=== PATIENT | female | born 2000 | race Two or more races ===

== ENCOUNTER 2025-04-07 12:50 | Inpatient (IN) | payer SELFPAY ==
[2025-04-07 13:14] VITALS: BP 123/82; PULSE 94; RESP 18; TEMP 36.5; O2SAT 95; BMI 14.7
[2025-04-07 16:00] VITALS: PULSE 120; RESP 18; O2SAT 98
[2025-04-07] MEDS: Heparin Injection (Vial) 5,000 UNIT/ML VIAL 5000 UNIT SC (16:08)
[2025-04-07] MEDS: NYSTATIN 500,000 UNIT/5 ML UDC 500000 UNIT PO (16:13)
[2025-04-07] MEDS: Jevity 1.5 1,000 ML 45 ML GT (16:29)
[2025-04-07 21:37] VITALS: BP 112/84; PULSE 140
[2025-04-07] MEDS: Senna/Docusate Sodium 1 Tablet 2 TABLET GT (21:38)
[2025-04-07] MEDS: AMANTADINE HCL 50 MG/5ML 100 MG GT (21:38)
[2025-04-07] MEDS: levETIRAcetam Oral Solution 500 MG/5 ML GT (21:39)
[2025-04-07] MEDS: MELATONIN 10 MG TABLET GT (21:44)
[2025-04-07 22:00] VITALS: BP 112/84; PULSE 140
[2025-04-07] MEDS: CARBOXYMETHYLCELLULOSE SODIUM 15 ML OPHTH DROPS 1 DRP EACH EYE (22:15)
[2025-04-08] MEDS: NYSTATIN 500,000 UNIT/5 ML UDC 500000 UNIT PO ×4 (00:16→17:26)
[2025-04-08 06:12] LABS: Hematocrit 34.6 % (37-47); Hemoglobin 11.7 g/dL (12.0-15.0); Immature Granulocytes Count 0.090 X10^3/uL (0.0-0.0); Mean Corp Hgb Conc 33.8 g/dL (32-36); Mean Corpuscular Volume 88.0 fL (81-99); Mean Platelet Vol. 11.3 fl (6.2-12.0); NRBC Flagged by Analyzer 0 % (0-5); Platelet Count 267 K/mm3 (150-450); RBC Distribution Width CV 13.0 % (11.6-14.6); RBC Distribution Width SD 42.3 fl (35.1-43.9); Red Blood Count 3.93 M/mm3 (4.2-5.4); White Blood Count 11.4 K/mm3 (4.4-11.0)
[2025-04-08 06:58] LABS: Anion Gap 14 (5-15); BUN 14 mg/dL (4-19); BUN/Creat Ratio 32.9 RATIO (10-20); Calcium,Total 9.5 mg/dL (7.6-11.0); Carbon Dioxide 25.4 mmol/L (21.0-32.0); Chloride 98 mmol/L (98-108); Estimated Creatinine Clearance 130.86 ml/min (50-250); Glucose 124 mg/dL (70-99); Potassium 4.0 mmol/L (3.3-5.1)
[2025-04-08 10:34] VITALS: BP 108/72; PULSE 56; RESP 16; TEMP 36.9; O2SAT 98
[2025-04-08] MEDS: Zinc Sulfate 50 mg zinc (220 mg) ORAL capsule GT (10:44)
[2025-04-08] MEDS: Senna/Docusate Sodium 1 Tablet 2 TABLET GT ×2 (10:44→21:22)
[2025-04-08 10:45] VITALS: PULSE 56
[2025-04-08] MEDS: levETIRAcetam Oral Solution 500 MG/5 ML GT ×2 (10:45→21:22)
[2025-04-08] MEDS: Vitamin B Comp W-C Capsule 1 CAP GT (10:45)
[2025-04-08] MEDS: AMANTADINE HCL 50 MG/5ML 100 MG GT ×2 (10:45→21:22)
[2025-04-08] MEDS: Thiamine Hydrochloride 100 MG Tablet GT (10:45)
[2025-04-08] MEDS: Tuberculin,Purif.prot.deriv. 50 TU/ML Vial 0.1 ML ID (10:46)
[2025-04-08] MEDS: Jevity 1.5 1,000 ML 45 ML GT (17:26)
[2025-04-08] MEDS: MELATONIN 10 MG TABLET GT (21:22)
[2025-04-08 21:23] VITALS: BP 139/100; PULSE 142
[2025-04-08 21:50] VITALS: BP 139/100; PULSE 142
[2025-04-08 22:03] VITALS: PULSE 145; RESP 16; O2SAT 99
[2025-04-09] VITALS (7 sets, daily range): BP systolic 114–130; BP diastolic 72–99; PULSE 75–149; RESP 15–17; TEMP 36.7–38.4; O2SAT 96–98
[2025-04-09] MEDS: Zinc Sulfate 50 mg zinc (220 mg) ORAL capsule GT (10:08)
[2025-04-09] MEDS: Thiamine Hydrochloride 100 MG Tablet GT (10:08)
[2025-04-09] MEDS: Vitamin B Comp W-C Capsule 1 CAP GT (10:08)
[2025-04-09] MEDS: AMANTADINE HCL 50 MG/5ML 100 MG GT ×2 (10:09→21:03)
[2025-04-09] MEDS: levETIRAcetam Oral Solution 500 MG/5 ML GT ×2 (10:09→21:03)
[2025-04-09] MEDS: Senna/Docusate Sodium 1 Tablet 2 TABLET GT (10:10)
[2025-04-09 12:04] LABS: Hematocrit 33.6 % (37-47); Hemoglobin 11.4 g/dL (12.0-15.0); Immature Granulocytes Count 0.110 X10^3/uL (0.0-0.0); Mean Corp Hgb Conc 33.9 g/dL (32-36); Mean Corpuscular Volume 86.2 fL (81-99); Mean Platelet Vol. 10.9 fl (6.2-12.0); NRBC Flagged by Analyzer 0 % (0-5); Platelet Count 325 K/mm3 (150-450); RBC Distribution Width CV 12.8 % (11.6-14.6); RBC Distribution Width SD 39.9 fl (35.1-43.9); Red Blood Count 3.90 M/mm3 (4.2-5.4); White Blood Count 10.1 K/mm3 (4.4-11.0)
[2025-04-09] MEDS: CARBOXYMETHYLCELLULOSE SODIUM 15 ML OPHTH DROPS 1 DRP EACH EYE ×2 (12:07→21:25)
[2025-04-09 12:28] LABS: Mucous, Urine 0 SEEN /hpf (<or=2+); Red Blood Cells-Urine 0 SEEN /hpf (0-5); Squamous Epithelial Cells - UA 0 SEEN /hpf (5-10)
[2025-04-09 12:33] LABS: Color, Urine Yellow (Yellow); Glucose, Dipstick Normal (Normal); Ketone-Dipstick Negative (Negative); Leukocyte Esterase-Dipstick Negative /ul (Negative); Nitrite-Dipstick Positive (Negative); Occult Blood-Urine Negative /ul (Negative); Protein-Dipstick 15 mg/dl (Negative); Specific Gravity, Urine 1.010 (1.002-1.030); Urine Bilirubin Dipstick Negative (Negative)
[2025-04-09] MEDS: 0.9% Saline Lock 10 ML Syringe IV ×2 (12:43→21:03)
[2025-04-09] MEDS: Ampicillin/Sulbactam 3 GM in 0.9% Normal Saline (100mL MB+) 100 ML IV ×2 (12:43→17:48)
[2025-04-09] MEDS: 0.9% Normal Saline (250mL Bag) 250 ML 15 ML IV (12:44)
[2025-04-09 13:07] LABS: Anion Gap 13 (5-15); BUN 14 mg/dL (4-19); BUN/Creat Ratio 29.9 RATIO (10-20); Calcium,Total 9.5 mg/dL (7.6-11.0); Carbon Dioxide 25.4 mmol/L (21.0-32.0); Chloride 95 mmol/L (98-108); Estimated Creatinine Clearance 122.51 ml/min (50-250); Glucose 130 mg/dL (70-99); Potassium 3.8 mmol/L (3.3-5.1)
[2025-04-09] MEDS: Jevity 1.5 1,000 ML 45 ML GT (15:38)
[2025-04-09] MEDS: MELATONIN 10 MG TABLET GT (21:05)
[2025-04-10] MEDS: 0.9% Saline Lock 10 ML Syringe IV ×4 (00:01→18:12)
[2025-04-10] MEDS: Ampicillin/Sulbactam 3 GM in 0.9% Normal Saline (100mL MB+) 100 ML IV ×4 (00:30→18:12)
[2025-04-10] MEDS: levETIRAcetam Oral Solution 500 MG/5 ML GT ×2 (09:41→20:10)
[2025-04-10] MEDS: AMANTADINE HCL 50 MG/5ML 100 MG GT ×2 (09:41→20:10)
[2025-04-10] MEDS: Zinc Sulfate 50 mg zinc (220 mg) ORAL capsule GT (09:41)
[2025-04-10] MEDS: Thiamine Hydrochloride 100 MG Tablet GT (09:41)
[2025-04-10] MEDS: Vitamin B Comp W-C Capsule 1 CAP GT (09:42)
[2025-04-10 09:43] VITALS: PULSE 150
[2025-04-10] MEDS: Senna/Docusate Sodium 1 Tablet 2 TABLET GT ×2 (09:50→20:17)
[2025-04-10 11:00] VITALS: BP 150/95; RESP 14; TEMP 37.1; O2SAT 97
[2025-04-10] MEDS: Jevity 1.5 1,000 ML 45 ML GT (14:07)
[2025-04-10 14:54] VITALS: BP 125/85; PULSE 118
[2025-04-10 20:05] VITALS: BP 130/92; PULSE 150; RESP 17; O2SAT 96
[2025-04-10 20:10] VITALS: BP 130/92; PULSE 150
[2025-04-10] MEDS: MELATONIN 10 MG TABLET GT (20:11)
[2025-04-10] MEDS: CARBOXYMETHYLCELLULOSE SODIUM 15 ML OPHTH DROPS 1 DRP EACH EYE (20:12)
[2025-04-11] MEDS: 0.9% Saline Lock 10 ML Syringe IV ×4 (00:01→20:10)
[2025-04-11] MEDS: Ampicillin/Sulbactam 3 GM in 0.9% Normal Saline (100mL MB+) 100 ML IV ×2 (00:03→05:35)
[2025-04-11 00:13] VITALS: PULSE 147; RESP 16; O2SAT 96
[2025-04-11] MEDS: Vitamin B Comp W-C Capsule 1 CAP GT (09:26)
[2025-04-11] MEDS: levETIRAcetam Oral Solution 500 MG/5 ML GT ×2 (09:26→20:08)
[2025-04-11 09:27] VITALS: BP 136/88; PULSE 150
[2025-04-11] MEDS: Zinc Sulfate 50 mg zinc (220 mg) ORAL capsule GT (09:28)
[2025-04-11] MEDS: Thiamine Hydrochloride 100 MG Tablet GT (09:28)
[2025-04-11] MEDS: AMANTADINE HCL 50 MG/5ML 100 MG GT ×2 (09:29→20:07)
[2025-04-11] MEDS: Senna/Docusate Sodium 1 Tablet 2 TABLET GT (09:42)
[2025-04-11 10:54] VITALS: BP 136/88; PULSE 150; RESP 14; TEMP 37.5; O2SAT 93
[2025-04-11 17:36] VITALS: PULSE 150
[2025-04-11] MEDS: Jevity 1.5 1,000 ML 45 ML GT (18:19)
[2025-04-11 20:05] VITALS: BP 122/77; PULSE 119; RESP 16
[2025-04-11 20:08] VITALS: BP 122/77; PULSE 119
[2025-04-11] MEDS: MELATONIN 10 MG TABLET GT (20:08)
[2025-04-12 10:30] VITALS: BP 132/83; PULSE 144; RESP 18; TEMP 36.8; O2SAT 95
[2025-04-12] MEDS: Smx/Tmp Suspension 20 ML/UDC UDC GT ×2 (10:35→22:59)
[2025-04-12] MEDS: levETIRAcetam Oral Solution 500 MG/5 ML GT ×2 (10:35→23:00)
[2025-04-12] MEDS: Vitamin B Comp W-C Capsule 1 CAP GT (10:35)
[2025-04-12] MEDS: AMANTADINE HCL 50 MG/5ML 100 MG GT ×2 (10:37→22:59)
[2025-04-12 10:38] VITALS: BP 132/83; PULSE 144
[2025-04-12] MEDS: Zinc Sulfate 50 mg zinc (220 mg) ORAL capsule GT (10:39)
[2025-04-12] MEDS: Thiamine Hydrochloride 100 MG Tablet GT (10:39)
[2025-04-12] MEDS: Fluconazole Suspension 40 MG/ML 35 ML Bottle 100 MG GT (10:54)
[2025-04-12] MEDS: 0.9% Saline Lock 10 ML Syringe IV ×2 (11:38→23:01)
[2025-04-12 12:00] VITALS: PULSE 110; O2SAT 95
[2025-04-12 15:00] VITALS: PULSE 110; RESP 18; O2SAT 95
[2025-04-12] MEDS: Jevity 1.5 1,000 ML 45 ML GT (18:32)
[2025-04-12] MEDS: CARBOXYMETHYLCELLULOSE SODIUM 15 ML OPHTH DROPS 1 DRP EACH EYE (18:45)
[2025-04-12 22:41] VITALS: BP 132/88; PULSE 149
[2025-04-12 23:00] VITALS: PULSE 149
[2025-04-12] MEDS: MELATONIN 10 MG TABLET GT (23:00)
[2025-04-13] VITALS (9 sets, daily range): BP systolic 110–125; BP diastolic 76–92; PULSE 110–139; RESP 16–17; TEMP 36.8–37; O2SAT 96–98
[2025-04-13] MEDS: Acetaminophen 650 MG/20 ML UDC GT (00:54)
[2025-04-13] MEDS: levETIRAcetam Oral Solution 500 MG/5 ML GT (09:47)
[2025-04-13] MEDS: Vitamin B Comp W-C Capsule 1 CAP GT (09:48)
[2025-04-13] MEDS: Thiamine Hydrochloride 100 MG Tablet GT (09:48)
[2025-04-13] MEDS: AMANTADINE HCL 50 MG/5ML 100 MG GT ×2 (09:48→21:51)
[2025-04-13] MEDS: Fluconazole Suspension 40 MG/ML 35 ML Bottle 100 MG GT (09:48)
[2025-04-13] MEDS: Zinc Sulfate 50 mg zinc (220 mg) ORAL capsule GT (09:49)
[2025-04-13] MEDS: Smx/Tmp Suspension 20 ML/UDC UDC GT ×2 (09:54→21:51)
[2025-04-13] MEDS: Jevity 1.5 1,000 ML 45 ML GT (18:14)
[2025-04-13] MEDS: levETIRAcetam Oral Solution 500 MG/5 ML 250 MG GT (21:51)
[2025-04-13] MEDS: MELATONIN 10 MG TABLET GT (21:52)
[2025-04-13] MEDS: CARBOXYMETHYLCELLULOSE SODIUM 15 ML OPHTH DROPS 1 DRP EACH EYE (21:53)
[2025-04-14 01:58] VITALS: PULSE 110; RESP 16; O2SAT 98
[2025-04-14] MEDS: AMANTADINE HCL 50 MG/5ML 100 MG GT ×2 (09:55→21:05)
[2025-04-14] MEDS: Fluconazole Suspension 40 MG/ML 35 ML Bottle 100 MG GT (09:57)
[2025-04-14] MEDS: Smx/Tmp Suspension 20 ML/UDC UDC GT ×2 (09:57→21:06)
[2025-04-14 09:59] VITALS: BP 116/79; PULSE 118
[2025-04-14] MEDS: levETIRAcetam Oral Solution 500 MG/5 ML 250 MG GT ×2 (09:59→21:06)
[2025-04-14 14:05] VITALS: BP 116/79; PULSE 118; RESP 18; TEMP 36.6; O2SAT 95
[2025-04-14] MEDS: Jevity 1.5 1,000 ML 45 ML GT (18:50)
[2025-04-14 21:07] VITALS: BP 109/73; PULSE 119
[2025-04-14] MEDS: MELATONIN 10 MG TABLET GT (21:07)
[2025-04-15 07:05] LABS: Hematocrit 37.3 % (37-47); Hemoglobin 12.4 g/dL (12.0-15.0); Immature Granulocytes Count 0.290 X10^3/uL (0.0-0.0); Mean Corp Hgb Conc 33.2 g/dL (32-36); Mean Corpuscular Volume 87.6 fL (81-99); Mean Platelet Vol. 10.3 fl (6.2-12.0); NRBC Flagged by Analyzer 0 % (0-5); Platelet Count 476 K/mm3 (150-450); RBC Distribution Width CV 13.0 % (11.6-14.6); RBC Distribution Width SD 41.0 fl (35.1-43.9); Red Blood Count 4.26 M/mm3 (4.2-5.4); White Blood Count 9.8 K/mm3 (4.4-11.0)
[2025-04-15 07:34] LABS: Anion Gap 14 (5-15); BUN 18 mg/dL (4-19); BUN/Creat Ratio 34.7 RATIO (10-20); Calcium,Total 9.5 mg/dL (7.6-11.0); Carbon Dioxide 23.0 mmol/L (21.0-32.0); Chloride 99 mmol/L (98-108); Estimated Creatinine Clearance 108.64 ml/min (50-250); Glucose 195 mg/dL (70-99); Potassium 3.8 mmol/L (3.3-5.1)
[2025-04-15] MEDS: Tuberculin,Purif.prot.deriv. 50 TU/ML Vial 0.1 ML ID (08:52)
[2025-04-15] MEDS: levETIRAcetam Oral Solution 500 MG/5 ML 250 MG GT ×2 (10:31→20:51)
[2025-04-15 10:32] VITALS: BP 126/88; PULSE 143
[2025-04-15] MEDS: Smx/Tmp Suspension 20 ML/UDC UDC GT ×2 (10:33→20:51)
[2025-04-15] MEDS: Fluconazole Suspension 40 MG/ML 35 ML Bottle 100 MG GT (10:36)
[2025-04-15 11:05] VITALS: BP 126/88; PULSE 143; RESP 18; TEMP 36.6; O2SAT 96
[2025-04-15 12:00] VITALS: BP 108/79; PULSE 101
[2025-04-15] MEDS: Sodium Chloride 0.65% 1 SPRAY SPRAY.BTL 2 SPRAY NASAL (14:01)
[2025-04-15 20:45] VITALS: BP 122/85; PULSE 124; RESP 16; O2SAT 98
[2025-04-15 20:53] VITALS: BP 122/85; PULSE 124
[2025-04-15] MEDS: MELATONIN 10 MG TABLET GT (20:54)
[2025-04-15] MEDS: CARBOXYMETHYLCELLULOSE SODIUM 15 ML OPHTH DROPS 1 DRP EACH EYE (20:55)
[2025-04-15 21:00] VITALS: PULSE 124; RESP 16; O2SAT 98
[2025-04-15] MEDS: Jevity 1.5 1,000 ML 45 ML GT (23:48)
[2025-04-16 05:32] LABS: Hematocrit 38.4 % (37-47); Hemoglobin 12.8 g/dL (12.0-15.0); Immature Granulocytes Count 0.230 X10^3/uL (0.0-0.0); Mean Corp Hgb Conc 33.3 g/dL (32-36); Mean Corpuscular Volume 87.5 fL (81-99); Mean Platelet Vol. 10.2 fl (6.2-12.0); NRBC Flagged by Analyzer 0 % (0-5); Platelet Count 493 K/mm3 (150-450); RBC Distribution Width CV 12.9 % (11.6-14.6); RBC Distribution Width SD 41.1 fl (35.1-43.9); Red Blood Count 4.39 M/mm3 (4.2-5.4); White Blood Count 10.6 K/mm3 (4.4-11.0)
[2025-04-16 05:54] LABS: Anion Gap 13 (5-15); BUN 18 mg/dL (4-19); BUN/Creat Ratio 37.4 RATIO (10-20); Calcium,Total 9.4 mg/dL (7.6-11.0); Carbon Dioxide 25.5 mmol/L (21.0-32.0); Chloride 99 mmol/L (98-108); Estimated Creatinine Clearance 119.96 ml/min (50-250); Glucose 212 mg/dL (70-99); Potassium 3.9 mmol/L (3.3-5.1)
[2025-04-16 10:00] VITALS: BP 115/82; PULSE 129; RESP 18; TEMP 36.8; O2SAT 92
[2025-04-16] MEDS: CARBOXYMETHYLCELLULOSE SODIUM 15 ML OPHTH DROPS 1 DRP EACH EYE ×2 (10:36→21:11)
[2025-04-16] MEDS: Fluconazole Suspension 40 MG/ML 35 ML Bottle 100 MG GT (10:39)
[2025-04-16] MEDS: levETIRAcetam Oral Solution 500 MG/5 ML 250 MG GT ×2 (10:39→21:09)
[2025-04-16] MEDS: Smx/Tmp Suspension 20 ML/UDC UDC GT ×2 (10:39→21:09)
[2025-04-16 10:40] VITALS: BP 115/82; PULSE 129
[2025-04-16] MEDS: Senna/Docusate Sodium 1 Tablet 2 TABLET GT ×2 (10:50→21:15)
[2025-04-16 11:00] VITALS: PULSE 111; RESP 18; O2SAT 92
[2025-04-16 16:00] VITALS: PULSE 111
[2025-04-16 21:05] VITALS: BP 119/79; PULSE 110; RESP 16; O2SAT 98
[2025-04-16 21:10] VITALS: BP 119/79; PULSE 110
[2025-04-16] MEDS: MELATONIN 10 MG TABLET GT (21:11)
[2025-04-17] MEDS: Jevity 1.5 1,000 ML 45 ML GT (04:22)
[2025-04-17 06:39] LABS: Hematocrit 39.6 % (37-47); Hemoglobin 13.2 g/dL (12.0-15.0); Immature Granulocytes Count 0.230 X10^3/uL (0.0-0.0); Mean Corp Hgb Conc 33.3 g/dL (32-36); Mean Corpuscular Volume 88.0 fL (81-99); Mean Platelet Vol. 10.4 fl (6.2-12.0); NRBC Flagged by Analyzer 0 % (0-5); Platelet Count 467 K/mm3 (150-450); RBC Distribution Width CV 13.0 % (11.6-14.6); RBC Distribution Width SD 41.8 fl (35.1-43.9); Red Blood Count 4.50 M/mm3 (4.2-5.4); White Blood Count 10.7 K/mm3 (4.4-11.0)
[2025-04-17 06:58] LABS: Anion Gap 12 (5-15); BUN 20 mg/dL (4-19); BUN/Creat Ratio 42.7 RATIO (10-20); Calcium,Total 9.8 mg/dL (7.6-11.0); Carbon Dioxide 27.1 mmol/L (21.0-32.0); Chloride 99 mmol/L (98-108); Estimated Creatinine Clearance 122.51 ml/min (50-250); Glucose 200 mg/dL (70-99); Potassium 4.4 mmol/L (3.3-5.1)
[2025-04-17 09:41] VITALS: BP 122/82; PULSE 117; RESP 18; TEMP 36.3; O2SAT 96
[2025-04-17] MEDS: Senna/Docusate Sodium 1 Tablet 2 TABLET GT ×2 (09:42→21:28)
[2025-04-17 09:44] VITALS: PULSE 117
[2025-04-17] MEDS: Fluconazole Suspension 40 MG/ML 35 ML Bottle 100 MG GT (09:44)
[2025-04-17 21:00] VITALS: PULSE 119; O2SAT 94
[2025-04-17 21:27] VITALS: BP 117/84; PULSE 119
[2025-04-17 21:29] VITALS: PULSE 119
[2025-04-17] MEDS: MELATONIN 10 MG TABLET GT (21:30)
[2025-04-18] MEDS: Jevity 1.5 1,000 ML 45 ML GT (03:35)
[2025-04-18 05:58] LABS: Hematocrit 38.5 % (37-47); Hemoglobin 13.1 g/dL (12.0-15.0); Immature Granulocytes Count 0.150 X10^3/uL (0.0-0.0); Mean Corp Hgb Conc 34.0 g/dL (32-36); Mean Corpuscular Volume 87.1 fL (81-99); Mean Platelet Vol. 10.2 fl (6.2-12.0); NRBC Flagged by Analyzer 0 % (0-5); Platelet Count 434 K/mm3 (150-450); RBC Distribution Width CV 12.9 % (11.6-14.6); RBC Distribution Width SD 40.6 fl (35.1-43.9); Red Blood Count 4.42 M/mm3 (4.2-5.4); White Blood Count 10.2 K/mm3 (4.4-11.0)
[2025-04-18 06:23] LABS: Anion Gap 11 (5-15); BUN 17 mg/dL (4-19); BUN/Creat Ratio 42.1 RATIO (10-20); Calcium,Total 9.4 mg/dL (7.6-11.0); Carbon Dioxide 27.6 mmol/L (21.0-32.0); Chloride 96 mmol/L (98-108); Estimated Creatinine Clearance 147.64 ml/min (50-250); Glucose 162 mg/dL (70-99); Potassium 3.8 mmol/L (3.3-5.1)
[2025-04-18 10:00] VITALS: BP 116/82; PULSE 107; RESP 18; TEMP 36.4; O2SAT 96
[2025-04-18 10:02] VITALS: PULSE 107
[2025-04-18] MEDS: Fluconazole Suspension 40 MG/ML 35 ML Bottle 100 MG GT (10:02)
[2025-04-18] MEDS: Senna/Docusate Sodium 1 Tablet 2 TABLET GT ×2 (10:03→21:12)
[2025-04-18 21:10] VITALS: BP 125/84; PULSE 115
[2025-04-18 21:11] VITALS: PULSE 115
[2025-04-18] MEDS: MELATONIN 3 MG TABLET GT (21:11)
[2025-04-19] MEDS: Jevity 1.5 1,000 ML 45 ML GT (02:18)
[2025-04-19 06:28] LABS: Hematocrit 39.6 % (37-47); Hemoglobin 13.0 g/dL (12.0-15.0); Immature Granulocytes Count 0.140 X10^3/uL (0.0-0.0); Mean Corp Hgb Conc 32.8 g/dL (32-36); Mean Corpuscular Volume 87.8 fL (81-99); Mean Platelet Vol. 10.3 fl (6.2-12.0); NRBC Flagged by Analyzer 0 % (0-5); Platelet Count 409 K/mm3 (150-450); RBC Distribution Width CV 12.9 % (11.6-14.6); RBC Distribution Width SD 41.5 fl (35.1-43.9); Red Blood Count 4.51 M/mm3 (4.2-5.4); White Blood Count 9.7 K/mm3 (4.4-11.0)
[2025-04-19 07:03] LABS: Anion Gap 12 (5-15); BUN 15 mg/dL (4-19); BUN/Creat Ratio 37.7 RATIO (10-20); Calcium,Total 9.6 mg/dL (7.6-11.0); Carbon Dioxide 29.2 mmol/L (21.0-32.0); Chloride 97 mmol/L (98-108); Estimated Creatinine Clearance 140.44 ml/min (50-250); Glucose 164 mg/dL (70-99); Potassium 3.9 mmol/L (3.3-5.1)
[2025-04-19 09:04] VITALS: PULSE 111
[2025-04-19] MEDS: CARBOXYMETHYLCELLULOSE SODIUM 15 ML OPHTH DROPS 1 DRP EACH EYE (09:12)
[2025-04-19 09:15] VITALS: BP 115/76; PULSE 111; RESP 17; TEMP 36.3; O2SAT 100
[2025-04-19 10:00] VITALS: PULSE 110
[2025-04-19 20:05] VITALS: BP 122/85; PULSE 129; RESP 16; O2SAT 99
[2025-04-19 20:07] VITALS: BP 122/85; PULSE 129
[2025-04-19] MEDS: MELATONIN 3 MG TABLET GT (20:07)
[2025-04-19] MEDS: Senna/Docusate Sodium 1 Tablet 2 TABLET GT (20:12)
[2025-04-20] MEDS: Jevity 1.5 1,000 ML 45 ML GT (06:25)
[2025-04-20 10:08] VITALS: BP 123/80; PULSE 130
[2025-04-20] MEDS: Fluconazole Suspension 40 MG/ML 35 ML Bottle 200 MG GT (10:14)
[2025-04-20 10:25] VITALS: BP 123/80; PULSE 130; RESP 16; TEMP 36.4; O2SAT 99
[2025-04-20] MEDS: Sodium Chloride 0.65% 1 SPRAY SPRAY.BTL 2 SPRAY NASAL (10:33)
[2025-04-20] MEDS: CARBOXYMETHYLCELLULOSE SODIUM 15 ML OPHTH DROPS 1 DRP EACH EYE (10:33)
[2025-04-20 11:55] VITALS: PULSE 109; RESP 16; O2SAT 99
[2025-04-20 15:56] VITALS: BMI 14.3
[2025-04-20 16:03] VITALS: BMI 14.3
[2025-04-20 16:24] LABS: Hematocrit 38.5 % (37-47); Hemoglobin 12.9 g/dL (12.0-15.0); Immature Granulocytes Count 0.090 X10^3/uL (0.0-0.0); Mean Corp Hgb Conc 33.5 g/dL (32-36); Mean Corpuscular Volume 86.7 fL (81-99); Mean Platelet Vol. 10.3 fl (6.2-12.0); NRBC Flagged by Analyzer 0 % (0-5); POSITIVE DIFFERENTIAL YES; Platelet Count 308 K/mm3 (150-450); RBC Distribution Width CV 12.7 % (11.6-14.6); RBC Distribution Width SD 39.8 fl (35.1-43.9); Red Blood Count 4.44 M/mm3 (4.2-5.4); White Blood Count 8.1 K/mm3 (4.4-11.0)
[2025-04-20 16:47] LABS: AST(SGOT) 22 U/L (<=31); Alanine Aminotransfer ALT/SGPT 38 U/L (<=34); Albumin, Serum 3.8 g/dL (3.5-5.0); Alkaline Phosphatase 103 U/L (35-104); Anion Gap 11 (5-15); BUN 11 mg/dL (4-19); BUN/Creat Ratio 33.7 RATIO (10-20); Calcium,Total 9.2 mg/dL (7.6-11.0); Carbon Dioxide 29.4 mmol/L (21.0-32.0); Chloride 96 mmol/L (98-108); Estimated Creatinine Clearance 170.42 ml/min (50-250); Globulin 3.7 g/dL (2.2-4.2); Glucose 122 mg/dL (70-99); Potassium 3.9 mmol/L (3.3-5.1)
[2025-04-20 19:48] VITALS: BP 116/81; PULSE 128
[2025-04-20] MEDS: MELATONIN 10 MG TABLET 5 MG GT (19:49)
[2025-04-20 22:34] LABS: Red Blood Cells-Urine 0 SEEN /hpf (0-5); Squamous Epithelial Cells - UA 0 SEEN /hpf (5-10)
[2025-04-20 22:36] LABS: Color, Urine Yellow (Yellow); Glucose, Dipstick Normal (Normal); Ketone-Dipstick Negative (Negative); Leukocyte Esterase-Dipstick Negative /ul (Negative); Nitrite-Dipstick Negative (Negative); Occult Blood-Urine Negative /ul (Negative); Protein-Dipstick 15 mg/dl (Negative); Specific Gravity, Urine 1.015 (1.002-1.030); Urine Bilirubin Dipstick Negative (Negative)
[2025-04-20 22:41] LABS: Mucous, Urine RARE /hpf (<or=2+)
[2025-04-21 04:57] VITALS: BMI 14.6
[2025-04-21] MEDS: Fluconazole Suspension 40 MG/ML 35 ML Bottle 200 MG GT (09:45)
[2025-04-21 09:47] VITALS: PULSE 117
[2025-04-21] MEDS: Jevity 1.5 1,000 ML 45 ML GT (09:50)
[2025-04-21] MEDS: CARBOXYMETHYLCELLULOSE SODIUM 15 ML OPHTH DROPS 1 DRP EACH EYE (09:58)
[2025-04-21 10:06] VITALS: BP 115/75; PULSE 117; RESP 16; TEMP 36.6; O2SAT 97
== END 2025-04-21 11:30 | disposition short-term general hospital (02) | DRG 64 ==
PROVIDERS: Admitting Provider Family Medicine Geriatric Medicine; PCP Student in an Organized Health Care Education/Training Program; Referring Provider Family Medicine Geriatric Medicine; Visit Provider Family Medicine Geriatric Medicine
DX: I61.8 Other nontraumatic intracerebral hemorrhage (principal); J69.0 Pneumonitis due to inhalation of food and vomit; E44.0 Moderate protein-calorie malnutrition; B37.0 Candidal stomatitis; E51.9 Thiamine deficiency, unspecified; Z68.1 Body mass index [BMI] 19.9 or less, adult; N39.0 Urinary tract infection, site not specified; I67.1 Cerebral aneurysm, nonruptured; G40.909 Epilepsy, unspecified, not intractable, without status epilepticus; I69.820 Aphasia following other cerebrovascular disease; Z93.1 Gastrostomy status; K21.9 Gastro-esophageal reflux disease without esophagitis; I60.9 Nontraumatic subarachnoid hemorrhage, unspecified; B37.9 Candidiasis, unspecified; G47.00 Insomnia, unspecified; Z79.01 Long term (current) use of anticoagulants; Z79.899 Other long term (current) drug therapy; Z98.2 Presence of cerebrospinal fluid drainage device
CPT/HCPCS: 36415; 71046; 74018; 80048; 80053; 81001; 82962; 85025; 87077; 87086; 87088; 87186; 87633; 87811; 92507; 92523; 92526; 92610; 97110; 97116; 97163; 97166; 97530; 97535; 97802; A4216; J0295

== ENCOUNTER → 2025-04-08 | Outpatient (CLI) | payer SELFPAY ==
--- NOTE | 2025-04-08 12:42 | CT_ITS ---
PROCEDURE: BRAIN/HEAD WITHOUT CONTRAST 04/08/2025 REASON FOR EXAM: AVM History of prior occipital craniotomy and repair of a arteriovenous malformation. TECHNIQUE: Procedure Code: CTBR Modality: CT Procedure: BRAIN/HEAD WITHOUT CONTRAST Coronal and Sagittal reconstruction series were provided. One or more dose reduction techniques were used (e.g., Automated exposure control, adjustment of the mA and/or kV according to patient size, use of iterative reconstruction technique. RADIATION DOSE SUMMARY: CTDlvol: 44.99 mGy DLP: 846.73 mGycm COMPARISON: None FINDINGS: Brain: The patient is status post occipital craniotomy with the reconstructive surgical changes. The patient is status post surgical intervention in the posterior fossa with evidence of a 2.7 cm by 3.1 cm CSF collection most likely secondary to postoperative resection. No evidence of mass effect or acute bleed at this time. A shunt tube is seen within the anterior horn of the right ventricle. No evidence of hydrocephalus. CSF Spaces: No evidence of cerebral atrophy. Sinuses/Mastoids: Clear at visualized levels Bones: Prior occipital craniotomy. CT/Brain/Head without Contrast IMPRESSION: Status post surgical intervention involving the posterior fossa as described. Postoperative cystic change seen in the posterior fossa. No evidence of acute hemorrhage or mass effect at this time. Reading Location: [place] [id number]
== END | disposition home or self-care (01) ==
PROVIDERS: PCP Student in an Organized Health Care Education/Training Program; Referring Provider Family Medicine Geriatric Medicine; Visit Provider Family Medicine Geriatric Medicine
DX: Q27.30 Arteriovenous malformation, site unspecified (principal)
CPT/HCPCS: 70450

== ENCOUNTER → 2025-04-20 | Outpatient (CLI) | payer SELFPAY ==
--- OUTSIDE RECORDS SUMMARY | 2025-04-20 19:41 | XMS RPT_ITS | CCD ---
Author Organization [facility] Care Team Providers Care Manager Transition Name Role Phone COVERDALE, ANASTASIA LOU Admitting Unavailable COVERDALE, ANASTASIA LOU Attending Unavailable COVERDAANASTASIA MATIAS MD Primary Care Unavailable SARAH MURPHY MD Attending Unavailable SARAH MURPHY MD Primary Care Unavailable SARAH MURPHY MD Admitting Unavailable Generic Provider MD, No Assigned Pcp Primary Car e Provider Unavailable DAIJA CHILDERS Referring Unavailabl e KERA HARLEY Referring Unavailable GENERIC PROVIDER, NO ASSIGNED PCP Primary Care Unavailable DAIJA CHILDERS Referring Unavailabl e NAVDEEP PALENCIA Referring Unavailable ABARCA-HANVANESSA DAIJA Admitting Unavailabl e TEVIN-DAIJA MEJIA Attending Unavailabl e GENERIC PROVIDER, NO ASSIGNED PCP Primary Care Unavailable Carlos, Benjy Chi Attending Unavailable Carlos, Benjy Chi Referring Unavailable Sarah Murphy Primary Care Unavailable Carlos, Benjy Chi Referring Unavailable Sarah Murphy Primary Care Unavailable Carlos, Benjy Chi Admitting Unavailable Carlos, Benjy Chi Attending Unavailable Medications Current Medications Medication Drug Class(es) Dates Sig (Normalized) Sig (Original) acetaminophen 32 mg/ml oral solution (1 source) Start: 025 take 20.3 mL by mouth every six hours for pain acetaminophen (Tylenol) 650 mg/20.3 mL solution oral liquid Indications: AVM (arteriovenous malformation) ([facility]) Take 20.3 mL (650 mg) by g-tube every 6 hours if needed for pain. 03/31/2025 Active amantadine hydrochloride 10 mg/ml oral solution (1 source) Influenza A M2 Protein Inhibitor Start: amantadine (Symmetrel) 50 mg/5 mL solution Indications: AVM (arteriovenous malformation) ([facility]) Take 10 mL (100 mg) by g-tube every 12 hours. Assess need for medication often while assessing patient's alert and responsiveness. 03/31/2025 Active bisacodyl 10 mg rectal suppository (1 source) Stimulant Laxative Start: bisacodyl (Dulcolax) 10 mg suppository Indications: AVM (arteriovenous malformation) ([facility]) Insert 1 suppository (10 mg) into the rectum once daily as needed for constipation. 03/31/2025 Active carboxymethylcellulose sodium 5 mg/ml ophthalmic solution (1 source) carboxymethylcel lulose (Refresh Plus) 0.5 % ophthalmic solution 1 drop if needed for dry eyes. Active docusate sodium 50 mg / sennosides, nursing home 8.6 mg oral tablet (1 source) Start: sennosides-docusate sodium (Britany-Colace) 8.6-50 mg tablet Indications: AVM (arteriovenous malformation) ([facility]) Take 2 tablets by g-tube 2 times a day. 03/31/2025 Active esomeprazole 40 mg granules for oral suspension (1 source) Proton Pump Inhibitor Start: take 40 mg by mouth twice daily esomeprazole (NexIUM) 40 mg packet Indications: AVM (arteriovenous malformation) ([facility]) Take 40 mg by mouth 2 times a day. Via Peg Tube 03/31/2025 Active 1 ml heparin sodium, porcine 5000 unt/ml injection (1 source) Unfractionated Heparin, Anti-coagulant Start: inject 1 mL by subcutaneous injection every eight hours heparin sodium,porcine (heparin, porcine,) 5,000 unit/mL injection Indications: AVM (arteriovenous malformation) ([facility]) Inject 1 mL (5,000 Units) under the skin every 8 hours. Until ambulatory 03/31/2025 Active insulin lispro 100 unt/ml injectable solution (1 source) Insulin Analog Start: insulin lispro 100 unit/mL injection Indications: AVM (arteriovenous malformation) ([facility]) Inject 0-5 Units under the skin every 6 hours. Take as directed per insulin instructions. 03/31/2025 Active levETIRAcetam 500 mg oral tablet (1 source) Start: levETIRAcetam (Keppra) 500 mg tablet Indications: AVM (arteriovenous malformation) ([facility]) Take 1 tablet (500 mg) by g-tube 2 times a day. CONTINUE UNTIL INSTRUCTED TO STOP BY NEUROSURGERY OR NEUROLOGY. PLEASE DISCHARGE WITH SCRIPT WITH 6 REFILLS 03/31/2025 Active LORazepam 1 mg oral tablet (1 source) Benzodiazepine Start: LORazepam (Ativan) 1 mg tablet Indications: AVM (arteriovenous malformation) ([facility]) Take 1 tablet (1 mg) by g-tube every 6 hours if needed (nausea/vomiting and tachycardia) for up to 14 days. 30 tablet 03/31/2025 Active metoclopramide 5 mg oral tablet (1 source) Dopamine-2 Receptor Antagonist Start: End: metoclopramide (Reglan) 5 mg tablet Indications: AVM (arteriovenous malformation) ([facility]) Take 1 tablet (5 mg) by g-tube 3 times a day. Stop medication on 04/29/2025. 03/31/2025 04/29/2025 Active ondansetron 4 mg oral tablet (1 source) Serotonin-3 Receptor Antagonist Start: ondansetron (Zofran) 4 mg tablet Indications: AVM (arteriovenous malformation) ([facility]) Take 1 tablet (4 mg) by g-tube every 6 hours if needed for nausea or vomiting. 03/31/2025 Active polyethylene glycol 3350 43630 mg powder for oral solution (1 source) Osmotic Laxative Start: polyethylene glycol (Glycolax, Miralax) 17 gram packet Indications: AVM (arteriovenous malformation) ([facility]) Take 17 g by g-tube 2 times a day. 03/31/2025 Active vitamin B complex-vitamin C-folic acid (Nephrocaps) 1 mg capsule (1 source) Start: vitamin B complex-vitamin C-folic acid (Nephrocaps) 1 mg capsule Indications: AVM (arteriovenous malformation) ([facility]) Take 1 capsule by g-tube once daily in the morning. Take before meals. 03/31/2025 Active Problems Problem Classification Problem Date Documented Da te Episodic/Chronic Acute cerebrovascular disease (5 sources) Nontraumatic subarachnoid hemorrhage, unspecified; Translations: [Nontraumatic subarachnoid hemorrhage from other intracranial arteries] Onset: 03-03-2025 Chronic Cardiac and circulatory congenital anomalies (7 sources) Arteriovenous malformation, site unspecified; Translations: [Vascular disorder] Onset: 03-03-2025 Chronic Other circulatory disease (2 sources) Arteriovenous fistula, acquired; Translations: [Arteriovenous fistula, acquired] Onset: 03-03-2025 Chronic Other connective tissue disease (1 source) Muscle weakness (generalized); Translations: [Muscle weakness (generalized)] Onset: 04-01-2025 Episodic Other connective tissue disease (2 sources) Other specified soft tissue disorders; Translations: [Other specified soft tissue disorders] Onset: 03-03-2025 Episodic Other nervous system disorders (1 source) Hydrocephalus; Translations: [Hydrocephalus, unspecified] Onset: 03-03-2025 03-19-2025 Chronic Other nervous system disorders (2 sources) Hydrocephalus, unspecified; Translations: [Hydrocephalus, unspecified (Multi)] Onset: 03-03-2025 Chronic Residual codes; unclassified (2 sources) Localized edema; Translations: [Localized edema] Onset: 03-03-2025 Episodic Unclassified (1 source) Autogenerated Problem Onset: 03-04-2025 03-04-2025 Results Test Name Value Interpretation Reference Range Facility Basic Metabolic Profile (BMP )on 04-19-2025 BUN/CRE 37.7 RATIO High 10-20 [facility] Comment on above: Performed By: #### L 500.2500, L100.0100 #### [facility] [address] [place], [address] Calcium [Mass/Vol] 9.6 mg/dL Normal 7.6-11.0 [facility] Comment on above: Performed By: #### L 500.2500, L100.0100 #### [facility] [address] [place], [address] Chloride [Moles/Vol] 97 mmol/L Low 98-108 [facility] Comment on above: Performed By: #### L 500.2500, L100.0100 #### [facility] [address] [place], [address] CO2 [Moles/Vol] 29.2 mmol/L Normal 21.0-32.0 [facility] Comment on above: Performed By: #### L 500.2500, L100.0100 #### [facility] [address] [place], [address] Creatinine [Mass/Vol] 0.41 mg/dL Low 0.70-1.20 [facility] Comment on above: Performed By: #### L 500.2500, L100.0100 #### [facility] [address] [place], [address] ECRCL 140.44 ml/min Normal 50-250 [facility] Comment on above: Performed By: #### L 500.2500, L100.0100 #### [facility] [address] [place], [address] GAP 12 Normal 5-15 [facility] Comment on above: Performed By: #### L 500.2500, L100.0100 #### [facility] [address] [place], [address] GFR/1.73 sq M.predicted among non-blacks MDRD (S/P/Bld) [Vol rate/Area] 143 mL/min/{1.73_m2} Normal >60 [facility] Comment on above: Result Comment: mL/m in/1.73m2 CKD-EPI Creatinine Equation (2020) Performed By: #### L 500.2500, L100.0100 #### [facility] [address] [place], [address] Glucose [Mass/Vol] 164 mg/dL High 70-99 [facility] Comment on above: Performed By: #### L 500.2500, L100.0100 #### [facility] [address] [place], [address] Potassium [Moles/Vol] 3.9 mmol/L Normal 3.3-5.1 [facility] Comment on above: Performed By: #### L 500.2500, L100.0100 #### [facility] [address] [place], [address] Sodium [Moles/Vol] 138 mmol/L Normal 133-145 [facility] Comment on above: Performed By: #### L 500.2500, L100.0100 #### [facility] [address] [place], [address] Urea nitrogen [Mass/Vol] 15 mg/dL Normal 4-19 [facility] Comment on above: Performed By: #### L 500.2500, L100.0100 #### [facility] [address] [place], [address] Bedside Glucoseon 04-19-2025 FINGERSTICK GLU 154 mg/dL High 74-106 [facility] Comment on above: Result Comment: BONNIE AL OF PATIENT CARE PER NURSING PROTOCOL Performed By: #### L 501.080 #### [facility] [address] [place], [address] CBC W/Diff, Automatedon 03-25 Absolute Lymph 1.17 X10 3/uL Normal 0.83-4.51 [facility] Comment on above: Performed By: #### L 500.2500, L100.0100 #### [facility] [address] [place], [address] Absolute Neut 7.6 X10 3/uL Normal 2.0-7.7 [facility] Comment on above: Performed By: #### L 500.2500, L100.0100 #### [facility] [address] [place], [address] Basophils/100 WBC (Bld) 0.7 % Normal 0-1 [facility] Comment on above: Performed By: #### L 500.2500, L100.0100 #### [facility] [address] [place], [address] Eosinophils/100 WBC (Bld) 0.9 % Normal 0-5 [facility] Comment on above: Performed By: #### L 500.2500, L100.0100 #### [facility] [address] [place], [address] Erythrocyte distribution width (RBC) [Ratio] 12.9 % Normal 11.6-14.6 [facility] Comment on above: Performed By: #### L 500.2500, L100.0100 #### [facility] [address] [place], [address] Hematocrit (Bld) [Volume fraction] 39.6 % Normal 37-47 [facility] Comment on above: Performed By: #### L 500.2500, L100.0100 #### [facility] [address] [place], [address] Hemoglobin (Bld) [Mass/Vol] 13.0 g/dL Normal 12.0-15.0 [facility] Comment on above: Performed By: #### L 500.2500, L100.0100 #### [facility] [address] [place], [address] IG% 1.400 High 0.0-0.9 [facility] Comment on above: Result Comment: IG% - Immature Granulocytes (promyelocytes, myelocytes and metamyelocytes) > 1% indicates that a LEFT SHIFT is Present. Performed By: #### L 500.2500, L100.0100 #### [facility] [address] [place], [address] Lymphocytes/100 WBC (Bld) 12.1 % Low 19-41 [facility] Comment on above: Performed By: #### L 500.2500, L100.0100 #### [facility] [address] [place], [address] MCH (RBC) [Entitic mass] 28.8 pg Normal 27.0-32.0 [facility] Comment on above: Performed By: #### L 500.2500, L100.0100 #### [facility] [address] [place], [address] MCHC (RBC) [Mass/Vol] 32.8 g/dL Normal 32-36 [facility] Comment on above: Performed By: #### L 500.2500, L100.0100 #### [facility] [address] [place], [address] MCV (RBC) [Entitic vol] 87.8 fL Normal 81-99 [facility] Comment on above: Performed By: #### L 500.2500, L100.0100 #### [facility] [address] [place], [address] Monocytes/100 WBC (Bld) 6.0 % Normal 0-10 [facility] Comment on above: Performed By: #### L 500.2500, L100.0100 #### [facility] [address] [place], [address] Neutrophils/100 WBC (Bld) 78.9 % High 47-70 [facility] Comment on above: Performed By: #### L 500.2500, L100.0100 #### [facility] [address] [place], [address] Nucleated RBC (Bld) [#/Vol] 0 10*3/uL Normal 0-5 [facility] Comment on above: Performed By: #### L 500.2500, L100.0100 #### [facility] [address] [place], [address] Platelet mean volume (Bld) [Entitic vol] 10.3 fL Normal 6.2-12.0 [facility] Comment on above: Performed By: #### L 500.2500, L100.0100 #### [facility] [address] [place], [address] Platelets (Bld) [#/Vol] 409 10*3/uL Normal 150-450 [facility] Comment on above: Performed By: #### L 500.2500, L100.0100 #### [facility] [address] [place], [address] RBC (Bld) [#/Vol] 4.51 10*6/uL Normal 4.2-5.4 [facility] Comment on above: Performed By: #### L 500.2500, L100.0100 #### [facility] [address] [place], [address] RDW SD 41.5 fl Normal 35.1-43.9 [facility] Comment on above: Performed By: #### L 500.2500, L100.0100 #### [facility] [address] [place], [address] WBC (Bld) [#/Vol] 9.7 10*3/uL Normal 4.4-11.0 [facility] Comment on above: Performed By: #### L 500.2500, L100.0100 #### [facility] [address] [place], [address] Absolute Neut Normal 2.0-7.7 [facility] Comment on above: Result Comment: DUPL ICATE- SEE H35 Performed By: #### L 500.2500, L100.0100 #### [facility] [address] [place], [address] HCT Normal 37-47 [facility] Comment on above: Result Comment: DUPL ICATE- SEE H35 Performed By: #### L 500.2500, L100.0100 #### [facility] [address] [place], [address] HGB Normal 12.0-15.0 [facility] Comment on above: Result Comment: DUPL ICATE- SEE H35 Performed By: #### L 500.2500, L100.0100 #### [facility] [address] [place], [address] MCH Normal 27.0-32.0 [facility] Comment on above: Result Comment: DUPL ICATE- SEE H35 Performed By: #### L 500.2500, L100.0100 #### [facility] [address] [place], [address] MCHC Normal 32-36 [facility] Comment on above: Result Comment: DUPL ICATE- SEE H35 Performed By: #### L 500.2500, L100.0100 #### [facility] [address] [place], [address] MCV Normal 81-99 [facility] Comment on above: Result Comment: DUPL ICATE- SEE H35 Performed By: #### L 500.2500, L100.0100 #### [facility] [address] [place], [address] NEUT% Normal 47-70 [facility] Comment on above: Result Comment: DUPL ICATE- SEE H35 Performed By: #### L 500.2500, L100.0100 #### [facility] [address] [place], [address] PLT Normal 150-450 [facility] Comment on above: Result Comment: DUPL ICATE- SEE H35 Performed By: #### L 500.2500, L100.0100 #### [facility] [address] [place], [address] RBC Normal 4.2-5.4 [facility] Comment on above: Result Comment: DUPL ICATE- SEE H35 Performed By: #### L 500.2500, L100.0100 #### [facility] [address] [place], [address] RDW CV Normal 11.6-14.6 [facility] Comment on above: Result Comment: DUPL ICATE- SEE H35 Performed By: #### L 500.2500, L100.0100 #### [facility] [address] [place], [address] RDW SD Normal 35.1-43.9 [facility] Comment on above: Result Comment: DUPL ICATE- SEE H35 Performed By: #### L 500.2500, L100.0100 #### [facility] [address] [place], [address] WBC Normal 4.4-11.0 [facility] Comment on above: Result Comment: DUPL ICATE- SEE H35 Performed By: #### L 500.2500, L100.0100 #### [facility] [address] [place], [address] Basic Metabolic Profile (BMP )on 04-18-2025 BUN/CRE 42.1 RATIO High 04-12 [facility] Comment on above: Performed By: #### L 500.2500, L100.0100 #### [facility] [address] [place], [address] Calcium [Mass/Vol] 9.4 mg/dL Normal 7.6-11.0 [facility] Comment on above: Performed By: #### L 500.2500, L100.0100 #### [facility] [address] [place], [address] Chloride [Moles/Vol] 96 mmol/L Low 98-108 [facility] Comment on above: Performed By: #### L 500.2500, L100.0100 #### [facility] [address] [place], [address] CO2 [Moles/Vol] 27.6 mmol/L Normal 21.0-32.0 [facility] Comment on above: Performed By: #### L 500.2500, L100.0100 #### [facility] [address] [place], [address] Creatinine [Mass/Vol] 0.39 mg/dL Low 0.70-1.20 [facility] Comment on above: Performed By: #### L 500.2500, L100.0100 #### [facility] [address] [place], [address] ECRCL 147.64 ml/min Normal 50-250 [facility] Comment on above: Performed By: #### L 500.2500, L100.0100 #### [facility] [address] [place], [address] GAP 11 Normal 5-15 [facility] Comment on above: Performed By: #### L 500.2500, L100.0100 #### [facility] [address] [place], [address] GFR/1.73 sq M.predicted among non-blacks MDRD (S/P/Bld) [Vol rate/Area] 144 mL/min/{1.73_m2} Normal >60 [facility] Comment on above: Result Comment: mL/m in/1.73m2 CKD-EPI Creatinine Equation (2020) Performed By: #### L 500.2500, L100.0100 #### [facility] [address] [place], [address] Glucose [Mass/Vol] 162 mg/dL High 70-99 [facility] Comment on above: Performed By: #### L 500.2500, L100.0100 #### [facility] [address] [place], [address] Potassium [Moles/Vol] 3.8 mmol/L Normal 3.3-5.1 [facility] Comment on above: Performed By: #### L 500.2500, L100.0100 #### [facility] [address] [place], [address] Sodium [Moles/Vol] 135 mmol/L Normal 133-145 [facility] Comment on above: Performed By: #### L 500.2500, L100.0100 #### [facility] [address] [place], [address] Urea nitrogen [Mass/Vol] 17 mg/dL Normal 4-19 [facility] Comment on above: Performed By: #### L 500.2500, L100.0100 #### [facility] [address] [place], [address] Bedside Glucoseon 04-18-2025 FINGERSTICK GLU 122 mg/dL High 74-106 [facility] Comment on above: Result Comment: BONNIE GEMENT OF PATIENT CARE PER NURSING PROTOCOL Performed By: #### L 501.080 #### [facility] [address] [place], [address] FINGERSTICK GLU 171 mg/dL High 74-106 [facility] Comment on above: Result Comment: BONNIE GEMENT OF PATIENT CARE PER NURSING PROTOCOL Performed By: #### L 501.080 #### [facility] [address] [place], [address] CBC W/Diff, Automatedon 10-2 Absolute Lymph 1.13 X10 3/uL Normal 0.83-4.51 [facility] Comment on above: Performed By: #### L 500.2500, L100.0100 #### [facility] [address] [place], [address] Absolute Neut 8.2 X10 3/uL High 2.0-7.7 [facility] Comment on above: Performed By: #### L 500.2500, L100.0100 #### [facility] [address] [place], [address] Basophils/100 WBC (Bld) 0.4 % Normal 0-1 [facility] Comment on above: Performed By: #### L 500.2500, L100.0100 #### [facility] [address] [place], [address] Eosinophils/100 WBC (Bld) 1.0 % Normal 0-5 [facility] Comment on above: Performed By: #### L 500.2500, L100.0100 #### [facility] [address] [place], [address] Erythrocyte distribution width (RBC) [Ratio] 12.9 % Normal 11.6-14.6 [facility] Comment on above: Performed By: #### L 500.2500, L100.0100 #### [facility] [address] [place], [address] Hematocrit (Bld) [Volume fraction] 38.5 % Normal 37-47 [facility] Comment on above: Performed By: #### L 500.2500, L100.0100 #### [facility] [address] [place], [address] Hemoglobin (Bld) [Mass/Vol] 13.1 g/dL Normal 12.0-15.0 [facility] Comment on above: Performed By: #### L 500.2500, L100.0100 #### [facility] [address] [place], [address] IG% 1.500 High 0.0-0.9 [facility] Comment on above: Result Comment: IG% - Immature Granulocytes (promyelocytes, myelocytes and metamyelocytes) > 1% indicates that a LEFT SHIFT is Present. Performed By: #### L 500.2500, L100.0100 #### [facility] [address] [place], [address] Lymphocytes/100 WBC (Bld) 11.1 % Low 19-41 [facility] Comment on above: Performed By: #### L 500.2500, L100.0100 #### [facility] [address] [place], [address] MCH (RBC) [Entitic mass] 29.6 pg Normal 27.0-32.0 [facility] Comment on above: Performed By: #### L 500.2500, L100.0100 #### [facility] [address] [place], [address] MCHC (RBC) [Mass/Vol] 34.0 g/dL Normal 32-36 [facility] Comment on above: Performed By: #### L 500.2500, L100.0100 #### [facility] [address] [place], [address] MCV (RBC) [Entitic vol] 87.1 fL Normal 81-99 [facility] Comment on above: Performed By: #### L 500.2500, L100.0100 #### [facility] [address] [place], [address] Monocytes/100 WBC (Bld) 6.2 % Normal 0-10 [facility] Comment on above: Performed By: #### L 500.2500, L100.0100 #### [facility] [address] [place], [address] Neutrophils/100 WBC (Bld) 79.8 % High 47-70 [facility] Comment on above: Performed By: #### L 500.2500, L100.0100 #### [facility] [address] [place], [address] Nucleated RBC (Bld) [#/Vol] 0 10*3/uL Normal 0-5 [facility] Comment on above: Performed By: #### L 500.2500, L100.0100 #### [facility] [address] [place], [address] Platelet mean volume (Bld) [Entitic vol] 10.2 fL Normal 6.2-12.0 [facility] Comment on above: Performed By: #### L 500.2500, L100.0100 #### [facility] [address] [place], [address] Platelets (Bld) [#/Vol] 434 10*3/uL Normal 150-450 [facility] Comment on above: Performed By: #### L 500.2500, L100.0100 #### [facility] [address] [place], [address] RBC (Bld) [#/Vol] 4.42 10*6/uL Normal 4.2-5.4 [facility] Comment on above: Performed By: #### L 500.2500, L100.0100 #### [facility] [address] [place], [address] RDW SD 40.6 fl Normal 35.1-43.9 [facility] Comment on above: Performed By: #### L 500.2500, L100.0100 #### [facility] [address] [place], [address] WBC (Bld) [#/Vol] 10.2 10*3/uL Normal 4.4-11.0 [facility] Comment on above: Performed By: #### L 500.2500, L100.0100 #### [facility] [address] [place], [address] Basic Metabolic Profile (BMP )on 04-17-2024 BUN/CRE 42.7 RATIO High 04-12 [facility] Comment on above: Performed By: #### L 500.2500, L100.0100 #### [facility] [address] [place], [address] Calcium [Mass/Vol] 9.8 mg/dL Normal 7.6-11.0 [facility] [facility] Comment on above: Performed By: #### L 500.2500, L100.0100 #### [facility] [address] [place], [address] Chloride [Moles/Vol] 99 mmol/L Normal 98-108 [facility] Comment on above: Performed By: #### L 500.2500, L100.0100 #### [facility] [address] [place], [address] CO2 [Moles/Vol] 27.1 mmol/L Normal 21.0-32.0 [facility] Comment on above: Performed By: #### L 500.2500, L100.0100 #### [facility] [address] [place], [address] Creatinine [Mass/Vol] 0.47 mg/dL Low 0.70-1.20 [facility] Comment on above: Performed By: #### L 500.2500, L100.0100 #### [facility] [address] [place], [address] ECRCL 122.51 ml/min Normal 50-250 [facility] Comment on above: Performed By: #### L 500.2500, L100.0100 #### [facility] [address] [place], [address] GAP 12 Normal 5-15 [facility] Comment on above: Performed By: #### L 500.2500, L100.0100 #### [facility] [address] [place], [address] GFR/1.73 sq M.predicted among non-blacks MDRD (S/P/Bld) [Vol rate/Area] 138 mL/min/{1.73_m2} Normal >60 [facility] Comment on above: Result Comment: mL/m in/1.73m2 CKD-EPI Creatinine Equation (2020) Performed By: #### L 500.2500, L100.0100 #### [facility] [address] [place], [address] Glucose [Mass/Vol] 200 mg/dL High 70-99 [facility] Comment on above: Performed By: #### L 500.2500, L100.0100 #### [facility] [address] [place], [address] Potassium [Moles/Vol] 4.4 mmol/L Normal 3.3-5.1 [facility] Comment on above: Performed By: #### L 500.2500, L100.0100 #### [facility] [address] [place], [address] Sodium [Moles/Vol] 137 mmol/L Normal 133-145 [facility] Comment on above: Performed By: #### L 500.2500, L100.0100 #### [facility] [address] [place], [address] Urea nitrogen [Mass/Vol] 20 mg/dL High 4-19 [facility] Comment on above: Performed By: #### L 500.2500, L100.0100 #### [facility] [address] [place], [address] Bedside Glucoseon 04-17-2025 FINGERSTICK GLU 124 mg/dL High 74-106 [facility] Comment on above: Result Comment: BONNIE GEMENT OF PATIENT CARE PER NURSING PROTOCOL Performed By: #### L 500.2500, L100.0100 #### [facility] [address] [place], [address] FINGERSTICK GLU 159 mg/dL High 74-106 [facility] Comment on above: Result Comment: BONNIE GEMENT OF PATIENT CARE PER NURSING PROTOCOL Performed By: #### L 501.080 #### [facility] [address] [place], [address] CBC W/Diff, Automatedon 10-2 Absolute Lymph 1.28 X10 3/uL Normal 0.83-4.51 [facility] Comment on above: Performed By: #### L 500.2500, L100.0100 #### [facility] [address] [place], [address] Absolute Neut 8.3 X10 3/uL High 2.0-7.7 [facility] Comment on above: Performed By: #### L 500.2500, L100.0100 #### [facility] [address] [place], [address] Basophils/100 WBC (Bld) 0.6 % Normal 0-1 [facility] Comment on above: Performed By: #### L 500.2500, L100.0100 #### [facility] [address] [place], [address] Eosinophils/100 WBC (Bld) 0.8 % Normal 0-5 [facility] Comment on above: Performed By: #### L 500.2500, L100.0100 #### [facility] [address] [place], [address] Erythrocyte distribution width (RBC) [Ratio] 13.0 % Normal 11.6-14.6 [facility] Comment on above: Performed By: #### L 500.2500, L100.0100 #### [facility] [address] [place], [address] Hematocrit (Bld) [Volume fraction] 39.6 % Normal 37-47 [facility] Comment on above: Performed By: #### L 500.2500, L100.0100 #### [facility] [address] [place], [address] Hemoglobin (Bld) [Mass/Vol] 13.2 g/dL Normal 12.0-15.0 [facility] Comment on above: Performed By: #### L 500.2500, L100.0100 #### [facility] [address] [place], [address] IG% 2.200 High 0.0-0.9 [facility] Comment on above: Result Comment: IG% - Immature Granulocytes (promyelocytes, myelocytes and metamyelocytes) > 1% indicates that a LEFT SHIFT is Present. Performed By: #### L 500.2500, L100.0100 #### [facility] [address] [place], [address] Lymphocytes/100 WBC (Bld) 12.0 % Low 19-41 [facility] Comment on above: Performed By: #### L 500.2500, L100.0100 #### [facility] [address] [place], [address] MCH (RBC) [Entitic mass] 29.3 pg Normal 27.0-32.0 [facility] Comment on above: Performed By: #### L 500.2500, L100.0100 #### [facility] [address] [place], [address] MCHC (RBC) [Mass/Vol] 33.3 g/dL Normal 32-36 [facility] Comment on above: Performed By: #### L 500.2500, L100.0100 #### [facility] [address] [place], [address] MCV (RBC) [Entitic vol] 88.0 fL Normal 81-99 [facility] Comment on above: Performed By: #### L 500.2500, L100.0100 #### [facility] [address] [place], [address] Monocytes/100 WBC (Bld) 6.6 % Normal 0-10 [facility] Comment on above: Performed By: #### L 500.2500, L100.0100 #### [facility] [address] [place], [address] Neutrophils/100 WBC (Bld) 77.8 % High 47-70 [facility] Comment on above: Performed By: #### L 500.2500, L100.0100 #### [facility] [address] [place], [address] Nucleated RBC (Bld) [#/Vol] 0 10*3/uL Normal 0-5 [facility] Comment on above: Performed By: #### L 500.2500, L100.0100 #### [facility] [address] [place], [address] Platelet mean volume (Bld) [Entitic vol] 10.4 fL Normal 6.2-12.0 [facility] Comment on above: Performed By: #### L 500.2500, L100.0100 #### [facility] [address] [place], [address] Platelets (Bld) [#/Vol] 467 10*3/uL High 150-450 [facility] Comment on above: Performed By: #### L 500.2500, L100.0100 #### [facility] [address] [place], [address] RBC (Bld) [#/Vol] 4.50 10*6/uL Normal 4.2-5.4 [facility] Comment on above: Performed By: #### L 500.2500, L100.0100 #### [facility] [address] [place], [address] RDW SD 41.8 fl Normal 35.1-43.9 [facility] Comment on above: Performed By: #### L 500.2500, L100.0100 #### [facility] [address] [place], [address] WBC (Bld) [#/Vol] 10.7 10*3/uL Normal 4.4-11.0 [facility] Comment on above: Performed By: #### L 500.2500, L100.0100 #### [facility] [address] [place], [address] Basic Metabolic Profile (BMP )on 04-16-2025 BUN/CRE 37.4 RATIO High 10-20 [facility] Comment on above: Performed By: #### L 501.080 #### [facility] [address] [place], [address] Calcium [Mass/Vol] 9.4 mg/dL Normal 7.6-11.0 [facility] Comment on above: Performed By: #### L 501.080 #### [facility] [address] [place], [address] Chloride [Moles/Vol] 99 mmol/L Normal 98-108 [facility] Comment on above: Performed By: #### L 501.080 #### [facility] [address] [place], [address] CO2 [Moles/Vol] 25.5 mmol/L Normal 21.0-32.0 [facility] Comment on above: Performed By: #### L 501.080 #### [facility] [address] [place], [address] Creatinine [Mass/Vol] 0.48 mg/dL Low 0.70-1.20 [facility] Comment on above: Performed By: #### L 501.080 #### [facility] [address] [place], [address] ECRCL 119.96 ml/min Normal 50-250 [facility] Comment on above: Performed By: #### L 501.080 #### [facility] [address] [place], [address] GAP 13 Normal 5-15 [facility] Comment on above: Performed By: #### L 501.080 #### [facility] [address] [place], [address] GFR/1.73 sq M.predicted among non-blacks MDRD (S/P/Bld) [Vol rate/Area] 137 mL/min/{1.73_m2} Normal >60 [facility] Comment on above: Result Comment: mL/m in/1.73m2 CKD-EPI Creatinine Equation (2020) Performed By: #### L 501.080 #### [facility] [address] [place], [address] Glucose [Mass/Vol] 212 mg/dL High 70-99 [facility] Comment on above: Performed By: #### L 501.080 #### [facility] [address] [place], [address] Potassium [Moles/Vol] 3.9 mmol/L Normal 3.3-5.1 [facility] Comment on above: Performed By: #### L 501.080 #### [facility] [address] [place], [address] Sodium [Moles/Vol] 137 mmol/L Normal 133-145 [facility] Comment on above: Performed By: #### L 501.080 #### [facility] [address] [place], [address] Urea nitrogen [Mass/Vol] 18 mg/dL Normal 4-19 [facility] Comment on above: Performed By: #### L 501.080 #### [facility] [address] [place], [address] Bedside Glucoseon 04-16-2025 FINGERSTICK GLU 173 mg/dL High 74-106 [facility] Comment on above: Result Comment: BONNIE AL OF PATIENT CARE PER NURSING PROTOCOL Performed By: #### L 500.2500, L100.0100 #### [facility] [address] [place], [address] FINGERSTICK GLU 166 mg/dL High 74-106 [facility] Comment on above: Result Comment: BONNIE GEMENT OF PATIENT CARE PER NURSING PROTOCOL Performed By: #### L 501.080 #### [facility] [address] [place], [address] FINGERSTICK GLU 156 mg/dL High 74-106 [facility] Comment on above: Result Comment: BONNIE GEMENT OF PATIENT CARE PER NURSING PROTOCOL Performed By: #### L 501.080 #### [facility] [address] [place], [address] CBC W/Diff, Automatedon 10-2 -2024 Absolute Lymph 1.40 X10 3/uL Normal 0.83-4.51 [facility] Comment on above: Performed By: #### L 501.080 #### [facility] [address] [place], [address] Absolute Neut 8.1 X10 3/uL High 2.0-7.7 [facility] Comment on above: Performed By: #### L 501.080 #### [facility] [address] [place], [address] Basophils/100 WBC (Bld) 0.6 % Normal 0-1 [facility] Comment on above: Performed By: #### L 501.080 #### [facility] [address] [place], [address] Eosinophils/100 WBC (Bld) 0.8 % Normal 0-5 [facility] Comment on above: Performed By: #### L 501.080 #### [facility] [address] [place], [address] Erythrocyte distribution width (RBC) [Ratio] 12.9 % Normal 11.6-14.6 [facility] Comment on above: Performed By: #### L 501.080 #### [facility] [address] [place], [address] Hematocrit (Bld) [Volume fraction] 38.4 % Normal 37-47 [facility] Comment on above: Performed By: #### L 501.080 #### [facility] [address] [place], [address] Hemoglobin (Bld) [Mass/Vol] 12.8 g/dL Normal 12.0-15.0 [facility] Comment on above: Performed By: #### L 501.080 #### [facility] [address] [place], [address] IG% 2.200 High 0.0-0.9 [facility] Comment on above: Result Comment: IG% - Immature Granulocytes (promyelocytes, myelocytes and metamyelocytes) > 1% indicates that a LEFT SHIFT is Present. Performed By: #### L 501.080 #### [facility] [address] [place], [address] Lymphocytes/100 WBC (Bld) 13.2 % Low 19-41 [facility] Comment on above: Performed By: #### L 501.080 #### [facility] [address] [place], [address] MCH (RBC) [Entitic mass] 29.2 pg Normal 27.0-32.0 [facility] Comment on above: Performed By: #### L 501.080 #### [facility] [address] [place], [address] MCHC (RBC) [Mass/Vol] 33.3 g/dL Normal 32-36 [facility] Comment on above: Performed By: #### L 501.080 #### [facility] [address] [place], [address] MCV (RBC) [Entitic vol] 87.5 fL Normal 81-99 [facility] Comment on above: Performed By: #### L 501.080 #### [facility] [address] [place], [address] Monocytes/100 WBC (Bld) 7.0 % Normal 0-10 [facility] Comment on above: Performed By: #### L 501.080 #### [facility] [address] [place], [address] Neutrophils/100 WBC (Bld) 76.2 % High 47-70 [facility] Comment on above: Performed By: #### L 501.080 #### [facility] [address] [place], [address] Nucleated RBC (Bld) [#/Vol] 0 10*3/uL Normal 0-5 [facility] Comment on above: Performed By: #### L 501.080 #### [facility] [address] [place], [address] Platelet mean volume (Bld) [Entitic vol] 10.2 fL Normal 6.2-12.0 [facility] Comment on above: Performed By: #### L 501.080 #### [facility] [address] [place], [address] Platelets (Bld) [#/Vol] 493 10*3/uL High 150-450 [facility] Comment on above: Performed By: #### L 501.080 #### [facility] [address] [place], [address] RBC (Bld) [#/Vol] 4.39 10*6/uL Normal 4.2-5.4 [facility] Comment on above: Performed By: #### L 501.080 #### [facility] [address] [place], [address] RDW SD 41.1 fl Normal 35.1-43.9 [facility] Comment on above: Performed By: #### L 501.080 #### [facility] [address] [place], [address] WBC (Bld) [#/Vol] 10.6 10*3/uL Normal 4.4-11.0 [facility] Comment on above: Performed By: #### L 501.080 #### [facility] [address] [place], [address] Basic Metabolic Profile (BMP )on 04-15-2025 BUN/CRE 34.7 RATIO High - [facility] Comment on above: Performed By: #### L 500.2500, L100.0100 #### [facility] [address] [place], [address] Calcium [Mass/Vol] 9.5 mg/dL Normal 7.6-11.0 [facility] Comment on above: Performed By: #### L 500.2500, L100.0100 #### [facility] [address] [place], [address] Chloride [Moles/Vol] 99 mmol/L Normal 98-108 [facility] Comment on above: Performed By: #### L 500.2500, L100.0100 #### [facility] [address] [place], [address] CO2 [Moles/Vol] 23.0 mmol/L Normal 21.0-32.0 [facility] Comment on above: Performed By: #### L 500.2500, L100.0100 #### [facility] [address] [place], [address] Creatinine [Mass/Vol] 0.53 mg/dL Low 0.70-1.20 [facility] Comment on above: Performed By: #### L 500.2500, L100.0100 #### [facility] [address] [place], [address] ECRCL 108.64 ml/min Normal 50-250 [facility] Comment on above: Performed By: #### L 500.2500, L100.0100 #### [facility] [address] [place], [address] GAP 14 Normal 5-15 [facility] Comment on above: Performed By: #### L 500.2500, L100.0100 #### [facility] [address] [place], [address] GFR/1.73 sq M.predicted among non-blacks MDRD (S/P/Bld) [Vol rate/Area] 134 mL/min/{1.73_m2} Normal >60 [facility] Comment on above: Result Comment: mL/m in/1.73m2 CKD-EPI Creatinine Equation (2020) Performed By: #### L 500.2500, L100.0100 #### [facility] [address] [place], [address] Glucose [Mass/Vol] 195 mg/dL High 70-99 [facility] Comment on above: Performed By: #### L 500.2500, L100.0100 #### [facility] [address] [place], [address] Potassium [Moles/Vol] 3.8 mmol/L Normal 3.3-5.1 [facility] Comment on above: Performed By: #### L 500.2500, L100.0100 #### [facility] [address] [place], [address] Sodium [Moles/Vol] 136 mmol/L Normal 133-145 [facility] Comment on above: Performed By: #### L 500.2500, L100.0100 #### [facility] [address] [place], [address] Urea nitrogen [Mass/Vol] 18 mg/dL Normal 4-19 [facility] Comment on above: Performed By: #### L 500.2500, L100.0100 #### [facility] [address] [place], [address] Bedside Glucoseon 04-15-2025 FINGERSTICK GLU 147 mg/dL High 74-106 [facility] Comment on above: Result Comment: BONNIE AL OF PATIENT CARE PER NURSING PROTOCOL Performed By: #### L 501.080 #### [facility] [address] [place], [address] CBC W/Diff, Automatedon 03-25 Absolute Lymph 1.17 X10 3/uL Normal 0.83-4.51 [facility] Comment on above: Performed By: #### L 500.2500, L100.0100 #### [facility] [address] [place], [address] Absolute Neut 7.5 X10 3/uL Normal 2.0-7.7 [facility] Comment on above: Performed By: #### L 500.2500, L100.0100 #### [facility] [address] [place], [address] Basophils/100 WBC (Bld) 0.9 % Normal 0-1 [facility] Comment on above: Performed By: #### L 500.2500, L100.0100 #### [facility] [address] [place], [address] Eosinophils/100 WBC (Bld) 1.1 % Normal 0-5 [facility] Comment on above: Performed By: #### L 500.2500, L100.0100 #### [facility] [address] [place], [address] Erythrocyte distribution width (RBC) [Ratio] 13.0 % Normal 11.6-14.6 [facility] Comment on above: Performed By: #### L 500.2500, L100.0100 #### [facility] [address] [place], [address] Hematocrit (Bld) [Volume fraction] 37.3 % Normal 37-47 [facility] Comment on above: Performed By: #### L 500.2500, L100.0100 #### [facility] [address] [place], [address] Hemoglobin (Bld) [Mass/Vol] 12.4 g/dL Normal 12.0-15.0 [facility] Comment on above: Performed By: #### L 500.2500, L100.0100 #### [facility] [address] [place], [address] IG% 3.000 High 0.0-0.9 [facility] Comment on above: Result Comment: IG% - Immature Granulocytes (promyelocytes, myelocytes and metamyelocytes) > 1% indicates that a LEFT SHIFT is Present. Performed By: #### L 500.2500, L100.0100 #### [facility] [address] [place], [address] Lymphocytes/100 WBC (Bld) 11.9 % Low 19-41 [facility] Comment on above: Performed By: #### L 500.2500, L100.0100 #### [facility] [address] [place], [address] MCH (RBC) [Entitic mass] 29.1 pg Normal 27.0-32.0 [facility] Comment on above: Performed By: #### L 500.2500, L100.0100 #### [facility] [address] [place], [address] MCHC (RBC) [Mass/Vol] 33.2 g/dL Normal 32-36 [facility] Comment on above: Performed By: #### L 500.2500, L100.0100 #### [facility] [address] [place], [address] MCV (RBC) [Entitic vol] 87.6 fL Normal 81-99 [facility] Comment on above: Performed By: #### L 500.2500, L100.0100 #### [facility] [address] [place], [address] Monocytes/100 WBC (Bld) 6.7 % Normal 0-10 [facility] Comment on above: Performed By: #### L 500.2500, L100.0100 #### [facility] [address] [place], [address] Neutrophils/100 WBC (Bld) 76.4 % High 47-70 [facility] Comment on above: Performed By: #### L 500.2500, L100.0100 #### [facility] [address] [place], [address] Nucleated RBC (Bld) [#/Vol] 0 10*3/uL Normal 0-5 [facility] Comment on above: Performed By: #### L 500.2500, L100.0100 #### [facility] [address] [place], [address] Platelet mean volume (Bld) [Entitic vol] 10.3 fL Normal 6.2-12.0 [facility] Comment on above: Performed By: #### L 500.2500, L100.0100 #### [facility] [address] [place], [address] Platelets (Bld) [#/Vol] 476 10*3/uL High 150-450 [facility] Comment on above: Performed By: #### L 500.2500, L100.0100 #### [facility] [address] [place], [address] RBC (Bld) [#/Vol] 4.26 10*6/uL Normal 4.2-5.4 [facility] Comment on above: Performed By: #### L 500.2500, L100.0100 #### [facility] [address] [place], [address] RDW SD 41.0 fl Normal 35.1-43.9 [facility] Comment on above: Performed By: #### L 500.2500, L100.0100 #### [facility] [address] [place], [address] WBC (Bld) [#/Vol] 9.8 10*3/uL Normal 4.4-11.0 [facility] Comment on above: Performed By: #### L 500.2500, L100.0100 #### [facility] [address] [place], [address] CT TRANSFER OF OUTSIDE FILMS on 04-15-2025 CT TRANSFER OF OUTSIDE FILMS Outside images for comparison or treatment purposes, not interpreted by Radiologists. Normal [facility] Study Interpretation of outs galina studyon 04-15-2025 Outside images for comparison or treatment purposes, not interpreted by Radiologists. IMAGING Bedside Glucoseon 04-14-2025 FINGERSTICK GLU 128 mg/dL High 74-106 [facility] Comment on above: Result Comment: BONNIE GEMENT OF PATIENT CARE PER NURSING PROTOCOL Performed By: #### L 501.080 #### [facility] [address] [place], [address] FINGERSTICK GLU 127 mg/dL High 74-106 [facility] Comment on above: Result Comment: BONNIE GEMENT OF PATIENT CARE PER NURSING PROTOCOL Performed By: #### L 501.080 #### [facility] [address] [place], [address] Bedside Glucoseon 04-13-2025 FINGERSTICK GLU 162 mg/dL High 74-106 [facility] Comment on above: Result Comment: BONNIE GEMENT OF PATIENT CARE PER NURSING PROTOCOL Performed By: #### L 501.080 #### [facility] [address] [place], [address] FINGERSTICK GLU 142 mg/dL High 74-106 [facility] Comment on above: Result Comment: BONNIE GEMENT OF PATIENT CARE PER NURSING PROTOCOL Performed By: #### L 501.080 #### [facility] [address] [place], [address] FINGERSTICK GLU 169 mg/dL High 74-106 [facility] Comment on above: Result Comment: BONNIE GEMENT OF PATIENT CARE PER NURSING PROTOCOL Performed By: #### L 501.080 #### [facility] [address] [place], [address] FINGERSTICK GLU 134 mg/dL High 74-106 [facility] Comment on above: Result Comment: BONNIE GEMENT OF PATIENT CARE PER NURSING PROTOCOL Performed By: #### L 501.080 #### [facility] [address] [place], [address] Bedside Glucoseon 04-12-2025 FINGERSTICK GLU 167 mg/dL High 74-106 [facility] Comment on above: Result Comment: BONNIE GEMENT OF PATIENT CARE PER NURSING PROTOCOL Performed By: #### L 500.2500, L100.0100 #### [facility] [address] [place], [address] FINGERSTICK GLU 175 mg/dL High -106 [facility] Comment on above: Result Comment: BONNIE GEMENT OF PATIENT CARE PER NURSING PROTOCOL Performed By: #### L 501.080 #### [facility] [address] [place], [address] FINGERSTICK GLU 141 mg/dL High 74-106 [facility] Comment on above: Result Comment: BONNIE GEMENT OF PATIENT CARE PER NURSING PROTOCOL Performed By: #### L 500.2500, L100.0100 #### [facility] [address] [place], [address] Bedside Glucoseon 5 FINGERSTICK GLU 171 mg/dL High 74-106 [facility] Comment on above: Result Comment: BONNIE GEMENT OF PATIENT CARE PER NURSING PROTOCOL Performed By: #### L 501.080 #### [facility] [address] [place], [address] FINGERSTICK GLU 145 mg/dL High 74-106 [facility] Comment on above: Result Comment: BONNIE GEMENT OF PATIENT CARE PER NURSING PROTOCOL Performed By: #### L 500.2500, L100.0100 #### [facility] [address] [place], [address] FINGERSTICK GLU 172 mg/dL High 74-106 [facility] Comment on above: Result Comment: BONNIE GEMENT OF PATIENT CARE PER NURSING PROTOCOL Performed By: #### L 501.080 #### [facility] [address] [place], [address] FINGERSTICK GLU 151 mg/dL [place] [id number] [facility] Comment on above: Result Comment: BONNIE GEMENT OF PATIENT CARE PER NURSING PROTOCOL Performed By: #### L 501.080 #### [facility] [address] [place], [address] Urine Cultureon 04-11-2025 URC Klebsiella aerogenes [place] Count >100,000 Klebsiella aerogenes: REACTION Cefepime Islt MOHAN 1 cefTRIAXone Islt MOHAN 32 R Ciprofloxacin Islt MOHAN <=0.06 S Gentamicin Islt MOHAN <=1 S levoFLOXacin Islt MOHAN <=0.12 S Meropenem Islt MOHAN <=0.25 S Nitrofurantoin Islt MOHAN 64 I Pip+Tazo Islt MOHAN >=128 R TMP SMX Islt MOHAN <=20 S Normal [facility] Comment on above: Performed By: #### L 501.080 #### [facility] [address] [place], [address] Bedside Glucoseon 04-10-2025 FINGERSTICK GLU 153 mg/dL [place] [address] [facility] Comment on above: Result Comment: BONNIE GEMENT OF PATIENT CARE PER NURSING PROTOCOL Performed By: #### L 500.2500, L100.0100 #### [facility] [address] [place], [address] FINGERSTICK GLU 170 mg/dL [place] 74-106 [facility] Comment on above: Result Comment: BONNIE GEMENT OF PATIENT CARE PER NURSING PROTOCOL Performed By: #### L 501.080 #### [facility] [address] [place], [address] FINGERSTICK GLU 128 mg/dL High 74-106 [facility] Comment on above: Result Comment: BONNIE GEMENT OF PATIENT CARE PER NURSING PROTOCOL Performed By: #### L 501.080 #### [facility] [address] [place], [address] FINGERSTICK GLU 151 mg/dL High 74-106 [facility] Comment on above: Result Comment: BONNIE GEMENT OF PATIENT CARE PER NURSING PROTOCOL Performed By: #### L 500.2500, L100.0100 #### [facility] [address] [place], [address] Basic Metabolic Profile (BMP )on 04-09-2025 BUN/CRE 29.9 RATIO High 10-20 [facility] Comment on above: Performed By: #### L 500.2500, L100.0100 #### [facility] [address] [place], [address] Calcium [Mass/Vol] 9.5 mg/dL Normal 7.6-11.0 [facility] Comment on above: Performed By: #### L 500.2500, L100.0100 #### [facility] [address] [place], [address] Chloride [Moles/Vol] 95 mmol/L Low 98-108 [facility] Comment on above: Performed By: #### L 500.2500, L100.0100 #### [facility] [address] [place], [address] CO2 [Moles/Vol] 25.4 mmol/L Normal 21.0-32.0 [facility] Comment on above: Performed By: #### L 500.2500, L100.0100 #### [facility] [address] [place], [address] Creatinine [Mass/Vol] 0.47 mg/dL Low 0.70-1.20 [facility] Comment on above: Performed By: #### L 500.2500, L100.0100 #### [facility] [address] [place], [address] ECRCL 122.51 ml/min Normal 50-250 [facility] Comment on above: Performed By: #### L 500.2500, L100.0100 #### [facility] [address] [place], [address] GAP 13 Normal 5-15 [facility] Comment on above: Performed By: #### L 500.2500, L100.0100 #### [facility] [address] [place], [address] GFR/1.73 sq M.predicted among non-blacks MDRD (S/P/Bld) [Vol rate/Area] 138 mL/min/{1.73_m2} Normal >60 [facility] Comment on above: Result Comment: mL/m in/1.73m2 CKD-EPI Creatinine Equation (2020) Performed By: #### L 500.2500, L100.0100 #### [facility] [address] [place], [address] Glucose [Mass/Vol] 130 mg/dL High 70-99 [facility] Comment on above: Performed By: #### L 500.2500, L100.0100 #### [facility] [address] [place], [address] Potassium [Moles/Vol] 3.8 mmol/L Normal 3.3-5.1 [facility] Comment on above: Performed By: #### L 500.2500, L100.0100 #### [facility] [address] [place], [address] Sodium [Moles/Vol] 134 mmol/L Normal 133-145 [facility] Comment on above: Performed By: #### L 500.2500, L100.0100 #### [facility] [address] [place], [address] Urea nitrogen [Mass/Vol] 14 mg/dL Normal 4-19 [facility] Comment on above: Performed By: #### L 500.2500, L100.0100 #### [facility] [address] [place], [address] Bedside Glucoseon 04-09-2025 FINGERSTICK GLU 119 mg/dL High 74-106 [facility] Comment on above: Result Comment: BONNIE GEMENT OF PATIENT CARE PER NURSING PROTOCOL Performed By: #### L 500.2500, L100.0100 #### [facility] [address] [place], [address] FINGERSTICK GLU 157 mg/dL High 74-106 [facility] Comment on above: Result Comment: BONNIE GEMENT OF PATIENT CARE PER NURSING PROTOCOL Performed By: #### L 501.080 #### [facility] [address] [place], [address] FINGERSTICK GLU 135 mg/dL High 74-106 [facility] Comment on above: Result Comment: BONNIE GEMENT OF PATIENT CARE PER NURSING PROTOCOL Performed By: #### L 501.080 #### [facility] [address] [place], [address] CBC W/Diff, Automatedon 10- Absolute Lymph 1.46 X10 3/uL Normal 0.83-4.51 [facility] Comment on above: Performed By: #### L 500.2500, L100.0100 #### [facility] [address] [place], [address] Absolute Neut 7.5 X10 3/uL Normal 2.0-7.7 [facility] Comment on above: Performed By: #### L 500.2500, L100.0100 #### [facility] [address] [place], [address] Basophils/100 WBC (Bld) 0.4 % Normal 0-1 [facility] Comment on above: Performed By: #### L 500.2500, L100.0100 #### [facility] [address] [place], [address] Eosinophils/100 WBC (Bld) 0.1 % Normal 0-5 [facility] Comment on above: Performed By: #### L 500.2500, L100.0100 #### [facility] [address] [place], [address] Erythrocyte distribution width (RBC) [Ratio] 12.8 % Normal 11.6-14.6 [facility] Comment on above: Performed By: #### L 500.2500, L100.0100 #### [facility] [address] [place], [address] Hematocrit (Bld) [Volume fraction] 33.6 % Low 37-47 [facility] Comment on above: Performed By: #### L 500.2500, L100.0100 #### [facility] [address] [place], [address] Hemoglobin (Bld) [Mass/Vol] 11.4 g/dL Low 12.0-15.0 [facility] Comment on above: Performed By: #### L 500.2500, L100.0100 #### [facility] [address] [place], [address] IG% 1.100 High 0.0-0.9 [facility] Comment on above: Result Comment: IG% - Immature Granulocytes (promyelocytes, myelocytes and metamyelocytes) > 1% indicates that a LEFT SHIFT is Present. Performed By: #### L 500.2500, L100.0100 #### [facility] [address] [place], [address] Lymphocytes/100 WBC (Bld) 14.4 % Low 19-41 [facility] Comment on above: Performed By: #### L 500.2500, L100.0100 #### [facility] [address] [place], [address] MCH (RBC) [Entitic mass] 29.2 pg Normal 27.0-32.0 [facility] Comment on above: Performed By: #### L 500.2500, L100.0100 #### [facility] [address] [place], [address] MCHC (RBC) [Mass/Vol] 33.9 g/dL Normal 32-36 [facility] Comment on above: Performed By: #### L 500.2500, L100.0100 #### [facility] [address] [place], [address] MCV (RBC) [Entitic vol] 86.2 fL Normal 81-99 [facility] Comment on above: Performed By: #### L 500.2500, L100.0100 #### [facility] [address] [place], [address] Monocytes/100 WBC (Bld) 9.8 % Normal 0-10 [facility] Comment on above: Performed By: #### L 500.2500, L100.0100 #### [facility] [address] [place], [address] Neutrophils/100 WBC (Bld) 74.2 % High 47-70 [facility] Comment on above: Performed By: #### L 500.2500, L100.0100 #### [facility] [address] [place], [address] Nucleated RBC (Bld) [#/Vol] 0 10*3/uL Normal 0-5 [facility] Comment on above: Performed By: #### L 500.2500, L100.0100 #### [facility] [address] [place], [address] Platelet mean volume (Bld) [Entitic vol] 10.9 fL Normal 6.2-12.0 [facility] Comment on above: Performed By: #### L 500.2500, L100.0100 #### [facility] [address] [place], [address] Platelets (Bld) [#/Vol] 325 10*3/uL Normal 150-450 [facility] Comment on above: Performed By: #### L 500.2500, L100.0100 #### [facility] [address] [place], [address] RBC (Bld) [#/Vol] 3.90 10*6/uL Low 4.2-5.4 [facility] Comment on above: Performed By: #### L 500.2500, L100.0100 #### [facility] [address] [place], [address] RDW SD 39.9 fl Normal 35.1-43.9 [facility] Comment on above: Performed By: #### L 500.2500, L100.0100 #### [facility] [address] [place], [address] WBC (Bld) [#/Vol] 10.1 10*3/uL Normal 4.4-11.0 [facility] Comment on above: Performed By: #### L 500.2500, L100.0100 #### [facility] [address] [place], [address] COVID 19 AG RAPID (RN COLLEC T)on 04-09-2025 SARS-CoV-2 (COVID-19) RNA JOSE+probe Ql (Unsp spec) *Negative results from patients with symptom onset beyond five days should be treated as presumptive and confirmed by a molecular assay if clinically necessary. Negative results should not be used as the sole basis for treatment or for patient management. SARS-CoV-2 Ag Resp Ql IA.rapid *Positive results do not differentiate between SARS-CoV and SARS-CoV-2. If differentiation of the specific SARS virus is desired an additional sample and an additional order is required. SARS-CoV-2 Ag Resp Ql IA.rapid * This test has not been FDA cleared or approved; the test has been authorized by FDA under an Emergency Use Authorization (EAU) for use by laboratories certified under CLIA that meet the requirements to perform moderate, high, or waived complexity tests. SARS-CoV-2 Ag Resp Ql IA.rapid Normal Reference Range: Negative SARS-CoV-2 (COVID 19) Negative RAPID METHOD [employer] COVID19 Ag Card Normal [facility] Comment on above: Performed By: #### L 501.080 #### [facility] [address] [place], [place], [address] Chest PA and Lateralon 04-09 Chest PA and Lateral [facility] Imaging Services [address] [place], [place] [address] Chest PA and Lateral MR#: [id number] Acct: [id number] Name: KIMANI SILVA Rep #: [id number] : 2000 F 24 From: Serge Wheeler MD PCP: Dr. Sarah Murphy MD Status: ADM IN Study: Chest PA and Lateral Date of Exam: 04/09/25 Exam# [id number] Ordering Dr: Benjy Gonzalez MD PROCEDURE: CHEST PA AND LATERAL 04/09/2025 REASON FOR EXAM: ASPIRATION PNEUMONIA TECHNIQUE: Procedure Code: RADCXR Modality: DX Procedure: CHEST PA AND LATERAL COMPARISON: None FINDINGS: Hardware: Right [employer] shunt is seen along the right neck, right chest and upper abdomen. Heart: The heart size is normal. Mediastinum: The mediastinal contour is unremarkable. Lungs: The lungs are clear. Bones: The bones are unremarkable. RAD/Chest PA and Lateral IMPRESSION: No acute abnormality Reading Location: [id number] CC: Dr. Sarah Murphy MD; Dr. 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, [address] Urinalysis, Completeon 04-09 AMORPHOUS 1+ PHOS Normal [facility] Comment on above: Order Comment: BLADD ER TAP Performed By: #### L 501.080 #### [facility] [address] [place], [address] BACTERIA 3+ /hpf Normal None Seen [facility] Comment on above: Order Comment: BLADD ER TAP Performed By: #### L 501.080 #### [facility] [address] [place], [address] WBC 0-5 SEEN Normal 0-5 [facility] Comment on above: Order Comment: BLADD ER TAP Performed By: #### L 501.080 #### [facility] [address] [place], [address] EPI,SQUAMOUS 0 SEEN Normal 5-10 [facility] Comment on above: Order Comment: BLADD ER TAP Performed By: #### L 501.080 #### [facility] [address] [place], [address] Mucus Ql (Urine sed) 0 SEEN Normal [facility] Comment on above: Order Comment: BLADD ER TAP Performed By: #### L 501.080 #### [facility] [address] [place], [address] RBC 0 SEEN Normal 0-5 [facility] Comment on above: Order Comment: BLADD ER TAP Performed By: #### L 501.080 #### [facility] [address] [place], [address] Abdomen Single View (Portabl e)on 04-08-2025 Abdomen Single View (Portable) [facility] Services [address] [place] [address] Abdomen Single View (Portable) MR#: [id number] Acct: [id number] Name: KIMANI SILVA Rep #: [id number] : 2000 F 24 From: Ayush Burger MD PCP: Dr. Sarah Murphy MD Status: ADM IN Study: Abdomen Single View (Portable) Date of Exam: 1 Exam# [id number] Ordering Dr: Benjy Gonzalez MD PROCEDURE: ABDOMEN SINGLE VIEW (PORTABLE) 04/08/2025 REASON FOR EXAM: CONSTIPATION, NAUSEA, VOMITING TECHNIQUE: Procedure Code: RADABD_P Modality: DX Procedure: ABDOMEN SINGLE VIEW (PORTABLE) COMPARISON: None. FINDINGS: Ventriculoperitoneal shunt catheter traverses the right abdomen, terminating in the pelvis, without evidence for discontinuity or kinking. Nonobstructive bowel gas pattern. No discernible free air. Mild-moderate burden of stool and gas throughout the colon. No unusual calcific densities or significant osseous abnormality. RAD/Abdomen Single View (Portable) IMPRESSION: Nonobstructive gas pattern. Mild-moderate colonic stool burden. Reading Location: [id number] CC: Dr. Sarah Murphy MD; Dr. 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, [address] Chloride [Moles/Vol] 98 mmol/L Normal 98-108 [facility] Comment on above: Performed By: #### L 500.2500, L100.0100 #### [facility] [address] [place], [address] CO2 [Moles/Vol] 25.4 mmol/L Normal 21.0-32.0 [facility] Comment on above: Performed By: #### L 500.2500, L100.0100 #### [facility] [address] [place], [address] Creatinine [Mass/Vol] 0.44 mg/dL Low 0.70-1.20 [facility] Comment on above: Performed By: #### L 500.2500, L100.0100 #### [facility] [address] [place], [address] ECRCL 130.86 ml/min Normal 50-250 [facility] Comment on above: Performed By: #### L 500.2500, L100.0100 #### [facility] [address] [place], [address] GAP 14 Normal 5-15 [facility] Comment on above: Performed By: #### L 500.2500, L100.0100 #### [facility] [address] [place], [address] GFR/1.73 sq M.predicted among non-blacks MDRD (S/P/Bld) [Vol rate/Area] 141 mL/min/{1.73_m2} Normal >60 [facility] Comment on above: Result Comment: mL/m in/1.73m2 CKD-EPI Creatinine Equation (2020) Performed By: #### L 500.2500, L100.0100 #### [facility] [address] [place], [address] Glucose [Mass/Vol] 124 mg/dL High 70-99 [facility] Comment on above: Performed By: #### L 500.2500, L100.0100 #### [facility] [address] [place], [address] Potassium [Moles/Vol] 4.0 mmol/L Normal 3.3-5.1 [facility] Comment on above: Performed By: #### L 500.2500, L100.0100 #### [facility] [address] [place], [address] Sodium [Moles/Vol] 137 mmol/L Normal 133-145 [facility] Comment on above: Performed By: #### L 500.2500, L100.0100 #### [facility] [address] [place], [address] Urea nitrogen [Mass/Vol] 14 mg/dL Normal 4-19 [facility] Comment on above: Performed By: #### L 500.2500, L100.0100 #### [facility] [address] [place], [address] Bedside Glucoseon 04-08-2025 FINGERSTICK GLU 155 mg/dL High 74-106 [facility] Comment on above: Result Comment: BONNIE GEMENT OF PATIENT CARE PER NURSING PROTOCOL Performed By: #### L 500.2500, L100.0100 #### [facility] [address] [place], [address] FINGERSTICK GLU 148 mg/dL High 74-106 [facility] Comment on above: Result Comment: BONNIE GEMENT OF PATIENT CARE PER NURSING PROTOCOL Performed By: #### L 500.2500, L100.0100 #### [facility] [address] [place], [address] FINGERSTICK GLU 128 mg/dL High 74-106 [facility] Comment on above: Result Comment: BONNIE AL OF PATIENT CARE PER NURSING PROTOCOL Performed By: #### L 501.080 #### [facility] [address] [place], [address] Brain/Head without Contrasto n 04-08-2025 Brain/Head without Contrast [facility] Imaging Services [address] [place] [address] Brain/Head without Contrast MR#: [id number] Acct: [id number] Name: KIMANI SILVA Rep #: [id number] : 2000 F 24 From: Jhonatan shelton MD PCP: Dr. Sarah Murphy MD Status: REG CLI Study: Brain/Head without Contrast Date of Exam: 03/24 12/16 Exam# [id number] Ordering Dr: Benjy Gonzalez MD PROCEDURE: BRAIN/HEAD WITHOUT CONTRAST 04/08/2025 REASON FOR EXAM: AVM History of prior occipital craniotomy and repair of a arteriovenous malformation. TECHNIQUE: Procedure Code: CTBR Modality: CT Procedure: BRAIN/HEAD WITHOUT CONTRAST Coronal and Sagittal reconstruction series were provided. One or more dose reduction techniques were used (e.g., Automated exposure control, adjustment of the mA and/or kV according to patient size, use of iterative reconstruction technique. RADIATION DOSE SUMMARY: CTDlvol: 44.99 mGy DLP: 846.73 mGycm COMPARISON: None FINDINGS: Brain: The patient is status post occipital craniotomy with the reconstructive surgical changes. The patient is status post surgical intervention in the posterior fossa with evidence of a 2.7 cm by 3.1 cm CSF collection most likely secondary to postoperative resection. No evidence of mass effect or acute bleed at this time. A shunt tube is seen within the anterior horn of the right ventricle. No evidence of hydrocephalus. CSF Spaces: No evidence of cerebral atrophy. Sinuses/Mastoids: Clear at visualized levels Bones: Prior occipital craniotomy. CT/Brain/Head without Contrast IMPRESSION: Status post surgical intervention involving the posterior fossa as described. Postoperative cystic change seen in the posterior fossa. No evidence of acute hemorrhage or mass effect at this time. Reading Location: [place] [address] CC: Dr. Sarah Murphy MD; Dr. 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, [address] Absolute Neut 9.2 X10 3/uL High 2.0-7.7 [facility] Comment on above: Performed By: #### L 500.2500, L100.0100 #### [facility] [address] [place], [address] Basophils/100 WBC (Bld) 0.5 % Normal 0-1 [facility] Comment on above: Performed By: #### L 500.2500, L100.0100 #### [facility] [address] [place], [address] Eosinophils/100 WBC (Bld) 0.3 % Normal 0-5 [facility] Comment on above: Performed By: #### L 500.2500, L100.0100 #### [facility] [address] [place], [address] Erythrocyte distribution width (RBC) [Ratio] 13.0 % Normal 11.6-14.6 [facility] Comment on above: Performed By: #### L 500.2500, L100.0100 #### [facility] [address] [place], [address] Hematocrit (Bld) [Volume fraction] 34.6 % Low 37-47 [facility] Comment on above: Performed By: #### L 500.2500, L100.0100 #### [facility] [address] [place], [address] Hemoglobin (Bld) [Mass/Vol] 11.7 g/dL Low 12.0-15.0 [facility] Comment on above: Performed By: #### L 500.2500, L100.0100 #### [facility] [address] [place], [address] IG% 0.800 Normal 0.0-0.9 [facility] Comment on above: Result Comment: IG% - Immature Granulocytes (promyelocytes, myelocytes and metamyelocytes) > 1% indicates that a LEFT SHIFT is Present. Performed By: #### L 500.2500, L100.0100 #### [facility] [address] [place], [address] Lymphocytes/100 WBC (Bld) 10.8 % Low 19-41 [facility] Comment on above: Performed By: #### L 500.2500, L100.0100 #### [facility] [address] [place], [address] MCH (RBC) [Entitic mass] 29.8 pg Normal 27.0-32.0 [facility] Comment on above: Performed By: #### L 500.2500, L100.0100 #### [facility] [address] [place], [address] MCHC (RBC) [Mass/Vol] 33.8 g/dL Normal 32-36 [facility] Comment on above: Performed By: #### L 500.2500, L100.0100 #### [facility] [address] [place], [address] MCV (RBC) [Entitic vol] 88.0 fL Normal 81-99 [facility] Comment on above: Performed By: #### L 500.2500, L100.0100 #### [facility] [address] [place], [address] Monocytes/100 WBC (Bld) 6.8 % Normal 0-10 [facility] Comment on above: Performed By: #### L 500.2500, L100.0100 #### [facility] [address] [place], [address] Neutrophils/100 WBC (Bld) 80.8 % High 47-70 [facility] Comment on above: Performed By: #### L 500.2500, L100.0100 #### [facility] [address] [place], [address] Nucleated RBC (Bld) [#/Vol] 0 10*3/uL Normal 0-5 [facility] Comment on above: Performed By: #### L 500.2500, L100.0100 #### [facility] [address] [place], [address] Platelet mean volume (Bld) [Entitic vol] 11.3 fL Normal 6.2-12.0 [facility] Comment on above: Performed By: #### L 500.2500, L100.0100 #### [facility] [address] [place], [address] Platelets (Bld) [#/Vol] 267 10*3/uL Normal 150-450 [facility] Comment on above: Performed By: #### L 500.2500, L100.0100 #### [facility] [address] [place], [address] RBC (Bld) [#/Vol] 3.93 10*6/uL Low 4.2-5.4 [facility] Comment on above: Performed By: #### L 500.2500, L100.0100 #### [facility] [address] [place], [address] RDW SD 42.3 fl Normal 35.1-43.9 [facility] Comment on above: Performed By: #### L 500.2500, L100.0100 #### [facility] [address] [place], [address] WBC (Bld) [#/Vol] 11.4 10*3/uL High 4.4-11.0 [facility] Comment on above: Performed By: #### L 500.2500, L100.0100 #### [facility] [address] [place], [address] Bedside Glucoseon 04-07-2025 FINGERSTICK GLU 139 mg/dL High 74-106 [facility] Comment on above: Result Comment: BONNIE GEMENT OF PATIENT CARE PER NURSING PROTOCOL Performed By: #### L 501.080 #### [facility] [address] [place], [address] FINGERSTICK GLU 104 mg/dL Normal 74-106 [facility] Comment on above: Result Comment: BONNIE GEMENT OF PATIENT CARE PER NURSING PROTOCOL Performed By: #### L 500.2500, L100.0100 #### [facility] [address] [place], [address] CBC + DIFFon 04-02-2025 Baso # 0.03 x10EE3/UL Normal 0.00 - 0.10 [facility] Comment on above: Performed By: #### 2 90954 #### [facility],[address] [place] [address] 28932 Basophils/100 WBC (Bld) 0.5 % Normal 0.0 - 2.0 [facility] Comment on above: Performed By: #### 2 51671 #### [facility],[address] [place] [address] 58256 CBC + DIFF Normal [facility] Comment on above: Result Comment: CBC- COMPLETE BLOOD COUNT Performed By: #### 2 05805 #### [facility],[address] [place] [address] 28092 EO # 0.52 x10EE3/UL High 0.00 - 0.50 [facility] Comment on above: Performed By: #### 2 33981 #### [facility],[address] [place] [address] 73347 Eosinophils/100 WBC (Bld) 10.0 % High 0.0 - 7.0 [facility] Comment on above: Performed By: #### 2 19918 #### [facility],[address] [place] [address] Erythrocyte distribution width (RBC) [Ratio] 13.9 % Normal 12.0 - 15.6 [facility] Comment on above: Performed By: #### 2 97610 #### [place] [address] Hematocrit (Bld) [Volume fraction] 33.3 % Low 34.0 - 46.0 [facility] Comment on above: Performed By: #### 2 58231 #### [facility],[address] [place] [address] Hemoglobin (Bld) [Mass/Vol] 11.6 g/dL Low 12.0 - 16.0 [facility] Comment on above: Result Comment: VERI FIED BY REPEAT ANALYSISI Performed By: #### 2 62589 #### [address] [address] Lymph # 1.24 x10EE3/UL Normal 0.80 - 2.80 [facility] Comment on above: Performed By: #### 2 21293 #### [place] [id number] Lymphocytes/100 WBC (Bld) 23.8 % Normal 20.0 - 45.0 [facility] Comment on above: Performed By: #### 2 41709 #### [place] [address] MANUAL DIFF N/A Normal [facility] Comment on above: Performed By: #### 2 32099 #### [facility],[address] [place] [address] 28277 MCH (RBC) [Entitic mass] 30 pg Normal 27 - 33 [facility] Comment on above: Performed By: #### 2 12405 #### [facility],[address] [place] [address] 90956 MCHC 35 X10 3 Normal 32 - 36 [facility] Comment on above: Performed By: #### 2 63854 #### [facility],[address] [place] [address] 50968 MCV (RBC) [Entitic vol] 87 fL Normal 80 - 99 [facility] Comment on above: Performed By: #### 2 50729 #### [facility],[address] [place] [address] [place] # 0.43 x10EE3/UL Normal 0.20 - 1.00 [facility] Comment on above: Performed By: #### 2 82189 #### [facility],[address] [place] [address] 86722 MONOS % 8.3 % Normal 0.0 - 10.0 [facility] Comment on above: Performed By: #### 2 66461 #### [facility],[address] [place] [address] 09475 Morphology Ibrahima (Bld) [Interp] N/A Normal [facility] Comment on above: Performed By: #### 2 69908 #### [facility],[address] [place] [address] 36838 Neut # 2.99 x10EE3/UL Normal 1.50 - 7.10 [facility] Comment on above: Performed By: #### 2 84034 #### [facility],[address] [place] [address] 34803 Neutrophils/100 WBC (Bld) 57.4 % Normal 46.0 - 76.0 [facility] Comment on above: Performed By: #### 2 27284 #### [facility],[address] [place] [address] 34221 PLATELET 278 x10EE3/UL Normal 150 - 450 [facility] Comment on above: Performed By: #### 2 31404 #### [facility],[address] [place] [address] 64863 Platelet mean volume (Bld) [Entitic vol] 9.4 fL Normal 6.6 - 10.5 [facility] Comment on above: Result Comment: AUTO MATED DIFFERENTIAL Performed By: #### 2 30452 #### [facility],[address] [place] [address] 40776 RBC 3.82 x 10EE6/UL Low 4.10 - 5.30 [facility] Comment on above: Performed By: #### 2 68604 #### [facility],[address] [place] [address] 07745 WBC 5.2 x 10EE3/UL Normal 4.5 - 10.8 [facility] Comment on above: Performed By: #### 2 98389 #### [facility],[address] [place] [address] 96357 CMP with eGFRon 04-02-2025 AGE 24 years Normal [facility] Comment on above: Performed By: #### 2 76737 ####[facility],[address] [place] [address] 76864 Albumin [Mass/Vol] 3.1 g/dL Low 3.4 - 5.0 [facility] Comment on above: Performed By: #### 2 03147 ####[facility],[address] [place] [address] 97101 Albumin/Globulin [Mass ratio] 0.9 {ratio} Normal 0.9 - 1.6 [facility] Comment on above: Performed By: #### 2 45009 ####[facility],[address] [place] [address] 58538 ALK PHOS 82 U/L Normal 46 - 116 [facility] Comment on above: Performed By: #### 2 84150 ####[facility],[address] [place] [address] 36805 ALT [Catalytic activity/Vol] 67 U/L High 16 - 63 [facility] Comment on above: Performed By: #### 2 44559 ####[facility],[address] [place] [address] 87784 Anion gap [Moles/Vol] 11 mmol/L Normal 10 - 20 [facility] Comment on above: Performed By: #### 2 01901 ####[facility],[address] [place] [address] 79498 AST [Catalytic activity/Vol] 32 U/L Normal 13 - 39 [facility] Comment on above: Performed By: #### 2 07823 ####[facility],[address] [place] [address] 61758 B/C RATIO 27 ratio Normal 0 - 30 [facility] Comment on above: Performed By: #### 2 81137 ####[facility],[address] [place] [address] 58496 Bilirubin [Mass/Vol] 0.2 mg/dL Normal 0.2 - 1.0 [facility] Comment on above: Performed By: #### 2 12825 ####[facility],[address] [place] [address] 49993 Calcium [Mass/Vol] 9.3 mg/dL Normal 8.5 - 10.1 [facility] Comment on above: Performed By: #### 2 54966 ####[facility],[address] [place] [address] 64614 Chloride [Moles/Vol] 101 mmol/L Normal 98 - 107 [facility] Comment on above: Performed By: #### 2 79236 ####[facility],[address] [place] [address] 65783 CMP with eGFR Normal [facility] Comment on above: Result Comment: COMP REHENSIVE METABOLIC PANEL Performed By: #### 2 78377 ####[facility],[address] [place] [address] 75534 CO2 [Moles/Vol] 33.0 mmol/L High 21.0 - 32.0 [facility] Comment on above: Performed By: #### 2 88950 ####[facility],[address] [place] [address] 00715 Creatinine [Mass/Vol] 0.41 mg/dL Low 0.55 - 1.02 [facility] Comment on above: Performed By: #### 2 28369 ####[facility],[address] [place] [address] 75127 GFR/1.73 sq M.predicted among non-blacks MDRD (S/P/Bld) [Vol rate/Area] mL/min/{1.73_m2} Normal 60 - 999 [facility] Comment on above: Performed By: #### 2 81006 ####[facility],[address] [place], [place] [address] Result Comment: ACCO RDING TO THE NATIONAL KIDNEY DISEASE EDUCATION PROGRAM(NKDE), A NORMAL eGFR IS A VALUE GREATER THAN OR EQUAL TO 60 ML/MIN/1.73 SQ METERS. CHRONIC KIDNEY DISEASE: <60mL/MIN/1.73 SQ METERS KIDNEY FAILURE: <15mL/MIN/1.73 SQ METERS THIS TEST SHOULD ONLY BE USED FOR PATIENTS 18 YEARS OF AGE AND OLDER. Globulin (S) [Mass/Vol] 3.6 g/dL Normal 1.5 - 3.8 [facility] Comment on above: Performed By: #### 2 97951 ####[facility],[address] [place] [address] 74331 Glucose [Mass/Vol] 123 mg/dL High 74 - 106 [facility] Comment on above: Performed By: #### 2 97027 ####[facility],[address] [place] [address] 39283 Potassium [Moles/Vol] 3.9 mmol/L Normal 3.5 - 5.1 [facility] Comment on above: Performed By: #### 2 86451 ####[address] [address] Protein [Mass/Vol] 6.7 g/dL Normal 6.4 - 8.2 [facility] Comment on above: Performed By: #### 2 08384 ####[facility],[address] [place] [address] Sodium [Moles/Vol] 141 mmol/L Normal 136 - 145 [facility] Comment on above: Performed By: #### 2 62801 ####[place] [phone] Urea nitrogen [Mass/Vol] 11 mg/dL Normal 7 - 18 [facility] Comment on above: Performed By: #### 2 79855 ####[facility],[address] [place], [place] [phone] HEMOGLOBIN A1C (POM)on 04-02 Glucose [Mass/Vol] 91.1 mg/dL High 0.0 - 0.0 [facility] Comment on above: Result Comment: BLDo HEMOGLOBIN A1C REFERENCE RANGESBLDo Suggested Diagnosis HbA1c(%) HbA1C (mmol/mol Diabetic >/=6.5 >/=48 Prediabetes 5.7 - 6.4 39 - 47 Normal <5.7 <39 Performed By: #### 2 16725 #### [facility],[address] [place], [place] [address] HbA1c (Bld) [Mass fraction] 4.8 % Normal 0.0 - 6.5 [facility] Comment on above: Performed By: #### 2 56825 #### [address] [address] LIPID PROFILEon 04-02-2025 Cholesterol [Mass/Vol] 169 mg/dL Normal 0 - 240 [facility] Comment on above: Performed By: #### 2 42550 #### [facility] [place] [address] 16043 Cholesterol in HDL [Mass/Vol] 48 mg/dL Normal 40 - 60 [facility] Comment on above: Performed By: #### 2 90088 #### [facility],[address] [place] [address] 78283 Cholesterol in LDL [Mass/Vol] 105 mg/dL Normal 0 - 129 [facility] Comment on above: Performed By: #### 2 29058 #### [facility],[address] [place] [address] 85968 Cholesterol.total/Ch olesterol in HDL [Mass ratio] 3.5 {ratio} Normal 0.0 - 5.0 [facility] Comment on above: Performed By: #### 2 94483 #### [facility],[address] [place] [address] 88966 Lipid 1996 panel Normal [facility] Comment on above: Result Comment: LIPI D PROFILE Performed By: #### 2 69518 #### [facility],[address] [place] [address] 03550 Triglyceride [Mass/Vol] 81 mg/dL Normal 0 - 150 [facility] Comment on above: Performed By: #### 2 13461 #### [facility],[address] [place] [address] 69662 CBC W Auto Differential pane l (Bld)on 03-31-2025 Basophils (Bld) [#/Vol] 0.06 x10*3/uL Normal 0.00-0.10 [facility] Comment on above: Performed By: #### 5 7021-8 ####CALE Roth ([id number])[facility] ([facility])[id number] [place] [address] 93788 Basophils/100 WBC (Bld) 0.9 % Normal 0.0-2.0 [facility] Comment on above: Performed By: #### 5 7021-8 ####CALE Roth ([id number])[facility] ([facility])[address] [place] [address] Eosinophils (Bld) [#/Vol] 0.42 x10*3/uL Normal 0.00-0.70 [facility] Comment on above: Performed By: #### 5 7021-8 ####CALE Roth ([id number])[facility] ([facility])[address] [place] [address] Eosinophils/100 WBC (Bld) 6.6 % Normal 0.0-6.0 [facility] Comment on above: Performed By: #### 5 7021-8 ####CALE Roth ([id number])[facility] ([facility])[address] [place] [address] 41834 Erythrocyte distribution width (RBC) [Ratio] 14.1 % Normal 11.5-14.5 [facility] Comment on above: Performed By: #### 5 7021-8 ####CALE Roth ([id number])[facility] ([facility])[address] [place] [address] 45091 Hematocrit (Bld) [Volume fraction] 35.6 % Low 36.0-46.0 [facility] Comment on above: Performed By: #### 5 7021-8 ####CALE Roth ([id number])[facility] ([facility])[address] [place] [address] 57106 Hemoglobin (Bld) [Mass/Vol] 11.4 g/dL Low 12.0-16.0 [facility] Comment on above: Performed By: #### 5 7021-8 ####CALE CAI L ([id number])[facility] ([facility])[address] [place] [address] Immature granulocytes (Bld) [#/Vol] 0.13 x10*3/uL Normal 0.00-0.70 [facility] Comment on above: Performed By: #### 5 7021-8 ####CALE Roth ([id number])[facility] ([facility])[address] [place] [address] Immature granulocytes/100 WBC (Bld) 2.0 % High 0.0-0.9 [facility] Comment on above: Result Comment: Aleisha ture Granulocyte Count (IG) includes promyelocytes, myelocytes and metamyelocytes but does not include bands. Percent differential counts (%) should be interpreted in the context of the absolute cell counts (cells/UL). Performed By: #### 5 7021-8 ####CALE Roth ([id number])[facility] ([facility])[address] [place] [address] Lymphocytes (Bld) [#/Vol] 1.56 x10*3/uL Normal 1.20-4.80 [facility] Comment on above: Performed By: #### 5 7021-8 ####CALE Roth ([id number])[facility] ([facility])[address] [place] [address] Lymphocytes/100 WBC (Bld) 24.5 % Normal 13.0-44.0 [facility] Comment on above: Performed By: #### 5 7021-8 ####CALE Roth ([id number])[facility] ([facility])[address] [place] [address] MCH (RBC) [Entitic mass] 29.7 pg Normal 26.0-34.0 [facility] Comment on above: Performed By: #### 5 7021-8 ####CALE Roth ([id number])[facility] ([facility])[address] [place] [address] MCHC (RBC) [Mass/Vol] 32.0 g/dL Normal 32.0-36.0 [facility] Comment on above: Performed By: #### 5 7021-8 ####CALE TOSCANOMOISAURA L (60976)[facility] ([facility])[address] [place] [address] MCV (RBC) [Entitic vol] 93 fL Normal 80-100 [facility] Comment on above: Performed By: #### 5 7021-8 ####CALE Roth ([id number])[facility] ([facility])[address] [place] [address] Monocytes (Bld) [#/Vol] 0.59 x10*3/uL Normal 0.10-1.00 [facility] Comment on above: Performed By: #### 5 7021-8 ####CALE Roth ([id number])[facility] ([facility])[address] [place] [address] Monocytes/100 WBC (Bld) 9.3 % Normal 2.0-10.0 [facility] Comment on above: Performed By: #### 5 7021-8 ####CALE Roth ([id number])[facility] ([facility])[address] [place] [address] Neutrophils (Bld) [#/Vol] 3.60 x10*3/uL Normal 1.20-7.70 [facility] Comment on above: Result Comment: Perc ent differential counts (%) should be interpreted in the context of the absolute cell counts (cells/uL). Performed By: #### 5 7021-8 ####CALE Roth ([id number])[facility] ([facility])[address] [place] [address] Neutrophils/100 WBC (Bld) 56.7 % Normal 40.0-80.0 [facility] Comment on above: Performed By: #### 5 7021-8 ####CALE Roth ([id number])[facility] ([facility])[address] [place] [address] Nucleated RBC/100 WBC (Bld) [Ratio] 0.0 /100 WBCs Normal 0.0-0.0 [facility] Comment on above: Performed By: #### 5 7021-8 ####CALE Roth ([id number])[facility] ([facility])[address] [place] [address] Platelets (Bld) [#/Vol] 241 x10*3/uL Normal 150-450 [facility] Comment on above: Performed By: #### 5 7021-8 ####CALE Roth ([id number])[facility] ([facility])[address] [place] [address] RBC (Bld) [#/Vol] 3.84 x10*6/uL Low 4.00-5.20 [facility] Comment on above: Performed By: #### 5 7021-8 ####CALE Roth ([id number])[facility] ([facility])[address] [place] [address] WBC (Bld) [#/Vol] 6.4 x10*3/uL Normal 4.4-11.3 [facility] Comment on above: Performed By: #### 5 7021-8 ####CALE Roth ([id number])[facility] ([facility])[address] [place] [address] 65321 Calcium.ionizedon 03-31-2025 Calcium.ionized (Bld) [Moles/Vol] 1.12 mmol/L Normal 1.1-1.33 [facility] Comment on above: Result Comment: The performance characteristics of ionized calcium testedin heparinized plasma or serum have been validated [facility] site where testing is performed.Testing on heparinized plasma or serum is not approved bythe FDA; however, such approval is not necessary. Performed By: #### 1 994-3 ####CALE Roth ([id number])[facility] ([facility])[address] [place] [address] 84867 Glucose Test strip manual (B ld) [Mass/Vol]on 03-31-2025 Glucose [Mass/Vol] 139 mg/dL High [address] [place] [address] Comment on above: Performed By: #### 2 341-6 ####CALE Roth ([id number])[facility] ([facility])[address] [place] [address] 28834 Glucose [Mass/Vol] 148 mg/dL [address] Comment on above: Performed By: #### 2 341-6 ####CALE Roth ([id number])[facility] ([facility])[address] [place] [address] Magnesiumon 03-31-2025 Magnesium [Mass/Vol] 2.14 mg/dL Normal 1.60-2.40 [facility] Comment on above: Performed By: #### 1 9123-9 ####CALE Roth ([id number])[facility] ([facility])[address] [place] [address] Renal function 2000 panelon 03-31-2025 Albumin BCP dye [Mass/Vol] 3.7 g/dL Normal 3.4-5.0 [facility] Comment on above: Performed By: #### 2 4362-6 ####CALE Roth ([id number])[facility] ([facility])[address] [place] [address] Anion gap [Moles/Vol] 14 mmol/L Normal 10-20 [facility] Comment on above: Performed By: #### 2 4362-6 ####CALE Roht ([id number])[facility] ([facility])[address] [place] [address] Calcium [Mass/Vol] 9.3 mg/dL Normal 8.6-10.[address] [facility] Comment on above: Performed By: #### 2 4362-6 ####CALE Roth ([id number])[facility] ([facility])[address] [place] [address] Chloride [Moles/Vol] 100 mmol/L Normal 98-107 [facility] Comment on above: Performed By: #### 2 4362-6 ####CALE Roth ([id number])[facility] ([facility])[address] [place] [address] CO2 [Moles/Vol] 28 mmol/L Normal 21-32 [facility] Comment on above: Performed By: #### 2 4362-6 ####CALE Roth ([id number])[facility] ([facility])[address] [place] [address] Creatinine [Mass/Vol] 0.32 mg/dL Low 0.50-1.05 [facility] Comment on above: Performed By: #### 2 4362-6 ####CALE Roth ([id number])[facility] ([facility])[address] [place] [address] Glomerular filtration rate >90 Normal >60 [facility] Comment on above: Result Comment: Calc ulations of estimated GFR are performed using the 2020 CKD-EPI Study Refit equation without the race variable for the IDMS-Traceable creatinine methods.https://jasn.asnjournals.org/content/early/ASN .1681120003 Performed By: #### 2 4362-6 ####CALE Roth ([id number])[facility] ([facility])[address] [place] [address] Glucose [Mass/Vol] 139 mg/dL High 74-[address] [facility] Comment on above: Performed By: #### 2 4362-6 ####CALE Roth ([id number])[facility] ([facility])[address] [place] [address] Phosphate [Mass/Vol] 3.6 mg/dL Normal 2.5-4.9 [facility] Comment on above: Performed By: #### 2 4362-6 ####CALE Roth ([id number])[facility] ([facility])[address] [place] [address] Potassium [Moles/Vol] 3.6 mmol/L Normal 3.5-5.3 [facility] Comment on above: Performed By: #### 2 4362-6 ####CALE CAI L ([id number])[facility] ([facility])[address] [place] [address] Sodium [Moles/Vol] 138 mmol/L Normal 136-[address] [facility] Comment on above: Performed By: #### 2 4362-6 ####CALE CAI L ([id number])[facility] ([facility])[address] [place] [address] Urea nitrogen [Mass/Vol] 10 mg/dL Normal 6-23 [facility] Comment on above: Performed By: #### 2 4362-6 ####CALE Roth ([id number])[facility] ([facility])[address] [place] [address] CBC W Auto Differential pane l (Bld)on 03-30-2025 Basophils (Bld) [#/Vol] 0.06 x10*3/uL Normal 0.00-0.10 [facility] Comment on above: Performed By: #### 5 7021-8 ####CALE Roth ([id number])[facility] ([facility])[address]387 [place] [address] Basophils/100 WBC (Bld) 0.7 % Normal 0.0-2.0 [facility] Comment on above: Performed By: #### 5 7021-8 ####CALE Roth ([id number])[facility] ([facility])[address] [place] [address] Eosinophils (Bld) [#/Vol] 0.33 x10*3/uL Normal 0.00-0.70 [facility] Comment on above: Performed By: #### 5 7021-8 ####CALE Roth ([id number])[facility] ([facility])[address]360 [place] [address] Eosinophils/100 WBC (Bld) 3.7 % Normal 0.0-6.0 [facility] Comment on above: Performed By: #### 5 7021-8 ####CALE Roth ([id number])[facility] ([facility])[address]22 [place] [address] Erythrocyte distribution width (RBC) [Ratio] 14.1 % Normal 11.5-14.5 [facility] Comment on above: Performed By: #### 5 7021-8 ####CALE Roth ([id number])[facility] ([facility])[address]27 [place] [address] Hematocrit (Bld) [Volume fraction] 37.3 % Normal 36.0-46.0 [facility] Comment on above: Performed By: #### 5 7021-8 ####CALE Roth ([id number])[facility] ([facility])[address]561 [place] [address] Hemoglobin (Bld) [Mass/Vol] 12.2 g/dL Normal 12.0-16.0 [facility] Comment on above: Performed By: #### 5 7021-8 ####CALE Roth ([id number])[facility] ([facility])[address]25 [place] [address] Immature granulocytes (Bld) [#/Vol] 0.16 x10*3/uL Normal 0.00-0.70 [facility] Comment on above: Performed By: #### 5 7021-8 ####CALE Roth ([id number])[facility] ([facility])[address]142 [place] [address] Immature granulocytes/100 WBC (Bld) 1.8 % High 0.0-0.9 [facility] Comment on above: Result Comment: Aleisha ture Granulocyte Count (IG) includes promyelocytes, myelocytes and metamyelocytes but does not include bands. Percent differential counts (%) should be interpreted in the context of the absolute cell counts (cells/UL). Performed By: #### 5 7021-8 ####CALE Roth ([id number])[facility] ([facility])[address]62 [place] [address] Lymphocytes (Bld) [#/Vol] 1.24 x10*3/uL Normal 1.20-4.80 [facility] Comment on above: Performed By: #### 5 7021-8 ####CALE Roth ([id number])[facility] ([facility])[address]55 [place] [address] Lymphocytes/100 WBC (Bld) 14.1 % Normal 13.0-44.0 [facility] Comment on above: Performed By: #### 5 7021-8 ####CALE Roth ([id number])[facility] ([facility])[address]82 [place] [address] MCH (RBC) [Entitic mass] 30.3 pg Normal 26.0-34.0 [facility] Comment on above: Performed By: #### 5 7021-8 ####CALE CAI L ([id number])[facility] ([facility])[address]709 [place] [address] MCHC (RBC) [Mass/Vol] 32.7 g/dL Normal 32.0-36.0 [facility] Comment on above: Performed By: #### 5 7021-8 ####CALE CAI L ([id number])[facility] ([facility])[address]285 [place] [address] MCV (RBC) [Entitic vol] 93 fL Normal 80-100 [facility] Comment on above: Performed By: #### 5 7021-8 ####CALE Roth ([id number])[facility] ([facility])[address]45 [place] [address] Monocytes (Bld) [#/Vol] 0.70 x10*3/uL Normal 0.10-1.00 [facility] Comment on above: Performed By: #### 5 7021-8 ####CALE Roth ([id number])[facility] ([facility])22750 [place] [address] Monocytes/100 WBC (Bld) 7.9 % Normal 2.0-10.0 [facility] Comment on above: Performed By: #### 5 7021-8 ####CALE TOSCANOMOTZGONZALEZ L ([id number])[facility] ([facility])67216 [place] [address] Neutrophils (Bld) [#/Vol] 6.32 x10*3/uL Normal 1.20-7.70 [facility] Comment on above: Result Comment: Perc ent differential counts (%) should be interpreted in the context of the absolute cell counts (cells/uL). Performed By: #### 5 7021-8 ####CALE Roth ([id number])[facility] ([facility])46642 [place] [address] Neutrophils/100 WBC (Bld) 71.8 % Normal 40.0-80.0 [facility] Comment on above: Performed By: #### 5 7021-8 ####CALE Roth ([id number])[facility] ([facility])[address] [place] [address] 774[address] Nucleated RBC/100 WBC (Bld) [Ratio] 0.0 /100 WBCs Normal 0.0-0.0 [facility] Comment on above: Performed By: #### 5 7021-8 ####ACLE Roth ([id number])[facility] ([facility])[address] [place] [address] 46721 Platelets (Bld) [#/Vol] 236 x10*3/uL Normal 150-450 [facility] Comment on above: Performed By: #### 5 7021-8 ####CALE Roth ([id number])[facility] ([facility])[address] [place] [address] 90872 RBC (Bld) [#/Vol] 4.03 x10*6/uL Normal 4.00-5.20 [facility] Comment on above: Performed By: #### 5 7021-8 ####CALE Roth ([id number])[facility] ([facility])[address] [place] [address] 41712 WBC (Bld) [#/Vol] 8.8 x10*3/uL Normal 4.4-11.3 [facility] Comment on above: Performed By: #### 5 7021-8 ####CALE CAI L ([id number])[facility] ([facility])[address] [place] [address]4426 Glucose Test strip manual (B ld) [Mass/Vol]on 03-30-2025 Glucose [Mass/Vol] 130 mg/dL High 74-[address] [facility] Comment on above: Performed By: #### 2 341-6 ####CALE Roth ([id number])[facility] ([facility])[address]88 [place] [address] Glucose [Mass/Vol] 127 mg/dL High [address] [place] [address] Comment on above: Performed By: #### 2 341-6 ####CALE Roth ([id number])[facility] ([facility])[address] [place] [address]6779 Glucose [Mass/Vol] 133 mg/dL High [address] [place] [address] Comment on above: Performed By: #### 2 341-6 ####CALE Roth ([id number])[facility] ([facility])[address] [place] [address]39[address] Glucose [Mass/Vol] 120 mg/dL High [address] [place] [address] Comment on above: Performed By: #### 2 341-6 ####CALE Roth ([id number])[facility] ([facility])[address] [place] [address] 74177 Glucose [Mass/Vol] 119 mg/dL High [address] [place] [address] Comment on above: Performed By: #### 2 341-6 ####CALE Roth ([id number])[facility] ([facility])[address] [place] [address] 77695 Magnesiumon 03-30-2025 Magnesium [Mass/Vol] 2.12 mg/dL Normal 1.60-2.40 [facility] Comment on above: Performed By: #### 1 9123-9 ####CALE Roth ([id number])[facility] ([facility])11065 [place] [address] Renal function 2000 panelon 03-30-2025 Albumin BCP dye [Mass/Vol] 3.8 g/dL Normal 3.4-5.0 [facility] Comment on above: Performed By: #### 2 4362-6 ####CALE Roth ([id number])[facility] ([facility])[address]138 [place] [address] Anion gap [Moles/Vol] 13 mmol/L Normal 10-20 [facility] Comment on above: Performed By: #### 2 4362-6 ####CALE Roth ([id number])[facility] ([facility])[address]84 [place] [address] Calcium [Mass/Vol] 9.4 mg/dL Normal 8.6-10.[address] [facility] Comment on above: Performed By: #### 2 4362-6 ####CALE CAI L ([id number])[facility] ([facility])44126 [place] [address] Chloride [Moles/Vol] 99 mmol/L Normal 98-107 [facility] Comment on above: Performed By: #### 2 4362-6 ####CALE CAI L ([id number])[facility] ([facility])16671 [place] [address] CO2 [Moles/Vol] 29 mmol/L Normal 21-32 [facility] Comment on above: Performed By: #### 2 4362-6 ####CALE Roth ([id number])[facility] ([facility])18349 [place] [address] Creatinine [Mass/Vol] 0.29 mg/dL Low 0.50-1.05 [facility] Comment on above: Performed By: #### 2 4362-6 ####CALE CAI L ([id number])[facility] ([facility])[address]94 [place] [address] Glomerular filtration rate >90 Normal >60 [facility] Comment on above: Result Comment: Calc ulations of estimated GFR are performed using the 2020 CKD-EPI Study Refit equation without the race variable for the IDMS-Traceable creatinine methods.https://jasn.asnjournals.org/content//ASN .2982822210 Performed By: #### 2 4362-6 ####CALE Roth ([id number])[facility] ([facility])[address]69 [place] [address] Glucose [Mass/Vol] 130 mg/dL High 74-[address] [facility] Comment on above: Performed By: #### 2 4362-6 ####CALE Roth ([id number])[facility] ([facility])[address]31 [place] [address] Phosphate [Mass/Vol] 3.3 mg/dL Normal 2.5-4.9 [facility] Comment on above: Performed By: #### 2 4362-6 ####CALE Roth ([id number])[facility] ([facility])[address] [place] [address] Potassium [Moles/Vol] 3.3 mmol/L Low 3.5-5.3 [facility] Comment on above: Performed By: #### 2 4362-6 ####CALE Roth ([id number])[facility] ([facility])[address] [place] [address] 95348 Sodium [Moles/Vol] 138 mmol/L Normal 136-[address] [facility] Comment on above: Performed By: #### 2 4362-6 ####CALE Roth ([id number])[facility] ([facility])64371 [place] [address] Urea nitrogen [Mass/Vol] 11 mg/dL Normal 6-23 [facility] Comment on above: Performed By: #### 2 4362-6 ####CALE Roth ([id number])[facility] ([facility])63151 [place] [address] Bacteriaon 03-29-2025 Bacteria identified Cx Nom (U) Normal [facility] Comment on above: Performed By: #### 6 30-4 ####CALE Roth ([id number])[facility] ([facility])14316 [place] [address] CBC W Auto Differential pane l (Bld)on 03-29-2025 Basophils (Bld) [#/Vol] 0.05 x10*3/uL Normal 0.00-0.10 [facility] Comment on above: Performed By: #### 5 7021-8 ####CALE Roth ([id number])[facility] ([facility])25292 [place] [address] Basophils/100 WBC (Bld) 0.5 % Normal 0.0-2.0 [facility] Comment on above: Performed By: #### 5 7021-8 ####CALE Roth ([id number])[facility] ([facility])37045 [place] [address] Eosinophils (Bld) [#/Vol] 0.14 x10*3/uL Normal 0.00-0.70 [facility] Comment on above: Performed By: #### 5 7021-8 ####CALE Roth ([id number])[facility] ([facility])[address] [place] [address] 00746 Eosinophils/100 WBC (Bld) 1.3 % Normal 0.0-6.0 [facility] Comment on above: Performed By: #### 5 7021-8 ####CALE Roth ([id number])[facility] ([facility])52658 [place] [address] Erythrocyte distribution width (RBC) [Ratio] 14.2 % Normal 11.5-14.5 [facility] Comment on above: Performed By: #### 5 7021-8 ####CALE Roth ([id number])[facility] ([facility])36760 [place] [address] Hematocrit (Bld) [Volume fraction] 32.9 % Low 36.0-46.0 [facility] Comment on above: Performed By: #### 5 7021-8 ####CALE Roth ([id number])[facility] ([facility])40694 [place] [address] Hemoglobin (Bld) [Mass/Vol] 11.3 g/dL Low 12.0-16.0 [facility] Comment on above: Performed By: #### 5 7021-8 ####CALE RUTLEDGEER L ([id number])[facility] ([facility])[address]60 [place] [address] Immature granulocytes (Bld) [#/Vol] 0.13 x10*3/uL Normal 0.00-0.70 [facility] Comment on above: Performed By: #### 5 7021-8 ####CALE TOSCANOMOTZER L ([id number])[facility] ([facility])[address] [place] [address] 51020 Immature granulocytes/100 WBC (Bld) 1.2 % High 0.0-0.9 [facility] Comment on above: Result Comment: Aleisha ture Granulocyte Count (IG) includes promyelocytes, myelocytes and metamyelocytes but does not include bands. Percent differential counts (%) should be interpreted in the context of the absolute cell counts (cells/UL). Performed By: #### 5 7021-8 ####CALE CAI L ([id number])[facility] ([facility])[address] [place] [address] 23256 Lymphocytes (Bld) [#/Vol] 1.21 x10*3/uL Normal 1.20-4.80 [facility] Comment on above: Performed By: #### 5 7021-8 ####CALE Roth ([id number])[facility] ([facility])[address] [place] [address] 27733 Lymphocytes/100 WBC (Bld) 10.9 % Normal 13.0-44.0 [facility] Comment on above: Performed By: #### 5 7021-8 ####CALE CAI L ([id number])[facility] ([facility])[address] [place] [address] 44544 MCH (RBC) [Entitic mass] 30.5 pg Normal 26.0-34.0 [facility] Comment on above: Performed By: #### 5 7021-8 ####CALE CAI L ([id number])[facility] ([facility])[address] [place] [address] [place] [address] MCHC (RBC) [Mass/Vol] 34.3 g/dL Normal 32.0-36.0 [facility] Comment on above: Performed By: #### 5 7021-8 ####CALE Roth ([id number])[facility] ([facility])33812 [place] [address] MCV (RBC) [Entitic vol] 89 fL Normal 80-100 [facility] Comment on above: Performed By: #### 5 7021-8 ####CALE Roth ([id number])[facility] ([facility])72692 [place] [address] Monocytes (Bld) [#/Vol] 0.75 x10*3/uL Normal 0.10-1.00 [facility] Comment on above: Performed By: #### 5 7021-8 ####CALE Roth ([id number])[facility] ([facility])05532 [place] [address] Monocytes/100 WBC (Bld) 6.8 % Normal 2.0-10.0 [facility] Comment on above: Performed By: #### 5 7021-8 ####CALE Roth ([id number])[facility] ([facility])[address] [place] [address] 76310 Neutrophils (Bld) [#/Vol] 8.79 x10*3/uL High 1.20-7.70 [facility] Comment on above: Result Comment: Perc ent differential counts (%) should be interpreted in the context of the absolute cell counts (cells/uL). Performed By: #### 5 7021-8 ####CALE Rtoh ([id number])[facility] ([facility])90981 [place] [address] Neutrophils/100 WBC (Bld) 79.3 % Normal 40.0-80.0 [facility] Comment on above: Performed By: #### 5 7021-8 ####CALE Roth ([id number])[facility] ([facility])07401 [place] [address] Nucleated RBC/100 WBC (Bld) [Ratio] 0.0 /100 WBCs Normal 0.0-0.0 [facility] Comment on above: Performed By: #### 5 7021-8 ####CALE Roth ([id number])[facility] ([facility])04663 [place] [address] Platelets (Bld) [#/Vol] 236 x10*3/uL Normal 150-450 [facility] Comment on above: Performed By: #### 5 7021-8 ####CALE Roth ([id number])[facility] ([facility])50846 [place] [address] RBC (Bld) [#/Vol] 3.71 x10*6/uL Low 4.00-5.20 [facility] Comment on above: Performed By: #### 5 7021-8 ####CALE Roth (91476)[facility] ([facility])01591 [place] [address] WBC (Bld) [#/Vol] 11.1 x10*3/uL Normal 4.4-11.3 [facility] Comment on above: Performed By: #### 5 7021-8 ####CALE Roth ([id number])[facility] ([facility])[address]17 [place] [address] CT HEAD WO IV CONTRASTon CT HEAD WO IV CONTRAST Normal [facility] Calcium.ionizedon 03-29-2025 Calcium.ionized (Bld) [Moles/Vol] 1.10 mmol/L Normal 1.1-1.33 [facility] Comment on above: Result Comment: The performance characteristics of ionized calcium testedin heparinized plasma or serum have been validated [facility] site where testing is performed.Testing on heparinized plasma or serum is not approved [facility]; however, such approval is not necessary. Performed By: #### 1 994-3 ####CALE Roth ([id number])[facility] ([facility])[address] [place] [address] 21863 Glucose Test strip manual (B ld) [Mass/Vol]on 03-29-2025 Glucose [Mass/Vol] 111 mg/dL High [address] [place] [address] Comment on above: Performed By: #### 2 341-6 ####CALE Roth ([id number])[facility] ([facility])[address] [place] [address] 21683 Glucose [Mass/Vol] 122 mg/dL High [address] [place] [address] Comment on above: Performed By: #### 2 341-6 ####CALE Roth ([id number])[facility] ([facility])[address] [place] [address] 14202 Glucose [Mass/Vol] 130 mg/dL High [address] [place] [address] Comment on above: Performed By: #### 2 341-6 ####CALE Roth ([id number])[facility] ([facility])[address] [place] [address] 07842 Glucose [Mass/Vol] 138 mg/dL High [address] [place] [address] Comment on above: Performed By: #### 2 341-6 ####CALE Roth ([id number])[facility] ([facility])[address] [place] [address] 86153 Magnesiumon 03-29-2025 Magnesium [Mass/Vol] 2.06 mg/dL Normal 1.60-2.40 [facility] Comment on above: Performed By: #### 1 9123-9 ####CALE Roth ([id number])[facility] ([facility])[address] [place] [address] 10090 RBC shape Nom (Bld)on 2024 RBC morphology finding Nom (Bld) No significant RBC morphology present Normal [facility] Comment on above: Performed By: #### 1 8225-3 ####CALE Roth ([id number])[facility] ([facility])[address] [place] [address] Renal function 2000 panelon 10-06-2025 Albumin BCP dye [Mass/Vol] 3.7 g/dL Normal 3.4-5.0 [facility] Comment on above: Performed By: #### 2 4362-6 ####CALE Roth ([id number])[facility] ([facility])22714 [place] [address] Anion gap [Moles/Vol] 11 mmol/L Normal 10-20 [facility] Comment on above: Performed By: #### 2 4362-6 ####CALE Roth ([id number])[facility] ([facility])00457 [place] [address] Calcium [Mass/Vol] 9.3 mg/dL Normal 8.6-10.[address] [facility] Comment on above: Performed By: #### 2 4362-6 ####CALE Roth ([id number])[facility] ([facility])92532 [place] [address] Chloride [Moles/Vol] 98 mmol/L Normal 98-107 [facility] Comment on above: Performed By: #### 2 4362-6 ####CALE Roth ([id number])[facility] ([facility])13169 [place] [address] CO2 [Moles/Vol] 32 mmol/L Normal 21-32 [facility] Comment on above: Performed By: #### 2 4362-6 ####CALE Roth ([id number])[facility] ([facility])45458 [place] [address] Creatinine [Mass/Vol] 0.32 mg/dL Low 0.50-1.05 [facility] Comment on above: Performed By: #### 2 4362-6 ####CALE Roth ([id number])[facility] ([facility])[address]18 [place] [address] Glomerular filtration rate >90 Normal >60 [facility] Comment on above: Result Comment: Calc ulations of estimated GFR are performed using the 2020 CKD-EPI Study Refit equation without the race variable for the IDMS-Traceable creatinine methods.https://jasn.asnjournals.org/content//ASN .7978270211 Performed By: #### 2 4362-6 ####CALE Roth ([id number])[facility] ([facility])43104 [place] [address] Glucose [Mass/Vol] 134 mg/dL High 74-[address] [facility] Comment on above: Performed By: #### 2 4362-6 ####CALE Roth ([id number])[facility] ([facility])79129 [place] [address] Phosphate [Mass/Vol] 3.0 mg/dL Normal 2.5-4.9 [facility] Comment on above: Performed By: #### 2 4362-6 ####CALE Roth ([id number])[facility] ([facility])[address]75 [place] [address] Potassium [Moles/Vol] 3.8 mmol/L Normal 3.5-5.3 [facility] Comment on above: Performed By: #### 2 4362-6 ####CALE Roth ([id number])[facility] ([facility])17779 [place] [address] Sodium [Moles/Vol] 137 mmol/L Normal 136-[address] [facility] Comment on above: Performed By: #### 2 4362-6 ####CALE Roth ([id number])[facility] ([facility])[address] [place] [address] Urea nitrogen [Mass/Vol] 12 mg/dL Normal 6-23 [facility] Comment on above: Performed By: #### 2 4362-6 ####CALE Roth ([id number])[facility] ([facility])[address] [place] [address] Urinalysis complete W Reflex Culture panel (U)on 10-06-2025 Appearance (U) Turbid Normal Clear [facility] Comment on above: Performed By: #### 5 8077-9 ####CALE Roth ([id number])[facility] ([facility])[address] [place] [address] Bilirubin (U) [Mass/Vol] Negative Normal NEGATIVE [facility] Comment on above: Performed By: #### 5 8077-9 ####CALE Roth ([id number])[facility] ([facility])[address] [place] [address] Color (U) Yellow Normal Light-Yello w, Yellow, Dark-Yellow [facility] Comment on above: Performed By: #### 5 8077-9 ####CALE Roth ([id number])[facility] ([facility])[address] [place] [address] Glucose Auto test strip (U) [Mass/Vol] Normal Normal Normal [facility] Comment on above: Performed By: #### 5 8077-9 ####CALE Roth ([id number])[facility] ([facility])[address] [place], [place] [address] Ketones (U) [Mass/Vol] Negative Normal NEGATIVE [facility] Comment on above: Performed By: #### 5 8077-9 ####CALE Roth ([id number])[facility] ([facility])[address] [place] [address] Leukocyte esterase Auto test strip Ql (U) 25 Joe/uL Abnormal NEGATIVE [facility] Comment on above: Performed By: #### 5 8077-9 ####CALE CAI L ([id number])[facility] ([facility])[address] [place] [address] Nitrite Auto test strip Ql (U) Negative Normal NEGATIVE [facility] Comment on above: Performed By: #### 5 8077-9 ####CALE Roth ([id number])[facility] ([facility])[address]346 [place] [address] pH (U) 6.5 [pH] Normal 5.0, 5.5, 6.0, 6.5, 7.0, 7.5, 8.0 [facility] Comment on above: Performed By: #### 5 8077-9 ####CALE Roth ([id number])[facility] ([facility])[address] [place] [address] 14233 Protein (U) [Mass/Vol] 10 (TRACE) Normal NEGATIVE, 10 (TRACE), 20 (TRACE) [facility] Comment on above: Performed By: #### 5 8077-9 ####CALE Roth ([id number])[facility] ([facility])[address] [place] [address] RBC (U) [#/Vol] Negative Normal NEGATIVE [facility] Comment on above: Performed By: #### 5 8077-9 ####CALE Roth ([id number])[facility] ([facility])[address] [place] [address] 22691 Specific gravity (U) [Rel density] 1.023 Normal 1.005-1.035 [facility] Comment on above: Performed By: #### 5 8077-9 ####CALE Roth ([id number])[facility] ([facility])[address] [place] [address] 28627 Urobilinogen (U) [Mass/Vol] Normal Normal Normal [facility] Comment on above: Performed By: #### 5 8077-9 ####CALE Roth ([id number])[facility] ([facility])[address] [place] [address] Urinalysis microscopic panel Auto Ql (U)on 03-29-2025 Bacteria Auto (Urine sed) [#/Area] 1+ /HPF Abnormal NONE SEEN [facility] Comment on above: Performed By: #### 5 3315-8 ####CALE Roth ([id number])[facility] ([facility])[address] [place] [address] Epithelial cells.squamous Auto (Urine sed) [#/Area] 1-9 (SPARSE) Normal Reference range not established . [facility] Comment on above: Performed By: #### 5 3315-8 ####CALE Roth ([id number])[facility] ([facility])[address] [place] [address] Mucus Auto (Urine sed) [#/Area] FEW Normal Reference range not established . [facility] Comment on above: Performed By: #### 5 3315-8 ####CALE CAI L ([id number])[facility] ([facility])[address] [place] [address] RBC Auto (Urine sed) [#/Area] 3-5 Normal NONE, 1-2, 3-5 [facility] Comment on above: Performed By: #### 5 3315-8 ####CALE Roth ([id number])[facility] ([facility])[address]47 [place] [address] WBC Auto (Urine sed) [#/Area] 1-5 Normal 1-5, NONE [facility] Comment on above: Performed By: #### 5 3315-8 ####CALE Roth ([id number])[facility] ([facility])[address] [place] [address] Yeast.budding Computer assisted (U) [#/Area] PRESENT Abnormal NONE [facility] Comment on above: Performed By: #### 5 3315-8 ####CALE Roth ([id number])[facility] ([facility])[address] [place] [address] XR ABDOMEN 1 VIEWon 03-29-20 25 XR ABDOMEN [address] [facility] CBC W Auto Differential pane l (Bld)on 03-28-2025 Basophils (Bld) [#/Vol] 0.04 x10*3/uL Normal 0.00-0.10 [facility] Comment on above: Performed By: #### 5 7021-8 ####CALE PARKERTZGONZALEZ Roth ([id number])[facility] ([facility])[address] [place] [address] Basophils/100 WBC (Bld) 0.8 % Normal 0.0-2.0 [facility] Comment on above: Performed By: #### 5 7021-8 ####CALE Roth ([id number])[facility] ([facility])[address] [place] [address] 47586 Eosinophils (Bld) [#/Vol] 0.13 x10*3/uL Normal 0.00-0.70 [facility] Comment on above: Performed By: #### 5 7021-8 ####CALE Roth ([id number])[facility] ([facility])[address] [place] [address] 10472 Eosinophils/100 WBC (Bld) 2.6 % Normal 0.0-6.0 [facility] Comment on above: Performed By: #### 5 7021-8 ####CALE Roth ([id number])[facility] ([facility])[address] [place] [address] 8[address]18 Erythrocyte distribution width (RBC) [Ratio] 14.3 % Normal 11.5-14.5 [facility] Comment on above: Performed By: #### 5 7021-8 ####CALE Roth ([id number])[facility] ([facility])[address] [place] [address] 56275 Hematocrit (Bld) [Volume fraction] 34.6 % Low 36.0-46.0 [facility] Comment on above: Performed By: #### 5 7021-8 ####CALE Roth ([id number])[facility] ([facility])[address] [place] [address]1356 Hemoglobin (Bld) [Mass/Vol] 11.5 g/dL Low 12.0-16.0 [facility] Comment on above: Performed By: #### 5 7021-8 ####CALE Roth ([id number])[facility] ([facility])[address] [place] [address] 63822 Immature granulocytes (Bld) [#/Vol] 0.15 x10*3/uL Normal 0.00-0.70 [facility] Comment on above: Performed By: #### 5 7021-8 ####CALE RUTLEDGEER L ([id number])[facility] ([facility])[address]274 [place] [address] Immature granulocytes/100 WBC (Bld) 3.0 % High 0.0-0.9 [facility] Comment on above: Result Comment: Aleisha ture Granulocyte Count (IG) includes promyelocytes, myelocytes and metamyelocytes but does not include bands. Percent differential counts (%) should be interpreted in the context of the absolute cell counts (cells/UL). Performed By: #### 5 7021-8 ####CALE Roth ([id number])[facility] ([facility])[address]142 [place] [address] Lymphocytes (Bld) [#/Vol] 1.25 x10*3/uL Normal 1.20-4.80 [facility] Comment on above: Performed By: #### 5 7021-8 ####CALE TOSCANOMOISAURA L ([id number])[facility] ([facility])[address]692 [place] [address] Lymphocytes/100 WBC (Bld) 24.6 % Normal 13.0-44.0 [facility] Comment on above: Performed By: #### 5 7021-8 ####CALE TOSCANOMOTZER L ([id number])[facility] ([facility])[address]83 [place] [address] MCH (RBC) [Entitic mass] 30.0 pg Normal 26.0-34.0 [facility] Comment on above: Performed By: #### 5 7021-8 ####CALE TOSCANOMOTZER L ([id number])[facility] ([facility])[address]210 [place] [address] MCHC (RBC) [Mass/Vol] 33.2 g/dL Normal 32.0-36.0 [facility] Comment on above: Performed By: #### 5 7021-8 ####CALE TOSCANOMOTZER L ([id number])[facility] ([facility])[address]39 [place] [address] MCV (RBC) [Entitic vol] 90 fL Normal 80-100 [facility] Comment on above: Performed By: #### 5 7021-8 ####CALE TOSCANOMOTZER L ([id number])[facility] ([facility])[address]009 [place] [address] Monocytes (Bld) [#/Vol] 0.41 x10*3/uL Normal 0.10-1.00 [facility] Comment on above: Performed By: #### 5 7021-8 ####CALE TOSCANOMOTZER L ([id number])[facility] ([facility])[address]241 [place] [address] Monocytes/100 WBC (Bld) 8.1 % Normal 2.0-10.0 [facility] Comment on above: Performed By: #### 5 7021-8 ####CALE TOSCANOMOTZER L ([id number])[facility] ([facility])[address] [place] [address] 74175 Neutrophils (Bld) [#/Vol] 3.10 x10*3/uL Normal 1.20-7.70 [facility] Comment on above: Result Comment: Perc ent differential counts (%) should be interpreted in the context of the absolute cell counts (cells/uL). Performed By: #### 5 7021-8 ####CALE Roth ([id number])[facility] ([facility])[address]11 [place] [address] Neutrophils/100 WBC (Bld) 60.9 % Normal 40.0-80.0 [facility] Comment on above: Performed By: #### 5 7021-8 ####CALE TOSCANOMOTZER L ([id number])[facility] ([facility])[address]29 [place] [address] Nucleated RBC/100 WBC (Bld) [Ratio] 0.0 /100 WBCs Normal 0.0-0.0 [facility] Comment on above: Performed By: #### 5 7021-8 ####CALE CAI L ([id number])[facility] ([facility])[address]709 [place] [address] Platelets (Bld) [#/Vol] 231 x10*3/uL Normal 150-450 [facility] Comment on above: Performed By: #### 5 7021-8 ####CALE Roth ([id number])[facility] ([facility])[address]58 [place] [address] RBC (Bld) [#/Vol] 3.83 x10*6/uL Low 4.00-5.20 [facility] Comment on above: Performed By: #### 5 7021-8 ####CALE Roth ([id number])[facility] ([facility])47266 [place] [address] WBC (Bld) [#/Vol] 5.1 x10*3/uL Normal 4.4-11.3 [facility] Comment on above: Performed By: #### 5 7021-8 ####CALE Roth ([id number])[facility] ([facility])[address] [place] [address] Calcium.ionizedon 03-28-2025 Calcium.ionized (Bld) [Moles/Vol] 1.03 mmol/L Low 1.1-1.33 [facility] Comment on above: Result Comment: The performance characteristics of ionized calcium testedin heparinized plasma or serum have been validated by [facility] site where testing is performed.Testing on heparinized plasma or serum is not approved bythe FDA; however, such approval is not necessary. Performed By: #### 1 994-3 ####CALE Roth ([id number])[facility] ([facility])[address]698 [place] [address] Glucose Test strip manual (B ld) [Mass/Vol]on 03-28-2025 Glucose [Mass/Vol] 127 mg/dL High 74-[address] [facility] Comment on above: Performed By: #### 2 341-6 ####CALE Roth ([id number])[facility] ([facility])[address]25 [place] [address] Glucose [Mass/Vol] 116 mg/dL High 74-[address] [facility] Comment on above: Performed By: #### 2 341-6 ####CALE Roth ([id number])[facility] ([facility])[address] [place] [address] Glucose [Mass/Vol] 126 mg/dL High 74-[address] [facility] Comment on above: Performed By: #### 2 341-6 ####CALE Roth ([id number])[facility] ([facility])[address]93 [place] [address] Magnesiumon 03-28-2025 Magnesium [Mass/Vol] 2.08 mg/dL Normal 1.60-2.40 [facility] Comment on above: Performed By: #### 1 9123-9 ####CALE Roth ([id number])[facility] ([facility])[address]384 [place] [address] Renal function 2000 panelon 03-28-2025 Albumin BCP dye [Mass/Vol] 4.1 g/dL Normal 3.4-5.0 [facility] Comment on above: Performed By: #### 2 4362-6 ####CALE Roth ([id number])[facility] ([facility])[address]57 [place] [address] Anion gap [Moles/Vol] 13 mmol/L Normal 10-20 [facility] Comment on above: Performed By: #### 2 4362-6 ####CALE Roth ([id number])[facility] ([facility])[address]27 [place] [address] Calcium [Mass/Vol] 9.5 mg/dL Normal 8.6-10.[address] [facility] Comment on above: Performed By: #### 2 4362-6 ####CALE Roth ([id number])[facility] ([facility])[address]853 [place] [address] Chloride [Moles/Vol] 96 mmol/L Low 98-107 [facility] Comment on above: Performed By: #### 2 4362-6 ####CALE Roth ([id number])[facility] ([facility])[address] [place] [address] CO2 [Moles/Vol] 29 mmol/L Normal 21-32 [facility] Comment on above: Performed By: #### 2 4362-6 ####CALE CAI L ([id number])[facility] ([facility])[address] [place] [address] Creatinine [Mass/Vol] 0.39 mg/dL Low 0.50-1.05 [facility] Comment on above: Performed By: #### 2 4362-6 ####CALE CAI L (19891)[facility] ([facility])[address]17 [place] [address] Glomerular filtration rate >90 Normal >60 [facility] Comment on above: Result Comment: Calc ulations of estimated GFR are performed using the 2020 CKD-EPI Study Refit equation without the race variable for the IDMS-Traceable creatinine methods.https://jasn.asnjournals.org/content///ASN .1526809034 Performed By: #### 2 4362-6 ####CALE CAI L ([id number])[facility] ([facility])[address] [place] [address] Glucose [Mass/Vol] 170 mg/dL High 74-[address] [facility] Comment on above: Performed By: #### 2 4362-6 ####CALE CAI L (47077)[facility] ([facility])[address]19 [place] [address] Phosphate [Mass/Vol] 3.1 mg/dL Normal 2.5-4.9 [facility] Comment on above: Performed By: #### 2 4362-6 ####CALE CAI L ([id number])[facility] ([facility])[address] [place] [address] Potassium [Moles/Vol] 3.9 mmol/L Normal 3.5-5.3 [facility] Comment on above: Performed By: #### 2 4362-6 ####CALE Roth (45061)[facility] ([facility])[address] [place] [address] 33317 Sodium [Moles/Vol] 134 mmol/L Low 136-[address] [facility] Comment on above: Performed By: #### 2 4362-6 ####CALE Roth ([id number])[facility] ([facility])[address] [place] [address] 23573 Urea nitrogen [Mass/Vol] 14 mg/dL Normal 6-23 [facility] Comment on above: Performed By: #### 2 4362-6 ####CALE Roth ([id number])[facility] ([facility])[address] [place] [address] 43861 XR CHEST 1 VIEWon 03-28-2025 XR CHEST 1 VIEW Normal [facility] XR CHEST 1 VIEW Normal [facility] CBC W Auto Differential pane l (Bld)on 03-27-2025 Basophils (Bld) [#/Vol] 0.04 x10*3/uL Normal 0.00-0.10 [facility] Comment on above: Performed By: #### 5 7021-8 ####CALE Roth ([id number])[facility] ([facility])[address] [place] [address] 55156 Basophils/100 WBC (Bld) 0.4 % Normal 0.0-2.0 [facility] Comment on above: Performed By: #### 5 7021-8 ####CALE Roth ([id number])[facility] ([facility])[address] [place] [address] 05162 Eosinophils (Bld) [#/Vol] 0.20 x10*3/uL Normal 0.00-0.70 [facility] Comment on above: Performed By: #### 5 7021-8 ####CALE Roth ([id number])[facility] ([facility])[address]26 [place] [address] Eosinophils/100 WBC (Bld) 2.2 % Normal 0.0-6.0 [facility] Comment on above: Performed By: #### 5 7021-8 ####CALE Roth ([id number])[facility] ([facility])[address]261 [place] [address] Erythrocyte distribution width (RBC) [Ratio] 14.4 % Normal 11.5-14.5 [facility] Comment on above: Performed By: #### 5 7021-8 ####CALE Roth ([id number])[facility] ([facility])28350 [place] [address] Hematocrit (Bld) [Volume fraction] 33.1 % Low 36.0-46.0 [facility] Comment on above: Performed By: #### 5 7021-8 ####CALE Roth ([id number])[facility] ([facility])[address]26 [place] [address] Hemoglobin (Bld) [Mass/Vol] 11.1 g/dL Low 12.0-16.0 [facility] Comment on above: Performed By: #### 5 7021-8 ####CALE Roth ([id number])[facility] ([facility])[address] [place] [address] 02909 Immature granulocytes (Bld) [#/Vol] 0.17 x10*3/uL Normal 0.00-0.70 [facility] Comment on above: Performed By: #### 5 7021-8 ####CALE Roth ([id number])[facility] ([facility])[address]91 [place] [address] Immature granulocytes/100 WBC (Bld) 1.9 % High 0.0-0.9 [facility] Comment on above: Result Comment: Aleisha ture Granulocyte Count (IG) includes promyelocytes, myelocytes and metamyelocytes but does not include bands. Percent differential counts (%) should be interpreted in the context of the absolute cell counts (cells/UL). Performed By: #### 5 7021-8 ####CALE Roth ([id number])[facility] ([facility])[address]14 [place] [address] Lymphocytes (Bld) [#/Vol] 1.31 x10*3/uL Normal 1.20-4.80 [facility] Comment on above: Performed By: #### 5 7021-8 ####CALE Roth ([id number])[facility] ([facility])[address]226 [place] [address] Lymphocytes/100 WBC (Bld) 14.3 % Normal 13.0-44.0 [facility] Comment on above: Performed By: #### 5 7021-8 ####CALE Roth ([id number])[facility] ([facility])[address]30 [place] [address] MCH (RBC) [Entitic mass] 30.7 pg Normal 26.0-34.0 [facility] Comment on above: Performed By: #### 5 7021-8 ####CALE Roth ([id number])[facility] ([facility])[address]69 [place] [address] MCHC (RBC) [Mass/Vol] 33.5 g/dL Normal 32.0-36.0 [facility] Comment on above: Performed By: #### 5 7021-8 ####CALE Roth ([id number])[facility] ([facility])22587 [place] [address] MCV (RBC) [Entitic vol] 91 fL Normal 80-100 [facility] Comment on above: Performed By: #### 5 7021-8 ####CALE Roth ([id number])[facility] ([facility])[address]361 [place] [address] Monocytes (Bld) [#/Vol] 0.52 x10*3/uL Normal 0.10-1.00 [facility] Comment on above: Performed By: #### 5 7021-8 ####CALE Roth ([id number])[facility] ([facility])[address]157 [place] [address] Monocytes/100 WBC (Bld) 5.7 % Normal 2.0-10.0 [facility] Comment on above: Performed By: #### 5 7021-8 ####CALE Roth ([id number])[facility] ([facility])[address]015 [place] [address] Neutrophils (Bld) [#/Vol] 6.89 x10*3/uL Normal 1.20-7.70 [facility] Comment on above: Result Comment: Perc ent differential counts (%) should be interpreted in the context of the absolute cell counts (cells/uL). Performed By: #### 5 7021-8 ####CALE Roth ([id number])[facility] ([facility])24136 [place] [address] Neutrophils/100 WBC (Bld) 75.5 % Normal 40.0-80.0 [facility] Comment on above: Performed By: #### 5 7021-8 ####CALE Roth ([id number])[facility] ([facility])44582 [place] [address] Nucleated RBC/100 WBC (Bld) [Ratio] 0.0 /100 WBCs Normal 0.0-0.0 [facility] Comment on above: Performed By: #### 5 7021-8 ####CALE Roth ([id number])[facility] ([facility])87708 [place] [address] Platelets (Bld) [#/Vol] 216 x10*3/uL Normal 150-450 [facility] Comment on above: Performed By: #### 5 7021-8 ####CALE Roth ([id number])[facility] ([facility])[address]67 [place] [address] RBC (Bld) [#/Vol] 3.62 x10*6/uL Low 4.00-5.20 [facility] Comment on above: Performed By: #### 5 7021-8 ####CALE Roth ([id number])[facility] ([facility])[address]16 [place] [address] WBC (Bld) [#/Vol] 9.1 x10*3/uL Normal 4.4-11.3 [facility] Comment on above: Performed By: #### 5 7021-8 ####CALE Roth ([id number])[facility] ([facility])[address]54 [place] [address] Calcium.ionizedon 03-27-2025 Calcium.ionized (Bld) [Moles/Vol] 1.20 mmol/L Normal 1.1-1.33 [facility] Comment on above: Result Comment: The performance characteristics of ionized calcium testedin heparinized plasma or serum have been validated by the[facility] where [facility] is performed.Testing on heparinized plasma or serum is [facility]; however, such approval is not necessary. Performed By: #### 1 994-3 ####CALE Roth ([id number])[facility] ([facility])[address] [place] [address] Glucose Test strip manual (B ld) [Mass/Vol]on 03-27-2025 Glucose [Mass/Vol] 134 mg/dL High [address] [place] [address] Comment on above: Performed By: #### 2 341-6 ####CALE Roth ([id number])[facility] ([facility])[address]38 [place] [address] Glucose [Mass/Vol] 131 mg/dL High [address] [place] [address] Comment on above: Performed By: #### 2 341-6 ####CALE Roth ([id number])[facility] ([facility])[address]998 [place] [address] Glucose [Mass/Vol] 123 mg/dL High [address] [place] [address] Comment on above: Performed By: #### 2 341-6 ####CALE Roth ([id number])[facility] ([facility])[id number] [place] [address] Glucose [Mass/Vol] 123 mg/dL High 74-[address] [facility] Comment on above: Performed By: #### 2 341-6 ####CALE Roth ([id number])[facility] ([facility])[address] [place] [address] Glucose [Mass/Vol] 123 mg/dL High 74-[address] [facility] Comment on above: Performed By: #### 2 341-6 ####CALE Roth ([id number])[facility] ([facility])[address] [place] [address] Glucose [Mass/Vol] 152 mg/dL High 74-[address] [facility] Comment on above: Performed By: #### 2 341-6 ####CALE Roth ([id number])[facility] ([facility])[id number] [place] [address] Magnesiumon 03-27-2025 Magnesium [Mass/Vol] 2.20 mg/dL Normal 1.60-2.40 [facility] Comment on above: Result Comment: MILD HEMOLYSIS DETECTED. The result may be falsely elevated due to hemolysis or other interferents. Clinical correlation is recommended. Repeat testing may be considered. Performed By: #### 1 9123-9 ####CALE Roth ([id number])[facility] ([facility])[id number] [place] [address] Renal function 2000 panelon 03-27-2025 Albumin BCP dye [Mass/Vol] 4.0 g/dL Normal 3.4-5.0 [facility] Comment on above: Performed By: #### 2 4362-6 ####CALE Roth ([id number])[facility] ([facility])[address] [place] [address] Anion gap [Moles/Vol] 14 mmol/L Normal - [facility] Comment on above: Performed By: #### 2 4362-6 ####CALE Roth ([id number])[facility] ([facility])[id number] [place] [address] Calcium [Mass/Vol] 9.5 mg/dL Normal 8.6-10.[address] [facility] Comment on above: Performed By: #### 2 4362-6 ####CALE Roth ([id number])[facility] ([facility])[address] [place] [address] Chloride [Moles/Vol] 99 mmol/L Normal 98-107 [facility] Comment on above: Performed By: #### 2 4362-6 ####CALE CAI L ([id number])[facility] ([facility])[address] [place] [address] CO2 [Moles/Vol] 28 mmol/L Normal 21-32 [facility] Comment on above: Performed By: #### 2 4362-6 ####CALE Roth ([id number])[facility] ([facility])[address] [place] [address] Creatinine [Mass/Vol] 0.32 mg/dL Low 0.50-1.05 [facility] Comment on above: Performed By: #### 2 4362-6 ####CALE Roth ([id number])[facility] ([facility])[address] [place] [address] Glomerular filtration rate >90 Normal >60 [facility] Comment on above: Result Comment: Calc ulations of estimated GFR are performed using the 2020 CKD-EPI Study Refit equation without the race variable for the IDMS-Traceable creatinine methods.https://jasn.asnjournals.org/content/early//ASN .0881114051 Performed By: #### 2 4362-6 ####CALE Roth ([id number])[facility] ([facility])[address] [place] [address] Glucose [Mass/Vol] 122 mg/dL High 74-[address] [facility] Comment on above: Performed By: #### 2 4362-6 ####CALE Roth ([id number])[facility] ([facility])[address] [place] [address] Phosphate [Mass/Vol] 3.4 mg/dL Normal 2.5-4.9 [facility] Comment on above: Result Comment: MILD HEMOLYSIS DETECTED. The result may be falsely elevated due to hemolysis or other interferents. Clinical correlation is recommended. Repeat testing may be considered. Performed By: #### 2 4362-6 ####CALE Roth ([id number])[facility] ([facility])[address] [place] [address] Potassium [Moles/Vol] 4.1 mmol/L Normal 3.5-5.3 [facility] Comment on above: Result Comment: MILD HEMOLYSIS DETECTED. The result may be falsely elevated due to hemolysis or other interferents. Clinical correlation is recommended. Repeat testing may be considered. Performed By: #### 2 4362-6 ####CALE Roth ([id number])[facility] ([facility])[address] [place] [address] Sodium [Moles/Vol] 137 mmol/L Normal 136-[address] [facility] Comment on above: Performed By: #### 2 4362-6 ####CALE Roth ([id number])[facility] ([facility])[address] [place] [address] Urea nitrogen [Mass/Vol] 12 mg/dL Normal 6-23 [facility] Comment on above: Performed By: #### 2 4362-6 ####CALE Roth ([id number])[facility] ([facility])[address] [place] [address] C reactive proteinon 025 CRP [Mass/Vol] 3.41 mg/dL High <1.00 [facility] Comment on above: Performed By: #### 1 988-5 ####CALE Roth ([id number])[facility] ([facility])[address] [place] [address] CBC W Auto Differential pane l (Bld)on 03-26-2025 Basophils (Bld) [#/Vol] 0.02 x10*3/uL Normal 0.00-0.10 [facility] Comment on above: Performed By: #### 5 7021-8 ####CALE Roth ([id number])[facility] ([facility])[address] [place] [address] Basophils/100 WBC (Bld) 0.2 % Normal 0.0-2.0 [facility] Comment on above: Performed By: #### 5 7021-8 ####CALE Roth ([id number])[facility] ([facility])[address] [place] [address] Eosinophils (Bld) [#/Vol] 0.25 x10*3/uL Normal 0.00-0.70 [facility] Comment on above: Performed By: #### 5 7021-8 ####CALE Roth ([id number])[facility] ([facility])[address] [place] [address] Eosinophils/100 WBC (Bld) 3.1 % Normal 0.0-6.0 [facility] Comment on above: Performed By: #### 5 7021-8 ####CALE Roth ([id number])[facility] ([facility])[address]133 [place] [address] Erythrocyte distribution width (RBC) [Ratio] 13.9 % Normal 11.5-14.5 [facility] Comment on above: Performed By: #### 5 7021-8 ####CALE Roth ([id number])[facility] ([facility])[address] [place] [address] Hematocrit (Bld) [Volume fraction] 26.2 % Low 36.0-46.0 [facility] Comment on above: Performed By: #### 5 7021-8 ####CALE Roth ([id number])[facility] ([facility])[address] [place] [address] Hemoglobin (Bld) [Mass/Vol] 9.5 g/dL Low 12.0-16.0 [facility] Comment on above: Performed By: #### 5 7021-8 ####CALE Roth ([id number])[facility] ([facility])[address] [place] [address] Immature granulocytes (Bld) [#/Vol] 0.16 x10*3/uL Normal 0.00-0.70 [facility] Comment on above: Performed By: #### 5 7021-8 ####CALE TOSCANOMOISAURA L (45541)[facility] ([facility])[address]242 [place] [address] Immature granulocytes/100 WBC (Bld) 2.0 % High 0.0-0.9 [facility] Comment on above: Result Comment: Aleisha ture Granulocyte Count (IG) includes promyelocytes, myelocytes and metamyelocytes but does not include bands. Percent differential counts (%) should be interpreted in the context of the absolute cell counts (cells/UL). Performed By: #### 5 7021-8 ####CALE Roth ([id number])[facility] ([facility])[address]762 [place] [address] Lymphocytes (Bld) [#/Vol] 1.40 x10*3/uL Normal 1.20-4.80 [facility] Comment on above: Performed By: #### 5 7021-8 ####CALE Roth ([id number])[facility] ([facility])[address]160 [place] [address] Lymphocytes/100 WBC (Bld) 17.5 % Normal 13.0-44.0 [facility] Comment on above: Performed By: #### 5 7021-8 ####CALE CAI L ([id number])[facility] ([facility])[address] [place] [address] MCH (RBC) [Entitic mass] 30.4 pg Normal 26.0-34.0 [facility] Comment on above: Performed By: #### 5 7021-8 ####CALE CAI L ([id number])[facility] ([facility])[address]247 [place] [address] MCHC (RBC) [Mass/Vol] 36.3 g/dL High 32.0-36.0 [facility] Comment on above: Performed By: #### 5 7021-8 ####CALE Roth ([id number])[facility] ([facility])[address]23 [place] [address] MCV (RBC) [Entitic vol] 84 fL Normal 80-100 [facility] Comment on above: Performed By: #### 5 7021-8 ####CALE Roth (54950)[facility] ([facility])[address]33 [place] [address] Monocytes (Bld) [#/Vol] 0.49 x10*3/uL Normal 0.10-1.00 [facility] Comment on above: Performed By: #### 5 7021-8 ####CALE Roth ([id number])[facility] ([facility])[address]137 [place] [address] Monocytes/100 WBC (Bld) 6.1 % Normal 2.0-10.0 [facility] Comment on above: Performed By: #### 5 7021-8 ####CALE Roth ([id number])[facility] ([facility])[address]27 [place] [address] Neutrophils (Bld) [#/Vol] 5.69 x10*3/uL Normal 1.20-7.70 [facility] Comment on above: Result Comment: Perc ent differential counts (%) should be interpreted in the context of the absolute cell counts (cells/uL). Performed By: #### 5 7021-8 ####CALE Roth ([id number])[facility] ([facility])[address] [place] [address] Neutrophils/100 WBC (Bld) 71.1 % Normal 40.0-80.0 [facility] Comment on above: Performed By: #### 5 7021-8 ####CALE Roth ([id number])[facility] ([facility])[address]88 [place] [address] Nucleated RBC/100 WBC (Bld) [Ratio] 0.0 /100 WBCs Normal 0.0-0.0 [facility] Comment on above: Performed By: #### 5 7021-8 ####CALE Roth ([id number])[facility] ([facility])[address]28 [place] [address] Platelets (Bld) [#/Vol] 234 x10*3/uL Normal 150-450 [facility] Comment on above: Performed By: #### 5 7021-8 ####CALE Roth ([id number])[facility] ([facility])[address]83 [place] [address] RBC (Bld) [#/Vol] 3.12 x10*6/uL Low 4.00-5.20 [facility] Comment on above: Performed By: #### 5 7021-8 ####CALE Roth ([id number])[facility] ([facility])[address]49 [place] [address] WBC (Bld) [#/Vol] 8.0 x10*3/uL Normal 4.4-11.3 [facility] Comment on above: Performed By: #### 5 7021-8 ####CALE Roth ([id number])[facility] ([facility])[address]45 [place] [address] CT HEAD WO IV CONTRASTon CT HEAD WO IV CONTRAST Normal [facility] Calcium.ionizedon 03-26-2025 Calcium.ionized (Bld) [Moles/Vol] 1.20 mmol/L Normal 1.1-1.33 [facility] Comment on above: Result Comment: The performance characteristics of ionized calcium testedin heparinized plasma or serum have been validated [facility] where testing is performed.Testing on heparinized plasma or serum is not approved bythe FDA; however, such approval is not necessary. Performed By: #### 1 994-3 ####CALE Roth ([id number])[facility] ([facility])[address]67 [place] [address] ESR Westergren method (Bld) [Velocity]on 03-26-2025 ESR (Bld) [Velocity] 33 mm/h High 0-20 [facility] Comment on above: Performed By: #### 4 537-7 ####CALE Roth ([id number])[facility] ([facility])[address]399 [place] [address] Glucose Test strip manual (B ld) [Mass/Vol]on 03-26-2025 Glucose [Mass/Vol] 128 mg/dL High 74-[address] [facility] Comment on above: Performed By: #### 2 341-6 ####CALE Roth ([id number])[facility] ([facility])[address] [place] [address] Glucose [Mass/Vol] 124 mg/dL High 74-[address] [facility] Comment on above: Performed By: #### 2 341-6 ####CALE Roth ([id number])[facility] ([facility])[address] [place] [address] Glucose [Mass/Vol] 113 mg/dL High 74-[address] [facility] Comment on above: Performed By: #### 2 341-6 ####CALE Roth ([id number])[facility] ([facility])[address] [place] [address] Magnesiumon 03-26-2025 Magnesium [Mass/Vol] 1.82 mg/dL Normal 1.60-2.40 [facility] Comment on above: Performed By: #### 1 9123-9 ####CALE Roth ([id number])[facility] ([facility])[address] [place] [address] Renal function 2000 panelon 03-26-2025 Albumin BCP dye [Mass/Vol] 3.6 g/dL Normal 3.4-5.0 [facility] Comment on above: Performed By: #### 2 4362-6 ####CALE Roth ([id number])[facility] ([facility])[address]58 [place] [address] Anion gap [Moles/Vol] 12 mmol/L Normal 10-20 [facility] Comment on above: Performed By: #### 2 4362-6 ####CALE Roth (94725)[facility] ([facility])[address]206 [place] [address] Calcium [Mass/Vol] 8.8 mg/dL Normal 8.6-10.[address] [facility] Comment on above: Performed By: #### 2 4362-6 ####CALE Roth ([id number])[facility] ([facility])[address]94 [place] [address] Chloride [Moles/Vol] 103 mmol/L Normal 98-107 [facility] Comment on above: Performed By: #### 2 4362-6 ####CALE Roth ([id number])[facility] ([facility])[address]29 [place] [address] CO2 [Moles/Vol] 27 mmol/L Normal 21-32 [facility] Comment on above: Performed By: #### 2 4362-6 ####CALE Roth ([id number])[facility] ([facility])[address]63 [place] [address] Creatinine [Mass/Vol] 0.24 mg/dL Low 0.50-1.05 [facility] Comment on above: Performed By: #### 2 4362-6 ####CALE Roth ([id number])[facility] ([facility])[address]148 [place] [address] Glomerular filtration rate >90 Normal >60 [facility] Comment on above: Result Comment: Calc ulations of estimated GFR are performed using the 2020 CKD-EPI Study Refit equation without the race variable for the IDMS-Traceable creatinine methods.https://jasn.asnjournals.org/content//ASN .3984757382 Performed By: #### 2 4362-6 ####CALE Roth ([id number])[facility] ([facility])[address]159 [place] [address] Glucose [Mass/Vol] 122 mg/dL High 74-[address] [facility] Comment on above: Performed By: #### 2 4362-6 ####CALE Roth ([id number])[facility] ([facility])[address]842 [place] [address] Phosphate [Mass/Vol] 2.3 mg/dL Low 2.5-4.9 [facility] Comment on above: Performed By: #### 2 4362-6 ####CALE Roth (05958)[facility] ([facility])11927 [place] [address] Potassium [Moles/Vol] 3.4 mmol/L Low 3.5-5.3 [facility] Comment on above: Performed By: #### 2 4362-6 ####CALE Rtoh ([id number])[facility] ([facility])[address]82 [place] [address] Sodium [Moles/Vol] 139 mmol/L Normal 136-[address] [facility] Comment on above: Performed By: #### 2 4362-6 ####CALE Roth ([id number])[facility] ([facility])[address]287 [place] [address] Urea nitrogen [Mass/Vol] 8 mg/dL Normal 6-23 [facility] Comment on above: Performed By: #### 2 4362-6 ####CALE Roth ([id number])[facility] ([facility])[address]677 [place] [address] Thyrotropinon 03-26-2025 TSH Qn 3.32 m[IU]/L Normal 0.44-3.98 [facility] Comment on above: Order Comment: TSH t esting is performed using different testing methodology at [facility] than at other [facility]. Direct result comparisons should only be made within the same method. Performed By: #### 3 016-3 ####CALE Roth ([id number])[facility] ([facility])[address]4724 [place] [address] Thyroxine.freeon 03-26-2025 Free T4 [Mass/Vol] 1.58 ng/dL High 0.78-1.[address] [facility] Comment on above: Order Comment: Thyro xine Free testing is performed using different testing methodology at [facility] than at other [facility]. Direct result comparisons should only be made within the same method. Performed By: #### 3 024-7 ####CALE Roth ([id number])[facility] ([facility])[address] [place] [address] Triiodothyronine.freeon Free T3 [Mass/Vol] 2.8 pg/mL Normal 2.3-4.[address] [facility] Comment on above: Performed By: #### 3 051-0 ####CALE Roth ([id number])[facility] ([facility])[address]34 [place] [address] C reactive proteinon 025 CRP [Mass/Vol] 4.86 mg/dL High <1.00 [facility] Comment on above: Performed By: #### 1 988-5 ####CALE Roth ([id number])[facility] ([facility])[address] [place] [address] CBC W Auto Differential pane l (Bld)on 03-25-2025 Basophils (Bld) [#/Vol] 0.02 x10*3/uL Normal 0.00-0.10 [facility] Comment on above: Performed By: #### 5 7021-8 ####CALE Roth ([id number])[facility] ([facility])[address] [place] [address]99[address] Basophils/100 WBC (Bld) 0.1 % Normal 0.0-2.0 [facility] Comment on above: Performed By: #### 5 7021-8 ####CALE Roth ([id number])[facility] ([facility])07663 [place] [address] Eosinophils (Bld) [#/Vol] 0.12 x10*3/uL Normal 0.00-0.70 [facility] Comment on above: Performed By: #### 5 7021-8 ####CALE Roth ([id number])[facility] ([facility])[address] [place] [address] Eosinophils/100 WBC (Bld) 0.9 % Normal 0.0-6.0 [facility] Comment on above: Performed By: #### 5 7021-8 ####CALE Roth ([id number])[facility] ([facility])[address] [place] [address]326 Erythrocyte distribution width (RBC) [Ratio] 13.6 % Normal 11.5-14.5 [facility] Comment on above: Performed By: #### 5 7021-8 ####CALE Roth ([id number])[facility] ([facility])[address] [place] [address] Hematocrit (Bld) [Volume fraction] 30.3 % Low 36.0-46.0 [facility] Comment on above: Performed By: #### 5 7021-8 ####CALE Roth ([id number])[facility] ([facility])[address] [place] [address]47[address] Hemoglobin (Bld) [Mass/Vol] 10.8 g/dL Low 12.0-16.0 [facility] Comment on above: Performed By: #### 5 7021-8 ####CALE CAI L ([id number])[facility] ([facility])[address] [place] [address] Immature granulocytes (Bld) [#/Vol] 0.16 x10*3/uL Normal 0.00-0.70 [facility] Comment on above: Performed By: #### 5 7021-8 ####CALE Roth ([id number])[facility] ([facility])[address] [place] [address]84[address] Immature granulocytes/100 WBC (Bld) 1.1 % High 0.0-0.9 [facility] Comment on above: Result Comment: Aleisha ture Granulocyte Count (IG) includes promyelocytes, myelocytes and metamyelocytes but does not include bands. Percent differential counts (%) should be interpreted in the context of the absolute cell counts (cells/UL). Performed By: #### 5 7021-8 ####CALE Roth ([id number])[facility] ([facility])[address]133 [place] [address] Lymphocytes (Bld) [#/Vol] 1.36 x10*3/uL Normal 1.20-4.80 [facility] Comment on above: Performed By: #### 5 7021-8 ####CALE Roth ([id number])[facility] ([facility])[address]64 [place] [address] Lymphocytes/100 WBC (Bld) 9.8 % Normal 13.0-44.0 [facility] Comment on above: Performed By: #### 5 7021-8 ####CALE Roth ([id number])[facility] ([facility])[address]210 [place] [address] MCH (RBC) [Entitic mass] 30.5 pg Normal 26.0-34.0 [facility] Comment on above: Performed By: #### 5 7021-8 ####CALE Roth ([id number])[facility] ([facility])[address]406 [place] [address] MCHC (RBC) [Mass/Vol] 35.6 g/dL Normal 32.0-36.0 [facility] Comment on above: Performed By: #### 5 7021-8 ####CALE Roth ([id number])[facility] ([facility])[address]397 [place] [address] MCV (RBC) [Entitic vol] 86 fL Normal 80-100 [facility] Comment on above: Performed By: #### 5 7021-8 ####CALE Roth ([id number])[facility] ([facility])[address]12 [place] [address] Monocytes (Bld) [#/Vol] 0.95 x10*3/uL Normal 0.10-1.00 [facility] Comment on above: Performed By: #### 5 7021-8 ####CALE Roth ([id number])[facility] ([facility])[address]270 [place] [address] Monocytes/100 WBC (Bld) 6.8 % Normal 2.0-10.0 [facility] Comment on above: Performed By: #### 5 7021-8 ####CALE CAI L ([id number])[facility] ([facility])[address]663 [place] [address] Neutrophils (Bld) [#/Vol] 11.31 x10*3/uL High 1.20-7.70 [facility] Comment on above: Result Comment: Perc ent differential counts (%) should be interpreted in the context of the absolute cell counts (cells/uL). Performed By: #### 5 7021-8 ####CALE Roth ([id number])[facility] ([facility])[address]13 [place] [address] Neutrophils/100 WBC (Bld) 81.3 % Normal 40.0-80.0 [facility] Comment on above: Performed By: #### 5 7021-8 ####CALE Roth ([id number])[facility] ([facility])[address]43 [place] [address] Nucleated RBC/100 WBC (Bld) [Ratio] 0.0 /100 WBCs Normal 0.0-0.0 [facility] Comment on above: Performed By: #### 5 7021-8 ####CALE CAI L ([id number])[facility] ([facility])[address]90 [place] [address] Platelets (Bld) [#/Vol] 282 x10*3/uL Normal 150-450 [facility] Comment on above: Performed By: #### 5 7021-8 ####CALE Roth ([id number])[facility] ([facility])[address]331 [place] [address] RBC (Bld) [#/Vol] 3.54 x10*6/uL Low 4.00-5.20 [facility] Comment on above: Performed By: #### 5 7021-8 ####CALE Roth ([id number])[facility] ([facility])[address] [place] [address]252 WBC (Bld) [#/Vol] 13.9 x10*3/uL High 4.4-11.3 [facility] Comment on above: Performed By: #### 5 7021-8 ####CALE Roth ([id number])[facility] ([facility])[id number] [place] [address] 02323 CBC panel Auto (Bld)on 03-25 Erythrocyte distribution width (RBC) [Ratio] 13.9 % Normal 11.5-14.5 [facility] Comment on above: Performed By: #### 5 8410-2 ####CALE Roth ([id number])[facility] ([facility])[address] [place] [address] [id number] Hematocrit (Bld) [Volume fraction] 30.0 % Low 36.0-46.0 [facility] Comment on above: Performed By: #### 5 8410-2 ####CALE Roth ([id number])[facility] ([facility])[id number] [place] [address] 38139 Hemoglobin (Bld) [Mass/Vol] 10.6 g/dL Low 12.0-16.0 [facility] Comment on above: Performed By: #### 5 8410-2 ####CALE Roth ([id number])[facility] ([facility])[id number] [place] [address] 79719 MCH (RBC) [Entitic mass] 30.4 pg Normal 26.0-34.0 [facility] Comment on above: Performed By: #### 5 8410-2 ####CALE Roth ([id number])[facility] ([facility])[address] [place] [address] MCHC (RBC) [Mass/Vol] 35.3 g/dL Normal 32.0-36.0 [facility] Comment on above: Performed By: #### 5 8410-2 ####CALE Roth ([id number])[facility] ([facility])[address] [place] [address] MCV (RBC) [Entitic vol] 86 fL Normal 80-100 [facility] Comment on above: Performed By: #### 5 8410-2 ####CALE Roth ([id number])[facility] ([facility])[address] [place] [address] Nucleated RBC/100 WBC (Bld) [Ratio] 0.0 /100 WBCs Normal 0.0-0.0 [facility] Comment on above: Performed By: #### 5 8410-2 ####CALE Roth ([id number])[facility] ([facility])[address] [place] [address] Platelets (Bld) [#/Vol] 293 x10*3/uL Normal 150-450 [facility] Comment on above: Performed By: #### 5 8410-2 ####CALE Roth ([id number])[facility] ([facility])[address] [place] [address] RBC (Bld) [#/Vol] 3.49 x10*6/uL Low 4.00-5.20 [facility] Comment on above: Performed By: #### 5 8410-2 ####CALE Roth ([id number])[facility] ([facility])[address] [place] [address] WBC (Bld) [#/Vol] 13.2 x10*3/uL High 4.4-11.3 [facility] Comment on above: Performed By: #### 5 8410-2 ####CALE Roth ([id number])[facility] ([facility])[address] [place] [address] Calcium.ionizedon 03-25-2025 Calcium.ionized (Bld) [Moles/Vol] 1.13 mmol/L Normal 1.1-1.33 [facility] Comment on above: Result Comment: The performance characteristics of ionized calcium testedin heparinized plasma or serum have been validated [facility] where [facility].Testing on heparinized plasma or serum is not approved [facility] FDA; however, such approval is not necessary. Performed By: #### 1 994-3 ####CALE Roth ([id number])[facility] ([facility])[address] [place] [address] Calcium.ionized (Bld) [Moles/Vol] 1.25 mmol/L Normal 1.1-1.33 [facility] Comment on above: Result Comment: The performance characteristics of ionized calcium testedin heparinized plasma or serum have been validated [facility] where [facility] is performed.Testing on heparinized plasma or serum is not approved [facility] FDA; however, such approval is not necessary. Performed By: #### 1 994-3 ####CALE Roth ([id number])[facility] ([facility])[address] [place] [address] ECG 12-LEADon 03-25-2025 ECG 12-LEAD Ventricular Rate 130 Atrial Rate 130 P-R Interval 142 QRS Duration 76 Q-T Interval 292 QTC Calculation(Bazett) 429 P Thendara 65 R Thendara 95 T Thendara -13 QRS Count 22 Q Onset 220 P Onset 149 P Offset 206 T Offset 366 QTC Fredericia 378 Diagnosis Sinus tachycardia Rightward axis Cannot rule out Anterior infarct , age undetermined ST & T wave abnormality, consider inferior ischemia Abnormal ECG When compared with ECG of 21-MAR-2025 14:10, Minimal criteria for Anterior infarct are now Present Confirmed by Lemuel Babin ([id number]) on 03/26/2025 3:19:58 PM Normal [facility] ESR Westergren method (Bld) [Velocity]on 03-25-2025 ESR (Bld) [Velocity] 33 mm/h High 0-20 [facility] Comment on above: Performed By: #### 4 537-7 ####CALE Roth ([id number])[facility] ([facility])[address] [place] [address] Gas and Carbon monoxide and Electrolytes panel (BldA)on 03-25-2025 Anion gap 4 (BldA) [Moles/Vol] 7 mmo/L Low 10-25 [facility] Comment on above: Performed By: #### 9 3685-6 ####CALE Roth ([id number])[facility] ([facility])[address] [place] [address] Base excess Calc (Bld) [Moles/Vol] 3.1 mmol/L High -2.0-3.0 [facility] Comment on above: Performed By: #### 9 3685-6 ####CAEL Roth ([id number])[facility] ([facility])[address] [place] [address] Calcium.ionized (BldA) [Moles/Vol] 1.15 mmol/L Normal 1.10-1.33 [facility] Comment on above: Performed By: #### 9 3685-6 ####CALE Roth ([id number])[facility] ([facility])[address] [place] [address] Chloride (BldA) [Moles/Vol] 109 mmol/L High 98-107 [facility] Comment on above: Performed By: #### 9 3685-6 ####CALE Roth ([id number])[facility] ([facility])[address] [place] [address] CO2 (Bld) [Partial pressure] 36 mm Hg Low 38-42 [facility] Comment on above: Performed By: #### 9 3685-6 ####CALE Roth ([id number])[facility] ([facility])[address]46 [place] [address] Glucose [Mass/Vol] 117 mg/dL High 74-[address] [facility] Comment on above: Performed By: #### 9 3685-6 ####CALE Roth ([id number])[facility] ([facility])[address] [place] [address] HCO3 (Bld) [Moles/Vol] 26.8 mmol/L High 22.0-26.0 [facility] Comment on above: Performed By: #### 9 3685-6 ####CALE Roth ([id number])[facility] ([facility])[address] [place] [address] Hematocrit Est (Bld) [Volume fraction] 24.0 % Low 36.0-46.0 [facility] Comment on above: Performed By: #### 9 3685-6 ####CALE Roth ([id number])[facility] ([facility])[address] [place] [address] Hemoglobin (Bld) [Mass/Vol] 7.9 g/dL Low 12.0-16.0 [facility] Comment on above: Performed By: #### 9 3685-6 ####CALE Roth ([id number])[facility] ([facility])[address] [place] [address] Inhaled oxygen concentration 21 % Normal [facility] Comment on above: Performed By: #### 9 3685-6 ####CALE Roth ([id number])[facility] ([facility])[address] [place] [address] Lactate (BldA) [Moles/Vol] 0.8 mmol/L Normal 0.4-2.0 [facility] Comment on above: Performed By: #### 9 3685-6 ####CALE CAI L ([id number])[facility] ([facility])[address] [place] [address] Oxygen (Bld) [Partial pressure] 129 mm Hg High 85-95 [facility] Comment on above: Performed By: #### 9 3685-6 ####CALE CAI L ([id number])[facility] ([facility])[address] [place] [address] Oxyhemoglobin (BldA) [Mass fraction] 98.4 % High 94.0-98.0 [facility] Comment on above: Performed By: #### 9 3685-6 ####CALE Roth ([id number])[facility] ([facility])[address] [place] [address] pH (Bld) 7.48 [pH] High 7.38-7.42 [facility] Comment on above: Performed By: #### 9 3685-6 ####CALE Roth ([id number])[facility] ([facility])[address] [place] [address] Potassium (BldA) [Moles/Vol] 3.3 mmol/L Low 3.5-5.3 [facility] Comment on above: Performed By: #### 9 3685-6 ####CALE Roth ([id number])[facility] ([facility])[address] [place] [address] Sodium (BldA) [Moles/Vol] 139 mmol/L Normal 136-145 [facility] Comment on above: Performed By: #### 9 3685-6 ####CALE Roth ([id number])[facility] ([facility])[address] [place] [address] Glucose Test strip manual (B ld) [Mass/Vol]on 03-25-2025 Glucose [Mass/Vol] 112 mg/dL High 74-[address] [facility] Comment on above: Performed By: #### 2 341-6 ####CALE Roth ([id number])[facility] ([facility])[address] [place] [address] Glucose [Mass/Vol] 117 mg/dL High 74-[address] [facility] Comment on above: Performed By: #### 2 341-6 ####CALE Roth ([id number])[facility] ([facility])[address] [place] [address] Glucose [Mass/Vol] 112 mg/dL High 74-[address] [facility] Comment on above: Performed By: #### 2 341-6 ####CALE Roth ([id number])[facility] ([facility])[address] [place] [address] Glucose [Mass/Vol] 93 mg/dL Normal 74-[address] [facility] Comment on above: Performed By: #### 2 341-6 ####CALE Roth ([id number])[facility] ([facility])[address] [place] [address] 80094 Lactateon 03-25-2025 Lactate [Moles/Vol] 0.6 mmol/L Normal 0.4-2.0 [facility] Comment on above: Order Comment: Venip uncture immediately after or during the administration of Metamizole may lead to falsely low results. Testing should be performed immediately prior to Metamizole dosing. Performed By: #### 2 524-7 ####CALE Roth ([id number])[facility] ([facility])[address] [place] [address] 24178 Magnesiumon 03-25-2025 Magnesium [Mass/Vol] 1.87 mg/dL Normal 1.60-2.40 [facility] Comment on above: Performed By: #### 1 9123-9 ####CALE Roth ([id number])[facility] ([facility])[address] [place] [address] 31776 Magnesium [Mass/Vol] 2.00 mg/dL Normal 1.60-2.40 [facility] Comment on above: Performed By: #### 1 9123-9 ####CALE Roth ([id number])[facility] ([facility])[address]188 [place] [address] Renal function 2000 panelon 03-25-2025 Albumin BCP dye [Mass/Vol] 4.0 g/dL Normal 3.4-5.0 [facility] Comment on above: Performed By: #### 2 4362-6 ####CALE Roth ([id number])[facility] ([facility])[address] [place] [address] 96950 Anion gap [Moles/Vol] 12 mmol/L Normal 10-20 [facility] Comment on above: Performed By: #### 2 4362-6 ####CALE Roth ([id number])[facility] ([facility])[address]22 [place] [address] Calcium [Mass/Vol] 9.1 mg/dL Normal 8.6-10.[address] [facility] Comment on above: Performed By: #### 2 4362-6 ####CALE CAI L ([id number])[facility] ([facility])[address]957 [place] [address] Chloride [Moles/Vol] 102 mmol/L Normal 98-107 [facility] Comment on above: Performed By: #### 2 4362-6 ####CALE CAI L ([id number])[facility] ([facility])[address]80 [place] [address] CO2 [Moles/Vol] 26 mmol/L Normal 21-32 [facility] Comment on above: Performed By: #### 2 4362-6 ####CALE Roth ([id number])[facility] ([facility])[address]51 [place] [address] Creatinine [Mass/Vol] 0.28 mg/dL Low 0.50-1.05 [facility] Comment on above: Performed By: #### 2 4362-6 ####CALE CAI L ([id number])[facility] ([facility])[address]133 [place] [address] Glomerular filtration rate >90 Normal >60 [facility] Comment on above: Result Comment: Calc ulations of estimated GFR are performed using the 2020 CKD-EPI Study Refit equation without the race variable for the IDMS-Traceable creatinine methods.https://jasn.asnjournals.org/content//ASN .0931403046 Performed By: #### 2 4362-6 ####CALE Roth ([id number])[facility] ([facility])[address]70 [place] [address] Glucose [Mass/Vol] 130 mg/dL High 74-[address] [facility] Comment on above: Performed By: #### 2 4362-6 ####CALE Roth ([id number])[facility] ([facility])[address]83 [place] [address] Phosphate [Mass/Vol] 2.3 mg/dL Low 2.5-4.9 [facility] Comment on above: Performed By: #### 2 4362-6 ####CALE Roth ([id number])[facility] ([facility])[address]33 [place] [address] Potassium [Moles/Vol] 3.9 mmol/L Normal 3.5-5.3 [facility] Comment on above: Performed By: #### 2 4362-6 ####CALE Roth ([id number])[facility] ([facility])[address]37 [place] [address] Sodium [Moles/Vol] 136 mmol/L Normal 136-[address] [facility] Comment on above: Performed By: #### 2 4362-6 ####CALE Roth ([id number])[facility] ([facility])[address]22 [place] [address] Urea nitrogen [Mass/Vol] 6 mg/dL Normal 6-23 [facility] Comment on above: Performed By: #### 2 4362-6 ####CALE Roth ([id number])[facility] ([facility])[address] [place] [address] Albumin BCP dye [Mass/Vol] 4.0 g/dL Normal 3.4-5.0 [facility] Comment on above: Performed By: #### 2 4362-6 ####CALE Roth ([id number])[facility] ([facility])[address]592 [place] [address] Anion gap [Moles/Vol] 14 mmol/L Normal 10-20 [facility] Comment on above: Performed By: #### 2 4362-6 ####CALE Roth ([id number])[facility] ([facility])[address]285 [place] [address] Calcium [Mass/Vol] 9.4 mg/dL Normal 8.6-10.[address] [facility] Comment on above: Performed By: #### 2 4362-6 ####CALE CAI L ([id number])[facility] ([facility])[address]33 [place] [address] Chloride [Moles/Vol] 100 mmol/L Normal 98-107 [facility] Comment on above: Performed By: #### 2 4362-6 ####CALE CAI L ([id number])[facility] ([facility])[address]93 [place] [address] CO2 [Moles/Vol] 26 mmol/L Normal 21-32 [facility] Comment on above: Performed By: #### 2 4362-6 ####CALE CAI L ([id number])[facility] ([facility])[address]105 [place] [address] Creatinine [Mass/Vol] 0.36 mg/dL Low 0.50-1.05 [facility] Comment on above: Performed By: #### 2 4362-6 ####CALE CAI L ([id number])[facility] ([facility])[address]19 [place] [address] Glomerular filtration rate >90 Normal >60 [facility] Comment on above: Result Comment: Calc ulations of estimated GFR are performed using the 2020 CKD-EPI Study Refit equation without the race variable for the IDMS-Traceable creatinine methods.https://jasn.asnjournals.org/content//ASN .6358714222 Performed By: #### 2 4362-6 ####CALE CAI L ([id number])[facility] ([facility])[address] [place] [address] Glucose [Mass/Vol] 115 mg/dL High 74-[address] [facility] Comment on above: Performed By: #### 2 4362-6 ####CALE Roth ([id number])[facility] ([facility])[address]229 [place] [address] Phosphate [Mass/Vol] 3.1 mg/dL Normal 2.5-4.9 [facility] Comment on above: Performed By: #### 2 4362-6 ####CALE Roth ([id number])[facility] ([facility])[address] [place] [address] Potassium [Moles/Vol] 3.6 mmol/L Normal 3.5-5.3 [facility] Comment on above: Performed By: #### 2 4362-6 ####CALE Roth ([id number])[facility] ([facility])[address] [place] [address] Sodium [Moles/Vol] 136 mmol/L Normal 136-[address] [facility] Comment on above: Performed By: #### 2 4362-6 ####CALE Roth ([id number])[facility] ([facility])[address] [place] [address] 31933 Urea nitrogen [Mass/Vol] 8 mg/dL Normal 6-23 [facility] Comment on above: Performed By: #### 2 4362-6 ####CALE Roth ([id number])[facility] ([facility])[address] [place] [address] Thyrotropinon 03-25-2025 TSH Qn 4.56 m[IU]/L High 0.44-3.98 [facility] Comment on above: Order Comment: TSH t esting is performed using different testing methodology at [facility] than at other [facility]. Direct result comparisons should only be made within the same method. Performed By: #### 3 016-3 ####CALE Roth ([id number])[facility] ([facility])[address] [place] [address] 75102 Thyroxine.freeon 03-25-2025 Free T4 [Mass/Vol] 1.51 ng/dL High 0.78-1.[address] [facility] Comment on above: Order Comment: Thyro xine Free testing is performed using different testing methodology at [facility] than at [facility]. Direct result comparisons should only be made within the same method. Performed By: #### 3 024-7 ####CALE Roth ([id number])[facility] ([facility])[address] [place] [address] Triiodothyronine.freeon 10 Free T3 [Mass/Vol] 2.8 pg/mL Normal 2.3-4.[address] [facility] Comment on above: Performed By: #### 3 051-0 ####CALE Roth ([id number])[facility] ([facility])[address]40 [place] [address] Troponin I.cardiac panelon 1 Tropinin I.cardiac panel High sensitivity method <3 Normal 0-34 [facility] Comment on above: Order Comment: Less than 99th percentile of normal range cutoff-Female and children under 18 years old <35 ng/L; Male <54 ng/L: NegativeRepeat testing should be performed if clinically indicated.Female and children under 18 years old 35-120 ng/L; Male 54-120 ng/L:Consistent with possible cardiac damage and possible increased clinicalrisk. Serial measurements may help to assess extent of myocardial damage.>120 ng/L: Consistent with cardiac damage, increased clinical risk andmyocardial infarction. Serial measurements may help assess extent ofmyocardial damage.NOTE: Children less than 1 year old may have higher baseline troponinlevels and results should be interpreted in conjunction with the overallclinical context.NOTE: Troponin I testing is performed using a differenttesting methodology at [facility] than at [facility]. Direct result comparisons should onlybe made within the same method. Performed By: #### 8 9577-1 ####CALE Roth ([id number])[facility] ([facility])[address]63 [place] [address] XR ABDOMEN 1 VIEWon 03-25-20 25 XR ABDOMEN [address] [facility] CBC W Auto Differential pane l (Bld)on 03-24-2025 Basophils (Bld) [#/Vol] 0.04 x10*3/uL Normal 0.00-0.10 [facility] Comment on above: Performed By: #### 5 7021-8 ####CALE Roth ([id number])[facility] ([facility])[address]783 [place] [address] Basophils/100 WBC (Bld) 0.3 % Normal 0.0-2.0 [facility] Comment on above: Performed By: #### 5 7021-8 ####CALE Roth ([id number])[facility] ([facility])[address]74 [place] [address] Eosinophils (Bld) [#/Vol] 0.11 x10*3/uL Normal 0.00-0.70 [facility] Comment on above: Performed By: #### 5 7021-8 ####CALE Roth ([id number])[facility] ([facility])[address]120 [place] [address] Eosinophils/100 WBC (Bld) 0.7 % Normal 0.0-6.0 [facility] Comment on above: Performed By: #### 5 7021-8 ####CALE Roth ([id number])[facility] ([facility])[address]254 [place] [address] Erythrocyte distribution width (RBC) [Ratio] 13.8 % Normal 11.5-14.5 [facility] Comment on above: Performed By: #### 5 7021-8 ####CALE Roth ([id number])[facility] ([facility])[address] [place] [address] Hematocrit (Bld) [Volume fraction] 30.7 % Low 36.0-46.0 [facility] Comment on above: Performed By: #### 5 7021-8 ####CALE Roth ([id number])[facility] ([facility])[address]119 [place] [address] Hemoglobin (Bld) [Mass/Vol] 10.6 g/dL Low 12.0-16.0 [facility] Comment on above: Performed By: #### 5 7021-8 ####CALE Roth ([id number])[facility] ([facility])[address]41 [place] [address] Immature granulocytes (Bld) [#/Vol] 0.35 x10*3/uL Normal 0.00-0.70 [facility] Comment on above: Performed By: #### 5 7021-8 ####CALE Roth ([id number])[facility] ([facility])[address]397 [place] [address] Immature granulocytes/100 WBC (Bld) 2.3 % High 0.0-0.9 [facility] Comment on above: Result Comment: Aleisha ture Granulocyte Count (IG) includes promyelocytes, myelocytes and metamyelocytes but does not include bands. Percent differential counts (%) should be interpreted in the context of the absolute cell counts (cells/UL). Performed By: #### 5 7021-8 ####CALE Roth ([id number])[facility] ([facility])[address] [place] [address] Lymphocytes (Bld) [#/Vol] 2.10 x10*3/uL Normal 1.20-4.80 [facility] Comment on above: Performed By: #### 5 7021-8 ####CALE Roth ([id number])[facility] ([facility])[address]21 [place] [address] Lymphocytes/100 WBC (Bld) 13.7 % Normal 13.0-44.0 [facility] Comment on above: Performed By: #### 5 7021-8 ####CALE Roth ([id number])[facility] ([facility])[address]202 [place] [address] MCH (RBC) [Entitic mass] 30.7 pg Normal 26.0-34.0 [facility] Comment on above: Performed By: #### 5 7021-8 ####CALE Roth ([id number])[facility] ([facility])[address] [place] [address] MCHC (RBC) [Mass/Vol] 34.5 g/dL Normal 32.0-36.0 [facility] Comment on above: Performed By: #### 5 7021-8 ####CALE Roth ([id number])[facility] ([facility])[address]07 [place] [address] MCV (RBC) [Entitic vol] 89 fL Normal 80-100 [facility] Comment on above: Performed By: #### 5 7021-8 ####CALE Roth ([id number])[facility] ([facility])[address]77 [place] [address] Monocytes (Bld) [#/Vol] 0.98 x10*3/uL Normal 0.10-1.00 [facility] Comment on above: Performed By: #### 5 7021-8 ####CALE Roth ([id number])[facility] ([facility])[address]16 [place] [address] Monocytes/100 WBC (Bld) 6.4 % Normal 2.0-10.0 [facility] Comment on above: Performed By: #### 5 7021-8 ####CALE Roth ([id number])[facility] ([facility])[address] [place] [address] Neutrophils (Bld) [#/Vol] 11.77 x10*3/uL High 1.20-7.70 [facility] Comment on above: Result Comment: Perc ent differential counts (%) should be interpreted in the context of the absolute cell counts (cells/uL). Performed By: #### 5 7021-8 ####CALE Roth ([id number])[facility] ([facility])[address] [place] [address] Neutrophils/100 WBC (Bld) 76.6 % Normal 40.0-80.0 [facility] Comment on above: Performed By: #### 5 7021-8 ####CALE Roth ([id number])[facility] LAB ([facility])[address] [place] [address] Nucleated RBC/100 WBC (Bld) [Ratio] 0.0 /100 WBCs Normal 0.0-0.0 [facility] Comment on above: Performed By: #### 5 7021-8 ####CALE CAI L ([id number])[facility] ([facility])[address] [place] [address] 20921 Platelets (Bld) [#/Vol] 405 x10*3/uL Normal 150-450 [facility] Comment on above: Performed By: #### 5 7021-8 ####CALE Roth ([id number])[facility] ([facility])[address] [place] [address] 96864 RBC (Bld) [#/Vol] 3.45 x10*6/uL Low 4.00-5.20 [facility] Comment on above: Performed By: #### 5 7021-8 ####CALE Roth ([id number])[facility] ([facility])[address] [place] [address] WBC (Bld) [#/Vol] 15.4 x10*3/uL High 4.4-11.3 [facility] Comment on above: Performed By: #### 5 7021-8 ####CALE Roth ([id number])[facility] ([facility])[address] [place] [address] HEAD WO IV CONTRASTon CT HEAD WO IV CONTRAST Normal [facility] Calcium.ionizedon 03-24-2025 Calcium.ionized (Bld) [Moles/Vol] 1.20 mmol/L Normal 1.1-1.33 [facility] Comment on above: Result Comment: The performance characteristics of ionized calcium testedin heparinized plasma or serum have been validated [facility] where [facility] is performed.Testing on heparinized plasma or serum is not [facility]; however, such approval is not necessary. Performed By: #### 1 994-3 ####CALE Roth ([id number])[facility] ([facility])[address] [place] [address] Glucose Test strip manual (B ld) [Mass/Vol]on 03-24-2025 Glucose [Mass/Vol] 139 mg/dL High [address] [place] [address] Comment on above: Performed By: #### 2 341-6 ####CALE Roth ([id number])[facility] ([facility])[address] [place] [address] 55512 Glucose [Mass/Vol] 130 mg/dL High [address] [place] [address] Comment on above: Performed By: #### 2 341-6 ####CALE Roth ([id number])[facility] ([facility])[address] [place] [address] 73876 Glucose [Mass/Vol] 104 mg/dL High [address] [place] [address] Comment on above: Performed By: #### 2 341-6 ####CALE Roth ([id number])[facility] ([facility])[address] [place] [address] 79063 Glucose [Mass/Vol] 134 mg/dL High [address] [place] [address] Comment on above: Performed By: #### 2 341-6 ####CALE Roth ([id number])[facility] ([facility])[address] [place] [address] 98545 Magnesiumon 03-24-2025 Magnesium [Mass/Vol] 1.84 mg/dL Normal 1.60-2.40 [facility] Comment on above: Performed By: #### 1 9123-9 ####CALE Roth ([id number])[facility] ([facility])[address] [place] [address] Procalcitoninon 03-24-2025 Procalcitonin [Mass/Vol] 0.03 ng/mL Normal <=0.07 [facility] Comment on above: Order Comment: Proca lcitonin (PCT) results measured serially canaid in decision-making for antibiotic discontinuation inpatients with suspected or confirmed sepsis in conjunctionwith additional clinical information. Antibioticdiscontinuation may be considered with a change in PCT of>80% from the peak result or when PCT falls below 0.50 ng/mL.Procalcitonin results should not be used in isolation butshould be interpreted in conjunction with additional clinicaland laboratory findings. Procalcitonin results should not beused to guide the initiation of antibiotic therapy.Falsely low PCT values in the presence of bacterial infectionmay occur in early infection, with atypical pathogens,localized infections, and subacute infectious endocarditis.Falsely elevated results outside of severe bacterialinfection/sepsis may be seen in patients with renal failureor insufficiency, severe trauma or hunter, recent majorabdominal/cardiac surgery, acute multi-organ failure, rarelyin patients with medullary thyroid carcinoma and rareneuroendocrine tumors, and non-specific interfering antibodies(heterophile antibodies, rheumatoid factor, human anti-mouseantibodies (HAMA), etc).Performance of the PCT test in pediatric patients (<18yo), women, immunocompromised patients, and patients onimmunomodulatory medications has not been evaluated. Performed By: #### 3 3959-8 ####CALE Roth ([id number])[facility] ([facility])[address] [place] [address] Renal function 2000 panelon 03-24-2025 Albumin BCP dye [Mass/Vol] 4.0 g/dL Normal 3.4-5.0 [facility] Comment on above: Performed By: #### 2 4362-6 ####CALE Roth ([id number])[facility] ([facility])[address] [place] [address] Anion gap [Moles/Vol] 14 mmol/L Normal 10-20 [facility] Comment on above: Performed By: #### 2 4362-6 ####CALE Roth ([id number])[facility] ([facility])[address] [place] [address] Calcium [Mass/Vol] 9.1 mg/dL Normal 8.6-10.[address] [facility] Comment on above: Performed By: #### 2 4362-6 ####CALE Roth ([id number])[facility] ([facility])[address]183 [place] [address] Chloride [Moles/Vol] 104 mmol/L Normal 98-107 [facility] Comment on above: Performed By: #### 2 4362-6 ####CALE Roth ([id number])[facility] ([facility])[address] [place] [address] CO2 [Moles/Vol] 26 mmol/L Normal 21-32 [facility] Comment on above: Performed By: #### 2 4362-6 ####CALE Roth ([id number])[facility] ([facility])[address]99 [place] [address] Creatinine [Mass/Vol] 0.26 mg/dL Low 0.50-1.05 [facility] Comment on above: Performed By: #### 2 4362-6 ####CALE Roth ([id number])[facility] ([facility])[address] [place] [address] Glomerular filtration rate >90 Normal >60 [facility] Comment on above: Result Comment: Calc ulations of estimated GFR are performed using the 2020 CKD-EPI Study Refit equation without the race variable for the IDMS-Traceable creatinine methods.https://jasn.asnjournals.org/content//ASN .9347403106 Performed By: #### 2 4362-6 ####CALE Roth ([id number])[facility] ([facility])[address] [place] [address] Glucose [Mass/Vol] 109 mg/dL High 74-[address] [facility] Comment on above: Performed By: #### 2 4362-6 ####CALE Roth ([id number])[facility] ([facility])[address] [place] [address] Phosphate [Mass/Vol] 2.3 mg/dL Low 2.5-4.9 [facility] Comment on above: Performed By: #### 2 4362-6 ####CALE Roth ([id number])[facility] ([facility])[address] [place] [address] Potassium [Moles/Vol] 3.5 mmol/L Normal 3.5-5.3 [facility] Comment on above: Performed By: #### 2 4362-6 ####CALE Roth ([id number])[facility] ([facility])[address] [place] [address] Sodium [Moles/Vol] 140 mmol/L Normal 136-[address] [facility] Comment on above: Performed By: #### 2 4362-6 ####CALE Roth ([id number])[facility] ([facility])[address] [place] [address] Urea nitrogen [Mass/Vol] 7 mg/dL Normal 6-23 [facility] Comment on above: Performed By: #### 2 4362-6 ####CALE Roth ([id number])[facility] ([facility])[address] [place] [address] Albumin BCP dye [Mass/Vol] 3.9 g/dL Normal 3.4-5.0 [facility] Comment on above: Performed By: #### 2 4362-6 ####CALE Roth ([id number])[facility] ([facility])[address] [place] [address] Anion gap [Moles/Vol] 10 mmol/L Normal 10-20 [facility] Comment on above: Performed By: #### 2 4362-6 ####CALE Roth ([id number])[facility] ([facility])[address] [place] [address] Calcium [Mass/Vol] 9.2 mg/dL Normal 8.6-10.[address] [facility] Comment on above: Performed By: #### 2 4362-6 ####CALE Roth ([id number])[facility] ([facility])[address] [place] [address] Chloride [Moles/Vol] 100 mmol/L Normal 98-107 [facility] Comment on above: Performed By: #### 2 4362-6 ####CALE CAI L ([id number])[facility] ([facility])[address] [place] [address] CO2 [Moles/Vol] 29 mmol/L Normal 21-32 [facility] Comment on above: Performed By: #### 2 4362-6 ####CALE CAI L ([id number])[facility] ([facility])[address]40 [place] [address] Creatinine [Mass/Vol] 0.32 mg/dL Low 0.50-1.05 [facility] Comment on above: Performed By: #### 2 4362-6 ####CALE Roth ([id number])[facility] ([facility])[address] [place] [address] 68853 Glomerular filtration rate >90 Normal >60 [facility] Comment on above: Result Comment: Calc ulations of estimated GFR are performed using the 2020 CKD-EPI Study Refit equation without the race variable for the IDMS-Traceable creatinine methods.https://jasn.asnjournals.org/content/early//ASN .4641959705 Performed By: #### 2 4362-6 ####CALE Roth ([id number])[facility] ([facility])[address] [place] [address] Glucose [Mass/Vol] 121 mg/dL High 74-[address] [facility] Comment on above: Performed By: #### 2 4362-6 ####CALE CAI L ([id number])[facility] ([facility])[address]74 [place] [address] Phosphate [Mass/Vol] 2.4 mg/dL Low 2.5-4.9 [facility] Comment on above: Performed By: #### 2 4362-6 ####CALE CAI L ([id number])[facility] ([facility])[address] [place] [address] Potassium [Moles/Vol] 3.1 mmol/L Low 3.5-5.3 [facility] Comment on above: Performed By: #### 2 4362-6 ####CALE Roth ([id number])[facility] ([facility])[address] [place] [address] Sodium [Moles/Vol] 136 mmol/L Normal 136-[address] [facility] Comment on above: Performed By: #### 2 4362-6 ####CALE Roth ([id number])[facility] ([facility])[address]226 [place] [address] Urea nitrogen [Mass/Vol] 12 mg/dL Normal 6-23 [facility] Comment on above: Performed By: #### 2 4362-6 ####CALE Roth ([id number])[facility] ([facility])[address] [place] [address] 81792 XR ABDOMEN 1 VIEWon 03-24-20 XR ABDOMEN [address] [facility] CBC W Auto Differential pane l (Bld)on 03-23-2025 Basophils (Bld) [#/Vol] 0.04 x10*3/uL Normal 0.00-0.10 [facility] Comment on above: Performed By: #### 5 7021-8 ####CALE Roth ([id number])[facility] ([facility])[address] [place] [address] 31806 Basophils/100 WBC (Bld) 0.3 % Normal 0.0-2.0 [facility] Comment on above: Performed By: #### 5 7021-8 ####CALE Roth ([id number])[facility] ([facility])[address] [place] [address] 36059 Eosinophils (Bld) [#/Vol] 0.00 x10*3/uL Normal 0.00-0.70 [facility] Comment on above: Performed By: #### 5 7021-8 ####CALE Roth ([id number])[facility] ([facility])[address]261 [place] [address] Eosinophils/100 WBC (Bld) 0.0 % Normal 0.0-6.0 [facility] Comment on above: Performed By: #### 5 7021-8 ####CALE Roth ([id number])[facility] ([facility])[address]342 [place] [address] Erythrocyte distribution width (RBC) [Ratio] 13.4 % Normal 11.5-14.5 [facility] Comment on above: Performed By: #### 5 7021-8 ####CALE Roth ([id number])[facility] ([facility])[address] [place] [address] 04682 Hematocrit (Bld) [Volume fraction] 32.6 % Low 36.0-46.0 [facility] Comment on above: Performed By: #### 5 7021-8 ####CALE Roth ([id number])[facility] ([facility])[address] [place] [address] 62215 Hemoglobin (Bld) [Mass/Vol] 11.2 g/dL Low 12.0-16.0 [facility] Comment on above: Performed By: #### 5 7021-8 ####CALE Roth ([id number])[facility] ([facility])[address] [place] [address] 50160 Immature granulocytes (Bld) [#/Vol] 0.63 x10*3/uL Normal 0.00-0.70 [facility] Comment on above: Performed By: #### 5 7021-8 ####CALE Roth ([id number])[facility] ([facility])[address]46 [place] [address] Immature granulocytes/100 WBC (Bld) 4.5 % High 0.0-0.9 [facility] Comment on above: Result Comment: Aleisha ture Granulocyte Count (IG) includes promyelocytes, myelocytes and metamyelocytes but does not include bands. Percent differential counts (%) should be interpreted in the context of the absolute cell counts (cells/UL). Performed By: #### 5 7021-8 ####CALE Roth ([id number])[facility] ([facility])[address]881 [place] [address] Lymphocytes (Bld) [#/Vol] 1.44 x10*3/uL Normal 1.20-4.80 [facility] Comment on above: Performed By: #### 5 7021-8 ####CALE Roth ([id number])[facility] ([facility])[address] [place] [address] 03791 Lymphocytes/100 WBC (Bld) 10.3 % Normal 13.0-44.0 [facility] Comment on above: Performed By: #### 5 7021-8 ####CALE Roth ([id number])[facility] ([facility])[address] [place] [address] 40693 MCH (RBC) [Entitic mass] 30.4 pg Normal 26.0-34.0 [facility] Comment on above: Performed By: #### 5 7021-8 ####CALE Roth ([id number])[facility] ([facility])80203 [place] [address] MCHC (RBC) [Mass/Vol] 34.4 g/dL Normal 32.0-36.0 [facility] Comment on above: Performed By: #### 5 7021-8 ####CALE Roth ([id number])[facility] ([facility])[address]345 [place] [address] MCV (RBC) [Entitic vol] 88 fL Normal 80-100 [facility] Comment on above: Performed By: #### 5 7021-8 ####CALE Roth ([id number])[facility] ([facility])[address]019 [place] [address] Monocytes (Bld) [#/Vol] 0.86 x10*3/uL Normal 0.10-1.00 [facility] Comment on above: Performed By: #### 5 7021-8 ####CALE Roth ([id number])[facility] ([facility])[address]16 [place] [address] Monocytes/100 WBC (Bld) 6.2 % Normal 2.0-10.0 [facility] Comment on above: Performed By: #### 5 7021-8 ####CALE Roth ([id number])[facility] ([facility])[address]242 [place] [address] Neutrophils (Bld) [#/Vol] 11.00 x10*3/uL High 1.20-7.70 [facility] Comment on above: Result Comment: Perc ent differential counts (%) should be interpreted in the context of the absolute cell counts (cells/uL). Performed By: #### 5 7021-8 ####CALE Roth ([id number])[facility] ([facility])[address]73 [place] [address] Neutrophils/100 WBC (Bld) 78.7 % Normal 40.0-80.0 [facility] Comment on above: Performed By: #### 5 7021-8 ####CALE Roth ([id number])[facility] ([facility])39693 [place] [address] Nucleated RBC/100 WBC (Bld) [Ratio] 0.0 /100 WBCs Normal 0.0-0.0 [facility] Comment on above: Performed By: #### 5 7021-8 ####CALE Roth ([id number])[facility] ([facility])16673 [place] [address] Platelets (Bld) [#/Vol] 388 x10*3/uL Normal 150-450 [facility] Comment on above: Performed By: #### 5 7021-8 ####CALE Roth ([id number])[facility] ([facility])[address]682 [place] [address] RBC (Bld) [#/Vol] 3.69 x10*6/uL Low 4.00-5.20 [facility] Comment on above: Performed By: #### 5 7021-8 ####CALE Roth ([id number])[facility] ([facility])13212 [place] [address] WBC (Bld) [#/Vol] 14.0 x10*3/uL High 4.4-11.3 [facility] Comment on above: Performed By: #### 5 7021-8 ####CALE Roth ([id number])[facility] ([facility])[address]683 [place] [address] CT HEAD WO IV CONTRASTon CT HEAD WO IV CONTRAST Normal [facility] Calcium.ionizedon 03-23-2025 Calcium.ionized (Bld) [Moles/Vol] 1.21 mmol/L Normal 1.1-1.33 [facility] Comment on above: Result Comment: The performance characteristics of ionized calcium testedin heparinized plasma or serum have been validated [facility] the[facility] where [facility] is performed.Testing on heparinized plasma or serum is not approved bythe [facility]; however, such approval is not necessary. Performed By: #### 1 994-3 ####CALE Roth ([id number])[facility] ([facility])[address]397 [place] [address] Glucose Test strip manual (B ld) [Mass/Vol]on 03-23-2025 Glucose [Mass/Vol] 112 mg/dL High 74-[address] [facility] Comment on above: Performed By: #### 2 341-6 ####CALE Roth ([id number])[facility] ([facility])[address]78 [place] [address] Glucose [Mass/Vol] 99 mg/dL Normal 74-[address] [facility] Comment on above: Performed By: #### 2 341-6 ####CALE Roth ([id number])[facility] ([facility])[address]264 [place] [address] Glucose [Mass/Vol] 101 mg/dL High 74-[address] [facility] Comment on above: Performed By: #### 2 341-6 ####CALE Roth ([id number])[facility] ([facility])20436 [place] [address] Glucose [Mass/Vol] 110 mg/dL High 74-[address] [facility] Comment on above: Performed By: #### 2 341-6 ####CALE Roth ([id number])[facility] ([facility])14228 [place] [address] Glucose [Mass/Vol] 105 mg/dL High 74-[address] [facility] Comment on above: Performed By: #### 2 341-6 ####CALE Roth ([id number])[facility] ([facility])[address]75 [place] [address] Magnesiumon 03-23-2025 Magnesium [Mass/Vol] 1.86 mg/dL Normal 1.60-2.40 [facility] Comment on above: Performed By: #### 1 9123-9 ####CALE Roth ([id number])[facility] ([facility])[address]215 [place] [address] Renal function 2000 panelon 03-23-2025 Albumin BCP dye [Mass/Vol] 4.0 g/dL Normal 3.4-5.0 [facility] Comment on above: Performed By: #### 2 4362-6 ####CALE Roth ([id number])[facility] ([facility])[address]46 [place] [address] Anion gap [Moles/Vol] 14 mmol/L Normal 10-20 [facility] Comment on above: Performed By: #### 2 4362-6 ####CALE Roth ([id number])[facility] ([facility])[address]12 [place] [address] Calcium [Mass/Vol] 9.5 mg/dL Normal 8.6-10.[address] [facility] Comment on above: Performed By: #### 2 4362-6 ####CALE Roth ([id number])[facility] ([facility])[address] [place] [address] Chloride [Moles/Vol] 99 mmol/L Normal 98-107 [facility] Comment on above: Performed By: #### 2 4362-6 ####CALE Roth ([id number])[facility] ([facility])[address] [place] [address] CO2 [Moles/Vol] 27 mmol/L Normal 21-32 [facility] Comment on above: Performed By: #### 2 4362-6 ####CALE Roth ([id number])[facility] ([facility])[address]65 [place] [address] Creatinine [Mass/Vol] 0.39 mg/dL Low 0.50-1.05 [facility] Comment on above: Performed By: #### 2 4362-6 ####CALE Roth ([id number])[facility] ([facility])[address]49 [place] [address] Glomerular filtration rate >90 Normal >60 [facility] Comment on above: Result Comment: Calc ulations of estimated GFR are performed using the 2020 CKD-EPI Study Refit equation without the race variable for the IDMS-Traceable creatinine methods.https://jasn.asnjournals.org/content/early/ASN .8297523395 Performed By: #### 2 4362-6 ####CALE Roth ([id number])[facility] ([facility])[address]40 [place] [address] Glucose [Mass/Vol] 132 mg/dL High 74-[address] [facility] Comment on above: Performed By: #### 2 4362-6 ####CALE Roth ([id number])[facility] ([facility])[address]01 [place] [address] Phosphate [Mass/Vol] 3.7 mg/dL Normal 2.5-4.9 [facility] Comment on above: Performed By: #### 2 4362-6 ####CALE oRth ([id number])[facility] ([facility])[address]313 [place] [address] Potassium [Moles/Vol] 4.1 mmol/L Normal 3.5-5.3 [facility] Comment on above: Performed By: #### 2 4362-6 ####CALE Roth ([id number])[facility] ([facility])[address]84 [place] [address] Sodium [Moles/Vol] 136 mmol/L Normal 136-[address] [facility] Comment on above: Performed By: #### 2 4362-6 ####CALE Roth ([id number])[facility] ([facility])[address] [place] [address] 89261 Urea nitrogen [Mass/Vol] 15 mg/dL Normal 6-23 [facility] Comment on above: Performed By: #### 2 4362-6 ####CALE Roth ([id number])[facility] ([facility])[address]27 [place] [address] CBC W Auto Differential pane l (Bld)on 03-22-2025 Basophils (Bld) [#/Vol] 0.04 x10*3/uL Normal 0.00-0.10 [facility] Comment on above: Performed By: #### 5 7021-8 ####CALE Roth ([id number])[facility] ([facility])[address]38 [place] [address] Basophils/100 WBC (Bld) 0.5 % Normal 0.0-2.0 [facility] Comment on above: Performed By: #### 5 7021-8 ####CALE Roth ([id number])[facility] ([facility])[id number] [place] [id number] Eosinophils (Bld) [#/Vol] 0.01 x10*3/uL Normal 0.00-0.70 [facility] Comment on above: Performed By: #### 5 7021-8 ####CALE Roth ([id number])[facility] ([facility])[address] [place] [address] Eosinophils/100 WBC (Bld) 0.1 % Normal 0.0-6.0 [facility] Comment on above: Performed By: #### 5 7021-8 ####CALE Roth ([id number])[facility] [facility] [place] [address] Erythrocyte distribution width (RBC) [Ratio] 13.2 % Normal 11.5-14.5 [facility] Comment on above: Performed By: #### 5 7021-8 ####CAEL Roth ([id number])[facility] ([facility])[address] [place] [address] 75534 Hematocrit (Bld) [Volume fraction] 34.5 % Low 36.0-46.0 [facility] Comment on above: Performed By: #### 5 7021-8 ####CALE Roth ([id number])[facility] ([facility])[address] [place] [address] 39823 Hemoglobin (Bld) [Mass/Vol] 11.8 g/dL Low 12.0-16.0 [facility] Comment on above: Performed By: #### 5 7021-8 ####CALE Roth ([id number])[facility] ([facility])[address] [place] [address] 44820 Immature granulocytes (Bld) [#/Vol] 0.39 x10*3/uL Normal 0.00-0.70 [facility] Comment on above: Performed By: #### 5 7021-8 ####CALE Roth ([id number])[facility] ([facility])[address] [place] [address] Immature granulocytes/100 WBC (Bld) 4.8 % High 0.0-0.9 [facility] Comment on above: Result Comment: Aleisha ture Granulocyte Count (IG) includes promyelocytes, myelocytes and metamyelocytes but does not include bands. Percent differential counts (%) should be interpreted in the context of the absolute cell counts (cells/UL). Performed By: #### 5 7021-8 ####CALE Roth ([id number])[facility] ([facility])[address]006 [place] [address] Lymphocytes (Bld) [#/Vol] 1.25 x10*3/uL Normal 1.20-4.80 [facility] Comment on above: Performed By: #### 5 7021-8 ####CALE Roth ([id number])[facility] ([facility])[address] [place] [address] 90021 Lymphocytes/100 WBC (Bld) 15.4 % Normal 13.0-44.0 [facility] Comment on above: Performed By: #### 5 7021-8 ####CALE Roth ([id number])[facility] ([facility])[address] [place] [address] 25952 MCH (RBC) [Entitic mass] 30.2 pg Normal 26.0-34.0 [facility] Comment on above: Performed By: #### 5 7021-8 ####CALE Roth ([id number])[facility] ([facility])[address] [place] [address] 07950 MCHC (RBC) [Mass/Vol] 34.2 g/dL Normal 32.0-36.0 [facility] Comment on above: Performed By: #### 5 7021-8 ####CALE Roth ([id number])[facility] ([facility])[address] [place] [address] 31651 MCV (RBC) [Entitic vol] 88 fL Normal 80-100 [facility] Comment on above: Performed By: #### 5 7021-8 ####CALE Roth ([id number])[facility] ([facility])[address] [place] [address] 40742 Monocytes (Bld) [#/Vol] 0.50 x10*3/uL Normal 0.10-1.00 [facility] Comment on above: Performed By: #### 5 7021-8 ####CALE Roth ([id number])[facility] ([facility])[address] [place] [address] Monocytes/100 WBC (Bld) 6.2 % Normal 2.0-10.0 [facility] Comment on above: Performed By: #### 5 7021-8 ####CALE Roth ([id number])[facility] ([facility])[address] [place] [address] Neutrophils (Bld) [#/Vol] 5.92 x10*3/uL Normal 1.20-7.70 [facility] Comment on above: Result Comment: Perc ent differential counts (%) should be interpreted in the context of the absolute cell counts (cells/uL). Performed By: #### 5 7021-8 ####CALE Roth ([id number])[facility] ([facility])[address]22 [place] [address] Neutrophils/100 WBC (Bld) 73.0 % Normal 40.0-80.0 [facility] Comment on above: Performed By: #### 5 7021-8 ####CALE Roth ([id number])[facility] ([facility])39646 [place] [address] Nucleated RBC/100 WBC (Bld) [Ratio] 0.0 /100 WBCs Normal 0.0-0.0 [facility] Comment on above: Performed By: #### 5 7021-8 ####CALE Roth ([id number])[facility] ([facility])[address]4 [place] [address] Platelets (Bld) [#/Vol] 407 x10*3/uL Normal 150-450 [facility] Comment on above: Performed By: #### 5 7021-8 ####CALE Roth ([id number])[facility] ([facility])[address] [place] [address] RBC (Bld) [#/Vol] 3.91 x10*6/uL Low 4.00-5.20 [facility] Comment on above: Performed By: #### 5 7021-8 ####CALE Roth ([id number])[facility] ([facility])[address]166 [place] [address] WBC (Bld) [#/Vol] 8.1 x10*3/uL Normal 4.4-11.3 [facility] Comment on above: Performed By: #### 5 7021-8 ####CALE Roth ([id number])[facility] ([facility])[address]275 [place] [address] CT HEAD WITHOUT CONTRAST VOL UMETRIC SURGICAL PLANNINGon 03-22-2025 CT HEAD WITHOUT CONTRAST VOLUMETRIC SURGICAL PLANNING Normal [facility] CT HEAD WO IV CONTRASTon CT HEAD WO IV CONTRAST Normal [facility] Calcium.ionizedon 03-22-2025 Calcium.ionized (Bld) [Moles/Vol] 1.20 mmol/L Normal 1.1-1.33 [facility] Comment on above: Result Comment: The performance characteristics of ionized calcium testedin heparinized plasma or serum have been validated by [facility] site where testing is performed.Testing on heparinized plasma or serum is not approved [facility] FDA; however, such approval is not necessary. Performed By: #### 1 994-3 ####CALE Roth ([id number])[facility] ([facility])[address] [place] [address] 83136 Gas and Carbon monoxide and Electrolytes panel (BldA)on 03-22-2025 Anion gap 4 (BldA) [Moles/Vol] 8 mmo/L Low 10-25 [facility] Comment on above: Performed By: #### 9 3685-6 ####CALE Roth ([id number])[facility] ([facility])[address] [place] [address] Base excess Calc (Bld) [Moles/Vol] 3.5 mmol/L High -2.0-3.0 [facility] Comment on above: Performed By: #### 9 3685-6 ####CALE Roth ([id number])[facility] ([facility])[address] [place] [address] 21311 Calcium.ionized (BldA) [Moles/Vol] 1.23 mmol/L Normal 1.10-1.33 [facility] Comment on above: Performed By: #### 9 3685-6 ####CALE Roth ([id number])[facility] ([facility])[address]998 [place] [address] Chloride (BldA) [Moles/Vol] 104 mmol/L Normal 98-107 [facility] Comment on above: Performed By: #### 9 3685-6 ####CALE Roth ([id number])[facility] ([facility])[address]684 [place] [address] CO2 (Bld) [Partial pressure] 33 mm Hg Low 38-42 [facility] Comment on above: Performed By: #### 9 3685-6 ####CALE Roth ([id number])[facility] ([facility])[address]76 [place] [address] Glucose [Mass/Vol] 128 mg/dL High 74-[address] [facility] Comment on above: Performed By: #### 9 3685-6 ####CALE Roth ([id number])[facility] ([facility])[address]82 [place] [address] HCO3 (Bld) [Moles/Vol] 26.3 mmol/L High 22.0-26.0 [facility] Comment on above: Performed By: #### 9 3685-6 ####CALE Roth ([id number])[facility] ([facility])[address]327 [place] [address] Hematocrit Est (Bld) [Volume fraction] 34.0 % Low 36.0-46.0 [facility] Comment on above: Performed By: #### 9 3685-6 ####CALE Roth ([id number])[facility] ([facility])[address]455 [place] [address] Hemoglobin (Bld) [Mass/Vol] 11.2 g/dL Low 12.0-16.0 [facility] Comment on above: Performed By: #### 9 3685-6 ####CALE Roth ([id number])[facility] ([facility])[address]38 [place] [address] Inhaled oxygen concentration 50 % Normal [facility] Comment on above: Performed By: #### 9 3685-6 ####CALE Roth ([id number])[facility] ([facility])[address]24 [place] [address] Lactate (BldA) [Moles/Vol] 0.6 mmol/L Normal 0.4-2.0 [facility] Comment on above: Performed By: #### 9 3685-6 ####CALE Roth ([id number])[facility] ([facility])[address] [place] [address] 11428 Oxygen (Bld) [Partial pressure] 266 mm Hg High 85-95 [facility] Comment on above: Performed By: #### 9 2565-6 ####CALE Roth ([id number])[facility] ([facility])[address]20 [place] [address] Oxyhemoglobin (BldA) [Mass fraction] 97.6 % Normal 94.0-98.0 [facility] Comment on above: Performed By: #### 9 7735-6 ####CALE Roth ([id number])[facility] ([facility])[address]441 [place] [address] pH (Bld) 7.51 [pH] High 7.38-7.42 [facility] Comment on above: Performed By: #### 9 3685-6 ####CALE Roth ([id number])[facility] ([facility])25028 [place] [address] Potassium (BldA) [Moles/Vol] 3.7 mmol/L Normal 3.5-5.3 [facility] Comment on above: Performed By: #### 9 3685-6 ####CALE Roth ([id number])[facility] ([facility])89273 [place] [address] Sodium (BldA) [Moles/Vol] 135 mmol/L Low 136-145 [facility] Comment on above: Performed By: #### 9 3685-6 ####CALE Roth ([id number])[facility] ([facility])11200 [place] [address] Glucose Test strip manual (B ld) [Mass/Vol]on 03-22-2025 Glucose [Mass/Vol] 133 mg/dL High 74-[address] [facility] Comment on above: Performed By: #### 2 341-6 ####CALE Roth ([id number])[facility] ([facility])[address] [place] [address] 94966 Glucose [Mass/Vol] 119 mg/dL High [address] [place] [address] Comment on above: Performed By: #### 2 341-6 ####CALE Roth ([id number])[facility] ([facility])[address] [place] [address] 04687 Glucose [Mass/Vol] 119 mg/dL High 74-[address] [facility] Comment on above: Performed By: #### 2 341-6 ####CALE Roth ([id number])[facility] ([facility])[address] [place] [address] 09119 Magnesiumon 03-22-2025 Magnesium [Mass/Vol] 2.11 mg/dL Normal 1.60-2.40 [facility] Comment on above: Performed By: #### 1 9123-9 ####CALE Roth ([id number])[facility] ([facility])[address]19 [place] [address] Renal function 2000 panelon 03-22-2025 Albumin BCP dye [Mass/Vol] 4.1 g/dL Normal 3.4-5.0 [facility] Comment on above: Performed By: #### 2 4362-6 ####CALE Roth ([id number])[facility] ([facility])[address] [place] [address] Anion gap [Moles/Vol] 12 mmol/L Normal 10-20 [facility] Comment on above: Performed By: #### 2 4362-6 ####CALE RUTLEDGEER L ([id number])[facility] ([facility])90333 [place] [address] Calcium [Mass/Vol] 9.5 mg/dL Normal 8.6-10.[address] [facility] Comment on above: Performed By: #### 2 4362-6 ####CALE PARKERTZER L ([id number])[facility] ([facility])47037 [place] [address] Chloride [Moles/Vol] 101 mmol/L Normal 98-107 [facility] Comment on above: Performed By: #### 2 4362-6 ####CALE CAI L (90453)[facility] ([facility])04561 [place] [address] CO2 [Moles/Vol] 28 mmol/L Normal 21-32 [facility] Comment on above: Performed By: #### 2 4362-6 ####CALE CAI L ([id number])[facility] ([facility])[address]99 [place] [address] Creatinine [Mass/Vol] 0.31 mg/dL Low 0.50-1.05 [facility] Comment on above: Performed By: #### 2 4362-6 ####CALE RUTLEDGEER L ([id number])[facility] ([facility])53253 [place] [address] Glomerular filtration rate >90 Normal >60 [facility] Comment on above: Result Comment: Calc ulations of estimated GFR are performed using the 2020 CKD-EPI Study Refit equation without the race variable for the IDMS-Traceable creatinine methods.https://jasn.asnjournals.org/content//ASN .3995525242 Performed By: #### 2 4362-6 ####CALE CAI L ([id number])[facility] ([facility])[address] [place] [address] [place] [address] Glucose [Mass/Vol] 126 mg/dL High 74-[address] [facility] Comment on above: Performed By: #### 2 4362-6 ####CALE Roth ([id number])[facility] ([facility])[address]82 [place] [address] Phosphate [Mass/Vol] 2.3 mg/dL Low 2.5-4.9 [facility] Comment on above: Performed By: #### 2 4362-6 ####CALE Roth ([id number])[facility] ([facility])37537 [place] [address] Potassium [Moles/Vol] 3.8 mmol/L Normal 3.5-5.3 [facility] Comment on above: Performed By: #### 2 4362-6 ####CALE Roth (62586)[facility] ([facility])[address]20 [place] [address] Sodium [Moles/Vol] 137 mmol/L Normal 136-[address] [facility] Comment on above: Performed By: #### 2 4362-6 ####CALE Roth ([id number])[facility] ([facility])60726 [place] [address] Urea nitrogen [Mass/Vol] 13 mg/dL Normal 6-23 [facility] Comment on above: Performed By: #### 2 4362-6 ####CALE Roth ([id number])[facility] ([facility])05475 [place] [address] Albumin BCP dye [Mass/Vol] 4.2 g/dL Normal 3.4-5.0 [facility] Comment on above: Performed By: #### 2 4362-6 ####CALE Roth ([id number])[facility] ([facility])93084 [place] [address] Anion gap [Moles/Vol] 15 mmol/L Normal 10-20 [facility] Comment on above: Performed By: #### 2 4362-6 ####CALE Roth ([id number])[facility] ([facility])[address] [place] [address] Calcium [Mass/Vol] 9.6 mg/dL Normal 8.6-10.[address] [facility] Comment on above: Performed By: #### 2 4362-6 ####CALE CAI L ([id number])[facility] ([facility])02699 [place] [address] Chloride [Moles/Vol] 99 mmol/L Normal 98-107 [facility] Comment on above: Performed By: #### 2 4362-6 ####CALE CAI L ([id number])[facility] ([facility])05234 [place] [address] CO2 [Moles/Vol] 24 mmol/L Normal 21-32 [facility] Comment on above: Performed By: #### 2 4362-6 ####CALE CAI L ([id number])[facility] ([facility])39463 [place] [address] Creatinine [Mass/Vol] 0.38 mg/dL Low 0.50-1.05 [facility] Comment on above: Performed By: #### 2 4362-6 ####CALE CAI L ([id number])[facility] ([facility])89828 [place] [address] Glomerular filtration rate >90 Normal >60 [facility] Comment on above: Result Comment: Calc ulations of estimated GFR are performed using the 2020 CKD-EPI Study Refit equation without the race variable for the IDMS-Traceable creatinine methods.https://jasn.asnjournals.org/content//ASN .8204353223 Performed By: #### 2 4362-6 ####CALE CAI L ([id number])[facility] ([facility])42563 [place] [address] Glucose [Mass/Vol] 212 mg/dL High 74-[address] [facility] Comment on above: Performed By: #### 2 4362-6 ####CALE Roth ([id number])[facility] ([facility])56724 [place] [address] Phosphate [Mass/Vol] 2.5 mg/dL Normal 2.5-4.9 [facility] Comment on above: Performed By: #### 2 4362-6 ####CALE Roth (25157)[facility] ([facility])97142 [place] [address] Potassium [Moles/Vol] 4.1 mmol/L Normal 3.5-5.3 [facility] Comment on above: Performed By: #### 2 4362-6 ####CALE Roth ([id number])[facility] ([facility])13954 [place] [address] Sodium [Moles/Vol] 134 mmol/L Low 136-[address] [facility] Comment on above: Performed By: #### 2 4362-6 ####CALE Roth ([id number])[facility] ([facility])48874 [place] [address] Urea nitrogen [Mass/Vol] 19 mg/dL Normal 6-23 [facility] Comment on above: Performed By: #### 2 4362-6 ####CALE CAI L ([id number])[facility] ([facility])48004 [place] [address] [facility] TRANSCRANIAL DOPPLER (TCD) COMPLETEon 03-22-2025 VAS US TRANSCRANIAL DOPPLER (TCD) COMPLETE Normal [facility] XR ABDOMEN 2 VIEWS SUPINE AN D ERECT OR DECUBon 03-22-2025 XR ABDOMEN 2 VIEWS SUPINE AND ERECT OR DECUB Normal [facility] Comment on above: Order Comment: Eboni de los santos have AP and lateral views of abdomen XR SHUNT SERIESon 03-22-2025 XR SHUNT SERIES Normal [facility] Comment on above: Order Comment: Eboni de los santos have AP and lateral abdominal xrays as part of imaging, along with skull xray orthogonal to shunt valve (in right occipital region) Bacteriaon 03-21-2025 Bacteria identified Cx Nom (U) Abnormal [facility] Comment on above: Performed By: #### 6 30-4 ####CALE Roth ([id number])[facility] ([facility])[address] [place] [place] [address] Bacteria identified Cx Nom (CSF) Normal [facility] Comment on above: Performed By: #### 6 06-4 ####CALE Roth ([id number])[facility] ([facility])[address] [place] [address], [place] [address] Blood type and Indirect anti body screen panel (Bld)on 03-21-2025 ABO group Nom (Bld) B Normal [facility] Comment on above: Performed By: #### 3 4532-2 ####CALE Roth ([id number])[facility] ([facility])[address] [place] [address] Blood group antibody screen Ql Negative [facility] Comment on above: Performed By: #### 3 4532-2 ####CALE Roth ([id number])[facility] ([facility])[address] [place] [address] D Ag Ql (Bld) Positive [facility] Comment on above: Performed By: #### 3 4532-2 ####CALE Roth ([id number])[facility] ([facility])[address] [place] [address] CBC W Auto Differential pane l (Bld)on 03-21-2025 Basophils (Bld) [#/Vol] 0.02 x10*3/uL Normal 0.00-0.10 [facility] Comment on above: Performed By: #### 5 7021-8 ####CALE Roth ([id number])[facility] ([facility])[address]37 [place] [place] [address] Basophils/100 WBC (Bld) 0.3 % Normal 0.0-2.0 [facility] Comment on above: Performed By: #### 5 7021-8 ####CALE Rtoh ([id number])[facility] ([facility])13950 [place] [address] Eosinophils (Bld) [#/Vol] 0.00 x10*3/uL Normal 0.00-0.70 [facility] Comment on above: Performed By: #### 5 7021-8 ####CALE Roth ([id number])[facility] ([facility])[address] [place] [address]1008 Eosinophils/100 WBC (Bld) 0.0 % Normal 0.0-6.0 [facility] Comment on above: Performed By: #### 5 7021-8 ####CALE Roth ([id number])[facility] ([facility])[address] [place] [address]406 Erythrocyte distribution width (RBC) [Ratio] 13.4 % Normal 11.5-14.5 [facility] Comment on above: Performed By: #### 5 7021-8 ####CALE Roth ([id number])[facility] ([facility])[address] [place] [address] 34948 Hematocrit (Bld) [Volume fraction] 34.0 % Low 36.0-46.0 [facility] Comment on above: Performed By: #### 5 7021-8 ####CALE Roth ([id number])[facility] ([facility])[address] [place] [address] 49375 Hemoglobin (Bld) [Mass/Vol] 11.6 g/dL Low 12.0-16.0 [facility] Comment on above: Performed By: #### 5 7021-8 ####CALE Roth ([id number])[facility] ([facility])[address] [place] [address] 35212 Immature granulocytes (Bld) [#/Vol] 0.36 x10*3/uL Normal 0.00-0.70 [facility] Comment on above: Performed By: #### 5 7021-8 ####CALE Roth ([id number])[facility] ([facility])[address]51 [place] [address] Immature granulocytes/100 WBC (Bld) 4.6 % High 0.0-0.9 [facility] Comment on above: Result Comment: Aleisha ture Granulocyte Count (IG) includes promyelocytes, myelocytes and metamyelocytes but does not include bands. Percent differential counts (%) should be interpreted in the context of the absolute cell counts (cells/UL). Performed By: #### 5 7021-8 ####CALE Roth ([id number])[facility] ([facility])[address]152 [place] [address] Lymphocytes (Bld) [#/Vol] 0.97 x10*3/uL Low 1.20-4.80 [facility] Comment on above: Performed By: #### 5 7021-8 ####CALE Roth ([id number])[facility] ([facility])[address] [place] [address] Lymphocytes/100 WBC (Bld) 12.4 % Normal 13.0-44.0 [facility] Comment on above: Performed By: #### 5 7021-8 ####CALE Roth ([id number])[facility] ([facility])[address] [place] [address] MCH (RBC) [Entitic mass] 29.8 pg Normal 26.0-34.0 [facility] Comment on above: Performed By: #### 5 7021-8 ####CALE Roth ([id number])[facility] ([facility])[address] [place] [address] MCHC (RBC) [Mass/Vol] 34.1 g/dL Normal 32.0-36.0 [facility] Comment on above: Performed By: #### 5 7021-8 ####CALE Roth ([id number])[facility] ([facility])[address] [place] [address] MCV (RBC) [Entitic vol] 87 fL Normal 80-100 [facility] Comment on above: Performed By: #### 5 7021-8 ####CALE Roth ([id number])[facility] ([facility])[address] [place] [address] Monocytes (Bld) [#/Vol] 0.43 x10*3/uL Normal 0.10-1.00 [facility] Comment on above: Performed By: #### 5 7021-8 ####CALE Roth ([id number])[facility] ([facility])[address] [place] [address] Monocytes/100 WBC (Bld) 5.5 % Normal 2.0-10.0 [facility] Comment on above: Performed By: #### 5 7021-8 ####CALE Roth ([id number])[facility] ([facility])[address] [place] [address] Neutrophils (Bld) [#/Vol] 6.02 x10*3/uL Normal 1.20-7.70 [facility] Comment on above: Result Comment: Perc ent differential counts (%) should be interpreted in the context of the absolute cell counts (cells/uL). Performed By: #### 5 7021-8 ####CALE Roth ([id number])[facility] ([facility])[address] [place] [address] Neutrophils/100 WBC (Bld) 77.2 % Normal 40.0-80.0 [facility] Comment on above: Performed By: #### 5 7021-8 ####CALE Roth ([id number])[facility] ([facility])[address] [place] [address] Nucleated RBC/100 WBC (Bld) [Ratio] 0.0 /100 WBCs Normal 0.0-0.0 [facility] Comment on above: Performed By: #### 5 7021-8 ####CALE Roth ([id number])[facility] ([facility])[address] [place] [address] Platelets (Bld) [#/Vol] 402 x10*3/uL Normal 150-450 [facility] Comment on above: Performed By: #### 5 7021-8 ####CALE PARKERTZER L ([id number])[facility] ([facility])[address] [place] [address] RBC (Bld) [#/Vol] 3.89 x10*6/uL Low 4.00-5.20 [facility] Comment on above: Performed By: #### 5 7021-8 ####CALE TOSCANOMOTZER L ([id number])[facility] ([facility])[address] [place] [address] WBC (Bld) [#/Vol] 7.8 x10*3/uL Normal 4.4-11.3 [facility] Comment on above: Performed By: #### 5 7021-8 ####CALE TOSCANOMOTZER L ([id number])[facility] ([facility])[address] [place] [address] CSF CELL COUNTon 03-21-2025 Appearance (CSF) Hazy Abnormal Clear [facility] Comment on above: Order Comment: CSF c ell count reference ranges have not been established by [facility]. Based on published references. Performed By: #### C TCS4 ####CALE CAI L ([id number])[facility] ([facility])[address] [place] [address] Color (CSF) Colorless Normal Colorless [facility] Comment on above: Order Comment: CSF c ell count reference ranges have not been established by [facility]. Based on published references. Performed By: #### C TCS4 ####CALE PARKERTZER L ([id number])[facility] ([facility])[address] [place] [address] Color (Spun CSF) Colorless Normal [facility] Comment on above: Order Comment: CSF c ell count reference ranges have not been established by [facility]. Based on published references. Performed By: #### C TCS4 ####CALE TOSCANOMOTZER L ([id number])[facility] ([facility])[address] [place] [address] RBC Auto (CSF) [#/Vol] 1435 /uL High 0-5 [facility] Comment on above: Order Comment: CSF c ell count reference ranges have not been established by [facility]. Based on published references. Result Comment: Lucy shepherd hemacytometer count. Performed By: #### Poncho TCS4 ####CALE Roth ([id number])[facility] ([facility])[address] [place] [address] Tube number Nom (CSF) [ID] Tube 1 Normal [facility] Comment on above: Order Comment: CSF c ell count reference ranges have not been established by [facility]. Based on published references. Performed By: #### Poncho TCS4 ####CALE Roth ([id number])[facility] ([facility])[address] [place] [address] WBC Auto (CSF) [#/Vol] <3 Normal 1-5 [facility] Comment on above: Order Comment: CSF c ell count reference ranges have not been established by [facility]. Based on published references. Performed By: #### Poncho TCS4 ####CALE Roth ([id number])[facility] ([facility])[address] [place] [address] CSF DIFFERENTIALon 5 Cells Counted Total (CSF) [#] 1 Normal [facility] Comment on above: Order Comment: CSF c ell differential reference ranges have not been established by [facility]. Based on published references. Performed By: #### D FCSF ####CALE Roth ([id number])[facility] ([facility])[address] [place] [address] Lymphocytes/100 WBC Manual cnt (CSF) 100 % High 28-96 [facility] Comment on above: Order Comment: CSF c ell differential reference ranges have not been established by [facility]. Based on published references. Performed By: #### D FCSF ####CALE Roth ([id number])[facility] ([facility])[address] [place] [address] Segmented neutrophils/100 WBC Manual cnt (CSF) 0 % Normal 0-5 [facility] Comment on above: Order Comment: CSF c ell differential reference ranges have not been established by [facility]. Based on published references. Performed By: #### D FCSF ####CALE Roth ([id number])[facility] ([facility])[address] [place] [address] CT HEAD WITHOUT CONTRAST VOL UMETRIC SURGICAL PLANNINGon 03-21-2025 CT HEAD WITHOUT CONTRAST VOLUMETRIC SURGICAL PLANNING Normal [facility] Calcium.ionizedon 03-21-2025 Calcium.ionized (Bld) [Moles/Vol] 1.22 mmol/L Normal 1.1-1.33 [facility] Comment on above: Result Comment: The performance characteristics of ionized calcium testedin heparinized plasma or serum have been validated [facility] where [facility] is performed.Testing on heparinized plasma or serum is not approved bythe FDA; however, such approval is not necessary. Performed By: #### 1 994-3 ####CLAE Roth ([id number])[facility] ([facility])[address] [place] [address] Choriogonadotropin.beta subu niton 03-21-2025 HCG.beta subunit Qn m[IU]/mL Normal <5 [facility] Comment on above: Order Comment: Total HCG measurement is performed using the Siemens Atellica immunoassay which detects intact HCG and free beta HCG subunit. This test is not indicated for use as a tumor marker. HCG testing is performed using a different test methodology at [facility] than other legacy [facility]. Direct result comparison should only be made within the same method. Performed By: #### 2 1198-7 ####CALE Roth ([id number])[facility] ([facility])[address] [place] [id number] ECG 12-LEADon 03-21-2025 ECG 12-LEAD Ventricular Rate 119 Atrial Rate 119 P-R Interval 154 QRS Duration 80 Q-T Interval 322 QTC Calculation(Bazett) 452 P Thendara 69 R Thendara 93 T Thendara 5 QRS Count 19 Q Onset 220 P Onset 143 P Offset 199 T Offset 381 QTC Fredericia 404 Diagnosis Sinus tachycardia Rightward axis Nonspecific T wave abnormality Abnormal ECG When compared with ECG of 21-MAR-2025 14:09, No significant change was found Confirmed by Kuldip Barriga ([id number]) on 04/06/2025 10:47:23 AM Normal [facility] Glucoseon 03-21-2025 Glucose (CSF) [Mass/Vol] 110 mg/dL High 40-70 [facility] Comment on above: Performed By: #### 2 342-4 ####CALE Roth ([id number])[facility] ([facility])[address] [place] [address] Glucose Test strip manual (B ld) [Mass/Vol]on 03-21-2025 Glucose [Mass/Vol] 216 mg/dL High [address] [place] [address] Comment on above: Performed By: #### 2 341-6 ####CALE Roth ([id number])[facility] ([facility])[address] [place] [address] Glucose [Mass/Vol] 162 mg/dL High [address] [place] [address] Comment on above: Performed By: #### 2 341-6 ####CALE Roth ([id number])[facility] ([facility])[address] [place] [address] Glucose [Mass/Vol] 166 mg/dL High [address] [place] [address] Comment on above: Performed By: #### 2 341-6 ####CALE Roth ([id number])[facility] ([facility])[address] [place] [address] Glucose [Mass/Vol] 122 mg/dL High [address] [place] [address] Comment on above: Performed By: #### 2 341-6 ####CALE Roth ([id number])[facility] ([facility])[address]47 [place] [address] HCG ( test) IA.rapi d Ql (U)on 03-21-2025 HCG ( test) Ql (U) Negative Normal NEGATIVE [facility] Comment on above: Performed By: #### 8 0384-1 ####CALE Roth ([id number])[facility] ([facility])[address] [place] [address] Magnesiumon 03-21-2025 Magnesium [Mass/Vol] 2.08 mg/dL Normal 1.60-2.40 [facility] Comment on above: Performed By: #### 1 9123-9 ####CAEL Roth ([id number])[facility] ([facility])[address] [place] [address] PT and aPTT panel Coag (PPP) on 03-21-2025 aPTT Coag (PPP) [Time] 30 s Normal 26-36 [facility] Comment on above: Order Comment: The A PTT is no longer used for monitoring Unfractionated Heparin Therapy. For monitoring Heparin Therapy, use the Heparin Assay. Performed By: #### 3 4529-8 ####CALE Roth ([id number])[facility] ([facility])[address] [place] [address] INR Coag (PPP) [Relative time] 1.1 Normal 0.9-1.1 [facility] Comment on above: Order Comment: The A PTT is no longer used for monitoring Unfractionated Heparin Therapy. For monitoring Heparin Therapy, use the Heparin Assay. Performed By: #### 3 4529-8 ####CALE Roth ([id number])[facility] ([facility])[address] [place] [address] PT Coag (PPP) [Time] 12.6 s High 9.8-12.4 [facility] Comment on above: Order Comment: The A PTT is no longer used for monitoring Unfractionated Heparin Therapy. For monitoring Heparin Therapy, use the Heparin Assay. Performed By: #### 3 4529-8 ####CALE Roth ([id number])[facility] ([facility])[address] [place] [address] Proteinon 03-21-2025 Protein (CSF) [Mass/Vol] 15 mg/dL Normal 15-45 [facility] Comment on above: Performed By: #### 2 880-3 ####CALE Roth ([id number])[facility] ([facility])[address] [place] [address] Renal function 2000 panelon 03-21-2025 Albumin BCP dye [Mass/Vol] 4.3 g/dL Normal 3.4-5.0 [facility] Comment on above: Performed By: #### 2 4362-6 ####CALE Roth ([id number])[facility] ([facility])[address] [place] [address] Anion gap [Moles/Vol] 15 mmol/L Normal 10-20 [facility] Comment on above: Performed By: #### 2 4362-6 ####CALE Roth ([id number])[facility] ([facility])[address] [place] [address] Calcium [Mass/Vol] 9.7 mg/dL Normal 8.6-10.[address] [facility] Comment on above: Performed By: #### 2 4362-6 ####CALE Roth ([id number])[facility] ([facility])[address]6 [place] [address] Chloride [Moles/Vol] 101 mmol/L Normal 98-107 [facility] Comment on above: Performed By: #### 2 4362-6 ####CLAE CAI L ([id number])[facility] ([facility])[address]1937 [place] [address] CO2 [Moles/Vol] 27 mmol/L Normal 21-32 [facility] Comment on above: Performed By: #### 2 4362-6 ####CALE CAI L ([id number])[facility] ([facility])[address] [place] [address] Creatinine [Mass/Vol] 0.41 mg/dL Low 0.50-1.05 [facility] Comment on above: Performed By: #### 2 4362-6 ####CALE CAI L ([id number])[facility] ([facility])[address]47 [place] [address] Glomerular filtration rate >90 Normal >60 [facility] Comment on above: Result Comment: Calc ulations of estimated GFR are performed using the 2020 CKD-EPI Study Refit equation without the race variable for the IDMS-Traceable creatinine methods.https://jasn.asnjournals.org/content//ASN .4612387016 Performed By: #### 2 4362-6 ####CALE Roth ([id number])[facility] ([facility])[address] [place] [address] Glucose [Mass/Vol] 197 mg/dL High 74-[address] [facility] Comment on above: Performed By: #### 2 4362-6 ####CALE Roth ([id number])[facility] ([facility])[address]662 [place] [address] Phosphate [Mass/Vol] 3.2 mg/dL Normal 2.5-4.9 [facility] Comment on above: Performed By: #### 2 4362-6 ####CALE CAI L ([id number])[facility] ([facility])[address] [place] [address] Potassium [Moles/Vol] 4.1 mmol/L Normal 3.5-5.3 [facility] Comment on above: Performed By: #### 2 4362-6 ####CALE CAI L ([id number])[facility] ([facility])[address]652 [place] [address] Sodium [Moles/Vol] 139 mmol/L Normal 136-[address] [facility] Comment on above: Performed By: #### 2 4362-6 ####CALE CAI L ([id number])[facility] ([facility])[address]674 [place] [address] Urea nitrogen [Mass/Vol] 11 mg/dL Normal 6-23 [facility] Comment on above: Performed By: #### 2 4362-6 ####CALE CAI L ([id number])[facility] ([facility])[address] [place] [address] Urinalysis complete W Reflex Culture panel (U)on 03-21-2025 Appearance (U) Ex.Turbid Normal Clear [facility] Comment on above: Order Comment: OVER is reported when the result is greater than the clinically reportable range. Performed By: #### 5 8077-9 ####CALE Roth ([id number])[facility] ([facility])[address]16 [place] [address] Bilirubin (U) [Mass/Vol] Negative Normal NEGATIVE [facility] Comment on above: Order Comment: OVER is reported when the result is greater than the clinically reportable range. Performed By: #### 5 8077-9 ####CALE Roth ([id number])[facility] ([facility])[address] [place] [address] Color (U) Light-[place] Normal Light-[place]ello w, Yellow, Dark-Yellow [facility] Comment on above: Order Comment: OVER is reported when the result is greater than the clinically reportable range. Performed By: #### 5 8077-9 ####CALE CAI L ([id number])[facility] ([facility])[address]60 [place] [address] Glucose Auto test strip (U) [Mass/Vol] 50 (TRACE) Abnormal Normal [facility] Comment on above: Order Comment: OVER is reported when the result is greater than the clinically reportable range. Performed By: #### 5 8077-9 ####CALE CAI L ([id number])[facility] ([facility])[address]54 [place] [address] Ketones (U) [Mass/Vol] Negative Normal NEGATIVE [facility] Comment on above: Order Comment: OVER is reported when the result is greater than the clinically reportable range. Performed By: #### 5 8077-9 ####CALE CAI L ([id number])[facility] ([facility])[address] [place] [address] Leukocyte esterase Auto test strip Ql (U) 250 Joe/uL Abnormal NEGATIVE [facility] Comment on above: Order Comment: OVER is reported when the result is greater than the clinically reportable range. Performed By: #### 5 8077-9 ####CALE Roth ([id number])[facility] ([facility])[address] [place] [address] Nitrite Auto test strip Ql (U) 2+ Abnormal NEGATIVE [facility] Comment on above: Order Comment: OVER is reported when the result is greater than the clinically reportable range. Performed By: #### 5 8077-9 ####CALE Roth ([id number])[facility] ([facility])[address]159 [place] [address] pH (U) 7.5 [pH] Normal 5.0, 5.5, 6.0, 6.5, 7.0, 7.5, 8.0 [facility] Comment on above: Order Comment: OVER is reported when the result is greater than the clinically reportable range. Performed By: #### 5 8077-9 ####CALE Roth ([id number])[facility] ([facility])[address]652 [place] [address] Protein (U) [Mass/Vol] Negative Normal NEGATIVE, 10 (TRACE), 20 (TRACE) [facility] Comment on above: Order Comment: OVER is reported when the result is greater than the clinically reportable range. Performed By: #### 5 8077-9 ####CALE Roth ([id number])[facility] ([facility])[address]238 [place] [address] RBC (U) [#/Vol] OVER (3+) Abnormal NEGATIVE [facility] Comment on above: Order Comment: OVER is reported when the result is greater than the clinically reportable range. Performed By: #### 5 8077-9 ####CALE Roth ([id number])[facility] ([facility])[address]559 [place] [address] Specific gravity (U) [Rel density] 1.019 Normal 1.005-1.035 [facility] Comment on above: Order Comment: OVER is reported when the result is greater than the clinically reportable range. Performed By: #### 5 8077-9 ####CALE Roth ([id number])[facility] ([facility])[address]59 [place] [address] Urobilinogen (U) [Mass/Vol] Normal Normal Normal [facility] Comment on above: Order Comment: OVER is reported when the result is greater than the clinically reportable range. Performed By: #### 5 8077-9 ####CALE Roth ([id number])[facility] ([facility])[address] [place] [address] Urinalysis microscopic panel Auto Ql (U)on 03-21-2025 Bacteria Auto (Urine sed) [#/Area] 3+ /HPF Abnormal NONE SEEN [facility] Comment on above: Performed By: #### 5 3315-8 ####CALE Roth ([id number])[facility] ([facility])[address] [place] [address] Epithelial cells.squamous Auto (Urine sed) [#/Area] 1-9 (SPARSE) Normal Reference range not established . [facility] Comment on above: Performed By: #### 5 3315-8 ####CALE Roth ([id number])[facility] ([facility])[address]67 [place] [address] RBC Auto (Urine sed) [#/Area] >20 Abnormal NONE, 1-2, 3-5 [facility] Comment on above: Performed By: #### 5 3315-8 ####CALE Roth ([id number])[facility] ([facility])[address]182 [place] [address] WBC Auto (Urine sed) [#/Area] >50 Abnormal 1-5, NONE [facility] Comment on above: Performed By: #### 5 3315-8 ####CALE Roth ([id number])[facility] ([facility])[address]64 [place] [address] XR CHEST 1 VIEWon 03-21-2025 XR CHEST 1 VIEW Normal [facility] Bacteriaon 03-20-2025 Bacteria identified Cx Nom (CSF) Normal [facility] Comment on above: Performed By: #### 6 06-4 ####CALE Roth ([id number])[facility] ([facility])[address] [place] [address] Bacteria identified Cx Nom (CSF) Abnormal [facility] Comment on above: Performed By: #### 6 06-4 ####CALE Roth ([id number])[facility] ([facility])[address] [place] [address] CBC W Auto Differential pane l (Bld)on 03-20-2025 Basophils (Bld) [#/Vol] 0.03 x10*3/uL Normal 0.00-0.10 [facility] Comment on above: Performed By: #### 5 7021-8 ####CALE Roth ([id number])[facility] ([facility])[address] [place] [address] Basophils/100 WBC (Bld) 0.3 % Normal 0.0-2.0 [facility] Comment on above: Performed By: #### 5 7021-8 ####CALE Roth ([id number])[facility] ([facility])[address] [place] [address] Eosinophils (Bld) [#/Vol] 0.01 x10*3/uL Normal 0.00-0.70 [facility] Comment on above: Performed By: #### 5 7021-8 ####CALE Roth ([id number])[facility] ([facility])[address] [place] [address] Eosinophils/100 WBC (Bld) 0.1 % Normal 0.0-6.0 [facility] Comment on above: Performed By: #### 5 7021-8 ####CALE Roth ([id number])[facility] ([facility])[address] [place] [address] Erythrocyte distribution width (RBC) [Ratio] 12.7 % Normal 11.5-14.5 [facility] Comment on above: Performed By: #### 5 7021-8 ####CALE RUTLEDGEER Ira ([id number])[facility] ([facility])[address] [place] [address] Hematocrit (Bld) [Volume fraction] 30.4 % Low 36.0-46.0 [facility] Comment on above: Performed By: #### 5 7021-8 ####CALE TOSCANOMOISAURA L ([id number])[facility] ([facility])[address] [place] [address] Hemoglobin (Bld) [Mass/Vol] 10.8 g/dL Low 12.0-16.0 [facility] Comment on above: Performed By: #### 5 7021-8 ####CALE CAI L ([id number])[facility] ([facility])[address] [place] [address] Immature granulocytes (Bld) [#/Vol] 0.27 x10*3/uL Normal 0.00-0.70 [facility] Comment on above: Performed By: #### 5 7021-8 ####CALE CAI L ([id number])[facility] ([facility])[address] [place] [address]34[address] Immature granulocytes/100 WBC (Bld) 2.8 % High 0.0-0.9 [facility] Comment on above: Result Comment: Aleisha ture Granulocyte Count (IG) includes promyelocytes, myelocytes and metamyelocytes but does not include bands. Percent differential counts (%) should be interpreted in the context of the absolute cell counts (cells/UL). Performed By: #### 5 7021-8 ####CALE CAI L ([id number])[facility] ([facility])[address] [place] [address] Lymphocytes (Bld) [#/Vol] 1.06 x10*3/uL Low 1.20-4.80 [facility] Comment on above: Performed By: #### 5 7021-8 ####CLAE CAI L ([id number])[facility] ([facility])[address]90 [place] [address] Lymphocytes/100 WBC (Bld) 10.9 % Normal 13.0-44.0 [facility] Comment on above: Performed By: #### 5 7021-8 ####CALE Roth ([id number])[facility] ([facility])[address]347 [place] [address] MCH (RBC) [Entitic mass] 30.0 pg Normal 26.0-34.0 [facility] Comment on above: Performed By: #### 5 7021-8 ####CALE Roth ([id number])[facility] ([facility])[address]128 [place] [address] MCHC (RBC) [Mass/Vol] 35.5 g/dL Normal 32.0-36.0 [facility] Comment on above: Performed By: #### 5 7021-8 ####CALE Roth ([id number])[facility] ([facility])[address] [place] [address]658 MCV (RBC) [Entitic vol] 84 fL Normal 80-100 [facility] Comment on above: Performed By: #### 5 7021-8 ####CALE Roth ([id number])[facility] [facility])[address] [place] [address] Monocytes (Bld) [#/Vol] 0.50 x10*3/uL Normal 0.10-1.00 [facility] Comment on above: Performed By: #### 5 7021-8 ####CALE Roth ([id number])[facility] ([facility])[address] [place] [address] 14711 Monocytes/100 WBC (Bld) 5.2 % Normal 2.0-10.0 [facility] Comment on above: Performed By: #### 5 7021-8 ####CALE Roth ([id number])[facility] ([facility])[address] [place] [address] Neutrophils (Bld) [#/Vol] 7.82 x10*3/uL High 1.20-7.70 [facility] Comment on above: Result Comment: Perc ent differential counts (%) should be interpreted in the context of the absolute cell counts (cells/uL). Performed By: #### 5 7021-8 ####CALE Roth ([id number])[facility] ([facility])[address] [place] [address] Neutrophils/100 WBC (Bld) 80.7 % Normal 40.0-80.0 [facility] Comment on above: Performed By: #### 5 7021-8 ####CALE Roth ([id number])[facility] ([facility])[address] [place] [address] Nucleated RBC/100 WBC (Bld) [Ratio] 0.0 /100 WBCs Normal 0.0-0.0 [facility] Comment on above: Performed By: #### 5 7021-8 ####CALE Roth ([id number])[facility] ([facility])[address] [place] [address] Platelets (Bld) [#/Vol] 381 x10*3/uL Normal 150-450 [facility] Comment on above: Performed By: #### 5 7021-8 ####CALE Roth ([id number])[facility] ([facility])[address] [place] [address] RBC (Bld) [#/Vol] 3.60 x10*6/uL Low 4.00-5.20 [facility] Comment on above: Performed By: #### 5 7021-8 ####CALE CAI L ([id number])[facility] ([facility])[address] [place] [address] WBC (Bld) [#/Vol] 9.7 x10*3/uL Normal 4.4-11.3 [facility] Comment on above: Performed By: #### 5 7021-8 ####CALE Roth ([id number])[facility] ([facility])[address] [place] [address] CSF CELL COUNTon 03-20-2025 Appearance (CSF) Clear Normal Clear [facility] Comment on above: Order Comment: CSF c ell count reference ranges have not been established by [facility]. Based on published references. Performed By: #### C TCS4 ####CALE Roth ([id number])[facility] ([facility])[address] [place] [address] Color (CSF) [place] Abnormal Colorless [facility] Comment on above: Order Comment: CSF c ell count reference ranges have not been established by [facility]. Based on published references. Performed By: #### C TCS4 ####CALE Roth ([id number])[facility] ([facility])[address] [place] [address] Color (Spun CSF) Colorless Normal [facility] Comment on above: Order Comment: CSF c ell count reference ranges have not been established by [facility]. Based on published references. Performed By: #### C TCS4 ####CALE Roth ([id number])[facility] ([facility])[address] [place] [address] RBC Manual cnt (CSF) [#/Vol] 3000 /uL High 0-5 [facility] Comment on above: Order Comment: CSF c ell count reference ranges have not been established by [facility]. Based on published references. Performed By: #### C TCS4 ####CALE Roth ([id number])[facility] ([facility])[address] [place] [address] Tube number Nom (CSF) [ID] Unspecified Normal [facility] Comment on above: Order Comment: CSF c ell count reference ranges have not been established by [facility]. Based on published references. Performed By: #### C TCS4 ####CALE Roth ([id number])[facility] ([facility])[address] [place] [address] WBC Manual cnt (CSF) [#/Vol] 1 /uL Normal 1-5 [facility] Comment on above: Order Comment: CSF c ell count reference ranges have not been established by [facility]. Based on published references. Performed By: #### C TCS4 ####CALE Roth ([id number])[facility] ([facility])[address] [place] [address] Appearance (CSF) Clear Normal Clear [facility] Comment on above: Order Comment: CSF c ell count reference ranges have not been established by [facility]. Based on published references. Performed By: #### C TCS4 ####CALE Roth ([id number])[facility] ([facility])[address] [place] [address] Color (CSF) [place] Abnormal Colorless [facility] Comment on above: Order Comment: CSF c ell count reference ranges have not been established by [facility]. Based on published references. Performed By: #### C TCS4 ####CALE Roth ([id number])[facility] ([facility])[address] [place] [address] Color (Spun CSF) Colorless Normal [facility] Comment on above: Order Comment: CSF c ell count reference ranges have not been established by [facility]. Based on published references. Performed By: #### C TCS4 ####CALE Roth ([id number])[facility] ([facility])[address] [place] [address] RBC Auto (CSF) [#/Vol] 2000 /uL High 0-5 [facility] Comment on above: Order Comment: CSF c ell count reference ranges have not been established by [facility]. Based on published references. Performed By: #### C TCS4 ####CALE Roth ([id number])[facility] ([facility])[address]49 [place] [address] Tube number Nom (CSF) [ID] Unspecified Normal [facility] Comment on above: Order Comment: CSF c ell count reference ranges have not been established by [facility]. Based on published references. Performed By: #### C TCS4 ####CALE Roth ([id number])[facility] ([facility])[address]83 [place] [address] WBC Auto (CSF) [#/Vol] 2 /uL Normal 1-5 [facility] Comment on above: Order Comment: CSF c ell count reference ranges have not been established by [facility]. Based on published references. Performed By: #### C TCS4 ####CALE Roth ([id number])[facility] ([facility])[address] [place] [address] CSF DIFFERENTIALon 5 Cells Counted Total (CSF) [#] 1 Normal [facility] Comment on above: Order Comment: CSF c ell differential reference ranges have not been established by [facility]. Based on published references. Performed By: #### D FCSF ####CALE Roth ([id number])[facility] ([facility])[address]992 [place] [address] Segmented neutrophils/100 WBC Manual cnt (CSF) 100 % High 0-5 [facility] Comment on above: Order Comment: CSF c ell differential reference ranges have not been established by [facility]. Based on published references. Performed By: #### D FCSF ####CALE Roth ([id number])[facility] ([facility])[address] [place] [address] Cells Counted Total (CSF) [#] 9 Normal [facility] Comment on above: Order Comment: CSF c ell differential reference ranges have not been established by [facility]. Based on published references. Performed By: #### D FCSF ####CALE Roth ([id number])[facility] ([facility])[address]80 [place] [address] Lymphocytes/100 WBC Manual cnt (CSF) 67 % Normal 28-96 [facility] Comment on above: Order Comment: CSF c ell differential reference ranges have not been established by [facility]. Based on published references. Performed By: #### D FCSF ####CALE Roth ([id number])[facility] ([facility])[address] [place] [address] Monocytes+Macrophage s/100 WBC Manual cnt (CSF) 22 % Normal 16-56 [facility] Comment on above: Order Comment: CSF c ell differential reference ranges have not been established by [facility]. Based on published references. Performed By: #### D FCSF ####CALE Roth ([id number])[facility] ([facility])[address]49 [place] [address] Segmented neutrophils/100 WBC Manual cnt (CSF) 11 % High 0-5 [facility] Comment on above: Order Comment: CSF c ell differential reference ranges have not been established by [facility]. Based on published references. Result Comment: Bact eria Present Performed By: #### D FCSF ####CALE Roth ([id number])[facility] ([facility])[address] [place] [address] Calcium.ionizedon 03-20-2025 Calcium.ionized (Bld) [Moles/Vol] 1.20 mmol/L Normal 1.1-1.33 [facility] Comment on above: Result Comment: The performance characteristics of ionized calcium testedin heparinized plasma or serum have been validated [facility] where [facility] is [facility].Testing on heparinized plasma or serum is not approved bythe FDA; however, such approval is not necessary. Performed By: #### 1 994-3 ####CALE Roth ([id number])[facility] ([facility])[address] [place] [address] Glucoseon 03-20-2025 Glucose (CSF) [Mass/Vol] 89 mg/dL High 40-70 [facility] Comment on above: Performed By: #### 2 342-4 ####CALE Roth ([id number])[facility] ([facility])[address]88 [place] [address] Glucose (CSF) [Mass/Vol] 81 mg/dL High 40-70 [facility] Comment on above: Performed By: #### 2 342-4 ####CALE Roth ([id number])[facility] ([facility])[address]992 [place] [address] Glucose Test strip manual (B ld) [Mass/Vol]on 03-20-2025 Glucose [Mass/Vol] 204 mg/dL High [address] [place] [address] Comment on above: Performed By: #### 2 341-6 ####CALE Roth ([id number])[facility] ([facility])[address]81 [place] [address] Glucose [Mass/Vol] 141 mg/dL High [address] [place] [address] Comment on above: Performed By: #### 2 341-6 ####CALE Roth ([id number])[facility] ([facility])[address]06 [place] [address] Glucose [Mass/Vol] 129 mg/dL High [address] [place] [address] Comment on above: Performed By: #### 2 341-6 ####CALE Roth ([id number])[facility] ([facility])[address] [place] [address] Glucose [Mass/Vol] 111 mg/dL High [address] [place] [address] Comment on above: Performed By: #### 2 341-6 ####CALE Roth ([id number])[facility] ([facility])[address]03 [place] [address] Glucose [Mass/Vol] 125 mg/dL High [address] [place] [address] Comment on above: Performed By: #### 2 341-6 ####CALE Roth ([id number])[facility] ([facility])[address] [place] [address] Magnesiumon 03-20-2025 Magnesium [Mass/Vol] 1.93 mg/dL Normal 1.60-2.40 [facility] Comment on above: Performed By: #### 1 9123-9 ####CALE Roth ([id number])[facility] ([facility])[address] [place] [address] Pathologist review Ibrahima (Unsp spec) [Interp]on 03-20-2025 PATH REVIEW-CELL CT,CSF Hemorrhagic specimen with bacteria present, correlate with separate microbiology result. [facility] Comment on above: Result Comment: Elec tronically signed out by Alberto Harrell MD on 03/22/25 at 3:45 PM.By the signature on this report, the individual or group listed as making the Final Interpretation/Diagnosis certifies that they have reviewed this case. Performed By: #### 5 9465-5 ####CALE Roth ([id number])[facility] ([facility])[address] [place] [address] PATH REVIEW-CELL CT,CSF Hemorrhagic specimen with many bacteria present, correlate with separate microbiology result. Normal [facility] Comment on above: Result Comment: Elec tronically signed out by Alberto Harrell MD on 03/22/25 at 3:45 PM.By the signature on this report, the individual or group listed as making the Final Interpretation/Diagnosis certifies that they have reviewed this case. Performed By: #### 5 9465-5 ####CALE Roth ([id number])[facility] ([facility])[address] [place] [address] Proteinon 03-20-2025 Protein (CSF) [Mass/Vol] 16 mg/dL Normal 15-45 [facility] Comment on above: Performed By: #### 2 880-3 ####CALE Roth ([id number])[facility] ([facility])[address] [place] [address] Protein (CSF) [Mass/Vol] 23 mg/dL Normal 15-45 [facility] Comment on above: Performed By: #### 2 880-3 ####CALE CAI L ([id number])[facility] ([facility])[address] [place] [address] Renal function 2000 panelon 03-20-2025 Albumin BCP dye [Mass/Vol] 4.1 g/dL Normal 3.4-5.0 [facility] Comment on above: Performed By: #### 2 4362-6 ####CALE TOSCANOMOTZER L ([id number])[facility] ([facility])[address] [place] [address]138 Anion gap [Moles/Vol] 13 mmol/L Normal 10-20 [facility] Comment on above: Performed By: #### 2 4362-6 ####CALE RUTLEDGEER L ([id number])[facility] ([facility])[address]16 [place] [address] Calcium [Mass/Vol] 9.3 mg/dL Normal 8.6-10.[address] [facility] Comment on above: Performed By: #### 2 4362-6 ####CALE CAI L ([id number])[facility] ([facility])[address]896 [place] [address] Chloride [Moles/Vol] 106 mmol/L Normal 98-107 [facility] Comment on above: Performed By: #### 2 4362-6 ####CALE CAI L ([id number])[facility] ([facility])[address]05 [place] [address] CO2 [Moles/Vol] 26 mmol/L Normal 21-32 [facility] Comment on above: Performed By: #### 2 4362-6 ####CALE CAI L ([id number])[facility] ([facility])[address]25 [place] [address] Creatinine [Mass/Vol] 0.36 mg/dL Low 0.50-1.05 [facility] Comment on above: Performed By: #### 2 4362-6 ####CALE CAI L ([id number])[facility] ([facility])[address]143 [place] [address] Glomerular filtration rate >90 Normal >60 [facility] Comment on above: Result Comment: Calc ulations of estimated GFR are performed using the 2020 CKD-EPI Study Refit equation without the race variable for the IDMS-Traceable creatinine methods.https://jasn.asnjournals.org/content//ASN .5123035341 Performed By: #### 2 4362-6 ####CALE CAI L ([id number])[facility] ([facility])[address]226 [place] [address] Glucose [Mass/Vol] 130 mg/dL High 74-[address] [facility] Comment on above: Performed By: #### 2 4362-6 ####CALE Roth ([id number])[facility] ([facility])[address]33 [place] [address] Phosphate [Mass/Vol] 1.9 mg/dL Low 2.5-4.9 [facility] Comment on above: Performed By: #### 2 4362-6 ####CALE Roth ([id number])[facility] ([facility])[address]61 [place] [address] Potassium [Moles/Vol] 4.0 mmol/L Normal 3.5-5.3 [facility] Comment on above: Performed By: #### 2 4362-6 ####CALE Roth ([id number])[facility] ([facility])[address]808 [place] [address] Sodium [Moles/Vol] 141 mmol/L Normal 136-[address] [facility] Comment on above: Performed By: #### 2 4362-6 ####CALE Roth ([id number])[facility] ([facility])[address]26 [place] [address] Urea nitrogen [Mass/Vol] 10 mg/dL Normal 6-23 [facility] Comment on above: Performed By: #### 2 4362-6 ####CALE Roth ([id number])[facility] ([facility])[address]25 [place] [address] Albumin BCP dye [Mass/Vol] 4.0 g/dL Normal 3.4-5.0 [facility] Comment on above: Performed By: #### 2 4362-6 ####CALE Roth ([id number])[facility] ([facility])[address]102 [place] [address] Anion gap [Moles/Vol] 12 mmol/L Normal 10-20 [facility] Comment on above: Performed By: #### 2 4362-6 ####CALE Roth ([id number])[facility] ([facility])[address]571 [place] [address] Calcium [Mass/Vol] 9.4 mg/dL Normal 8.6-10.[address] [facility] Comment on above: Performed By: #### 2 4362-6 ####CALE CAI L ([id number])[facility] ([facility])[address]63 [place] [address] Chloride [Moles/Vol] 101 mmol/L Normal 98-107 [facility] Comment on above: Performed By: #### 2 4362-6 ####CALE CAI L ([id number])[facility] ([facility])[address]010 [place] [address] CO2 [Moles/Vol] 27 mmol/L Normal 21-32 [facility] Comment on above: Performed By: #### 2 4362-6 ####CALE Roth ([id number])[facility] ([facility])[address]593 [place] [address] Creatinine [Mass/Vol] 0.41 mg/dL Low 0.50-1.05 [facility] Comment on above: Performed By: #### 2 4362-6 ####CALE CAI L ([id number])[facility] ([facility])[address]20 [place] [address] Glomerular filtration rate >90 Normal >60 [facility] Comment on above: Result Comment: Calc ulations of estimated GFR are performed using the 2020 CKD-EPI Study Refit equation without the race variable for the IDMS-Traceable creatinine methods.https://jasn.asnjournals.org/content//ASN .6053467427 Performed By: #### 2 4362-6 ####CALE CAI L ([id number])[facility] ([facility])[address]390 [place] [address] Glucose [Mass/Vol] 134 mg/dL High 74-[address] [facility] Comment on above: Performed By: #### 2 4362-6 ####CALE Roth ([id number])[facility] ([facility])[address]42 [place] [address] Phosphate [Mass/Vol] 2.0 mg/dL Low 2.5-4.9 [facility] Comment on above: Performed By: #### 2 4362-6 ####CALE Roth ([id number])[facility] ([facility])[address]80 [place] [address] Potassium [Moles/Vol] 3.5 mmol/L Normal 3.5-5.3 [facility] Comment on above: Performed By: #### 2 4362-6 ####CALE Roth ([id number])[facility] ([facility])[address]245 [place] [address] Sodium [Moles/Vol] 136 mmol/L Normal 136-[address] [facility] Comment on above: Performed By: #### 2 4362-6 ####CALE Roth ([id number])[facility] ([facility])57175 [place] [address] Urea nitrogen [Mass/Vol] 13 mg/dL Normal 6-23 [facility] Comment on above: Performed By: #### 2 4362-6 ####CALE Roth ([id number])[facility] ([facility])[address]61 [place] [address] CBC W Auto Differential pane l (Bld)on 03-19-2025 Basophils (Bld) [#/Vol] 0.02 x10*3/uL Normal 0.00-0.10 [facility] Comment on above: Performed By: #### 5 7021-8 ####CALE Roth ([id number])[facility] ([facility])[address]88 [place] [address] Basophils/100 WBC (Bld) 0.1 % Normal 0.0-2.0 [facility] Comment on above: Performed By: #### 5 7021-8 ####CALE Roth ([id number])[facility] ([facility])19674 [place] [address] Eosinophils (Bld) [#/Vol] 0.00 x10*3/uL Normal 0.00-0.70 [facility] Comment on above: Performed By: #### 5 7021-8 ####CALE Roth ([id number])[facility] ([facility])[address] [place] [address] Eosinophils/100 WBC (Bld) 0.0 % Normal 0.0-6.0 [facility] Comment on above: Performed By: #### 5 7021-8 ####CALE Roth ([id number])[facility] ([facility])[address] [place] [address] Erythrocyte distribution width (RBC) [Ratio] 13.0 % Normal 11.5-14.5 [facility] Comment on above: Performed By: #### 5 7021-8 ####CALE Roth (41900)[facility] ([facility])[address] [place] [address] Hematocrit (Bld) [Volume fraction] 29.5 % Low 36.0-46.0 [facility] Comment on above: Performed By: #### 5 7021-8 ####CALE Roth ([id number])[facility] ([facility])[address]50 [place] [address] Hemoglobin (Bld) [Mass/Vol] 10.5 g/dL Low 12.0-16.0 [facility] Comment on above: Performed By: #### 5 7021-8 ####CALE Roth ([id number])[facility] ([facility])[address] [place] [address] Immature granulocytes (Bld) [#/Vol] 0.17 x10*3/uL Normal 0.00-0.70 [facility] Comment on above: Performed By: #### 5 7021-8 ####CALE Roth ([id number])[facility] ([facility])[address]60 [place] [address] Immature granulocytes/100 WBC (Bld) 1.3 % High 0.0-0.9 [facility] Comment on above: Result Comment: Aleisha ture Granulocyte Count (IG) includes promyelocytes, myelocytes and metamyelocytes but does not include bands. Percent differential counts (%) should be interpreted in the context of the absolute cell counts (cells/UL). Performed By: #### 5 7021-8 ####CALE Roth ([id number])[facility] ([facility])[address]855 [place] [address] Lymphocytes (Bld) [#/Vol] 0.93 x10*3/uL Low 1.20-4.80 [facility] Comment on above: Performed By: #### 5 7021-8 ####CALE Roth ([id number])[facility] ([facility])[address]101 [place] [address] Lymphocytes/100 WBC (Bld) 6.9 % Normal 13.0-44.0 [facility] Comment on above: Performed By: #### 5 7021-8 ####CALE Roth ([id number])[facility] ([facility])[address]40 [place] [address] MCH (RBC) [Entitic mass] 30.3 pg Normal 26.0-34.0 [facility] Comment on above: Performed By: #### 5 7021-8 ####CALE Roth ([id number])[facility] ([facility])[address]136 [place] [address] MCHC (RBC) [Mass/Vol] 35.6 g/dL Normal 32.0-36.0 [facility] Comment on above: Performed By: #### 5 7021-8 ####CALE Roth ([id number])[facility] ([facility])[address]81 [place] [address] MCV (RBC) [Entitic vol] 85 fL Normal 80-100 [facility] Comment on above: Performed By: #### 5 7021-8 ####CALE Roth ([id number])[facility] ([facility])[address]66 [place] [address] Monocytes (Bld) [#/Vol] 0.85 x10*3/uL Normal 0.10-1.00 [facility] Comment on above: Performed By: #### 5 7021-8 ####CALE Roth ([id number])[facility] ([facility])[address] [place] [address] Monocytes/100 WBC (Bld) 6.3 % Normal 2.0-10.0 [facility] Comment on above: Performed By: #### 5 7021-8 ####CALE Roth ([id number])[facility] ([facility])[address] [place] [address] Neutrophils (Bld) [#/Vol] 11.53 x10*3/uL High 1.20-7.70 [facility] Comment on above: Result Comment: Perc ent differential counts (%) should be interpreted in the context of the absolute cell counts (cells/uL). Performed By: #### 5 7021-8 ####CALE Roth ([id number])[facility] ([facility])[address] [place] [address] Neutrophils/100 WBC (Bld) 85.4 % Normal 40.0-80.0 [facility] Comment on above: Performed By: #### 5 7021-8 ####CALE Roth ([id number])[facility] ([facility])[address] [place] [address] Nucleated RBC/100 WBC (Bld) [Ratio] 0.0 /100 WBCs Normal 0.0-0.0 [facility] Comment on above: Performed By: #### 5 7021-8 ####CALE Roth ([id number])[facility] ([facility])[address] [place] [address] Platelets (Bld) [#/Vol] 375 x10*3/uL Normal 150-450 [facility] Comment on above: Performed By: #### 5 7021-8 ####CALE Roth ([id number])[facility] ([facility])[address] [place] [address] RBC (Bld) [#/Vol] 3.47 x10*6/uL Low 4.00-5.20 [facility] Comment on above: Performed By: #### 5 7021-8 ####CALE Roth ([id number])[facility] ([facility])[address] [place] [address] WBC (Bld) [#/Vol] 13.5 x10*3/uL High 4.4-11.3 [facility] Comment on above: Performed By: #### 5 7021-8 ####CALE Roth ([id number])[facility] ([facility])[address] [place] [address] CT HEAD WO IV CONTRASTon CT HEAD WO IV CONTRAST Normal [facility] Calcium.ionizedon 03-19-2025 Calcium.ionized (Bld) [Moles/Vol] 1.20 mmol/L Normal 1.1-1.33 [facility] Comment on above: Result Comment: The performance characteristics of ionized calcium testedin heparinized plasma or serum have been validated by [facility] where [facility] is performed.Testing on heparinized plasma or serum is not approved bythe FDA; however, such approval is not necessary. Performed By: #### 1 994-3 ####CALE Roth ([id number])[facility] ([facility])[address] [place] [address] Glucose Test strip manual (B ld) [Mass/Vol]on 03-19-2025 Glucose [Mass/Vol] 130 mg/dL [address] Comment on above: Performed By: #### 2 341-6 ####CALE Roth ([id number])[facility] ([facility])[address] [place] [address] Glucose [Mass/Vol] 138 mg/dL High 74-[address] [facility] Comment on above: Performed By: #### 2 341-6 ####CALE Roth ([id number])[facility] ([facility])[address] [place] [address] Glucose [Mass/Vol] 124 mg/dL High [address] [place] [address] Comment on above: Performed By: #### 2 341-6 ####CALE Roth ([id number])[facility] ([facility])[address] [place] [address] Glucose [Mass/Vol] 127 mg/dL High -[address] [place] [address] Comment on above: Performed By: #### 2 341-6 ####CALE Roth ([id number])[facility] ([facility])[address]88 [place] [address] Glucose [Mass/Vol] 128 mg/dL High [address] [place] [address] Comment on above: Performed By: #### 2 341-6 ####CALE Roth ([id number])[facility] ([facility])[address]151 [place] [address] Glucose [Mass/Vol] 119 mg/dL High [address] [place] [address] Comment on above: Performed By: #### 2 341-6 ####CALE Roth ([id number])[facility] ([facility])[address]238 [place] [address] Hemoglobin.gastrointestinal^ 1st specimenon 03-19-2025 Hemoglobin.gastroint estinal spec 1 Ql (Stl) Positive Abnormal Negative [facility] Comment on above: Order Comment: From gastric contents Performed By: #### 1 4563-1 ####CALE Roth ([id number])[facility] ([facility])[address]124 [place] [address] Procalcitoninon 03-19-2025 Procalcitonin [Mass/Vol] ng/mL Normal <=0.07 [facility] Comment on above: Order Comment: Proca lcitonin (PCT) results measured serially canaid in decision-making for antibiotic discontinuation inpatients with suspected or confirmed sepsis in conjunctionwith additional clinical information. Antibioticdiscontinuation may be considered with a change in PCT of>80% from the peak result or when PCT falls below 0.50 ng/mL.Procalcitonin results should not be used in isolation butshould be interpreted in conjunction with additional clinicaland laboratory findings. Procalcitonin results should not beused to guide the initiation of antibiotic therapy.Falsely low PCT values in the presence of bacterial infectionmay occur in early infection, with atypical pathogens,localized infections, and subacute infectious endocarditis.Falsely elevated results outside of severe bacterialinfection/sepsis may be seen in patients with renal failureor insufficiency, severe trauma or hunter, recent majorabdominal/cardiac surgery, acute multi-organ failure, rarelyin patients with medullary thyroid carcinoma and rareneuroendocrine tumors, and non-specific interfering antibodies(heterophile antibodies, rheumatoid factor, human anti-mouseantibodies (HAMA), etc).Performance of the PCT test in pediatric patients (<18yo), women, immunocompromised patients, and patients onimmunomodulatory medications has not been evaluated. Performed By: #### 3 3959-8 ####CALE Roth ([id number])[facility] ([facility])[address]38 [place] [address] Renal function 2000 panelon 03-19-2025 Albumin BCP dye [Mass/Vol] 4.0 g/dL Normal 3.4-5.0 [facility] Comment on above: Performed By: #### 2 4362-6 ####CALE Roth ([id number])[facility] ([facility])[address] [place] [address] Anion gap [Moles/Vol] 10 mmol/L Normal 10-20 [facility] Comment on above: Performed By: #### 2 4362-6 ####CALE Roth ([id number])[facility] ([facility])[address]448 [place] [address] Calcium [Mass/Vol] 9.5 mg/dL Normal 8.6-10.[address] [facility] Comment on above: Performed By: #### 2 4362-6 ####CALE Roth ([id number])[facility] ([facility])[address] [place] [address] Chloride [Moles/Vol] 105 mmol/L Normal 98-107 [facility] Comment on above: Performed By: #### 2 4362-6 ####CALE Roth ([id number])[facility] ([facility])[address] [place] [address] CO2 [Moles/Vol] 30 mmol/L Normal 21-32 [facility] Comment on above: Performed By: #### 2 4362-6 ####CALE Roth ([id number])[facility] ([facility])[address]65 [place] [address] Creatinine [Mass/Vol] 0.45 mg/dL Low 0.50-1.05 [facility] Comment on above: Performed By: #### 2 4362-6 ####CALE Roth ([id number])[facility] ([facility])[address]008 [place] [address] Glomerular filtration rate >90 Normal >60 [facility] Comment on above: Result Comment: Calc ulations of estimated GFR are performed using the 2020 CKD-EPI Study Refit equation without the race variable for the IDMS-Traceable creatinine methods.https://jasn.asnjournals.org/content//ASN .2087566509 Performed By: #### 2 4362-6 ####CALE Roth ([id number])[facility] ([facility])[address]334 [place] [address] Glucose [Mass/Vol] 129 mg/dL High 74-[address] [facility] Comment on above: Performed By: #### 2 4362-6 ####CALE Roth ([id number])[facility] ([facility])[address]497 [place] [address] Phosphate [Mass/Vol] 2.8 mg/dL Normal 2.5-4.9 [facility] Comment on above: Performed By: #### 2 4362-6 ####CALE Roth ([id number])[facility] ([facility])[address]94 [place] [address] Potassium [Moles/Vol] 3.6 mmol/L Normal 3.5-5.3 [facility] Comment on above: Performed By: #### 2 4362-6 ####CALE Roth ([id number])[facility] ([facility])[address]394 [place] [address] Sodium [Moles/Vol] 141 mmol/L Normal 136-[address] [facility] Comment on above: Performed By: #### 2 4362-6 ####CALE Roth ([id number])[facility] ([facility])[address]36 [place] [address] Urea nitrogen [Mass/Vol] 13 mg/dL Normal 6-23 [facility] Comment on above: Performed By: #### 2 4362-6 ####CALE Roth ([id number])[facility] ([facility])[address]69 [place] [address] VASC US TRANSCRANIAL DOPPLER (TCD) COMPLETEon 03-19-2025 VAS US TRANSCRANIAL DOPPLER (TCD) COMPLETE Normal [facility] CBC W Auto Differential pane l (Bld)on 03-18-2025 Basophils (Bld) [#/Vol] 0.04 x10*3/uL Normal 0.00-0.10 [facility] Comment on above: Performed By: #### 5 7021-8 ####CALE Roth ([id number])[facility] ([facility])[address]357 [place] [address] Basophils/100 WBC (Bld) 0.4 % Normal 0.0-2.0 [facility] Comment on above: Performed By: #### 5 7021-8 ####CALE Roth ([id number])[facility] ([facility])[address]69 [place] [address] Eosinophils (Bld) [#/Vol] 0.01 x10*3/uL Normal 0.00-0.70 [facility] Comment on above: Performed By: #### 5 7021-8 ####CALE Roth ([id number])[facility] ([facility])[address] [place] [address] Eosinophils/100 WBC (Bld) 0.1 % Normal 0.0-6.0 [facility] Comment on above: Performed By: #### 5 7021-8 ####CALE Roth ([id number])[facility] ([facility])[address] [place] [address] Erythrocyte distribution width (RBC) [Ratio] 13.2 % Normal 11.5-14.5 [facility] Comment on above: Performed By: #### 5 7021-8 ####CALE Roth ([id number])[facility] ([facility])[address] [place] [address] Hematocrit (Bld) [Volume fraction] 33.4 % Low 36.0-46.0 [facility] Comment on above: Performed By: #### 5 7021-8 ####CALE Roth ([id number])[facility] ([facility])[address] [place] [address] Hemoglobin (Bld) [Mass/Vol] 11.1 g/dL Low 12.0-16.0 [facility] Comment on above: Performed By: #### 5 7021-8 ####CALE Roth ([id number])[facility] ([facility])[address] [place] [address] Immature granulocytes (Bld) [#/Vol] 0.25 x10*3/uL Normal 0.00-0.70 [facility] Comment on above: Performed By: #### 5 7021-8 ####CALE Roth ([id number])[facility] ([facility])[address] [place] [address] Immature granulocytes/100 WBC (Bld) 2.5 % High 0.0-0.9 [facility] Comment on above: Result Comment: Aleisha ture Granulocyte Count (IG) includes promyelocytes, myelocytes and metamyelocytes but does not include bands. Percent differential counts (%) should be interpreted in the context of the absolute cell counts (cells/UL). Performed By: #### 5 7021-8 ####CALE Roth ([id number])[facility] ([facility])[address]144 [place] [address] Lymphocytes (Bld) [#/Vol] 0.77 x10*3/uL Low 1.20-4.80 [facility] Comment on above: Performed By: #### 5 7021-8 ####CALE Roth ([id number])[facility] ([facility])[address]27 [place] [address] Lymphocytes/100 WBC (Bld) 7.6 % Normal 13.0-44.0 [facility] Comment on above: Performed By: #### 5 7021-8 ####CALE Roth ([id number])[facility] ([facility])[address]396 [place] [address] MCH (RBC) [Entitic mass] 30.0 pg Normal 26.0-34.0 [facility] Comment on above: Performed By: #### 5 7021-8 ####CALE Roth ([id number])[facility] ([facility])[address]143 [place] [address] MCHC (RBC) [Mass/Vol] 33.2 g/dL Normal 32.0-36.0 [facility] Comment on above: Performed By: #### 5 7021-8 ####CALE Roth ([id number])[facility] ([facility])[address]238 [place] [address] MCV (RBC) [Entitic vol] 90 fL Normal 80-100 [facility] Comment on above: Performed By: #### 5 7021-8 ####CALE Roth ([id number])[facility] ([facility])[address]991 [place] [address] Monocytes (Bld) [#/Vol] 0.43 x10*3/uL Normal 0.10-1.00 [facility] Comment on above: Performed By: #### 5 7021-8 ####CALE Roth ([id number])[facility] ([facility])[address]335 [place] [address] Monocytes/100 WBC (Bld) 4.2 % Normal 2.0-10.0 [facility] Comment on above: Performed By: #### 5 7021-8 ####CALE Roth ([id number])[facility] ([facility])25692 [place] [address] Neutrophils (Bld) [#/Vol] 8.65 x10*3/uL High 1.20-7.70 [facility] Comment on above: Result Comment: Perc ent differential counts (%) should be interpreted in the context of the absolute cell counts (cells/uL). Performed By: #### 5 7021-8 ####CALE Roth ([id number])[facility] ([facility])[address]45 [place] [address] Neutrophils/100 WBC (Bld) 85.2 % Normal 40.0-80.0 [facility] Comment on above: Performed By: #### 5 7021-8 ####CALE Roth ([id number])[facility] ([facility])[address]97 [place] [address] Nucleated RBC/100 WBC (Bld) [Ratio] 0.0 /100 WBCs Normal 0.0-0.0 [facility] Comment on above: Performed By: #### 5 7021-8 ####CALE Roth ([id number])[facility] ([facility])[address]76 [place] [address] Platelets (Bld) [#/Vol] 387 x10*3/uL Normal 150-450 [facility] Comment on above: Performed By: #### 5 7021-8 ####CALE Roth ([id number])[facility] ([facility])[address]009 [place] [address] RBC (Bld) [#/Vol] 3.70 x10*6/uL Low 4.00-5.20 [facility] Comment on above: Performed By: #### 5 7021-8 ####CALE Roth ([id number])[facility] ([facility])[address]326 [place] [address] WBC (Bld) [#/Vol] 10.2 x10*3/uL Normal 4.4-11.3 [facility] Comment on above: Performed By: #### 5 7021-8 ####CALE Roth ([id number])[facility] ([facility])[address]92 [place] [address] CT HEAD WO IV CONTRASTon CT HEAD WO IV CONTRAST Normal [facility] Calcium.ionizedon 03-18-2025 Calcium.ionized (Bld) [Moles/Vol] 1.22 mmol/L Normal 1.1-1.33 [facility] Comment on above: Result Comment: The performance characteristics of ionized calcium testedin heparinized plasma or serum have been validated [facility] where [facility] is [facility].Testing on heparinized plasma or serum is not approved bythe FDA; however, such approval is not necessary. Performed By: #### 1 994-3 ####CALE Roth ([id number])[facility] ([facility])[address] [place] [address] Gas and Carbon monoxide and Electrolytes panel (BldA)on 03-18-2025 Anion gap 4 (BldA) [Moles/Vol] 10 mmo/L Normal 04-17 [facility] Comment on above: Performed By: #### 9 3685-6 ####CALE Roth ([id number])[facility] ([facility])[address]52 [place] [address] Base excess Calc (Bld) [Moles/Vol] 4.4 mmol/L High -2.0-3.0 [facility] Comment on above: Performed By: #### 9 3685-6 ####CALE Roth (73905)[facility] ([facility])40963 [place] [address] Calcium.ionized (BldA) [Moles/Vol] 1.20 mmol/L Normal 1.10-1.33 [facility] Comment on above: Performed By: #### 9 3685-6 ####CALE Roth ([id number])[facility] ([facility])12164 [place] [address] Chloride (BldA) [Moles/Vol] 107 mmol/L Normal 98-107 [facility] Comment on above: Performed By: #### 9 3685-6 ####CALE Roth ([id number])[facility] ([facility])[address] [place] [address] CO2 (Bld) [Partial pressure] 39 mm Hg Normal 38-42 [facility] Comment on above: Performed By: #### 9 3685-6 ####CALE Roth ([id number])[facility] ([facility])[address] [place] [address] Glucose [Mass/Vol] 125 mg/dL High 74-[address] [facility] Comment on above: Performed By: #### 9 3685-6 ####CALE Roth ([id number])[facility] ([facility])[address] [place] [address] HCO3 (Bld) [Moles/Vol] 28.4 mmol/L High 22.0-26.0 [facility] Comment on above: Performed By: #### 9 3685-6 ####CALE Roth ([id number])[facility] ([facility])[address] [place] [address] Hematocrit Est (Bld) [Volume fraction] 34.0 % Low 36.0-46.0 [facility] Comment on above: Performed By: #### 9 3685-6 ####CALE Roth ([id number])[facility] ([facility])[address]2452 [place] [address] Hemoglobin (Bld) [Mass/Vol] 11.3 g/dL Low 12.0-16.0 [facility] Comment on above: Performed By: #### 9 3685-6 ####CALE Roth ([id number])[facility] ([facility])[address] [place] [address] 24633 Inhaled oxygen concentration 30 % Normal [facility] Comment on above: Performed By: #### 9 1405-6 ####CALE Roth ([id number])[facility] ([facility])[address] [place] [address] Lactate (BldA) [Moles/Vol] 0.6 mmol/L Normal 0.4-2.0 [facility] Comment on above: Performed By: #### 9 0325-6 ####CALE Roth ([id number])[facility] ([facility])[address] [place] [address] Oxygen (Bld) [Partial pressure] 142 mm Hg High 85-95 [facility] Comment on above: Performed By: #### 9 8225-6 ####CALE Roth ([id number])[facility] ([facility])[address] [place] [address] Oxyhemoglobin (BldA) [Mass fraction] 98.2 % High 94.0-98.0 [facility] Comment on above: Performed By: #### 9 1745-6 ####CALE Roth ([id number])[facility] ([facility])[address] [place] [address] 30645 pH (Bld) 7.47 [pH] High 7.38-7.42 [facility] Comment on above: Performed By: #### 9 05756 ####CALE Roth ([id number])[facility] ([facility])[address] [place] [address] Potassium (BldA) [Moles/Vol] 3.2 mmol/L Low 3.5-5.3 [facility] Comment on above: Performed By: #### 9 71856 ####CALE Roth ([id number])[facility] ([facility])[address]45 [place] [address] Sodium (BldA) [Moles/Vol] 142 mmol/L Normal 136-145 [facility] Comment on above: Performed By: #### 9 3685-6 ####CALE Roth ([id number])[facility] ([facility])21715 [place] [address] Glucose Test strip manual (B ld) [Mass/Vol]on 03-18-2025 Glucose [Mass/Vol] 119 mg/dL High 74-[address] [facility] Comment on above: Performed By: #### 2 341-6 ####CALE Roth ([id number])[facility] ([facility])[address]38 [place] [address] Glucose [Mass/Vol] 144 mg/dL High 74-[address] [facility] Comment on above: Performed By: #### 2 341-6 ####CALE Roth ([id number])[facility] ([facility])14546 [place] [address] Glucose [Mass/Vol] 99 mg/dL Normal 74-[address] [facility] Comment on above: Performed By: #### 2 341-6 ####CALE Roth ([id number])[facility] ([facility])[address] [place] [address] Glucose [Mass/Vol] 99 mg/dL Normal 74-[address] [facility] Comment on above: Performed By: #### 2 341-6 ####CALE Roth ([id number])[facility] ([facility])[address]87 [place] [address] Glucose [Mass/Vol] 131 mg/dL High 74-[address] [facility] Comment on above: Performed By: #### 2 341-6 ####CALE Roth ([id number])[facility] ([facility])[address] [facility] [place] [address] MR BRAIN WO IV CONTRASTon MR BRAIN WO IV CONTRAST Normal [facility] Magnesiumon 03-18-2025 Magnesium [Mass/Vol] 2.17 mg/dL Normal 1.60-2.40 [facility] Comment on above: Performed By: #### 1 9123-9 ####CALE Roth ([id number])[facility] ([facility])[address]65 [place] [address] Renal function 2000 panelon 03-18-2025 Albumin BCP dye [Mass/Vol] 4.2 g/dL Normal 3.4-5.0 [facility] Comment on above: Performed By: #### 2 4362-6 ####CALE Roth ([id number])[facility] ([facility])[address] [place] [address]1648 Anion gap [Moles/Vol] 11 mmol/L Normal 10-20 [facility] Comment on above: Performed By: #### 2 4362-6 ####CALE Roth ([id number])[facility] ([facility])[address] [place] [address] Calcium [Mass/Vol] 9.6 mg/dL Normal 8.6-10.[address] [facility] Comment on above: Performed By: #### 2 4362-6 ####CALE Roth ([id number])[facility] ([facility])[address] [place] [address] Chloride [Moles/Vol] 104 mmol/L Normal 98-107 [facility] Comment on above: Performed By: #### 2 4362-6 ####CALE Roth ([id number])[facility] ([facility])[address] [place] [address] CO2 [Moles/Vol] 29 mmol/L Normal 21-32 [facility] Comment on above: Performed By: #### 2 4362-6 ####CALE Roth ([id number])[facility] ([facility])[address] [place] [address] Creatinine [Mass/Vol] 0.48 mg/dL Low 0.50-1.05 [facility] Comment on above: Performed By: #### 2 4362-6 ####CALE Roth ([id number])[facility] ([facility])[address] [place] [address] Glomerular filtration rate >90 Normal >60 [facility] Comment on above: Result Comment: Calc ulations of estimated GFR are performed using the 2020 CKD-EPI Study Refit equation without the race variable for the IDMS-Traceable creatinine methods.https://jasn.asnjournals.org/content/early//ASN .5326305832 Performed By: #### 2 4362-6 ####CALE Roth ([id number])[facility] ([facility])[address] [place] [address] Glucose [Mass/Vol] 130 mg/dL High 74-[address] [facility] Comment on above: Performed By: #### 2 4362-6 ####CALE Roth ([id number])[facility] ([facility])[address] [place] [address] Phosphate [Mass/Vol] 2.3 mg/dL Low 2.5-4.9 [facility] Comment on above: Performed By: #### 2 4362-6 ####CALE Roth ([id number])[facility] ([facility])[address] [place] [address] Potassium [Moles/Vol] 3.1 mmol/L Low 3.5-5.3 [facility] Comment on above: Performed By: #### 2 4362-6 ####CALE CAI L ([id number])[facility] ([facility])[address] [place] [address] Sodium [Moles/Vol] 141 mmol/L Normal 136-[address] [facility] Comment on above: Performed By: #### 2 4362-6 ####CALE CAI L ([id number])[facility] ([facility])[address] [place] [address] Urea nitrogen [Mass/Vol] 17 mg/dL Normal 6-23 [facility] Comment on above: Performed By: #### 2 4362-6 ####CALE Roth ([id number])[facility] ([facility])[address] [place] [address] 36166 XR CHEST 1 VIEWon 03-18-2025 XR CHEST 1 VIEW Normal [facility] CBC W Auto Differential pane l (Bld)on 03-17-2025 Basophils (Bld) [#/Vol] 0.03 x10*3/uL Normal 0.00-0.10 [facility] Comment on above: Performed By: #### 5 7021-8 ####CALE Roth ([id number])[facility] ([facility])[address] [place] [address] 85516 Basophils/100 WBC (Bld) 0.3 % Normal 0.0-2.0 [facility] Comment on above: Performed By: #### 5 7021-8 ####CALE Roth ([id number])[facility] ([facility])[address] [place] [address] 13037 Eosinophils (Bld) [#/Vol] 0.00 x10*3/uL Normal 0.00-0.70 [facility] Comment on above: Performed By: #### 5 7021-8 ####CALE Roth ([id number])[facility] ([facility])[address] [place] [address] 34002 Eosinophils/100 WBC (Bld) 0.0 % Normal 0.0-6.0 [facility] Comment on above: Performed By: #### 5 7021-8 ####CALE Roth ([id number])[facility] ([facility])[address] [place] [address] 21200 Erythrocyte distribution width (RBC) [Ratio] 13.0 % Normal 11.5-14.5 [facility] Comment on above: Performed By: #### 5 7021-8 ####CALE Roth ([id number])[facility] ([facility])[address] [place] [address] Hematocrit (Bld) [Volume fraction] 27.5 % Low 36.0-46.0 [facility] Comment on above: Performed By: #### 5 7021-8 ####CALE Roth ([id number])[facility] ([facility])[address] [place] [address] Hemoglobin (Bld) [Mass/Vol] 9.7 g/dL Low 12.0-16.0 [facility] Comment on above: Performed By: #### 5 7021-8 ####CALE Roth ([id number])[facility] ([facility])[address] [place] [address]9956 Immature granulocytes (Bld) [#/Vol] 0.18 x10*3/uL Normal 0.00-0.70 [facility] Comment on above: Performed By: #### 5 7021-8 ####CALE Roth ([id number])[facility] ([facility])[address] [place] [address] 71801 Immature granulocytes/100 WBC (Bld) 1.8 % High 0.0-0.9 [facility] Comment on above: Result Comment: Aleisha ture Granulocyte Count (IG) includes promyelocytes, myelocytes and metamyelocytes but does not include bands. Percent differential counts (%) should be interpreted in the context of the absolute cell counts (cells/UL). Performed By: #### 5 7021-8 ####CALE Roth ([id number])[facility] ([facility])[address] [place] [address] Lymphocytes (Bld) [#/Vol] 0.65 x10*3/uL Low 1.20-4.80 [facility] Comment on above: Performed By: #### 5 7021-8 ####CALE Roth ([id number])[facility] ([facility])[address] [place] [address] Lymphocytes/100 WBC (Bld) 6.4 % Normal 13.0-44.0 [facility] Comment on above: Performed By: #### 5 7021-8 ####CALE Roth ([id number])[facility] ([facility])[address] [place] [address] MCH (RBC) [Entitic mass] 29.9 pg Normal 26.0-34.0 [facility] Comment on above: Performed By: #### 5 7021-8 ####CALE Roth ([id number])[facility] ([facility])[address] [place] [address] 24037 MCHC (RBC) [Mass/Vol] 35.3 g/dL Normal 32.0-36.0 [facility] Comment on above: Performed By: #### 5 7021-8 ####CALE Roth ([id number])[facility] ([facility])[address] [place] [address] 41234 MCV (RBC) [Entitic vol] 85 fL Normal 80-100 [facility] Comment on above: Performed By: #### 5 7021-8 ####CALE Roth ([id number])[facility] ([facility])[address] [place] [address] 68964 Monocytes (Bld) [#/Vol] 0.52 x10*3/uL Normal 0.10-1.00 [facility] Comment on above: Performed By: #### 5 7021-8 ####CALE Roth ([id number])[facility] ([facility])[address] [place] [address] Monocytes/100 WBC (Bld) 5.1 % Normal 2.0-10.0 [facility] Comment on above: Performed By: #### 5 7021-8 ####CALE Roth ([id number])[facility] ([facility])[address] [place] [address] 61507 Neutrophils (Bld) [#/Vol] 8.82 x10*3/uL High 1.20-7.70 [facility] Comment on above: Result Comment: Perc ent differential counts (%) should be interpreted in the context of the absolute cell counts (cells/uL). Performed By: #### 5 7021-8 ####CALE Roth ([id number])[facility] ([facility])[address] [place] [address] 27729 Neutrophils/100 WBC (Bld) 86.4 % Normal 40.0-80.0 [facility] Comment on above: Performed By: #### 5 7021-8 ####CALE CAI L ([id number])[facility] ([facility])[address] [place] [address] 58638 Nucleated RBC/100 WBC (Bld) [Ratio] 0.0 /100 WBCs Normal 0.0-0.0 [facility] Comment on above: Performed By: #### 5 7021-8 ####CALE CAI L ([id number])[facility] ([facility])[address] [place] [address] 63301 Platelets (Bld) [#/Vol] 279 x10*3/uL Normal 150-450 [facility] Comment on above: Performed By: #### 5 7021-8 ####CALE Roth ([id number])[facility] ([facility])[address] [place] [address] 55184 RBC (Bld) [#/Vol] 3.24 x10*6/uL Low 4.00-5.20 [facility] Comment on above: Performed By: #### 5 7021-8 ####CALE CAI L ([id number])[facility] ([facility])[address] [place] [address] 62008 WBC (Bld) [#/Vol] 10.2 x10*3/uL Normal 4.4-11.3 [facility] Comment on above: Performed By: #### 5 7021-8 ####CALE CAI L ([id number])[facility] ([facility])[address] [place] [address] ANGIO CHEST FOR PULMONARY EMBOLISMon 03-17-2025 CT ANGIO CHEST FOR PULMONARY EMBOLISM Normal [facility] Calcium.ionizedon 03-17-2025 Calcium.ionized (Bld) [Moles/Vol] 1.17 mmol/L Normal 1.1-1.33 [facility] Comment on above: Result Comment: The performance characteristics of ionized calcium testedin heparinized plasma or serum have been validated by theindividual laboratory site where testing is performed.Testing on heparinized plasma or serum is not approved [facility] FDA; however, such approval is not necessary. Performed By: #### 1 994-3 ####CALE Roth ([id number])[facility] ([facility])[address] [place] [address] 23896 ECG 12-LEADon 03-17-2025 ECG 12-LEAD Ventricular Rate 120 Atrial Rate 120 P-R Interval 160 QRS Duration 78 Q-T Interval 320 QTC Calculation(Bazett) 452 P Thendara 73 R Thendara 90 T Thendara 51 QRS Count 20 Q Onset 220 P Onset 140 P Offset 204 T Offset 380 QTC Fredericia 403 Diagnosis Sinus tachycardia Rightward axis Borderline ECG When compared with ECG of 17-MAR-2025 15:02, No significant change was found Confirmed by Derek Jiang ([id number]) on 03/18/2025 4:39:12 PM Normal [facility] Gas and Carbon monoxide and Electrolytes panel (BldA)on 03-17-2025 Anion gap 4 (BldA) [Moles/Vol] 12 mmo/L Normal 04-17 [facility] Comment on above: Performed By: #### 9 3685-6 ####CALE Roth ([id number])[facility] ([facility])[address] [place] [address] 85824 Base excess Calc (Bld) [Moles/Vol] 1.6 mmol/L Normal -2.0-3.0 [facility] Comment on above: Performed By: #### 9 3685-6 ####CALE Roth ([id number])[facility] ([facility])[address] [place] [address] 57619 Calcium.ionized (BldA) [Moles/Vol] 1.20 mmol/L Normal 1.10-1.33 [facility] Comment on above: Performed By: #### 9 3685-6 ####CALE Roth ([id number])[facility] ([facility])[address] [place] [address] Chloride (BldA) [Moles/Vol] 109 mmol/L High 98-107 [facility] Comment on above: Performed By: #### 9 3685-6 ####CALE CAI L ([id number])[facility] ([facility])[address] [place] [address] CO2 (Bld) [Partial pressure] 32 mm Hg Low 38-42 [facility] Comment on above: Performed By: #### 9 3685-6 ####CALE CAI L ([id number])[facility] ([facility])[address] [place] [address] 42826 Glucose [Mass/Vol] 153 mg/dL High 74-[address] [facility] Comment on above: Performed By: #### 9 8305-6 ####CALE CAI L ([id number])[facility] ([facility])[address] [place] [address] 09653 HCO3 (Bld) [Moles/Vol] 24.4 mmol/L Normal 22.0-26.0 [facility] Comment on above: Performed By: #### 9 9025-6 ####CALE CAI L ([id number])[facility] ([facility])[address] [place] [address] 50196 Hematocrit Est (Bld) [Volume fraction] 37.0 % Normal 36.0-46.0 [facility] Comment on above: Performed By: #### 9 3685-6 ####CALE CAI L ([id number])[facility] ([facility])[address] [place] [address] 15777 Hemoglobin (Bld) [Mass/Vol] 12.3 g/dL Normal 12.0-16.0 [facility] Comment on above: Performed By: #### 9 2075-6 ####CALE CAI L ([id number])[facility] ([facility])[address] [place] [address] 44578 Inhaled oxygen concentration 30 % Normal [facility] Comment on above: Performed By: #### 9 3685-6 ####CALE Roth ([id number])[facility] ([facility])[address] [place] [address] Lactate (BldA) [Moles/Vol] 0.9 mmol/L Normal 0.4-2.0 [facility] Comment on above: Performed By: #### 9 3685-6 ####CALE Roth ([id number])[facility] ([facility])[address] [place] [address] Oxygen (Bld) [Partial pressure] 133 mm Hg High 85-95 [facility] Comment on above: Performed By: #### 9 3685-6 ####CALE Roth ([id number])[facility] ([facility])[address] [place] [address] 84040 Oxyhemoglobin (BldA) [Mass fraction] 97.5 % Normal 94.0-98.0 [facility] Comment on above: Performed By: #### 9 4085-6 ####CALE Roth ([id number])[facility] ([facility])[address] [place] [address] 25086 pH (Bld) 7.49 [pH] High 7.38-7.42 [facility] Comment on above: Performed By: #### 9 3685-6 ####CALE Roth ([id number])[facility] ([facility])[address] [place] [address] 58924 Potassium (BldA) [Moles/Vol] 3.5 mmol/L Normal 3.5-5.3 [facility] Comment on above: Performed By: #### 9 7985-6 ####CALE Roth ([id number])[facility] ([facility])[address] [place] [address] 60821 Sodium (BldA) [Moles/Vol] 142 mmol/L Normal 136-145 [facility] Comment on above: Performed By: #### 9 8215-6 ####CALE Roth ([id number])[facility] ([facility])[address] [place] [address] Glucose Test strip manual (B ld) [Mass/Vol]on 03-17-2025 Glucose [Mass/Vol] 133 mg/dL High [address] [place] [address] Comment on above: Performed By: #### 2 341-6 ####CALE Roth ([id number])[facility] ([facility])[address] [place] [address] Glucose [Mass/Vol] 136 mg/dL High [address] [place] [address] Comment on above: Performed By: #### 2 341-6 ####CALE Roth ([id number])[facility] ([facility])[address] [place] [address] Glucose [Mass/Vol] 134 mg/dL High [address] [place] [address] Comment on above: Performed By: #### 2 341-6 ####CALE Roth ([id number])[facility] ([facility])[address] [place] [address] Glucose [Mass/Vol] 143 mg/dL High [address] [place] [address] Comment on above: Performed By: #### 2 341-6 ####CALE Roth ([id number])[facility] ([facility])[address] [place] [address] Glucose [Mass/Vol] 131 mg/dL High [address] [place] [address] Comment on above: Performed By: #### 2 341-6 ####CALE Roth ([id number])[facility] ([facility])[address] [place] [address] Glucose [Mass/Vol] 143 mg/dL High [address] [place] [address] Comment on above: Performed By: #### 2 341-6 ####CALE Roth ([id number])[facility] ([facility])[address] [place] [address] IR ANGIOGRAM CEREBRAL BILATE RALon 03-17-2025 IR ANGIOGRAM CEREBRAL BILATERAL Normal [facility] Magnesiumon 03-17-2025 Magnesium [Mass/Vol] 1.92 mg/dL Normal 1.60-2.40 [facility] Comment on above: Performed By: #### 1 9123-9 ####CALE Roth ([id number])[facility] ([facility])[address] [place] [address] Renal function 2000 panelon 03-17-2025 Albumin BCP dye [Mass/Vol] 4.1 g/dL Normal 3.4-5.0 [facility] Comment on above: Performed By: #### 2 4362-6 ####CALE Roth ([id number])[facility] ([facility])[address]447 [place] [address] Anion gap [Moles/Vol] 15 mmol/L Normal 10-20 [facility] Comment on above: Performed By: #### 2 4362-6 ####CALE Roth ([id number])[facility] ([facility])[address] [place] [address] Calcium [Mass/Vol] 9.2 mg/dL Normal 8.6-10.[address] [facility] Comment on above: Performed By: #### 2 4362-6 ####CALE Roth ([id number])[facility] ([facility])[address] [place] [address] Chloride [Moles/Vol] 107 mmol/L Normal 98-107 [facility] Comment on above: Performed By: #### 2 4362-6 ####CALE Roth ([id number])[facility] ([facility])[address] [place] [address] CO2 [Moles/Vol] 25 mmol/L Normal 21-32 [facility] Comment on above: Performed By: #### 2 4362-6 ####CALE Roth ([id number])[facility] ([facility])[address] [place] [address] Creatinine [Mass/Vol] 0.41 mg/dL Low 0.50-1.05 [facility] Comment on above: Performed By: #### 2 4362-6 ####CALE Roth ([id number])[facility] ([facility])[address]165 [place] [address] Glomerular filtration rate >90 Normal >60 [facility] Comment on above: Result Comment: Calc ulations of estimated GFR are performed using the 2020 CKD-EPI Study Refit equation without the race variable for the IDMS-Traceable creatinine methods.https://jasn.asnjournals.org/content/early/ASN .2558100039 Performed By: #### 2 4362-6 ####CALE Roth ([id number])[facility] ([facility])[address] [place] [address] Glucose [Mass/Vol] 152 mg/dL High 74-[address] [facility] Comment on above: Performed By: #### 2 4362-6 ####CALE Roth ([id number])[facility] ([facility])[address] [place] [address] Phosphate [Mass/Vol] 3.0 mg/dL Normal 2.5-4.9 [facility] Comment on above: Performed By: #### 2 4362-6 ####CALE CAI L ([id number])[facility] ([facility])[address]958 [place] [address] Potassium [Moles/Vol] 3.5 mmol/L Normal 3.5-5.3 [facility] Comment on above: Performed By: #### 2 4362-6 ####CALE CAI L ([id number])[facility] ([facility])[address]84 [place] [address] Sodium [Moles/Vol] 143 mmol/L Normal 136-[address] [facility] Comment on above: Performed By: #### 2 4362-6 ####CALE CAI L ([id number])[facility] ([facility])[address]107 [place] [address] Urea nitrogen [Mass/Vol] 12 mg/dL Normal 6-23 [facility] Comment on above: Performed By: #### 2 4362-6 ####CALE Roth ([id number])[facility] ([facility])[address] [place] [address] Albumin BCP dye [Mass/Vol] 3.8 g/dL Normal 3.4-5.0 [facility] Comment on above: Performed By: #### 2 4362-6 ####CALE Roth ([id number])[facility] ([facility])[address] [place] [address] Anion gap [Moles/Vol] 12 mmol/L Normal 10-20 [facility] Comment on above: Performed By: #### 2 4362-6 ####CALE Roth ([id number])[facility] ([facility])[address]139 [place] [address] Calcium [Mass/Vol] 9.1 mg/dL Normal 8.6-10.[address] [facility] Comment on above: Performed By: #### 2 4362-6 ####CALE Roth ([id number])[facility] ([facility])[address] [place] [address] Chloride [Moles/Vol] 110 mmol/L High 98-107 [facility] Comment on above: Performed By: #### 2 4362-6 ####CALE CAI L ([id number])[facility] ([facility])[address] [place] [address] CO2 [Moles/Vol] 25 mmol/L Normal 21-32 [facility] Comment on above: Performed By: #### 2 4362-6 ####CALE Roth ([id number])[facility] ([facility])[address] [place] [address] Creatinine [Mass/Vol] 0.38 mg/dL Low 0.50-1.05 [facility] Comment on above: Performed By: #### 2 4362-6 ####CALE Roth ([id number])[facility] ([facility])[address]86 [place] [address] Glomerular filtration rate >90 Normal >60 [facility] Comment on above: Result Comment: Calc ulations of estimated GFR are performed using the 2020 CKD-EPI Study Refit equation without the race variable for the IDMS-Traceable creatinine methods.https://jasn.asnjournals.org/content/early//ASN .9086197715 Performed By: #### 2 4362-6 ####CALE Roth ([id number])[facility] ([facility])[address] [place] [address] Glucose [Mass/Vol] 145 mg/dL High 74-[address] [facility] Comment on above: Performed By: #### 2 4362-6 ####CALE CAI L ([id number])[facility] ([facility])[address]14 [place] [address] Phosphate [Mass/Vol] 2.0 mg/dL Low 2.5-4.9 [facility] Comment on above: Performed By: #### 2 4362-6 ####CALE CAI L (49909)[facility] ([facility])[address]27 [place] [address] Potassium [Moles/Vol] 3.3 mmol/L Low 3.5-5.3 [facility] Comment on above: Performed By: #### 2 4362-6 ####CALE CAI L ([id number])[facility] ([facility])[address]83 [place] [address] Sodium [Moles/Vol] 144 mmol/L Normal 136-[address] [facility] Comment on above: Performed By: #### 2 4362-6 ####CALE CAI L ([id number])[facility] ([facility])[address]90 [place] [address] Urea nitrogen [Mass/Vol] 9 mg/dL Normal 6-23 [facility] Comment on above: Performed By: #### 2 4362-6 ####CALE RUTLEDGEER L ([id number])[facility] ([facility])[address] [place] [address] VASC US TRANSCRANIAL DOPPLER (TCD) COMPLETEon 03-17-2025 VASC US TRANSCRANIAL DOPPLER (TCD) COMPLETE Normal [facility] XR CHEST 1 VIEWon 03-17-2025 XR CHEST 1 VIEW Normal [facility] Bacteriaon 03-16-2025 Bacteria identified Cx Nom (CSF) Normal [facility] Comment on above: Performed By: #### 6 06-4 ####CALE Roth ([id number])[facility] ([facility])[address] [place] [address] [id number] CBC W Auto Differential pane l (Bld)on 03-16-2025 Erythrocyte distribution width (RBC) [Ratio] 12.6 % Normal 11.5-14.5 [facility] Comment on above: Order Comment: The p reviously reported component Neutrophils % is no longer being reported.The previously reported component Lymphocytes % is no longer being reported.The previously reported component Monocytes % is no longer being reported.The previously reported component Eosinophils % is no longer being reported.The previously reported component Basophils % is no longer being reported.The previously reported component Absolute Neutrophils is no longer being reported.The previously reported component Absolute Lymphocytes is no longer being reported.The previously reported component Absolute Monocytes is no longer being reported.The previously reported component Absolute Eosinophils is no longer being reported.The previously reported component Absolute Basophils is no longer being reported. Performed By: #### 5 [id number] ####CALE PARKERTZER L ([id number])[facility] ([facility])[address] [place] [address] Hematocrit (Bld) [Volume fraction] 26.1 % Low 36.0-46.0 [facility] Comment on above: Order Comment: The p reviously reported component Neutrophils % is no longer being reported.The previously reported component Lymphocytes % is no longer being reported.The previously reported component Monocytes % is no longer being reported.The previously reported component Eosinophils % is no longer being reported.The previously reported component Basophils % is no longer being reported.The previously reported component Absolute Neutrophils is no longer being reported.The previously reported component Absolute Lymphocytes is no longer being reported.The previously reported component Absolute Monocytes is no longer being reported.The previously reported component Absolute Eosinophils is no longer being reported.The previously reported component Absolute Basophils is no longer being reported. Performed By: #### 5 7021-8 ####CALE Roth ([id number])[facility] ([facility])[address] [place] [address] Hemoglobin (Bld) [Mass/Vol] 8.9 g/dL Low 12.0-16.0 [facility] Comment on above: Order Comment: The p reviously reported component Neutrophils % is no longer being reported.The previously reported component Lymphocytes % is no longer being reported.The previously reported component Monocytes % is no longer being reported.The previously reported component Eosinophils % is no longer being reported.The previously reported component Basophils % is no longer being reported.The previously reported component Absolute Neutrophils is no longer being reported.The previously reported component Absolute Lymphocytes is no longer being reported.The previously reported component Absolute Monocytes is no longer being reported.The previously reported component Absolute Eosinophils is no longer being reported.The previously reported component Absolute Basophils is no longer being reported. Performed By: #### 5 7021-8 ####CALE Roth ([id number])[facility] ([facility])[id number] [place] [address] Immature granulocytes (Bld) [#/Vol] 0.23 x10*3/uL Normal 0.00-0.70 [facility] Comment on above: Order Comment: The p reviously reported component Neutrophils % is no longer being reported.The previously reported component Lymphocytes % is no longer being reported.The previously reported component Monocytes % is no longer being reported.The previously reported component Eosinophils % is no longer being reported.The previously reported component Basophils % is no longer being reported.The previously reported component Absolute Neutrophils is no longer being reported.The previously reported component Absolute Lymphocytes is no longer being reported.The previously reported component Absolute Monocytes is no longer being reported.The previously reported component Absolute Eosinophils is no longer being reported.The previously reported component Absolute Basophils is no longer being reported. Performed By: #### 5 7021-8 ####CALE Roth ([id number])[facility] ([facility])[address] [place] [address] Immature granulocytes/100 WBC (Bld) 2.5 % High 0.0-0.9 [facility] Comment on above: Order Comment: The p reviously reported component Neutrophils % is no longer being reported.The previously reported component Lymphocytes % is no longer being reported.The previously reported component Monocytes % is no longer being reported.The previously reported component Eosinophils % is no longer being reported.The previously reported component Basophils % is no longer being reported.The previously reported component Absolute Neutrophils is no longer being reported.The previously reported component Absolute Lymphocytes is no longer being reported.The previously reported component Absolute Monocytes is no longer being reported.The previously reported component Absolute Eosinophils is no longer being reported.The previously reported component Absolute Basophils is no longer being reported. Result Comment: Aleisha ture Granulocyte Count (IG) includes promyelocytes, myelocytes and metamyelocytes but does not include bands. Percent differential counts (%) should be interpreted in the context of the absolute cell counts (cells/UL). Performed By: #### 5 7021-8 ####CALE Roth ([id number])[facility] ([facility])[address] [place] [address] MCH (RBC) [Entitic mass] 30.2 pg Normal 26.0-34.0 [facility] Comment on above: Order Comment: The p reviously reported component Neutrophils % is no longer being reported.The previously reported component Lymphocytes % is no longer being reported.The previously reported component Monocytes % is no longer being reported.The previously reported component Eosinophils % is no longer being reported.The previously reported component Basophils % is no longer being reported.The previously reported component Absolute Neutrophils is no longer being reported.The previously reported component Absolute Lymphocytes is no longer being reported.The previously reported component Absolute Monocytes is no longer being reported.The previously reported component Absolute Eosinophils is no longer being reported.The previously reported component Absolute Basophils is no longer being reported. Performed By: #### 5 7021-8 ####CALE Roth ([id number])[facility] ([facility])[address] [place] [address] MCHC (RBC) [Mass/Vol] 34.1 g/dL Normal 32.0-36.0 [facility] Comment on above: Order Comment: The p reviously reported component Neutrophils % is no longer being reported.The previously reported component Lymphocytes % is no longer being reported.The previously reported component Monocytes % is no longer being reported.The previously reported component Eosinophils % is no longer being reported.The previously reported component Basophils % is no longer being reported.The previously reported component Absolute Neutrophils is no longer being reported.The previously reported component Absolute Lymphocytes is no longer being reported.The previously reported component Absolute Monocytes is no longer being reported.The previously reported component Absolute Eosinophils is no longer being reported.The previously reported component Absolute Basophils is no longer being reported. Performed By: #### 5 7021-8 ####CALE Roth ([id number])[facility] ([facility])[address] [place] [address] MCV (RBC) [Entitic vol] 89 fL Normal 80-100 [facility] Comment on above: Order Comment: The p reviously reported component Neutrophils % is no longer being reported.The previously reported component Lymphocytes % is no longer being reported.The previously reported component Monocytes % is no longer being reported.The previously reported component Eosinophils % is no longer being reported.The previously reported component Basophils % is no longer being reported.The previously reported component Absolute Neutrophils is no longer being reported.The previously reported component Absolute Lymphocytes is no longer being reported.The previously reported component Absolute Monocytes is no longer being reported.The previously reported component Absolute Eosinophils is no longer being reported.The previously reported component Absolute Basophils is no longer being reported. Performed By: #### 5 7021-8 ####CALE Roth ([id number])[facility] ([facility])[address] [place] [address] Nucleated RBC/100 WBC (Bld) [Ratio] 0.0 /100 WBCs Normal 0.0-0.0 [facility] Comment on above: Order Comment: The p reviously reported component Neutrophils % is no longer being reported.The previously reported component Lymphocytes % is no longer being reported.The previously reported component Monocytes % is no longer being reported.The previously reported component Eosinophils % is no longer being reported.The previously reported component Basophils % is no longer being reported.The previously reported component Absolute Neutrophils is no longer being reported.The previously reported component Absolute Lymphocytes is no longer being reported.The previously reported component Absolute Monocytes is no longer being reported.The previously reported component Absolute Eosinophils is no longer being reported.The previously reported component Absolute Basophils is no longer being reported. Performed By: #### 5 7021-8 ####CALE Roth ([id number])[facility] ([facility])[address] [place] [address] Platelets (Bld) [#/Vol] 219 x10*3/uL Normal 150-450 [facility] Comment on above: Order Comment: The p reviously reported component Neutrophils % is no longer being reported.The previously reported component Lymphocytes % is no longer being reported.The previously reported component Monocytes % is no longer being reported.The previously reported component Eosinophils % is no longer being reported.The previously reported component Basophils % is no longer being reported.The previously reported component Absolute Neutrophils is no longer being reported.The previously reported component Absolute Lymphocytes is no longer being reported.The previously reported component Absolute Monocytes is no longer being reported.The previously reported component Absolute Eosinophils is no longer being reported.The previously reported component Absolute Basophils is no longer being reported. Performed By: #### 5 7021-8 ####CALE Roth ([id number])[facility] ([facility])[address] [place] [address] RBC (Bld) [#/Vol] 2.95 x10*6/uL Low 4.00-5.20 [facility] Comment on above: Order Comment: The p reviously reported component Neutrophils % is no longer being reported.The previously reported component Lymphocytes % is no longer being reported.The previously reported component Monocytes % is no longer being reported.The previously reported component Eosinophils % is no longer being reported.The previously reported component Basophils % is no longer being reported.The previously reported component Absolute Neutrophils is no longer being reported.The previously reported component Absolute Lymphocytes is no longer being reported.The previously reported component Absolute Monocytes is no longer being reported.The previously reported component Absolute Eosinophils is no longer being reported.The previously reported component Absolute Basophils is no longer being reported. Performed By: #### 5 7021-8 ####CALE Roth ([id number])[facility] ([facility])[address] [place] [address] WBC (Bld) [#/Vol] 9.3 x10*3/uL Normal 4.4-11.3 [facility] Comment on above: Order Comment: The p reviously reported component Neutrophils % is no longer being reported.The previously reported component Lymphocytes % is no longer being reported.The previously reported component Monocytes % is no longer being reported.The previously reported component Eosinophils % is no longer being reported.The previously reported component Basophils % is no longer being reported.The previously reported component Absolute Neutrophils is no longer being reported.The previously reported component Absolute Lymphocytes is no longer being reported.The previously reported component Absolute Monocytes is no longer being reported.The previously reported component Absolute Eosinophils is no longer being reported.The previously reported component Absolute Basophils is no longer being reported. Performed By: #### 5 7021-8 ####CALE CAI L ([id number])[facility] ([facility])[address] [place] [address] CSF CELL COUNTon 03-16-2025 Appearance (CSF) Clear Normal Clear [facility] Comment on above: Order Comment: CSF c ell count reference ranges have not been established by [facility]. Based on published references. Performed By: #### C TCS4 ####CALE CAI L ([id number])[facility] ([facility])[address] [place] [address] Color (CSF) Straw Abnormal Colorless [facility] Comment on above: Order Comment: CSF c ell count reference ranges have not been established by [facility]. Based on published references. Performed By: #### C TCS4 ####CALE TOSCANOMOTZER L ([id number])[facility] ([facility])[id number] [place] [address] Color (Spun CSF) Colorless Normal [facility] Comment on above: Order Comment: CSF c ell count reference ranges have not been established by [facility]. Based on published references. Performed By: #### C TCS4 ####CALE TOSCANOMOTZER L ([id number])[facility] ([facility])[id number] [place] [address] RBC Auto (CSF) [#/Vol] 3000 /uL High 0-5 [facility] Comment on above: Order Comment: CSF c ell count reference ranges have not been established by [facility]. Based on published references. Performed By: #### Poncho TCS4 ####CALE Roth ([id number])[facility] ([facility])[address] [place] [address] Tube number Nom (CSF) [ID] Tube 1 Normal [facility] Comment on above: Order Comment: CSF c ell count reference ranges have not been established by [facility]. Based on published references. Performed By: #### Poncho TCS4 ####CALE Roth ([id number])[facility] ([facility])[address] [place] [address] 11804 WBC Auto (CSF) [#/Vol] <3 Normal 1-5 [facility] Comment on above: Order Comment: CSF c ell count reference ranges have not been established by [facility]. Based on published references. Performed By: #### Poncho TCS4 ####CALE Roth ([id number])[facility] ([facility])[address] [place] [address] 86386 CSF DIFFERENTIALon 5 Cells Counted Total (CSF) [#] 2 Normal [facility] Comment on above: Order Comment: CSF c ell differential reference ranges have not been established by [facility]. Based on published references. Performed By: #### D FCSF ####CALE Roth ([id number])[facility] ([facility])[address] [place] [address] Lymphocytes/100 WBC Manual cnt (CSF) 50 % Normal 28-96 [facility] Comment on above: Order Comment: CSF c ell differential reference ranges have not been established by [facility]. Based on published references. Performed By: #### D FCSF ####CALE Roth ([id number])[facility] ([facility])[address] [place] [address] Monocytes+Macrophage s/100 WBC Manual cnt (CSF) 50 % Normal 16-56 [facility] Comment on above: Order Comment: CSF c ell differential reference ranges have not been established by [facility]. Based on published references. Performed By: #### D FCSF ####CALE Roth ([id number])[facility] ([facility])[address] [place] [address] Segmented neutrophils/100 WBC Manual cnt (CSF) 0 % Normal 0-5 [facility] Comment on above: Order Comment: CSF c ell differential reference ranges have not been established by [facility]. Based on published references. Performed By: #### D FCSF ####CALE Roth ([id number])[facility] ([facility])[address] [place] [address] CT HEAD WO IV CONTRASTon CT HEAD WO IV CONTRAST Normal [facility] Calcium.ionizedon 03-16-2025 Calcium.ionized (Bld) [Moles/Vol] 1.15 mmol/L Normal 1.1-1.33 [facility] Comment on above: Result Comment: The performance characteristics of ionized calcium testedin heparinized plasma or serum have been validated [facility] where [facility].Testing on heparinized plasma or serum is not approved bythe FDA; however, such approval is not necessary. Performed By: #### 1 994-3 ####CALE Roth ([id number])[facility] ([facility])[address] [place] [address] Glucoseon 03-16-2025 Glucose (CSF) [Mass/Vol] 85 mg/dL High 40-70 [facility] Comment on above: Performed By: #### 2 342-4 ####CALE Roth ([id number])[facility] ([facility])[address] [place] [address] Glucose Test strip manual (B ld) [Mass/Vol]on 03-16-2025 Glucose [Mass/Vol] 124 mg/dL High 74-[address] [facility] Comment on above: Performed By: #### 2 341-6 ####CALE Roth ([id number])[facility] ([facility])[address] [place] [address] Glucose [Mass/Vol] 158 mg/dL High [address] [place] [address] Comment on above: Performed By: #### 2 341-6 ####CALE Roth ([id number])[facility] ([facility])[address] [place] [address] Glucose [Mass/Vol] 143 mg/dL High [address] [place] [address] Comment on above: Performed By: #### 2 341-6 ####CALE Roth ([id number])[facility] ([facility])[address] [place] [address] Glucose [Mass/Vol] 143 mg/dL High [address] [place] [address] Comment on above: Performed By: #### 2 341-6 ####CALE Roth ([id number])[facility] ([facility])[address] [place] [address] Glucose [Mass/Vol] 132 mg/dL High [address] [place] [address] Comment on above: Performed By: #### 2 341-6 ####CALE Roth ([id number])[facility] ([facility])[address] [place] [address] Glucose [Mass/Vol] 166 mg/dL High [address] [place] [address] Comment on above: Performed By: #### 2 341-6 ####CALE Roth ([id number])[facility] ([facility])[address] [place] [address] Magnesiumon 03-16-2025 Magnesium [Mass/Vol] 1.95 mg/dL Normal 1.60-2.40 [facility] Comment on above: Performed By: #### 1 9123-9 ####CALE Roth ([id number])[facility] ([facility])[address] [place] [address] Manual differential performe d Ql (Bld)on 03-16-2025 Band form neutrophils (Bld) [#/Vol] 0.00 x10*3/uL Normal 0.00-0.70 [facility] Comment on above: Performed By: #### 5 57-0 ####CALE Roth ([id number])[facility] ([facility])[address] [place] [address] Band form neutrophils/100 WBC (Bld) 0.0 % Normal 0.0-5.0 [facility] Comment on above: Performed By: #### 5 57-0 ####CALE Roth ([id number])[facility] ([facility])[address] [place] [address] Basophils (Bld) [#/Vol] 0.08 x10*3/uL Normal 0.00-0.10 [facility] Comment on above: Performed By: #### 5 57-0 ####CALE Roth ([id number])[facility] ([facility])[address] [place] [address] Basophils/100 WBC (Bld) 0.9 % Normal 0.0-2.0 [facility] Comment on above: Performed By: #### 5 57-0 ####CALE Roth ([id number])[facility] ([facility])[address] [place] [address] Blasts Manual cnt (Bld) [#/Vol] 0.00 x10*3/uL Normal 0.00-0.00 [facility] Comment on above: Performed By: #### 5 57-0 ####CALE Roth ([id number])[facility] ([facility])[address] [place] [address] Blasts/100 WBC (Bld) 0.0 % Normal 0.0-0.0 [facility] Comment on above: Performed By: #### 5 57-0 ####CALE Roth ([id number])[facility] ([facility])[address] [place] [address] Cells Counted Total (Bld) [#] 115 Normal [facility] Comment on above: Performed By: #### 5 57-0 ####CALE Roth ([id number])[facility] ([facility])[address] [place] [address] Eosinophils (Bld) [#/Vol] 0.00 x10*3/uL Normal 0.00-0.70 [facility] Comment on above: Performed By: #### 5 57-0 ####CALE Roth ([id number])[facility] ([facility])[address] [place] [address] Eosinophils/100 WBC (Bld) 0.0 % Normal 0.0-6.0 [facility] Comment on above: Performed By: #### 5 57-0 ####CALE Roth ([id number])[facility] ([facility])[address] [place] [address] Lymphocytes (Bld) [#/Vol] 0.24 x10*3/uL Low 1.20-4.80 [facility] Comment on above: Performed By: #### 5 57-0 ####CALE Roth ([id number])[facility] ([facility])[address] [place] [address] Lymphocytes/100 WBC (Bld) 2.6 % Normal 13.0-44.0 [facility] Comment on above: Performed By: #### 5 57-0 ####CALE Roth ([id number])[facility] ([facility])[address] [place] [address] Metamyelocytes (Bld) [#/Vol] 0.00 x10*3/uL Normal 0.00-0.00 [facility] Comment on above: Performed By: #### 5 57-0 ####CALE Roth ([id number])[facility] ([facility])[address] [place] [address] Metamyelocytes/100 WBC (Bld) 0.0 % Normal 0.0-0.0 [facility] Comment on above: Performed By: #### 5 57-0 ####CALE Roth ([id number])[facility] ([facility])[address] [place] [address] Monocytes (Bld) [#/Vol] 0.00 x10*3/uL Low 0.10-1.00 [facility] Comment on above: Performed By: #### 5 57-0 ####CALE Roth ([id number])[facility] ([facility])[address] [place] [address] Monocytes/100 WBC (Bld) 0.0 % Normal 2.0-10.0 [facility] Comment on above: Performed By: #### 5 0957-0 ####CALE Roth ([id number])[facility] ([facility])[address] [place] [address] Myelocytes (Bld) [#/Vol] 0.00 x10*3/uL Normal 0.00-0.00 [facility] Comment on above: Performed By: #### 5 0957-0 ####CALE Roth ([id number])[facility] ([facility])[address] [place] [address] Myelocytes/100 WBC (Bld) 0.0 % Normal 0.0-0.0 [facility] Comment on above: Performed By: #### 5 57-0 ####CALE Roth ([id number])[facility] ([facility])[address] [place] [address] Neutrophils (Bld) [#/Vol] 8.97 x10*3/uL High 1.20-7.70 [facility] Comment on above: Performed By: #### 5 0957-0 ####CALE Roth ([id number])[facility] ([facility])[address] [place] [address] Nucleated RBC/100 WBC (Bld) [Ratio] 0.0 % Normal 0.0-0.0 [facility] Comment on above: Performed By: #### 5 57-0 ####CALE Roth ([id number])[facility] ([facility])[address] [place] [address] Plasma cells (Bld) [#/Vol] 0.00 x10*3/uL Normal 0.00-0.00 [facility] Comment on above: Performed By: #### 5 57-0 ####CALE Roth ([id number])[facility] ([facility])[address] [place] [address] Plasma cells/100 WBC Manual cnt (Bld) 0.0 % Normal 0.00-0.00 [facility] Comment on above: Performed By: #### 5 57-0 ####CALE Roth ([id number])[facility] ([facility])[address] [place] [address] Promyelocytes (Bld) [#/Vol] 0.00 x10*3/uL Normal 0.00-0.00 [facility] Comment on above: Performed By: #### 5 57-0 ####CALE Roth ([id number])[facility] [facility] ([facility])[id number] [place] [address] 14880 Promyelocytes/100 WBC (Bld) 0.0 % Normal 0.0-0.0 [facility] Comment on above: Performed By: #### 5 57-0 ####CALE Roth ([id number])[facility] ([facility])[address] [place] [address] 38033 RBC morphology finding Nom (Bld) No significant RBC morphology present Normal [facility] Comment on above: Performed By: #### 5 57-0 ####CALE Roth ([id number])[facility] ([facility])[address] [place] [address] 11251 Segmented neutrophils (Bld) [#/Vol] 8.97 x10*3/uL High 1.20-7.00 [facility] Comment on above: Performed By: #### 5 57-0 ####CALE Roth ([id number])[facility] ([facility])[address] [place] [address] Segmented neutrophils/100 WBC (Bld) 96.5 % Normal 40.0-80.0 [facility] Comment on above: Result Comment: Perc ent differential counts (%) should be interpreted in the context of the absolute cell counts (cells/uL). Performed By: #### 5 0957-0 ####CALE Roth ([id number])[facility] ([facility])[address] [place] [address] Variant lymphocytes (Bld) [#/Vol] 0.00 x10*3/uL Normal 0.00-0.50 [facility] Comment on above: Performed By: #### 5 0957-0 ####CALE Roth ([id number])[facility] ([facility])[address] [place] [address] Variant lymphocytes/100 WBC (Bld) 0.0 % Normal 0.0-2.0 [facility] Comment on above: Performed By: #### 5 0957-0 ####CALE Roth ([id number])[facility] ([facility])[address] [place] [address] WBC other Manual cnt (Bld) [#/Vol] 0.00 x10*3/uL Normal [facility] Comment on above: Performed By: #### 5 0957-0 ####CALE Roth ([id number])[facility] ([facility])[address] [place] [address] WBC other/100 WBC (Bld) 0.0 % Normal [facility] Comment on above: Performed By: #### 5 0957-0 ####CALE Roth ([id number])[facility] ([facility])[address] [place] [address] Prealbuminon 03-16-2025 Prealbumin [Mass/Vol] 20.0 mg/dL Normal 18.0-40.0 [facility] Comment on above: Performed By: #### 1 4338-8 ####CALE Roth ([id number])[facility] ([facility])[address] [place] [address] Proteinon 03-16-2025 Protein (CSF) [Mass/Vol] 17 mg/dL Normal 15-45 [facility] Comment on above: Performed By: #### 2 880-3 ####CALE Roth ([id number])[facility] ([facility])[address] [place] [address] Renal function 2000 panelon 03-16-2025 Albumin BCP dye [Mass/Vol] 3.2 g/dL Low 3.4-5.0 [facility] Comment on above: Performed By: #### 2 4362-6 ####CALE Roth ([id number])[facility] ([facility])[address] [place] [address] Anion gap [Moles/Vol] 8 mmol/L Low 10-20 [facility] Comment on above: Performed By: #### 2 4362-6 ####CALE Roth ([id number])[facility] ([facility])[address] [place] [address] Calcium [Mass/Vol] 8.1 mg/dL Low 8.6-10.[address] [facility] Comment on above: Performed By: #### 2 4362-6 ####CALE Roth ([id number])[facility] ([facility])[address] [place] [address] Chloride [Moles/Vol] 113 mmol/L High 98-107 [facility] Comment on above: Performed By: #### 2 4362-6 ####CALE Roth ([id number])[facility] ([facility])[address] [place] [address] CO2 [Moles/Vol] 25 mmol/L Normal 21-32 [facility] Comment on above: Performed By: #### 2 4362-6 ####CALE Roth (87466)[facility] ([facility])[address]70 [place] [address] Creatinine [Mass/Vol] 0.42 mg/dL Low 0.50-1.05 [facility] Comment on above: Performed By: #### 2 4362-6 ####CALE CAI L ([id number])[facility] ([facility])[address] [place] [address] Glomerular filtration rate >90 Normal >60 [facility] Comment on above: Result Comment: Calc ulations of estimated GFR are performed using the 2020 CKD-EPI Study Refit equation without the race variable for the IDMS-Traceable creatinine methods.https://jasn.asnjournals.org/content/early//ASN .0671142187 Performed By: #### 2 4362-6 ####CALE Roth ([id number])[facility] ([facility])[address] [place] [address] Glucose [Mass/Vol] 138 mg/dL High 74-[address] [facility] Comment on above: Performed By: #### 2 4362-6 ####CALE CAI L ([id number])[facility] ([facility])[address] [place] [address] Phosphate [Mass/Vol] 3.6 mg/dL Normal 2.5-4.9 [facility] Comment on above: Performed By: #### 2 4362-6 ####CALE CAI L ([id number])[facility] ([facility])[address] [place] [address] Potassium [Moles/Vol] 3.4 mmol/L Low 3.5-5.3 [facility] Comment on above: Performed By: #### 2 4362-6 ####CALE CAI L ([id number])[facility] ([facility])[address] [place] [address] Sodium [Moles/Vol] 143 mmol/L Normal 136-[address] [facility] Comment on above: Performed By: #### 2 4362-6 ####CALE CAI L ([id number])[facility] ([facility])[address]405 [place] [address] Urea nitrogen [Mass/Vol] 9 mg/dL Normal 6-23 [facility] Comment on above: Performed By: #### 2 4362-6 ####CALE Roth ([id number])[facility] ([facility])[address] [place] [address] VASC US TRANSCRANIAL DOPPLER (TCD) COMPLETEon 03-16-2025 VASC US TRANSCRANIAL DOPPLER (TCD) COMPLETE Normal [facility] XR ABDOMEN 1 VIEWon 03-16-20 XR ABDOMEN [address] [facility] Comment on above: Order Comment: RN to release order via task on Brain when patient is ready for x-ray confirmation of NG tube placement. XR ABDOMEN [address] [facility] XR CHEST 1 VIEWon 03-16-2025 XR CHEST 1 VIEW Normal [facility] CBC W Auto Differential pane l (Bld)on 03-15-2025 Basophils (Bld) [#/Vol] 0.05 x10*3/uL Normal 0.00-0.10 [facility] Comment on above: Performed By: #### 5 7021-8 ####CALE Roth ([id number])[facility] ([facility])[address]61 [place] [address] Basophils/100 WBC (Bld) 0.5 % Normal 0.0-2.0 [facility] Comment on above: Performed By: #### 5 7021-8 ####CALE Roth ([id number])[facility] ([facility])[address]60 [place] [address] Eosinophils (Bld) [#/Vol] 0.23 x10*3/uL Normal 0.00-0.70 [facility] Comment on above: Performed By: #### 5 7021-8 ####CALE Roth ([id number])[facility] ([facility])[address]17 [place] [address] Eosinophils/100 WBC (Bld) 2.5 % Normal 0.0-6.0 [facility] Comment on above: Performed By: #### 5 7021-8 ####CALE Roth ([id number])[facility] ([facility])[address]221 [place] [address] Erythrocyte distribution width (RBC) [Ratio] 12.2 % Normal 11.5-14.5 [facility] Comment on above: Performed By: #### 5 7021-8 ####CALE Roth ([id number])[facility] ([facility])[address]604 [place] [address] Hematocrit (Bld) [Volume fraction] 29.6 % Low 36.0-46.0 [facility] Comment on above: Performed By: #### 5 7021-8 ####CALE Roth ([id number])[facility] ([facility])[address] [place] [address] 65726 Hemoglobin (Bld) [Mass/Vol] 10.1 g/dL Low 12.0-16.0 [facility] Comment on above: Performed By: #### 5 7021-8 ####CALE Roth ([id number])[facility] ([facility])[address] [place] [address] 14186 Immature granulocytes (Bld) [#/Vol] 0.36 x10*3/uL Normal 0.00-0.70 [facility] Comment on above: Performed By: #### 5 7021-8 ####CALE Roth ([id number])[facility] ([facility])[address]289 [place] [address] Immature granulocytes/100 WBC (Bld) 3.9 % High 0.0-0.9 [facility] Comment on above: Result Comment: Aleisha ture Granulocyte Count (IG) includes promyelocytes, myelocytes and metamyelocytes but does not include bands. Percent differential counts (%) should be interpreted in the context of the absolute cell counts (cells/UL). Performed By: #### 5 7021-8 ####CALE Roth ([id number])[facility] ([facility])[address]168 [place] [address] Lymphocytes (Bld) [#/Vol] 1.86 x10*3/uL Normal 1.20-4.80 [facility] Comment on above: Performed By: #### 5 7021-8 ####CALE Roth ([id number])[facility] ([facility])[address] [place] [address] 34283 Lymphocytes/100 WBC (Bld) 19.9 % Normal 13.0-44.0 [facility] Comment on above: Performed By: #### 5 7021-8 ####CALE Roth ([id number])[facility] ([facility])[address] [place] [address] 81043 MCH (RBC) [Entitic mass] 30.1 pg Normal 26.0-34.0 [facility] Comment on above: Performed By: #### 5 7021-8 ####CALE Roth ([id number])[facility] ([facility])[address] [place] [address] 27346 MCHC (RBC) [Mass/Vol] 34.1 g/dL Normal 32.0-36.0 [facility] Comment on above: Performed By: #### 5 7021-8 ####CALE Roth ([id number])[facility] ([facility])[address] [place] [address] 62398 MCV (RBC) [Entitic vol] 88 fL Normal 80-100 [facility] Comment on above: Performed By: #### 5 7021-8 ####CALE Roth ([id number])[facility] ([facility])[address] [place] [address] 87665 Monocytes (Bld) [#/Vol] 0.58 x10*3/uL Normal 0.10-1.00 [facility] Comment on above: Performed By: #### 5 7021-8 ####CALE Roth ([id number])[facility] ([facility])[address] [place] [address] 48849 Monocytes/100 WBC (Bld) 6.2 % Normal 2.0-10.0 [facility] Comment on above: Performed By: #### 5 7021-8 ####CALE Roth ([id number])[facility] ([facility])[address]356 [place] [address] Neutrophils (Bld) [#/Vol] 6.26 x10*3/uL Normal 1.20-7.70 [facility] Comment on above: Result Comment: Perc ent differential counts (%) should be interpreted in the context of the absolute cell counts (cells/uL). Performed By: #### 5 7021-8 ####CALE Roth ([id number])[facility] ([facility])[address]38 [place] [address] Neutrophils/100 WBC (Bld) 67.0 % Normal 40.0-80.0 [facility] Comment on above: Performed By: #### 5 7021-8 ####CALE Roth ([id number])[facility] ([facility])[address]67 [place] [address] Nucleated RBC/100 WBC (Bld) [Ratio] 0.0 /100 WBCs Normal 0.0-0.0 [facility] Comment on above: Performed By: #### 5 7021-8 ####CALE Roth (77301)[facility] ([facility])[address]31 [place] [address] Platelets (Bld) [#/Vol] 237 x10*3/uL Normal 150-450 [facility] Comment on above: Performed By: #### 5 7021-8 ####CALE Roth ([id number])[facility] ([facility])[address]61 [place] [address] RBC (Bld) [#/Vol] 3.35 x10*6/uL Low 4.00-5.20 [facility] Comment on above: Performed By: #### 5 7021-8 ####CALE Roth ([id number])[facility] ([facility])[address]95 [place] [address] WBC (Bld) [#/Vol] 9.3 x10*3/uL Normal 4.4-11.3 [facility] Comment on above: Performed By: #### 5 7021-8 ####CALE Roth ([id number])[facility] ([facility])[address] [place] [address] WO IV CONTRASTon CT HEAD WO IV CONTRAST Normal [facility] Calcium.ionizedon 03-15-2025 Calcium.ionized (Bld) [Moles/Vol] 1.21 mmol/L Normal 1.1-1.33 [facility] Comment on above: Result Comment: The performance characteristics of ionized calcium testedin heparinized plasma or serum have been validated by [facility] site where testing is performed.Testing on heparinized plasma or serum is not approved [facility]; however, such approval is not necessary. Performed By: #### 1 994-3 ####CALE Roth ([id number])[facility] ([facility])[address] [place] [address] 21779 Carboxyhemoglobin (BldA) [Ma ss fraction]on 03-15-2025 Deoxyhemoglobin (BldA) [Mass fraction] 0.5 % Normal 0.0-5.0 [facility] Comment on above: Performed By: #### 2 030-5 ####CALE Roth ([id number])[facility] ([facility])[address] [place] [address] 96768 Methemoglobin (BldA) [Mass fraction] 1.0 % Normal 0.0-1.5 [facility] Comment on above: Performed By: #### 2 030-5 ####CALE Roth ([id number])[facility] ([facility])[address] [place] [address] 91162 Carboxyhemoglobin/Hemoglobin .totalon 03-15-2025 Carboxyhemoglobin (BldA) [Mass fraction] 0.5 % Normal [facility] Comment on above: Result Comment: Ref ValuesNon-Smokers 0.5-1.5%Smokers 0.5-10.0% Performed By: #### 2 030-5 ####CALE Roth ([id number])[facility] ([facility])[address] [place] [address] 62571 Gason 03-15-2025 Hemoglobin (Bld) [Mass/Vol] 11.2 g/dL Low 12.0-16.0 [facility] Comment on above: Performed By: #### 9 3685-6 ####CALE Roth ([id number])[facility] ([facility])[address] [place] [address] 15382 Performed By: #### 2 030-5 ####CALE Roth ([id number])[facility] ([facility])[address] [place] [address] 45436 Oxyhemoglobin (BldA) [Mass fraction] 98.0 % Normal 94.0-98.0 [facility] Comment on above: Performed By: #### 9 3685-6 ####CALE Roth ([id number])[facility] ([facility])[address] [place] [address] 20857 Performed By: #### 2 030-5 ####CALE Roth ([id number])[facility] ([facility])[address] [place] [address] 78758 Gas and Carbon monoxide and Electrolytes panel (BldA)on 03-15-2025 Anion gap 4 (BldA) [Moles/Vol] 7 mmo/L Low 10-25 [facility] Comment on above: Performed By: #### 9 3685-6 ####CALE Roth ([id number])[facility] ([facility])[address] [place] [address] 74348 Base excess Calc (Bld) [Moles/Vol] -1.9000 mmol/L Normal -2.0-3.0 [facility] Comment on above: Performed By: #### 9 3685-6 ####CALE Roth (50951)[facility] ([facility])[address] [place] [address] 00787 Calcium.ionized (BldA) [Moles/Vol] 1.16 mmol/L Normal 1.10-1.33 [facility] Comment on above: Performed By: #### 9 3685-6 ####CALE Roth ([id number])[facility] ([facility])[address] [place] [address] Chloride (BldA) [Moles/Vol] 119 mmol/L High 98-107 [facility] Comment on above: Performed By: #### 9 3685-6 ####CALE Roth ([id number])[facility])[address] [place] [address] CO2 (Bld) [Partial pressure] 30 mm Hg Low 38-42 [facility] Comment on above: Performed By: #### 9 3685-6 ####CALE Roth ([id number])[facility] ([facility])[address] [place] [address] 50117 Glucose [Mass/Vol] 149 mg/dL High 74-[address] [facility] Comment on above: Performed By: #### 9 3685-6 ####CALE Roth ([id number])[facility] ([facility])[address] [place] [address] 28662 HCO3 (Bld) [Moles/Vol] 21.3 mmol/L Low 22.0-26.0 [facility] Comment on above: Performed By: #### 9 3685-6 ####CALE Roth ([id number])[facility] ([facility])[address] [place] [address] 14873 Hematocrit Est (Bld) [Volume fraction] 30.0 % Low 36.0-46.0 [facility] Comment on above: Performed By: #### 9 3685-6 ####CALE CAI L ([id number])[facility] ([facility])[address] [place] [address] 83167 Hemoglobin (Bld) [Mass/Vol] 10.0 g/dL Low 12.0-16.0 [facility] Comment on above: Performed By: #### 9 3685-6 ####CALE CAI L ([id number])[facility] ([facility])[address] [place] [address] 65793 Inhaled oxygen concentration 53 % Normal [facility] Comment on above: Performed By: #### 9 3685-6 ####CALE Roth ([id number])[facility] ([facility])[address] [place] [address] 45747 Lactate (BldA) [Moles/Vol] 1.0 mmol/L Normal 0.4-2.0 [facility] Comment on above: Performed By: #### 9 3685-6 ####CALE Roth ([id number])[facility] ([facility])[address] [place] [address] 34628 Oxygen (Bld) [Partial pressure] 262 mm Hg High 85-95 [facility] Comment on above: Performed By: #### 9 3685-6 ####CALE Roth ([id number])[facility] ([facility])[address] [place] [address] 66103 Oxyhemoglobin (BldA) [Mass fraction] 97.5 % Normal 94.0-98.0 [facility] Comment on above: Performed By: #### 9 0205-6 ####CALE Roth ([id number])[facility] ([facility])[address] [place] [address] 53638 pH (Bld) 7.46 [pH] High 7.38-7.42 [facility] Comment on above: Performed By: #### 9 5665-6 ####CALE Roth ([id number])[facility] ([facility])[address] [place] [address] 71717 Potassium (BldA) [Moles/Vol] 3.5 mmol/L Normal 3.5-5.3 [facility] Comment on above: Performed By: #### 9 1265-6 ####CALE Roth ([id number])[facility] ([facility])[address] [place] [address] 00759 Sodium (BldA) [Moles/Vol] 144 mmol/L Normal 136-145 [facility] Comment on above: Performed By: #### 9 6685-6 ####CALE Roth ([id number])[facility] ([facility])[address]312 [place] [address] Anion gap 4 (BldA) [Moles/Vol] 11 mmo/L Normal 10-25 [facility] Comment on above: Performed By: #### 9 3685-6 ####CALE CAI L ([id number])[facility] ([facility])[address]205 [place] [address] Base excess Calc (Bld) [Moles/Vol] -2.3000 mmol/L Low -2.0-3.0 [facility] Comment on above: Performed By: #### 9 3685-6 ####CALE Roth ([id number])[facility] ([facility])[address]01 [place] [address] Calcium.ionized (BldA) [Moles/Vol] 1.16 mmol/L Normal 1.10-1.33 [facility] Comment on above: Performed By: #### 9 3685-6 ####CALE Roth ([id number])[facility] ([facility])[address]371 [place] [address] Chloride (BldA) [Moles/Vol] 113 mmol/L High 98-107 [facility] Comment on above: Performed By: #### 9 3685-6 ####CALE CAI L ([id number])[facility] ([facility])[address] [place] [address] CO2 (Bld) [Partial pressure] 29 mm Hg Low 38-42 [facility] Comment on above: Performed By: #### 9 3685-6 ####CALE CAI L ([id number])[facility] ([facility])[address]87 [place] [address] Glucose [Mass/Vol] 211 mg/dL High 74-[address] [facility] Comment on above: Performed By: #### 9 3685-6 ####CALE CAI L ([id number])[facility] ([facility])[address]803 [place] [address] HCO3 (Bld) [Moles/Vol] 20.6 mmol/L Low 22.0-26.0 [facility] Comment on above: Performed By: #### 9 3685-6 ####CALE Roth ([id number])[facility] ([facility])[address] [place] [address] Hematocrit Est (Bld) [Volume fraction] 34.0 % Low 36.0-46.0 [facility] Comment on above: Performed By: #### 9 3685-6 ####CALE Roth ([id number])[facility] ([facility])[address]39 [place] [address] Inhaled oxygen concentration 46 % Normal [facility] Comment on above: Performed By: #### 9 3685-6 ####CALE Roth ([id number])[facility] ([facility])[address] [place] [address] 34999 Lactate (BldA) [Moles/Vol] 0.7 mmol/L Normal 0.4-2.0 [facility] Comment on above: Performed By: #### 9 8725-6 ####CALE Roth ([id number])[facility] ([facility])[address] [place] [address] Oxygen (Bld) [Partial pressure] 249 mm Hg High 85-95 [facility] Comment on above: Performed By: #### 9 5975-6 ####CALE Roth ([id number])[facility] ([facility])[address] [place] [address] pH (Bld) 7.46 [pH] High 7.38-7.42 [facility] Comment on above: Performed By: #### 9 5655-6 ####CALE Roth ([id number])[facility] ([facility])[id number] [place] [address] Potassium (BldA) [Moles/Vol] 3.7 mmol/L Normal 3.5-5.3 [facility] Comment on above: Performed By: #### 9 3685-6 ####CALE Roth ([id number])[facility] ([facility])[address] [place] [address] Sodium (BldA) [Moles/Vol] 141 mmol/L Normal 136-145 [facility] Comment on above: Performed By: #### 9 3685-6 ####CALE Roth ([id number])[facility] ([facility])[id number] [place] [address] Anion gap 4 (BldA) [Moles/Vol] 14 mmo/L Normal 10-25 [facility] Comment on above: Performed By: #### 9 3685-6 ####CALE Roth ([id number])[facility] ([facility])[id number] [place] [address] Base excess Calc (Bld) [Moles/Vol] -2.5000 mmol/L Low -2.0-3.0 [facility] Comment on above: Performed By: #### 9 3685-6 ####CALE Roth ([id number])[facility] ([facility])[id number] [place] [address] Calcium.ionized (BldA) [Moles/Vol] 1.19 mmol/L Normal 1.10-1.33 [facility] Comment on above: Performed By: #### 9 3685-6 ####CALE Roth ([id number])[facility] ([facility])[address] [place] [address] Chloride (BldA) [Moles/Vol] 111 mmol/L High 98-107 [facility] Comment on above: Performed By: #### 9 3685-6 ####CALE Roth ([id number])[facility] ([facility])[address] [place] [address] 29486 CO2 (Bld) [Partial pressure] 31 mm Hg Low 38-42 [facility] Comment on above: Performed By: #### 9 3685-6 ####CALE Roth ([id number])[facility] ([facility])[address] [place] [address] Glucose [Mass/Vol] 214 mg/dL High 74-[address] [facility] Comment on above: Performed By: #### 9 3685-6 ####CALE Roth ([id number])[facility] ([facility])[address] [place] [address] HCO3 (Bld) [Moles/Vol] 21.1 mmol/L Low 22.0-26.0 [facility] Comment on above: Performed By: #### 9 3685-6 ####CALE Roth ([id number])[facility] ([facility])[address] [place] [address] 39155 Hematocrit Est (Bld) [Volume fraction] 28.0 % Low 36.0-46.0 [facility] Comment on above: Performed By: #### 9 4675-6 ####CALE Roth ([id number])[facility] ([facility])[address] [place] [address] 59639 Hemoglobin (Bld) [Mass/Vol] 9.3 g/dL Low 12.0-16.0 [facility] Comment on above: Performed By: #### 9 6635-6 ####CALE Roth ([id number])[facility] ([facility])[address] [place] [address] Inhaled oxygen concentration 48 % Normal [facility] Comment on above: Performed By: #### 9 7225-6 ####CALE Roth ([id number])[facility] ([facility])[address] [place] [address] Lactate (BldA) [Moles/Vol] 1.1 mmol/L Normal 0.4-2.0 [facility] Comment on above: Performed By: #### 9 3685-6 ####CALE Roth ([id number])[facility] ([facility])[address]21 [place] [address] Oxygen (Bld) [Partial pressure] 192 mm Hg High 85-95 [facility] Comment on above: Performed By: #### 9 3685-6 ####CALE Roth ([id number])[facility] ([facility])[address] [place] [address] 78663 Oxyhemoglobin (BldA) [Mass fraction] 98.4 % High 94.0-98.0 [facility] Comment on above: Performed By: #### 9 3685-6 ####CALE Roth ([id number])[facility] ([facility])[address] [place] [address] 92908 pH (Bld) 7.44 [pH] High 7.38-7.42 [facility] Comment on above: Performed By: #### 9 3685-6 ####CALE Roth ([id number])[facility] ([facility])[address] [place] [address] 12015 Potassium (BldA) [Moles/Vol] 3.8 mmol/L Normal 3.5-5.3 [facility] Comment on above: Performed By: #### 9 3685-6 ####CALE Roth ([id number])[facility] ([facility])[address] [place] [address] 63046 Sodium (BldA) [Moles/Vol] 142 mmol/L Normal 136-145 [facility] Comment on above: Performed By: #### 9 3685-6 ####CALE Roth ([id number])[facility] ([facility])[address] [place] [address] 48963 Anion gap 4 (BldA) [Moles/Vol] 10 mmo/L Normal 10-25 [facility] Comment on above: Performed By: #### 9 3685-6 ####CALE Roth ([id number])[facility] ([facility])[address] [place] [address] 88079 Base excess Calc (Bld) [Moles/Vol] 1.3 mmol/L Normal -2.0-3.0 [facility] Comment on above: Performed By: #### 9 7345-6 ####CALE Roth ([id number])[facility] ([facility])[address]96 [place] [address] Calcium.ionized (BldA) [Moles/Vol] 1.23 mmol/L Normal 1.10-1.33 [facility] Comment on above: Performed By: #### 9 3685-6 ####CALE CAI L ([id number])[facility] ([facility])[address] [place] [address] Chloride (BldA) [Moles/Vol] 111 mmol/L High 98-107 [facility] Comment on above: Performed By: #### 9 3685-6 ####CALE CAI L ([id number])[facility] ([facility])[address] [place] [address] 18309 CO2 (Bld) [Partial pressure] 34 mm Hg Low 38-42 [facility] Comment on above: Performed By: #### 9 3685-6 ####CALE Roth ([id number])[facility] ([facility])[address] [place] [address] 12859 Glucose [Mass/Vol] 141 mg/dL High 74-[address] [facility] Comment on above: Performed By: #### 9 3685-6 ####CALE CAI L ([id number])[facility] ([facility])[address] [place] [address] 34884 HCO3 (Bld) [Moles/Vol] 24.7 mmol/L Normal 22.0-26.0 [facility] Comment on above: Performed By: #### 9 3685-6 ####CALE CAI L ([id number])[facility] ([facility])[address]37 [place] [address] Hematocrit Est (Bld) [Volume fraction] 31.0 % Low 36.0-46.0 [facility] Comment on above: Performed By: #### 9 3685-6 ####CALE CAI L ([id number])[facility] ([facility])[address] [place] [address] 19193 Hemoglobin (Bld) [Mass/Vol] 10.2 g/dL Low 12.0-16.0 [facility] Comment on above: Performed By: #### 9 3685-6 ####CALE Roth ([id number])[facility] ([facility])[address]153 [place] [address] Inhaled oxygen concentration 97 % Normal [facility] Comment on above: Performed By: #### 9 3685-6 ####CALE Roth ([id number])[facility] ([facility])[address]10 [place] [address] Lactate (BldA) [Moles/Vol] 0.6 mmol/L Normal 0.4-2.0 [facility] Comment on above: Performed By: #### 9 3685-6 ####CALE Roth ([id number])[facility] ([facility])[address] [place] [address] 89764 Oxygen (Bld) [Partial pressure] 477 mm Hg High 85-95 [facility] Comment on above: Performed By: #### 9 3685-6 ####CALE Roth ([id number])[facility] ([facility])[address] [place] [address] 35208 Oxyhemoglobin (BldA) [Mass fraction] 98.5 % High 94.0-98.0 [facility] Comment on above: Performed By: #### 9 3685-6 ####CALE Roth ([id number])[facility] ([facility])[address]335 [place] [address] pH (Bld) 7.47 [pH] High 7.38-7.42 [facility] Comment on above: Performed By: #### 9 3685-6 ####CALE Roth ([id number])[facility] ([facility])[address] [place] [address] 22616 Potassium (BldA) [Moles/Vol] 3.5 mmol/L Normal 3.5-5.3 [facility] Comment on above: Performed By: #### 9 3685-6 ####CALE Roth ([id number])[facility] ([facility])[address] [place] [address] 84360 Sodium (BldA) [Moles/Vol] 142 mmol/L Normal 136-145 [facility] Comment on above: Performed By: #### 9 3685-6 ####CALE Roth ([id number])[facility] ([facility])[address] [place] [address] 84572 Anion gap 4 (BldA) [Moles/Vol] 13 mmo/L Normal 10-25 [facility] Comment on above: Performed By: #### 9 3685-6 ####CALE Roth ([id number])[facility] ([facility])[address] [place] [address] 72617 Base excess Calc (Bld) [Moles/Vol] 0.8 mmol/L Normal -2.0-3.0 [facility] Comment on above: Performed By: #### 9 8135-6 ####CALE Roth (69354)[facility] ([facility])[address] [place] [address] 75909 Calcium.ionized (BldA) [Moles/Vol] 1.24 mmol/L Normal 1.10-1.33 [facility] Comment on above: Performed By: #### 9 3685-6 ####CALE Roth ([id number])[facility] ([facility])[address] [place] [address] 43854 Chloride (BldA) [Moles/Vol] 107 mmol/L Normal 98-107 [facility] Comment on above: Performed By: #### 9 3685-6 ####CALE Roth ([id number])[facility] ([facility])[address] [place] [address] 00682 CO2 (Bld) [Partial pressure] 36 mm Hg Low 38-42 [facility] Comment on above: Performed By: #### 9 3685-6 ####CALE Roth (75231)[facility] ([facility])[address]41 [place] [address] Glucose [Mass/Vol] 125 mg/dL High 74-[address] [facility] Comment on above: Performed By: #### 9 3685-6 ####CALE Roth ([id number])[facility] ([facility])[address]59 [place] [address] HCO3 (Bld) [Moles/Vol] 25.0 mmol/L Normal 22.0-26.0 [facility] Comment on above: Performed By: #### 9 3685-6 ####CALE Roth ([id number])[facility] ([facility])[address]165 [place] [address] Hematocrit Est (Bld) [Volume fraction] 12.0 % Low 36.0-46.0 [facility] Comment on above: Performed By: #### 9 3685-6 ####CALE Roth (86754)[facility] ([facility])[address]861 [place] [address] Hemoglobin (Bld) [Mass/Vol] 3.9 g/dL Critically low 12.0-16.0 [facility] Comment on above: Performed By: #### 9 3685-6 ####CALE Roth ([id number])[facility] ([facility])[address]70 [place] [address] Inhaled oxygen concentration 97 % Normal [facility] Comment on above: Performed By: #### 9 3685-6 ####CALE Roth ([id number])[facility] ([facility])[address]69 [place] [address] Lactate (BldA) [Moles/Vol] 0.8 mmol/L Normal 0.4-2.0 [facility] Comment on above: Performed By: #### 9 3685-6 ####CALE Roth (88863)[facility] ([facility])[address]687 [place] [address] Oxygen (Bld) [Partial pressure] 437 mm Hg High 85-95 [facility] Comment on above: Performed By: #### 9 3685-6 ####CALE Roth ([id number])[facility] ([facility])[address]851 [place] [address] Oxyhemoglobin (BldA) [Mass fraction] 96.9 % Normal 94.0-98.0 [facility] Comment on above: Performed By: #### 9 3685-6 ####CALE Roth ([id number])[facility] ([facility])[address]76 [place] [address] pH (Bld) 7.45 [pH] High 7.38-7.42 [facility] Comment on above: Performed By: #### 9 3685-6 ####CALE Roth ([id number])[facility] ([facility])[address]1927 [place] [address] Potassium (BldA) [Moles/Vol] 3.7 mmol/L Normal 3.5-5.3 [facility] Comment on above: Performed By: #### 9 3685-6 ####CALE Roth (60501)[facility] ([facility])47452 [place] [address] Sodium (BldA) [Moles/Vol] 141 mmol/L Normal 136-145 [facility] Comment on above: Performed By: #### 9 3685-6 ####CALE Roth ([id number])[facility] ([facility])23599 [place] [address] Glucose Test strip manual (B ld) [Mass/Vol]on 03-15-2025 Glucose [Mass/Vol] 130 mg/dL High 74-[address] [facility] Comment on above: Performed By: #### 2 341-6 ####CALE Roth ([id number])[facility] ([facility])43547 [place] [address] Glucose [Mass/Vol] 114 mg/dL High 74-[address] [facility] Comment on above: Performed By: #### 2 341-6 ####CALE Roth ([id number])[facility] ([facility])[address]48 [place] [address] Glucose [Mass/Vol] 130 mg/dL High 74-[address] [facility] Comment on above: Performed By: #### 2 341-6 ####CALE Roth ([id number])[facility] ([facility])[address]77 [place] [address] IR ANGIOGRAM CEREBRAL BILATE RALon 03-15-2025 IR ANGIOGRAM CEREBRAL BILATERAL Normal [facility] Magnesiumon 03-15-2025 Magnesium [Mass/Vol] 2.06 mg/dL Normal 1.60-2.40 [facility] Comment on above: Performed By: #### 1 9123-9 ####CALE Roth ([id number])[facility] ([facility])[address]73 [place] [address] Renal function 2000 panelon 03-15-2025 Albumin BCP dye [Mass/Vol] 3.7 g/dL Normal 3.4-5.0 [facility] Comment on above: Performed By: #### 2 4362-6 ####CALE Roth ([id number])[facility] ([facility])[address]40 [place] [address] Anion gap [Moles/Vol] 11 mmol/L Normal 10-20 [facility] Comment on above: Performed By: #### 2 4362-6 ####CALE Roth ([id number])[facility] ([facility])[address]853 [place] [address] Calcium [Mass/Vol] 8.6 mg/dL Normal 8.6-10.[address] [facility] Comment on above: Performed By: #### 2 4362-6 ####CALE Roth ([id number])[facility] ([facility])83840 [place] [address] Chloride [Moles/Vol] 107 mmol/L Normal 98-107 [facility] Comment on above: Performed By: #### 2 4362-6 ####CALE Roth ([id number])[facility] ([facility])[address] [place] [address] CO2 [Moles/Vol] 28 mmol/L Normal 21-32 [facility] Comment on above: Performed By: #### 2 4362-6 ####CALE Roth ([id number])[facility] ([facility])[address] [place] [address] Creatinine [Mass/Vol] 0.45 mg/dL Low 0.50-1.05 [facility] Comment on above: Performed By: #### 2 4362-6 ####CALE Roth ([id number])[facility] ([facility])[address]31 [place] [address] Glomerular filtration rate >90 Normal >60 [facility] Comment on above: Result Comment: Calc ulations of estimated GFR are performed using the 2020 CKD-EPI Study Refit equation without the race variable for the IDMS-Traceable creatinine methods.https://jasn.asnjournals.org/content/early//ASN .8109832519 Performed By: #### 2 4362-6 ####CALE Roth ([id number])[facility] ([facility])[address]47 [place] [address] Glucose [Mass/Vol] 123 mg/dL High 74-[address] [facility] Comment on above: Performed By: #### 2 4362-6 ####CALE Roth ([id number])[facility] ([facility])12238 [place] [address] Phosphate [Mass/Vol] 3.0 mg/dL Normal 2.5-4.9 [facility] Comment on above: Performed By: #### 2 4362-6 ####CALE Roth (95945)[facility] ([facility])[address] [place] [address] Potassium [Moles/Vol] 3.6 mmol/L Normal 3.5-5.3 [facility] Comment on above: Performed By: #### 2 4362-6 ####CALE Roth ([id number])[facility] ([facility])[address]75 [place] [address] Sodium [Moles/Vol] 142 mmol/L Normal 136-[address] [facility] Comment on above: Performed By: #### 2 4362-6 ####CALE Roth ([id number])[facility] ([facility])36553 [place] [address] Urea nitrogen [Mass/Vol] 14 mg/dL Normal 6-23 [facility] Comment on above: Performed By: #### 2 4362-6 ####CALE Roth ([id number])[facility] ([facility])[address] [place] [address] 84964 Sodiumon 03-15-2025 Sodium [Moles/Vol] 143 mmol/L Normal 136-[address] [facility] Comment on above: Performed By: #### 2 951-2 ####CALE Roth ([id number])[facility] ([facility])[address]607 [place] [address] Surgical pathology studyon 0 03-15-2025 Surgical pathology study [facility] Comment on above: Order Comment: Pre-o p diagnosis:AVM (arteriovenous malformation) ([facility]) [Q27.30] Blood type and Indirect anti body screen panel (Bld)on 03-14-2025 ABO group Nom (Bld) B Normal [facility] Comment on above: Performed By: #### 3 4532-2 ####CALE Roth ([id number])[facility] ([facility])[address] [place] [address] Blood group antibody screen Ql Negative [facility] Comment on above: Performed By: #### 3 4532-2 ####CALE Roth ([id number])[facility] [place] [address] D Ag Ql (Bld) Positive [facility] Comment on above: Performed By: #### 3 4532-2 ####CALE Roth ([id number])[facility] ([facility])[address] [place] [address] CBC panel Auto (Bld)on 03-14 Erythrocyte distribution width (RBC) [Ratio] 11.7 % Normal 11.5-14.5 [facility] Comment on above: Performed By: #### 5 8410-2 ####CALE Roth ([id number])[facility] ([facility])38068 [place] [address] Hematocrit (Bld) [Volume fraction] 31.2 % Low 36.0-46.0 [facility] Comment on above: Performed By: #### 5 8410-2 ####CALE Roth ([id number])[facility] ([facility])[address] [place] [address] 89861 Hemoglobin (Bld) [Mass/Vol] 11.0 g/dL Low 12.0-16.0 [facility] Comment on above: Performed By: #### 5 8410-2 ####CALE Roth ([id number])[facility] ([facility])[address] [place] [address] 08549 MCH (RBC) [Entitic mass] 29.6 pg Normal 26.0-34.0 [facility] Comment on above: Performed By: #### 5 8410-2 ####CALE Roth ([id number])[facility] ([facility])[address] [place] [address] 95994 MCHC (RBC) [Mass/Vol] 35.3 g/dL Normal 32.0-36.0 [facility] Comment on above: Performed By: #### 5 8410-2 ####CALE Roth ([id number])[facility] ([facility])[address] [place] [address] 96271 MCV (RBC) [Entitic vol] 84 fL Normal 80-100 [facility] Comment on above: Performed By: #### 5 8410-2 ####CALE Roth ([id number])[facility] ([facility])[address]21 [place] [address] Nucleated RBC/100 WBC (Bld) [Ratio] 0.0 /100 WBCs Normal 0.0-0.0 [facility] Comment on above: Performed By: #### 5 8410-2 ####CALE Roth ([id number])[facility] ([facility])[address]143 [place] [address] Platelets (Bld) [#/Vol] 262 x10*3/uL Normal 150-450 [facility] Comment on above: Performed By: #### 5 8410-2 ####CALE Roth ([id number])[facility] ([facility])17035 [place] [address] RBC (Bld) [#/Vol] 3.71 x10*6/uL Low 4.00-5.20 [facility] Comment on above: Performed By: #### 5 8410-2 ####CALE Roth ([id number])[facility] ([facility])[address]4762 [place] [address] WBC (Bld) [#/Vol] 11.3 x10*3/uL Normal 4.4-11.3 [facility] Comment on above: Performed By: #### 5 8410-2 ####CALE Roth ([id number])[facility] ([facility])[address] [place] [address] ANGIO HEAD AND NECK W AND WO IV CONTRASTon 03-14-2025 CT ANGIO HEAD AND NECK W AND WO IV CONTRAST Normal [facility] CT HEAD WO IV CONTRASTon CT HEAD WO IV CONTRAST Normal [facility] Calcium.ionizedon 03-14-2025 Calcium.ionized (Bld) [Moles/Vol] 1.19 mmol/L Normal 1.1-1.33 [facility] Comment on above: Result Comment: The performance characteristics of ionized calcium testedin heparinized plasma or serum have been validated [facility] where testing is performed.Testing on heparinized plasma or serum is not approved bythe FDA; however, such approval is not necessary. Performed By: #### 1 994-3 ####CALE Roth ([id number])[facility] ([facility])[address]37 [place] [address] Choriogonadotropin.beta subu niton 03-14-2025 HCG.beta subunit Qn m[IU]/mL Normal <5 [facility] Comment on above: Order Comment: Total HCG measurement is performed using the Siemens [employer]ell[employer] immunoassay which detects intact HCG and free beta HCG subunit. This test is not indicated for use as a tumor marker. HCG testing is performed using a different test methodology at [facility] than other legacy [facility]. Direct result comparison should only be made within the same method. Performed By: #### 2 1198-7 ####CALE Roth ([id number])[facility] ([facility])[address]33 [place] [address] Glucose Test strip manual (B ld) [Mass/Vol]on 03-14-2025 Glucose [Mass/Vol] 133 mg/dL High [address] [place] [address] Comment on above: Performed By: #### 2 341-6 ####CALE Roth ([id number])[facility] ([facility])[address] [place] [address] 93630 Glucose [Mass/Vol] 100 mg/dL High [address] [place] [address] Comment on above: Performed By: #### 2 341-6 ####CALE Roth ([id number])[facility] ([facility])[address]19 [place] [address] Glucose [Mass/Vol] 135 mg/dL High [address] [place] [address] Comment on above: Performed By: #### 2 341-6 ####CALE Roth ([id number])[facility] ([facility])[address]69 [place] [address] Glucose [Mass/Vol] 133 mg/dL High [address] [place] [address] Comment on above: Performed By: #### 2 341-6 ####CALE Roth ([id number])[facility] ([facility])[address] [place] [address] Glucose [Mass/Vol] 154 mg/dL High 74-[address] [facility] Comment on above: Performed By: #### 2 341-6 ####CALE Roth ([id number])[facility] ([facility])[address] [place] [address] MR BRAIN W AND WO IV CONTRAS Ton 03-14-2025 MR BRAIN W AND WO IV CONTRAST Normal [facility] Comment on above: Order Comment: Only need diffusion, FLAIR, T1 pre and T1 post dale Magnesiumon 03-14-2025 Magnesium [Mass/Vol] 2.24 mg/dL Normal 1.60-2.40 [facility] Comment on above: Performed By: #### 1 9123-9 ####CALE Roth ([id number])[facility] ([facility])[id number] [place] [address] PT and aPTT panel Coag (PPP) on 03-14-2025 aPTT Coag (PPP) [Time] 23 s Low 26-36 [facility] Comment on above: Order Comment: The A PTT is no longer used for monitoring Unfractionated Heparin Therapy. For monitoring Heparin Therapy, use the Heparin Assay. Performed By: #### 3 4529-8 ####CALE Roth ([id number])[facility] ([facility])[id number] [place] [id number] INR Coag (PPP) [Relative time] 1.2 High 0.9-1.1 [facility] Comment on above: Order Comment: The A PTT is no longer used for monitoring Unfractionated Heparin Therapy. For monitoring Heparin Therapy, use the Heparin Assay. Performed By: #### 3 4529-8 ####CALE Roth ([id number])[facility] ([facility])[address] [place] [address] PT Coag (PPP) [Time] 13.1 s High 9.8-12.4 [facility] Comment on above: Order Comment: The A PTT is no longer used for monitoring Unfractionated Heparin Therapy. For monitoring Heparin Therapy, use the Heparin Assay. Performed By: #### 3 4529-8 ####CALE Roth ([id number])[facility] ([facility])[address] [place] [address] Renal function 2000 panelon 03-14-2025 Albumin BCP dye [Mass/Vol] 4.0 g/dL Normal 3.4-5.0 [facility] Comment on above: Performed By: #### 2 4362-6 ####CALE Roth ([id number])[facility] ([facility])[address] [place] [address] Anion gap [Moles/Vol] 12 mmol/L Normal 10-20 [facility] Comment on above: Performed By: #### 2 4362-6 ####CALE Roth ([id number])[facility] ([facility])[address] [place] [address] Calcium [Mass/Vol] 8.9 mg/dL Normal 8.6-10.[address] [facility] Comment on above: Performed By: #### 2 4362-6 ####CALE Roth ([id number])[facility] ([facility])[address] [place] [address] Chloride [Moles/Vol] 104 mmol/L Normal 98-107 [facility] Comment on above: Performed By: #### 2 4362-6 ####CALE Roth ([id number])[facility] ([facility])[address] [place] [address] CO2 [Moles/Vol] 28 mmol/L Normal 21-32 [facility] Comment on above: Performed By: #### 2 4362-6 ####CALE CAI L ([id number])[facility] ([facility])[address] [place] [address] Creatinine [Mass/Vol] 0.49 mg/dL Low 0.50-1.05 [facility] Comment on above: Performed By: #### 2 4362-6 ####CALE Roth ([id number])[facility] ([facility])[address] [place] [address] Glomerular filtration rate >90 Normal >60 [facility] Comment on above: Result Comment: Calc ulations of estimated GFR are performed using the 2020 CKD-EPI Study Refit equation without the race variable for the IDMS-Traceable creatinine methods.https://jasn.asnjournals.org/content/early//ASN .0311867374 Performed By: #### 2 4362-6 ####CALE Roth ([id number])[facility] ([facility])[address] [place] [address] Glucose [Mass/Vol] 168 mg/dL High 74-[address] [facility] Comment on above: Performed By: #### 2 4362-6 ####CALE CAI L ([id number])[facility] ([facility])[address] [place] [address] Phosphate [Mass/Vol] 2.8 mg/dL Normal 2.5-4.9 [facility] Comment on above: Performed By: #### 2 4362-6 ####CALE CAI L ([id number])[facility] ([facility])[address] [place] [address] Potassium [Moles/Vol] 3.6 mmol/L Normal 3.5-5.3 [facility] Comment on above: Performed By: #### 2 4362-6 ####CALE CAI L ([id number])[facility] ([facility])[address] [place] [address] Sodium [Moles/Vol] 140 mmol/L Normal 136-[address] [facility] Comment on above: Performed By: #### 2 4362-6 ####CALE CAI L ([id number])[facility] ([facility])[address] [place] [address] Urea nitrogen [Mass/Vol] 19 mg/dL Normal 6-23 [facility] Comment on above: Performed By: #### 2 4362-6 ####CALE Roth ([id number])[facility] ([facility])[address] [place] [address] Sodiumon 03-14-2025 Sodium [Moles/Vol] 141 mmol/L Normal 136-[address] [facility] Comment on above: Performed By: #### 2 951-2 ####CALE Roth ([id number])[facility] ([facility])[address] [place] [address] Sodium [Moles/Vol] 142 mmol/L Normal 136-[address] [facility] Comment on above: Performed By: #### 2 951-2 ####CALE Roth ([id number])[facility] ([facility])[address] [place] [address] Sodium [Moles/Vol] 146 mmol/L High 136-[address] [facility] Comment on above: Performed By: #### 2 951-2 ####CALE Roth ([id number])[facility] ([facility])[address] [place] [address] Sodium [Moles/Vol] 139 mmol/L Normal 136-[address] [facility] Comment on above: Performed By: #### 2 951-2 ####CALE Roth ([id number])[facility] ([facility])[address] [place] [address] Urinalysis complete W Reflex Culture panel (U)on 03-14-2025 Appearance (U) Clear Normal Clear [facility] Comment on above: Performed By: #### 5 8077-9 ####CALE Roth ([id number])[facility] ([facility])[address]75 [place] [address] Bilirubin (U) [Mass/Vol] Negative Normal NEGATIVE [facility] Comment on above: Performed By: #### 5 8077-9 ####CALE Roth ([id number])[facility] ([facility])[address]31 [place] [address] Color (U) Light-Yellow Normal Light-Yello w, Yellow, Dark-Yellow [facility] Comment on above: Performed By: #### 5 8077-9 ####CALE Roth ([id number])[facility] ([facility])[address] [place] [address] Glucose Auto test strip (U) [Mass/Vol] Normal Normal Normal [facility] Comment on above: Performed By: #### 5 8077-9 ####CALE CAI L ([id number])[facility] ([facility])[address] [place] [address] Ketones (U) [Mass/Vol] Negative Normal NEGATIVE [facility] Comment on above: Performed By: #### 5 8077-9 ####CALE Roth ([id number])[facility] ([facility])[address] [place] [address] Leukocyte esterase Auto test strip Ql (U) Negative Normal NEGATIVE [facility] Comment on above: Performed By: #### 5 8077-9 ####CALE Roth ([id number])[facility] ([facility])[address] [place] [address] Mucus Auto (Urine sed) [#/Area] FEW Normal Reference range not established . [facility] Comment on above: Performed By: #### 5 8077-9 ####CALE CAI L ([id number])[facility] ([facility])[address] [place] [address] Nitrite Auto test strip Ql (U) Negative Normal NEGATIVE [facility] Comment on above: Performed By: #### 5 8077-9 ####CALE CAI L ([id number])[facility] ([facility])[address] [place] [address] pH (U) 7.0 [pH] Normal 5.0, 5.5, 6.0, 6.5, 7.0, 7.5, 8.0 [facility] Comment on above: Performed By: #### 5 8077-9 ####CALE Roth ([id number])[facility] ([facility])[address] [place] [address] Protein (U) [Mass/Vol] 10 (TRACE) Normal NEGATIVE, 10 (TRACE), 20 (TRACE) [facility] Comment on above: Performed By: #### 5 8077-9 ####CALE CAI L ([id number])[facility] ([facility])[address]326 [place] [address] RBC (U) [#/Vol] 0.5 (2+) Abnormal NEGATIVE [facility] Comment on above: Performed By: #### 5 8077-9 ####CALE Roth ([id number])[facility] ([facility])[address] [place] [address] RBC Auto (Urine sed) [#/Area] >20 Abnormal NONE, 1-2, 3-5 [facility] Comment on above: Performed By: #### 5 8077-9 ####CALE Roth ([id number])[facility] ([facility])[address] [place] [address] Specific gravity (U) [Rel density] 1.016 Normal 1.005-1.035 [facility] Comment on above: Performed By: #### 5 8077-9 ####CALE CAI L ([id number])[facility] ([facility])[address] [place] [address] Urobilinogen (U) [Mass/Vol] Normal Normal Normal [facility] Comment on above: Performed By: #### 5 8077-9 ####CALE CAI L ([id number])[facility] ([facility])[address]438 [place] [address] WBC Auto (Urine sed) [#/Area] 1-5 Normal 1-5, NONE [facility] Comment on above: Performed By: #### 5 8077-9 ####CALE CAI L ([id number])[facility] ([facility])[address] [place] [address] XR CHEST 1 VIEWon 03-14-2025 XR CHEST 1 VIEW Normal [facility] CBC panel Auto (Bld)on 03-13 Erythrocyte distribution width (RBC) [Ratio] 11.7 % Normal 11.5-14.5 [facility] Comment on above: Performed By: #### 5 8410-2 ####CALE Roth ([id number])[facility] ([facility])[address] [place] [address] Hematocrit (Bld) [Volume fraction] 35.1 % Low 36.0-46.0 [facility] Comment on above: Performed By: #### 5 8410-2 ####CALE Roth ([id number])[facility] ([facility])[address] [place] [address] Hemoglobin (Bld) [Mass/Vol] 11.6 g/dL Low 12.0-16.0 [facility] Comment on above: Performed By: #### 5 8410-2 ####CALE Roth ([id number])[facility] ([facility])[address] [place] [address] MCH (RBC) [Entitic mass] 29.3 pg Normal 26.0-34.0 [facility] Comment on above: Performed By: #### 5 8410-2 ####CALE Roth ([id number])[facility] ([facility])[address] [place] [address] MCHC (RBC) [Mass/Vol] 33.0 g/dL Normal 32.0-36.0 [facility] Comment on above: Performed By: #### 5 8410-2 ####CALE Roth ([id number])[facility] ([facility])[address] [place] [address] MCV (RBC) [Entitic vol] 89 fL Normal 80-100 [facility] Comment on above: Performed By: #### 5 8410-2 ####CALE Roth ([id number])[facility] ([facility])[address]757 [place] [address] Nucleated RBC/100 WBC (Bld) [Ratio] 0.0 /100 WBCs Normal 0.0-0.0 [facility] Comment on above: Performed By: #### 5 8410-2 ####CALE Roth ([id number])[facility] ([facility])[address]24 [place] [address] Platelets (Bld) [#/Vol] 262 x10*3/uL Normal 150-450 [facility] Comment on above: Performed By: #### 5 8410-2 ####CALE Roth ([id number])[facility] ([facility])[address]86 [place] [address] RBC (Bld) [#/Vol] 3.96 x10*6/uL Low 4.00-5.20 [facility] Comment on above: Performed By: #### 5 8410-2 ####CALE Roth ([id number])[facility] ([facility])[address]103 [place] [address] WBC (Bld) [#/Vol] 9.5 x10*3/uL Normal 4.4-11.3 [facility] Comment on above: Performed By: #### 5 8410-2 ####CALE Roth ([id number])[facility] ([facility])[address] [place] [address] CT HEAD WO IV CONTRASTon CT HEAD WO IV CONTRAST Normal [facility] CT HEAD WO IV CONTRAST Normal [facility] Calcium.ionizedon 03-13-2025 Calcium.ionized (Bld) [Moles/Vol] 1.21 mmol/L Normal 1.1-1.33 [facility] Comment on above: Result Comment: The performance characteristics of ionized calcium testedin heparinized plasma or serum have been validated by [facility] where testing is performed.Testing on heparinized plasma or serum is not approved [facility]; however, such approval is not necessary. Performed By: #### 1 994-3 ####CALE Roth ([id number])[facility] ([facility])[address] [place] [address] Glucose Test strip manual (B ld) [Mass/Vol]on 03-13-2025 Glucose [Mass/Vol] 180 mg/dL High [address] [place] [address] Comment on above: Performed By: #### 2 341-6 ####CALE Roth ([id number])[facility] ([facility])[address]41 [place] [address] Glucose [Mass/Vol] 146 mg/dL High [address] [place] [address] Comment on above: Performed By: #### 2 341-6 ####CALE Roth ([id number])[facility] ([facility])[address]188 [place] [address] Glucose [Mass/Vol] 182 mg/dL High [address] [place] [address] Comment on above: Performed By: #### 2 341-6 ####CALE Roth ([id number])[facility] ([facility])[address]331 [place] [address] Glucose [Mass/Vol] 159 mg/dL High [address] [place] [address] Comment on above: Performed By: #### 2 341-6 ####CALE Roth ([id number])[facility] ([facility])[address] [place] [address] Glucose [Mass/Vol] 153 mg/dL High [address] [place] [address] Comment on above: Performed By: #### 2 341-6 ####CALE Roth ([id number])[facility] ([facility])[address]407 [place] [address] Glucose [Mass/Vol] 129 mg/dL High [address] [place] [address] Comment on above: Performed By: #### 2 341-6 ####CALE Roth ([id number])[facility] ([facility])[address] [place] [address] Glucose [Mass/Vol] 155 mg/dL High [facility] [facility] Comment on above: Performed By: #### 2 341-6 ####CALE Roth ([id number])[facility] ([facility])[address]74 [place] [address] Magnesiumon 03-13-2025 Magnesium [Mass/Vol] 2.32 mg/dL Normal 1.60-2.40 [facility] Comment on above: Performed By: #### 1 9123-9 ####CALE Roth ([id number])[facility] ([facility])[address]206 [place] [address] Procalcitoninon 03-13-2025 Procalcitonin [Mass/Vol] 0.03 ng/mL Normal <=0.07 [facility] Comment on above: Order Comment: Proca lcitonin (PCT) results measured serially canaid in decision-making for antibiotic discontinuation inpatients with suspected or confirmed sepsis in conjunctionwith additional clinical information. Antibioticdiscontinuation may be considered with a change in PCT of>80% from the peak result or when PCT falls below 0.50 ng/mL.Procalcitonin results should not be used in isolation butshould be interpreted in conjunction with additional clinicaland laboratory findings. Procalcitonin results should not beused to guide the initiation of antibiotic therapy.Falsely low PCT values in the presence of bacterial infectionmay occur in early infection, with atypical pathogens,localized infections, and subacute infectious endocarditis.Falsely elevated results outside of severe bacterialinfection/sepsis may be seen in patients with renal failureor insufficiency, severe trauma or hunter, recent majorabdominal/cardiac surgery, acute multi-organ failure, rarelyin patients with medullary thyroid carcinoma and rareneuroendocrine tumors, and non-specific interfering antibodies(heterophile antibodies, rheumatoid factor, human anti-mouseantibodies (HAMA), etc).Performance of the PCT test in pediatric patients (<18yo), women, immunocompromised patients, and patients onimmunomodulatory medications has not been evaluated. Performed By: #### 3 3959-8 ####CALE Roth ([id number])[facility] ([facility])[address]205 [place] [address] Renal function 2000 panelon 03-13-2025 Albumin BCP dye [Mass/Vol] 4.1 g/dL Normal 3.4-5.0 [facility] Comment on above: Performed By: #### 2 4362-6 ####CALE Roth ([id number])[facility] ([facility])[address]93 [place] [address] Anion gap [Moles/Vol] 16 mmol/L Normal 10-20 [facility] Comment on above: Performed By: #### 2 4362-6 ####CALE Roth ([id number])[facility] ([facility])[address]67 [place] [address] Calcium [Mass/Vol] 9.1 mg/dL Normal 8.6-10.[address] [facility] Comment on above: Performed By: #### 2 4362-6 ####CALE Roth ([id number])[facility] ([facility])[address]69 [place] [address] Chloride [Moles/Vol] 106 mmol/L Normal 98-107 [facility] Comment on above: Performed By: #### 2 4362-6 ####CALE Roth ([id number])[facility] ([facility])[address] [place] [address] CO2 [Moles/Vol] 25 mmol/L Normal 21-32 [facility] Comment on above: Performed By: #### 2 4362-6 ####CALE Roth ([id number])[facility] ([facility])[address]955 [place] [address] Creatinine [Mass/Vol] 0.44 mg/dL Low 0.50-1.05 [facility] Comment on above: Performed By: #### 2 4362-6 ####CALE Roth ([id number])[facility] ([facility])[address]806 [place] [address] Glomerular filtration rate >90 Normal >60 [facility] Comment on above: Result Comment: Calc ulations of estimated GFR are performed using the 2020 CKD-EPI Study Refit equation without the race variable for the IDMS-Traceable creatinine methods.https://jasn.asnjournals.org/content//ASN .6439332451 Performed By: #### 2 4362-6 ####CALE Roth ([id number])[facility] ([facility])[address]45 [place] [address] Glucose [Mass/Vol] 154 mg/dL High 74-[address] [facility] Comment on above: Performed By: #### 2 4362-6 ####CALE Roth ([id number])[facility] ([facility])[address]31 [place] [address] Phosphate [Mass/Vol] 2.9 mg/dL Normal 2.5-4.9 [facility] Comment on above: Performed By: #### 2 4362-6 ####CALE Roth ([id number])[facility] ([facility])[address]408 [place] [address] Potassium [Moles/Vol] 3.8 mmol/L Normal 3.5-5.3 [facility] Comment on above: Performed By: #### 2 4362-6 ####CALE Roth ([id number])[facility] ([facility])[address]164 [place] [address] Urea nitrogen [Mass/Vol] 18 mg/dL Normal 6-23 [facility] Comment on above: Performed By: #### 2 4362-6 ####CALE Roth ([id number])[facility] ([facility])[address]85 [place] [address] Sodiumon 03-13-2025 Sodium [Moles/Vol] 141 mmol/L Normal 136-[address] [facility] Comment on above: Performed By: #### 2 951-2 ####CALE Roth ([id number])[facility] ([facility])[address]47 [place] [address] Sodium [Moles/Vol] 139 mmol/L Normal 136-[address] [facility] Comment on above: Performed By: #### 2 951-2 ####CALE Roth ([id number])[facility] ([facility])[address] [place] [address] Sodium [Moles/Vol] 143 mmol/L Normal 136-[address] [facility] Comment on above: Performed By: #### 2 951-2 ####CALE Roth ([id number])[facility] ([facility])[address] [place] [address] Performed By: #### 2 4362-6 ####CALE Roth ([id number])[facility] ([facility])[address] [place] [address] CBC panel Auto (Bld)on 03-12 Erythrocyte distribution width (RBC) [Ratio] 11.6 % Normal 11.5-14.5 [facility] Comment on above: Performed By: #### 5 8410-2 ####CALE Roth ([id number])[facility] ([facility])[address] [place] [address] Hematocrit (Bld) [Volume fraction] 32.0 % Low 36.0-46.0 [facility] Comment on above: Performed By: #### 5 8410-2 ####CALE Roth ([id number])[facility] ([facility])[address] [place] [address] Hemoglobin (Bld) [Mass/Vol] 10.9 g/dL Low 12.0-16.0 [facility] Comment on above: Performed By: #### 5 8410-2 ####CALE Roth ([id number])[facility] ([facility])[address] [place] [address] MCH (RBC) [Entitic mass] 29.9 pg Normal 26.0-34.0 [facility] Comment on above: Performed By: #### 5 8410-2 ####CALE Roth ([id number])[facility] ([facility])[address]54 [place] [address] MCHC (RBC) [Mass/Vol] 34.1 g/dL Normal 32.0-36.0 [facility] Comment on above: Performed By: #### 5 8410-2 ####CALE Roth ([id number])[facility] ([facility])[address]362 [place] [address] MCV (RBC) [Entitic vol] 88 fL Normal 80-100 [facility] Comment on above: Performed By: #### 5 8410-2 ####CALE Roth ([id number])[facility] ([facility])[address]10 [place] [address] Nucleated RBC/100 WBC (Bld) [Ratio] 0.0 /100 WBCs Normal 0.0-0.0 [facility] Comment on above: Performed By: #### 5 8410-2 ####CALE Roth ([id number])[facility] ([facility])[address]16 [place] [address] Platelets (Bld) [#/Vol] 233 x10*3/uL Normal 150-450 [facility] Comment on above: Performed By: #### 5 8410-2 ####CALE Roth ([id number])[facility] ([facility])[address]486 [place] [address] RBC (Bld) [#/Vol] 3.64 x10*6/uL Low 4.00-5.20 [facility] Comment on above: Performed By: #### 5 8410-2 ####CALE Roth ([id number])[facility] ([facility])[address]267 [place] [address] WBC (Bld) [#/Vol] 8.0 x10*3/uL Normal 4.4-11.3 [facility] Comment on above: Performed By: #### 5 8410-2 ####CALE Roth ([id number])[facility] ([facility])[address] [place] [address] Calcium.ionizedon 03-12-2025 Calcium.ionized (Bld) [Moles/Vol] 1.20 mmol/L Normal 1.1-1.33 [facility] Comment on above: Result Comment: The performance characteristics of ionized calcium testedin heparinized plasma or serum have been validated by the[facility] where testing is performed.Testing on heparinized plasma or serum is not approved bythe FDA; however, such approval is not necessary. Performed By: #### 1 994-3 ####CALE Roth ([id number])[facility] ([facility])[address]99 [place] [address] Glucose Test strip manual (B ld) [Mass/Vol]on 03-12-2025 Glucose [Mass/Vol] 153 mg/dL High [address] [place] [address] Comment on above: Performed By: #### 2 341-6 ####CALE Roth ([id number])[facility] ([facility])[address] [place] [address] Glucose [Mass/Vol] 141 mg/dL [address] Comment on above: Performed By: #### 2 341-6 ####CALE Roth ([id number])[facility] ([facility])[address] [place] [address] Glucose [Mass/Vol] 155 mg/dL [address] Comment on above: Performed By: #### 2 341-6 ####CALE Roth ([id number])[facility] ([facility])[address] [place] [address] Glucose [Mass/Vol] 135 mg/dL High [address] [place] [address] Comment on above: Performed By: #### 2 341-6 ####CALE Roth ([id number])[facility] ([facility])[address] [place] [address] Glucose [Mass/Vol] 158 mg/dL High [address] [place] [address] Comment on above: Performed By: #### 2 341-6 ####CALE Roth ([id number])[facility] ([facility])[address]841 [place] [address] Magnesiumon 03-12-2025 Magnesium [Mass/Vol] 2.22 mg/dL Normal 1.60-2.40 [facility] Comment on above: Performed By: #### 1 9123-9 ####CALE Roth ([id number])[facility] ([facility])[address] [place] [address] Renal function 2000 panelon 03-12-2025 Albumin BCP dye [Mass/Vol] 3.8 g/dL Normal 3.4-5.0 [facility] Comment on above: Performed By: #### 2 4362-6 ####CALE Roth ([id number])[facility] ([facility])[id number] [place] [address] Anion gap [Moles/Vol] 9 mmol/L Low 10-20 [facility] Comment on above: Performed By: #### 2 4362-6 ####CALE Roth ([id number])[facility] ([facility])[address] [place] [address] Calcium [Mass/Vol] 8.9 mg/dL Normal 8.6-10.[address] [facility] Comment on above: Performed By: #### 2 4362-6 ####CALE Roth ([id number])[facility] ([facility])[address] [place] [address] 00927 Chloride [Moles/Vol] 105 mmol/L Normal 98-107 [facility] Comment on above: Performed By: #### 2 4362-6 ####CALE Roth ([id number])[facility] ([facility])[address] [place] [address] 46831 CO2 [Moles/Vol] 31 mmol/L Normal 21-32 [facility] Comment on above: Performed By: #### 2 4362-6 ####CALE Roth ([id number])[facility] ([facility])[address] [place] [address] Creatinine [Mass/Vol] 0.42 mg/dL Low 0.50-1.05 [facility] Comment on above: Performed By: #### 2 4362-6 ####CALE Roth ([id number])[facility] ([facility])[address]051 [place] [address] Glomerular filtration rate >90 Normal >60 [facility] Comment on above: Result Comment: Calc ulations of estimated GFR are performed using the 2020 CKD-EPI Study Refit equation without the race variable for the IDMS-Traceable creatinine methods.https://jasn.asnjournals.org/content/early//ASN .7090204475 Performed By: #### 2 4362-6 ####CALE Roth ([id number])[facility] ([facility])[address]64 [place] [address] Glucose [Mass/Vol] 147 mg/dL High 74-[address] [facility] Comment on above: Performed By: #### 2 4362-6 ####CALE Roth ([id number])[facility] ([facility])[address]34 [place] [address] Phosphate [Mass/Vol] 3.8 mg/dL Normal 2.5-4.9 [facility] Comment on above: Performed By: #### 2 4362-6 ####CALE Roth ([id number])[facility] ([facility])[address]573 [place] [address] Potassium [Moles/Vol] 3.4 mmol/L Low 3.5-5.3 [facility] Comment on above: Performed By: #### 2 4362-6 ####CALE Roth ([id number])[facility] ([facility])[address]71 [place] [address] Urea nitrogen [Mass/Vol] 18 mg/dL Normal 6-23 [facility] Comment on above: Performed By: #### 2 4362-6 ####CALE Roth ([id number])[facility] ([facility])68363 [place] [address] Sodiumon 03-12-2025 Sodium [Moles/Vol] 145 mmol/L Normal 136-[address] [facility] Comment on above: Performed By: #### 2 951-2 ####CALE Roth ([id number])[facility] ([facility])[address]36 [place] [address] Sodium [Moles/Vol] 139 mmol/L Normal 136-[address] [facility] Comment on above: Performed By: #### 2 951-2 ####CALE Roth ([id number])[facility] ([facility])[address]38 [place] [address] Sodium [Moles/Vol] 141 mmol/L Normal 136-[address] [facility] Comment on above: Performed By: #### 2 951-2 ####CALE Roth ([id number])[facility] ([facility])[address]955 [place] [address] Sodium [Moles/Vol] 142 mmol/L Normal 136-[address] [facility] Comment on above: Performed By: #### 2 951-2 ####CALE Roth ([id number])[facility] ([facility])[address] [place] [address] Performed By: #### 2 4362-6 ####CALE Roth ([id number])[facility] ([facility])[address]242 [place] [address] VASC US UPPER EXTREMITY VENO US DUPLEX BILATERALon 03-12-2025 VASC US UPPER EXTREMITY VENOUS DUPLEX BILATERAL Normal [facility] CBC panel Auto (Bld)on 03-11 Erythrocyte distribution width (RBC) [Ratio] 11.5 % Normal 11.5-14.5 [facility] Comment on above: Performed By: #### 5 8410-2 ####CALE Roth ([id number])[facility] ([facility])[address]285 [place] [address] Hematocrit (Bld) [Volume fraction] 30.3 % Low 36.0-46.0 [facility] Comment on above: Performed By: #### 5 8410-2 ####CALE Roth ([id number])[facility] ([facility])75262 [place] [address] Hemoglobin (Bld) [Mass/Vol] 10.9 g/dL Low 12.0-16.0 [facility] Comment on above: Performed By: #### 5 8410-2 ####CALE Roth ([id number])[facility] ([facility])[address]389 [place] [address] MCH (RBC) [Entitic mass] 30.0 pg Normal 26.0-34.0 [facility] Comment on above: Performed By: #### 5 8410-2 ####CALE Roth ([id number])[facility] ([facility])[address]12 [place] [address] MCHC (RBC) [Mass/Vol] 36.0 g/dL Normal 32.0-36.0 [facility] Comment on above: Performed By: #### 5 8410-2 ####CALE Roth ([id number])[facility] ([facility])[address]71 [place] [address] MCV (RBC) [Entitic vol] 84 fL Normal 80-100 [facility] Comment on above: Performed By: #### 5 8410-2 ####CALE Roth ([id number])[facility] ([facility])[address]68 [place] [address] Nucleated RBC/100 WBC (Bld) [Ratio] 0.0 /100 WBCs Normal 0.0-0.0 [facility] Comment on above: Performed By: #### 5 8410-2 ####CALE Roth ([id number])[facility] ([facility])[address]89 [place] [address] Platelets (Bld) [#/Vol] 231 x10*3/uL Normal 150-450 [facility] Comment on above: Performed By: #### 5 8410-2 ####CALE Roth ([id number])[facility] ([facility])41418 [place] [address] RBC (Bld) [#/Vol] 3.63 x10*6/uL Low 4.00-5.20 [facility] Comment on above: Performed By: #### 5 8410-2 ####CALE Roth ([id number])[facility] ([facility])61926 [place] [address] WBC (Bld) [#/Vol] 8.0 x10*3/uL Normal 4.4-11.3 [facility] Comment on above: Performed By: #### 5 8410-2 ####CALE Roth ([id number])[facility] ([facility])[address] [place] [address] Calcium.ionizedon 03-11-2025 Calcium.ionized (Bld) [Moles/Vol] 1.21 mmol/L Normal 1.1-1.33 [facility] Comment on above: Result Comment: The performance characteristics of ionized calcium testedin heparinized plasma or serum have been validated [facility] where testing is performed.Testing on heparinized plasma or serum is not approved bythe FDA; however, such approval is not necessary. Performed By: #### 1 994-3 ####CALE Roth ([id number])[facility] ([facility])[address] [place] [address] Glucose Test strip manual (B ld) [Mass/Vol]on 03-11-2025 Glucose [Mass/Vol] 151 mg/dL High 74-[address] [facility] Comment on above: Performed By: #### 2 341-6 ####CALE Roth ([id number])[facility] ([facility])20835 [place] [address] Glucose [Mass/Vol] 125 mg/dL High 74-[address] [facility] Comment on above: Performed By: #### 2 341-6 ####CALE Roth ([id number])[facility] ([facility])75367 [place] [address] Glucose [Mass/Vol] 171 mg/dL High [address] [place] [address] Comment on above: Performed By: #### 2 341-6 ####CALE Roth ([id number])[facility] ([facility])[address] [place] [address]4825 Glucose [Mass/Vol] 158 mg/dL High [address] [place] [address] Comment on above: Performed By: #### 2 341-6 ####CALE Roth ([id number])[facility] ([facility])[address] [place] [address] 39037 Glucose [Mass/Vol] 142 mg/dL High [address] [place] [address] Comment on above: Performed By: #### 2 341-6 ####CALE Roth ([id number])[facility] ([facility])[address] [place] [address]806 Glucose [Mass/Vol] 132 mg/dL High [address] [place] [address] Comment on above: Performed By: #### 2 341-6 ####CALE Roth ([id number])[facility] ([facility])[address] [place] [address]406 Magnesiumon 03-11-2025 Magnesium [Mass/Vol] 2.15 mg/dL Normal 1.60-2.40 [facility] Comment on above: Performed By: #### 1 9123-9 ####CALE Roth ([id number])[facility] ([facility])[address]49 [place] [address] Renal function 2000 panelon 03-11-2025 Albumin BCP dye [Mass/Vol] 4.0 g/dL Normal 3.4-5.0 [facility] Comment on above: Performed By: #### 2 4362-6 ####CALE Roth ([id number])[facility] ([facility])90684 [place] [address] Anion gap [Moles/Vol] 11 mmol/L Normal 10-20 [facility] Comment on above: Performed By: #### 2 4362-6 ####CALE Roth ([id number])[facility] ([facility])17450 [place] [address] Calcium [Mass/Vol] 9.4 mg/dL Normal 8.6-10.[address] [facility] Comment on above: Performed By: #### 2 4362-6 ####CALE Roth ([id number])[facility] ([facility])24105 [place] [address] Chloride [Moles/Vol] 105 mmol/L Normal 98-107 [facility] Comment on above: Performed By: #### 2 4362-6 ####CALE Roth ([id number])[facility] ([facility])79249 [place] [address] CO2 [Moles/Vol] 28 mmol/L Normal 21-32 [facility] Comment on above: Performed By: #### 2 4362-6 ####CALE Roth ([id number])[facility] ([facility])73742 [place] [address] Creatinine [Mass/Vol] 0.37 mg/dL Low 0.50-1.05 [facility] Comment on above: Performed By: #### 2 4362-6 ####CALE Roth ([id number])[facility] ([facility])50489 [place] [address] Glomerular filtration rate >90 Normal >60 [facility] Comment on above: Result Comment: Calc ulations of estimated GFR are performed using the 2020 CKD-EPI Study Refit equation without the race variable for the IDMS-Traceable creatinine methods.https://jasn.asnjournals.org/content//ASN .6939590947 Performed By: #### 2 4362-6 ####CALE Roth ([id number])[facility] ([facility])36768 [place] [address] Glucose [Mass/Vol] 151 mg/dL High 74-[address] [facility] Comment on above: Performed By: #### 2 4362-6 ####CALE Roth ([id number])[facility] ([facility])[address]690 [place] [address] Phosphate [Mass/Vol] 3.0 mg/dL Normal 2.5-4.9 [facility] Comment on above: Performed By: #### 2 4362-6 ####CALE Roth ([id number])[facility] ([facility])87808 [place] [address] Potassium [Moles/Vol] 3.8 mmol/L Normal 3.5-5.3 [facility] Comment on above: Performed By: #### 2 4362-6 ####CALE Roth ([id number])[facility] ([facility])54462 [place] [address] Urea nitrogen [Mass/Vol] 16 mg/dL Normal 6-23 [facility] Comment on above: Performed By: #### 2 4362-6 ####CALE Roth ([id number])[facility] ([facility])50683 [place] [address] Albumin BCP dye [Mass/Vol] 3.9 g/dL Normal 3.4-5.0 [facility] Comment on above: Performed By: #### 2 4362-6 ####CALE Roth ([id number])[facility] ([facility])51767 [place] [address] Anion gap [Moles/Vol] 13 mmol/L Normal 10-20 [facility] Comment on above: Performed By: #### 2 4362-6 ####CALE Roth ([id number])[facility] ([facility])65729 [place] [address] Calcium [Mass/Vol] 9.2 mg/dL Normal 8.6-10.[address] [facility] Comment on above: Performed By: #### 2 4362-6 ####CALE RUTLEDGEER L ([id number])[facility] ([facility])[address]7317 [place] [address] Chloride [Moles/Vol] 106 mmol/L Normal 98-107 [facility] Comment on above: Performed By: #### 2 4362-6 ####CALE TOSCANOMOTZER L ([id number])[facility] ([facility])15618 [place] [address] CO2 [Moles/Vol] 27 mmol/L Normal 21-32 [facility] Comment on above: Performed By: #### 2 4362-6 ####CALE CAI L ([id number])[facility] ([facility])29208 [place] [address] Creatinine [Mass/Vol] 0.42 mg/dL Low 0.50-1.05 [facility] Comment on above: Performed By: #### 2 4362-6 ####CALE CAI L ([id number])[facility] ([facility])11009 [place] [address] Glomerular filtration rate >90 Normal >60 [facility] Comment on above: Result Comment: Calc ulations of estimated GFR are performed using the 2020 CKD-EPI Study Refit equation without the race variable for the IDMS-Traceable creatinine methods.https://jasn.asnjournals.org/content//ASN .2130711947 Performed By: #### 2 4362-6 ####CALE PARKERTZGONZALEZ L ([id number])[facility] ([facility])96001 [place] [address] Glucose [Mass/Vol] 141 mg/dL High 74-[address] [facility] Comment on above: Performed By: #### 2 4362-6 ####CALE PARKERTZGONZALEZ L ([id number])[facility] ([facility])35909 [place] [address] Phosphate [Mass/Vol] 3.0 mg/dL Normal 2.5-4.9 [facility] Comment on above: Performed By: #### 2 4362-6 ####CALE Roth ([id number])[facility] ([facility])[address] [place] [address]121 Potassium [Moles/Vol] 3.2 mmol/L Low 3.5-5.3 [facility] Comment on above: Performed By: #### 2 4362-6 ####CALE Roth ([id number])[facility] ([facility])85992 [place] [address] Urea nitrogen [Mass/Vol] 20 mg/dL Normal 6-23 [facility] Comment on above: Performed By: #### 2 4362-6 ####CALE Roth ([id number])[facility] ([facility])[address] [place] [address] 62989 Sodiumon 03-11-2025 Sodium [Moles/Vol] 140 mmol/L Normal 136-[address] [facility] Comment on above: Performed By: #### 2 951-2 ####CALE Roth ([id number])[facility] ([facility])[address] [place] [address] 50738 Sodium [Moles/Vol] 140 mmol/L Normal 136-[address] [facility] Comment on above: Performed By: #### 2 951-2 ####CALE Roth ([id number])[facility] ([facility])[address] [place] [address] 92567 Sodium [Moles/Vol] 140 mmol/L Normal 136-[address] [facility] Comment on above: Performed By: #### 2 951-2 ####CALE Roth ([id number])[facility] ([facility])[address] [place] [address] 87828 Performed By: #### 2 4362-6 ####CAEL Roth ([id number])[facility] ([facility])19601 [place] [address] Sodium [Moles/Vol] 144 mmol/L Normal 136-[address] [facility] Comment on above: Performed By: #### 2 951-2 ####CALE Roth ([id number])[facility] ([facility])[address] [place] [address] 18043 Sodium [Moles/Vol] 143 mmol/L Normal 136-[address] [facility] Comment on above: Performed By: #### 2 951-2 ####CALE Roth ([id number])[facility] ([facility])[address] [place] [address] 63748 Performed By: #### 2 4362-6 ####CALE Roth ([id number])[facility] ([facility])[address] [place] [address]189 VASC US LOWER EXTREMITY VENO US DUPLEX BILATERALon 03-11-2025 VASC US LOWER EXTREMITY VENOUS DUPLEX BILATERAL Normal [facility] CBC panel Auto (Bld)on 03-10 Erythrocyte distribution width (RBC) [Ratio] 11.6 % Normal 11.5-14.5 [facility] Comment on above: Performed By: #### 5 8410-2 ####CALE Roth ([id number])[facility] ([facility])[address] [place] [address] 71098 Hematocrit (Bld) [Volume fraction] 29.6 % Low 36.0-46.0 [facility] Comment on above: Performed By: #### 5 8410-2 ####CALE Roth ([id number])[facility] ([facility])[address] [place] [address] 09901 Hemoglobin (Bld) [Mass/Vol] 10.5 g/dL Low 12.0-16.0 [facility] Comment on above: Performed By: #### 5 8410-2 ####CALE Roth ([id number])[facility] ([facility])[address] [place] [address] 87491 MCH (RBC) [Entitic mass] 29.7 pg Normal 26.0-34.0 [facility] Comment on above: Performed By: #### 5 8410-2 ####CALE Roth ([id number])[facility] ([facility])62067 [place] [address] MCHC (RBC) [Mass/Vol] 35.5 g/dL Normal 32.0-36.0 [facility] Comment on above: Performed By: #### 5 8410-2 ####CALE Roth ([id number])[facility] ([facility])11054 [place] [address] MCV (RBC) [Entitic vol] 84 fL Normal 80-100 [facility] Comment on above: Performed By: #### 5 8410-2 ####CALE Roth ([id number])[facility] ([facility])[address]3266 [place] [address] Nucleated RBC/100 WBC (Bld) [Ratio] 0.0 /100 WBCs Normal 0.0-0.0 [facility] Comment on above: Performed By: #### 5 8410-2 ####CALE Roth ([id number])[facility] ([facility])13178 [place] [address] Platelets (Bld) [#/Vol] 197 x10*3/uL Normal 150-450 [facility] Comment on above: Performed By: #### 5 8410-2 ####CALE CAI L ([id number])[facility] ([facility])77992 [place] [address] RBC (Bld) [#/Vol] 3.53 x10*6/uL Low 4.00-5.20 [facility] Comment on above: Performed By: #### 5 8410-2 ####CALE CAI L ([id number])[facility] ([facility])29286 [place] [address] WBC (Bld) [#/Vol] 6.1 x10*3/uL Normal 4.4-11.3 [facility] Comment on above: Performed By: #### 5 8410-2 ####CALE Roth ([id number])[facility] ([facility])[address]49 [place] [address] CT HEAD WO IV CONTRASTon CT HEAD WO IV CONTRAST Normal [facility] Glucose Test strip manual (B ld) [Mass/Vol]on 03-10-2025 Glucose [Mass/Vol] 151 mg/dL High [address] [place] [address] Comment on above: Performed By: #### 2 341-6 ####CALE Roth ([id number])[facility] ([facility])[address]6840 [place] [address] Glucose [Mass/Vol] 146 mg/dL High [address] [place] [address] Comment on above: Performed By: #### 2 341-6 ####CALE Roth ([id number])[facility] ([facility])23111 [place] [address] Glucose [Mass/Vol] 142 mg/dL High [address] [place] [address] Comment on above: Performed By: #### 2 341-6 ####CALE Roth ([id number])[facility] ([facility])64524 [place] [address] Glucose [Mass/Vol] 178 mg/dL High [address] [place] [address] Comment on above: Performed By: #### 2 341-6 ####CALE Roth ([id number])[facility] ([facility])37741 [place] [address] Glucose [Mass/Vol] 152 mg/dL High [address] [place] [address] Comment on above: Performed By: #### 2 341-6 ####CALE Roth ([id number])[facility] ([facility])21816 [place] [address] Glucose [Mass/Vol] 122 mg/dL High [address] [place] [address] Comment on above: Performed By: #### 2 341-6 ####CALE Roth ([id number])[facility] ([facility])17884 [place] [address] Glucose [Mass/Vol] 144 mg/dL High 74-[address] [facility] Comment on above: Performed By: #### 2 341-6 ####CALE Roth ([id number])[facility] ([facility])[address] [place] [address] Magnesiumon 03-10-2025 Magnesium [Mass/Vol] 2.06 mg/dL Normal 1.60-2.40 [facility] Comment on above: Performed By: #### 1 9123-9 ####CALE Roth ([id number])[facility] ([facility])[address] [place] [address] Renal function 2000 panelon 03-10-2025 Albumin BCP dye [Mass/Vol] 3.7 g/dL Normal 3.4-5.0 [facility] Comment on above: Performed By: #### 2 4362-6 ####CALE Roth ([id number])[facility] ([facility])[address] [place] [address] Anion gap [Moles/Vol] 14 mmol/L Normal 10-20 [facility] Comment on above: Performed By: #### 2 4362-6 ####CALE Roth ([id number])[facility] ([facility])[address] [place] [address] Calcium [Mass/Vol] 9.0 mg/dL Normal 8.6-10.[address] [facility] Comment on above: Performed By: #### 2 4362-6 ####CALE Roth ([id number])[facility] ([facility])[address] [place] [address] Chloride [Moles/Vol] 106 mmol/L Normal 98-107 [facility] Comment on above: Performed By: #### 2 4362-6 ####CALE Roth ([id number])[facility] ([facility])[address] [place] [address] CO2 [Moles/Vol] 27 mmol/L Normal 21-32 [facility] Comment on above: Performed By: #### 2 4362-6 ####CALE Roth ([id number])[facility] ([facility])[address] [place] [address] Creatinine [Mass/Vol] 0.38 mg/dL Low 0.50-1.05 [facility] Comment on above: Performed By: #### 2 4362-6 ####CALE Roth ([id number])[facility] ([facility])[address] [place] [address] Glomerular filtration rate >90 Normal >60 [facility] Comment on above: Result Comment: Calc ulations of estimated GFR are performed using the 2020 CKD-EPI Study Refit equation without the race variable for the IDMS-Traceable creatinine methods.https://jasn.asnjournals.org/content//ASN .1730224874 Performed By: #### 2 4362-6 ####CALE Roth ([id number])[facility] ([facility])[address] [place] [address] Glucose [Mass/Vol] 139 mg/dL High 74-[address] [facility] Comment on above: Performed By: #### 2 4362-6 ####CALE Roth ([id number])[facility] ([facility])[address] [place] [address] Phosphate [Mass/Vol] 2.9 mg/dL Normal 2.5-4.9 [facility] Comment on above: Performed By: #### 2 4362-6 ####CALE Roth ([id number])[facility] ([facility])[address]65 [place] [address] Potassium [Moles/Vol] 3.5 mmol/L Normal 3.5-5.3 [facility] Comment on above: Performed By: #### 2 4362-6 ####CALE Roth ([id number])[facility] ([facility])[address] [place] [address] Sodium [Moles/Vol] 143 mmol/L Normal 136-[address] [facility] Comment on above: Performed By: #### 2 4362-6 ####CALE Roth ([id number])[facility] ([facility])[address]444 [place] [address] Urea nitrogen [Mass/Vol] 16 mg/dL Normal 6-23 [facility] Comment on above: Performed By: #### 2 4362-6 ####CALE Roth ([id number])[facility] ([facility])[address] [place] [address] Sodiumon 03-10-2025 Sodium [Moles/Vol] 145 mmol/L Normal 136-[address] [facility] Comment on above: Performed By: #### 2 951-2 ####CALE Roth ([id number])[facility] ([facility])[address]105 [place] [address] Sodium [Moles/Vol] 144 mmol/L Normal 136-[address] [facility] Comment on above: Performed By: #### 2 951-2 ####CALE Roth ([id number])[facility] ([facility])[address] [place] [address] CBC W Auto Differential pane l (Bld)on 03-09-2025 Basophils (Bld) [#/Vol] 0.04 x10*3/uL Normal 0.00-0.10 [facility] Comment on above: Performed By: #### 5 7021-8 ####CALE Roth ([id number])[facility] ([facility])[address] [place] [address] Basophils/100 WBC (Bld) 0.6 % Normal 0.0-2.0 [facility] Comment on above: Performed By: #### 5 7021-8 ####CALE Roth ([id number])[facility] ([facility])[address] [place] [address] Eosinophils (Bld) [#/Vol] 0.07 x10*3/uL Normal 0.00-0.70 [facility] Comment on above: Performed By: #### 5 7021-8 ####CALE Roth ([id number])[facility] ([facility])[address]994 [place] [address] Eosinophils/100 WBC (Bld) 1.1 % Normal 0.0-6.0 [facility] Comment on above: Performed By: #### 5 7021-8 ####CALE Roth ([id number])[facility] ([facility])[address] [place] [address] Erythrocyte distribution width (RBC) [Ratio] 11.4 % Low 11.5-14.5 [facility] Comment on above: Performed By: #### 5 7021-8 ####CALE Roth ([id number])[facility] ([facility])[address] [place] [address] Hematocrit (Bld) [Volume fraction] 31.0 % Low 36.0-46.0 [facility] Comment on above: Performed By: #### 5 7021-8 ####CALE Roth ([id number])[facility] ([facility])[address] [place] [address] Hemoglobin (Bld) [Mass/Vol] 10.8 g/dL Low 12.0-16.0 [facility] Comment on above: Performed By: #### 5 7021-8 ####CALE Roth ([id number])[facility] ([facility])[address] [place] [address] Immature granulocytes (Bld) [#/Vol] 0.24 x10*3/uL Normal 0.00-0.70 [facility] Comment on above: Performed By: #### 5 7021-8 ####CALE Roth ([id number])[facility] ([facility])[address]52 [place] [address] Immature granulocytes/100 WBC (Bld) 3.8 % High 0.0-0.9 [facility] Comment on above: Result Comment: Aleisha ture Granulocyte Count (IG) includes promyelocytes, myelocytes and metamyelocytes but does not include bands. Percent differential counts (%) should be interpreted in the context of the absolute cell counts (cells/UL). Performed By: #### 5 7021-8 ####CALE Roth ([id number])[facility] ([facility])[address]70 [place] [address] Lymphocytes (Bld) [#/Vol] 1.02 x10*3/uL Low 1.20-4.80 [facility] Comment on above: Performed By: #### 5 7021-8 ####CALE Roth ([id number])[facility] ([facility])[address] [place] [address] Lymphocytes/100 WBC (Bld) 16.2 % Normal 13.0-44.0 [facility] Comment on above: Performed By: #### 5 7021-8 ####CALE TOSCANOMOISAURA L ([id number])[facility] ([facility])[address]094 [place] [address] MCH (RBC) [Entitic mass] 29.8 pg Normal 26.0-34.0 [facility] Comment on above: Performed By: #### 5 7021-8 ####CALE TOSCANOMOISAURA Roth ([id number])[facility] ([facility])[address]492 [place] [address] MCHC (RBC) [Mass/Vol] 34.8 g/dL Normal 32.0-36.0 [facility] Comment on above: Performed By: #### 5 7021-8 ####CALE TOSCANOMOTZER L ([id number])[facility] ([facility])[address]337 [place] [address] MCV (RBC) [Entitic vol] 86 fL Normal 80-100 [facility] Comment on above: Performed By: #### 5 7021-8 ####CALE CAI L ([id number])[facility] ([facility])[address]21 [place] [address] Monocytes (Bld) [#/Vol] 0.67 x10*3/uL Normal 0.10-1.00 [facility] Comment on above: Performed By: #### 5 7021-8 ####CALE PARKERTZER L ([id number])[facility] ([facility])[address]335 [place] [address] Monocytes/100 WBC (Bld) 10.7 % Normal 2.0-10.0 [facility] Comment on above: Performed By: #### 5 7021-8 ####CALE TOSCANOMOTZER L ([id number])[facility] ([facility])[address]95 [place] [address] Neutrophils (Bld) [#/Vol] 4.25 x10*3/uL Normal 1.20-7.70 [facility] Comment on above: Result Comment: Perc ent differential counts (%) should be interpreted in the context of the absolute cell counts (cells/uL). Performed By: #### 5 7021-8 ####CALE PARKERTZER L ([id number])[facility] ([facility])[address]165 [place] [address] Neutrophils/100 WBC (Bld) 67.6 % Normal 40.0-80.0 [facility] Comment on above: Performed By: #### 5 7021-8 ####CALE TOSCANOMOISAURA L ([id number])[facility] ([facility])[address]83 [place] [address] Nucleated RBC/100 WBC (Bld) [Ratio] 0.0 /100 WBCs Normal 0.0-0.0 [facility] Comment on above: Performed By: #### 5 7021-8 ####CALE TOSCANOMOTZER L ([id number])[facility] ([facility])[address]283 [place] [address] Platelets (Bld) [#/Vol] 184 x10*3/uL Normal 150-450 [facility] Comment on above: Performed By: #### 5 7021-8 ####CALE TOSCANOMOTZER L ([id number])[facility] ([facility])[address]366 [place] [address] RBC (Bld) [#/Vol] 3.62 x10*6/uL Low 4.00-5.20 [facility] Comment on above: Performed By: #### 5 7021-8 ####CALE Roth ([id number])[facility] ([facility])[address]85 [place] [address] WBC (Bld) [#/Vol] 6.3 x10*3/uL Normal 4.4-11.3 [facility] Comment on above: Performed By: #### 5 7021-8 ####CALE Roth ([id number])[facility] ([facility])[address] [place] [address] Calcium.ionizedon 03-09-2025 Calcium.ionized (Bld) [Moles/Vol] 1.19 mmol/L Normal 1.1-1.33 [facility] Comment on above: Result Comment: The performance characteristics of ionized calcium testedin heparinized plasma or serum have been validated [facility] where [facility] is performed.Testing on heparinized plasma or serum is not approved bythe FDA; however, such approval is not necessary. Performed By: #### 1 994-3 ####CALE Roth ([id number])[facility] ([facility])[address] [place] [address]199 Glucose Test strip manual (B ld) [Mass/Vol]on 03-09-2025 Glucose [Mass/Vol] 134 mg/dL [address] Comment on above: Performed By: #### 2 341-6 ####CALE Roth ([id number])[facility] ([facility])[address] [place] [address] Glucose [Mass/Vol] 139 mg/dL [address] Comment on above: Performed By: #### 2 341-6 ####CALE Roth ([id number])[facility] ([facility])[address] [place] [address] Glucose [Mass/Vol] 133 mg/dL High 74-[address] [facility] Comment on above: Performed By: #### 2 341-6 ####CALE Roth ([id number])[facility] ([facility])[address]92 [place] [address] Glucose [Mass/Vol] 154 mg/dL High 74-[address] [facility] Comment on above: Performed By: #### 2 341-6 ####CALE Roth ([id number])[facility] ([facility])[address]15 [place] [address] Glucose [Mass/Vol] 162 mg/dL High 74-[address] [facility] Comment on above: Performed By: #### 2 341-6 ####CALE Roth ([id number])[facility] ([facility])[address]406 [place] [address] Magnesiumon 03-09-2025 Magnesium [Mass/Vol] 2.01 mg/dL Normal 1.60-2.40 [facility] Comment on above: Performed By: #### 1 9123-9 ####CALE Roth ([id number])[facility] ([facility])[address]68 [place] [address] Renal function 2000 panelon 03-09-2025 Albumin BCP dye [Mass/Vol] 3.6 g/dL Normal 3.4-5.0 [facility] Comment on above: Performed By: #### 2 4362-6 ####CALE Roth ([id number])[facility] ([facility])42743 [place] [address] Anion gap [Moles/Vol] 12 mmol/L Normal 10-20 [facility] Comment on above: Performed By: #### 2 4362-6 ####CALE Roth ([id number])[facility] ([facility])[address]60 [place] [address] Calcium [Mass/Vol] 8.9 mg/dL Normal 8.6-10.[address] [facility] Comment on above: Performed By: #### 2 4362-6 ####CALE CAI L ([id number])[facility] ([facility])[address]777 [place] [address] Chloride [Moles/Vol] 106 mmol/L Normal 98-107 [facility] Comment on above: Performed By: #### 2 4362-6 ####CALE CAI L ([id number])[facility] ([facility])[address]77 [place] [address] CO2 [Moles/Vol] 29 mmol/L Normal 21-32 [facility] Comment on above: Performed By: #### 2 4362-6 ####CALE CAI L ([id number])[facility] ([facility])[address]60 [place] [address] Creatinine [Mass/Vol] 0.47 mg/dL Low 0.50-1.05 [facility] Comment on above: Performed By: #### 2 4362-6 ####CALE CAI L ([id number])[facility] ([facility])[address]10 [place] [address] Glomerular filtration rate >90 Normal >60 [facility] Comment on above: Result Comment: Calc ulations of estimated GFR are performed using the 2020 CKD-EPI Study Refit equation without the race variable for the IDMS-Traceable creatinine methods.https://jasn.asnjournals.org/content//ASN .4385095333 Performed By: #### 2 4362-6 ####CALE PARKERTZGONZALEZ L ([id number])[facility] ([facility])[address]229 [place] [address] Glucose [Mass/Vol] 154 mg/dL High 74-[address] [facility] Comment on above: Performed By: #### 2 4362-6 ####CALE CAI L ([id number])[facility] ([facility])[address] [place] [address] Phosphate [Mass/Vol] 2.8 mg/dL Normal 2.5-4.9 [facility] Comment on above: Performed By: #### 2 4362-6 ####CALE Roth ([id number])[facility] ([facility])[address]28 [place] [address] Potassium [Moles/Vol] 3.6 mmol/L Normal 3.5-5.3 [facility] Comment on above: Performed By: #### 2 4362-6 ####CALE Roth ([id number])[facility] ([facility])12438 [place] [address] Urea nitrogen [Mass/Vol] 14 mg/dL Normal 6-23 [facility] Comment on above: Performed By: #### 2 4362-6 ####CALE Roth ([id number])[facility] ([facility])23051 [place] [address] Sodiumon 03-09-2025 Sodium [Moles/Vol] 143 mmol/L Normal 136-[address] [facility] Comment on above: Performed By: #### 2 951-2 ####CALE Roth ([id number])[facility] ([facility])47650 [place] [address] Sodium [Moles/Vol] 146 mmol/L High 136-[address] [facility] Comment on above: Performed By: #### 2 951-2 ####CALE Roth ([id number])[facility] ([facility])70352 [place] [address] Sodium [Moles/Vol] 144 mmol/L Normal 136-[address] [facility] Comment on above: Performed By: #### 2 951-2 ####CALE Roth ([id number])[facility] ([facility])[address]83 [place] [address] Sodium [Moles/Vol] 143 mmol/L Normal 136-[address] [facility] Comment on above: Performed By: #### 2 951-2 ####CALE Roth ([id number])[facility] ([facility])[address] [place], [place] [address] Performed By: #### 2 4362-6 ####CALE Roth ([id number])[facility] ([facility])[address] [place], [place] [address] Vancomycinon 03-09-2025 Vancomycin [Mass/Vol] 13.6 ug/mL Normal 5.0-20.0 [facility] Comment on above: Order Comment: Vanco mycin levels can be monitored according to area under the curve (AUC) or concentration (ug/mL). The preferred monitoring strategy is determined by the patient's renal function and indication for therapy.For AUC monitoring, a random vancomycin level should be interpreted in the context of AUC rather than the concentration at a single point in time.For concentration monitoring, a trough concentration drawn immediately prior to the next dose is preferred.Therapeutic ranges using concentration-guided results:Peak (all ages): 30.0-40.0 ug/mLTrough (all ages): 10.0-20.0 ug/mL Performed By: #### 2 0578-1 ####CALE Roth ([id number])[facility] ([facility])[address] [place], [place] [address] Adenovirus DNAon 03-08-2025 Adenovirus DNA JOSE+probe Ql (Unsp spec) Not detected Normal Not detected [facility] Comment on above: Order Comment: This assay is an FDA-cleared multiplex real- time PCR (RT-PCR) in vitro diagnostic test for the qualitative detection and differentiation of Adenovirus (AdV), human Metapneumovirus (hMPV), and Rhinovirus (RV), from nasopharyngeal swab specimens in symptomatic patients. Negative results do not preclude Adenovirus infections and should not be used as the sole basis for treatment or other management decisions. Performed By: #### 3 9528-5 ####CALE Roth ([id number])[facility] ([facility])[address] [place] [id number] Bacteriaon 03-08-2025 Bacteria identified Respiratory culture Nom (Unsp spec) Abnormal [facility] Comment on above: Performed By: #### 3 2355-0 ####CALE Roth ([id number])[facility] ([facility])[address]1973 [place] [address] Bacteria identified Cx Nom (CSF) Normal [facility] Comment on above: Performed By: #### 6 06-4 ####CALE Roth ([id number])[facility] ([facility])[address]65 [place] [address] Bacteria identified Cx Nom (Bld) Normal [facility] Comment on above: Performed By: #### 6 00-7 ####CALE Roth ([id number])[facility] ([facility])[address]78 [place] [address] CBC W Auto Differential pane l (d)on 03-08-2025 Erythrocyte distribution width (RBC) [Ratio] 11.9 % Normal 11.5-14.5 [facility] Comment on above: Order Comment: The p reviously reported component Neutrophils % is no longer being reported.The previously reported component Lymphocytes % is no longer being reported.The previously reported component Monocytes % is no longer being reported.The previously reported component Eosinophils % is no longer being reported.The previously reported component Basophils % is no longer being reported.The previously reported component Absolute Neutrophils is no longer being reported.The previously reported component Absolute Lymphocytes is no longer being reported.The previously reported component Absolute Monocytes is no longer being reported.The previously reported component Absolute Eosinophils is no longer being reported.The previously reported component Absolute Basophils is no longer being reported. Performed By: #### 5 7021-8 ####CALE Roth ([id number])[facility] ([facility])[address]39 [place] [address] Hematocrit (Bld) [Volume fraction] 36.7 % Normal 36.0-46.0 [facility] Comment on above: Order Comment: The p reviously reported component Neutrophils % is no longer being reported.The previously reported component Lymphocytes % is no longer being reported.The previously reported component Monocytes % is no longer being reported.The previously reported component Eosinophils % is no longer being reported.The previously reported component Basophils % is no longer being reported.The previously reported component Absolute Neutrophils is no longer being reported.The previously reported component Absolute Lymphocytes is no longer being reported.The previously reported component Absolute Monocytes is no longer being reported.The previously reported component Absolute Eosinophils is no longer being reported.The previously reported component Absolute Basophils is no longer being reported. Performed By: #### 5 7021-8 ####CALE Roth ([id number])[facility] ([facility])[address]50 [place] [address] Hemoglobin (Bld) [Mass/Vol] 12.1 g/dL Normal 12.0-16.0 [facility] Comment on above: Order Comment: The p reviously reported component Neutrophils % is no longer being reported.The previously reported component Lymphocytes % is no longer being reported.The previously reported component Monocytes % is no longer being reported.The previously reported component Eosinophils % is no longer being reported.The previously reported component Basophils % is no longer being reported.The previously reported component Absolute Neutrophils is no longer being reported.The previously reported component Absolute Lymphocytes is no longer being reported.The previously reported component Absolute Monocytes is no longer being reported.The previously reported component Absolute Eosinophils is no longer being reported.The previously reported component Absolute Basophils is no longer being reported. Performed By: #### 5 7021-8 ####CALE Roth ([id number])[facility] ([facility])[address] [place] [address] Immature granulocytes (Bld) [#/Vol] 0.19 x10*3/uL Normal 0.00-0.70 [facility] Comment on above: Order Comment: The p reviously reported component Neutrophils % is no longer being reported.The previously reported component Lymphocytes % is no longer being reported.The previously reported component Monocytes % is no longer being reported.The previously reported component Eosinophils % is no longer being reported.The previously reported component Basophils % is no longer being reported.The previously reported component Absolute Neutrophils is no longer being reported.The previously reported component Absolute Lymphocytes is no longer being reported.The previously reported component Absolute Monocytes is no longer being reported.The previously reported component Absolute Eosinophils is no longer being reported.The previously reported component Absolute Basophils is no longer being reported. Performed By: #### 5 7021-8 ####CALE Roth ([id number])[facility] ([facility])[address] [place] [address] Immature granulocytes/100 WBC (Bld) 1.5 % High 0.0-0.9 [facility] Comment on above: Order Comment: The p reviously reported component Neutrophils % is no longer being reported.The previously reported component Lymphocytes % is no longer being reported.The previously reported component Monocytes % is no longer being reported.The previously reported component Eosinophils % is no longer being reported.The previously reported component Basophils % is no longer being reported.The previously reported component Absolute Neutrophils is no longer being reported.The previously reported component Absolute Lymphocytes is no longer being reported.The previously reported component Absolute Monocytes is no longer being reported.The previously reported component Absolute Eosinophils is no longer being reported.The previously reported component Absolute Basophils is no longer being reported. Result Comment: Aleisha ture Granulocyte Count (IG) includes promyelocytes, myelocytes and metamyelocytes but does not include bands. Percent differential counts (%) should be interpreted in the context of the absolute cell counts (cells/UL). Performed By: #### 5 7021-8 ####CALE Roth ([id number])[facility] ([facility])[address] [place] [id number] MCH (RBC) [Entitic mass] 30.0 pg Normal 26.0-34.0 [facility] Comment on above: Order Comment: The p reviously reported component Neutrophils % is no longer being reported.The previously reported component Lymphocytes % is no longer being reported.The previously reported component Monocytes % is no longer being reported.The previously reported component Eosinophils % is no longer being reported.The previously reported component Basophils % is no longer being reported.The previously reported component Absolute Neutrophils is no longer being reported.The previously reported component Absolute Lymphocytes is no longer being reported.The previously reported component Absolute Monocytes is no longer being reported.The previously reported component Absolute Eosinophils is no longer being reported.The previously reported component Absolute Basophils is no longer being reported. Performed By: #### 5 7021-8 ####CALE Roth ([id number])[facility] ([facility])[address] [place] [address] MCHC (RBC) [Mass/Vol] 33.0 g/dL Normal 32.0-36.0 [facility] Comment on above: Order Comment: The p reviously reported component Neutrophils % is no longer being reported.The previously reported component Lymphocytes % is no longer being reported.The previously reported component Monocytes % is no longer being reported.The previously reported component Eosinophils % is no longer being reported.The previously reported component Basophils % is no longer being reported.The previously reported component Absolute Neutrophils is no longer being reported.The previously reported component Absolute Lymphocytes is no longer being reported.The previously reported component Absolute Monocytes is no longer being reported.The previously reported component Absolute Eosinophils is no longer being reported.The previously reported component Absolute Basophils is no longer being reported. Performed By: #### 5 7021-8 ####CALE PARKERTZER L ([id number])[facility] ([facility])[address] [place] [address] MCV (RBC) [Entitic vol] 91 fL Normal 80-100 [facility] Comment on above: Order Comment: The p reviously reported component Neutrophils % is no longer being reported.The previously reported component Lymphocytes % is no longer being reported.The previously reported component Monocytes % is no longer being reported.The previously reported component Eosinophils % is no longer being reported.The previously reported component Basophils % is no longer being reported.The previously reported component Absolute Neutrophils is no longer being reported.The previously reported component Absolute Lymphocytes is no longer being reported.The previously reported component Absolute Monocytes is no longer being reported.The previously reported component Absolute Eosinophils is no longer being reported.The previously reported component Absolute Basophils is no longer being reported. Performed By: #### 5 7021-8 ####CALE TOSCANOMOTZER L ([id number])[facility] ([facility])[address] [place] [address] Nucleated RBC/100 WBC (Bld) [Ratio] 0.0 /100 WBCs Normal 0.0-0.0 [facility] Comment on above: Order Comment: The p reviously reported component Neutrophils % is no longer being reported.The previously reported component Lymphocytes % is no longer being reported.The previously reported component Monocytes % is no longer being reported.The previously reported component Eosinophils % is no longer being reported.The previously reported component Basophils % is no longer being reported.The previously reported component Absolute Neutrophils is no longer being reported.The previously reported component Absolute Lymphocytes is no longer being reported.The previously reported component Absolute Monocytes is no longer being reported.The previously reported component Absolute Eosinophils is no longer being reported.The previously reported component Absolute Basophils is no longer being reported. Performed By: #### 5 7021-8 ####CALE Roth ([id number])[facility] ([facility])[address] [place] [address] Platelets (Bld) [#/Vol] 200 x10*3/uL Normal 150-450 [facility] Comment on above: Order Comment: The p reviously reported component Neutrophils % is no longer being reported.The previously reported component Lymphocytes % is no longer being reported.The previously reported component Monocytes % is no longer being reported.The previously reported component Eosinophils % is no longer being reported.The previously reported component Basophils % is no longer being reported.The previously reported component Absolute Neutrophils is no longer being reported.The previously reported component Absolute Lymphocytes is no longer being reported.The previously reported component Absolute Monocytes is no longer being reported.The previously reported component Absolute Eosinophils is no longer being reported.The previously reported component Absolute Basophils is no longer being reported. Performed By: #### 5 7021-8 ####CALE CIA L ([id number])[facility] ([facility])[address] [place] [address] RBC (Bld) [#/Vol] 4.03 x10*6/uL Normal 4.00-5.20 [facility] Comment on above: Order Comment: The p reviously reported component Neutrophils % is no longer being reported.The previously reported component Lymphocytes % is no longer being reported.The previously reported component Monocytes % is no longer being reported.The previously reported component Eosinophils % is no longer being reported.The previously reported component Basophils % is no longer being reported.The previously reported component Absolute Neutrophils is no longer being reported.The previously reported component Absolute Lymphocytes is no longer being reported.The previously reported component Absolute Monocytes is no longer being reported.The previously reported component Absolute Eosinophils is no longer being reported.The previously reported component Absolute Basophils is no longer being reported. Performed By: #### 5 7021-8 ####CALE TOSCANOMOTZER L ([id number])[facility] ([facility])[address] [place] [address] WBC (Bld) [#/Vol] 12.6 x10*3/uL High 4.4-11.3 [facility] Comment on above: Order Comment: The p reviously reported component Neutrophils % is no longer being reported.The previously reported component Lymphocytes % is no longer being reported.The previously reported component Monocytes % is no longer being reported.The previously reported component Eosinophils % is no longer being reported.The previously reported component Basophils % is no longer being reported.The previously reported component Absolute Neutrophils is no longer being reported.The previously reported component Absolute Lymphocytes is no longer being reported.The previously reported component Absolute Monocytes is no longer being reported.The previously reported component Absolute Eosinophils is no longer being reported.The previously reported component Absolute Basophils is no longer being reported. Performed By: #### 5 7021-8 ####CALE Roth ([id number])[facility] ([facility])[id number] [place] [address] CSF CELL COUNTon 03-08-2025 Appearance (CSF) Turbid Abnormal Clear [facility] Comment on above: Order Comment: CSF c ell count reference ranges have not been established by [facility]. Based on published references. Performed By: #### C TCS4 ####CALE RUTLEDGEER L ([id number])[facility] ([facility])[address] [place] [address] Color (CSF) Red Abnormal Colorless [facility] Comment on above: Order Comment: CSF c ell count reference ranges have not been established by [facility]. Based on published references. Performed By: #### C TCS4 ####CALE TOSCANOMOTZER L ([id number])[facility] ([facility])[address] [place] [address] Color (Spun CSF) Xanthochromic Normal [facility] Comment on above: Order Comment: CSF c ell count reference ranges have not been established by [facility]. Based on published references. Performed By: #### C TCS4 ####CALE TOSCANOMOTZER L ([id number])[facility] ([facility])[address] [place] [address] RBC Auto (CSF) [#/Vol] 56796 /uL High 0-5 [facility] Comment on above: Order Comment: CSF c ell count reference ranges have not been established by [facility]. Based on published references. Performed By: #### C TCS4 ####CALE Roth ([id number])[facility] ([facility])[id number] [place] [address] Tube number Nom (CSF) [ID] Unspecified Normal [facility] Comment on above: Order Comment: CSF c ell count reference ranges have not been established by [facility]. Based on published references. Performed By: #### C TCS4 ####CALE Roth ([id number])[facility] ([facility])[address] [place] [address] WBC Auto (CSF) [#/Vol] 5 /uL Normal 1-5 [facility] Comment on above: Order Comment: CSF c ell count reference ranges have not been established by [facility]. Based on published references. Performed By: #### C TCS4 ####CALE Roth ([id number])[facility] ([facility])[id number] [place] [address] CSF DIFFERENTIALon 5 Cells Counted Total (CSF) [#] 38 Normal [facility] Comment on above: Order Comment: CSF c ell differential reference ranges have not been established by [facility]. Based on published references. Performed By: #### D FCSF ####CALE Roth ([id number])[facility] ([facility])[address] [place] [address] Lymphocytes/100 WBC Manual cnt (CSF) 42 % Normal 28-96 [facility] Comment on above: Order Comment: CSF c ell differential reference ranges have not been established by [facility]. Based on published references. Performed By: #### D FCSF ####CALE Roth ([id number])[facility] ([facility])[address] [place] [address] Monocytes+Macrophage s/100 WBC Manual cnt (CSF) 16 % Normal 16-56 [facility] Comment on above: Order Comment: CSF c ell differential reference ranges have not been established by [facility]. Based on published references. Performed By: #### D FCSF ####CALE Roth ([id number])[facility] ([facility])[address] [place] [address] Segmented neutrophils/100 WBC Manual cnt (CSF) 42 % High 0-5 [facility] Comment on above: Order Comment: CSF c ell differential reference ranges have not been established by [facility]. Based on published references. Performed By: #### D FCSF ####CALE Roth ([id number])[facility] ([facility])[address] [place] [address] CT HEAD WO IV CONTRASTon CT HEAD WO IV CONTRAST Normal [facility] Calcium.ionizedon 03-08-2025 Calcium.ionized (Bld) [Moles/Vol] 1.18 mmol/L Normal 1.1-1.33 [facility] Comment on above: Result Comment: The performance characteristics of ionized calcium testedin heparinized plasma or serum have been validated [facility] where [facility].Testing on heparinized plasma or serum is not approved bythe FDA; however, such approval is not necessary. Performed By: #### 1 994-3 ####CALE Roth ([id number])[facility] ([facility])[address] [place] [address] Glucoseon 03-08-2025 Glucose (CSF) [Mass/Vol] 84 mg/dL High 40-70 [facility] Comment on above: Performed By: #### 2 342-4 ####CALE Roth ([id number])[facility] ([facility])[address] [place] [address] Glucose Test strip manual (B ld) [Mass/Vol]on 03-08-2025 Glucose [Mass/Vol] 133 mg/dL High 74-[address] [facility] Comment on above: Performed By: #### 2 341-6 ####CALE Roth ([id number])[facility] ([facility])[address] [place] [address] Glucose [Mass/Vol] 119 mg/dL High 74-[address] [facility] Comment on above: Performed By: #### 2 341-6 ####CALE Roth ([id number])[facility] ([facility])[address] [place] [address] Glucose [Mass/Vol] 127 mg/dL High 74-[address] [facility] Comment on above: Performed By: #### 2 341-6 ####CALE Roth ([id number])[facility] ([facility])[address] [place] [address] Glucose [Mass/Vol] 124 mg/dL High 74-[address] [facility] Comment on above: Performed By: #### 2 341-6 ####CALE Roth ([id number])[facility] ([facility])[address] [place] [address] Glucose [Mass/Vol] 127 mg/dL High [address] [place] [address] Comment on above: Performed By: #### 2 341-6 ####CALE Roth ([id number])[facility] ([facility])[address] [place] [address] Glucose [Mass/Vol] 135 mg/dL High [address] [place] [address] Comment on above: Performed By: #### 2 341-6 ####CALE Roth ([id number])[facility] ([facility])[address] [place] [address] Glucose [Mass/Vol] 124 mg/dL High [address] [place] [address] Comment on above: Performed By: #### 2 341-6 ####CALE Roth ([id number])[facility] ([facility])[address] [place] [address] Human metapneumovirus RNAon 03-08-2025 hMPV RNA JOSE+probe Ql (Unsp spec) Not detected Normal Not detected [facility] Comment on above: Order Comment: This assay is an FDA-cleared multiplex real- time PCR (RT-PCR) in vitro diagnostic test for the qualitative detection and differentiation of Adenovirus (AdV), human Metapneumovirus (hMPV), and Rhinovirus (RV), from nasopharyngeal swab specimens in symptomatic patients. Negative results do not preclude human Metapneumovirus infections and should not be used as the sole basis for treatment or other management decisions Performed By: #### 3 8917-1 ####CALE Roth ([id number])[facility] ([facility])[address] [place] [address] Influenza virus Aon 03-08-20 25 FLUAV RNA JOSE+probe Ql (Resp) Not detected Normal Not Detected [facility] Comment on above: Order Comment: This assay is an FDA-cleared, in vitro diagnostic nucleic acid amplification test for the qualitative detection and differentiation of SARS CoV-2/ Influenza A/B/ RSV from nasopharyngeal specimens collected from individuals with signs and symptoms of respiratory tract infections, and has been validated for use at [facility]. Negative results do not preclude COVID-19/ Influenza A/B/ RSV infections and should not be used as the sole basis for diagnosis, treatment, or other management decisions. Testing for SARS CoV-2 is recommended only for patients who meet current clinical and/or epidemiological criteria defined by federal, state, or local public health directives. Performed By: #### 9 5941-1 ####CALE Roth ([id number])[facility] ([facility])[address] [place], [place] [id number] FLUBV RNA JOSE+probe Ql (Resp) Not detected Normal Not Detected [facility] Comment on above: Order Comment: This assay is an FDA-cleared, in vitro diagnostic nucleic acid amplification test for the qualitative detection and differentiation of SARS CoV-2/ Influenza A/B/ RSV from nasopharyngeal specimens collected from individuals with signs and symptoms of respiratory tract infections, and has been validated for use at [facility]. Negative results do not preclude COVID-19/ Influenza A/B/ RSV infections and should not be used as the sole basis for diagnosis, treatment, or other management decisions. Testing for SARS CoV-2 is recommended only for patients who meet current clinical and/or epidemiological criteria defined by federal, state, or local public health directives. Performed By: #### 9 5941-1 ####CALE Roth ([id number])[facility] ([facility])[address] [place] [address] RSV RNA JOSE+probe Ql (Resp) Not detected Normal Not Detected [facility] Comment on above: Order Comment: This assay is an FDA-cleared, in vitro diagnostic nucleic acid amplification test for the qualitative detection and differentiation of SARS CoV-2/ Influenza A/B/ RSV from nasopharyngeal specimens collected from individuals with signs and symptoms of respiratory tract infections, and has been validated for use at [facility]. Negative results do not preclude COVID-19/ Influenza A/B/ RSV infections and should not be used as the sole basis for diagnosis, treatment, or other management decisions. Testing for SARS CoV-2 is recommended only for patients who meet current clinical and/or epidemiological criteria defined by federal, state, or local public health directives. Performed By: #### 9 5941-1 ####CALE Roth ([id number])[facility] ([facility])[address] [place] [address] SARS-CoV-2 (COVID-19) RNA JOSE+probe Ql (Resp) Not detected Normal Not Detected [facility] Comment on above: Order Comment: This assay is an FDA-cleared, in vitro diagnostic nucleic acid amplification test for the qualitative detection and differentiation of SARS CoV-2/ Influenza A/B/ RSV from nasopharyngeal specimens collected from individuals with signs and symptoms of respiratory tract infections, and has been validated for use at [facility]. Negative results do not preclude COVID-19/ Influenza A/B/ RSV infections and should not be used as the sole basis for diagnosis, treatment, or other management decisions. Testing for SARS CoV-2 is recommended only for patients who meet current clinical and/or epidemiological criteria defined by federal, state, or local public health directives. Performed By: #### 9 5941-1 ####CALE Roth ([id number])[facility] ([facility])[address] [place] [address] Magnesiumon 03-08-2025 Magnesium [Mass/Vol] 2.17 mg/dL Normal 1.60-2.40 [facility] Comment on above: Performed By: #### 1 9123-9 ####CALE Roth ([id number])[facility] ([facility])[address] [place] [address] Manual differential performe d Ql (Bld)on 03-08-2025 Band form neutrophils (Bld) [#/Vol] 0.87 x10*3/uL High 0.00-0.70 [facility] Comment on above: Performed By: #### 5 0957-0 ####CALE Roth ([id number])[facility] ([facility])[address] [place] [address] Band form neutrophils/100 WBC (Bld) 6.9 % Normal 0.0-5.0 [facility] Comment on above: Performed By: #### 5 57-0 ####CALE Roth ([id number])[facility] ([facility])[address] [place] [address] Basophils (Bld) [#/Vol] 0.00 x10*3/uL Normal 0.00-0.10 [facility] Comment on above: Performed By: #### 5 57-0 ####CALE Roth ([id number])[facility] ([facility])[address] [place] [address] Basophils/100 WBC (Bld) 0.0 % Normal 0.0-2.0 [facility] Comment on above: Performed By: #### 5 57-0 ####CALE Roth ([id number])[facility] ([facility])[address] [place] [address] Blasts Manual cnt (Bld) [#/Vol] 0.00 x10*3/uL Normal 0.00-0.00 [facility] Comment on above: Performed By: #### 5 57-0 ####CALE Roth ([id number])[facility] ([facility])[address] [place] [address] Blasts/100 WBC (Bld) 0.0 % Normal 0.0-0.0 [facility] Comment on above: Performed By: #### 5 57-0 ####CALE Roth ([id number])[facility] ([facility])[address] [place] [address] Cells Counted Total (Bld) [#] 116 Normal [facility] Comment on above: Performed By: #### 5 57-0 ####CALE Roth ([id number])[facility] ([facility])[address] [place] [address] Eosinophils (Bld) [#/Vol] 0.00 x10*3/uL Normal 0.00-0.70 [facility] Comment on above: Performed By: #### 5 57-0 ####CALE Roth ([id number])[facility] ([facility])[address] [place] [address] Eosinophils/100 WBC (Bld) 0.0 % Normal 0.0-6.0 [facility] Comment on above: Performed By: #### 5 57-0 ####CALE Roth ([id number])[facility] ([facility])[address] [place] [address] Lymphocytes (Bld) [#/Vol] 1.30 x10*3/uL Normal 1.20-4.80 [facility] Comment on above: Performed By: #### 5 57-0 ####CALE Roth ([id number])[facility] ([facility])[address] [place] [address] Lymphocytes/100 WBC (Bld) 10.3 % Normal 13.0-44.0 [facility] Comment on above: Performed By: #### 5 57-0 ####CALE Roth ([id number])[facility] ([facility])[address] [place] [address] Metamyelocytes (Bld) [#/Vol] 0.00 x10*3/uL Normal 0.00-0.00 [facility] Comment on above: Performed By: #### 5 0957-0 ####CALE Roth ([id number])[facility] ([facility])[address] [place] [address] Metamyelocytes/100 WBC (Bld) 0.0 % Normal 0.0-0.0 [facility] Comment on above: Performed By: #### 5 0957-0 ####CALE Roth ([id number])[facility] ([facility])[address] [place] [address] Monocytes (Bld) [#/Vol] 0.54 x10*3/uL Normal 0.10-1.00 [facility] Comment on above: Performed By: #### 5 57-0 ####CALE Roth ([id number])[facility] ([facility])[address] [place] [address] Monocytes/100 WBC (Bld) 4.3 % Normal 2.0-10.0 [facility] Comment on above: Performed By: #### 5 57-0 ####CALE Roth ([id number])[facility] ([facility])[address] [place] [address] Myelocytes (Bld) [#/Vol] 0.00 x10*3/uL Normal 0.00-0.00 [facility] Comment on above: Performed By: #### 5 57-0 ####CALE Roth ([id number])[facility] ([facility])[address] [place] [address] Myelocytes/100 WBC (Bld) 0.0 % Normal 0.0-0.0 [facility] Comment on above: Performed By: #### 5 57-0 ####CALE Roth ([id number])[facility] ([facility])[address] [place] [address] Neutrophils (Bld) [#/Vol] 10.76 x10*3/uL High 1.20-7.70 [facility] Comment on above: Performed By: #### 5 57-0 ####CALE Roth ([id number])[facility] ([facility])[address] [place] [address] Nucleated RBC/100 WBC (Bld) [Ratio] 0.0 % Normal 0.0-0.0 [facility] Comment on above: Performed By: #### 5 57-0 ####CALE Roth ([id number])[facility] ([facility])[address] [place] [address] Ovalocytes LM Ql (Bld) Few Normal [facility] Comment on above: Performed By: #### 5 57-0 ####CALE Roth ([id number])[facility] ([facility])[address] [place] [address] Plasma cells (Bld) [#/Vol] 0.00 x10*3/uL Normal 0.00-0.00 [facility] Comment on above: Performed By: #### 5 57-0 ####CALE Roth ([id number])[facility] ([facility])[address] [place] [address] Plasma cells/100 WBC Manual cnt (Bld) 0.0 % Normal 0.00-0.00 [facility] Comment on above: Performed By: #### 5 57-0 ####CALE Roth ([id number])[facility] ([facility])[address] [place] [address] Promyelocytes (Bld) [#/Vol] 0.00 x10*3/uL Normal 0.00-0.00 [facility] Comment on above: Performed By: #### 5 57-0 ####CALE Roth ([id number])[facility] ([facility])[address] [place] [address] Promyelocytes/100 WBC (Bld) 0.0 % Normal 0.0-0.0 [facility] Comment on above: Performed By: #### 5 57-0 ####CALE Roth ([id number])[facility] ([facility])[address] [place] [address] RBC morphology finding Nom (Bld) See Below [facility] Comment on above: Performed By: #### 5 57-0 ####CALE Roth ([id number])[facility] ([facility])[address] [place] [address] Segmented neutrophils (Bld) [#/Vol] 9.89 x10*3/uL High 1.20-7.00 [facility] Comment on above: Performed By: #### 5 0957-0 ####CALE Roth ([id number])[facility] ([facility])[address] [place] [address] Segmented neutrophils/100 WBC (Bld) 78.5 % Normal 40.0-80.0 [facility] Comment on above: Result Comment: Perc ent differential counts (%) should be interpreted in the context of the absolute cell counts (cells/uL). Performed By: #### 5 0957-0 ####CALE Roth ([id number])[facility] ([facility])[address] [place] [address] Variant lymphocytes (Bld) [#/Vol] 0.00 x10*3/uL Normal 0.00-0.50 [facility] Comment on above: Performed By: #### 5 0957-0 ####CALE Roth ([id number])[facility] ([facility])[address] [place] [address] Variant lymphocytes/100 WBC (Bld) 0.0 % Normal 0.0-2.0 [facility] Comment on above: Performed By: #### 5 0957-0 ####CALE Roth ([id number])[facility] ([facility])[address] [place] [address] WBC other Manual cnt (Bld) [#/Vol] 0.00 x10*3/uL Normal [facility] Comment on above: Performed By: #### 5 0957-0 ####CALE Roth ([id number])[facility] ([facility])[address] [place] [address] WBC other/100 WBC (Bld) 0.0 % Normal [facility] Comment on above: Performed By: #### 5 0957-0 ####CALE Roth ([id number])[facility] ([facility])[address] [place] [address] Parainfluenza virus RNA JOSE+ probe Ql (Upper resp)on 03-08-2025 Parainfluenza virus 1 RNA JOSE+probe Ql (Unsp spec) Not detected Normal Not Detected, Invalid [facility] Comment on above: Order Comment: This assay is an FDA-cleared multiplex real- time PCR (RT-PCR) in vitro diagnostic test for the qualitative detection and differentiation of Parainfluenza virus 1, 2 3 & 4, from nasopharyngeal swab specimens in symptomatic patients. Negative results do not preclude Parainfluenza infections and should not be used as the sole basis for treatment or other management decisions. Performed By: #### 9 1798-9 ####CALE Roth ([id number])[facility] ([facility])[address] [place] [address] Parainfluenza virus 2 RNA JOSE+probe Ql (Unsp spec) Not detected Normal Not Detected, Invalid [facility] Comment on above: Order Comment: This assay is an FDA-cleared multiplex real- time PCR (RT-PCR) in vitro diagnostic test for the qualitative detection and differentiation of Parainfluenza virus 1, 2 3 & 4, from nasopharyngeal swab specimens in symptomatic patients. Negative results do not preclude Parainfluenza infections and should not be used as the sole basis for treatment or other management decisions. Performed By: #### 9 1798-9 ####CALE Roth ([id number])[facility] ([facility])[address] [place] [address] Parainfluenza virus 3 RNA JOSE+probe Ql (Unsp spec) Not detected Normal Not Detected, Invalid [facility] Comment on above: Order Comment: This assay is an FDA-cleared multiplex real- time PCR (RT-PCR) in vitro diagnostic test for the qualitative detection and differentiation of Parainfluenza virus 1, 2 3 & 4, from nasopharyngeal swab specimens in symptomatic patients. Negative results do not preclude Parainfluenza infections and should not be used as the sole basis for treatment or other management decisions. Performed By: #### 9 1798-9 ####CALE Roth ([id number])[facility] ([facility])[address] [place] [address] Parainfluenza virus 4 RNA JOSE+probe Ql (Unsp spec) Not detected Normal Not Detected, Invalid [facility] Comment on above: Order Comment: This assay is an FDA-cleared multiplex real- time PCR (RT-PCR) in vitro diagnostic test for the qualitative detection and differentiation of Parainfluenza virus 1, 2 3 & 4, from nasopharyngeal swab specimens in symptomatic patients. Negative results do not preclude Parainfluenza infections and should not be used as the sole basis for treatment or other management decisions. Performed By: #### 9 1798-9 ####CALE Roth ([id number])[facility] ([facility])[address] [place] [address] Procalcitoninon 03-08-2025 Procalcitonin [Mass/Vol] 0.21 ng/mL High <=0.07 [facility] Comment on above: Order Comment: Proca lcitonin (PCT) results measured serially canaid in decision-making for antibiotic discontinuation inpatients with suspected or confirmed sepsis in conjunctionwith additional clinical information. Antibioticdiscontinuation may be considered with a change in PCT of>80% from the peak result or when PCT falls below 0.50 ng/mL.Procalcitonin results should not be used in isolation butshould be interpreted in conjunction with additional clinicaland laboratory findings. Procalcitonin results should not beused to guide the initiation of antibiotic therapy.Falsely low PCT values in the presence of bacterial infectionmay occur in early infection, with atypical pathogens,localized infections, and subacute infectious endocarditis.Falsely elevated results outside of severe bacterialinfection/sepsis may be seen in patients with renal failureor insufficiency, severe trauma or hunter, recent majorabdominal/cardiac surgery, acute multi-organ failure, rarelyin patients with medullary thyroid carcinoma and rareneuroendocrine tumors, and non-specific interfering antibodies(heterophile antibodies, rheumatoid factor, human anti-mouseantibodies (HAMA), etc).Performance of the PCT test in pediatric patients (<18yo), women, immunocompromised patients, and patients onimmunomodulatory medications has not been evaluated. Performed By: #### 3 3959-8 ####CALE Roth ([id number])[facility] ([facility])[address] [place] [address] Proteinon 03-08-2025 Protein (CSF) [Mass/Vol] 61 mg/dL High 15-45 [facility] Comment on above: Performed By: #### 2 880-3 ####CALE Roth ([id number])[facility] ([facility])[address] [place] [address] Renal function 2000 panelon 03-08-2025 Albumin BCP dye [Mass/Vol] 3.9 g/dL Normal 3.4-5.0 [facility] Comment on above: Performed By: #### 2 4362-6 ####CALE Roth ([id number])[facility] ([facility])[address] [place] [address] Anion gap [Moles/Vol] 11 mmol/L Normal 10-20 [facility] Comment on above: Performed By: #### 2 4362-6 ####CALE Roth ([id number])[facility] ([facility])[address] [place] [address] Calcium [Mass/Vol] 9.2 mg/dL Normal 8.6-10.[address] [facility] Comment on above: Performed By: #### 2 4362-6 ####CLAE Roth ([id number])[facility] ([facility])[address] [place] [address] Chloride [Moles/Vol] 107 mmol/L Normal 98-107 [facility] Comment on above: Performed By: #### 2 4362-6 ####CALE Roth ([id number])[facility] ([facility])[address] [place] [address] CO2 [Moles/Vol] 27 mmol/L Normal 21-32 [facility] Comment on above: Performed By: #### 2 4362-6 ####CALE Roth ([id number])[facility] ([facility])[address] [place] [address] Creatinine [Mass/Vol] 0.46 mg/dL Low 0.50-1.05 [facility] Comment on above: Performed By: #### 2 4362-6 ####CALE Roth ([id number])[facility] ([facility])[address] [place] [address] Glomerular filtration rate >90 Normal >60 [facility] Comment on above: Result Comment: Calc ulations of estimated GFR are performed using the 2020 CKD-EPI Study Refit equation without the race variable for the IDMS-Traceable creatinine methods.https://jasn.asnjournals.org/content//ASN .8376400778 Performed By: #### 2 4362-6 ####CALE Roth ([id number])[facility] ([facility])[address] [place] [address] Glucose [Mass/Vol] 151 mg/dL High 74-[address] [facility] Comment on above: Performed By: #### 2 4362-6 ####CALE Roth ([id number])[facility] ([facility])[address] [place] [address] Phosphate [Mass/Vol] 3.0 mg/dL Normal 2.5-4.9 [facility] Comment on above: Performed By: #### 2 4362-6 ####CALE CAI L ([id number])[facility] ([facility])[address] [place] [address] Potassium [Moles/Vol] 3.7 mmol/L Normal 3.5-5.3 [facility] Comment on above: Performed By: #### 2 4362-6 ####CALE CAI L ([id number])[facility] ([facility])[address] [place] [address] Urea nitrogen [Mass/Vol] 15 mg/dL Normal 6-23 [facility] Comment on above: Performed By: #### 2 4362-6 ####CALE Roth ([id number])[facility] ([facility])[address] [place] [address] Rhinovirus RNAon 03-08-2025 Rhinovirus RNA JOES+probe Ql (Upper resp) Not detected Normal Not Detected [facility] Comment on above: Order Comment: This assay is an FDA-cleared multiplex real- time PCR (RT-PCR) in vitro diagnostic test for the qualitative detection and differentiation of Adenovirus (AdV), human Metapneumovirus (hMPV), and Rhinovirus (RV), from nasopharyngeal swab specimens in symptomatic patients. Negative results do not preclude Rhinovirus infections and should not be used as the sole basis for treatment or other management decisions. Performed By: #### 9 1793-0 ####CALE Roth ([id number])[facility] ([facility])[address] [place] [address] Sodiumon 03-08-2025 Sodium [Moles/Vol] 143 mmol/L Normal 136-[address] [facility] Comment on above: Performed By: #### 2 951-2 ####CALE Roth ([id number])[facility] ([facility])[address] [place] [address] Sodium [Moles/Vol] 141 mmol/L Normal 136-[address] [facility] Comment on above: Performed By: #### 2 951-2 ####CALE Roth ([id number])[facility] ([facility])[address] [place] [address] Sodium [Moles/Vol] 141 mmol/L Normal 136-[address] [facility] Comment on above: Performed By: #### 2 951-2 ####CALE Roth ([id number])[facility] ([facility])[address] [place] [address] Performed By: #### 2 4362-6 ####CALE Roth ([id number])[facility] ([facility])[address] [place] [address] Staphylococcus aureus.methic illin resistant DNAon 03-08-2025 MRSA DNA JOSE+probe Ql (Nose) Staphylococcus aureus.methicillin resistant DNA Not Detected Normal Not Detected [facility] Comment on above: Order Comment: This assay is an FDA-approved in vitro diagnostic nucleic acid amplification test for the detection of methicillin-resistant Staphylococcus aureus (MRSA) DNA directly from nasal swabs in patients at risk for nasal colonization. MRSA NxG is intended to aid in the prevention and control of MRSA infections in healthcare settings. This assay is NOT intended to diagnose, guide, or monitor treatment for MRSA infections, or provide results of susceptibility to methicillin. A negative result does not preclude MRSA nasal colonization. Test performance has not been evaluated in patients less than two years of age. Performed By: #### 9 0001-9 ####CALE Roth ([id number])[facility] ([facility])[address] [place] [address] Triglycerideon 03-08-2025 Triglyceride [Mass/Vol] 81 mg/dL Normal 0-114 [facility] Comment on above: Order Comment: While on propofol. Result Comment: Age Desirable Borderline High Very HighSEX:B mg/dL mg/dL mg/dL mg/dL<=14D 86-277 ---- ---- ----15D-365D 55-277 ---- ---- ----1Y-9Y 0-74 75-99 >=100 ----10Y-19Y 0-89 90-129 >=130 ----20Y-24Y 0-114 115-149 >=150 ---->= 25Y 0-149 150-199 200-499 >=500Venipuncture immediately after or during the administration of Metamizole may lead to falsely low results. Testing should be performed immediately prior to Metamizole dosing. Performed By: #### 2 571-8 ####CALE Roth ([id number])[facility] ([facility])[address] [place] [id number] Urinalysis complete W Reflex Culture panel (U)on 03-08-2025 Appearance (U) Clear Normal Clear [facility] Comment on above: Performed By: #### 5 8077-9 ####CALE Roth ([id number])[facility] ([facility])[address] [place] [address] Bilirubin (U) [Mass/Vol] Negative Normal NEGATIVE [facility] Comment on above: Performed By: #### 5 8077-9 ####CALE Roth ([id number])[facility] ([facility])[address] [place] [address] Color (U) Light-Yellow Normal Light-Yello w, Yellow, Dark-Yellow [facility] Comment on above: Performed By: #### 5 8077-9 ####CALE Roth ([id number])[facility] ([facility])[address] [place] [address] Glucose Auto test strip (U) [Mass/Vol] Normal Normal Normal [facility] Comment on above: Performed By: #### 5 8077-9 ####CALE Roth ([id number])[facility] ([facility])[address] [place] [address] Ketones (U) [Mass/Vol] 40 (2+) Abnormal NEGATIVE [facility] Comment on above: Performed By: #### 5 8077-9 ####CALE Roth ([id number])[facility] ([facility])[address] [place] [address] Leukocyte esterase Auto test strip Ql (U) Negative Normal NEGATIVE [facility] Comment on above: Performed By: #### 5 8077-9 ####CALE Roth ([id number])[facility] ([facility])[address] [place] [address] Nitrite Auto test strip Ql (U) Negative Normal NEGATIVE [facility] Comment on above: Performed By: #### 5 8077-9 ####CALE Roth ([id number])[facility] ([facility])[address] [place] [address] pH (U) 7.0 [pH] Normal 5.0, 5.5, 6.0, 6.5, 7.0, 7.5, 8.0 [facility] Comment on above: Performed By: #### 5 8077-9 ####CALE Roth ([id number])[facility] ([facility])[address]078 [place] [address] Protein (U) [Mass/Vol] Negative Normal NEGATIVE, 10 (TRACE), 20 (TRACE) [facility] Comment on above: Performed By: #### 5 8077-9 ####CALE Roth ([id number])[facility] ([facility])[address] [place] [address] RBC (U) [#/Vol] Negative Normal NEGATIVE [facility] Comment on above: Performed By: #### 5 8077-9 ####CALE Roth ([id number])[facility] ([facility])[address] [place] [address] Specific gravity (U) [Rel density] 1.018 Normal 1.005-1.035 [facility] Comment on above: Performed By: #### 5 8077-9 ####CALE Roth ([id number])[facility] ([facility])[address]117 [place] [address] Urobilinogen (U) [Mass/Vol] Normal Normal Normal [facility] Comment on above: Performed By: #### 5 8077-9 ####CALE Roth ([id number])[facility] ([facility])[address] [place] [address]22[address] XR CHEST 1 VIEWon 03-08-2025 XR CHEST 1 VIEW Normal [facility] CBC W Auto Differential pane l (Bld)on 03-07-2025 Basophils (Bld) [#/Vol] 0.01 x10*3/uL Normal 0.00-0.10 [facility] Comment on above: Performed By: #### 5 7021-8 ####CALE Roth ([id number])[facility] ([facility])[address]31 [place] [address] Basophils/100 WBC (Bld) 0.1 % Normal 0.0-2.0 [facility] Comment on above: Performed By: #### 5 7021-8 ####CALE Roth ([id number])[facility] ([facility])[address] [place] [address] Eosinophils (Bld) [#/Vol] 0.06 x10*3/uL Normal 0.00-0.70 [facility] Comment on above: Performed By: #### 5 7021-8 ####CALE Roth ([id number])[facility] ([facility])[address] [place] [address] Eosinophils/100 WBC (Bld) 0.7 % Normal 0.0-6.0 [facility] Comment on above: Performed By: #### 5 7021-8 ####CALE Roth ([id number])[facility] ([facility])[address] [place] [address] Erythrocyte distribution width (RBC) [Ratio] 12.1 % Normal 11.5-14.5 [facility] Comment on above: Performed By: #### 5 7021-8 ####CALE Roth ([id number])[facility] ([facility])[address] [place] [address] Hematocrit (Bld) [Volume fraction] 32.0 % Low 36.0-46.0 [facility] Comment on above: Performed By: #### 5 7021-8 ####CALE Roth ([id number])[facility] ([facility])[address] [place] [address] 23798 Hemoglobin (Bld) [Mass/Vol] 10.8 g/dL Low 12.0-16.0 [facility] Comment on above: Performed By: #### 5 7021-8 ####CALE Roth ([id number])[facility] ([facility])[address] [place] [address] Immature granulocytes (Bld) [#/Vol] 0.08 x10*3/uL Normal 0.00-0.70 [facility] Comment on above: Performed By: #### 5 7021-8 ####CALE Roth ([id number])[facility] ([facility])[address]294 [place] [address] Immature granulocytes/100 WBC (Bld) 1.0 % High 0.0-0.9 [facility] Comment on above: Result Comment: Aleisha ture Granulocyte Count (IG) includes promyelocytes, myelocytes and metamyelocytes but does not include bands. Percent differential counts (%) should be interpreted in the context of the absolute cell counts (cells/UL). Performed By: #### 5 7021-8 ####CALE Roth ([id number])[facility] ([facility])[address] [place] [address] Lymphocytes (Bld) [#/Vol] 1.03 x10*3/uL Low 1.20-4.80 [facility] Comment on above: Performed By: #### 5 7021-8 ####CALE Roth ([id number])[facility] ([facility])[address]23 [place] [address] Lymphocytes/100 WBC (Bld) 12.5 % Normal 13.0-44.0 [facility] Comment on above: Performed By: #### 5 7021-8 ####CALE Roth ([id number])[facility] ([facility])[address] [place] [address] MCH (RBC) [Entitic mass] 30.2 pg Normal 26.0-34.0 [facility] Comment on above: Performed By: #### 5 7021-8 ####CALE Roth ([id number])[facility] ([facility])[address]184 [place] [address] MCHC (RBC) [Mass/Vol] 33.8 g/dL Normal 32.0-36.0 [facility] Comment on above: Performed By: #### 5 7021-8 ####CALE Roth ([id number])[facility] ([facility])[address]239 [place] [address] MCV (RBC) [Entitic vol] 89 fL Normal 80-100 [facility] Comment on above: Performed By: #### 5 7021-8 ####CALE Roth ([id number])[facility] ([facility])[address]50 [place] [address] Monocytes (Bld) [#/Vol] 0.54 x10*3/uL Normal 0.10-1.00 [facility] Comment on above: Performed By: #### 5 7021-8 ####CALE Roth ([id number])[facility] ([facility])[address]557 [place] [address] Monocytes/100 WBC (Bld) 6.6 % Normal 2.0-10.0 [facility] Comment on above: Performed By: #### 5 7021-8 ####CALE Roth ([id number])[facility] ([facility])[address] [place] [address] Neutrophils (Bld) [#/Vol] 6.51 x10*3/uL Normal 1.20-7.70 [facility] Comment on above: Result Comment: Perc ent differential counts (%) should be interpreted in the context of the absolute cell counts (cells/uL). Performed By: #### 5 7021-8 ####CALE Roth ([id number])[facility] ([facility])[address] [place] [address] Neutrophils/100 WBC (Bld) 79.1 % Normal 40.0-80.0 [facility] Comment on above: Performed By: #### 5 7021-8 ####CALE Roth ([id number])[facility] ([facility])[address] [place] [address] Nucleated RBC/100 WBC (Bld) [Ratio] 0.0 /100 WBCs Normal 0.0-0.0 [facility] Comment on above: Performed By: #### 5 7021-8 ####CALE Roth ([id number])[facility] ([facility])[address] [place] [address] Platelets (Bld) [#/Vol] 144 x10*3/uL Low 150-450 [facility] Comment on above: Performed By: #### 5 7021-8 ####CALE Roth ([id number])[facility] ([facility])[address]16 [place] [address] RBC (Bld) [#/Vol] 3.58 x10*6/uL Low 4.00-5.20 [facility] Comment on above: Performed By: #### 5 7021-8 ####CALE Roth ([id number])[facility] ([facility])[address]655 [place] [address] WBC (Bld) [#/Vol] 8.2 x10*3/uL Normal 4.4-11.3 [facility] Comment on above: Performed By: #### 5 7021-8 ####CAEL Roth ([id number])[facility] ([facility])[address] [place] [address] Calcium.ionizedon 03-07-2025 Calcium.ionized (Bld) [Moles/Vol] 1.21 mmol/L Normal 1.1-1.33 [facility] Comment on above: Result Comment: The performance characteristics of ionized calcium testedin heparinized plasma or serum have been validated [facility] site where testing is performed.Testing on heparinized plasma or serum is not approved [facility] FDA; however, such approval is not necessary. Performed By: #### 1 994-3 ####CALE Roth ([id number])[facility] ([facility])[address] [place] [address] Glucose Test strip manual (B ld) [Mass/Vol]on 03-07-2025 Glucose [Mass/Vol] 132 mg/dL High 74-[address] [facility] Comment on above: Performed By: #### 2 341-6 ####CALE Roth ([id number])[facility] ([facility])[address] [place] [address] Glucose [Mass/Vol] 93 mg/dL Normal 74-[address] [facility] Comment on above: Performed By: #### 2 341-6 ####CALE Roth ([id number])[facility] ([facility])[address] [place], [place] [address] Glucose [Mass/Vol] 102 mg/dL High 74-[address] [facility] Comment on above: Performed By: #### 2 341-6 ####CALE Roth ([id number])[facility] ([facility])[address] [place] [address] Glucose [Mass/Vol] 100 mg/dL High 74-[address] [facility] Comment on above: Performed By: #### 2 341-6 ####CALE Roth ([id number])[facility] ([facility])[address]85 [place] [address] Glucose [Mass/Vol] 108 mg/dL High 74-[address] [facility] Comment on above: Performed By: #### 2 341-6 ####CALE Roth ([id number])[facility] ([facility])[address]591 [place] [address] Magnesiumon 03-07-2025 Magnesium [Mass/Vol] 2.09 mg/dL Normal 1.60-2.40 [facility] Comment on above: Performed By: #### 1 9123-9 ####CALE Roth ([id number])[facility] ([facility])[address]108 [place] [address] Renal function 2000 panelon 03-07-2025 Albumin BCP dye [Mass/Vol] 3.9 g/dL Normal 3.4-5.0 [facility] Comment on above: Performed By: #### 2 4362-6 ####CALE Roth ([id number])[facility] ([facility])[address]84 [place] [address] Anion gap [Moles/Vol] 14 mmol/L Normal 10-20 [facility] Comment on above: Performed By: #### 2 4362-6 ####CALE Roth ([id number])[facility] ([facility])[address] [place] [address] Calcium [Mass/Vol] 8.8 mg/dL Normal 8.6-10.[address] [facility] Comment on above: Performed By: #### 2 4362-6 ####CALE Roth ([id number])[facility] ([facility])[address]36 [place] [address] Chloride [Moles/Vol] 109 mmol/L High 98-107 [facility] Comment on above: Performed By: #### 2 4362-6 ####CALE Roth ([id number])[facility] ([facility])[address] [place] [address] CO2 [Moles/Vol] 24 mmol/L Normal 21-32 [facility] Comment on above: Performed By: #### 2 4362-6 ####CALE Roth ([id number])[facility] ([facility])[address]221 [place] [address] Creatinine [Mass/Vol] 0.44 mg/dL Low 0.50-1.05 [facility] Comment on above: Performed By: #### 2 4362-6 ####CALE Roth ([id number])[facility] ([facility])[address]160 [place] [address] Glomerular filtration rate >90 Normal >60 [facility] Comment on above: Result Comment: Calc ulations of estimated GFR are performed using the 2020 CKD-EPI Study Refit equation without the race variable for the IDMS-Traceable creatinine methods.https://jasn.asnjournals.org/content//ASN .0246451488 Performed By: #### 2 4362-6 ####CALE Roth ([id number])[facility] ([facility])[address]43 [place] [address] Glucose [Mass/Vol] 115 mg/dL High 74-[address] [facility] Comment on above: Performed By: #### 2 4362-6 ####CALE Roth ([id number])[facility] ([facility])[address] [place] [address] Phosphate [Mass/Vol] 2.6 mg/dL Normal 2.5-4.9 [facility] Comment on above: Performed By: #### 2 4362-6 ####CALE Roth ([id number])[facility] ([facility])[address] [place] [address] Potassium [Moles/Vol] 3.5 mmol/L Normal 3.5-5.3 [facility] Comment on above: Performed By: #### 2 4362-6 ####CALE Roth ([id number])[facility] ([facility])[address] [place] [address] Sodium [Moles/Vol] 143 mmol/L Normal 136-[address] [facility] Comment on above: Performed By: #### 2 4362-6 ####CALE Roth ([id number])[facility] ([facility])[address]894 [place] [address] Urea nitrogen [Mass/Vol] 13 mg/dL Normal 6-23 [facility] Comment on above: Performed By: #### 2 4362-6 ####CALE Roth ([id number])[facility] ([facility])[address]408 [place] [address] Sodiumon 03-07-2025 Sodium [Moles/Vol] 140 mmol/L Normal 136-[address] [facility] Comment on above: Performed By: #### 2 951-2 ####CALE Roth ([id number])[facility] ([facility])[address]232 [place] [address] Sodium [Moles/Vol] 141 mmol/L Normal 136-[address] [facility] Comment on above: Performed By: #### 2 951-2 ####CALE Roth ([id number])[facility] ([facility])[address]288 [place] [address] Sodium [Moles/Vol] 141 mmol/L Normal 136-[address] [facility] Comment on above: Performed By: #### 2 951-2 ####CALE Roth ([id number])[facility] ([facility])[address]694 [place] [address] Triglycerideon 03-07-2025 Triglyceride [Mass/Vol] 96 mg/dL Normal 0-114 [facility] Comment on above: Order Comment: While on propofol. Result Comment: Age Desirable Borderline High Very HighSEX:B mg/dL mg/dL mg/dL mg/dL<=14D 86-277 ---- ---- ----15D-365D 55-277 ---- ---- ----1Y-9Y 0-74 75-99 >=100 ----10Y-19Y 0-89 90-129 >=130 ----20Y-24Y 0-114 115-149 >=150 ---->= 25Y 0-149 150-199 200-499 >=500Venipuncture immediately after or during the administration of Metamizole may lead to falsely low results. Testing should be performed immediately prior to Metamizole dosing. Performed By: #### 2 571-8 ####CALE Roth ([id number])[facility] ([facility])[address] [place] [address] CBC W Auto Differential pane l (Bld)on 03-06-2025 Basophils (Bld) [#/Vol] 0.01 x10*3/uL Normal 0.00-0.10 [facility] Comment on above: Performed By: #### 5 7021-8 ####CALE Roth ([id number])[facility] ([facility])[address]704 [place] [address] Basophils/100 WBC (Bld) 0.1 % Normal 0.0-2.0 [facility] Comment on above: Performed By: #### 5 7021-8 ####CALE Roth ([id number])[facility] ([facility])[address]17 [place] [address] Eosinophils (Bld) [#/Vol] 0.02 x10*3/uL Normal 0.00-0.70 [facility] Comment on above: Performed By: #### 5 7021-8 ####CALE Roth ([id number])[facility] ([facility])[address]20 [place] [address] Eosinophils/100 WBC (Bld) 0.2 % Normal 0.0-6.0 [facility] Comment on above: Performed By: #### 5 7021-8 ####CALE Roth ([id number])[facility] ([facility])[address] [place] [address] Erythrocyte distribution width (RBC) [Ratio] 12.2 % Normal 11.5-14.5 [facility] Comment on above: Performed By: #### 5 7021-8 ####CALE Roth ([id number])[facility] ([facility])[address] [place] [address] Hematocrit (Bld) [Volume fraction] 33.2 % Low 36.0-46.0 [facility] Comment on above: Performed By: #### 5 7021-8 ####CALE Roth ([id number])[facility] ([facility])[address] [place] [address] Hemoglobin (Bld) [Mass/Vol] 11.3 g/dL Low 12.0-16.0 [facility] Comment on above: Performed By: #### 5 7021-8 ####CALE Roth ([id number])[facility] ([facility])[address] [place] [address] Immature granulocytes (Bld) [#/Vol] 0.05 x10*3/uL Normal 0.00-0.70 [facility] Comment on above: Performed By: #### 5 7021-8 ####CALE Roth ([id number])[facility] ([facility])[address]13 [place] [address] Immature granulocytes/100 WBC (Bld) 0.5 % Normal 0.0-0.9 [facility] Comment on above: Result Comment: Aleisha ture Granulocyte Count (IG) includes promyelocytes, myelocytes and metamyelocytes but does not include bands. Percent differential counts (%) should be interpreted in the context of the absolute cell counts (cells/UL). Performed By: #### 5 7021-8 ####CALE Roth ([id number])[facility] ([facility])[address]72 [place] [address] Lymphocytes (Bld) [#/Vol] 1.18 x10*3/uL Low 1.20-4.80 [facility] Comment on above: Performed By: #### 5 7021-8 ####CALE Roth ([id number])[facility] ([facility])[address]22 [place] [address] Lymphocytes/100 WBC (Bld) 11.7 % Normal 13.0-44.0 [facility] Comment on above: Performed By: #### 5 7021-8 ####CALE TOSCANOMOISAURA L ([id number])[facility] ([facility])[address]209 [place] [address] MCH (RBC) [Entitic mass] 30.0 pg Normal 26.0-34.0 [facility] Comment on above: Performed By: #### 5 7021-8 ####CALE Roth ([id number])[facility] ([facility])87992 [place] [address] MCHC (RBC) [Mass/Vol] 34.0 g/dL Normal 32.0-36.0 [facility] Comment on above: Performed By: #### 5 7021-8 ####CALE TOSCANOMOISAURA L ([id number])[facility] ([facility])[address]67 [place] [address] MCV (RBC) [Entitic vol] 88 fL Normal 80-100 [facility] Comment on above: Performed By: #### 5 7021-8 ####CALE CAI L ([id number])[facility] ([facility])[address]90 [place] [address] Monocytes (Bld) [#/Vol] 0.73 x10*3/uL Normal 0.10-1.00 [facility] Comment on above: Performed By: #### 5 7021-8 ####CALE PARKERTZER L ([id number])[facility] ([facility])[address]97 [place] [address] Monocytes/100 WBC (Bld) 7.2 % Normal 2.0-10.0 [facility] Comment on above: Performed By: #### 5 7021-8 ####CALE TOSCANOMOTZER L ([id number])[facility] ([facility])[address]52 [place] [address] Neutrophils (Bld) [#/Vol] 8.08 x10*3/uL High 1.20-7.70 [facility] Comment on above: Result Comment: Perc ent differential counts (%) should be interpreted in the context of the absolute cell counts (cells/uL). Performed By: #### 5 7021-8 ####CALE TOSCANOMOTZER L ([id number])[facility] ([facility])[address]773 [place] [address] Neutrophils/100 WBC (Bld) 80.3 % Normal 40.0-80.0 [facility] Comment on above: Performed By: #### 5 7021-8 ####CALE TOSCANOMOBALJITER L ([id number])[facility] ([facility])[address]1962 [place] [address] Nucleated RBC/100 WBC (Bld) [Ratio] 0.0 /100 WBCs Normal 0.0-0.0 [facility] Comment on above: Performed By: #### 5 7021-8 ####CALE TOSCANOMOTZER L ([id number])[facility] ([facility])[address]254 [place] [address] Platelets (Bld) [#/Vol] 164 x10*3/uL Normal 150-450 [facility] Comment on above: Performed By: #### 5 7021-8 ####CALE TOSCANOMOTZER L ([id number])[facility] ([facility])[address]359 [place] [address] RBC (Bld) [#/Vol] 3.77 x10*6/uL Low 4.00-5.20 [facility] Comment on above: Performed By: #### 5 7021-8 ####CALE Roth ([id number])[facility] ([facility])[address]957 [place] [address] WBC (Bld) [#/Vol] 10.1 x10*3/uL Normal 4.4-11.3 [facility] Comment on above: Performed By: #### 5 7021-8 ####CALE Roth ([id number])[facility] ([facility])[address]403 [place] [address] CT ANGIO CHEST FOR PULMONARY EMBOLISMon 03-06-2025 CT ANGIO CHEST FOR PULMONARY EMBOLISM Normal [facility] CT HEAD WO IV CONTRASTon CT HEAD WO IV CONTRAST Normal [facility] Calcium.ionizedon 03-06-2025 Calcium.ionized (Bld) [Moles/Vol] 1.19 mmol/L Normal 1.1-1.33 [facility] Comment on above: Result Comment: The performance characteristics of ionized calcium testedin heparinized plasma or serum have been validated [facility] where [facility] is performed.Testing on heparinized plasma or serum is not approved bythe FDA; however, such approval is not necessary. Performed By: #### 1 994-3 ####CALE Roth ([id number])[facility] ([facility])[address]26 [place] [address] ECG 12-LEADon 03-06-2025 ECG 12-LEAD Ventricular Rate 95 Atrial Rate 95 P-R Interval 162 QRS Duration 80 Q-T Interval 352 QTC Calculation(Bazett) 442 P Thendara 81 R Thendara 91 T Thendara 80 QRS Count 16 Q Onset 219 P Onset 138 P Offset 190 T Offset 395 QTC Fredericia 410 Diagnosis Normal sinus rhythm Rightward axis Borderline ECG When compared with ECG of 06-MAR-2025 05:43, No significant change was found Confirmed by Erasmo Peña ([id number]) on 03/10/2025 12:34:21 PM Normal [facility] Gas and Carbon monoxide and Electrolytes panel (BldA)on 03-06-2025 Anion gap 4 (BldA) [Moles/Vol] 10 mmo/L Normal 10-25 [facility] Comment on above: Performed By: #### 9 3685-6 ####CALE Roth ([id number])[facility] ([facility])[address]297 [place] [address] Base excess Calc (Bld) [Moles/Vol] -1.8000 mmol/L Normal -2.0-3.0 [facility] Comment on above: Performed By: #### 9 3685-6 ####CALE Roth ([id number])[facility] ([facility])[address] [place] [address] Calcium.ionized (BldA) [Moles/Vol] 1.14 mmol/L Normal 1.10-1.33 [facility] Comment on above: Performed By: #### 9 3685-6 ####CALE Roth ([id number])[facility] ([facility])[address]53 [place] [address] Chloride (BldA) [Moles/Vol] 115 mmol/L High 98-107 [facility] Comment on above: Performed By: #### 9 3685-6 ####CALE Roth ([id number])[facility] ([facility])[address]21 [place] [address] CO2 (Bld) [Partial pressure] 39 mm Hg Normal 38-42 [facility] Comment on above: Performed By: #### 9 3685-6 ####CALE Roth ([id number])[facility] ([facility])26794 [place] [address] Glucose [Mass/Vol] 113 mg/dL High 74-[address] [facility] Comment on above: Performed By: #### 9 3685-6 ####CALE Roth ([id number])[facility] ([facility])[address] [place] [address] HCO3 (Bld) [Moles/Vol] 23.1 mmol/L Normal 22.0-26.0 [facility] Comment on above: Performed By: #### 9 3685-6 ####CALE Roth ([id number])[facility] ([facility])[address]683 [place] [address] Hematocrit Est (Bld) [Volume fraction] 33.0 % Low 36.0-46.0 [facility] Comment on above: Performed By: #### 9 3685-6 ####CALE Roth ([id number])[facility] ([facility])13968 [place] [address] Hemoglobin (Bld) [Mass/Vol] 10.9 g/dL Low 12.0-16.0 [facility] Comment on above: Performed By: #### 9 3685-6 ####CALE Roth ([id number])[facility] ([facility])[address] [place] [address] Inhaled oxygen concentration 50 % Normal [facility] Comment on above: Performed By: #### 9 4215-6 ####CALE Roth ([id number])[facility] ([facility])[address]13 [place] [address] Lactate (BldA) [Moles/Vol] 0.5 mmol/L Normal 0.4-2.0 [facility] Comment on above: Performed By: #### 9 3685-6 ####CALE Roth ([id number])[facility] ([facility])[address]3495 [place] [address] Oxygen (Bld) [Partial pressure] 119 mm Hg High 85-95 [facility] Comment on above: Performed By: #### 9 3685-6 ####CALE Roth ([id number])[facility] ([facility])[address]91 [place] [address] Oxyhemoglobin (BldA) [Mass fraction] 98.0 % Normal 94.0-98.0 [facility] Comment on above: Performed By: #### 9 3685-6 ####CALE Roth ([id number])[facility] ([facility])[address]80 [place] [address] pH (Bld) 7.38 [pH] Normal 7.38-7.42 [facility] Comment on above: Performed By: #### 9 3685-6 ####CALE Roth ([id number])[facility] ([facility])[address] [place] [address] Potassium (BldA) [Moles/Vol] 3.6 mmol/L Normal 3.5-5.3 [facility] Comment on above: Performed By: #### 9 3685-6 ####CALE Roth ([id number])[facility] ([facility])[address]331 [place] [address] Sodium (BldA) [Moles/Vol] 144 mmol/L Normal 136-145 [facility] Comment on above: Performed By: #### 9 3685-6 ####CALE Roth ([id number])[facility] ([facility])[address]28 [place] [address] Anion gap 4 (BldA) [Moles/Vol] 12 mmo/L Normal 10-25 [facility] Comment on above: Performed By: #### 9 3685-6 ####CALE Roth ([id number])[facility] ([facility])32681 [place] [address] Base excess Calc (Bld) [Moles/Vol] -0.9000 mmol/L Normal -2.0-3.0 [facility] Comment on above: Performed By: #### 9 3685-6 ####CALE Roth ([id number])[facility] ([facility])[address] [place] [address] Calcium.ionized (BldA) [Moles/Vol] 1.18 mmol/L Normal 1.10-1.33 [facility] Comment on above: Performed By: #### 9 3685-6 ####CALE Roth ([id number])[facility] ([facility])[address]162 [place] [address] Chloride (BldA) [Moles/Vol] 114 mmol/L High 98-107 [facility] Comment on above: Performed By: #### 9 3685-6 ####CALE CAI L ([id number])[facility] ([facility])[address]225 [place] [address] CO2 (Bld) [Partial pressure] 37 mm Hg Low 38-42 [facility] Comment on above: Performed By: #### 9 3685-6 ####CALE Roth ([id number])[facility] ([facility])[address] [place] [address] Glucose [Mass/Vol] 118 mg/dL High 74-[address] [facility] Comment on above: Performed By: #### 9 3685-6 ####CALE CAI L ([id number])[facility] ([facility])[address] [place] [address] HCO3 (Bld) [Moles/Vol] 23.5 mmol/L Normal 22.0-26.0 [facility] Comment on above: Performed By: #### 9 3685-6 ####CALE CAI L ([id number])[facility] ([facility])[address] [place] [address] Hematocrit Est (Bld) [Volume fraction] 35.0 % Low 36.0-46.0 [facility] Comment on above: Performed By: #### 9 3685-6 ####CALE CAI L ([id number])[facility] ([facility])[address] [place] [address]85 Hemoglobin (Bld) [Mass/Vol] 11.7 g/dL Low 12.0-16.0 [facility] Comment on above: Performed By: #### 9 3685-6 ####CALE CAI L ([id number])[facility] ([facility])[address] [place] [address] 71756 Inhaled oxygen concentration 30 % Normal [facility] Comment on above: Performed By: #### 9 3685-6 ####CALE Roth ([id number])[facility] ([facility])[address]60 [place] [address] Lactate (BldA) [Moles/Vol] 0.6 mmol/L Normal 0.4-2.0 [facility] Comment on above: Performed By: #### 9 3685-6 ####CALE Roth ([id number])[facility] ([facility])[address] [place] [address] Oxygen (Bld) [Partial pressure] 67 mm Hg Low 85-95 [facility] Comment on above: Performed By: #### 9 3685-6 ####CALE Roth ([id number])[facility] ([facility])[address] [place] [address] 18032 Oxyhemoglobin (BldA) [Mass fraction] 93.6 % Low 94.0-98.0 [facility] Comment on above: Performed By: #### 9 3685-6 ####CALE Roth ([id number])[facility] ([facility])[address] [place] [address]8598 pH (Bld) 7.41 [pH] Normal 7.38-7.42 [facility] Comment on above: Performed By: #### 9 3685-6 ####CALE Roth ([id number])[facility] ([facility])[address] [place] [address] Potassium (BldA) [Moles/Vol] 4.1 mmol/L Normal 3.5-5.3 [facility] Comment on above: Performed By: #### 9 3685-6 ####CALE Roth ([id number])[facility] ([facility])[address] [place] [address] 87529 Sodium (BldA) [Moles/Vol] 145 mmol/L Normal 136-145 [facility] Comment on above: Performed By: #### 9 3345-6 ####CALE Roth ([id number])[facility] ([facility])[address]86 [place] [address] Anion gap 4 (BldA) [Moles/Vol] 10 mmo/L Normal 10-25 [facility] Comment on above: Performed By: #### 9 3685-6 ####CALE Roth ([id number])[facility] ([facility])[address]81 [place] [address] Base excess Calc (Bld) [Moles/Vol] -0.9000 mmol/L Normal -2.0-3.0 [facility] Comment on above: Performed By: #### 9 3685-6 ####CALE Roth ([id number])[facility] ([facility])[address]859 [place] [address] Calcium.ionized (BldA) [Moles/Vol] 1.16 mmol/L Normal 1.10-1.33 [facility] Comment on above: Performed By: #### 9 3685-6 ####CALE Roth ([id number])[facility] ([facility])[address] [place] [address] Chloride (BldA) [Moles/Vol] 115 mmol/L High 98-107 [facility] Comment on above: Performed By: #### 9 3685-6 ####CALE Roth ([id number])[facility] ([facility])[address] [place] [address] CO2 (Bld) [Partial pressure] 37 mm Hg Low 38-42 [facility] Comment on above: Performed By: #### 9 3685-6 ####CALE Roth ([id number])[facility] ([facility])[address] [place] [address] Glucose [Mass/Vol] 117 mg/dL High 74-[address] [facility] Comment on above: Performed By: #### 9 3685-6 ####CALE Roth ([id number])[facility] ([facility])[address] [place] [address] HCO3 (Bld) [Moles/Vol] 23.5 mmol/L Normal 22.0-26.0 [facility] Comment on above: Performed By: #### 9 3685-6 ####CALE Roth ([id number])[facility] ([facility])[address] [place] [address] Hematocrit Est (Bld) [Volume fraction] 35.0 % Low 36.0-46.0 [facility] Comment on above: Performed By: #### 9 3685-6 ####CALE Roth ([id number])[facility] ([facility])[address] [place] [address] Hemoglobin (Bld) [Mass/Vol] 11.8 g/dL Low 12.0-16.0 [facility] Comment on above: Performed By: #### 9 3685-6 ####CALE Roth ([id number])[facility] ([facility])[id number] [place] [id number] Inhaled oxygen concentration 60 % Normal [facility] Comment on above: Performed By: #### 9 3685-6 ####CALE Roth ([id number])[facility] ([facility])[address] [place] [address] Lactate (BldA) [Moles/Vol] 0.6 mmol/L Normal 0.4-2.0 [facility] Comment on above: Performed By: #### 9 3685-6 ####CALE Roth ([id number])[facility] ([facility])[address] [place] [address] Oxygen (Bld) [Partial pressure] 94 mm Hg Normal 85-95 [facility] Comment on above: Performed By: #### 9 3685-6 ####CALE Roth ([id number])[facility] ([facility])[address] [place] [address] Oxyhemoglobin (BldA) [Mass fraction] 96.6 % Normal 94.0-98.0 [facility] Comment on above: Performed By: #### 9 3685-6 ####CALE Roth ([id number])[facility] ([facility])[address] [place] [address] pH (Bld) 7.41 [pH] Normal 7.38-7.42 [facility] Comment on above: Performed By: #### 9 3685-6 ####CALE Roth ([id number])[facility] ([facility])[address] [place] [address] Potassium (BldA) [Moles/Vol] 3.9 mmol/L Normal 3.5-5.3 [facility] Comment on above: Performed By: #### 9 3685-6 ####CALE Roth ([id number])[facility] ([facility])[address] [place] [address] Sodium (BldA) [Moles/Vol] 145 mmol/L Normal 136-145 [facility] Comment on above: Performed By: #### 9 9755-6 ####CALE Roth ([id number])[facility] ([facility])[address] [place] [address] Anion gap 4 (BldA) [Moles/Vol] 11 mmo/L Normal 10-25 [facility] Comment on above: Performed By: #### 9 3685-6 ####CALE Roth ([id number])[facility] ([facility])[address] [place] [address] Base excess Calc (Bld) [Moles/Vol] -1.2000 mmol/L Normal -2.0-3.0 [facility] Comment on above: Performed By: #### 9 3685-6 ####CALE Roth ([id number])[facility] ([facility])[address] [place] [address] Calcium.ionized (BldA) [Moles/Vol] 1.15 mmol/L Normal 1.10-1.33 [facility] Comment on above: Performed By: #### 9 0415-6 ####CALE Roth ([id number])[facility] ([facility])[address] [place] [address] Chloride (BldA) [Moles/Vol] 115 mmol/L High 98-107 [facility] Comment on above: Performed By: #### 9 3685-6 ####CALE Roth ([id number])[facility] ([facility])[address] [place] [address] CO2 (Bld) [Partial pressure] 34 mm Hg Low 38-42 [facility] Comment on above: Performed By: #### 9 3685-6 ####CALE Roth ([id number])[facility] ([facility])[address] [place] [address] Glucose [Mass/Vol] 117 mg/dL High 74-[address] [facility] Comment on above: Performed By: #### 9 3685-6 ####CALE Roth ([id number])[facility] ([facility])[address] [place] [address] HCO3 (Bld) [Moles/Vol] 22.6 mmol/L Normal 22.0-26.0 [facility] Comment on above: Performed By: #### 9 3685-6 ####CALE Roth ([id number])[facility] ([facility])[address]26 [place] [address] Hematocrit Est (Bld) [Volume fraction] 36.0 % Normal 36.0-46.0 [facility] Comment on above: Performed By: #### 9 3685-6 ####CALE Roth ([id number])[facility] ([facility])[address]67 [place] [address] Hemoglobin (Bld) [Mass/Vol] 11.9 g/dL Low 12.0-16.0 [facility] Comment on above: Performed By: #### 9 3685-6 ####CALE Roth ([id number])[facility] ([facility])[address] [place] [address] Inhaled oxygen concentration 50 % Normal [facility] Comment on above: Performed By: #### 9 3685-6 ####CALE Roth ([id number])[facility] ([facility])[address]293 [place] [address] Lactate (BldA) [Moles/Vol] 0.6 mmol/L Normal 0.4-2.0 [facility] Comment on above: Performed By: #### 9 3685-6 ####CALE Roth ([id number])[facility] ([facility])[address] [place] [address] Oxygen (Bld) [Partial pressure] 72 mm Hg Low 85-95 [facility] Comment on above: Performed By: #### 9 3685-6 ####CALE Roth ([id number])[facility] ([facility])[address] [place] [address] Oxyhemoglobin (BldA) [Mass fraction] 94.7 % Normal 94.0-98.0 [facility] Comment on above: Performed By: #### 9 0505-6 ####CALE Roth ([id number])[facility] ([facility])[address]95 [place] [address] pH (Bld) 7.43 [pH] High 7.38-7.42 [facility] Comment on above: Performed By: #### 9 3685-6 ####CALE Roth ([id number])[facility] ([facility])[address]22 [place] [address] Potassium (BldA) [Moles/Vol] 3.8 mmol/L Normal 3.5-5.3 [facility] Comment on above: Performed By: #### 9 3085-6 ####CALE Roth ([id number])[facility] ([facility])[address] [place] [address] Sodium (BldA) [Moles/Vol] 145 mmol/L Normal 136-145 [facility] Comment on above: Performed By: #### 9 4825-6 ####CALE Roth ([id number])[facility] ([facility])[address]339 [place] [address] Glucose Test strip manual (B ld) [Mass/Vol]on 03-06-2025 Glucose [Mass/Vol] 97 mg/dL Normal 74-[address] [facility] Comment on above: Performed By: #### 2 341-6 ####CALE Roth ([id number])[facility] ([facility])[address] [place] [address] Glucose [Mass/Vol] 91 mg/dL Normal 74-[address] [facility] Comment on above: Performed By: #### 2 341-6 ####CALE Roth ([id number])[facility] ([facility])[address]39 [place] [address] Glucose [Mass/Vol] 98 mg/dL Normal 74-[address] [facility] Comment on above: Performed By: #### 2 341-6 ####CALE Roth ([id number])[facility] ([facility])[address]89 [place] [address] Glucose [Mass/Vol] 103 mg/dL High 74-[address] [facility] Comment on above: Performed By: #### 2 341-6 ####CALE Roth ([id number])[facility] ([facility])[address]29 [place] [address] Glucose [Mass/Vol] 97 mg/dL Normal 74-[address] [facility] Comment on above: Performed By: #### 2 341-6 ####CALE Roth ([id number])[facility] ([facility])[address]556 [place] [address] Glucose [Mass/Vol] 102 mg/dL High 74-[address] [facility] Comment on above: Performed By: #### 2 341-6 ####CALE Roth ([id number])[facility] ([facility])[address] [place] [address] Magnesiumon 03-06-2025 Magnesium [Mass/Vol] 2.28 mg/dL Normal 1.60-2.40 [facility] Comment on above: Performed By: #### 1 9123-9 ####CALE Roth ([id number])[facility] ([facility])[address]84 [place] [address] Natriuretic peptide B [Mass/ Vol]on 03-06-2025 Natriuretic peptide B (Bld) [Mass/Vol] 56 pg/mL Normal 0-99 [facility] Comment on above: Order Comment: <100 pg/mL - Heart failure [id number] pg/mL - Intermediate probability of acute heart failure exacerbation. Correlate with clinical context and patient history. >=300 pg/mL - Heart Failure likely. Correlate with clinical context and patient history.Biotin interference may cause falsely decreased results. Patients taking a Biotin dose of up to 5 mg/day should refrain from taking Biotin for 24 hours before sample collection. Providers may contact their local laboratory for further information. Performed By: #### 3 0934-4 ####CALE Roth ([id number])[facility] ([facility])[address]34 [place] [address] Renal function 2000 panelon 03-06-2025 Albumin BCP dye [Mass/Vol] 4.1 g/dL Normal 3.4-5.0 [facility] Comment on above: Performed By: #### 2 4362-6 ####CALE Roth ([id number])[facility] ([facility])[address]43 [place] [address] Anion gap [Moles/Vol] 11 mmol/L Normal 10-20 [facility] Comment on above: Performed By: #### 2 4362-6 ####CALE Roth ([id number])[facility] ([facility])[address]27 [place] [address] Calcium [Mass/Vol] 9.0 mg/dL Normal 8.6-10.[address] [facility] Comment on above: Performed By: #### 2 4362-6 ####CALE Roth ([id number])[facility] ([facility])[address]406 [place] [address] Chloride [Moles/Vol] 114 mmol/L High 98-107 [facility] Comment on above: Performed By: #### 2 4362-6 ####CALE Roth ([id number])[facility] ([facility])[address]18 [place] [address] CO2 [Moles/Vol] 24 mmol/L Normal 21-32 [facility] Comment on above: Performed By: #### 2 4362-6 ####CALE Roth ([id number])[facility] ([facility])[address] [place] [address] Creatinine [Mass/Vol] 0.47 mg/dL Low 0.50-1.05 [facility] Comment on above: Performed By: #### 2 4362-6 ####CALE Roth ([id number])[facility] ([facility])[address] [place] [address] Glomerular filtration rate >90 Normal >60 [facility] Comment on above: Result Comment: Calc ulations of estimated GFR are performed using the 2020 CKD-EPI Study Refit equation without the race variable for the IDMS-Traceable creatinine methods.https://jasn.asnjournals.org/content/early/ASN .9465928546 Performed By: #### 2 4362-6 ####CALE Roth ([id number])[facility] ([facility])[address]34 [place] [address] Glucose [Mass/Vol] 131 mg/dL High 74-[address] [facility] Comment on above: Performed By: #### 2 4362-6 ####CALE Roth ([id number])[facility] ([facility])[address]24 [place] [address] Phosphate [Mass/Vol] 1.8 mg/dL Low 2.5-4.9 [facility] Comment on above: Performed By: #### 2 4362-6 ####CALE Roth ([id number])[facility] ([facility])[address]497 [place] [address] Potassium [Moles/Vol] 3.3 mmol/L Low 3.5-5.3 [facility] Comment on above: Performed By: #### 2 4362-6 ####CALE Roth ([id number])[facility] ([facility])[address]478 [place] [address] Urea nitrogen [Mass/Vol] 11 mg/dL Normal 6-23 [facility] Comment on above: Performed By: #### 2 4362-6 ####CALE Roth ([id number])[facility] ([facility])[address]19 [place] [address] Sodiumon 03-06-2025 Sodium [Moles/Vol] 145 mmol/L Normal 136-[address] [facility] Comment on above: Performed By: #### 2 951-2 ####CALE Roth ([id number])[facility] ([facility])[address]42 [place] [address] Sodium [Moles/Vol] 144 mmol/L Normal 136-[address] [facility] Comment on above: Performed By: #### 2 951-2 ####CALE Roth ([id number])[facility] ([facility])[address] [place] [address] Sodium [Moles/Vol] 146 mmol/L High 136-[address] [facility] Comment on above: Performed By: #### 2 951-2 ####CALE Roth ([id number])[facility] ([facility])[address] [place] [address] Performed By: #### 2 4362-6 ####CALE Roth ([id number])[facility] ([facility])[address]161 [place] [address] Triglycerideon 03-06-2025 Triglyceride [Mass/Vol] 114 mg/dL Normal 0-114 [facility] Comment on above: Order Comment: While on propofol. Result Comment: Age Desirable Borderline High Very HighSEX:B mg/dL mg/dL mg/dL mg/dL<=14D 86-277 ---- ---- ----15D-365D 55-277 ---- ---- ----1Y-9Y 0-74 75-99 >=100 ----10Y-19Y 0-89 90-129 >=130 ----20Y-24Y 0-114 115-149 >=150 ---->= 25Y 0-149 150-199 200-499 >=500Venipuncture immediately after or during the administration of Metamizole may lead to falsely low results. Testing should be performed immediately prior to Metamizole dosing. Performed By: #### 2 571-8 ####CALE Roth ([id number])[facility] ([facility])[address]06 [place] [address] Troponin I.cardiac panelon 0 03-06-2025 Tropinin I.cardiac panel High sensitivity method <3 Normal 0-34 [facility] Comment on above: Order Comment: Less than 99th percentile of normal range cutoff-Female and children under 18 years old <35 ng/L; Male <54 ng/L: NegativeRepeat testing should be performed if clinically indicated.Female and children under 18 years old 35-120 ng/L; Male 54-120 ng/L:Consistent with possible cardiac damage and possible increased clinicalrisk. Serial measurements may help to assess extent of myocardial damage.>120 ng/L: Consistent with cardiac damage, increased clinical risk andmyocardial infarction. Serial measurements may help assess extent ofmyocardial damage.NOTE: Children less than 1 year old may have higher baseline troponinlevels and results should be interpreted in conjunction with the overallclinical context.NOTE: Troponin I testing is performed using a differenttesting methodology at [facility] than at [facility]. Direct result comparisons should onlybe made within the same method. Performed By: #### 8 9577-1 ####CALE Roth ([id number])[facility] ([facility])[address] [place] [address] XR CHEST 1 VIEWon 03-06-2025 XR CHEST 1 VIEW Normal [facility] CBC W Auto Differential pane l (Bld)on 03-05-2025 Basophils (Bld) [#/Vol] 0.01 x10*3/uL Normal 0.00-0.10 [facility] Comment on above: Performed By: #### 5 7021-8 ####CALE Roth ([id number])[facility] ([facility])[address]64 [place] [address] Basophils/100 WBC (Bld) 0.1 % Normal 0.0-2.0 [facility] Comment on above: Performed By: #### 5 7021-8 ####CALE Roth ([id number])[facility] ([facility])[address]24 [place] [address] Eosinophils (Bld) [#/Vol] 0.00 x10*3/uL Normal 0.00-0.70 [facility] Comment on above: Performed By: #### 5 7021-8 ####CALE Roth ([id number])[facility] ([facility])[address]693 [place] [address] Eosinophils/100 WBC (Bld) 0.0 % Normal 0.0-6.0 [facility] Comment on above: Performed By: #### 5 7021-8 ####CALE Roth ([id number])[facility] ([facility])[address]35 [place] [address] Erythrocyte distribution width (RBC) [Ratio] 11.9 % Normal 11.5-14.5 [facility] Comment on above: Performed By: #### 5 7021-8 ####CALE Roth ([id number])[facility] ([facility])[address]68 [place] [address] Hematocrit (Bld) [Volume fraction] 36.5 % Normal 36.0-46.0 [facility] Comment on above: Performed By: #### 5 7021-8 ####CALE Roth ([id number])[facility] ([facility])[address] [place] [address] Hemoglobin (Bld) [Mass/Vol] 12.4 g/dL Normal 12.0-16.0 [facility] Comment on above: Performed By: #### 5 7021-8 ####CALE Roth ([id number])[facility] ([facility])[address] [place] [address] Immature granulocytes (Bld) [#/Vol] 0.08 x10*3/uL Normal 0.00-0.70 [facility] Comment on above: Performed By: #### 5 7021-8 ####CALE Roth ([id number])[facility] ([facility])[address]60 [place] [address] Immature granulocytes/100 WBC (Bld) 0.6 % Normal 0.0-0.9 [facility] Comment on above: Result Comment: Aleisha ture Granulocyte Count (IG) includes promyelocytes, myelocytes and metamyelocytes but does not include bands. Percent differential counts (%) should be interpreted in the context of the absolute cell counts (cells/UL). Performed By: #### 5 7021-8 ####CALE Roth ([id number])[facility] ([facility])[address] [place] [address] Lymphocytes (Bld) [#/Vol] 0.63 x10*3/uL Low 1.20-4.80 [facility] Comment on above: Performed By: #### 5 7021-8 ####CALE Roth ([id number])[facility] ([facility])[address]84 [place] [address] Lymphocytes/100 WBC (Bld) 5.1 % Normal 13.0-44.0 [facility] Comment on above: Performed By: #### 5 7021-8 ####CALE Roth ([id number])[facility] ([facility])[address]690 [place] [address] MCH (RBC) [Entitic mass] 29.9 pg Normal 26.0-34.0 [facility] Comment on above: Performed By: #### 5 7021-8 ####CALE Roth ([id number])[facility] ([facility])[address]53 [place] [address] MCHC (RBC) [Mass/Vol] 34.0 g/dL Normal 32.0-36.0 [facility] Comment on above: Performed By: #### 5 7021-8 ####CALE Roth ([id number])[facility] ([facility])[address]35 [place] [address] MCV (RBC) [Entitic vol] 88 fL Normal 80-100 [facility] Comment on above: Performed By: #### 5 7021-8 ####CALE Roth ([id number])[facility] ([facility])[address] [place] [address] Monocytes (Bld) [#/Vol] 0.99 x10*3/uL Normal 0.10-1.00 [facility] Comment on above: Performed By: #### 5 7021-8 ####CALE Roth ([id number])[facility] ([facility])[address]49 [place] [address] Monocytes/100 WBC (Bld) 8.0 % Normal 2.0-10.0 [facility] Comment on above: Performed By: #### 5 7021-8 ####CALE Roth ([id number])[facility] ([facility])[address]457 [place] [address] Neutrophils (Bld) [#/Vol] 10.74 x10*3/uL High 1.20-7.70 [facility] Comment on above: Result Comment: Perc ent differential counts (%) should be interpreted in the context of the absolute cell counts (cells/uL). Performed By: #### 5 7021-8 ####CALE Roth ([id number])[facility] ([facility])[address] [place] [address] Neutrophils/100 WBC (Bld) 86.2 % Normal 40.0-80.0 [facility] Comment on above: Performed By: #### 5 7021-8 ####CALE Roth ([id number])[facility] ([facility])[address]351 [place] [address] Nucleated RBC/100 WBC (Bld) [Ratio] 0.0 /100 WBCs Normal 0.0-0.0 [facility] Comment on above: Performed By: #### 5 7021-8 ####CALE Roth ([id number])[facility] ([facility])[address] [place] [address] Platelets (Bld) [#/Vol] 173 x10*3/uL Normal 150-450 [facility] Comment on above: Performed By: #### 5 7021-8 ####CALE Roth ([id number])[facility] ([facility])[address] [place] [address] RBC (Bld) [#/Vol] 4.15 x10*6/uL Normal 4.00-5.20 [facility] Comment on above: Performed By: #### 5 7021-8 ####CALE Roth ([id number])[facility] ([facility])[address] [place] [address] WBC (Bld) [#/Vol] 12.5 x10*3/uL High 4.4-11.3 [facility] Comment on above: Performed By: #### 5 7021-8 ####CALE Roth ([id number])[facility] ([facility])[address] [place] [address] CT HEAD WO IV CONTRASTon CT HEAD WO IV CONTRAST Normal [facility] Calcium.ionizedon 03-05-2025 Calcium.ionized (Bld) [Moles/Vol] 1.12 mmol/L Normal 1.1-1.33 [facility] Comment on above: Result Comment: The performance characteristics of ionized calcium testedin heparinized plasma or serum have been validated by [facility] site where testing is performed.Testing on heparinized plasma or serum is not approved [facility]; however, such approval is not necessary. Performed By: #### 1 994-3 ####CALE Roth ([id number])[facility] ([facility])[address] [place] [address] ED MED ADMINISTRATION DETAIL on 03-05-2025 ED MED ADMINISTRATION DETAIL Anodizer - KIMANI SILVA : 2000, , Medication Administration Record [address] [address] [id number] 03/03/2025 Patient: KIMANI SILVA Sex: Female : 2000 Age: 24y MEASUREMENTS: Wt: 49.9 kg, Ht/Miller: 65.0 in, BMI: 18.30 ALLERGIES: No known drug allergies Medication Ordered Medication Administration Date/Time IV NS 0.9 % 1000 13:45 03/03 IV NS 0.9 % 1000 mL started in bag#1 1000 mL at Started mL at 150 mL/hr 150 mL/hr via Site# 1. - 13:46 Prachi Langston R.N. 13:45 03/03/2025 (NOW x1) Prachi Langston, 15:19 03/03 Medication Continued: upon transfer at the rate of 150 R.N. mL/hr. . mL remaining in bag #1. IV patency established. IV site Scanned checked: no pain, redness, or swelling. - 23:19 Prachi Langston R.N. Zofran IVP 4 mg 13:46 03/03 Zofran IVP 4 mg given via Site# 1. IV patency Given (NOW x1) established. IV site checked: no pain, redness, or swelling. IV 13:46 03/03/2025 flushed thoroughly pre-medication administration. - 13:47 Kian Stanton R.N. R.N. Scanned Reglan IVP 5 mg 13:50 03/03 Reglan IVP 5 mg given via Site# 1. Medication Given (NOW x1) Wastage: 5 mg wasted. - 13:51 Prachi Langston R.N. 13:50 03/03/2025 Prachi Langston R.N. Scanned 1 of 2 Anodizer - KIMANI SILVA, : 2000, , Medication Ordered Medication Administration Date/Time DiphenhydrAMINE 13:51 03/03 DiphenhydrAMINE (Benadryl) IVP 25 mg given via Given (Benadryl) IVP 25 Site# 1. Medication Wastage: 25 mg wasted. - 13:54 Prachi 13:51 03/03/2025 mg (NOW x1) Michael Langston R.N. Scanned 2 of 2 Normal [facility] ED NURSES CLINICAL NOTEon ED NURSES CLINICAL NOTE Nurse Narrative - KIMANI SILVA, : 2000, , Nurse Clinical Narrative [address] [address] [id number] 03/03/2025 13:11:00 Patient: KIMANI SILVA Sex: Female : 2000 Age: 24y Disposition: Transfer to [facility] Disposition Decision Time: 15:00 03/03/2025 Departure Time: 15:27 03/03/2025 TRIAGE Arrived by EMS. Historian: (patient). Primary physician (Patti Lopez). Triage time: 13:15 03/03/2025. Acuity: LEVEL 3. 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 This started just prior to arrival 30 minutes [employer]. 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 SEPSIS SCREEN: NEGATIVE. SIRS criteria negative. No possible sources of infection. -- 13:03/03/25 EDT Vianca Burciaga R.N. 13:03/03/25. BP: 114/78 MAP: 90. HR: 108. RR: 12. O2 saturation: 99% Temperature: 98.5 F. Pain level now 03/03. -- 13:03/03/25 CHRISTIET Vianca Burciaga R.N. Measurements: 13:03/03/25 Wt: 49.9 kg, Ht/Miller: 65.0 in, BMI: 18.30 -- 13:03/03/25 CHRISTIET Vianca Burciaga R.N. Medications: no known home medications -- 13:03/03/25 HESHAM Burciaga R.N. 13:03/03/25. Preferred Pharmacy: ([facility] [place]). -- 13:03/03/25 HESHAM Burciaga R.N. 1 of 5 Nurse Narrative - KIMANI SILVA, : 2000, , Allergies: no known drug allergies -- 13:03/03/25 HESHAM Burciaga R.N. Home Medications/Allergy Information Source: patient -- 13:03/03/25 HESHAM Burciaga R.N. Problems: Migraine Headache -- 13:03/03/25 HESHAM Burciaga R.N. Surgeries: no known surgical history -- 13:03/03/25 HESHAM Burciaga R.N. History 13:03/03/25. PAST MEDICAL HX: LNMP: (3 weeks ago). Denies current . Immunizations not up to date. SOCIAL HX: Never smoker. No alcohol use or drug use. The patient has not traveled outside the [place] Infectious disease exposure: No infectious disease exposure. ABUSE ASSESSMENT: The patient answered "yes" to the question(s) "Do you feel safe in your home?" and "no" to the question(s) Are you afraid to go home?". SELF HARM ASSESSMENT: Self harm assessment was performed. The patient answered "no" to the question(s) "Have you recently felt down, depressed, or hopeless?" and "Do you have thoughts of harming or killing yourself?". FALL RISK ASSESSMENT: Fall risk assessment completed. No risk factors identified. -- 13:03/03/25 HESHAM Burciaga R.N. Interventions 2 of 5 Nurse Narrative - KIMANI SILVA, : 2000, , 13:03/03/25. Advanced care plan discussed with patient (Full Code). -- 13:03/03/25 HESHAM Burciaga R.N. PHYSICAL ASSESSMENT 13:03/03/25. To room via stretcher. GENERAL / NEURO / PSYCH: Alert. Oriented X 4. Appears in no acute distress. Appears in pain. Abnormal verbal response (dysarthria). HEENT: No facial asymmetry noted. Pupils equal, round and reactive to light. RESPIRATORY: Respirations not labored. Breath sounds within normal limits. CVS: Capillary refill less than 2 seconds. GI / : Abdomen soft and nontender. SKIN: Skin is warm and dry. -- 14:34 03/03/25 EDT Prachi Langston R.N. NURSING PROGRESS NOTES 13:20 03/03/25. Charleen Coma Scale: 15 - eyes open - spontaneously (4); best verbal response - oriented and converses (5); best motor response - obeys commands (6). -- 14:45 03/03/25 EDAleksandr Langston R.N. 13:45 03/03/25. IV NS 0.9 % 1000 mL started in bag#1 1000 mL at 150 mL/hr via Site# 1. -- 13:46 03/03/25 HESHAM Langston R.N. 13:46 03/03/25. Zofran IVP 4 mg given via Site# 1. IV patency established. IV site checked: no pain, redness, or swelling. IV flushed thoroughly pre-medication administration. -- 13:47 03/03/25 EDAleksandr Langston R.N. 13:50 03/03/25. Reglan IVP 5 mg given via Site# 1. Medication Wastage: 5 mg wasted. -- 13:51 03/03/25 HESHAM Langston R.N. 13:51 03/03/25. DiphenhydrAMINE (Benadryl) IVP 25 mg given via Site# 1. Medication Wastage: 25 mg wasted. -- 13:54 03/03/25 HESHAM Langston R.N. 14:06 03/03/25. GENERAL / NEURO / PSYCH: The patient reports headache. Alert. Oriented X 4. HEENT: Pupils equal, round and reactive to light. Pupillary exam: Right pupil round and briskly reactive to light directly and consensually and with accommodation. Left pupil: round and briskly reactive to light directly and consensually and with accommodation. RESPIRATORY: No respiratory distress. SKIN: Skin is warm and dry. Skin color within normal limits. -- 14:31 03/03/25 EDT Prachi Langston R.N. 14:11 03/03/25. Transfer request (14:10 03/03/2025). (Spoke with Mary from [facility]. Mary is speaking with Dr. Hawley.). -- 14:11 03/03/25 EDT [facility] 14:16 03/03/25. Transfer request (14:15 03/03/2025). (Dr. Hawley is speaki (more content not included)... Normal [facility] ED ORDER SHEET (CPOE ONLY)on 03-05-2025 ED ORDER SHEET (CPOE ONLY) Order Sheet - KIMANI SILVA, : 2000, , Order Sheet [address] [place] [address] [id number] 03/03/2025 Patient: KIMANI SILVA Sex: Female : 2000 Age: 24y MEASUREMENTS: Wt: 49.9 kg, Ht/Miller: 65.0 in, BMI: 18.30 ALLERGIES: No known drug allergies MEDICATION/IV/DRIP/FLUID ORDERS Order Description Priority Entered Acknowledged Completed IV NS 0.9 %1000 mL at 150 13:31 03/03/2025 13:41 13:46 mL/hr (NOW x1) Anastasia Hawley M.D. 03/03/2025 03/03/2025 Michael Stanton R.N. Zofran IVP4 mg (NOW x1) 13:31 03/03/2025 13:41 13:47 Anastasia Hawley M.D. 03/03/2025 03/03/2025 Michael Stanton R.N. Reglan IVP5 mg (NOW x1) 13:31 03/03/2025 13:41 13:51 Anastasia Hawley M.D. 03/03/2025 03/03/2025 Michael Stanton R.N. DiphenhydrAMINE (Benadryl) 13:31 03/03/2025 13:41 13:54 IVP25 mg (NOW x1) Anastasia Hawley M.D. 03/03/2025 03/03/2025 Michael Stanton R.N. 1 of 3 Order Sheet - KIMANI SILVA, : 2000, , potassium 15:07 03/03/2025 Cancelled: flight crew request 40 chloride(K-Felipe)20mEq/100m l Anastasia Hawley M.D. of K in NS. put in kride IVPB [id number] mEq at 50 mL/hr 15:54 EDT Prachi Langston, (NOW x1, HIGH ALERT R.NLyndon MEDICATION) LAB ORDERS Order Description Priority Entered Acknowledged Collected Completed CBC w Diff Stat Stat 13:31 03/03/2025 13:41 03/03/2025 13:41 03/03/2025 Prachi Moreau M.D., R.N. [place], R.N. CMP Stat Stat 13:31 03/03/2025 13:41 03/03/2025 13:41 03/03/2025 Prachi Moreau M.D., R.N. [place], R.N. CRP Stat Stat 13:31 03/03/2025 13:41 03/03/2025 13:41 03/03/2025 Prachi Moreau M.D., R.N. [place], R.N. ESR Stat Stat 13:31 03/03/2025 13:41 03/03/2025 13:41 03/03/2025 Prachi Moreau M.D., R.N. [place], R.N. PT with INR Stat Stat 14:03/03/2025 14:14 03/03/2025 14:14 03/03/2025 Vianca Moreau Shauna Ewing, M.D. R.N. RLyndonNLyndon DIAGNOSTIC STUDY ORDERS Order Description Priority Entered Acknowledged Completed CT Brain wo Cont Stat Stat 13:31 03/03/2025 13:41 13:54 Anastasia Hawley M.D. 03/03/2025 03/03/2025 Prachi Velarde 2 of 3 Order Sheet - KIMANI SILVA, : 2000, , Michael Langston R.N. Reason for Study: Headache STAFF ORDERS Order Description Priority Entered Acknowledged Collected Completed [Electronically signed by Anastasia Hawley M.D. (03/03/2025 13:31 EDT)] [Electronically signed by Anastasia Hawley M.D. (03/03/2025 15:07 EDT)] [Electronically signed by Anastasia Hawley M.D. (03/05/2025 07:35 EDT)] 3 of 3 Normal [facility] ED PHYSICIAN CLINICAL REPORT on 03-05-2025 ED PHYSICIAN CLINICAL REPORT Narrative - KIMANI SILVA, : 2000, , Physician Clinical Narrative [address] [place] [address] [id number] 03/03/2025 13:11:00 Patient: KIMANI SILVA Sex: Female : 2000 Age: 24y Disposition: Transfer to [facility] Disposition Decision Time: 15:00 03/03/2025 Departure Time: 15:27 03/03/2025 Measurements Wt: 49.9 kg, Ht/Miller: 65.0 in, BMI: 18.30 Initial Vital Sign Measured Time BP MAP HR RR O2Sat ETCO2 Temp Pain GCS RTS 13:20 03/03/2025 15 Time Seen: 13:21 03/03/2025. Arrived- By ambulance. Historian- patient. Independent historian- EMS personnel and family. HISTORY OF PRESENT ILLNESS Chief Complaint: HEADACHE and MIGRAINE HEADACHE. Is still present. This started just prior to arrival and patient was last known well (13:07 03/03/2025). It is described as similar to previous headaches, tightness, pressure and throbbing. Located in the frontal region. No neck pain. Not located in the facial region. There were preceding symptoms (blurred vision). The patient has had blurred vision, photophobia, nausea and vomiting. (patient also complains of some speech hesitancy. She has had some headaches in the past extending back to when she was about 14 years old. Other members of family did not have headaches. She was sitting quietly when the headache began today. Today's headache is worse than her normal headache.). Similar symptoms previously. Patient has had similar symptoms many times. 1 of 11 KIMANI Kinney, : 2000, , REVIEW OF SYSTEMS MUSCULOSKELETAL: No back pain. GI: No abdominal pain or diarrhea. RESPIRATORY: No difficulty breathing. CVS: No chest pain. EARS: No ear pain. NOSE: No sinus pressure. CONSTITUTIONAL: No fever or muscle aches. NEUROLOGICAL: No head injury. PAST HISTORY See nurses notes. Migraine Headache Surgeries: no known surgical history Medications: no known home medications Allergies: no known drug allergies Home Medications/Allergy Information Source: patient - Vianca BurciagaMichael, 03/03/2025 13:21 EDT SOCIAL HISTORY Never smoker. No alcohol use or drug use. No recent travel. FAMILY HISTORY Negative. ADDITIONAL NOTES The nursing notes have been reviewed. 2 of 11 KIMANI Kinney, : 2000, , PHYSICAL EXAM Vital Signs: Have been reviewed. Appearance: Alert. Appears to be in pain. Patient in moderate distress. Eyes: Photophobia present. Pupils equal, round and reactive to light. Eyes normal inspection. No conjunctival findings. ENT: Ears normal. Nose normal. Pharynx normal. Neck: Normal inspection. Neck supple. No meningeal signs or carotid bruit. CVS: Normal heart rate and rhythm. Heart sounds normal. Respiratory: No respiratory distress. Painless inspiration. Breath sounds normal. No crackles or wheezes. Abdomen: Soft and nontender. Back: Normal inspection. No CVA tenderness. Skin: Skin warm and dry. Normal skin color. No rash. Normal skin turgor. Extremities: Extremities exhibit normal ROM. No lower extremity edema. Neuro: Oriented X 3. Expressive aphasia (Mild difficulty picking out her words). Alert. Cranial nerves normal (as tested). No cerebellar findings. No motor deficit. No weakness. No sensory deficit. No sensory deficit. No pronator drift. LABS, X-RAYS, AND EKG CT Head: . Laboratory Tests: C-REACTIVE PROTEIN Final CHRISTINE: 03/03/2025 13:04:00 EDT MsgRcvd: 03/03/2025 14:21 EDT Lab Test Result Reference Status Received 03/03/2025 14:21 CRP <0.05 mg/dl 0.00 - 0.90 Final EDT CBC + DIFF Final CHRISTINE: 03/03/2025 13:04:00 EDT MsgRcvd: 03/03/2025 14:21 EDT Lab Test Result Reference Status Received 3 of 11 Narrative - KIMANI SILVA, : 2000, , Lab Test Result Reference Status Received 03/03/2025 14:21 CBC + DIFF Final EDT CBC-COMPLETE BLOOD COUNT 03/03/2025 14:21 WBC 8.6 x 10/UL 4.5 - 10.8 Final EDT 03/03/2025 14:21 RBC 5.20 x 10/UL 4.10 - 5.30 Final EDT 03/03/2025 14:21 HEMOGLOBIN 15.2 g/dl 12.0 - 16.0 Final EDT 03/03/2025 14:21 HEMATOCRIT 44.5 % 34.0 - 46.0 Final EDT 03/03/2025 14:21 MCV 86 fl 80 - 99 Final EDT 03/03/2025 14:21 MCH 29 pg 27 - 33 Final EDT 03/03/2025 14:21 MCHC 34 X10 3 32 - 36 Final EDT 03/03/2025 14:21 RDW/CV 13.1 % 12.0 - 15.6 Final EDT 03/03/2025 14:21 PLATELET 255 x10/UL 150 - 450 Final EDT 03/03/2025 14:21 MPV 8.7 fl 6.6 - 10.5 Final EDT AUTOMATED DIFFERENTIAL 40.2 % 03/03/2025 14:21 NEUT % 46.0 - 76.0 Final Below low normal EDT 4 of 11 KIMANI Kinney, : 2000, , 51.6 % (more content not included)... Normal [facility] ED SUPER BILLon 03-05-2025 ED SUPER BILL KIMANI Rebolledo, : 2000, , [place] [address] [place] [address] [id number] 03/03/2025 Patient: KIMANI SILVA Sex: Female : 2000 Age: 24y Facility Professional Category Item Description Code Code Quantity Fee Total Drugs Normal Saline 493967 1 $0.00 $0.00 1000cc (018773) Nurse/E/M EMERGENCY 004891 1 $0.00 $0.00 DEPT VISIT HIGH SEVERITYFUNCJ (82821-01) Nurse/IV/IM/Infusions Hydration 663704 2 $0.00 $0.00 additional hour (99925) Nurse/IV/IM/Infusions IVP additional 137926 2 $0.00 $0.00 push (17179) Nurse/IV/IM/Infusions IVP initial (47240) 838203 1 $0.00 $0.00 Grand $0.00 Total Providers Anastasia Hawley M.D. Chief Complaint 1 of 2 KIMANI Rebolledo, : 2000, , HEADACHE and MIGRAINE HEADACHE. 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 ICD-10 Codes I60.9: Nontraumatic subarachnoid hemorrhage, unspecified 2 of 2 Normal [facility] ED VISIT SUMMARYon ED VISIT SUMMARY Visit Overview - KIMANI MOSELEY : 2000, , Visit Overview [facility] [address] [place] [address] [id number] 03/03/2025 Patient: KIMANI SILVA Sex: Female : 2000 Age: 24y 03/05/2025 07:35 AM EDT ED Arrival:13:11 03/03/2025 EDT Status:not Recent Travel:no Language:eng Adv Directive: Isolation Status: Ethnicity:N Fall Risk:no risk Infectious Disease Exposure:no Measurements:5'5" / 165.1 Self-Harm Status:risk Sepsis Screen:negative cm 110.0 lb / 49.9 kg Chief Complaint:HEADACHE, (30 minutes [employer]), and (N. John) ALLERGIES No Known Drug Allergies HOME MEDICATIONS None PAST MEDICAL HISTORY / PROBLEMS LNMP: (3 weeks ago) Migraine Headache See nurses notes 1 of 3 Visit Overview - KIMANI SILVA, : 2000, , PAST SURGICAL HISTORY No Surgeries SOCIAL HISTORY Smoking status: No Alcohol use: No Drug use: No ED COURSE MEDICATIONS GIVEN IN EMERGENCY DEPARTMENT 13:45 03/03/25 IV NS 0.9 % 1000 mL 150 mL/hr 13:46 03/03/25 Zofran IVP 4 mg 13:50 03/03/25 Reglan IVP 5 mg 13:51 03/03/25 DiphenhydrAMINE (Benadryl) IVP 25 mg IV SITE INFORMATION 13:21 03/03/25 Site #1 right AC, 18g. Saline lock. INTAKE OUTPUT REASSESMENT (most recent) 14:06 03/03/25. GENERAL / NEURO / PSYCH: The patient reports headache. Alert. Oriented X 4. HEENT: Pupils equal, round and reactive to light. Pupillary exam: Right pupil round and briskly reactive to light directly and consensually and with accommodation. Left pupil: round and briskly reactive to light directly and consensually and with accommodation. RESPIRATORY: No respiratory distress. SKIN: Skin is warm and dry. Skin color within normal limits. VITAL SIGNS First Vitals Last Vitals Temp 13:20 03/03/25 Temp 15:08 03/03/25 BP 13:20 03/03/25 BP 15:08 03/03/25 HR 13:20 03/03/25 HR 15:08 03/03/25 107 RR 13:20 03/03/25 RR 15:08 03/03/25 17 O2 Sat 13:20 03/03/25 O2 Sat 15:08 03/03/25 100% 2 of 3 Visit Overview - KIMANI SILVA, : 2000, , First Vitals Last Vitals Pain 13:20 03/03/25 Pain 15:08 03/03/25 ETCO2 13:20 03/03/25 ETCO2 15:08 03/03/25 GCS 13:20 03/03/25 15 GCS 15:08 03/03/25 RTS 13:20 03/03/25 RTS 15:08 03/03/25 PROCEDURES NURSING INTERVENTIONS LABS / STUDIES LABS / STUDIES ORDERED CBC w Diff CMP CRP CT Brain wo Cont ESR PT with INR LABS - ABNORMAL RESULTS CMP with eGFR POTASSIUM 2.7 mmol/L (LL) CLINICAL IMPRESSION NONTRAUMATIC SUBARACHNOID HEMORRHAGE INVOLVING A CEREBRAL AVM 3 of 3 Normal [facility] ED VITALS FLOW SHEETon 03-05 ED VITALS FLOW SHEET Vitals - MIKE SILVA, : 2000, , Vital Sign Flow Sheet [address] [address] [id number] 03/03/2025 Patient: KIMANI SILVA Sex: Female : 2000 Age: 24y Measurements Wt: 49.9 kg, Ht/Miller: 65.0 in, BMI: 18.30 Measured Time BP MAP HR RR O2Sat ETCO2 Temp Pain GCS RTS 15:08 03/03/2025 107 17 100% 15:03 03/03/2025 101 17 97% 14:58 03/03/2025 96 18 96% 14:57 03/03/2025 112/77 87 100 14:53 03/03/2025 100 20 99% 14:48 03/03/2025 98 18 99% 14:43 03/03/2025 100 16 99% 14:42 03/03/2025 115/75 84 99 14:38 03/03/2025 21 14:34 03/03/2025 112/70 80 102 14:33 03/03/2025 106 17 100% 14:28 03/03/2025 99 19 100% 14:23 03/03/2025 90 19 100% 14:19 03/03/2025 118/77 88 96 14:18 03/03/2025 103 20 100% 1 of 2 Vitals - KIMANI SILVA, : 2000, , Measured Time BP MAP HR RR O2Sat ETCO2 Temp Pain GCS RTS 14:13 03/03/2025 22 13:22 03/03/2025 114/78 90 108 12 99% 98.5 F 9 13:20 03/03/2025 15 2 of 2 Normal [facility] Glucose Test strip manual (B ld) [Mass/Vol]on 03-05-2025 Glucose [Mass/Vol] 120 mg/dL High [address] [place] [address] Comment on above: Performed By: #### 2 341-6 ####CALE Roth ([id number])[facility] ([facility])[address] [place] [address] Glucose [Mass/Vol] 125 mg/dL High [address] [place] [address] Comment on above: Performed By: #### 2 341-6 ####CALE Roth ([id number])[facility] ([facility])[address] [place] [address] Glucose [Mass/Vol] 150 mg/dL High [address] [place] [address] Comment on above: Performed By: #### 2 341-6 ####CALE Roth ([id number])[facility] ([facility])[address] [place] [address] Glucose [Mass/Vol] 148 mg/dL High [address] [place] [address] Comment on above: Performed By: #### 2 341-6 ####CALE Roth ([id number])[facility] ([facility])[address] [place] [address] Glucose [Mass/Vol] 136 mg/dL High 74-[address] [facility] Comment on above: Performed By: #### 2 341-6 ####CALE Roth ([id number])[facility] ([facility])[address] [place] [address] Glucose [Mass/Vol] 161 mg/dL High 74-[address] [facility] Comment on above: Performed By: #### 2 341-6 ####CALE Roth ([id number])[facility] ([facility])[address] [place] [address] Glucose [Mass/Vol] 162 mg/dL High 74-[address] [facility] Comment on above: Performed By: #### 2 341-6 ####CALE Roth ([id number])[facility] ([facility])[address] [place] [address] Magnesiumon 03-05-2025 Magnesium [Mass/Vol] 1.86 mg/dL Normal 1.60-2.40 [facility] Comment on above: Performed By: #### 1 9123-9 ####CALE Roth ([id number])[facility] ([facility])[address] [place] [address] Renal function 2000 panelon 03-05-2025 Albumin BCP dye [Mass/Vol] 4.2 g/dL Normal 3.4-5.0 [facility] Comment on above: Performed By: #### 2 4362-6 ####CALE Roth ([id number])[facility] ([facility])[address] [place] [address] Anion gap [Moles/Vol] 12 mmol/L Normal 10-20 [facility] Comment on above: Performed By: #### 2 4362-6 ####CALE Roth ([id number])[facility] ([facility])[address] [place] [address] Calcium [Mass/Vol] 9.3 mg/dL Normal 8.6-10.[address] [facility] Comment on above: Performed By: #### 2 4362-6 ####CALE Roth ([id number])[facility] ([facility])[address] [place] [address] Chloride [Moles/Vol] 108 mmol/L High 98-107 [facility] Comment on above: Performed By: #### 2 4362-6 ####CALE CAI L ([id number])[facility] ([facility])[address] [place] [address] CO2 [Moles/Vol] 24 mmol/L Normal 21-32 [facility] Comment on above: Performed By: #### 2 4362-6 ####CALE Roth ([id number])[facility] ([facility])[address] [place] [address] Creatinine [Mass/Vol] 0.43 mg/dL Low 0.50-1.05 [facility] Comment on above: Performed By: #### 2 4362-6 ####CALE Roth ([id number])[facility] ([facility])[address] [place] [address] Glomerular filtration rate >90 Normal >60 [facility] Comment on above: Result Comment: Calc ulations of estimated GFR are performed using the 2020 CKD-EPI Study Refit equation without the race variable for the IDMS-Traceable creatinine methods.https://jasn.asnjournals.org/content/early//ASN .8926018114 Performed By: #### 2 4362-6 ####CALE PARKERTZGONZALEZ L ([id number])[facility] ([facility])[address] [place] [address] Glucose [Mass/Vol] 163 mg/dL High 74-[address] [facility] Comment on above: Performed By: #### 2 4362-6 ####CALE CAI L ([id number])[facility] ([facility])[address] [place] [address] Phosphate [Mass/Vol] 3.0 mg/dL Normal 2.5-4.9 [facility] Comment on above: Performed By: #### 2 4362-6 ####CALE Roth ([id number])[facility] ([facility])[address] [place] [address] Potassium [Moles/Vol] 3.2 mmol/L Low 3.5-5.3 [facility] Comment on above: Performed By: #### 2 4362-6 ####CALE Roth ([id number])[facility] ([facility])[address] [place] [address] Sodium [Moles/Vol] 141 mmol/L Normal 136-[address] [facility] Comment on above: Performed By: #### 2 4362-6 ####CALE Roth ([id number])[facility] ([facility])[address] [place] [address] Urea nitrogen [Mass/Vol] 8 mg/dL Normal 6-23 [facility] Comment on above: Performed By: #### 2 4362-6 ####CALE Roth ([id number])[facility] ([facility])[address] [place] [address] Albumin BCP dye [Mass/Vol] 4.1 g/dL Normal 3.4-5.0 [facility] Comment on above: Performed By: #### 2 4362-6 ####CALE Roth ([id number])[facility] ([facility])[address] [place] [address] Anion gap [Moles/Vol] 14 mmol/L Normal 10-20 [facility] Comment on above: Performed By: #### 2 4362-6 ####CALE Roth ([id number])[facility] ([facility])[address] [place] [address] Calcium [Mass/Vol] 8.4 mg/dL Low 8.6-10.[address] [facility] Comment on above: Performed By: #### 2 4362-6 ####CALE Roth ([id number])[facility] ([facility])[address] [place] [address] Chloride [Moles/Vol] 109 mmol/L High 98-107 [facility] Comment on above: Performed By: #### 2 4362-6 ####CALE CAI L ([id number])[facility] ([facility])[address] [place] [address] CO2 [Moles/Vol] 22 mmol/L Normal 21-32 [facility] Comment on above: Performed By: #### 2 4362-6 ####CALE Roth ([id number])[facility] ([facility])[address] [place] [address] Creatinine [Mass/Vol] 0.52 mg/dL Normal 0.50-1.05 [facility] Comment on above: Performed By: #### 2 4362-6 ####CALE Roth ([id number])[facility] ([facility])[address] [place] [address] Glomerular filtration rate >90 Normal >60 [facility] Comment on above: Result Comment: Calc ulations of estimated GFR are performed using the 2020 CKD-EPI Study Refit equation without the race variable for the IDMS-Traceable creatinine methods.https://jasn.asnjournals.org/content//ASN .4789850631 Performed By: #### 2 4362-6 ####CALE Roth ([id number])[facility] ([facility])[address] [place] [address] Glucose [Mass/Vol] 201 mg/dL High 74-[address] [facility] Comment on above: Performed By: #### 2 4362-6 ####CALE CAI L ([id number])[facility] ([facility])[address] [place] [address] Phosphate [Mass/Vol] 3.2 mg/dL Normal 2.5-4.9 [facility] Comment on above: Performed By: #### 2 4362-6 ####CALE Roth ([id number])[facility] ([facility])[address] [place] [address] Potassium [Moles/Vol] 3.2 mmol/L Low 3.5-5.3 [facility] Comment on above: Performed By: #### 2 4362-6 ####CALE Roth ([id number])[facility] ([facility])[address] [place] [address] Urea nitrogen [Mass/Vol] 8 mg/dL Normal 6-23 [facility] Comment on above: Performed By: #### 2 4362-6 ####CALE Roth ([id number])[facility] ([facility])[address] [place] [address] Sodiumon 03-05-2025 Sodium [Moles/Vol] 148 mmol/L High 136-[address] [facility] Comment on above: Performed By: #### 2 951-2 ####CALE Roth ([id number])[facility] ([facility])[address] [place] [address] Sodium [Moles/Vol] 143 mmol/L Normal 136-[address] [facility] Comment on above: Performed By: #### 2 951-2 ####CALE Roth ([id number])[facility] ([facility])[address] [place] [address] Sodium [Moles/Vol] 142 mmol/L Normal 136-[address] [facility] Comment on above: Performed By: #### 2 951-2 ####CALE Roth ([id number])[facility] ([facility])[id number] [place] [id number] Performed By: #### 2 4362-6 ####CALE Roth ([id number])[facility]ICAL SPECIALTY [facility] ([facility])[address] [place] [address] Specific gravity Auto test s trip (U) [Rel density]on 03-05-2025 Specific gravity (U) [Rel density] 1.019 Normal 1.005-1.035 [facility] Comment on above: Performed By: #### 5 3326-5 ####CALE Roth ([id number])[facility] ([facility])[address] [place] [address] Triglycerideon 03-05-2025 Triglyceride [Mass/Vol] 62 mg/dL Normal 0-114 [facility] Comment on above: Order Comment: While on propofol. Result Comment: Age Desirable Borderline High Very HighSEX:B mg/dL mg/dL mg/dL mg/dL<=14D 86-277 ---- ---- ----15D-365D 55-277 ---- ---- ----1Y-9Y 0-74 75-99 >=100 ----10Y-19Y 0-89 90-129 >=130 ----20Y-24Y 0-114 115-149 >=150 ---->= 25Y 0-149 150-199 200-499 >=500Venipuncture immediately after or during the administration of Metamizole may lead to falsely low results. Testing should be performed immediately prior to Metamizole dosing. Performed By: #### 2 571-8 ####CALE Roth ([id number])[facility] ([facility])[address] [place] [id number] HEAD WO IV CONTRASTon CT HEAD WO IV CONTRAST Normal [facility] ECG 12-LEADon 03-04-2025 ECG 12-LEAD Ventricular Rate 80 Atrial Rate 80 P-R Interval 166 QRS Duration 82 Q-T Interval 390 QTC Calculation(Bazett) 449 P Thendara 83 R Thendara 92 T Thendara 90 QRS Count 14 Q Onset 219 P Onset 136 P Offset 182 T Offset 414 QTC Fredericia 429 Diagnosis Normal sinus rhythm Rightward axis Nonspecific ST abnormality Abnormal ECG No previous ECGs available See ED provider note for full interpretation and clinical correlation Confirmed by Sharon Russell ([id number]) on 03/04/2025 1:01:43 AM Normal [facility] Gas and Carbon monoxide and Electrolytes panel (BldA)on 03-04-2025 Anion gap 4 (BldA) [Moles/Vol] 13 mmo/L Normal 10-25 [facility] Comment on above: Performed By: #### 9 3685-6 ####CALE Roth ([id number])[facility] ([facility])[address] [place] [address] Base excess Calc (Bld) [Moles/Vol] -3.9000 mmol/L Low -2.0-3.0 [facility] Comment on above: Performed By: #### 9 3685-6 ####CALE Roth ([id number])[facility] ([facility])[address] [place] [address] Calcium.ionized (BldA) [Moles/Vol] 1.05 mmol/L Low 1.10-1.33 [facility] Comment on above: Performed By: #### 9 3685-6 ####CALE Roth ([id number])[facility] ([facility])[address] [place] [address] Chloride (BldA) [Moles/Vol] 108 mmol/L High 98-107 [facility] Comment on above: Performed By: #### 9 3685-6 ####CLAE Roth ([id number])[facility] ([facility])[address] [place] [address] CO2 (Bld) [Partial pressure] 31 mm Hg Low 38-42 [facility] Comment on above: Performed By: #### 9 3685-6 ####CALE Roth ([id number])[facility] ([facility])[address] [place] [address] Glucose [Mass/Vol] 176 mg/dL High 74-[address] [facility] Comment on above: Performed By: #### 9 3685-6 ####CALE Roth ([id number])[facility] ([facility])[address] [place] [address] HCO3 (Bld) [Moles/Vol] 19.6 mmol/L Low 22.0-26.0 [facility] Comment on above: Performed By: #### 9 3685-6 ####CALE Roth ([id number])[facility] ([facility])[address] [place] [address] Hematocrit Est (Bld) [Volume fraction] 44.0 % Normal 36.0-46.0 [facility] Comment on above: Performed By: #### 9 3685-6 ####CALE Roth ([id number])[facility] ([facility])[address] [place] [address] Hemoglobin (Bld) [Mass/Vol] 14.5 g/dL Normal 12.0-16.0 [facility] Comment on above: Performed By: #### 9 3685-6 ####CALE Roth ([id number])[facility] ([facility])[address] [place] [address]58[address] Inhaled oxygen concentration 44 % Normal [facility] Comment on above: Performed By: #### 9 2925-6 ####CALE Roth ([id number])[facility] ([facility])[address] [place] [address] Lactate (BldA) [Moles/Vol] 2.1 mmol/L High 0.4-2.0 [facility] Comment on above: Performed By: #### 9 3685-6 ####CALE Roth ([id number])[facility] ([facility])[address] [place] [address]125 Oxygen (Bld) [Partial pressure] 220 mm Hg High 85-95 [facility] Comment on above: Performed By: #### 9 3685-6 ####CALE Roth ([id number])[facility] ([facility])[address] [place] [address] Oxyhemoglobin (BldA) [Mass fraction] 98.0 % Normal 94.0-98.0 [facility] Comment on above: Performed By: #### 9 1395-6 ####CALE Roth ([id number])[facility] ([facility])[address] [place] [address] pH (Bld) 7.41 [pH] Normal 7.38-7.42 [facility] Comment on above: Performed By: #### 9 3685-6 ####CALE Roth ([id number])[facility] ([facility])[address] [place] [address] Potassium (BldA) [Moles/Vol] 3.0 mmol/L Low 3.5-5.3 [facility] Comment on above: Performed By: #### 9 3685-6 ####CALE Roth ([id number])[facility] ([facility])[address] [place] [address] Sodium (BldA) [Moles/Vol] 138 mmol/L Normal 136-145 [facility] Comment on above: Performed By: #### 9 3685-6 ####CALE Roth ([id number])[facility] ([facility])[address] [place] [address] Gas panel (BldA)on 5 Base excess Calc (Bld) [Moles/Vol] -5.0000 mmol/L Low -2.0-3.0 [facility] Comment on above: Performed By: #### 2 4336-0 ####CALE Roth ([id number])[facility] ([facility])[address] [place] [address]751 CO2 (Bld) [Partial pressure] 30 mm Hg Low 38-42 [facility] Comment on above: Performed By: #### 2 4336-0 ####CALE Roth ([id number])[facility] ([facility])[address] [place] [address]367 HCO3 (Bld) [Moles/Vol] 18.6 mmol/L Low 22.0-26.0 [facility] Comment on above: Performed By: #### 2 4336-0 ####CALE Roth ([id number])[facility] ([facility])[address] [place] [address] 42640 Inhaled oxygen concentration 45 % Normal [facility] Comment on above: Performed By: #### 2 4336-0 ####CALE Roth ([id number])[facility] ([facility])[address] [place] [address] Oxygen (Bld) [Partial pressure] 210 mm Hg High 85-95 [facility] Comment on above: Performed By: #### 2 4336-0 ####CALE Roth ([id number])[facility] ([facility])[address] [place] [address] 09770 Oxyhemoglobin (BldA) [Mass fraction] 97.3 % Normal 94.0-98.0 [facility] Comment on above: Performed By: #### 2 4336-0 ####CALE Roth ([id number])[facility] ([facility])[address] [place] [address] 39599 pH (Bld) 7.40 [pH] Normal 7.38-7.42 [facility] Comment on above: Performed By: #### 2 4336-0 ####CALE Roth ([id number])[facility] ([facility])[address] [place] [address] Glucose Test strip manual (B ld) [Mass/Vol]on 03-04-2025 Glucose [Mass/Vol] 162 mg/dL High [address] [place] [address] Comment on above: Performed By: #### 2 341-6 ####CALE Roth ([id number])[facility] ([facility])[address] [place] [address] 43599 Glucose [Mass/Vol] 158 mg/dL High [address] [place] [address] Comment on above: Performed By: #### 2 341-6 ####CALE Roth ([id number])[facility] ([facility])[address] [place] [address] 82757 Glucose [Mass/Vol] 132 mg/dL High [address] Comment on above: Performed By: #### 2 341-6 ####CALE Roth ([id number])[facility] ([facility])[address] [place] [address] IR ANGIOGRAM CEREBRAL BILATE RALon 03-04-2025 IR ANGIOGRAM CEREBRAL BILATERAL Normal [facility] IR INTERVENTION NEURO EMBOLI ZATIONon 03-04-2025 IR INTERVENTION NEURO EMBOLIZATION Normal [facility] Renal function 2000 panelon 03-04-2025 Albumin BCP dye [Mass/Vol] 4.4 g/dL Normal 3.4-5.0 [facility] Comment on above: Performed By: #### 2 4362-6 ####CALE Roth ([id number])[facility] ([facility])[address] [place] [address] Anion gap [Moles/Vol] 10 mmol/L Normal 10-20 [facility] Comment on above: Performed By: #### 2 4362-6 ####CALE Roth ([id number])[facility] ([facility])[address] [place] [address] Calcium [Mass/Vol] 8.7 mg/dL Normal 8.6-10.[address] [facility] Comment on above: Performed By: #### 2 4362-6 ####CALE Roth ([id number])[facility] ([facility])[address] [place] [address] Chloride [Moles/Vol] 116 mmol/L High 98-107 [facility] Comment on above: Performed By: #### 2 4362-6 ####CALE Roth ([id number])[facility] ([facility])[address] [place] [address] CO2 [Moles/Vol] 23 mmol/L Normal 21-32 [facility] Comment on above: Performed By: #### 2 4362-6 ####CALE Roth ([id number])[facility] ([facility])[address] [place] [address] Creatinine [Mass/Vol] 0.49 mg/dL Low 0.50-1.05 [facility] Comment on above: Performed By: #### 2 4362-6 ####CALE Roth ([id number])[facility] ([facility])[address] [place] [address] Glomerular filtration rate >90 Normal >60 [facility] Comment on above: Result Comment: Calc ulations of estimated GFR are performed using the 2020 CKD-EPI Study Refit equation without the race variable for the IDMS-Traceable creatinine methods.https://jasn.asnjournals.org/content/early//ASN .8781292988 Performed By: #### 2 4362-6 ####CALE Roth ([id number])[facility] ([facility])[address] [place] [address] Glucose [Mass/Vol] 149 mg/dL High 74-[address] [facility] Comment on above: Performed By: #### 2 4362-6 ####CALE CAI L ([id number])[facility] ([facility])[address] [place] [address] Phosphate [Mass/Vol] 1.1 mg/dL Low 2.5-4.9 [facility] Comment on above: Performed By: #### 2 4362-6 ####CALE CAI L ([id number])[facility] ([facility])[address] [place] [address] Potassium [Moles/Vol] 3.0 mmol/L Low 3.5-5.3 [facility] Comment on above: Performed By: #### 2 4362-6 ####CALE CAI L ([id number])[facility] ([facility])[address] [place] [address] Urea nitrogen [Mass/Vol] 6 mg/dL Normal 6-23 [facility] Comment on above: Performed By: #### 2 4362-6 ####CALE CAI L ([id number])[facility] ([facility])[address] [place] [address] Albumin BCP dye [Mass/Vol] 4.2 g/dL Normal 3.4-5.0 [facility] Comment on above: Performed By: #### 2 4362-6 ####CALE Roth ([id number])[facility] ([facility])[address] [place] [address] Anion gap [Moles/Vol] 13 mmol/L Normal 10-20 [facility] Comment on above: Performed By: #### 2 4362-6 ####CALE CAI L ([id number])[facility] ([facility])[address] [place] [address] Calcium [Mass/Vol] 8.3 mg/dL Low 8.6-10.[address] [facility] Comment on above: Performed By: #### 2 4362-6 ####CALE Roth ([id number])[facility] ([facility])[address] [place] [address] Chloride [Moles/Vol] 111 mmol/L High 98-107 [facility] Comment on above: Performed By: #### 2 4362-6 ####CALE CAI L ([id number])[facility] ([facility])[address] [place] [address] CO2 [Moles/Vol] 21 mmol/L Normal 21-32 [facility] Comment on above: Performed By: #### 2 4362-6 ####CALE CAI L ([id number])[facility] ([facility])[address] [place] [address] Creatinine [Mass/Vol] 0.56 mg/dL Normal 0.50-1.05 [facility] Comment on above: Performed By: #### 2 4362-6 ####CALE CAI L ([id number])[facility] ([facility])[address] [place] [address] Glomerular filtration rate >90 Normal >60 [facility] Comment on above: Result Comment: Calc ulations of estimated GFR are performed using the 2020 CKD-EPI Study Refit equation without the race variable for the IDMS-Traceable creatinine methods.https://jasn.asnjournals.org/content//ASN .3297464377 Performed By: #### 2 4362-6 ####CALE Roth ([id number])[facility] ([facility])[address] [place] [address] Glucose [Mass/Vol] 162 mg/dL High 74-[address] [facility] Comment on above: Performed By: #### 2 4362-6 ####CALE Roth ([id number])[facility] ([facility])[address] [place] [address] Phosphate [Mass/Vol] 1.2 mg/dL Low 2.5-4.9 [facility] Comment on above: Performed By: #### 2 4362-6 ####CALE Roth ([id number])[facility] ([facility])[address] [place] [address] Potassium [Moles/Vol] 3.2 mmol/L Low 3.5-5.3 [facility] Comment on above: Performed By: #### 2 4362-6 ####CALE Roth ([id number])[facility] ([facility])[address] [place] [address] Sodium [Moles/Vol] 142 mmol/L Normal 136-[address] [facility] Comment on above: Performed By: #### 2 4362-6 ####CALE Roth ([id number])[facility] ([facility])[address] [place] [address] Urea nitrogen [Mass/Vol] 6 mg/dL Normal 6-23 [facility] Comment on above: Performed By: #### 2 4362-6 ####CALE Roth ([id number])[facility] ([facility])[address] [place] [address] Sodiumon 03-04-2025 Sodium [Moles/Vol] 144 mmol/L Normal 136-[address] [facility] Comment on above: Performed By: #### 2 951-2 ####CALE Roth ([id number])[facility] ([facility])[address] [place] [address] Sodium [Moles/Vol] 146 mmol/L High 136-[address] [facility] Comment on above: Performed By: #### 2 951-2 ####CALE Roth ([id number])[facility] ([facility])[address] [place] [address] Performed By: #### 2 4362-6 ####CALE Roth ([id number])[facility] ([facility])[address] [place] [address]23 XR ABDOMEN 1 VIEWon 03-04-20 XR ABDOMEN [address] [facility] XR CHEST 1 VIEWon 03-04-2025 XR CHEST 1 VIEW Normal [facility] Blood type and Indirect anti body screen panel (Bld)on 03-03-2025 ABO group Nom (Bld) B Normal [facility] Comment on above: Performed By: #### 3 4532-2 ####CALE Roth ([id number])[facility] ([facility])[address] [place] [address] Blood group antibody screen Ql Negative [facility] Comment on above: Performed By: #### 3 4532-2 ####CALE Roth ([id number])[facility] ([facility])[address] [place] [address] D Ag Ql (Bld) Positive [facility] Comment on above: Performed By: #### 3 4532-2 ####CALE Roth ([id number])[facility] ([facility])[address] [place] [address] C-REACTIVE PROTEINon 025 CRP [Mass/Vol] mg/L Normal 0.00 - 0.90 [facility] Comment on above: Performed By: #### 2 60599 #### [facility],[address] [place] [address] CBC + DIFFon 03-03-2025 ATY LYMP 0 % Normal [facility] Comment on above: Performed By: #### 2 42291 #### [facility],[address] [place] [address] BANDS 0 % Normal 0 - 5 [facility] Comment on above: Performed By: #### 2 30485 #### [facility],[address] [place] [address] Baso # 0.04 x10EE3/UL Normal 0.00 - 0.10 [facility] Comment on above: Performed By: #### 2 11945 #### [facility],[address] [place] [address] Basophils/100 WBC (Bld) 0.4 % Normal 0.0 - 2.0 [facility] Comment on above: Performed By: #### 2 79506 #### [facility],[address] [place] [address] Basophils/100 WBC (Bld) 0.0 % Normal 0.0 - 2.0 [facility] Comment on above: Performed By: #### 2 40069 #### [facility],[address] [place] [address] CBC + DIFF Normal [facility] Comment on above: Result Comment: CBC- COMPLETE BLOOD COUNT Performed By: #### 2 67220 #### [facility],[address] [place] [address] CELL COUNT 100 Normal [facility] Comment on above: Performed By: #### 2 41058 #### [facility],[address] [place] [address] EO 0.0 % Normal 0.0 - 7.0 [facility] Comment on above: Performed By: #### 2 79349 #### [facility],[address] [place] [address] EO # 0.06 x10EE3/UL Normal 0.00 - 0.50 [facility] Comment on above: Performed By: #### 2 13140 #### [facility],[address] [place] [address]69[address] Eosinophils/100 WBC (Bld) 0.7 % Normal 0.0 - 7.0 [facility] Comment on above: Performed By: #### 2 36874 #### [facility],[address] [place] [address] Erythrocyte distribution width (RBC) [Ratio] 13.1 % Normal 12.0 - 15.6 [facility] Comment on above: Performed By: #### 2 42033 #### [address] [address] Hematocrit (Bld) [Volume fraction] 44.5 % Normal 34.0 - 46.0 [facility] Comment on above: Performed By: #### 2 62074 #### [facility],[address] [place] [address]37[address] Hemoglobin (Bld) [Mass/Vol] 15.2 g/dL Normal 12.0 - 16.0 [facility] Comment on above: Performed By: #### 2 13676 #### [address] [address] Lymph # 4.41 x10EE3/UL High 0.80 - 2.80 [facility] Comment on above: Performed By: #### 2 35486 #### [facility],[address] [place] [address] 72381 Lymphocytes/100 WBC (Bld) 51.6 % High 20.0 - 45.0 [facility] Comment on above: Performed By: #### 2 91264 #### [facility],[address] [place] [address] 25146 Lymphocytes/100 WBC (Bld) 57 % High 20 - 45 [facility] Comment on above: Performed By: #### 2 63130 #### [address],[place] [address] MANUAL DIFF SEE BELOW Normal [facility] Comment on above: Performed By: #### 2 76876 #### [facility],[address] [place] [address] MCH (RBC) [Entitic mass] 29 pg Normal 27 - 33 [facility] Comment on above: Performed By: #### 2 08737 #### [facility],[address] [place] [address] MCHC 34 X10 3 Normal 32 - 36 [facility] Comment on above: Performed By: #### 2 93704 #### [facility],[address] [place] [address] MCV (RBC) [Entitic vol] 86 fL Normal 80 - 99 [facility] Comment on above: Performed By: #### 2 81218 #### [facility],[address] [place] [address] META 0 % Normal 0 - 1 [facility] Comment on above: Performed By: #### 2 17865 #### [facility],[address] [place] [address] Metamyelocytes/100 WBC (Bld) 0 % Normal [facility] Comment on above: Performed By: #### 2 59315 #### [facility],[address] [place] [address] [place] # 0.60 x10EE3/UL Normal 0.20 - 1.00 [facility] Comment on above: Performed By: #### 2 61603 #### [facility],[address] [place] [address] MONOS 7 % Normal 0 - 10 [facility] Comment on above: Performed By: #### 2 39410 #### [facility],[address] [place] [address] MONOS % 7.1 % Normal 0.0 - 10.0 [facility] Comment on above: Performed By: #### 2 38331 #### [facility],[address] [place] [address] Morphology Ibrahima (Bld) [Interp] REVIEWED Normal [facility] Comment on above: Performed By: #### 2 63046 #### [facility],[address] [place] [address] 10095 Neut # 3.43 x10EE3/UL Normal 1.50 - 7.10 [facility] Comment on above: Performed By: #### 2 67191 #### [facility],[address] [place] [address] 49702 Neutrophils/100 WBC (Bld) 40.2 % Low 46.0 - 76.0 [facility] Comment on above: Performed By: #### 2 93007 #### [facility],[address] [place] [address]46[address] NRBC 0 /100 Normal [facility] Comment on above: Performed By: #### 2 07405 #### [facility],[address] [place] [address]752 PLATELET 255 x10EE3/UL Normal 150 - 450 [facility] Comment on above: Performed By: #### 2 02792 #### [facility],[address] [place] [address] 19441 Platelet mean volume (Bld) [Entitic vol] 8.7 fL Normal 6.6 - 10.5 [facility] Comment on above: Result Comment: AUTO MATED DIFFERENTIAL Performed By: #### 2 83104 #### [facility] [facility],[address] [place] [address] 82335 RBC 5.20 x 10EE6/UL Normal 4.10 - 5.30 [facility] Comment on above: Performed By: #### 2 30106 #### [facility],[address] [place] [address] 62098 SEGS 36 % Low 46 - 76 [facility] Comment on above: Performed By: #### 2 63712 #### [facility],[address] [place] [address] 69493 WBC 8.6 x 10EE3/UL Normal 4.5 - 10.8 [facility] Comment on above: Performed By: #### 2 21148 #### [facility],[address] [place] [address] 77247 OTHER 0 Normal [facility] Comment on above: Performed By: #### 2 38758 #### [facility],[address] [place] [address] 10390 CBC W Auto Differential pane l (Bld)on 03-03-2025 Basophils (Bld) [#/Vol] 0.01 x10*3/uL Normal 0.00-0.10 [facility] Comment on above: Performed By: #### 5 7021-8 ####CALE Roth ([id number])[facility] ([facility])[address] [place] [address] Basophils/100 WBC (Bld) 0.1 % Normal 0.0-2.0 [facility] Comment on above: Performed By: #### 5 7021-8 ####CALE Roth ([id number])[facility] ([facility])[address] [place] [address] Eosinophils (Bld) [#/Vol] 0.02 x10*3/uL Normal 0.00-0.70 [facility] Comment on above: Performed By: #### 5 7021-8 ####CALE Roht ([id number])[facility] ([facility])[address] [place] [address] Eosinophils/100 WBC (Bld) 0.2 % Normal 0.0-6.0 [facility] Comment on above: Performed By: #### 5 7021-8 ####CALE Roth ([id number])[facility] ([facility])[address] [place] [address] Erythrocyte distribution width (RBC) [Ratio] 11.5 % Normal 11.5-14.5 [facility] Comment on above: Performed By: #### 5 7021-8 ####CALE Roth ([id number])[facility] ([facility])[address] [place] [address] 85655 Hematocrit (Bld) [Volume fraction] 39.2 % Normal 36.0-46.0 [facility] Comment on above: Performed By: #### 5 7021-8 ####CALE CAI L ([id number])[facility] ([facility])[address] [place] [address] 85240 Hemoglobin (Bld) [Mass/Vol] 13.8 g/dL Normal 12.0-16.0 [facility] Comment on above: Performed By: #### 5 7021-8 ####CALE CAI L ([id number])[facility] ([facility])[address] [place] [address] 35362 Immature granulocytes (Bld) [#/Vol] 0.04 x10*3/uL Normal 0.00-0.70 [facility] Comment on above: Performed By: #### 5 7021-8 ####CALE Roth ([id number])[facility] ([facility])[address] [place] [address] 15794 Immature granulocytes/100 WBC (Bld) 0.4 % Normal 0.0-0.9 [facility] Comment on above: Result Comment: Aleisha ture Granulocyte Count (IG) includes promyelocytes, myelocytes and metamyelocytes but does not include bands. Percent differential counts (%) should be interpreted in the context of the absolute cell counts (cells/UL). Performed By: #### 5 7021-8 ####CALE CAI L ([id number])[facility] ([facility])[address] [place] [address] 65219 Lymphocytes (Bld) [#/Vol] 0.98 x10*3/uL Low 1.20-4.80 [facility] Comment on above: Performed By: #### 5 7021-8 ####CALE CAI L ([id number])[facility] ([facility])[address] [place] [address] Lymphocytes/100 WBC (Bld) 9.0 % Normal 13.0-44.0 [facility] Comment on above: Performed By: #### 5 7021-8 ####CALE Roth ([id number])[facility] ([facility])[address] [place] [address] MCH (RBC) [Entitic mass] 29.9 pg Normal 26.0-34.0 [facility] Comment on above: Performed By: #### 5 7021-8 ####CALE Roth ([id number])[facility] ([facility])[address] [place] [address] MCHC (RBC) [Mass/Vol] 35.2 g/dL Normal 32.0-36.0 [facility] Comment on above: Performed By: #### 5 7021-8 ####CALE Roth ([id number])[facility] ([facility])[address] [place] [address] MCV (RBC) [Entitic vol] 85 fL Normal 80-100 [facility] Comment on above: Performed By: #### 5 7021-8 ####CALE Roth ([id number])[facility] ([facility])[address] [place] [address] 32741 Monocytes (Bld) [#/Vol] 0.84 x10*3/uL Normal 0.10-1.00 [facility] Comment on above: Performed By: #### 5 7021-8 ####CALE Roth ([id number])[facility] ([facility])[address] [place] [address] Monocytes/100 WBC (Bld) 7.7 % Normal 2.0-10.0 [facility] Comment on above: Performed By: #### 5 7021-8 ####CALE Roth ([id number])[facility] ([facility])[address] [place] [address] Neutrophils (Bld) [#/Vol] 9.01 x10*3/uL High 1.20-7.70 [facility] Comment on above: Result Comment: Perc ent differential counts (%) should be interpreted in the context of the absolute cell counts (cells/uL). Performed By: #### 5 7021-8 ####CALE Roth ([id number])[facility] ([facility])[address] [place] [address] Neutrophils/100 WBC (Bld) 82.6 % Normal 40.0-80.0 [facility] Comment on above: Performed By: #### 5 7021-8 ####CALE Roth ([id number])[facility] ([facility])[address] [place] [address] Nucleated RBC/100 WBC (Bld) [Ratio] 0.0 /100 WBCs Normal 0.0-0.0 [facility] Comment on above: Performed By: #### 5 7021-8 ####CALE Roth ([id number])[facility] ([facility])[address] [place] [address] Platelets (Bld) [#/Vol] 146 x10*3/uL Low 150-450 [facility] Comment on above: Performed By: #### 5 7021-8 ####CALE Roth ([id number])[facility] ([facility])[address] [place] [address] RBC (Bld) [#/Vol] 4.62 x10*6/uL Normal 4.00-5.20 [facility] Comment on above: Performed By: #### 5 7021-8 ####CALE CAI L ([id number])[facility] ([facility])[address] [place] [address] WBC (Bld) [#/Vol] 10.9 x10*3/uL Normal 4.4-11.3 [facility] Comment on above: Performed By: #### 5 7021-8 ####CALE Roth ([id number])[facility] ([facility])[address] [place] [address] CMP with eGFRon 03-03-2025 AGE 24 years Normal [facility] Comment on above: Performed By: #### 2 67173 ####[facility],[address] [place] [address] 34224 Albumin [Mass/Vol] 4.4 g/dL Normal 3.4 - 5.0 [facility] Comment on above: Performed By: #### 2 31669 ####[facility],[address] [place] [address] 94227 Albumin/Globulin [Mass ratio] 1.3 {ratio} Normal 0.9 - 1.6 [facility] Comment on above: Performed By: #### 2 37522 ####[facility],[address] [place] [address] 64972 ALK PHOS 56 U/L Normal 46 - 116 [facility] Comment on above: Performed By: #### 2 03720 ####[facility],[address] [place] [address] 60958 ALT [Catalytic activity/Vol] 24 U/L Normal 16 - 63 [facility] Comment on above: Performed By: #### 2 16206 ####[facility],[address] [place] [address] 19532 Anion gap [Moles/Vol] 14 mmol/L Normal 10 - 20 [facility] Comment on above: Performed By: #### 2 53666 ####[facility],[address] [place] [address] 98748 AST [Catalytic activity/Vol] 17 U/L Normal 13 - 39 [facility] Comment on above: Performed By: #### 2 17003 ####[facility],[address] [place] [address] 59265 B/C RATIO 16 ratio Normal 0 - 30 [facility] Comment on above: Performed By: #### 2 76087 ####[facility],[address] [place] [address] 37517 Bilirubin [Mass/Vol] 0.4 mg/dL Normal 0.2 - 1.0 [facility] Comment on above: Performed By: #### 2 39532 ####[facility],[address] [place] [address] 03816 Calcium [Mass/Vol] 9.0 mg/dL Normal 8.5 - 10.1 [facility] Comment on above: Performed By: #### 2 96658 ####[facility],[address] [place], [place] [address] Chloride [Moles/Vol] 102 mmol/L Normal 98 - 107 [facility] Comment on above: Performed By: #### 2 73903 ####[facility],[address] [place] [address] CMP with eGFR Normal [facility] Comment on above: Result Comment: COMP REHENSIVE METABOLIC PANEL Performed By: #### 2 96551 ####[facility],[address] [place] [address] 95248 CO2 [Moles/Vol] 27.7 mmol/L Normal 21.0 - 32.0 [facility] Comment on above: Performed By: #### 2 84132 ####[facility],[address] [place] [address] 59568 Creatinine [Mass/Vol] 0.87 mg/dL Normal 0.55 - 1.02 [facility] Comment on above: Performed By: #### 2 82922 ####[facility],[address] [place] [address] 45577 GFR/1.73 sq M.predicted among non-blacks MDRD (S/P/Bld) [Vol rate/Area] mL/min/{1.73_m2} Normal 60 - 999 [facility] Comment on above: Performed By: #### 2 31299 ####[facility],[address] [place] [address] Result Comment: ACCO RDING TO THE NATIONAL KIDNEY DISEASE EDUCATION PROGRAM(NKDE), A NORMAL eGFR IS A VALUE GREATER THAN OR EQUAL TO 60 ML/MIN/1.73 SQ METERS. CHRONIC KIDNEY DISEASE: <60mL/MIN/1.73 SQ METERS KIDNEY FAILURE: <15mL/MIN/1.73 SQ METERS THIS TEST SHOULD ONLY BE USED FOR PATIENTS 18 YEARS OF AGE AND OLDER. Globulin (S) [Mass/Vol] 3.5 g/dL Normal 1.5 - 3.8 [facility] Comment on above: Performed By: #### 2 47879 ####[facility],[address] [place] [address] 76389 Glucose [Mass/Vol] 121 mg/dL High 74 - 106 [facility] Comment on above: Performed By: #### 2 24658 ####[facility],[address] [place] [address] 44905 Potassium [Moles/Vol] 2.7 mmol/L Critically low 3.5 - 5.1 [facility] Comment on above: Result Comment: { CA LLED TO FABIO YODER BY [facility] @ 1422 { READ BACK BY FABIO YODER RA 1420 Performed By: #### 2 45588 ####[facility],[address] [place] [address] 63402 Protein [Mass/Vol] 7.9 g/dL Normal 6.4 - 8.2 [facility] Comment on above: Performed By: #### 2 83314 ####[facility],[address] [place] [address] 72148 Sodium [Moles/Vol] 141 mmol/L Normal 136 - 145 [facility] Comment on above: Performed By: #### 2 42291 ####[facility],[address] [place] [address] 09643 Urea nitrogen [Mass/Vol] 14 mg/dL Normal 7 - 18 [facility] Comment on above: Performed By: #### 2 91453 ####[facility],[address] [place] [address] ANGIO HEAD AND NECK W AND WO IV CONTRASTon 03-03-2025 CT ANGIO HEAD AND NECK W AND WO IV CONTRAST Normal [facility] CT BRAIN W/O CONTRASTon 02-22 CT BRAIN W/O CONTRAST [address] [address] Patient: KIMANI SILVA Phone#: : 2000 Age: 24 Gender: F Pt. Type: ER Account: [id number] Location: 052 Ordering: DR. ANASTASIA HAWLEY Exam Date: 03/03/2025/13:58 Family Phys: Charge Code: 849210 Physician: [place] Order #: [id number] Dose#: 57.50 mGy PROCEDURE: CT BRAIN WITHOUT CONTRAST COMPARISON: None. INDICATIONS: Headache. TECHNIQUE: CT images were obtained without contrast material. All CT scans at this facility use dose modulation, iterative reconstruction, and/or weight based dosing when appropriate to reduce radiation dose to as low as reasonably achievable. IV CONTRAST: No IV contrast used,0ml TOTAL DOSE: 57.50 CTDIvol(mGy) FINDINGS: CEREBRUM: No edema, hemorrhage, mass, acute infarction, or inappropriate atrophy. CEREBELLUM: No edema, hemorrhage, mass, acute infarction, or inappropriate atrophy. BRAINSTEM: No edema, hemorrhage, mass, acute infarction, or inappropriate atrophy. CSF SPACES: There is increased attenuation in the tentorium and posterior fossa subarachnoid space. There is heterogeneous increased attenuation in the distribution the cranial portion of the cerebellum. SKULL: No mass or other significant visible lesion. SINUSES: Limited views demonstrate no significant mucosal thickening or fluid. ORBITS: Limited views are unremarkable. OTHER: Negative. CONCLUSION: 1. Findings consistent with subarachnoid hemorrhage involving the posterior fossa and tentorium. Dictated by: Annika Bentley MD on 03/03/2025 at 14:14 Approved by: Annika Bentley MD on 03/03/2025 at 14:23 Normal [facility] Choriogonadotropin.beta subu niton 03-03-2025 HCG.beta subunit Qn m[IU]/mL Normal <5 [facility] Comment on above: Order Comment: Total HCG measurement is performed using the Siemens [employer]ell[employer] immunoassay which detects intact HCG and free beta HCG subunit. This test is not indicated for use as a tumor marker. HCG testing is performed using a different test methodology at [facility] than other legacy [facility]. Direct result comparison should only be made within the same method. Performed By: #### 2 1198-7 ####CALE Roth ([id number])[facility] ([facility])[address] [place] [address] 62506 Comprehensive metabolic 2000 panelon 03-03-2025 Albumin BCP dye [Mass/Vol] 4.7 g/dL Normal 3.4-5.0 [facility] Comment on above: Performed By: #### 2 4323-8 ####CALE Roth ([id number])[facility] ([facility])[address] [place] [address] 26716 Performed By: #### 2 4362-6 ####CALE Roth ([id number])[facility] ([facility])[address] [place] [address] 00913 ALP [Catalytic activity/Vol] 40 U/L Normal 33-110 [facility] Comment on above: Performed By: #### 2 4323-8 ####CALE Roth ([id number])[facility] ([facility])[address] [place] [address] 79544 ALT With P-5'-P [Catalytic activity/Vol] 13 U/L Normal 7-45 [facility] Comment on above: Result Comment: Rehana ents treated with Sulfasalazine may generate falsely decreased results for ALT. Performed By: #### 2 4323-8 ####CALE Roth ([id number])[facility] ([facility])[address] [place] [address] 42794 Anion gap [Moles/Vol] 16 mmol/L Normal 10-20 [facility] Comment on above: Performed By: #### 2 4323-8 ####CALE Roth ([id number])[facility] ([facility])[address] [place] [address] 90658 Performed By: #### 2 4362-6 ####CALE Roth ([id number])[facility] ([facility])[address] [place] [place] [address] AST With P-5'-P [Catalytic activity/Vol] 20 U/L Normal 9-39 [facility] Comment on above: Performed By: #### 2 4323-8 ####CALE Roth ([id number])[facility] ([facility])[address] [place] [address] Bilirubin [Mass/Vol] 0.8 mg/dL Normal 0.0-1.2 [facility] Comment on above: Performed By: #### 2 4323-8 ####CALE Roth ([id number])[facility] ([facility])[address] [place] [address] Calcium [Mass/Vol] 9.1 mg/dL Normal 8.6-10.[address] [facility] Comment on above: Performed By: #### 2 4323-8 ####CALE Roth ([id number])[facility] ([facility])[address] [facility] [place] [address] Performed By: #### 2 4362-6 ####CALE Roth ([id number])[facility] ([facility])[address] [facility] [place] [address] Chloride [Moles/Vol] 105 mmol/L Normal 98-107 [facility] Comment on above: Performed By: #### 2 4323-8 ####CALE Roth ([id number])[facility] ([facility])[address] [facility] [place] [address] Performed By: #### 2 4362-6 ####CALE Roth ([id number])[facility] ([facility])[address] [facility] [place] [address] CO2 [Moles/Vol] 22 mmol/L Normal 21-32 [facility] Comment on above: Performed By: #### 2 4323-8 ####CALE Roth ([id number])[facility] ([facility])[address] [place] [address] Performed By: #### 2 4362-6 ####CALE CAI L ([id number])[facility] ([facility])[address] [place] [address] Creatinine [Mass/Vol] 0.62 mg/dL Normal 0.50-1.05 [facility] Comment on above: Performed By: #### 2 4323-8 ####CALE RUTLEDGEER L ([id number])[facility] ([facility])[address] [place] [address] 29483 Performed By: #### 2 4362-6 ####CALE CAI L ([id number])[facility] ([facility])[address] [place] [address] 54142 Glomerular filtration rate >90 Normal >60 [facility] Comment on above: Result Comment: Calc ulations of estimated GFR are performed using the 2020 CKD-EPI Study Refit equation without the race variable for the IDMS-Traceable creatinine methods.https://jasn.asnjournals.org/content/early/ASN .8384698011 Performed By: #### 2 4323-8 ####CALE RUTLEDGEER L ([id number])[facility] ([facility])[address] [place] [address] 56054 Performed By: #### 2 4362-6 ####CALE CAI L ([id number])[facility] ([facility])[address] [place] [address] 88882 Glucose [Mass/Vol] 149 mg/dL High 74-[address] [facility] Comment on above: Performed By: #### 2 4323-8 ####CALE RUTLEDGEER L ([id number])[facility] ([facility])[address] [place] [address] 06687 Performed By: #### 2 4362-6 ####CALE RUTLEDGEER L ([id number])[facility] ([facility])[address] [place] [address] 86806 Potassium [Moles/Vol] 3.6 mmol/L Normal 3.5-5.3 [facility] Comment on above: Performed By: #### 2 4323-8 ####CALE Roth ([id number])[facility] ([facility])[address] [place] [address] 84803 Performed By: #### 2 4362-6 ####CALE Roth ([id number])[facility] ([facility])[address] [place] [address] 01896 Protein [Mass/Vol] 7.1 g/dL Normal 6.4-8.[address] [facility] Comment on above: Performed By: #### 2 4323-8 ####CALE Roth ([id number])[facility] ([facility])[address] [place] [address] 58224 Sodium [Moles/Vol] 139 mmol/L Normal 136-[address] [facility] Comment on above: Performed By: #### 2 4323-8 ####CALE Roth ([id number])[facility] ([facility])[address] [place] [address] 04829 Performed By: #### 2 4362-6 ####CALE Roth ([id number])[facility] ([facility])[address] [place] [address] 19606 Urea nitrogen [Mass/Vol] 11 mg/dL Normal 6-23 [facility] Comment on above: Performed By: #### 2 4323-8 ####CALE Roth ([id number])[facility] ([facility])[address] [place] [address] 97905 Performed By: #### 2 4362-6 ####CALE Roth ([id number])[facility] ([facility])[address] [place] [address] 88231 Gas panel (BldV)on 5 Anion gap 4 (BldV) [Moles/Vol] 15.0 mmol/L Normal 10.0-25.0 [facility] Comment on above: Performed By: #### 2 4339-4 ####CALE Roth (13395)[facility] ([facility])[address] [place] [address] Base excess Calc (BldV) [Moles/Vol] -2.3000 mmol/L Low -2.0-3.0 [facility] Comment on above: Performed By: #### 2 4339-4 ####CALE Roth ([id number])[facility] ([facility])[address] [place] [address] Calcium.ionized (BldV) [Moles/Vol] 1.16 mmol/L Normal 1.10-1.33 [facility] Comment on above: Performed By: #### 2 4339-4 ####CALE Roth ([id number])[facility] ([facility])[address] [place] [address] 39837 Chloride (BldV) [Moles/Vol] 103 mmol/L Normal 98-107 [facility] Comment on above: Performed By: #### 2 4339-4 ####CALE Roth ([id number])[facility] ([facility])[address] [place] [address] CO2 (BldV) [Partial pressure] 47 mm Hg Normal 41-51 [facility] Comment on above: Performed By: #### 2 4339-4 ####CALE Roth ([id number])[facility] ([facility])[address] [place] [address] Glucose [Mass/Vol] 155 mg/dL High 74-[address] [facility] Comment on above: Performed By: #### 2 4339-4 ####CALE Roth ([id number])[facility] ([facility])[address] [place] [address] HCO3 (Bld) [Moles/Vol] 24.2 mmol/L Normal 22.0-26.0 [facility] Comment on above: Performed By: #### 2 4339-4 ####CALE Roth ([id number])[facility] ([facility])[address] [place] [address] 85942 Hematocrit Est (Bld) [Volume fraction] 42.0 % Normal 36.0-46.0 [facility] Comment on above: Performed By: #### 2 4339-4 ####CALE Roth ([id number])[facility] ([facility])[address] [place] [address] Hemoglobin (Bld) [Mass/Vol] 14.1 g/dL Normal 12.0-16.0 [facility] Comment on above: Performed By: #### 2 4339-4 ####CALE Roth ([id number])[facility] [facility])[address] [place] [address] Lactate (BldV) [Moles/Vol] 2.4 mmol/L High 0.4-2.0 [facility] Comment on above: Performed By: #### 2 4339-4 ####CALE Roth ([id number])[facility] ([facility])[address] [place] [address] Oxygen (BldV) [Partial pressure] 42 mm Hg Normal 35-45 [facility] Comment on above: Performed By: #### 2 4339-4 ####CALE Roth ([id number])[facility] ([facility])[address] [place] [address] Oxygen saturation in Venous blood 69 % Normal 45-75 [facility] Comment on above: Performed By: #### 2 4339-4 ####CALE Roth ([id number])[facility] ([facility])[address] [place] [address] Oxyhemoglobin (BldV) [Mass fraction] 67.2 % Normal 45.0-75.0 [facility] Comment on above: Performed By: #### 2 4339-4 ####CALE Roth ([id number])[facility] ([facility])[address] [place] [address] pH (BldV) 7.32 [pH] Low 7.33-7.43 [facility] Comment on above: Performed By: #### 2 4339-4 ####CALE Roth ([id number])[facility] ([facility])[address] [place] [address] Potassium (BldV) [Moles/Vol] 3.9 mmol/L Normal 3.5-5.3 [facility] Comment on above: Performed By: #### 2 4339-4 ####CALE Roth ([id number])[facility] ([facility])[address] [place] [address] Sodium (BldV) [Moles/Vol] 138 mmol/L Normal 136-145 [facility] Comment on above: Performed By: #### 2 4339-4 ####CALE Roth ([id number])[facility] ([facility])[address] [place] [address] PROTHROMBIN TIME AND INRon 0 03-03-2025 INR Coag (PPP) [Relative time] 1.1 {INR} Normal 0.8 - 1.2 [facility] Comment on above: Result Comment: T HE HEMOSIL THROMBOPLASTIN REAGENT USED IN THE PROTHROMBIN TIME TEST INTERACTS WITH THE DRUG CUBICIN (DAPTOMYCIN) AND WILL RESULT IN FALSELY ELEVATED PT / INR RESULTS INR INTERPRETATION INR INDICATION PREVENTION AND TREATMENT OF THROMBOEMBOLISM ASSOCIATED WITH: 2.0 - 3.0 ATRIAL FIBRILLATION, BIOPROSTHETIC HEART VALVES, PULMONARY EMBOLISM, VENOUS THROMBOSIS, SYSTEMIC EMBOLISM POST MYOCARDIAL INFARCTION 2.5 - 3.5 MECHANICAL HEART VALVES Performed By: #### 2 43897 #### [facility],[address] [place] [address] PROTHROMBIN TIME AND INR Normal [facility] Comment on above: Result Comment: PROT HROMBIN TIME AND INR Performed By: #### 2 52285 #### [facility],[address] [place] [address] PT-COUMADIN 12.6 sec Normal 9.3 - 14.1 [facility] Comment on above: Performed By: #### 2 05545 #### [facility],[address] [place] [address] PT and aPTT panel Coag (PPP) on 03-03-2025 aPTT Coag (PPP) [Time] 20 s Low 26-36 [facility] Comment on above: Order Comment: The A PTT is no longer used for monitoring Unfractionated Heparin Therapy. For monitoring Heparin Therapy, use the Heparin Assay. Performed By: #### 3 4529-8 ####CALE Roth ([id number])[facility] ([facility])[address] [place] [address]359 INR Coag (PPP) [Relative time] 1.2 High 0.9-1.1 [facility] Comment on above: Order Comment: The A PTT is no longer used for monitoring Unfractionated Heparin Therapy. For monitoring Heparin Therapy, use the Heparin Assay. Performed By: #### 3 4529-8 ####CALE Roth ([id number])[facility] ([facility])[address] [place] [address] 13720 PT Coag (PPP) [Time] 12.8 s High 9.8-12.4 [facility] Comment on above: Order Comment: The A PTT is no longer used for monitoring Unfractionated Heparin Therapy. For monitoring Heparin Therapy, use the Heparin Assay. Performed By: #### 3 4529-8 ####CALE Roth ([id number])[facility] ([facility])[address] [place] [address] 46642 Renal function 2000 panelon 03-03-2025 Phosphate [Mass/Vol] 2.9 mg/dL Normal 2.5-4.9 [facility] Comment on above: Performed By: #### 2 4362-6 ####CALE Roth ([id number])[facility] ([facility])[address] [place] [address]006 SEDRATEon 03-03-2025 SEDRATE 2 mm/hr Normal 0 - 30 [facility] Comment on above: Performed By: #### 2 43622 #### [facility],[address] [place] [address] Urinalysis complete W Reflex Culture panel (U)on 03-03-2025 Appearance (U) Clear Normal Clear [facility] Comment on above: Performed By: #### 5 8077-9 ####CALE Roth ([id number])[facility] ([facility])[address] [place] [address]13 Bilirubin (U) [Mass/Vol] Negative Normal NEGATIVE [facility] Comment on above: Performed By: #### 5 8077-9 ####CALE Roth ([id number])[facility] ([facility])[address] [place] [address] 25188 Color (U) Light-Yellow Normal Light-Yello w, Yellow, Dark-Yellow [facility] Comment on above: Performed By: #### 5 8077-9 ####CALE Roth ([id number])[facility] ([facility])[address] [place] [address]3946 Glucose Auto test strip (U) [Mass/Vol] 50 (TRACE) Abnormal Normal [facility] Comment on above: Performed By: #### 5 8077-9 ####CALE CAI L ([id number])[facility] ([facility])[address] [place] [address] 60003 Ketones (U) [Mass/Vol] 10 (1+) Abnormal NEGATIVE [facility] Comment on above: Performed By: #### 5 8077-9 ####CALE Roth ([id number])[facility] ([facility])[address] [place] [address] Leukocyte esterase Auto test strip Ql (U) Negative Normal NEGATIVE [facility] Comment on above: Performed By: #### 5 8077-9 ####CALE CAI L ([id number])[facility] ([facility])[address] [place] [address] Nitrite Auto test strip Ql (U) Negative Normal NEGATIVE [facility] Comment on above: Performed By: #### 5 8077-9 ####CALE CAI L ([id number])[facility] ([facility])[address] [place] [address]36[address] pH (U) 7.0 [pH] Normal 5.0, 5.5, 6.0, 6.5, 7.0, 7.5, 8.0 [facility] Comment on above: Performed By: #### 5 8077-9 ####CALE Roth ([id number])[facility] ([facility])[address] [place] [address] Protein (U) [Mass/Vol] Negative Normal NEGATIVE, 10 (TRACE), 20 (TRACE) [facility] Comment on above: Performed By: #### 5 8077-9 ####CALE RUTLEDGEER L ([id number])[facility] ([facility])[address] [place] [address] 61156 RBC (U) [#/Vol] Negative Normal NEGATIVE [facility] Comment on above: Performed By: #### 5 8077-9 ####CALE CAI L ([id number])[facility] ([facility])[address] [place] [address]30 Specific gravity (U) [Rel density] 1.040 Normal 1.005-1.035 [facility] Comment on above: Performed By: #### 5 8077-9 ####CALE CAI L ([id number])[facility] ([facility])[address] [place] [address] Urobilinogen (U) [Mass/Vol] Normal Normal Normal [facility] Comment on above: Performed By: #### 5 8077-9 ####CLAE RUTLEDGEER L ([id number])[facility] ([facility])[address] [place] [address] 70624 VERAB/VERIFY ABORHon 025 ABO group Nom (Bld) B [facility] Comment on above: Order Comment: Thi s is for confirming/verifying history of ABORh on file for transfusion of blood products. If this is not for transfusion, please order an ABO/RH [[id number]]. If you have any questions or unsure what to order, please call the blood bank. Performed By: #### V ERAB ####CALE Roth ([id number])[facility] ([facility])[address] [place] [phone] D Ag Ql (Bld) Positive Normal [facility] Comment on above: Order Comment: Thi s is for confirming/verifying history of ABORh on file for transfusion of blood products. If this is not for transfusion, please order an ABO/RH [[id number]]. If you have any questions or unsure what to order, please call the blood bank. Performed By: #### V ERAB ####CALE Roth ([id number])[facility] ([facility])[address] [place] [phone] XR ABDOMEN 1 VIEWon 03-03-20 XR ABDOMEN [address] [facility] XR CHEST 1 VIEWon 03-03-2025 XR CHEST 1 VIEW Normal [facility] Vital Signs Date Time Vital Sign Value Performing Clinician Facility 03-25-2025 21:20-0400 Body temperature [facility] Comment on above: Result Comment: NOTE: Patient Results ar e Not Corrected for Temperature Performed By: #### 9 3685-6 ####CALE Roth ([id number])[facility] ([facility])[address] [place] [address] 64342 03-25-2025 21:20-0400 SaO2% (BldA) [Mass fraction] 100 % [facility] Comment on above: Performed By: #### 77779-3 ####CALE Roth ([id number])[facility] ([facility])[address] [place] [address] 16327 03-22-2025 14:45-0400 Body temperature 37.0 degrees Celsius [facility] Comment on above: Result Comment: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
--- NOTE | 2025-04-20 20:25 | CT_ITS ---
PROCEDURE: CT BRAIN/HEAD WITHOUT CONTRAST 04/20/2025 REASON FOR EXAM: MENTAL STATUS CHANGE TECHNIQUE: Procedure Code: CTBR Modality: CT Procedure: BRAIN/HEAD WITHOUT CONTRAST Coronal and Sagittal reconstruction series were provided. One or more dose reduction techniques were used (e.g., Automated exposure control, adjustment of the mA and/or kV according to patient size, use of iterative reconstruction technique. 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 Metallic surgical clips/embolization material in the posterior fossa surgical bed with similar appearing probable cystic encephalomalacia along the cerebellar vermis. Right parietal approach ventriculoperitoneal shunt with catheter tip at the anterior body of right lateral ventricle. Interval decreased caliber of the ventricular system which is now slit-like, with basilar cistern effacement, suggestive of over-shunting. No evidence of acute intracranial hemorrhage, mass-effect or midline shift, or acute appearing territorial infarct. Unremarkable orbital contents. Well-aerated visualized paranasal sinuses and bilateral mastoid air cells. CT/Brain/Head without Contrast IMPRESSION: Postoperative changes to the posterior fossa as described. Right parietal approach FIREARMS INSTRUCTOR shunt in stable positioning. Evidence of over-shunti ng with slit-like ventricular caliber and basilar cistern effacement since prior exam. Neurosurgical consult suggested. No acute intracranial hemorrhage, mass-effect or evidence of acute territorial infarct. Reading Location: [id number]
== END | disposition home or self-care (01) ==
PROVIDERS: PCP Student in an Organized Health Care Education/Training Program; Referring Provider Family Medicine Geriatric Medicine; Visit Provider Family Medicine Geriatric Medicine
DX: R41.82 Altered mental status, unspecified (principal)
CPT/HCPCS: 70450

== ENCOUNTER 2025-04-26 17:37 | Inpatient (IN) | payer SELFPAY, OTHER ==
[2025-04-26 19:45] VITALS: BP 115/81; PULSE 103; RESP 16; RESP 18; TEMP 36.3; O2SAT 98
[2025-04-26] MEDS: Jevity 1.5 1,000 ML 45 ML GT (20:02)
[2025-04-26 20:07] VITALS: BMI 13.8
--- NOTE | 2025-04-26 20:26 | PCM.HP.STD ---
HPI - General General Date of Admission: 04/26/25 Date of Service: 04/26/25 Chief Complaint: Here for rehabilitation. HPI Narrative KIMANI SILVA, is a 24 F who presents with following: TCU resident ruptured aneurysm, FEED MILL MANAGER shunt, PEG. 04/20/2025 Change in mental status, lack of progression in therapy. CT head showed slit like ventricles c/w overshunting. 04/20/2025 Admit to [facility]. 04/21/2025 Certas shunt dialed from 1 to 3 ( Lower number means more shunting, Higher number means less shunting ). 04/22/2025 No acute events overnight, Certas dialed to 3. Voiding, having BM's. CT head ordered. 04/23/2025 CT head ventricles minimally increased. Clinically improving with shunt dialed up, however not yet back to baseline. MRI brain w/wo contrast ordered, hypotensive in MRI. 04/24/2025 CTH minimal decrease in ventricles, Certas dialed to 4. 04/25/2025 MRI brain stable, no acute infarcts. 04/26/2025 CTH stable. 04/26/2025 Admit to TCU with debility, here for rehabilitation, strengthening, prior to discharge home with family. [facility] Medical History (Updated 04/26/25 @ 20:[address] Benjy Gonzalez MD) Brain aneurysm Bleeding in brain due to brain aneurysm Hemorrhagic stroke Debility Home Medications ?Medication ?Instructions ?Recorded ?Last Taken ?Type B complex-vitamin C-folic acid ER 1 tab PO DAILY supplement 04/07/25 Unknown History 400 mcg tablet,extended release acetaminophen 325 mg/10.15 mL oral 650 mg feeding tube Q6H PRN pain 04/07/25 Unknown History solution (scale score 1-10) amantadine HCl 50 mg/5 mL oral 100 mg feeding tube BID 04/07/25 Unknown History solution involuntary movement bisacodyl 10 mg rectal suppository 10 mg [place] DAILY PRN constipation 04/07/25 Unknown History carboxymethylcellulose sodium 1 % 1 drp EACH EYE DAILY PRN dry eyes 04/07/25 Unknown History eye drops (Artificial Tears (carboxymethylcellulose)) esomeprazole magnesium 40 mg 40 mg feeding tube BID reflux 04/07/25 Unknown History capsule,delayed release (Nexium) heparin (porcine) 5,000 unit/mL (1 5,000 unit subcut Q8H prophylaxis 04/07/25 04/26/25 10:15 History mL) injection cartridge levetiracetam 500 mg/5 mL (5 mL) 500 mg feeding tube BID seizures 04/07/25 Unknown History oral solution lorazepam 0.5 mg tablet (Ativan) 0.5 mg feeding tube Q6H PRN mild 04/07/25 Unknown History restlessness/agitation lorazepam 1 mg tablet (Ativan) 1 mg feeding tube Q6H PRN severe 04/07/25 04/25/25 10:45 History restlessness/agitation metoclopramide HCl 5 mg/5 mL oral 5 mg feeding tube Q8H 04/07/25 Unknown History solution digestion/nausea metoprolol tartrate 25 mg tablet 75 mg feeding tube Q12H BP/pulse 04/07/25 04/26/25 08:45 History nystatin 100,000 unit/mL oral 500,000 unit PO Q6H thrush 04/07/25 Unknown History suspension ondansetron 4 mg disintegrating 4 mg feeding tube Q6H PRN nausea 04/07/25 Unknown History tablet polyethylene glycol 3350 17 17 g feeding tube BID constipation 04/07/25 Unknown History gram/dose oral powder sennosides 8.6 mg-docusate sodium 2 tab-cap PO BID bowels 04/07/25 04/26/25 08:35 History 50 mg capsule (Senna Plus) thiamine HCl (vitamin B1) 100 mg 100 mg feeding tube DAILY 04/07/25 Unknown History tablet supplement zinc sulfate 50 mg zinc (220 mg) 50 mg PO DAILY supplement 04/07/25 Unknown History capsule (Orazinc) bacitracin 500 unit/gram topical 1 applic topical BID surgical 04/26/25 Unknown History ointment incision insulin lispro 100 unit/mL 5 unit subcut Q6H Tube feed 04/26/25 04/26/25 12:05 History subcutaneous pen (Humalog KwikPen (U-100) Insulin) melatonin 5 mg capsule mg feeding tube QHS PRN sleep 04/26/25 04/25/25 20:30 History Allergy/AdvReac Type Severity Reaction Status Date / Time No Known Allergies Allergy Verified 04/07/25 14:14 Surgical History Status post insertion of percutaneous endoscopic gastrostomy (PEG) tube History of craniectomy Social History household members: spouse Smoking Status: Never smoker alcohol intake: never substance use type: does not use ROS Review of Systems ROS Unobtainable: due to mental condition, due to mental status and other Constitutional Constitutional: Denies chills, fever(s) or weight gain ENT HEENT: Denies headache(s), nasal congestion or nasal discharge Cardiovascular Cardiovascular: Denies chest pain or palpitations Respiratory/Chest Respiratory/Chest: Denies cough, excessive phlegm production or shortness of breath with exertion Gastrointestinal Gastrointestinal: Denies abdominal pain, nausea or vomiting Genitourinary Genitourinary: Denies dysuria Musculoskeletal Musculoskeletal: Denies joint pain or joint swelling Integumentary Integumentary: Denies rash or wounds Neurologic Neurologic: Denies focal weakness, numbness or tingling Psychiatric Psychiatric: Denies anxiety, auditory hallucinations, depression, homicidal ideation or suicidal ideation Vital Signs Vital Signs Vital Signs: Weight Weight: 34.473 kg Body Mass Index (BMI) 13.8 Physical Exam Const alert General Appearance: cooperative HEENT normocephalic Eyes PERRL and EOMs intact bilaterally Neck supple, no JVD and no carotid bruits Resp normal respiratory effort, normal air movement and clear to auscultation bilaterally Cardio regular rate and regular rhythm GI normal to inspection, nondistended, normoactive bowel sounds, non-tender and non-distended GI Narrative: PEG. Extremity normal capillary refill General Extremity: Negative for edema Skin no rashes or lesions noted General Skin Exam: no breakdown Neuro moves all extremities Speech: speech abnormal Details: Positive for complete aphasia Psych affect normal Appearance: appropriate Assessment & Plan Assessment/Plan (1) Debility: (2) Bleeding in brain due to brain aneurysm: (3) Brain aneurysm: (4) Hemorrhagic stroke: (5) Status post insertion of percutaneous endoscopic gastrostomy (PEG) tube: (6) Slit ventricle syndrome: PLAN: Plan 24 year old female with below past medical history significant for hemorrhagic stroke 2/2 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 Debility - PT/OT. Dysphagia/PEG - ST. Pain - Tylenol 650mg q6h prn. Bowel - Miralax 17gm bid, senna/colace 2 tablets bid, Dulcolax 10mg pr daily prn. Adult immunization - Administer pneumonia vaccine, covid vaccine, flu vaccine as appropriate. DVT prophylaxis - Lovenox 40mg sc daily. Brain injury - Amantadine 100mg bid. Skin irritation - Bacitracin ointment topical bid. GERD - Famotidine 20mg bid. Nutrition - Jevity 1.5 45mL/hour. Insomnia - Melatonin 5mg qhs prn. Nausea - Reglan 5mg q8 thru 04/29/2025, Zofran 4mg q6 prn. Tachycardia - Metoprolol 75mg q12. Dry Eyes - Artificial tears 1gtt ou q1h prn. Leg cramps - Vitamin B complex 1 capsule daily. The following psychotropic medication was present on admission: Lorazepam 1mg q6 prn. Psychotropic medication therapy is indicated for a diagnosis of: Anxiety/restlessness. Based on my clinical evaluation, continuation of the medication is necessary at this time. Gradual dose reduction plan (select one): ____ GDR will be attempted. Will monitor patient symptoms and behaviors in response to GDR. __x__ GRD contraindicated. 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
--- NOTE | 2025-04-26 21:00 | NURSING ---
Addendum entered by Antonio Echevarria 04/26/25 23:58: Reviewed pt's medication list with Ton. would like Reglan and amantadine d/c'd. requesting Miralax and Senna to be changed from BID to PRN. Original Note: Spoke with Dr. Gonzalez via telephone to clarify Lovenox order since pt has history of brain bleed. Per Dr. Gonzalez, reina to continue Lovenox as ordered. Pt requesting blood glucose checks be changed to BID instead of q6H. Per Dr. Gonzalez, reina to change blood glucose test to BID. Dr. Gonzalez requested this nurse complete a medication review with pt's since medications that were d/c'd during prior admission per request were restarted. Per reina Dumont to discontinue any medications does not want pt to receive. Orders verified via readback.
[2025-04-26 21:56] VITALS: BP 101/69; PULSE 98
[2025-04-26 21:59] VITALS: PULSE 98
[2025-04-26] MEDS: BACITRACIN 15 GM Tube 1 APPLIC TOPICAL (22:00)
[2025-04-26] MEDS: MELATONIN 10 MG TABLET 5 MG PO (22:02)
--- NOTE | 2025-04-27 04:40 | NURSING ---
During HS medication administration on 04/26/25, no residual noted from PEG tube. PEG tube placement verified via air bolus. Pt tolerated well.
[2025-04-27 05:35] LABS: Hematocrit 36.9 % (37-47); Hemoglobin 12.0 g/dL (12.0-15.0); Immature Granulocytes Count 0.070 X10^3/uL (0.0-0.0); Mean Corp Hgb Conc 32.5 g/dL (32-36); Mean Corpuscular Volume 88.3 fL (81-99); Mean Platelet Vol. 10.7 fl (6.2-12.0); NRBC Flagged by Analyzer 0 % (0-5); Platelet Count 249 K/mm3 (150-450); RBC Distribution Width CV 12.8 % (11.6-14.6); RBC Distribution Width SD 41.7 fl (35.1-43.9); Red Blood Count 4.18 M/mm3 (4.2-5.4); White Blood Count 4.5 K/mm3 (4.4-11.0)
[2025-04-27 05:56] LABS: Anion Gap 9 (5-15); BUN 16 mg/dL (4-19); BUN/Creat Ratio 45.3 RATIO (10-20); Calcium,Total 9.4 mg/dL (7.6-11.0); Carbon Dioxide 30.5 mmol/L (21.0-32.0); Chloride 99 mmol/L (98-108); Estimated Creatinine Clearance 137.21 ml/min (50-250); Glucose 141 mg/dL (70-99); Potassium 4.0 mmol/L (3.3-5.1)
[2025-04-27 09:42] VITALS: PULSE 107
[2025-04-27] MEDS: Vitamin B Comp W-C Capsule 1 CAP GT (09:42)
[2025-04-27] MEDS: BACITRACIN 15 GM Tube 1 APPLIC TOPICAL ×2 (09:43→21:26)
[2025-04-27 10:01] VITALS: BP 104/71; PULSE 107; RESP 16; TEMP 36.4; O2SAT 95
[2025-04-27] MEDS: Fluconazole Suspension 40 MG/ML 35 ML Bottle 200 MG GT (12:37)
[2025-04-27] MEDS: 0.9% Saline Lock 10 ML Syringe IV (12:47)
[2025-04-27 15:36] VITALS: BMI 15.7
--- NOTE | 2025-04-27 15:39 | PCM.PN.DRR ---
Documented by User: Marcos Rod 04/27/25 15:56 TCU RX Drug Regimen Review Subjective/Objective Subjective/Objective Subjective: TCU admission note. 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 Objective: Allergies No Known Allergies Allergy (Verified 04/07/25 14:14) Current Medications Generic Name Dose Route Start Last Admin Trade Name Freq PRN Reason Stop Dose Admin Acetaminophen 650 mg 04/26/25 18:51 Acetaminophen 650 Mg/20 Ml Udc GT Q6H PRN pain (scale score 1-10) Bacitracin 1 applic 04/26/25 22:00 04/27/25 09:43 Bacitracin 15 Gm Tube TOPICAL 1 applic BID [place] Administration Bisacodyl 10 mg 04/26/25 18:28 Bisacodyl 10 Mg Suppository RC DAILY PRN CONSTIPATION Enoxaparin Sodium 40 mg 04/27/25 10:00 04/27/25 09:43 Enoxaparin 40 Mg/0.4 Ml Syringe SC 40 mg DAILY [place] Administration Famotidine 20 mg 04/26/25 22:00 04/27/25 09:42 Famotidine 20 Mg Tablet GT 20 mg BID [place] Administration Fluconazole 200 mg 04/27/25 12:30 04/27/25 12:37 Fluconazole Suspension 40 Mg/Ml 35 Ml Bottle GT 05/04/25 12:31 200 mg DAILY [place] Administration Glycerin/Hypromellose/Polyethylene 1 drp 04/26/25 18:50 Glycerin/Hypromellose/Iep420 15 Ml Bottle EACH EYE DAILY PRN dry eyes Enteral Nutritional Formula 1,000 mls @ 45 mls/hr 04/26/25 18:25 04/26/25 20:02 Jevity 1.5 GT 45 mls/hr .[id number] [place] Administration Sodium Chloride 250 mls @ 15 mls/hr 04/27/25 00:05 IV .[id number] PRN Saline Flush Sodium Chloride 250 mls @ 15 mls/hr 04/27/25 00:05 IV .[id number] PRN Additional IVPB Infusion Lorazepam 1 mg 04/26/25 18:28 Lorazepam 1 Mg Tablet GT Q6H PRN severe restlessness/agitation Melatonin 5 mg 04/26/25 18:44 04/26/25 22:02 Melatonin 10 Mg Tablet PO 5 mg QHS PRN Administration sleep Metoprolol Tartrate 75 mg 04/26/25 18:45 04/27/25 09:42 Metoprolol Tartrate 25 Mg Tablet GT 75 mg Q12 [place] Administration Protocol Multivitamins 1 cap 04/27/25 10:00 04/27/25 09:42 Vitamin B Comp W-C Capsule GT 1 cap DAILY [place] Administration Ondansetron HCl 4 mg 04/26/25 18:32 Ondansetron Odt 4 Mg Tablet GT Q6H PRN NAUSEA Polyethylene Glycol 17 gm 04/27/25 07:50 Polyethylene Glycol 3350 17 Gm Packet GT BID PRN Constipation Senna/Docusate Sodium 2 tablet 04/27/25 07:50 Senna/Docusate Sodium 1 Tablet PO BID PRN Constipation Sodium Chloride 10 - 40 ml 04/27/25 12:32 04/27/25 12:47 0.9% Saline Lock 10 Ml Syringe IV 10 ml UD PRN Administration SALINE FLUSH Problem List Slit ventricle syndrome (Acute) Status post insertion of percutaneous endoscopic gastrostomy (PEG) tube (Acute) Debility (Acute) Hemorrhagic stroke (Acute) Bleeding in brain due to brain aneurysm (Acute) Brain aneurysm (Acute) Vital Signs Temp Pulse Resp BP Pulse Ox O2 Del Method 97.5 F L 107 H 16 104/71 95 Room Air 04/27/25 10:01 04/27/25 10:01 04/27/25 10:01 04/27/25 10:01 04/27/25 10:01 04/27/25 10:01 Oxygen Delivery Method Room Air Weight: 39.009 kg Body Mass Index (BMI) 15.7 Sodium 139 mmol/L (133-145) 04/27/25 05:20 Potassium 4.0 mmol/L (3.3-5.1) 04/27/25 05:20 Chloride 99 mmol/L (98-108) 04/27/25 05:20 Carbon Dioxide 30.5 mmol/L (21.0-32.0) 04/27/25 05:20 Anion Gap 9 (5-15) 04/27/25 05:20 BUN 16 mg/dL (4-19) 04/27/25 05:20 Creatinine 0.35 mg/dL (0.70-1.20) L 04/27/25 05:20 Est GFR (MDRD) Non-Af 148 (>60) 04/27/25 05:20 BUN/Creatinine Ratio 45.3 RATIO (10-20) H 04/27/25 05:20 Glucose 141 mg/dL (70-99) H 04/27/25 05:20 Assessment/Plan: 1. Pain: acetaminophen 650 mg PO Q6H PRN pain. The patient has not required any PRN doses of acetaminophen so far this admission. Please continue to monitor pain levels, PRN medication usage, and LFTs (AST/ALT = 22/38 U/L on 04/20/25). 2. Bowel: polyethylene glycol 17 grams PO BID PRN constipation, senna/docusate 2 tablets PO BID PRN constipation, bisacodyl 10 mg [place] daily PRN constipation. The patient has not required any PRN doses of polyethylene glycol, senna/docusate or bisacodyl so far this admission, and the patient's last documented bowel movement was on 04/27/25. Please continue to monitor for constipation, diarrhea, bowel movements, and PRN medication usage. 3. DVT prophylaxis: enoxaparin 40 mg SC daily. Please continue to monitor for s/s of a DVT such as pain/erythema/edema in an extremity, for bleeding/excessive bruising, hemoglobin levels (Hgb = 12.0 g/dL on 04/27/25), platelet counts (Plt = 249 K/mm3 on 04/27/25), and renal function (serum creatinine = 0.35 mg/dL with creatinine clearance ~ 137 mL/min on 04/27/25). 4. GERD: famotidine 20 mg PO BID. Please continue to monitor for s/s of GERD, for delirium, renal function (serum creatinine = 0.35 mg/dL with creatinine clearance ~ 137 mL/min on 04/27/25), and platelet counts (Plt = 249 K/mm3 on 04/27/25). 5. Nausea: ondansetron 4 mg PO Q6H PRN nausea. The patient has not required any PRN doses of ondansetron so far this admission. Please continue to monitor for nausea and PRN medication usage. 6. Tachycardia: metoprolol tartrate 75 mg BID. Please continue to monitor heart rates (recent range = 98-107 beats/min), for fatigue, and blood pressures (recent range = 101-115/69-81 mmHg). 7. Fungal infection: fluconazole 200 mg GT daily. Please continue to monitor for resolution of fungal infection and renal function (serum creatinine = 0.35 mg/dL with creatinine clearance ~ 137 mL/min on 04/27/25). 8. Insomnia: melatonin 5 mg Po QHS PRN insomnia. The patient has used x1 dose of melatonin so far this admission. Please continue to monitor for insomnia, drowsiness, and PRN medication usage. 9. Dry eyes: artificial tears 1 drop in each eye every hour PRN dry eyes. The patient has not required any PRN doses of artificial tears so far this admission. Please continue to monitor for dry eyes and for PRN medication usage. 10. Skin irritation: bacitracin ointment 1 application topically BID. Please continue to monitor for skin irritation and skin integrity. 11. Leg cramps: vitamin B complex 1 capsule PO daily. Please continue to monitor for leg cramps. 12. Nutrition: Jevity 45 mL/hour. Please continue to monitor nutritional status. Assessment/Plan for indications treated with psychotropic medications: 1. Anxiety/restlessness: lorazepam 1 mg GT Q6H PRN anxiety/restlessness. Please see provider note regarding stable chronic long-term therapy GDR not recommended. Monitor prn usage and efficacy of prn doses including resident symptoms, behaviors and indications of distress. Monitor for anxiety and restlessness. Monitor for tolerability including mental status, cognition, excessive sleepiness, withdrawal or decreased participation in activities and decline in physical functioning. Maximize use of nonpharmacologic/behavior interventions to minimize use of prn medication. Prn psychotropic order must be renewed at 14 days per policy. Evaluate continued need for medication, effect of prn medication on resident?s symptoms/distress and tolerability to determine the appropriateness of order renewal. Monitor for sedation, mental status and cognition. Monitor for falls (risk factor for falls) and implement fall prevention strategies. Monitor for respiratory depression. RR range since admission = 16-18 breaths/min. Medical chart and medication regimen reviewed. The following medication irregularities or issues were identified: NA Date Date of Note: 04/27/25 Documented by User: Dr. Benjy Gonzalez MD 04/27/25 16:21 TCU RX Drug Regimen Review Provider Comments Provider responsibility Provider Comments to Recommendations by Pharmacy Agree
--- NOTE | 2025-04-27 16:25 | CHAPLAIN ---
Type of Pastoral Visit ___ Initial Visit _x__ Follow-up Visit ___ On-call Visit ___ General Patient Visit ___ Spiritual Assessment ___ Family Conference ___ Bereavement ___ Rapid Response ___ Code Blue ___ Other (describe below) Pastoral Care Referral From ___ Patient _x_ Family _x__ Nurse ___ Physician _x__ Electroformer ___ Kitchen Utility Associate ___ Other (describe below) Sacrament/Intervention _x__ Active listening ___ Anointing ___ Yazidi ___ Bereavement ___ Communion _x__ Rose exploration ___ ___ Life review _x__ Prayer ___ Reconciliation ___ Sacrament of Sick _x__ Supportive presence ___ Wedding ___ Other (describe below) Pastoral Comments entered room to follow up on this patient who has returned from a hospitalization in [place]; spouse and mother are in the room; spouse is attentive and massaging legs of patient who is non verbal and has involuntary movements; family express their rose and hope in God and how He/[place] have appeared to them; family members are asked about their needs and how they are getting rest and support; both acknowledge the question and affirm that they are doing fine for now and have had help themselves from family; family is open to visits and prayers any time
[2025-04-27] MEDS: Jevity 1.5 1,000 ML 45 ML GT (18:33)
[2025-04-27 21:26] VITALS: BP 109/79; PULSE 104
[2025-04-27 21:27] VITALS: PULSE 104
[2025-04-27] MEDS: MELATONIN 10 MG TABLET 5 MG PO (21:27)
[2025-04-27] MEDS: Senna/Docusate Sodium 1 Tablet 2 TABLET PO (21:32)
--- NOTE | 2025-04-27 23:09 | NURSING ---
During HS medication administration, no residual noted from PEG. PEG placement verified via air bolus. Pt tolerated well.
[2025-04-27] MEDS: Acetaminophen 650 MG/20 ML UDC GT (23:52)
--- NOTE | 2025-04-28 03:15 | NURSING ---
Written communication left for Dr. Gonzalez related to pt's requesting to increase PRN Melatonin dosage to 10 mg. states pt is not sleeping well at night.
[2025-04-28 10:09] VITALS: PULSE 116
[2025-04-28] MEDS: Vitamin B Comp W-C Capsule 1 CAP GT (10:09)
[2025-04-28] MEDS: Senna/Docusate Sodium 1 Tablet 2 TABLET PO ×2 (10:09→21:17)
[2025-04-28] MEDS: BACITRACIN 15 GM Tube 1 APPLIC TOPICAL ×2 (10:10→21:06)
[2025-04-28] MEDS: Fluconazole Suspension 40 MG/ML 35 ML Bottle 200 MG GT (10:10)
[2025-04-28 10:32] VITALS: BP 125/84; PULSE 116; RESP 16; TEMP 36.8; O2SAT 97
[2025-04-28] MEDS: NYSTATIN 500,000 UNIT/5 ML UDC 500000 UNIT PO ×3 (13:27→21:07)
[2025-04-28] MEDS: Jevity 1.5 1,000 ML 45 ML GT (18:08)
[2025-04-28] MEDS: Glycerin/Hypromellose/PEG400 15 ml Bottle 2 DRP EACH EYE (18:16)
[2025-04-28 21:04] VITALS: BP 112/88; PULSE 108
[2025-04-28 21:07] VITALS: PULSE 108
[2025-04-28] MEDS: MELATONIN 10 MG TABLET PO (21:17)
--- NOTE | 2025-04-28 22:59 | NURSING ---
During HS medication administration, no residual noted from PEG tube. PEG tube placement verified via air bolus. Tubing free of kinks. Pt tolerated well
[2025-04-29] MEDS: NYSTATIN 500,000 UNIT/5 ML UDC 500000 UNIT PO ×5 (06:26→21:32)
[2025-04-29 09:53] VITALS: BP 132/92; PULSE 114
[2025-04-29] MEDS: Lactobacillis Acidophilus 1 CAP GT ×2 (09:53→21:33)
[2025-04-29] MEDS: BACITRACIN 15 GM Tube 1 APPLIC TOPICAL ×2 (09:54→21:31)
[2025-04-29] MEDS: Vitamin B Comp W-C Capsule 1 CAP GT (09:54)
[2025-04-29] MEDS: Fluconazole Suspension 40 MG/ML 35 ML Bottle 200 MG GT (09:55)
[2025-04-29 10:00] VITALS: PULSE 114
[2025-04-29 15:50] VITALS: BP 132/92; PULSE 119; RESP 16; TEMP 36.6; O2SAT 98
[2025-04-29 16:00] VITALS: PULSE 100
[2025-04-29 21:31] VITALS: BP 105/70; PULSE 106
[2025-04-29] MEDS: MELATONIN 10 MG TABLET PO (21:38)
[2025-04-29 22:08] VITALS: BP 105/70; PULSE 106
[2025-04-29] MEDS: Jevity 1.5 1,000 ML 45 ML GT (22:46)
[2025-04-30] MEDS: NYSTATIN 500,000 UNIT/5 ML UDC 500000 UNIT PO ×4 (05:44→20:50)
[2025-04-30] MEDS: Senna/Docusate Sodium 1 Tablet 2 TABLET PO (05:44)
[2025-04-30] MEDS: Lactobacillis Acidophilus 1 CAP GT ×2 (09:23→20:51)
[2025-04-30] MEDS: Vitamin B Comp W-C Capsule 1 CAP GT (09:23)
[2025-04-30] MEDS: BACITRACIN 15 GM Tube 1 APPLIC TOPICAL ×2 (09:24→20:50)
[2025-04-30 09:25] VITALS: BP 110/78; PULSE 119
[2025-04-30] MEDS: Fluconazole Suspension 40 MG/ML 35 ML Bottle 200 MG GT (09:31)
--- NOTE | 2025-04-30 09:42 | NURSING ---
Trading Analyst Note; Activity Asset: Em Lantigua has returned to TCU. She is still unable to communicate her wishes however her family remains here daily to assist in her care and her needs. Her family has music on for her, do small massages and are talking with her through out the day when she is not resting. Staff respects their right to be w/her and offer as much help as they need.
--- NOTE | 2025-04-30 12:15 | NURSING ---
Called [employer] to discuss tube feeding being turned off for therapy session. She will adjust rate and times to have it run for 22hrs a day so it can be off for a couple hours with no calorie loss to allow for therapy and other care.
[2025-04-30] MEDS: Glycerin/Hypromellose/PEG400 15 ml Bottle 2 DRP EACH EYE (12:21)
--- NOTE | 2025-04-30 13:14 | NURSING ---
Call from Mick Tang NP from neurosurgery team. She requested CT to be done next week. Let her know planning to complete CT on Saturday05/03/25. Will fax them report.
[2025-04-30 16:00] VITALS: BP 109/77; PULSE 104; RESP 18; TEMP 36.4; O2SAT 99
[2025-04-30] MEDS: Jevity 1.5 1,000 ML 50 ML GT (20:42)
[2025-04-30] MEDS: MELATONIN 10 MG TABLET PO (20:46)
[2025-04-30 20:50] VITALS: BP 108/72; PULSE 104
[2025-04-30 21:16] VITALS: BP 108/72; PULSE 104
[2025-05-01] MEDS: NYSTATIN 500,000 UNIT/5 ML UDC 500000 UNIT PO ×4 (05:43→21:20)
[2025-05-01 09:40] VITALS: PULSE 121
[2025-05-01] MEDS: Fluconazole Suspension 40 MG/ML 35 ML Bottle 200 MG GT (09:40)
[2025-05-01] MEDS: BACITRACIN 15 GM Tube 1 APPLIC TOPICAL ×2 (09:41→21:20)
[2025-05-01] MEDS: Vitamin B Comp W-C Capsule 1 CAP GT (09:41)
[2025-05-01] MEDS: Lactobacillis Acidophilus 1 CAP GT ×2 (09:41→21:20)
[2025-05-01] MEDS: Glycerin/Hypromellose/PEG400 15 ml Bottle 2 DRP EACH EYE ×2 (10:03→21:26)
[2025-05-01 10:51] VITALS: BP 114/83; PULSE 121; RESP 16; TEMP 36.1; O2SAT 99
[2025-05-01] MEDS: Jevity 1.5 1,000 ML 50 ML GT (21:21)
[2025-05-01 21:24] VITALS: BP 113/75; PULSE 88
[2025-05-02] MEDS: NYSTATIN 500,000 UNIT/5 ML UDC 500000 UNIT PO ×4 (05:54→20:42)
[2025-05-02 09:13] VITALS: PULSE 112
[2025-05-02] MEDS: Vitamin B Comp W-C Capsule 1 CAP GT (09:14)
[2025-05-02] MEDS: Lactobacillis Acidophilus 1 CAP GT ×2 (09:14→20:38)
[2025-05-02] MEDS: Fluconazole Suspension 40 MG/ML 35 ML Bottle 200 MG GT (09:14)
[2025-05-02] MEDS: BACITRACIN 15 GM Tube 1 APPLIC TOPICAL ×2 (09:14→20:41)
[2025-05-02 09:49] VITALS: BP 108/76; PULSE 112; RESP 15; TEMP 36.8; O2SAT 99
[2025-05-02] MEDS: MELATONIN 10 MG TABLET PO (20:35)
[2025-05-02] MEDS: Senna/Docusate Sodium 1 Tablet 2 TABLET PO (20:35)
[2025-05-02] MEDS: Jevity 1.5 1,000 ML 50 ML GT (20:37)
[2025-05-02 20:38] VITALS: PULSE 88
[2025-05-03] MEDS: NYSTATIN 500,000 UNIT/5 ML UDC 500000 UNIT PO ×4 (05:57→21:02)
--- NOTE | 2025-05-03 08:50 | NURSING ---
Offset Printer Note; MDS for 05/03/2025 Complete
[2025-05-03 10:42] VITALS: BP 115/81; PULSE 116; RESP 18; TEMP 36.3; O2SAT 96
[2025-05-03 10:45] VITALS: PULSE 116
[2025-05-03] MEDS: Vitamin B Comp W-C Capsule 1 CAP GT (10:46)
[2025-05-03] MEDS: BACITRACIN 15 GM Tube 1 APPLIC TOPICAL ×2 (10:46→21:03)
[2025-05-03] MEDS: Fluconazole Suspension 40 MG/ML 35 ML Bottle 200 MG GT (10:47)
[2025-05-03] MEDS: Lactobacillis Acidophilus 1 CAP GT ×2 (11:23→21:04)
[2025-05-03] MEDS: Senna/Docusate Sodium 1 Tablet 2 TABLET PO ×2 (11:23→21:04)
--- NOTE | 2025-05-03 14:27 | NURSING ---
Called and spoke with Linda at neurology office, let her know images were sent to system and report was faxed to office.
[2025-05-03] MEDS: MELATONIN 10 MG TABLET PO (21:04)
[2025-05-03 21:05] VITALS: PULSE 106
[2025-05-03] MEDS: Jevity 1.5 1,000 ML 50 ML GT (21:09)
[2025-05-04 05:53] LABS: Hematocrit 37.7 % (37-47); Hemoglobin 12.7 g/dL (12.0-15.0); Immature Granulocytes Count 0.080 X10^3/uL (0.0-0.0); Mean Corp Hgb Conc 33.7 g/dL (32-36); Mean Corpuscular Volume 85.3 fL (81-99); Mean Platelet Vol. 11.1 fl (6.2-12.0); NRBC Flagged by Analyzer 0 % (0-5); Platelet Count 231 K/mm3 (150-450); RBC Distribution Width CV 12.9 % (11.6-14.6); RBC Distribution Width SD 39.6 fl (35.1-43.9); Red Blood Count 4.42 M/mm3 (4.2-5.4); White Blood Count 6.5 K/mm3 (4.4-11.0)
[2025-05-04 06:18] LABS: Anion Gap 17 (5-15); BUN 8 mg/dL (4-19); BUN/Creat Ratio 23.3 RATIO (10-20); Calcium,Total 9.3 mg/dL (7.6-11.0); Carbon Dioxide 23.2 mmol/L (21.0-32.0); Chloride 97 mmol/L (98-108); Estimated Creatinine Clearance 155.26 ml/min (50-250); Glucose 139 mg/dL (70-99); Potassium 3.7 mmol/L (3.3-5.1)
[2025-05-04] MEDS: NYSTATIN 500,000 UNIT/5 ML UDC 500000 UNIT PO ×3 (06:33→18:02)
[2025-05-04 10:00] VITALS: PULSE 96; RESP 18; O2SAT 98
[2025-05-04] MEDS: Vitamin B Comp W-C Capsule 1 CAP GT (10:48)
[2025-05-04] MEDS: Lactobacillis Acidophilus 1 CAP GT (10:48)
[2025-05-04] MEDS: BACITRACIN 15 GM Tube 1 APPLIC TOPICAL (10:48)
[2025-05-04 10:49] VITALS: BP 100/69; PULSE 96
[2025-05-04] MEDS: Glycerin/Hypromellose/PEG400 15 ml Bottle 2 DRP EACH EYE (10:53)
[2025-05-04] MEDS: Fluconazole Suspension 40 MG/ML 35 ML Bottle 200 MG GT (10:56)
[2025-05-04 11:00] VITALS: BP 100/69; PULSE 96; RESP 16; TEMP 36.4; O2SAT 98
[2025-05-04] MEDS: Senna/Docusate Sodium 1 Tablet 2 TABLET PO (11:16)
--- NOTE | 2025-05-04 18:36 | NURSING ---
[facility] CALLED AND WANTED THE PT SHIPPED OUT TONIGHT TO THERE ER DUE TO RESULTS OF CT OF THE HEAD. [facility] WILL PICK PT UP AT [id number] BY COT. , AYUSH, SHANICE, AND TRE NOTIFIED. FAMILY IS AWARE. RN AND DUPLICATE MAKER AWARE.
--- NOTE | 2025-05-04 22:45 | NURSING ---
pt left via transport to [facility] ED.
[2025-05-04 23:09] VITALS: BP 111/86; PULSE 113; RESP 16; TEMP 36.6; O2SAT 96
--- NOTE | 2025-05-05 07:44 | PCM.DC.SUM ---
Providers Date of Admission: 04/26/25 Primary Care Physician: Dr. Yessenia Murphy MD Reason For Visit: BURST AVM Diagnosis Discharge Diagnosis (1) Debility: Status: Acute Code(s): R53.81 - Other malaise (2) Bleeding in brain due to brain aneurysm: Status: Resolved Code(s): I60.9 - Nontraumatic subarachnoid hemorrhage, unspecified (3) Brain aneurysm: Status: Acute Code(s): I67.1 - Cerebral aneurysm, nonruptured (4) Hemorrhagic stroke: Status: Acute Code(s): I61.9 - Nontraumatic intracerebral hemorrhage, unspecified (5) Status post insertion of percutaneous endoscopic gastrostomy (PEG) tube: Status: Acute Code(s): Z93.1 - Gastrostomy status (6) Slit ventricle syndrome: Status: Acute Code(s): T85.890A - Other specified complication of nervous system prosthetic devices, implants and grafts, initial encounter Plan 24 year old female with below past medical history significant for 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 Debility - PT/OT. Dysphagia/PEG - ST. Pain - Tylenol 650mg q6h prn. Bowel - Miralax 17gm bid, senna/colace 2 tablets bid, Dulcolax 10mg pr daily prn. Adult immunization - Administer pneumonia vaccine, covid vaccine, flu vaccine as appropriate. DVT prophylaxis - Lovenox 40mg sc daily. Brain injury - Amantadine 100mg bid. Skin irritation - Bacitracin ointment topical bid. GERD - Famotidine 20mg bid. Nutrition - Jevity 1.5 45mL/hour. Insomnia - Melatonin 5mg qhs prn. Nausea - Reglan 5mg q8 thru 04/29/2025, Zofran 4mg q6 prn. Tachycardia - Metoprolol 75mg q12. Dry Eyes - Artificial tears 1gtt ou q1h prn. Leg cramps - Vitamin B complex 1 capsule daily. The following psychotropic medication was present on admission: Lorazepam 1mg q6 prn. Psychotropic medication therapy is indicated for a diagnosis of: Anxiety/restlessness. Based on my clinical evaluation, continuation of the medication is necessary at this time. Gradual dose reduction plan (select one): ____ GDR will be attempted. Will monitor patient symptoms and behaviors in response to GDR. __x__ GRD contraindicated. Reason contraindicated: stable chronic nursing home use. Medications at Discharge Home Medications B complex-vitamin C-folic acid ER 400 mcg tablet,extended release 1 tab PO DAILY supplement 04/07/25 acetaminophen 325 mg/10.15 mL oral solution 650 mg feeding tube Q6H PRN pain (scale score 1-10) 04/07/25 amantadine HCl 50 mg/5 mL oral solution 100 mg feeding tube BID involuntary movement 04/07/25 bisacodyl 10 mg rectal suppository 10 mg LA DAILY PRN constipation 04/07/25 carboxymethylcellulose sodium 1 % eye drops (Artificial Tears (carboxymethylcellulose)) 1 drp EACH EYE DAILY PRN dry eyes 04/07/25 esomeprazole magnesium 40 mg capsule,delayed release (Nexium) 40 mg feeding tube BID reflux 04/07/25 heparin (porcine) 5,000 unit/mL (1 mL) injection cartridge 5,000 unit subcut Q8H prophylaxis 04/07/25 levetiracetam 500 mg/5 mL (5 mL) oral solution 500 mg feeding tube BID seizures 04/07/25 lorazepam 0.5 mg tablet (Ativan) 0.5 mg feeding tube Q6H PRN mild restlessness/agitation 04/07/25 lorazepam 1 mg tablet (Ativan) 1 mg feeding tube Q6H PRN severe restlessness/agitation 04/07/25 metoclopramide HCl 5 mg/5 mL oral solution 5 mg feeding tube Q8H digestion/nausea 04/07/25 metoprolol tartrate 25 mg tablet 75 mg feeding tube Q12H BP/pulse 04/07/25 nystatin 100,000 unit/mL oral suspension 500,000 unit PO Q6H thrush 04/07/25 ondansetron 4 mg disintegrating tablet 4 mg feeding tube Q6H PRN nausea 04/07/25 polyethylene glycol 3350 17 gram/dose oral powder 17 g feeding tube BID constipation 04/07/25 sennosides 8.6 mg-docusate sodium 50 mg capsule (Senna Plus) 2 tab-cap PO BID bowels 04/07/25 thiamine HCl (vitamin B1) 100 mg tablet 100 mg feeding tube DAILY supplement 04/07/25 zinc sulfate 50 mg zinc (220 mg) capsule (Orazinc) 50 mg PO DAILY supplement 04/07/25 bacitracin 500 unit/gram topical ointment 1 applic topical BID surgical incision 04/26/25 insulin lispro 100 unit/mL subcutaneous pen (Humalog KwikPen (U-100) Insulin) 5 unit subcut Q6H Tube feed 04/26/25 melatonin 5 mg capsule mg feeding tube QHS PRN sleep 04/26/25 Hospital Course Operations None Procedures None Summary of Care Provided Minutes Spent on Discharge: 15 Hospital Course: 24 year old female with below past medical history significant for 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 05/03/2025 CT head: IMPRESSION: There is craniotomy change in the occipital region with vascular clips and trace amount of air at the surgical site and posterior fossa. Clinical correlation is recommended. There is a shunt in the right with its tip centrally located. There is low-density throughout the midbrain and irene and in the right and left cerebellar hemispheres consistent with diffuse edema, similar to the prior. There is effacement of the basal cisterns. After neurosurgery review. Discharge 05/04/2025 to [facility] [address] for admission to hospital. Weight / BMI Weight Weight: 39.009 kg Body Mass Index (BMI) 15.7 ABG / Lab / Microbiology Data 05/04/25 05:13 05/04/25 05:13 D/C Instructions Discharge Activity: Return to Normal Activity and Use Walker Weight Bearing Status: Weight bearing as tolerated Call your doctor if you observe: Fever of 101 or Higher, Inability to urinate, Inability to have a bowel movement, Shortness of breath, Dizziness, Fainting spells, Swelling in the ankles, Chest pain and Uncontrolled pain DC O2, CPAP, BIPAP Needs Home O2 Discharge instructions: No Additional Instructions: Discharge 05/04/2025 to [facility] for admission to hospital. Please Follow Up With: Dr. Mitchell Meaningful Use Info Meaningful Use Meaningful Use Diagnoses (Choose all that apply): None applicable Discharge Plan Admission Admit Date/Time: 04/26/25 17:37 Primary Reason for Your Visit: CASI ELIAS Attending Provider: Benjy Gonzalez Chi Primary Care Provider: Yessenia Murphy Instructions Additional Instructions / Restrictions: Discharge 05/04/2025 to [facility] for admission to hospital. Discharge Orders/Prescriptions Prescriptions: No Action melatonin 5 mg capsule feeding tube QHS PRN (Reason: sleep) bacitracin 500 unit/gram ointment 1 applic topical BID insulin lispro [Humalog KwikPen Insulin] 100 unit/mL insulin pen 5 unit subcut Q6H Rx Instructions: 0-5 units. Take as directed per insulin instructions acetaminophen 325 mg/10.15 mL solution 650 mg feeding tube Q6H PRN (Reason: pain (scale score 1-10)) amantadine HCl 50 mg/5 mL solution 100 mg feeding tube BID Artificial Tears (cmc) 1 % drops 1 drp EACH EYE DAILY PRN (Reason: dry eyes) lorazepam [Ativan] 0.5 mg tablet 0.5 mg feeding tube Q6H PRN (Reason: mild restlessness/agitation) lorazepam [Ativan] 1 mg tablet 1 mg feeding tube Q6H PRN (Reason: severe restlessness/agitation) B complex-vitamin C-folic acid 400 mcg tablet extended release 1 tab PO DAILY Patient Comments: Please change to g-tube bisacodyl 10 mg suppository 10 mg LA DAILY PRN (Reason: constipation) heparin (porcine) 5,000 unit/mL (1 mL) cartridge 5,000 unit subcut Q8H levetiracetam 500 mg/5 mL (5 mL) solution 500 mg feeding tube BID metoclopramide HCl 5 mg/5 mL solution 5 mg feeding tube Q8H metoprolol tartrate 25 mg tablet 75 mg feeding tube Q12H esomeprazole magnesium [Nexium] 40 mg capsule,delayed release(DR/EC) 40 mg feeding tube BID nystatin 100,000 unit/mL suspension 500,000 unit PO Q6H Rx Instructions: administer 1/2 of dose in each side of the mouth ondansetron 4 mg tablet,disintegrating 4 mg feeding tube Q6H PRN (Reason: nausea) polyethylene glycol 3350 17 gram/dose powder 17 g feeding tube BID Senna Plus 8.6-50 mg capsule 2 tab-cap PO BID thiamine HCl (vitamin B1) 100 mg tablet 100 mg feeding tube DAILY zinc sulfate [Orazinc] 50 mg zinc (220 mg) capsule 50 mg PO DAILY Referrals / Follow Up: Yessenia Murphy MD [Primary Care Provider, Internal Medicine] Disposition Disposition (needs filled in before D/C Order can be placed): [facility]
== END 2025-05-04 23:09 | disposition short-term general hospital (02) | DRG 949 ==
PROVIDERS: Admitting Provider Family Medicine Geriatric Medicine; PCP Student in an Organized Health Care Education/Training Program; Referring Provider Family Medicine Geriatric Medicine; Visit Provider Family Medicine Geriatric Medicine
DX: T85.8 Other specified complications of internal prosthetic devices, implants and grafts, not elsewhere classified (principal); I60.9 Nontraumatic subarachnoid hemorrhage, unspecified; B37.0 Candidal stomatitis; Z79.4 Long term (current) use of insulin; Z93.1 Gastrostomy status; K21.9 Gastro-esophageal reflux disease without esophagitis; F41.9 Anxiety disorder, unspecified; Z79.01 Long term (current) use of anticoagulants; G47.00 Insomnia, unspecified; Z98.2 Presence of cerebrospinal fluid drainage device; Z79.899 Other long term (current) drug therapy; Y71.2 Prosthetic and other implants, materials and accessory cardiovascular devices associated with adverse incidents; R00.0 Tachycardia, unspecified; R13.10 Dysphagia, unspecified
CPT/HCPCS: 36415; 80048; 82962; 85025; 92507; 92523; 92526; 92610; 97110; 97116; 97162; 97166; 97530; 97535; 97802; 97803; A4216

== ENCOUNTER → 2025-05-03 | Outpatient (CLI) | payer SELFPAY, OTHER ==
--- NOTE | 2025-05-03 12:02 | CT_ITS ---
PROCEDURE: CT/Brain/Head without Contrast
== END | disposition home or self-care (01) ==
PROVIDERS: PCP Student in an Organized Health Care Education/Training Program; Referring Provider Family Medicine Geriatric Medicine; Visit Provider Family Medicine Geriatric Medicine
DX: I67.1 Cerebral aneurysm, nonruptured (principal); I61.9 Nontraumatic intracerebral hemorrhage, unspecified
CPT/HCPCS: 70450

== ENCOUNTER 2025-05-24 15:30 | Inpatient (IN) | payer SELFPAY ==
[2025-05-24 17:00] VITALS: BP 124/88; PULSE 113; TEMP 36.6; O2SAT 98
[2025-05-24] MEDS: Vital AF 1.2 Cal Liquid 1,000 ML 45 ML GT (18:14)
[2025-05-24] MEDS: NYSTATIN 500,000 UNIT/5 ML UDC 500000 UNIT PO (19:45)
--- OUTSIDE RECORDS SUMMARY | 2025-05-24 19:56 | XMS RPT_ITS | CCD ---
Author Organization [facility] Care Team Providers Care [employer]ation And [employer] Supervisor Name Role Phone Generic Provider MD, No Assigned Pcp Primary Car e Provider Unavailable COVERDALEJAMES MD Admitting Unavailable COVERDALE, JAMES LOU Attending Unavailable COVERDAJAMES MATIAS MD Primary Care Unavailable YESSENIA DIXON MD Attending Unavailable YESSENIA DIXON MD Primary Care Unavailable YESSENIA DIXON MD Admitting Unavailable NAVDEEP PALENCIA Referring Unavailable TEVIN-RAJANI MEJIA Admitting Unavailabl e RAJANI LORD Attending Unavailabl e GENERIC PROVIDER, NO ASSIGNED PCP Primary Care Unavailable ABARCA-HANMATEOI, RAJANI Referring Unavailabl e GENERIC PROVIDER, NO ASSIGNED PCP Primary Care Unavailable KERA HARLEY Referring Unavailable TEVIN-JACKIE RAJANI Referring Unavailabl ALFRED Paredes Admitting Unavailab ALFRED Mazariegos Attending Unavailab le RAJANI LORD Consulting Unavailabl e TEVIN-JACKIE RAJANI Admitting Unavailabl e RAJANI LORD Attending Unavailabl ENZO Bach Referring Unavailable Carlos, Benjy Chi Attending Unavailable Yessenia Dixon Primary Care Unavailable Carlos, Benjy Chi Referring Unavailable Yessenia Dixon Primary Care Unavailable Carlos, Benjy Chi Attending Unavailable Carlos, Benjy Chi Referring Unavailable Carlos, Benjy Chi Attending Unavailable Yessenia Dixon Primary Care Unavailable Carlos, Benjy Chi Referring Unavailable Carlos, Benjy Chi Admitting Unavailable Yessenia Dixon Primary Care Unavailable Carlos, Benjy Chi Attending Unavailable Carlos, Benjy Chi Referring Unavailable Carlos, Benjy Chi Attending Unavailable Yessenia Dixon Primary Care Unavailable Carlos, Benjy Chi Referring Unavailable Carlos, Benjy Chi Admitting Unavailable Medications Current Medications Medication Drug Class(es) Dates Sig (Normalized) Sig (Original) acetaminophen 325 mg oral tablet (5 sources) Start: 04-22-2025 End: 04-24-2025 take 1 tablet enteral route every six hours as needed 650 mg, g-tube, Every 6 hours PRN, pain mild (1-3), first line, Starting on 04/24/25 at 2315, If ordered PRN for pain, nurse is permitted to administer this medication for higher pain scores based on patient preference? Yes Start: 04-21-2025 End: 04-22-2025 take 650 mg by mouth every six hours as needed for pain 650 mg, oral, Every 6 hours scheduled, First dose on Sat04/21/25 at 1825, If ordered PRN for pain, nurse is permitted to administer this medication for higher pain scores based on patient preference? Yes Start: 03-31-2025 take 20.3 mL by mout h every six hours for pain acetaminophen (Tylenol) 650 mg/20.3 mL solution oral liquid Indications: AVM (arteriovenous malformation) ([facility]) Take 20.3 mL (650 mg) by g-tube every 6 hours if needed for pain. 03/31/2025 Active amantadine hydrochloride 10 mg/ml oral solution (2 sources) Influenza A M2 Protein Inhibitor Start: 03-31-2025 amantadine (Symmetrel) 50 mg/5 mL solution Indications: AVM (arteriovenous malformation) ([facility]) Take 10 mL (100 mg) by g-tube every 12 hours. Assess need for medication often while assessing patient's alert and responsiveness. 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 Apply a small amount to surgical incision (cranial) 04/26/2025 Active bisacodyl 10 mg rectal suppository (2 sources) Stimulant Laxative Start: 03-31-2025 bisacodyl (Dulcolax) 10 mg suppository Indications: AVM (arteriovenous malformation) ([facility]) Insert 1 suppository (10 mg) into the rectum once daily as needed for constipation. 03/31/2025 Active carboxymethylcellulose sodium 10 mg/ml ophthalmic solution (2 sources) take 1 drop(s) into the eye(s) every twenty-fo ur hours as needed carboxymethylcellulose PF 1 % ophthalmic solution Administer 1 drop into both eyes once daily as needed for dry eyes. Active carboxymethylcel lulose (Refresh Plus) 0.5 % ophthalmic solution 1 drop if needed for dry eyes. Active famotidine 20 mg oral tablet (2 sources) Histamine-2 Receptor Antagonist Start: 04-22-2025 40 mg, g-tube, 2 times daily, First dose on Sat04/22/25 at 1030 Start: 04-21-2025 End: 04-22-2025 20 mg, intravenous, Administ er over 2 Minutes, Every 12 hours scheduled, First dose on Sat04/21/25 at 2345 fluconazole 200 mg oral tablet (1 source) Azole Antifungal Start: 04-22-2025 take 200 mg by mouth once daily 200 mg, g-tube, Daily, First dose on Sat04/22/25 at 1030, Coverage: Michelle, Non-albicans, Infection Site: Other, Specify: oral candidis glucagon (rdna) 1 mg injection (2 sources) Antihypoglycemic Agent Start: 04-22-2025 1 mg, intramuscular, Every 15 min PRN, low blood sugar - see comments, For blood glucose less than or equal to 70 mg/dL and no IV access, Starting on Anna 04/22/25 at 0040, Give until blood glucose is 100 mg/dL or greater. If patient DOES NOT HAVE secure IV access & patient is unconscious, NPO or is unable to eat or drink. 50 ml glucose 500 mg/ml prefilled syringe (2 sources) Start: 04-22-2025 12.5 g, intravenous, Every 15 min PRN, For blood glucose 41 to 70 mg/dL, Starting on Anna 04/22/25 at 0040, May repeat until blood glucose level reaches 100 mg/dL or greater. Push 2 - 3 mL/minute if patient has secure IV access. 1 ml heparin sodium, porcine 5000 unt/ml injection (3 sources) Unfractionated Heparin, Anti-coagulant Start: 03-31-2025 inject 5000 [IU] by subcutaneous injection every eight hours 5,000 Units, subcutaneous, Every 8 hours, First dose on 04/21/25 at 1830 insulin lispro 100 unt/ml injectable solution (3 sources) Insulin Analog Start: 03-31-2025 0-5 Units, subcutaneous, Every 6 hours, First dose (after last modification) on Anna 04/22/25 at 0200, Do not hold when patient is not eating, continue order as scheduled for hyperglycemia management. Insulin Lispro Corrective Scale #1 Hypoglycemia protocol Call LIP unit(s) if Blood Glucose is between 0 - 70 mg/dL 0 unit(s) if Blood glucose is between 71-150 1 unit(s) if Blood glucose is between 151-200 2 unit(s) if Blood glucose is between 201-250 3 unit(s) if Bloodglucose is between 251-300 4 unit(s) if Blood glucose is between 301-350 5 unit(s) if Blood glucose is between 351-400 If blood glucose is greater than 400 mg/dL, give max insulin per sliding scale AND then contact provider. LORazepam 0.5 mg oral tablet (3 sources) Benzodiazepine Start: 04-25-2025 take 0.5 mg by mouth once 0.5 mg, oral, Once, On 04/25/25 at 1045, For 1 dose, Prior to MRI Start: 03-31-2025 LORazepam (Ati van) 1 mg tablet Indications: AVM (arteriovenous malformation) ([facility]) Take 1 tablet (1 mg) by g-tube every 6 hours if needed (nausea/vomiting and tachycardia) for up to 14 days. 30 tablet 03/31/2025 Active melatonin 5 mg oral tablet (2 sources) Start: 04-22-2025 melatonin 5 mg tablet Indications: Altered mental status, unspecified altered mental status type Take 1 tablet (5 mg) by mouth as needed at bedtime for sleep. 04/26/2025 Active metoclopramide 5 mg oral tablet (2 sources) Dopamine-2 Receptor Antagonist Start: 03-31-2025 End: 04-29-2025 metoclopramide (Reglan) 5 mg tablet Indications: AVM (arteriovenous malformation) ([facility]) Take 1 tablet (5 mg) by g-tube 3 times a day. Stop medication on 04/29/2025. 03/31/2025 04/29/2025 Active metoprolol tartrate 75 mg oral tablet (2 sources) beta-Adrenergic Harinder Start: 04-26-2025 metoprolol tartrate (Lopressor) 75 mg tablet Indications: Altered mental status, unspecified altered mental status type Take 1 tablet (75 mg) by g-tube 2 times a day. 04/26/2025 Active Start: 04-22-2025 75 mg, g-tube, 2 times daily, First dose on Anna 04/22/25 at 1030 Naloxone (1 source) Opioid Antagonist Start: 04-21-2025 0.2 mg, intravenous, Every 5 min PRN, respiratory depression, Starting on Sat04/21/25 at 1822, If respiratory rate is less than 8 breaths/minute or patient is difficult to arouse stop any narcotics and contact physician. Administer slow IV push. Repeat as ordered until patient's respiratory rate is greater than 12 breaths/minute. 2 ml ondansetron 2 mg/ml injection (3 sources) Serotonin-3 Receptor Antagonist Start: 04-22-2025 take 4 mg intravenously every six hours as needed 4 mg, intravenous, Every 6 hours PRN, nausea/vomiting, first line, Starting on Anna 04/22/25 at 1433, When administering via IV Push, administer over 3-5 minutes. Start: 03-31-2025 ondansetron (Z ofran) 4 mg tablet Indications: AVM (arteriovenous malformation) ([facility]) Take 1 tablet (4 mg) by g-tube every 6 hours if needed for nausea or vomiting. 03/31/2025 Active vitamin B complex-vitamin C-folic acid (Nephrocaps) 1 mg capsule (2 sources) Start: 03-31-2025 vitamin B comp lópez-vitamin C-folic acid (Nephrocaps) 1 mg capsule Indications: AVM (arteriovenous malformation) ([facility]) Take 1 capsule by g-tube once daily in the morning. Take before meals. 03/31/2025 Active vitamin B complex-vitamin C-folic acid (Nephrocaps) capsule 1 capsule (1 source) Start: 04-22-2025 1 capsule, g-t ube, Daily before breakfast, First dose on Anna 04/22/25 at 0700 Completed/Discontinued Medications Medication Drug Class(es) Dates Sig (Normalized) Sig (Original) diazePAM 5 mg/ml injectable solution (1 source) Benzodiazepine Start: 04-23-2025 End: 04-24-2025 take 5 mg intravenously every eight hours as needed 5 mg, intravenous, Administer over 3 Minutes, Every 8 hours PRN, MRI, Starting on Sat04/23/25 at 0955, For 1 day, Administer over 1-3 minutes, maximum rate is 5 mg per minute. docusate sodium 50 mg / sennosides, halfway 8.6 mg oral tablet (5 sources) Start: 04-21-2025 End: 04-22-2025 take 2 tablets by mouth twice daily for constipation 2 tablet, oral, 2 times daily, First dose on Sat04/21/25 at 2100, Bowel Regimen - for prevention of constipation Hold for loose stools Start: 03-31-2025 End: 04-25-2025 2 tablet, g-tube, 2 times da frank, First dose (after last modification) on Sat04/22/25 at 2100, Bowel Regimen - for prevention of constipation Hold for loose stools esomeprazole 40 mg granules for oral suspension (3 sources) Proton Pump Inhibitor Start: 03-31-2025 End: 04-22-2025 take 40 mg by mouth twice daily 40 mg, oral, 2 times daily, First dose on Sat04/21/25 at 2100 levETIRAcetam 500 mg oral tablet (2 sources) Start: 03-31-2025 End: 04-26-2025 levETIRAcetam (Keppra) 500 mg tablet Indications: AVM (arteriovenous malformation) ([facility]) Take 1 tablet (500 mg) by g-tube 2 times a day. CONTINUE UNTIL INSTRUCTED TO STOP BY NEUROSURGERY OR NEUROLOGY. PLEASE DISCHARGE WITH SCRIPT WITH 6 REFILLS 03/31/2025 04/26/2025 Discontinued (Stop Taking at Discharge) polyethylene glycol 3350 25368 mg powder for oral solution (4 sources) Osmotic Laxative Start: 04-23-2025 End: 04-25-2025 17 g, g-tube, Daily, First dose (after last modification) on Sat04/23/25 at 0900, Bowel Regimen - for prevention of constipation. Start: 03-31-2025 17 g, g-tube, 2 times daily, First dose (after last modification) on Sat04/25/25 at 0900, Bowel Regimen - for prevention of constipation. Problems Problem Classification Problem Date Documented Date Episodic/Chronic Acute cerebrovascular disease (6 sources) Nontraumatic subarachnoid hemorrhage, unspecified; Translations: [Nontraumatic subarachnoid hemorrhage from other intracranial arteries] Onset: 5 Chronic Cardiac and circulatory congenital anomalies (8 sources) Vascular disorder; Translations: [Arteriovenous malformation, site unspecified] Onset: 5 03-03-2025 Chronic Complication of device; implant or graft (1 source) Other specified complication of nervous system prosthetic devices, implants and grafts, subsequent encounter; Translations: [Other specified complication of nervous system prosthetic devices, implants and grafts, subsequent encounter] Onset: 5 Episodic Other and ill-defined cerebrovascular disease (1 source) Cerebral aneurysm, nonruptured; Translations: [Cerebral aneurysm, nonruptured] Onset: 5 Chronic Other circulatory disease (2 sources) Arteriovenous fistula, acquired; Translations: [Arteriovenous fistula, acquired] Onset: Chronic Other connective tissue disease (1 source) Muscle weakness (generalized); Translations: [Muscle weakness (generalized)] Onset: 5 Episodic Other connective tissue disease (2 sources) Other specified soft tissue disorders; Translations: [Other specified soft tissue disorders] Onset: Episodic Other nervous system disorders (2 sources) Hydrocephalus; Translations: [Hydrocephalus, unspecified] Onset: 5 03-19-2025 Chronic Other nervous system disorders (1 source) Ventriculoperitoneal shunt in situ; Translations: [Presence of cerebrospinal fluid drainage device] 04-21-2025 Chronic Other nervous system disorders (2 sources) Presence of cerebrospinal fluid drainage device; Translations: [Presence of cerebrospinal fluid drainage device] Onset: 5 Chronic Other nervous system disorders (2 sources) Hydrocephalus, unspecified; Translations: [Hydrocephalus, unspecified (Multi)] Onset: Chronic Residual codes; unclassified (1 source) Ventriculoperitoneal shunt in situ 04-26-2025 Episodic Residual codes; unclassified (3 sources) Altered mental status; Translations: [Altered mental status, unspecified] Onset: 5 04-21-2025 Episodic Residual codes; unclassified (3 sources) Altered mental status, unspecified; Translations: [Altered mental status, unspecified] Onset: 5 Episodic Residual codes; unclassified (2 sources) Localized edema; Translations: [Localized edema] Onset: 5 Episodic Skin and subcutaneous tissue infections (2 sources) Cutaneous abscess, unspecified; Translations: [Cutaneous abscess, unspecified] Onset: 5 Episodic Unclassified (2 sources) Autogenerated Problem Onset: 5 03-04-2025 Results Test Name Value Interpretation Reference Range Facility Basic Metabolic Profile (BMP )on 05-25-2025 BUN Normal 4-19 [facility] Comment on above: Result Comment: Canc elled via OM: Order cancelled - Patient discharged Performed By: #### L 501.080 #### [facility] [address] [place], [address] BUN/CRE Normal 10- [facility] Comment on above: Result Comment: Canc elled via OM: Order cancelled - Patient discharged Performed By: #### L 501.080 #### [facility] [address] [place], [address] Calcium Normal 7.6-11.0 [facility] Comment on above: Result Comment: Canc elled via OM: Order cancelled - Patient discharged Performed By: #### L 501.080 #### [facility] [address] [place], [address] CL Normal 98-108 [facility] Comment on above: Result Comment: Canc elled via OM: Order cancelled - Patient discharged Performed By: #### L 501.080 #### [facility] [address] [place], [address] CO2 Normal 21.0-32.0 [facility] Comment on above: Result Comment: Canc elled via OM: Order cancelled - Patient discharged Performed By: #### L 501.080 #### [facility] [address] [place], [address] CREAT,SERUM Normal 0.70-1.20 [facility] Comment on above: Result Comment: Canc elled via OM: Order cancelled - Patient discharged Performed By: #### L 501.080 #### [facility] [address] [place], [address] eGFR Normal >60 [facility] Comment on above: Result Comment: Canc elled via OM: Order cancelled - Patient discharged Performed By: #### L 501.080 #### [facility] [address] [place], [address] GAP Normal 5-15 [facility] Comment on above: Result Comment: Canc elled via OM: Order cancelled - Patient discharged Performed By: #### L 501.080 #### [facility] [address] [place], [address] GLU Normal 70-99 [facility] Comment on above: Result Comment: Canc elled via OM: Order cancelled - Patient discharged Performed By: #### L 501.080 #### [facility] [address] [place], [address] Potassium Normal 3.3-5.1 [facility] Comment on above: Result Comment: Canc elled via OM: Order cancelled - Patient discharged Performed By: #### L 501.080 #### [facility] [address] [place], [address] Basic Metabolic Profile (BMP) Normal 133-145 [facility] Comment on above: Result Comment: Canc elled via OM: Order cancelled - Patient discharged Performed By: #### L 501.080 #### [facility] [address] [place], [address] CBC W/Diff, Automatedon 12-0 Absolute Neut Normal 2.0-7.7 [facility] Comment on above: Result Comment: Canc elled via OM: Order cancelled - Patient discharged Performed By: #### L 501.080 #### [facility] [address] [place], [address] HCT Normal 37-47 [facility] Comment on above: Result Comment: Canc elled via OM: Order cancelled - Patient discharged Performed By: #### L 501.080 #### [facility] [address] [place], [address] HGB Normal 12.0-15.0 [facility] Comment on above: Result Comment: Canc elled via OM: Order cancelled - Patient discharged Performed By: #### L 501.080 #### [facility] [address] [place], [address] MCH Normal 27.0-32.0 [facility] Comment on above: Result Comment: Canc elled via OM: Order cancelled - Patient discharged Performed By: #### L 501.080 #### [facility] [address] [place], [address] MCHC Normal 32-36 [facility] Comment on above: Result Comment: Canc elled via OM: Order cancelled - Patient discharged Performed By: #### L 501.080 #### [facility] [address] [place], [address] MCV Normal 81-99 [facility] Comment on above: Result Comment: Canc elled via OM: Order cancelled - Patient discharged Performed By: #### L 501.080 #### [facility] [address] [place], [address] NEUT% Normal 47-70 [facility] Comment on above: Result Comment: Canc elled via OM: Order cancelled - Patient discharged Performed By: #### L 501.080 #### [facility] [address] [place], [address] PLT Normal 150-450 [facility] Comment on above: Result Comment: Canc elled via OM: Order cancelled - Patient discharged Performed By: #### L 501.080 #### [facility] [address] [place], [address] RBC Normal 4.2-5.4 [facility] Comment on above: Result Comment: Canc elled via OM: Order cancelled - Patient discharged Performed By: #### L 501.080 #### [facility] [address] [place], [address] RDW CV Normal 11.6-14.6 [facility] Comment on above: Result Comment: Canc elled via OM: Order cancelled - Patient discharged Performed By: #### L 501.080 #### [facility] [address] [place], [address] RDW SD Normal 35.1-43.9 [facility] Comment on above: Result Comment: Canc elled via OM: Order cancelled - Patient discharged Performed By: #### L 501.080 #### [facility] [address] [place], [address] WBC Normal 4.4-11.0 [facility] Comment on above: Result Comment: Canc elled via OM: Order cancelled - Patient discharged Performed By: #### L 501.080 #### [facility] [address] [place], [address] Basic Metabolic Profile (BMP )on 05-18-2025 BUN Normal 4-19 [facility] Comment on above: Result Comment: Canc elled via OM: Order cancelled - Patient discharged Performed By: #### L 500.2500, L100.0100 #### [facility] [address] [place], [address] BUN/CRE Normal 10-20 [facility] Comment on above: Result Comment: Canc elled via OM: Order cancelled - Patient discharged Performed By: #### L 500.2500, L100.0100 #### [facility] [address] [place], [address] Calcium Normal 7.6-11.0 [facility] Comment on above: Result Comment: Canc elled via OM: Order cancelled - Patient discharged Performed By: #### L 500.2500, L100.0100 #### [facility] [address] [place], [address] CL Normal 98-108 [facility] Comment on above: Result Comment: Canc elled via OM: Order cancelled - Patient discharged Performed By: #### L 500.2500, L100.0100 #### [facility] [address] [place], [address] CO2 Normal 21.0-32.0 [facility] Comment on above: Result Comment: Canc elled via OM: Order cancelled - Patient discharged Performed By: #### L 500.2500, L100.0100 #### [facility] [address] [place], [address] CREAT,SERUM Normal 0.70-1.20 [facility] Comment on above: Result Comment: Canc elled via OM: Order cancelled - Patient discharged Performed By: #### L 500.2500, L100.0100 #### [facility] [address] [place], [address] eGFR Normal >60 [facility] Comment on above: Result Comment: Canc elled via OM: Order cancelled - Patient discharged Performed By: #### L 500.2500, L100.0100 #### [facility] [address] [place], [address] GAP Normal 5-15 [facility] Comment on above: Result Comment: Canc elled via OM: Order cancelled - Patient discharged Performed By: #### L 500.2500, L100.0100 #### [facility] [address] [place], [address] GLU Normal 70-99 [facility] Comment on above: Result Comment: Canc elled via OM: Order cancelled - Patient discharged Performed By: #### L 500.2500, L100.0100 #### [facility] [address] [place], [address] Potassium Normal 3.3-5.1 [facility] Comment on above: Result Comment: Canc elled via OM: Order cancelled - Patient discharged Performed By: #### L 500.2500, L100.0100 #### [facility] [address] [place], [address] Basic Metabolic Profile (BMP) Normal 133-145 [facility] Comment on above: Result Comment: Canc elled via OM: Order cancelled - Patient discharged Performed By: #### L 500.2500, L100.0100 #### [facility] [address] [place], [address] CBC W/Diff, Automatedon 11-2 Absolute Neut Normal 2.0-7.7 [facility] Comment on above: Result Comment: Canc elled via OM: Order cancelled - Patient discharged Performed By: #### L 500.2500, L100.0100 #### [facility] [address] [place], [address] HCT Normal 37-47 [facility] Comment on above: Result Comment: Canc elled via OM: Order cancelled - Patient discharged Performed By: #### L 500.2500, L100.0100 #### [facility] [address] [place], [address] HGB Normal 12.0-15.0 [facility] Comment on above: Result Comment: Canc elled via OM: Order cancelled - Patient discharged Performed By: #### L 500.2500, L100.0100 #### [facility] [address] [place], [address] MCH Normal 27.0-32.0 [facility] Comment on above: Result Comment: Canc elled via OM: Order cancelled - Patient discharged Performed By: #### L 500.2500, L100.0100 #### [facility] [address] [place], [address] MCHC Normal 32-36 [facility] Comment on above: Result Comment: Canc elled via OM: Order cancelled - Patient discharged Performed By: #### L 500.2500, L100.0100 #### [facility] [address] [place], [address] MCV Normal 81-99 [facility] Comment on above: Result Comment: Canc elled via OM: Order cancelled - Patient discharged Performed By: #### L 500.2500, L100.0100 #### [facility] [address] [place], [address] NEUT% Normal 47-70 [facility] Comment on above: Result Comment: Canc elled via OM: Order cancelled - Patient discharged Performed By: #### L 500.2500, L100.0100 #### [facility] [address] [place], [address] PLT Normal 150-450 [facility] Comment on above: Result Comment: Canc elled via OM: Order cancelled - Patient discharged Performed By: #### L 500.2500, L100.0100 #### [facility] [address] [place], [address] RBC Normal 4.2-5.4 [facility] Comment on above: Result Comment: Canc elled via OM: Order cancelled - Patient discharged Performed By: #### L 500.2500, L100.0100 #### [facility] [address] [place], [address] RDW CV Normal 11.6-14.6 [facility] Comment on above: Result Comment: Canc elled via OM: Order cancelled - Patient discharged Performed By: #### L 500.2500, L100.0100 #### [facility] [address] [place], [address] RDW SD Normal 35.1-43.9 [facility] Comment on above: Result Comment: Canc elled via OM: Order cancelled - Patient discharged Performed By: #### L 500.2500, L100.0100 #### [facility] [address] [place], [address] WBC Normal 4.4-11.0 [facility] Comment on above: Result Comment: Canc elled via OM: Order cancelled - Patient discharged Performed By: #### L 500.2500, L100.0100 #### [facility] [address] [place], [address] Basic Metabolic Profile (BMP )on 05-11-2025 BUN Normal 4-19 [facility] Comment on above: Result Comment: Canc elled via OM: Order cancelled - Patient discharged Performed By: #### L 500.2500, L100.0100 #### [facility] [address] [place], [address] BUN/CRE Normal 10-20 [facility] Comment on above: Result Comment: Canc elled via OM: Order cancelled - Patient discharged Performed By: #### L 500.2500, L100.0100 #### [facility] [address] [place], [address] Calcium Normal 7.6-11.0 [facility] Comment on above: Result Comment: Canc elled via OM: Order cancelled - Patient discharged Performed By: #### L 500.2500, L100.0100 #### [facility] [address] [place], [address] CL Normal 98-108 [facility] Comment on above: Result Comment: Canc elled via OM: Order cancelled - Patient discharged Performed By: #### L 500.2500, L100.0100 #### [facility] [address] [place], [address] CO2 Normal 21.0-32.0 [facility] Comment on above: Result Comment: Canc elled via OM: Order cancelled - Patient discharged Performed By: #### L 500.2500, L100.0100 #### [facility] [address] [place], [address] CREAT,SERUM Normal 0.70-1.20 [facility] Comment on above: Result Comment: Canc elled via OM: Order cancelled - Patient discharged Performed By: #### L 500.2500, L100.0100 #### [facility] [address] [place], [address] eGFR Normal >60 [facility] Comment on above: Result Comment: Canc elled via OM: Order cancelled - Patient discharged Performed By: #### L 500.2500, L100.0100 #### [facility] [address] [place], [address] GAP Normal 5-15 [facility] Comment on above: Result Comment: Canc elled via OM: Order cancelled - Patient discharged Performed By: #### L 500.2500, L100.0100 #### [facility] [address] [place], [address] GLU Normal 70-99 [facility] Comment on above: Result Comment: Canc elled via OM: Order cancelled - Patient discharged Performed By: #### L 500.2500, L100.0100 #### [facility] [address] [place], [address] Potassium Normal 3.3-5.1 [facility] Comment on above: Result Comment: Canc elled via OM: Order cancelled - Patient discharged Performed By: #### L 500.2500, L100.0100 #### [facility] [address] [place], [address] Basic Metabolic Profile (BMP) Normal 133-145 [facility] Comment on above: Result Comment: Canc elled via OM: Order cancelled - Patient discharged Performed By: #### L 500.2500, L100.0100 #### [facility] [address] [place], [address] CBC W/Diff, Automatedon 11- Absolute Neut Normal 2.0-7.7 [facility] Comment on above: Result Comment: Canc elled via OM: Order cancelled - Patient discharged Performed By: #### L 500.2500, L100.0100 #### [facility] [address] [place], [address] HCT Normal 37-47 [facility] Comment on above: Result Comment: Canc elled via OM: Order cancelled - Patient discharged Performed By: #### L 500.2500, L100.0100 #### [facility] [address] [place], [address] HGB Normal 12.0-15.0 [facility] Comment on above: Result Comment: Canc elled via OM: Order cancelled - Patient discharged Performed By: #### L 500.2500, L100.0100 #### [facility] [address] [place], [address] MCH Normal 27.0-32.0 [facility] Comment on above: Result Comment: Canc elled via OM: Order cancelled - Patient discharged Performed By: #### L 500.2500, L100.0100 #### [facility] [address] [place], [address] MCHC Normal 32-36 [facility] Comment on above: Result Comment: Canc elled via OM: Order cancelled - Patient discharged Performed By: #### L 500.2500, L100.0100 #### [facility] [address] [place], [address] MCV Normal 81-99 [facility] Comment on above: Result Comment: Canc elled via OM: Order cancelled - Patient discharged Performed By: #### L 500.2500, L100.0100 #### [facility] [address] [place], [address] NEUT% Normal 47-70 [facility] Comment on above: Result Comment: Canc elled via OM: Order cancelled - Patient discharged Performed By: #### L 500.2500, L100.0100 #### [facility] [address] [place], [address] PLT Normal 150-450 [facility] Comment on above: Result Comment: Canc elled via OM: Order cancelled - Patient discharged Performed By: #### L 500.2500, L100.0100 #### [facility] [address] [place], [address] RBC Normal 4.2-5.4 [facility] Comment on above: Result Comment: Canc elled via OM: Order cancelled - Patient discharged Performed By: #### L 500.2500, L100.0100 #### [facility] [address] [place], [address] RDW CV Normal 11.6-14.6 [facility] Comment on above: Result Comment: Canc elled via OM: Order cancelled - Patient discharged Performed By: #### L 500.2500, L100.0100 #### [facility] [address] [place], [address] RDW SD Normal 35.1-43.9 [facility] Comment on above: Result Comment: Canc elled via OM: Order cancelled - Patient discharged Performed By: #### L 500.2500, L100.0100 #### [facility] [address] [place], [address] WBC Normal 4.4-11.0 [facility] Comment on above: Result Comment: Canc elled via OM: Order cancelled - Patient discharged Performed By: #### L 500.2500, L100.0100 #### [facility] [address] [place], [address] Basic Metabolic Profile (BMP )on 05-10-2025 BUN Normal 4-19 [facility] Comment on above: Result Comment: Canc elled via OM: Order cancelled - Patient discharged Performed By: #### L 500.2500, L100.0100 #### [facility] [address] [place], [address] BUN/CRE Normal 10-20 [facility] Comment on above: Result Comment: Canc elled via OM: Order cancelled - Patient discharged Performed By: #### L 500.2500, L100.0100 #### [facility] [address] [place], [address] Calcium Normal 7.6-11.0 [facility] Comment on above: Result Comment: Canc elled via OM: Order cancelled - Patient discharged Performed By: #### L 500.2500, L100.0100 #### [facility] [address] [place], [address] CL Normal 98-108 [facility] Comment on above: Result Comment: Canc elled via OM: Order cancelled - Patient discharged Performed By: #### L 500.2500, L100.0100 #### [facility] [address] [place], [address] CO2 Normal 21.0-32.0 [facility] Comment on above: Result Comment: Canc elled via OM: Order cancelled - Patient discharged Performed By: #### L 500.2500, L100.0100 #### [facility] [address] [place], [address] CREAT,SERUM Normal 0.70-1.20 [facility] Comment on above: Result Comment: Canc elled via OM: Order cancelled - Patient discharged Performed By: #### L 500.2500, L100.0100 #### [facility] [address] [place], [address] eGFR Normal >60 [facility] Comment on above: Result Comment: Canc elled via OM: Order cancelled - Patient discharged Performed By: #### L 500.2500, L100.0100 #### [facility] [address] [place], [address] GAP Normal 5-15 [facility] Comment on above: Result Comment: Canc elled via OM: Order cancelled - Patient discharged Performed By: #### L 500.2500, L100.0100 #### [facility] [address] [place], [address] GLU Normal 70-99 [facility] Comment on above: Result Comment: Canc elled via OM: Order cancelled - Patient discharged Performed By: #### L 500.2500, L100.0100 #### [facility] [address] [place], [address] Potassium Normal 3.3-5.1 [facility] Comment on above: Result Comment: Canc elled via OM: Order cancelled - Patient discharged Performed By: #### L 500.2500, L100.0100 #### [facility] [address] [place], [address] Basic Metabolic Profile (BMP) Normal 133-145 [facility] Comment on above: Result Comment: Canc elled via OM: Order cancelled - Patient discharged Performed By: #### L 500.2500, L100.0100 #### [facility] [address] [place], [address] CBC W/Diff, Automatedon 11-1 Absolute Neut Normal 2.0-7.7 [facility] Comment on above: Result Comment: Canc elled via OM: Order cancelled - Patient discharged Performed By: #### L 500.2500, L100.0100 #### [facility] [address] [place], [address] HCT Normal 37-47 [facility] Comment on above: Result Comment: Canc elled via OM: Order cancelled - Patient discharged Performed By: #### L 500.2500, L100.0100 #### [facility] [address] [place], [address] HGB Normal 12.0-15.0 [facility] Comment on above: Result Comment: Canc elled via OM: Order cancelled - Patient discharged Performed By: #### L 500.2500, L100.0100 #### [facility] [address] [place], [address] MCH Normal 27.0-32.0 [facility] Comment on above: Result Comment: Canc elled via OM: Order cancelled - Patient discharged Performed By: #### L 500.2500, L100.0100 #### [facility] [address] [place], [address] MCHC Normal 32-36 [facility] Comment on above: Result Comment: Canc elled via OM: Order cancelled - Patient discharged Performed By: #### L 500.2500, L100.0100 #### [facility] [address] [place], [address] MCV Normal 81-99 [facility] Comment on above: Result Comment: Canc elled via OM: Order cancelled - Patient discharged Performed By: #### L 500.2500, L100.0100 #### [facility] [address] [place], [address] NEUT% Normal 47-70 [facility] Comment on above: Result Comment: Canc elled via OM: Order cancelled - Patient discharged Performed By: #### L 500.2500, L100.0100 #### [facility] [address] [place], [address] PLT Normal 150-450 [facility] Comment on above: Result Comment: Canc elled via OM: Order cancelled - Patient discharged Performed By: #### L 500.2500, L100.0100 #### [facility] [address] [place], [address] RBC Normal 4.2-5.4 [facility] Comment on above: Result Comment: Canc elled via OM: Order cancelled - Patient discharged Performed By: #### L 500.2500, L100.0100 #### [facility] [address] [place], [address] RDW CV Normal 11.6-14.6 [facility] Comment on above: Result Comment: Canc elled via OM: Order cancelled - Patient discharged Performed By: #### L 500.2500, L100.0100 #### [facility] [address] [place], [address] RDW SD Normal 35.1-43.9 [facility] Comment on above: Result Comment: Canc elled via OM: Order cancelled - Patient discharged Performed By: #### L 500.2500, L100.0100 #### [facility] [address] [place], [address] WBC Normal 4.4-11.0 [facility] Comment on above: Result Comment: Canc elled via OM: Order cancelled - Patient discharged Performed By: #### L 500.2500, L100.0100 #### [facility] [address] [place], [address] Bacteriaon 05-06-2025 Bacteria identified Cx Nom (Bld) [facility] Comment on above: Performed By: #### 6 00-7 ####CALE Roth ([id number])[facility] ([facility])[address] [place] [address] Blood type and Indirect anti body screen panel (Bld)on 05-05-2025 ABO group Nom (Bld) B Normal [facility] Comment on above: Performed By: #### 3 4532-2 ####CALE Roth ([id number])[facility] ([facility])[address] [facility] [place] [address] Blood group antibody screen Ql Negative Normal [facility] Comment on above: Performed By: #### 3 4532-2 ####CALE Roth ([id number])[facility] ([facility])[address] [facility] [place] [address] D Ag Ql (Bld) Positive [facility] Comment on above: Performed By: #### 3 4532-2 ####CALE Roth ([id number])[facility] ([facility])[address] [facility] [place] [address] C reactive proteinon 025 CRP [Mass/Vol] 0.36 mg/dL Normal <1.00 [facility] Comment on above: Performed By: #### 1 988-5 ####CALE Roth ([id number])[facility] ([facility])[address] [place] [address] CBC W Auto Differential pane l (Bld)on 05-05-2025 Basophils (Bld) [#/Vol] 0.06 x10*3/uL Normal 0.00-0.10 [facility] Comment on above: Performed By: #### 5 7021-8 ####CALE Roth ([id number])[facility] ([facility])[address] [place] [address] Basophils/100 WBC (Bld) 1.0 % Normal 0.0-2.0 [facility] Comment on above: Performed By: #### 5 7021-8 ####CALE Roth ([id number])[facility] ([facility])[address] [place] [address] Eosinophils (Bld) [#/Vol] 0.10 x10*3/uL Normal 0.00-0.70 [facility] Comment on above: Performed By: #### 5 7021-8 ####CALE Roth ([id number])[facility] ([facility])[id number] [place] [address] Eosinophils/100 WBC (Bld) 1.7 % Normal 0.0-6.0 [facility] Comment on above: Performed By: #### 5 7021-8 ####CALE Roth ([id number])[facility] ([facility])[id number] [place] [address] Erythrocyte distribution width (RBC) [Ratio] 12.6 % Normal 11.5-14.5 [facility] Comment on above: Performed By: #### 5 7021-8 ####CALE Roth ([id number])[facility] ([facility])[address] [place] [address] Hematocrit (Bld) [Volume fraction] 39.8 % Normal 36.0-46.0 [facility] Comment on above: Performed By: #### 5 7021-8 ####CALE Roth ([id number])[facility] ([facility])[address] [place] [address] Hemoglobin (Bld) [Mass/Vol] 14.1 g/dL Normal 12.0-16.0 [facility] Comment on above: Performed By: #### 5 7021-8 ####CALE Roth ([id number])[facility] ([facility])[address] [place] [address] Immature granulocytes (Bld) [#/Vol] 0.06 x10*3/uL Normal 0.00-0.70 [facility] Comment on above: Performed By: #### 5 7021-8 ####CALE Roth ([id number])[facility] ([facility])[id number] [place] [address] Immature granulocytes/100 WBC (Bld) 1.0 % High 0.0-0.9 [facility] Comment on above: Result Comment: Aleisha ture Granulocyte Count (IG) includes promyelocytes, myelocytes and metamyelocytes but does not include bands. Percent differential counts (%) should be interpreted in the context of the absolute cell counts (cells/UL). Performed By: #### 5 7021-8 ####CALE Roth ([id number])[facility] ([facility])[address] [place] [address] Lymphocytes (Bld) [#/Vol] 2.08 x10*3/uL Normal 1.20-4.80 [facility] Comment on above: Performed By: #### 5 7021-8 ####CALE Roth ([id number])[facility] ([facility])[address] [place] [address] Lymphocytes/100 WBC (Bld) 34.6 % Normal 13.0-44.0 [facility] Comment on above: Performed By: #### 5 7021-8 ####CALE Roth ([id number])[facility] ([facility])[address] [place] [address] MCH (RBC) [Entitic mass] 28.7 pg Normal 26.0-34.0 [facility] Comment on above: Performed By: #### 5 7021-8 ####CALE Roth ([id number])[facility] ([facility])[address] [place] [address] MCHC (RBC) [Mass/Vol] 35.4 g/dL Normal 32.0-36.0 [facility] Comment on above: Performed By: #### 5 7021-8 ####CALE Roth ([id number])[facility] ([facility])[address] [place] [address] MCV (RBC) [Entitic vol] 81 fL Normal 80-100 [facility] Comment on above: Performed By: #### 5 7021-8 ####CALE Roth ([id number])[facility] ([facility])[address] [place] [address] Monocytes (Bld) [#/Vol] 0.67 x10*3/uL Normal 0.10-1.00 [facility] Comment on above: Performed By: #### 5 7021-8 ####CALE Roth ([id number])[facility] ([facility])[address] [place] [address] Monocytes/100 WBC (Bld) 11.1 % Normal 2.0-10.0 [facility] Comment on above: Performed By: #### 5 7021-8 ####CALE Roth ([id number])[facility] ([facility])[address] [place] [address] Neutrophils (Bld) [#/Vol] 3.05 x10*3/uL Normal 1.20-7.70 [facility] Comment on above: Result Comment: Perc ent differential counts (%) should be interpreted in the context of the absolute cell counts (cells/uL). Performed By: #### 5 7021-8 ####CALE Roth ([id number])[facility] ([facility])[address] [place] [address] Neutrophils/100 WBC (Bld) 50.6 % Normal 40.0-80.0 [facility] Comment on above: Performed By: #### 5 7021-8 ####CALE Roth ([id number])[facility] ([facility])[address] [place] [address] Nucleated RBC/100 WBC (Bld) [Ratio] 0.0 /100 WBCs Normal 0.0-0.0 [facility] Comment on above: Performed By: #### 5 7021-8 ####CALE CAI L ([id number])[facility] ([facility])[address] [place] [address] Platelets (Bld) [#/Vol] 197 x10*3/uL Normal 150-450 [facility] Comment on above: Performed By: #### 5 7021-8 ####CALE Roth ([id number])[facility] ([facility])[address] [place] [address] RBC (Bld) [#/Vol] 4.91 x10*6/uL Normal 4.00-5.20 [facility] Comment on above: Performed By: #### 5 7021-8 ####CALE Roth ([id number])[facility] ([facility])[address] [place] [address] WBC (Bld) [#/Vol] 6.0 x10*3/uL Normal 4.4-11.3 [facility] Comment on above: Performed By: #### 5 7021-8 ####CALE Roth ([id number])[facility] ([facility])[address] [place] [address] CT TRANSFER OF OUTSIDE FILMS on 05-05-2025 CT TRANSFER OF OUTSIDE FILMS Outside images for comparison or treatment purposes, not interpreted by Radiologists. Normal [facility] Choriogonadotropin.beta subu niton 05-05-2025 HCG.beta subunit Qn m[IU]/mL Normal <5 [facility] Comment on above: Order Comment: Total HCG measurement is performed using the Siemens [employer]ell[employer] immunoassay which detects intact HCG and free beta HCG subunit. This test is not indicated for use as a tumor marker. HCG testing is performed using a different test methodology at [facility] than other [facility]. Direct result comparison should only be made within the same method. Performed By: #### 2 1198-7 ####CALE Roth ([id number])[facility] ([facility])[address] [place] [address] Comprehensive metabolic 2000 panelon 05-05-2025 Albumin BCP dye [Mass/Vol] 4.1 g/dL Normal 3.4-5.0 [facility] Comment on above: Performed By: #### 2 4323-8 ####CALE Roth ([id number])[facility] ([facility])[address] [place] [address] ALP [Catalytic activity/Vol] 83 U/L Normal 33-110 [facility] Comment on above: Performed By: #### 2 4323-8 ####CALE Roth ([id number])[facility] ([facility])[address] [place] [address] ALT With P-5'-P [Catalytic activity/Vol] 34 U/L Normal 7-45 [facility] Comment on above: Result Comment: Rehana ents treated with Sulfasalazine may generate falsely decreased results for ALT. Performed By: #### 2 4323-8 ####CALE Roth ([id number])[facility] ([facility])[address] [place] [address] Anion gap [Moles/Vol] 16 mmol/L Normal 10-20 [facility] Comment on above: Performed By: #### 2 4323-8 ####CALE Roth ([id number])[facility] ([facility])[address] [place] [address] AST With P-5'-P [Catalytic activity/Vol] 32 U/L Normal 9-39 [facility] Comment on above: Result Comment: MILD HEMOLYSIS DETECTED. The result may be falsely elevated due to hemolysis or other interferents. Clinical correlation is recommended. Repeat testing may be considered. Performed By: #### 2 4323-8 ####CLAE Roth ([id number])[facility] ([facility])[address] [place] [address] Bilirubin [Mass/Vol] 0.4 mg/dL Normal 0.0-1.2 [facility] Comment on above: Performed By: #### 2 4323-8 ####CALE Roth ([id number])[facility] ([facility])[address] [place] [address] Calcium [Mass/Vol] 10.4 mg/dL Normal 8.6-10.6 [facility] Comment on above: Performed By: #### 2 4323-8 ####CALE Roth ([id number])[facility] ([facility])[address] [place] [address] Chloride [Moles/Vol] 95 mmol/L Low 98-107 [facility] Comment on above: Performed By: #### 2 4323-8 ####CALE Roth ([id number])[facility] ([facility])[address] [place] [address] CO2 [Moles/Vol] 31 mmol/L Normal 21-32 [facility] Comment on above: Result Comment: Bica rbonate results may be falsely elevated when Lactate Dehydrogenase (LDH) concentrations exceed 2,000 U/L due to a temporary reagent manufacturing issue. If significantly elevated LDH levels are suspected, interpret bicarbonate results with caution, correlate with the patient's clinical status, and consider confirming CO2 values using a blood gas analyzer. Performed By: #### 2 4323-8 ####CALE Roth ([id number])[facility] ([facility])[address] [place] [address] Creatinine [Mass/Vol] 0.28 mg/dL Low 0.50-1.05 [facility] Comment on above: Performed By: #### 2 4323-8 ####CALE Roth ([id number])[facility] ([facility])[address] [place] [address] Glomerular filtration rate >90 Normal >60 [facility] Comment on above: Result Comment: Calc ulations of estimated GFR are performed using the 2020 CKD-EPI Study Refit equation without the race variable for the IDMS-Traceable creatinine methods.https://jasn.asnjournals.org/content//ASN .0840540782 Performed By: #### 2 4323-8 ####CALE Roth ([id number])[facility] ([facility])[address] [place] [address] Glucose [Mass/Vol] 95 mg/dL Normal 74-99 [facility] Comment on above: Performed By: #### 2 4323-8 ####CALE Roth ([id number])[facility] ([facility])[address] [place] [address] Potassium [Moles/Vol] 5.1 mmol/L Normal 3.5-5.3 [facility] Comment on above: Result Comment: MILD HEMOLYSIS DETECTED. The result may be falsely elevated due to hemolysis or other interferents. Clinical correlation is recommended. Repeat testing may be considered. Performed By: #### 2 4323-8 ####CALE CAI L ([id number])[facility] ([facility])[address] [place] [address] Protein [Mass/Vol] 7.9 g/dL Normal 6.4-8.2 [facility] Comment on above: Performed By: #### 2 4323-8 ####CALE PARKERTZER L ([id number])[facility] ([facility])[address] [place] [address] Sodium [Moles/Vol] 137 mmol/L Normal 136-145 [facility] Comment on above: Performed By: #### 2 4323-8 ####CALE TOSCANOMOTZER L ([id number])[facility] ([facility])[address] [place] [address] Urea nitrogen [Mass/Vol] 10 mg/dL Normal 6-23 [facility] Comment on above: Performed By: #### 2 4323-8 ####CALE TOSCANOMOTZER L ([id number])[facility] ([facility])[address] [place] [address] ECG 12-LEADon 05-05-2025 ECG 12-LEAD Ventricular Rate 113 Atrial Rate 113 P-R Interval 136 QRS Duration 78 Q-T Interval 324 QTC Calculation(Bazett) 444 P [place] 72 R [place] 91 T [place] 74 QRS Count 19 Q Onset 220 P Onset 152 P Offset 201 T Offset 382 QTC Fredericia 400 Diagnosis Sinus tachycardia Rightward axis Borderline ECG When compared with ECG of 25-MAR-2025 17:10, Non-specific change in ST segment in Inferior leads T wave inversion no longer evident in Inferior leads T wave inversion no longer evident in Lateral leads See ED provider note for full interpretation and clinical correlation Confirmed by Joaquina Lopez ([id number]) on 05/05/2025 4:56:53 AM Normal [facility] ESR Westergren method (Bld) [Velocity]on 11-12-2025 ESR (Bld) [Velocity] 22 mm/h High 0-20 [facility] Comment on above: Performed By: #### 4 537-7 ####CALE Roth ([id number])[facility] ([facility])[id number] [place] [address] MR BRAIN W AND WO IV CONTRAS Ton 05-05-2025 MR BRAIN W AND WO IV CONTRAST Normal [facility] PT and aPTT panel Coag (PPP) on 05-05-2025 aPTT Coag (PPP) [Time] 26 s Normal 26-36 [facility] Comment on above: Order Comment: The A PTT is no longer used for monitoring Unfractionated Heparin Therapy. For monitoring Heparin Therapy, use the Heparin Assay. Performed By: #### 3 4529-8 ####CALE Roth ([id number])[facility] ([facility])[address] [place] [address] INR Coag (PPP) [Relative time] 1.1 Normal 0.9-1.1 [facility] Comment on above: Order Comment: The A PTT is no longer used for monitoring Unfractionated Heparin Therapy. For monitoring Heparin Therapy, use the Heparin Assay. Performed By: #### 3 4529-8 ####CALE Roth ([id number])[facility] ([facility])[id number] [place] [address] PT Coag (PPP) [Time] 12.2 s Normal 9.8-12.4 [facility] Comment on above: Order Comment: The A PTT is no longer used for monitoring Unfractionated Heparin Therapy. For monitoring Heparin Therapy, use the Heparin Assay. Performed By: #### 3 4529-8 ####CALE Roth ([id number])[facility] ([facility])[id number] [place] [address] XR CHEST 1 VIEWon 05-05-2025 XR CHEST 1 VIEW Normal [facility] XR SHUNT SERIESon 05-05-2025 XR SHUNT SERIES Normal [facility] Basic Metabolic Profile (BMP )on 05-04-2025 BUN/CRE 23.3 RATIO High 10-20 [facility] Comment on above: Performed By: #### L 100.0100, L500.2500 #### [facility] [address] [place], [address] Calcium [Mass/Vol] 9.3 mg/dL Normal 7.6-11.0 [facility] Comment on above: Performed By: #### L 100.0100, L500.2500 #### [facility] [address] [place], [address] Chloride [Moles/Vol] 97 mmol/L Low 98-108 [facility] Comment on above: Performed By: #### L 100.0100, L500.2500 #### [facility] [address] [place], [address] CO2 [Moles/Vol] 23.2 mmol/L Normal 21.0-32.0 [facility] Comment on above: Performed By: #### L 100.0100, L500.2500 #### [facility] [address] [place], [address] Creatinine [Mass/Vol] 0.35 mg/dL Low 0.70-1.20 [facility] Comment on above: Performed By: #### L 100.0100, L500.2500 #### [facility] [address] [place], [address] ECRCL 155.26 ml/min Normal 50-250 [facility] Comment on above: Performed By: #### L 100.0100, L500.2500 #### [facility] [address] [place], [address] GAP 17 High 5-15 [facility] Comment on above: Performed By: #### L 100.0100, L500.2500 #### [facility] [address] [place], [address] GFR/1.73 sq M.predicted among non-blacks MDRD (S/P/Bld) [Vol rate/Area] 148 mL/min/{1.73_m2} Normal >60 [facility] Comment on above: Result Comment: mL/m in/1.73m2 CKD-EPI Creatinine Equation (2020) Performed By: #### L 100.0100, L500.2500 #### [facility] [address] [place], [address] Glucose [Mass/Vol] 139 mg/dL High 70-99 [facility] Comment on above: Performed By: #### L 100.0100, L500.2500 #### [facility] [address] [place], [address] Potassium [Moles/Vol] 3.7 mmol/L Normal 3.3-5.1 [facility] Comment on above: Performed By: #### L 100.0100, L500.2500 #### [facility] [address] [place], [address] Sodium [Moles/Vol] 137 mmol/L Normal 133-145 [facility] Comment on above: Performed By: #### L 100.0100, L500.2500 #### [facility] [address] [place], [address] Urea nitrogen [Mass/Vol] 8 mg/dL Normal 4-19 [facility] Comment on above: Performed By: #### L 100.0100, L500.2500 #### [facility] [address] [place], [address] Bedside Glucoseon 05-04-2025 FINGERSTICK GLU 120 mg/dL High 74-106 [facility] Comment on above: Result Comment: BONNIE AL OF PATIENT CARE PER NURSING PROTOCOL Performed By: #### L 500.2500, L100.0100 #### [facility] [address] [place], [address] CBC W/Diff, Automatedon 04-245 Absolute Lymph 1.66 X10 3/uL Normal 0.83-4.51 [facility] Comment on above: Performed By: #### L 100.0100, L500.2500 #### [facility] [address] [place], [address] Absolute Neut 4.0 X10 3/uL Normal 2.0-7.7 [facility] Comment on above: Performed By: #### L 100.0100, L500.2500 #### [facility] [address] [place], [address] Basophils/100 WBC (Bld) 0.3 % Normal 0-1 [facility] Comment on above: Performed By: #### L 100.0100, L500.2500 #### [facility] [address] [place], [address] Eosinophils/100 WBC (Bld) 1.9 % Normal 0-5 [facility] Comment on above: Performed By: #### L 100.0100, L500.2500 #### [facility] [address] [place], [address] Erythrocyte distribution width (RBC) [Ratio] 12.9 % Normal 11.6-14.6 [facility] Comment on above: Performed By: #### L 100.0100, L500.2500 #### [facility] [address] [place], [address] Hematocrit (Bld) [Volume fraction] 37.7 % Normal 37-47 [facility] Comment on above: Performed By: #### L 100.0100, L500.2500 #### [facility] [address] [place], [address] Hemoglobin (Bld) [Mass/Vol] 12.7 g/dL Normal 12.0-15.0 [facility] Comment on above: Performed By: #### L 100.0100, L500.2500 #### [facility] [address] [place], [address] IG% 1.200 High 0.0-0.9 [facility] Comment on above: Result Comment: IG% - Immature Granulocytes (promyelocytes, myelocytes and metamyelocytes) > 1% indicates that a LEFT SHIFT is Present. Performed By: #### L 100.0100, L500.2500 #### [facility] [address] [place], [address] Lymphocytes/100 WBC (Bld) 25.7 % Normal 19-41 [facility] Comment on above: Performed By: #### L 100.0100, L500.2500 #### [facility] [address] [place], [address] MCH (RBC) [Entitic mass] 28.7 pg Normal 27.0-32.0 [facility] Comment on above: Performed By: #### L 100.0100, L500.2500 #### [facility] [address] [place], [address] MCHC (RBC) [Mass/Vol] 33.7 g/dL Normal 32-36 [facility] Comment on above: Performed By: #### L 100.0100, L500.2500 #### [facility] [address] [place], [address] MCV (RBC) [Entitic vol] 85.3 fL Normal 81-99 [facility] Comment on above: Performed By: #### L 100.0100, L500.2500 #### [facility] [address] [place], [address] Monocytes/100 WBC (Bld) 9.6 % Normal 0-10 [facility] Comment on above: Performed By: #### L 100.0100, L500.2500 #### [facility] [address] [place], [address] Neutrophils/100 WBC (Bld) 61.3 % Normal 47-70 [facility] Comment on above: Performed By: #### L 100.0100, L500.2500 #### [facility] [address] [place], [address] Nucleated RBC (Bld) [#/Vol] 0 10*3/uL Normal 0-5 [facility] Comment on above: Performed By: #### L 100.0100, L500.2500 #### [facility] [address] [place], [address] Platelet mean volume (Bld) [Entitic vol] 11.1 fL Normal 6.2-12.0 [facility] Comment on above: Performed By: #### L 100.0100, L500.2500 #### [facility] [address] [place], [address] Platelets (Bld) [#/Vol] 231 10*3/uL Normal 150-450 [facility] Comment on above: Performed By: #### L 100.0100, L500.2500 #### [facility] [address] [place], [address] RBC (Bld) [#/Vol] 4.42 10*6/uL Normal 4.2-5.4 [facility] Comment on above: Performed By: #### L 100.0100, L500.2500 #### [facility] [address] [place], [address] RDW SD 39.6 fl Normal 35.1-43.9 [facility] Comment on above: Performed By: #### L 100.0100, L500.2500 #### [facility] [address] [place], [address] WBC (Bld) [#/Vol] 6.5 10*3/uL Normal 4.4-11.0 [facility] Comment on above: Performed By: #### L 100.0100, L500.2500 #### [facility] [address] [place], [address] Basic Metabolic Profile (BMP )on 05-03-2025 BUN Normal 4-19 [facility] Comment on above: Result Comment: Canc elled via OM: Order cancelled - Patient discharged Performed By: #### L 100.0100, L500.2500 #### [facility] [address] [place], [address] BUN/CRE Normal 10-20 [facility] Comment on above: Result Comment: Canc elled via OM: Order cancelled - Patient discharged Performed By: #### L 100.0100, L500.2500 #### [facility] [address] [place], [address] Calcium Normal 7.6-11.0 [facility] Comment on above: Result Comment: Canc elled via OM: Order cancelled - Patient discharged Performed By: #### L 100.0100, L500.2500 #### [facility] [address] [place], [address] CL Normal 98-108 [facility] Comment on above: Result Comment: Canc elled via OM: Order cancelled - Patient discharged Performed By: #### L 100.0100, L500.2500 #### [facility] [address] [place], [address] CO2 Normal 21.0-32.0 [facility] Comment on above: Result Comment: Canc elled via OM: Order cancelled - Patient discharged Performed By: #### L 100.0100, L500.2500 #### [facility] [address] [place], [address] CREAT,SERUM Normal 0.70-1.20 [facility] Comment on above: Result Comment: Canc elled via OM: Order cancelled - Patient discharged Performed By: #### L 100.0100, L500.2500 #### [facility] [address] [place], [address] eGFR Normal >60 [facility] Comment on above: Result Comment: Canc elled via OM: Order cancelled - Patient discharged Performed By: #### L 100.0100, L500.2500 #### [facility] [address] [place], [address] GAP Normal 5-15 [facility] Comment on above: Result Comment: Canc elled via OM: Order cancelled - Patient discharged Performed By: #### L 100.0100, L500.2500 #### [facility] [address] [place], [address] GLU Normal 70-99 [facility] Comment on above: Result Comment: Canc elled via OM: Order cancelled - Patient discharged Performed By: #### L 100.0100, L500.2500 #### [facility] [address] [place], [address] Potassium Normal 3.3-5.1 [facility] Comment on above: Result Comment: Canc elled via OM: Order cancelled - Patient discharged Performed By: #### L 100.0100, L500.2500 #### [facility] [address] [place], [address] Basic Metabolic Profile (BMP) Normal 133-145 [facility] Comment on above: Result Comment: Canc elled via OM: Order cancelled - Patient discharged Performed By: #### L 100.0100, L500.2500 #### [facility] [address] [place], [address] Bedside Glucoseon 05-03-2025 FINGERSTICK GLU 147 mg/dL High 74-106 [facility] Comment on above: Result Comment: BONNIE CRYSTALENT OF PATIENT CARE PER NURSING PROTOCOL Performed By: #### L 100.0100, L500.2500 #### [facility] [address] [place], [address] FINGERSTICK GLU 124 mg/dL High 74-106 [facility] Comment on above: Result Comment: BONNIE AL OF PATIENT CARE PER NURSING PROTOCOL Performed By: #### L 500.2500, L100.0100 #### [facility] [address] [place], [address] Brain/Head without Contrasto n 05-03-2025 Brain/Head without Contrast [facility] Services [address] [place] [address] Brain/Head without Contrast MR#: [id number] Acct: [id number] Name: KIMANI COHEN Rep #: [id number] : 2000 F 24 From: Arian Wills MD PCP: Dr. Yessenia Dixon MD Status: REG CLI Study: Brain/Head without Contrast Date of Exam: 04/24 Exam# [id number] Ordering Dr: Benjy Gonzalez MD PROCEDURE: BRAIN/HEAD WITHOUT CONTRAST 05/03/2025 REASON FOR EXAM: CEREBRAL ANEURYSM, NONRUPTURED TECHNIQUE: Procedure Code: CTBR Modality: CT Procedure: BRAIN/HEAD WITHOUT CONTRAST Coronal and Sagittal reconstruction series were provided. One or more dose reduction techniques were used (e.g., Automated exposure control, adjustment of the mA and/or kV according to patient size, use of iterative reconstruction technique. RADIATION DOSE SUMMARY: DLP: 796 mGycm COMPARISON: April 20, 2025 FINDINGS: There is craniotomy change in the occipital region with vascular clips and trace amount of air at the surgical site and posterior fossa. There is a shunt in the right with its tip centrally located. There is low-density throughout the midbrain and irene and in the right and left cerebellar hemispheres consistent with diffuse edema, similar to the prior. There is effacement of the basal cisterns. There is no evidence of hydrocephalus in the lateral ventricles. There is no visible acute hemorrhage. There is no midline shift. CT/Brain/Head without Contrast IMPRESSION: There is craniotomy change in the occipital region with vascular clips and trace amount of air at the surgical site and posterior fossa. Clinical correlation is recommended. There is a shunt in the right with its tip centrally located. There is low-density throughout the midbrain and irene and in the right and left cerebellar hemispheres consistent with diffuse edema, similar to the prior. There is effacement of the basal cisterns. Reading Location: [facility] CC: Dr. Yessenia Dixon MD; Dr. Benjy Gonzalez MD [employer] Setter: Signed Normal [facility] CBC W/Diff, Automatedon 11-1 Absolute Neut Normal 2.0-7.7 [facility] Comment on above: Result Comment: Canc elled via OM: Order cancelled - Patient discharged Performed By: #### L 100.0100, L500.2500 #### [facility] [address] [place], [address] HCT Normal 37-47 [facility] Comment on above: Result Comment: Canc elled via OM: Order cancelled - Patient discharged Performed By: #### L 100.0100, L500.2500 #### [facility] [address] [place], [address] HGB Normal 12.0-15.0 [facility] Comment on above: Result Comment: Canc elled via OM: Order cancelled - Patient discharged Performed By: #### L 100.0100, L500.2500 #### [facility] [address] [place], [address] MCH Normal 27.0-32.0 [facility] Comment on above: Result Comment: Canc elled via OM: Order cancelled - Patient discharged Performed By: #### L 100.0100, L500.2500 #### [facility] [address] [place], [address] MCHC Normal 32-36 [facility] Comment on above: Result Comment: Canc elled via OM: Order cancelled - Patient discharged Performed By: #### L 100.0100, L500.2500 #### [facility] [address] [place], [address] MCV Normal 81-99 [facility] Comment on above: Result Comment: Canc elled via OM: Order cancelled - Patient discharged Performed By: #### L 100.0100, L500.2500 #### [facility] [address] [place], [address] NEUT% Normal 47-70 [facility] Comment on above: Result Comment: Canc elled via OM: Order cancelled - Patient discharged Performed By: #### L 100.0100, L500.2500 #### [facility] [address] [place], [address] PLT Normal 150-450 [facility] Comment on above: Result Comment: Canc elled via OM: Order cancelled - Patient discharged Performed By: #### L 100.0100, L500.2500 #### [facility] [address] [place], [address] RBC Normal 4.2-5.4 [facility] Comment on above: Result Comment: Canc elled via OM: Order cancelled - Patient discharged Performed By: #### L 100.0100, L500.2500 #### [facility] [address] [place], [address] RDW CV Normal 11.6-14.6 [facility] Comment on above: Result Comment: Canc elled via OM: Order cancelled - Patient discharged Performed By: #### L 100.0100, L500.2500 #### [facility] [address] [place], [address] RDW SD Normal 35.1-43.9 [facility] Comment on above: Result Comment: Canc elled via OM: Order cancelled - Patient discharged Performed By: #### L 100.0100, L500.2500 #### [facility] [address] [place], [address] WBC Normal 4.4-11.0 [facility] Comment on above: Result Comment: Canc elled via OM: Order cancelled - Patient discharged Performed By: #### L 100.0100, L500.2500 #### [facility] [address] [place], [address] Bedside Glucoseon 05-02-2025 FINGERSTICK GLU 115 mg/dL High 74-106 [facility] Comment on above: Result Comment: BONNIE GEMENT OF PATIENT CARE PER NURSING PROTOCOL Performed By: #### L 501.080 #### [facility] [address] [place], [address] FINGERSTICK GLU 139 mg/dL High -106 [facility] Comment on above: Result Comment: BONNIE GEMENT OF PATIENT CARE PER NURSING PROTOCOL Performed By: #### L 500.2500, L100.0100 #### [facility] [address] [place], [address] Bedside Glucoseon 05-01-2025 FINGERSTICK GLU 83 mg/dL Normal 74-106 [facility] Comment on above: Result Comment: BONNIE GEMENT OF PATIENT CARE PER NURSING PROTOCOL Performed By: #### L 500.2500, L100.0100 #### [facility] [address] [place], [address] FINGERSTICK GLU 142 mg/dL High 74-106 [facility] Comment on above: Result Comment: BONNIE GEMENT OF PATIENT CARE PER NURSING PROTOCOL Performed By: #### L 500.2500, L100.0100 #### [facility] [address] [place], [address] Bedside Glucoseon 04-30-2025 FINGERSTICK GLU 108 mg/dL High -106 [facility] Comment on above: Result Comment: BONNIE GEMENT OF PATIENT CARE PER NURSING PROTOCOL Performed By: #### L 100.0100, L500.2500 #### [facility] [address] [place], [address] FINGERSTICK GLU 156 mg/dL High 74-106 [facility] Comment on above: Result Comment: BONNIE GEMENT OF PATIENT CARE PER NURSING PROTOCOL Performed By: #### L 500.2500, L100.0100 #### [facility] [address] [place], [address] Bedside Glucoseon 04-29-2025 FINGERSTICK GLU 140 mg/dL High 74-106 [facility] Comment on above: Result Comment: BONNIE GEMENT OF PATIENT CARE PER NURSING PROTOCOL Performed By: #### L 100.0100, L500.2500 #### [facility] [address] [place], [address] FINGERSTICK GLU 173 mg/dL High 74-106 [facility] Comment on above: Result Comment: BONNIE GEMENT OF PATIENT CARE PER NURSING PROTOCOL Performed By: #### L 100.0100, L500.2500 #### [facility] [address] [place], [address] Bedside Glucoseon 04-28-2025 FINGERSTICK GLU 92 mg/dL Normal 74-106 [facility] Comment on above: Result Comment: BONNIE GEMENT OF PATIENT CARE PER NURSING PROTOCOL Performed By: #### L 100.0100, L500.2500 #### [facility] [address] [place], [address] FINGERSTICK GLU 119 mg/dL High 74-106 [facility] Comment on above: Result Comment: BONNIE GEMENT OF PATIENT CARE PER NURSING PROTOCOL Performed By: #### L 500.2500, L100.0100 #### [facility] [address] [place], [address] Basic Metabolic Profile (BMP )on 04-27-2025 BUN/CRE 45.3 RATIO High 10-20 [facility] Comment on above: Performed By: #### L 500.2500, L100.0100 #### [facility] [address] [place], [address] Calcium [Mass/Vol] 9.4 mg/dL Normal 7.6-11.0 [facility] Comment on above: Performed By: #### L 500.2500, L100.0100 #### [facility] [address] [place], [address] Chloride [Moles/Vol] 99 mmol/L Normal 98-108 [facility] Comment on above: Performed By: #### L 500.2500, L100.0100 #### [facility] [address] [place], [address] CO2 [Moles/Vol] 30.5 mmol/L Normal 21.0-32.0 [facility] Comment on above: Performed By: #### L 500.2500, L100.0100 #### [facility] [address] [place], [address] Creatinine [Mass/Vol] 0.35 mg/dL Low 0.70-1.20 [facility] Comment on above: Performed By: #### L 500.2500, L100.0100 #### [facility] [address] [place], [address] ECRCL 137.21 ml/min Normal 50-250 [facility] Comment on above: Performed By: #### L 500.2500, L100.0100 #### [facility] [address] [place], [address] GAP 9 Normal 5-15 [facility] Comment on above: Performed By: #### L 500.2500, L100.0100 #### [facility] [address] [place], [address] GFR/1.73 sq M.predicted among non-blacks MDRD (S/P/Bld) [Vol rate/Area] 148 mL/min/{1.73_m2} Normal >60 [facility] Comment on above: Result Comment: mL/m in/1.73m2 CKD-EPI Creatinine Equation (2020) Performed By: #### L 500.2500, L100.0100 #### [facility] [address] [place], [address] Glucose [Mass/Vol] 141 mg/dL High 70-99 [facility] Comment on above: Performed By: #### L 500.2500, L100.0100 #### [facility] [address] [place], [address] Potassium [Moles/Vol] 4.0 mmol/L Normal 3.3-5.1 [facility] Comment on above: Performed By: #### L 500.2500, L100.0100 #### [facility] [address] [place], [address] Sodium [Moles/Vol] 139 mmol/L Normal 133-145 [facility] Comment on above: Performed By: #### L 500.2500, L100.0100 #### [facility] [address] [place], [address] Urea nitrogen [Mass/Vol] 16 mg/dL Normal 4-19 [facility] Comment on above: Performed By: #### L 500.2500, L100.0100 #### [facility] [address] [place], [address] Bedside Glucoseon 04-27-2025 FINGERSTICK GLU 107 mg/dL High 74-106 [facility] Comment on above: Result Comment: BNONIE GEMENT OF PATIENT CARE PER NURSING PROTOCOL Performed By: #### L 100.0100, L500.2500 #### [facility] [address] [place], [address] FINGERSTICK GLU 128 mg/dL High 74-106 [facility] Comment on above: Result Comment: BONNIE GEMENT OF PATIENT CARE PER NURSING PROTOCOL Performed By: #### L 500.2500, L100.0100 #### [facility] [address] [place], [address] CBC W/Diff, Automatedon 11-0 -2024 Absolute Lymph 1.48 X10 3/uL Normal 0.83-4.51 [facility] Comment on above: Performed By: #### L 500.2500, L100.0100 #### [facility] [address] [place], [address] Absolute Neut 2.3 X10 3/uL Normal 2.0-7.7 [facility] Comment on above: Performed By: #### L 500.2500, L100.0100 #### [facility] [address] [place], [address] Basophils/100 WBC (Bld) 0.9 % Normal 0-1 [facility] Comment on above: Performed By: #### L 500.2500, L100.0100 #### [facility] [address] [place], [address] Eosinophils/100 WBC (Bld) 2.2 % Normal 0-5 [facility] Comment on above: Performed By: #### L 500.2500, L100.0100 #### [facility] [address] [place], [address] Erythrocyte distribution width (RBC) [Ratio] 12.8 % Normal 11.6-14.6 [facility] Comment on above: Performed By: #### L 500.2500, L100.0100 #### [facility] [address] [place], [address] Hematocrit (Bld) [Volume fraction] 36.9 % Low 37-47 [facility] Comment on above: Performed By: #### L 500.2500, L100.0100 #### [facility] [address] [place], [address] Hemoglobin (Bld) [Mass/Vol] 12.0 g/dL Normal 12.0-15.0 [facility] Comment on above: Performed By: #### L 500.2500, L100.0100 #### [facility] [address] [place], [address] IG% 1.600 High 0.0-0.9 [facility] Comment on above: Result Comment: IG% - Immature Granulocytes (promyelocytes, myelocytes and metamyelocytes) > 1% indicates that a LEFT SHIFT is Present. Performed By: #### L 500.2500, L100.0100 #### [facility] [address] [place], [address] Lymphocytes/100 WBC (Bld) 33.2 % Normal 19-41 [facility] Comment on above: Performed By: #### L 500.2500, L100.0100 #### [facility] [address] [place], [address] MCH (RBC) [Entitic mass] 28.7 pg Normal 27.0-32.0 [facility] Comment on above: Performed By: #### L 500.2500, L100.0100 #### [facility] [address] [place], [address] MCHC (RBC) [Mass/Vol] 32.5 g/dL Normal 32-36 [facility] Comment on above: Performed By: #### L 500.2500, L100.0100 #### [facility] [address] [place], [address] MCV (RBC) [Entitic vol] 88.3 fL Normal 81-99 [facility] Comment on above: Performed By: #### L 500.2500, L100.0100 #### [facility] [address] [place], [address] Monocytes/100 WBC (Bld) 9.9 % Normal 0-10 [facility] Comment on above: Performed By: #### L 500.2500, L100.0100 #### [facility] [address] [place], [address] Neutrophils/100 WBC (Bld) 52.2 % Normal 47-70 [facility] Comment on above: Performed By: #### L 500.2500, L100.0100 #### [facility] [address] [place], [address] Nucleated RBC (Bld) [#/Vol] 0 10*3/uL Normal 0-5 [facility] Comment on above: Performed By: #### L 500.2500, L100.0100 #### [facility] [address] [place], [address] Platelet mean volume (Bld) [Entitic vol] 10.7 fL Normal 6.2-12.0 [facility] Comment on above: Performed By: #### L 500.2500, L100.0100 #### [facility] [address] [place], [address] Platelets (Bld) [#/Vol] 249 10*3/uL Normal 150-450 [facility] Comment on above: Performed By: #### L 500.2500, L100.0100 #### [facility] [address] [place], [address] RBC (Bld) [#/Vol] 4.18 10*6/uL Low 4.2-5.4 [facility] Comment on above: Performed By: #### L 500.2500, L100.0100 #### [facility] [address] [place], [address] RDW SD 41.7 fl Normal 35.1-43.9 [facility] Comment on above: Performed By: #### L 500.2500, L100.0100 #### [facility] [address] [place], [address] WBC (Bld) [#/Vol] 4.5 10*3/uL Normal 4.4-11.0 [facility] Comment on above: Performed By: #### L 500.2500, L100.0100 #### [facility] [address] [place], [address] Basic Metabolic Profile (BMP )on 04-26-2025 BUN Normal 4-19 [facility] Comment on above: Result Comment: Canc elled via OM: Order cancelled - Patient discharged Performed By: #### L 500.2500, L100.0100 #### [facility] [address] [place], [address] BUN/CRE Normal 10-20 [facility] Comment on above: Result Comment: Canc elled via OM: Order cancelled - Patient discharged Performed By: #### L 500.2500, L100.0100 #### [facility] [address] [place], [address] Calcium Normal 7.6-11.0 [facility] Comment on above: Result Comment: Canc elled via OM: Order cancelled - Patient discharged Performed By: #### L 500.2500, L100.0100 #### [facility] [address] [place], [address] CL Normal 98-108 [facility] Comment on above: Result Comment: Canc elled via OM: Order cancelled - Patient discharged Performed By: #### L 500.2500, L100.0100 #### [facility] [address] [place], [address] CO2 Normal 21.0-32.0 [facility] Comment on above: Result Comment: Canc elled via OM: Order cancelled - Patient discharged Performed By: #### L 500.2500, L100.0100 #### [facility] [address] [place], [address] CREAT,SERUM Normal 0.70-1.20 [facility] Comment on above: Result Comment: Canc elled via OM: Order cancelled - Patient discharged Performed By: #### L 500.2500, L100.0100 #### [facility] [address] [place], [address] eGFR Normal >60 [facility] Comment on above: Result Comment: Canc elled via OM: Order cancelled - Patient discharged Performed By: #### L 500.2500, L100.0100 #### [facility] [address] [place], [address] GAP Normal 5-15 [facility] Comment on above: Result Comment: Canc elled via OM: Order cancelled - Patient discharged Performed By: #### L 500.2500, L100.0100 #### [facility] [address] [place], [address] GLU Normal 70-99 [facility] Comment on above: Result Comment: Canc elled via OM: Order cancelled - Patient discharged Performed By: #### L 500.2500, L100.0100 #### [facility] [address] [place], [address] Potassium Normal 3.3-5.1 [facility] Comment on above: Result Comment: Canc elled via OM: Order cancelled - Patient discharged Performed By: #### L 500.2500, L100.0100 #### [facility] [address] [place], [address] Basic Metabolic Profile (BMP) Normal 133-145 [facility] Comment on above: Result Comment: Canc elled via OM: Order cancelled - Patient discharged Performed By: #### L 500.2500, L100.0100 #### [facility] [address] [place], [address] Bedside Glucoseon 04-26-2025 FINGERSTICK GLU 103 mg/dL Normal 74-106 [facility] Comment on above: Result Comment: BONNIE AL OF PATIENT CARE PER NURSING PROTOCOL Performed By: #### L 100.0100, L500.2500 #### [facility] [address] [place], [address] CBC W/Diff, Automatedon 11-0 Absolute Neut Normal 2.0-7.7 [facility] Comment on above: Result Comment: Canc elled via OM: Order cancelled - Patient discharged Performed By: #### L 500.2500, L100.0100 #### [facility] [address] [place], [address] HCT Normal 37-47 [facility] Comment on above: Result Comment: Canc elled via OM: Order cancelled - Patient discharged Performed By: #### L 500.2500, L100.0100 #### [facility] [address] [place], [address] HGB Normal 12.0-15.0 [facility] Comment on above: Result Comment: Canc elled via OM: Order cancelled - Patient discharged Performed By: #### L 500.2500, L100.0100 #### [facility] [address] [place], [address] MCH Normal 27.0-32.0 [facility] Comment on above: Result Comment: Canc elled via OM: Order cancelled - Patient discharged Performed By: #### L 500.2500, L100.0100 #### [facility] [address] [place], [address] MCHC Normal 32-36 [facility] Comment on above: Result Comment: Canc elled via OM: Order cancelled - Patient discharged Performed By: #### L 500.2500, L100.0100 #### [facility] [address] [place], [address] MCV Normal 81-99 [facility] Comment on above: Result Comment: Canc elled via OM: Order cancelled - Patient discharged Performed By: #### L 500.2500, L100.0100 #### [facility] [address] [place], [address] NEUT% Normal 47-70 [facility] Comment on above: Result Comment: Canc elled via OM: Order cancelled - Patient discharged Performed By: #### L 500.2500, L100.0100 #### [facility] [address] [place], [address] PLT Normal 150-450 [facility] Comment on above: Result Comment: Canc elled via OM: Order cancelled - Patient discharged Performed By: #### L 500.2500, L100.0100 #### [facility] [address] [place], [address] RBC Normal 4.2-5.4 [facility] Comment on above: Result Comment: Canc elled via OM: Order cancelled - Patient discharged Performed By: #### L 500.2500, L100.0100 #### [facility] [address] [place], [address] RDW CV Normal 11.6-14.6 [facility] Comment on above: Result Comment: Canc elled via OM: Order cancelled - Patient discharged Performed By: #### L 500.2500, L100.0100 #### [facility] [address] [place], [address] RDW SD Normal 35.1-43.9 [facility] Comment on above: Result Comment: Canc elled via OM: Order cancelled - Patient discharged Performed By: #### L 500.2500, L100.0100 #### [facility] [address] [place], [address] WBC Normal 4.4-11.0 [facility] Comment on above: Result Comment: Canc elled via OM: Order cancelled - Patient discharged Performed By: #### L 500.2500, L100.0100 #### [facility] [address] [place], [address] CT HEAD WO IV CONTRASTon CT HEAD WO IV CONTRAST Normal [facility] CT Head WO contraston 2024 1. Postsurgical khoury ges of suboccipital craniectomy and C1 laminectomy with mesh placement with stable adjacent subdural collection overlying the cerebellar hemispheres. No new areas of intracranial hemorrhage. 2. 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 Please note that full evaluation of this collection is limited on this exam due to patient positioning. 3. Mildly improved edema within the posterior fossa with decreased involvement of the irene along side persistent involvement of the bilateral cerebellar hemispheres and effacement of the 4th ventricle. I personally reviewed the images/study and I agree with the findings as stated by Brian Gamez MD (radiology orderly). MACRO: None Signed by: Leon Bai 04/26/2025 12:14 PM Dictation workstation: [id number] [facility] Interpreted By: Leon Xiao and Anderson Wyatt STUDY: CT HEAD WO IV CONTRAST; 04/26/2025 11:34 am INDICATION: Signs/Symptoms:stability. 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 Additional embolization of the left PICA and right SCA on 03/05. Suboccipital craniotomy for AVM resection on 03/15 with no residual AVM. Right parietal approach stent placed on 03/22. COMPARISON: MR BRAIN WO IV CONTRAST 04/25/2025, CT HEAD WO IV CONTRAST 04/24/2025, CT HEAD WO IV CONTRAST 04/23/2025, CT HEAD WO IV CONTRAST 04/22/2025 ACCESSION NUMBER(S): [id number] ORDERING CLINICIAN: ALFRED SELF TECHNIQUE: Noncontrast axial CT scan of head was performed. Angled reformats in brain and bone windows were generated. Coronal and sagittal reformats were provided for review. FINDINGS: A right ventriculostomy drainage catheter is again noted coursing through a right parietal georgina hole with tip terminating in the right frontal horn. Stable size of the lateral ventricles and 3rd ventricle, with the 3rd ventricle measuring approximately 0.3 cm in thickness (series 204, image 36). Postsurgical changes of suboccipital craniectomy and C1 laminectomy with mesh placement. Stable subdural collection overlying the cerebellar hemisphere measuring up to 0.7 cm (series 204, image 29) with no evidence of new intracranial hemorrhage. 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 Extensive edema is again noted within the bilateral cerebellar hemispheres which appears mildly improved compared to prior exam with apparent decreased involvement of the irene. Similar mass effect with effacement of the 4th ventricle. The basal cisterns are patent. Embolization material posterior fossa again noted. Nunez-white differentiation is intact with no evidence of acute infarct. Visualized paranasal sinuses are clear. The middle ears mastoid air cells are clear. Right frontal georgina hole. No acute calvarial fracture or destructive bone lesions. [facility] Leon Bai MD - 04/26/2025 Interpreted By: Leon Bai and Anderson Wyatt STUDY: CT HEAD WO IV CONTRAST; 04/26/2025 11:34 am INDICATION: Signs/Symptoms:stability. 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 Additional embolization of the left PICA and right SCA on 03/05. Suboccipital craniotomy for AVM resection on 03/15 with no residual AVM. Right parietal approach stent placed on 03/22. COMPARISON: MR BRAIN WO IV CONTRAST 04/25/2025, CT HEAD WO IV CONTRAST 04/24/2025, CT HEAD WO IV CONTRAST 04/23/2025, CT HEAD WO IV CONTRAST 04/22/2025 ACCESSION NUMBER(S): [id number] ORDERING CLINICIAN: ALFRED SELF TECHNIQUE: Noncontrast axial CT scan of head was performed. Angled reformats in brain and bone windows were generated. Coronal and sagittal reformats were provided for review. FINDINGS: A right ventriculostomy drainage catheter is again noted coursing through a right parietal georgina hole with tip terminating in the right frontal horn. Stable size of the lateral ventricles and 3rd ventricle, with the 3rd ventricle measuring approximately 0.3 cm in thickness (series 204, image 36). Postsurgical changes of suboccipital craniectomy and C1 laminectomy with mesh placement. Stable subdural collection overlying the cerebellar hemisphere measuring up to 0.7 cm (series 204, image 29) with no evidence of new intracranial hemorrhage. 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 Extensive edema is again noted within the bilateral cerebellar hemispheres which appears mildly improved compared to prior exam with apparent decreased involvement of the irene. Similar mass effect with effacement of the 4th ventricle. The basal cisterns are patent. Embolization material posterior fossa again noted. Nunez-white differentiation is intact with no evidence of acute infarct. Visualized paranasal sinuses are clear. The middle ears mastoid air cells are clear. Right frontal georgina hole. No acute calvarial fracture or destructive bone lesions. IMPRESSION: 1. Postsurgical changes of suboccipital craniectomy and C1 laminectomy with mesh placement with stable adjacent subdural collection overlying the cerebellar hemispheres. No new areas of intracranial hemorrhage. 2. 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 Please note that full evaluation of this collection is limited on this exam due to patient positioning. 3. Mildly improved edema within the posterior fossa with decreased involvement of the irene along side persistent involvement of the bilateral cerebellar hemispheres and effacement of the 4th ventricle. I personally reviewed the images/study and I agree with the findings as stated by Brian Gamez MD (radiology orderly). MACRO: None Signed by: Leon Bai 04/26/2025 12:14 PM Dictation workstation: [id number] [facility] Work Phone: Radiology Study observation (narrative) [facility] Work Phone: CT Head WO contrastOrdered B y: Leon Bai on 04-26-2025 [facility] Work Phone: Glucose Test strip manual (B ld) [Mass/Vol]on 04-26-2025 Glucose [Mass/Vol] 161 mg/dL High 74 - 99 mg/dL [facility] Interpretation and review of laboratory results Abnormal [facility] Glucose [Mass/Vol] 161 mg/dL High 74-99 [facility] Comment on above: Performed By: #### 2 341-6 ####CALE Roth ([id number])[facility] ([facility])[address] [place] [address] Glucose [Mass/Vol] 153 mg/dL High 74 - 99 mg/dL [facility] Interpretation and review of laboratory results Abnormal [facility] Glucose [Mass/Vol] 153 mg/dL High 74-99 [facility] Comment on above: Performed By: #### 2 341-6 ####CALE Roth ([id number])[facility] ([facility])[address] [place] [address] CBC panel Auto (Bld)on 04-25 Erythrocyte distribution width (RBC) [Ratio] 12.9 % 11.5 - 14.5 % [facility] Hematocrit (Bld) [Volume fraction] 39.7 % 36.0 - 46.0 % [facility] Hemoglobin (Bld) [Mass/Vol] 12.7 g/dL 12.0 - 16.0 g/dL [facility] Interpretation and review of laboratory results Normal [facility] MCH (RBC) [Entitic mass] 28.9 pg 26.0 - 34.0 pg [facility] MCHC (RBC) [Mass/Vol] 32.0 g/dL 32.0 - 36.0 g/dL [facility] MCV (RBC) [Entitic vol] 90 fL 80 - 100 fL [facility] Nucleated RBC/100 WBC (Bld) [Ratio] 0.0 % [facility] Platelets (Bld) [#/Vol] 247 10*3/uL [facility] RBC (Bld) [#/Vol] 4.39 10*6/uL [facility] WBC (Bld) [#/Vol] 5.1 10*3/uL [facility] Erythrocyte distribution width (RBC) [Ratio] 12.9 % Normal 11.5-14.5 [facility] Comment on above: Performed By: #### 5 8410-2 ####CALE Roth ([id number])[facility] ([facility])[address] [place] [address] Hematocrit (Bld) [Volume fraction] 39.7 % Normal 36.0-46.0 [facility] Comment on above: Performed By: #### 5 8410-2 ####CALE Roth ([id number])[facility] ([facility])[address] [place] [address] Hemoglobin (Bld) [Mass/Vol] 12.7 g/dL Normal 12.0-16.0 [facility] Comment on above: Performed By: #### 5 8410-2 ####CALE Roth ([id number])[facility] ([facility])[address] [place] [address] MCH (RBC) [Entitic mass] 28.9 pg Normal 26.0-34.0 [facility] Comment on above: Performed By: #### 5 8410-2 ####CALE Roth ([id number])[facility] ([facility])[id number] [place] [phone] MCHC (RBC) [Mass/Vol] 32.0 g/dL Normal 32.0-36.0 [facility] Comment on above: Performed By: #### 5 8410-2 ####CALE Roth ([id number])[facility] ([facility])[id number] [place] [address] MCV (RBC) [Entitic vol] 90 fL Normal 80-100 [facility] Comment on above: Performed By: #### 5 8410-2 ####CALE Roth ([id number])[facility] ([facility])[address] [place] [address] Nucleated RBC/100 WBC (Bld) [Ratio] 0.0 /100 WBCs Normal 0.0-0.0 [facility] Comment on above: Performed By: #### 5 8410-2 ####CALE Roth ([id number])[facility] ([facility])[address] [place] [address] Platelets (Bld) [#/Vol] 247 x10*3/uL Normal 150-450 [facility] Comment on above: Performed By: #### 5 8410-2 ####CALE CAI L ([id number])[facility] ([facility])[address] [place] [address] RBC (Bld) [#/Vol] 4.39 x10*6/uL Normal 4.00-5.20 [facility] Comment on above: Performed By: #### 5 8410-2 ####CALE Roth ([id number])[facility] ([facility])[address] [place] [address] WBC (Bld) [#/Vol] 5.1 x10*3/uL Normal 4.4-11.3 [facility] Comment on above: Performed By: #### 5 8410-2 ####CALE Roth ([id number])[facility] ([facility])[address] [place] [address] Glucose Test strip manual (B ld) [Mass/Vol]on 04-25-2025 Glucose [Mass/Vol] 204 mg/dL High 74 - 99 mg/dL [facility] Interpretation and review of laboratory results Abnormal [facility] Glucose [Mass/Vol] 204 mg/dL High 74-99 [facility] Comment on above: Performed By: #### 2 341-6 ####CALE CAI L ([id number])[facility] ([facility])[address] [place] [address] Glucose [Mass/Vol] 118 mg/dL High 74 - 99 mg/dL [facility] Interpretation and review of laboratory results Abnormal [facility] Glucose [Mass/Vol] 118 mg/dL High 74-99 [facility] Comment on above: Performed By: #### 2 341-6 ####CALE Roth ([id number])[facility] ([facility])[id number] [place] [address] Glucose [Mass/Vol] 134 mg/dL High 74 - 99 mg/dL [facility] [facility] [place] Interpretation and review of laboratory results Abnormal [facility] Glucose [Mass/Vol] 134 mg/dL High 74-99 [facility] Comment on above: Performed By: #### 2 341-6 ####CALE Roth ([id number])[facility] ([facility])[id number] [place] [address] Glucose [Mass/Vol] 177 mg/dL High 74 - 99 mg/dL [facility] [place] Interpretation and review of laboratory results Abnormal [facility] Glucose [Mass/Vol] 177 mg/dL High 74-99 [facility] Comment on above: Performed By: #### 2 341-6 ####CALE Roth ([id number])[facility] ([facility])[id number] [place] [address] 17709 Glucose [Mass/Vol] 173 mg/dL High 74 - 99 mg/dL [facility] [place] Interpretation and review of laboratory results Abnormal [facility] Glucose [Mass/Vol] 173 mg/dL High 74-99 [facility] Comment on above: Performed By: #### 2 341-6 ####CALE Roth ([id number])[facility] ([facility])[address] [place] [address] 07991 MR BRAIN WO IV CONTRASTon MR BRAIN WO IV CONTRAST Normal [facility] MR Brain WO contraston 04-25 1. Negative brain MR I examination for acute change. 2. Again noted is edema within the cerebellar hemispheres. MACRO: None Signed by: Efrain Jackson 04/25/2025 1:28 PM Dictation workstation: [id number] [facility] Interpreted By: Efrain Reed, STUDY: MR BRAIN WO IV CONTRAST; 04/25/2025 11:23 am INDICATION: Signs/Symptoms:r/o new stroke. Per the medical record, patient was diagnosed with an AVM of the bilateral PICA, AICA, and right SCA feeders draining into the torcular COMPARISON: Head CT of April 24, 2025 ACCESSION NUMBER(S): [id number] ORDERING CLINICIAN: ALFRED SELF TECHNIQUE: Multiplaner, multisequence MRI were obtained without contrast FINDINGS: The examination is limited by motion artifact and susceptibility artifact. Parenchyma: There is no restricted diffusion to suggest acute ischemia. Again noted is edema within the cerebellar hemispheres. Ventricles: There is no hydrocephalus. A DOCUMENT CLERK shunt is better visualized on prior CT study. Extra-axial spaces: No abnormal extra-axial fluid collection. Basal cisterns are patent. Vessels: T2 flow voids are maintained. Orbits: The orbits are poorly visualized. Paranasal sinuses and mastoid air cells: No fluid levels are present. Skull: There is normal T1 marrow signal without evidence of aggressive lesion. Soft tissues: Unremarkable MMODAL Efrain Jackson MD - 04/25/2025 Interpreted By: Efrain Jackson, STUDY: MR BRAIN WO IV CONTRAST; 04/25/2025 11:23 am INDICATION: Signs/Symptoms:r/o new stroke. Per the medical record, patient was diagnosed with an AVM of the bilateral PICA, AICA, and right SCA feeders draining into the torcular COMPARISON: Head CT of April 24, 2025 ACCESSION NUMBER(S): [id number] ORDERING CLINICIAN: ALFRED SELF TECHNIQUE: Multiplaner, multisequence MRI were obtained without contrast FINDINGS: The examination is limited by motion artifact and susceptibility artifact. Parenchyma: There is no restricted diffusion to suggest acute ischemia. Again noted is edema within the cerebellar hemispheres. Ventricles: There is no hydrocephalus. A DOCUMENT CLERK shunt is better visualized on prior CT study. Extra-axial spaces: No abnormal extra-axial fluid collection. Basal cisterns are patent. Vessels: T2 flow voids are maintained. Orbits: The orbits are poorly visualized. Paranasal sinuses and mastoid air cells: No fluid levels are present. Skull: There is normal T1 marrow signal without evidence of aggressive lesion. Soft tissues: Unremarkable IMPRESSION: 1. Negative brain MRI examination for acute change. 2. Again noted is edema within the cerebellar hemispheres. MACRO: None Signed by: Efrain Jackson 04/25/2025 1:28 PM Dictation workstation: [id number] [facility] [place] Work Phone: Radiology Study observation (narrative) [facility] [place] Work Phone: MR Brain WO contrastOrdered By: Efrain Jackson on 04-25-2025 [facility] [place] Work Phone: Renal function 2000 panelon 04-25-2025 Albumin BCP dye [Mass/Vol] 3.7 g/dL 3.4 - 5.0 g/dL [facility] [place] Anion gap [Moles/Vol] 13 mmol/L 10 - 20 mmol/L [facility] [place] Calcium [Mass/Vol] 9.5 mg/dL 8.6 - 10. 6 mg/dL [facility] [place] Chloride [Moles/Vol] 97 mmol/L Low 98 - 10 7 mmol/L [facility] [place] CO2 [Moles/Vol] 32 mmol/L 21 - 32 mmol/L [facility] [place] Comment on above: Bicarbonate results may be falsely elevated when Lactate Dehydrogenase (LDH) concentrations exceed 2,000 U/L due to a temporary reagent manufacturing issue. If significantly elevated LDH levels are suspected, interpret bicarbonate results with caution, correlate with the patient s clinical status, and consider confirming CO2 values using a blood gas analyzer. Creatinine [Mass/Vol] 0.36 mg/dL Low 0.50 - 1.05 mg/dL [facility] [place] eGFR - PINF [facility] [place] Comment on above: Calculations of marisol mated GFR are performed using the 2020 CKD-EPI Study Refit equation without the race variable for the IDMS-Traceable creatinine methods. https://jasn.asnjournals.org/content/early//ASN.9357907 988 Glucose [Mass/Vol] 119 mg/dL High 74 - 99 mg/dL [facility] [place] Interpretation and review of laboratory results Abnormal [facility] [place] Phosphate [Mass/Vol] 3.8 mg/dL 2.5 - 4 .9 mg/dL [facility] [place] Potassium [Moles/Vol] 4.6 mmol/L 3.5 - 5.3 mmol/L [facility] [place] Sodium [Moles/Vol] 137 mmol/L 136 - 145 mmol/L [facility] [place] Urea nitrogen [Mass/Vol] 12 mg/dL 6 - 23 mg/dL [facility] Albumin BCP dye [Mass/Vol] 3.7 g/dL Normal 3.4-5.0 [facility] Comment on above: Performed By: #### 2 4362-6 ####CALE Roth ([id number])[facility] ([facility])[address] [place] [address] Anion gap [Moles/Vol] 13 mmol/L Normal 10-20 [facility] Comment on above: Performed By: #### 2 4362-6 ####CALE Roth ([id number])[facility] ([facility])[address] [place] [address] Calcium [Mass/Vol] 9.5 mg/dL Normal 8.6-10.6 [facility] Comment on above: Performed By: #### 2 4362-6 ####CALE Roth ([id number])[facility] ([facility])[address] [place] [address] Chloride [Moles/Vol] 97 mmol/L Low 98-107 [facility] Comment on above: Performed By: #### 2 4362-6 ####CALE Roth ([id number])[facility] ([facility])[address] [place] [address] CO2 [Moles/Vol] 32 mmol/L Normal 21-32 [facility] Comment on above: Result Comment: Bica rbonate results may be falsely elevated when Lactate Dehydrogenase (LDH) concentrations exceed 2,000 U/L due to a temporary reagent manufacturing issue. If significantly elevated LDH levels are suspected, interpret bicarbonate results with caution, correlate with the patient's clinical status, and consider confirming CO2 values using a blood gas analyzer. Performed By: #### 2 4362-6 ####CALE Roth ([id number])[facility] ([facility])[address] [place] [address] Creatinine [Mass/Vol] 0.36 mg/dL Low 0.50-1.05 [facility] Comment on above: Performed By: #### 2 4362-6 ####CALE Roth ([id number])[facility] ([facility])[address] [place] [address] Glomerular filtration rate >90 Normal >60 [facility] Comment on above: Result Comment: Calc ulations of estimated GFR are performed using the 2020 CKD-EPI Study Refit equation without the race variable for the IDMS-Traceable creatinine methods.https://jasn.asnjournals.org/content/early/ASN .7380606376 Performed By: #### 2 4362-6 ####CALE Roth ([id number])[facility] ([facility])[id number] [place] [address] Glucose [Mass/Vol] 119 mg/dL High 74-99 [facility] Comment on above: Performed By: #### 2 4362-6 ####CALE Roth ([id number])[facility] ([facility])[address] [place] [address] Phosphate [Mass/Vol] 3.8 mg/dL Normal 2.5-4.9 [facility] Comment on above: Performed By: #### 2 4362-6 ####CALE Roth ([id number])[facility] ([facility])[address] [place] [address] Potassium [Moles/Vol] 4.6 mmol/L Normal 3.5-5.3 [facility] Comment on above: Performed By: #### 2 4362-6 ####CALE Roth ([id number])[facility] ([facility])[address] [place] [address] Sodium [Moles/Vol] 137 mmol/L Normal 136-145 [facility] Comment on above: Performed By: #### 2 4362-6 ####CALE Roth ([id number])[facility] ([facility])[address] [place] [address] Urea nitrogen [Mass/Vol] 12 mg/dL Normal 6-23 [facility] Comment on above: Performed By: #### 2 4362-6 ####CALE Roth ([id number])[facility] ([facility])[address] [place] [address] Urine Cultureon 04-25-2025 [facility] If Gram Positive [place] susceptibility studies are desired, contact the Microbiology Laboratory within 48 hours [phone]. Urine Culture Urine Culture Urine Culture Lactobacillus species Hermosa Count <1000 Normal [facility] Comment on above: Performed By: #### L 500.2500, L100.0100 #### [facility] [address] [place], [address] CT HEAD WO IV CONTRASTon CT HEAD WO IV CONTRAST Normal [facility] CT Head WO contraston 2024 1. Slight interval d ecrease in size of the shunted ventricles compared to prior. 2. Slight interval decrease in the fluid collection overlying the cranioplasty mesh. Otherwise stable postoperative changes of suboccipital craniectomy with mesh cranioplasty, irregularly marginated confluent low-density involving the cerebellum and possibly of the brainstem. MACRO: None Signed by: Alex Obregon 04/24/2025 8:14 AM Dictation workstation: [id number] [facility] Interpreted By: Alex Glez, STUDY: CT HEAD WO IV CONTRAST; 04/24/2025 5:36 am INDICATION: Signs/Symptoms: Vent Size sp shunt dial. COMPARISON: None. ACCESSION NUMBER(S): [id number] ORDERING CLINICIAN: ALFRED SELF TECHNIQUE: Noncontrast axial CT scan of head was performed. Angled reformats in brain and bone windows were generated. The images were reviewed in bone, brain, blood and soft tissue windows. FINDINGS: Stable position of right parieto-occipital approach ventricular shunt catheter. Ventricles are slightly decreased compared to prior. Transverse dimension anterior 3rd ventricle currently 3.0 mm previously 4.4 mm. No definite acute intracranial hemorrhage. Vague densities along the bilateral frontal convexities [id number]-right favored to represent beam hardening artifact. No solid-appearing intracranial mass identified. Slight interval decrease in the fluid collection overlying the cranioplasty mesh. Otherwise stable postoperative changes of suboccipital craniectomy with mesh cranioplasty, irregularly marginated confluent low-density involving the cerebellum and possibly of the brainstem. Intracranial embolic material is present. [facility] Alex Obregon M D - 04/24/2025 Interpreted By: Alex Obregon, STUDY: CT HEAD WO IV CONTRAST; 04/24/2025 5:36 am INDICATION: Signs/Symptoms: Vent Size sp shunt dial. COMPARISON: None. ACCESSION NUMBER(S): [id number] ORDERING CLINICIAN: ALFRED SELF TECHNIQUE: Noncontrast axial CT scan of head was performed. Angled reformats in brain and bone windows were generated. The images were reviewed in bone, brain, blood and soft tissue windows. FINDINGS: Stable position of right parieto-occipital approach ventricular shunt catheter. Ventricles are slightly decreased compared to prior. Transverse dimension anterior 3rd ventricle currently 3.0 mm previously 4.4 mm. No definite acute intracranial hemorrhage. Vague densities along the bilateral frontal convexities vuan-[id number]-dlba-right favored to represent beam hardening artifact. No solid-appearing intracranial mass identified. Slight interval decrease in the fluid collection overlying the cranioplasty mesh. Otherwise stable postoperative changes of suboccipital craniectomy with mesh cranioplasty, irregularly marginated confluent low-density involving the cerebellum and possibly of the brainstem. Intracranial embolic material is present. IMPRESSION: 1. Slight interval decrease in size of the shunted ventricles compared to prior. 2. Slight interval decrease in the fluid collection overlying the cranioplasty mesh. Otherwise stable postoperative changes of suboccipital craniectomy with mesh cranioplasty, irregularly marginated confluent low-density involving the cerebellum and possibly of the brainstem. MACRO: None Signed by: Alex Obregon 04/24/2025 8:14 AM Dictation workstation: [id number] [facility] [place] Work Phone: Radiology Study observation (narrative) [facility] [place] Work Phone: CT Head WO contrastOrdered B y: Alex Obregon on 04-24-2025 [facility] [place] Work Phone: Glucose Test strip manual (B ld) [Mass/Vol]on 04-24-2025 Glucose [Mass/Vol] 147 mg/dL High 74 - 99 mg/dL [facility] [place] Interpretation and review of laboratory results Abnormal [facility] Glucose [Mass/Vol] 147 mg/dL High 74-99 [facility] Comment on above: Performed By: #### 2 341-6 ####CALE Roth ([id number])[facility] ([facility])[address] [place] [address] Glucose [Mass/Vol] 143 mg/dL High 74 - 99 mg/dL [facility] [place] Interpretation and review of laboratory results Abnormal [facility] Glucose [Mass/Vol] 143 mg/dL High 74-99 [facility] Comment on above: Performed By: #### 2 341-6 ####CALE Roth ([id number])[facility] ([facility])[address] [place] [address] Glucose [Mass/Vol] 138 mg/dL High 74 - 99 mg/dL [facility] [place] Interpretation and review of laboratory results Abnormal [facility] Glucose [Mass/Vol] 138 mg/dL High 74-99 [facility] Comment on above: Performed By: #### 2 341-6 ####CALE Roth ([id number])[facility] ([facility])[address] [place] [address] 57772 MR Brain WO contraston 04-24 Only snuff blender images. M R imaging of the brain was not completed due to unstable condition of the patient. Nondiagnostic study. I personally reviewed the images/study and I agree with the findings as stated by Sherrill Jackson MD. This study was interpreted at [facility], [place], [place]. MACRO: None Signed by: Mohan Rincon 04/24/2025 8:34 AM Dictation workstation: [id number] [facility] Interpreted By: Mohan Castillo and Kaur Arashdeep STUDY: MR BRAIN WO IV CONTRAST; 04/23/2025 8:11 pm INDICATION: Signs/Symptoms:altered mental status. COMPARISON: None. ACCESSION NUMBER(S): [id number] ORDERING CLINICIAN: ALFRED SELF TECHNIQUE: Only snuff blender images were obtained. MR imaging of the brain was not completed due to unstable condition of the patient. FINDINGS: Only snuff blender images. MR imaging of the brain was not completed due to unstable condition of the patient Mohan Valdes MD - 04/24/2025 Interpreted By: Mohan Rincon and Kaur Arashdeep STUDY: MR BRAIN WO IV CONTRAST; 04/23/2025 8:11 pm INDICATION: Signs/Symptoms:altered mental status. COMPARISON: None. ACCESSION NUMBER(S): [id number] ORDERING CLINICIAN: ALFRED SELF TECHNIQUE: Only snuff blender images were obtained. MR imaging of the brain was not completed due to unstable condition of the patient. FINDINGS: Only snuff blender images. MR imaging of the brain was not completed due to unstable condition of the patient IMPRESSION: Only snuff blender images. MR imaging of the brain was not completed due to unstable condition of the patient. Nondiagnostic study. I personally reviewed the images/study and I agree with the findings as stated by Sherrill Jackson MD. This study was interpreted at [facility], [place], [place]. MACRO: None Signed by: Mohan Rincon 04/24/2025 8:34 AM Dictation workstation: [id number] [facility] [place] Work Phone: MR Brain WO contrastOrdered By: Mohan Rincon on 04-24-2025 [facility] [place] Work Phone: CT HEAD WO IV CONTRASTon CT HEAD WO IV CONTRAST Normal [facility] CT Head WO contraston 2024 1. Postsurgical khoury ges of right parietal georgina hole transmitting right ventriculostomy catheter terminating in the right frontal horn adjacent to the right foramen Monro, unchanged from prior exam. 2. Stable edema and encephalomalacia centered around the cerebellar vermis extending into the bilateral anterior and posterior cerebellar hemispheres and possibly involving the irene. A total of 6 clips are seen imbedded throughout the posterior fossa. Evaluation for large territorial infarct within this region is limited, otherwise no evidence of loss of nunez-white differentiation throughout the remaining brain parenchyma. No acute intracranial hemorrhage. 3. Stable collection overlying the cerebellar hemisphere measuring up to 0.7 cm with a portion extending external to the mesh cranioplasty measuring 8.8 x 5.9 x 2.3 cm favoring a pseudomeningocele. I personally reviewed the images/study and I agree with the findings as stated by Dr. Guillermo Khoury. This study was interpreted at [place], [place]. MACRO: None Signed by: Sugey Machado 04/23/2025 12:21 PM Dictation workstation: [id number] [facility] Interpreted By: Sugey Murphy, Berta Li STUDY: CT HEAD WO IV CONTRAST; 04/23/2025 2:57 am INDICATION: Signs/Symptoms:Overdraining of DOCUMENT CLERK shunt. 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 Additional embolization of the left PICA and right SCA on 03/05. Underwent additional suboccipital craniotomy for AVM resection on 03/15 with no residual AVM. Placed right parietal approach shunt on 03/22. COMPARISON: CT HEAD WO IV CONTRAST 04/22/2025, CT HEAD WO IV CONTRAST 03/29/2025, CT HEAD WO IV CONTRAST 03/22/2025, MR BRAIN WO IV CONTRAST 03/18/2025 ACCESSION NUMBER(S): [id number] ORDERING CLINICIAN: GABE FLORES TECHNIQUE: Noncontrast axial CT scan of head was performed. Angled reformats in brain and bone windows were generated. The images were reviewed in bone, brain, blood and soft tissue windows. FINDINGS: Postsurgical changes of right parietal georgina hole transmitting right ventriculostomy drainage catheter with its tip terminating in the right frontal horn adjacent to the right foramen Monro, unchanged from prior exam. Additional postsurgical changes of suboccipital craniectomy and C1 laminectomy with overlying mesh placement. Prior right frontal georgina hole is present. No acute calvarial fracture. Minimal skin thickening is noted overlying the extracranial ventriculostomy catheter tract. Stable extensive edema is noted centered around the cerebellar vermis with extension into the bilateral anterior and posterior cerebellar hemispheres and probably involving the irene with surrounding encephalomalacia. A total of 6 clips are seen imbedded throughout the posterior fossa. The nunez-white differentiation is otherwise intact. No acute intraparenchymal hemorrhage. Stable subdural collection is seen overlying the cerebellar hemisphere measuring up to 0.7 cm, a portion extends external to the mesh cranioplasty in total measuring 8.8 x 5.9 x 2.3 cm favoring a pseudomeningocele. Unchanged effacement of the 4th ventricle. The ventricles, cerebral sulci and basal cisterns are stable from prior exam. Anatomic variant of cavum septum pellucidum. The orbits are within normal limits. The paranasal sinuses and mastoid air cells are well-aerated. MMODAL Sugey Machado MD - 04/23/2025 Interpreted By: Sugey Machado and Sheng Max STUDY: CT HEAD WO IV CONTRAST; 04/23/2025 2:57 am INDICATION: Signs/Symptoms:Overdraining of DOCUMENT CLERK shunt. 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 Additional embolization of the left PICA and right SCA on 03/05. Underwent additional suboccipital craniotomy for AVM resection on 03/15 with no residual AVM. Placed right parietal approach shunt on 03/22. COMPARISON: CT HEAD WO IV CONTRAST 04/22/2025, CT HEAD WO IV CONTRAST 03/29/2025, CT HEAD WO IV CONTRAST 03/22/2025, MR BRAIN WO IV CONTRAST 03/18/2025 ACCESSION NUMBER(S): [id number] ORDERING CLINICIAN: GABE FLORES TECHNIQUE: Noncontrast axial CT scan of head was performed. Angled reformats in brain and bone windows were generated. The images were reviewed in bone, brain, blood and soft tissue windows. FINDINGS: Postsurgical changes of right parietal georgina hole transmitting right ventriculostomy drainage catheter with its tip terminating in the right frontal horn adjacent to the right foramen Monro, unchanged from prior exam. Additional postsurgical changes of suboccipital craniectomy and C1 laminectomy with overlying mesh placement. Prior right frontal georgina hole is present. No acute calvarial fracture. Minimal skin thickening is noted overlying the extracranial ventriculostomy catheter tract. Stable extensive edema is noted centered around the cerebellar vermis with extension into the bilateral anterior and posterior cerebellar hemispheres and probably involving the irene with surrounding encephalomalacia. A total of 6 clips are seen imbedded throughout the posterior fossa. The nunez-white differentiation is otherwise intact. No acute intraparenchymal hemorrhage. Stable subdural collection is seen overlying the cerebellar hemisphere measuring up to 0.7 cm, a portion extends external to the mesh cranioplasty in total measuring 8.8 x 5.9 x 2.3 cm favoring a pseudomeningocele. Unchanged effacement of the 4th ventricle. The ventricles, cerebral sulci and basal cisterns are stable from prior exam. Anatomic variant of cavum septum pellucidum. The orbits are within normal limits. The paranasal sinuses and mastoid air cells are well-aerated. IMPRESSION: 1. Postsurgical changes of right parietal georgina hole transmitting right ventriculostomy catheter terminating in the right frontal horn adjacent to the right foramen Monro, unchanged from prior exam. 2. Stable edema and encephalomalacia centered around the cerebellar vermis extending into the bilateral anterior and posterior cerebellar hemispheres and possibly involving the irene. A total of 6 clips are seen imbedded throughout the posterior fossa. Evaluation for large territorial infarct within this region is limited, otherwise no evidence of loss of nunez-white differentiation throughout the remaining brain parenchyma. No acute intracranial hemorrhage. 3. Stable collection overlying the cerebellar hemisphere measuring up to 0.7 cm with a portion extending external to the mesh cranioplasty measuring 8.8 x 5.9 x 2.3 cm favoring a pseudomeningocele. I personally reviewed the images/study and I agree with the findings as stated by Dr. Guillermo Khoury. This study was interpreted at [facility], [place], [place]. MACRO: None Signed by: Sugey Machado 04/23/2025 12:21 PM Dictation workstation: [id number] [facility] Work Phone: Radiology Study observation (narrative) [facility] Work Phone: CT Head WO contrastOrdered B y: Sugey Machado on 04-23-2025 [facility] Work Phone: Glucose Test strip manual (B ld) [Mass/Vol]on 04-23-2025 Glucose [Mass/Vol] 132 mg/dL High 74 - 99 mg/dL [facility] Interpretation and review of laboratory results Abnormal [facility] Glucose [Mass/Vol] 132 mg/dL High 74-99 [facility] Comment on above: Performed By: #### 2 341-6 ####CALE Roth ([id number])[facility] ([facility])[address] [place] [address] Glucose [Mass/Vol] 156 mg/dL High 74 - 99 mg/dL [facility] Interpretation and review of laboratory results Abnormal [facility] Glucose [Mass/Vol] 156 mg/dL High 74-99 [facility] Comment on above: Performed By: #### 2 341-6 ####CALE Roth ([id number])[facility] ([facility])[address] [place] [address] 6[address] Glucose [Mass/Vol] 101 mg/dL High 74 - 99 mg/dL [facility] Interpretation and review of laboratory results Abnormal [facility] Glucose [Mass/Vol] 101 mg/dL High 74-99 [facility] Comment on above: Performed By: #### 2 341-6 ####CALE Roth ([id number])[facility] ([facility])[address] [place] [address] Glucose [Mass/Vol] 146 mg/dL High 74 - 99 mg/dL [facility] Interpretation and review of laboratory results Abnormal [facility] Glucose [Mass/Vol] 146 mg/dL High 74-99 [facility] Comment on above: Performed By: #### 2 341-6 ####CALE Roth ([id number])[facility] ([facility])[address] [place] [address] Glucose [Mass/Vol] 93 mg/dL 74 - 99 mg/dL [facility] Interpretation and review of laboratory results Normal [facility] Glucose [Mass/Vol] 93 mg/dL Normal 74-99 [facility] Comment on above: Performed By: #### 2 341-6 ####CALE Roth ([id number])[facility] ([facility])[address] [place] [address] MR BRAIN WO IV CONTRASTon MR BRAIN WO IV CONTRAST Normal [facility] MR Brain WO contraston 04-23 Radiology Study observation (narrative) [facility] Work Phone: CBC panel Auto (Bld)on 04-22 Erythrocyte distribution width (RBC) [Ratio] 12.6 % 11.5 - 14.5 % [facility] Hematocrit (Bld) [Volume fraction] 39.4 % 36.0 - 46.0 % [facility] Hemoglobin (Bld) [Mass/Vol] 12.8 g/dL 12.0 - 16.0 g/dL [facility] Interpretation and review of laboratory results Normal [facility] MCH (RBC) [Entitic mass] 29.2 pg 26.0 - 34.0 pg [facility] MCHC (RBC) [Mass/Vol] 32.5 g/dL 32.0 - 36.0 g/dL [facility] MCV (RBC) [Entitic vol] 90 fL 80 - 100 fL [facility] Nucleated RBC/100 WBC (Bld) [Ratio] 0.0 % [facility] Platelets (Bld) [#/Vol] 294 10*3/uL [facility] RBC (Bld) [#/Vol] 4.39 10*6/uL [facility] WBC (Bld) [#/Vol] 4.7 10*3/uL [facility] [place] [facility] Erythrocyte distribution width (RBC) [Ratio] 12.6 % Normal 11.5-14.5 [facility] Comment on above: Performed By: #### 5 8410-2 ####CALE Roth ([id number])[facility] ([facility])[address] [place] [address] Hematocrit (Bld) [Volume fraction] 39.4 % Normal 36.0-46.0 [facility] Comment on above: Performed By: #### 5 8410-2 ####CALE Roth ([id number])[facility] ([facility])[address] [place] [address] Hemoglobin (Bld) [Mass/Vol] 12.8 g/dL Normal 12.0-16.0 [facility] Comment on above: Performed By: #### 5 8410-2 ####CALE Roth ([id number])[facility] ([facility])[address] [place] [address] MCH (RBC) [Entitic mass] 29.2 pg Normal 26.0-34.0 [facility] Comment on above: Performed By: #### 5 8410-2 ####CALE Roth ([id number])[facility] ([facility])[address] [place] [address] MCHC (RBC) [Mass/Vol] 32.5 g/dL Normal 32.0-36.0 [facility] Comment on above: Performed By: #### 5 8410-2 ####CALE Roth ([id number])[facility] ([facility])[address] [place] [address] MCV (RBC) [Entitic vol] 90 fL Normal 80-100 [facility] Comment on above: Performed By: #### 5 8410-2 ####CALE Roth ([id number])[facility] ([facility])[id number] [place] [address] Nucleated RBC/100 WBC (Bld) [Ratio] 0.0 /100 WBCs Normal 0.0-0.0 [facility] Comment on above: Performed By: #### 5 8410-2 ####CALE RUTLEDGEER L ([id number])[facility] ([facility])[address] [place] [address] Platelets (Bld) [#/Vol] 294 x10*3/uL Normal 150-450 [facility] Comment on above: Performed By: #### 5 8410-2 ####CALE TOSCANOMOTZER L ([id number])[facility] ([facility])[address] [place] [address] RBC (Bld) [#/Vol] 4.39 x10*6/uL Normal 4.00-5.20 [facility] Comment on above: Performed By: #### 5 8410-2 ####CALE TOSCANOMOTZER L ([id number])[facility] ([facility])[address] [place] [address] WBC (Bld) [#/Vol] 4.7 x10*3/uL Normal 4.4-11.3 [facility] Comment on above: Performed By: #### 5 8410-2 ####CALE TOSCANOMOTZER L ([id number])[facility] ([facility])[address] [place] [address] CT HEAD WO IV CONTRASTon CT HEAD WO IV CONTRAST Normal [facility] CT Head WO contraston 2024 1. Postsurgical khoury ges compatible with suboccipital craniectomy and mesh cranioplasty. There is an extracranial fluid collection overlying the mesh which may communicate with an extra-axial, intracranial collection deep to the mesh. This extracranial fluid is present on April 08, 2025 but new from March 29, 2025. The sterility of the fluid can not be determined on the basis of imaging. 2. Interval decrease/collapse of the resection cavity within the cerebellum with increase in diffuse hypoattenuation within the cerebellar hemispheres and possibly the irene which may reflect edema. There is at least partial effacement of the 4th ventricle and prepontine cistern. MRI may be of benefit for further characterization if clinically warranted. 3. Right posterior approach ventriculostomy shunt catheter with stable size and configuration of the ventricular system when compared to prior from April 08, 2025. I personally reviewed the images/study and I agree with the findings as stated. MACRO: None Signed by: Hilda Lucas 04/22/2025 4:07 PM Dictation workstation: [id number] [facility] Interpreted By: Hilda Ramirez and Kaur Arashdeep STUDY: CT HEAD WO IV CONTRAST; 04/22/2025 3:24 pm INDICATION: Signs/Symptoms:hydrocephalu s. COMPARISON: CT head 04/08/2025. CT head 03/29/2025.. ACCESSION NUMBER(S): [id number] ORDERING CLINICIAN: ALFRED SELF TECHNIQUE: Noncontrast axial CT scan of head was performed. Angled reformats in brain and bone windows were generated. The images were reviewed in bone, brain, blood and soft tissue windows. Coronal and sagittal reformats were provided for review. FINDINGS: There are again postoperative changes consistent with suboccipital craniotomy and mesh cranioplasty. There is nonspecific soft tissue thickening and fluid overlying the cranioplasty and extending into the upper neck, increased from the previous examination performed on March 29, 2025 but present on the outside study from April 08, 2025. The fluid collection measures approximately 4 mm in thickness along the mesh and may communicate with an intracranial, extra-axial collection measuring up to approximately 5-6 mm subjacent to the mesh compared with 8 mm on the previous exam. There is again artifact from several surgical clips and embolization material within the posterior fossa. There is increasing diminished attenuation within the cerebellum with mass effect including at least partial effacement of the 4th ventricle and prepontine cistern. There may be diminished attenuation within the brainstem as well noting it is difficult to accurately evaluate due to artifact. Stable linear hypoattenuation within right frontal lobe (series 204, image 39) from prior ventriculostomy catheter tract. Focal hyperdensity within left cerebellopontine angle cistern, best appreciated on axial images (series 204, image 73) and measures 0.8 cm x 0.4 cm, likely artifact due to volume averaging. Ventricles: Redemonstration of right posterior approach ventriculostomy shunt catheter with stable size and configuration of the ventricular system when compared to prior from April 08, 2025 and decreased from March 29, 2025. Sinuses and mastoid air cells: Visualized paranasal sinuses bilateral mastoid air cells are clear. There is a right frontal georgina hole. There are small bone fragments subjacent to the georgina hole. [facility] Hilda Lucas, DO - 04/22/2025 Interpreted By: Hilda Lucas and Kaur Arashdeep STUDY: CT HEAD WO IV CONTRAST; 04/22/2025 3:24 pm INDICATION: Signs/Symptoms:hydrocephalu s. COMPARISON: CT head 04/08/2025. CT head 03/29/2025.. ACCESSION NUMBER(S): [id number] ORDERING CLINICIAN: ALFRED SELF TECHNIQUE: Noncontrast axial CT scan of head was performed. Angled reformats in brain and bone windows were generated. The images were reviewed in bone, brain, blood and soft tissue windows. Coronal and sagittal reformats were provided for review. FINDINGS: There are again postoperative changes consistent with suboccipital craniotomy and mesh cranioplasty. There is nonspecific soft tissue thickening and fluid overlying the cranioplasty and extending into the upper neck, increased from the previous examination performed on March 29, 2025 but present on the outside study from April 08, 2025. The fluid collection measures approximately 4 mm in thickness along the mesh and may communicate with an intracranial, extra-axial collection measuring up to approximately 5-6 mm subjacent to the mesh compared with 8 mm on the previous exam. There is again artifact from several surgical clips and embolization material within the posterior fossa. There is increasing diminished attenuation within the cerebellum with mass effect including at least partial effacement of the 4th ventricle and prepontine cistern. There may be diminished attenuation within the brainstem as well noting it is difficult to accurately evaluate due to artifact. Stable linear hypoattenuation within right frontal lobe (series 204, image 39) from prior ventriculostomy catheter tract. Focal hyperdensity within left cerebellopontine angle cistern, best appreciated on axial images (series 204, image 73) and measures 0.8 cm x 0.4 cm, likely artifact due to volume averaging. Ventricles: Redemonstration of right posterior approach ventriculostomy shunt catheter with stable size and configuration of the ventricular system when compared to prior from April 08, 2025 and decreased from March 29, 2025. Sinuses and mastoid air cells: Visualized paranasal sinuses bilateral mastoid air cells are clear. There is a right frontal georgina hole. There are small bone fragments subjacent to the georgina hole. IMPRESSION: 1. Postsurgical changes compatible with suboccipital craniectomy and mesh cranioplasty. There is an extracranial fluid collection overlying the mesh which may communicate with an extra-axial, intracranial collection deep to the mesh. This extracranial fluid is present on April 08, 2025 but new from March 29, 2025. The sterility of the fluid can not be determined on the basis of imaging. 2. Interval decrease/collapse of the resection cavity within the cerebellum with increase in diffuse hypoattenuation within the cerebellar hemispheres and possibly the irene which may reflect edema. There is at least partial effacement of the 4th ventricle and prepontine cistern. MRI may be of benefit for further characterization if clinically warranted. 3. Right posterior approach ventriculostomy shunt catheter with stable size and configuration of the ventricular system when compared to prior from April 08, 2025. I personally reviewed the images/study and I agree with the findings as stated. MACRO: None Signed by: Hilda Lucas 04/22/2025 4:07 PM Dictation workstation: [id number] [facility] Work Phone: Radiology Study observation (narrative) [facility] Work Phone: CT Head WO contrastOrdered B y: Hilda Lucas on 04-22-2025 [facility] Work Phone: Glucose Test strip manual (B ld) [Mass/Vol]on 04-22-2025 Glucose [Mass/Vol] 110 mg/dL High 74 - 99 mg/dL [facility] Interpretation and review of laboratory results Abnormal [facility] Glucose [Mass/Vol] 110 mg/dL High 74-99 [facility] Comment on above: Performed By: #### 2 341-6 ####CALE Roth ([id number])[facility] ([facility])[address] [place] [address] Glucose [Mass/Vol] 112 mg/dL High 74 - 99 mg/dL [facility] Interpretation and review of laboratory results Abnormal [facility] Glucose [Mass/Vol] 112 mg/dL High 74-99 [facility] Comment on above: Performed By: #### 2 341-6 ####CALE Roth ([id number])[facility] ([facility])[address] [place] [address] Glucose [Mass/Vol] 151 mg/dL High 74 - 99 mg/dL [facility] Interpretation and review of laboratory results Abnormal [facility] Glucose [Mass/Vol] 151 mg/dL High 74-99 [facility] Comment on above: Performed By: #### 2 341-6 ####CALE Roth ([id number])[facility] ([facility])[address] [place] [address] Glucose [Mass/Vol] 127 mg/dL High 74 - 99 mg/dL [facility] Interpretation and review of laboratory results Abnormal [facility] Glucose [Mass/Vol] 127 mg/dL High 74-99 [facility] Comment on above: Performed By: #### 2 341-6 ####CALE Roth ([id number])[facility] ([facility])[address] [place] [address] Renal function 2000 panelon 04-22-2025 Albumin BCP dye [Mass/Vol] 3.7 g/dL 3.4 - 5.0 g/dL [facility] Anion gap [Moles/Vol] 15 mmol/L 10 - 20 mmol/L [facility] Calcium [Mass/Vol] 9.6 mg/dL 8.6 - 10. 6 mg/dL [facility] Chloride [Moles/Vol] 94 mmol/L Low 98 - 10 7 mmol/L [facility] CO2 [Moles/Vol] 32 mmol/L 21 - 32 mmol/L [facility] Comment on above: Bicarbonate results may be falsely elevated when Lactate Dehydrogenase (LDH) concentrations exceed 2,000 U/L due to a temporary reagent manufacturing issue. If significantly elevated LDH levels are suspected, interpret bicarbonate results with caution, correlate with the patient s clinical status, and consider confirming CO2 values using a blood gas analyzer. Creatinine [Mass/Vol] 0.41 mg/dL Low 0.50 - 1.05 mg/dL [facility] eGFR - PINF [facility] Comment on above: Calculations of marisol mated GFR are performed using the 2020 CKD-EPI Study Refit equation without the race variable for the IDMS-Traceable creatinine methods. https://jasn.asnjournals.org/content//ASN.2275857 988 Glucose [Mass/Vol] 151 mg/dL High 74 - 99 mg/dL [facility] Interpretation and review of laboratory results Abnormal [facility] Phosphate [Mass/Vol] 4.0 mg/dL 2.5 - 4 .9 mg/dL [facility] Potassium [Moles/Vol] 4.0 mmol/L 3.5 - 5.3 mmol/L [facility] Sodium [Moles/Vol] 137 mmol/L 136 - 145 mmol/L [facility] Urea nitrogen [Mass/Vol] 15 mg/dL 6 - 23 mg/dL [facility] Albumin BCP dye [Mass/Vol] 3.7 g/dL Normal 3.4-5.0 [facility] Comment on above: Performed By: #### 2 4362-6 ####CALE Roth ([id number])[facility] ([facility])[address] [place] [address] Anion gap [Moles/Vol] 15 mmol/L Normal 10-20 [facility] Comment on above: Performed By: #### 2 4362-6 ####CALE Roth ([id number])[facility] ([facility])[address] [place] [address] Calcium [Mass/Vol] 9.6 mg/dL Normal 8.6-10.6 [facility] Comment on above: Performed By: #### 2 4362-6 ####CALE Roth ([id number])[facility] ([facility])[address] [place] [address] Chloride [Moles/Vol] 94 mmol/L Low 98-107 [facility] Comment on above: Performed By: #### 2 4362-6 ####CALE Roth ([id number])[facility] ([facility])[address] [place] [address] CO2 [Moles/Vol] 32 mmol/L Normal 21-32 [facility] Comment on above: Result Comment: Bica rbonate results may be falsely elevated when Lactate Dehydrogenase (LDH) concentrations exceed 2,000 U/L due to a temporary reagent manufacturing issue. If significantly elevated LDH levels are suspected, interpret bicarbonate results with caution, correlate with the patient's clinical status, and consider confirming CO2 values using a blood gas analyzer. Performed By: #### 2 4362-6 ####CALE Roth ([id number])[facility] ([facility])[address] [place] [address] Creatinine [Mass/Vol] 0.41 mg/dL Low 0.50-1.05 [facility] Comment on above: Performed By: #### 2 4362-6 ####CALE Roth ([id number])[facility] ([facility])[address] [place] [address] Glomerular filtration rate >90 Normal >60 [facility] Comment on above: Result Comment: Calc ulations of estimated GFR are performed using the 2020 CKD-EPI Study Refit equation without the race variable for the IDMS-Traceable creatinine methods.https://jasn.asnjournals.org/content//ASN .7163198365 Performed By: #### 2 4362-6 ####CALE Roth ([id number])[facility] ([facility])[address] [place] [address] Glucose [Mass/Vol] 151 mg/dL High 74-99 [facility] Comment on above: Performed By: #### 2 4362-6 ####CALE Roth ([id number])[facility] ([facility])[address] [place] [address] Phosphate [Mass/Vol] 4.0 mg/dL Normal 2.5-4.9 [facility] Comment on above: Performed By: #### 2 4362-6 ####CALE Roth ([id number])[facility] ([facility])[address] [place] [address] Potassium [Moles/Vol] 4.0 mmol/L Normal 3.5-5.3 [facility] Comment on above: Performed By: #### 2 4362-6 ####CALE Roth ([id number])[facility] ([facility])[address] [place] [address] Sodium [Moles/Vol] 137 mmol/L Normal 136-145 [facility] Comment on above: Performed By: #### 2 4362-6 ####CALE Roth ([id number])[facility] ([facility])[address] [place] [address] Urea nitrogen [Mass/Vol] 15 mg/dL Normal 6-23 [facility] Comment on above: Performed By: #### 2 4362-6 ####CALE Roth ([id number])[facility] ([facility])[address] [place] [address] Bedside Glucoseon 04-21-2025 FINGERSTICK GLU 176 mg/dL High 74-106 [facility] Comment on above: Result Comment: BONNIE GEMENT OF PATIENT CARE PER NURSING PROTOCOL Performed By: #### L 100.0100, L500.2500 #### [facility] [address] [place], [address] Blood type and Indirect anti body screen panel (Bld)on 04-21-2025 ABO group Nom (Bld) B [facility] Blood group antibody screen Ql Negative [facility] D Ag Ql (Bld) Positive [facility] ABO group Nom (Bld) B Normal [facility] Comment on above: Performed By: #### 3 4532-2 ####CALE Roth ([id number])[facility] ([facility])[address] [place] [address] Blood group antibody screen Ql Negative Normal [facility] Comment on above: Performed By: #### 3 4532-2 ####CALE Roth ([id number])[facility] ([facility])[address] [place] [address] D Ag Ql (Bld) Positive Normal [facility] Comment on above: Performed By: #### 3 4532-2 ####CALE Roth ([id number])[facility] ([facility])[address] [place] [facility] [place] [address] C reactive proteinon 025 CRP [Mass/Vol] 2.15 mg/dL High <1.00 [facility] Comment on above: Performed By: #### 1 988-5 ####CALE Roth ([id number])[facility] [facility] ([facility])[address] [place] [address] C-reactive proteinon 025 CRP [Mass/Vol] 2.15 mg/dL High NINF - 1.00 mg/dL [facility] CBC W Auto Differential pane l (Bld)on 04-21-2025 Basophils (Bld) [#/Vol] 0.03 10*3/uL [facility] Basophils/100 WBC (Bld) 0.5 % 0.0 - 2.0 % [facility] Eosinophils (Bld) [#/Vol] 0.03 10*3/uL [facility] Eosinophils/100 WBC (Bld) 0.5 % 0.0 - 6.0 % [facility] Erythrocyte distribution width (RBC) [Ratio] 12.6 % 11.5 - 14.5 % [facility] Hematocrit (Bld) [Volume fraction] 37.8 % 36.0 - 46.0 % [facility] Hemoglobin (Bld) [Mass/Vol] 12.9 g/dL 12.0 - 16.0 g/dL [facility] Immature granulocytes (Bld) [#/Vol] 0.10 10*3/uL [facility] Immature granulocytes/100 WBC (Bld) 1.6 % High 0.0 - 0.9 % [facility] Comment on above: Immature Granulocyte Count (IG) includes promyelocytes, myelocytes and metamyelocytes but does not include bands. Percent differential counts (%) should be interpreted in the context of the absolute cell counts (cells/UL). Interpretation and review of laboratory results Abnormal [facility] Lymphocytes (Bld) [#/Vol] 0.96 10*3/uL Low [facility] Lymphocytes/100 WBC (Bld) 15.4 % 13.0 - 44.0 % [facility] MCH (RBC) [Entitic mass] 28.7 pg 26.0 - 34.0 pg [facility] MCHC (RBC) [Mass/Vol] 34.1 g/dL 32.0 - 36.0 g/dL [facility] MCV (RBC) [Entitic vol] 84 fL 80 - 100 fL [facility] Monocytes (Bld) [#/Vol] 0.54 10*3/uL [facility] Monocytes/100 WBC (Bld) 8.7 % 2.0 - 10.0 % [facility] Neutrophils (Bld) [#/Vol] 4.58 10*3/uL [facility] Comment on above: Percent differential counts (%) should be interpreted in the context of the absolute cell counts (cells/uL). Neutrophils/100 WBC (Bld) 73.3 % 40.0 - 80.0 % [facility] Nucleated RBC/100 WBC (Bld) [Ratio] 0.0 % [facility] Platelets (Bld) [#/Vol] 313 10*3/uL [facility] RBC (Bld) [#/Vol] 4.49 10*6/uL [facility] WBC (Bld) [#/Vol] 6.2 10*3/uL [facility] Basophils (Bld) [#/Vol] 0.03 x10*3/uL Normal 0.00-0.10 [facility] Comment on above: Performed By: #### 5 7021-8 ####CALE Roth ([id number])[facility] ([facility])[address] [place] [address] Basophils/100 WBC (Bld) 0.5 % Normal 0.0-2.0 [facility] Comment on above: Performed By: #### 5 7021-8 ####CALE Roth ([id number])[facility] ([facility])[address] [place] [address] Eosinophils (Bld) [#/Vol] 0.03 x10*3/uL Normal 0.00-0.70 [facility] Comment on above: Performed By: #### 5 7021-8 ####CALE Roth ([id number])[facility] ([facility])[address] [place] [address] Eosinophils/100 WBC (Bld) 0.5 % Normal 0.0-6.0 [facility] Comment on above: Performed By: #### 5 7021-8 ####CALE Roth ([id number])[facility] ([facility])[id number] [place] [address] Erythrocyte distribution width (RBC) [Ratio] 12.6 % Normal 11.5-14.5 [facility] Comment on above: Performed By: #### 5 7021-8 ####CALE Roth ([id number])[facility] ([facility])[address] [place] [address] Hematocrit (Bld) [Volume fraction] 37.8 % Normal 36.0-46.0 [facility] Comment on above: Performed By: #### 5 7021-8 ####CALE Roth ([id number])[facility] ([facility])[id number] [place] [address] Hemoglobin (Bld) [Mass/Vol] 12.9 g/dL Normal 12.0-16.0 [facility] Comment on above: Performed By: #### 5 7021-8 ####CALE Roth ([id number])[facility] ([facility])[address] [place] [address] Immature granulocytes (Bld) [#/Vol] 0.10 x10*3/uL Normal 0.00-0.70 [facility] Comment on above: Performed By: #### 5 7021-8 ####CALE Roth ([id number])[facility] ([facility])[address] [place] [address] Immature granulocytes/100 WBC (Bld) 1.6 % High 0.0-0.9 [facility] Comment on above: Result Comment: Aleisha ture Granulocyte Count (IG) includes promyelocytes, myelocytes and metamyelocytes but does not include bands. Percent differential counts (%) should be interpreted in the context of the absolute cell counts (cells/UL). Performed By: #### 5 7021-8 ####CALE Roth ([id number])[facility] ([facility])[address] [place] [address] Lymphocytes (Bld) [#/Vol] 0.96 x10*3/uL Low 1.20-4.80 [facility] Comment on above: Performed By: #### 5 7021-8 ####CALE Roth ([id number])[facility] ([facility])[address] [place] [address] Lymphocytes/100 WBC (Bld) 15.4 % Normal 13.0-44.0 [facility] Comment on above: Performed By: #### 5 7021-8 ####CALE Roth ([id number])[facility] ([facility])[address] [place] [address] MCH (RBC) [Entitic mass] 28.7 pg Normal 26.0-34.0 [facility] Comment on above: Performed By: #### 5 7021-8 ####CALE Roth ([id number])[facility] ([facility])[address] [place] [address] MCHC (RBC) [Mass/Vol] 34.1 g/dL Normal 32.0-36.0 [facility] Comment on above: Performed By: #### 5 7021-8 ####CALE Roth ([id number])[facility] ([facility])[address] [place] [address] MCV (RBC) [Entitic vol] 84 fL Normal 80-100 [facility] Comment on above: Performed By: #### 5 7021-8 ####CALE Roth ([id number])[facility] ([facility])[address] [place] [address] Monocytes (Bld) [#/Vol] 0.54 x10*3/uL Normal 0.10-1.00 [facility] Comment on above: Performed By: #### 5 7021-8 ####CALE Roth ([id number])[facility] ([facility])[address] [place] [address] Monocytes/100 WBC (Bld) 8.7 % Normal 2.0-10.0 [facility] Comment on above: Performed By: #### 5 7021-8 ####CALE Roth ([id number])[facility] ([facility])[address] [place] [address] Neutrophils (Bld) [#/Vol] 4.58 x10*3/uL Normal 1.20-7.70 [facility] Comment on above: Result Comment: Perc ent differential counts (%) should be interpreted in the context of the absolute cell counts (cells/uL). Performed By: #### 5 7021-8 ####CALE Roth ([id number])[facility] ([facility])[address] [place] [address] Neutrophils/100 WBC (Bld) 73.3 % Normal 40.0-80.0 [facility] Comment on above: Performed By: #### 5 7021-8 ####CALE Roth ([id number])[facility] ([facility])[address] [place] [address] Nucleated RBC/100 WBC (Bld) [Ratio] 0.0 /100 WBCs Normal 0.0-0.0 [facility] Comment on above: Performed By: #### 5 7021-8 ####CALE Roth ([id number])[facility] ([facility])[address] [place] [address] Platelets (Bld) [#/Vol] 313 x10*3/uL Normal 150-450 [facility] Comment on above: Performed By: #### 5 7021-8 ####CALE Roth ([id number])[facility] ([facility])[address] [place] [address] RBC (Bld) [#/Vol] 4.49 x10*6/uL Normal 4.00-5.20 [facility] Comment on above: Performed By: #### 5 7021-8 ####CALE Roth ([id number])[facility] ([facility])[id number] [place] [address] WBC (Bld) [#/Vol] 6.2 x10*3/uL Normal 4.4-11.3 [facility] Comment on above: Performed By: #### 5 7021-8 ####CALE Roth ([id number])[facility] ([facility])[id number] [place] [address] CRP [Mass/Vol]on 04-21-2025 Interpretation and review of laboratory results Abnormal [facility] Choriogonadotropin.beta subu niton 04-21-2025 HCG.beta subunit Qn m[IU]/mL Normal <5 [facility] Comment on above: Order Comment: Total HCG measurement is performed using the Siemens Atellica immunoassay which detects intact HCG and free beta HCG subunit. This test is not indicated for use as a tumor marker. HCG testing is performed using a different test methodology at [facility] than other [facility]. Direct result comparison should only be made within the same method. Performed By: #### 2 1198-7 ####CALE Roth ([id number])[facility] ([facility])[address] [place] [address] Coagulation tissue factor in ducedon 04-21-2025 PT Coag (PPP) [Time] 12.6 s High 9.8-12.4 [facility] Comment on above: Performed By: #### 5 902-2 ####CALE Roth ([id number])[facility] ([facility])[address] [place] [address] Comprehensive metabolic 2000 panelon 04-21-2025 Albumin BCP dye [Mass/Vol] 3.7 g/dL 3.4 - 5.0 g/dL [facility] ALP [Catalytic activity/Vol] 90 U/L 33 - 110 U/L [facility] ALT With P-5'-P [Catalytic activity/Vol] 35 U/L 7 - 45 U/L [facility] Comment on above: Patients treated wit h Sulfasalazine may generate falsely decreased results for ALT. Anion gap [Moles/Vol] 12 mmol/L 10 - 20 mmol/L [facility] AST With P-5'-P [Catalytic activity/Vol] 24 U/L 9 - 39 U/L [facility] Comment on above: MILD HEMOLYSIS DETEC VIPUL. The result may be falsely elevated due to hemolysis or other interferents. Clinical correlation is recommended. Repeat testing may be considered. Bilirubin [Mass/Vol] 0.3 mg/dL 0.0 - 1 .2 mg/dL [facility] Calcium [Mass/Vol] 9.8 mg/dL 8.6 - 10. 6 mg/dL [facility] Chloride [Moles/Vol] 94 mmol/L Low 98 - 10 7 mmol/L [facility] CO2 [Moles/Vol] 34 mmol/L High 21 - 32 mmol/L [facility] Comment on above: Bicarbonate results may be falsely elevated when Lactate Dehydrogenase (LDH) concentrations exceed 2,000 U/L due to a temporary reagent manufacturing issue. If significantly elevated LDH levels are suspected, interpret bicarbonate results with caution, correlate with the patient s clinical status, and consider confirming CO2 values using a blood gas analyzer. Creatinine [Mass/Vol] 0.35 mg/dL Low 0.50 - 1.05 mg/dL [facility] eGFR - PINF [facility] Comment on above: Calculations of marisol mated GFR are performed using the 2020 CKD-EPI Study Refit equation without the race variable for the IDMS-Traceable creatinine methods. https://jasn.asnjournals.org/content//ASN.0346902 988 Glucose [Mass/Vol] 102 mg/dL High 74 - 99 mg/dL [facility] Interpretation and review of laboratory results Abnormal [facility] Potassium [Moles/Vol] 4.3 mmol/L 3.5 - 5.3 mmol/L [facility] Comment on above: MILD HEMOLYSIS DETEC VIPUL. The result may be falsely elevated due to hemolysis or other interferents. Clinical correlation is recommended. Repeat testing may be considered. Protein [Mass/Vol] 7.6 g/dL 6.4 - 8.2 g/dL [facility] Sodium [Moles/Vol] 136 mmol/L 136 - 145 mmol/L [facility] Urea nitrogen [Mass/Vol] 12 mg/dL 6 - 23 mg/dL [facility] Albumin BCP dye [Mass/Vol] 3.7 g/dL Normal 3.4-5.0 [facility] Comment on above: Performed By: #### 2 4323-8 ####CALE Roth ([id number])[facility] ([facility])[address] [place] [address] ALP [Catalytic activity/Vol] 90 U/L Normal 33-110 [facility] Comment on above: Performed By: #### 2 4323-8 ####CALE Roth ([id number])[facility] ([facility])[address] [place] [address] ALT With P-5'-P [Catalytic activity/Vol] 35 U/L Normal 7-45 [facility] Comment on above: Result Comment: Rehana ents treated with Sulfasalazine may generate falsely decreased results for ALT. Performed By: #### 2 4323-8 ####CALE CAI L ([id number])[facility] ([facility])[address] [place] [address] Anion gap [Moles/Vol] 12 mmol/L Normal 10-20 [facility] Comment on above: Performed By: #### 2 4323-8 ####CALE Roth ([id number])[facility] ([facility])[address] [place] [address] AST With P-5'-P [Catalytic activity/Vol] 24 U/L Normal 9-39 [facility] Comment on above: Result Comment: MILD HEMOLYSIS DETECTED. The result may be falsely elevated due to hemolysis or other interferents. Clinical correlation is recommended. Repeat testing may be considered. Performed By: #### 2 4323-8 ####CALE Roth ([id number])[facility] ([facility])[address] [place] [address] Bilirubin [Mass/Vol] 0.3 mg/dL Normal 0.0-1.2 [facility] Comment on above: Performed By: #### 2 4323-8 ####CALE Roth ([id number])[facility] ([facility])[address] [place] [address] Calcium [Mass/Vol] 9.8 mg/dL Normal 8.6-10.6 [facility] Comment on above: Performed By: #### 2 4323-8 ####CALE Roth ([id number])[facility] ([facility])[address] [place] [address] Chloride [Moles/Vol] 94 mmol/L Low 98-107 [facility] Comment on above: Performed By: #### 2 4323-8 ####CALE Roth ([id number])[facility] ([facility])[address] [place] [address] CO2 [Moles/Vol] 34 mmol/L High 21-32 [facility] Comment on above: Result Comment: Bica rbonate results may be falsely elevated when Lactate Dehydrogenase (LDH) concentrations exceed 2,000 U/L due to a temporary reagent manufacturing issue. If significantly elevated LDH levels are suspected, interpret bicarbonate results with caution, correlate with the patient's clinical status, and consider confirming CO2 values using a blood gas analyzer. Performed By: #### 2 4323-8 ####CALE Roth ([id number])[facility] ([facility])[address] [place] [address] Creatinine [Mass/Vol] 0.35 mg/dL Low 0.50-1.05 [facility] Comment on above: Performed By: #### 2 4323-8 ####CALE Roth ([id number])[facility] ([facility])[address] [place] [address] Glomerular filtration rate >90 Normal >60 [facility] Comment on above: Result Comment: Calc ulations of estimated GFR are performed using the 2020 CKD-EPI Study Refit equation without the race variable for the IDMS-Traceable creatinine methods.https://jasn.asnjournals.org/content/early//ASN .7667139692 Performed By: #### 2 4323-8 ####CALE Roth ([id number])[facility] ([facility])[address] [place] [address] Glucose [Mass/Vol] 102 mg/dL High 74-99 [facility] Comment on above: Performed By: #### 2 4323-8 ####CALE Roth ([id number])[facility] ([facility])[address] [place] [address] Potassium [Moles/Vol] 4.3 mmol/L Normal 3.5-5.3 [facility] Comment on above: Result Comment: MILD HEMOLYSIS DETECTED. The result may be falsely elevated due to hemolysis or other interferents. Clinical correlation is recommended. Repeat testing may be considered. Performed By: #### 2 4323-8 ####CALE Roth ([id number])[facility] ([facility])[address] [place] [address] Protein [Mass/Vol] 7.6 g/dL Normal 6.4-8.2 [facility] Comment on above: Performed By: #### 2 4323-8 ####CALE Roth ([id number])[facility] ([facility])[address] [place] [address] Sodium [Moles/Vol] 136 mmol/L Normal 136-145 [facility] Comment on above: Performed By: #### 2 4323-8 ####CALE Roth ([id number])[facility] ([facility])[address] [place] [address] Urea nitrogen [Mass/Vol] 12 mg/dL Normal 6-23 [facility] Comment on above: Performed By: #### 2 4323-8 ####CALE Roth ([id number])[facility] ([facility])[address] [place] [address] ESR Westergren method (Bld) [Velocity]on 04-21-2025 ESR (Bld) [Velocity] 33 mm/h High 0 - 20 mm/h [facility] Interpretation and review of laboratory results Abnormal [facility] ESR (Bld) [Velocity] 33 mm/h High 0-20 [facility] Comment on above: Performed By: #### 4 537-7 ####CALE Roth ([id number])[facility] ([facility])[address] [place] [address] Gas panel (BldV)on Anion gap 4 (BldV) [Moles/Vol] 3.0 mmol/L Low 10.0 - 25.0 mmol/L [facility] Base excess Calc (BldV) [Moles/Vol] 13.1 mmol/L High -2.0 - 3.0 mmol/L [facility] Calcium.ionized (BldV) [Moles/Vol] 1.22 mmol/L 1.10 - 1.33 mmol/L [facility] Chloride (BldV) [Moles/Vol] 96 mmol/L Low 98 - 107 mmol/L [facility] CO2 (BldV) [Partial pressure] 49 mm[Hg] [facility] Glucose [Mass/Vol] 113 mg/dL High 74 - 99 mg/dL [facility] HCO3 (Bld) [Moles/Vol] 38.2 mmol/L High 22.0 - 26.0 mmol/L [facility] Hematocrit Est (Bld) [Volume fraction] 41.0 % 36.0 - 46.0 % [facility] Hemoglobin (Bld) [Mass/Vol] 13.5 g/dL 12.0 - 16.0 g/dL [facility] Interpretation and review of laboratory results Abnormal [facility] Lactate (BldV) [Moles/Vol] 1.2 mmol/L 0.4 - 2.0 mmol/L [facility] Oxygen (BldV) [Partial pressure] 61 mm[Hg] High [facility] Oxygen saturation in Venous blood 92 % High 45 - 75 % [facility] Oxyhemoglobin (BldV) [Mass fraction] 89.4 % High 45.0 - 75.0 % [facility] pH (BldV) 7.50 [pH] High 7.33 - 7.43 pH [facility] Potassium (BldV) [Moles/Vol] 4.5 mmol/L 3.5 - 5.3 mmol/L [facility] Sodium (BldV) [Moles/Vol] 133 mmol/L Low 136 - 145 mmol/L [facility] Anion gap 4 (BldV) [Moles/Vol] 3.0 mmol/L Low 10.0-25.0 [facility] Comment on above: Performed By: #### 2 4339-4 ####CALE Roth ([id number])[facility] ([facility])[address] [place] [address] Base excess Calc (BldV) [Moles/Vol] 13.1 mmol/L High -2.0-3.0 [facility] Comment on above: Performed By: #### 2 4339-4 ####CALE Roth ([id number])[facility] ([facility])[id number] [place] [address] Calcium.ionized (BldV) [Moles/Vol] 1.22 mmol/L Normal 1.10-1.33 [facility] Comment on above: Performed By: #### 2 4339-4 ####CALE Roth ([id number])[facility] ([facility])[address] [place] [address] Chloride (BldV) [Moles/Vol] 96 mmol/L Low 98-107 [facility] Comment on above: Performed By: #### 2 4339-4 ####CALE Roth ([id number])[facility] ([facility])[address] [place] [address] CO2 (BldV) [Partial pressure] 49 mm Hg Normal 41-51 [facility] Comment on above: Performed By: #### 2 4339-4 ####CALE Roth ([id number])[facility] ([facility])[address] [place] [address] Glucose [Mass/Vol] 113 mg/dL High 74-99 [facility] Comment on above: Performed By: #### 2 4339-4 ####CLAE Roth ([id number])[facility] ([facility])[address] [place] [address] HCO3 (Bld) [Moles/Vol] 38.2 mmol/L High 22.0-26.0 [facility] Comment on above: Performed By: #### 2 4339-4 ####CALE Roth ([id number])[facility] ([facility])[address] [place] [address] Hematocrit Est (Bld) [Volume fraction] 41.0 % Normal 36.0-46.0 [facility] Comment on above: Performed By: #### 2 4339-4 ####CALE Roth ([id number])[facility] ([facility])[address] [place] [address] Hemoglobin (Bld) [Mass/Vol] 13.5 g/dL Normal 12.0-16.0 [facility] Comment on above: Performed By: #### 2 4339-4 ####CALE Roth ([id number])[facility] ([facility])[address] [place] [address] Lactate (BldV) [Moles/Vol] 1.2 mmol/L Normal 0.4-2.0 [facility] Comment on above: Performed By: #### 2 4339-4 ####CALE Roth ([id number])[facility] ([facility])[id number] [place] [address] Oxygen (BldV) [Partial pressure] 61 mm Hg High 35-45 [facility] Comment on above: Performed By: #### 2 4339-4 ####CALE Roth ([id number])[facility] ([facility])[id number] [place] [address] Oxygen saturation in Venous blood 92 % High 45-75 [facility] Comment on above: Performed By: #### 2 4339-4 ####CALE Roth ([id number])[facility] [facility] ([facility])[id number] [place] [address]145 Oxyhemoglobin (BldV) [Mass fraction] 89.4 % High 45.0-75.0 [facility] Comment on above: Performed By: #### 2 4339-4 ####CALE Roth ([id number])[facility] ([facility])[id number] [place] [address] 91448 pH (BldV) 7.50 [pH] High 7.33-7.43 [facility] Comment on above: Performed By: #### 2 4339-4 ####CALE Roth ([id number])[facility] ([facility])[id number] [place] [address] 90178 Potassium (BldV) [Moles/Vol] 4.5 mmol/L Normal 3.5-5.3 [facility] Comment on above: Performed By: #### 2 4339-4 ####CALE Roth ([id number])[facility] ([facility])[id number] [place] [address] 39263 Sodium (BldV) [Moles/Vol] 133 mmol/L Low 136-145 [facility] Comment on above: Performed By: #### 2 4339-4 ####CALE Roth ([id number])[facility] ([facility])[address] [place] [address] HCG.beta subunit Qnon 2024 Interpretation and review of laboratory results Normal [facility] Total HCG measuremen t is performed using the Siemens AtellSpartz immunoassay which detects intact HCG and free beta HCG subunit. This test is not indicated for use as a tumor marker. HCG testing is performed using a different test methodology at [facility] than other [facility]. Direct result comparison should only be made within the same method. [facility] Human Chorionic Gonadotropin , Serum Quantitativeon 04-21-2025 HCG.beta subunit Qn NINF [facility] Magnesiumon 04-21-2025 Magnesium [Mass/Vol] 2.43 mg/dL High 1.60 - 2.40 mg/dL [facility] Magnesium [Mass/Vol] 2.43 mg/dL High 1.60-2.40 [facility] Comment on above: Performed By: #### 1 9123-9 ####CALE Roth ([id number])[facility] ([facility])[id number] [place] [address] 01405 Magnesium [Mass/Vol]on 04-21 Interpretation and review of laboratory results Abnormal [facility] PT Coag (PPP) [Time]on 04-21 INR Coag (PPP) [Relative time] 1.1 {INR} 0.9 - 1.1 [facility] Interpretation and review of laboratory results Abnormal [facility] INR Coag (PPP) [Relative time] 1.1 Normal 0.9-1.1 [facility] Comment on above: Performed By: #### 5 902-2 ####CALE Roth ([id number])[facility] ([facility])[address] [place] [address] Protime-INRon 04-21-2025 PT Coag (PPP) [Time] 12.6 s High [facility] Bedside Glucoseon 04-20-2025 FINGERSTICK GLU 103 mg/dL Normal 74-106 [facility] Comment on above: Result Comment: BONNIE GEMENT OF PATIENT CARE PER NURSING PROTOCOL Performed By: #### L 100.0100, L500.2500 #### [facility] [address] [place], [address] FINGERSTICK GLU 153 mg/dL High 74-106 [facility] Comment on above: Result Comment: BONNIE GEMENT OF PATIENT CARE PER NURSING PROTOCOL Performed By: #### L 500.2500, L100.0100 #### [facility] [address] [place], [address] Brain/Head without Contrasto n 04-20-2025 Brain/Head without Contrast [facility] Imaging Services [address] [place] [address] Brain/Head without Contrast MR#: [id number] Acct: [id number] Name: KIMANI COHEN Rep #: [id number] : 2000 F 24 From: Ayush Burger MD PCP: Dr. Yessenia Dixon MD Status: REG CLI Study: Brain/Head without Contrast Date of Exam: 03/25 02/15 Exam# [id number] Ordering Dr: Benjy Gonzalez MD PROCEDURE: CT BRAIN/HEAD WITHOUT CONTRAST 04/20/2025 REASON FOR EXAM: MENTAL STATUS CHANGE TECHNIQUE: Procedure Code: CTBR Modality: CT Procedure: BRAIN/HEAD WITHOUT CONTRAST Coronal and Sagittal reconstruction series were provided. One or more dose reduction techniques were used (e.g., Automated exposure control, adjustment of the mA and/or kV according to patient size, use of iterative reconstruction technique. 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 Metallic surgical clips/embolization material in the posterior fossa surgical bed with similar appearing probable cystic encephalomalacia along the cerebellar vermis. Right parietal approach ventriculoperitoneal shunt with catheter tip at the anterior body of right lateral ventricle. Interval decreased caliber of the ventricular system which is now slit-like, with basilar cistern effacement, suggestive of over-shunting. No evidence of acute intracranial hemorrhage, mass-effect or midline shift, or acute appearing territorial infarct. Unremarkable orbital contents. Well-aerated visualized paranasal sinuses and bilateral mastoid air cells. CT/Brain/Head without Contrast IMPRESSION: Postoperative changes to the posterior fossa as described. Right parietal approach DOCUMENT CLERK shunt in stable positioning. Evidence of over-shunting with slit-like ventricular caliber and basilar cistern effacement since prior exam. Neurosurgical consult suggested. No acute intracranial hemorrhage, mass-effect or evidence of acute territorial infarct. Reading Location: [id number] CC: Dr. Yessenia Dixon MD; Dr. Benjy Gonzalez MD [employer] Setter: Signed Normal [facility] CBC W/Diff, Automatedon 10-2 Absolute Lymph 0.57 X10 3/uL Low 0.83-4.51 [facility] Comment on above: Performed By: #### L 500.2500, L100.0100 #### [facility] [address] [place], [address] Absolute Neut 6.9 X10 3/uL Normal 2.0-7.7 [facility] Comment on above: Performed By: #### L 500.2500, L100.0100 #### [facility] [address] [place], [address] Basophils/100 WBC (Bld) 0.7 % Normal 0-1 [facility] Comment on above: Performed By: #### L 500.2500, L100.0100 #### [facility] [address] [place], [address] Eosinophils/100 WBC (Bld) 0.2 % Normal 0-5 [facility] Comment on above: Performed By: #### L 500.2500, L100.0100 #### [facility] [address] [place], [address] Erythrocyte distribution width (RBC) [Ratio] 12.7 % Normal 11.6-14.6 [facility] Comment on above: Performed By: #### L 500.2500, L100.0100 #### [facility] [address] [place], [address] Hematocrit (Bld) [Volume fraction] 38.5 % Normal 37-47 [facility] Comment on above: Performed By: #### L 500.2500, L100.0100 #### [facility] [address] [place], [address] Hemoglobin (Bld) [Mass/Vol] 12.9 g/dL Normal 12.0-15.0 [facility] Comment on above: Performed By: #### L 500.2500, L100.0100 #### [facility] [address] [place], [address] IG% 1.100 High 0.0-0.9 [facility] Comment on above: Result Comment: IG% - Immature Granulocytes (promyelocytes, myelocytes and metamyelocytes) > 1% indicates that a LEFT SHIFT is Present. Performed By: #### L 500.2500, L100.0100 #### [facility] [address] [place], [address] Lymphocytes/100 WBC (Bld) 7.1 % Low 19-41 [facility] Comment on above: Performed By: #### L 500.2500, L100.0100 #### [facility] [address] [place], [address] MCH (RBC) [Entitic mass] 29.1 pg Normal 27.0-32.0 [facility] Comment on above: Performed By: #### L 500.2500, L100.0100 #### [facility] [address] [place], [address] MCHC (RBC) [Mass/Vol] 33.5 g/dL Normal 32-36 [facility] Comment on above: Performed By: #### L 500.2500, L100.0100 #### [facility] [address] [place], [address] MCV (RBC) [Entitic vol] 86.7 fL Normal 81-99 [facility] Comment on above: Performed By: #### L 500.2500, L100.0100 #### [facility] [address] [place], [address] Monocytes/100 WBC (Bld) 5.7 % Normal 0-10 [facility] Comment on above: Performed By: #### L 500.2500, L100.0100 #### [facility] [address] [place], [address] Neutrophils/100 WBC (Bld) 85.2 % High 47-70 [facility] Comment on above: Performed By: #### L 500.2500, L100.0100 #### [facility] [address] [place], [address] Nucleated RBC (Bld) [#/Vol] 0 10*3/uL Normal 0-5 [facility] Comment on above: Performed By: #### L 500.2500, L100.0100 #### [facility] [address] [place], [address] Platelet mean volume (Bld) [Entitic vol] 10.3 fL Normal 6.2-12.0 [facility] Comment on above: Performed By: #### L 500.2500, L100.0100 #### [facility] [address] [place], [address] Platelets (Bld) [#/Vol] 308 10*3/uL Normal 150-450 [facility] Comment on above: Performed By: #### L 500.2500, L100.0100 #### [facility] [address] [place], [address] RBC (Bld) [#/Vol] 4.44 10*6/uL Normal 4.2-5.4 [facility] Comment on above: Performed By: #### L 500.2500, L100.0100 #### [facility] [address] [place], [address] RDW SD 39.8 fl Normal 35.1-43.9 [facility] Comment on above: Performed By: #### L 500.2500, L100.0100 #### [facility] [address] [place], [address] WBC (Bld) [#/Vol] 8.1 10*3/uL Normal 4.4-11.0 [facility] Comment on above: Performed By: #### L 500.2500, L100.0100 #### [facility] [address] [place], [address] Comprehensive Metabolic Prof [facility] sh[facility] 04-20-2025 Albumin [Mass/Vol] 3.8 g/dL Normal 3.5-5.0 [facility] Comment on above: Performed By: #### L 500.2500, L100.0100 #### [facility] [address] [place], [address] Albumin/Globulin [Mass ratio] 1.0 {ratio} Normal 0.9-2.4 [facility] Comment on above: Performed By: #### L 500.2500, L100.0100 #### [facility] [address] [place], [address] ALK PHOS 103 U/L Normal 35-104 [facility] Comment on above: Performed By: #### L 500.2500, L100.0100 #### [facility] [address] [place], [address] ALT [Catalytic activity/Vol] 38 U/L High <=34 [facility] Comment on above: Performed By: #### L 500.2500, L100.0100 #### [facility] [address] [place], [address] AST [Catalytic activity/Vol] 22 U/L Normal <=31 [facility] Comment on above: Performed By: #### L 500.2500, L100.0100 #### [facility] [address] [place], [address] Bilirubin [Mass/Vol] 0.32 mg/dL Normal 0.00-1.30 [facility] Comment on above: Performed By: #### L 500.2500, L100.0100 #### [facility] [address] [place], [address] BUN/CRE 33.7 RATIO High 10-20 [facility] Comment on above: Performed By: #### L 500.2500, L100.0100 #### [facility] [address] [place], [address] Calcium [Mass/Vol] 9.2 mg/dL Normal 7.6-11.0 [facility] Comment on above: Performed By: #### L 500.2500, L100.0100 #### [facility] [address] [place], [address] Chloride [Moles/Vol] 96 mmol/L Low 98-108 [facility] Comment on above: Performed By: #### L 500.2500, L100.0100 #### [facility] [address] [place], [address] CO2 [Moles/Vol] 29.4 mmol/L Normal 21.0-32.0 [facility] Comment on above: Performed By: #### L 500.2500, L100.0100 #### [facility] [address] [place], [address] Creatinine [Mass/Vol] 0.33 mg/dL Low 0.70-1.20 [facility] Comment on above: Performed By: #### L 500.2500, L100.0100 #### [facility] [address] [place], [address] ECRCL 170.42 ml/min Normal 50-250 [facility] Comment on above: Performed By: #### L 500.2500, L100.0100 #### [facility] [address] [place], [address] GAP 11 Normal 5-15 [facility] Comment on above: Performed By: #### L 500.2500, L100.0100 #### [facility] [address] [place], [address] GFR/1.73 sq M.predicted among non-blacks MDRD (S/P/Bld) [Vol rate/Area] 151 mL/min/{1.73_m2} Normal >60 [facility] Comment on above: Result Comment: mL/m in/1.73m2 CKD-EPI Creatinine Equation (2020) Performed By: #### L 500.2500, L100.0100 #### [facility] [address] [place], [address] Globulin (S) [Mass/Vol] 3.7 g/dL Normal 2.2-4.2 [facility] Comment on above: Performed By: #### L 500.2500, L100.0100 #### [facility] [address] [place], [address] Glucose [Mass/Vol] 122 mg/dL High 70-99 [facility] Comment on above: Performed By: #### L 500.2500, L100.0100 #### [facility] [address] [place], [address] Potassium [Moles/Vol] 3.9 mmol/L Normal 3.3-5.1 [facility] Comment on above: Performed By: #### L 500.2500, L100.0100 #### [facility] [address] [place], [address] Sodium [Moles/Vol] 137 mmol/L Normal 133-145 [facility] Comment on above: Performed By: #### L 500.2500, L100.0100 #### [facility] [address] [place], [address] T PROT 7.5 g/dL Normal 5.9-8.4 [facility] Comment on above: Performed By: #### L 500.2500, L100.0100 #### [facility] [address] [place], [address] Urea nitrogen [Mass/Vol] 11 mg/dL Normal 4-19 [facility] Comment on above: Performed By: #### L 500.2500, L100.0100 #### [facility] [address] [place], [address] Urinalysis, Completeon 04-20 AMORPHOUS 2+ Normal [facility] Comment on above: Order Comment: SAUL TER SPECIMEN Performed By: #### L 100.0100, L500.2500 #### [facility] [address] [place], [address] BACTERIA 2+ /hpf Normal None Seen [facility] Comment on above: Order Comment: SAUL TER SPECIMEN Performed By: #### L 100.0100, L500.2500 #### [facility] [address] [place], [address] Mucus Ql (Urine sed) RARE Normal [facility] Comment on above: Order Comment: SAUL TER SPECIMEN Performed By: #### L 100.0100, L500.2500 #### [facility] [address] [place], [address] EPI,SQUAMOUS 0 SEEN Normal 5-10 [facility] Comment on above: Order Comment: SAUL TER SPECIMEN Performed By: #### L 100.0100, L500.2500 #### [facility] [address] [place], [address] RBC 0 SEEN Normal 0-5 [facility] Comment on above: Order Comment: SAUL TER SPECIMEN Performed By: #### L 100.0100, L500.2500 #### [facility] [address] [place], [address] WBC 0 SEEN Normal 0-5 [facility] Comment on above: Order Comment: SAUL TER SPECIMEN Performed By: #### L 100.0100, L500.2500 #### [facility] [address] [place], [address] Basic Metabolic Profile (BMP )on 04-19-2025 BUN/CRE 37.7 RATIO High 10-20 [facility] Comment on above: Performed By: #### L 500.2500, L100.0100 #### [facility] [address] [place], [address] Calcium [Mass/Vol] 9.6 mg/dL Normal 7.6-11.0 [facility] Comment on above: Performed By: #### L 500.2500, L100.0100 #### [facility] [address] [place], [address] Chloride [Moles/Vol] 97 mmol/L Low 98-108 [facility] Comment on above: Performed By: #### L 500.2500, L100.0100 #### [facility] [address] [place], [address] CO2 [Moles/Vol] 29.2 mmol/L Normal 21.0-32.0 [facility] Comment on above: Performed By: #### L 500.2500, L100.0100 #### [facility] [address] [place], [address] Creatinine [Mass/Vol] 0.41 mg/dL Low 0.70-1.20 [facility] Comment on above: Performed By: #### L 500.2500, L100.0100 #### [facility] [address] [place], [address] ECRCL 140.44 ml/min Normal 50-250 [facility] Comment on above: Performed By: #### L 500.2500, L100.0100 #### [facility] [address] [place], [address] GAP 12 Normal 5-15 [facility] Comment on above: Performed By: #### L 500.2500, L100.0100 #### [facility] [address] [place], [address] GFR/1.73 sq M.predicted among non-blacks MDRD (S/P/Bld) [Vol rate/Area] 143 mL/min/{1.73_m2} Normal >60 [facility] Comment on above: Result Comment: mL/m in/1.73m2 CKD-EPI Creatinine Equation (2020) Performed By: #### L 500.2500, L100.0100 #### [facility] [address] [place], [address] Glucose [Mass/Vol] 164 mg/dL High 70-99 [facility] Comment on above: Performed By: #### L 500.2500, L100.0100 #### [facility] [address] [place], [address] Potassium [Moles/Vol] 3.9 mmol/L Normal 3.3-5.1 [facility] Comment on above: Performed By: #### L 500.2500, L100.0100 #### [facility] [address] [place], [address] Sodium [Moles/Vol] 138 mmol/L Normal 133-145 [facility] Comment on above: Performed By: #### L 500.2500, L100.0100 #### [facility] [address] [place], [address] Urea nitrogen [Mass/Vol] 15 mg/dL Normal 4-19 [facility] Comment on above: Performed By: #### L 500.2500, L100.0100 #### [facility] [address] [place], [address] Bedside Glucoseon 04-19-2025 FINGERSTICK GLU 99 mg/dL Normal 74-106 [facility] Comment on above: Result Comment: BONNIE GEMENT OF PATIENT CARE PER NURSING PROTOCOL Performed By: #### L 500.2500, L100.0100 #### [facility] [address] [place], [address] FINGERSTICK GLU 154 mg/dL High 74-106 [facility] Comment on above: Result Comment: BONNIE GEMENT OF PATIENT CARE PER NURSING PROTOCOL Performed By: #### L 501.080 #### [facility] [address] [place], [address] CBC W/Diff, Automatedon - Absolute Lymph 1.17 X10 3/uL Normal 0.83-4.51 [facility] Comment on above: Performed By: #### L 500.2500, L100.0100 #### [facility] [address] [place], [address] Absolute Neut 7.6 X10 3/uL Normal 2.0-7.7 [facility] Comment on above: Performed By: #### L 500.2500, L100.0100 #### [facility] [address] [place], [address] Basophils/100 WBC (Bld) 0.7 % Normal 0-1 [facility] Comment on above: Performed By: #### L 500.2500, L100.0100 #### [facility] [address] [place], [address] Eosinophils/100 WBC (Bld) 0.9 % Normal 0-5 [facility] Comment on above: Performed By: #### L 500.2500, L100.0100 #### [facility] [address] [place], [address] Erythrocyte distribution width (RBC) [Ratio] 12.9 % Normal 11.6-14.6 [facility] Comment on above: Performed By: #### L 500.2500, L100.0100 #### [facility] [address] [place], [address] Hematocrit (Bld) [Volume fraction] 39.6 % Normal 37-47 [facility] Comment on above: Performed By: #### L 500.2500, L100.0100 #### [facility] [address] [place], [address] Hemoglobin (Bld) [Mass/Vol] 13.0 g/dL Normal 12.0-15.0 [facility] Comment on above: Performed By: #### L 500.2500, L100.0100 #### [facility] [address] [place], [address] IG% 1.400 High 0.0-0.9 [facility] Comment on above: Result Comment: IG% - Immature Granulocytes (promyelocytes, myelocytes and metamyelocytes) > 1% indicates that a LEFT SHIFT is Present. Performed By: #### L 500.2500, L100.0100 #### [facility] [address] [place], [address] Lymphocytes/100 WBC (Bld) 12.1 % Low 19-41 [facility] Comment on above: Performed By: #### L 500.2500, L100.0100 #### [facility] [address] [place], [address] MCH (RBC) [Entitic mass] 28.8 pg Normal 27.0-32.0 [facility] Comment on above: Performed By: #### L 500.2500, L100.0100 #### [facility] [address] [place], [address] MCHC (RBC) [Mass/Vol] 32.8 g/dL Normal 32-36 [facility] Comment on above: Performed By: #### L 500.2500, L100.0100 #### [facility] [address] [place], [address] MCV (RBC) [Entitic vol] 87.8 fL Normal 81-99 [facility] Comment on above: Performed By: #### L 500.2500, L100.0100 #### [facility] [address] [place], [address] Monocytes/100 WBC (Bld) 6.0 % Normal 0-10 [facility] Comment on above: Performed By: #### L 500.2500, L100.0100 #### [facility] [address] [place], [address] Neutrophils/100 WBC (Bld) 78.9 % High 47-70 [facility] Comment on above: Performed By: #### L 500.2500, L100.0100 #### [facility] [address] [place], [address] Nucleated RBC (Bld) [#/Vol] 0 10*3/uL Normal 0-5 [facility] Comment on above: Performed By: #### L 500.2500, L100.0100 #### [facility] [address] [place], [address] Platelet mean volume (Bld) [Entitic vol] 10.3 fL Normal 6.2-12.0 [facility] Comment on above: Performed By: #### L 500.2500, L100.0100 #### [facility] [address] [place], [address] Platelets (Bld) [#/Vol] 409 10*3/uL Normal 150-450 [facility] Comment on above: Performed By: #### L 500.2500, L100.0100 #### [facility] [address] [place], [address] RBC (Bld) [#/Vol] 4.51 10*6/uL Normal 4.2-5.4 [facility] Comment on above: Performed By: #### L 500.2500, L100.0100 #### [facility] [address] [place], [address] RDW SD 41.5 fl Normal 35.1-43.9 [facility] Comment on above: Performed By: #### L 500.2500, L100.0100 #### [facility] [address] [place], [address] WBC (Bld) [#/Vol] 9.7 10*3/uL Normal 4.4-11.0 [facility] Comment on above: Performed By: #### L 500.2500, L100.0100 #### [facility] [address] [place], [address] Absolute Neut Normal 2.0-7.7 [facility] Comment on above: Result Comment: DUPL ICATE- SEE H35 Performed By: #### L 500.2500, L100.0100 #### [facility] [address] [place], [address] HCT Normal 37-47 [facility] Comment on above: Result Comment: DUPL ICATE- SEE H35 Performed By: #### L 500.2500, L100.0100 #### [facility] [address] [place], [address] HGB Normal 12.0-15.0 [facility] Comment on above: Result Comment: DUPL ICATE- SEE H35 Performed By: #### L 500.2500, L100.0100 #### [facility] [address] [place], [address] MCH Normal 27.0-32.0 [facility] Comment on above: Result Comment: DUPL ICATE- SEE H35 Performed By: #### L 500.2500, L100.0100 #### [facility] [address] [place], [address] MCHC Normal 32-36 [facility] Comment on above: Result Comment: DUPL ICATE- SEE H35 Performed By: #### L 500.2500, L100.0100 #### [facility] [address] [place], [address] MCV Normal 81-99 [facility] Comment on above: Result Comment: DUPL ICATE- SEE H35 Performed By: #### L 500.2500, L100.0100 #### [facility] [address] [place], [address] NEUT% Normal 47-70 [facility] Comment on above: Result Comment: DUPL ICATE- SEE H35 Performed By: #### L 500.2500, L100.0100 #### [facility] [address] [place], [address] PLT Normal 150-450 [facility] Comment on above: Result Comment: DUPL ICATE- SEE H35 Performed By: #### L 500.2500, L100.0100 #### [facility] [address] [place], [address] RBC Normal 4.2-5.4 [facility] Comment on above: Result Comment: DUPL ICATE- SEE H35 Performed By: #### L 500.2500, L100.0100 #### [facility] [address] [place], [address] RDW CV Normal 11.6-14.6 [facility] Comment on above: Result Comment: DUPL ICATE- SEE H35 Performed By: #### L 500.2500, L100.0100 #### [facility] [address] [place], [address] RDW SD Normal 35.1-43.9 [facility] Comment on above: Result Comment: DUPL ICATE- SEE H35 Performed By: #### L 500.2500, L100.0100 #### [facility] [address] [place], [address] WBC Normal 4.4-11.0 [facility] Comment on above: Result Comment: DUPL ICATE- SEE H35 Performed By: #### L 500.2500, L100.0100 #### [facility] [address] [place], [address] Basic Metabolic Profile (BMP )on 04-18-2025 BUN/CRE 42.1 RATIO High 04-12 [facility] Comment on above: Performed By: #### L 500.2500, L100.0100 #### [facility] [address] [place], [address] Calcium [Mass/Vol] 9.4 mg/dL Normal 7.6-11.0 [facility] Comment on above: Performed By: #### L 500.2500, L100.0100 #### [facility] [address] [place], [address] Chloride [Moles/Vol] 96 mmol/L Low 98-108 [facility] Comment on above: Performed By: #### L 500.2500, L100.0100 #### [facility] [address] [place], [address] CO2 [Moles/Vol] 27.6 mmol/L Normal 21.0-32.0 [facility] Comment on above: Performed By: #### L 500.2500, L100.0100 #### [facility] [address] [place], [address] Creatinine [Mass/Vol] 0.39 mg/dL Low 0.70-1.20 [facility] Comment on above: Performed By: #### L 500.2500, L100.0100 #### [facility] [address] [place], [address] ECRCL 147.64 ml/min Normal 50-250 [facility] Comment on above: Performed By: #### L 500.2500, L100.0100 #### [facility] [address] [place], [address] GAP 11 Normal 5-15 [facility] Comment on above: Performed By: #### L 500.2500, L100.0100 #### [facility] [address] [place], [address] GFR/1.73 sq M.predicted among non-blacks MDRD (S/P/Bld) [Vol rate/Area] 144 mL/min/{1.73_m2} Normal >60 [facility] Comment on above: Result Comment: mL/m in/1.73m2 CKD-EPI Creatinine Equation (2020) Performed By: #### L 500.2500, L100.0100 #### [facility] [address] [place], [address] Glucose [Mass/Vol] 162 mg/dL High 70-99 [facility] Comment on above: Performed By: #### L 500.2500, L100.0100 #### [facility] [address] [place], [address] Potassium [Moles/Vol] 3.8 mmol/L Normal 3.3-5.1 [facility] Comment on above: Performed By: #### L 500.2500, L100.0100 #### [facility] [address] [place], [address] Sodium [Moles/Vol] 135 mmol/L Normal 133-145 [facility] Comment on above: Performed By: #### L 500.2500, L100.0100 #### [facility] [address] [place], [address] Urea nitrogen [Mass/Vol] 17 mg/dL Normal 4-19 [facility] Comment on above: Performed By: #### L 500.2500, L100.0100 #### [facility] [address] [place], [address] Bedside Glucoseon 04-18-2025 FINGERSTICK GLU 122 mg/dL High 74-106 [facility] Comment on above: Result Comment: BONNIE GEMENT OF PATIENT CARE PER NURSING PROTOCOL Performed By: #### L 501.080 #### [facility] [address] [place], [address] FINGERSTICK GLU 171 mg/dL High 74-106 [facility] Comment on above: Result Comment: BONNIE GEMENT OF PATIENT CARE PER NURSING PROTOCOL Performed By: #### L 500.2500, L100.0100 #### [facility] [address] [place], [address] CBC W/Diff, Automatedon - Absolute Lymph 1.13 X10 3/uL Normal 0.83-4.51 [facility] Comment on above: Performed By: #### L 500.2500, L100.0100 #### [facility] [address] [place], [address] Absolute Neut 8.2 X10 3/uL High 2.0-7.7 [facility] Comment on above: Performed By: #### L 500.2500, L100.0100 #### [facility] [address] [place], [address] Basophils/100 WBC (Bld) 0.4 % Normal 0-1 [facility] Comment on above: Performed By: #### L 500.2500, L100.0100 #### [facility] [address] [place], [address] Eosinophils/100 WBC (Bld) 1.0 % Normal 0-5 [facility] Comment on above: Performed By: #### L 500.2500, L100.0100 #### [facility] [address] [place], [address] Erythrocyte distribution width (RBC) [Ratio] 12.9 % Normal 11.6-14.6 [facility] Comment on above: Performed By: #### L 500.2500, L100.0100 #### [facility] [address] [place], [address] Hematocrit (Bld) [Volume fraction] 38.5 % Normal 37-47 [facility] Comment on above: Performed By: #### L 500.2500, L100.0100 #### [facility] [address] [place], [address] Hemoglobin (Bld) [Mass/Vol] 13.1 g/dL Normal 12.0-15.0 [facility] Comment on above: Performed By: #### L 500.2500, L100.0100 #### [facility] [address] [place], [address] IG% 1.500 High 0.0-0.9 [facility] Comment on above: Result Comment: IG% - Immature Granulocytes (promyelocytes, myelocytes and metamyelocytes) > 1% indicates that a LEFT SHIFT is Present. Performed By: #### L 500.2500, L100.0100 #### [facility] [address] [place], [address] Lymphocytes/100 WBC (Bld) 11.1 % Low 19-41 [facility] Comment on above: Performed By: #### L 500.2500, L100.0100 #### [facility] [address] [place], [address] MCH (RBC) [Entitic mass] 29.6 pg Normal 27.0-32.0 [facility] Comment on above: Performed By: #### L 500.2500, L100.0100 #### [facility] [address] [place], [address] MCHC (RBC) [Mass/Vol] 34.0 g/dL Normal 32-36 [facility] Comment on above: Performed By: #### L 500.2500, L100.0100 #### [facility] [address] [place], [address] MCV (RBC) [Entitic vol] 87.1 fL Normal 81-99 [facility] Comment on above: Performed By: #### L 500.2500, L100.0100 #### [facility] [address] [place], [address] Monocytes/100 WBC (Bld) 6.2 % Normal 0-10 [facility] Comment on above: Performed By: #### L 500.2500, L100.0100 #### [facility] [address] [place], [address] Neutrophils/100 WBC (Bld) 79.8 % High 47-70 [facility] Comment on above: Performed By: #### L 500.2500, L100.0100 #### [facility] [address] [place], [address] Nucleated RBC (Bld) [#/Vol] 0 10*3/uL Normal 0-5 [facility] Comment on above: Performed By: #### L 500.2500, L100.0100 #### [facility] [address] [place], [address] Platelet mean volume (Bld) [Entitic vol] 10.2 fL Normal 6.2-12.0 [facility] Comment on above: Performed By: #### L 500.2500, L100.0100 #### [facility] [address] [place], [address] Platelets (Bld) [#/Vol] 434 10*3/uL Normal 150-450 [facility] Comment on above: Performed By: #### L 500.2500, L100.0100 #### [facility] [address] [place], [address] RBC (Bld) [#/Vol] 4.42 10*6/uL Normal 4.2-5.4 [facility] Comment on above: Performed By: #### L 500.2500, L100.0100 #### [facility] [address] [place], [address] RDW SD 40.6 fl Normal 35.1-43.9 [facility] Comment on above: Performed By: #### L 500.2500, L100.0100 #### [facility] [address] [place], [address] WBC (Bld) [#/Vol] 10.2 10*3/uL Normal 4.4-11.0 [facility] Comment on above: Performed By: #### L 500.2500, L100.0100 #### [facility] [address] [place], [address] Basic Metabolic Profile (BMP )on 04-17-2024 BUN/CRE 42.7 RATIO High 10-20 [facility] Comment on above: Performed By: #### L 501.080 #### [facility] [address] [place], [address] Calcium [Mass/Vol] 9.8 mg/dL Normal 7.6-11.0 [facility] Comment on above: Performed By: #### L 501.080 #### [facility] [address] [place], [address] Chloride [Moles/Vol] 99 mmol/L Normal 98-108 [facility] Comment on above: Performed By: #### L 501.080 #### [facility] [address] [place], [address] CO2 [Moles/Vol] 27.1 mmol/L Normal 21.0-32.0 [facility] Comment on above: Performed By: #### L 501.080 #### [facility] [address] [place], [address] Creatinine [Mass/Vol] 0.47 mg/dL Low 0.70-1.20 [facility] Comment on above: Performed By: #### L 501.080 #### [facility] [address] [place], [address] ECRCL 122.51 ml/min Normal 50-250 [facility] Comment on above: Performed By: #### L 501.080 #### [facility] [address] [place], [address] GAP 12 Normal 5-15 [facility] Comment on above: Performed By: #### L 501.080 #### [facility] [address] [place], [address] GFR/1.73 sq M.predicted among non-blacks MDRD (S/P/Bld) [Vol rate/Area] 138 mL/min/{1.73_m2} Normal >60 [facility] Comment on above: Result Comment: mL/m in/1.73m2 CKD-EPI Creatinine Equation (2020) Performed By: #### L 501.080 #### [facility] [address] [place], [address] Glucose [Mass/Vol] 200 mg/dL High 70-99 [facility] Comment on above: Performed By: #### L 501.080 #### [facility] [address] [place], [address] Potassium [Moles/Vol] 4.4 mmol/L Normal 3.3-5.1 [facility] Comment on above: Performed By: #### L 501.080 #### [facility] [address] [place], [address] Sodium [Moles/Vol] 137 mmol/L Normal 133-145 [facility] Comment on above: Performed By: #### L 501.080 #### [facility] [address] [place], [address] Urea nitrogen [Mass/Vol] 20 mg/dL High 4-19 [facility] Comment on above: Performed By: #### L 501.080 #### [facility] [address] [place], [address] Bedside Glucoseon 04-17-2024 FINGERSTICK GLU 124 mg/dL High 74-106 [facility] Comment on above: Result Comment: BONNIE GEMENT OF PATIENT CARE PER NURSING PROTOCOL Performed By: #### L 500.2500, L100.0100 #### [facility] [address] [place], [address] FINGERSTICK GLU 159 mg/dL High 74-106 [facility] Comment on above: Result Comment: BONNIE GEMENT OF PATIENT CARE PER NURSING PROTOCOL Performed By: #### L 100.0100, L500.2500 #### [facility] [address] [place], [address] CBC W/Diff, Automatedon 10-2 Absolute Lymph 1.28 X10 3/uL Normal 0.83-4.51 [facility] Comment on above: Performed By: #### L 501.080 #### [facility] [address] [place], [address] Absolute Neut 8.3 X10 3/uL High 2.0-7.7 [facility] Comment on above: Performed By: #### L 501.080 #### [facility] [address] [place], [address] Basophils/100 WBC (Bld) 0.6 % Normal 0-1 [facility] Comment on above: Performed By: #### L 501.080 #### [facility] [address] [place], [address] Eosinophils/100 WBC (Bld) 0.8 % Normal 0-5 [facility] Comment on above: Performed By: #### L 501.080 #### [facility] [address] [place], [address] Erythrocyte distribution width (RBC) [Ratio] 13.0 % Normal 11.6-14.6 [facility] Comment on above: Performed By: #### L 501.080 #### [facility] [address] [place], [address] Hematocrit (Bld) [Volume fraction] 39.6 % Normal 37-47 [facility] Comment on above: Performed By: #### L 501.080 #### [facility] [address] [place], [address] Hemoglobin (Bld) [Mass/Vol] 13.2 g/dL Normal 12.0-15.0 [facility] Comment on above: Performed By: #### L 501.080 #### [facility] [address] [place], [address] IG% 2.200 High 0.0-0.9 [facility] Comment on above: Result Comment: IG% - Immature Granulocytes (promyelocytes, myelocytes and metamyelocytes) > 1% indicates that a LEFT SHIFT is Present. Performed By: #### L 501.080 #### [facility] [address] [place], [address] Lymphocytes/100 WBC (Bld) 12.0 % Low 19-41 [facility] Comment on above: Performed By: #### L 501.080 #### [facility] [address] [place], [address] MCH (RBC) [Entitic mass] 29.3 pg Normal 27.0-32.0 [facility] Comment on above: Performed By: #### L 501.080 #### [facility] [address] [place], [address] MCHC (RBC) [Mass/Vol] 33.3 g/dL Normal 32-36 [facility] Comment on above: Performed By: #### L 501.080 #### [facility] [address] [place], [address] MCV (RBC) [Entitic vol] 88.0 fL Normal 81-99 [facility] Comment on above: Performed By: #### L 501.080 #### [facility] [address] [place], [address] Monocytes/100 WBC (Bld) 6.6 % Normal 0-10 [facility] Comment on above: Performed By: #### L 501.080 #### [facility] [address] [place], [address] Neutrophils/100 WBC (Bld) 77.8 % High 47-70 [facility] Comment on above: Performed By: #### L 501.080 #### [facility] [address] [place], [address] Nucleated RBC (Bld) [#/Vol] 0 10*3/uL Normal 0-5 [facility] Comment on above: Performed By: #### L 501.080 #### [facility] [address] [place], [address] Platelet mean volume (Bld) [Entitic vol] 10.4 fL Normal 6.2-12.0 [facility] Comment on above: Performed By: #### L 501.080 #### [facility] [address] [place], [address] Platelets (Bld) [#/Vol] 467 10*3/uL High 150-450 [facility] Comment on above: Performed By: #### L 501.080 #### [facility] [address] [place], [address] RBC (Bld) [#/Vol] 4.50 10*6/uL Normal 4.2-5.4 [facility] Comment on above: Performed By: #### L 501.080 #### [facility] [address] [place], [address] RDW SD 41.8 fl Normal 35.1-43.9 [facility] Comment on above: Performed By: #### L 501.080 #### [facility] [address] [place], [address] WBC (Bld) [#/Vol] 10.7 10*3/uL Normal 4.4-11.0 [facility] Comment on above: Performed By: #### L 501.080 #### [facility] [address] [place], [address] Basic Metabolic Profile (BMP )on 04-16-2025 BUN/CRE 37.4 RATIO High 10-20 [facility] Comment on above: Performed By: #### L 500.2500, L100.0100 #### [facility] [address] [place], [address] Calcium [Mass/Vol] 9.4 mg/dL Normal 7.6-11.0 [facility] Comment on above: Performed By: #### L 500.2500, L100.0100 #### [facility] [address] [place], [address] Chloride [Moles/Vol] 99 mmol/L Normal 98-108 [facility] Comment on above: Performed By: #### L 500.2500, L100.0100 #### [facility] [address] [place], [address] CO2 [Moles/Vol] 25.5 mmol/L Normal 21.0-32.0 [facility] Comment on above: Performed By: #### L 500.2500, L100.0100 #### [facility] [address] [place], [address] Creatinine [Mass/Vol] 0.48 mg/dL Low 0.70-1.20 [facility] Comment on above: Performed By: #### L 500.2500, L100.0100 #### [facility] [address] [place], [address] ECRCL 119.96 ml/min Normal 50-250 [facility] Comment on above: Performed By: #### L 500.2500, L100.0100 #### [facility] [address] [place], [address] GAP 13 Normal 5-15 [facility] Comment on above: Performed By: #### L 500.2500, L100.0100 #### [facility] [address] [place], [address] GFR/1.73 sq M.predicted among non-blacks MDRD (S/P/Bld) [Vol rate/Area] 137 mL/min/{1.73_m2} Normal >60 [facility] Comment on above: Result Comment: mL/m in/1.73m2 CKD-EPI Creatinine Equation (2020) Performed By: #### L 500.2500, L100.0100 #### [facility] [address] [place], [address] Glucose [Mass/Vol] 212 mg/dL High 70-99 [facility] Comment on above: Performed By: #### L 500.2500, L100.0100 #### [facility] [address] [place], [address] Potassium [Moles/Vol] 3.9 mmol/L Normal 3.3-5.1 [facility] Comment on above: Performed By: #### L 500.2500, L100.0100 #### [facility] [address] [place], [address] Sodium [Moles/Vol] 137 mmol/L Normal 133-145 [facility] Comment on above: Performed By: #### L 500.2500, L100.0100 #### [facility] [address] [place], [address] Urea nitrogen [Mass/Vol] 18 mg/dL Normal 4-19 [facility] Comment on above: Performed By: #### L 500.2500, L100.0100 #### [facility] [address] [place], [address] Bedside Glucoseon 04-16-2025 FINGERSTICK GLU 173 mg/dL High 74-106 [facility] Comment on above: Result Comment: BONNIE GEMENT OF PATIENT CARE PER NURSING PROTOCOL Performed By: #### L 100.0100, L500.2500 #### [facility] [address] [place], [address] FINGERSTICK GLU 166 mg/dL High 74-106 [facility] Comment on above: Result Comment: BONNIE GEMENT OF PATIENT CARE PER NURSING PROTOCOL Performed By: #### L 501.080 #### [facility] [address] [place], [address] FINGERSTICK GLU 156 mg/dL High 74-106 [facility] Comment on above: Result Comment: BONNIE GEMENT OF PATIENT CARE PER NURSING PROTOCOL Performed By: #### L 500.2500, L100.0100 #### [facility] [address] [place], [address] CBC W/Diff, Automatedon 10-2 -2024 Absolute Lymph 1.40 X10 3/uL Normal 0.83-4.51 [facility] Comment on above: Performed By: #### L 500.2500, L100.0100 #### [facility] [address] [place], [address] Absolute Neut 8.1 X10 3/uL High 2.0-7.7 [facility] Comment on above: Performed By: #### L 500.2500, L100.0100 #### [facility] [address] [place], [address] Basophils/100 WBC (Bld) 0.6 % Normal 0-1 [facility] Comment on above: Performed By: #### L 500.2500, L100.0100 #### [facility] [address] [place], [address] Eosinophils/100 WBC (Bld) 0.8 % Normal 0-5 [facility] Comment on above: Performed By: #### L 500.2500, L100.0100 #### [facility] [address] [place], [address] Erythrocyte distribution width (RBC) [Ratio] 12.9 % Normal 11.6-14.6 [facility] Comment on above: Performed By: #### L 500.2500, L100.0100 #### [facility] [address] [place], [address] Hematocrit (Bld) [Volume fraction] 38.4 % Normal 37-47 [facility] Comment on above: Performed By: #### L 500.2500, L100.0100 #### [facility] [address] [place], [address] Hemoglobin (Bld) [Mass/Vol] 12.8 g/dL Normal 12.0-15.0 [facility] Comment on above: Performed By: #### L 500.2500, L100.0100 #### [facility] [address] [place], [address] IG% 2.200 High 0.0-0.9 [facility] Comment on above: Result Comment: IG% - Immature Granulocytes (promyelocytes, myelocytes and metamyelocytes) > 1% indicates that a LEFT SHIFT is Present. Performed By: #### L 500.2500, L100.0100 #### [facility] [address] [place], [address] Lymphocytes/100 WBC (Bld) 13.2 % Low 19-41 [facility] Comment on above: Performed By: #### L 500.2500, L100.0100 #### [facility] [address] [place], [address] MCH (RBC) [Entitic mass] 29.2 pg Normal 27.0-32.0 [facility] Comment on above: Performed By: #### L 500.2500, L100.0100 #### [facility] [address] [place], [address] MCHC (RBC) [Mass/Vol] 33.3 g/dL Normal 32-36 [facility] Comment on above: Performed By: #### L 500.2500, L100.0100 #### [facility] [address] [place], [address] MCV (RBC) [Entitic vol] 87.5 fL Normal 81-99 [facility] Comment on above: Performed By: #### L 500.2500, L100.0100 #### [facility] [address] [place], [address] Monocytes/100 WBC (Bld) 7.0 % Normal 0-10 [facility] Comment on above: Performed By: #### L 500.2500, L100.0100 #### [facility] [address] [place], [address] Neutrophils/100 WBC (Bld) 76.2 % High 47-70 [facility] Comment on above: Performed By: #### L 500.2500, L100.0100 #### [facility] [address] [place], [address] Nucleated RBC (Bld) [#/Vol] 0 10*3/uL Normal 0-5 [facility] Comment on above: Performed By: #### L 500.2500, L100.0100 #### [facility] [address] [place], [address] Platelet mean volume (Bld) [Entitic vol] 10.2 fL Normal 6.2-12.0 [facility] Comment on above: Performed By: #### L 500.2500, L100.0100 #### [facility] [address] [place], [address] Platelets (Bld) [#/Vol] 493 10*3/uL High 150-450 [facility] Comment on above: Performed By: #### L 500.2500, L100.0100 #### [facility] [address] [place], [address] RBC (Bld) [#/Vol] 4.39 10*6/uL Normal 4.2-5.4 [facility] Comment on above: Performed By: #### L 500.2500, L100.0100 #### [facility] [address] [place], [address] RDW SD 41.1 fl Normal 35.1-43.9 [facility] Comment on above: Performed By: #### L 500.2500, L100.0100 #### [facility] [address] [place], [address] WBC (Bld) [#/Vol] 10.6 10*3/uL Normal 4.4-11.0 [facility] Comment on above: Performed By: #### L 500.2500, L100.0100 #### [facility] [address] [place], [address] Basic Metabolic Profile (BMP )on 04-15-2025 BUN/CRE 34.7 RATIO High 10-20 [facility] Comment on above: Performed By: #### L 500.2500, L100.0100 #### [facility] [address] [place], [address] Calcium [Mass/Vol] 9.5 mg/dL Normal 7.6-11.0 [facility] Comment on above: Performed By: #### L 500.2500, L100.0100 #### [facility] [address] [place], [address] Chloride [Moles/Vol] 99 mmol/L Normal 98-108 [facility] Comment on above: Performed By: #### L 500.2500, L100.0100 #### [facility] [address] [place], [address] CO2 [Moles/Vol] 23.0 mmol/L Normal 21.0-32.0 [facility] Comment on above: Performed By: #### L 500.2500, L100.0100 #### [facility] [address] [place], [address] Creatinine [Mass/Vol] 0.53 mg/dL Low 0.70-1.20 [facility] Comment on above: Performed By: #### L 500.2500, L100.0100 #### [facility] [address] [place], [address] ECRCL 108.64 ml/min Normal 50-250 [facility] Comment on above: Performed By: #### L 500.2500, L100.0100 #### [facility] [address] [place], [address] GAP 14 Normal 5-15 [facility] Comment on above: Performed By: #### L 500.2500, L100.0100 #### [facility] [address] [place], [address] GFR/1.73 sq M.predicted among non-blacks MDRD (S/P/Bld) [Vol rate/Area] 134 mL/min/{1.73_m2} Normal >60 [facility] Comment on above: Result Comment: mL/m in/1.73m2 CKD-EPI Creatinine Equation (2020) Performed By: #### L 500.2500, L100.0100 #### [facility] [address] [place], [address] Glucose [Mass/Vol] 195 mg/dL High 70-99 [facility] Comment on above: Performed By: #### L 500.2500, L100.0100 #### [facility] [address] [place], [address] Potassium [Moles/Vol] 3.8 mmol/L Normal 3.3-5.1 [facility] Comment on above: Performed By: #### L 500.2500, L100.0100 #### [facility] [address] [place], [address] Sodium [Moles/Vol] 136 mmol/L Normal 133-145 [facility] Comment on above: Performed By: #### L 500.2500, L100.0100 #### [facility] [address] [place], [address] Urea nitrogen [Mass/Vol] 18 mg/dL Normal 4-19 [facility] Comment on above: Performed By: #### L 500.2500, L100.0100 #### [facility] [address] [place], [address] Bedside Glucoseon 04-15-2025 FINGERSTICK GLU 147 mg/dL High 74-106 [facility] Comment on above: Result Comment: BONNIE AL OF PATIENT CARE PER NURSING PROTOCOL Performed By: #### L 501.080 #### [facility] [address] [place], [address] CBC W/Diff, Automatedon 10-2 Absolute Lymph 1.17 X10 3/uL Normal 0.83-4.51 [facility] Comment on above: Performed By: #### L 500.2500, L100.0100 #### [facility] [address] [place], [address] Absolute Neut 7.5 X10 3/uL Normal 2.0-7.7 [facility] Comment on above: Performed By: #### L 500.2500, L100.0100 #### [facility] [address] [place], [address] Basophils/100 WBC (Bld) 0.9 % Normal 0-1 [facility] Comment on above: Performed By: #### L 500.2500, L100.0100 #### [facility] [address] [place], [address] Eosinophils/100 WBC (Bld) 1.1 % Normal 0-5 [facility] Comment on above: Performed By: #### L 500.2500, L100.0100 #### [facility] [address] [place], [address] Erythrocyte distribution width (RBC) [Ratio] 13.0 % Normal 11.6-14.6 [facility] Comment on above: Performed By: #### L 500.2500, L100.0100 #### [facility] [address] [place], [address] Hematocrit (Bld) [Volume fraction] 37.3 % Normal 37-47 [facility] Comment on above: Performed By: #### L 500.2500, L100.0100 #### [facility] [address] [place], [address] Hemoglobin (Bld) [Mass/Vol] 12.4 g/dL Normal 12.0-15.0 [facility] Comment on above: Performed By: #### L 500.2500, L100.0100 #### [facility] [address] [place], [address] IG% 3.000 High 0.0-0.9 [facility] Comment on above: Result Comment: IG% - Immature Granulocytes (promyelocytes, myelocytes and metamyelocytes) > 1% indicates that a LEFT SHIFT is Present. Performed By: #### L 500.2500, L100.0100 #### [facility] [address] [place], [address] Lymphocytes/100 WBC (Bld) 11.9 % Low 19-41 [facility] Comment on above: Performed By: #### L 500.2500, L100.0100 #### [facility] [address] [place], [address] MCH (RBC) [Entitic mass] 29.1 pg Normal 27.0-32.0 [facility] Comment on above: Performed By: #### L 500.2500, L100.0100 #### [facility] [address] [place], [address] MCHC (RBC) [Mass/Vol] 33.2 g/dL Normal 32-36 [facility] Comment on above: Performed By: #### L 500.2500, L100.0100 #### [facility] [address] [place], [address] MCV (RBC) [Entitic vol] 87.6 fL Normal 81-99 [facility] Comment on above: Performed By: #### L 500.2500, L100.0100 #### [facility] [address] [place], [address] Monocytes/100 WBC (Bld) 6.7 % Normal 0-10 [facility] Comment on above: Performed By: #### L 500.2500, L100.0100 #### [facility] [address] [place], [address] Neutrophils/100 WBC (Bld) 76.4 % High 47-70 [facility] Comment on above: Performed By: #### L 500.2500, L100.0100 #### [facility] [address] [place], [address] Nucleated RBC (Bld) [#/Vol] 0 10*3/uL Normal 0-5 [facility] Comment on above: Performed By: #### L 500.2500, L100.0100 #### [facility] [address] [place], [address] Platelet mean volume (Bld) [Entitic vol] 10.3 fL Normal 6.2-12.0 [facility] Comment on above: Performed By: #### L 500.2500, L100.0100 #### [facility] [address] [place], [address] Platelets (Bld) [#/Vol] 476 10*3/uL High 150-450 [facility] Comment on above: Performed By: #### L 500.2500, L100.0100 #### [facility] [address] [place], [address] RBC (Bld) [#/Vol] 4.26 10*6/uL Normal 4.2-5.4 [facility] Comment on above: Performed By: #### L 500.2500, L100.0100 #### [facility] [address] [place], [address] RDW SD 41.0 fl Normal 35.1-43.9 [facility] Comment on above: Performed By: #### L 500.2500, L100.0100 #### [facility] [address] [place], [address] WBC (Bld) [#/Vol] 9.8 10*3/uL Normal 4.4-11.0 [facility] Comment on above: Performed By: #### L 500.2500, L100.0100 #### [facility] [address] [place], [address] CT TRANSFER OF OUTSIDE FILMS on 04-15-2025 CT TRANSFER OF OUTSIDE FILMS Outside images for comparison or treatment purposes, not interpreted by Radiologists. Normal [facility] Study Interpretation of outs galina studyon 04-15-2025 Outside images for comparison or treatment purposes, not interpreted by Radiologists. IMAGING Bedside Glucoseon 04-14-2025 FINGERSTICK GLU 128 mg/dL High 74-106 [facility] Comment on above: Result Comment: BONNIE GEMENT OF PATIENT CARE PER NURSING PROTOCOL Performed By: #### L 501.080 #### [facility] [address] [place], [address] FINGERSTICK GLU 127 mg/dL High 74-106 [facility] Comment on above: Result Comment: BONNIE GEMENT OF PATIENT CARE PER NURSING PROTOCOL Performed By: #### L 501.080 #### [facility] [address] [place], [address] Bedside Glucoseon 04-13-2025 FINGERSTICK GLU 162 mg/dL High 74-106 [facility] Comment on above: Result Comment: BONNIE GEMENT OF PATIENT CARE PER NURSING PROTOCOL Performed By: #### L 501.080 #### [facility] [address] [place], [address] FINGERSTICK GLU 142 mg/dL High 74-106 [facility] Comment on above: Result Comment: BONNIE GEMENT OF PATIENT CARE PER NURSING PROTOCOL Performed By: #### L 501.080 #### [facility] [address] [place], [address] FINGERSTICK GLU 169 mg/dL High 74-106 [facility] Comment on above: Result Comment: BONNIE GEMENT OF PATIENT CARE PER NURSING PROTOCOL Performed By: #### L 500.2500, L100.0100 #### [facility] [address] [place], [address] FINGERSTICK GLU 134 mg/dL High [facility]106 [facility] Comment on above: Result Comment: BONNIE GEMENT OF PATIENT CARE PER NURSING PROTOCOL Performed By: #### L 500.2500, L100.0100 #### [facility] [address] [place], [address] Bedside Glucoseon 04-12-2025 FINGERSTICK GLU 167 mg/dL High [address] [place] [address] Comment on above: Result Comment: BONNIE GEMENT OF PATIENT CARE PER NURSING PROTOCOL Performed By: #### L 500.2500, L100.0100 #### [facility] [address] [place], [address] FINGERSTICK GLU 175 mg/dL High [address] [place] [address] Comment on above: Result Comment: BONNIE GEMENT OF PATIENT CARE PER NURSING PROTOCOL Performed By: #### L 100.0100, L500.2500 #### [facility] [address] [place], [address] FINGERSTICK GLU 141 mg/dL High [address] [place] [address] Comment on above: Result Comment: BONNIE GEMENT OF PATIENT CARE PER NURSING PROTOCOL Performed By: #### L 501.080 #### [facility] [address] [place], [address] Bedside Glucoseon 5 FINGERSTICK GLU 171 mg/dL High [address] [place] [address] Comment on above: Result Comment: BONNIE GEMENT OF PATIENT CARE PER NURSING PROTOCOL Performed By: #### L 501.080 #### [facility] [address] [place], [address] FINGERSTICK GLU 145 mg/dL High -106 [facility] Comment on above: Result Comment: BONNIE GEMENT OF PATIENT CARE PER NURSING PROTOCOL Performed By: #### L 501.080 #### [facility] [address] [place], [address] FINGERSTICK GLU 172 mg/dL High 74-106 [facility] Comment on above: Result Comment: BONNIE GEMENT OF PATIENT CARE PER NURSING PROTOCOL Performed By: #### L 501.080 #### [facility] [address] [place], [address] FINGERSTICK GLU 151 mg/dL High 74-106 [facility] Comment on above: Result Comment: BONNIE GEMENT OF PATIENT CARE PER NURSING PROTOCOL Performed By: #### L 100.0100, L500.2500 #### [facility] [address] [place], [address] Urine Cultureon 04-11-2025 [facility] Klebsiella aerogenes [place] Count >100,000 Klebsiella aerogenes: REACTION Cefepime Islt MOHAN 1 cefTRIAXone Islt MOHAN 32 R Ciprofloxacin Islt MOHAN <=0.06 S Gentamicin Islt MOHAN <=1 S levoFLOXacin Islt MOHAN <=0.12 S Meropenem Islt MOHAN <=0.25 S Nitrofurantoin Islt MOHAN 64 I Pip+Tazo Islt MOHAN >=128 R TMP SMX Islt MOHAN <=20 S Normal [facility] Comment on above: Performed By: #### L 100.0100, L500.2500 #### [facility] [address] [place], [address] Bedside Glucoseon 04-10-2025 FINGERSTICK GLU 153 mg/dL High -106 [facility] Comment on above: Result Comment: BONNIE GEMENT OF PATIENT CARE PER NURSING PROTOCOL Performed By: #### L 501.080 #### [facility] [address] [place], [address] FINGERSTICK GLU 170 mg/dL High 74-106 [facility] Comment on above: Result Comment: BONNIE GEMENT OF PATIENT CARE PER NURSING PROTOCOL Performed By: #### L 100.0100, L500.2500 #### [facility] [address] [place], [address] FINGERSTICK GLU 128 mg/dL High 74-106 [facility] Comment on above: Result Comment: BONNIE GEMENT OF PATIENT CARE PER NURSING PROTOCOL Performed By: #### L 501.080 #### [facility] [address] [place], [address] FINGERSTICK GLU 151 mg/dL High 74-106 [facility] Comment on above: Result Comment: BONNIE GEMENT OF PATIENT CARE PER NURSING PROTOCOL Performed By: #### L 501.080 #### [facility] [address] [place], [address] Basic Metabolic Profile (BMP )on 04-09-2024 BUN/CRE 29.9 RATIO High 10-20 [facility] Comment on above: Performed By: #### L 500.2500, L100.0100 #### [facility] [address] [place], [address] Calcium [Mass/Vol] 9.5 mg/dL Normal 7.6-11.0 [facility] Comment on above: Performed By: #### L 500.2500, L100.0100 #### [facility] [address] [place], [address] Chloride [Moles/Vol] 95 mmol/L Low 98-108 [facility] Comment on above: Performed By: #### L 500.2500, L100.0100 #### [facility] [address] [place], [address] CO2 [Moles/Vol] 25.4 mmol/L Normal 21.0-32.0 [facility] Comment on above: Performed By: #### L 500.2500, L100.0100 #### [facility] [address] [place], [address] Creatinine [Mass/Vol] 0.47 mg/dL Low 0.70-1.20 [facility] Comment on above: Performed By: #### L 500.2500, L100.0100 #### [facility] [address] [place], [address] ECRCL 122.51 ml/min Normal 50-250 [facility] Comment on above: Performed By: #### L 500.2500, L100.0100 #### [facility] [address] [place], [address] GAP 13 Normal 5-15 [facility] Comment on above: Performed By: #### L 500.2500, L100.0100 #### [facility] [address] [place], [address] GFR/1.73 sq M.predicted among non-blacks MDRD (S/P/Bld) [Vol rate/Area] 138 mL/min/{1.73_m2} Normal >60 [facility] Comment on above: Result Comment: mL/m in/1.73m2 CKD-EPI Creatinine Equation (2020) Performed By: #### L 500.2500, L100.0100 #### [facility] [address] [place], [address] Glucose [Mass/Vol] 130 mg/dL High 70-99 [facility] Comment on above: Performed By: #### L 500.2500, L100.0100 #### [facility] [address] [place], [address] Potassium [Moles/Vol] 3.8 mmol/L Normal 3.3-5.1 [facility] Comment on above: Performed By: #### L 500.2500, L100.0100 #### [facility] [address] [place], [address] Sodium [Moles/Vol] 134 mmol/L Normal 133-145 [facility] Comment on above: Performed By: #### L 500.2500, L100.0100 #### [facility] [address] [place], [address] Urea nitrogen [Mass/Vol] 14 mg/dL Normal 4-19 [facility] Comment on above: Performed By: #### L 500.2500, L100.0100 #### [facility] [address] [place], [address] Bedside Glucoseon 04-09-2025 FINGERSTICK GLU 119 mg/dL High 74-106 [facility] Comment on above: Result Comment: BONNIE GEMENT OF PATIENT CARE PER NURSING PROTOCOL Performed By: #### L 100.0100, L500.2500 #### [facility] [address] [place], [address] FINGERSTICK GLU 157 mg/dL High 74-106 [facility] Comment on above: Result Comment: BONNIE GEMENT OF PATIENT CARE PER NURSING PROTOCOL Performed By: #### L 501.080 #### [facility] [address] [place], [address] FINGERSTICK GLU 135 mg/dL High 74-106 [facility] Comment on above: Result Comment: BONNIE GEMENT OF PATIENT CARE PER NURSING PROTOCOL Performed By: #### L 501.080 #### [facility] [address] [place], [address] CBC W/Diff, Automatedon 10- Absolute Lymph 1.46 X10 3/uL Normal 0.83-4.51 [facility] Comment on above: Performed By: #### L 500.2500, L100.0100 #### [facility] [address] [place], [address] Absolute Neut 7.5 X10 3/uL Normal 2.0-7.7 [facility] Comment on above: Performed By: #### L 500.2500, L100.0100 #### [facility] [address] [place], [address] Basophils/100 WBC (Bld) 0.4 % Normal 0-1 [facility] Comment on above: Performed By: #### L 500.2500, L100.0100 #### [facility] [address] [place], [address] Eosinophils/100 WBC (Bld) 0.1 % Normal 0-5 [facility] Comment on above: Performed By: #### L 500.2500, L100.0100 #### [facility] [address] [place], [address] Erythrocyte distribution width (RBC) [Ratio] 12.8 % Normal 11.6-14.6 [facility] Comment on above: Performed By: #### L 500.2500, L100.0100 #### [facility] [address] [place], [address] Hematocrit (Bld) [Volume fraction] 33.6 % Low 37-47 [facility] Comment on above: Performed By: #### L 500.2500, L100.0100 #### [facility] [address] [place], [address] Hemoglobin (Bld) [Mass/Vol] 11.4 g/dL Low 12.0-15.0 [facility] Comment on above: Performed By: #### L 500.2500, L100.0100 #### [facility] [address] [place], [address] IG% 1.100 High 0.0-0.9 [facility] Comment on above: Result Comment: IG% - Immature Granulocytes (promyelocytes, myelocytes and metamyelocytes) > 1% indicates that a LEFT SHIFT is Present. Performed By: #### L 500.2500, L100.0100 #### [facility] [address] [place], [address] Lymphocytes/100 WBC (Bld) 14.4 % Low 19-41 [facility] Comment on above: Performed By: #### L 500.2500, L100.0100 #### [facility] [address] [place], [address] MCH (RBC) [Entitic mass] 29.2 pg Normal 27.0-32.0 [facility] Comment on above: Performed By: #### L 500.2500, L100.0100 #### [facility] [address] [place], [address] MCHC (RBC) [Mass/Vol] 33.9 g/dL Normal 32-36 [facility] Comment on above: Performed By: #### L 500.2500, L100.0100 #### [facility] [address] [place], [address] MCV (RBC) [Entitic vol] 86.2 fL Normal 81-99 [facility] Comment on above: Performed By: #### L 500.2500, L100.0100 #### [facility] [address] [place], [address] Monocytes/100 WBC (Bld) 9.8 % Normal 0-10 [facility] Comment on above: Performed By: #### L 500.2500, L100.0100 #### [facility] [address] [place], [address] Neutrophils/100 WBC (Bld) 74.2 % High 47-70 [facility] Comment on above: Performed By: #### L 500.2500, L100.0100 #### [facility] [address] [place], [address] Nucleated RBC (Bld) [#/Vol] 0 10*3/uL Normal 0-5 [facility] Comment on above: Performed By: #### L 500.2500, L100.0100 #### [facility] [address] [place], [address] Platelet mean volume (Bld) [Entitic vol] 10.9 fL Normal 6.2-12.0 [facility] Comment on above: Performed By: #### L 500.2500, L100.0100 #### [facility] [address] [place], [address] Platelets (Bld) [#/Vol] 325 10*3/uL Normal 150-450 [facility] Comment on above: Performed By: #### L 500.2500, L100.0100 #### [facility] [address] [place], [address] RBC (Bld) [#/Vol] 3.90 10*6/uL Low 4.2-5.4 [facility] Comment on above: Performed By: #### L 500.2500, L100.0100 #### [facility] [address] [place], [address] RDW SD 39.9 fl Normal 35.1-43.9 [facility] Comment on above: Performed By: #### L 500.2500, L100.0100 #### [facility] [address] [place], [address] WBC (Bld) [#/Vol] 10.1 10*3/uL Normal 4.4-11.0 [facility] Comment on above: Performed By: #### L 500.2500, L100.0100 #### [facility] [address] [place], [address] COVID 19 AG RAPID (FABIO Brandon)on 04-09-2025 SARS-CoV-2 (COVID-19) RNA JOSE+probe Ql (Unsp [...] RAPID METHOD BinaxNow COVID19 Ag Card Normal [facility] Comment on above: Performed By: #### L 501.080 #### [facility] [address] [place], [place], [address] Chest PA and Lateralon 04-09 Chest PA and Lateral [facility] [address] [place], [place] [address] Chest PA and Lateral MR#: [id number] Acct: [id number] Name: KIMANI COHEN Rep #: [id number] : 2000 F 24 From: Serge Wheeler MD PCP: Dr. Yessenia Dixon MD Status: ADM IN Study: Chest PA and Lateral Date of Exam: 04/09/25 Exam# [id number] Ordering Dr: Benjy Gonzalez MD PROCEDURE: CHEST PA AND LATERAL 04/09/2025 REASON FOR EXAM: ASPIRATION PNEUMONIA TECHNIQUE: Procedure Code: RADCXR Modality: DX Procedure: CHEST PA AND LATERAL COMPARISON: None FINDINGS: Hardware: Right DOCUMENT CLERK shunt is seen along the right neck, right chest and upper abdomen. Heart: The heart size is normal. Mediastinum: The mediastinal contour is unremarkable. Lungs: The lungs are clear. Bones: The bones are unremarkable. RAD/Chest PA and Lateral IMPRESSION: No acute abnormality Reading Location: [id number] CC: Dr. Yessneia Dixon MD; Dr. Benjy Gonzalez MD [employer] Setter: Signed Normal [facility] RESPIRATORY PANEL MOLECULARo n 04-09-2025 RP PANEL ADENOVIRUS Not Detected INFLUENZA A Not Detected INFLUENZA A (SUBTYPE H1) Not Detected INFLUENZA A (SUBTYPE H3) Not Detected INFLUENZA B Not Detected HUMAN METAPHNEUMO Not Detected PARAINFLUENZA 1 Not Detected PARAINFLUENZA 2 Not Detected PARAINFLUENZA 3 Not Detected PARAINFLUENZA 4 Not Detected RHINOVIRUS Not Detected RSV A Not Detected RSV B Not Detected Normal [facility] Comment on above: Performed By: #### L 501.080 #### [facility] [address] [place], [address] Urinalysis, Completeon 04-09 AMORPHOUS 1+ PHOS Normal [facility] Comment on above: Order Comment: BLADD ER TAP Performed By: #### L 100.0100, L500.2500 #### [facility] [address] [place], [address] BACTERIA 3+ /hpf Normal None Seen [facility] Comment on above: Order Comment: BLADD ER TAP Performed By: #### L 100.0100, L500.2500 #### [facility] [address] [place], [address] WBC 0-5 SEEN Normal 0-5 [facility] Comment on above: Order Comment: BLADD ER TAP Performed By: #### L 100.0100, L500.2500 #### [facility] [address] [place], [address] EPI,SQUAMOUS 0 SEEN Normal 5-10 [facility] Comment on above: Order Comment: BLADD ER TAP Performed By: #### L 100.0100, L500.2500 #### [facility] [address] [place], [address] Mucus Ql (Urine sed) 0 SEEN Normal [facility] Comment on above: Order Comment: BLADD ER TAP Performed By: #### L 100.0100, L500.2500 #### [facility] [address] [place], [address] RBC 0 SEEN Normal 0-5 [facility] Comment on above: Order Comment: BLADD ER TAP Performed By: #### L 100.0100, L500.2500 #### [facility] [address] [place], [address] Abdomen Single View (Portabl e)on 04-08-2025 Abdomen Single View (Portable) [facility] Imaging Services [address] [place] [address] Abdomen Single View (Portable) MR#: [id number] Acct: [id number] Name: KIMANI COHEN Rep #: [id number] : 2000 F 24 From: Ayush Burger MD PCP: Dr. Yessenia Dixon MD Status: ADM IN Study: Abdomen Single View (Portable) Date of Exam: 1 Exam# [id number] Ordering Dr: Benjy Gonzalez MD PROCEDURE: ABDOMEN [...] pattern. Mild-moderate colonic stool burden. Reading Location: [id number] CC: Dr. Yessenia Dixon MD; Dr. Benjy Gonzalez MD [employer] Setter: Signed Normal [facility] Basic Metabolic Profile (BMP )on 04-08-2025 BUN/CRE 32.9 RATIO High 10-20 [facility] Comment on above: Performed By: #### L 500.2500, L100.0100 #### [facility] [address] [place], [address] Calcium [Mass/Vol] 9.5 mg/dL Normal 7.6-11.0 [facility] Comment on above: Performed By: #### L 500.2500, L100.0100 #### [facility] [address] [place], [address] Chloride [Moles/Vol] 98 mmol/L Normal 98-108 [facility] Comment on above: Performed By: #### L 500.2500, L100.0100 #### [facility] [address] [place], [address] CO2 [Moles/Vol] 25.4 mmol/L Normal 21.0-32.0 [facility] Comment on above: Performed By: #### L 500.2500, L100.0100 #### [facility] [address] [place], [address] Creatinine [Mass/Vol] 0.44 mg/dL Low 0.70-1.20 [facility] Comment on above: Performed By: #### L 500.2500, L100.0100 #### [facility] [address] [place], [address] ECRCL 130.86 ml/min Normal 50-250 [facility] Comment on above: Performed By: #### L 500.2500, L100.0100 #### [facility] [address] [place], [address] GAP 14 Normal 5-15 [facility] Comment on above: Performed By: #### L 500.2500, L100.0100 #### [facility] [address] [place], [address] GFR/1.73 sq M.predicted among non-blacks MDRD (S/P/Bld) [Vol rate/Area] 141 mL/min/{1.73_m2} Normal >60 [facility] Comment on above: Result Comment: mL/m in/1.73m2 CKD-EPI Creatinine Equation (2020) Performed By: #### L 500.2500, L100.0100 #### [facility] [address] [place], [address] Glucose [Mass/Vol] 124 mg/dL High 70-99 [facility] Comment on above: Performed By: #### L 500.2500, L100.0100 #### [facility] [address] [place], [address] Potassium [Moles/Vol] 4.0 mmol/L Normal 3.3-5.1 [facility] Comment on above: Performed By: #### L 500.2500, L100.0100 #### [facility] [address] [place], [address] Sodium [Moles/Vol] 137 mmol/L Normal 133-145 [facility] Comment on above: Performed By: #### L 500.2500, L100.0100 #### [facility] [address] [place], [address] Urea nitrogen [Mass/Vol] 14 mg/dL Normal 4-19 [facility] Comment on above: Performed By: #### L 500.2500, L100.0100 #### [facility] [address] [place], [address] Bedside Glucoseon 04-08-2025 FINGERSTICK GLU 155 mg/dL High 74-106 [facility] Comment on above: Result Comment: BONNIE GEMENT OF PATIENT CARE PER NURSING PROTOCOL Performed By: #### L 500.2500, L100.0100 #### [facility] [address] [place], [address] FINGERSTICK GLU 148 mg/dL High 74-106 [facility] Comment on above: Result Comment: BONNIE GEMENT OF PATIENT CARE PER NURSING PROTOCOL Performed By: #### L 500.2500, L100.0100 #### [facility] [address] [place], [address] FINGERSTICK GLU 128 mg/dL High 74-106 [facility] Comment on above: Result Comment: BONNIE AL OF PATIENT CARE PER NURSING PROTOCOL Performed By: #### L 501.080 #### [facility] [address] [place], [address] Brain/Head without Contrasto n 04-08-2025 Brain/Head without Contrast [facility] Imaging Services [address] [place] [address] Brain/Head without Contrast MR#: [id number] Acct: [id number] Name: KIMANI COHEN Rep #: [id number] : 2000 F 24 From: Jhonatan shelton MD PCP: Dr. Yessenia Dixon MD Status: REG CLI Study: Brain/Head without Contrast Date of Exam: 03/24 12/16 Exam# [id number] Ordering Dr: Benjy Gonzalez MD PROCEDURE: BRAIN/HEAD [...] mass effect at this time. Reading Location: [place] [address] CC: Dr. Yessenia Dixon MD; Dr. Benjy Gonzalez MD [employer] Setter: Signed Normal [facility] CBC W/Diff, Automatedon 03-24 Absolute Lymph 1.24 X10 3/uL Normal 0.83-4.51 [facility] Comment on above: Performed By: #### L 500.2500, L100.0100 #### [facility] [address] [place], [address] Absolute Neut 9.2 X10 3/uL High 2.0-7.7 [facility] Comment on above: Performed By: #### L 500.2500, L100.0100 #### [facility] [address] [place], [address] Basophils/100 WBC (Bld) 0.5 % Normal 0-1 [facility] Comment on above: Performed By: #### L 500.2500, L100.0100 #### [facility] [address] [place], [address] Eosinophils/100 WBC (Bld) 0.3 % Normal 0-5 [facility] Comment on above: Performed By: #### L 500.2500, L100.0100 #### [facility] [address] [place], [address] Erythrocyte distribution width (RBC) [Ratio] 13.0 % Normal 11.6-14.6 [facility] Comment on above: Performed By: #### L 500.2500, L100.0100 #### [facility] [address] [place], [address] Hematocrit (Bld) [Volume fraction] 34.6 % Low 37-47 [facility] Comment on above: Performed By: #### L 500.2500, L100.0100 #### [facility] [address] [place], [address] Hemoglobin (Bld) [Mass/Vol] 11.7 g/dL Low 12.0-15.0 [facility] Comment on above: Performed By: #### L 500.2500, L100.0100 #### [facility] [address] [place], [address] IG% 0.800 Normal 0.0-0.9 [facility] Comment on above: Result Comment: IG% - Immature Granulocytes (promyelocytes, myelocytes and metamyelocytes) > 1% indicates that a LEFT SHIFT is Present. Performed By: #### L 500.2500, L100.0100 #### [facility] [address] [place], [address] Lymphocytes/100 WBC (Bld) 10.8 % Low 19-41 [facility] Comment on above: Performed By: #### L 500.2500, L100.0100 #### [facility] [address] [facility] [place], [address] MCH (RBC) [Entitic mass] 29.8 pg Normal 27.0-32.0 [facility] Comment on above: Performed By: #### L 500.2500, L100.0100 #### [facility] [address] [place], [address] MCHC (RBC) [Mass/Vol] 33.8 g/dL Normal 32-36 [facility] Comment on above: Performed By: #### L 500.2500, L100.0100 #### [facility] [address] [place], [address] MCV (RBC) [Entitic vol] 88.0 fL Normal 81-99 [facility] Comment on above: Performed By: #### L 500.2500, L100.0100 #### [facility] [address] [place], [address] Monocytes/100 WBC (Bld) 6.8 % Normal 0-10 [facility] Comment on above: Performed By: #### L 500.2500, L100.0100 #### [facility] [address] [place], [address] Neutrophils/100 WBC (Bld) 80.8 % High 47-70 [facility] Comment on above: Performed By: #### L 500.2500, L100.0100 #### [facility] [address] [place], [address] Nucleated RBC (Bld) [#/Vol] 0 10*3/uL Normal 0-5 [facility] Comment on above: Performed By: #### L 500.2500, L100.0100 #### [facility] [address] [place], [address] Platelet mean volume (Bld) [Entitic vol] 11.3 fL Normal 6.2-12.0 [facility] Comment on above: Performed By: #### L 500.2500, L100.0100 #### [facility] [address] [place], [address] Platelets (Bld) [#/Vol] 267 10*3/uL Normal 150-450 [facility] Comment on above: Performed By: #### L 500.2500, L100.0100 #### [facility] [address] [place], [address] RBC (Bld) [#/Vol] 3.93 10*6/uL Low 4.2-5.4 [facility] Comment on above: Performed By: #### L 500.2500, L100.0100 #### [facility] [address] [place], [address] RDW SD 42.3 fl Normal 35.1-43.9 [facility] Comment on above: Performed By: #### L 500.2500, L100.0100 #### [facility] [address] [place], [address] WBC (Bld) [#/Vol] 11.4 10*3/uL High 4.4-11.0 [facility] Comment on above: Performed By: #### L 500.2500, L100.0100 #### [facility] [address] [place], [address] Bedside Glucoseon 04-07-2025 FINGERSTICK GLU 139 mg/dL High 74-106 [facility] Comment on above: Result Comment: BONNIE GEMENT OF PATIENT CARE PER NURSING PROTOCOL Performed By: #### L 501.080 #### [facility] [address] [place], [address] FINGERSTICK GLU 104 mg/dL Normal 74-106 [facility] Comment on above: Result Comment: BONNIE GEMENT OF PATIENT CARE PER NURSING PROTOCOL Performed By: #### L 500.2500, L100.0100 #### [facility] [address] [place], [address] CBC + DIFFon 04-02-2025 Baso # 0.03 x10EE3/UL Normal 0.00 - 0.10 [facility] Comment on above: Performed By: #### 2 83044 #### [facility],[address] [place] [address] Basophils/100 WBC (Bld) 0.5 % Normal 0.0 - 2.0 [facility] Comment on above: Performed By: #### 2 86826 #### [facility],[address] [place] [address] CBC + DIFF Normal [facility] Comment on above: Result Comment: CBC- COMPLETE BLOOD COUNT Performed By: #### 2 20788 #### [facility],[address] [place] [address] EO # 0.52 x10EE3/UL High 0.00 - 0.50 [facility] Comment on above: Performed By: #### 2 08049 #### [facility],[address] [place] [address] Eosinophils/100 WBC (Bld) 10.0 % High 0.0 - 7.0 [facility] Comment on above: Performed By: #### 2 76565 #### [place] [address] Erythrocyte distribution width (RBC) [Ratio] 13.9 % Normal 12.0 - 15.6 [facility] Comment on above: Performed By: #### 2 97254 #### [place] [address] Hematocrit (Bld) [Volume fraction] 33.3 % Low 34.0 - 46.0 [facility] Comment on above: Performed By: #### 2 31576 #### [place] [address] Hemoglobin (Bld) [Mass/Vol] 11.6 g/dL Low 12.0 - 16.0 [facility] Comment on above: Result Comment: VERI FIED BY REPEAT ANALYSISI Performed By: #### 2 82981 #### [place] [id number] Lymph # 1.24 x10EE3/UL Normal 0.80 - 2.80 [facility] Comment on above: Performed By: #### 2 72083 #### [place] [phone] Lymphocytes/100 WBC (Bld) 23.8 % Normal 20.0 - 45.0 [facility] Comment on above: Performed By: #### 2 93324 #### [place] [address] MANUAL DIFF N/A Normal [facility] Comment on above: Performed By: #### 2 13487 #### [facility],[address] [place] [address] MCH (RBC) [Entitic mass] 30 pg Normal 27 - 33 [facility] Comment on above: Performed By: #### 2 83553 #### [facility],[address] [place] [address] MCHC 35 X10 3 Normal 32 - 36 [facility] Comment on above: Performed By: #### 2 73237 #### [facility],[address] [place], [place] [phone] MCV (RBC) [Entitic vol] 87 fL Normal 80 - 99 [facility] Comment on above: Performed By: #### 2 90003 #### [facility],[address] [place] [address] [place] # 0.43 x10EE3/UL Normal 0.20 - 1.00 [facility] Comment on above: Performed By: #### 2 94449 #### [facility],[address] [place] [address] MONOS % 8.3 % Normal 0.0 - 10.0 [facility] Comment on above: Performed By: #### 2 31759 #### [facility],[address] [place], [place] [phone] Morphology Ibrahima (Bld) [Interp] N/A Normal [facility] Comment on above: Performed By: #### 2 34256 #### [facility],[address] [place] [address] Neut # 2.99 x10EE3/UL Normal 1.50 - 7.10 [facility] Comment on above: Performed By: #### 2 78678 #### [facility],[address] [place], [place] [phone] Neutrophils/100 WBC (Bld) 57.4 % Normal 46.0 - 76.0 [facility] Comment on above: Performed By: #### 2 79312 #### [facility],[address] [place], [place] [phone] PLATELET 278 x10EE3/UL Normal 150 - 450 [facility] Comment on above: Performed By: #### 2 48744 #### [facility],[address] [place] [address] Platelet mean volume (Bld) [Entitic vol] 9.4 fL Normal 6.6 - 10.5 [facility] Comment on above: Result Comment: AUTO MATED DIFFERENTIAL Performed By: #### 2 03946 #### [facility],[address] [place] [address] RBC 3.82 x 10EE6/UL Low 4.10 - 5.30 [facility] Comment on above: Performed By: #### 2 11511 #### [facility],[address] [place] [address] WBC 5.2 x 10EE3/UL Normal 4.5 - 10.8 [facility] Comment on above: Performed By: #### 2 09059 #### [facility],[address] [place] [address] CMP with eGFRon 04-02-2025 AGE 24 years Normal [facility] Comment on above: Performed By: #### 2 38813 ####[facility],[address] [place] [address] Albumin [Mass/Vol] 3.1 g/dL Low 3.4 - 5.0 [facility] Comment on above: Performed By: #### 2 56272 ####[facility],[address] [place], [place] [phone] Albumin/Globulin [Mass ratio] 0.9 {ratio} Normal 0.9 - 1.6 [facility] Comment on above: Performed By: #### 2 66120 ####[facility],[address] [place] [address] ALK PHOS 82 U/L Normal 46 - 116 [facility] Comment on above: Performed By: #### 2 49461 ####[facility],[address] [place] [address] ALT [Catalytic activity/Vol] 67 U/L High 16 - 63 [facility] Comment on above: Performed By: #### 2 19726 ####[facility],[address] [place] [address] Anion gap [Moles/Vol] 11 mmol/L Normal 10 - 20 [facility] Comment on above: Performed By: #### 2 01693 ####[facility],[address] [place] [address] AST [Catalytic activity/Vol] 32 U/L Normal 13 - 39 [facility] Comment on above: Performed By: #### 2 27308 ####[facility],[address] [place] [address] B/C RATIO 27 ratio Normal 0 - 30 [facility] Comment on above: Performed By: #### 2 17036 ####[place] [address] Bilirubin [Mass/Vol] 0.2 mg/dL Normal 0.2 - 1.0 [facility] Comment on above: Performed By: #### 2 33444 ####[facility],[address] [place] [address] Calcium [Mass/Vol] 9.3 mg/dL Normal 8.5 - 10.1 [facility] Comment on above: Performed By: #### 2 69343 ####[facility],[address] [place] [address] Chloride [Moles/Vol] 101 mmol/L Normal 98 - 107 [facility] Comment on above: Performed By: #### 2 85726 ####[facility],[address] [place] [address] CMP with eGFR Normal [facility] Comment on above: Result Comment: COMP REHENSIVE METABOLIC PANEL Performed By: #### 2 79433 ####[place] [address] CO2 [Moles/Vol] 33.0 mmol/L High 21.0 - 32.0 [facility] Comment on above: Performed By: #### 2 73717 ####[place] [address] Creatinine [Mass/Vol] 0.41 mg/dL Low 0.55 - 1.02 [facility] Comment on above: Performed By: #### 2 20901 ####[facility],[address] [place] [address] GFR/1.73 sq M.predicted among non-blacks MDRD (S/P/Bld) [Vol rate/Area] mL/min/{1.73_m2} Normal 60 - 999 [facility] Comment on above: Performed By: #### 2 46770 ####[place] [address] Result Comment: ACCO RDING TO THE NATIONAL KIDNEY DISEASE EDUCATION PROGRAM(NKDE), A NORMAL eGFR IS A VALUE GREATER THAN OR EQUAL TO 60 ML/MIN/1.73 SQ METERS. CHRONIC KIDNEY DISEASE: <60mL/MIN/1.73 SQ METERS KIDNEY FAILURE: <15mL/MIN/1.73 SQ METERS THIS TEST SHOULD ONLY BE USED FOR PATIENTS 18 YEARS OF AGE AND OLDER. Globulin (S) [Mass/Vol] 3.6 g/dL Normal 1.5 - 3.8 [facility] Comment on above: Performed By: #### 2 35895 ####[place] [address] Glucose [Mass/Vol] 123 mg/dL High 74 - 106 [facility] Comment on above: Performed By: #### 2 45727 ####[place] [phone] Potassium [Moles/Vol] 3.9 mmol/L Normal 3.5 - 5.1 [facility] Comment on above: Performed By: #### 2 04385 ####[facility],[address] [place] [address] Protein [Mass/Vol] 6.7 g/dL Normal 6.4 - 8.2 [facility] Comment on above: Performed By: #### 2 72720 ####[facility],[address] [place] [address] Sodium [Moles/Vol] 141 mmol/L Normal 136 - 145 [facility] Comment on above: Performed By: #### 2 45057 ####[facility],[address] [place], [place] [phone] Urea nitrogen [Mass/Vol] 11 mg/dL Normal 7 - 18 [facility] Comment on above: Performed By: #### 2 96203 ####[facility],[address] [place] [address]85 HEMOGLOBIN A1C (POM)on 04-02 Glucose [Mass/Vol] 91.1 mg/dL High 0.0 - 0.0 [facility] Comment on above: Result Comment: BLDo HEMOGLOBIN A1C REFERENCE RANGESBLDo Suggested Diagnosis HbA1c(%) HbA1C (mmol/mol Diabetic >/=6.5 >/=48 Prediabetes 5.7 - 6.4 39 - 47 Normal <5.7 <39 Performed By: #### 2 47915 #### [facility],[address] [place] [address]20 HbA1c (Bld) [Mass fraction] 4.8 % Normal 0.0 - 6.5 [facility] Comment on above: Performed By: #### 2 01553 #### [facility],[address] [place] [address] 12274 LIPID PROFILEon 04-02-2025 Cholesterol [Mass/Vol] 169 mg/dL Normal 0 - 240 [facility] Comment on above: Performed By: #### 2 19142 #### [facility],[address] [place] [address]270 Cholesterol in HDL [Mass/Vol] 48 mg/dL Normal 40 - 60 [facility] Comment on above: Performed By: #### 2 08508 #### [facility],[address] [place] [address] 96076 Cholesterol in LDL [Mass/Vol] 105 mg/dL Normal 0 - 129 [facility] Comment on above: Performed By: #### 2 91433 #### [facility],[address] [place] [address] 21663 Cholesterol.total/Ch olesterol in HDL [Mass ratio] 3.5 {ratio} Normal 0.0 - 5.0 [facility] Comment on above: Performed By: #### 2 64986 #### [facility],[address] [place] [address] 35133 Lipid 1996 panel Normal [facility] Comment on above: Result Comment: LIPI D PROFILE Performed By: #### 2 68797 #### [facility],[address] [place] [address] 88414 Triglyceride [Mass/Vol] 81 mg/dL Normal 0 - 150 [facility] Comment on above: Performed By: #### 2 09437 #### [facility],[address] [place] [address] 11503 CBC W Auto Differential pane l (Bld)on 03-31-2025 Basophils (Bld) [#/Vol] 0.06 x10*3/uL Normal 0.00-0.10 [facility] Comment on above: Performed By: #### 5 7021-8 ####CALE Roth ([id number])[facility] ([facility])[id number] [place] [address] Basophils/100 WBC (Bld) 0.9 % Normal 0.0-2.0 [facility] Comment on above: Performed By: #### 5 7021-8 ####CALE Roth ([id number])[facility] ([facility])[address] [place] [address] Eosinophils (Bld) [#/Vol] 0.42 x10*3/uL Normal 0.00-0.70 [facility] Comment on above: Performed By: #### 5 7021-8 ####CALE Roth ([id number])[facility] ([facility])[id number] [place] [address] Eosinophils/100 WBC (Bld) 6.6 % Normal 0.0-6.0 [facility] Comment on above: Performed By: #### 5 7021-8 ####CALE Roth ([id number])[facility] ([facility])[id number] [place] [address]29 Erythrocyte distribution width (RBC) [Ratio] 14.1 % Normal 11.5-14.5 [facility] Comment on above: Performed By: #### 5 7021-8 ####CALE Roth ([id number])[facility] ([facility])[id number] [place] [address] Hematocrit (Bld) [Volume fraction] 35.6 % Low 36.0-46.0 [facility] Comment on above: Performed By: #### 5 7021-8 ####CALE Roth ([id number])[facility] ([facility])[id number] [place] [address] 63767 Hemoglobin (Bld) [Mass/Vol] 11.4 g/dL Low 12.0-16.0 [facility] Comment on above: Performed By: #### 5 7021-8 ####CALE Roth ([id number])[facility] ([facility])[id number] [place] [address] 98911 Immature granulocytes (Bld) [#/Vol] 0.13 x10*3/uL Normal 0.00-0.70 [facility] Comment on above: Performed By: #### 5 7021-8 ####CALE Roth ([id number])[facility] ([facility])[address] [place] [address] Immature granulocytes/100 WBC (Bld) 2.0 % High 0.0-0.9 [facility] Comment on above: Result Comment: Aleisha ture Granulocyte Count (IG) includes promyelocytes, myelocytes and metamyelocytes but does not include bands. Percent differential counts (%) should be interpreted in the context of the absolute cell counts (cells/UL). Performed By: #### 5 7021-8 ####CALE Roth ([id number])[facility] ([facility])[address] [place] [address] Lymphocytes (Bld) [#/Vol] 1.56 x10*3/uL Normal 1.20-4.80 [facility] Comment on above: Performed By: #### 5 7021-8 ####CALE Roth ([id number])[facility] ([facility])[address] [place] [address] Lymphocytes/100 WBC (Bld) 24.5 % Normal 13.0-44.0 [facility] Comment on above: Performed By: #### 5 7021-8 ####CALE Roth ([id number])[facility] ([facility])[address] [place] [address] MCH (RBC) [Entitic mass] 29.7 pg Normal 26.0-34.0 [facility] Comment on above: Performed By: #### 5 7021-8 ####CALE Roth ([id number])[facility] ([facility])[address] [place] [address] MCHC (RBC) [Mass/Vol] 32.0 g/dL Normal 32.0-36.0 [facility] Comment on above: Performed By: #### 5 7021-8 ####CALE Roth ([id number])[facility] ([facility])[address] [place] [address] MCV (RBC) [Entitic vol] 93 fL Normal 80-100 [facility] Comment on above: Performed By: #### 5 7021-8 ####CALE Roth ([id number])[facility] ([facility])[address] [place] [address] Monocytes (Bld) [#/Vol] 0.59 x10*3/uL Normal 0.10-1.00 [facility] Comment on above: Performed By: #### 5 7021-8 ####CALE Roth ([id number])[facility] ([facility])[address] [place] [address] Monocytes/100 WBC (Bld) 9.3 % Normal 2.0-10.0 [facility] Comment on above: Performed By: #### 5 7021-8 ####CALE Roth ([id number])[facility] ([facility])[address] [place] [address] Neutrophils (Bld) [#/Vol] 3.60 x10*3/uL Normal 1.20-7.70 [facility] Comment on above: Result Comment: Perc ent differential counts (%) should be interpreted in the context of the absolute cell counts (cells/uL). Performed By: #### 5 7021-8 ####CALE Roth ([id number])[facility] ([facility])[address] [place] [address] Neutrophils/100 WBC (Bld) 56.7 % Normal 40.0-80.0 [facility] Comment on above: Performed By: #### 5 7021-8 ####CALE Roth ([id number])[facility] ([facility])[address] [place] [address] Nucleated RBC/100 WBC (Bld) [Ratio] 0.0 /100 WBCs Normal 0.0-0.0 [facility] Comment on above: Performed By: #### 5 7021-8 ####CALE Roth ([id number])[facility] ([facility])[address] [place] [address] Platelets (Bld) [#/Vol] 241 x10*3/uL Normal 150-450 [facility] Comment on above: Performed By: #### 5 7021-8 ####CALE Roth ([id number])[facility] ([facility])[address] [place] [address] RBC (Bld) [#/Vol] 3.84 x10*6/uL Low 4.00-5.20 [facility] Comment on above: Performed By: #### 5 7021-8 ####CALE Roth ([id number])[facility] ([facility])[address] [place] [address] WBC (Bld) [#/Vol] 6.4 x10*3/uL Normal 4.4-11.3 [facility] Comment on above: Performed By: #### 5 7021-8 ####CALE Roth ([id number])[facility] ([facility])[id number] [place] [address] 83215 Calcium.ionizedon 03-31-2025 Calcium.ionized (Bld) [Moles/Vol] 1.12 mmol/L Normal 1.1-1.33 [facility] Comment on above: Result Comment: The performance characteristics of ionized calcium testedin heparinized plasma or serum have [facility].Testing on heparinized plasma or serum is not approved [facility] FDA; however, such approval is not necessary. Performed By: #### 1 994-3 ####CALE Roth ([id number])[facility] ([facility])[id number] [place] [address] 01620 Glucose Test strip manual (B ld) [Mass/Vol]on 03-31-2025 Glucose [Mass/Vol] 139 mg/dL High 7499 [facility] Comment on above: Performed By: #### 2 341-6 ####CALE Roth ([id number])[facility] ([facility])[id number] [place] [address] Glucose [Mass/Vol] 148 mg/dL [facility] 7499 [facility] Comment on above: Performed By: #### 2 341-6 ####CALE Roth ([id number])[facility] ([facility])[address] [place] [address] Magnesiumon 03-31-2025 Magnesium [Mass/Vol] 2.14 mg/dL Normal 1.60-2.40 [facility] Comment on above: Performed By: #### 1 9123-9 ####CALE Roth ([id number])[facility] ([facility])[address] [place] [address] Renal function 2000 panelon 03-31-2025 Albumin BCP dye [Mass/Vol] 3.7 g/dL Normal 3.4-5.0 [facility] Comment on above: Performed By: #### 2 4362-6 ####CALE Roth ([id number])[facility] ([facility])[address]46 [place] [address] Anion gap [Moles/Vol] 14 mmol/L Normal 10-20 [facility] Comment on above: Performed By: #### 2 4362-6 ####CALE Roth ([id number])[facility] ([facility])[address]348 [place] [address] Calcium [Mass/Vol] 9.3 mg/dL Normal 8.6-10.6 [facility] Comment on above: Performed By: #### 2 4362-6 ####CALE Roth ([id number])[facility] ([facility])[address]286 [place] [address] Chloride [Moles/Vol] 100 mmol/L Normal 98-107 [facility] Comment on above: Performed By: #### 2 4362-6 ####CALE Roth ([id number])[facility] ([facility])[address]999 [place] [address] CO2 [Moles/Vol] 28 mmol/L Normal 21-32 [facility] Comment on above: Performed By: #### 2 4362-6 ####CALE Roth ([id number])[facility] ([facility])[address]22 [place] [address] Creatinine [Mass/Vol] 0.32 mg/dL Low 0.50-1.05 [facility] Comment on above: Performed By: #### 2 4362-6 ####CALE Roth ([id number])[facility] ([facility])[address]189 [place] [address] Glomerular filtration rate >90 Normal >60 [facility] Comment on above: Result Comment: Calc ulations of estimated GFR are performed using the 2020 CKD-EPI Study Refit equation without the race variable for the IDMS-Traceable creatinine methods.https://jasn.asnjournals.org/content//ASN .5251054097 Performed By: #### 2 4362-6 ####CALE Roth ([id number])[facility] ([facility])[address]133 [place] [address] Glucose [Mass/Vol] 139 mg/dL High 74-99 [facility] Comment on above: Performed By: #### 2 4362-6 ####CALE Roth ([id number])[facility] ([facility])[address]346 [place] [address] Phosphate [Mass/Vol] 3.6 mg/dL Normal 2.5-4.9 [facility] Comment on above: Performed By: #### 2 4362-6 ####CALE Roth ([id number])[facility] ([facility])[address]26 [place] [address] Potassium [Moles/Vol] 3.6 mmol/L Normal 3.5-5.3 [facility] Comment on above: Performed By: #### 2 4362-6 ####CALE CAI L ([id number])[facility] ([facility])[address]310 [place] [address] Sodium [Moles/Vol] 138 mmol/L Normal 136-145 [facility] Comment on above: Performed By: #### 2 4362-6 ####CALE Roth ([id number])[facility] ([facility])[address]370 [place] [address] Urea nitrogen [Mass/Vol] 10 mg/dL Normal 6-23 [facility] Comment on above: Performed By: #### 2 4362-6 ####CALE Roth ([id number])[facility] ([facility])[address]395 [place] [address] CBC W Auto Differential pane l (Bld)on 03-30-2025 Basophils (Bld) [#/Vol] 0.06 x10*3/uL Normal 0.00-0.10 [facility] Comment on above: Performed By: #### 5 7021-8 ####CALE Roth ([id number])[facility] ([facility])[address] [place] [address] Basophils/100 WBC (Bld) 0.7 % Normal 0.0-2.0 [facility] Comment on above: Performed By: #### 5 7021-8 ####CALE Roth ([id number])[facility] ([facility])[id number] [place] [address] Eosinophils (Bld) [#/Vol] 0.33 x10*3/uL Normal 0.00-0.70 [facility] Comment on above: Performed By: #### 5 7021-8 ####CALE Roth ([id number])[facility] ([facility])[address]190 [place] [address] Eosinophils/100 WBC (Bld) 3.7 % Normal 0.0-6.0 [facility] Comment on above: Performed By: #### 5 7021-8 ####CALE Roth ([id number])[facility] ([facility])[address] [place] [address] Erythrocyte distribution width (RBC) [Ratio] 14.1 % Normal 11.5-14.5 [facility] Comment on above: Performed By: #### 5 7021-8 ####CALE Roth ([id number])[facility] ([facility])15252 [place] [address] Hematocrit (Bld) [Volume fraction] 37.3 % Normal 36.0-46.0 [facility] Comment on above: Performed By: #### 5 7021-8 ####CALE Roth ([id number])[facility] ([facility])59129 [place] [address] Hemoglobin (Bld) [Mass/Vol] 12.2 g/dL Normal 12.0-16.0 [facility] Comment on above: Performed By: #### 5 7021-8 ####CALE Roth ([id number])[facility] ([facility])[id number] [place] [address] Immature granulocytes (Bld) [#/Vol] 0.16 x10*3/uL Normal 0.00-0.70 [facility] Comment on above: Performed By: #### 5 7021-8 ####CALE Roth ([id number])[facility] ([facility])[id number] [place] [address] Immature granulocytes/100 WBC (Bld) 1.8 % High 0.0-0.9 [facility] Comment on above: Result Comment: Aleisha ture Granulocyte Count (IG) includes promyelocytes, myelocytes and metamyelocytes but does not include bands. Percent differential counts (%) should be interpreted in the context of the absolute cell counts (cells/UL). Performed By: #### 5 7021-8 ####CALE Roth ([id number])[facility] ([facility])08361 [place] [address] Lymphocytes (Bld) [#/Vol] 1.24 x10*3/uL Normal 1.20-4.80 [facility] Comment on above: Performed By: #### 5 7021-8 ####CALE CAI L ([id number])[facility] ([facility])[address]90 [place] [address] Lymphocytes/100 WBC (Bld) 14.1 % Normal 13.0-44.0 [facility] Comment on above: Performed By: #### 5 7021-8 ####CALE Roth ([id number])[facility] ([facility])[address]60 [place] [address] MCH (RBC) [Entitic mass] 30.3 pg Normal 26.0-34.0 [facility] Comment on above: Performed By: #### 5 7021-8 ####CALE Roth ([id number])[facility] ([facility])[address] [place] [address]15[address] MCHC (RBC) [Mass/Vol] 32.7 g/dL Normal 32.0-36.0 [facility] Comment on above: Performed By: #### 5 7021-8 ####CALE Roth ([id number])[facility] ([facility])[id number] [place] [address] MCV (RBC) [Entitic vol] 93 fL Normal 80-100 [facility] Comment on above: Performed By: #### 5 7021-8 ####CALE Roth ([id number])[facility] ([facility])[id number] [place] [address] Monocytes (Bld) [#/Vol] 0.70 x10*3/uL Normal 0.10-1.00 [facility] Comment on above: Performed By: #### 5 7021-8 ####CALE Roth ([id number])[facility] ([facility])[address]29 [place] [address] Monocytes/100 WBC (Bld) 7.9 % Normal 2.0-10.0 [facility] Comment on above: Performed By: #### 5 7021-8 ####CALE Roth ([id number])[facility] ([facility])[address] [place] [address] Neutrophils (Bld) [#/Vol] 6.32 x10*3/uL Normal 1.20-7.70 [facility] Comment on above: Result Comment: Perc ent differential counts (%) should be interpreted in the context of the absolute cell counts (cells/uL). Performed By: #### 5 7021-8 ####CALE Roth ([id number])[facility] ([facility])[address]191 [place] [address] Neutrophils/100 WBC (Bld) 71.8 % Normal 40.0-80.0 [facility] Comment on above: Performed By: #### 5 7021-8 ####CALE Roth ([id number])[facility] ([facility])[id number] [place] [address] 99[address] Nucleated RBC/100 WBC (Bld) [Ratio] 0.0 /100 WBCs Normal 0.0-0.0 [facility] Comment on above: Performed By: #### 5 7021-8 ####CALE Roth ([id number])[facility] ([facility])[id number] [place] [address]28 Platelets (Bld) [#/Vol] 236 x10*3/uL Normal 150-450 [facility] Comment on above: Performed By: #### 5 7021-8 ####CALE Roth ([id number])[facility] ([facility])[id number] [place] [address] 68897 RBC (Bld) [#/Vol] 4.03 x10*6/uL Normal 4.00-5.20 [facility] Comment on above: Performed By: #### 5 7021-8 ####CALE Roth ([id number])[facility] ([facility])[id number] [place] [address]00 WBC (Bld) [#/Vol] 8.8 x10*3/uL Normal 4.4-11.3 [facility] Comment on above: Performed By: #### 5 7021-8 ####CALE Roth ([id number])[facility] ([facility])[address]08 [place] [address] Glucose Test strip manual (B ld) [Mass/Vol]on 03-30-2025 Glucose [Mass/Vol] 130 mg/dL High 74-99 [facility] Comment on above: Performed By: #### 2 341-6 ####CALE Roth ([id number])[facility] ([facility])[address]2699 [place] [address] Glucose [Mass/Vol] 127 mg/dL High -[address] [place] [address] Comment on above: Performed By: #### 2 341-6 ####CALE Roth ([id number])[facility] ([facility])[id number] [place] [address] Glucose [Mass/Vol] 133 mg/dL High [address] [place] [address] Comment on above: Performed By: #### 2 341-6 ####CALE Roth ([id number])[facility] ([facility])[id number] [place] [address] 645[address] Glucose [Mass/Vol] 120 mg/dL High [address] [place] [address] Comment on above: Performed By: #### 2 341-6 ####CALE Roth ([id number])[facility] ([facility])[id number] [place] [address] 07714 Glucose [Mass/Vol] 119 mg/dL High [address] [place] [address] Comment on above: Performed By: #### 2 341-6 ####CALE Roth ([id number])[facility] ([facility])[id number] [place] [address]89[address] Magnesiumon 03-30-2025 Magnesium [Mass/Vol] 2.12 mg/dL Normal 1.60-2.40 [facility] Comment on above: Performed By: #### 1 9123-9 ####CALE Roth ([id number])[facility] ([facility])[id number] [place] [address] 96964 Renal function 2000 panelon 03-30-2025 Albumin BCP dye [Mass/Vol] 3.8 g/dL Normal 3.4-5.0 [facility] Comment on above: Performed By: #### 2 4362-6 ####CALE Roth ([id number])[facility] ([facility])[address]106 [facility] [place] [address] Anion gap [Moles/Vol] 13 mmol/L Normal 10-20 [facility] Comment on above: Performed By: #### 2 4362-6 ####CALE RUTLEDGEER L ([id number])[facility] ([facility])30653 [place] [address] Calcium [Mass/Vol] 9.4 mg/dL Normal 8.6-10.6 [facility] Comment on above: Performed By: #### 2 4362-6 ####CALE PARKERTZER L ([id number])[facility] ([facility])[address]1590 [place] [address] Chloride [Moles/Vol] 99 mmol/L Normal 98-107 [facility] Comment on above: Performed By: #### 2 4362-6 ####CALE TOSCANOMOTZER L ([id number])[facility] ([facility])[address]3521 [place] [address] CO2 [Moles/Vol] 29 mmol/L Normal 21-32 [facility] Comment on above: Performed By: #### 2 4362-6 ####CALE CAI L ([id number])[facility] ([facility])72523 [place] [address] Creatinine [Mass/Vol] 0.29 mg/dL Low 0.50-1.05 [facility] Comment on above: Performed By: #### 2 4362-6 ####CALE PARKERTZER L ([id number])[facility] ([facility])05143 [place] [address] Glomerular filtration rate >90 Normal >60 [facility] Comment on above: Result Comment: Calc ulations of estimated GFR are performed using the 2020 CKD-EPI Study Refit equation without the race variable for the IDMS-Traceable creatinine methods.https://jasn.asnjournals.org/content//ASN .1925984585 Performed By: #### 2 4362-6 ####CALE Roth ([id number])[facility] ([facility])68638 [place] [address] Glucose [Mass/Vol] 130 mg/dL High 74-99 [facility] Comment on above: Performed By: #### 2 4362-6 ####CALE Roth ([id number])[facility] ([facility])17469 [place] [address] Phosphate [Mass/Vol] 3.3 mg/dL Normal 2.5-4.9 [facility] Comment on above: Performed By: #### 2 4362-6 ####CALE Roth ([id number])[facility] ([facility])14954 [place] [address] Potassium [Moles/Vol] 3.3 mmol/L Low 3.5-5.3 [facility] Comment on above: Performed By: #### 2 4362-6 ####CALE Roth ([id number])[facility] ([facility])85051 [place] [address] Sodium [Moles/Vol] 138 mmol/L Normal 136-145 [facility] Comment on above: Performed By: #### 2 4362-6 ####CALE Roth ([id number])[facility] ([facility])12810 [place] [address] Urea nitrogen [Mass/Vol] 11 mg/dL Normal 6-23 [facility] Comment on above: Performed By: #### 2 4362-6 ####CALE Roth ([id number])[facility] ([facility])[address]779 [place] [address] Bacteriaon 03-29-2025 Bacteria identified Cx Nom (U) Normal [facility] Comment on above: Performed By: #### 6 30-4 ####CALE Roth ([id number])[facility] ([facility])[address]05 [place] [address] CBC W Auto Differential pane l (Bld)on 03-29-2025 Basophils (Bld) [#/Vol] 0.05 x10*3/uL Normal 0.00-0.10 [facility] Comment on above: Performed By: #### 5 7021-8 ####CALE Roth ([id number])[facility] ([facility])35524 [place] [address] Basophils/100 WBC (Bld) 0.5 % Normal 0.0-2.0 [facility] Comment on above: Performed By: #### 5 7021-8 ####CALE Roth ([id number])[facility] ([facility])98303 [place] [address] Eosinophils (Bld) [#/Vol] 0.14 x10*3/uL Normal 0.00-0.70 [facility] Comment on above: Performed By: #### 5 7021-8 ####CALE Roth ([id number])[facility] ([facility])21555 [place] [address] Eosinophils/100 WBC (Bld) 1.3 % Normal 0.0-6.0 [facility] Comment on above: Performed By: #### 5 7021-8 ####CALE Roth ([id number])[facility] ([facility])03217 [place] [address] Erythrocyte distribution width (RBC) [Ratio] 14.2 % Normal 11.5-14.5 [facility] Comment on above: Performed By: #### 5 7021-8 ####CALE Roth ([id number])[facility] ([facility])33874 [place] [address] Hematocrit (Bld) [Volume fraction] 32.9 % Low 36.0-46.0 [facility] Comment on above: Performed By: #### 5 7021-8 ####CALE Roth ([id number])[facility] ([facility])32953 [place] [address] Hemoglobin (Bld) [Mass/Vol] 11.3 g/dL Low 12.0-16.0 [facility] Comment on above: Performed By: #### 5 7021-8 ####CALE Roth ([id number])[facility] ([facility])55602 [place] [address] Immature granulocytes (Bld) [#/Vol] 0.13 x10*3/uL Normal 0.00-0.70 [facility] Comment on above: Performed By: #### 5 7021-8 ####CALE Roth ([id number])[facility] ([facility])48751 [place] [address] Immature granulocytes/100 WBC (Bld) 1.2 % High 0.0-0.9 [facility] Comment on above: Result Comment: Aleisha ture Granulocyte Count (IG) includes promyelocytes, myelocytes and metamyelocytes but does not include bands. Percent differential counts (%) should be interpreted in the context of the absolute cell counts (cells/UL). Performed By: #### 5 7021-8 ####CALE Roth ([id number])[facility] ([facility])28042 [place] [address] Lymphocytes (Bld) [#/Vol] 1.21 x10*3/uL Normal 1.20-4.80 [facility] Comment on above: Performed By: #### 5 7021-8 ####CALE Roth ([id number])[facility] ([facility])[address]122 [place] [address] Lymphocytes/100 WBC (Bld) 10.9 % Normal 13.0-44.0 [facility] Comment on above: Performed By: #### 5 7021-8 ####CALE Roth ([id number])[facility] ([facility])[address]123 [place] [address] MCH (RBC) [Entitic mass] 30.5 pg Normal 26.0-34.0 [facility] Comment on above: Performed By: #### 5 7021-8 ####CALE Roth ([id number])[facility] ([facility])[address]11 [place] [address] MCHC (RBC) [Mass/Vol] 34.3 g/dL Normal 32.0-36.0 [facility] Comment on above: Performed By: #### 5 7021-8 ####CALE Roth ([id number])[facility] ([facility])64672 [place] [address] MCV (RBC) [Entitic vol] 89 fL Normal 80-100 [facility] Comment on above: Performed By: #### 5 7021-8 ####CALE Roth ([id number])[facility] ([facility])[address]19 [place] [address] Monocytes (Bld) [#/Vol] 0.75 x10*3/uL Normal 0.10-1.00 [facility] Comment on above: Performed By: #### 5 7021-8 ####CALE Roth ([id number])[facility] ([facility])[address]85 [place] [address] Monocytes/100 WBC (Bld) 6.8 % Normal 2.0-10.0 [facility] Comment on above: Performed By: #### 5 7021-8 ####CALE Roth ([id number])[facility] ([facility])[address]90 [place] [address] Neutrophils (Bld) [#/Vol] 8.79 x10*3/uL High 1.20-7.70 [facility] Comment on above: Result Comment: Perc ent differential counts (%) should be interpreted in the context of the absolute cell counts (cells/uL). Performed By: #### 5 7021-8 ####CALE Roth ([id number])[facility] ([facility])[address]11 [place] [address] Neutrophils/100 WBC (Bld) 79.3 % Normal 40.0-80.0 [facility] Comment on above: Performed By: #### 5 7021-8 ####CALE Roth ([id number])[facility] ([facility])61428 [place] [address] Nucleated RBC/100 WBC (Bld) [Ratio] 0.0 /100 WBCs Normal 0.0-0.0 [facility] Comment on above: Performed By: #### 5 7021-8 ####CALE Roth ([id number])[facility] ([facility])28679 [place] [address] Platelets (Bld) [#/Vol] 236 x10*3/uL Normal 150-450 [facility] Comment on above: Performed By: #### 5 7021-8 ####CALE Roth ([id number])[facility] ([facility])[address]759 [place] [address] RBC (Bld) [#/Vol] 3.71 x10*6/uL Low 4.00-5.20 [facility] Comment on above: Performed By: #### 5 7021-8 ####CALE Roth ([id number])[facility] ([facility])[address] [place] [address] WBC (Bld) [#/Vol] 11.1 x10*3/uL Normal 4.4-11.3 [facility] Comment on above: Performed By: #### 5 7021-8 ####CALE Roth ([id number])[facility] ([facility])[address] [place] [address] CT HEAD WO IV CONTRASTon CT HEAD WO IV CONTRAST Normal [facility] Calcium.ionizedon 03-29-2025 Calcium.ionized (Bld) [Moles/Vol] 1.10 mmol/L Normal 1.1-1.33 [facility] Comment on above: Result Comment: The performance characteristics of ionized calcium testedin heparinized plasma or serum have [facility].Testing on heparinized plasma or serum is not approved by[facility]; however, such approval is not necessary. Performed By: #### 1 994-3 ####CALE Roth ([id number])[facility] ([facility])[address] [place] [address] Glucose Test strip manual (B ld) [Mass/Vol]on 03-29-2025 Glucose [Mass/Vol] 111 mg/dL High [address] [place] [address] Comment on above: Performed By: #### 2 341-6 ####CALE Roth ([id number])[facility] ([facility])[id number] [place] [address] Glucose [Mass/Vol] 122 mg/dL High [address] [place] [address] Comment on above: Performed By: #### 2 341-6 ####CALE Roth ([id number])[facility] ([facility])[address] [place] [address] Glucose [Mass/Vol] 130 mg/dL High [address] [place] [address] Comment on above: Performed By: #### 2 341-6 ####CALE Roth ([id number])[facility] ([facility])[id number] [place] [address] Glucose [Mass/Vol] 138 mg/dL High [address] [place] [address] Comment on above: Performed By: #### 2 341-6 ####CALE Roth ([id number])[facility] ([facility])[address] [place] [address] Magnesiumon 03-29-2025 Magnesium [Mass/Vol] 2.06 mg/dL Normal 1.60-2.40 [facility] Comment on above: Performed By: #### 1 9123-9 ####CALE Roth ([id number])[facility] ([facility])[id number] [place] [address] RBC shape Nom (Bld)on 2024 RBC morphology finding Nom (Bld) No significant RBC morphology present Normal [facility] Comment on above: Performed By: #### 1 8225-3 ####CALE Roth ([id number])[facility] ([facility])[address] [place] [address] Renal function 2000 panelon 03-29-2025 Albumin BCP dye [Mass/Vol] 3.7 g/dL Normal 3.4-5.0 [facility] Comment on above: Performed By: #### 2 4362-6 ####CALE Roth ([id number])[facility] ([facility])[address] [place] [address] Anion gap [Moles/Vol] 11 mmol/L Normal 10-20 [facility] Comment on above: Performed By: #### 2 4362-6 ####CALE Roth ([id number])[facility] ([facility])[address] [place] [address] Calcium [Mass/Vol] 9.3 mg/dL Normal 8.6-10.6 [facility] Comment on above: Performed By: #### 2 4362-6 ####CALE Roth ([id number])[facility] ([facility])[address] [place] [address] Chloride [Moles/Vol] 98 mmol/L Normal 98-107 [facility] Comment on above: Performed By: #### 2 4362-6 ####CALE Roth ([id number])[facility] ([facility])[address] [place] [address] CO2 [Moles/Vol] 32 mmol/L Normal 21-32 [facility] Comment on above: Performed By: #### 2 4362-6 ####CALE Roth ([id number])[facility] ([facility])[address] [place] [address] Creatinine [Mass/Vol] 0.32 mg/dL Low 0.50-1.05 [facility] Comment on above: Performed By: #### 2 4362-6 ####CALE Roth ([id number])[facility] ([facility])[address] [place] [address] Glomerular filtration rate >90 Normal >60 [facility] Comment on above: Result Comment: Calc ulations of estimated GFR are performed using the 2020 CKD-EPI Study Refit equation without the race variable for the IDMS-Traceable creatinine methods.https://jasn.asnjournals.org/content/early/ASN .7146398529 Performed By: #### 2 4362-6 ####CALE Roth ([id number])[facility] ([facility])[address] [place] [address] Glucose [Mass/Vol] 134 mg/dL High 74-99 [facility] Comment on above: Performed By: #### 2 4362-6 ####CALE Roth ([id number])[facility] ([facility])[address] [place] [address] Phosphate [Mass/Vol] 3.0 mg/dL Normal 2.5-4.9 [facility] Comment on above: Performed By: #### 2 4362-6 ####CALE Roth ([id number])[facility] ([facility])[address] [place] [address] Potassium [Moles/Vol] 3.8 mmol/L Normal 3.5-5.3 [facility] Comment on above: Performed By: #### 2 4362-6 ####CALE Roth ([id number])[facility] ([facility])[address] [place] [address] Sodium [Moles/Vol] 137 mmol/L Normal 136-145 [facility] Comment on above: Performed By: #### 2 4362-6 ####CALE CAI L ([id number])[facility] ([facility])[address] [place] [address] Urea nitrogen [Mass/Vol] 12 mg/dL Normal 6-23 [facility] Comment on above: Performed By: #### 2 4362-6 ####CALE CAI L ([id number])[facility] ([facility])[address] [place] [address] Urinalysis complete W Reflex Culture panel (U)on 03-29-2025 Appearance (U) Turbid Normal Clear [facility] Comment on above: Performed By: #### 5 8077-9 ####CALE Roth ([id number])[facility] ([facility])[id number] [place] [address] Bilirubin (U) [Mass/Vol] Negative Normal NEGATIVE [facility] Comment on above: Performed By: #### 5 8077-9 ####CALE Roth ([id number])[facility] ([facility])[address] [place] [address] Color (U) Yellow Normal Light-Yello w, Yellow, Dark-Yellow [facility] Comment on above: Performed By: #### 5 8077-9 ####CALE Roth ([id number])[facility] ([facility])[address] [place] [address]58 Glucose Auto test strip (U) [Mass/Vol] Normal Normal Normal [facility] Comment on above: Performed By: #### 5 8077-9 ####CALE CAI L ([id number])[facility] ([facility])[address] [place] [address] Ketones (U) [Mass/Vol] Negative Normal NEGATIVE [facility] Comment on above: Performed By: #### 5 8077-9 ####CALE Roth ([id number])[facility] ([facility])[id number] [place] [address]2497 Leukocyte esterase Auto test strip Ql (U) 25 Joe/uL Abnormal NEGATIVE [facility] Comment on above: Performed By: #### 5 8077-9 ####CALE CIA L ([id number])[facility] ([facility])[address] [place] [address] Nitrite Auto test strip Ql (U) Negative Normal NEGATIVE [facility] Comment on above: Performed By: #### 5 8077-9 ####CALE CAI L ([id number])[facility] ([facility])[address] [place] [address] 39472 pH (U) 6.5 [pH] Normal 5.0, 5.5, 6.0, 6.5, 7.0, 7.5, 8.0 [facility] Comment on above: Performed By: #### 5 8077-9 ####CALE Roth ([id number])[facility] ([facility])[address] [place] [address]37 Protein (U) [Mass/Vol] 10 (TRACE) Normal NEGATIVE, 10 (TRACE), 20 (TRACE) [facility] Comment on above: Performed By: #### 5 8077-9 ####CALE Roth ([id number])[facility] ([facility])[address] [place] [address] RBC (U) [#/Vol] Negative Normal NEGATIVE [facility] Comment on above: Performed By: #### 5 8077-9 ####CALE Roth ([id number])[facility] ([facility])[address] [place] [address]60 Specific gravity (U) [Rel density] 1.023 Normal 1.005-1.035 [facility] Comment on above: Performed By: #### 5 8077-9 ####CALE Roth ([id number])[facility] ([facility])[id number] [place] [address]133 Urobilinogen (U) [Mass/Vol] Normal Normal Normal [facility] Comment on above: Performed By: #### 5 8077-9 ####CALE Roth ([id number])[facility] ([facility])[id number] [place] [address] Urinalysis microscopic panel Auto Ql (U)on 03-29-2025 Bacteria Auto (Urine sed) [#/Area] 1+ /HPF Abnormal NONE SEEN [facility] Comment on above: Performed By: #### 5 3315-8 ####CALE Roth ([id number])[facility] ([facility])[address] [place] [address] 45234 Epithelial cells.squamous Auto (Urine sed) [#/Area] 1-9 (SPARSE) Normal Reference range not established . [facility] Comment on above: Performed By: #### 5 3315-8 ####CALE Roth ([id number])[facility] ([facility])[address] [place] [address] Mucus Auto (Urine sed) [#/Area] FEW Normal Reference range not established . [facility] Comment on above: Performed By: #### 5 3315-8 ####CALE Roth ([id number])[facility] ([facility])[address]41 [place] [address] RBC Auto (Urine sed) [#/Area] 3-5 Normal NONE, 1-2, 3-5 [facility] Comment on above: Performed By: #### 5 3315-8 ####CALE Roth ([id number])[facility] ([facility])[address]55 [place] [address] WBC Auto (Urine sed) [#/Area] 1-5 Normal 1-5, NONE [facility] Comment on above: Performed By: #### 5 3315-8 ####CALE Roth ([id number])[facility] ([facility])[address]86 [place] [address] Yeast.budding Computer assisted (U) [#/Area] PRESENT Abnormal NONE [facility] Comment on above: Performed By: #### 5 3315-8 ####CALE Roth ([id number])[facility] ([facility])[address]128 [place] [address] XR ABDOMEN 1 VIEWon 03-29-20 XR ABDOMEN 1 VIEW Normal [facility] CBC W Auto Differential pane l (Bld)on 03-28-2025 Basophils (Bld) [#/Vol] 0.04 x10*3/uL Normal 0.00-0.10 [facility] Comment on above: Performed By: #### 5 7021-8 ####CALE Roth ([id number])[facility] ([facility])[address] [place] [address] Basophils/100 WBC (Bld) 0.8 % Normal 0.0-2.0 [facility] Comment on above: Performed By: #### 5 7021-8 ####CALE Roth ([id number])[facility] ([facility])[id number] [place] [address]48 Eosinophils (Bld) [#/Vol] 0.13 x10*3/uL Normal 0.00-0.70 [facility] Comment on above: Performed By: #### 5 7021-8 ####CALE Roth ([id number])[facility] ([facility])[id number] [place] [address] 37980 Eosinophils/100 WBC (Bld) 2.6 % Normal 0.0-6.0 [facility] Comment on above: Performed By: #### 5 7021-8 ####CALE Roth ([id number])[facility] ([facility])[address] [place] [address] Erythrocyte distribution width (RBC) [Ratio] 14.3 % Normal 11.5-14.5 [facility] Comment on above: Performed By: #### 5 7021-8 ####CALE Roth ([id number])[facility] ([facility])[id number] [place] [address]1028 Hematocrit (Bld) [Volume fraction] 34.6 % Low 36.0-46.0 [facility] Comment on above: Performed By: #### 5 7021-8 ####CALE Roth ([id number])[facility] ([facility])[id number] [place] [address] 25803 Hemoglobin (Bld) [Mass/Vol] 11.5 g/dL Low 12.0-16.0 [facility] Comment on above: Performed By: #### 5 7021-8 ####CALE Roth ([id number])[facility] ([facility])[id number] [place] [address] 17413 Immature granulocytes (Bld) [#/Vol] 0.15 x10*3/uL Normal 0.00-0.70 [facility] Comment on above: Performed By: #### 5 7021-8 ####CALE Roth ([id number])[facility] ([facility])[address]28 [place] [address] Immature granulocytes/100 WBC (Bld) 3.0 % High 0.0-0.9 [facility] Comment on above: Result Comment: Aleisha ture Granulocyte Count (IG) includes promyelocytes, myelocytes and metamyelocytes but does not include bands. Percent differential counts (%) should be interpreted in the context of the absolute cell counts (cells/UL). Performed By: #### 5 7021-8 ####CALE Roth ([id number])[facility] ([facility])[id number] [place] [address] 57348 Lymphocytes (Bld) [#/Vol] 1.25 x10*3/uL Normal 1.20-4.80 [facility] Comment on above: Performed By: #### 5 7021-8 ####CALE Roth ([id number])[facility] ([facility])[address]66 [place] [address] Lymphocytes/100 WBC (Bld) 24.6 % Normal 13.0-44.0 [facility] Comment on above: Performed By: #### 5 7021-8 ####CALE Roth ([id number])[facility] ([facility])[address]43 [place] [address] MCH (RBC) [Entitic mass] 30.0 pg Normal 26.0-34.0 [facility] Comment on above: Performed By: #### 5 7021-8 ####CALE Roth ([id number])[facility] ([facility])[address]51 [place] [address] MCHC (RBC) [Mass/Vol] 33.2 g/dL Normal 32.0-36.0 [facility] Comment on above: Performed By: #### 5 7021-8 ####CALE Roth ([id number])[facility] ([facility])[address]271 [place] [address] MCV (RBC) [Entitic vol] 90 fL Normal 80-100 [facility] Comment on above: Performed By: #### 5 7021-8 ####CALE Roth ([id number])[facility] ([facility])[address]170 [place] [address] Monocytes (Bld) [#/Vol] 0.41 x10*3/uL Normal 0.10-1.00 [facility] Comment on above: Performed By: #### 5 7021-8 ####CALE Roth ([id number])[facility] ([facility])[address]69 [place] [address] Monocytes/100 WBC (Bld) 8.1 % Normal 2.0-10.0 [facility] Comment on above: Performed By: #### 5 7021-8 ####CALE Roth ([id number])[facility] ([facility])[address]82 [place] [address] Neutrophils (Bld) [#/Vol] 3.10 x10*3/uL Normal 1.20-7.70 [facility] Comment on above: Result Comment: Perc ent differential counts (%) should be interpreted in the context of the absolute cell counts (cells/uL). Performed By: #### 5 7021-8 ####CALE Roth ([id number])[facility] ([facility])[address]153 [place] [address] Neutrophils/100 WBC (Bld) 60.9 % Normal 40.0-80.0 [facility] Comment on above: Performed By: #### 5 7021-8 ####CALE Roth ([id number])[facility] ([facility])[address]80 [place] [address] Nucleated RBC/100 WBC (Bld) [Ratio] 0.0 /100 WBCs Normal 0.0-0.0 [facility] Comment on above: Performed By: #### 5 7021-8 ####CALE Roth ([id number])[facility] ([facility])[address]392 [place] [address] Platelets (Bld) [#/Vol] 231 x10*3/uL Normal 150-450 [facility] Comment on above: Performed By: #### 5 7021-8 ####CALE Roth ([id number])[facility] ([facility])[address]80 [place] [address] RBC (Bld) [#/Vol] 3.83 x10*6/uL Low 4.00-5.20 [facility] Comment on above: Performed By: #### 5 7021-8 ####CALE Roth ([id number])[facility] ([facility])[address] [place] [address] 29395 WBC (Bld) [#/Vol] 5.1 x10*3/uL Normal 4.4-11.3 [facility] Comment on above: Performed By: #### 5 7021-8 ####CALE Roth ([id number])[facility] ([facility])[id number] [place] [address]361 Calcium.ionizedon 03-28-2025 Calcium.ionized (Bld) [Moles/Vol] 1.03 mmol/L Low 1.1-1.33 [facility] Comment on above: Result Comment: The performance characteristics of ionized calcium testedin heparinized plasma or serum [facility].Testing on heparinized plasma or serum is not approved bythe FDA; however, such approval is not necessary. Performed By: #### 1 994-3 ####CALE Roth ([id number])[facility] ([facility])[id number] [place] [address]01 Glucose Test strip manual (B ld) [Mass/Vol]on 03-28-2025 Glucose [Mass/Vol] 127 mg/dL High 74-99 [facility] Comment on above: Performed By: #### 2 341-6 ####CALE Roth ([id number])[facility] ([facility])[address] [place] [address], [place] [address] Glucose [Mass/Vol] 116 mg/dL High 74-99 [facility] Comment on above: Performed By: #### 2 341-6 ####CALE Roth ([id number])[facility] ([facility])[address]47 [place] [address] Glucose [Mass/Vol] 126 mg/dL High 74-99 [facility] Comment on above: Performed By: #### 2 341-6 ####CALE Roth ([id number])[facility] ([facility])[address]024 [place] [address] Magnesiumon 03-28-2025 Magnesium [Mass/Vol] 2.08 mg/dL Normal 1.60-2.40 [facility] Comment on above: Performed By: #### 1 9123-9 ####CALE Roth ([id number])[facility] ([facility])[address]26 [place] [address] Renal function 2000 panelon 03-28-2025 Albumin BCP dye [Mass/Vol] 4.1 g/dL Normal 3.4-5.0 [facility] Comment on above: Performed By: #### 2 4362-6 ####CALE Roth ([id number])[facility] ([facility])[address]36 [place] [address] Anion gap [Moles/Vol] 13 mmol/L Normal 10-20 [facility] Comment on above: Performed By: #### 2 4362-6 ####CALE Roth ([id number])[facility] ([facility])[address]91 [place] [address] Calcium [Mass/Vol] 9.5 mg/dL Normal 8.6-10.6 [facility] Comment on above: Performed By: #### 2 4362-6 ####CALE Roth ([id number])[facility] ([facility])[address]314 [place] [address] Chloride [Moles/Vol] 96 mmol/L Low 98-107 [facility] Comment on above: Performed By: #### 2 4362-6 ####CALE Roth ([id number])[facility] ([facility])[address]11 [place] [address] CO2 [Moles/Vol] 29 mmol/L Normal 21-32 [facility] Comment on above: Performed By: #### 2 4362-6 ####CALE Roth ([id number])[facility] ([facility])[address]16 [place] [address] Creatinine [Mass/Vol] 0.39 mg/dL Low 0.50-1.05 [facility] Comment on above: Performed By: #### 2 4362-6 ####CALE Roth ([id number])[facility] ([facility])[address]169 [place] [address] Glomerular filtration rate >90 Normal >60 [facility] Comment on above: Result Comment: Calc ulations of estimated GFR are performed using the 2020 CKD-EPI Study Refit equation without the race variable for the IDMS-Traceable creatinine methods.https://jasn.asnjournals.org/content//ASN .1453247740 Performed By: #### 2 4362-6 ####CALE Roth ([id number])[facility] ([facility])[address]378 [place] [address] Glucose [Mass/Vol] 170 mg/dL High 74-99 [facility] Comment on above: Performed By: #### 2 4362-6 ####CALE Roth ([id number])[facility] ([facility])[address]21 [place] [address] Phosphate [Mass/Vol] 3.1 mg/dL Normal 2.5-4.9 [facility] Comment on above: Performed By: #### 2 4362-6 ####CALE Roth ([id number])[facility] ([facility])15968 [place] [address] Potassium [Moles/Vol] 3.9 mmol/L Normal 3.5-5.3 [facility] Comment on above: Performed By: #### 2 4362-6 ####CALE Roth (76992)[facility] ([facility])[address] [place] [address]53 Sodium [Moles/Vol] 134 mmol/L Low 136-145 [facility] Comment on above: Performed By: #### 2 4362-6 ####CALE Roth ([id number])[facility] ([facility])[address] [place] [address] 43049 Urea nitrogen [Mass/Vol] 14 mg/dL Normal 6-23 [facility] Comment on above: Performed By: #### 2 4362-6 ####CALE Roth ([id number])[facility] ([facility])[id number] [place] [address] 65478 XR CHEST 1 VIEWon 03-28-2025 XR CHEST 1 VIEW Normal [facility] XR CHEST 1 VIEW Normal [facility] CBC W Auto Differential pane l (Bld)on 03-27-2025 Basophils (Bld) [#/Vol] 0.04 x10*3/uL Normal 0.00-0.10 [facility] Comment on above: Performed By: #### 5 7021-8 ####CALE Roht ([id number])[facility] ([facility])[address]508 [place] [address] Basophils/100 WBC (Bld) 0.4 % Normal 0.0-2.0 [facility] Comment on above: Performed By: #### 5 7021-8 ####CALE Roth ([id number])[facility] ([facility])[id number] [place] [address] 06996 Eosinophils (Bld) [#/Vol] 0.20 x10*3/uL Normal 0.00-0.70 [facility] Comment on above: Performed By: #### 5 7021-8 ####CALE Roth ([id number])[facility] ([facility])[address]22 [place] [address] Eosinophils/100 WBC (Bld) 2.2 % Normal 0.0-6.0 [facility] Comment on above: Performed By: #### 5 7021-8 ####CALE Roth ([id number])[facility] ([facility])[address]078 [place] [address] Erythrocyte distribution width (RBC) [Ratio] 14.4 % Normal 11.5-14.5 [facility] Comment on above: Performed By: #### 5 7021-8 ####CALE Roth ([id number])[facility] ([facility])[id number] [place] [address]20 Hematocrit (Bld) [Volume fraction] 33.1 % Low 36.0-46.0 [facility] Comment on above: Performed By: #### 5 7021-8 ####CALE Roth ([id number])[facility] ([facility])[id number] [place] [address] 92997 Hemoglobin (Bld) [Mass/Vol] 11.1 g/dL Low 12.0-16.0 [facility] Comment on above: Performed By: #### 5 7021-8 ####CALE Roth ([id number])[facility] ([facility])[id number] [place] [address] 20864 Immature granulocytes (Bld) [#/Vol] 0.17 x10*3/uL Normal 0.00-0.70 [facility] Comment on above: Performed By: #### 5 7021-8 ####CALE Roth ([id number])[facility] ([facility])[address] [place] [address] Immature granulocytes/100 WBC (Bld) 1.9 % High 0.0-0.9 [facility] Comment on above: Result Comment: Aleisha ture Granulocyte Count (IG) includes promyelocytes, myelocytes and metamyelocytes but does not include bands. Percent differential counts (%) should be interpreted in the context of the absolute cell counts (cells/UL). Performed By: #### 5 7021-8 ####CALE Roth ([id number])[facility] ([facility])[address] [place] [address] Lymphocytes (Bld) [#/Vol] 1.31 x10*3/uL Normal 1.20-4.80 [facility] Comment on above: Performed By: #### 5 7021-8 ####CALE Roth ([id number])[facility] ([facility])[id number] [place] [address] 71520 Lymphocytes/100 WBC (Bld) 14.3 % Normal 13.0-44.0 [facility] Comment on above: Performed By: #### 5 7021-8 ####CALE Roth ([id number])[facility] ([facility])[id number] [place] [address] 95421 MCH (RBC) [Entitic mass] 30.7 pg Normal 26.0-34.0 [facility] Comment on above: Performed By: #### 5 7021-8 ####CALE Roth ([id number])[facility] ([facility])[address] [place] [address] MCHC (RBC) [Mass/Vol] 33.5 g/dL Normal 32.0-36.0 [facility] Comment on above: Performed By: #### 5 7021-8 ####CALE Roth ([id number])[facility] [facility] ([facility])[address] [place] [address] MCV (RBC) [Entitic vol] 91 fL Normal 80-100 [facility] Comment on above: Performed By: #### 5 7021-8 ####CALE Roth ([id number])[facility] ([facility])[id number] [place] [address] Monocytes (Bld) [#/Vol] 0.52 x10*3/uL Normal 0.10-1.00 [facility] Comment on above: Performed By: #### 5 7021-8 ####CALE Roth ([id number])[facility] ([facility])[address] [place] [address] Monocytes/100 WBC (Bld) 5.7 % Normal 2.0-10.0 [facility] Comment on above: Performed By: #### 5 7021-8 ####CALE Roth ([id number])[facility] ([facility])[address] [place] [address] Neutrophils (Bld) [#/Vol] 6.89 x10*3/uL Normal 1.20-7.70 [facility] Comment on above: Result Comment: Perc ent differential counts (%) should be interpreted in the context of the absolute cell counts (cells/uL). Performed By: #### 5 7021-8 ####CALE Roth ([id number])[facility] ([facility])[address] [place] [address] Neutrophils/100 WBC (Bld) 75.5 % Normal 40.0-80.0 [facility] Comment on above: Performed By: #### 5 7021-8 ####CALE Roth ([id number])[facility] ([facility])[address] [place] [address] Nucleated RBC/100 WBC (Bld) [Ratio] 0.0 /100 WBCs Normal 0.0-0.0 [facility] Comment on above: Performed By: #### 5 7021-8 ####CALE Roth ([id number])[facility] ([facility])[address] [place] [address] Platelets (Bld) [#/Vol] 216 x10*3/uL Normal 150-450 [facility] Comment on above: Performed By: #### 5 7021-8 ####CALE Roth ([id number])[facility] ([facility])[address] [place] [address] RBC (Bld) [#/Vol] 3.62 x10*6/uL Low 4.00-5.20 [facility] Comment on above: Performed By: #### 5 7021-8 ####CALE Roth ([id number])[facility] ([facility])[address] [place] [address] WBC (Bld) [#/Vol] 9.1 x10*3/uL Normal 4.4-11.3 [facility] Comment on above: Performed By: #### 5 7021-8 ####CALE Roth ([id number])[facility] ([facility])[address] [place] [address] Calcium.ionizedon 03-27-2025 Calcium.ionized (Bld) [Moles/Vol] 1.20 mmol/L Normal 1.1-1.33 [facility] Comment on above: Result Comment: The performance characteristics of ionized calcium testedin heparinized plasma or serum have [facility].Testing on heparinized plasma or serum is not approved bythe FDA; however, such approval is not necessary. Performed By: #### 1 994-3 ####CALE Roth ([id number])[facility] ([facility])[id number] [place] [address] Glucose Test strip manual (B ld) [Mass/Vol]on 03-27-2025 Glucose [Mass/Vol] 134 mg/dL High [address] [place] [address] Comment on above: Performed By: #### 2 341-6 ####CALE Roth ([id number])[facility] ([facility])[id number] [place] [address] Glucose [Mass/Vol] 131 mg/dL High [address] [place] [address] Comment on above: Performed By: #### 2 341-6 ####CALE Roth ([id number])[facility] ([facility])[address] [place] [address] Glucose [Mass/Vol] 123 mg/dL High [address] [place] [address] Comment on above: Performed By: #### 2 341-6 ####CALE Roth ([id number])[facility] ([facility])[address] [place] [address] Glucose [Mass/Vol] 123 mg/dL High 74-99 [facility] Comment on above: Performed By: #### 2 341-6 ####CALE Roth ([id number])[facility] ([facility])[address] [place] [address] Glucose [Mass/Vol] 123 mg/dL High 74-99 [facility] Comment on above: Performed By: #### 2 341-6 ####CALE Roth ([id number])[facility] ([facility])[address] [place] [address] Glucose [Mass/Vol] 152 mg/dL High 74-99 [facility] Comment on above: Performed By: #### 2 341-6 ####CALE Roth ([id number])[facility] ([facility])[address] [place] [address] Magnesiumon 03-27-2025 Magnesium [Mass/Vol] 2.20 mg/dL Normal 1.60-2.40 [facility] Comment on above: Result Comment: MILD HEMOLYSIS DETECTED. The result may be falsely elevated due to hemolysis or other interferents. Clinical correlation is recommended. Repeat testing may be considered. Performed By: #### 1 9123-9 ####CALE Roth ([id number])[facility] ([facility])[address] [place] [address] Renal function 2000 panelon 03-27-2025 Albumin BCP dye [Mass/Vol] 4.0 g/dL Normal 3.4-5.0 [facility] Comment on above: Performed By: #### 2 4362-6 ####CALE Roth ([id number])[facility] ([facility])[address] [place] [address] Anion gap [Moles/Vol] 14 mmol/L Normal 10-20 [facility] Comment on above: Performed By: #### 2 4362-6 ####CALE Roth ([id number])[facility] ([facility])[address] [place] [address] Calcium [Mass/Vol] 9.5 mg/dL Normal 8.6-10.6 [facility] Comment on above: Performed By: #### 2 4362-6 ####CALE Roth ([id number])[facility] ([facility])[address] [place] [address] Chloride [Moles/Vol] 99 mmol/L Normal 98-107 [facility] Comment on above: Performed By: #### 2 4362-6 ####CALE CAI L ([id number])[facility] ([facility])[address] [place] [address] CO2 [Moles/Vol] 28 mmol/L Normal 21-32 [facility] Comment on above: Performed By: #### 2 4362-6 ####CALE CAI L ([id number])[facility] ([facility])[address] [place] [address] Creatinine [Mass/Vol] 0.32 mg/dL Low 0.50-1.05 [facility] Comment on above: Performed By: #### 2 4362-6 ####CALE CAI L ([id number])[facility] ([facility])[address] [place] [address] Glomerular filtration rate >90 Normal >60 [facility] Comment on above: Result Comment: Calc ulations of estimated GFR are performed using the 2020 CKD-EPI Study Refit equation without the race variable for the IDMS-Traceable creatinine methods.https://jasn.asnjournals.org/content/early/ASN .0925041411 Performed By: #### 2 4362-6 ####CALE CAI L ([id number])[facility] ([facility])[address] [place] [address] Glucose [Mass/Vol] 122 mg/dL High 74-99 [facility] Comment on above: Performed By: #### 2 4362-6 ####CALE Roth ([id number])[facility] ([facility])[address] [place] [address] Phosphate [Mass/Vol] 3.4 mg/dL Normal 2.5-4.9 [facility] Comment on above: Result Comment: MILD HEMOLYSIS DETECTED. The result may be falsely elevated due to hemolysis or other interferents. Clinical correlation is recommended. Repeat testing may be considered. Performed By: #### 2 4362-6 ####CALE Roth ([id number])[facility] ([facility])[address] [place] [address] Potassium [Moles/Vol] 4.1 mmol/L Normal 3.5-5.3 [facility] Comment on above: Result Comment: MILD HEMOLYSIS DETECTED. The result may be falsely elevated due to hemolysis or other interferents. Clinical correlation is recommended. Repeat testing may be considered. Performed By: #### 2 4362-6 ####CALE Roth ([id number])[facility] ([facility])[address] [place] [address] Sodium [Moles/Vol] 137 mmol/L Normal 136-145 [facility] Comment on above: Performed By: #### 2 4362-6 ####CALE Roth ([id number])[facility] ([facility])[address] [place] [address] Urea nitrogen [Mass/Vol] 12 mg/dL Normal 6-23 [facility] Comment on above: Performed By: #### 2 4362-6 ####CALE Roth ([id number])[facility] ([facility])[address] [place] [address] C reactive proteinon 025 CRP [Mass/Vol] 3.41 mg/dL High <1.00 [facility] Comment on above: Performed By: #### 1 988-5 ####CALE Roth ([id number])[facility] ([facility])[address] [place] [address] CBC W Auto Differential pane l (Bld)on 03-26-2025 Basophils (Bld) [#/Vol] 0.02 x10*3/uL Normal 0.00-0.10 [facility] Comment on above: Performed By: #### 5 7021-8 ####CALE Roth ([id number])[facility] ([facility])[address] [place] [address] Basophils/100 WBC (Bld) 0.2 % Normal 0.0-2.0 [facility] Comment on above: Performed By: #### 5 7021-8 ####CALE Roth ([id number])[facility] ([facility])[address]013 [place] [address] Eosinophils (Bld) [#/Vol] 0.25 x10*3/uL Normal 0.00-0.70 [facility] Comment on above: Performed By: #### 5 7021-8 ####CALE Roth ([id number])[facility] ([facility])[address]45 [place] [address] Eosinophils/100 WBC (Bld) 3.1 % Normal 0.0-6.0 [facility] Comment on above: Performed By: #### 5 7021-8 ####CALE Roth ([id number])[facility] ([facility])[address]34 [place] [address] Erythrocyte distribution width (RBC) [Ratio] 13.9 % Normal 11.5-14.5 [facility] Comment on above: Performed By: #### 5 7021-8 ####CALE Roth ([id number])[facility] ([facility])[address]101 [place] [address] Hematocrit (Bld) [Volume fraction] 26.2 % Low 36.0-46.0 [facility] Comment on above: Performed By: #### 5 7021-8 ####CALE Roth ([id number])[facility] ([facility])[address]757 [place] [address] Hemoglobin (Bld) [Mass/Vol] 9.5 g/dL Low 12.0-16.0 [facility] Comment on above: Performed By: #### 5 7021-8 ####CALE Roth ([id number])[facility] ([facility])[address]89 [place] [address] Immature granulocytes (Bld) [#/Vol] 0.16 x10*3/uL Normal 0.00-0.70 [facility] Comment on above: Performed By: #### 5 7021-8 ####CALE Roth ([id number])[facility] ([facility])[address]398 [place] [address] Immature granulocytes/100 WBC (Bld) 2.0 % High 0.0-0.9 [facility] Comment on above: Result Comment: Aleisha ture Granulocyte Count (IG) includes promyelocytes, myelocytes and metamyelocytes but does not include bands. Percent differential counts (%) should be interpreted in the context of the absolute cell counts (cells/UL). Performed By: #### 5 7021-8 ####CAEL Roth ([id number])[facility] ([facility])[address]138 [place] [address] Lymphocytes (Bld) [#/Vol] 1.40 x10*3/uL Normal 1.20-4.80 [facility] Comment on above: Performed By: #### 5 7021-8 ####CALE Roth ([id number])[facility] ([facility])[address]222 [place] [address] Lymphocytes/100 WBC (Bld) 17.5 % Normal 13.0-44.0 [facility] Comment on above: Performed By: #### 5 7021-8 ####CALE Roth ([id number])[facility] ([facility])[address]009 [place] [address] MCH (RBC) [Entitic mass] 30.4 pg Normal 26.0-34.0 [facility] Comment on above: Performed By: #### 5 7021-8 ####CALE Roth ([id number])[facility] ([facility])[address]476 [place] [address] MCHC (RBC) [Mass/Vol] 36.3 g/dL High 32.0-36.0 [facility] Comment on above: Performed By: #### 5 7021-8 ####CALE Roth ([id number])[facility] ([facility])[address]794 [place] [address] MCV (RBC) [Entitic vol] 84 fL Normal 80-100 [facility] Comment on above: Performed By: #### 5 7021-8 ####CALE Roth ([id number])[facility] ([facility])[address]98 [place] [address] Monocytes (Bld) [#/Vol] 0.49 x10*3/uL Normal 0.10-1.00 [facility] Comment on above: Performed By: #### 5 7021-8 ####CALE Roth ([id number])[facility] ([facility])[address]69 [place] [address] Monocytes/100 WBC (Bld) 6.1 % Normal 2.0-10.0 [facility] Comment on above: Performed By: #### 5 7021-8 ####ACLE Roth ([id number])[facility] ([facility])[address]398 [place] [address] Neutrophils (Bld) [#/Vol] 5.69 x10*3/uL Normal 1.20-7.70 [facility] Comment on above: Result Comment: Perc ent differential counts (%) should be interpreted in the context of the absolute cell counts (cells/uL). Performed By: #### 5 7021-8 ####CALE Roth ([id number])[facility] ([facility])[address]607 [place] [address] Neutrophils/100 WBC (Bld) 71.1 % Normal 40.0-80.0 [facility] Comment on above: Performed By: #### 5 7021-8 ####CALE Roth ([id number])[facility] ([facility])[address]45 [place] [address] Nucleated RBC/100 WBC (Bld) [Ratio] 0.0 /100 WBCs Normal 0.0-0.0 [facility] Comment on above: Performed By: #### 5 7021-8 ####CALE Roth ([id number])[facility] ([facility])[address]18 [place] [address] Platelets (Bld) [#/Vol] 234 x10*3/uL Normal 150-450 [facility] Comment on above: Performed By: #### 5 7021-8 ####CALE Roth ([id number])[facility] ([facility])[address]000 [place] [address] RBC (Bld) [#/Vol] 3.12 x10*6/uL Low 4.00-5.20 [facility] Comment on above: Performed By: #### 5 7021-8 ####CALE Roth ([id number])[facility] ([facility])[address]18 [place] [address] WBC (Bld) [#/Vol] 8.0 x10*3/uL Normal 4.4-11.3 [facility] Comment on above: Performed By: #### 5 7021-8 ####CALE Roth ([id number])[facility] ([facility])[address]228 [place] [address] CT HEAD WO IV CONTRASTon CT HEAD WO IV CONTRAST Normal [facility] Calcium.ionizedon 03-26-2025 Calcium.ionized (Bld) [Moles/Vol] 1.20 mmol/L Normal 1.1-1.33 [facility] Comment on above: Result Comment: The performance characteristics of ionized calcium testedin heparinized plasma or serum have [facility].Testing on heparinized plasma or serum is not approved [facility] FDA; however, such approval is not necessary. Performed By: #### 1 994-3 ####CALE Roth ([id number])[facility] ([facility])[address]97 [place] [address] ESR Westergren method (Bld) [Velocity]on 03-26-2025 ESR (Bld) [Velocity] 33 mm/h High 0-20 [facility] Comment on above: Performed By: #### 4 537-7 ####CALE Roth ([id number])[facility] ([facility])[address] [place] [address] Glucose Test strip manual (B ld) [Mass/Vol]on 03-26-2025 Glucose [Mass/Vol] 128 mg/dL High 74-99 [facility] Comment on above: Performed By: #### 2 341-6 ####CALE Roth ([id number])[facility] ([facility])[address] [place] [address] Glucose [Mass/Vol] 124 mg/dL High 74-99 [facility] Comment on above: Performed By: #### 2 341-6 ####CALE Roth ([id number])[facility] ([facility])[address] [place] [address] Glucose [Mass/Vol] 113 mg/dL High 74-99 [facility] Comment on above: Performed By: #### 2 341-6 ####CALE Roth ([id number])[facility] ([facility])[address] [place] [address] Magnesiumon 03-26-2025 Magnesium [Mass/Vol] 1.82 mg/dL Normal 1.60-2.40 [facility] Comment on above: Performed By: #### 1 9123-9 ####CALE Roth ([id number])[facility] ([facility])[address] [place] [address] Renal function 2000 panelon 03-26-2025 Albumin BCP dye [Mass/Vol] 3.6 g/dL Normal 3.4-5.0 [facility] Comment on above: Performed By: #### 2 4362-6 ####CALE RUTLEDGEER L ([id number])[facility] ([facility])[address] [place] [address] Anion gap [Moles/Vol] 12 mmol/L Normal 10-20 [facility] Comment on above: Performed By: #### 2 4362-6 ####CALE RUTLEDGEER L ([id number])[facility] ([facility])[address] [place] [address] Calcium [Mass/Vol] 8.8 mg/dL Normal 8.6-10.6 [facility] Comment on above: Performed By: #### 2 4362-6 ####CALE CAI L ([id number])[facility] ([facility])[address] [place] [address] Chloride [Moles/Vol] 103 mmol/L Normal 98-107 [facility] Comment on above: Performed By: #### 2 4362-6 ####CALE TOSCANOMOTZER L ([id number])[facility] ([facility])[address]861 [place] [address] CO2 [Moles/Vol] 27 mmol/L Normal 21-32 [facility] Comment on above: Performed By: #### 2 4362-6 ####CALE TOSCANOMOTZER L (07643)[facility] ([facility])[address] [place] [address] Creatinine [Mass/Vol] 0.24 mg/dL Low 0.50-1.05 [facility] Comment on above: Performed By: #### 2 4362-6 ####CALE TOSCANOMOTZER L ([id number])[facility] ([facility])[address]67 [place] [address] Glomerular filtration rate >90 Normal >60 [facility] Comment on above: Result Comment: Calc ulations of estimated GFR are performed using the 2020 CKD-EPI Study Refit equation without the race variable for the IDMS-Traceable creatinine methods.https://jasn.asnjournals.org/content//ASN .1558630858 Performed By: #### 2 4362-6 ####CALE Roth ([id number])[facility] ([facility])[address]781 [place] [address] Glucose [Mass/Vol] 122 mg/dL High 74-99 [facility] Comment on above: Performed By: #### 2 4362-6 ####CALE Roth (69946)[facility] ([facility])[address]200 [place] [address] Phosphate [Mass/Vol] 2.3 mg/dL Low 2.5-4.9 [facility] Comment on above: Performed By: #### 2 4362-6 ####CALE Roth ([id number])[facility] ([facility])[address]3 [place] [address] Potassium [Moles/Vol] 3.4 mmol/L Low 3.5-5.3 [facility] Comment on above: Performed By: #### 2 4362-6 ####CALE CAI L ([id number])[facility] ([facility])[address]58 [place] [address] Sodium [Moles/Vol] 139 mmol/L Normal 136-145 [facility] Comment on above: Performed By: #### 2 4362-6 ####CALE Roth ([id number])[facility] ([facility])[address]86 [place] [address] Urea nitrogen [Mass/Vol] 8 mg/dL Normal 6-23 [facility] Comment on above: Performed By: #### 2 4362-6 ####CALE CAI L ([id number])[facility] ([facility])[address]647 [place] [address] Thyrotropinon 03-26-2025 TSH Qn 3.32 m[IU]/L Normal 0.44-3.98 [facility] Comment on above: Order Comment: TSH t esting is performed using different testing methodology at [facility] than at other [facility]. Direct result comparisons should only be made within the same method. Performed By: #### 3 016-3 ####CALE Roth ([id number])[facility] ([facility])[address]38 [place] [address] Thyroxine.freeon 03-26-2025 Free T4 [Mass/Vol] 1.58 ng/dL High 0.78-1.48 [facility] Comment on above: Order Comment: Thyro xine Free testing is performed using different testing methodology at [facility] than at other [facility]. Direct result comparisons should only be made within the same method. Performed By: #### 3 024-7 ####CALE Roth ([id number])[facility] ([facility])[id number] [place] [address] Triiodothyronine.freeon Free T3 [Mass/Vol] 2.8 pg/mL Normal 2.3-4.2 [facility] Comment on above: Performed By: #### 3 051-0 ####CALE Roth ([id number])[facility] ([facility])[id number] [place] [address] C reactive proteinon 025 CRP [Mass/Vol] 4.86 mg/dL High <1.00 [facility] Comment on above: Performed By: #### 1 988-5 ####CALE Roth ([id number])[facility] ([facility])[id number] [place] [address] 78911 CBC W Auto Differential pane l (Bld)on 03-25-2025 Basophils (Bld) [#/Vol] 0.02 x10*3/uL Normal 0.00-0.10 [facility] Comment on above: Performed By: #### 5 7021-8 ####CALE Roth ([id number])[facility] ([facility])[id number] [place] [address] 76655 Basophils/100 WBC (Bld) 0.1 % Normal 0.0-2.0 [facility] Comment on above: Performed By: #### 5 7021-8 ####CALE Roth ([id number])[facility] ([facility])[id number] [place] [address] 19056 Eosinophils (Bld) [#/Vol] 0.12 x10*3/uL Normal 0.00-0.70 [facility] Comment on above: Performed By: #### 5 7021-8 ####CALE Roth ([id number])[facility] ([facility])[id number] [place] [address] 95372 Eosinophils/100 WBC (Bld) 0.9 % Normal 0.0-6.0 [facility] Comment on above: Performed By: #### 5 7021-8 ####CALE Roth ([id number])[facility] ([facility])[address] [place] [address] 77028 Erythrocyte distribution width (RBC) [Ratio] 13.6 % Normal 11.5-14.5 [facility] Comment on above: Performed By: #### 5 7021-8 ####CALE Roth ([id number])[facility] ([facility])[address] [place] [address] 60290 Hematocrit (Bld) [Volume fraction] 30.3 % Low 36.0-46.0 [facility] Comment on above: Performed By: #### 5 7021-8 ####CALE Roth ([id number])[facility] ([facility])[address] [place] [address]40 Hemoglobin (Bld) [Mass/Vol] 10.8 g/dL Low 12.0-16.0 [facility] Comment on above: Performed By: #### 5 7021-8 ####CALE Roth ([id number])[facility] ([facility])[address] [place] [address] 04908 Immature granulocytes (Bld) [#/Vol] 0.16 x10*3/uL Normal 0.00-0.70 [facility] Comment on above: Performed By: #### 5 7021-8 ####CALE Roth ([id number])[facility] ([facility])[address] [place] [address] Immature granulocytes/100 WBC (Bld) 1.1 % High 0.0-0.9 [facility] Comment on above: Result Comment: Aleisha ture Granulocyte Count (IG) includes promyelocytes, myelocytes and metamyelocytes but does not include bands. Percent differential counts (%) should be interpreted in the context of the absolute cell counts (cells/UL). Performed By: #### 5 7021-8 ####CALE Roth ([id number])[facility] ([facility])[address] [place] [address] Lymphocytes (Bld) [#/Vol] 1.36 x10*3/uL Normal 1.20-4.80 [facility] Comment on above: Performed By: #### 5 7021-8 ####CALE Roth ([id number])[facility] ([facility])[address] [place] [address] Lymphocytes/100 WBC (Bld) 9.8 % Normal 13.0-44.0 [facility] Comment on above: Performed By: #### 5 7021-8 ####CALE Roth ([id number])[facility] ([facility])[address] [place] [address] MCH (RBC) [Entitic mass] 30.5 pg Normal 26.0-34.0 [facility] Comment on above: Performed By: #### 5 7021-8 ####CALE Roth ([id number])[facility] ([facility])[address] [place] [address] MCHC (RBC) [Mass/Vol] 35.6 g/dL Normal 32.0-36.0 [facility] Comment on above: Performed By: #### 5 7021-8 ####CALE Roth ([id number])[facility] ([facility])[address] [place] [address] MCV (RBC) [Entitic vol] 86 fL Normal 80-100 [facility] Comment on above: Performed By: #### 5 7021-8 ####CALE Roth ([id number])[facility] ([facility])[address] [place] [address] Monocytes (Bld) [#/Vol] 0.95 x10*3/uL Normal 0.10-1.00 [facility] Comment on above: Performed By: #### 5 7021-8 ####CALE Roth ([id number])[facility] ([facility])[address] [place] [address] Monocytes/100 WBC (Bld) 6.8 % Normal 2.0-10.0 [facility] Comment on above: Performed By: #### 5 7021-8 ####CALE Roth ([id number])[facility] ([facility])[address] [place] [address] 53336 Neutrophils (Bld) [#/Vol] 11.31 x10*3/uL High 1.20-7.70 [facility] Comment on above: Result Comment: Perc ent differential counts (%) should be interpreted in the context of the absolute cell counts (cells/uL). Performed By: #### 5 7021-8 ####CALE Roth ([id number])[facility] ([facility])[address] [place] [address] Neutrophils/100 WBC (Bld) 81.3 % Normal 40.0-80.0 [facility] Comment on above: Performed By: #### 5 7021-8 ####CALE Roth ([id number])[facility] ([facility])[address] [place] [address] Nucleated RBC/100 WBC (Bld) [Ratio] 0.0 /100 WBCs Normal 0.0-0.0 [facility] Comment on above: Performed By: #### 5 7021-8 ####CALE Roth ([id number])[facility] ([facility])[address]692 [place] [address] Platelets (Bld) [#/Vol] 282 x10*3/uL Normal 150-450 [facility] Comment on above: Performed By: #### 5 7021-8 ####CALE Roth ([id number])[facility] ([facility])[address] [place] [address] 73636 RBC (Bld) [#/Vol] 3.54 x10*6/uL Low 4.00-5.20 [facility] Comment on above: Performed By: #### 5 7021-8 ####CALE Roth ([id number])[facility] ([facility])[address] [place] [address] 13372 WBC (Bld) [#/Vol] 13.9 x10*3/uL High 4.4-11.3 [facility] Comment on above: Performed By: #### 5 7021-8 ####CALE Roth ([id number])[facility] ([facility])[address] [place] [address] 13108 CBC panel Auto (Bld)on 03-25 Erythrocyte distribution width (RBC) [Ratio] 13.9 % Normal 11.5-14.5 [facility] Comment on above: Performed By: #### 5 8410-2 ####CALE Roth ([id number])[facility] ([facility])[address] [place] [address] 15090 Hematocrit (Bld) [Volume fraction] 30.0 % Low 36.0-46.0 [facility] Comment on above: Performed By: #### 5 8410-2 ####CALE Roth ([id number])[facility] ([facility])[address] [place] [address] 96816 Hemoglobin (Bld) [Mass/Vol] 10.6 g/dL Low 12.0-16.0 [facility] Comment on above: Performed By: #### 5 8410-2 ####CALE Roth ([id number])[facility] ([facility])[address] [place] [address] 90587 MCH (RBC) [Entitic mass] 30.4 pg Normal 26.0-34.0 [facility] Comment on above: Performed By: #### 5 8410-2 ####CALE Roth ([id number])[facility] ([facility])[address]294 [place] [address] MCHC (RBC) [Mass/Vol] 35.3 g/dL Normal 32.0-36.0 [facility] Comment on above: Performed By: #### 5 8410-2 ####CALE Roth ([id number])[facility] ([facility])[address]42 [place] [address] MCV (RBC) [Entitic vol] 86 fL Normal 80-100 [facility] Comment on above: Performed By: #### 5 8410-2 ####CALE Roth (12512)[facility] ([facility])[address]367 [place] [address] Nucleated RBC/100 WBC (Bld) [Ratio] 0.0 /100 WBCs Normal 0.0-0.0 [facility] Comment on above: Performed By: #### 5 8410-2 ####CALE Roth (93230)[facility] ([facility])[address]239 [place] [address] Platelets (Bld) [#/Vol] 293 x10*3/uL Normal 150-450 [facility] Comment on above: Performed By: #### 5 8410-2 ####CALE Roth ([id number])[facility] ([facility])[address] [place] [address] RBC (Bld) [#/Vol] 3.49 x10*6/uL Low 4.00-5.20 [facility] Comment on above: Performed By: #### 5 8410-2 ####CALE CAI L ([id number])[facility] ([facility])[address]194 [place] [address] WBC (Bld) [#/Vol] 13.2 x10*3/uL High 4.4-11.3 [facility] Comment on above: Performed By: #### 5 8410-2 ####CALE Roth ([id number])[facility] ([facility])[address]78 [place] [address] Calcium.ionizedon 03-25-2025 Calcium.ionized (Bld) [Moles/Vol] 1.13 mmol/L Normal 1.1-1.33 [facility] Comment on above: Result Comment: The performance characteristics of ionized calcium testedin heparinized plasma or serum [facility].Testing on heparinized plasma or serum is [facility] FDA; however, such approval is not necessary. Performed By: #### 1 994-3 ####CALE Roth ([id number])[facility] ([facility])[address] [place] [address] 11317 Calcium.ionized (Bld) [Moles/Vol] 1.25 mmol/L Normal 1.1-1.33 [facility] Comment on above: Result Comment: The performance characteristics of ionized calcium testedin heparinized plasma or serum have [facility].Testing on heparinized plasma or serum is not approved [facility] FDA; however, such approval is not necessary. Performed By: #### 1 994-3 ####CALE Roth ([id number])[facility] ([facility])[address] [place] [address] 72226 ECG 12-LEADon 03-25-2025 ECG 12-LEAD Ventricular Rate 130 Atrial Rate 130 P-R Interval 142 QRS Duration 76 Q-T Interval 292 QTC Calculation(Bazett) 429 P Am[place] 65 R [place] 95 T [place]st -13 QRS Count 22 Q Onset 220 [...] Babin (957) on 03/26/2025 3:19:58 PM Normal [facility] ESR Westergren method (Bld) [Velocity]on 03-25-2025 ESR (Bld) [Velocity] 33 mm/h High 0-20 [facility] Comment on above: Performed By: #### 4 537-7 ####CALE Roth ([id number])[facility] ([facility])[address] [place] [address] Gas and Carbon monoxide and Electrolytes panel (BldA)on 03-25-2025 Anion gap 4 (BldA) [Moles/Vol] 7 mmo/L Low 10-25 [facility] Comment on above: Performed By: #### 9 3685-6 ####CALE Roth ([id number])[facility] ([facility])[address]89 [place] [address] Base excess Calc (Bld) [Moles/Vol] 3.1 mmol/L High -2.0-3.0 [facility] Comment on above: Performed By: #### 9 3685-6 ####CALE Roth ([id number])[facility] ([facility])[address]48 [place] [address] Calcium.ionized (BldA) [Moles/Vol] 1.15 mmol/L Normal 1.10-1.33 [facility] Comment on above: Performed By: #### 9 3685-6 ####CALE Roth ([id number])[facility] ([facility])[address]457 [place] [address] Chloride (BldA) [Moles/Vol] 109 mmol/L High 98-107 [facility] Comment on above: Performed By: #### 9 3685-6 ####CALE Roth ([id number])[facility] ([facility])[address] [place] [address] CO2 (Bld) [Partial pressure] 36 mm Hg Low 38-42 [facility] Comment on above: Performed By: #### 9 3685-6 ####CALE Roth ([id number])[facility] ([facility])[address]16 [place] [address] Glucose [Mass/Vol] 117 mg/dL High 74-99 [facility] Comment on above: Performed By: #### 9 6045-6 ####CALE Roth ([id number])[facility] ([facility])[address] [place] [address] 77202 HCO3 (Bld) [Moles/Vol] 26.8 mmol/L High 22.0-26.0 [facility] Comment on above: Performed By: #### 9 0745-6 ####CALE Roth ([id number])[facility] ([facility])[address] [place] [address] 04194 Hematocrit Est (Bld) [Volume fraction] 24.0 % Low 36.0-46.0 [facility] Comment on above: Performed By: #### 9 2685-6 ####CALE Roth ([id number])[facility] ([facility])[address] [place] [address] 57017 Hemoglobin (Bld) [Mass/Vol] 7.9 g/dL Low 12.0-16.0 [facility] Comment on above: Performed By: #### 9 9955-6 ####CALE Roth ([id number])[facility] ([facility])[address] [place] [address] 42672 Inhaled oxygen concentration 21 % Normal [facility] Comment on above: Performed By: #### 9 6945-6 ####CALE Roth ([id number])[facility] ([facility])[address] [place] [address] 94236 Lactate (BldA) [Moles/Vol] 0.8 mmol/L Normal 0.4-2.0 [facility] Comment on above: Performed By: #### 9 5195-6 ####CALE Roth ([id number])[facility] ([facility])[address] [place] [address] 75401 Oxygen (Bld) [Partial pressure] 129 mm Hg High 85-95 [facility] Comment on above: Performed By: #### 9 8045-6 ####CALE Roth ([id number])[facility] ([facility])[address]66 [place] [address] Oxyhemoglobin (BldA) [Mass fraction] 98.4 % High 94.0-98.0 [facility] Comment on above: Performed By: #### 9 3685-6 ####CALE Roth ([id number])[facility] ([facility])[address]257 [place] [address] pH (Bld) 7.48 [pH] High 7.38-7.42 [facility] Comment on above: Performed By: #### 9 3685-6 ####CALE Roth ([id number])[facility] ([facility])[address]80 [place] [address] Potassium (BldA) [Moles/Vol] 3.3 mmol/L Low 3.5-5.3 [facility] Comment on above: Performed By: #### 9 3685-6 ####CALE Roth ([id number])[facility] ([facility])[address] [place] [address]39 Sodium (BldA) [Moles/Vol] 139 mmol/L Normal 136-145 [facility] Comment on above: Performed By: #### 9 3685-6 ####CALE Roth ([id number])[facility] ([facility])[address] [place] [address] 03874 Glucose Test strip manual (B ld) [Mass/Vol]on 03-25-2025 Glucose [Mass/Vol] 112 mg/dL High 74-99 [facility] Comment on above: Performed By: #### 2 341-6 ####CALE Roth ([id number])[facility] ([facility])[address]87 [place] [address] Glucose [Mass/Vol] 117 mg/dL High 74-99 [facility] Comment on above: Performed By: #### 2 341-6 ####CALE Roth ([id number])[facility] ([facility])[address] [place] [address] 39254 Glucose [Mass/Vol] 112 mg/dL High 74-99 [facility] Comment on above: Performed By: #### 2 341-6 ####CALE Roth ([id number])[facility] ([facility])[address]354 [place] [address] Glucose [Mass/Vol] 93 mg/dL Normal 74-99 [facility] Comment on above: Performed By: #### 2 341-6 ####CALE Roth ([id number])[facility] ([facility])[address]70 [place] [address] Lactateon 03-25-2025 Lactate [Moles/Vol] 0.6 mmol/L Normal 0.4-2.0 [facility] Comment on above: Order Comment: Venip uncture immediately after or during the administration of Metamizole may lead to falsely low results. Testing should be performed immediately prior to Metamizole dosing. Performed By: #### 2 524-7 ####CALE Roth ([id number])[facility] ([facility])[address] [place] [address] Magnesiumon 03-25-2025 Magnesium [Mass/Vol] 1.87 mg/dL Normal 1.60-2.40 [facility] Comment on above: Performed By: #### 1 9123-9 ####CALE Roth ([id number])[facility] ([facility])[address]458 [place] [address] Magnesium [Mass/Vol] 2.00 mg/dL Normal 1.60-2.40 [facility] Comment on above: Performed By: #### 1 9123-9 ####CALE Roth ([id number])[facility] ([facility])[address]394 [place] [address] Renal function 2000 panelon 03-25-2025 Albumin BCP dye [Mass/Vol] 4.0 g/dL Normal 3.4-5.0 [facility] Comment on above: Performed By: #### 2 4362-6 ####CALE Roth ([id number])[facility] ([facility])[address]47 [place] [address] Anion gap [Moles/Vol] 12 mmol/L Normal 10-20 [facility] Comment on above: Performed By: #### 2 4362-6 ####CALE Roth (74937)[facility] ([facility])[address]295 [place] [address] Calcium [Mass/Vol] 9.1 mg/dL Normal 8.6-10.6 [facility] Comment on above: Performed By: #### 2 4362-6 ####CALE Roth ([id number])[facility] ([facility])[address]016 [place] [address] Chloride [Moles/Vol] 102 mmol/L Normal 98-107 [facility] Comment on above: Performed By: #### 2 4362-6 ####CALE Roth ([id number])[facility] ([facility])[address]40 [place] [address] CO2 [Moles/Vol] 26 mmol/L Normal 21-32 [facility] Comment on above: Performed By: #### 2 4362-6 ####CALE Roth ([id number])[facility] ([facility])[address]013 [place] [address] Creatinine [Mass/Vol] 0.28 mg/dL Low 0.50-1.05 [facility] Comment on above: Performed By: #### 2 4362-6 ####CALE Roth ([id number])[facility] ([facility])[address]388 [place] [address] Glomerular filtration rate >90 Normal >60 [facility] Comment on above: Result Comment: Calc ulations of estimated GFR are performed using the 2020 CKD-EPI Study Refit equation without the race variable for the IDMS-Traceable creatinine methods.https://jasn.asnjournals.org/content//ASN .0761541824 Performed By: #### 2 4362-6 ####CALE Roth ([id number])[facility] ([facility])[address]43 [place] [address] Glucose [Mass/Vol] 130 mg/dL High 74-99 [facility] Comment on above: Performed By: #### 2 4362-6 ####CALE Roth ([id number])[facility] ([facility])[address]20 [place] [address] Phosphate [Mass/Vol] 2.3 mg/dL Low 2.5-4.9 [facility] Comment on above: Performed By: #### 2 4362-6 ####CALE Roth ([id number])[facility] ([facility])[address]67 [place] [address] Potassium [Moles/Vol] 3.9 mmol/L Normal 3.5-5.3 [facility] Comment on above: Performed By: #### 2 4362-6 ####CALE Roth ([id number])[facility] ([facility])[address]30 [place] [address] Sodium [Moles/Vol] 136 mmol/L Normal 136-145 [facility] Comment on above: Performed By: #### 2 4362-6 ####CALE Roth ([id number])[facility] ([facility])[address]38 [place] [address] Urea nitrogen [Mass/Vol] 6 mg/dL Normal 6-23 [facility] Comment on above: Performed By: #### 2 4362-6 ####CALE Roth ([id number])[facility] ([facility])[address]91 [place] [address] Albumin BCP dye [Mass/Vol] 4.0 g/dL Normal 3.4-5.0 [facility] Comment on above: Performed By: #### 2 4362-6 ####CALE Roth (49498)[facility] ([facility])[address]70 [place] [address] Anion gap [Moles/Vol] 14 mmol/L Normal 10-20 [facility] Comment on above: Performed By: #### 2 4362-6 ####CALE RUTLEDGEER L ([id number])[facility] ([facility])[address]992 [place] [address] Calcium [Mass/Vol] 9.4 mg/dL Normal 8.6-10.6 [facility] Comment on above: Performed By: #### 2 4362-6 ####CALE TOSCANOMOTZER L (49993)[facility] ([facility])[address]54 [place] [address] Chloride [Moles/Vol] 100 mmol/L Normal 98-107 [facility] Comment on above: Performed By: #### 2 4362-6 ####CALE TOSCANOMOTZER L (57022)[facility] ([facility])[address]309 [place] [address] CO2 [Moles/Vol] 26 mmol/L Normal 21-32 [facility] Comment on above: Performed By: #### 2 4362-6 ####CALE CAI L ([id number])[facility] ([facility])[address]98 [place] [address] Creatinine [Mass/Vol] 0.36 mg/dL Low 0.50-1.05 [facility] Comment on above: Performed By: #### 2 4362-6 ####CALE PARKERTZER L ([id number])[facility] ([facility])[address]43 [place] [address] Glomerular filtration rate >90 Normal >60 [facility] Comment on above: Result Comment: Calc ulations of estimated GFR are performed using the 2020 CKD-EPI Study Refit equation without the race variable for the IDMS-Traceable creatinine methods.https://jasn.asnjournals.org/content//ASN .2572981721 Performed By: #### 2 4362-6 ####CALE TOSCANOMOTZER L (45962)[facility] ([facility])[address] [place] [address] Glucose [Mass/Vol] 115 mg/dL High 74-99 [facility] Comment on above: Performed By: #### 2 4362-6 ####CALE Roth ([id number])[facility] ([facility])[address]257 [place] [address] Phosphate [Mass/Vol] 3.1 mg/dL Normal 2.5-4.9 [facility] Comment on above: Performed By: #### 2 4362-6 ####CALE Roth ([id number])[facility] ([facility])[id number] [place] [address] Potassium [Moles/Vol] 3.6 mmol/L Normal 3.5-5.3 [facility] Comment on above: Performed By: #### 2 4362-6 ####CALE Roth ([id number])[facility] ([facility])[address] [place] [address] Sodium [Moles/Vol] 136 mmol/L Normal 136-145 [facility] Comment on above: Performed By: #### 2 4362-6 ####CALE Roth ([id number])[facility] ([facility])[address] [place] [address] Urea nitrogen [Mass/Vol] 8 mg/dL Normal 6-23 [facility] Comment on above: Performed By: #### 2 4362-6 ####CALE Roth ([id number])[facility] ([facility])[id number] [place] [address]697 Thyrotropinon 03-25-2025 TSH Qn 4.56 m[IU]/L High 0.44-3.98 [facility] Comment on above: Order Comment: TSH t esting is performed using different testing methodology at [facility] than at other [facility]. Direct result comparisons should only be made within the same method. Performed By: #### 3 016-3 ####CALE Roth ([id number])[facility] ([facility])[id number] [place] [address] [id number] Thyroxine.freeon 03-25-2025 Free T4 [Mass/Vol] 1.51 ng/dL High 0.78-1.48 [facility] Comment on above: Order Comment: Thyro xine Free testing is performed using different testing methodology at [facility] than at [facility]. Direct result comparisons should only be made within the same method. Performed By: #### 3 024-7 ####CALE Roth ([id number])[facility] ([facility])[address] [place] [address] Triiodothyronine.freeon Free T3 [Mass/Vol] 2.8 pg/mL Normal 2.3-4.2 [facility] Comment on above: Performed By: #### 3 051-0 ####CALE Roth ([id number])[facility] ([facility])[id number] [place] [phone] Troponin I.cardiac panelon 1 Tropinin I.cardiac panel High sensitivity method <3 Normal 0-34 [facility] Comment on above: Order Comment: Less [...] is performed using a differenttesting methodology at [facility] than at [facility]. Direct result comparisons should onlybe made within the same method. Performed By: #### 8 9577-1 ####CALE Roth ([id number])[facility] ([facility])[address] [place] [address] XR ABDOMEN 1 VIEWon 03-25-20 25 XR ABDOMEN 1 VIEW Normal [facility] CBC W Auto Differential pane l (Bld)on 03-24-2025 Basophils (Bld) [#/Vol] 0.04 x10*3/uL Normal 0.00-0.10 [facility] Comment on above: Performed By: #### 5 7021-8 ####CALE Roth ([id number])[facility] ([facility])[id number] [place] [address] 084[address] Basophils/100 WBC (Bld) 0.3 % Normal 0.0-2.0 [facility] Comment on above: Performed By: #### 5 7021-8 ####CALE Roth ([id number])[facility] ([facility])[address] [place] [address]338 Eosinophils (Bld) [#/Vol] 0.11 x10*3/uL Normal 0.00-0.70 [facility] Comment on above: Performed By: #### 5 7021-8 ####CALE CAI L ([id number])[facility] ([facility])[id number] [place] [address] 62405 Eosinophils/100 WBC (Bld) 0.7 % Normal 0.0-6.0 [facility] Comment on above: Performed By: #### 5 7021-8 ####CALE Roth ([id number])[facility] ([facility])[id number] [place] [address] 94970 Erythrocyte distribution width (RBC) [Ratio] 13.8 % Normal 11.5-14.5 [facility] Comment on above: Performed By: #### 5 7021-8 ####CALE Roth ([id number])[facility] ([facility])[id number] [place] [address] 88671 Hematocrit (Bld) [Volume fraction] 30.7 % Low 36.0-46.0 [facility] Comment on above: Performed By: #### 5 7021-8 ####CALE CAI L ([id number])[facility] ([facility])[address] [place] [address] Hemoglobin (Bld) [Mass/Vol] 10.6 g/dL Low 12.0-16.0 [facility] Comment on above: Performed By: #### 5 7021-8 ####CALE Roth ([id number])[facility] ([facility])[address] [place] [address] Immature granulocytes (Bld) [#/Vol] 0.35 x10*3/uL Normal 0.00-0.70 [facility] Comment on above: Performed By: #### 5 7021-8 ####CALE Roth ([id number])[facility] ([facility])[address] [place] [address] Immature granulocytes/100 WBC (Bld) 2.3 % High 0.0-0.9 [facility] Comment on above: Result Comment: Aleisha ture Granulocyte Count (IG) includes promyelocytes, myelocytes and metamyelocytes but does not include bands. Percent differential counts (%) should be interpreted in the context of the absolute cell counts (cells/UL). Performed By: #### 5 7021-8 ####CALE Roth ([id number])[facility] ([facility])[address] [place] [address] Lymphocytes (Bld) [#/Vol] 2.10 x10*3/uL Normal 1.20-4.80 [facility] Comment on above: Performed By: #### 5 7021-8 ####CALE Roth ([id number])[facility] ([facility])[address] [place] [address] Lymphocytes/100 WBC (Bld) 13.7 % Normal 13.0-44.0 [facility] Comment on above: Performed By: #### 5 7021-8 ####CALE Roth ([id number])[facility] ([facility])[address] [place] [address] MCH (RBC) [Entitic mass] 30.7 pg Normal 26.0-34.0 [facility] Comment on above: Performed By: #### 5 7021-8 ####CALE Roth ([id number])[facility] ([facility])[address] [place] [address] MCHC (RBC) [Mass/Vol] 34.5 g/dL Normal 32.0-36.0 [facility] Comment on above: Performed By: #### 5 7021-8 ####CALE CAI L ([id number])[facility] ([facility])[address] [place] [address] MCV (RBC) [Entitic vol] 89 fL Normal 80-100 [facility] Comment on above: Performed By: #### 5 7021-8 ####CALE Roth ([id number])[facility] ([facility])[address] [place] [address] Monocytes (Bld) [#/Vol] 0.98 x10*3/uL Normal 0.10-1.00 [facility] Comment on above: Performed By: #### 5 7021-8 ####CALE CAI L ([id number])[facility] ([facility])[address] [place] [address] Monocytes/100 WBC (Bld) 6.4 % Normal 2.0-10.0 [facility] Comment on above: Performed By: #### 5 7021-8 ####CALE TOSCANOMOISAURA L ([id number])[facility] ([facility])[address] [place] [address] Neutrophils (Bld) [#/Vol] 11.77 x10*3/uL High 1.20-7.70 [facility] Comment on above: Result Comment: Perc ent differential counts (%) should be interpreted in the context of the absolute cell counts (cells/uL). Performed By: #### 5 7021-8 ####CALE TOSCANOMOTZGONZALEZ L ([id number])[facility] ([facility])[address] [place] [address] Neutrophils/100 WBC (Bld) 76.6 % Normal 40.0-80.0 [facility] Comment on above: Performed By: #### 5 7021-8 ####CALE Roth ([id number])[facility] ([facility])[address] [place] [address] Nucleated RBC/100 WBC (Bld) [Ratio] 0.0 /100 WBCs Normal 0.0-0.0 [facility] Comment on above: Performed By: #### 5 7021-8 ####CALE Roth ([id number])[facility] ([facility])[id number] [place] [address] 46254 Platelets (Bld) [#/Vol] 405 x10*3/uL Normal 150-450 [facility] Comment on above: Performed By: #### 5 7021-8 ####CALE Roth ([id number])[facility] ([facility])[id number] [place] [address] 09363 RBC (Bld) [#/Vol] 3.45 x10*6/uL Low 4.00-5.20 [facility] Comment on above: Performed By: #### 5 7021-8 ####CALE Roth ([id number])[facility] ([facility])[id number] [place] [address] 30776 WBC (Bld) [#/Vol] 15.4 x10*3/uL High 4.4-11.3 [facility] Comment on above: Performed By: #### 5 7021-8 ####CALE Roth ([id number])[facility] ([facility])[address] [place] [address] HEAD WO IV CONTRASTon CT HEAD WO IV CONTRAST Normal [facility] Calcium.ionizedon 03-24-2025 Calcium.ionized (Bld) [Moles/Vol] 1.20 mmol/L Normal 1.1-1.33 [facility] Comment on above: Result Comment: The performance characteristics of ionized calcium testedin heparinized plasma or serum have [facility].Testing on heparinized plasma or serum is not approved bythe FDA; however, such approval is not necessary. Performed By: #### 1 994-3 ####CALE Roth ([id number])[facility] ([facility])[address] [place] [address] Glucose Test strip manual (B ld) [Mass/Vol]on 03-24-2025 Glucose [Mass/Vol] 139 mg/dL High [address] [place] [address] Comment on above: Performed By: #### 2 341-6 ####CALE Roth ([id number])[facility] ([facility])[address] [place] [address] Glucose [Mass/Vol] 130 mg/dL High [address] [place] [address] Comment on above: Performed By: #### 2 341-6 ####CALE Roth ([id number])[facility] ([facility])[id number] [place] [address] 23017 Glucose [Mass/Vol] 104 mg/dL High [address] [place] [address] Comment on above: Performed By: #### 2 341-6 ####CALE Roth ([id number])[facility] ([facility])[address]704 [place] [address] Glucose [Mass/Vol] 134 mg/dL High [address] [place] [address] Comment on above: Performed By: #### 2 341-6 ####CALE Roth ([id number])[facility] ([facility])[address] [place] [address] Magnesiumon 03-24-2025 Magnesium [Mass/Vol] 1.84 mg/dL Normal 1.60-2.40 [facility] Comment on above: Performed By: #### 1 9123-9 ####CALE Roth ([id number])[facility] ([facility])[address] [place] [address] Procalcitoninon 03-24-2025 Procalcitonin [Mass/Vol] 0.03 ng/mL Normal <=0.07 [facility] Comment on above: Order Comment: Proca [...] Performed By: #### 3 3959-8 ####CALE Roth ([id number])[facility] ([facility])[address] [place] [address] Renal function 2000 panelon 03-24-2025 Albumin BCP dye [Mass/Vol] 4.0 g/dL Normal 3.4-5.0 [facility] Comment on above: Performed By: #### 2 4362-6 ####CALE Roth ([id number])[facility] ([facility])[address] [place] [address] Anion gap [Moles/Vol] 14 mmol/L Normal 10-20 [facility] Comment on above: Performed By: #### 2 4362-6 ####CALE Roth ([id number])[facility] ([facility])[address]179 [place] [address] Calcium [Mass/Vol] 9.1 mg/dL Normal 8.6-10.6 [facility] Comment on above: Performed By: #### 2 4362-6 ####CALE Roth ([id number])[facility] ([facility])[address] [place] [address] Chloride [Moles/Vol] 104 mmol/L Normal 98-107 [facility] Comment on above: Performed By: #### 2 4362-6 ####CALE CAI L ([id number])[facility] ([facility])[address]75 [place] [address] CO2 [Moles/Vol] 26 mmol/L Normal 21-32 [facility] Comment on above: Performed By: #### 2 4362-6 ####CALE Roth ([id number])[facility] ([facility])[address] [place] [address] Creatinine [Mass/Vol] 0.26 mg/dL Low 0.50-1.05 [facility] Comment on above: Performed By: #### 2 4362-6 ####CALE Roth ([id number])[facility] ([facility])[address] [place] [address] Glomerular filtration rate >90 Normal >60 [facility] Comment on above: Result Comment: Calc ulations of estimated GFR are performed using the 2020 CKD-EPI Study Refit equation without the race variable for the IDMS-Traceable creatinine methods.https://jasn.asnjournals.org/content//ASN .8899507355 Performed By: #### 2 4362-6 ####CALE Roth ([id number])[facility] ([facility])[address]798 [place] [address] Glucose [Mass/Vol] 109 mg/dL High 74-99 [facility] Comment on above: Performed By: #### 2 4362-6 ####CALE CAI L ([id number])[facility] ([facility])[address]271 [place] [address] Phosphate [Mass/Vol] 2.3 mg/dL Low 2.5-4.9 [facility] Comment on above: Performed By: #### 2 4362-6 ####CALE Roth ([id number])[facility] ([facility])[address] [place] [address] Potassium [Moles/Vol] 3.5 mmol/L Normal 3.5-5.3 [facility] Comment on above: Performed By: #### 2 4362-6 ####CALE Roth ([id number])[facility] ([facility])[address]74 [place] [address] Sodium [Moles/Vol] 140 mmol/L Normal 136-145 [facility] Comment on above: Performed By: #### 2 4362-6 ####CALE Roth ([id number])[facility] ([facility])[address]64 [place] [address] Urea nitrogen [Mass/Vol] 7 mg/dL Normal 6-23 [facility] Comment on above: Performed By: #### 2 4362-6 ####CALE Roth ([id number])[facility] ([facility])[address]49 [place] [address] Albumin BCP dye [Mass/Vol] 3.9 g/dL Normal 3.4-5.0 [facility] Comment on above: Performed By: #### 2 4362-6 ####CALE Roth ([id number])[facility] ([facility])[address]344 [place] [address] Anion gap [Moles/Vol] 10 mmol/L Normal 10-20 [facility] Comment on above: Performed By: #### 2 4362-6 ####CALE Roth ([id number])[facility] ([facility])[address]227 [place] [address] Calcium [Mass/Vol] 9.2 mg/dL Normal 8.6-10.6 [facility] Comment on above: Performed By: #### 2 4362-6 ####CALE Roth ([id number])[facility] ([facility])[address]242 [place] [address] Chloride [Moles/Vol] 100 mmol/L Normal 98-107 [facility] Comment on above: Performed By: #### 2 4362-6 ####CALE Roth ([id number])[facility] ([facility])[address] [place] [address] CO2 [Moles/Vol] 29 mmol/L Normal 21-32 [facility] Comment on above: Performed By: #### 2 4362-6 ####CALE Roth ([id number])[facility] ([facility])[address] [place] [address] Creatinine [Mass/Vol] 0.32 mg/dL Low 0.50-1.05 [facility] Comment on above: Performed By: #### 2 4362-6 ####CALE Roth ([id number])[facility] ([facility])[address]874 [place] [address] Glomerular filtration rate >90 Normal >60 [facility] Comment on above: Result Comment: Calc ulations of estimated GFR are performed using the 2020 CKD-EPI Study Refit equation without the race variable for the IDMS-Traceable creatinine methods.https://jasn.asnjournals.org/content/early/ASN .2803466434 Performed By: #### 2 4362-6 ####CALE Roth ([id number])[facility] ([facility])[address]999 [place] [address] Glucose [Mass/Vol] 121 mg/dL High 74-99 [facility] Comment on above: Performed By: #### 2 4362-6 ####CALE Roth ([id number])[facility] ([facility])[address]234 [place] [address] Phosphate [Mass/Vol] 2.4 mg/dL Low 2.5-4.9 [facility] Comment on above: Performed By: #### 2 4362-6 ####CALE Roth ([id number])[facility] ([facility])[address]63 [place] [address] Potassium [Moles/Vol] 3.1 mmol/L Low 3.5-5.3 [facility] Comment on above: Performed By: #### 2 4362-6 ####CALE Roth ([id number])[facility] ([facility])[address]255 [place] [address] Sodium [Moles/Vol] 136 mmol/L Normal 136-145 [facility] Comment on above: Performed By: #### 2 4362-6 ####CALE Roth ([id number])[facility] ([facility])[address]77 [place] [address] Urea nitrogen [Mass/Vol] 12 mg/dL Normal 6-23 [facility] Comment on above: Performed By: #### 2 4362-6 ####CALE Roth ([id number])[facility] ([facility])[id number] [place] [address] XR ABDOMEN 1 VIEWon 03-24-20 XR ABDOMEN 1 VIEW Normal [facility] CBC W Auto Differential pane l (Bld)on 03-23-2025 Basophils (Bld) [#/Vol] 0.04 x10*3/uL Normal 0.00-0.10 [facility] Comment on above: Performed By: #### 5 7021-8 ####CALE Roth ([id number])[facility] ([facility])[address]017 [place] [address] Basophils/100 WBC (Bld) 0.3 % Normal 0.0-2.0 [facility] Comment on above: Performed By: #### 5 7021-8 ####CALE Roth ([id number])[facility] ([facility])[id number] [place] [address] Eosinophils (Bld) [#/Vol] 0.00 x10*3/uL Normal 0.00-0.70 [facility] Comment on above: Performed By: #### 5 7021-8 ####CALE Roth ([id number])[facility] ([facility])[address]308 [place] [address] Eosinophils/100 WBC (Bld) 0.0 % Normal 0.0-6.0 [facility] Comment on above: Performed By: #### 5 7021-8 ####CALE Roth ([id number])[facility] ([facility])[address]00 [place] [address] Erythrocyte distribution width (RBC) [Ratio] 13.4 % Normal 11.5-14.5 [facility] Comment on above: Performed By: #### 5 7021-8 ####CALE Roth ([id number])[facility] ([facility])[address] [place] [address]84[address] Hematocrit (Bld) [Volume fraction] 32.6 % Low 36.0-46.0 [facility] Comment on above: Performed By: #### 5 7021-8 ####CALE Roth ([id number])[facility] ([facility])[address]461 [place] [address] Hemoglobin (Bld) [Mass/Vol] 11.2 g/dL Low 12.0-16.0 [facility] Comment on above: Performed By: #### 5 7021-8 ####CALE Roth ([id number])[facility] ([facility])[address]90 [place] [address] Immature granulocytes (Bld) [#/Vol] 0.63 x10*3/uL Normal 0.00-0.70 [facility] Comment on above: Performed By: #### 5 7021-8 ####CALE Roth ([id number])[facility] ([facility])[address] [place] [address] Immature granulocytes/100 WBC (Bld) 4.5 % High 0.0-0.9 [facility] Comment on above: Result Comment: Aleisha ture Granulocyte Count (IG) includes promyelocytes, myelocytes and metamyelocytes but does not include bands. Percent differential counts (%) should be interpreted in the context of the absolute cell counts (cells/UL). Performed By: #### 5 7021-8 ####CALE Roth ([id number])[facility] ([facility])[address]31 [place] [address] Lymphocytes (Bld) [#/Vol] 1.44 x10*3/uL Normal 1.20-4.80 [facility] Comment on above: Performed By: #### 5 7021-8 ####CALE Roth ([id number])[facility] ([facility])[address]01 [place] [address] Lymphocytes/100 WBC (Bld) 10.3 % Normal 13.0-44.0 [facility] Comment on above: Performed By: #### 5 7021-8 ####CALE Roth ([id number])[facility] ([facility])[address]55 [place] [address] MCH (RBC) [Entitic mass] 30.4 pg Normal 26.0-34.0 [facility] Comment on above: Performed By: #### 5 7021-8 ####CALE Roth ([id number])[facility] ([facility])[address]12 [place] [address] MCHC (RBC) [Mass/Vol] 34.4 g/dL Normal 32.0-36.0 [facility] Comment on above: Performed By: #### 5 7021-8 ####CALE Roth ([id number])[facility] ([facility])[address]38 [place] [address] MCV (RBC) [Entitic vol] 88 fL Normal 80-100 [facility] Comment on above: Performed By: #### 5 7021-8 ####CALE Roth ([id number])[facility] ([facility])[address]238 [place] [address] Monocytes (Bld) [#/Vol] 0.86 x10*3/uL Normal 0.10-1.00 [facility] Comment on above: Performed By: #### 5 7021-8 ####CALE Roth ([id number])[facility] ([facility])[address]45 [place] [address] Monocytes/100 WBC (Bld) 6.2 % Normal 2.0-10.0 [facility] Comment on above: Performed By: #### 5 7021-8 ####CALE Roth ([id number])[facility] ([facility])[address]233 [place] [address] Neutrophils (Bld) [#/Vol] 11.00 x10*3/uL High 1.20-7.70 [facility] Comment on above: Result Comment: Perc ent differential counts (%) should be interpreted in the context of the absolute cell counts (cells/uL). Performed By: #### 5 7021-8 ####CALE Roth ([id number])[facility] ([facility])[address]882 [place] [address] Neutrophils/100 WBC (Bld) 78.7 % Normal 40.0-80.0 [facility] Comment on above: Performed By: #### 5 7021-8 ####CALE Roth ([id number])[facility] ([facility])[address]355 [place] [address] Nucleated RBC/100 WBC (Bld) [Ratio] 0.0 /100 WBCs Normal 0.0-0.0 [facility] Comment on above: Performed By: #### 5 7021-8 ####CALE Roth ([id number])[facility] ([facility])[address]27 [place] [address] Platelets (Bld) [#/Vol] 388 x10*3/uL Normal 150-450 [facility] Comment on above: Performed By: #### 5 7021-8 ####CALE Roth ([id number])[facility] ([facility])[address]25 [place] [address] RBC (Bld) [#/Vol] 3.69 x10*6/uL Low 4.00-5.20 [facility] Comment on above: Performed By: #### 5 7021-8 ####CALE Roth ([id number])[facility] ([facility])[address]278 [place] [address] WBC (Bld) [#/Vol] 14.0 x10*3/uL High 4.4-11.3 [facility] Comment on above: Performed By: #### 5 7021-8 ####CALE Roth ([id number])[facility] ([facility])[id number] [place] [address] [address] HEAD WO IV CONTRASTon CT HEAD WO IV CONTRAST Normal [facility] Calcium.ionizedon 03-23-2025 Calcium.ionized (Bld) [Moles/Vol] 1.21 mmol/L Normal 1.1-1.33 [facility] Comment on above: Result Comment: The performance characteristics of ionized calcium testedin heparinized plasma or serum [facility].Testing on heparinized plasma or serum is not approved bythe FDA; however, such approval is not necessary. Performed By: #### 1 994-3 ####CALE Roth ([id number])[facility] ([facility])[id number] [place] [id number] Glucose Test strip manual (B ld) [Mass/Vol]on 03-23-2025 Glucose [Mass/Vol] 112 mg/dL High 74-99 [facility] Comment on above: Performed By: #### 2 341-6 ####CALE Roth ([id number])[facility] ([facility])[address] [place] [address] Glucose [Mass/Vol] 99 mg/dL Normal 74-99 [facility] Comment on above: Performed By: #### 2 341-6 ####CALE Roth ([id number])[facility] ([facility])[address] [place] [address] Glucose [Mass/Vol] 101 mg/dL High 74-99 [facility] Comment on above: Performed By: #### 2 341-6 ####CALE Roth ([id number])[facility] ([facility])[address] [place] [address] Glucose [Mass/Vol] 110 mg/dL High 74-99 [facility] Comment on above: Performed By: #### 2 341-6 ####CALE Roth ([id number])[facility] ([facility])[address] [place] [address] Glucose [Mass/Vol] 105 mg/dL High 74-99 [facility] Comment on above: Performed By: #### 2 341-6 ####CALE Roth ([id number])[facility] ([facility])[address] [place] [address] Magnesiumon 03-23-2025 Magnesium [Mass/Vol] 1.86 mg/dL Normal 1.60-2.40 [facility] Comment on above: Performed By: #### 1 9123-9 ####CALE Roth ([id number])[facility] ([facility])[address] [place] [address] Renal function 2000 panelon 03-23-2025 Albumin BCP dye [Mass/Vol] 4.0 g/dL Normal 3.4-5.0 [facility] Comment on above: Performed By: #### 2 4362-6 ####CALE Roth ([id number])[facility] ([facility] [facility] [place] [address] Anion gap [Moles/Vol] 14 mmol/L Normal 10-20 [facility] Comment on above: Performed By: #### 2 4362-6 ####CALE Roth ([id number])[facility] ([facility])[address] [place] [address] Calcium [Mass/Vol] 9.5 mg/dL Normal 8.6-10.6 [facility] Comment on above: Performed By: #### 2 4362-6 ####CALE oRth ([id number])[facility] ([facility])[address] [place] [address] Chloride [Moles/Vol] 99 mmol/L Normal 98-107 [facility] Comment on above: Performed By: #### 2 4362-6 ####CALE Roth ([id number])[facility] ([facility])[address] [place] [address] CO2 [Moles/Vol] 27 mmol/L Normal 21-32 [facility] Comment on above: Performed By: #### 2 4362-6 ####CALE Roth ([id number])[facility] ([facility])[address] [place] [address] Creatinine [Mass/Vol] 0.39 mg/dL Low 0.50-1.05 [facility] Comment on above: Performed By: #### 2 4362-6 ####CALE Roth ([id number])[facility] ([facility])[address] [place] [address] Glomerular filtration rate >90 Normal >60 [facility] Comment on above: Result Comment: Calc ulations of estimated GFR are performed using the 2020 CKD-EPI Study Refit equation without the race variable for the IDMS-Traceable creatinine methods.https://jasn.asnjournals.org/content/early/ASN .3014349451 Performed By: #### 2 4362-6 ####CALE Roth ([id number])[facility] ([facility])[address] [place] [address] Glucose [Mass/Vol] 132 mg/dL High 74-99 [facility] Comment on above: Performed By: #### 2 4362-6 ####CALE Roth ([id number])[facility] ([facility])[address]68 [place] [address] Phosphate [Mass/Vol] 3.7 mg/dL Normal 2.5-4.9 [facility] Comment on above: Performed By: #### 2 4362-6 ####CALE Roth ([id number])[facility] ([facility])[address] [place] [address] Potassium [Moles/Vol] 4.1 mmol/L Normal 3.5-5.3 [facility] Comment on above: Performed By: #### 2 4362-6 ####CALE Roth ([id number])[facility] ([facility])[id number] [place] [address] Sodium [Moles/Vol] 136 mmol/L Normal 136-145 [facility] Comment on above: Performed By: #### 2 4362-6 ####CALE Roth ([id number])[facility] ([facility])[id number] [place] [address] Urea nitrogen [Mass/Vol] 15 mg/dL Normal 6-23 [facility] Comment on above: Performed By: #### 2 4362-6 ####CALE Roth ([id number])[facility] ([facility])[id number] [place] [address] CBC W Auto Differential pane l (Bld)on 03-22-2025 Basophils (Bld) [#/Vol] 0.04 x10*3/uL Normal 0.00-0.10 [facility] Comment on above: Performed By: #### 5 7021-8 ####CALE Roth ([id number])[facility] ([facility])[id number] [place] [address] Basophils/100 WBC (Bld) 0.5 % Normal 0.0-2.0 [facility] Comment on above: Performed By: #### 5 7021-8 ####CALE Roth ([id number])[facility] ([facility])[id number] [place] [address] Eosinophils (Bld) [#/Vol] 0.01 x10*3/uL Normal 0.00-0.70 [facility] Comment on above: Performed By: #### 5 7021-8 ####CALE Roth ([id number])[facility] ([facility])[address] [place] [address] Eosinophils/100 WBC (Bld) 0.1 % Normal 0.0-6.0 [facility] Comment on above: Performed By: #### 5 7021-8 ####CALE Roth ([id number])[facility] ([facility])[address]07 [place] [address] Erythrocyte distribution width (RBC) [Ratio] 13.2 % Normal 11.5-14.5 [facility] Comment on above: Performed By: #### 5 7021-8 ####CALE Roth ([id number])[facility] ([facility])[address] [place] [address] Hematocrit (Bld) [Volume fraction] 34.5 % Low 36.0-46.0 [facility] Comment on above: Performed By: #### 5 7021-8 ####CALE Roth ([id number])[facility] ([facility])[id number] [place] [address] Hemoglobin (Bld) [Mass/Vol] 11.8 g/dL Low 12.0-16.0 [facility] Comment on above: Performed By: #### 5 7021-8 ####CALE Roth ([id number])[facility] ([facility])[id number] [place] [address] Immature granulocytes (Bld) [#/Vol] 0.39 x10*3/uL Normal 0.00-0.70 [facility] Comment on above: Performed By: #### 5 7021-8 ####CALE Roth ([id number])[facility] ([facility])[address]183 [place] [address] Immature granulocytes/100 WBC (Bld) 4.8 % High 0.0-0.9 [facility] Comment on above: Result Comment: Aleisha ture Granulocyte Count (IG) includes promyelocytes, myelocytes and metamyelocytes but does not include bands. Percent differential counts (%) should be interpreted in the context of the absolute cell counts (cells/UL). Performed By: #### 5 7021-8 ####CALE Roth ([id number])[facility] ([facility])[address]70 [place] [address] Lymphocytes (Bld) [#/Vol] 1.25 x10*3/uL Normal 1.20-4.80 [facility] Comment on above: Performed By: #### 5 7021-8 ####CALE Roth ([id number])[facility] ([facility])[id number] [place] [address] Lymphocytes/100 WBC (Bld) 15.4 % Normal 13.0-44.0 [facility] Comment on above: Performed By: #### 5 7021-8 ####CALE Roth ([id number])[facility] ([facility])[id number] [place] [address] MCH (RBC) [Entitic mass] 30.2 pg Normal 26.0-34.0 [facility] Comment on above: Performed By: #### 5 7021-8 ####CALE Roth ([id number])[facility] ([facility])[address] [place] [address] MCHC (RBC) [Mass/Vol] 34.2 g/dL Normal 32.0-36.0 [facility] Comment on above: Performed By: #### 5 7021-8 ####CALE Roth ([id number])[facility] ([facility])[address]38 [place] [address] MCV (RBC) [Entitic vol] 88 fL Normal 80-100 [facility] Comment on above: Performed By: #### 5 7021-8 ####CALE Roth ([id number])[facility] ([facility])[address]10 [place] [address] Monocytes (Bld) [#/Vol] 0.50 x10*3/uL Normal 0.10-1.00 [facility] Comment on above: Performed By: #### 5 7021-8 ####CALE Roth ([id number])[facility] ([facility])[address]38 [place] [address] Monocytes/100 WBC (Bld) 6.2 % Normal 2.0-10.0 [facility] Comment on above: Performed By: #### 5 7021-8 ####CALE Roth ([id number])[facility] ([facility])[address]345 [place] [address] Neutrophils (Bld) [#/Vol] 5.92 x10*3/uL Normal 1.20-7.70 [facility] Comment on above: Result Comment: Perc ent differential counts (%) should be interpreted in the context of the absolute cell counts (cells/uL). Performed By: #### 5 7021-8 ####CALE Roth ([id number])[facility] ([facility])[address]67 [place] [address] Neutrophils/100 WBC (Bld) 73.0 % Normal 40.0-80.0 [facility] Comment on above: Performed By: #### 5 7021-8 ####CALE Roth ([id number])[facility] ([facility])[address]12 [place] [address] Nucleated RBC/100 WBC (Bld) [Ratio] 0.0 /100 WBCs Normal 0.0-0.0 [facility] Comment on above: Performed By: #### 5 7021-8 ####CALE Roth ([id number])[facility] ([facility])[address]20 [place] [address] Platelets (Bld) [#/Vol] 407 x10*3/uL Normal 150-450 [facility] Comment on above: Performed By: #### 5 7021-8 ####CALE Roth ([id number])[facility] ([facility])[address]852 [place] [address] RBC (Bld) [#/Vol] 3.91 x10*6/uL Low 4.00-5.20 [facility] Comment on above: Performed By: #### 5 7021-8 ####CALE Roth ([id number])[facility] ([facility])[address]27 [place] [address] WBC (Bld) [#/Vol] 8.1 x10*3/uL Normal 4.4-11.3 [facility] Comment on above: Performed By: #### 5 7021-8 ####CALE Roth ([id number])[facility] ([facility])[address] [place] [address] CT HEAD WITHOUT CONTRAST VOL UMETRIC SURGICAL PLANNINGon 03-22-2025 CT HEAD WITHOUT CONTRAST VOLUMETRIC SURGICAL PLANNING Normal [facility] CT HEAD WO IV CONTRASTon CT HEAD WO IV CONTRAST Normal [facility] Calcium.ionizedon 03-22-2025 Calcium.ionized (Bld) [Moles/Vol] 1.20 mmol/L Normal 1.1-1.33 [facility] Comment on above: Result Comment: The performance characteristics of ionized calcium testedin heparinized plasma or serum [facility].Testing on heparinized plasma or serum is not approved bythe FDA; however, such approval is not necessary. Performed By: #### 1 994-3 ####CALE Roth ([id number])[facility] ([facility])[id number] [place] [address] Gas and Carbon monoxide and Electrolytes panel (BldA)on 03-22-2025 Anion gap 4 (BldA) [Moles/Vol] 8 mmo/L Low 10-25 [facility] Comment on above: Performed By: #### 9 3685-6 ####CAEL Roth ([id number])[facility] ([facility])[address]399 [place] [address] Base excess Calc (Bld) [Moles/Vol] 3.5 mmol/L High -2.0-3.0 [facility] Comment on above: Performed By: #### 9 3685-6 ####CALE Roth ([id number])[facility] ([facility])[address]79 [place] [address] Calcium.ionized (BldA) [Moles/Vol] 1.23 mmol/L Normal 1.10-1.33 [facility] Comment on above: Performed By: #### 9 3685-6 ####CALE Roth ([id number])[facility] ([facility])[address] [place] [address] Chloride (BldA) [Moles/Vol] 104 mmol/L Normal 98-107 [facility] Comment on above: Performed By: #### 9 3685-6 ####CALE Roth ([id number])[facility] ([facility])[address] [place] [address] CO2 (Bld) [Partial pressure] 33 mm Hg Low 38-42 [facility] Comment on above: Performed By: #### 9 3685-6 ####CALE Roth ([id number])[facility] ([facility])[address] [place] [address] Glucose [Mass/Vol] 128 mg/dL High 74-99 [facility] Comment on above: Performed By: #### 9 2165-6 ####CALE Roth ([id number])[facility] ([facility])[address] [place] [address]874 HCO3 (Bld) [Moles/Vol] 26.3 mmol/L High 22.0-26.0 [facility] Comment on above: Performed By: #### 9 3685-6 ####CALE Roth ([id number])[facility] ([facility])[address] [place] [address] Hematocrit Est (Bld) [Volume fraction] 34.0 % Low 36.0-46.0 [facility] Comment on above: Performed By: #### 9 3685-6 ####CALE Roth ([id number])[facility] ([facility])[address] [place] [address]9869 Hemoglobin (Bld) [Mass/Vol] 11.2 g/dL Low 12.0-16.0 [facility] Comment on above: Performed By: #### 9 3685-6 ####CALE Roth ([id number])[facility] ([facility])[address] [place] [address] Inhaled oxygen concentration 50 % Normal [facility] Comment on above: Performed By: #### 9 3685-6 ####CALE Roth (49162)[facility] ([facility])[address]879 [place] [address] Lactate (BldA) [Moles/Vol] 0.6 mmol/L Normal 0.4-2.0 [facility] Comment on above: Performed By: #### 9 3685-6 ####CALE Roth ([id number])[facility] ([facility])[id number] [place] [address] Oxygen (Bld) [Partial pressure] 266 mm Hg High 85-95 [facility] Comment on above: Performed By: #### 9 3685-6 ####CALE Roth ([id number])[facility] ([facility])[address]17 [place] [address] Oxyhemoglobin (BldA) [Mass fraction] 97.6 % Normal 94.0-98.0 [facility] Comment on above: Performed By: #### 9 3685-6 ####CALE Roth ([id number])[facility] ([facility])[address]642 [place] [address] pH (Bld) 7.51 [pH] High 7.38-7.42 [facility] Comment on above: Performed By: #### 9 3685-6 ####CALE Roth ([id number])[facility] ([facility])[address] [place] [address]607 Potassium (BldA) [Moles/Vol] 3.7 mmol/L Normal 3.5-5.3 [facility] Comment on above: Performed By: #### 9 7105-6 ####CALE Roth ([id number])[facility] ([facility])[address]143 [place] [address] Sodium (BldA) [Moles/Vol] 135 mmol/L Low 136-145 [facility] Comment on above: Performed By: #### 9 3685-6 ####CALE Roth ([id number])[facility] ([facility])25189 [place] [address] Glucose Test strip manual (B ld) [Mass/Vol]on 03-22-2025 Glucose [Mass/Vol] 133 mg/dL High 74-99 [facility] Comment on above: Performed By: #### 2 341-6 ####CALE Roth ([id number])[facility] ([facility])[id number] [place] [address] 26265 Glucose [Mass/Vol] 119 mg/dL High -[address] [place] [address] Comment on above: Performed By: #### 2 341-6 ####CALE Roth ([id number])[facility] ([facility])[address] [place] [address] 57953 Glucose [Mass/Vol] 119 mg/dL High 7499 [facility] Comment on above: Performed By: #### 2 341-6 ####CALE Roth ([id number])[facility] ([facility])[address] [place] [address]61 Magnesiumon 03-22-2025 Magnesium [Mass/Vol] 2.11 mg/dL Normal 1.60-2.40 [facility] Comment on above: Performed By: #### 1 9123-9 ####CALE Roth ([id number])[facility] ([facility])[address]121 [place] [address] Renal function 2000 panelon 03-22-2025 Albumin BCP dye [Mass/Vol] 4.1 g/dL Normal 3.4-5.0 [facility] Comment on above: Performed By: #### 2 4362-6 ####CALE Roth ([id number])[facility] ([facility])22978 [place] [address] Anion gap [Moles/Vol] 12 mmol/L Normal 10-20 [facility] Comment on above: Performed By: #### 2 4362-6 ####CALE Roth ([id number])[facility] ([facility])09933 [place] [address] Calcium [Mass/Vol] 9.5 mg/dL Normal 8.6-10.6 [facility] Comment on above: Performed By: #### 2 4362-6 ####CALE Roth ([id number])[facility] ([facility])29539 [place] [address] Chloride [Moles/Vol] 101 mmol/L Normal 98-107 [facility] Comment on above: Performed By: #### 2 4362-6 ####CALE Roth ([id number])[facility] ([facility])[address]35 [place] [address] CO2 [Moles/Vol] 28 mmol/L Normal 21-32 [facility] Comment on above: Performed By: #### 2 4362-6 ####CALE Roth ([id number])[facility] ([facility])[address]65 [place] [address] Creatinine [Mass/Vol] 0.31 mg/dL Low 0.50-1.05 [facility] Comment on above: Performed By: #### 2 4362-6 ####CALE Roth ([id number])[facility] ([facility])04995 [place] [address] Glomerular filtration rate >90 Normal >60 [facility] Comment on above: Result Comment: Calc ulations of estimated GFR are performed using the 2020 CKD-EPI Study Refit equation without the race variable for the IDMS-Traceable creatinine methods.https://jasn.asnjournals.org/content//ASN .8798806943 Performed By: #### 2 4362-6 ####CALE Roth ([id number])[facility] ([facility])13580 [place] [address] Glucose [Mass/Vol] 126 mg/dL High 74-99 [facility] Comment on above: Performed By: #### 2 4362-6 ####CALE Roth ([id number])[facility] ([facility])34180 [place] [address] Phosphate [Mass/Vol] 2.3 mg/dL Low 2.5-4.9 [facility] Comment on above: Performed By: #### 2 4362-6 ####CALE Roth ([id number])[facility] ([facility])25244 [place] [address] Potassium [Moles/Vol] 3.8 mmol/L Normal 3.5-5.3 [facility] Comment on above: Performed By: #### 2 4362-6 ####CALE Roth ([id number])[facility] ([facility])30881 [place] [address] Sodium [Moles/Vol] 137 mmol/L Normal 136-145 [facility] Comment on above: Performed By: #### 2 4362-6 ####CALE Roth ([id number])[facility] ([facility])[address]189 [place] [address] Urea nitrogen [Mass/Vol] 13 mg/dL Normal 6-23 [facility] Comment on above: Performed By: #### 2 4362-6 ####CALE Roth ([id number])[facility] ([facility])27932 [place] [address] Albumin BCP dye [Mass/Vol] 4.2 g/dL Normal 3.4-5.0 [facility] Comment on above: Performed By: #### 2 4362-6 ####CALE Roth ([id number])[facility] ([facility])[address]679 [place] [address] Anion gap [Moles/Vol] 15 mmol/L Normal 10-20 [facility] Comment on above: Performed By: #### 2 4362-6 ####CALE CAI L ([id number])[facility] ([facility])[address]605 [place] [address] Calcium [Mass/Vol] 9.6 mg/dL Normal 8.6-10.6 [facility] Comment on above: Performed By: #### 2 4362-6 ####CALE CAI L ([id number])[facility] ([facility])44563 [place] [address] Chloride [Moles/Vol] 99 mmol/L Normal 98-107 [facility] Comment on above: Performed By: #### 2 4362-6 ####CALE CAI L ([id number])[facility] ([facility])[address]160 [place] [address] CO2 [Moles/Vol] 24 mmol/L Normal 21-32 [facility] Comment on above: Performed By: #### 2 4362-6 ####CALE CAI L ([id number])[facility] ([facility])[address]456 [place] [address] Creatinine [Mass/Vol] 0.38 mg/dL Low 0.50-1.05 [facility] Comment on above: Performed By: #### 2 4362-6 ####CALE CAI L ([id number])[facility] ([facility])48673 [place] [address] Glomerular filtration rate >90 Normal >60 [facility] Comment on above: Result Comment: Calc ulations of estimated GFR are performed using the 2020 CKD-EPI Study Refit equation without the race variable for the IDMS-Traceable creatinine methods.https://jasn.asnjournals.org/content//ASN .2640377260 Performed By: #### 2 4362-6 ####CALE CAI L ([id number])[facility] ([facility])[address]64 [place] [address] Glucose [Mass/Vol] 212 mg/dL High 74-99 [facility] Comment on above: Performed By: #### 2 4362-6 ####CALE Roth ([id number])[facility] ([facility])[address]655 [place] [address] Phosphate [Mass/Vol] 2.5 mg/dL Normal 2.5-4.9 [facility] Comment on above: Performed By: #### 2 4362-6 ####CALE CAI L ([id number])[facility] ([facility])[address]505 [place] [address] Potassium [Moles/Vol] 4.1 mmol/L Normal 3.5-5.3 [facility] Comment on above: Performed By: #### 2 4362-6 ####CALE Roth (73953)[facility] ([facility])[address]19 [place] [address] Sodium [Moles/Vol] 134 mmol/L Low 136-145 [facility] Comment on above: Performed By: #### 2 4362-6 ####CALE CAI L ([id number])[facility] ([facility])[address] [place] [address] Urea nitrogen [Mass/Vol] 19 mg/dL Normal 6-23 [facility] Comment on above: Performed By: #### 2 4362-6 ####CALE CAI L ([id number])[facility] ([facility])[address] [place] [address] [facility] US TRANSCRANIAL DOPPLER (TCD) COMPLETEon 03-22-2025 VAS US TRANSCRANIAL DOPPLER (TCD) COMPLETE Normal [facility] XR ABDOMEN 2 VIEWS SUPINE AN D ERECT OR DECUBon 03-22-2025 XR ABDOMEN 2 VIEWS SUPINE AND ERECT OR DECUB [facility] Comment on above: Order Comment: Eboni de los santos have AP and lateral views of abdomen XR SHUNT SERIESon 03-22-2025 XR SHUNT SERIES Normal [facility] Comment on above: Order Comment: Eboni de los santos have AP and lateral abdominal xrays as part of imaging, along with skull xray orthogonal to shunt valve (in right occipital region) Bacteriaon 03-21-2025 Bacteria identified Cx Nom (U) Abnormal [facility] Comment on above: Performed By: #### 6 30-4 ####CALE Roth ([id number])[facility] ([facility])[address] [place] [address] Bacteria identified Cx Nom (CSF) Normal [facility] Comment on above: Performed By: #### 6 06-4 ####CALE Roth ([id number])[facility] ([facility])[address] [place] [address] Blood type and Indirect anti body screen panel (Bld)on 03-21-2025 ABO group Nom (Bld) B Normal [facility] Comment on above: Performed By: #### 3 4532-2 ####CALE Roth ([id number])[facility] ([facility])[address] [place] [address] Blood group antibody screen Ql Negative Normal [facility] Comment on above: Performed By: #### 3 4532-2 ####CALE Roth ([id number])[facility] ([facility])[address] [place] [address] D Ag Ql (Bld) Positive Normal [facility] Comment on above: Performed By: #### 3 4532-2 ####CALE Roth ([id number])[facility] ([facility])[address] [place] [address] CBC W Auto Differential pane l (Bld)on 03-21-2025 Basophils (Bld) [#/Vol] 0.02 x10*3/uL Normal 0.00-0.10 [facility] Comment on above: Performed By: #### 5 7021-8 ####CALE Roth ([id number])[facility] ([facility])[address] [facility] [place] [address] Basophils/100 WBC (Bld) 0.3 % Normal 0.0-2.0 [facility] Comment on above: Performed By: #### 5 7021-8 ####CALE Roth ([id number])[facility] ([facility])[address] [place] [address]94[address] Eosinophils (Bld) [#/Vol] 0.00 x10*3/uL Normal 0.00-0.70 [facility] Comment on above: Performed By: #### 5 7021-8 ####CALE Roth ([id number])[facility] ([facility])[address] [place] [address] Eosinophils/100 WBC (Bld) 0.0 % Normal 0.0-6.0 [facility] Comment on above: Performed By: #### 5 7021-8 ####CALE Roth ([id number])[facility] ([facility])[address] [place] [address]16 Erythrocyte distribution width (RBC) [Ratio] 13.4 % Normal 11.5-14.5 [facility] Comment on above: Performed By: #### 5 7021-8 ####CALE Roth ([id number])[facility] ([facility])[address] [place] [address] 12496 Hematocrit (Bld) [Volume fraction] 34.0 % Low 36.0-46.0 [facility] Comment on above: Performed By: #### 5 7021-8 ####CALE Roth ([id number])[facility] ([facility])[address] [place] [address] 01138 Hemoglobin (Bld) [Mass/Vol] 11.6 g/dL Low 12.0-16.0 [facility] Comment on above: Performed By: #### 5 7021-8 ####CALE Roth ([id number])[facility] ([facility])[address] [place] [address]74[address] Immature granulocytes (Bld) [#/Vol] 0.36 x10*3/uL Normal 0.00-0.70 [facility] Comment on above: Performed By: #### 5 7021-8 ####CALE Roth ([id number])[facility] ([facility])[address] [place] [address] Immature granulocytes/100 WBC (Bld) 4.6 % High 0.0-0.9 [facility] Comment on above: Result Comment: Aleisha ture Granulocyte Count (IG) includes promyelocytes, myelocytes and metamyelocytes but does not include bands. Percent differential counts (%) should be interpreted in the context of the absolute cell counts (cells/UL). Performed By: #### 5 7021-8 ####CALE Roth ([id number])[facility] ([facility])[address] [place] [address] Lymphocytes (Bld) [#/Vol] 0.97 x10*3/uL Low 1.20-4.80 [facility] Comment on above: Performed By: #### 5 7021-8 ####CALE Roth ([id number])[facility] ([facility])[address] [place] [address] Lymphocytes/100 WBC (Bld) 12.4 % Normal 13.0-44.0 [facility] Comment on above: Performed By: #### 5 7021-8 ####CALE Roth ([id number])[facility] ([facility])[address] [place] [address] MCH (RBC) [Entitic mass] 29.8 pg Normal 26.0-34.0 [facility] Comment on above: Performed By: #### 5 7021-8 ####CALE Roth ([id number])[facility] ([facility])[address] [place] [address] MCHC (RBC) [Mass/Vol] 34.1 g/dL Normal 32.0-36.0 [facility] Comment on above: Performed By: #### 5 7021-8 ####CALE Roth ([id number])[facility] ([facility])[address] [place] [address] MCV (RBC) [Entitic vol] 87 fL Normal 80-100 [facility] Comment on above: Performed By: #### 5 7021-8 ####CALE Roth ([id number])[facility] ([facility])[address] [place] [address] Monocytes (Bld) [#/Vol] 0.43 x10*3/uL Normal 0.10-1.00 [facility] Comment on above: Performed By: #### 5 7021-8 ####CALE Roth ([id number])[facility] ([facility])[address] [place] [address] Monocytes/100 WBC (Bld) 5.5 % Normal 2.0-10.0 [facility] Comment on above: Performed By: #### 5 7021-8 ####CALE Roth ([id number])[facility] ([facility])[address] [place] [address] Neutrophils (Bld) [#/Vol] 6.02 x10*3/uL Normal 1.20-7.70 [facility] Comment on above: Result Comment: Perc ent differential counts (%) should be interpreted in the context of the absolute cell counts (cells/uL). Performed By: #### 5 7021-8 ####CALE Roth ([id number])[facility] ([facility])[address] [place] [address] Neutrophils/100 WBC (Bld) 77.2 % Normal 40.0-80.0 [facility] Comment on above: Performed By: #### 5 7021-8 ####CALE Roth ([id number])[facility] ([facility])[address] [place] [address] Nucleated RBC/100 WBC (Bld) [Ratio] 0.0 /100 WBCs Normal 0.0-0.0 [facility] Comment on above: Performed By: #### 5 7021-8 ####CALE Roth ([id number])[facility] ([facility])[address] [place] [address] Platelets (Bld) [#/Vol] 402 x10*3/uL Normal 150-450 [facility] Comment on above: Performed By: #### 5 7021-8 ####CALE CAI L ([id number])[facility] ([facility])[address] [place] [address] RBC (Bld) [#/Vol] 3.89 x10*6/uL Low 4.00-5.20 [facility] Comment on above: Performed By: #### 5 7021-8 ####CALE TOSCANOMOTZER L ([id number])[facility] ([facility])[address] [place] [address] WBC (Bld) [#/Vol] 7.8 x10*3/uL Normal 4.4-11.3 [facility] Comment on above: Performed By: #### 5 7021-8 ####CALE RUTLEDGEER L ([id number])[facility] ([facility])[address] [place] [address] CSF CELL COUNTon 03-21-2025 Appearance (CSF) Hazy Abnormal Clear [facility] Comment on above: Order Comment: CSF c ell count reference ranges have not been established by [facility]. Based on published references. Performed By: #### C TCS4 ####CALE Roth ([id number])[facility] ([facility])[address] [place] [address] Color (CSF) Colorless Normal Colorless [facility] Comment on above: Order Comment: CSF c ell count reference ranges have not been established by [facility]. Based on published references. Performed By: #### C TCS4 ####CALE PARKERTZER L ([id number])[facility] ([facility])[address] [place] [address] Color (Spun CSF) Colorless Normal [facility] Comment on above: Order Comment: CSF c ell count reference ranges have not been established by [facility]. Based on published references. Performed By: #### C TCS4 ####CALE PARKERTZER L ([id number])[facility] ([facility])[address] [place] [address] RBC Auto (CSF) [#/Vol] 1435 /uL High 0-5 [facility] Comment on above: Order Comment: CSF c ell count reference ranges have not been established by [facility]. Based on published references. Result Comment: Lucy shepherd hemacytometer count. Performed By: #### C TCS4 ####CALE Roth ([id number])[facility] ([facility])[address] [place] [address] Tube number Nom (CSF) [ID] Tube 1 Normal [facility] Comment on above: Order Comment: CSF c ell count reference ranges have not been established by [facility]. Based on published references. Performed By: #### C TCS4 ####CALE Roth ([id number])[facility] ([facility])[address] [place] [address] WBC Auto (CSF) [#/Vol] <3 Normal 1-5 [facility] Comment on above: Order Comment: CSF c ell count reference ranges have not been established by [facility]. Based on published references. Performed By: #### C TCS4 ####CALE Roth ([id number])[facility] ([facility])[address] [place] [address] 23721 CSF DIFFERENTIALon 5 Cells Counted Total (CSF) [#] 1 Normal [facility] Comment on above: Order Comment: CSF c ell differential reference ranges have not been established by [facility]. Based on published references. Performed By: #### D FCSF ####CALE Roth ([id number])[facility] ([facility])[address] [place] [address] Lymphocytes/100 WBC Manual cnt (CSF) 100 % High 28-96 [facility] Comment on above: Order Comment: CSF c ell differential reference ranges have not been established by [facility]. Based on published references. Performed By: #### D FCSF ####CALE Roth ([id number])[facility] ([facility])[address] [place] [address] Segmented neutrophils/100 WBC Manual cnt (CSF) 0 % Normal 0-5 [facility] Comment on above: Order Comment: CSF c ell differential reference ranges have not been established by [facility]. Based on published references. Performed By: #### D FCSF ####CALE Roth ([id number])[facility] ([facility])[address] [place] [address] HEAD WITHOUT CONTRAST VOL UMETRIC SURGICAL PLANNINGon 03-21-2025 CT HEAD WITHOUT CONTRAST VOLUMETRIC SURGICAL PLANNING Normal [facility] Calcium.ionizedon 03-21-2025 Calcium.ionized (Bld) [Moles/Vol] 1.22 mmol/L Normal 1.1-1.33 [facility] Comment on above: Result Comment: The performance characteristics of ionized calcium testedin heparinized plasma or serum [facility].Testing on heparinized plasma or serum is not approved bythe FDA; however, such approval is not necessary. Performed By: #### 1 994-3 ####CALE Roth ([id number])[facility] ([facility])[address] [place] [address] Choriogonadotropin.beta subu niton 03-21-2025 HCG.beta subunit Qn m[IU]/mL Normal <5 [facility] Comment on above: Order Comment: Total HCG measurement is performed using the Siemens Atellica immunoassay which detects intact HCG and free beta HCG subunit. This test is not indicated for use as a tumor marker. HCG testing is performed using a different test methodology at [facility] than other [facility]. Direct result comparison should only be made within the same method. Performed By: #### 2 1198-7 ####CALE Roth ([id number])[facility] ([facility])[address] [place], [place] [address] ECG 12-LEADon 03-21-2025 ECG 12-LEAD Ventricular Rate 119 Atrial Rate 119 P-R Interval 154 QRS Duration 80 Q-T Interval 322 QTC Calculation(Bazett) 452 P [place] 69 R [place] 93 T [place] 5 QRS Count 19 Q Onset 220 P Onset 143 P Offset 199 T Offset 381 QTC Fredericia 404 Diagnosis Sinus tachycardia Rightward axis Nonspecific T wave abnormality Abnormal ECG When compared with ECG of 21-MAR-2025 14:09, No significant change was found Confirmed by Kuldip Barriga ([id number]) on 04/06/2025 10:47:23 AM Normal [facility] Glucoseon 03-21-2025 Glucose (CSF) [Mass/Vol] 110 mg/dL High 40-70 [facility] Comment on above: Performed By: #### 2 342-4 ####CALE Roth ([id number])[facility] ([facility])[address] [place] [address] Glucose Test strip manual (B ld) [Mass/Vol]on 03-21-2025 Glucose [Mass/Vol] 216 mg/dL High 7499 [facility] Comment on above: Performed By: #### 2 341-6 ####CALE Roth ([id number])[facility] ([facility])[address] [place] [address] Glucose [Mass/Vol] 162 mg/dL High [address] [place] [address] Comment on above: Performed By: #### 2 341-6 ####CALE Roth ([id number])[facility] ([facility])[address] [place] [address] Glucose [Mass/Vol] 166 mg/dL High [address] [place] [address] Comment on above: Performed By: #### 2 341-6 ####CALE Roth ([id number])[facility] ([facility])[address] [place] [address] Glucose [Mass/Vol] 122 mg/dL High [address] [place] [address] Comment on above: Performed By: #### 2 341-6 ####CALE Roth ([id number])[facility] ([facility])[address]67 [place] [address] HCG ( test) IA.rapi d Ql (U)on 03-21-2025 HCG ( test) Ql (U) Negative Normal NEGATIVE [facility] Comment on above: Performed By: #### 8 0384-1 ####CALE Roth ([id number])[facility] ([facility])[address] [place] [address] Magnesiumon 03-21-2025 Magnesium [Mass/Vol] 2.08 mg/dL Normal 1.60-2.40 [facility] Comment on above: Performed By: #### 1 9123-9 ####CALE Roth ([id number])[facility] ([facility])[address] [place] [address] PT and aPTT panel Coag (PPP) on 03-21-2025 aPTT Coag (PPP) [Time] 30 s Normal 26-36 [facility] Comment on above: Order Comment: The A PTT is no longer used for monitoring Unfractionated Heparin Therapy. For monitoring Heparin Therapy, use the Heparin Assay. Performed By: #### 3 4529-8 ####CALE Roth ([id number])[facility] ([facility])[address] [place] [address] 15678 INR Coag (PPP) [Relative time] 1.1 Normal 0.9-1.1 [facility] Comment on above: Order Comment: The A PTT is no longer used for monitoring Unfractionated Heparin Therapy. For monitoring Heparin Therapy, use the Heparin Assay. Performed By: #### 3 4529-8 ####CALE Roth ([id number])[facility] ([facility])[address]269 [place] [address] PT Coag (PPP) [Time] 12.6 s High 9.8-12.4 [facility] Comment on above: Order Comment: The A PTT is no longer used for monitoring Unfractionated Heparin Therapy. For monitoring Heparin Therapy, use the Heparin Assay. Performed By: #### 3 4529-8 ####CALE Roth ([id number])[facility] ([facility])[address] [place] [address] Proteinon 03-21-2025 Protein (CSF) [Mass/Vol] 15 mg/dL Normal 15-45 [facility] Comment on above: Performed By: #### 2 880-3 ####CALE CAI L ([id number])[facility] ([facility])[address] [place] [address] Renal function 2000 panelon 03-21-2025 Albumin BCP dye [Mass/Vol] 4.3 g/dL Normal 3.4-5.0 [facility] Comment on above: Performed By: #### 2 4362-6 ####CALE CAI L ([id number])[facility] ([facility])[address] [place] [address] Anion gap [Moles/Vol] 15 mmol/L Normal 10-20 [facility] Comment on above: Performed By: #### 2 4362-6 ####CALE Roth ([id number])[facility] ([facility])[address]60 [place] [address] Calcium [Mass/Vol] 9.7 mg/dL Normal 8.6-10.6 [facility] Comment on above: Performed By: #### 2 4362-6 ####CALE CAI L ([id number])[facility] ([facility])[address]99 [place] [address] Chloride [Moles/Vol] 101 mmol/L Normal 98-107 [facility] Comment on above: Performed By: #### 2 4362-6 ####CALE CAI L ([id number])[facility] ([facility])[address] [place] [address] CO2 [Moles/Vol] 27 mmol/L Normal 21-32 [facility] Comment on above: Performed By: #### 2 4362-6 ####CALE CAI L ([id number])[facility] ([facility])[address]44 [place] [address] Creatinine [Mass/Vol] 0.41 mg/dL Low 0.50-1.05 [facility] Comment on above: Performed By: #### 2 4362-6 ####CALE CAI L ([id number])[facility] ([facility])[address] [place] [address] Glomerular filtration rate >90 Normal >60 [facility] Comment on above: Result Comment: Calc ulations of estimated GFR are performed using the 2020 CKD-EPI Study Refit equation without the race variable for the IDMS-Traceable creatinine methods.https://jasn.asnjournals.org/content//ASN .1866343487 Performed By: #### 2 4362-6 ####CALE Roth ([id number])[facility] ([facility])[address] [place] [address] Glucose [Mass/Vol] 197 mg/dL High 74-99 [facility] Comment on above: Performed By: #### 2 4362-6 ####CALE Roth ([id number])[facility] ([facility])[address] [place] [address] Phosphate [Mass/Vol] 3.2 mg/dL Normal 2.5-4.9 [facility] Comment on above: Performed By: #### 2 4362-6 ####CALE Roth ([id number])[facility] ([facility])[address]28 [place] [address] Potassium [Moles/Vol] 4.1 mmol/L Normal 3.5-5.3 [facility] Comment on above: Performed By: #### 2 4362-6 ####CALE CAI L ([id number])[facility] ([facility])[address] [place] [address] Sodium [Moles/Vol] 139 mmol/L Normal 136-145 [facility] Comment on above: Performed By: #### 2 4362-6 ####CALE Roth ([id number])[facility] ([facility])[address]143 [place] [address] Urea nitrogen [Mass/Vol] 11 mg/dL Normal 6-23 [facility] Comment on above: Performed By: #### 2 4362-6 ####CALE Roth ([id number])[facility] ([facility])[address] [place] [address] Urinalysis complete W Reflex Culture panel (U)on 03-21-2025 Appearance (U) Ex.Turbid Normal Clear [facility] Comment on above: Order Comment: OVER is reported when the result is greater than the clinically reportable range. Performed By: #### 5 8077-9 ####CALE Roth ([id number])[facility] ([facility])[id number] [place] [address] Bilirubin (U) [Mass/Vol] Negative Normal NEGATIVE [facility] Comment on above: Order Comment: OVER is reported when the result is greater than the clinically reportable range. Performed By: #### 5 8077-9 ####CALE Roth ([id number])[facility] ([facility])[address] [place] [address] Color (U) Light-[place] Normal Light-[place] w, Yellow, Dark-Yellow [facility] Comment on above: Order Comment: OVER is reported when the result is greater than the clinically reportable range. Performed By: #### 5 8077-9 ####CALE Roth ([id number])[facility] ([facility])[address] [place] [address] Glucose Auto test strip (U) [Mass/Vol] 50 (TRACE) Abnormal Normal [facility] Comment on above: Order Comment: OVER is reported when the result is greater than the clinically reportable range. Performed By: #### 5 8077-9 ####CALE Roth ([id number])[facility] ([facility])[address] [place] [address] Ketones (U) [Mass/Vol] Negative Normal NEGATIVE [facility] Comment on above: Order Comment: OVER is reported when the result is greater than the clinically reportable range. Performed By: #### 5 8077-9 ####CALE Roth ([id number])[facility] ([facility])[address] [place] [address] Leukocyte esterase Auto test strip Ql (U) 250 Joe/uL Abnormal NEGATIVE [facility] Comment on above: Order Comment: OVER is reported when the result is greater than the clinically reportable range. Performed By: #### 5 8077-9 ####CALE Roth ([id number])[facility] ([facility])[address] [place] [address] Nitrite Auto test strip Ql (U) 2+ Abnormal NEGATIVE [facility] Comment on above: Order Comment: OVER is reported when the result is greater than the clinically reportable range. Performed By: #### 5 8077-9 ####CALE Roth ([id number])[facility] ([facility])[address] [place] [address] pH (U) 7.5 [pH] Normal 5.0, 5.5, 6.0, 6.5, 7.0, 7.5, 8.0 [facility] Comment on above: Order Comment: OVER is reported when the result is greater than the clinically reportable range. Performed By: #### 5 8077-9 ####CALE Roth ([id number])[facility] ([facility])[address]316 [place] [address] Protein (U) [Mass/Vol] Negative Normal NEGATIVE, 10 (TRACE), 20 (TRACE) [facility] Comment on above: Order Comment: OVER is reported when the result is greater than the clinically reportable range. Performed By: #### 5 8077-9 ####CALE Roth ([id number])[facility] ([facility])[address] [place] [address] RBC (U) [#/Vol] OVER (3+) Abnormal NEGATIVE [facility] Comment on above: Order Comment: OVER is reported when the result is greater than the clinically reportable range. Performed By: #### 5 8077-9 ####CALE Roth ([id number])[facility] ([facility])[address] [place] [address] Specific gravity (U) [Rel density] 1.019 Normal 1.005-1.035 [facility] Comment on above: Order Comment: OVER is reported when the result is greater than the clinically reportable range. Performed By: #### 5 8077-9 ####CALE Roth ([id number])[facility] ([facility])[address] [place] [address] Urobilinogen (U) [Mass/Vol] Normal Normal Normal [facility] Comment on above: Order Comment: OVER is reported when the result is greater than the clinically reportable range. Performed By: #### 5 8077-9 ####CALE Roth ([id number])[facility] ([facility])[address] [place] [address] Urinalysis microscopic panel Auto Ql (U)on 03-21-2025 Bacteria Auto (Urine sed) [#/Area] 3+ /HPF Abnormal NONE SEEN [facility] Comment on above: Performed By: #### 5 3315-8 ####CALE Roth ([id number])[facility] ([facility])[id number] [place] [id number] Epithelial cells.squamous Auto (Urine sed) [#/Area] 1-9 (SPARSE) Normal Reference range not established . [facility] Comment on above: Performed By: #### 5 3315-8 ####CALE Roth ([id number])[facility] ([facility])[id number] [place] [address] RBC Auto (Urine sed) [#/Area] >20 Abnormal NONE, 1-2, 3-5 Fort [facility] Comment on above: Performed By: #### 5 3315-8 ####CALE Roth ([id number])[facility] ([facility])[address] [place] [address] WBC Auto (Urine sed) [#/Area] >50 Abnormal 1-5, NONE [facility] Comment on above: Performed By: #### 5 3315-8 ####CALE Roth ([id number])[facility] ([facility])[address] [place] [address] XR CHEST 1 VIEWon 03-21-2025 XR CHEST 1 VIEW Normal [facility] Bacteriaon 03-20-2025 Bacteria identified Cx Nom (CSF) Normal [facility] Comment on above: Performed By: #### 6 06-4 ####CALE Roth ([id number])[facility] ([facility])[address] [place] [address] Bacteria identified Cx Nom (CSF) Abnormal [facility] Comment on above: Performed By: #### 6 06-4 ####CALE Roth ([id number])[facility] ([facility])[address] [place] [address] CBC W Auto Differential pane l (Bld)on 03-20-2025 Basophils (Bld) [#/Vol] 0.03 x10*3/uL Normal 0.00-0.10 [facility] Comment on above: Performed By: #### 5 7021-8 ####CALE Roth ([id number])[facility] ([facility])[address] [place] [address] Basophils/100 WBC (Bld) 0.3 % Normal 0.0-2.0 [facility] Comment on above: Performed By: #### 5 7021-8 ####CALE Roth ([id number])[facility] ([facility])[address] [place] [address] Eosinophils (Bld) [#/Vol] 0.01 x10*3/uL Normal 0.00-0.70 [facility] Comment on above: Performed By: #### 5 7021-8 ####CALE Roth ([id number])[facility] ([facility])[address] [place] [address] Eosinophils/100 WBC (Bld) 0.1 % Normal 0.0-6.0 [facility] Comment on above: Performed By: #### 5 7021-8 ####CALE Roth ([id number])[facility] ([facility])[address] [place] [address] Erythrocyte distribution width (RBC) [Ratio] 12.7 % Normal 11.5-14.5 [facility] Comment on above: Performed By: #### 5 7021-8 ####CALE Roth ([id number])[facility] ([facility])[address] [place] [address] Hematocrit (Bld) [Volume fraction] 30.4 % Low 36.0-46.0 [facility] Comment on above: Performed By: #### 5 7021-8 ####CALE Roth ([id number])[facility] ([facility])[address]252 [place] [address] Hemoglobin (Bld) [Mass/Vol] 10.8 g/dL Low 12.0-16.0 [facility] Comment on above: Performed By: #### 5 7021-8 ####CALE Roth ([id number])[facility] ([facility])[address]104 [place] [address] Immature granulocytes (Bld) [#/Vol] 0.27 x10*3/uL Normal 0.00-0.70 [facility] Comment on above: Performed By: #### 5 7021-8 ####CALE Roth ([id number])[facility] ([facility])[address] [place] [address] Immature granulocytes/100 WBC (Bld) 2.8 % High 0.0-0.9 [facility] Comment on above: Result Comment: Aleisha ture Granulocyte Count (IG) includes promyelocytes, myelocytes and metamyelocytes but does not include bands. Percent differential counts (%) should be interpreted in the context of the absolute cell counts (cells/UL). Performed By: #### 5 7021-8 ####CALE Roth ([id number])[facility] ([facility])[address]80 [place] [address] Lymphocytes (Bld) [#/Vol] 1.06 x10*3/uL Low 1.20-4.80 [facility] Comment on above: Performed By: #### 5 7021-8 ####CALE Roth ([id number])[facility] ([facility])[address] [place] [address] Lymphocytes/100 WBC (Bld) 10.9 % Normal 13.0-44.0 [facility] Comment on above: Performed By: #### 5 7021-8 ####CALE Roth ([id number])[facility] ([facility])[address]842 [place] [address] MCH (RBC) [Entitic mass] 30.0 pg Normal 26.0-34.0 [facility] Comment on above: Performed By: #### 5 7021-8 ####CALE Roth ([id number])[facility] ([facility])[address]803 [place] [address] MCHC (RBC) [Mass/Vol] 35.5 g/dL Normal 32.0-36.0 [facility] Comment on above: Performed By: #### 5 7021-8 ####CALE Roth ([id number])[facility] ([facility])[address]89 [place] [address] MCV (RBC) [Entitic vol] 84 fL Normal 80-100 [facility] Comment on above: Performed By: #### 5 7021-8 ####CALE Roth ([id number])[facility] ([facility])[address]152 [place] [address] Monocytes (Bld) [#/Vol] 0.50 x10*3/uL Normal 0.10-1.00 [facility] Comment on above: Performed By: #### 5 7021-8 ####CALE Roth ([id number])[facility] ([facility])[address]16 [place] [address] Monocytes/100 WBC (Bld) 5.2 % Normal 2.0-10.0 [facility] Comment on above: Performed By: #### 5 7021-8 ####CALE Roth ([id number])[facility] ([facility])[address]955 [place] [address] Neutrophils (Bld) [#/Vol] 7.82 x10*3/uL High 1.20-7.70 [facility] Comment on above: Result Comment: Perc ent differential counts (%) should be interpreted in the context of the absolute cell counts (cells/uL). Performed By: #### 5 7021-8 ####CALE Roth ([id number])[facility] ([facility])[address]86 [place] [address] Neutrophils/100 WBC (Bld) 80.7 % Normal 40.0-80.0 [facility] Comment on above: Performed By: #### 5 7021-8 ####CALE Roth ([id number])[facility] ([facility])[address]105 [place] [address] Nucleated RBC/100 WBC (Bld) [Ratio] 0.0 /100 WBCs Normal 0.0-0.0 [facility] Comment on above: Performed By: #### 5 7021-8 ####CALE CAI L ([id number])[facility] ([facility])[address]159 [place] [address] Platelets (Bld) [#/Vol] 381 x10*3/uL Normal 150-450 [facility] Comment on above: Performed By: #### 5 7021-8 ####CALE Roth ([id number])[facility] ([facility])[address]237 [place] [address] RBC (Bld) [#/Vol] 3.60 x10*6/uL Low 4.00-5.20 [facility] Comment on above: Performed By: #### 5 7021-8 ####CALE CAI L ([id number])[facility] ([facility])[address]98 [place] [address] WBC (Bld) [#/Vol] 9.7 x10*3/uL Normal 4.4-11.3 [facility] Comment on above: Performed By: #### 5 7021-8 ####CALE CAI L ([id number])[facility] ([facility])[address]409 [place] [address] CSF CELL COUNTon 03-20-2025 Appearance (CSF) Clear Normal Clear [facility] Comment on above: Order Comment: CSF c ell count reference ranges have not been established by [facility]. Based on published references. Performed By: #### C TCS4 ####CALE Roth ([id number])[facility] ([facility])[address]40 [place] [address] Color (CSF) [place] Abnormal Colorless [facility] Comment on above: Order Comment: CSF c ell count reference ranges have not been established by [facility]. Based on published references. Performed By: #### C TCS4 ####CALE Roth ([id number])[facility] ([facility])[address]404 [place] [address] Color (Spun CSF) Colorless Normal [facility] Comment on above: Order Comment: CSF c ell count reference ranges have not been established by [facility]. Based on published references. Performed By: #### C TCS4 ####CALE Roth ([id number])[facility] ([facility])[address]364 [place] [address] RBC Manual cnt (CSF) [#/Vol] 3000 /uL High 0-5 [facility] Comment on above: Order Comment: CSF c ell count reference ranges have not been established by [facility]. Based on published references. Performed By: #### C TCS4 ####CALE Roth ([id number])[facility] ([facility])[address]384 [place] [address] Tube number Nom (CSF) [ID] Unspecified Normal [facility] Comment on above: Order Comment: CSF c ell count reference ranges have not been established by [facility]. Based on published references. Performed By: #### C TCS4 ####CALE Roth ([id number])[facility] ([facility])[address]002 [place] [address] WBC Manual cnt (CSF) [#/Vol] 1 /uL Normal 1-5 [facility] Comment on above: Order Comment: CSF c ell count reference ranges have not been established by [facility]. Based on published references. Performed By: #### C TCS4 ####CALE Roth ([id number])[facility] ([facility])[address] [place] [address] Appearance (CSF) Clear Normal Clear [facility] Comment on above: Order Comment: CSF c ell count reference ranges have not been established by [facility]. Based on published references. Performed By: #### C TCS4 ####CALE CAI L ([id number])[facility] ([facility])[address] [place] [address] Color (CSF) [place] Abnormal Colorless [facility] Comment on above: Order Comment: CSF c ell count reference ranges have not been established by [facility]. Based on published references. Performed By: #### C TCS4 ####CALE CAI L ([id number])[facility] ([facility])[address] [place] [address] Color (Spun CSF) Colorless Normal [facility] Comment on above: Order Comment: CSF c ell count reference ranges have not been established by [facility]. Based on published references. Performed By: #### C TCS4 ####CALE Roth ([id number])[facility] ([facility])[id number] [place] [address] RBC Auto (CSF) [#/Vol] 2000 /uL High 0-5 [facility] Comment on above: Order Comment: CSF c ell count reference ranges have not been established by [facility]. Based on published references. Performed By: #### C TCS4 ####CALE Roth ([id number])[facility] ([facility])[address] [place] [address] Tube number Nom (CSF) [ID] Unspecified Normal [facility] Comment on above: Order Comment: CSF c ell count reference ranges have not been established by [facility]. Based on published references. Performed By: #### C TCS4 ####CALE Roth ([id number])[facility] ([facility])[address]378 [place] [address] WBC Auto (CSF) [#/Vol] 2 /uL Normal 1-5 [facility] Comment on above: Order Comment: CSF c ell count reference ranges have not been established by [facility]. Based on published references. Performed By: #### C TCS4 ####CALE Roth ([id number])[facility] ([facility])[address]86 [place] [address] CSF DIFFERENTIALon 5 Cells Counted Total (CSF) [#] 1 Normal [facility] Comment on above: Order Comment: CSF c ell differential reference ranges have not been established by [facility]. Based on published references. Performed By: #### D FCSF ####CALE Roth ([id number])[facility] ([facility])[address]64 [place] [address] Segmented neutrophils/100 WBC Manual cnt (CSF) 100 % High 0-5 [facility] Comment on above: Order Comment: CSF c ell differential reference ranges have not been established by [facility]. Based on published references. Performed By: #### D FCSF ####CALE Roth ([id number])[facility] ([facility])[address]794 [place] [address] Cells Counted Total (CSF) [#] 9 Normal [facility] Comment on above: Order Comment: CSF c ell differential reference ranges have not been established by [facility]. Based on published references. Performed By: #### D FCSF ####CALE CAI L ([id number])[facility] ([facility])[address]997 [place] [address] Lymphocytes/100 WBC Manual cnt (CSF) 67 % Normal 28-96 [facility] Comment on above: Order Comment: CSF c ell differential reference ranges have not been established by [facility]. Based on published references. Performed By: #### D FCSF ####CALE CAI L ([id number])[facility] ([facility])[address]25 [place] [address] Monocytes+Macrophage s/100 WBC Manual cnt (CSF) 22 % Normal 16-56 [facility] Comment on above: Order Comment: CSF c ell differential reference ranges have not been established by [facility]. Based on published references. Performed By: #### D FCSF ####CALE Roth ([id number])[facility] ([facility])[address]82 [place] [address] Segmented neutrophils/100 WBC Manual cnt (CSF) 11 % High 0-5 [facility] Comment on above: Order Comment: CSF c ell differential reference ranges have not been established by [facility]. Based on published references. Result Comment: Bact eria Present Performed By: #### D FCSF ####CALE Roth ([id number])[facility] ([facility])[address] [place] [address] Calcium.ionizedon 03-20-2025 Calcium.ionized (Bld) [Moles/Vol] 1.20 mmol/L Normal 1.1-1.33 [facility] Comment on above: Result Comment: The performance characteristics of ionized calcium testedin heparinized plasma or serum have [facility].Testing on heparinized plasma or serum is not approved bythe FDA; however, such approval is not necessary. Performed By: #### 1 994-3 ####CALE Roth ([id number])[facility] ([facility])[id number] [place] [address] Glucoseon 03-20-2025 Glucose (CSF) [Mass/Vol] 89 mg/dL High 40-70 [facility] Comment on above: Performed By: #### 2 342-4 ####CALE Roth ([id number])[facility] ([facility])[address]89 [place] [address] Glucose (CSF) [Mass/Vol] 81 mg/dL High 40-70 [facility] Comment on above: Performed By: #### 2 342-4 ####CALE Roth ([id number])[facility] ([facility])[address] [place] [address] Glucose Test strip manual (B ld) [Mass/Vol]on 03-20-2025 Glucose [Mass/Vol] 204 mg/dL High [address] [place] [address] Comment on above: Performed By: #### 2 341-6 ####CALE Roth ([id number])[facility] ([facility])[address]990 [place] [address] Glucose [Mass/Vol] 141 mg/dL High [address] [place] [address] Comment on above: Performed By: #### 2 341-6 ####CALE Roth ([id number])[facility] ([facility])[address]774 [place] [address] Glucose [Mass/Vol] 129 mg/dL High [address] [place] [address] Comment on above: Performed By: #### 2 341-6 ####CALE Roth ([id number])[facility] ([facility])[address]97 [place] [address] Glucose [Mass/Vol] 111 mg/dL High [address] [place] [address] Comment on above: Performed By: #### 2 341-6 ####CALE Roth ([id number])[facility] ([facility])[address]12 [place] [address] Glucose [Mass/Vol] 125 mg/dL High [address] [place] [address] Comment on above: Performed By: #### 2 341-6 ####CALE Roth ([id number])[facility] ([facility])[address]13 [place] [address] Magnesiumon 03-20-2025 Magnesium [Mass/Vol] 1.93 mg/dL Normal 1.60-2.40 [facility] Comment on above: Performed By: #### 1 9123-9 ####CALE Roth ([id number])[facility] ([facility])[address]102 [place] [address] Pathologist review Ibrahima (Unsp spec) [Interp]on 03-20-2025 PATH REVIEW-CELL CT,CSF Hemorrhagic specimen with bacteria present, correlate with separate microbiology result. Normal [facility] Comment on above: Result Comment: Elec tronically signed out by Alberto Harrell MD on 03/22/25 at 3:45 PM.By the signature on this report, the individual or group listed as making the Final Interpretation/Diagnosis certifies that they have reviewed this case. Performed By: #### 5 9465-5 ####CALE Roth ([id number])[facility] ([facility])[address] [place] [address] PATH REVIEW-CELL CT,CSF Hemorrhagic specimen with many bacteria present, correlate with separate microbiology result. Normal [facility] Comment on above: Result Comment: Elec tronically signed out by Alberto Harrell MD on 03/22/25 at 3:45 PM.By the signature on this report, the individual or group listed as making the Final Interpretation/Diagnosis certifies that they have reviewed this case. Performed By: #### 5 9465-5 ####CALE Roth ([id number])[facility] ([facility])[id number] [place] [address] Proteinon 03-20-2025 Protein (CSF) [Mass/Vol] 16 mg/dL Normal 15-45 [facility] Comment on above: Performed By: #### 2 880-3 ####CALE Roth ([id number])[facility] ([facility])[id number] [place] [address] Protein (CSF) [Mass/Vol] 23 mg/dL Normal 15-45 [facility] Comment on above: Performed By: #### 2 880-3 ####CALE CAI L ([id number])[facility] ([facility])[id number] [place] [address] Renal function 2000 panelon 03-20-2025 Albumin BCP dye [Mass/Vol] 4.1 g/dL Normal 3.4-5.0 [facility] Comment on above: Performed By: #### 2 4362-6 ####CALE CAI L ([id number])[facility] ([facility])[address] [place] [address] [place] [address] Anion gap [Moles/Vol] 13 mmol/L Normal 10-20 [facility] Comment on above: Performed By: #### 2 4362-6 ####CALE Roth (19561)[facility] ([facility])[address]64 [place] [address] Calcium [Mass/Vol] 9.3 mg/dL Normal 8.6-10.6 [facility] Comment on above: Performed By: #### 2 4362-6 ####CALE Roth ([id number])[facility] ([facility])[address]779 [place] [address] Chloride [Moles/Vol] 106 mmol/L Normal 98-107 [facility] Comment on above: Performed By: #### 2 4362-6 ####CALE Roth ([id number])[facility] ([facility])[address]298 [place] [address] CO2 [Moles/Vol] 26 mmol/L Normal 21-32 [facility] Comment on above: Performed By: #### 2 4362-6 ####CALE Roth ([id number])[facility] ([facility])[address]002 [place] [address] Creatinine [Mass/Vol] 0.36 mg/dL Low 0.50-1.05 [facility] Comment on above: Performed By: #### 2 4362-6 ####CALE CAI L ([id number])[facility] ([facility])[address]755 [place] [address] Glomerular filtration rate >90 Normal >60 [facility] Comment on above: Result Comment: Calc ulations of estimated GFR are performed using the 2020 CKD-EPI Study Refit equation without the race variable for the IDMS-Traceable creatinine methods.https://jasn.asnjournals.org/content/early/ASN .8293487350 Performed By: #### 2 4362-6 ####CALE Roth ([id number])[facility] ([facility])[address] [place] [address] Glucose [Mass/Vol] 130 mg/dL High 74-99 [facility] Comment on above: Performed By: #### 2 4362-6 ####CALE Roth ([id number])[facility] ([facility])[address] [place] [address] Phosphate [Mass/Vol] 1.9 mg/dL Low 2.5-4.9 [facility] Comment on above: Performed By: #### 2 4362-6 ####CALE Roth ([id number])[facility] ([facility])[address]144 [place] [address] Potassium [Moles/Vol] 4.0 mmol/L Normal 3.5-5.3 [facility] Comment on above: Performed By: #### 2 4362-6 ####CALE Roth ([id number])[facility] ([facility])[address]395 [place] [address] Sodium [Moles/Vol] 141 mmol/L Normal 136-145 [facility] Comment on above: Performed By: #### 2 4362-6 ####CALE Roth ([id number])[facility] ([facility])[address]53 [place] [address] Urea nitrogen [Mass/Vol] 10 mg/dL Normal 6-23 [facility] Comment on above: Performed By: #### 2 4362-6 ####CALE Roth ([id number])[facility] ([facility])[address]60 [place] [address] Albumin BCP dye [Mass/Vol] 4.0 g/dL Normal 3.4-5.0 [facility] Comment on above: Performed By: #### 2 4362-6 ####CALE Roth ([id number])[facility] ([facility])[address] [facility] [place] [address] Anion gap [Moles/Vol] 12 mmol/L Normal 10-20 [facility] Comment on above: Performed By: #### 2 4362-6 ####CALE Roth ([id number])[facility] ([facility])[address]256 [place] [address] Calcium [Mass/Vol] 9.4 mg/dL Normal 8.6-10.6 [facility] Comment on above: Performed By: #### 2 4362-6 ####CALE CAI L ([id number])[facility] ([facility])[address]166 [place] [address] Chloride [Moles/Vol] 101 mmol/L Normal 98-107 [facility] Comment on above: Performed By: #### 2 4362-6 ####CALE CAI L ([id number])[facility] ([facility])[address]33 [place] [address] CO2 [Moles/Vol] 27 mmol/L Normal 21-32 [facility] Comment on above: Performed By: #### 2 4362-6 ####CALE CAI L ([id number])[facility] ([facility])[id number] [place] [address] Creatinine [Mass/Vol] 0.41 mg/dL Low 0.50-1.05 [facility] Comment on above: Performed By: #### 2 4362-6 ####CALE CAI L ([id number])[facility] ([facility])[id number] [place] [address] Glomerular filtration rate >90 Normal >60 [facility] Comment on above: Result Comment: Calc ulations of estimated GFR are performed using the 2020 CKD-EPI Study Refit equation without the race variable for the IDMS-Traceable creatinine methods.https://jasn.asnjournals.org/content//ASN .9314063164 Performed By: #### 2 4362-6 ####CALE Roth ([id number])[facility] ([facility])[address] [place] [address] Glucose [Mass/Vol] 134 mg/dL High 74-99 [facility] Comment on above: Performed By: #### 2 4362-6 ####CALE Roth ([id number])[facility] ([facility])[address] [place] [address] Phosphate [Mass/Vol] 2.0 mg/dL Low 2.5-4.9 [facility] Comment on above: Performed By: #### 2 4362-6 ####CALE Roth ([id number])[facility] ([facility])[address] [place] [address] Potassium [Moles/Vol] 3.5 mmol/L Normal 3.5-5.3 [facility] Comment on above: Performed By: #### 2 4362-6 ####CALE Roth ([id number])[facility] ([facility])[id number] [place] [address] Sodium [Moles/Vol] 136 mmol/L Normal 136-145 [facility] Comment on above: Performed By: #### 2 4362-6 ####CALE Roth ([id number])[facility] ([facility])[address] [place] [address] Urea nitrogen [Mass/Vol] 13 mg/dL Normal 6-23 [facility] Comment on above: Performed By: #### 2 4362-6 ####CALE Roth ([id number])[facility] ([facility])[id number] [place] [address] CBC W Auto Differential pane l (Bld)on 03-19-2025 Basophils (Bld) [#/Vol] 0.02 x10*3/uL Normal 0.00-0.10 [facility] Comment on above: Performed By: #### 5 7021-8 ####CALE Roth ([id number])[facility] ([facility])[address] [place] [address] Basophils/100 WBC (Bld) 0.1 % Normal 0.0-2.0 [facility] Comment on above: Performed By: #### 5 7021-8 ####CALE Roth ([id number])[facility] ([facility])[id number] [place] [address] Eosinophils (Bld) [#/Vol] 0.00 x10*3/uL Normal 0.00-0.70 [facility] Comment on above: Performed By: #### 5 7021-8 ####CALE Roth ([id number])[facility] ([facility])[id number] [place] [address] Eosinophils/100 WBC (Bld) 0.0 % Normal 0.0-6.0 [facility] Comment on above: Performed By: #### 5 7021-8 ####CALE Roth ([id number])[facility] ([facility])[id number] [place] [address] Erythrocyte distribution width (RBC) [Ratio] 13.0 % Normal 11.5-14.5 [facility] Comment on above: Performed By: #### 5 7021-8 ####CALE Roth ([id number])[facility] ([facility])[id number] [place] [address] Hematocrit (Bld) [Volume fraction] 29.5 % Low 36.0-46.0 [facility] Comment on above: Performed By: #### 5 7021-8 ####CALE Roth ([id number])[facility] ([facility])[id number] [place] [address] Hemoglobin (Bld) [Mass/Vol] 10.5 g/dL Low 12.0-16.0 [facility] Comment on above: Performed By: #### 5 7021-8 ####CALE Roth ([id number])[facility] ([facility])[id number] [place] [address] Immature granulocytes (Bld) [#/Vol] 0.17 x10*3/uL Normal 0.00-0.70 [facility] Comment on above: Performed By: #### 5 7021-8 ####CALE Roth ([id number])[facility] ([facility])[address] [place] [address] Immature granulocytes/100 WBC (Bld) 1.3 % High 0.0-0.9 [facility] Comment on above: Result Comment: Aleisha ture Granulocyte Count (IG) includes promyelocytes, myelocytes and metamyelocytes but does not include bands. Percent differential counts (%) should be interpreted in the context of the absolute cell counts (cells/UL). Performed By: #### 5 7021-8 ####CALE Roth ([id number])[facility] ([facility])[address] [place] [address] Lymphocytes (Bld) [#/Vol] 0.93 x10*3/uL Low 1.20-4.80 [facility] Comment on above: Performed By: #### 5 7021-8 ####CALE Roth ([id number])[facility] ([facility])[address]84 [place] [address] Lymphocytes/100 WBC (Bld) 6.9 % Normal 13.0-44.0 [facility] Comment on above: Performed By: #### 5 7021-8 ####CALE Roth ([id number])[facility] ([facility])[address] [place] [address] MCH (RBC) [Entitic mass] 30.3 pg Normal 26.0-34.0 [facility] Comment on above: Performed By: #### 5 7021-8 ####CALE Roth ([id number])[facility] ([facility])[address]159 [place] [address] MCHC (RBC) [Mass/Vol] 35.6 g/dL Normal 32.0-36.0 [facility] Comment on above: Performed By: #### 5 7021-8 ####CALE Roth ([id number])[facility] ([facility])[address] [place] [address] MCV (RBC) [Entitic vol] 85 fL Normal 80-100 [facility] Comment on above: Performed By: #### 5 7021-8 ####ACLE Roth ([id number])[facility] ([facility])[address]473 [place] [address] Monocytes (Bld) [#/Vol] 0.85 x10*3/uL Normal 0.10-1.00 [facility] Comment on above: Performed By: #### 5 7021-8 ####CALE Roth ([id number])[facility] ([facility])[address]223 [place] [address] Monocytes/100 WBC (Bld) 6.3 % Normal 2.0-10.0 [facility] Comment on above: Performed By: #### 5 7021-8 ####CALE Roth ([id number])[facility] ([facility])[address] [place] [address] Neutrophils (Bld) [#/Vol] 11.53 x10*3/uL High 1.20-7.70 [facility] Comment on above: Result Comment: Perc ent differential counts (%) should be interpreted in the context of the absolute cell counts (cells/uL). Performed By: #### 5 7021-8 ####CALE Roth ([id number])[facility] ([facility])[address] [place] [address] Neutrophils/100 WBC (Bld) 85.4 % Normal 40.0-80.0 [facility] Comment on above: Performed By: #### 5 7021-8 ####CALE Roth ([id number])[facility] ([facility])[address]06 [place] [address] Nucleated RBC/100 WBC (Bld) [Ratio] 0.0 /100 WBCs Normal 0.0-0.0 [facility] Comment on above: Performed By: #### 5 7021-8 ####CALE Roth ([id number])[facility] ([facility])[address]16 [place] [address] Platelets (Bld) [#/Vol] 375 x10*3/uL Normal 150-450 [facility] Comment on above: Performed By: #### 5 7021-8 ####CALE Roth ([id number])[facility] ([facility])[address]260 [place] [address] RBC (Bld) [#/Vol] 3.47 x10*6/uL Low 4.00-5.20 [facility] Comment on above: Performed By: #### 5 7021-8 ####CALE Roth ([id number])[facility] ([facility])[address] [place] [address] WBC (Bld) [#/Vol] 13.5 x10*3/uL High 4.4-11.3 [facility] Comment on above: Performed By: #### 5 7021-8 ####CALE Roth ([id number])[facility] ([facility])[address] [place] [address] CT HEAD WO IV CONTRASTon CT HEAD WO IV CONTRAST Normal [facility] Calcium.ionizedon 03-19-2025 Calcium.ionized (Bld) [Moles/Vol] 1.20 mmol/L Normal 1.1-1.33 [facility] Comment on above: Result Comment: The performance characteristics of ionized calcium testedin heparinized plasma or serum have [facility].Testing on heparinized plasma or serum is not approved bythe FDA; however, such approval is not necessary. Performed By: #### 1 994-3 ####CALE Roth ([id number])[facility] ([facility])[address]551 [place] [address] Glucose Test strip manual (B ld) [Mass/Vol]on 03-19-2025 Glucose [Mass/Vol] 130 mg/dL High 74-99 [facility] Comment on above: Performed By: #### 2 341-6 ####CALE Roth ([id number])[facility] ([facility])[address]208 [place] [address] Glucose [Mass/Vol] 138 mg/dL High -[address] [place] [address] Comment on above: Performed By: #### 2 341-6 ####CALE Roth ([id number])[facility] ([facility])[id number] [place] [address] Glucose [Mass/Vol] 124 mg/dL High [address] [place] [address] Comment on above: Performed By: #### 2 341-6 ####CALE Roth ([id number])[facility] ([facility])[id number] [place] [address] Glucose [Mass/Vol] 127 mg/dL High [address] [place] [address] Comment on above: Performed By: #### 2 341-6 ####CALE Roth ([id number])[facility] ([facility])[id number] [place] [address] Glucose [Mass/Vol] 128 mg/dL High [address] [place] [address] Comment on above: Performed By: #### 2 341-6 ####CALE Roth ([id number])[facility] ([facility])[address]692 [place] [address] Glucose [Mass/Vol] 119 mg/dL High [address] [place] [address] Comment on above: Performed By: #### 2 341-6 ####CALE Roth ([id number])[facility] ([facility])[id number] [place] [address] Hemoglobin.gastrointestinal^ 1st specimenon 03-19-2025 Hemoglobin.gastroint estinal spec 1 Ql (Stl) Positive Abnormal Negative [facility] Comment on above: Order Comment: From gastric contents Performed By: #### 1 4563-1 ####CALE Roth ([id number])[facility] ([facility])[id number] [place] [address] Procalcitoninon 03-19-2025 Procalcitonin [Mass/Vol] ng/mL Normal <=0.07 [facility] Comment on above: Order Comment: Proca [...] Performed By: #### 3 3959-8 ####CALE Roth ([id number])[facility] ([facility])[address]55 [place] [address] Renal function 2000 panelon 03-19-2025 Albumin BCP dye [Mass/Vol] 4.0 g/dL Normal 3.4-5.0 [facility] Comment on above: Performed By: #### 2 4362-6 ####CALE Roth ([id number])[facility] ([facility])[address]69 [place] [address] Anion gap [Moles/Vol] 10 mmol/L Normal 10-20 [facility] Comment on above: Performed By: #### 2 4362-6 ####CALE Roth ([id number])[facility] ([facility])[address]65 [place] [address] Calcium [Mass/Vol] 9.5 mg/dL Normal 8.6-10.6 [facility] Comment on above: Performed By: #### 2 4362-6 ####CALE Roth ([id number])[facility] ([facility])[address]75 [place] [address] Chloride [Moles/Vol] 105 mmol/L Normal 98-107 [facility] Comment on above: Performed By: #### 2 4362-6 ####CALE CAI L ([id number])[facility] ([facility])[address]76 [place] [address] CO2 [Moles/Vol] 30 mmol/L Normal 21-32 [facility] Comment on above: Performed By: #### 2 4362-6 ####CALE Roth ([id number])[facility] ([facility])[address]135 [place] [address] Creatinine [Mass/Vol] 0.45 mg/dL Low 0.50-1.05 [facility] Comment on above: Performed By: #### 2 4362-6 ####CALE Roth ([id number])[facility] ([facility])[address]44 [place] [address] Glomerular filtration rate >90 Normal >60 [facility] Comment on above: Result Comment: Calc ulations of estimated GFR are performed using the 2020 CKD-EPI Study Refit equation without the race variable for the IDMS-Traceable creatinine methods.https://jasn.asnjournals.org/content//ASN .8760382377 Performed By: #### 2 4362-6 ####CALE Roth ([id number])[facility] ([facility])[address]88 [place] [address] Glucose [Mass/Vol] 129 mg/dL High 74-99 [facility] Comment on above: Performed By: #### 2 4362-6 ####CALE CAI L ([id number])[facility] ([facility])[address]122 [place] [address] Phosphate [Mass/Vol] 2.8 mg/dL Normal 2.5-4.9 [facility] Comment on above: Performed By: #### 2 4362-6 ####CALE Roth ([id number])[facility] ([facility])[address]22 [place] [address] Potassium [Moles/Vol] 3.6 mmol/L Normal 3.5-5.3 [facility] Comment on above: Performed By: #### 2 4362-6 ####CALE Roth ([id number])[facility] ([facility])[address]69 [place] [address] Sodium [Moles/Vol] 141 mmol/L Normal 136-145 [facility] Comment on above: Performed By: #### 2 4362-6 ####CALE Roth ([id number])[facility] ([facility])[address]674 [place] [address] Urea nitrogen [Mass/Vol] 13 mg/dL Normal 6-23 [facility] Comment on above: Performed By: #### 2 4362-6 ####CALE Roth ([id number])[facility] ([facility])[address]774 [place] [address] VASC US TRANSCRANIAL DOPPLER (TCD) COMPLETEon 03-19-2025 VASC US TRANSCRANIAL DOPPLER (TCD) COMPLETE Normal [facility] CBC W Auto Differential pane l (Bld)on 03-18-2025 Basophils (Bld) [#/Vol] 0.04 x10*3/uL Normal 0.00-0.10 [facility] Comment on above: Performed By: #### 5 7021-8 ####CALE Roth ([id number])[facility] ([facility])[address]320 [place] [address] Basophils/100 WBC (Bld) 0.4 % Normal 0.0-2.0 [facility] Comment on above: Performed By: #### 5 7021-8 ####CALE Roth ([id number])[facility] ([facility])[address]34 [place] [address] Eosinophils (Bld) [#/Vol] 0.01 x10*3/uL Normal 0.00-0.70 [facility] Comment on above: Performed By: #### 5 7021-8 ####CALE Roth ([id number])[facility] ([facility])[address] [place] [address] Eosinophils/100 WBC (Bld) 0.1 % Normal 0.0-6.0 [facility] Comment on above: Performed By: #### 5 7021-8 ####CALE Roth ([id number])[facility] ([facility])[id number] [place] [address] Erythrocyte distribution width (RBC) [Ratio] 13.2 % Normal 11.5-14.5 [facility] Comment on above: Performed By: #### 5 7021-8 ####CALE Roth ([id number])[facility] ([facility])[address] [place] [address] Hematocrit (Bld) [Volume fraction] 33.4 % Low 36.0-46.0 [facility] Comment on above: Performed By: #### 5 7021-8 ####CALE Roth ([id number])[facility] ([facility])[id number] [place] [address] Hemoglobin (Bld) [Mass/Vol] 11.1 g/dL Low 12.0-16.0 [facility] Comment on above: Performed By: #### 5 7021-8 ####CALE Roth ([id number])[facility] ([facility])[id number] [place] [address] Immature granulocytes (Bld) [#/Vol] 0.25 x10*3/uL Normal 0.00-0.70 [facility] Comment on above: Performed By: #### 5 7021-8 ####CALE Roth ([id number])[facility] ([facility])[id number] [place] [address] Immature granulocytes/100 WBC (Bld) 2.5 % High 0.0-0.9 [facility] Comment on above: Result Comment: Aleisha ture Granulocyte Count (IG) includes promyelocytes, myelocytes and metamyelocytes but does not include bands. Percent differential counts (%) should be interpreted in the context of the absolute cell counts (cells/UL). Performed By: #### 5 7021-8 ####CALE Roth ([id number])[facility] ([facility])[address]556 [place] [address] Lymphocytes (Bld) [#/Vol] 0.77 x10*3/uL Low 1.20-4.80 [facility] Comment on above: Performed By: #### 5 7021-8 ####CALE Roth ([id number])[facility] ([facility])98757 [place] [address] Lymphocytes/100 WBC (Bld) 7.6 % Normal 13.0-44.0 [facility] Comment on above: Performed By: #### 5 7021-8 ####CALE Roth ([id number])[facility] ([facility])[address]243 [place] [address] MCH (RBC) [Entitic mass] 30.0 pg Normal 26.0-34.0 [facility] Comment on above: Performed By: #### 5 7021-8 ####CALE Roth ([id number])[facility] ([facility])[address]762 [place] [address] MCHC (RBC) [Mass/Vol] 33.2 g/dL Normal 32.0-36.0 [facility] Comment on above: Performed By: #### 5 7021-8 ####CALE Roth ([id number])[facility] ([facility])10864 [place] [address] MCV (RBC) [Entitic vol] 90 fL Normal 80-100 [facility] Comment on above: Performed By: #### 5 7021-8 ####CALE Roth ([id number])[facility] ([facility])[address]558 [place] [address] Monocytes (Bld) [#/Vol] 0.43 x10*3/uL Normal 0.10-1.00 [facility] Comment on above: Performed By: #### 5 7021-8 ####CALE Roth ([id number])[facility] ([facility])35504 [place] [address] Monocytes/100 WBC (Bld) 4.2 % Normal 2.0-10.0 [facility] Comment on above: Performed By: #### 5 7021-8 ####CALE TOSCANOMOTZER L ([id number])[facility] ([facility])[address]68 [place] [address] Neutrophils (Bld) [#/Vol] 8.65 x10*3/uL High 1.20-7.70 [facility] Comment on above: Result Comment: Perc ent differential counts (%) should be interpreted in the context of the absolute cell counts (cells/uL). Performed By: #### 5 7021-8 ####CALE CAI L ([id number])[facility] ([facility])[address]17 [place] [address] Neutrophils/100 WBC (Bld) 85.2 % Normal 40.0-80.0 [facility] Comment on above: Performed By: #### 5 7021-8 ####CALE Roth ([id number])[facility] ([facility])[address]59 [place] [address] Nucleated RBC/100 WBC (Bld) [Ratio] 0.0 /100 WBCs Normal 0.0-0.0 [facility] Comment on above: Performed By: #### 5 7021-8 ####CALE TOSCANOMOTZER L ([id number])[facility] ([facility])[address]245 [place] [address] Platelets (Bld) [#/Vol] 387 x10*3/uL Normal 150-450 [facility] Comment on above: Performed By: #### 5 7021-8 ####CALE TOSCANOMOISAURA L ([id number])[facility] ([facility])[address]658 [place] [address] RBC (Bld) [#/Vol] 3.70 x10*6/uL Low 4.00-5.20 [facility] Comment on above: Performed By: #### 5 7021-8 ####CALE Roth ([id number])[facility] ([facility])[address]46 [place] [address] WBC (Bld) [#/Vol] 10.2 x10*3/uL Normal 4.4-11.3 [facility] Comment on above: Performed By: #### 5 7021-8 ####CALE Roth ([id number])[facility] ([facility])[address] [place] [address] CT HEAD WO IV CONTRASTon CT HEAD WO IV CONTRAST Normal [facility] Calcium.ionizedon 03-18-2025 Calcium.ionized (Bld) [Moles/Vol] 1.22 mmol/L Normal 1.1-1.33 [facility] Comment on above: Result Comment: The performance characteristics of ionized calcium testedin heparinized plasma or serum have [facility].Testing on heparinized plasma or serum is not approved bythe FDA; however, such approval is not necessary. Performed By: #### 1 994-3 ####CALE Roth ([id number])[facility] ([facility])[address]208 [place] [address] Gas and Carbon monoxide and Electrolytes panel (BldA)on 03-18-2025 Anion gap 4 (BldA) [Moles/Vol] 10 mmo/L Normal 04-17 [facility] Comment on above: Performed By: #### 9 3685-6 ####CALE Roht ([id number])[facility] ([facility])[address]82 [place] [address] Base excess Calc (Bld) [Moles/Vol] 4.4 mmol/L High -2.0-3.0 [facility] Comment on above: Performed By: #### 9 3685-6 ####CALE Roth ([id number])[facility] ([facility])[address]955 [place] [address] Calcium.ionized (BldA) [Moles/Vol] 1.20 mmol/L Normal 1.10-1.33 [facility] Comment on above: Performed By: #### 9 3685-6 ####CALE Roth ([id number])[facility] [address] [facility] ([facility])[address] [place] [address] Chloride (BldA) [Moles/Vol] 107 mmol/L Normal 98-107 [facility] Comment on above: Performed By: #### 9 3685-6 ####CALE Roth ([id number])[facility] [address] [facility] ([facility])[id number] [place] [address] CO2 (Bld) [Partial pressure] 39 mm Hg Normal 38-42 [facility] Comment on above: Performed By: #### 9 3685-6 ####CALE Roth ([id number])[facility] [address] [facility] ([facility])[id number] [place] [address] Glucose [Mass/Vol] 125 mg/dL High 74-99 [facility] Comment on above: Performed By: #### 9 3685-6 ####CALE Roth ([id number])[facility] [address] [facility] ([facility])[id number] [place] [address] HCO3 (Bld) [Moles/Vol] 28.4 mmol/L High 22.0-26.0 [facility] Comment on above: Performed By: #### 9 3685-6 ####CALE Roth ([id number])[facility] [address] [facility] ([facility])[id number] [place] [address] Hematocrit Est (Bld) [Volume fraction] 34.0 % Low 36.0-46.0 [facility] Comment on above: Performed By: #### 9 3685-6 ####CALE Roth ([id number])[facility] [address] [facility] ([facility])[id number] [place] [address] Hemoglobin (Bld) [Mass/Vol] 11.3 g/dL Low 12.0-16.0 [facility] Comment on above: Performed By: #### 9 3685-6 ####CALE Roth ([id number])[facility] [address] [facility] ([facility])[address] [place] [address] Inhaled oxygen concentration 30 % Normal [facility] Comment on above: Performed By: #### 9 3685-6 ####CALE Roth ([id number])[facility] [address] LAB ([facility])[id number] [place] [address] 7[address]18 Lactate (BldA) [Moles/Vol] 0.6 mmol/L Normal 0.4-2.0 [facility] Comment on above: Performed By: #### 9 3685-6 ####CALE Roth ([id number])[facility] ([facility])[id number] [place] [address] 65216 Oxygen (Bld) [Partial pressure] 142 mm Hg High 85-95 [facility] Comment on above: Performed By: #### 9 3685-6 ####CALE Roth ([id number])[facility] ([facility])[address] [place] [address] 66590 Oxyhemoglobin (BldA) [Mass fraction] 98.2 % High 94.0-98.0 [facility] Comment on above: Performed By: #### 9 3685-6 ####CALE Roth ([id number])[facility] ([facility])[id number] [place] [address] 12238 pH (Bld) 7.47 [pH] High 7.38-7.42 [facility] Comment on above: Performed By: #### 9 7145-6 ####CALE Roth ([id number])[facility] ([facility])[address] [place] [address] 97142 Potassium (BldA) [Moles/Vol] 3.2 mmol/L Low 3.5-5.3 [facility] Comment on above: Performed By: #### 9 3035-6 ####CALE Roth ([id number])[facility] ([facility])[address]267 [place] [address] Sodium (BldA) [Moles/Vol] 142 mmol/L Normal 136-145 [facility] Comment on above: Performed By: #### 9 3685-6 ####CALE Roth ([id number])[facility] ([facility])[address]1985 [place] [address] Glucose Test strip manual (B ld) [Mass/Vol]on 03-18-2025 Glucose [Mass/Vol] 119 mg/dL High 74-99 [facility] Comment on above: Performed By: #### 2 341-6 ####CALE Roth ([id number])[facility] ([facility])[address]195 [place] [address] Glucose [Mass/Vol] 144 mg/dL High 74-99 [facility] Comment on above: Performed By: #### 2 341-6 ####CALE Roth ([id number])[facility] ([facility])[address]76 [place] [address] Glucose [Mass/Vol] 99 mg/dL Normal 74-99 [facility] Comment on above: Performed By: #### 2 341-6 ####CALE Roth ([id number])[facility] ([facility])[address]450 [place] [address] Glucose [Mass/Vol] 99 mg/dL Normal 74-99 [facility] Comment on above: Performed By: #### 2 341-6 ####CALE Roth ([id number])[facility] ([facility])[address]999 [place] [address] Glucose [Mass/Vol] 131 mg/dL High 74-99 [facility] Comment on above: Performed By: #### 2 341-6 ####CALE Roth ([id number])[facility] ([facility])[address]137 [place] [address] MR BRAIN WO IV CONTRASTon MR BRAIN WO IV CONTRAST Normal [facility] Magnesiumon 03-18-2025 Magnesium [Mass/Vol] 2.17 mg/dL Normal 1.60-2.40 [facility] Comment on above: Performed By: #### 1 9123-9 ####CALE Roth ([id number])[facility] ([facility])[address]78 [place] [address] Renal function 2000 panelon 03-18-2025 Albumin BCP dye [Mass/Vol] 4.2 g/dL Normal 3.4-5.0 [facility] Comment on above: Performed By: #### 2 4362-6 ####CALE Roth ([id number])[facility] ([facility])[id number] [place] [address] 71241 Anion gap [Moles/Vol] 11 mmol/L Normal 10-20 [facility] Comment on above: Performed By: #### 2 4362-6 ####CALE Roth ([id number])[facility] ([facility])[address]226 [place] [address] Calcium [Mass/Vol] 9.6 mg/dL Normal 8.6-10.6 [facility] Comment on above: Performed By: #### 2 4362-6 ####CALE Roth ([id number])[facility] ([facility])[address]42 [place] [address] Chloride [Moles/Vol] 104 mmol/L Normal 98-107 [facility] Comment on above: Performed By: #### 2 4362-6 ####CALE Roth (19554)[facility] ([facility])[address]35 [place] [address] CO2 [Moles/Vol] 29 mmol/L Normal 21-32 [facility] Comment on above: Performed By: #### 2 4362-6 ####CALE Roth ([id number])[facility] ([facility])64553 [place] [address] Creatinine [Mass/Vol] 0.48 mg/dL Low 0.50-1.05 [facility] Comment on above: Performed By: #### 2 4362-6 ####CALE Roth ([id number])[facility] ([facility])[address]60 [place] [address] Glomerular filtration rate >90 Normal >60 [facility] Comment on above: Result Comment: Calc ulations of estimated GFR are performed using the 2020 CKD-EPI Study Refit equation without the race variable for the IDMS-Traceable creatinine methods.https://jasn.asnjournals.org/content//ASN .6894580530 Performed By: #### 2 4362-6 ####CALE Roth ([id number])[facility] ([facility])[address]66 [place] [address] Glucose [Mass/Vol] 130 mg/dL High 74-99 [facility] Comment on above: Performed By: #### 2 4362-6 ####CALE Roth ([id number])[facility] ([facility])[address]017 [place] [address] Phosphate [Mass/Vol] 2.3 mg/dL Low 2.5-4.9 [facility] Comment on above: Performed By: #### 2 4362-6 ####CALE Roth ([id number])[facility] ([facility])[address]47 [place] [address] Potassium [Moles/Vol] 3.1 mmol/L Low 3.5-5.3 [facility] Comment on above: Performed By: #### 2 4362-6 ####CALE Roth ([id number])[facility] ([facility])23431 [place] [address] Sodium [Moles/Vol] 141 mmol/L Normal 136-145 [facility] Comment on above: Performed By: #### 2 4362-6 ####CALE Roth ([id number])[facility] ([facility])[address]456 [place] [address] Urea nitrogen [Mass/Vol] 17 mg/dL Normal 6-23 [facility] Comment on above: Performed By: #### 2 4362-6 ####CALE Roth ([id number])[facility] ([facility])[address]120 [place] [address] XR CHEST 1 VIEWon 03-18-2025 XR CHEST 1 VIEW Normal [facility] CBC W Auto Differential pane l (Bld)on 03-17-2025 Basophils (Bld) [#/Vol] 0.03 x10*3/uL Normal 0.00-0.10 [facility] Comment on above: Performed By: #### 5 7021-8 ####CALE Roth ([id number])[facility] ([facility])[address] [place] [address] 28063 Basophils/100 WBC (Bld) 0.3 % Normal 0.0-2.0 [facility] Comment on above: Performed By: #### 5 7021-8 ####CALE Roth ([id number])[facility] ([facility])[address]67 [place] [address] Eosinophils (Bld) [#/Vol] 0.00 x10*3/uL Normal 0.00-0.70 [facility] Comment on above: Performed By: #### 5 7021-8 ####CALE Roth ([id number])[facility] ([facility])[address]504 [place] [address] Eosinophils/100 WBC (Bld) 0.0 % Normal 0.0-6.0 [facility] Comment on above: Performed By: #### 5 7021-8 ####CALE Roth ([id number])[facility] ([facility])[address]90 [place] [address] Erythrocyte distribution width (RBC) [Ratio] 13.0 % Normal 11.5-14.5 [facility] Comment on above: Performed By: #### 5 7021-8 ####CALE Roth ([id number])[facility] ([facility])07349 [place] [address] Hematocrit (Bld) [Volume fraction] 27.5 % Low 36.0-46.0 [facility] Comment on above: Performed By: #### 5 7021-8 ####CALE Roth ([id number])[facility] ([facility])[address]957 [place] [address] Hemoglobin (Bld) [Mass/Vol] 9.7 g/dL Low 12.0-16.0 [facility] Comment on above: Performed By: #### 5 7021-8 ####CALE Roth ([id number])[facility] ([facility])[address]48 [place] [address] Immature granulocytes (Bld) [#/Vol] 0.18 x10*3/uL Normal 0.00-0.70 [facility] Comment on above: Performed By: #### 5 7021-8 ####CALE Roth ([id number])[facility] ([facility])09084 [place] [address] Immature granulocytes/100 WBC (Bld) 1.8 % High 0.0-0.9 [facility] Comment on above: Result Comment: Aleisha ture Granulocyte Count (IG) includes promyelocytes, myelocytes and metamyelocytes but does not include bands. Percent differential counts (%) should be interpreted in the context of the absolute cell counts (cells/UL). Performed By: #### 5 7021-8 ####CALE Roth ([id number])[facility] ([facility])[address]07 [place] [address] Lymphocytes (Bld) [#/Vol] 0.65 x10*3/uL Low 1.20-4.80 [facility] Comment on above: Performed By: #### 5 7021-8 ####CALE Roth ([id number])[facility] ([facility])[address]95 [place] [address] Lymphocytes/100 WBC (Bld) 6.4 % Normal 13.0-44.0 [facility] Comment on above: Performed By: #### 5 7021-8 ####CALE Roth ([id number])[facility] ([facility])[id number] [place] [address]329 MCH (RBC) [Entitic mass] 29.9 pg Normal 26.0-34.0 [facility] Comment on above: Performed By: #### 5 7021-8 ####CALE Roth ([id number])[facility] ([facility])[address] [place] [address] 17626 MCHC (RBC) [Mass/Vol] 35.3 g/dL Normal 32.0-36.0 [facility] Comment on above: Performed By: #### 5 7021-8 ####CALE Roth ([id number])[facility] ([facility])[address] [place] [address] MCV (RBC) [Entitic vol] 85 fL Normal 80-100 [facility] Comment on above: Performed By: #### 5 7021-8 ####CALE Roth ([id number])[facility] ([facility])[address] [place] [address] Monocytes (Bld) [#/Vol] 0.52 x10*3/uL Normal 0.10-1.00 [facility] Comment on above: Performed By: #### 5 7021-8 ####CALE Roth ([id number])[facility] ([facility])[address] [place] [address] 89244 Monocytes/100 WBC (Bld) 5.1 % Normal 2.0-10.0 [facility] Comment on above: Performed By: #### 5 7021-8 ####CALE Roth ([id number])[facility] ([facility])[address] [place] [address] 47213 Neutrophils (Bld) [#/Vol] 8.82 x10*3/uL High 1.20-7.70 [facility] Comment on above: Result Comment: Perc ent differential counts (%) should be interpreted in the context of the absolute cell counts (cells/uL). Performed By: #### 5 7021-8 ####CALE Roth ([id number])[facility] ([facility])[address]98 [place] [address] Neutrophils/100 WBC (Bld) 86.4 % Normal 40.0-80.0 [facility] Comment on above: Performed By: #### 5 7021-8 ####CALE Roth ([id number])[facility] ([facility])27035 [place] [address] Nucleated RBC/100 WBC (Bld) [Ratio] 0.0 /100 WBCs Normal 0.0-0.0 [facility] Comment on above: Performed By: #### 5 7021-8 ####CALE Roth ([id number])[facility] ([facility])15290 [place] [address] Platelets (Bld) [#/Vol] 279 x10*3/uL Normal 150-450 [facility] Comment on above: Performed By: #### 5 7021-8 ####CALE Roth ([id number])[facility] ([facility])[address]26 [place] [address] RBC (Bld) [#/Vol] 3.24 x10*6/uL Low 4.00-5.20 [facility] Comment on above: Performed By: #### 5 7021-8 ####CALE Roth ([id number])[facility] ([facility])[address]22 [place] [address] WBC (Bld) [#/Vol] 10.2 x10*3/uL Normal 4.4-11.3 [facility] Comment on above: Performed By: #### 5 7021-8 ####CALE Roth ([id number])[facility] ([facility])[address]35 [place] [address] CT ANGIO CHEST FOR PULMONARY EMBOLISMon 03-17-2025 CT ANGIO CHEST FOR PULMONARY EMBOLISM Normal [facility] Calcium.ionizedon 03-17-2025 Calcium.ionized (Bld) [Moles/Vol] 1.17 mmol/L Normal 1.1-1.33 [facility] Comment on above: Result Comment: The performance characteristics of ionized calcium testedin heparinized plasma or serum have been validated by theindividual laboratory site where testing is performed.Testing on heparinized plasma or serum is not approved bythe FDA; however, such approval is not necessary. Performed By: #### 1 994-3 ####CALE Roth ([id number])[facility] ([facility])[address] [place] [address] 48800 ECG 12-LEADon 03-17-2025 ECG 12-LEAD Ventricular Rate 120 Atrial Rate 120 P-R Interval 160 QRS Duration 78 Q-T Interval 320 QTC Calculation(Bazett) 452 P [place] 73 R [place] 90 T [place] 51 QRS Count 20 Q Onset 220 P Onset 140 P Offset 204 T Offset 380 QTC Fredericia 403 Diagnosis Sinus tachycardia Rightward axis Borderline ECG When compared with ECG of 17-MAR-2025 15:02, No significant change was found Confirmed by Derek Jiang ([id number]) on 03/18/2025 4:39:12 PM Normal [facility] Gas and Carbon monoxide and Electrolytes panel (BldA)on 03-17-2025 Anion gap 4 (BldA) [Moles/Vol] 12 mmo/L Normal - [facility] Comment on above: Performed By: #### 9 3685-6 ####CALE Roth ([id number])[facility] ([facility])[address] [place] [address]105 Base excess Calc (Bld) [Moles/Vol] 1.6 mmol/L Normal -2.0-3.0 [facility] Comment on above: Performed By: #### 9 3685-6 ####CALE Roth ([id number])[facility] ([facility])[address] [place] [address]308 Calcium.ionized (BldA) [Moles/Vol] 1.20 mmol/L Normal 1.10-1.33 [facility] Comment on above: Performed By: #### 9 1955-6 ####CALE Roth ([id number])[facility] ([facility])[address]76 [place] [address] Chloride (BldA) [Moles/Vol] 109 mmol/L High 98-107 [facility] Comment on above: Performed By: #### 9 9285-6 ####CALE Roth ([id number])[facility] ([facility])[address]50 [place] [address] CO2 (Bld) [Partial pressure] 32 mm Hg Low 38-42 [facility] Comment on above: Performed By: #### 9 2475-6 ####CALE Roth ([id number])[facility] ([facility])[address] [place] [address] 91853 Glucose [Mass/Vol] 153 mg/dL High 74-99 [facility] Comment on above: Performed By: #### 9 4756-6 ####CALE Roth ([id number])[facility] ([facility])[address]316 [place] [address] HCO3 (Bld) [Moles/Vol] 24.4 mmol/L Normal 22.0-26.0 [facility] Comment on above: Performed By: #### 9 4795-6 ####CALE Roth ([id number])[facility] ([facility])16679 [place] [address] Hematocrit Est (Bld) [Volume fraction] 37.0 % Normal 36.0-46.0 [facility] Comment on above: Performed By: #### 9 6845-6 ####CALE Roth ([id number])[facility] ([facility])[address] [place] [address]206 Hemoglobin (Bld) [Mass/Vol] 12.3 g/dL Normal 12.0-16.0 [facility] Comment on above: Performed By: #### 9 6461-6 ####CALE Roth ([id number])[facility] ([facility])[address]258 [place] [address] Inhaled oxygen concentration 30 % Normal [facility] Comment on above: Performed By: #### 9 3685-6 ####CALE Roth ([id number])[facility] ([facility])24744 [place] [address] Lactate (BldA) [Moles/Vol] 0.9 mmol/L Normal 0.4-2.0 [facility] Comment on above: Performed By: #### 9 3685-6 ####CALE Roth ([id number])[facility] ([facility])[address]66 [place] [address] Oxygen (Bld) [Partial pressure] 133 mm Hg High 85-95 [facility] Comment on above: Performed By: #### 9 3685-6 ####CALE Roth ([id number])[facility] ([facility])[address] [place] [address] 47899 Oxyhemoglobin (BldA) [Mass fraction] 97.5 % Normal 94.0-98.0 [facility] Comment on above: Performed By: #### 9 3685-6 ####CALE Roth ([id number])[facility] ([facility])[address] [place] [address] 84280 pH (Bld) 7.49 [pH] High 7.38-7.42 [facility] Comment on above: Performed By: #### 9 3685-6 ####CALE Roth ([id number])[facility] ([facility])[address] [place] [address] 99739 Potassium (BldA) [Moles/Vol] 3.5 mmol/L Normal 3.5-5.3 [facility] Comment on above: Performed By: #### 9 3685-6 ####CALE Roth ([id number])[facility] ([facility])[address]40 [place] [address] Sodium (BldA) [Moles/Vol] 142 mmol/L Normal 136-145 [facility] Comment on above: Performed By: #### 9 3685-6 ####CALE CAI L ([id number])[facility] ([facility])07108 [place] [address] Glucose Test strip manual (B ld) [Mass/Vol]on 03-17-2025 Glucose [Mass/Vol] 133 mg/dL High [address] [place] [address] Comment on above: Performed By: #### 2 341-6 ####CALE CAI L ([id number])[facility] ([facility])88964 [place] [address] Glucose [Mass/Vol] 136 mg/dL High [address] [place] [address] Comment on above: Performed By: #### 2 341-6 ####CALE CAI L ([id number])[facility] ([facility])32844 [place] [address] Glucose [Mass/Vol] 134 mg/dL High [address] [place] [address] Comment on above: Performed By: #### 2 341-6 ####CALE CAI L ([id number])[facility] ([facility])13700 [place] [address] Glucose [Mass/Vol] 143 mg/dL High [address] [place] [address] Comment on above: Performed By: #### 2 341-6 ####CALE TOSCANOMOTZGONZALEZ L ([id number])[facility] ([facility])87395 [place] [address] Glucose [Mass/Vol] 131 mg/dL High [address] [place] [address] Comment on above: Performed By: #### 2 341-6 ####CALE CAI L (31589)[facility] ([facility])28650 [place] [address] Glucose [Mass/Vol] 143 mg/dL High [address] [place] [address] Comment on above: Performed By: #### 2 341-6 ####CALE TOSCANOMOTZGONZAELZ L ([id number])[facility] ([facility])[address]248 [place] [address] IR ANGIOGRAM CEREBRAL BILATE RALon 03-17-2025 IR ANGIOGRAM CEREBRAL BILATERAL Normal [facility] Magnesiumon 03-17-2025 Magnesium [Mass/Vol] 1.92 mg/dL Normal 1.60-2.40 [facility] Comment on above: Performed By: #### 1 9123-9 ####CALE Roth ([id number])[facility] ([facility])[address]39 [place] [address] Renal function 2000 panelon 03-17-2025 Albumin BCP dye [Mass/Vol] 4.1 g/dL Normal 3.4-5.0 [facility] Comment on above: Performed By: #### 2 4362-6 ####CALE Roth ([id number])[facility] ([facility])[address] [place] [address]363 Anion gap [Moles/Vol] 15 mmol/L Normal 10-20 [facility] Comment on above: Performed By: #### 2 4362-6 ####CALE Roth ([id number])[facility] ([facility])[address]49 [place] [address] Calcium [Mass/Vol] 9.2 mg/dL Normal 8.6-10.6 [facility] Comment on above: Performed By: #### 2 4362-6 ####CALE Roth ([id number])[facility] ([facility])[address]86 [place] [address] Chloride [Moles/Vol] 107 mmol/L Normal 98-107 [facility] Comment on above: Performed By: #### 2 4362-6 ####CALE Roth (53791)[facility] ([facility])[address]61 [place] [address] CO2 [Moles/Vol] 25 mmol/L Normal 21-32 [facility] Comment on above: Performed By: #### 2 4362-6 ####CALE Roth ([id number])[facility] ([facility])[address] [place] [address] Creatinine [Mass/Vol] 0.41 mg/dL Low 0.50-1.05 [facility] Comment on above: Performed By: #### 2 4362-6 ####CALE Roth ([id number])[facility] ([facility])[address] [place] [address] Glomerular filtration rate >90 Normal >60 [facility] Comment on above: Result Comment: Calc ulations of estimated GFR are performed using the 2020 CKD-EPI Study Refit equation without the race variable for the IDMS-Traceable creatinine methods.https://jasn.asnjournals.org/content//ASN .[email or web address] Performed By: #### 2 4362-6 ####CALE Roth ([id number])[facility] ([facility])[address] [place] [address] Glucose [Mass/Vol] 152 mg/dL High 74-99 [facility] Comment on above: Performed By: #### 2 4362-6 ####CALE Roth ([id number])[facility] ([facility])[address] [place] [address] Phosphate [Mass/Vol] 3.0 mg/dL Normal 2.5-4.9 [facility] Comment on above: Performed By: #### 2 4362-6 ####CALE Roth ([id number])[facility] ([facility])[address] [place] [address] Potassium [Moles/Vol] 3.5 mmol/L Normal 3.5-5.3 [facility] Comment on above: Performed By: #### 2 4362-6 ####CALE Roth ([id number])[facility] ([facility])[address] [place] [address] Sodium [Moles/Vol] 143 mmol/L Normal 136-145 [facility] Comment on above: Performed By: #### 2 4362-6 ####CALE Roth ([id number])[facility] ([facility])[address] [place] [address] Urea nitrogen [Mass/Vol] 12 mg/dL Normal 6-23 [facility] Comment on above: Performed By: #### 2 4362-6 ####CALE Roth ([id number])[facility] ([facility])[address] [facility] [place] [address] Albumin BCP dye [Mass/Vol] 3.8 g/dL Normal 3.4-5.0 [facility] Comment on above: Performed By: #### 2 4362-6 ####CALE Roth ([id number])[facility] ([facility])[address] [place] [address] Anion gap [Moles/Vol] 12 mmol/L Normal 10-20 [facility] Comment on above: Performed By: #### 2 4362-6 ####CALE Roth ([id number])[facility] ([facility])[address] [place] [address] Calcium [Mass/Vol] 9.1 mg/dL Normal 8.6-10.6 [facility] Comment on above: Performed By: #### 2 4362-6 ####CALE Roth ([id number])[facility] ([facility])[address] [place] [address] Chloride [Moles/Vol] 110 mmol/L High 98-107 [facility] Comment on above: Performed By: #### 2 4362-6 ####CALE Roth ([id number])[facility] ([facility])[address] [place] [address] CO2 [Moles/Vol] 25 mmol/L Normal 21-32 [facility] Comment on above: Performed By: #### 2 4362-6 ####CALE Roth ([id number])[facility] ([facility])[address] [place] [address] Creatinine [Mass/Vol] 0.38 mg/dL Low 0.50-1.05 [facility] Comment on above: Performed By: #### 2 4362-6 ####CALE CAI L ([id number])[facility] ([facility])[address] [place] [address] Glomerular filtration rate >90 Normal >60 [facility] Comment on above: Result Comment: Calc ulations of estimated GFR are performed using the 2020 CKD-EPI Study Refit equation without the race variable for the IDMS-Traceable creatinine methods.https://jasn.asnjournals.org/content/early//ASN .3637964916 Performed By: #### 2 4362-6 ####CALE Roth ([id number])[facility] ([facility])[address] [place] [address] Glucose [Mass/Vol] 145 mg/dL High 74-99 [facility] Comment on above: Performed By: #### 2 4362-6 ####CALE CAI L ([id number])[facility] ([facility])[address] [place] [address] Phosphate [Mass/Vol] 2.0 mg/dL Low 2.5-4.9 [facility] Comment on above: Performed By: #### 2 4362-6 ####CALE CAI L ([id number])[facility] ([facility])[address] [place] [address] Potassium [Moles/Vol] 3.3 mmol/L Low 3.5-5.3 [facility] Comment on above: Performed By: #### 2 4362-6 ####CALE CAI L ([id number])[facility] ([facility])[address] [place] [address] Sodium [Moles/Vol] 144 mmol/L Normal 136-145 [facility] Comment on above: Performed By: #### 2 4362-6 ####CALE TOSCANOMOISAURA L ([id number])[facility] ([facility])[address]324 [place] [address] Urea nitrogen [Mass/Vol] 9 mg/dL Normal 12-14 [facility] Comment on above: Performed By: #### 2 4362-6 ####CALE Roth ([id number])[facility] ([facility])[address] [place] [address] VASC US TRANSCRANIAL DOPPLER (TCD) COMPLETEon 03-17-2025 VASC US TRANSCRANIAL DOPPLER (TCD) COMPLETE Normal [facility] XR CHEST 1 VIEWon 03-17-2025 XR CHEST 1 VIEW Normal [facility] Bacteriaon 03-16-2025 Bacteria identified Cx Nom (CSF) Normal [facility] Comment on above: Performed By: #### 6 06-4 ####CALE Roth ([id number])[facility] ([facility])[id number] [place] [address] CBC W Auto Differential pane l (Bld)on 03-16-2025 Erythrocyte distribution width (RBC) [Ratio] 12.6 % Normal 11.5-14.5 [facility] Comment on above: Order Comment: The [...] Performed By: #### 5 7021-8 ####CALE Roth ([id number])[facility] ([facility])[address] [place] [address] Hematocrit (Bld) [Volume fraction] 26.1 % Low 36.0-46.0 [facility] Comment on above: Order Comment: The [...] Performed By: #### 5 7021-8 ####CALE Roth ([id number])[facility] ([facility])[address] [place] [address] Hemoglobin (Bld) [Mass/Vol] 8.9 g/dL Low 12.0-16.0 [facility] Comment on above: Order Comment: The [...] Performed By: #### 5 7021-8 ####CALE Roth ([id number])[facility] ([facility])[id number] [place] [address] Immature granulocytes (Bld) [#/Vol] 0.23 x10*3/uL Normal 0.00-0.70 [facility] Comment on above: Order Comment: The [...] Performed By: #### 5 7021-8 ####CALE Roth ([id number])[facility] ([facility])[address]248 [place] [address] Immature granulocytes/100 WBC (Bld) 2.5 % High 0.0-0.9 [facility] Comment on above: Order Comment: The [...] By: #### 5 7021-8 ####CALE CAI L ([id number])[facility] ([facility])[address]951 [place] [address] MCH (RBC) [Entitic mass] 30.2 pg Normal 26.0-34.0 [facility] Comment on above: Order Comment: The [...] reported. Performed By: #### 5 7021-8 ####CALE TOSCANOMOBALJITER L ([id number])[facility] ([facility])[address]493 [place] [address] MCHC (RBC) [Mass/Vol] 34.1 g/dL Normal 32.0-36.0 [facility] Comment on above: Order Comment: The [...] Performed By: #### 5 7021-8 ####CALE Roth ([id number])[facility] ([facility])[address] [place] [address] MCV (RBC) [Entitic vol] 89 fL Normal 80-100 [facility] Comment on above: Order Comment: The [...] Performed By: #### 5 7021-8 ####CALE Roth ([id number])[facility] ([facility])[address]34 [place] [address] Nucleated RBC/100 WBC (Bld) [Ratio] 0.0 /100 WBCs Normal 0.0-0.0 [facility] Comment on above: Order Comment: The [...] Performed By: #### 5 7021-8 ####CALE Roth ([id number])[facility] ([facility])[address]364 [place] [address] Platelets (Bld) [#/Vol] 219 x10*3/uL Normal 150-450 [facility] Comment on above: Order Comment: The [...] Performed By: #### 5 7021-8 ####CALE Roth ([id number])[facility] ([facility])[address]707 [place] [address] RBC (Bld) [#/Vol] 2.95 x10*6/uL Low 4.00-5.20 [facility] Comment on above: Order Comment: The [...] reported. Performed By: #### 5 7021-8 ####CALE TOSCANOMOTZGONZALEZ Roth ([id number])[facility] ([facility])[address]76 [place] [address] WBC (Bld) [#/Vol] 9.3 x10*3/uL Normal 4.4-11.3 [facility] Comment on above: Order Comment: The [...] Performed By: #### 5 7021-8 ####CALE Roth ([id number])[facility] ([facility])[id number] [place] [address] CSF CELL COUNTon 03-16-2025 Appearance (CSF) Clear Normal Clear [facility] Comment on above: Order Comment: CSF c ell count reference ranges have not been established by [facility]. Based on published references. Performed By: #### C TCS4 ####CALE Roth ([id number])[facility] ([facility])[address] [place] [address] Color (CSF) Straw Abnormal Colorless [facility] Comment on above: Order Comment: CSF c ell count reference ranges have not been established by [facility]. Based on published references. Performed By: #### C TCS4 ####CALE TOSCANOMOTZER L ([id number])[facility] ([facility])[address]124 [place] [address] Color (Spun CSF) Colorless Normal [facility] Comment on above: Order Comment: CSF c ell count reference ranges have not been established by [facility]. Based on published references. Performed By: #### C TCS4 ####CALE TOSCANOMOTZER L ([id number])[facility] ([facility])[id number] [place] [address] RBC Auto (CSF) [#/Vol] 3000 /uL High 0-5 [facility] Comment on above: Order Comment: CSF c ell count reference ranges have not been established by [facility]. Based on published references. Performed By: #### C TCS4 ####CALE Roth ([id number])[facility] ([facility])[id number] [place] [address] Tube number Nom (CSF) [ID] Tube 1 Normal [facility] Comment on above: Order Comment: CSF c ell count reference ranges have not been established by [facility]. Based on published references. Performed By: #### C TCS4 ####CALE Roth ([id number])[facility] ([facility])[address] [place] [address] WBC Auto (CSF) [#/Vol] <3 Normal 1-5 [facility] Comment on above: Order Comment: CSF c ell count reference ranges have not been established by [facility]. Based on published references. Performed By: #### C TCS4 ####CALE Roth ([id number])[facility] ([facility])[id number] [place] [address] CSF DIFFERENTIALon 5 Cells Counted Total (CSF) [#] 2 Normal [facility] Comment on above: Order Comment: CSF c ell differential reference ranges have not been established by [facility]. Based on published references. Performed By: #### D FCSF ####CALE Roth ([id number])[facility] ([facility])[address] [place] [address] Lymphocytes/100 WBC Manual cnt (CSF) 50 % Normal 28-96 [facility] Comment on above: Order Comment: CSF c ell differential reference ranges have not been established by [facility]. Based on published references. Performed By: #### D FCSF ####CALE Roth ([id number])[facility] ([facility])[address]93 [place] [address] Monocytes+Macrophage s/100 WBC Manual cnt (CSF) 50 % Normal 16-56 [facility] Comment on above: Order Comment: CSF c ell differential reference ranges have not been established by [facility]. Based on published references. Performed By: #### D FCSF ####CALE Roth ([id number])[facility] ([facility])[address]88 [place] [address] Segmented neutrophils/100 WBC Manual cnt (CSF) 0 % Normal 0-5 [facility] Comment on above: Order Comment: CSF c ell differential reference ranges have not been established by [facility]. Based on published references. Performed By: #### D FCSF ####CALE Roth ([id number])[facility] ([facility])[address] [place] [address] CT HEAD WO IV CONTRASTon CT HEAD WO IV CONTRAST Normal [facility] Calcium.ionizedon 03-16-2025 Calcium.ionized (Bld) [Moles/Vol] 1.15 mmol/L Normal 1.1-1.33 [facility] Comment on above: Result Comment: The performance characteristics of ionized calcium testedin heparinized plasma or serum [facility].Testing on heparinized plasma or serum is not approved bythe FDA; however, such approval is not necessary. Performed By: #### 1 994-3 ####CALE Roth ([id number])[facility] ([facility])[address]85 [place] [address] Glucoseon 03-16-2025 Glucose (CSF) [Mass/Vol] 85 mg/dL High 40-70 [facility] Comment on above: Performed By: #### 2 342-4 ####CALE Roth ([id number])[facility] ([facility])[address]155 [place] [address] Glucose Test strip manual (B ld) [Mass/Vol]on 03-16-2025 Glucose [Mass/Vol] 124 mg/dL High 74-99 [facility] Comment on above: Performed By: #### 2 341-6 ####CALE Roth ([id number])[facility] ([facility])[address]346 [place] [address] Glucose [Mass/Vol] 158 mg/dL High [address] [place] [address] Comment on above: Performed By: #### 2 341-6 ####CALE Roth ([id number])[facility] ([facility])[address]146 [place] [address] Glucose [Mass/Vol] 143 mg/dL High [address] [place] [address] Comment on above: Performed By: #### 2 341-6 ####CALE Roth ([id number])[facility] ([facility])[address]696 [place] [address] Glucose [Mass/Vol] 143 mg/dL High [address] [place] [address] Comment on above: Performed By: #### 2 341-6 ####CALE Roth ([id number])[facility] ([facility])[address]60 [place] [address] Glucose [Mass/Vol] 132 mg/dL High [address] [place] [address] Comment on above: Performed By: #### 2 341-6 ####CALE Roth ([id number])[facility] ([facility])[address]68 [place] [address] Glucose [Mass/Vol] 166 mg/dL High [address] [place] [address] Comment on above: Performed By: #### 2 341-6 ####CALE Roth ([id number])[facility] ([facility])[address]123 [place] [address] Magnesiumon 03-16-2025 Magnesium [Mass/Vol] 1.95 mg/dL Normal 1.60-2.40 [facility] Comment on above: Performed By: #### 1 9123-9 ####CALE Roth ([id number])[facility] ([facility])[address]188 [place] [address] Manual differential performe d Ql (Bld)on 03-16-2025 Band form neutrophils (Bld) [#/Vol] 0.00 x10*3/uL Normal 0.00-0.70 [facility] Comment on above: Performed By: #### 5 0957-0 ####CALE Roth ([id number])[facility] ([facility])[address]48 [place] [address] Band form neutrophils/100 WBC (Bld) 0.0 % Normal 0.0-5.0 [facility] Comment on above: Performed By: #### 5 0957-0 ####CALE Roth ([id number])[facility] ([facility])[address]45 [place] [address] Basophils (Bld) [#/Vol] 0.08 x10*3/uL Normal 0.00-0.10 [facility] Comment on above: Performed By: #### 5 0957-0 ####CALE Roth ([id number])[facility] ([facility])[address]365 [place] [address] Basophils/100 WBC (Bld) 0.9 % Normal 0.0-2.0 [facility] Comment on above: Performed By: #### 5 0957-0 ####CALE Roth ([id number])[facility] ([facility])[address]79 [place] [address] Blasts Manual cnt (Bld) [#/Vol] 0.00 x10*3/uL Normal 0.00-0.00 [facility] Comment on above: Performed By: #### 5 0957-0 ####CALE Roth ([id number])[facility] ([facility])[address]122 [place] [address] Blasts/100 WBC (Bld) 0.0 % Normal 0.0-0.0 [facility] Comment on above: Performed By: #### 5 0957-0 ####CALE Roth ([id number])[facility] ([facility])[address]45 [place] [address] Cells Counted Total (Bld) [#] 115 Normal [facility] Comment on above: Performed By: #### 5 57-0 ####CALE Roth ([id number])[facility] ([facility])16764 [place] [address] Eosinophils (Bld) [#/Vol] 0.00 x10*3/uL Normal 0.00-0.70 [facility] Comment on above: Performed By: #### 5 57-0 ####CALE Roth ([id number])[facility] ([facility])[address]363 [place] [address] Eosinophils/100 WBC (Bld) 0.0 % Normal 0.0-6.0 [facility] Comment on above: Performed By: #### 5 57-0 ####CALE Roth ([id number])[facility] ([facility])[address]26 [place] [address] Lymphocytes (Bld) [#/Vol] 0.24 x10*3/uL Low 1.20-4.80 [facility] Comment on above: Performed By: #### 5 57-0 ####CALE Roth ([id number])[facility] ([facility])[address]509 [place] [address] Lymphocytes/100 WBC (Bld) 2.6 % Normal 13.0-44.0 [facility] Comment on above: Performed By: #### 5 57-0 ####CALE Roth ([id number])[facility] ([facility])[address]014 [place] [address] Metamyelocytes (Bld) [#/Vol] 0.00 x10*3/uL Normal 0.00-0.00 [facility] Comment on above: Performed By: #### 5 57-0 ####CALE Roth ([id number])[facility] ([facility])[address]30 [place] [address] Metamyelocytes/100 WBC (Bld) 0.0 % Normal 0.0-0.0 [facility] Comment on above: Performed By: #### 5 57-0 ####CALE Roth ([id number])[facility] ([facility])[address]13 [place] [address] Monocytes (Bld) [#/Vol] 0.00 x10*3/uL Low 0.10-1.00 [facility] Comment on above: Performed By: #### 5 57-0 ####CALE Roth ([id number])[facility] ([facility])[address] [place] [address] Monocytes/100 WBC (Bld) 0.0 % Normal 2.0-10.0 [facility] Comment on above: Performed By: #### 5 57-0 ####CALE Roth ([id number])[facility] ([facility])[address] [place] [address] Myelocytes (Bld) [#/Vol] 0.00 x10*3/uL Normal 0.00-0.00 [facility] Comment on above: Performed By: #### 5 57-0 ####CALE Roth ([id number])[facility] ([facility])[address] [place] [address] Myelocytes/100 WBC (Bld) 0.0 % Normal 0.0-0.0 [facility] Comment on above: Performed By: #### 5 57-0 ####CALE Roth ([id number])[facility] ([facility])[address] [place] [address] Neutrophils (Bld) [#/Vol] 8.97 x10*3/uL High 1.20-7.70 [facility] Comment on above: Performed By: #### 5 57-0 ####CALE Roth ([id number])[facility] ([facility])[address]20 [place] [address] Nucleated RBC/100 WBC (Bld) [Ratio] 0.0 % Normal 0.0-0.0 [facility] Comment on above: Performed By: #### 5 57-0 ####CALE Roth ([id number])[facility] ([facility])[address]65 [place] [address] Plasma cells (Bld) [#/Vol] 0.00 x10*3/uL Normal 0.00-0.00 [facility] Comment on above: Performed By: #### 5 0957-0 ####CALE Roth (48333)[facility] ([facility])[address]59 [place] [address] Plasma cells/100 WBC Manual cnt (Bld) 0.0 % Normal 0.00-0.00 [facility] Comment on above: Performed By: #### 5 0957-0 ####CALE Roth ([id number])[facility] ([facility])[address] [place] [address] Promyelocytes (Bld) [#/Vol] 0.00 x10*3/uL Normal 0.00-0.00 [facility] Comment on above: Performed By: #### 5 57-0 ####CALE Roth ([id number])[facility] ([facility])[address]82 [place] [address] Promyelocytes/100 WBC (Bld) 0.0 % Normal 0.0-0.0 [facility] Comment on above: Performed By: #### 5 57-0 ####CALE Roth ([id number])[facility] ([facility])63396 [place] [address] RBC morphology finding Nom (Bld) No significant RBC morphology present Normal [facility] Comment on above: Performed By: #### 5 0957-0 ####CALE Roth ([id number])[facility] ([facility])[address]072 [place] [address] Segmented neutrophils (Bld) [#/Vol] 8.97 x10*3/uL High 1.20-7.00 [facility] Comment on above: Performed By: #### 5 0957-0 ####CALE Roth ([id number])[facility] ([facility])[address] [place] [address] Segmented neutrophils/100 WBC (Bld) 96.5 % Normal 40.0-80.0 [facility] Comment on above: Result Comment: Perc ent differential counts (%) should be interpreted in the context of the absolute cell counts (cells/uL). Performed By: #### 5 0957-0 ####CALE Roth ([id number])[facility] ([facility])[address]67 [place] [address] Variant lymphocytes (Bld) [#/Vol] 0.00 x10*3/uL Normal 0.00-0.50 [facility] Comment on above: Performed By: #### 5 0957-0 ####CALE Roth ([id number])[facility] ([facility])[address]267 [place] [address] Variant lymphocytes/100 WBC (Bld) 0.0 % Normal 0.0-2.0 [facility] Comment on above: Performed By: #### 5 0957-0 ####CALE Roth ([id number])[facility] ([facility])[address]14 [place] [address] WBC other Manual cnt (Bld) [#/Vol] 0.00 x10*3/uL Normal [facility] Comment on above: Performed By: #### 5 0957-0 ####CALE Roth ([id number])[facility] ([facility])74566 [place] [address] WBC other/100 WBC (Bld) 0.0 % Normal [facility] Comment on above: Performed By: #### 5 0957-0 ####CALE Roth ([id number])[facility] ([facility])[address]68 [place] [address] Prealbuminon 03-16-2025 Prealbumin [Mass/Vol] 20.0 mg/dL Normal 18.0-40.0 [facility] Comment on above: Performed By: #### 1 4338-8 ####CALE Roth ([id number])[facility] ([facility])[address]60 [place] [address] Proteinon 03-16-2025 Protein (CSF) [Mass/Vol] 17 mg/dL Normal 15-45 [facility] Comment on above: Performed By: #### 2 880-3 ####CALE Roth ([id number])[facility] ([facility])[address] [place] [address] Renal function 2000 panelon 03-16-2025 Albumin BCP dye [Mass/Vol] 3.2 g/dL Low 3.4-5.0 [facility] Comment on above: Performed By: #### 2 4362-6 ####CALE Roth ([id number])[facility] ([facility])[address] [place] [address] Anion gap [Moles/Vol] 8 mmol/L Low 10-20 [facility] Comment on above: Performed By: #### 2 4362-6 ####CALE Roth ([id number])[facility] ([facility])[id number] [place] [address] Calcium [Mass/Vol] 8.1 mg/dL Low 8.6-10.6 [facility] Comment on above: Performed By: #### 2 4362-6 ####CALE Roth ([id number])[facility] ([facility])[address] [place] [address] Chloride [Moles/Vol] 113 mmol/L High 98-107 [facility] Comment on above: Performed By: #### 2 4362-6 ####CALE Roth ([id number])[facility] ([facility])[address] [place] [address] CO2 [Moles/Vol] 25 mmol/L Normal 21-32 [facility] Comment on above: Performed By: #### 2 4362-6 ####CALE Roth ([id number])[facility] ([facility])[address] [place] [address] Creatinine [Mass/Vol] 0.42 mg/dL Low 0.50-1.05 [facility] Comment on above: Performed By: #### 2 4362-6 ####CALE Roth ([id number])[facility] ([facility])[address] [place] [address] Glomerular filtration rate >90 Normal >60 [facility] Comment on above: Result Comment: Calc ulations of estimated GFR are performed using the 2020 CKD-EPI Study Refit equation without the race variable for the IDMS-Traceable creatinine methods.https://jasn.asnjournals.org/content/early/ASN .3174099635 Performed By: #### 2 4362-6 ####CALE Roth ([id number])[facility] ([facility])[address] [place] [address] Glucose [Mass/Vol] 138 mg/dL High 74-99 [facility] Comment on above: Performed By: #### 2 4362-6 ####CALE CAI L ([id number])[facility] ([facility])[address] [place] [address] Phosphate [Mass/Vol] 3.6 mg/dL Normal 2.5-4.9 [facility] Comment on above: Performed By: #### 2 4362-6 ####CALE CAI L ([id number])[facility] ([facility])[address] [place] [address] Potassium [Moles/Vol] 3.4 mmol/L Low 3.5-5.3 [facility] Comment on above: Performed By: #### 2 4362-6 ####CALE CAI L ([id number])[facility] ([facility])[address] [place] [address] Sodium [Moles/Vol] 143 mmol/L Normal 136-145 [facility] Comment on above: Performed By: #### 2 4362-6 ####CALE CAI L ([id number])[facility] ([facility])[address]236 [place] [address] Urea nitrogen [Mass/Vol] 9 mg/dL Normal - [facility] Comment on above: Performed By: #### 2 4362-6 ####CALE Roth ([id number])[facility] ([facility])[address] [place] [address] VASC US TRANSCRANIAL DOPPLER (TCD) COMPLETEon 03-16-2025 VASC US TRANSCRANIAL DOPPLER (TCD) COMPLETE Normal [facility] XR ABDOMEN 1 VIEWon 03-16-20 XR ABDOMEN 1 VIEW Normal [facility] Comment on above: Order Comment: RN to release order via task on Brain when patient is ready for x-ray confirmation of NG tube placement. XR ABDOMEN 1 VIEW Normal [facility] XR CHEST 1 VIEWon 03-16-2025 XR CHEST 1 VIEW Normal [facility] CBC W Auto Differential pane l (Bld)on 03-15-2025 Basophils (Bld) [#/Vol] 0.05 x10*3/uL Normal 0.00-0.10 [facility] Comment on above: Performed By: #### 5 7021-8 ####CALE Roth ([id number])[facility] ([facility])[id number] [place] [address] Basophils/100 WBC (Bld) 0.5 % Normal 0.0-2.0 [facility] Comment on above: Performed By: #### 5 7021-8 ####CALE Roth ([id number])[facility] ([facility])[id number] [place] [address] Eosinophils (Bld) [#/Vol] 0.23 x10*3/uL Normal 0.00-0.70 [facility] Comment on above: Performed By: #### 5 7021-8 ####CALE Roth ([id number])[facility] ([facility])[address] [place] [address] Eosinophils/100 WBC (Bld) 2.5 % Normal 0.0-6.0 [facility] Comment on above: Performed By: #### 5 7021-8 ####CALE Roth ([id number])[facility] ([facility])[address]64 [place] [address] Erythrocyte distribution width (RBC) [Ratio] 12.2 % Normal 11.5-14.5 [facility] Comment on above: Performed By: #### 5 7021-8 ####CALE Roth ([id number])[facility] ([facility])[id number] [place] [address] Hematocrit (Bld) [Volume fraction] 29.6 % Low 36.0-46.0 [facility] Comment on above: Performed By: #### 5 7021-8 ####CALE Roth ([id number])[facility] ([facility])[id number] [place] [address] Hemoglobin (Bld) [Mass/Vol] 10.1 g/dL Low 12.0-16.0 [facility] Comment on above: Performed By: #### 5 7021-8 ####CALE Roth ([id number])[facility] ([facility])[id number] [place] [address] Immature granulocytes (Bld) [#/Vol] 0.36 x10*3/uL Normal 0.00-0.70 [facility] Comment on above: Performed By: #### 5 7021-8 ####CALE Roth ([id number])[facility] ([facility])[id number] [place] [address] Immature granulocytes/100 WBC (Bld) 3.9 % High 0.0-0.9 [facility] Comment on above: Result Comment: Aleisha ture Granulocyte Count (IG) includes promyelocytes, myelocytes and metamyelocytes but does not include bands. Percent differential counts (%) should be interpreted in the context of the absolute cell counts (cells/UL). Performed By: #### 5 7021-8 ####CALE Roth ([id number])[facility] ([facility])[address]123 [place] [address] Lymphocytes (Bld) [#/Vol] 1.86 x10*3/uL Normal 1.20-4.80 [facility] Comment on above: Performed By: #### 5 7021-8 ####CALE Roth ([id number])[facility] ([facility])[id number] [place] [address]44[address] Lymphocytes/100 WBC (Bld) 19.9 % Normal 13.0-44.0 [facility] Comment on above: Performed By: #### 5 7021-8 ####CALE Roth ([id number])[facility] ([facility])[id number] [place] [address] 52927 MCH (RBC) [Entitic mass] 30.1 pg Normal 26.0-34.0 [facility] Comment on above: Performed By: #### 5 7021-8 ####CALE Roth ([id number])[facility] ([facility])[id number] [place] [address] 22966 MCHC (RBC) [Mass/Vol] 34.1 g/dL Normal 32.0-36.0 [facility] Comment on above: Performed By: #### 5 7021-8 ####CALE Roth ([id number])[facility] ([facility])[id number] [place] [address] 08898 MCV (RBC) [Entitic vol] 88 fL Normal 80-100 [facility] Comment on above: Performed By: #### 5 7021-8 ####CALE Roth ([id number])[facility] ([facility])[address] [place] [address]878 Monocytes (Bld) [#/Vol] 0.58 x10*3/uL Normal 0.10-1.00 [facility] Comment on above: Performed By: #### 5 7021-8 ####CALE Roth ([id number])[facility] ([facility])[id number] [place] [address] 79589 Monocytes/100 WBC (Bld) 6.2 % Normal 2.0-10.0 [facility] Comment on above: Performed By: #### 5 7021-8 ####CALE Roth ([id number])[facility] ([facility])[address]85 [place] [address] Neutrophils (Bld) [#/Vol] 6.26 x10*3/uL Normal 1.20-7.70 [facility] Comment on above: Result Comment: Perc ent differential counts (%) should be interpreted in the context of the absolute cell counts (cells/uL). Performed By: #### 5 7021-8 ####CALE Roth ([id number])[facility] ([facility])[address]683 [place] [address] Neutrophils/100 WBC (Bld) 67.0 % Normal 40.0-80.0 [facility] Comment on above: Performed By: #### 5 7021-8 ####CALE Roth ([id number])[facility] ([facility])[address]190 [place] [address] Nucleated RBC/100 WBC (Bld) [Ratio] 0.0 /100 WBCs Normal 0.0-0.0 [facility] Comment on above: Performed By: #### 5 7021-8 ####CALE Roth ([id number])[facility] ([facility])[address]232 [place] [address] Platelets (Bld) [#/Vol] 237 x10*3/uL Normal 150-450 [facility] Comment on above: Performed By: #### 5 7021-8 ####CALE Roth ([id number])[facility] ([facility])[address]228 [place] [address] RBC (Bld) [#/Vol] 3.35 x10*6/uL Low 4.00-5.20 [facility] Comment on above: Performed By: #### 5 7021-8 ####CALE Roth ([id number])[facility] ([facility])[address]83 [place] [address] WBC (Bld) [#/Vol] 9.3 x10*3/uL Normal 4.4-11.3 [facility] Comment on above: Performed By: #### 5 7021-8 ####CALE Roth ([id number])[facility] ([facility])[address]240 [place] [address] CT HEAD WO IV CONTRASTon CT HEAD WO IV CONTRAST Normal [facility] Calcium.ionizedon 03-15-2025 Calcium.ionized (Bld) [Moles/Vol] 1.21 mmol/L Normal 1.1-1.33 [facility] Comment on above: Result Comment: The performance characteristics of ionized calcium testedin heparinized plasma or serum [facility].Testing on heparinized plasma or serum is not approved bythe FDA; however, such approval is not necessary. Performed By: #### 1 994-3 ####CALE Roth ([id number])[facility] ([facility])[address]906 [place] [address] Carboxyhemoglobin (BldA) [Ma ss fraction]on 03-15-2025 Deoxyhemoglobin (BldA) [Mass fraction] 0.5 % Normal 0.0-5.0 [facility] Comment on above: Performed By: #### 2 030-5 ####CALE Roth ([id number])[facility] ([facility])[address]451 [place] [address] Methemoglobin (BldA) [Mass fraction] 1.0 % Normal 0.0-1.5 [facility] Comment on above: Performed By: #### 2 030-5 ####CALE Roth ([id number])[facility] ([facility])[address]277 [place] [address] Carboxyhemoglobin/Hemoglobin .totalon 03-15-2025 Carboxyhemoglobin (BldA) [Mass fraction] 0.5 % Normal [facility] Comment on above: Result Comment: Ref ValuesNon-Smokers 0.5-1.5%Smokers 0.5-10.0% Performed By: #### 2 030-5 ####CALE Roth ([id number])[facility] ([facility])[id number] [place] [address] Gason 03-15-2025 Hemoglobin (Bld) [Mass/Vol] 11.2 g/dL Low 12.0-16.0 [facility] Comment on above: Performed By: #### 9 3685-6 ####CALE Roth ([id number])[facility] ([facility])[address] [place] [address] Performed By: #### 2 030-5 ####CALE Roth ([id number])[facility] ([facility])[address] [place] [address] Oxyhemoglobin (BldA) [Mass fraction] 98.0 % Normal 94.0-98.0 [facility] Comment on above: Performed By: #### 9 3685-6 ####CALE Roth ([id number])[facility] ([facility])[address] [place] [address] Performed By: #### 2 030-5 ####CALE Roth ([id number])[facility] ([facility])[address] [place] [address]21 Gas and Carbon monoxide and Electrolytes panel (BldA)on 03-15-2025 Anion gap 4 (BldA) [Moles/Vol] 7 mmo/L Low 10-25 [facility] Comment on above: Performed By: #### 9 3685-6 ####CALE Roth ([id number])[facility] ([facility])[address] [place] [address]83 Base excess Calc (Bld) [Moles/Vol] -1.9000 mmol/L Normal -2.0-3.0 [facility] Comment on above: Performed By: #### 9 3685-6 ####CALE Roth ([id number])[facility] ([facility])[address] [place] [address]99 Calcium.ionized (BldA) [Moles/Vol] 1.16 mmol/L Normal 1.10-1.33 [facility] Comment on above: Performed By: #### 9 3685-6 ####CALE Roth (71530)[facility] ([facility])[address]187 [place] [address] Chloride (BldA) [Moles/Vol] 119 mmol/L High 98-107 [facility] Comment on above: Performed By: #### 9 3685-6 ####CALE Roth ([id number])[facility] ([facility])[address] [place] [address] 71573 CO2 (Bld) [Partial pressure] 30 mm Hg Low 38-42 [facility] Comment on above: Performed By: #### 9 4185-6 ####CALE Roth ([id number])[facility] ([facility])[address] [place] [address]1039 Glucose [Mass/Vol] 149 mg/dL High 74-99 [facility] Comment on above: Performed By: #### 9 8625-6 ####CALE Roth ([id number])[facility] ([facility])[address] [place] [address]19 HCO3 (Bld) [Moles/Vol] 21.3 mmol/L Low 22.0-26.0 [facility] Comment on above: Performed By: #### 9 3685-6 ####CALE Roth ([id number])[facility] ([facility])[address]254 [place] [address] Hematocrit Est (Bld) [Volume fraction] 30.0 % Low 36.0-46.0 [facility] Comment on above: Performed By: #### 9 3685-6 ####CALE Roth ([id number])[facility] ([facility])[address] [place] [address] 34474 Hemoglobin (Bld) [Mass/Vol] 10.0 g/dL Low 12.0-16.0 [facility] Comment on above: Performed By: #### 9 5965-6 ####CALE Roth ([id number])[facility] ([facility])[address]31 [place] [address] Inhaled oxygen concentration 53 % Normal [facility] Comment on above: Performed By: #### 9 3685-6 ####CALE Roth ([id number])[facility] ([facility])[address]141 [place] [address] Lactate (BldA) [Moles/Vol] 1.0 mmol/L Normal 0.4-2.0 [facility] Comment on above: Performed By: #### 9 3685-6 ####CALE Roth ([id number])[facility] ([facility])[address]887 [place] [address] Oxygen (Bld) [Partial pressure] 262 mm Hg High 85-95 [facility] Comment on above: Performed By: #### 9 3685-6 ####CALE Roth ([id number])[facility] ([facility])[address] [place] [address]647 Oxyhemoglobin (BldA) [Mass fraction] 97.5 % Normal 94.0-98.0 [facility] Comment on above: Performed By: #### 9 3685-6 ####CALE Roth ([id number])[facility] ([facility])[address]4 [place] [address] pH (Bld) 7.46 [pH] High 7.38-7.42 [facility] Comment on above: Performed By: #### 9 3685-6 ####CALE Roth ([id number])[facility] ([facility])[address]69 [place] [address] Potassium (BldA) [Moles/Vol] 3.5 mmol/L Normal 3.5-5.3 [facility] Comment on above: Performed By: #### 9 3685-6 ####CALE Roth ([id number])[facility] ([facility])[address]65 [place] [address] Sodium (BldA) [Moles/Vol] 144 mmol/L Normal 136-145 [facility] Comment on above: Performed By: #### 9 3685-6 ####CALE Roth ([id number])[facility] ([facility])83226 [place] [address] Anion gap 4 (BldA) [Moles/Vol] 11 mmo/L Normal 10-25 [facility] Comment on above: Performed By: #### 9 3685-6 ####CALE Roth (15030)[facility] ([facility])[id number] [place] [address]38 Base excess Calc (Bld) [Moles/Vol] -2.3000 mmol/L Low -2.0-3.0 [facility] Comment on above: Performed By: #### 9 3685-6 ####CALE Roth ([id number])[facility] ([facility])[id number] [place] [address] 49399 Calcium.ionized (BldA) [Moles/Vol] 1.16 mmol/L Normal 1.10-1.33 [facility] Comment on above: Performed By: #### 9 3685-6 ####CALE Roth ([id number])[facility] ([facility])[id number] [place] [address] 50150 Chloride (BldA) [Moles/Vol] 113 mmol/L High 98-107 [facility] Comment on above: Performed By: #### 9 3685-6 ####CALE Roth ([id number])[facility] ([facility])[address] [place] [address] 08412 CO2 (Bld) [Partial pressure] 29 mm Hg Low 38-42 [facility] Comment on above: Performed By: #### 9 3685-6 ####CALE Roth ([id number])[facility] ([facility])[address] [place] [address] 19927 Glucose [Mass/Vol] 211 mg/dL High 74-99 [facility] Comment on above: Performed By: #### 9 3685-6 ####CALE Roth ([id number])[facility] ([facility])[address]01 [place] [address] HCO3 (Bld) [Moles/Vol] 20.6 mmol/L Low 22.0-26.0 [facility] Comment on above: Performed By: #### 9 3685-6 ####CALE Roth ([id number])[facility] ([facility])47049 [place] [address] Hematocrit Est (Bld) [Volume fraction] 34.0 % Low 36.0-46.0 [facility] Comment on above: Performed By: #### 9 3685-6 ####CALE Roth ([id number])[facility] ([facility])75774 [place] [address] Inhaled oxygen concentration 46 % Normal [facility] Comment on above: Performed By: #### 9 3685-6 ####CALE Roth ([id number])[facility] ([facility])50337 [place] [address] Lactate (BldA) [Moles/Vol] 0.7 mmol/L Normal 0.4-2.0 [facility] Comment on above: Performed By: #### 9 3685-6 ####CALE Roth ([id number])[facility] ([facility])18017 [place] [address] Oxygen (Bld) [Partial pressure] 249 mm Hg High 85-95 [facility] Comment on above: Performed By: #### 9 3685-6 ####CALE Roth ([id number])[facility] ([facility])80935 [place] [address] pH (Bld) 7.46 [pH] High 7.38-7.42 [facility] Comment on above: Performed By: #### 9 3685-6 ####CALE Roth ([id number])[facility] ([facility])03368 [place] [address] Potassium (BldA) [Moles/Vol] 3.7 mmol/L Normal 3.5-5.3 [facility] Comment on above: Performed By: #### 9 3685-6 ####CALE Roth ([id number])[facility] ([facility])[address] [place] [address] 47[address] Sodium (BldA) [Moles/Vol] 141 mmol/L Normal 136-145 [facility] Comment on above: Performed By: #### 9 3685-6 ####CALE Roth ([id number])[facility] ([facility])[address] [place] [address]013 Anion gap 4 (BldA) [Moles/Vol] 14 mmo/L Normal 10-25 [facility] Comment on above: Performed By: #### 9 3685-6 ####CALE Roth ([id number])[facility] ([facility])[address] [place] [address] 96794 Base excess Calc (Bld) [Moles/Vol] -2.5000 mmol/L Low -2.0-3.0 [facility] Comment on above: Performed By: #### 9 3685-6 ####CALE Roth ([id number])[facility] ([facility])[address] [place] [address] 76531 Calcium.ionized (BldA) [Moles/Vol] 1.19 mmol/L Normal 1.10-1.33 [facility] Comment on above: Performed By: #### 9 3685-6 ####CALE Roth ([id number])[facility] ([facility])[id number] [place] [address] 49749 Chloride (BldA) [Moles/Vol] 111 mmol/L High 98-107 [facility] Comment on above: Performed By: #### 9 3685-6 ####CALE Roth ([id number])[facility] ([facility])[address] [place] [address] 52261 CO2 (Bld) [Partial pressure] 31 mm Hg Low 38-42 [facility] Comment on above: Performed By: #### 9 3685-6 ####CALE Roth (85771)[facility] ([facility])[address]158 [place] [address] Glucose [Mass/Vol] 214 mg/dL High 74-99 [facility] Comment on above: Performed By: #### 9 3685-6 ####CALE Roth ([id number])[facility] ([facility])40267 [place] [address] HCO3 (Bld) [Moles/Vol] 21.1 mmol/L Low 22.0-26.0 [facility] Comment on above: Performed By: #### 9 3685-6 ####CALE Roth ([id number])[facility] ([facility])[address]17 [place] [address] Hematocrit Est (Bld) [Volume fraction] 28.0 % Low 36.0-46.0 [facility] Comment on above: Performed By: #### 9 3685-6 ####CALE Roth ([id number])[facility] ([facility])35281 [place] [address] Hemoglobin (Bld) [Mass/Vol] 9.3 g/dL Low 12.0-16.0 [facility] Comment on above: Performed By: #### 9 3685-6 ####CALE Roth ([id number])[facility] ([facility])[address] [place] [address] Inhaled oxygen concentration 48 % Normal [facility] Comment on above: Performed By: #### 9 3685-6 ####CALE Roth ([id number])[facility] ([facility])[address] [place] [address] Lactate (BldA) [Moles/Vol] 1.1 mmol/L Normal 0.4-2.0 [facility] Comment on above: Performed By: #### 9 3685-6 ####CALE Roth ([id number])[facility] ([facility])[address] [place] [address] Oxygen (Bld) [Partial pressure] 192 mm Hg High 85-95 [facility] Comment on above: Performed By: #### 9 3685-6 ####CALE Roth ([id number])[facility] ([facility])[id number] [place] [address] Oxyhemoglobin (BldA) [Mass fraction] 98.4 % High 94.0-98.0 [facility] Comment on above: Performed By: #### 9 3685-6 ####CALE Roth ([id number])[facility] ([facility])[id number] [place] [address] pH (Bld) 7.44 [pH] High 7.38-7.42 [facility] Comment on above: Performed By: #### 9 3685-6 ####CALE Roth ([id number])[facility] ([facility])[id number] [place] [address] Potassium (BldA) [Moles/Vol] 3.8 mmol/L Normal 3.5-5.3 [facility] Comment on above: Performed By: #### 9 3685-6 ####CALE Roth ([id number])[facility] ([facility])[id number] [place] [address] Sodium (BldA) [Moles/Vol] 142 mmol/L Normal 136-145 [facility] Comment on above: Performed By: #### 9 3685-6 ####CALE Roth ([id number])[facility] ([facility])[id number] [place] [address] Anion gap 4 (BldA) [Moles/Vol] 10 mmo/L Normal 10-25 [facility] Comment on above: Performed By: #### 9 3685-6 ####CALE Roth ([id number])[facility] ([facility])[id number] [place] [address] Base excess Calc (Bld) [Moles/Vol] 1.3 mmol/L Normal -2.0-3.0 [facility] Comment on above: Performed By: #### 9 3685-6 ####CALE Roth ([id number])[facility] ([facility])[address] [place] [address] Calcium.ionized (BldA) [Moles/Vol] 1.23 mmol/L Normal 1.10-1.33 [facility] Comment on above: Performed By: #### 9 3685-6 ####CALE Roth ([id number])[facility] ([facility])[address] [place] [address] Chloride (BldA) [Moles/Vol] 111 mmol/L High 98-107 [facility] Comment on above: Performed By: #### 9 3685-6 ####CALE Roth ([id number])[facility] ([facility])[address] [place] [address] CO2 (Bld) [Partial pressure] 34 mm Hg Low 38-42 [facility] Comment on above: Performed By: #### 9 3685-6 ####CALE Roth ([id number])[facility] ([facility])[address] [place] [address] Glucose [Mass/Vol] 141 mg/dL High 74-99 [facility] Comment on above: Performed By: #### 9 3685-6 ####CALE Roth ([id number])[facility] ([facility])[address] [place] [address] HCO3 (Bld) [Moles/Vol] 24.7 mmol/L Normal 22.0-26.0 [facility] Comment on above: Performed By: #### 9 3685-6 ####CALE Roth ([id number])[facility] ([facility])[address]40 [place] [address] Hematocrit Est (Bld) [Volume fraction] 31.0 % Low 36.0-46.0 [facility] Comment on above: Performed By: #### 9 3685-6 ####CALE Roth (87711)[facility] ([facility])[address] [place] [address] Hemoglobin (Bld) [Mass/Vol] 10.2 g/dL Low 12.0-16.0 [facility] Comment on above: Performed By: #### 9 3685-6 ####CALE Roth ([id number])[facility] ([facility])[address]68 [place] [address] Inhaled oxygen concentration 97 % Normal [facility] Comment on above: Performed By: #### 9 3685-6 ####CALE Roth ([id number])[facility] ([facility])[address]68 [place] [address] Lactate (BldA) [Moles/Vol] 0.6 mmol/L Normal 0.4-2.0 [facility] Comment on above: Performed By: #### 9 3685-6 ####CALE Roth ([id number])[facility] ([facility])[address] [place] [address] Oxygen (Bld) [Partial pressure] 477 mm Hg High 85-95 [facility] Comment on above: Performed By: #### 9 5335-6 ####CALE Roth ([id number])[facility] ([facility])[address] [place] [address] Oxyhemoglobin (BldA) [Mass fraction] 98.5 % High 94.0-98.0 [facility] Comment on above: Performed By: #### 9 3685-6 ####CALE Roth ([id number])[facility] ([facility])[address]62 [place] [address] pH (Bld) 7.47 [pH] High 7.38-7.42 [facility] Comment on above: Performed By: #### 9 8865-6 ####CALE Roth ([id number])[facility] ([facility])[address]207 [place] [address] Potassium (BldA) [Moles/Vol] 3.5 mmol/L Normal 3.5-5.3 [facility] Comment on above: Performed By: #### 9 3685-6 ####CALE Roth ([id number])[facility] ([facility])[address] [place] [address] Sodium (BldA) [Moles/Vol] 142 mmol/L Normal 136-145 [facility] Comment on above: Performed By: #### 9 3685-6 ####CALE Roth ([id number])[facility] ([facility])[address] [place] [address] Anion gap 4 (BldA) [Moles/Vol] 13 mmo/L Normal 10-25 [facility] Comment on above: Performed By: #### 9 3685-6 ####CALE Roth ([id number])[facility] ([facility])[id number] [place] [address] Base excess Calc (Bld) [Moles/Vol] 0.8 mmol/L Normal -2.0-3.0 [facility] Comment on above: Performed By: #### 9 3685-6 ####CALE Roth ([id number])[facility] ([facility])[address] [place] [address] Calcium.ionized (BldA) [Moles/Vol] 1.24 mmol/L Normal 1.10-1.33 [facility] Comment on above: Performed By: #### 9 3685-6 ####CALE Roth ([id number])[facility] ([facility])[address] [place] [address] Chloride (BldA) [Moles/Vol] 107 mmol/L Normal 98-107 [facility] Comment on above: Performed By: #### 9 3685-6 ####CALE Roth ([id number])[facility] ([facility])[address] [place] [address] CO2 (Bld) [Partial pressure] 36 mm Hg Low 38-42 [facility] Comment on above: Performed By: #### 9 3685-6 ####CALE Roth ([id number])[facility] ([facility])[address]39 [place] [address] Glucose [Mass/Vol] 125 mg/dL High 74-99 [facility] Comment on above: Performed By: #### 9 3685-6 ####CALE Roth ([id number])[facility] ([facility])[address]58 [place] [address] HCO3 (Bld) [Moles/Vol] 25.0 mmol/L Normal 22.0-26.0 [facility] Comment on above: Performed By: #### 9 3005-6 ####CALE Roth ([id number])[facility] ([facility])[address] [place] [address] Hematocrit Est (Bld) [Volume fraction] 12.0 % Low 36.0-46.0 [facility] Comment on above: Performed By: #### 9 4215-6 ####CALE Roth ([id number])[facility] ([facility])[address] [place] [address] Hemoglobin (Bld) [Mass/Vol] 3.9 g/dL Critically low 12.0-16.0 [facility] Comment on above: Performed By: #### 9 8725-6 ####CALE Roth (60392)[facility] ([facility])[address]42 [place] [address] Inhaled oxygen concentration 97 % Normal [facility] Comment on above: Performed By: #### 9 2535-6 ####CALE Roth ([id number])[facility] ([facility])[address]40 [place] [address] Lactate (BldA) [Moles/Vol] 0.8 mmol/L Normal 0.4-2.0 [facility] Comment on above: Performed By: #### 9 5355-6 ####CALE Roth ([id number])[facility] ([facility])[address]31 [place] [address] Oxygen (Bld) [Partial pressure] 437 mm Hg High 85-95 [facility] Comment on above: Performed By: #### 9 3685-6 ####CALE Roth ([id number])[facility] ([facility])[address] [place] [address] Oxyhemoglobin (BldA) [Mass fraction] 96.9 % Normal 94.0-98.0 [facility] Comment on above: Performed By: #### 9 3685-6 ####CALE Roth ([id number])[facility] ([facility])[address] [place] [address] pH (Bld) 7.45 [pH] High 7.38-7.42 [facility] Comment on above: Performed By: #### 9 3685-6 ####CALE Roth ([id number])[facility] ([facility])[address] [place] [address] Potassium (BldA) [Moles/Vol] 3.7 mmol/L Normal 3.5-5.3 [facility] Comment on above: Performed By: #### 9 3685-6 ####CALE Roth ([id number])[facility] ([facility])[address] [place] [address] Sodium (BldA) [Moles/Vol] 141 mmol/L Normal 136-145 [facility] Comment on above: Performed By: #### 9 3685-6 ####CALE Roth ([id number])[facility] ([facility])[address] [place] [address] Glucose Test strip manual (B ld) [Mass/Vol]on 03-15-2025 Glucose [Mass/Vol] 130 mg/dL High 74-99 [facility] Comment on above: Performed By: #### 2 341-6 ####CALE Roth ([id number])[facility] ([facility])[address] [place] [address] Glucose [Mass/Vol] 114 mg/dL High 74-99 [facility] Comment on above: Performed By: #### 2 341-6 ####CALE Roth ([id number])[facility] ([facility])[address]252 [place] [address] Glucose [Mass/Vol] 130 mg/dL High 74-99 [facility] Comment on above: Performed By: #### 2 341-6 ####CALE Roth ([id number])[facility] ([facility])[address]32 [place] [address] IR ANGIOGRAM CEREBRAL BILATE RALon 03-15-2025 IR ANGIOGRAM CEREBRAL BILATERAL Normal [facility] Magnesiumon 03-15-2025 Magnesium [Mass/Vol] 2.06 mg/dL Normal 1.60-2.40 [facility] Comment on above: Performed By: #### 1 9123-9 ####CALE Roth ([id number])[facility] ([facility])[address]70 [place] [address] Renal function 2000 panelon 03-15-2025 Albumin BCP dye [Mass/Vol] 3.7 g/dL Normal 3.4-5.0 [facility] Comment on above: Performed By: #### 2 4362-6 ####CALE Roth ([id number])[facility] ([facility])12750 [place] [address] Anion gap [Moles/Vol] 11 mmol/L Normal 10-20 [facility] Comment on above: Performed By: #### 2 4362-6 ####CALE Roth ([id number])[facility] ([facility])[address]06 [place] [address] Calcium [Mass/Vol] 8.6 mg/dL Normal 8.6-10.6 [facility] Comment on above: Performed By: #### 2 4362-6 ####CALE Roth ([id number])[facility] ([facility])40686 [place] [address] Chloride [Moles/Vol] 107 mmol/L Normal 98-107 [facility] Comment on above: Performed By: #### 2 4362-6 ####CALE Roth ([id number])[facility] ([facility])[address] [place] [address] CO2 [Moles/Vol] 28 mmol/L Normal 21-32 [facility] Comment on above: Performed By: #### 2 4362-6 ####CALE Roth ([id number])[facility] ([facility])[address]13 [place] [address] Creatinine [Mass/Vol] 0.45 mg/dL Low 0.50-1.05 [facility] Comment on above: Performed By: #### 2 4362-6 ####CALE Roth ([id number])[facility] ([facility])[address]79 [place] [address] Glomerular filtration rate >90 Normal >60 [facility] Comment on above: Result Comment: Calc ulations of estimated GFR are performed using the 2020 CKD-EPI Study Refit equation without the race variable for the IDMS-Traceable creatinine methods.https://jasn.asnjournals.org/content/early/ASN .1606715605 Performed By: #### 2 4362-6 ####CALE Roth ([id number])[facility] ([facility])[address]65 [place] [address] Glucose [Mass/Vol] 123 mg/dL High 74-99 [facility] Comment on above: Performed By: #### 2 4362-6 ####CALE Roth ([id number])[facility] ([facility])[address] [place] [address] Phosphate [Mass/Vol] 3.0 mg/dL Normal 2.5-4.9 [facility] Comment on above: Performed By: #### 2 4362-6 ####CALE Roth (95259)[facility] ([facility])[address] [place] [address] Potassium [Moles/Vol] 3.6 mmol/L Normal 3.5-5.3 [facility] Comment on above: Performed By: #### 2 4362-6 ####CALE Roth ([id number])[facility] ([facility])[address]13 [place] [address] Sodium [Moles/Vol] 142 mmol/L Normal 136-145 [facility] Comment on above: Performed By: #### 2 4362-6 ####CALE Roth ([id number])[facility] ([facility])[address]992 [place] [address] Urea nitrogen [Mass/Vol] 14 mg/dL Normal 6-23 [facility] Comment on above: Performed By: #### 2 4362-6 ####CALE Roth ([id number])[facility] ([facility])[address]11 [place] [address] Sodiumon 03-15-2025 Sodium [Moles/Vol] 143 mmol/L Normal 136-145 [facility] Comment on above: Performed By: #### 2 951-2 ####CALE Roth ([id number])[facility] ([facility])[address]40 [place] [address] Surgical pathology studyon 0 03-15-2025 Surgical pathology study [facility] Comment on above: Order Comment: 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] Blood type and Indirect anti body screen panel (Bld)on 03-14-2025 ABO group Nom (Bld) B Normal [facility] Comment on above: Performed By: #### 3 4532-2 ####CALE Roth ([id number])[facility] ([facility])[address] [place] [address] Blood group antibody screen Ql Negative [facility] Comment on above: Performed By: #### 3 4532-2 ####CALE Roth ([id number])[facility] ([facility])[address] [place] [address] D Ag Ql (Bld) Positive Normal [facility] Comment on above: Performed By: #### 3 4532-2 ####CALE Roth ([id number])[facility] ([facility])[address] [place] [address] CBC panel Auto (Bld)on 03-14 Erythrocyte distribution width (RBC) [Ratio] 11.7 % Normal 11.5-14.5 [facility] Comment on above: Performed By: #### 5 8410-2 ####CALE Roth ([id number])[facility] ([facility])[address]04 [place] [address] Hematocrit (Bld) [Volume fraction] 31.2 % Low 36.0-46.0 [facility] Comment on above: Performed By: #### 5 8410-2 ####CALE Roth (55241)[facility] ([facility])[address]163 [place] [address] Hemoglobin (Bld) [Mass/Vol] 11.0 g/dL Low 12.0-16.0 [facility] Comment on above: Performed By: #### 5 8410-2 ####CALE Roth (75802)[facility] ([facility])[address]62 [place] [address] MCH (RBC) [Entitic mass] 29.6 pg Normal 26.0-34.0 [facility] Comment on above: Performed By: #### 5 8410-2 ####CALE Roth ([id number])[facility] ([facility])[address]65 [place] [address] MCHC (RBC) [Mass/Vol] 35.3 g/dL Normal 32.0-36.0 [facility] Comment on above: Performed By: #### 5 8410-2 ####CALE Roth ([id number])[facility] ([facility])[address]91 [place] [address] MCV (RBC) [Entitic vol] 84 fL Normal 80-100 [facility] Comment on above: Performed By: #### 5 8410-2 ####CALE Roth ([id number])[facility] ([facility])[address]365 [place] [address] Nucleated RBC/100 WBC (Bld) [Ratio] 0.0 /100 WBCs Normal 0.0-0.0 [facility] Comment on above: Performed By: #### 5 8410-2 ####CALE Roth (69099)[facility] ([facility])[address]244 [place] [address] Platelets (Bld) [#/Vol] 262 x10*3/uL Normal 150-450 [facility] Comment on above: Performed By: #### 5 8410-2 ####CALE Roth ([id number])[facility] ([facility])[address]34 [place] [address] RBC (Bld) [#/Vol] 3.71 x10*6/uL Low 4.00-5.20 [facility] Comment on above: Performed By: #### 5 8410-2 ####CALE Roth (86059)[facility] ([facility])[address]15 [place] [address] WBC (Bld) [#/Vol] 11.3 x10*3/uL Normal 4.4-11.3 [facility] Comment on above: Performed By: #### 5 8410-2 ####CALE Roth (46062)[facility] ([facility])[address]26 [place] [address] CT ANGIO HEAD AND NECK W AND WO IV CONTRASTon 03-14-2025 CT ANGIO HEAD AND NECK W AND WO IV CONTRAST Normal [facility] CT HEAD WO IV CONTRASTon CT HEAD WO IV CONTRAST Normal [facility] Calcium.ionizedon 03-14-2025 Calcium.ionized (Bld) [Moles/Vol] 1.19 mmol/L Normal 1.1-1.33 [facility] Comment on above: Result Comment: The performance characteristics of ionized calcium testedin heparinized plasma or serum have been validated by theindividual [facility] laboratory site where testing is performed.Testing on heparinized plasma or serum is not approved bythe FDA; however, such approval is not necessary. Performed By: #### 1 994-3 ####CALE Roth ([id number])[facility] ([facility])[address]150 [place] [address] Choriogonadotropin.beta subu niton 03-14-2025 HCG.beta subunit Qn m[IU]/mL Normal <5 [facility] Comment on above: Order Comment: Total HCG measurement is performed using the Siemens Atellica immunoassay which detects intact HCG and free beta HCG subunit. This test is not indicated for use as a tumor marker. HCG testing is performed using a different test methodology at [facility] than other [facility]. Direct result comparison should only be made within the same method. Performed By: #### 2 1198-7 ####CALE Roth ([id number])[facility] ([facility])[address]22 [place] [address] Glucose Test strip manual (B ld) [Mass/Vol]on 03-14-2025 Glucose [Mass/Vol] 133 mg/dL High [address] [place] [address] Comment on above: Performed By: #### 2 341-6 ####CALE Roth (60712)[facility] ([facility])[address]31 [place] [address] Glucose [Mass/Vol] 100 mg/dL High [address] [place] [address] Comment on above: Performed By: #### 2 341-6 ####CALE Roth ([id number])[facility] ([facility])[address]66 [place] [address] Glucose [Mass/Vol] 135 mg/dL High [address] [place] [address] Comment on above: Performed By: #### 2 341-6 ####CALE Roth ([id number])[facility] ([facility])[address]280 [place] [address] Glucose [Mass/Vol] 133 mg/dL High [address] [place] [address] Comment on above: Performed By: #### 2 341-6 ####CALE Roth ([id number])[facility] ([facility])[address] [place] [address] Glucose [Mass/Vol] 154 mg/dL High 74-99 [facility] Comment on above: Performed By: #### 2 341-6 ####CALE Roth ([id number])[facility] ([facility])[id number] [place] [address] MR BRAIN W AND WO IV CONTRAS Ton 03-14-2025 MR BRAIN W AND WO IV CONTRAST Normal [facility] Comment on above: Order Comment: Only need diffusion, FLAIR, T1 pre and T1 post dale Magnesiumon 03-14-2025 Magnesium [Mass/Vol] 2.24 mg/dL Normal 1.60-2.40 [facility] Comment on above: Performed By: #### 1 9123-9 ####CALE Roth ([id number])[facility] ([facility])[address] [place] [address] PT and aPTT panel Coag (PPP) on 03-14-2025 aPTT Coag (PPP) [Time] 23 s Low 26-36 [facility] Comment on above: Order Comment: The A PTT is no longer used for monitoring Unfractionated Heparin Therapy. For monitoring Heparin Therapy, use the Heparin Assay. Performed By: #### 3 4529-8 ####CALE Roth ([id number])[facility] ([facility])[address] [place] [address] INR Coag (PPP) [Relative time] 1.2 High 0.9-1.1 [facility] Comment on above: Order Comment: The A PTT is no longer used for monitoring Unfractionated Heparin Therapy. For monitoring Heparin Therapy, use the Heparin Assay. Performed By: #### 3 4529-8 ####CALE Roth ([id number])[facility] ([facility])[address]136 [place] [address] PT Coag (PPP) [Time] 13.1 s High 9.8-12.4 [facility] Comment on above: Order Comment: The A PTT is no longer used for monitoring Unfractionated Heparin Therapy. For monitoring Heparin Therapy, use the Heparin Assay. Performed By: #### 3 4529-8 ####CALE Roth ([id number])[facility] ([facility])[address]88 [place] [address] Renal function 2000 panelon 03-14-2025 Albumin BCP dye [Mass/Vol] 4.0 g/dL Normal 3.4-5.0 [facility] Comment on above: Performed By: #### 2 4362-6 ####CALE Roth ([id number])[facility] ([facility])[address] [place] [address] Anion gap [Moles/Vol] 12 mmol/L Normal 10-20 [facility] Comment on above: Performed By: #### 2 4362-6 ####CALE Roth ([id number])[facility] ([facility])[address] [place] [address] Calcium [Mass/Vol] 8.9 mg/dL Normal 8.6-10.6 [facility] Comment on above: Performed By: #### 2 4362-6 ####CALE Roth (75030)[facility] ([facility])[address]45 [place] [address] Chloride [Moles/Vol] 104 mmol/L Normal 98-107 [facility] Comment on above: Performed By: #### 2 4362-6 ####CALE CAI L ([id number])[facility] ([facility])[address]94 [place] [address] CO2 [Moles/Vol] 28 mmol/L Normal 21-32 [facility] Comment on above: Performed By: #### 2 4362-6 ####CALE Roth ([id number])[facility] ([facility])[address] [place] [address] Creatinine [Mass/Vol] 0.49 mg/dL Low 0.50-1.05 [facility] Comment on above: Performed By: #### 2 4362-6 ####CALE Roth ([id number])[facility] ([facility])[address] [place] [address] Glomerular filtration rate >90 Normal >60 [facility] Comment on above: Result Comment: Calc ulations of estimated GFR are performed using the 2020 CKD-EPI Study Refit equation without the race variable for the IDMS-Traceable creatinine methods.https://jasn.asnjournals.org/content/early/ASN .5384327330 Performed By: #### 2 4362-6 ####CALE Roth ([id number])[facility] ([facility])[address] [place] [address] Glucose [Mass/Vol] 168 mg/dL High 74-99 [facility] Comment on above: Performed By: #### 2 4362-6 ####CALE Roth ([id number])[facility] ([facility])[address] [place] [address] Phosphate [Mass/Vol] 2.8 mg/dL Normal 2.5-4.9 [facility] Comment on above: Performed By: #### 2 4362-6 ####CALE CAI L ([id number])[facility] ([facility])[address] [place] [address] Potassium [Moles/Vol] 3.6 mmol/L Normal 3.5-5.3 [facility] Comment on above: Performed By: #### 2 4362-6 ####CALE CAI L ([id number])[facility] ([facility])[address] [place] [address] Sodium [Moles/Vol] 140 mmol/L Normal 136-145 [facility] Comment on above: Performed By: #### 2 4362-6 ####CALE CAI L ([id number])[facility] ([facility])[address] [place] [address] Urea nitrogen [Mass/Vol] 19 mg/dL Normal 6-23 [facility] Comment on above: Performed By: #### 2 4362-6 ####CALE Roth ([id number])[facility] ([facility])[address] [place] [address] Sodiumon 03-14-2025 Sodium [Moles/Vol] 141 mmol/L Normal 136-145 [facility] Comment on above: Performed By: #### 2 951-2 ####CALE Roth ([id number])[facility] ([facility])[address] [place] [address] Sodium [Moles/Vol] 142 mmol/L Normal 136-145 [facility] Comment on above: Performed By: #### 2 951-2 ####CALE Roth ([id number])[facility] ([facility])[id number] [place] [address] Sodium [Moles/Vol] 146 mmol/L High 136-145 [facility] Comment on above: Performed By: #### 2 951-2 ####CALE Roth ([id number])[facility] ([facility])[id number] [place] [address]35 Sodium [Moles/Vol] 139 mmol/L Normal 136-145 [facility] Comment on above: Performed By: #### 2 951-2 ####CALE Roth ([id number])[facility] ([facility])[address] [place] [address] Urinalysis complete W Reflex Culture panel (U)on 03-14-2025 Appearance (U) Clear Normal Clear [facility] Comment on above: Performed By: #### 5 8077-9 ####CALE Roth ([id number])[facility] ([facility])[id number] [place] [address] Bilirubin (U) [Mass/Vol] Negative Normal NEGATIVE [facility] Comment on above: Performed By: #### 5 8077-9 ####CALE CAI L ([id number])[facility] ([facility])[address] [place] [address] Color (U) Light-Yellow Normal Light-Yello w, Yellow, Dark-Yellow [facility] Comment on above: Performed By: #### 5 8077-9 ####CALE CAI L ([id number])[facility] ([facility])[address] [place] [address] Glucose Auto test strip (U) [Mass/Vol] Normal Normal Normal [facility] Comment on above: Performed By: #### 5 8077-9 ####CALE RUTLEDGEER L ([id number])[facility] ([facility])[address] [place] [address] Ketones (U) [Mass/Vol] Negative Normal NEGATIVE [facility] Comment on above: Performed By: #### 5 8077-9 ####CAEL CAI L ([id number])[facility] ([facility])[address] [place] [address] Leukocyte esterase Auto test strip Ql (U) Negative Normal NEGATIVE [facility] Comment on above: Performed By: #### 5 8077-9 ####CALE TOSCANOMOISAURA L ([id number])[facility] ([facility])[address] [place] [address] Mucus Auto (Urine sed) [#/Area] FEW Normal Reference range not established . [facility] Comment on above: Performed By: #### 5 8077-9 ####CALE CAI L ([id number])[facility] ([facility])[address] [place] [address] Nitrite Auto test strip Ql (U) Negative Normal NEGATIVE [facility] Comment on above: Performed By: #### 5 8077-9 ####CALE TOSCANOMOBALJITER L ([id number])[facility] ([facility])[address]192 [place] [address] pH (U) 7.0 [pH] Normal 5.0, 5.5, 6.0, 6.5, 7.0, 7.5, 8.0 [facility] Comment on above: Performed By: #### 5 8077-9 ####CALE Roth ([id number])[facility] ([facility])[id number] [place] [address] Protein (U) [Mass/Vol] 10 (TRACE) Normal NEGATIVE, 10 (TRACE), 20 (TRACE) [facility] Comment on above: Performed By: #### 5 8077-9 ####CALE Roth ([id number])[facility] ([facility])[address] [place] [address] 37770 RBC (U) [#/Vol] 0.5 (2+) Abnormal NEGATIVE [facility] Comment on above: Performed By: #### 5 8077-9 ####CALE Roth ([id number])[facility] ([facility])[address] [place] [address] 83624 RBC Auto (Urine sed) [#/Area] >20 Abnormal NONE, 1-2, 3-5 [facility] Comment on above: Performed By: #### 5 8077-9 ####CALE Roth ([id number])[facility] ([facility])[address] [place] [address]404 Specific gravity (U) [Rel density] 1.016 Normal 1.005-1.035 [facility] Comment on above: Performed By: #### 5 8077-9 ####CALE Roth ([id number])[facility] ([facility])[address] [place] [address] 83260 Urobilinogen (U) [Mass/Vol] Normal Normal Normal [facility] Comment on above: Performed By: #### 5 8077-9 ####CALE Roth ([id number])[facility] ([facility])[address] [place] [address] 18684 WBC Auto (Urine sed) [#/Area] 1-5 Normal 1-5, NONE [facility] Comment on above: Performed By: #### 5 8077-9 ####CALE Roth ([id number])[facility] ([facility])[address]407 [place] [address] XR CHEST 1 VIEWon 03-14-2025 XR CHEST 1 VIEW Normal [facility] CBC panel Auto (Bld)on 03-13 Erythrocyte distribution width (RBC) [Ratio] 11.7 % Normal 11.5-14.5 [facility] Comment on above: Performed By: #### 5 8410-2 ####CALE Roth ([id number])[facility] ([facility])[id number] [place] [address] 81466 Hematocrit (Bld) [Volume fraction] 35.1 % Low 36.0-46.0 [facility] Comment on above: Performed By: #### 5 8410-2 ####CALE Roth ([id number])[facility] ([facility])[address] [place] [address] 18858 Hemoglobin (Bld) [Mass/Vol] 11.6 g/dL Low 12.0-16.0 [facility] Comment on above: Performed By: #### 5 8410-2 ####CALE Roth ([id number])[facility] ([facility])[id number] [place] [address] 90392 MCH (RBC) [Entitic mass] 29.3 pg Normal 26.0-34.0 [facility] Comment on above: Performed By: #### 5 8410-2 ####CALE Roth ([id number])[facility] ([facility])[id number] [place] [address] 65106 MCHC (RBC) [Mass/Vol] 33.0 g/dL Normal 32.0-36.0 [facility] Comment on above: Performed By: #### 5 8410-2 ####CALE Roth ([id number])[facility] ([facility])[id number] [place] [address] 92881 MCV (RBC) [Entitic vol] 89 fL Normal 80-100 [facility] Comment on above: Performed By: #### 5 8410-2 ####CALE Roth ([id number])[facility] ([facility])[address] [place] [address] Nucleated RBC/100 WBC (Bld) [Ratio] 0.0 /100 WBCs Normal 0.0-0.0 [facility] Comment on above: Performed By: #### 5 8410-2 ####CALE Roth ([id number])[facility] ([facility])[address]224 [place] [address] Platelets (Bld) [#/Vol] 262 x10*3/uL Normal 150-450 [facility] Comment on above: Performed By: #### 5 8410-2 ####CALE Roth ([id number])[facility] ([facility])[address]30 [place] [address] RBC (Bld) [#/Vol] 3.96 x10*6/uL Low 4.00-5.20 [facility] Comment on above: Performed By: #### 5 8410-2 ####CALE Roth ([id number])[facility] ([facility])[address]28 [place] [address] WBC (Bld) [#/Vol] 9.5 x10*3/uL Normal 4.4-11.3 [facility] Comment on above: Performed By: #### 5 8410-2 ####CALE Roth ([id number])[facility] ([facility])[address] [place] [address] CT HEAD WO IV CONTRASTon CT HEAD WO IV CONTRAST Normal [facility] CT HEAD WO IV CONTRAST Normal [facility] Calcium.ionizedon 03-13-2025 Calcium.ionized (Bld) [Moles/Vol] 1.21 mmol/L Normal 1.1-1.33 [facility] Comment on above: Result Comment: The performance characteristics of ionized calcium testedin heparinized plasma or serum [facility].Testing on heparinized plasma or serum is not approved [facility] FDA; however, such approval is not necessary. Performed By: #### 1 994-3 ####CALE CAI L ([id number])[facility] ([facility])[address]66 [place] [address] Glucose Test strip manual (B ld) [Mass/Vol]on 03-13-2025 Glucose [Mass/Vol] 180 mg/dL High [address] [place] [address] Comment on above: Performed By: #### 2 341-6 ####CALE PARKERTZGONZALEZ L ([id number])[facility] ([facility])[address]25 [place] [address] Glucose [Mass/Vol] 146 mg/dL High [address] [place] [address] Comment on above: Performed By: #### 2 341-6 ####CALE CAI L ([id number])[facility] ([facility])[address]1005 [place] [address] Glucose [Mass/Vol] 182 mg/dL High [address] [place] [address] Comment on above: Performed By: #### 2 341-6 ####CALE PARKERTZGONZALEZ L ([id number])[facility] ([facility])[address]45 [place] [address] Glucose [Mass/Vol] 159 mg/dL High [address] [place] [address] Comment on above: Performed By: #### 2 341-6 ####CALE TOSCANOMOTZER L ([id number])[facility] ([facility])[address] [place] [address] Glucose [Mass/Vol] 153 mg/dL High [address] [place] [address] Comment on above: Performed By: #### 2 341-6 ####CALE PARKERTZGONZALEZ L ([id number])[facility] ([facility])[address]86 [place] [address] Glucose [Mass/Vol] 129 mg/dL High [address] [place] [address] Comment on above: Performed By: #### 2 341-6 ####CALE TOSCANOMOTZER L ([id number])[facility] ([facility])[address]854 [place] [address] Glucose [Mass/Vol] 155 mg/dL High 74-99 [facility] Comment on above: Performed By: #### 2 341-6 ####CAEL Roth ([id number])[facility] ([facility])[address]378 [place] [address] Magnesiumon 03-13-2025 Magnesium [Mass/Vol] 2.32 mg/dL Normal 1.60-2.40 [facility] Comment on above: Performed By: #### 1 9123-9 ####CALE Roth ([id number])[facility] ([facility])[address]113 [place] [address] Procalcitoninon 03-13-2025 Procalcitonin [Mass/Vol] 0.03 ng/mL Normal <=0.07 [facility] Comment on above: Order Comment: Proca [...] evaluated. Performed By: #### 3 3959-8 ####CALE CAI L ([id number])[facility] ([facility])[address]80 [place] [address] Renal function 2000 panelon 03-13-2025 Albumin BCP dye [Mass/Vol] 4.1 g/dL Normal 3.4-5.0 [facility] Comment on above: Performed By: #### 2 4362-6 ####CALE Roth ([id number])[facility] ([facility])[address]42 [place] [address] Anion gap [Moles/Vol] 16 mmol/L Normal 10-20 [facility] Comment on above: Performed By: #### 2 4362-6 ####CALE Roth ([id number])[facility] ([facility])[address]809 [place] [address] Calcium [Mass/Vol] 9.1 mg/dL Normal 8.6-10.6 [facility] Comment on above: Performed By: #### 2 4362-6 ####CALE Roth ([id number])[facility] ([facility])[address]73 [place] [address] Chloride [Moles/Vol] 106 mmol/L Normal 98-107 [facility] Comment on above: Performed By: #### 2 4362-6 ####CALE Roth ([id number])[facility] ([facility])[address]197 [place] [address] CO2 [Moles/Vol] 25 mmol/L Normal 21-32 [facility] Comment on above: Performed By: #### 2 4362-6 ####CALE Roth ([id number])[facility] ([facility])[address]86 [place] [address] Creatinine [Mass/Vol] 0.44 mg/dL Low 0.50-1.05 [facility] Comment on above: Performed By: #### 2 4362-6 ####CALE Roth ([id number])[facility] ([facility])[address]55 [place] [address] Glomerular filtration rate >90 Normal >60 [facility] Comment on above: Result Comment: Calc ulations of estimated GFR are performed using the 2020 CKD-EPI Study Refit equation without the race variable for the IDMS-Traceable creatinine methods.https://jasn.asnjournals.org/content/early/ASN .9781384195 Performed By: #### 2 4362-6 ####CALE Roth ([id number])[facility] ([facility])[address] [place] [address] Glucose [Mass/Vol] 154 mg/dL High 74-99 [facility] Comment on above: Performed By: #### 2 4362-6 ####CALE Roth ([id number])[facility] ([facility])[address]791 [place] [address] Phosphate [Mass/Vol] 2.9 mg/dL Normal 2.5-4.9 [facility] Comment on above: Performed By: #### 2 4362-6 ####CALE Roth ([id number])[facility] ([facility])[address]255 [place] [address] Potassium [Moles/Vol] 3.8 mmol/L Normal 3.5-5.3 [facility] Comment on above: Performed By: #### 2 4362-6 ####CALE Roth ([id number])[facility] ([facility])[address]642 [place] [address] Urea nitrogen [Mass/Vol] 18 mg/dL Normal 6-23 [facility] Comment on above: Performed By: #### 2 4362-6 ####CALE Roth ([id number])[facility] ([facility])[address]64 [place] [address] Sodiumon 03-13-2025 Sodium [Moles/Vol] 141 mmol/L Normal 136-145 [facility] Comment on above: Performed By: #### 2 951-2 ####CALE Roth ([id number])[facility] ([facility])[address]86 [place] [address] Sodium [Moles/Vol] 139 mmol/L Normal 136-145 [facility] Comment on above: Performed By: #### 2 951-2 ####CALE Roth (67910)[facility] ([facility])[address] [place] [address]1973 Sodium [Moles/Vol] 143 mmol/L Normal 136-145 [facility] Comment on above: Performed By: #### 2 951-2 ####CALE Roth ([id number])[facility] ([facility])[address] [place] [address] Performed By: #### 2 4362-6 ####CALE Roth (69753)[facility] ([facility])[id number] [place] [address] 93847 CBC panel Auto (Bld)on 03-12 Erythrocyte distribution width (RBC) [Ratio] 11.6 % Normal 11.5-14.5 [facility] Comment on above: Performed By: #### 5 8410-2 ####CALE Roth ([id number])[facility] ([facility])[address] [place] [address]20 Hematocrit (Bld) [Volume fraction] 32.0 % Low 36.0-46.0 [facility] Comment on above: Performed By: #### 5 8410-2 ####CALE Roth ([id number])[facility] ([facility])[address] [place] [address] 68930 Hemoglobin (Bld) [Mass/Vol] 10.9 g/dL Low 12.0-16.0 [facility] Comment on above: Performed By: #### 5 8410-2 ####CALE Roth ([id number])[facility] ([facility])[address] [place] [address] 01090 MCH (RBC) [Entitic mass] 29.9 pg Normal 26.0-34.0 [facility] Comment on above: Performed By: #### 5 8410-2 ####CALE Roth ([id number])[facility] ([facility])16965 [place] [address] MCHC (RBC) [Mass/Vol] 34.1 g/dL Normal 32.0-36.0 [facility] Comment on above: Performed By: #### 5 8410-2 ####CALE Roth (94392)[facility] ([facility])[address]73 [place] [address] MCV (RBC) [Entitic vol] 88 fL Normal 80-100 [facility] Comment on above: Performed By: #### 5 8410-2 ####CALE Roth (25801)[facility] ([facility])[address]57 [place] [address] Nucleated RBC/100 WBC (Bld) [Ratio] 0.0 /100 WBCs Normal 0.0-0.0 [facility] Comment on above: Performed By: #### 5 8410-2 ####CALE Roth ([id number])[facility] ([facility])76361 [place] [address] Platelets (Bld) [#/Vol] 233 x10*3/uL Normal 150-450 [facility] Comment on above: Performed By: #### 5 8410-2 ####CALE Roth ([id number])[facility] ([facility])[address]429 [place] [address] RBC (Bld) [#/Vol] 3.64 x10*6/uL Low 4.00-5.20 [facility] Comment on above: Performed By: #### 5 8410-2 ####CALE Roth ([id number])[facility] ([facility])13467 [place] [address] WBC (Bld) [#/Vol] 8.0 x10*3/uL Normal 4.4-11.3 [facility] Comment on above: Performed By: #### 5 8410-2 ####CALE Roth ([id number])[facility] ([facility])16495 [place] [address] Calcium.ionizedon 03-12-2025 Calcium.ionized (Bld) [Moles/Vol] 1.20 mmol/L Normal 1.1-1.33 [facility] Comment on above: Result Comment: The performance characteristics of ionized calcium testedin heparinized plasma or serum [facility].Testing on heparinized plasma or serum is not approved bythe FDA; however, such approval is not necessary. Performed By: #### 1 994-3 ####CALE Roth (88012)[facility] ([facility])[address]20 [place] [address] Glucose Test strip manual (B ld) [Mass/Vol]on 03-12-2025 Glucose [Mass/Vol] 153 mg/dL High [address] [place] [address] Comment on above: Performed By: #### 2 341-6 ####CALE Roth ([id number])[facility] ([facility])[address]238 [place] [address] Glucose [Mass/Vol] 141 mg/dL High [address] [place] [address] Comment on above: Performed By: #### 2 341-6 ####CALE Roth ([id number])[facility] ([facility])[address]45 [place] [address] Glucose [Mass/Vol] 155 mg/dL High [address] [place] [address] Comment on above: Performed By: #### 2 341-6 ####CALE Roth ([id number])[facility] ([facility])[address]15 [place] [address] Glucose [Mass/Vol] 135 mg/dL High [address] [place] [address] Comment on above: Performed By: #### 2 341-6 ####CALE Roth ([id number])[facility] ([facility])[address]28 [place] [address] Glucose [Mass/Vol] 158 mg/dL High [address] [place] [address] Comment on above: Performed By: #### 2 341-6 ####CALE Roth ([id number])[facility] ([facility])[address]996 [place] [address] Magnesiumon 03-12-2025 Magnesium [Mass/Vol] 2.22 mg/dL Normal 1.60-2.40 [facility] Comment on above: Performed By: #### 1 9123-9 ####CALE Roth ([id number])[facility] ([facility])[address] [place] [address] Renal function 2000 panelon 03-12-2025 Albumin BCP dye [Mass/Vol] 3.8 g/dL Normal 3.4-5.0 [facility] Comment on above: Performed By: #### 2 4362-6 ####CALE Roth ([id number])[facility] ([facility])[id number] [place] [address] 31494 Anion gap [Moles/Vol] 9 mmol/L Low 10-20 [facility] Comment on above: Performed By: #### 2 4362-6 ####CALE Roth ([id number])[facility] ([facility])[address]37 [place] [address] Calcium [Mass/Vol] 8.9 mg/dL Normal 8.6-10.6 [facility] Comment on above: Performed By: #### 2 4362-6 ####CALE Roth ([id number])[facility] ([facility])[id number] [place] [address]82 Chloride [Moles/Vol] 105 mmol/L Normal 98-107 [facility] Comment on above: Performed By: #### 2 4362-6 ####CALE Roth ([id number])[facility] ([facility])[address]55 [place] [address] CO2 [Moles/Vol] 31 mmol/L Normal 21-32 [facility] Comment on above: Performed By: #### 2 4362-6 ####CALE Roth ([id number])[facility] ([facility])[address] [place] [address] Creatinine [Mass/Vol] 0.42 mg/dL Low 0.50-1.05 [facility] Comment on above: Performed By: #### 2 4362-6 ####CALE Roth ([id number])[facility] ([facility])[address] [place] [address] Glomerular filtration rate >90 Normal >60 [facility] Comment on above: Result Comment: Calc ulations of estimated GFR are performed using the 2020 CKD-EPI Study Refit equation without the race variable for the IDMS-Traceable creatinine methods.https://jasn.asnjournals.org/content/early/ASN .4782872564 Performed By: #### 2 4362-6 ####CALE Roth ([id number])[facility] ([facility])[address] [place] [address] Glucose [Mass/Vol] 147 mg/dL High 74-99 [facility] Comment on above: Performed By: #### 2 4362-6 ####CALE CAI L ([id number])[facility] ([facility])[address] [place] [address] Phosphate [Mass/Vol] 3.8 mg/dL Normal 2.5-4.9 [facility] Comment on above: Performed By: #### 2 4362-6 ####CALE CAI L ([id number])[facility] ([facility])[address] [place] [address] Potassium [Moles/Vol] 3.4 mmol/L Low 3.5-5.3 [facility] Comment on above: Performed By: #### 2 4362-6 ####CALE CAI L ([id number])[facility] ([facility])[address] [place] [address] Urea nitrogen [Mass/Vol] 18 mg/dL Normal 6-23 [facility] Comment on above: Performed By: #### 2 4362-6 ####CALE Roth ([id number])[facility] ([facility])[address] [place] [address] Sodiumon 03-12-2025 Sodium [Moles/Vol] 145 mmol/L Normal 136-145 [facility] Comment on above: Performed By: #### 2 951-2 ####CALE Roth ([id number])[facility] ([facility])[address] [place] [address] Sodium [Moles/Vol] 139 mmol/L Normal 136-145 [facility] Comment on above: Performed By: #### 2 951-2 ####CALE Roth ([id number])[facility] ([facility])[address] [facility] [place] [address] Sodium [Moles/Vol] 141 mmol/L Normal 136-145 [facility] Comment on above: Performed By: #### 2 951-2 ####CALE Roth ([id number])[facility] ([facility])[address] [facility] [place] [address] Sodium [Moles/Vol] 142 mmol/L Normal 136-145 [facility] Comment on above: Performed By: #### 2 951-2 ####CALE Roth ([id number])[facility] ([facility])[address]99 [facility] [place] [address] Performed By: #### 2 4362-6 ####CALE Roth ([id number])[facility] ([facility])[address] [facility] [place] [place] [address] VASC US UPPER EXTREMITY VENO US DUPLEX BILATERALon 03-12-2025 VASC US UPPER EXTREMITY VENOUS DUPLEX BILATERAL Normal [facility] CBC panel Auto (Bld)on 03-11 Erythrocyte distribution width (RBC) [Ratio] 11.5 % Normal 11.5-14.5 [facility] Comment on above: Performed By: #### 5 8410-2 ####CALE Roth ([id number])[facility] ([facility])[address]142 [place] [address] Hematocrit (Bld) [Volume fraction] 30.3 % Low 36.0-46.0 [facility] Comment on above: Performed By: #### 5 8410-2 ####CALE Roth ([id number])[facility] ([facility])[address]50 [place] [address] Hemoglobin (Bld) [Mass/Vol] 10.9 g/dL Low 12.0-16.0 [facility] Comment on above: Performed By: #### 5 8410-2 ####CALE Roth ([id number])[facility] ([facility])[address] [place] [address] MCH (RBC) [Entitic mass] 30.0 pg Normal 26.0-34.0 [facility] Comment on above: Performed By: #### 5 8410-2 ####CALE Roth ([id number])[facility] ([facility])[address] [place] [address] MCHC (RBC) [Mass/Vol] 36.0 g/dL Normal 32.0-36.0 [facility] Comment on above: Performed By: #### 5 8410-2 ####CALE Roth ([id number])[facility] ([facility])[address] [place] [address]86[address] MCV (RBC) [Entitic vol] 84 fL Normal 80-100 [facility] Comment on above: Performed By: #### 5 8410-2 ####CALE Roth ([id number])[facility] ([facility])[id number] [place] [address]94[address] Nucleated RBC/100 WBC (Bld) [Ratio] 0.0 /100 WBCs Normal 0.0-0.0 [facility] Comment on above: Performed By: #### 5 8410-2 ####CALE Roth ([id number])[facility] ([facility])[id number] [place] [address] Platelets (Bld) [#/Vol] 231 x10*3/uL Normal 150-450 [facility] Comment on above: Performed By: #### 5 8410-2 ####CALE Roth ([id number])[facility] ([facility])[address]65 [place] [address] RBC (Bld) [#/Vol] 3.63 x10*6/uL Low 4.00-5.20 [facility] Comment on above: Performed By: #### 5 8410-2 ####CALE Roth ([id number])[facility] ([facility])[address]69 [place] [address] WBC (Bld) [#/Vol] 8.0 x10*3/uL Normal 4.4-11.3 [facility] Comment on above: Performed By: #### 5 8410-2 ####CALE Roth ([id number])[facility] ([facility])[address] [place] [address] Calcium.ionizedon 03-11-2025 Calcium.ionized (Bld) [Moles/Vol] 1.21 mmol/L Normal 1.1-1.33 [facility] Comment on above: Result Comment: The performance characteristics of ionized calcium testedin heparinized plasma or serum have [facility].Testing on heparinized plasma or serum is not approved [facility] FDA; however, such approval is not necessary. Performed By: #### 1 994-3 ####CALE Roth ([id number])[facility] ([facility])[address]85 [place] [address] Glucose Test strip manual (B ld) [Mass/Vol]on 03-11-2025 Glucose [Mass/Vol] 151 mg/dL High 74-99 [facility] Comment on above: Performed By: #### 2 341-6 ####CALE Roth ([id number])[facility] ([facility])[address]01 [place] [address] Glucose [Mass/Vol] 125 mg/dL High 74-99 [facility] Comment on above: Performed By: #### 2 341-6 ####CALE Roth ([id number])[facility] ([facility])[address]33 [place] [address] Glucose [Mass/Vol] 171 mg/dL High [address] [place] [address] Comment on above: Performed By: #### 2 341-6 ####CALE Roth ([id number])[facility] ([facility])[address]131 [place] [address] Glucose [Mass/Vol] 158 mg/dL High -99 [facility] Comment on above: Performed By: #### 2 341-6 ####CALE Roth ([id number])[facility] ([facility])[address] [place] [address] Glucose [Mass/Vol] 142 mg/dL High [address] [place] [address] Comment on above: Performed By: #### 2 341-6 ####CALE Roth ([id number])[facility] ([facility])[address] [place] [address] Glucose [Mass/Vol] 132 mg/dL High [address] [place] [address] Comment on above: Performed By: #### 2 341-6 ####CALE Roth ([id number])[facility] ([facility])[id number] [place] [address] Magnesiumon 03-11-2025 Magnesium [Mass/Vol] 2.15 mg/dL Normal 1.60-2.40 [facility] Comment on above: Performed By: #### 1 9123-9 ####CALE Roth ([id number])[facility] ([facility])[address]16 [place] [address] Renal function 2000 panelon 03-11-2025 Albumin BCP dye [Mass/Vol] 4.0 g/dL Normal 3.4-5.0 [facility] Comment on above: Performed By: #### 2 4362-6 ####CALE Roth ([id number])[facility] ([facility])[address]903 [place] [address] Anion gap [Moles/Vol] 11 mmol/L Normal 10-20 [facility] Comment on above: Performed By: #### 2 4362-6 ####CALE CAI L ([id number])[facility] ([facility])[address]598 [place] [address] Calcium [Mass/Vol] 9.4 mg/dL Normal 8.6-10.6 [facility] Comment on above: Performed By: #### 2 4362-6 ####CALE CAI L ([id number])[facility] ([facility])[address]74 [place] [address] Chloride [Moles/Vol] 105 mmol/L Normal 98-107 [facility] Comment on above: Performed By: #### 2 4362-6 ####CALE CAI L ([id number])[facility] ([facility])[address]609 [place] [address] CO2 [Moles/Vol] 28 mmol/L Normal 21-32 [facility] Comment on above: Performed By: #### 2 4362-6 ####CALE CAI L ([id number])[facility] ([facility])[address]447 [place] [address] Creatinine [Mass/Vol] 0.37 mg/dL Low 0.50-1.05 [facility] Comment on above: Performed By: #### 2 4362-6 ####CALE CAI L ([id number])[facility] ([facility])[address]80 [place] [address] Glomerular filtration rate >90 Normal >60 [facility] Comment on above: Result Comment: Calc ulations of estimated GFR are performed using the 2020 CKD-EPI Study Refit equation without the race variable for the IDMS-Traceable creatinine methods.https://jasn.asnjournals.org/content//ASN .1466462652 Performed By: #### 2 4362-6 ####CALE Roth ([id number])[facility] ([facility])[address] [place] [address] Glucose [Mass/Vol] 151 mg/dL High 74-99 [facility] Comment on above: Performed By: #### 2 4362-6 ####CALE Roth ([id number])[facility] ([facility])[address] [place] [address] Phosphate [Mass/Vol] 3.0 mg/dL Normal 2.5-4.9 [facility] Comment on above: Performed By: #### 2 4362-6 ####CALE Roth ([id number])[facility] ([facility])[address]755 [place] [address] Potassium [Moles/Vol] 3.8 mmol/L Normal 3.5-5.3 [facility] Comment on above: Performed By: #### 2 4362-6 ####CALE Roth ([id number])[facility] ([facility])[address]285 [place] [address] Urea nitrogen [Mass/Vol] 16 mg/dL Normal 6-23 [facility] Comment on above: Performed By: #### 2 4362-6 ####CALE Roth ([id number])[facility] ([facility])[address]84 [facility] [place] [address] Albumin BCP dye [Mass/Vol] 3.9 g/dL Normal 3.4-5.0 [facility] Comment on above: Performed By: #### 2 4362-6 ####CALE Roth ([id number])[facility] ([facility])[address]61 [place] [address] Anion gap [Moles/Vol] 13 mmol/L Normal 10-20 [facility] Comment on above: Performed By: #### 2 4362-6 ####CALE Roth ([id number])[facility] ([facility])[address]126 [facility] [place] [address] Calcium [Mass/Vol] 9.2 mg/dL Normal 8.6-10.6 [facility] Comment on above: Performed By: #### 2 4362-6 ####CALE Roth ([id number])[facility] ([facility])[address]377 [place] [address] Chloride [Moles/Vol] 106 mmol/L Normal 98-107 [facility] Comment on above: Performed By: #### 2 4362-6 ####CALE CAI L ([id number])[facility] ([facility])[address]800 [place] [address] CO2 [Moles/Vol] 27 mmol/L Normal 21-32 [facility] Comment on above: Performed By: #### 2 4362-6 ####CALE Roth (68954)[facility] ([facility])[address]113 [place] [address] Creatinine [Mass/Vol] 0.42 mg/dL Low 0.50-1.05 [facility] Comment on above: Performed By: #### 2 4362-6 ####CALE Roth ([id number])[facility] ([facility])[address]83 [place] [address] Glomerular filtration rate >90 Normal >60 [facility] Comment on above: Result Comment: Calc ulations of estimated GFR are performed using the 2020 CKD-EPI Study Refit equation without the race variable for the IDMS-Traceable creatinine methods.https://jasn.asnjournals.org/content/early//ASN .5630984790 Performed By: #### 2 4362-6 ####CALE CAI L ([id number])[facility] ([facility])47306 [place] [address] Glucose [Mass/Vol] 141 mg/dL High 74-99 [facility] Comment on above: Performed By: #### 2 4362-6 ####CALE CAI L ([id number])[facility] ([facility])[address]116 [place] [address] Phosphate [Mass/Vol] 3.0 mg/dL Normal 2.5-4.9 [facility] Comment on above: Performed By: #### 2 4362-6 ####CALE Roth (90184)[facility] ([facility])16015 [place] [address] Potassium [Moles/Vol] 3.2 mmol/L Low 3.5-5.3 [facility] Comment on above: Performed By: #### 2 4362-6 ####CALE Roth ([id number])[facility] ([facility])16377 [place] [address] Urea nitrogen [Mass/Vol] 20 mg/dL Normal 6-23 [facility] Comment on above: Performed By: #### 2 4362-6 ####CALE Roth ([id number])[facility] ([facility])[address] [place] [address] Sodiumon 03-11-2025 Sodium [Moles/Vol] 140 mmol/L Normal 136-145 [facility] Comment on above: Performed By: #### 2 951-2 ####CALE Roth ([id number])[facility] ([facility])[address]23 [place] [address] Sodium [Moles/Vol] 140 mmol/L Normal 136-145 [facility] Comment on above: Performed By: #### 2 951-2 ####CALE Roth ([id number])[facility] ([facility])18831 [place] [address] Sodium [Moles/Vol] 140 mmol/L Normal 136-145 [facility] Comment on above: Performed By: #### 2 951-2 ####CALE Roth ([id number])[facility] ([facility])75925 [place] [address] Performed By: #### 2 4362-6 ####CALE Roth ([id number])[facility] ([facility])20789 [place] [address] Sodium [Moles/Vol] 144 mmol/L Normal 136-145 [facility] Comment on above: Performed By: #### 2 951-2 ####CALE Roth ([id number])[facility] ([facility])19513 [place] [address] Sodium [Moles/Vol] 143 mmol/L Normal 136-145 [facility] Comment on above: Performed By: #### 2 951-2 ####CALE Roth ([id number])[facility] ([facility])[address] [place] [address] Performed By: #### 2 4362-6 ####CALE Roth ([id number])[facility] ([facility])[address] [place] [address] VASC US LOWER EXTREMITY VENO US DUPLEX BILATERALon 03-11-2025 VASC US LOWER EXTREMITY VENOUS DUPLEX BILATERAL Normal [facility] CBC panel Auto (Bld)on 03-10 Erythrocyte distribution width (RBC) [Ratio] 11.6 % Normal 11.5-14.5 [facility] Comment on above: Performed By: #### 5 8410-2 ####CALE Roth ([id number])[facility] ([facility])[id number] [place] [address] Hematocrit (Bld) [Volume fraction] 29.6 % Low 36.0-46.0 [facility] Comment on above: Performed By: #### 5 8410-2 ####CALE Roth (45851)[facility] ([facility])[address] [place] [address] Hemoglobin (Bld) [Mass/Vol] 10.5 g/dL Low 12.0-16.0 [facility] Comment on above: Performed By: #### 5 8410-2 ####CALE Roth ([id number])[facility] ([facility])[address] [place] [address]89 MCH (RBC) [Entitic mass] 29.7 pg Normal 26.0-34.0 [facility] Comment on above: Performed By: #### 5 8410-2 ####CALE Roth (45608)[facility] ([facility])37381 [place] [address] MCHC (RBC) [Mass/Vol] 35.5 g/dL Normal 32.0-36.0 [facility] Comment on above: Performed By: #### 5 8410-2 ####CALE Roth ([id number])[facility] ([facility])25229 [place] [address] MCV (RBC) [Entitic vol] 84 fL Normal 80-100 [facility] Comment on above: Performed By: #### 5 8410-2 ####CALE Roth (26545)[facility] ([facility])53832 [place] [address] Nucleated RBC/100 WBC (Bld) [Ratio] 0.0 /100 WBCs Normal 0.0-0.0 [facility] Comment on above: Performed By: #### 5 8410-2 ####CALE Rtoh (09814)[facility] ([facility])15791 [place] [address] Platelets (Bld) [#/Vol] 197 x10*3/uL Normal 150-450 [facility] Comment on above: Performed By: #### 5 8410-2 ####CALE Roth ([id number])[facility] ([facility])00155 [place] [address] RBC (Bld) [#/Vol] 3.53 x10*6/uL Low 4.00-5.20 [facility] Comment on above: Performed By: #### 5 8410-2 ####CALE Roth ([id number])[facility] ([facility])06933 [place] [address] WBC (Bld) [#/Vol] 6.1 x10*3/uL Normal 4.4-11.3 [facility] Comment on above: Performed By: #### 5 8410-2 ####CALE Roth ([id number])[facility] ([facility])[address]324 [place] [address] CT HEAD WO IV CONTRASTon CT HEAD WO IV CONTRAST Normal [facility] Glucose Test strip manual (B ld) [Mass/Vol]on 03-10-2025 Glucose [Mass/Vol] 151 mg/dL High [address] [place] [address] Comment on above: Performed By: #### 2 341-6 ####CALE Roth ([id number])[facility] ([facility])16518 [place] [address] Glucose [Mass/Vol] 146 mg/dL High [address] [place] [address] Comment on above: Performed By: #### 2 341-6 ####CALE Roth (15207)[facility] ([facility])51181 [place] [address] Glucose [Mass/Vol] 142 mg/dL High [address] [place] [address] Comment on above: Performed By: #### 2 341-6 ####CALE Roth ([id number])[facility] ([facility])24263 [place] [address] Glucose [Mass/Vol] 178 mg/dL High [address] [place] [address] Comment on above: Performed By: #### 2 341-6 ####CALE Roth ([id number])[facility] ([facility])21416 [place] [address] Glucose [Mass/Vol] 152 mg/dL High [address] [place] [address] Comment on above: Performed By: #### 2 341-6 ####CALE Roth ([id number])[facility] ([facility])[address]3591 [place] [address] Glucose [Mass/Vol] 122 mg/dL High [address] [place] [address] Comment on above: Performed By: #### 2 341-6 ####CALE Roth ([id number])[facility] ([facility])07371 [place] [address] Glucose [Mass/Vol] 144 mg/dL High 74-99 [facility] Comment on above: Performed By: #### 2 341-6 ####CALE Roth ([id number])[facility] ([facility])37742 [place] [address] Magnesiumon 03-10-2025 Magnesium [Mass/Vol] 2.06 mg/dL Normal 1.60-2.40 [facility] Comment on above: Performed By: #### 1 9123-9 ####CALE Roth ([id number])[facility] ([facility])[address] [place] [address] Renal function 2000 panelon 03-10-2025 Albumin BCP dye [Mass/Vol] 3.7 g/dL Normal 3.4-5.0 [facility] Comment on above: Performed By: #### 2 4362-6 ####CALE Roth ([id number])[facility] ([facility])[address]05 [place] [address] Anion gap [Moles/Vol] 14 mmol/L Normal 10-20 [facility] Comment on above: Performed By: #### 2 4362-6 ####CALE Roth ([id number])[facility] ([facility])[address]12 [place] [address] Calcium [Mass/Vol] 9.0 mg/dL Normal 8.6-10.6 [facility] Comment on above: Performed By: #### 2 4362-6 ####CALE Roth ([id number])[facility] ([facility])17959 [place] [address] Chloride [Moles/Vol] 106 mmol/L Normal 98-107 [facility] Comment on above: Performed By: #### 2 4362-6 ####CALE Roth (58535)[facility] ([facility])[address]60 [place] [address] CO2 [Moles/Vol] 27 mmol/L Normal 21-32 [facility] Comment on above: Performed By: #### 2 4362-6 ####CALE Roth ([id number])[facility] ([facility])04286 [place] [address] Creatinine [Mass/Vol] 0.38 mg/dL Low 0.50-1.05 [facility] Comment on above: Performed By: #### 2 4362-6 ####CALE Roth ([id number])[facility] ([facility])89225 [place] [address] Glomerular filtration rate >90 Normal >60 [facility] Comment on above: Result Comment: Calc ulations of estimated GFR are performed using the 2020 CKD-EPI Study Refit equation without the race variable for the IDMS-Traceable creatinine methods.https://jasn.asnjournals.org/content/early//ASN .9718575220 Performed By: #### 2 4362-6 ####CALE Roth ([id number])[facility] ([facility])12614 [place] [address] Glucose [Mass/Vol] 139 mg/dL High 74-99 [facility] Comment on above: Performed By: #### 2 4362-6 ####CALE Roth (60346)[facility] ([facility])38522 [place] [address] Phosphate [Mass/Vol] 2.9 mg/dL Normal 2.5-4.9 [facility] Comment on above: Performed By: #### 2 4362-6 ####CALE Roth ([id number])[facility] ([facility])34050 [place] [address] Potassium [Moles/Vol] 3.5 mmol/L Normal 3.5-5.3 [facility] Comment on above: Performed By: #### 2 4362-6 ####CALE Roth ([id number])[facility] ([facility])[address] [place] [address] Sodium [Moles/Vol] 143 mmol/L Normal 136-145 [facility] Comment on above: Performed By: #### 2 4362-6 ####CALE Roth ([id number])[facility] ([facility])[address] [place] [address] Urea nitrogen [Mass/Vol] 16 mg/dL Normal 6-23 [facility] Comment on above: Performed By: #### 2 4362-6 ####CALE Roth ([id number])[facility] ([facility])[address] [place] [address] Sodiumon 03-10-2025 Sodium [Moles/Vol] 145 mmol/L Normal 136-145 [facility] Comment on above: Performed By: #### 2 951-2 ####CALE Roth ([id number])[facility] ([facility])[id number] [place] [address] Sodium [Moles/Vol] 144 mmol/L Normal 136-145 [facility] Comment on above: Performed By: #### 2 951-2 ####CALE Roth ([id number])[facility] ([facility])[address] [place] [address] CBC W Auto Differential pane l (Bld)on 03-09-2025 Basophils (Bld) [#/Vol] 0.04 x10*3/uL Normal 0.00-0.10 [facility] Comment on above: Performed By: #### 5 7021-8 ####CALE Roth ([id number])[facility] ([facility])[address] [place] [address] Basophils/100 WBC (Bld) 0.6 % Normal 0.0-2.0 [facility] Comment on above: Performed By: #### 5 7021-8 ####CALE Roth ([id number])[facility] ([facility])[address] [place] [address] Eosinophils (Bld) [#/Vol] 0.07 x10*3/uL Normal 0.00-0.70 [facility] Comment on above: Performed By: #### 5 7021-8 ####CALE Roth ([id number])[facility] ([facility])[id number] [place] [address] Eosinophils/100 WBC (Bld) 1.1 % Normal 0.0-6.0 [facility] Comment on above: Performed By: #### 5 7021-8 ####CALE Roth ([id number])[facility] ([facility])[address] [place] [id number] Erythrocyte distribution width (RBC) [Ratio] 11.4 % Low 11.5-14.5 [facility] Comment on above: Performed By: #### 5 7021-8 ####CALE Roth ([id number])[facility] ([facility])[address] [place] [address]02 Hematocrit (Bld) [Volume fraction] 31.0 % Low 36.0-46.0 [facility] Comment on above: Performed By: #### 5 7021-8 ####CALE Roth ([id number])[facility] ([facility])[address] [place] [address] 25834 Hemoglobin (Bld) [Mass/Vol] 10.8 g/dL Low 12.0-16.0 [facility] Comment on above: Performed By: #### 5 7021-8 ####CALE Roth ([id number])[facility] ([facility])[id number] [place] [address]79 Immature granulocytes (Bld) [#/Vol] 0.24 x10*3/uL Normal 0.00-0.70 [facility] Comment on above: Performed By: #### 5 7021-8 ####CALE Roth ([id number])[facility] ([facility])[id number] [place] [address]960 Immature granulocytes/100 WBC (Bld) 3.8 % High 0.0-0.9 [facility] Comment on above: Result Comment: Aleisha ture Granulocyte Count (IG) includes promyelocytes, myelocytes and metamyelocytes but does not include bands. Percent differential counts (%) should be interpreted in the context of the absolute cell counts (cells/UL). Performed By: #### 5 7021-8 ####CALE Roth ([id number])[facility] ([facility])[address] [place] [address] Lymphocytes (Bld) [#/Vol] 1.02 x10*3/uL Low 1.20-4.80 [facility] Comment on above: Performed By: #### 5 7021-8 ####CALE Roth ([id number])[facility] ([facility])[address] [place] [address] Lymphocytes/100 WBC (Bld) 16.2 % Normal 13.0-44.0 [facility] Comment on above: Performed By: #### 5 7021-8 ####CALE Roth ([id number])[facility] ([facility])[address] [place] [address] MCH (RBC) [Entitic mass] 29.8 pg Normal 26.0-34.0 [facility] Comment on above: Performed By: #### 5 7021-8 ####CALE Roth ([id number])[facility] ([facility])[address] [place] [address] MCHC (RBC) [Mass/Vol] 34.8 g/dL Normal 32.0-36.0 [facility] Comment on above: Performed By: #### 5 7021-8 ####CALE TOSCANOMOISAURA L ([id number])[facility] ([facility])[address] [place] [address] MCV (RBC) [Entitic vol] 86 fL Normal 80-100 [facility] Comment on above: Performed By: #### 5 7021-8 ####CALE Roth ([id number])[facility] ([facility])[address] [place] [address] Monocytes (Bld) [#/Vol] 0.67 x10*3/uL Normal 0.10-1.00 [facility] Comment on above: Performed By: #### 5 7021-8 ####CALE CAI L ([id number])[facility] ([facility])[address]266 [place] [address] Monocytes/100 WBC (Bld) 10.7 % Normal 2.0-10.0 [facility] Comment on above: Performed By: #### 5 7021-8 ####CALE CAI L ([id number])[facility] ([facility])[address] [place] [address] Neutrophils (Bld) [#/Vol] 4.25 x10*3/uL Normal 1.20-7.70 [facility] Comment on above: Result Comment: Perc ent differential counts (%) should be interpreted in the context of the absolute cell counts (cells/uL). Performed By: #### 5 7021-8 ####CALE CAI L ([id number])[facility] ([facility])[address] [place] [address] Neutrophils/100 WBC (Bld) 67.6 % Normal 40.0-80.0 [facility] Comment on above: Performed By: #### 5 7021-8 ####CALE CAI L ([id number])[facility] ([facility])[address]19 [place] [address] Nucleated RBC/100 WBC (Bld) [Ratio] 0.0 /100 WBCs Normal 0.0-0.0 [facility] Comment on above: Performed By: #### 5 7021-8 ####CALE CAI L ([id number])[facility] ([facility])[address]245 [place] [address] Platelets (Bld) [#/Vol] 184 x10*3/uL Normal 150-450 [facility] Comment on above: Performed By: #### 5 7021-8 ####CALE Roth ([id number])[facility] ([facility])[address] [place] [address] RBC (Bld) [#/Vol] 3.62 x10*6/uL Low 4.00-5.20 [facility] Comment on above: Performed By: #### 5 7021-8 ####CALE Roth ([id number])[facility] ([facility])[address]85 [place] [address] WBC (Bld) [#/Vol] 6.3 x10*3/uL Normal 4.4-11.3 [facility] Comment on above: Performed By: #### 5 7021-8 ####CALE Roth ([id number])[facility] ([facility])[id number] [place] [address]12 Calcium.ionizedon 03-09-2025 Calcium.ionized (Bld) [Moles/Vol] 1.19 mmol/L Normal 1.1-1.33 [facility] Comment on above: Result Comment: The performance characteristics of ionized calcium testedin heparinized plasma or serum have [facility].Testing on heparinized plasma or serum is not approved bythe FDA; however, such approval is not necessary. Performed By: #### 1 994-3 ####CALE Roht ([id number])[facility] ([facility])[address] [place] [address] Glucose Test strip manual (B ld) [Mass/Vol]on 03-09-2025 Glucose [Mass/Vol] 134 mg/dL High [address] [place] [address] Comment on above: Performed By: #### 2 341-6 ####CALE Roth ([id number])[facility] ([facility])[address] [place] [address] Glucose [Mass/Vol] 139 mg/dL [facility] [address] Comment on above: Performed By: #### 2 341-6 ####CALE Roth ([id number])[facility] ([facility])[address] [place] [address] Glucose [Mass/Vol] 133 mg/dL High 74-99 [facility] Comment on above: Performed By: #### 2 341-6 ####CALE Roth ([id number])[facility] ([facility])[address] [place] [address] Glucose [Mass/Vol] 154 mg/dL High 74-99 [facility] Comment on above: Performed By: #### 2 341-6 ####CALE Roth ([id number])[facility] ([facility])[address]70 [place] [address] Glucose [Mass/Vol] 162 mg/dL High 74-99 [facility] Comment on above: Performed By: #### 2 341-6 ####CALE Roth ([id number])[facility] ([facility])[address]339 [place] [address] Magnesiumon 03-09-2025 Magnesium [Mass/Vol] 2.01 mg/dL Normal 1.60-2.40 [facility] Comment on above: Performed By: #### 1 9123-9 ####CALE Roth ([id number])[facility] ([facility])[address]116 [place] [address] Renal function 2000 panelon 03-09-2025 Albumin BCP dye [Mass/Vol] 3.6 g/dL Normal 3.4-5.0 [facility] Comment on above: Performed By: #### 2 4362-6 ####CALE Roth ([id number])[facility] ([facility])[address]43 [place] [address] Anion gap [Moles/Vol] 12 mmol/L Normal 10-20 [facility] Comment on above: Performed By: #### 2 4362-6 ####CALE Roth ([id number])[facility] ([facility])[address]184 [place] [address] Calcium [Mass/Vol] 8.9 mg/dL Normal 8.6-10.6 [facility] Comment on above: Performed By: #### 2 4362-6 ####CALE Roth ([id number])[facility] ([facility])[address]50 [place] [address] Chloride [Moles/Vol] 106 mmol/L Normal 98-107 [facility] Comment on above: Performed By: #### 2 4362-6 ####CALE CAI L ([id number])[facility] ([facility])[address] [place] [address] CO2 [Moles/Vol] 29 mmol/L Normal 21-32 [facility] Comment on above: Performed By: #### 2 4362-6 ####CALE Roth ([id number])[facility] ([facility])[address]04 [place] [address] Creatinine [Mass/Vol] 0.47 mg/dL Low 0.50-1.05 [facility] Comment on above: Performed By: #### 2 4362-6 ####CALE Roth ([id number])[facility] ([facility])[address] [place] [address] Glomerular filtration rate >90 Normal >60 [facility] Comment on above: Result Comment: Calc ulations of estimated GFR are performed using the 2020 CKD-EPI Study Refit equation without the race variable for the IDMS-Traceable creatinine methods.https://jasn.asnjournals.org/content/early//ASN .5694487481 Performed By: #### 2 4362-6 ####CALE CAI L ([id number])[facility] ([facility])[address]28 [place] [address] Glucose [Mass/Vol] 154 mg/dL High 74-99 [facility] Comment on above: Performed By: #### 2 4362-6 ####CALE CAI L ([id number])[facility] ([facility])[address]23 [place] [address] Phosphate [Mass/Vol] 2.8 mg/dL Normal 2.5-4.9 [facility] Comment on above: Performed By: #### 2 4362-6 ####CALE Roth ([id number])[facility] ([facility])[address]137 [place] [address] Potassium [Moles/Vol] 3.6 mmol/L Normal 3.5-5.3 [facility] Comment on above: Performed By: #### 2 4362-6 ####CALE Roth ([id number])[facility] ([facility])[address]77 [place] [address] Urea nitrogen [Mass/Vol] 14 mg/dL Normal 6-23 [facility] Comment on above: Performed By: #### 2 4362-6 ####CALE Roth ([id number])[facility] ([facility])[address]61 [place] [address] Sodiumon 03-09-2025 Sodium [Moles/Vol] 143 mmol/L Normal 136-145 [facility] Comment on above: Performed By: #### 2 951-2 ####CALE Roth ([id number])[facility] ([facility])[address]00 [place] [address] Sodium [Moles/Vol] 146 mmol/L High 136-145 [facility] Comment on above: Performed By: #### 2 951-2 ####CALE Roth ([id number])[facility] ([facility])[address]26 [place] [address] Sodium [Moles/Vol] 144 mmol/L Normal 136-145 [facility] Comment on above: Performed By: #### 2 951-2 ####CALE Roth ([id number])[facility] ([facility])[address]18 [place] [address] Sodium [Moles/Vol] 143 mmol/L Normal 136-145 [facility] Comment on above: Performed By: #### 2 951-2 ####CALE Roth ([id number])[facility] ([facility])[address]61 [place] [address] Performed By: #### 2 4362-6 ####CALE Roth ([id number])[facility] ([facility])[address] [place] [address] Vancomycinon 03-09-2025 Vancomycin [Mass/Vol] 13.6 ug/mL Normal 5.0-20.0 [facility] Comment on above: Order Comment: Vanco [...] Performed By: #### 2 0578-1 ####CALE Roth ([id number])[facility] ([facility])[address] [place], [place] [address] Adenovirus DNAon 03-08-2025 Adenovirus DNA JOSE+probe Ql (Unsp spec) Not detected Normal Not detected [facility] Comment on above: Order Comment: This [...] Performed By: #### 3 9528-5 ####CALE Roth ([id number])[facility] ([facility])[address]903 [place] [address] Bacteriaon 03-08-2025 Bacteria identified Respiratory culture Nom (Unsp spec) Abnormal [facility] Comment on above: Performed By: #### 3 2355-0 ####CALE TOSCANOMOTZER L ([id number])[facility] ([facility])[address]37 [place] [address] Bacteria identified Cx Nom (CSF) Normal [facility] Comment on above: Performed By: #### 6 06-4 ####CALE SCHMOTZER L ([id number])[facility] ([facility])[address]603 [place] [address] Bacteria identified Cx Nom (Bld) Normal [facility] Comment on above: Performed By: #### 6 00-7 ####CALE EVERTONMOTZER L ([id number])[facility] ([facility])[address] [place] [address] CBC W Auto Differential pane l (d)on 03-08-2025 Erythrocyte distribution width (RBC) [Ratio] 11.9 % Normal 11.5-14.5 [facility] Comment on above: Order Comment: The [...] By: #### 5 7021-8 ####CALE TOSCANOMOTZER L ([id number])[facility] ([facility])[address]282 [place] [address] Hematocrit (Bld) [Volume fraction] 36.7 % Normal 36.0-46.0 [facility] Comment on above: Order Comment: The [...] Performed By: #### 5 7021-8 ####CALE Roth ([id number])[facility] ([facility])[address] [place] [address] Hemoglobin (Bld) [Mass/Vol] 12.1 g/dL Normal 12.0-16.0 [facility] Comment on above: Order Comment: The [...] Performed By: #### 5 7021-8 ####CALE Roth ([id number])[facility] ([facility])[address] [place] [address] Immature granulocytes (Bld) [#/Vol] 0.19 x10*3/uL Normal 0.00-0.70 [facility] Comment on above: Order Comment: The [...] Performed By: #### 5 7021-8 ####CALE Roth ([id number])[facility] ([facility])[address] [place] [address] Immature granulocytes/100 WBC (Bld) 1.5 % High 0.0-0.9 [facility] Comment on above: Order Comment: The [...] Performed By: #### 5 7021-8 ####CALE Roth ([id number])[facility] ([facility])[address]103 [place] [address] MCH (RBC) [Entitic mass] 30.0 pg Normal 26.0-34.0 [facility] Comment on above: Order Comment: The [...] Performed By: #### 5 7021-8 ####CALE Roth ([id number])[facility] ([facility])[address]14 [place] [address] MCHC (RBC) [Mass/Vol] 33.0 g/dL Normal 32.0-36.0 [facility] Comment on above: Order Comment: The p [...] By: #### 5 7021-8 ####CALE TOSCANOMOTZER L ([id number])[facility] ([facility])[address]793 [place] [address] MCV (RBC) [Entitic vol] 91 fL Normal 80-100 [facility] Comment on above: Order Comment: The [...] By: #### 5 7021-8 ####CALE TOSCANOMOTZER L ([id number])[facility] ([facility])[address]197 [place] [address] Nucleated RBC/100 WBC (Bld) [Ratio] 0.0 /100 WBCs Normal 0.0-0.0 [facility] Comment on above: Order Comment: The [...] By: #### 5 7021-8 ####CALE PARKERTZER L ([id number])[facility] ([facility])[address]487 [place] [address] Platelets (Bld) [#/Vol] 200 x10*3/uL Normal 150-450 [facility] Comment on above: Order Comment: The [...] By: #### 5 7021-8 ####CALE TOSCANOMOTZER L ([id number])[facility] ([facility])[address]642 [place] [address] RBC (Bld) [#/Vol] 4.03 x10*6/uL Normal 4.00-5.20 [facility] Comment on above: Order Comment: The [...] By: #### 5 7021-8 ####CALE TOSCANOMOTZER L ([id number])[facility] ([facility])[address] [place] [address] WBC (Bld) [#/Vol] 12.6 x10*3/uL High 4.4-11.3 [facility] Comment on above: Order Comment: The [...] Performed By: #### 5 7021-8 ####CALE Roth ([id number])[facility] ([facility])[id number] [place] [address] CSF CELL COUNTon 03-08-2025 Appearance (CSF) Turbid Abnormal Clear [facility] Comment on above: Order Comment: CSF c ell count reference ranges have not been established by [facility]. Based on published references. Performed By: #### C TCS4 ####CALE TOSCANOMOTZER L ([id number])[facility] ([facility])[id number] [place] [address]251 Color (CSF) Red Abnormal Colorless [facility] Comment on above: Order Comment: CSF c ell count reference ranges have not been established by [facility]. Based on published references. Performed By: #### C TCS4 ####ACLE PARKERTZER L ([id number])[facility] ([facility])[address]79 [place] [address] Color (Spun CSF) Xanthochromic Normal [facility] Comment on above: Order Comment: CSF c ell count reference ranges have not been established by [facility]. Based on published references. Performed By: #### C TCS4 ####CALE TOSCANOMOTZER L ([id number])[facility] ([facility])[address]54 [place] [address] RBC Auto (CSF) [#/Vol] 74376 /uL High 0-5 [facility] Comment on above: Order Comment: CSF c ell count reference ranges have not been established by [facility]. Based on published references. Performed By: #### C TCS4 ####CALE Roth ([id number])[facility] ([facility])[address] [place] [address] Tube number Nom (CSF) [ID] Unspecified Normal [facility] Comment on above: Order Comment: CSF c ell count reference ranges have not been established by [facility]. Based on published references. Performed By: #### C TCS4 ####CALE Roth ([id number])[facility] ([facility])[id number] [place] [address] 57387 WBC Auto (CSF) [#/Vol] 5 /uL Normal 1-5 [facility] Comment on above: Order Comment: CSF c ell count reference ranges have not been established by [facility]. Based on published references. Performed By: #### Poncho TCS4 ####CALE Roth ([id number])[facility] ([facility])[address] [place] [address] 18420 CSF DIFFERENTIALon 5 Cells Counted Total (CSF) [#] 38 Normal [facility] Comment on above: Order Comment: CSF c ell differential reference ranges have not been established by [facility]. Based on published references. Performed By: #### D FCSF ####CALE Roth ([id number])[facility] ([facility])[id number] [place] [address]793 Lymphocytes/100 WBC Manual cnt (CSF) 42 % Normal 28-96 [facility] Comment on above: Order Comment: CSF c ell differential reference ranges have not been established by [facility]. Based on published references. Performed By: #### D FCSF ####CALE Roth ([id number])[facility] ([facility])[address]38 [place] [address] Monocytes+Macrophage s/100 WBC Manual cnt (CSF) 16 % Normal 16-56 [facility] Comment on above: Order Comment: CSF c ell differential reference ranges have not been established by [facility]. Based on published references. Performed By: #### D FCSF ####CALE Roth ([id number])[facility] ([facility])[address]64 [place] [address] Segmented neutrophils/100 WBC Manual cnt (CSF) 42 % High 0-5 [facility] Comment on above: Order Comment: CSF c ell differential reference ranges have not been established by [facility]. Based on published references. Performed By: #### D FCSF ####CALE Roth ([id number])[facility] ([facility])[address] [place] [address] CT HEAD WO IV CONTRASTon CT HEAD WO IV CONTRAST Normal [facility] Calcium.ionizedon 03-08-2025 Calcium.ionized (Bld) [Moles/Vol] 1.18 mmol/L Normal 1.1-1.33 [facility] Comment on above: Result Comment: The performance characteristics of ionized calcium testedin heparinized plasma or serum [facility].Testing on heparinized plasma or serum is not approved bythe FDA; however, such approval is not necessary. Performed By: #### 1 994-3 ####CALE Roth ([id number])[facility] ([facility])[address]677 [place] [address] Glucoseon 03-08-2025 Glucose (CSF) [Mass/Vol] 84 mg/dL High 40-70 [facility] Comment on above: Performed By: #### 2 342-4 ####CALE Roth ([id number])[facility] ([facility])[address]798 [place] [address] Glucose Test strip manual (B ld) [Mass/Vol]on 03-08-2025 Glucose [Mass/Vol] 133 mg/dL High 74-99 [facility] Comment on above: Performed By: #### 2 341-6 ####CALE Roth ([id number])[facility] ([facility])[address]61 [place] [address] Glucose [Mass/Vol] 119 mg/dL High 74-99 [facility] Comment on above: Performed By: #### 2 341-6 ####CALE Roth ([id number])[facility] ([facility])[address]448 [place] [address] Glucose [Mass/Vol] 127 mg/dL High [address] [place] [address] Comment on above: Performed By: #### 2 341-6 ####CALE Roth ([id number])[facility] ([facility])[address]168 [place] [address] Glucose [Mass/Vol] 124 mg/dL High [address] [place] [address] Comment on above: Performed By: #### 2 341-6 ####CALE Roth ([id number])[facility] ([facility])[address]71 [place] [address] Glucose [Mass/Vol] 127 mg/dL High [address] [place] [address] Comment on above: Performed By: #### 2 341-6 ####CALE Roth ([id number])[facility] ([facility])[address]27 [place] [address] Glucose [Mass/Vol] 135 mg/dL High [address] [place] [address] Comment on above: Performed By: #### 2 341-6 ####CALE Roth ([id number])[facility] [address] [facility] ([facility])[address] [place] [address] Glucose [Mass/Vol] 124 mg/dL High [address] [place] [address] Comment on above: Performed By: #### 2 341-6 ####CALE Roth ([id number])[facility] [address] [facility] ([facility])[address] [place] [address] Human metapneumovirus RNAon 03-08-2025 hMPV RNA JOSE+probe Ql (Unsp spec) Not detected Normal Not detected [facility] Comment on above: Order Comment: This [...] Performed By: #### 3 8917-1 ####CALE Roth ([id number])[facility] [address] [facility] ([facility])[address] [place] [address] Influenza virus Aon 03-08-20 25 FLUAV RNA JOSE+probe Ql (Resp) Not detected Normal Not Detected [facility] Comment on above: Order Comment: This assay is an FDA-cleared, in vitro diagnostic nucleic acid amplification test for the qualitative detection and differentiation of SARS CoV-2/ Influenza A/B/ RSV from nasopharyngeal specimens collected from individuals with signs and symptoms of respiratory tract infections, and has been validated for use at [facility]. Negative results do not preclude COVID-19/ Influenza A/B/ RSV infections and should not be used as the sole basis for diagnosis, treatment, or other management decisions. Testing for SARS CoV-2 is recommended only for patients who meet current clinical and/or epidemiological criteria defined by federal, state, or local public health directives. Performed By: #### 9 5941-1 ####CALE Roth ([id number])[facility] ([facility])[address] [place], [place] [id number] FLUBV RNA JOSE+probe Ql (Resp) Not detected Normal Not Detected [facility] Comment on above: Order Comment: This assay is an FDA-cleared, in vitro diagnostic nucleic acid amplification test for the qualitative detection and differentiation of SARS CoV-2/ Influenza A/B/ RSV from nasopharyngeal specimens collected from individuals with signs and symptoms of respiratory tract infections, and has been validated for use at [facility]. Negative results do not preclude COVID-19/ Influenza A/B/ RSV infections and should not be used as the sole basis for diagnosis, treatment, or other management decisions. Testing for SARS CoV-2 is recommended only for patients who meet current clinical and/or epidemiological criteria defined by federal, state, or local public health directives. Performed By: #### 9 5941-1 ####CALE Roth ([id number])[facility] ([facility])[address] [place] [address] RSV RNA JOSE+probe Ql (Resp) Not detected Normal Not Detected [facility] Comment on above: Order Comment: This assay is an FDA-cleared, in vitro diagnostic nucleic acid amplification test for the qualitative detection and differentiation of SARS CoV-2/ Influenza A/B/ RSV from nasopharyngeal specimens collected from individuals with signs and symptoms of respiratory tract infections, and has been validated for use at [facility]. Negative results do not preclude COVID-19/ Influenza A/B/ RSV infections and should not be used as the sole basis for diagnosis, treatment, or other management decisions. Testing for SARS CoV-2 is recommended only for patients who meet current clinical and/or epidemiological criteria defined by federal, state, or local public health directives. Performed By: #### 9 5941-1 ####CALE Roth ([id number])[facility] ([facility])[address] [place] [address] SARS-CoV-2 (COVID-19) RNA JOSE+probe Ql (Resp) Not detected Normal Not Detected [facility] Comment on above: Order Comment: This assay is an FDA-cleared, in vitro diagnostic nucleic acid amplification test for the qualitative detection and differentiation of SARS CoV-2/ Influenza A/B/ RSV from nasopharyngeal specimens collected from individuals with signs and symptoms of respiratory tract infections, and has been validated for use at [facility]. Negative results do not preclude COVID-19/ Influenza A/B/ RSV infections and should not be used as the sole basis for diagnosis, treatment, or other management decisions. Testing for SARS CoV-2 is recommended only for patients who meet current clinical and/or epidemiological criteria defined by federal, state, or local public health directives. Performed By: #### 9 5941-1 ####CALE Roth ([id number])[facility] ([facility])[address] [place] [address] Magnesiumon 03-08-2025 Magnesium [Mass/Vol] 2.17 mg/dL Normal 1.60-2.40 [facility] Comment on above: Performed By: #### 1 9123-9 ####CALE Roth ([id number])[facility] ([facility])[address] [place] [address] Manual differential performe d Ql (Bld)on 03-08-2025 Band form neutrophils (Bld) [#/Vol] 0.87 x10*3/uL High 0.00-0.70 [facility] Comment on above: Performed By: #### 5 57-0 ####CALE Roth ([id number])[facility] ([facility])[address] [place] [address] Band form neutrophils/100 WBC (Bld) 6.9 % Normal 0.0-5.0 [facility] Comment on above: Performed By: #### 5 57-0 ####CALE Roth ([id number])[facility] ([facility])[address] [place] [address] Basophils (Bld) [#/Vol] 0.00 x10*3/uL Normal 0.00-0.10 [facility] Comment on above: Performed By: #### 5 57-0 ####CALE Roth ([id number])[facility] ([facility])[address] [place] [address] Basophils/100 WBC (Bld) 0.0 % Normal 0.0-2.0 [facility] Comment on above: Performed By: #### 5 57-0 ####CALE Roth ([id number])[facility] ([facility])[address] [place] [address] Blasts Manual cnt (Bld) [#/Vol] 0.00 x10*3/uL Normal 0.00-0.00 [facility] Comment on above: Performed By: #### 5 57-0 ####CALE Roth ([id number])[facility] ([facility])[address] [place] [address] Blasts/100 WBC (Bld) 0.0 % Normal 0.0-0.0 [facility] Comment on above: Performed By: #### 5 57-0 ####CALE Roth ([id number])[facility] ([facility])[address] [place] [address] Cells Counted Total (Bld) [#] 116 Normal [facility] Comment on above: Performed By: #### 5 57-0 ####CALE Roth ([id number])[facility] ([facility])[address] [place] [address] Eosinophils (Bld) [#/Vol] 0.00 x10*3/uL Normal 0.00-0.70 [facility] Comment on above: Performed By: #### 5 57-0 ####CALE Roth ([id number])[facility] ([facility])[address] [place] [address] Eosinophils/100 WBC (Bld) 0.0 % Normal 0.0-6.0 [facility] Comment on above: Performed By: #### 5 57-0 ####CALE Roth ([id number])[facility] ([facility])[address] [place] [address] Lymphocytes (Bld) [#/Vol] 1.30 x10*3/uL Normal 1.20-4.80 [facility] Comment on above: Performed By: #### 5 57-0 ####CALE Roth ([id number])[facility] ([facility])[address] [place] [address] Lymphocytes/100 WBC (Bld) 10.3 % Normal 13.0-44.0 [facility] Comment on above: Performed By: #### 5 57-0 ####CALE Roth ([id number])[facility] ([facility])[address] [place] [address] Metamyelocytes (Bld) [#/Vol] 0.00 x10*3/uL Normal 0.00-0.00 [facility] Comment on above: Performed By: #### 5 57-0 ####CALE Roth ([id number])[facility] ([facility])[address] [place] [address] Metamyelocytes/100 WBC (Bld) 0.0 % Normal 0.0-0.0 [facility] Comment on above: Performed By: #### 5 57-0 ####CALE Roth ([id number])[facility] ([facility])[address] [place] [address] Monocytes (Bld) [#/Vol] 0.54 x10*3/uL Normal 0.10-1.00 [facility] Comment on above: Performed By: #### 5 57-0 ####CALE Roth ([id number])[facility] ([facility])[address] [place] [address] Monocytes/100 WBC (Bld) 4.3 % Normal 2.0-10.0 [facility] Comment on above: Performed By: #### 5 57-0 ####CALE Roth ([id number])[facility] ([facility])[id number] [place] [address] Myelocytes (Bld) [#/Vol] 0.00 x10*3/uL Normal 0.00-0.00 [facility] Comment on above: Performed By: #### 5 57-0 ####CALE Roth ([id number])[facility] ([facility])[address] [place] [address] Myelocytes/100 WBC (Bld) 0.0 % Normal 0.0-0.0 [facility] Comment on above: Performed By: #### 5 57-0 ####CALE Roth ([id number])[facility] ([facility])[address] [place] [address] Neutrophils (Bld) [#/Vol] 10.76 x10*3/uL High 1.20-7.70 [facility] Comment on above: Performed By: #### 5 57-0 ####CALE Roth ([id number])[facility] ([facility])[address] [place] [address] Nucleated RBC/100 WBC (Bld) [Ratio] 0.0 % Normal 0.0-0.0 [facility] Comment on above: Performed By: #### 5 57-0 ####CALE Roth ([id number])[facility] ([facility])[address] [place] [address] Ovalocytes LM Ql (Bld) Few Normal [facility] Comment on above: Performed By: #### 5 57-0 ####CALE Roth ([id number])[facility] ([facility])[address] [place] [address] Plasma cells (Bld) [#/Vol] 0.00 x10*3/uL Normal 0.00-0.00 [facility] Comment on above: Performed By: #### 5 57-0 ####CALE Roth ([id number])[facility] ([facility])[address] [place] [address] Plasma cells/100 WBC Manual cnt (Bld) 0.0 % Normal 0.00-0.00 [facility] Comment on above: Performed By: #### 5 57-0 ####CALE Roth ([id number])[facility] ([facility])[address] [place] [address] Promyelocytes (Bld) [#/Vol] 0.00 x10*3/uL Normal 0.00-0.00 [facility] Comment on above: Performed By: #### 5 57-0 ####CALE Roth ([id number])[facility] ([facility])[address] [place] [address] Promyelocytes/100 WBC (Bld) 0.0 % Normal 0.0-0.0 [facility] Comment on above: Performed By: #### 5 57-0 ####CALE Roth ([id number])[facility] ([facility])[address] [place] [address] RBC morphology finding Nom (Bld) See Below [facility] Comment on above: Performed By: #### 5 0957-0 ####CALE Roth ([id number])[facility] ([facility])[address]137 [place] [address] Segmented neutrophils (Bld) [#/Vol] 9.89 x10*3/uL High 1.20-7.00 [facility] Comment on above: Performed By: #### 5 0957-0 ####CALE Roth ([id number])[facility] ([facility])[address] [place] [address] Segmented neutrophils/100 WBC (Bld) 78.5 % Normal 40.0-80.0 [facility] Comment on above: Result Comment: Perc ent differential counts (%) should be interpreted in the context of the absolute cell counts (cells/uL). Performed By: #### 5 0957-0 ####CALE Roth ([id number])[facility] ([facility])[address] [place] [address] Variant lymphocytes (Bld) [#/Vol] 0.00 x10*3/uL Normal 0.00-0.50 [facility] Comment on above: Performed By: #### 5 0957-0 ####CALE Roth ([id number])[facility] ([facility])[address] [place] [address] Variant lymphocytes/100 WBC (Bld) 0.0 % Normal 0.0-2.0 [facility] Comment on above: Performed By: #### 5 0957-0 ####CALE Roth ([id number])[facility] ([facility])[address] [place] [address] WBC other Manual cnt (Bld) [#/Vol] 0.00 x10*3/uL Normal [facility] Comment on above: Performed By: #### 5 0957-0 ####CALE Roth ([id number])[facility] ([facility])[address] [place] [address] WBC other/100 WBC (Bld) 0.0 % Normal [facility] Comment on above: Performed By: #### 5 0957-0 ####CALE Roth ([id number])[facility] ([facility])[address] [place] [address] Parainfluenza virus RNA JOSE+ probe Ql (Upper resp)on 03-08-2025 Parainfluenza virus 1 RNA JOSE+probe Ql (Unsp spec) Not detected Normal Not Detected, Invalid [facility] Comment on above: Order Comment: This [...] Performed By: #### 9 1798-9 ####CALE Roth ([id number])[facility] ([facility])[address]37 [place] [address] Parainfluenza virus 2 RNA JOSE+probe Ql (Unsp spec) Not detected Normal Not Detected, Invalid [facility] Comment on above: Order Comment: This [...] Performed By: #### 9 1798-9 ####CALE Roth (96736)[facility] ([facility])[address]75 [place] [address] Parainfluenza virus 3 RNA JOSE+probe Ql (Unsp spec) Not detected Normal Not Detected, Invalid [facility] Comment on above: Order Comment: This [...] Performed By: #### 9 1798-9 ####CALE Roth ([id number])[facility] ([facility])[address]38 [place] [address] Parainfluenza virus 4 RNA JOSE+probe Ql (Unsp spec) Not detected Normal Not Detected, Invalid [facility] Comment on above: Order Comment: This [...] Performed By: #### 9 1798-9 ####CALE Roth ([id number])[facility] ([facility])[address] [place] [address] Procalcitoninon 03-08-2025 Procalcitonin [Mass/Vol] 0.21 ng/mL High <=0.07 [facility] Comment on above: Order Comment: Proca [...] Performed By: #### 3 3959-8 ####CALE Roth ([id number])[facility] ([facility])[address] [place] [address] Proteinon 03-08-2025 Protein (CSF) [Mass/Vol] 61 mg/dL High 15-45 [facility] Comment on above: Performed By: #### 2 880-3 ####CALE Roth ([id number])[facility] ([facility])[address] [place] [address] Renal function 2000 panelon 03-08-2025 Albumin BCP dye [Mass/Vol] 3.9 g/dL Normal 3.4-5.0 [facility] Comment on above: Performed By: #### 2 4362-6 ####CALE Roth ([id number])[facility] ([facility])[address] [place] [address] Anion gap [Moles/Vol] 11 mmol/L Normal 10-20 [facility] Comment on above: Performed By: #### 2 4362-6 ####CALE Roth ([id number])[facility] ([facility])[address] [place] [address] Calcium [Mass/Vol] 9.2 mg/dL Normal 8.6-10.6 [facility] Comment on above: Performed By: #### 2 4362-6 ####CALE Roth (47292)[facility] ([facility])[address] [place] [address] Chloride [Moles/Vol] 107 mmol/L Normal 98-107 [facility] Comment on above: Performed By: #### 2 4362-6 ####CALE Roth ([id number])[facility] ([facility])[address] [place] [address] CO2 [Moles/Vol] 27 mmol/L Normal 21-32 [facility] Comment on above: Performed By: #### 2 4362-6 ####CALE Roth ([id number])[facility] ([facility])[address] [place] [address] Creatinine [Mass/Vol] 0.46 mg/dL Low 0.50-1.05 [facility] Comment on above: Performed By: #### 2 4362-6 ####CALE Roth ([id number])[facility] ([facility])[address] [place] [address] Glomerular filtration rate >90 Normal >60 [facility] Comment on above: Result Comment: Calc ulations of estimated GFR are performed using the 2020 CKD-EPI Study Refit equation without the race variable for the IDMS-Traceable creatinine methods.https://jasn.asnjournals.org/content/early//ASN .7454699626 Performed By: #### 2 4362-6 ####CALE Roth ([id number])[facility] ([facility])[address] [place] [address] Glucose [Mass/Vol] 151 mg/dL High 74-99 [facility] Comment on above: Performed By: #### 2 4362-6 ####CALE Roth ([id number])[facility] ([facility])[address] [place] [address] Phosphate [Mass/Vol] 3.0 mg/dL Normal 2.5-4.9 [facility] Comment on above: Performed By: #### 2 4362-6 ####CALE Roth ([id number])[facility] ([facility])[address]67 [place] [address] Potassium [Moles/Vol] 3.7 mmol/L Normal 3.5-5.3 [facility] Comment on above: Performed By: #### 2 4362-6 ####CALE Roth (55003)[facility] ([facility])[address]28 [place] [address] Urea nitrogen [Mass/Vol] 15 mg/dL Normal 6-23 [facility] Comment on above: Performed By: #### 2 4362-6 ####CALE Roth ([id number])[facility] ([facility])[address] [place] [address] Rhinovirus RNAon 03-08-2025 Rhinovirus RNA JOSE+probe Ql (Upper resp) Not detected Normal Not Detected [facility] Comment on above: Order Comment: This [...] Performed By: #### 9 1793-0 ####CALE Roth (60572)[facility] ([facility])[address] [place] [address] Sodiumon 03-08-2025 Sodium [Moles/Vol] 143 mmol/L Normal 136-145 [facility] Comment on above: Performed By: #### 2 951-2 ####CALE Roth ([id number])[facility] ([facility])[address] [place] [address] Sodium [Moles/Vol] 141 mmol/L Normal 136-145 [facility] Comment on above: Performed By: #### 2 951-2 ####CALE Roth ([id number])[facility] ([facility])[address] [place] [address] Sodium [Moles/Vol] 141 mmol/L Normal 136-145 [facility] Comment on above: Performed By: #### 2 951-2 ####CALE Roth ([id number])[facility] ([facility])[address] [place] [address] Performed By: #### 2 4362-6 ####CALE Roth ([id number])[facility] ([facility])[address] [place] [address] Staphylococcus aureus.methic illin resistant DNAon 03-08-2025 MRSA DNA JOSE+probe Ql (Nose) Staphylococcus aureus.methicillin resistant DNA Not Detected Normal Not Detected [facility] Comment on above: Order Comment: This [...] Performed By: #### 9 0001-9 ####CALE Roth ([id number])[facility] ([facility])[address] [place] [address] Triglycerideon 03-08-2025 Triglyceride [Mass/Vol] 81 mg/dL Normal 0-114 [facility] Comment on above: Order Comment: While [...] Performed By: #### 2 571-8 ####CALE Roth ([id number])[facility] ([facility])[address] [place], [place] [address] Urinalysis complete W Reflex Culture panel (U)on 03-08-2025 Appearance (U) Clear Normal Clear [facility] Comment on above: Performed By: #### 5 8077-9 ####CALE Roth ([id number])[facility] ([facility])[address]53 [place] [address] Bilirubin (U) [Mass/Vol] Negative Normal NEGATIVE [facility] Comment on above: Performed By: #### 5 8077-9 ####CALE Roth ([id number])[facility] ([facility])[address] [place] [address] Color (U) Light-Yellow Normal Light-Yello w, Yellow, Dark-Yellow [facility] Comment on above: Performed By: #### 5 8077-9 ####CALE Roth ([id number])[facility] ([facility])[address]123 [place] [address] Glucose Auto test strip (U) [Mass/Vol] Normal Normal Normal [facility] Comment on above: Performed By: #### 5 8077-9 ####CALE Roth ([id number])[facility] ([facility])[address]87 [place] [address] Ketones (U) [Mass/Vol] 40 (2+) Abnormal NEGATIVE [facility] Comment on above: Performed By: #### 5 8077-9 ####CALE Roth ([id number])[facility] ([facility])[address]83 [place] [address] Leukocyte esterase Auto test strip Ql (U) Negative Normal NEGATIVE [facility] Comment on above: Performed By: #### 5 8077-9 ####CALE Roth ([id number])[facility] ([facility])[address]25 [place] [address] Nitrite Auto test strip Ql (U) Negative Normal NEGATIVE [facility] Comment on above: Performed By: #### 5 8077-9 ####CALE Roth ([id number])[facility] ([facility])[address]50 [place] [address] pH (U) 7.0 [pH] Normal 5.0, 5.5, 6.0, 6.5, 7.0, 7.5, 8.0 [facility] Comment on above: Performed By: #### 5 8077-9 ####CALE Roth ([id number])[facility] ([facility])[address] [place] [address] Protein (U) [Mass/Vol] Negative Normal NEGATIVE, 10 (TRACE), 20 (TRACE) [facility] Comment on above: Performed By: #### 5 8077-9 ####CALE Roth ([id number])[facility] ([facility])[id number] [place] [address] RBC (U) [#/Vol] Negative Normal NEGATIVE [facility] Comment on above: Performed By: #### 5 8077-9 ####CALE Roth ([id number])[facility] ([facility])[address] [place] [address] Specific gravity (U) [Rel density] 1.018 Normal 1.005-1.035 [facility] Comment on above: Performed By: #### 5 8077-9 ####CALE Roth ([id number])[facility] ([facility])[address] [place] [address] Urobilinogen (U) [Mass/Vol] Normal Normal Normal [facility] Comment on above: Performed By: #### 5 8077-9 ####CALE Roth ([id number])[facility] ([facility])[id number] [place] [address] XR CHEST 1 VIEWon 03-08-2025 XR CHEST 1 VIEW Normal [facility] CBC W Auto Differential pane l (Bld)on 03-07-2025 Basophils (Bld) [#/Vol] 0.01 x10*3/uL Normal 0.00-0.10 [facility] Comment on above: Performed By: #### 5 7021-8 ####CALE Roth ([id number])[facility] ([facility])[address] [place] [address] Basophils/100 WBC (Bld) 0.1 % Normal 0.0-2.0 [facility] Comment on above: Performed By: #### 5 7021-8 ####CALE Roth ([id number])[facility] ([facility])[id number] [place] [address] 62423 Eosinophils (Bld) [#/Vol] 0.06 x10*3/uL Normal 0.00-0.70 [facility] Comment on above: Performed By: #### 5 7021-8 ####CALE Roth ([id number])[facility] ([facility])[id number] [place] [address] 06918 Eosinophils/100 WBC (Bld) 0.7 % Normal 0.0-6.0 [facility] Comment on above: Performed By: #### 5 7021-8 ####CALE Roth ([id number])[facility] ([facility])[address] [place] [address] [id number] Erythrocyte distribution width (RBC) [Ratio] 12.1 % Normal 11.5-14.5 [facility] Comment on above: Performed By: #### 5 7021-8 ####CALE Roth ([id number])[facility] ([facility])[address] [place] [address] [id number] Hematocrit (Bld) [Volume fraction] 32.0 % Low 36.0-46.0 [facility] Comment on above: Performed By: #### 5 7021-8 ####CALE Roth ([id number])[facility] ([facility])[id number] [place] [address] Hemoglobin (Bld) [Mass/Vol] 10.8 g/dL Low 12.0-16.0 [facility] Comment on above: Performed By: #### 5 7021-8 ####CALE Roth ([id number])[facility] ([facility])[address] [place] [address] Immature granulocytes (Bld) [#/Vol] 0.08 x10*3/uL Normal 0.00-0.70 [facility] Comment on above: Performed By: #### 5 7021-8 ####CALE Roth ([id number])[facility] ([facility])[address] [place] [address] Immature granulocytes/100 WBC (Bld) 1.0 % High 0.0-0.9 [facility] Comment on above: Result Comment: Aleisha ture Granulocyte Count (IG) includes promyelocytes, myelocytes and metamyelocytes but does not include bands. Percent differential counts (%) should be interpreted in the context of the absolute cell counts (cells/UL). Performed By: #### 5 7021-8 ####CALE Roth ([id number])[facility] ([facility])[address] [place] [address] Lymphocytes (Bld) [#/Vol] 1.03 x10*3/uL Low 1.20-4.80 [facility] Comment on above: Performed By: #### 5 7021-8 ####CALE Roth ([id number])[facility] ([facility])[address] [place] [address] Lymphocytes/100 WBC (Bld) 12.5 % Normal 13.0-44.0 [facility] Comment on above: Performed By: #### 5 7021-8 ####CALE Roth ([id number])[facility] ([facility])[address] [place] [address] MCH (RBC) [Entitic mass] 30.2 pg Normal 26.0-34.0 [facility] Comment on above: Performed By: #### 5 7021-8 ####CALE Roth ([id number])[facility] ([facility])[address] [place] [address] MCHC (RBC) [Mass/Vol] 33.8 g/dL Normal 32.0-36.0 [facility] Comment on above: Performed By: #### 5 7021-8 ####CALE Roth ([id number])[facility] ([facility])[address] [place] [address] MCV (RBC) [Entitic vol] 89 fL Normal 80-100 [facility] Comment on above: Performed By: #### 5 7021-8 ####CALE Roth ([id number])[facility] ([facility])[address] [place] [address] Monocytes (Bld) [#/Vol] 0.54 x10*3/uL Normal 0.10-1.00 [facility] Comment on above: Performed By: #### 5 7021-8 ####CALE Roth ([id number])[facility] ([facility])[address] [place] [address] Monocytes/100 WBC (Bld) 6.6 % Normal 2.0-10.0 [facility] Comment on above: Performed By: #### 5 7021-8 ####CALE Roth ([id number])[facility] ([facility])[address] [place] [address] Neutrophils (Bld) [#/Vol] 6.51 x10*3/uL Normal 1.20-7.70 [facility] Comment on above: Result Comment: Perc ent differential counts (%) should be interpreted in the context of the absolute cell counts (cells/uL). Performed By: #### 5 7021-8 ####CALE Roth ([id number])[facility] ([facility])[address] [place] [address] Neutrophils/100 WBC (Bld) 79.1 % Normal 40.0-80.0 [facility] Comment on above: Performed By: #### 5 7021-8 ####CALE Roth ([id number])[facility] ([facility])[address] [place] [address] Nucleated RBC/100 WBC (Bld) [Ratio] 0.0 /100 WBCs Normal 0.0-0.0 [facility] Comment on above: Performed By: #### 5 7021-8 ####CALE TOSCANOMOISAURA Roth ([id number])[facility] ([facility])[address] [place] [address] Platelets (Bld) [#/Vol] 144 x10*3/uL Low 150-450 [facility] Comment on above: Performed By: #### 5 7021-8 ####CALE Roth ([id number])[facility] ([facility])[address]23 [place] [address] RBC (Bld) [#/Vol] 3.58 x10*6/uL Low 4.00-5.20 [facility] Comment on above: Performed By: #### 5 7021-8 ####CALE Roth ([id number])[facility] ([facility])[address]672 [place] [address] WBC (Bld) [#/Vol] 8.2 x10*3/uL Normal 4.4-11.3 [facility] Comment on above: Performed By: #### 5 7021-8 ####CALE Roth ([id number])[facility] ([facility])[address]157 [place] [address] Calcium.ionizedon 03-07-2025 Calcium.ionized (Bld) [Moles/Vol] 1.21 mmol/L Normal 1.1-1.33 [facility] Comment on above: Result Comment: The performance characteristics of ionized calcium testedin heparinized plasma or serum have [facility].Testing on heparinized plasma or serum is not approved bythe FDA; however, such approval is not necessary. Performed By: #### 1 994-3 ####CALE Roth ([id number])[facility] ([facility])[address]012 [place] [address] Glucose Test strip manual (B ld) [Mass/Vol]on 03-07-2025 Glucose [Mass/Vol] 132 mg/dL High 74-99 [facility] Comment on above: Performed By: #### 2 341-6 ####CALE Roth ([id number])[facility] ([facility])[address]192 [place] [address] Glucose [Mass/Vol] 93 mg/dL Normal 74-99 [facility] Comment on above: Performed By: #### 2 341-6 ####CALE Roth ([id number])[facility] ([facility])[address]43 [place] [address] Glucose [Mass/Vol] 102 mg/dL High 74-99 [facility] Comment on above: Performed By: #### 2 341-6 ####CALE Roth ([id number])[facility] ([facility])[address]277 [place] [address] Glucose [Mass/Vol] 100 mg/dL High 74-99 [facility] Comment on above: Performed By: #### 2 341-6 ####CALE Roth ([id number])[facility] ([facility])[address]021 [place] [address] Glucose [Mass/Vol] 108 mg/dL High 74-99 [facility] Comment on above: Performed By: #### 2 341-6 ####CALE Roth ([id number])[facility] ([facility])[address]487 [place] [address] Magnesiumon 03-07-2025 Magnesium [Mass/Vol] 2.09 mg/dL Normal 1.60-2.40 [facility] Comment on above: Performed By: #### 1 9123-9 ####CALE Roth ([id number])[facility] ([facility])[address]35 [place] [address] Renal function 2000 panelon 03-07-2025 Albumin BCP dye [Mass/Vol] 3.9 g/dL Normal 3.4-5.0 [facility] Comment on above: Performed By: #### 2 4362-6 ####CALE Roth ([id number])[facility] ([facility])[address]14 [place] [address] Anion gap [Moles/Vol] 14 mmol/L Normal 10-20 [facility] Comment on above: Performed By: #### 2 4362-6 ####CALE Roth ([id number])[facility] ([facility])[address]493 [place] [address] Calcium [Mass/Vol] 8.8 mg/dL Normal 8.6-10.6 [facility] Comment on above: Performed By: #### 2 4362-6 ####CALE Roth ([id number])[facility] ([facility])[address]200 [place] [address] Chloride [Moles/Vol] 109 mmol/L High 98-107 [facility] Comment on above: Performed By: #### 2 4362-6 ####CALE Roth ([id number])[facility] ([facility])[address]64 [place] [address] CO2 [Moles/Vol] 24 mmol/L Normal 21-32 [facility] Comment on above: Performed By: #### 2 4362-6 ####CALE Roth ([id number])[facility] ([facility])[address]67 [place] [address] Creatinine [Mass/Vol] 0.44 mg/dL Low 0.50-1.05 [facility] Comment on above: Performed By: #### 2 4362-6 ####CALE CAI L ([id number])[facility] ([facility])[address] [place] [address] Glomerular filtration rate >90 Normal >60 [facility] Comment on above: Result Comment: Calc ulations of estimated GFR are performed using the 2020 CKD-EPI Study Refit equation without the race variable for the IDMS-Traceable creatinine methods.https://jasn.asnjournals.org/content/early/ASN .3140927173 Performed By: #### 2 4362-6 ####CALE CAI L ([id number])[facility] ([facility])[address]86 [place] [address] Glucose [Mass/Vol] 115 mg/dL High 74-99 [facility] Comment on above: Performed By: #### 2 4362-6 ####CALE Roth ([id number])[facility] ([facility])[address] [facility] [place] [address] Phosphate [Mass/Vol] 2.6 mg/dL Normal 2.5-4.9 [facility] Comment on above: Performed By: #### 2 4362-6 ####CALE Roth ([id number])[facility] ([facility])[address]67 [place] [address] Potassium [Moles/Vol] 3.5 mmol/L Normal 3.5-5.3 [facility] Comment on above: Performed By: #### 2 4362-6 ####CALE Roth ([id number])[facility] ([facility])[address]450 [place] [address] Sodium [Moles/Vol] 143 mmol/L Normal 136-145 [facility] Comment on above: Performed By: #### 2 4362-6 ####CALE Roth ([id number])[facility] ([facility])[address]31 [place] [address] Urea nitrogen [Mass/Vol] 13 mg/dL Normal 6-23 [facility] Comment on above: Performed By: #### 2 4362-6 ####CALE Roth ([id number])[facility] ([facility])[address]322 [place] [address] Sodiumon 03-07-2025 Sodium [Moles/Vol] 140 mmol/L Normal 136-145 [facility] Comment on above: Performed By: #### 2 951-2 ####CALE CAI L ([id number])[facility] ([facility])[address]77 [place] [address] Sodium [Moles/Vol] 141 mmol/L Normal 136-145 [facility] Comment on above: Performed By: #### 2 951-2 ####CALE CAI L ([id number])[facility] ([facility])[address]75 [place] [address] Sodium [Moles/Vol] 141 mmol/L Normal 136-145 [facility] Comment on above: Performed By: #### 2 951-2 ####CALE Roth ([id number])[facility] ([facility])[address]143 [place] [address] Triglycerideon 03-07-2025 Triglyceride [Mass/Vol] 96 mg/dL Normal 0-114 [facility] Comment on above: Order Comment: While [...] Performed By: #### 2 571-8 ####CALE Roth ([id number])[facility] ([facility])[address]254 [place] [address] CBC W Auto Differential pane l (Bld)on 03-06-2025 Basophils (Bld) [#/Vol] 0.01 x10*3/uL Normal 0.00-0.10 [facility] Comment on above: Performed By: #### 5 7021-8 ####CALE Roth ([id number])[facility] ([facility])[address]70 [place] [address] Basophils/100 WBC (Bld) 0.1 % Normal 0.0-2.0 [facility] Comment on above: Performed By: #### 5 7021-8 ####CALE Roth (47721)[facility] ([facility])[address]69 [place] [address] Eosinophils (Bld) [#/Vol] 0.02 x10*3/uL Normal 0.00-0.70 [facility] Comment on above: Performed By: #### 5 7021-8 ####CALE Roth (87700)[facility] ([facility])[address] [place] [address] Eosinophils/100 WBC (Bld) 0.2 % Normal 0.0-6.0 [facility] Comment on above: Performed By: #### 5 7021-8 ####CALE Roth ([id number])[facility] ([facility])[address] [place] [address] Erythrocyte distribution width (RBC) [Ratio] 12.2 % Normal 11.5-14.5 [facility] Comment on above: Performed By: #### 5 7021-8 ####CALE Roth ([id number])[facility] ([facility])[address] [place] [address] Hematocrit (Bld) [Volume fraction] 33.2 % Low 36.0-46.0 [facility] Comment on above: Performed By: #### 5 7021-8 ####CALE Roth ([id number])[facility] ([facility])[address] [place] [address] Hemoglobin (Bld) [Mass/Vol] 11.3 g/dL Low 12.0-16.0 [facility] Comment on above: Performed By: #### 5 7021-8 ####CLAE Roth ([id number])[facility] ([facility])[address] [place] [address] Immature granulocytes (Bld) [#/Vol] 0.05 x10*3/uL Normal 0.00-0.70 [facility] Comment on above: Performed By: #### 5 7021-8 ####CALE Roth ([id number])[facility] ([facility])[address] [place] [address] Immature granulocytes/100 WBC (Bld) 0.5 % Normal 0.0-0.9 [facility] Comment on above: Result Comment: Aleisha ture Granulocyte Count (IG) includes promyelocytes, myelocytes and metamyelocytes but does not include bands. Percent differential counts (%) should be interpreted in the context of the absolute cell counts (cells/UL). Performed By: #### 5 7021-8 ####CALE Roth ([id number])[facility] ([facility])[address]92 [place] [address] Lymphocytes (Bld) [#/Vol] 1.18 x10*3/uL Low 1.20-4.80 [facility] Comment on above: Performed By: #### 5 7021-8 ####CALE Roth ([id number])[facility] ([facility])[address]115 [place] [address] Lymphocytes/100 WBC (Bld) 11.7 % Normal 13.0-44.0 [facility] Comment on above: Performed By: #### 5 7021-8 ####CALE Roth ([id number])[facility] ([facility])[address]184 [place] [address] MCH (RBC) [Entitic mass] 30.0 pg Normal 26.0-34.0 [facility] Comment on above: Performed By: #### 5 7021-8 ####CALE Roth ([id number])[facility] ([facility])[address]778 [place] [address] MCHC (RBC) [Mass/Vol] 34.0 g/dL Normal 32.0-36.0 [facility] Comment on above: Performed By: #### 5 7021-8 ####CALE TOSCANOMOISAURA L ([id number])[facility] ([facility])[address]57 [place] [address] MCV (RBC) [Entitic vol] 88 fL Normal 80-100 [facility] Comment on above: Performed By: #### 5 7021-8 ####CALE Roth ([id number])[facility] ([facility])[address]47 [place] [address] Monocytes (Bld) [#/Vol] 0.73 x10*3/uL Normal 0.10-1.00 [facility] Comment on above: Performed By: #### 5 7021-8 ####CALE Roth ([id number])[facility] ([facility])[address]809 [place] [address] Monocytes/100 WBC (Bld) 7.2 % Normal 2.0-10.0 [facility] Comment on above: Performed By: #### 5 7021-8 ####CALE CAI L ([id number])[facility] ([facility])[address]659 [place] [address] Neutrophils (Bld) [#/Vol] 8.08 x10*3/uL High 1.20-7.70 [facility] Comment on above: Result Comment: Perc ent differential counts (%) should be interpreted in the context of the absolute cell counts (cells/uL). Performed By: #### 5 7021-8 ####CALE CAI L ([id number])[facility] ([facility])[address]478 [place] [address] Neutrophils/100 WBC (Bld) 80.3 % Normal 40.0-80.0 [facility] Comment on above: Performed By: #### 5 7021-8 ####CALE CAI L ([id number])[facility] ([facility])[address]211 [place] [address] Nucleated RBC/100 WBC (Bld) [Ratio] 0.0 /100 WBCs Normal 0.0-0.0 [facility] Comment on above: Performed By: #### 5 7021-8 ####CALE CAI L (22512)[facility] ([facility])[address]50 [place] [address] Platelets (Bld) [#/Vol] 164 x10*3/uL Normal 150-450 [facility] Comment on above: Performed By: #### 5 7021-8 ####CALE Roth ([id number])[facility] ([facility])[address]854 [place] [address] RBC (Bld) [#/Vol] 3.77 x10*6/uL Low 4.00-5.20 [facility] Comment on above: Performed By: #### 5 7021-8 ####CALE Roth ([id number])[facility] ([facility])[address]59 [place] [address] WBC (Bld) [#/Vol] 10.1 x10*3/uL Normal 4.4-11.3 [facility] Comment on above: Performed By: #### 5 7021-8 ####CALE Roth ([id number])[facility] ([facility])[address]35 [place] [address] CT ANGIO CHEST FOR PULMONARY EMBOLISMon 03-06-2025 CT ANGIO CHEST FOR PULMONARY EMBOLISM Normal [facility] CT HEAD WO IV CONTRASTon CT HEAD WO IV CONTRAST Normal [facility] Calcium.ionizedon 03-06-2025 Calcium.ionized (Bld) [Moles/Vol] 1.19 mmol/L Normal 1.1-1.33 [facility] Comment on above: Result Comment: The performance characteristics of ionized calcium testedin heparinized plasma or serum have [facility].Testing on heparinized plasma or serum is not approved bythe FDA; however, such approval is not necessary. Performed By: #### 1 994-3 ####CALE Roth ([id number])[facility] ([facility])[address]190 [place] [address] ECG 12-LEADon 03-06-2025 ECG 12-LEAD Ventricular Rate 95 Atrial Rate 95 P-R Interval 162 QRS Duration 80 Q-T Interval 352 QTC Calculation(Bazett) 442 P [place] 81 R [place] 91 T [place] 80 QRS Count 16 Q Onset 219 P Onset 138 P Offset 190 T Offset 395 QTC Fredericia 410 Diagnosis Normal sinus rhythm Rightward axis Borderline ECG When compared with ECG of 06-MAR-2025 05:43, No significant change was found Confirmed by Erasmo Peña ([id number]) on 03/10/2025 12:34:21 PM Normal [facility] Gas and Carbon monoxide and Electrolytes panel (BldA)on 03-06-2025 Anion gap 4 (BldA) [Moles/Vol] 10 mmo/L Normal 10-25 [facility] Comment on above: Performed By: #### 9 3685-6 ####CALE Roth ([id number])[facility] ([facility])[address]65 [place] [address] Base excess Calc (Bld) [Moles/Vol] -1.8000 mmol/L Normal -2.0-3.0 [facility] Comment on above: Performed By: #### 9 3685-6 ####CALE Roth ([id number])[facility] ([facility])[address]281 [place] [address] Calcium.ionized (BldA) [Moles/Vol] 1.14 mmol/L Normal 1.10-1.33 [facility] Comment on above: Performed By: #### 9 3685-6 ####CALE Roth ([id number])[facility] ([facility])[address]115 [place] [address] Chloride (BldA) [Moles/Vol] 115 mmol/L High 98-107 [facility] Comment on above: Performed By: #### 9 3685-6 ####CALE Roth ([id number])[facility] ([facility])[address]344 [place] [address] CO2 (Bld) [Partial pressure] 39 mm Hg Normal 38-42 [facility] Comment on above: Performed By: #### 9 3685-6 ####CALE Roth ([id number])[facility] ([facility])[address]365 [place] [address] Glucose [Mass/Vol] 113 mg/dL High 74-99 [facility] Comment on above: Performed By: #### 9 3685-6 ####CALE Roth ([id number])[facility] ([facility])[address]01 [place] [address] HCO3 (Bld) [Moles/Vol] 23.1 mmol/L Normal 22.0-26.0 [facility] Comment on above: Performed By: #### 9 3685-6 ####CALE Roth ([id number])[facility] ([facility])[address]162 [place] [address] Hematocrit Est (Bld) [Volume fraction] 33.0 % Low 36.0-46.0 [facility] Comment on above: Performed By: #### 9 3685-6 ####CALE Roth ([id number])[facility] ([facility])[address] [place] [address] Hemoglobin (Bld) [Mass/Vol] 10.9 g/dL Low 12.0-16.0 [facility] Comment on above: Performed By: #### 9 3685-6 ####CALE Roth ([id number])[facility] ([facility])[id number] [place] [address] Inhaled oxygen concentration 50 % Normal [facility] Comment on above: Performed By: #### 9 3685-6 ####CALE Roth ([id number])[facility] ([facility])[address] [place] [address] Lactate (BldA) [Moles/Vol] 0.5 mmol/L Normal 0.4-2.0 [facility] Comment on above: Performed By: #### 9 3685-6 ####CALE Roth ([id number])[facility] ([facility])[address]69 [place] [address] Oxygen (Bld) [Partial pressure] 119 mm Hg High 85-95 [facility] Comment on above: Performed By: #### 9 3685-6 ####CALE Roth ([id number])[facility] ([facility])[address] [place] [address] Oxyhemoglobin (BldA) [Mass fraction] 98.0 % Normal 94.0-98.0 [facility] Comment on above: Performed By: #### 9 3685-6 ####CALE Roth ([id number])[facility] ([facility])[id number] [place] [address] pH (Bld) 7.38 [pH] Normal 7.38-7.42 [facility] Comment on above: Performed By: #### 9 3685-6 ####CALE Roth ([id number])[facility] ([facility])[id number] [place] [address] Potassium (BldA) [Moles/Vol] 3.6 mmol/L Normal 3.5-5.3 [facility] Comment on above: Performed By: #### 9 1125-6 ####CALE Roth ([id number])[facility] ([facility])[address] [place] [id number] Sodium (BldA) [Moles/Vol] 144 mmol/L Normal 136-145 [facility] Comment on above: Performed By: #### 9 1425-6 ####CALE Roth ([id number])[facility] ([facility])[id number] [place] [address] Anion gap 4 (BldA) [Moles/Vol] 12 mmo/L Normal 10-25 [facility] Comment on above: Performed By: #### 9 3755-6 ####CALE Roth ([id number])[facility] ([facility])[id number] [place] [address] Base excess Calc (Bld) [Moles/Vol] -0.9000 mmol/L Normal -2.0-3.0 [facility] Comment on above: Performed By: #### 9 4087-6 ####CALE Roth ([id number])[facility] ([facility])[id number] [place] [address] Calcium.ionized (BldA) [Moles/Vol] 1.18 mmol/L Normal 1.10-1.33 [facility] Comment on above: Performed By: #### 9 3685-6 ####CALE Roth ([id number])[facility] ([facility])[id number] [place] [address] Chloride (BldA) [Moles/Vol] 114 mmol/L High 98-107 [facility] Comment on above: Performed By: #### 9 3685-6 ####CALE CAI L ([id number])[facility] ([facility])[address] [place] [address] CO2 (Bld) [Partial pressure] 37 mm Hg Low 38-42 [facility] Comment on above: Performed By: #### 9 3685-6 ####CALE Roth ([id number])[facility] ([facility])[id number] [place] [address] Glucose [Mass/Vol] 118 mg/dL High 74-99 [facility] Comment on above: Performed By: #### 9 2445-6 ####CALE Roth ([id number])[facility] ([facility])[address] [place] [address] HCO3 (Bld) [Moles/Vol] 23.5 mmol/L Normal 22.0-26.0 [facility] Comment on above: Performed By: #### 9 3685-6 ####CALE Roth ([id number])[facility] ([facility])[id number] [place] [address] Hematocrit Est (Bld) [Volume fraction] 35.0 % Low 36.0-46.0 [facility] Comment on above: Performed By: #### 9 3685-6 ####CALE CAI L ([id number])[facility] ([facility])[id number] [place] [address] Hemoglobin (Bld) [Mass/Vol] 11.7 g/dL Low 12.0-16.0 [facility] Comment on above: Performed By: #### 9 2085-6 ####CALE Roth ([id number])[facility] ([facility])[address] [place] [address] Inhaled oxygen concentration 30 % Normal [facility] Comment on above: Performed By: #### 9 3685-6 ####CALE Roth ([id number])[facility] ([facility])[address]873 [place] [address] Lactate (BldA) [Moles/Vol] 0.6 mmol/L Normal 0.4-2.0 [facility] Comment on above: Performed By: #### 9 3685-6 ####CALE Roth ([id number])[facility] ([facility])[address]39 [place] [address] Oxygen (Bld) [Partial pressure] 67 mm Hg Low 85-95 [facility] Comment on above: Performed By: #### 9 3685-6 ####CALE Roth ([id number])[facility] ([facility])[address] [place] [address] Oxyhemoglobin (BldA) [Mass fraction] 93.6 % Low 94.0-98.0 [facility] Comment on above: Performed By: #### 9 7095-6 ####CALE Roth ([id number])[facility] ([facility])[address] [place] [address] pH (Bld) 7.41 [pH] Normal 7.38-7.42 [facility] Comment on above: Performed By: #### 9 9125-6 ####CALE Roth ([id number])[facility] ([facility])[id number] [place] [address] Potassium (BldA) [Moles/Vol] 4.1 mmol/L Normal 3.5-5.3 [facility] Comment on above: Performed By: #### 9 2985-6 ####CALE Roth ([id number])[facility] ([facility])[address] [place] [address] Sodium (BldA) [Moles/Vol] 145 mmol/L Normal 136-145 [facility] Comment on above: Performed By: #### 9 3685-6 ####CALE Roth ([id number])[facility] ([facility])[address]657 [place] [address] Anion gap 4 (BldA) [Moles/Vol] 10 mmo/L Normal 10-25 [facility] Comment on above: Performed By: #### 9 3685-6 ####CALE CAI L ([id number])[facility] ([facility])[address]145 [place] [address] Base excess Calc (Bld) [Moles/Vol] -0.9000 mmol/L Normal -2.0-3.0 [facility] Comment on above: Performed By: #### 9 3685-6 ####CALE Roth ([id number])[facility] ([facility])[address]22 [place] [address] Calcium.ionized (BldA) [Moles/Vol] 1.16 mmol/L Normal 1.10-1.33 [facility] Comment on above: Performed By: #### 9 3685-6 ####CALE CAI L ([id number])[facility] ([facility])27963 [place] [address] Chloride (BldA) [Moles/Vol] 115 mmol/L High 98-107 [facility] Comment on above: Performed By: #### 9 3685-6 ####CALE CAI L ([id number])[facility] ([facility])[address]382 [place] [address] CO2 (Bld) [Partial pressure] 37 mm Hg Low 38-42 [facility] Comment on above: Performed By: #### 9 3685-6 ####CALE CAI L ([id number])[facility] ([facility])[address]161 [place] [address] Glucose [Mass/Vol] 117 mg/dL High 74-99 [facility] Comment on above: Performed By: #### 9 3685-6 ####CALE CAI L ([id number])[facility] ([facility])[address]86 [place] [address] HCO3 (Bld) [Moles/Vol] 23.5 mmol/L Normal 22.0-26.0 [facility] Comment on above: Performed By: #### 9 3685-6 ####CALE Roth ([id number])[facility] ([facility])[address] [place] [address] Hematocrit Est (Bld) [Volume fraction] 35.0 % Low 36.0-46.0 [facility] Comment on above: Performed By: #### 9 3685-6 ####CALE Roth ([id number])[facility] ([facility])[address] [place] [address] Hemoglobin (Bld) [Mass/Vol] 11.8 g/dL Low 12.0-16.0 [facility] Comment on above: Performed By: #### 9 3615-6 ####CALE Roth ([id number])[facility] ([facility])[address] [place] [address] Inhaled oxygen concentration 60 % Normal [facility] Comment on above: Performed By: #### 9 0685-6 ####CALE Roth ([id number])[facility] ([facility])[id number] [place] [address]60 Lactate (BldA) [Moles/Vol] 0.6 mmol/L Normal 0.4-2.0 [facility] Comment on above: Performed By: #### 9 3685-6 ####CALE Roth ([id number])[facility] ([facility])[address] [place] [address] 67036 Oxygen (Bld) [Partial pressure] 94 mm Hg Normal 85-95 [facility] Comment on above: Performed By: #### 9 3685-6 ####CALE Roth ([id number])[facility] ([facility])[address] [place] [address] 36924 Oxyhemoglobin (BldA) [Mass fraction] 96.6 % Normal 94.0-98.0 [facility] Comment on above: Performed By: #### 9 3685-6 ####CALE Roth ([id number])[facility] ([facility])[address] [place] [address] 66475 pH (Bld) 7.41 [pH] Normal 7.38-7.42 [facility] Comment on above: Performed By: #### 9 3685-6 ####CALE Roth ([id number])[facility] ([facility])[address] [place] [address] 77112 Potassium (BldA) [Moles/Vol] 3.9 mmol/L Normal 3.5-5.3 [facility] Comment on above: Performed By: #### 9 3685-6 ####CALE Roth ([id number])[facility] ([facility])[address] [place] [address] 48193 Sodium (BldA) [Moles/Vol] 145 mmol/L Normal 136-145 [facility] Comment on above: Performed By: #### 9 3685-6 ####CALE Roth ([id number])[facility] ([facility])[id number] [place] [address] 53653 Anion gap 4 (BldA) [Moles/Vol] 11 mmo/L Normal 10-25 [facility] Comment on above: Performed By: #### 9 3685-6 ####CALE Roth ([id number])[facility] ([facility])[id number] [place] [address] 31690 Base excess Calc (Bld) [Moles/Vol] -1.2000 mmol/L Normal -2.0-3.0 [facility] Comment on above: Performed By: #### 9 3685-6 ####CALE Roth ([id number])[facility] ([facility])[id number] [place] [address] 78987 Calcium.ionized (BldA) [Moles/Vol] 1.15 mmol/L Normal 1.10-1.33 [facility] Comment on above: Performed By: #### 9 3685-6 ####CALE Roth ([id number])[facility] ([facility])[address]011 [place] [address] Chloride (BldA) [Moles/Vol] 115 mmol/L High 98-107 [facility] Comment on above: Performed By: #### 9 3685-6 ####CALE CAI L ([id number])[facility] ([facility])[address]2761 [place] [address] CO2 (Bld) [Partial pressure] 34 mm Hg Low 38-42 [facility] Comment on above: Performed By: #### 9 3685-6 ####CALE Roth ([id number])[facility] ([facility])[address] [place] [address] 34492 Glucose [Mass/Vol] 117 mg/dL High 74-99 [facility] Comment on above: Performed By: #### 9 3685-6 ####CALE CAI L ([id number])[facility] ([facility])[id number] [place] [address] 65714 HCO3 (Bld) [Moles/Vol] 22.6 mmol/L Normal 22.0-26.0 [facility] Comment on above: Performed By: #### 9 3685-6 ####CALE CAI L ([id number])[facility] ([facility])[id number] [place] [address] 70232 Hematocrit Est (Bld) [Volume fraction] 36.0 % Normal 36.0-46.0 [facility] Comment on above: Performed By: #### 9 3685-6 ####CALE CAI L ([id number])[facility] ([facility])[address]113 [place] [address] Hemoglobin (Bld) [Mass/Vol] 11.9 g/dL Low 12.0-16.0 [facility] Comment on above: Performed By: #### 9 3685-6 ####CALE CAI L (13578)[facility] ([facility])[address] [place] [address] 28941 Inhaled oxygen concentration 50 % Normal [facility] Comment on above: Performed By: #### 9 3685-6 ####CALE Roth ([id number])[facility] ([facility])[address]01 [place] [address] Lactate (BldA) [Moles/Vol] 0.6 mmol/L Normal 0.4-2.0 [facility] Comment on above: Performed By: #### 9 3685-6 ####CALE Roth ([id number])[facility] ([facility])[id number] [place] [address] 48929 Oxygen (Bld) [Partial pressure] 72 mm Hg Low 85-95 [facility] Comment on above: Performed By: #### 9 3685-6 ####CALE Roth ([id number])[facility] ([facility])[address] [place] [address] 58133 Oxyhemoglobin (BldA) [Mass fraction] 94.7 % Normal 94.0-98.0 [facility] Comment on above: Performed By: #### 9 3685-6 ####CALE Roth ([id number])[facility] ([facility])[id number] [place] [address] 94144 pH (Bld) 7.43 [pH] High 7.38-7.42 [facility] Comment on above: Performed By: #### 9 3685-6 ####CALE Roth ([id number])[facility] ([facility])[address] [place] [address] 97159 Potassium (BldA) [Moles/Vol] 3.8 mmol/L Normal 3.5-5.3 [facility] Comment on above: Performed By: #### 9 3685-6 ####CALE Roth ([id number])[facility] ([facility])[id number] [place] [address] 94824 Sodium (BldA) [Moles/Vol] 145 mmol/L Normal 136-145 [facility] Comment on above: Performed By: #### 9 9795-6 ####CALE Roth ([id number])[facility] ([facility])[address]081 [facility] [place] [address] Glucose Test strip manual (B ld) [Mass/Vol]on 03-06-2025 Glucose [Mass/Vol] 97 mg/dL Normal 74-99 [facility] Comment on above: Performed By: #### 2 341-6 ####CALE Roth ([id number])[facility] ([facility])03268 [place] [address] Glucose [Mass/Vol] 91 mg/dL Normal 74-99 [facility] Comment on above: Performed By: #### 2 341-6 ####CALE Roth ([id number])[facility] ([facility])30893 [place] [address] Glucose [Mass/Vol] 98 mg/dL Normal 74-99 [facility] Comment on above: Performed By: #### 2 341-6 ####CALE Roth (94062)[facility] ([facility])[address]129 [place] [address] Glucose [Mass/Vol] 103 mg/dL High 74-99 [facility] Comment on above: Performed By: #### 2 341-6 ####CALE Roth ([id number])[facility] ([facility])[address]48 [facility] [place] [address] Glucose [Mass/Vol] 97 mg/dL Normal 74-99 [facility] Comment on above: Performed By: #### 2 341-6 ####CALE Roth ([id number])[facility] ([facility])06381 [place] [address] Glucose [Mass/Vol] 102 mg/dL High 74-99 [facility] Comment on above: Performed By: #### 2 341-6 ####CALE Roth ([id number])[facility] ([facility])[address]013 [facility] [place] [address] Magnesiumon 03-06-2025 Magnesium [Mass/Vol] 2.28 mg/dL Normal 1.60-2.40 [facility] Comment on above: Performed By: #### 1 9123-9 ####CALE Roth ([id number])[facility] ([facility])[address]263 [place] [address] Natriuretic peptide B [Mass/ Vol]on 03-06-2025 Natriuretic peptide B (Bld) [Mass/Vol] 56 pg/mL Normal 0-99 [facility] Comment on above: Order Comment: <100 pg/mL - Heart failure [id number] pg/mL - Intermediate probability of acute heart [...] Performed By: #### 3 0934-4 ####CALE Roth ([id number])[facility] ([facility])[address]71 [place] [address] Renal function 2000 panelon 03-06-2025 Albumin BCP dye [Mass/Vol] 4.1 g/dL Normal 3.4-5.0 [facility] Comment on above: Performed By: #### 2 4362-6 ####CALE Roth (47209)[facility] ([facility])[address]10 [place] [address] Anion gap [Moles/Vol] 11 mmol/L Normal 10-20 [facility] Comment on above: Performed By: #### 2 4362-6 ####CALE Roth ([id number])[facility] ([facility])[id number] [place] [address] 90970 Calcium [Mass/Vol] 9.0 mg/dL Normal 8.6-10.6 [facility] Comment on above: Performed By: #### 2 4362-6 ####CALE Roth (21653)[facility] ([facility])14530 [place] [address] Chloride [Moles/Vol] 114 mmol/L High 98-107 [facility] Comment on above: Performed By: #### 2 4362-6 ####CALE Roth ([id number])[facility] ([facility])[address]648 [place] [address] CO2 [Moles/Vol] 24 mmol/L Normal 21-32 [facility] Comment on above: Performed By: #### 2 4362-6 ####CALE Roth (54090)[facility] ([facility])74100 [place] [address] Creatinine [Mass/Vol] 0.47 mg/dL Low 0.50-1.05 [facility] Comment on above: Performed By: #### 2 4362-6 ####CALE Roth (76311)[facility] ([facility])12958 [place] [address] Glomerular filtration rate >90 Normal >60 [facility] Comment on above: Result Comment: Calc ulations of estimated GFR are performed using the 2020 CKD-EPI Study Refit equation without the race variable for the IDMS-Traceable creatinine methods.https://jasn.asnjournals.org/content//ASN .9885629425 Performed By: #### 2 4362-6 ####CALE Roth (04736)[facility] ([facility])10255 [place] [address] Glucose [Mass/Vol] 131 mg/dL High 74-99 [facility] Comment on above: Performed By: #### 2 4362-6 ####CALE Roth (41266)[facility] ([facility])[address]678 [place] [address] Phosphate [Mass/Vol] 1.8 mg/dL Low 2.5-4.9 [facility] Comment on above: Performed By: #### 2 4362-6 ####CALE Roth (81889)[facility] ([facility])[address]2002 [place] [address] Potassium [Moles/Vol] 3.3 mmol/L Low 3.5-5.3 [facility] Comment on above: Performed By: #### 2 4362-6 ####CALE Roth (15012)[facility] ([facility])[address]32 [place] [address] Urea nitrogen [Mass/Vol] 11 mg/dL Normal 6-23 [facility] Comment on above: Performed By: #### 2 4362-6 ####CALE Roth (66236)[facility] ([facility])19276 [place] [address] Sodiumon 03-06-2025 Sodium [Moles/Vol] 145 mmol/L Normal 136-145 [facility] Comment on above: Performed By: #### 2 951-2 ####CALE Roth (65481)[facility] ([facility])[address]64 [place] [address] Sodium [Moles/Vol] 144 mmol/L Normal 136-145 [facility] Comment on above: Performed By: #### 2 951-2 ####CALE Roth ([id number])[facility] ([facility])[address]73 [place] [address] Sodium [Moles/Vol] 146 mmol/L High 136-145 [facility] Comment on above: Performed By: #### 2 951-2 ####CALE Roth ([id number])[facility] ([facility])[address]388 [place] [address] Performed By: #### 2 4362-6 ####CALE CAI L ([id number])[facility] ([facility])[address]65 [place] [address] Triglycerideon 03-06-2025 Triglyceride [Mass/Vol] 114 mg/dL Normal 0-114 [facility] Comment on above: Order Comment: While [...] Performed By: #### 2 571-8 ####CALE Roth (83225)[facility] ([facility])[address]472 [place] [address] Troponin I.cardiac panelon 0 03-06-2025 Tropinin I.cardiac panel High sensitivity method <3 Normal 0-34 [facility] Comment on above: Order Comment: Less [...] is performed using a differenttesting methodology [facility] than at [facility]. Direct result comparisons should onlybe made within the same method. Performed By: #### 8 9577-1 ####CALE Roth ([id number])[facility] ([facility])[address]75 [place] [address] XR CHEST 1 VIEWon 03-06-2025 XR CHEST 1 VIEW Normal [facility] CBC W Auto Differential pane l (Bld)on 03-05-2025 Basophils (Bld) [#/Vol] 0.01 x10*3/uL Normal 0.00-0.10 [facility] Comment on above: Performed By: #### 5 7021-8 ####CALE Roth ([id number])[facility] ([facility])20428 [place] [address] Basophils/100 WBC (Bld) 0.1 % Normal 0.0-2.0 [facility] Comment on above: Performed By: #### 5 7021-8 ####CALE Roth ([id number])[facility] ([facility])[id number] [place] [address]10 Eosinophils (Bld) [#/Vol] 0.00 x10*3/uL Normal 0.00-0.70 [facility] Comment on above: Performed By: #### 5 7021-8 ####CALE Roth ([id number])[facility] ([facility])[address]219 [place] [address] Eosinophils/100 WBC (Bld) 0.0 % Normal 0.0-6.0 [facility] Comment on above: Performed By: #### 5 7021-8 ####CALE Roth ([id number])[facility] ([facility])29496 [place] [address] Erythrocyte distribution width (RBC) [Ratio] 11.9 % Normal 11.5-14.5 [facility] Comment on above: Performed By: #### 5 7021-8 ####CALE CAI L ([id number])[facility] ([facility])14854 [place] [address] Hematocrit (Bld) [Volume fraction] 36.5 % Normal 36.0-46.0 [facility] Comment on above: Performed By: #### 5 7021-8 ####CALE CAI L ([id number])[facility] ([facility])[address]58 [place] [address] Hemoglobin (Bld) [Mass/Vol] 12.4 g/dL Normal 12.0-16.0 [facility] Comment on above: Performed By: #### 5 7021-8 ####CALE Roth ([id number])[facility] ([facility])[address]857 [place] [address] Immature granulocytes (Bld) [#/Vol] 0.08 x10*3/uL Normal 0.00-0.70 [facility] Comment on above: Performed By: #### 5 7021-8 ####CALE Roth ([id number])[facility] ([facility])[address] [place] [address] Immature granulocytes/100 WBC (Bld) 0.6 % Normal 0.0-0.9 [facility] Comment on above: Result Comment: Aleisha ture Granulocyte Count (IG) includes promyelocytes, myelocytes and metamyelocytes but does not include bands. Percent differential counts (%) should be interpreted in the context of the absolute cell counts (cells/UL). Performed By: #### 5 7021-8 ####CALE Roth ([id number])[facility] ([facility])[address] [place] [address] Lymphocytes (Bld) [#/Vol] 0.63 x10*3/uL Low 1.20-4.80 [facility] Comment on above: Performed By: #### 5 7021-8 ####CALE Roth ([id number])[facility] ([facility])[address] [place] [address] Lymphocytes/100 WBC (Bld) 5.1 % Normal 13.0-44.0 [facility] Comment on above: Performed By: #### 5 7021-8 ####CALE Roth ([id number])[facility] ([facility])[address] [place] [address] MCH (RBC) [Entitic mass] 29.9 pg Normal 26.0-34.0 [facility] Comment on above: Performed By: #### 5 7021-8 ####CALE Roth ([id number])[facility] ([facility])[address] [place] [address] MCHC (RBC) [Mass/Vol] 34.0 g/dL Normal 32.0-36.0 [facility] Comment on above: Performed By: #### 5 7021-8 ####CALE Roth ([id number])[facility] ([facility])[address] [place] [address] MCV (RBC) [Entitic vol] 88 fL Normal 80-100 [facility] Comment on above: Performed By: #### 5 7021-8 ####CALE Roth ([id number])[facility] ([facility])[address] [place] [address] Monocytes (Bld) [#/Vol] 0.99 x10*3/uL Normal 0.10-1.00 [facility] Comment on above: Performed By: #### 5 7021-8 ####CALE Roth ([id number])[facility] ([facility])[address] [place] [address] Monocytes/100 WBC (Bld) 8.0 % Normal 2.0-10.0 [facility] Comment on above: Performed By: #### 5 7021-8 ####CALE Roth ([id number])[facility] ([facility])[address] [place] [address] Neutrophils (Bld) [#/Vol] 10.74 x10*3/uL High 1.20-7.70 [facility] Comment on above: Result Comment: Perc ent differential counts (%) should be interpreted in the context of the absolute cell counts (cells/uL). Performed By: #### 5 7021-8 ####CALE Roth ([id number])[facility] ([facility])[address] [place] [address] Neutrophils/100 WBC (Bld) 86.2 % Normal 40.0-80.0 [facility] Comment on above: Performed By: #### 5 7021-8 ####CALE Roth ([id number])[facility] ([facility])[address] [place] [address] Nucleated RBC/100 WBC (Bld) [Ratio] 0.0 /100 WBCs Normal 0.0-0.0 [facility] Comment on above: Performed By: #### 5 7021-8 ####CALE CAI L ([id number])[facility] ([facility])[id number] [place] [address]18 Platelets (Bld) [#/Vol] 173 x10*3/uL Normal 150-450 [facility] Comment on above: Performed By: #### 5 7021-8 ####CALE Roth ([id number])[facility] ([facility])[address] [place] [address]13 RBC (Bld) [#/Vol] 4.15 x10*6/uL Normal 4.00-5.20 [facility] Comment on above: Performed By: #### 5 7021-8 ####CALE Roth ([id number])[facility] ([facility])[id number] [place] [address]683 WBC (Bld) [#/Vol] 12.5 x10*3/uL High 4.4-11.3 [facility] Comment on above: Performed By: #### 5 7021-8 ####CALE Roth ([id number])[facility] ([facility])[id number] [place] [address] HEAD WO IV CONTRASTon CT HEAD WO IV CONTRAST Normal [facility] Calcium.ionizedon 03-05-2025 Calcium.ionized (Bld) [Moles/Vol] 1.12 mmol/L Normal 1.1-1.33 [facility] Comment on above: Result Comment: The performance characteristics of ionized calcium testedin heparinized plasma or serum have [facility].Testing on heparinized plasma or serum is not approved by[facility]; however, such approval is not necessary. Performed By: #### 1 994-3 ####CALE Roth ([id number])[facility] ([facility])[id number] [place] [address] ED MED ADMINISTRATION DETAIL on 03-05-2025 ED MED ADMINISTRATION DETAIL Home Builder - KIMANI COHEN : 2000, , Medication Administration Record [place] [address] [facility] [place] [address] [id number] 03/03/2025 Patient: KIMANI COHEN Sex: Female : 2000 Age: 24y MEASUREMENTS: [...] Langston R.N. 13:45 03/03/2025 (NOW x1) Prachi Langstno, 15:19 03/03 Medication Continued: upon transfer at [...] 13:51 Prachi Langston R.N. 13:50 03/03/2025 Prachi Kian, R.N. Scanned 1 of 2 Home Builder - KIMANI COHEN, : 2000, , Medication Ordered Medication Administration Date/Time DiphenhydrAMINE 13:51 03/03 DiphenhydrAMINE (Benadryl) IVP 25 mg given via Given (Benadryl) IVP 25 Site# 1. Medication Wastage: 25 mg wasted. - 13:54 Prachi 13:51 03/03/2025 mg (NOW x1) Michael Langston R.N. Scanned 2 of 2 Normal [facility] ED NURSES CLINICAL NOTEon ED NURSES CLINICAL NOTE Nurse Narrative - KIMANI COHEN, : 2000, , Nurse Clinical Narrative [address] [place] [address] [phone] 03/03/2025 13:11:00 Patient: KIMANI COHEN Sex: Female : 2000 Age: 24y Disposition: Transfer to [facility] Disposition Decision Time: 15:00 03/03/2025 Departure Time: 15:27 03/03/2025 TRIAGE Arrived by EMS. Historian: (patient). Primary physician (Patti Lopez). Triage time: 13:15 03/03/2025. Acuity: LEVEL 3. 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 SEPSIS SCREEN: NEGATIVE. SIRS criteria negative. No possible sources of infection. -- 13:03/03/25 EDT Vianca Burciaga R.N. 13:03/03/25. BP: 114/78 MAP: 90. HR: 108. RR: 12. O2 saturation: 99% Temperature: 98.5 F. Pain level now 03/03. -- 13:03/03/25 EDT Vianca Burciaga R.N. Measurements: 13:03/03/25 Wt: 49.9 kg, Ht/Miller: 65.0 in, BMI: 18.30 -- 13:03/03/25 HESHAM Burciaga R.N. Medications: no known home medications -- 13:03/03/25 HESHAM Burciaga R.N. 13:03/03/25. Preferred Pharmacy: ([facility] [place]). -- 13:03/03/25 HESHAM Burciaga R.N. 1 of 5 Nurse Elizabeth - KIMANI COHEN DOB: 2000, , Allergies: no known drug allergies [...] disease exposure. ABUSE ASSESSMENT: The patient answered yes to the question(s) Do you feel safe in your home? and no to the question(s) Are you afraid to go home?. SELF HARM ASSESSMENT: Self harm assessment was performed. The patient answered no to the question(s) Have you recently felt down, depressed, or hopeless? and Do you have thoughts of harming or killing yourself?. FALL RISK ASSESSMENT: Fall risk assessment completed. No risk factors identified. -- 13:03/03/25 HESHAM Burciaga R.N. Interventions 2 of 5 Nurse Elizabeth - KIMANI COHEN DOB: 2000, , 13:03/03/25. Advanced care plan discussed [...] request (14:10 03/03/2025). (Spoke with Mary from [facility]. Mary is speaking with Dr. Murphy.). -- 14:11 03/03/25 EDT [facility] 14:16 03/03/25. Transfer request (14:15 03/03/2025). (Dr. Murphy is speaki (more content not included)... Normal [facility] ED ORDER SHEET (CPOE ONLY)on 03-05-2025 ED ORDER SHEET (CPOE ONLY) Order Sheet - KIMANI COHEN, : 2000, , Order Sheet [address] [place] [address] [id number] 03/03/2025 Patient: KIMANI COHEN Sex: Female : 2000 Age: 24y MEASUREMENTS: Wt: 49.9 kg, Ht/Miller: 65.0 in, BMI: 18.30 ALLERGIES: No known drug allergies MEDICATION/IV/DRIP/FLUID ORDERS Order Description Priority Entered Acknowledged Completed IV NS 0.9 %1000 mL at 150 13:31 03/03/2025 13:41 13:46 mL/hr (NOW x1) James Murphy M.D. 03/03/2025 03/03/2025 Michael Stanton R.N. Zofran IVP4 mg (NOW x1) 13:31 03/03/2025 13:41 13:47 James Murphy M.D. 03/03/2025 03/03/2025 Michael Stanton R.N. Reglan IVP5 mg (NOW x1) 13:31 03/03/2025 13:41 13:51 James Murphy M.D. 03/03/2025 03/03/2025 Michael Stanton R.N. DiphenhydrAMINE (Benadryl) 13:31 03/03/2025 13:41 13:54 IVP25 mg (NOW x1) James Murphy M.D. 03/03/2025 03/03/2025 Michael Stanton R.N. 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 of K in NS. put in kride IVPB [id number] mEq at 50 mL/hr 15:54 EDT Prachi [...] Cont Stat Stat 13:31 03/03/2025 13:41 13:54 James Murphy M.D. 03/03/2025 03/03/2025 Prachi Velarde 2 of 3 Order Sheet - KIMANI COHEN, : 2000, , Michael Langston R.N. Reason for Study: Headache STAFF ORDERS Order Description Priority Entered Acknowledged Collected Completed [Electronically signed by James Murphy M.D. (03/03/2025 13:31 EDT)] [Electronically signed by James Murphy M.D. (03/03/2025 15:07 EDT)] [Electronically signed by James Murphy M.D. (03/05/2025 07:35 EDT)] 3 of 3 Normal [facility] ED PHYSICIAN CLINICAL REPORT on 03-05-2025 ED PHYSICIAN CLINICAL REPORT Narrative - KIMANI COHEN, : 2000, , Physician Clinical Narrative [address] [address] [id number] 03/03/2025 13:11:00 Patient: KIMANI COHEN Sex: Female : 2000 Age: 24y Disposition: Transfer to [facility] Disposition Decision Time: 15:00 03/03/2025 Departure Time: [...] Received 3 of 11 Narrative - KIMANI COHEN, : 2000, , Lab Test Result Reference [...] Below low normal EDT 4 of 11 Narrative - KIMANI COHEN, : 2000, , 51.6 % (more content not included)... Normal [facility] ED SUPER BILLon 03-05-2025 ED SUPER BILL KIMANI Rebolledo, : 2000, , [place] [address] [place] [address] [phone] 03/03/2025 Patient: KIMANI COHEN Sex: Female : 2000 Age: 24y Facility Professional Category Item Description Code Code Quantity Fee Total Drugs Normal Saline 526837 1 $0.00 $0.00 1000cc (021523) Nurse/E/M EMERGENCY 028868 1 $0.00 $0.00 DEPT VISIT HIGH SEVERITYFUNCJ (16934-35) Nurse/IV/IM/Infusions Hydration 039920 2 $0.00 $0.00 additional hour (46506) Nurse/IV/IM/Infusions IVP additional 930435 2 $0.00 $0.00 push (28002) Nurse/IV/IM/Infusions IVP initial (88521) 958757 1 $0.00 $0.00 Grand $0.00 Total Providers James Murphy M.D. Chief Complaint 1 of 2 KIMANI Rebolledo, : 2000, , HEADACHE and MIGRAINE HEADACHE. 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 ICD-10 Codes I60.9: Nontraumatic subarachnoid hemorrhage, unspecified 2 of 2 Normal [facility] ED VISIT SUMMARYon ED VISIT SUMMARY Visit Overview - KIMANI MOSELEY : 2000, , Visit Overview [facility] [address] 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 John) ALLERGIES No Known Drug Allergies HOME MEDICATIONS None PAST MEDICAL HISTORY / PROBLEMS LNMP: (3 weeks ago) Migraine Headache See nurses notes 1 of 3 Visit Overview - KIMANI COHEN, : 2000, , PAST SURGICAL HISTORY No [...] 2 of 3 Visit Overview - KIMANI COHEN, : 2000, , First Vitals Last Vitals [...] A CEREBRAL AVM 3 of 3 Normal [facility] ED VITALS FLOW SHEETon 03-05 ED VITALS FLOW SHEET Vitals - MIKE COHEN, : 2000, , Vital Sign Flow Sheet [address] [place] [address] [id number] 03/03/2025 Patient: KIMANI COHEN Sex: Female : 2000 Age: 24y Measurements [...] 100% 1 of 2 Vitals - KIMANI COHEN, : 2000, , Measured Time BP MAP HR RR O2Sat ETCO2 Temp Pain GCS RTS 14:13 03/03/2025 22 13:22 03/03/2025 114/78 90 108 12 99% 98.5 F 9 13:20 03/03/2025 15 2 of 2 Normal [facility] Glucose Test strip manual (B ld) [Mass/Vol]on 03-05-2025 Glucose [Mass/Vol] 120 mg/dL High [address] [place] [address] Comment on above: Performed By: #### 2 341-6 ####CALE Roth ([id number])[facility] ([facility])[id number] [place] [address] Glucose [Mass/Vol] 125 mg/dL High [address] [place] [address] Comment on above: Performed By: #### 2 341-6 ####CALE Roth ([id number])[facility] ([facility])[address] [place] [address]14 Glucose [Mass/Vol] 150 mg/dL High [address] [place] [address] Comment on above: Performed By: #### 2 341-6 ####CALE Roth ([id number])[facility] ([facility])[address] [place] [address]70 Glucose [Mass/Vol] 148 mg/dL High [address] [place] [address] Comment on above: Performed By: #### 2 341-6 ####CALE Roth ([id number])[facility] ([facility])[address] [place] [address] Glucose [Mass/Vol] 136 mg/dL High 74-99 [facility] Comment on above: Performed By: #### 2 341-6 ####CALE Roth ([id number])[facility] ([facility])[address] [place] [address] Glucose [Mass/Vol] 161 mg/dL High 74-99 [facility] Comment on above: Performed By: #### 2 341-6 ####CALE Roth ([id number])[facility] ([facility])[address] [place] [address] Glucose [Mass/Vol] 162 mg/dL High 74-99 [facility] Comment on above: Performed By: #### 2 341-6 ####CALE Roth ([id number])[facility] ([facility])[address] [place] [address] Magnesiumon 03-05-2025 Magnesium [Mass/Vol] 1.86 mg/dL Normal 1.60-2.40 [facility] Comment on above: Performed By: #### 1 9123-9 ####CALE Roth ([id number])[facility] ([facility])[address] [place] [address] Renal function 2000 panelon 03-05-2025 Albumin BCP dye [Mass/Vol] 4.2 g/dL Normal 3.4-5.0 [facility] Comment on above: Performed By: #### 2 4362-6 ####CALE Roth ([id number])[facility] ([facility])[address] [place] [address] Anion gap [Moles/Vol] 12 mmol/L Normal 10-20 [facility] Comment on above: Performed By: #### 2 4362-6 ####CALE Roth ([id number])[facility] ([facility])[address]80 [place] [address] Calcium [Mass/Vol] 9.3 mg/dL Normal 8.6-10.6 [facility] Comment on above: Performed By: #### 2 4362-6 ####CALE CAI L ([id number])[facility] ([facility])[address] [place] [address] Chloride [Moles/Vol] 108 mmol/L High 98-107 [facility] Comment on above: Performed By: #### 2 4362-6 ####CALE CAI L ([id number])[facility] ([facility])[address] [place] [address] CO2 [Moles/Vol] 24 mmol/L Normal 21-32 [facility] Comment on above: Performed By: #### 2 4362-6 ####CALE Roth ([id number])[facility] ([facility])[address] [place] [address] Creatinine [Mass/Vol] 0.43 mg/dL Low 0.50-1.05 [facility] Comment on above: Performed By: #### 2 4362-6 ####CALE CAI L ([id number])[facility] ([facility])[address]55 [place] [address] Glomerular filtration rate >90 Normal >60 [facility] Comment on above: Result Comment: Calc ulations of estimated GFR are performed using the 2020 CKD-EPI Study Refit equation without the race variable for the IDMS-Traceable creatinine methods.https://jasn.asnjournals.org/content/early/ASN .3302041055 Performed By: #### 2 4362-6 ####CALE TOSCANOMOTZER L ([id number])[facility] ([facility])[address]69 [place] [address] Glucose [Mass/Vol] 163 mg/dL High 74-99 [facility] Comment on above: Performed By: #### 2 4362-6 ####CALE PARKERTZER L ([id number])[facility] ([facility])[address]163 [place] [address] Phosphate [Mass/Vol] 3.0 mg/dL Normal 2.5-4.9 [facility] Comment on above: Performed By: #### 2 4362-6 ####CALE Roth ([id number])[facility] ([facility])[address]310 [place] [address] Potassium [Moles/Vol] 3.2 mmol/L Low 3.5-5.3 [facility] Comment on above: Performed By: #### 2 4362-6 ####CALE Roth ([id number])[facility] ([facility])[address]60 [place] [address] Sodium [Moles/Vol] 141 mmol/L Normal 136-145 [facility] Comment on above: Performed By: #### 2 4362-6 ####CALE Roth ([id number])[facility] ([facility])[address]169 [place] [address] Urea nitrogen [Mass/Vol] 8 mg/dL Normal 6-23 [facility] Comment on above: Performed By: #### 2 4362-6 ####CALE Roth ([id number])[facility] ([facility])[address]063 [place] [address] Albumin BCP dye [Mass/Vol] 4.1 g/dL Normal 3.4-5.0 [facility] Comment on above: Performed By: #### 2 4362-6 ####CALE Roth ([id number])[facility] ([facility])[address]493 [place] [address] Anion gap [Moles/Vol] 14 mmol/L Normal 10-20 [facility] Comment on above: Performed By: #### 2 4362-6 ####CALE Roth ([id number])[facility] ([facility])[address]12 [place] [address] Calcium [Mass/Vol] 8.4 mg/dL Low 8.6-10.6 [facility] Comment on above: Performed By: #### 2 4362-6 ####CALE Roth ([id number])[facility] ([facility])[address]674 [place] [address] Chloride [Moles/Vol] 109 mmol/L High 98-107 [facility] Comment on above: Performed By: #### 2 4362-6 ####CALE CAI L ([id number])[facility] ([facility])[address]95 [place] [address] CO2 [Moles/Vol] 22 mmol/L Normal 21-32 [facility] Comment on above: Performed By: #### 2 4362-6 ####CALE Roth ([id number])[facility] ([facility])[address]20 [place] [address] Creatinine [Mass/Vol] 0.52 mg/dL Normal 0.50-1.05 [facility] Comment on above: Performed By: #### 2 4362-6 ####CALE Roth ([id number])[facility] ([facility])[address]156 [place] [address] Glomerular filtration rate >90 Normal >60 [facility] Comment on above: Result Comment: Calc ulations of estimated GFR are performed using the 2020 CKD-EPI Study Refit equation without the race variable for the IDMS-Traceable creatinine methods.https://jasn.asnjournals.org/content//ASN .4057508021 Performed By: #### 2 4362-6 ####CALE Roth ([id number])[facility] ([facility])[address]67 [place] [address] Glucose [Mass/Vol] 201 mg/dL High 74-99 [facility] Comment on above: Performed By: #### 2 4362-6 ####CALE Roth ([id number])[facility] ([facility])[address]391 [place] [address] Phosphate [Mass/Vol] 3.2 mg/dL Normal 2.5-4.9 [facility] Comment on above: Performed By: #### 2 4362-6 ####CALE Roth ([id number])[facility] ([facility])[address]285 [place] [address] Potassium [Moles/Vol] 3.2 mmol/L Low 3.5-5.3 [facility] Comment on above: Performed By: #### 2 4362-6 ####CALE Roth ([id number])[facility] ([facility])[address] [place] [address] Urea nitrogen [Mass/Vol] 8 mg/dL Normal 6-23 [facility] Comment on above: Performed By: #### 2 4362-6 ####CALE Roth ([id number])[facility] ([facility])[address] [place] [address] Sodiumon 03-05-2025 Sodium [Moles/Vol] 148 mmol/L High 136-145 [facility] Comment on above: Performed By: #### 2 951-2 ####CALE Roth ([id number])[facility] ([facility])[id number] [place] [address] Sodium [Moles/Vol] 143 mmol/L Normal 136-145 [facility] Comment on above: Performed By: #### 2 951-2 ####CALE Roth ([id number])[facility] ([facility])[address] [place] [address] Sodium [Moles/Vol] 142 mmol/L Normal 136-145 [facility] Comment on above: Performed By: #### 2 951-2 ####CALE Roth ([id number])[facility] ([facility])[address] [place] [address] Performed By: #### 2 4362-6 ####CALE Roth ([id number])[facility] ([facility])[address]14 [place] [address] Specific gravity Auto test s trip (U) [Rel density]on 03-05-2025 Specific gravity (U) [Rel density] 1.019 Normal 1.005-1.035 [facility] Comment on above: Performed By: #### 5 3326-5 ####CALE Roth ([id number])[facility] ([facility])[address] [place] [id number] Triglycerideon 03-05-2025 Triglyceride [Mass/Vol] 62 mg/dL Normal 0-114 [facility] Comment on above: Order Comment: While [...] Performed By: #### 2 571-8 ####CALE Roth ([id number])[facility] ([facility])[address] [place], [place] [id number] CT HEAD WO IV CONTRASTon CT HEAD WO IV CONTRAST Normal [facility] ECG 12-LEADon 03-04-2025 ECG 12-LEAD Ventricular Rate 80 Atrial Rate 80 P-R Interval 166 QRS Duration 82 Q-T Interval 390 QTC Calculation(Bazett) 449 P [place] 83 R [place] 92 T [place] 90 QRS Count 14 Q Onset 219 P Onset 136 P Offset 182 T Offset 414 QTC Fredericia 429 Diagnosis Normal sinus rhythm Rightward axis Nonspecific ST abnormality Abnormal ECG No previous ECGs available See ED provider note for full interpretation and clinical correlation Confirmed by Sharon Russell ([id number]) on 03/04/2025 1:01:43 AM Normal [facility] Gas and Carbon monoxide and Electrolytes panel (BldA)on 03-04-2025 Anion gap 4 (BldA) [Moles/Vol] 13 mmo/L Normal 10-25 [facility] Comment on above: Performed By: #### 9 3685-6 ####CALE Roth ([id number])[facility] ([facility])[address]655 [place] [address] Base excess Calc (Bld) [Moles/Vol] -3.9000 mmol/L Low -2.0-3.0 [facility] Comment on above: Performed By: #### 9 3685-6 ####CALE Roth ([id number])[facility] ([facility])[address]38 [place] [address] Calcium.ionized (BldA) [Moles/Vol] 1.05 mmol/L Low 1.10-1.33 [facility] Comment on above: Performed By: #### 9 3685-6 ####CALE Roth ([id number])[facility] ([facility])[address] [place] [address] Chloride (BldA) [Moles/Vol] 108 mmol/L High 98-107 [facility] Comment on above: Performed By: #### 9 3685-6 ####CALE Roth ([id number])[facility] ([facility])[address]15 [place] [address] CO2 (Bld) [Partial pressure] 31 mm Hg Low 38-42 [facility] Comment on above: Performed By: #### 9 3685-6 ####CALE Roth ([id number])[facility] ([facility])[address]367 [place] [address] Glucose [Mass/Vol] 176 mg/dL High 74-99 [facility] Comment on above: Performed By: #### 9 3685-6 ####CALE Roht ([id number])[facility] ([facility])[address]992 [place] [address] HCO3 (Bld) [Moles/Vol] 19.6 mmol/L Low 22.0-26.0 [facility] Comment on above: Performed By: #### 9 3685-6 ####CALE Roth ([id number])[facility] ([facility])[address] [place] [address] Hematocrit Est (Bld) [Volume fraction] 44.0 % Normal 36.0-46.0 [facility] Comment on above: Performed By: #### 9 5145-6 ####CALE Roth ([id number])[facility] ([facility])[id number] [place] [address] [id number] Hemoglobin (Bld) [Mass/Vol] 14.5 g/dL Normal 12.0-16.0 [facility] Comment on above: Performed By: #### 9 3685-6 ####CALE Roth ([id number])[facility] ([facility])[address] [place] [address] [id number] Inhaled oxygen concentration 44 % Normal [facility] Comment on above: Performed By: #### 9 5985-6 ####CALE Roth ([id number])[facility] ([facility])[id number] [place] [address] 98435 Lactate (BldA) [Moles/Vol] 2.1 mmol/L High 0.4-2.0 [facility] Comment on above: Performed By: #### 9 3685-6 ####CALE Roth ([id number])[facility] ([facility])[id number] [place] [address] 88044 Oxygen (Bld) [Partial pressure] 220 mm Hg High 85-95 [facility] Comment on above: Performed By: #### 9 3685-6 ####CALE Roth ([id number])[facility] [facility] ([facility])[id number] [place] [address] 51247 Oxyhemoglobin (BldA) [Mass fraction] 98.0 % Normal 94.0-98.0 [facility] Comment on above: Performed By: #### 9 5255-6 ####CALE Roth ([id number])[facility] ([facility])[id number] [place] [address] 34057 pH (Bld) 7.41 [pH] Normal 7.38-7.42 [facility] Comment on above: Performed By: #### 9 3685-6 ####CALE Roth ([id number])[facility] ([facility])[id number] [place] [address] 79101 Potassium (BldA) [Moles/Vol] 3.0 mmol/L Low 3.5-5.3 [facility] Comment on above: Performed By: #### 9 3685-6 ####CALE Roth ([id number])[facility] ([facility])[address] [place] [address] 61123 Sodium (BldA) [Moles/Vol] 138 mmol/L Normal 136-145 [facility] Comment on above: Performed By: #### 9 3685-6 ####CALE Roth ([id number])[facility] ([facility])[address] [place] [address] 73743 Gas panel (BldA)on 5 Base excess Calc (Bld) [Moles/Vol] -5.0000 mmol/L Low -2.0-3.0 [facility] Comment on above: Performed By: #### 2 4336-0 ####CALE Roth ([id number])[facility] ([facility])[address] [place] [address] 84065 CO2 (Bld) [Partial pressure] 30 mm Hg Low 38-42 [facility] Comment on above: Performed By: #### 2 4336-0 ####CALE Roth ([id number])[facility] ([facility])[address] [place] [address] 58810 HCO3 (Bld) [Moles/Vol] 18.6 mmol/L Low 22.0-26.0 [facility] Comment on above: Performed By: #### 2 4336-0 ####CALE Roth ([id number])[facility] ([facility])[id number] [place] [address] 74540 Inhaled oxygen concentration 45 % Normal [facility] Comment on above: Performed By: #### 2 4336-0 ####CALE Roth ([id number])[facility] ([facility])[address] [place] [address] 95740 Oxygen (Bld) [Partial pressure] 210 mm Hg High 85-95 [facility] Comment on above: Performed By: #### 2 4336-0 ####CALE Roth ([id number])[facility] ([facility])[id number] [place] [address] 32955 Oxyhemoglobin (BldA) [Mass fraction] 97.3 % Normal 94.0-98.0 [facility] Comment on above: Performed By: #### 2 4336-0 ####CALE Roth ([id number])[facility] ([facility])[id number] [place] [address] 76092 pH (Bld) 7.40 [pH] Normal 7.38-7.42 [facility] Comment on above: Performed By: #### 2 4336-0 ####CALE Roth ([id number])[facility] ([facility])[id number] [place] [address] 18294 Glucose Test strip manual (B ld) [Mass/Vol]on 03-04-2025 Glucose [Mass/Vol] 162 mg/dL High [address] [place] [address] Comment on above: Performed By: #### 2 341-6 ####CALE Roth ([id number])[facility] ([facility])[address] [place] [address] 63186 Glucose [Mass/Vol] 158 mg/dL High [address] Comment on above: Performed By: #### 2 341-6 ####CALE Roth ([id number])[facility] ([facility])[id number] [place] [address] 87530 Glucose [Mass/Vol] 132 mg/dL High [address] [place] [address] Comment on above: Performed By: #### 2 341-6 ####CALE Roth ([id number])[facility] ([facility])[address] [place] [address] IR ANGIOGRAM CEREBRAL BILATE RALon 03-04-2025 IR ANGIOGRAM CEREBRAL BILATERAL Normal [facility] IR INTERVENTION NEURO EMBOLI ZATIONon 03-04-2025 IR INTERVENTION NEURO EMBOLIZATION Normal [facility] Renal function 2000 panelon 03-04-2025 Albumin BCP dye [Mass/Vol] 4.4 g/dL Normal 3.4-5.0 [facility] Comment on above: Performed By: #### 2 4362-6 ####CALE Roth ([id number])[facility] ([facility])[address] [place] [address] Anion gap [Moles/Vol] 10 mmol/L Normal 10-20 [facility] Comment on above: Performed By: #### 2 4362-6 ####CALE Roth ([id number])[facility] ([facility])[address] [place] [address] Calcium [Mass/Vol] 8.7 mg/dL Normal 8.6-10.6 [facility] Comment on above: Performed By: #### 2 4362-6 ####CALE Roth ([id number])[facility] ([facility])[address] [place] [address] Chloride [Moles/Vol] 116 mmol/L High 98-107 [facility] Comment on above: Performed By: #### 2 4362-6 ####CALE Roth ([id number])[facility] ([facility])[address] [place] [address] CO2 [Moles/Vol] 23 mmol/L Normal 21-32 [facility] Comment on above: Performed By: #### 2 4362-6 ####CALE Roth ([id number])[facility] ([facility])[address] [facility] [place] [address] Creatinine [Mass/Vol] 0.49 mg/dL Low 0.50-1.05 [facility] Comment on above: Performed By: #### 2 4362-6 ####CALE Roth ([id number])[facility] [facility] ([facility])[address] [place] [address] Glomerular filtration rate >90 Normal >60 [facility] Comment on above: Result Comment: Calc ulations of estimated GFR are performed using the 2020 CKD-EPI Study Refit equation without the race variable for the IDMS-Traceable creatinine methods.https://jasn.asnjournals.org/content/early//ASN .7694011737 Performed By: #### 2 4362-6 ####CALE Roth ([id number])[facility] ([facility])[address] [place] [address] Glucose [Mass/Vol] 149 mg/dL High 74-99 [facility] Comment on above: Performed By: #### 2 4362-6 ####CALE CAI L ([id number])[facility] ([facility])[address] [place] [address] Phosphate [Mass/Vol] 1.1 mg/dL Low 2.5-4.9 [facility] Comment on above: Performed By: #### 2 4362-6 ####CALE CAI L ([id number])[facility] ([facility])[address]52 [place] [address] Potassium [Moles/Vol] 3.0 mmol/L Low 3.5-5.3 [facility] Comment on above: Performed By: #### 2 4362-6 ####CALE CAI L ([id number])[facility] ([facility])[address] [place] [address] Urea nitrogen [Mass/Vol] 6 mg/dL Normal 6-23 [facility] Comment on above: Performed By: #### 2 4362-6 ####CALE CAI L ([id number])[facility] ([facility])[address]485 [place] [address] Albumin BCP dye [Mass/Vol] 4.2 g/dL Normal 3.4-5.0 [facility] Comment on above: Performed By: #### 2 4362-6 ####CALE CAI L ([id number])[facility] ([facility])[address]65 [place] [address] Anion gap [Moles/Vol] 13 mmol/L Normal 10-20 [facility] Comment on above: Performed By: #### 2 4362-6 ####CALE CAI L ([id number])[facility] ([facility])[address] [place] [address] Calcium [Mass/Vol] 8.3 mg/dL Low 8.6-10.6 [facility] Comment on above: Performed By: #### 2 4362-6 ####CALE CAI L ([id number])[facility] ([facility])[address] [place] [address] Chloride [Moles/Vol] 111 mmol/L High 98-107 [facility] Comment on above: Performed By: #### 2 4362-6 ####CALE CAI L ([id number])[facility] ([facility])[address]65 [place] [address] CO2 [Moles/Vol] 21 mmol/L Normal 21-32 [facility] Comment on above: Performed By: #### 2 4362-6 ####CALE CAI L ([id number])[facility] ([facility])[address] [place] [address] Creatinine [Mass/Vol] 0.56 mg/dL Normal 0.50-1.05 [facility] Comment on above: Performed By: #### 2 4362-6 ####CALE CAI L ([id number])[facility] ([facility])[address]350 [place] [address] Glomerular filtration rate >90 Normal >60 [facility] Comment on above: Result Comment: Calc ulations of estimated GFR are performed using the 2020 CKD-EPI Study Refit equation without the race variable for the IDMS-Traceable creatinine methods.https://jasn.asnjournals.org/content//ASN .0554018025 Performed By: #### 2 4362-6 ####CALE Roth ([id number])[facility] ([facility])[address]019 [place] [address] Glucose [Mass/Vol] 162 mg/dL High 74-99 [facility] Comment on above: Performed By: #### 2 4362-6 ####CALE Roth ([id number])[facility] ([facility])[address]407 [place] [address] Phosphate [Mass/Vol] 1.2 mg/dL Low 2.5-4.9 [facility] Comment on above: Performed By: #### 2 4362-6 ####CALE Roth ([id number])[facility] ([facility])[address] [place] [address] Potassium [Moles/Vol] 3.2 mmol/L Low 3.5-5.3 [facility] Comment on above: Performed By: #### 2 4362-6 ####CALE Roth ([id number])[facility] ([facility])[address]23 [place] [address] Sodium [Moles/Vol] 142 mmol/L Normal 136-145 [facility] Comment on above: Performed By: #### 2 4362-6 ####CALE Roth ([id number])[facility] ([facility])[address]647 [place] [address] Urea nitrogen [Mass/Vol] 6 mg/dL Normal 6-23 [facility] Comment on above: Performed By: #### 2 4362-6 ####CALE Roth (47774)[facility] ([facility])[address]25 [place] [address] Sodiumon 03-04-2025 Sodium [Moles/Vol] 144 mmol/L Normal 136-145 [facility] Comment on above: Performed By: #### 2 951-2 ####CALE Roth ([id number])[facility] ([facility])[address]75 [place] [address] Sodium [Moles/Vol] 146 mmol/L High 136-145 [facility] Comment on above: Performed By: #### 2 951-2 ####CALE Roth ([id number])[facility] ([facility])[address] [place] [address]378 Performed By: #### 2 4362-6 ####CALE Roth ([id number])[facility] ([facility])[id number] [place] [address] 91512 XR ABDOMEN 1 VIEWon 03-04-20 25 XR ABDOMEN 1 VIEW Normal [facility] XR CHEST 1 VIEWon 03-04-2025 XR CHEST 1 VIEW Normal [facility] Blood type and Indirect anti body screen panel (Bld)on 03-03-2025 ABO group Nom (Bld) B Normal [facility] Comment on above: Performed By: #### 3 4532-2 ####CALE Roth ([id number])[facility] ([facility])[address] [place] [address] Blood group antibody screen Ql Negative [facility] Comment on above: Performed By: #### 3 4532-2 ####CALE Roth ([id number])[facility] ([facility])[address]188 [place] [address] D Ag Ql (Bld) Positive [facility] Comment on above: Performed By: #### 3 4532-2 ####CALE Roth ([id number])[facility] ([facility])[address]164 [place] [address] C-REACTIVE PROTEINon 025 CRP [Mass/Vol] mg/L Normal 0.00 - 0.90 [facility] Comment on above: Performed By: #### 2 77703 #### [facility],[address] [place] [address] CBC + DIFFon 03-03-2025 ATY LYMP 0 % Normal [facility] Comment on above: Performed By: #### 2 40596 #### [facility],[address] [place] [address] BANDS 0 % Normal 0 - 5 [facility] Comment on above: Performed By: #### 2 42258 #### [facility],[address] [place] [address] Baso # 0.04 x10EE3/UL Normal 0.00 - 0.10 [facility] Comment on above: Performed By: #### 2 92228 #### [facility],[address] [place] [address] Basophils/100 WBC (Bld) 0.4 % Normal 0.0 - 2.0 [facility] Comment on above: Performed By: #### 2 78273 #### [facility],[address] [place] [address] Basophils/100 WBC (Bld) 0.0 % Normal 0.0 - 2.0 [facility] Comment on above: Performed By: #### 2 97859 #### [facility],[address] [place] [address] CBC + DIFF Normal [facility] Comment on above: Result Comment: CBC- COMPLETE BLOOD COUNT Performed By: #### 2 54528 #### [facility],[address] [place] [address] CELL COUNT 100 Normal [facility] Comment on above: Performed By: #### 2 51094 #### [facility],[address] [place] [address] EO 0.0 % Normal 0.0 - 7.0 [facility] Comment on above: Performed By: #### 2 83243 #### [facility],[address] [place] [address] EO # 0.06 x10EE3/UL Normal 0.00 - 0.50 [facility] Comment on above: Performed By: #### 2 07926 #### [facility],[address] [place] [address] 51380 Eosinophils/100 WBC (Bld) 0.7 % Normal 0.0 - 7.0 [facility] Comment on above: Performed By: #### 2 44729 #### [facility],[address] [place] [address] 86340 Erythrocyte distribution width (RBC) [Ratio] 13.1 % Normal 12.0 - 15.6 [facility] Comment on above: Performed By: #### 2 92237 #### [facility],[address] [place] [address] 56702 Hematocrit (Bld) [Volume fraction] 44.5 % Normal 34.0 - 46.0 [facility] Comment on above: Performed By: #### 2 34917 #### [facility],[address] [place] [address] 69099 Hemoglobin (Bld) [Mass/Vol] 15.2 g/dL Normal 12.0 - 16.0 [facility] Comment on above: Performed By: #### 2 18268 #### [facility],[address] [place] [address] 78362 Lymph # 4.41 x10EE3/UL High 0.80 - 2.80 [facility] Comment on above: Performed By: #### 2 62462 #### [facility],[address] [place] [address] 33372 Lymphocytes/100 WBC (Bld) 51.6 % High 20.0 - 45.0 [facility] Comment on above: Performed By: #### 2 22747 #### [facility],[address] [place] [address] 07874 Lymphocytes/100 WBC (Bld) 57 % High 20 - 45 [facility] Comment on above: Performed By: #### 2 71977 #### [facility],[address] [place] [address] MANUAL DIFF SEE BELOW Normal [facility] Comment on above: Performed By: #### 2 71869 #### [facility],[address] [place] [address] MCH (RBC) [Entitic mass] 29 pg Normal 27 - 33 [facility] Comment on above: Performed By: #### 2 85801 #### [facility],[address] [place] [address] MCHC 34 X10 3 Normal 32 - 36 [facility] Comment on above: Performed By: #### 2 73711 #### [facility],[address] [place] [address] MCV (RBC) [Entitic vol] 86 fL Normal 80 - 99 [facility] Comment on above: Performed By: #### 2 84480 #### [facility],[address] [place] [address] META 0 % Normal 0 - 1 [facility] Comment on above: Performed By: #### 2 99092 #### [facility],[address] [place] [address] Metamyelocytes/100 WBC (Bld) 0 % Normal [facility] Comment on above: Performed By: #### 2 48339 #### [facility],[address] [place] [address] [place] # 0.60 x10EE3/UL Normal 0.20 - 1.00 [facility] Comment on above: Performed By: #### 2 49696 #### [facility],[address] [place] [address] MONOS 7 % Normal 0 - 10 [facility] Comment on above: Performed By: #### 2 31664 #### [facility],[address] [place] [address] MONOS % 7.1 % Normal 0.0 - 10.0 [facility] Comment on above: Performed By: #### 2 53247 #### [facility],[address] [place] [address] 41448 Morphology Ibrahima (Bld) [Interp] REVIEWED Normal [facility] Comment on above: Performed By: #### 2 43725 #### [facility],[address] [place] [address] 36572 Neut # 3.43 x10EE3/UL Normal 1.50 - 7.10 [facility] Comment on above: Performed By: #### 2 99579 #### [facility],[address] [place] [address] 54191 Neutrophils/100 WBC (Bld) 40.2 % Low 46.0 - 76.0 [facility] Comment on above: Performed By: #### 2 68115 #### [facility],[address] [place] [address] 73221 NRBC 0 /100 Normal [facility] Comment on above: Performed By: #### 2 36643 #### [facility],[address] [place] [address] 21458 PLATELET 255 x10EE3/UL Normal 150 - 450 [facility] Comment on above: Performed By: #### 2 34585 #### [facility],[address] [place] [address] 32021 Platelet mean volume (Bld) [Entitic vol] 8.7 fL Normal 6.6 - 10.5 [facility] Comment on above: Result Comment: AUTO MATED DIFFERENTIAL Performed By: #### 2 11482 #### [facility],[address] [place] [address] 23063 RBC 5.20 x 10EE6/UL Normal 4.10 - 5.30 [facility] Comment on above: Performed By: #### 2 31500 #### [facility],[address] [place] [address] 66722 SEGS 36 % Low 46 - 76 [facility] Comment on above: Performed By: #### 2 29426 #### [facility],[address] [place] [address] 84223 WBC 8.6 x 10EE3/UL Normal 4.5 - 10.8 [facility] Comment on above: Performed By: #### 2 07306 #### [facility],[address] [place] [address] 17630 OTHER 0 Normal [facility] Comment on above: Performed By: #### 2 54123 #### [facility],[address] [place] [address] 41853 CBC W Auto Differential pane l (Bld)on 03-03-2025 Basophils (Bld) [#/Vol] 0.01 x10*3/uL Normal 0.00-0.10 [facility] Comment on above: Performed By: #### 5 7021-8 ####CALE Roth ([id number])[facility] ([facility])[address] [place] [address] Basophils/100 WBC (Bld) 0.1 % Normal 0.0-2.0 [facility] Comment on above: Performed By: #### 5 7021-8 ####CALE Roth ([id number])[facility] ([facility])[address]249 [place] [address] Eosinophils (Bld) [#/Vol] 0.02 x10*3/uL Normal 0.00-0.70 [facility] Comment on above: Performed By: #### 5 7021-8 ####CALE Roth ([id number])[facility] ([facility])[address]31 [place] [address] Eosinophils/100 WBC (Bld) 0.2 % Normal 0.0-6.0 [facility] Comment on above: Performed By: #### 5 7021-8 ####CALE Roth ([id number])[facility] ([facility])[address]78 [place] [address] Erythrocyte distribution width (RBC) [Ratio] 11.5 % Normal 11.5-14.5 [facility] Comment on above: Performed By: #### 5 7021-8 ####CALE PARKERTZER L ([id number])[facility] ([facility])[id number] [place] [address] 37083 Hematocrit (Bld) [Volume fraction] 39.2 % Normal 36.0-46.0 [facility] Comment on above: Performed By: #### 5 7021-8 ####CALE TOSCANOMOTZER L ([id number])[facility] ([facility])[id number] [place] [address] 74443 Hemoglobin (Bld) [Mass/Vol] 13.8 g/dL Normal 12.0-16.0 [facility] Comment on above: Performed By: #### 5 7021-8 ####CALE PARKERTZGONZALEZ L ([id number])[facility] ([facility])[address] [place] [address] 00446 Immature granulocytes (Bld) [#/Vol] 0.04 x10*3/uL Normal 0.00-0.70 [facility] Comment on above: Performed By: #### 5 7021-8 ####CALE RUTLEDGEER L ([id number])[facility] ([facility])[address] [place] [address] 51644 Immature granulocytes/100 WBC (Bld) 0.4 % Normal 0.0-0.9 [facility] Comment on above: Result Comment: Aleisha ture Granulocyte Count (IG) includes promyelocytes, myelocytes and metamyelocytes but does not include bands. Percent differential counts (%) should be interpreted in the context of the absolute cell counts (cells/UL). Performed By: #### 5 7021-8 ####CALE TOSCANOMOTZER L ([id number])[facility] ([facility])[address] [place] [address] 23093 Lymphocytes (Bld) [#/Vol] 0.98 x10*3/uL Low 1.20-4.80 [facility] Comment on above: Performed By: #### 5 7021-8 ####CALE TOSCANOMOTZER L ([id number])[facility] ([facility])[address] [place] [address] Lymphocytes/100 WBC (Bld) 9.0 % Normal 13.0-44.0 [facility] Comment on above: Performed By: #### 5 7021-8 ####CALE Roth ([id number])[facility] ([facility])[address] [place] [address] MCH (RBC) [Entitic mass] 29.9 pg Normal 26.0-34.0 [facility] Comment on above: Performed By: #### 5 7021-8 ####CALE Roth ([id number])[facility] ([facility])[address]23 [place] [address] MCHC (RBC) [Mass/Vol] 35.2 g/dL Normal 32.0-36.0 [facility] Comment on above: Performed By: #### 5 7021-8 ####CALE Roth ([id number])[facility] ([facility])[id number] [place] [address] 98700 MCV (RBC) [Entitic vol] 85 fL Normal 80-100 [facility] Comment on above: Performed By: #### 5 7021-8 ####CALE Roth ([id number])[facility] ([facility])[id number] [place] [place] [address] 42119 Monocytes (Bld) [#/Vol] 0.84 x10*3/uL Normal 0.10-1.00 [facility] Comment on above: Performed By: #### 5 7021-8 ####CALE Roth ([id number])[facility] ([facility])[id number] [place] [address] 33012 Monocytes/100 WBC (Bld) 7.7 % Normal 2.0-10.0 [facility] Comment on above: Performed By: #### 5 7021-8 ####CALE Roth ([id number])[facility] ([facility])[address] [place] [address] 10328 Neutrophils (Bld) [#/Vol] 9.01 x10*3/uL High 1.20-7.70 [facility] Comment on above: Result Comment: Perc ent differential counts (%) should be interpreted in the context of the absolute cell counts (cells/uL). Performed By: #### 5 7021-8 ####CALE Roth ([id number])[facility] ([facility])[address] [place] [address] Neutrophils/100 WBC (Bld) 82.6 % Normal 40.0-80.0 [facility] Comment on above: Performed By: #### 5 7021-8 ####CALE Roth ([id number])[facility] ([facility])[address] [place] [address] Nucleated RBC/100 WBC (Bld) [Ratio] 0.0 /100 WBCs Normal 0.0-0.0 [facility] Comment on above: Performed By: #### 5 7021-8 ####CALE Roth ([id number])[facility] ([facility])[address]26 [place] [address] Platelets (Bld) [#/Vol] 146 x10*3/uL Low 150-450 [facility] Comment on above: Performed By: #### 5 7021-8 ####CALE Roth ([id number])[facility] ([facility])[address]133 [place] [address] RBC (Bld) [#/Vol] 4.62 x10*6/uL Normal 4.00-5.20 [facility] Comment on above: Performed By: #### 5 7021-8 ####CALE Roth ([id number])[facility] ([facility])[address] [place] [address] WBC (Bld) [#/Vol] 10.9 x10*3/uL Normal 4.4-11.3 [facility] Comment on above: Performed By: #### 5 7021-8 ####CALE Roth ([id number])[facility] ([facility])[address] [place] [address] CMP with eGFRon 03-03-2025 AGE 24 years Normal [facility] Comment on above: Performed By: #### 2 35299 ####[facility],[address] [place] [address] 33748 Albumin [Mass/Vol] 4.4 g/dL Normal 3.4 - 5.0 [facility] Comment on above: Performed By: #### 2 55877 ####[facility],[address] [place] [address] 83497 Albumin/Globulin [Mass ratio] 1.3 {ratio} Normal 0.9 - 1.6 [facility] Comment on above: Performed By: #### 2 23493 ####[facility],[address] [place] [address] 86080 ALK PHOS 56 U/L Normal 46 - 116 [facility] Comment on above: Performed By: #### 2 21862 ####[facility],[address] [place] [address] 15670 ALT [Catalytic activity/Vol] 24 U/L Normal 16 - 63 [facility] Comment on above: Performed By: #### 2 60994 ####[facility],[address] [place] [address] 59058 Anion gap [Moles/Vol] 14 mmol/L Normal 10 - 20 [facility] Comment on above: Performed By: #### 2 09771 ####[facility],[address] [place] [address] 99936 AST [Catalytic activity/Vol] 17 U/L Normal 13 - 39 [facility] Comment on above: Performed By: #### 2 79159 ####[facility],[address] [place] [address] 40416 B/C RATIO 16 ratio Normal 0 - 30 [facility] Comment on above: Performed By: #### 2 98710 ####[facility],[address] [place] [address] 70856 Bilirubin [Mass/Vol] 0.4 mg/dL Normal 0.2 - 1.0 [facility] Comment on above: Performed By: #### 2 36549 ####[facility],[address] [place] [address] 78633 Calcium [Mass/Vol] 9.0 mg/dL Normal 8.5 - 10.1 [facility] Comment on above: Performed By: #### 2 55769 ####[facility],[address] [place] [address] 81931 Chloride [Moles/Vol] 102 mmol/L Normal 98 - 107 [facility] Comment on above: Performed By: #### 2 44105 ####[facility],[address] [place] [address] 10799 CMP with eGFR Normal [facility] Comment on above: Result Comment: COMP REHENSIVE METABOLIC PANEL Performed By: #### 2 22675 ####[facility],[address] [place] [address] 61129 CO2 [Moles/Vol] 27.7 mmol/L Normal 21.0 - 32.0 [facility] Comment on above: Performed By: #### 2 26365 ####[facility],[address] [place] [address] 67404 Creatinine [Mass/Vol] 0.87 mg/dL Normal 0.55 - 1.02 [facility] Comment on above: Performed By: #### 2 49876 ####[facility],[address] [place] [address] 88018 GFR/1.73 sq M.predicted among non-blacks MDRD (S/P/Bld) [Vol rate/Area] mL/min/{1.73_m2} Normal 60 - 999 [facility] Comment on above: Performed By: #### 2 59634 ####[facility],[address] [place] [address] 11300 Result Comment: ACCO RDING TO THE NATIONAL KIDNEY DISEASE EDUCATION PROGRAM(NKDE), A NORMAL eGFR IS A VALUE GREATER THAN OR EQUAL TO 60 ML/MIN/1.73 SQ METERS. CHRONIC KIDNEY DISEASE: <60mL/MIN/1.73 SQ METERS KIDNEY FAILURE: <15mL/MIN/1.73 SQ METERS THIS TEST SHOULD ONLY BE USED FOR PATIENTS 18 YEARS OF AGE AND OLDER. Globulin (S) [Mass/Vol] 3.5 g/dL Normal 1.5 - 3.8 [facility] Comment on above: Performed By: #### 2 53950 ####[facility],[address] [place] [address] 27944 Glucose [Mass/Vol] 121 mg/dL High 74 - 106 [facility] Comment on above: Performed By: #### 2 70991 ####[facility],[address] [place] [address] 09289 Potassium [Moles/Vol] 2.7 mmol/L Critically low 3.5 - 5.1 [facility] Comment on above: Result Comment: { CA LLED TO FABIO YODER BY [facility] @ 1422 { READ BACK BY FABIO YODER RA 1420 Performed By: #### 2 52580 ####[facility],[address] [place] [address] 64415 Protein [Mass/Vol] 7.9 g/dL Normal 6.4 - 8.2 [facility] Comment on above: Performed By: #### 2 07274 ####[facility],[address] [place] [address] 31514 Sodium [Moles/Vol] 141 mmol/L Normal 136 - 145 [facility] Comment on above: Performed By: #### 2 76220 ####[facility],[address] [place] [address] 15991 Urea nitrogen [Mass/Vol] 14 mg/dL Normal 7 - 18 [facility] Comment on above: Performed By: #### 2 47784 ####[facility],[address] [place] [address] ANGIO HEAD AND NECK W AND WO IV CONTRASTon 03-03-2025 CT ANGIO HEAD AND NECK W AND WO IV CONTRAST Normal [facility] CT BRAIN W/O CONTRASTon 02-22 CT BRAIN W/O CONTRAST [address] [address] Patient: KIMANI COHEN Phone#: : [phone] Age: 24 Gender: F Pt. Type: ER Account: [id number] Location: 052 Ordering: DR. JAMES MURPHY Exam Date: 03/03/2025/13:58 Family Phys: Charge Code: 045503 Physician: [place] Order #: [id number] Dose#: 57.50 mGy PROCEDURE: CT BRAIN WITHOUT [...] Bentley MD on 03/03/2025 at 14:23 Normal [facility] Choriogonadotropin.beta subu niton 03-03-2025 HCG.beta subunit Qn m[IU]/mL Normal <5 [facility] Comment on above: Order Comment: Total HCG measurement is performed using the Siemens Atellica immunoassay which detects intact HCG and free beta HCG subunit. This test is not indicated for use as a tumor marker. HCG testing is performed using a different test methodology at [facility] than other [facility]. Direct result comparison should only be made within the same method. Performed By: #### 2 1198-7 ####CALE Roth ([id number])[facility] ([facility])[address] [place], [place] [address] Comprehensive metabolic 2000 panelon 03-03-2025 Albumin BCP dye [Mass/Vol] 4.7 g/dL Normal 3.4-5.0 [facility] Comment on above: Performed By: #### 2 4323-8 ####CALE Roth ([id number])[facility] ([facility])[address] [place], [place] [address] Performed By: #### 2 4362-6 ####CALE Roth ([id number])[facility] ([facility])[address] [place] [address] 28343 ALP [Catalytic activity/Vol] 40 U/L Normal 33-110 [facility] Comment on above: Performed By: #### 2 4323-8 ####CALE Roth ([id number])[facility] ([facility])[address] [place] [address] 65264 ALT With P-5'-P [Catalytic activity/Vol] 13 U/L Normal 7-45 [facility] Comment on above: Result Comment: Rehana ents treated with Sulfasalazine may generate falsely decreased results for ALT. Performed By: #### 2 4323-8 ####CALE Roth ([id number])[facility] ([facility])[address]39 [place] [address] Anion gap [Moles/Vol] 16 mmol/L Normal 10-20 [facility] Comment on above: Performed By: #### 2 4323-8 ####CALE Roth ([id number])[facility] ([facility])[address] [place] [address] 92879 Performed By: #### 2 4362-6 ####CALE Roth ([id number])[facility] ([facility])[address]45 [facility] [place] [address] AST With P-5'-P [Catalytic activity/Vol] 20 U/L Normal 9-39 [facility] Comment on above: Performed By: #### 2 4323-8 ####CALE Roth ([id number])[facility] ([facility])[address]842 [place] [address] Bilirubin [Mass/Vol] 0.8 mg/dL Normal 0.0-1.2 [facility] Comment on above: Performed By: #### 2 4323-8 ####CALE Roth ([id number])[facility] ([facility])[address]10 [place] [address] Calcium [Mass/Vol] 9.1 mg/dL Normal 8.6-10.6 [facility] Comment on above: Performed By: #### 2 4323-8 ####CALE Roth ([id number])[facility] ([facility])[address]64 [facility] [place] [address] Performed By: #### 2 4362-6 ####CALE Roth ([id number])[facility] ([facility])[address] [facility] [place] [address] Chloride [Moles/Vol] 105 mmol/L Normal 98-107 [facility] Comment on above: Performed By: #### 2 4323-8 ####CALE Roth ([id number])[facility] ([facility])[address] [facility] [place] [address] Performed By: #### 2 4362-6 ####CALE Roth ([id number])[facility] ([facility])[address]28 [facility] [place] [address] CO2 [Moles/Vol] 22 mmol/L Normal 21-32 [facility] Comment on above: Performed By: #### 2 4323-8 ####CALE Roth ([id number])[facility] ([facility])[address]17 [place] [address] Performed By: #### 2 4362-6 ####CALE RUTLEDGEER L ([id number])[facility] ([facility])[address]002 [place] [address] Creatinine [Mass/Vol] 0.62 mg/dL Normal 0.50-1.05 [facility] Comment on above: Performed By: #### 2 4323-8 ####CALE RUTLEDGEER L ([id number])[facility] ([facility])[address] [place] [address] 42024 Performed By: #### 2 4362-6 ####CALE CAI L ([id number])[facility] ([facility])[address] [place] [address] 57097 Glomerular filtration rate >90 Normal >60 [facility] Comment on above: Result Comment: Calc ulations of estimated GFR are performed using the 2020 CKD-EPI Study Refit equation without the race variable for the IDMS-Traceable creatinine methods.https://jasn.asnjournals.org/content/early//ASN .1398078202 Performed By: #### 2 4323-8 ####CALE RUTLEDGEER L ([id number])[facility] ([facility])[address] [place] [address] 60445 Performed By: #### 2 4362-6 ####CALE RUTLEDGEER L ([id number])[facility] ([facility])[address] [place] [address] 07724 Glucose [Mass/Vol] 149 mg/dL High 74-99 [facility] Comment on above: Performed By: #### 2 4323-8 ####CALE PARKERTZER L ([id number])[facility] ([facility])[address] [place] [address] 06701 Performed By: #### 2 4362-6 ####CALE RUTLEDGEER L ([id number])[facility] ([facility])[address]339 [place] [address] Potassium [Moles/Vol] 3.6 mmol/L Normal 3.5-5.3 [facility] Comment on above: Performed By: #### 2 4323-8 ####CALE Roth ([id number])[facility] ([facility])[address] [place] [address] 72628 Performed By: #### 2 4362-6 ####CALE Roth ([id number])[facility] ([facility])[address] [place] [address] 63277 Protein [Mass/Vol] 7.1 g/dL Normal 6.4-8.2 [facility] Comment on above: Performed By: #### 2 4323-8 ####CALE Roth ([id number])[facility] ([facility])[address] [place] [address] 26760 Sodium [Moles/Vol] 139 mmol/L Normal 136-145 [facility] Comment on above: Performed By: #### 2 4323-8 ####CALE Roth ([id number])[facility] ([facility])[address] [place] [address] 47845 Performed By: #### 2 4362-6 ####CALE Roth ([id number])[facility] ([facility])[address] [place] [address] 98645 Urea nitrogen [Mass/Vol] 11 mg/dL Normal 6-23 [facility] Comment on above: Performed By: #### 2 4323-8 ####CALE Roth ([id number])[facility] ([facility])[address] [place] [address] 79115 Performed By: #### 2 4362-6 ####CALE Roth ([id number])[facility] ([facility])[address] [place] [address] 18562 Gas panel (BldV)on 5 Anion gap 4 (BldV) [Moles/Vol] 15.0 mmol/L Normal 10.0-25.0 [facility] Comment on above: Performed By: #### 2 4339-4 ####CALE Roth ([id number])[facility] ([facility])[address]95 [place] [address] Base excess Calc (BldV) [Moles/Vol] -2.3000 mmol/L Low -2.0-3.0 [facility] Comment on above: Performed By: #### 2 4339-4 ####CALE Roth ([id number])[facility] ([facility])[address]327 [place] [address] Calcium.ionized (BldV) [Moles/Vol] 1.16 mmol/L Normal 1.10-1.33 [facility] Comment on above: Performed By: #### 2 4339-4 ####CALE Roth ([id number])[facility] ([facility])[address] [place] [address] 90995 Chloride (BldV) [Moles/Vol] 103 mmol/L Normal 98-107 [facility] Comment on above: Performed By: #### 2 4339-4 ####CALE Roth ([id number])[facility] ([facility])[address]269 [place] [address] CO2 (BldV) [Partial pressure] 47 mm Hg Normal 41-51 [facility] Comment on above: Performed By: #### 2 4339-4 ####CALE Roth ([id number])[facility] ([facility])[address]70 [place] [address] Glucose [Mass/Vol] 155 mg/dL High 74-99 [facility] Comment on above: Performed By: #### 2 4339-4 ####CALE Roth ([id number])[facility] ([facility])[address]11 [place] [address] HCO3 (Bld) [Moles/Vol] 24.2 mmol/L Normal 22.0-26.0 [facility] Comment on above: Performed By: #### 2 4339-4 ####CALE Roth ([id number])[facility] ([facility])[address]22 [place] [address] Hematocrit Est (Bld) [Volume fraction] 42.0 % Normal 36.0-46.0 [facility] Comment on above: Performed By: #### 2 4339-4 ####CALE Roth ([id number])[facility] ([facility])[address]46 [place] [address] Hemoglobin (Bld) [Mass/Vol] 14.1 g/dL Normal 12.0-16.0 [facility] Comment on above: Performed By: #### 2 4339-4 ####CALE Roth ([id number])[facility] ([facility])[address] [place] [address] 21609 Lactate (BldV) [Moles/Vol] 2.4 mmol/L High 0.4-2.0 [facility] Comment on above: Performed By: #### 2 4339-4 ####CALE Roth ([id number])[facility] ([facility])[address] [place] [address] 10728 Oxygen (BldV) [Partial pressure] 42 mm Hg Normal 35-45 [facility] Comment on above: Performed By: #### 2 4339-4 ####CALE Roth ([id number])[facility] ([facility])[address] [place] [address] 19564 Oxygen saturation in Venous blood 69 % Normal 45-75 [facility] Comment on above: Performed By: #### 2 4339-4 ####CALE Roth ([id number])[facility] ([facility])[address] [place] [address] 62739 Oxyhemoglobin (BldV) [Mass fraction] 67.2 % Normal 45.0-75.0 [facility] Comment on above: Performed By: #### 2 4339-4 ####CALE Roth ([id number])[facility] ([facility])[address]014 [place] [address] pH (BldV) 7.32 [pH] Low 7.33-7.43 [facility] Comment on above: Performed By: #### 2 4339-4 ####CALE Roth ([id number])[facility] ([facility])[address]60 [place] [address] Potassium (BldV) [Moles/Vol] 3.9 mmol/L Normal 3.5-5.3 [facility] Comment on above: Performed By: #### 2 4339-4 ####CALE Roth ([id number])[facility] ([facility])[address]66 [place] [address] Sodium (BldV) [Moles/Vol] 138 mmol/L Normal 136-145 [facility] Comment on above: Performed By: #### 2 4339-4 ####CALE Roth ([id number])[facility] ([facility])[address]804 [place] [address] PROTHROMBIN TIME AND INRon 0 03-03-2025 INR Coag (PPP) [Relative time] 1.1 {INR} Normal 0.8 - 1.2 [facility] Comment on above: Result Comment: T [...] [facility] Performed By: #### 2 84926 #### [facility],[address] [place] [address] 54626 PROTHROMBIN TIME AND INR Normal [facility] Comment on above: Result Comment: PROT HROMBIN TIME AND INR Performed By: #### 2 06646 #### [address] [address] PT-COUMADIN 12.6 sec Normal 9.3 - 14.1 [facility] Comment on above: Performed By: #### 2 17193 #### [facility],[address] [place] [address] 56322 PT and aPTT panel Coag (PPP) on 03-03-2025 aPTT Coag (PPP) [Time] 20 s Low 26-36 [facility] Comment on above: Order Comment: The A PTT is no longer used for monitoring Unfractionated Heparin Therapy. For monitoring Heparin Therapy, use the Heparin Assay. Performed By: #### 3 4529-8 ####CALE Roth ([id number])[facility] ([facility])[address] [place] [address] 77075 INR Coag (PPP) [Relative time] 1.2 High 0.9-1.1 [facility] Comment on above: Order Comment: The A PTT is no longer used for monitoring Unfractionated Heparin Therapy. For monitoring Heparin Therapy, use the Heparin Assay. Performed By: #### 3 4529-8 ####CALE Roth ([id number])[facility] ([facility])[address] [place] [address] 23419 PT Coag (PPP) [Time] 12.8 s High 9.8-12.4 [facility] Comment on above: Order Comment: The A PTT is no longer used for monitoring Unfractionated Heparin Therapy. For monitoring Heparin Therapy, use the Heparin Assay. Performed By: #### 3 4529-8 ####CALE Roth ([id number])[facility] ([facility])[id number] [place] [address] 55825 Renal function 2000 panelon 03-03-2025 Phosphate [Mass/Vol] 2.9 mg/dL Normal 2.5-4.9 [facility] Comment on above: Performed By: #### 2 4362-6 ####CALE Roth ([id number])[facility] ([facility])[address] [place] [address] 28128 SEDRATEon 03-03-2025 SEDRATE 2 mm/hr Normal 0 - 30 [facility] Comment on above: Performed By: #### 2 06197 #### [facility],[address] [place] [address] 17816 Urinalysis complete W Reflex Culture panel (U)on 03-03-2025 Appearance (U) Clear Normal Clear [facility] Comment on above: Performed By: #### 5 8077-9 ####CALE Roth ([id number])[facility] ([facility])[address]771 [place] [address] Bilirubin (U) [Mass/Vol] Negative Normal NEGATIVE [facility] Comment on above: Performed By: #### 5 8077-9 ####CALE CAI L ([id number])[facility] ([facility])[address]852 [place] [address] Color (U) Light-Yellow Normal Light-Yello w, Yellow, Dark-Yellow [facility] Comment on above: Performed By: #### 5 8077-9 ####CALE Roth ([id number])[facility] ([facility])[id number] [place] [address] 99311 Glucose Auto test strip (U) [Mass/Vol] 50 (TRACE) Abnormal Normal [facility] Comment on above: Performed By: #### 5 8077-9 ####CALE TOSCANOMOISAURA L ([id number])[facility] ([facility])[address] [place] [address] Ketones (U) [Mass/Vol] 10 (1+) Abnormal NEGATIVE [facility] Comment on above: Performed By: #### 5 8077-9 ####CALE CAI L ([id number])[facility] ([facility])[address] [place] [address] Leukocyte esterase Auto test strip Ql (U) Negative Normal NEGATIVE [facility] Comment on above: Performed By: #### 5 8077-9 ####CALE CAI L ([id number])[facility] ([facility])[address] [place] [address] Nitrite Auto test strip Ql (U) Negative Normal NEGATIVE [facility] Comment on above: Performed By: #### 5 8077-9 ####CALE CAI L ([id number])[facility] ([facility])[address] [place] [address] pH (U) 7.0 [pH] Normal 5.0, 5.5, 6.0, 6.5, 7.0, 7.5, 8.0 [facility] Comment on above: Performed By: #### 5 8077-9 ####CALE Roth ([id number])[facility] ([facility])[address] [place] [address] Protein (U) [Mass/Vol] Negative Normal NEGATIVE, 10 (TRACE), 20 (TRACE) [facility] Comment on above: Performed By: #### 5 8077-9 ####CALE RUTLEDGEER L ([id number])[facility] ([facility])[address] [place] [address] RBC (U) [#/Vol] Negative Normal NEGATIVE [facility] Comment on above: Performed By: #### 5 8077-9 ####CALE Roth ([id number])[facility] ([facility])[id number] [place] [address] Specific gravity (U) [Rel density] 1.040 Normal 1.005-1.035 [facility] Comment on above: Performed By: #### 5 8077-9 ####CALE CAI L ([id number])[facility] ([facility])[address] [place] [address] Urobilinogen (U) [Mass/Vol] Normal Normal Normal [facility] Comment on above: Performed By: #### 5 8077-9 ####CALE CAI L ([id number])[facility] ([facility])[address] [place] [address] VERAB/VERIFY ABORHon 025 ABO group Nom (Bld) B Normal [facility] Comment on above: Order Comment: Thi s is for confirming/verifying history of ABORh on file for transfusion of blood products. If this is not for transfusion, please order an ABO/RH [[id number]]. If you have any questions or unsure what to order, please call the blood bank. Performed By: #### V ERAB ####CALE Roth ([id number])[facility] ([facility])[address] [place] [address] D Ag Ql (Bld) Positive Normal [facility] Comment on above: Order Comment: Thi s is for confirming/verifying history of ABORh on file for transfusion of blood products. If this is not for transfusion, please order an ABO/RH [[id number]]. If you have any questions or unsure what to order, please call the blood bank. Performed By: #### V ERAB ####CALE Roth ([id number])[facility] ([facility])[address] [place] [address] XR ABDOMEN 1 VIEWon 03-03-20 XR ABDOMEN 1 VIEW Normal [facility] XR CHEST 1 VIEWon 03-03-2025 XR CHEST 1 VIEW Normal [facility] Vital Signs Date Time Vital Sign Value Performing Clinician Facility 04-26-2025 15:48-0500 Body temperature 97.5 [degF] Luis Angel Saini MD Work Phone: [facility] 04-26-2025 15:48-0500 Diastolic blood pressure 75 mm[Hg] Luis Angel Saini MD Work Phone: [facility] 04-26-2025 15:48-0500 Heart rate 102 /min Luis Angel Saini MD Work Phone: [facility] 04-26-2025 15:48-0500 Respiratory rate 17 /min Luis Angel Saini MD Work Phone: [facility] 04-26-2025 15:48-0500 SaO2% (BldA) [Mass fraction] 97 % Luis Angel Saini MD Work Phone: [facility] 04-26-2025 15:48-0500 Systolic blood pressure 108 mm[Hg] Luis Angel Saini MD Work Phone: [facility] 04-21-2025 13:43-0400 Body height 160 cm Luis Angel Saini MD Work Phone: [facility] 04-21-2025 13:43-0400 Body mass index (BMI) [Ratio] 17.19 kg/m2 Luis Angel Saini MD Work Phone: [facility] 04-21-2025 13:43-0400 Body weight 44 kg Luis Angel Saini MD Work Phone: [facility] 04-21-2025 13:39-0400 Body temperature 37.0 Luis Angel Saini MD Work Phone: [facility] Comment on above: NOTE: Patient Results are Not Corrected for Temperature 04-21-2025 13:36-0400 Body temperature 37.0 degrees Celsius [facility] Comment on above: Result Comment: NOTE: Patient Results ar e Not Corrected for Temperature Performed By: #### 2 4339-4 ####CALE Roth ([id number])[facility] ([facility])[id number] [place] [address] 03-25-2025 21:20-0400 Body temperature [facility] Comment on above: Result Comment: NOTE: Patient Results ar e Not Corrected for Temperature Performed By: #### 9 3685-6 ####CALE Roth ([id number])[facility] ([facility])[address] [place] [address] 03-25-2025 21:20-0400 SaO2% (BldA) [Mass fraction] 100 % [facility] Comment on above: Performed By: #### 72689-4 ####CALE Roth ([id number])[facility] ([facility])[address] [place] [address] 03-22-2025 14:45-0400 Body temperature 37.0 degrees Celsius [facility] Comment on above: Result Comment: NOTE: Patient Results ar e Not Corrected for Temperature Performed By: #### 9 3685-6 ####CALE CAI L ([id number])[facility] ([facility])[address] [place] [address] 03-22-2025 14:45-0400 SaO2% (BldA) [Mass fraction] 100 % [facility] Comment on above: Performed By: #### 52477-2 ####CALE RUTLEDGEER L ([id number])[facility] ([facility])[address] [place], [place] [address] 03-18-2025 03:12-0400 Body temperature [facility] Comment on above: Result Comment: NOTE: Patient Results ar e Not Corrected for Temperature Performed By: #### 9 3685-6 ####CALE CAI L ([id number])[facility] ([facility])[address] [place] [address] 03-18-2025 03:12-0400 SaO2% (BldA) [Mass fraction] 100 % [facility] Comment on above: Performed By: #### 43473-3 ####CALE CAI L ([id number])[facility] ([facility])[address] [place] [address] 03-17-2025 14:13-0400 Body temperature [facility] Comment on above: Result Comment: NOTE: Patient Results ar e Not Corrected for Temperature Performed By: #### 9 3685-6 ####CALE RUTLEDGEER L ([id number])[facility] ([facility])[address] [place] [address] 03-17-2025 14:13-0400 SaO2% (BldA) [Mass fraction] 99 % [facility] Comment on above: Performed By: #### 93551-4 ####CALE RUTLEDGEER L ([id number])[facility] ([facility])[address] [place] [address] 03-15-2025 15:01-0400 Body temperature 37.0 degrees Celsius [facility] Comment on above: Performed By: #### 06832-1 ####CALE Roth ([id number])[facility] ([facility])[address] [place] [address] 03-15-2025 15:01-0400 SaO2% (BldA) [Mass fraction] 99 % [facility] Comment on above: Performed By: #### 08090-0 ####CALE Roth ([id number])[facility] ([facility])[address] [place] [address] 03-15-2025 12:54-0400 Body temperature 37.0 degrees Celsius [facility] Comment on above: Result Comment: NOTE: Patient Results ar e Not Corrected for Temperature Performed By: #### 9 3685-6 ####CALE Roth ([id number])[facility] ([facility])[address] [place] [address] 03-15-2025 12:54-0400 SaO2% (BldA) [Mass fraction] 100 % [facility] Comment on above: Performed By: #### 89670-2 ####CALE Roth ([id number])[facility] ([facility])[address] [place] [address] 03-15-2025 12:33-0400 Body temperature 37.0 degrees Celus [facility] Comment on above: Performed By: #### 00668-7 ####CALE Roth ([id number])[facility] ([facility])[address] [place] [address] 03-15-2025 12:33-0400 SaO2% (BldA) [Mass fraction] 100 % [facility] Comment on above: Performed By: #### 55316-9 ####CALE Roth ([id number])[facility] ([facility])[address] [place] [address] 03-15-2025 09:52-0400 Body temperature 37.0 degrees Celus [facility] Comment on above: Result Comment: NOTE: Patient Results ar e Not Corrected for Temperature Performed By: #### 9 3685-6 ####CALE Roth ([id number])[facility] ([facility])[address] [place], [place] [address] 03-15-2025 09:52-0400 SaO2% (BldA) [Mass fraction] 100 % [facility] Comment on above: Performed By: #### 92824-1 ####CALE Roth ([id number])[facility] ([facility])[address] [place], [place] [address] 03-15-2025 09:45-0400 Body temperature 37.0 degrees Celsius [facility] Comment on above: Result Comment: NOTE: Patient Results ar e Not Corrected for Temperature Performed By: #### 9 3685-6 ####CALE Roth ([id number])[facility] ([facility])[address] [place] [address] 03-15-2025 09:45-0400 SaO2% (BldA) [Mass fraction] 100 % [facility] Comment on above: Performed By: #### 91314-3 ####CALE Roth ([id number])[facility] ([facility])[address] [place], [place] [address] 03-06-2025 05:08-0400 Body temperature 37.0 degrees Celsius [facility] Comment on above: Performed By: #### 64984-1 ####CALE Roth ([id number])[facility] ([facility])[address] [place], [place] [address] 03-06-2025 05:08-0400 SaO2% (BldA) [Mass fraction] 100 % [facility] Comment on above: Performed By: #### 83349-8 ####CALE Roth ([id number])[facility] ([facility])[address] [place], [place] [address] 03-06-2025 04:14-0400 Body temperature 37.0 degrees Celsius [facility] Comment on above: Performed By: #### 86673-1 ####CALE CAI L ([id number])[facility] ([facility])[address] [place], [place] [address] 03-06-2025 04:14-0400 SaO2% (BldA) [Mass fraction] 96 % [facility] Comment on above: Performed By: #### 98417-2 ####CALE CAI L ([id number])[facility] ([facility])[address] [place] [address] 03-06-2025 03:47-0400 Body temperature 37.0 degrees Celus [facility] Comment on above: Performed By: #### 99499-0 ####CALE CAI L ([id number])[facility] ([facility])[address] [place] [address] 03-06-2025 03:47-0400 SaO2% (BldA) [Mass fraction] 98 % [facility] Comment on above: Performed By: #### 09689-9 ####CALE CAI L ([id number])[facility] ([facility])[address] [place], [place] [address] 03-06-2025 03:25-0400 Body temperature 37.0 degrees Celsius [facility] Comment on above: Performed By: #### 12901-3 ####CALE CAI L ([id number])[facility] ([facility])[address] [place], [place] [address] 03-06-2025 03:25-0400 SaO2% (BldA) [Mass fraction] 97 % [facility] Comment on above: Performed By: #### 82517-5 ####CALE CAI L ([id number])[facility] ([facility])[address] [place], [place] [address] 03-04-2025 11:02-0400 Body temperature 37.0 degrees Celsius [facility] Comment on above: Performed By: #### 28126-9 ####CALE CAI L ([id number])[facility] ([facility])[address] [place] [address] 03-04-2025 11:02-0400 SaO2% (BldA) [Mass fraction] 100 % [facility] Comment on above: Performed By: #### 25596-3 ####CALE CAI L ([id number])[facility] ([facility])[address] [place] [address] 03-04-2025 09:28-0400 Body temperature 37.0 degrees Celus [facility] Comment on above: Performed By: #### 87230-6 ####CALE CAI L ([id number])[facility] ([facility])[address] [place] [address] 03-04-2025 09:28-0400 SaO2% (BldA) [Mass fraction] 100 % [facility] Comment on above: Performed By: #### 09173-1 ####CALE CAI L ([id number])[facility] ([facility])[address] [place] [address] 03-03-2025 22:36-0400 Body temperature 37.0 degrees Celus [facility] Comment on above: Result Comment: NOTE: Patient Results ar e Not Corrected for Temperature Performed By: #### 2 4339-4 ####CALE Roth ([id number])[facility] ([facility])[address] [place] [address] Encounters Encounter Date Encounter Type Care Provider Facility Start: 05-05-2025 Evaluation and management of inpatient ENZO Vipul HIREN [facility] Start: 05-05-2025 [facility] Start: 05-03-2025 ambulatory Benjy Chi Carlos Facility:[facility] Start: 04-26-2025 End: 05-04-2025 Evaluation and management of inpatient Benjy Chi Carlos Facility:[facility] Start: 04-21-2025 End: 04-26-2025 Evaluation and management of inpatient Luis Angel Saini MD Work Phone: [facility] Comment on above: Altered mental statu s, unspecified altered mental status type (Primary Dx); S/P DOCUMENT CLERK shunt Start: 04-20-2025 End: 04-20-2025 ambulatory Benjy Chi Carlos Facility:[facility] Start: 04-15-2025 End: 04-15-2025 Subsequent hospital visit by physician [facility] Comment on above: Arrived Start: 04-15-2025 End: 04-15-2025 ambulatory [facility] Start: 04-08-2025 End: 04-08-2025 ambulatory Yessenia Dixon Facility:[facility] Start: 04-07-2025 End: 04-21-2025 Evaluation and management of inpatient Benjy Chi Carlos Facility:[facility] Start: 04-01-2025 End: 04-07-2025 ambulatory YESSENIA LOU [facility] Start: 03-04-2025 End: 03-04-2025 Evaluation and management of inpatient [facility] Start: 03-03-2025 End: 03-31-2025 Evaluation and management of inpatient [facility] Start: 03-03-2025 End: 03-03-2025 Emergency department patient visit JAMES LOU COVERDAPOLLY [facility] Procedures Date Procedure Procedure Detail Performing Clinician Start: 04-26-2025 Ct head/brain w/o contrast material Alexis Pedro MD Work Phone: Start: 04-26-2025 Glucose quantitative blood xcpt reagent strip Alfred Self MD Work Phone: Start: 04-26-2025 Glucose quantitative blood xcpt reagent strip Alfred Self MD Work Phone: Start: 04-25-2025 Glucose quantitative blood xcpt reagent strip Alfred Self MD Work Phone: Start: 04-25-2025 Glucose quantitative blood xcpt reagent strip Alfred Self MD Work Phone: Start: 04-25-2025 End: 04-25-2025 Renal function panel Etta Pedro MD Work Phone: Start: 04-25-2025 Mri brain brain stem w/o contrast material Etta Pedro MD Work Phone: Start: 04-25-2025 Glucose quantitative blood xcpt reagent strip Alfred Self MD Work Phone: Start: 04-24-2025 Glucose quantitative blood xcpt reagent strip Alfred Self MD Work Phone: Start: 04-24-2025 Glucose quantitative blood xcpt reagent strip Alfred Self MD Work Phone: Start: 04-24-2025 Glucose quantitative blood xcpt reagent strip Alfred Self MD Work Phone: Start: 04-24-2025 Ct head/brain w/o contrast material Vel Colunga MD Work Phone: Start: 04-23-2025 Glucose quantitative blood xcpt reagent strip Alfred Self MD Work Phone: Start: 04-23-2025 Mri brain brain stem w/o contrast material Lv Linares MD Work Phone: Start: 04-23-2025 Glucose quantitative blood xcpt reagent strip Alfred Self MD Work Phone: Start: 04-23-2025 Glucose quantitative blood xcpt reagent strip Alfred Self MD Work Phone: Start: 04-23-2025 Glucose quantitative blood xcpt reagent strip Alfred Self MD Work Phone: Start: 04-23-2025 Ct head/brain w/o contrast material Yesenia [place] CREDIT DEPARTMENT MANAGER-EPIC ANESTHESIA ANALYST Work Phone: Start: 04-23-2025 Glucose quantitative blood xcpt reagent strip Alfred Self MD Work Phone: Start: 04-22-2025 Glucose quantitative blood xcpt reagent strip Alfred Self MD Work Phone: Start: 04-22-2025 Ct head/brain w/o contrast material Alexis Pedro MD Work Phone: Start: 04-22-2025 Glucose quantitative blood xcpt reagent strip Alfred Self MD Work Phone: Start: 04-22-2025 Renal function panel Etta Pedro MD Work Phone: Start: 04-22-2025 Glucose quantitative blood xcpt reagent strip Alfred Self MD Work Phone: Start: 04-22-2025 Glucose quantitative blood xcpt reagent strip Alfred Self MD Work Phone: Start: 04-21-2025 C-reactive protein Luis Angel Saini MD Work Phone: Start: 04-21-2025 End: 04-21-2025 Chloride bld Diandra Valdez CREDIT DEPARTMENT MANAGER-EPIC ANESTHESIA ANALYST Work Phone: Start: 04-15-2025 Study Interpretation of outside study Rajani Lord MD Work Phone: Start: 03-23-2025 Esophagogastroduodenoscopy NAVDEEP PALENCIA Plan of Treatment Date Care Activity Detail Author Start: 2052 Zoster Vaccines (1 o f 2) Zoster Vaccines (1 of 2) [facility] Start: 05-03-2025 End: 04-26-2026 CT Head WO contrast CT head wo IV contrast Imaging Routine S/P DOCUMENT CLERK shunt Expected: 05/03/2025, Expires: 04/26/2026 [facility] Service Area Work Phone: Comment on above: Expected: 05/03/2025 , Expires: 04/26/2026 Start: 04-23-2025 End: 04-23-2025 Patient encounter procedure 04/23/2025 10:00 AM EDT Office Visit [facility] [address] [place] [id number] Damien Hart, CREDIT DEPARTMENT MANAGER-EPIC ANESTHESIA ANALYST [address] [address] Department [place] [address] [facility] Start: 02-22-2025 COVID-19 Vaccine ( season) COVID-19 Vaccine ( season) [facility] Start: 01-22-2025 Influenza vaccination Influenza Vacc ine (#1) [facility] Start: 2024 DTaP/Tdap/Td Vaccine s (1 - Tdap) DTaP/Tdap/Td Vaccines (1 - Tdap) [facility] Start: 2023 Screening for malign ant neoplasm of cervix [facility] Start: 2021 Hepatitis B Vaccines (1 of 3 - 19+ 3-dose series) Hepatitis B Vaccines (1 of 3 - 19+ 3-dose series) [facility] Start: 2020 Hepatitis C screening Hepatitis C Sc [facility] Start: 2018 Meningococcal B Vacc ine (1 of 2 - Standard) Meningococcal B Vaccine (1 of 2 - Standard) [facility] Start: 2017 HPV Vaccines (1 - 3-dose series) HPV Vaccines (1 - 3-dose series) [facility] Start: 2003 MMR Vaccines (1 of 1 - Standard series) MMR Vaccines (1 of 1 - Standard series) [facility] Start: 2002 HIV screening HIV Screening [facility] Start: 2002 Lipid panel Lipid Panel [facility] Start: 2002 Yearly Adult Physical Yearly Adult P hysical [facility] Electrocardiogram, 12-lead PRN ACS symptoms Electrocardiogram, 12-lead PRN ACS symptoms ECG Routine As needed until discontinued starting 04/21/2025 [facility] Work Phone: Comment on above: As needed until disc ontinued starting 04/21/2025 Glucose [Mass/volume ] in Serum or Plasma POCT Glucose Point of Care Testing - Docked Device Routine Every 6 hours (Lab) until discontinued starting 04/22/2025, 18 completed [facility] Service Area Work Phone: Comment on above: Every 6 hours (Lab) until discontinued starting 04/22/2025, 18 completed End: 04-21-2025 Incentive spirometry Instruct Incentive spirometry Instruct Respiratory Care Routine Once for 1 Occurrences starting 04/21/2025 until 04/21/2025 [facility] Service Area Work Phone: Comment on above: Once for 1 Occurrenc es starting 04/21/2025 until 04/21/2025 Payers Date Payer Category Payer Unknown 2025 Unknown [id number] 2025 Self-pay 2025 Unknown [id number] 2024 Managed Care (Private) 1.2.8 [id number] 2024 Unknown [id number] 2002 Unknown [id number] 2.16.8 [id number] 2002 Unknown [id number] 2.16.8 [id number] 2002 Unknown [id number] 2.16. [id number] 2002 Unknown [id number] 2.16. [id number] 2002 Unknown [id number] 2.16. [id number] 2002 Unknown [id number] 2.16. [id number] 2002 Unknown [id number] 2.16. [id number] 2002 Unknown [id number] 2.16. [id number] 2002 Unknown [id number] 2.16. [id number] Unknown [id number] Unknown [id number] 2.16.8 [id number] Unknown [id number] 2.16.8 [id number] Unknown [id number] 2.16.8 [id number] Unknown [id number] 2.16.8 [id number] Unknown [id number] 2.16.8 [id number] Social History Date Type Detail Facility Start[facility]04[facility] Start: 03-04-2025 Tobacco use and exposure Smokeless tobacco non-user [facility] Work Phone: Start: 04-01-2025 End: 04-21-2025 Alcoholic beverage intake Defer [facility] Work Phone: Start: 03-04-2025 End: 04-21-2025 History of Social function [facility] Start: 03-04-2025 End: 04-21-2025 Tobacco use panel [facility] Within the last year , have you been afraid of your partner or ex-partner? Patient unable to answer [facility] Work Phone: In the past 12 month s, was there a time when you were not able to pay the mortgage or rent on time? No [facility] Work Phone: Start: 2002 Sex assigned at Not on file [facility] Work Phone: Start: 03-03-2025 Sex Female (finding) [facility] Medical Equipment Procedure Code Equipment Code Equipment Origin al Text Equipment Identifier Dates Graft, Duramatri x On-Lay Collagen 4 X 5 - [id number] Start: 03-04-2025 Graft, Duramatri x On-Lay Collagen 4 X 5 - [id number] Start: 03-15-2025 Implant, Crainia l, Medpor Sheet Mtb 76 X 50 X 1.6mm - [id number] Start: 03-04-2025 Clip, Aneurysm, Yasargil, Mini, Straight, 5 Mm, Titanium - [id number] - [id number] Start: 03-15-2025 Valve, Cert[address] Pl us, W/O Siphonguard - Sn/A - [id number] Start: 03-22-2025 [place], Rickh am, Large - Sna - [id number] Start: 03-22-2025 Catheter, Distal Peritoneal, Barium, Open End - Sna - [id number] Start: 03-22-2025 Screw, 1.5 X [address] Xdr - Sn/A - [id number] Start: 03-04-2025 5 Mm Avm [id number] Start: 03-15-2025 Comment on above: Description: Per andrey PORTILLO 04/12 1.5 Mm Self Drilling Ht X-Drive Screws [id number] Start: 03-15-2025 Comment on above: Description: 1.5 X 5 MM Bill only - rsp 4 Mm Avm [id number] Start: 03-15-2025 Comment on above: Description: Per LINDSEY rsp 04/12 Goals Date Patient Goal Desired Activity /State Personal health goal Functional Status Date Assessment Result Facility 04-21-2025 [facility] Work Phone: 04-21-2025 Total score [AUDIT-C] -1 025 10:10 PM Yue Almeida RN [facility] Work Phone: 04-21-2025 Functional status [facility] Work Phone: 04-21-2025 Functional status 1 [facility] Work Phone: 04-21-2025 [facility] Work Phone: 04-21-2025 [facility] 04-21-2025 Functional status [facility] Work Phone: [facility] Clinical Notes 04-07-2025 to 05-05-2025 Hilda Rico, CREDIT DEPARTMENT MANAGER-EPIC ANESTHESIA ANALYST - 04/26/2025 1:31 PM ESTDischarge InstructionsAttachIgor John, PT - 04/26/2025 11:20 AM Carmine Dewey, RN - 04/25/2025 12:00 PM EST Note Date & Type Note Facility 05-05-2025 Note [facility] Medical Records Department [address] [place] [address] Discharge Summary 05/05/25 0744 MR#: [id number] Acct: [id number] Name: KIMANI COHEN Rep #: [id number] : 2000 24 From: Benjy Gonzalez MD PCP: Dr. Yessenia Dixon MD Status:DIS IN Location: [place] [address] Providers Date of Admission: 04/26/25 Primary Care Physician: Dr. Yessenia Dixon MD Reason For Visit: BURST AVM Diagnosis Discharge Diagnosis (1) Debility: Status: Acute Code(s): R53.81 - Other malaise (2) Bleeding in brain due to brain aneurysm: Status: Resolved Code(s): I60.9 - Nontraumatic subarachnoid hemorrhage, unspecified (3) Brain aneurysm: Status: Acute Code(s): I67.1 - Cerebral aneurysm, nonruptured (4) Hemorrhagic stroke: Status: Acute Code(s): I61.9 - Nontraumatic intracerebral hemorrhage, unspecified (5) Status post insertion of percutaneous endoscopic gastrostomy (PEG) tube: Status: Acute Code(s): Z93.1 - Gastrostomy status (6) Slit ventricle syndrome: Status: Acute Code(s): T85.890A - Other specified complication of nervous system prosthetic devices, implants and grafts, initial encounter Plan 24 year old female with below past medical history significant for 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 * Debility - PT/OT. * Dysphagia/PEG - ST. * Pain - Tylenol 650mg q6h prn. * Bowel - Miralax 17gm bid, senna/colace 2 tablets bid, Dulcolax 10mg pr daily prn. * Adult immunization - Administer pneumonia vaccine, covid vaccine, flu vaccine as appropriate. * DVT prophylaxis - Lovenox 40mg sc daily. * Brain injury - Amantadine 100mg bid. * Skin irritation - Bacitracin ointment topical bid. * GERD - Famotidine 20mg bid. * Nutrition - Jevity 1.5 45mL/hour. * Insomnia - Melatonin 5mg qhs prn. * Nausea - Reglan 5mg q8 thru 04/29/2025, Zofran 4mg q6 prn. * Tachycardia - Metoprolol 75mg q12. * Dry Eyes - Artificial tears 1gtt ou q1h prn. * Leg cramps - Vitamin B complex 1 capsule daily. The following psychotropic medication was present on admission: Lorazepam 1mg q6 prn. Psychotropic medication therapy is indicated for a diagnosis of: Anxiety/restlessness. Based on my clinical evaluation, continuation of the medication is necessary at this time. Gradual dose reduction plan (select one): ____ GDR will be attempted. Will monitor patient symptoms and behaviors in response to GDR. __x__ GRD contraindicated. 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 Medications at Discharge Home Medications B complex-vitamin C-folic acid ER 400 mcg tablet,extended release 1 tab PO DAILY supplement 04/07/25 acetaminophen 325 mg/10.15 mL oral solution 650 mg feeding tube Q6H PRN pain (scale score 1-10) 04/07/25 amantadine HCl 50 mg/5 mL oral solution 100 mg feeding tube BID involuntary movement 04/07/25 bisacodyl 10 mg rectal suppository 10 mg OH DAILY PRN constipation 04/07/25 carboxymethylcellulose sodium 1 % eye drops (Artificial Tears (carboxymethylcellulose)) 1 drp EACH EYE DAILY PRN dry eyes 04/07/25 esomeprazole magnesium 40 mg capsule,delayed release (Nexium) 40 mg feeding tube BID reflux 04/07/25 heparin (porcine) 5,000 unit/mL (1 mL) injection cartridge 5,000 unit subcut Q8H prophylaxis 04/07/25 levetiracetam 500 mg/5 mL (5 mL) oral solution 500 mg feeding tube BID seizures 04/07/25 lorazepam 0.5 mg tablet (Ativan) 0.5 mg feeding tube Q6H PRN mild restlessness/agitation 04/07/25 lorazepam 1 mg tablet (Ativan) 1 mg feeding tube Q6H PRN severe restlessness/agitation 04/07/25 metoclopramide HCl 5 mg/5 mL oral solution 5 mg feeding tube Q8H digestion/nausea 04/07/25 metoprolol tartrate 25 mg tablet 75 mg feeding tube Q12H BP/pulse 04/07/25 nystatin 100,000 unit/mL oral suspension 500,000 unit PO Q6H thrush 04/07/25 ondansetron 4 mg disintegrating tablet 4 mg feeding tube Q6H PRN nausea 04/07/25 polyethylene glycol 3350 17 gram/dose oral powder 17 g feeding tube BID constipation 04/07/25 sennosides 8.6 mg-docusate sodium 50 mg capsule (Senna Plus) 2 tab-cap PO BID bowels 04/07/25 thiamine HCl (vitamin B1) 100 mg tablet 100 mg feeding tube DAILY supplement 04/07/25 zinc sulfate 50 mg zinc (220 mg) capsule (Orazinc) 50 mg PO DAILY supplement 04/07/25 bacitracin 500 unit/gram topical ointment 1 applic topical BID surgical incision 04/26/25 insulin lispro 100 unit/mL subcutaneous pen (Humalog KwikPen (U-100) Insulin) 5 unit subcut Q6H Tube feed 04/26/25 melatonin 5 mg capsule mg feeding tube QHS PRN sleep 04/26/25 Hospital Course Operations None Procedures None Summary of Care Provided Minutes Spent on Discharge: 15 Hospital Course: 24 year old female with below past med (more content not included)... [facility] 04-26-2025 Note [facility] Medical Records Department [address] [place] [address] History Physical Exam 04/26/252025 MR#: [id number] Acct: [id number] Name: KIMANI COHEN Rep #: [id number] : 2000 24 From: Benjy Gonzalez MD PCP: Dr. Yessenia Dixon MD Status:ADM IN Location: TCU [facility]- HPI - General General Date of Admission: 04/26/25 Date of Service: 04/26/25 Chief Complaint: Here for rehabilitation. HPI Narrative KIMANI COHEN, is a 24 F who presents with following: TCU resident ruptured aneurysm, DOCUMENT CLERK shunt, PEG. 04/20/2025 Change in mental status, lack of progression in therapy. CT head showed slit like ventricles c/w overshunting. 04/20/2025 Admit to [facility]. 04/21/2025 Certas shunt dialed from 1 to 3 ( Lower number means more shunting, Higher number means less shunting ). 04/22/2025 No acute events overnight, Certas dialed to 3. Voiding, having BM's. CT head ordered. 04/23/2025 CT head ventricles minimally increased. Clinically improving with shunt dialed up, however not yet back to baseline. MRI brain w/wo contrast ordered, hypotensive in MRI. 04/24/2025 CTH minimal decrease in ventricles, Certas dialed to 4. 04/25/2025 MRI brain stable, no acute infarcts. 04/26/2025 CTH stable. 04/26/2025 Admit to TCU with debility, here for rehabilitation, strengthening, prior to discharge home with family. [facility] Medical History (Updated 04/26/25 @ 20:[address] Benjy Gonzalez MD) Brain aneurysm Bleeding in brain due to brain aneurysm Hemorrhagic stroke Debility Home Medications ???Medication ???Instructions ???Recorded ???Last Taken [...] bisacodyl 10 mg rectal suppository 10 mg OH DAILY PRN constipation 04/07/25 Unknown History carboxymethylcellulose sodium 1 % 1 drp EACH EYE DAILY PRN dry eyes 04/07/25 Unknown History eye drops (Artificial Tears (carboxymethylcellulose)) esomeprazole magnesium 40 mg 40 mg feeding tube BID reflux 03/24 11/15 Unknown History capsule,delayed release (Nexium) heparin (porcine) 5,000 unit/mL (1 5,000 unit subcut Q8H prophylaxi s 04/07/25 04/26/25 10:15 History mL) injection cartridge levetiracetam 500 mg/5 mL (5 mL) 500 mg feeding tube BID seizures 1 Unknown History oral solution lorazepam 0.5 mg tablet (Ativan) 0.5 mg feeding tube Q6H PRN mild 1 Unknown History restlessness/agitation lorazepam 1 mg tablet (Ativan) 1 mg feeding tube Q6H PRN severe 1 04/25/25 10:45 History restlessness/agitation metoclopramide HCl 5 mg/5 mL oral 5 mg feeding tube Q8H 04/07/25 Un known History solution digestion/nausea metoprolol tartrate 25 mg tablet 75 mg feeding tube Q12H BP/pulse 1 04/26/25 08:45 History nystatin 100,000 unit/mL oral 500,000 unit PO Q6H thrush 5 Unknown History suspension ondansetron 4 mg disintegrating 4 mg feeding tube Q6H PRN nausea 1 Unknown History tablet polyethylene glycol 3350 17 17 g feeding tube BID constipation 04/07/25 Unknown History gram/dose oral powder sennosides 8.6 mg-docusate sodium 2 tab-cap PO BID bowels 04/07/25 04/26/25 08:35 History 50 mg capsule (Senna Plus) thiamine HCl (vitamin B1) 100 mg 100 mg feeding tube DAILY 04/07/25 Unknown History tablet supplement zinc sulfate 50 mg zinc (220 mg) 50 mg PO DAILY supplement 04/07/25 Unknown History capsule (Orazinc) bacitracin 500 unit/gram topical 1 applic topical BID surgical 09/15 Unknown History ointment incision insulin lispro 100 unit/mL 5 unit subcut Q6H Tube feed 04/26/25 12:05 History subcutaneous pen (Humalog KwikPen (U-100) Insulin) melatonin 5 mg capsule mg feeding tube QHS PRN sleep 09/1504/25/25 20:30 History Allergy/AdvReac Type Severity Reaction Status Date / Time No Known Allergies Allergy Verified 04/07/25 14:14 Surgical History Status post insertion of percutaneous endoscopic gastrostomy (PEG) tube History of craniectomy Social History household members: spouse Smoking Status: Never smoker alcohol intake: never substance use type: does not use ROS Review of Systems ROS Unobtainable: due to mental condition, due to mental status and other Constitutional Constitutional: Denies chills, fever(s) or weight gain ENT HEENT: Denies headache(s), nasal congestion or nasal discharge Cardiovascul (more content not included)... [facility] 04-26-2025 Hospital course Narrative Discharge Diagnosis Altered mental status, unspecified altered mental status type Issues Requiring Follow-Up Obtain CT head in one week prior to next visit Follow up with Neurosurgery in 1 week Test Results Pending At Discharge Pending Labs No current pending labs. Hospital Course Kimani Cohen is a 24 year old female with a past medical history of migraines who previously presented 03/04/2025 with worst headache of life. Hospital course complicated by intubation for declining exam and RF EVD placement. 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 Taken to the OR 03/04 for decompressive SOC and C1 lami followed by return to angio 03/05 for L PICA and R SCA feeder glue embolization. 03/14 MRI brain demonstrated posterior fossa subacute blood, with diffusion restriction in medial cerebellum. Patient again returned to the OR on 03/15 SOC for AVM resection. Post operative angio with no residual AVM, diffuse posterior circulation spasm. Repeat angio 03/18 with severe posterior circulation spasm 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 and basilar, 10 IA verapamil to L vert, mild b/l ICA spasm. Repeat MRI brain with patchy areas of restricted diffusion along the posteromedial bilateral cerebellar hemispheres and in the superior anterior left cerebellar hemisphere. Patient ultimately required RO VPS (Certas at 1) on 03/22 follow by PEG on 03/23. She was discharged to acute rehab 03/31. Patient returned to the [facility] ED 04/21 with decline in neuro status over the past few days. CT head with decreased ventricular caliber. Patient admitted to the neurosurgery service for further workup/management. 04/21 Certas dialed down to 3. 04/23 CTH vents incr, hypotensive in MRI 04/24 CTH min decr vents, certas dialed to 4 04/25 MRI brain stable, no acute infarct 04/26 CTH stable On the day of discharge, the patient was seen and evaluated by the neurosurgery team and deemed suitable for discharge. The patient was given detailed discharge instructions and were scheduled to follow up as an outpatient. Visit Vitals BP 100/68 (BP Location: Right arm, Patient Position: Lying) Pulse 97 Temp 36 C (96.8 F) (Temporal) Resp 17 Vitals: 04/21/25 1343 Weight: (!) 44 kg (97 lb) There is no immunization history on file for this patient. Results Pertinent Physical Exam At Time of Discharge Physical Exam Eyes: Pupils: Pupils are equal, round, and reactive to light. Cardiovascular: Pulses: Normal pulses. Pulmonary: Effort: Pulmonary effort is normal. Abdominal: Palpations: Abdomen is soft. Comments: PEG in place Musculoskeletal: General: Normal range of motion. Skin: General: Skin is warm. Neurological: Mental Status: She is alert. Comments: Ox0 Non verbal Dysconjugate gaze, does not track R partial palsy RUE spont >AG BLE FC (wiggles toes) Home Medications Medication List START taking these medications bacitracin 500 unit/gram ointment; Apply topically 2 times a day. Apply a small amount to surgical incision (cranial) melatonin 5 mg tablet; Take 1 tablet (5 mg) by mouth as needed at bedtime for sleep. metoprolol tartrate 75 mg tablet; Commonly known as: Lopressor; Take 1 tablet (75 mg) by g-tube 2 times a day. CHANGE how you take these medications LORazepam 1 mg tablet; Commonly known as: Ativan; Take 1 tablet (1 mg) by g-tube every 6 hours if needed (nausea/vomiting and tachycardia) for up to 14 days.; What changed: how much to take, reasons to take this, additional instructions CONTINUE taking these medications acetaminophen 650 mg/20.3 mL solution oral liquid; Commonly known as: Tylenol; Take 20.3 mL (650 mg) by g-tube every 6 hours if needed for pain. amantadine 50 mg/5 mL solution; Commonly known as: Symmetrel; Take 10 mL (100 mg) by g-tube every 12 hours. Assess need for medication often while assessing patient's alert and responsiveness. bisacodyl 10 mg suppository; Commonly known as: Dulcolax; Insert 1 suppository (10 mg) into the rectum once daily as needed for constipation. carboxymethylcellulose PF 1 % ophthalmic solution esomeprazole 40 mg packet; Commonly known as: NexIUM; Take 40 mg by mouth 2 times a day. Via Peg Tube heparin (porcine) 5,000 unit/mL injection; Inject 1 mL (5,000 Units) under the skin every 8 hours. Until ambulatory insulin lispro 100 unit/mL injection; Inject 0-5 Units under the skin every 6 hours. Take as directed per insulin instructions. metoclopramide 5 mg tablet; Commonly known as: Reglan; Take 1 tablet (5 mg) by g-tube 3 times a day. Stop medication on 04/29/2025. ondansetron 4 mg tablet; Commonly known as: Zofran; Take 1 tablet (4 mg) by g-tube every 6 hours if needed for nausea or vomiting. polyethylene glycol 17 gram packet; Commonly known as: Glycolax, Miralax; Take 17 g by g-tube 2 times a day. sennosides-docusate sodium 8.6-50 mg tablet; Commonly known as: Britany-Colace; Take 2 tablets by g-tube 2 times a day. vitamin B complex-vitamin C-folic acid 1 mg capsule; Commonly known as: Nephrocaps; Take 1 capsule by g-tube once daily in the morning. Take before meals. STOP taking these medications levETIRAcetam 500 mg tablet; Commonly known as: Keppra Outpatient Follow-Up No future appointments. will be notified of upcoming follow up visit with Neurosurgery along with CT head KRISTINA Cruz Total face to face time spent with patient/family of 30 minutes, with >50% of the time spent discussing plan of care/management, counseling/educating on disease processes, explaining results of diagnostic testing. documented in this encounter [facility] Work Phone: 04-26-2025 Hospital Discharge instructions KRISTINA Cruz - 04/26/2025 11:50 AM EST Wash incision DAILY with baby shampoo and water, pat dry, no scrubbing and leave open to air Apply a small amount of Bacitracin to Cranial surgical incision Obtain CT head in one week prior to follow up visit in one week -- May obtain CT head closer to [place] facility. --Follow up with Neurosurgery in one week (you will be contacted for an appointment time). This may be a virtual visit The following attachments cannot be sent through Care Everywhere.STROKE OVERVIEW HANDOUTEnteral Feeding (Niuean)documented in this encounter [facility] Work Phone: 04-26-2025 History of Present illness Narrative Physical Therapy Therapy Communication Note Patient Name: Kimani Cohen Department: Room: [address] [place] [address] Today's Date: 04/26/2025 Discipline: Physical Therapy PT Missed Visit: Yes Missed Visit Reason: Other (Comment) (Off division) Missed Time:1120 Attempt 04/25/25 1159 Rapid Rounds Attendance Care Transitions Expected Discharge Disposition SNF Today we still await: Clinical stability;Diagnostic workup Review at Escalation Rounds No escalation needed Per notes, patient is still pending a CT scan and MRI of the brain. Will continue to follow for updates. Jacy Dewey RN, BSN Transitional Mold Loft Worker Kimani Cohen is a 24 y.o. female on day 4 of admission presenting with Altered mental status, unspecified altered mental status type. Subjective No acute events overnight, Pt is much improved after dialing her to 4. She is following commands in her BLE per and more responsive. Objective Physical Exam Awake, Ox0, non verbal Dysconjugate gaze, does not track R partial palsy RUE spont >AG BLE FC (wiggle toes) Last Recorded Vitals Blood pressure 96/67, pulse (!) 114, temperature 36.3 C (97.3 F), temperature source Temporal, resp. rate 18, height 1.6 m (5' 2.99), weight (!) 44 kg (97 lb), SpO2 98%. Intake/Output last 3 Shifts: I/O last 3 completed shifts: In: 1845 (41.9 mL/kg) [NG/GT:1845] Out: 850 (19.3 mL/kg) [Urine:850 (0.5 mL/kg/hr)] Weight: 44 kg Relevant Results Assessment/Plan Assessment & Plan Altered mental status, unspecified altered mental status type Assessment SM4. H/o migraines ow no sig pmhx, 03/04/2025 p/w WHOL, s/p intubated for declining exam, s/p RF EVD at 03/04 s/p angio SM4 AVM w b/l PICA, AICA, R SCA feeders and drainage into torcula, intranidal aneurysms off R PICA s/p glue embo of R PICA w/ intranidal aneurysms and partial nidus embo, 03/04 s/p decompressive SOC and C1 lami, 03/05 CTH incr vents, 03/05 s/p angio L PICA and R SCA feeder glue embo, XperCT stable, 03/06 CTH slight decr vents, developing L cerebellar infarct o/w stable, CT PE neg for PE, aspiration pneumonitis, 03/08 CTH evolving posterior fossa edema/infarct, increased vents, EVD dropped from 12 to 10, 03/12 DVT BUE US R basilic SVT, 03/14 CTH decr vents, decr edema, CTA stable AVM, MRI brain posterior fossa subacute blood, w diffusion restriction in medial cerebellum, 03/15 s/p SOC for AVM resection, s/p angio no residual AVM, diffuse posterior circulation spasm, 03/16 CTH vents incr, EVD dropped to 7, 03/18 CTH incr'd vents, EVD lowered to 5, 03/18 s/p angio w severe posterior circulation spasm 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 and basilar, 10 IA verapamil to L vert, mild b/l ICA spasm, MRI brain patchy areas of restricted diffusion along the posteromedial bilateral cerebellar hemispheres and in the superior anterior left cerebellar hemisphere, 03/21 worsening exam, CTH incr vents, EVD lowered to 0, 03/22 s/p RO VPS (Certas at 2), RF EVD removal, CTH catheter in posn, incr vents, shunt dialed to 1, 03/23 s/p PEG, 04/21 p/w worsening exam (not FC x1d), CTH decr vents, certas dialed to 3, 04/22 CTH vents stable fourth ventricle decreased, 04/23 CTH vents incr, hypotensive in MRI, 04/24 CTH min decr vents, certas dialed to 4 Plan Tele We will obtain MRI We will obtain CTH on 04/26 needs 1wk fuv w/ TR at dispo, PTOT-SNF (back to facility, does not need re-eval) Laura Colunga MD Cosigned by Alfred Self MD at 04/26/2025 12:04 PM EST Occupational Therapy Evaluation Patient Name: Kimani Cohen Today's Date: 04/24/2025 Room: [address] [place] [address] Time Calculation Start Time: 1015 Stop Time: 1033 Time Calculation (min): 18 min Assessment IP OT Assessment OT Assessment: Pt's abilty to complete ADLs currently limited by deficits in functional strength, activity tolerance, cognition, and balance. She demos limited active movement of L UE and LES. The pt requires total assist for all ADLs, and performs functional transfers with Max A - DEP. Pt will benefit from continued OT while admitted to increase IND and safety prior to d/c. Prognosis: Fair Barriers to Discharge Home: Caregiver assistance, Cognition needs, Physical needs Caregiver Assistance: Caregiver assistance needed per identified barriers - however, level of patient's required assistance exceeds assistance available at home Cognition Needs: 24hr supervision for safety awareness needed Physical Needs: 24hr mobility assistance needed, 24hr ADL assistance needed Evaluation/Treatment Tolerance: Patient tolerated treatment well Medical Staff Made Aware: Yes End of Session Communication: Bedside nurse End of Session Patient Position: Bed, 3 rail up, Alarm off, not on at start of session, Alarm off, caregiver present Plan: Inpatient Plan Treatment Interventions: ADL retraining, Visual perceptual retraining, Functional transfer training, UE strengthening/ROM, Endurance training, Cognitive reorientation, Patient/family training, Equipment evaluation/education, Neuromuscular reeducation, Fine motor coordination activities, Compensatory technique education OT Frequency for Current Admission: 3 times per week during this acute inpatient hospitalization OT Discharge Recommendations: Moderate intensity level of continued care, Based on current functional status and rehab potential, patient is anticipated to tolerate and benefit from 5 or more days per week of skilled rehabilitative therapy after discharge from this acute inpatient hospitalization Equipment Recommended upon Discharge: (TBD) OT Recommended Transfer Status: Assist of 2 OT - OK to Discharge: Yes OT Assessment OT Assessment Results: Decreased ADL status, Decreased upper extremity range of motion, Decreased upper extremity strength, Decreased safe judgment during ADL, Decreased cognition, Decreased endurance, Decreased sensation, Visual deficit, Decreased fine motor control, Decreased functional mobility, Decreased gross motor control, Decreased IADLs, Non-functional right upper extremity, Non-functional left upper extremity, Decreased trunk control for functional activities Prognosis: Fair Barriers to Discharge: (CLOF) Evaluation/Treatment Tolerance: Patient tolerated treatment well Medical Staff Made Aware: Yes Strengths: Support of extended family/friends, Support of spiritism community, Premorbid level of function Barriers to Participation: Comorbidities, Ability to acquire knowledge, Insight into problems Subjective Current Problem: 1. Altered mental status, unspecified altered mental status type 2. S/P DOCUMENT CLERK shunt General: Reason for Referral: DOCUMENT CLERK shunt overdrainage Past Medical History Relevant to Rehab: AVM (arteriovenous malformation), Hydrocephalus with VPS Prior to Session Communication: Bedside nurse Patient Position Received: Bed, 3 rail up, Alarm off, not on at start of session Family/Caregiver Present: Yes Caregiver Feedback: Spouse and mother present and highly engaged General Comment: Pt presents supine in bed upon arrival - she remains non-verbal throughout session and moves LEs sporadically Precautions: Medical Precautions: Fall precautions Pain: Pain Assessment Pain Assessment: Unable to self-report Lines/Tubes/Drains: Gastrostomy/Enterostomy Percutaneous endoscopic gastrostomy (PEG) (Active) Number of days: 31 External Urinary Catheter Female (Active) Number of days: 3 Objective Cognition: Overall Cognitive Status: Impaired Arousal/Alertness: Inconsistent responses to stimuli Orientation Level: Unable to assess Cognition Comments: Fixed L upper quadrant gaze throughout session, minimal command following Home Living: Type of Home: House (Has been in SNF since previous admission) Lives With: Spouse Home Adaptive Equipment: None Home Layout: One level, Able to live on main level with bedroom/bathroom Home Access: Stairs to enter with rails Entrance Stairs-Number of Steps: 3 Bathroom Shower/Tub: Tub/shower unit Home Living Comments: Spouse and family can help with cooking, cleaning, laundry, and grocery shopping Prior Function: Level of [place]: Independent with ADLs and functional transfers, Independent with homemaking with ambulation ADL Assistance: Independent Homemaking Assistance: Independent Ambulatory Assistance: Independent Leisure: Horses, gospel music, loves animals Prior Function Comments: Prior to last admission, patient was independent in home and community. At the SNF following last discharge, she was working on walking with 2 caregivers short distances. IADL History: Current License: No Leisure and Hobbies: Horses, gospel music, loves animals ADL: Eating Assistance: Total (Anticipated) Grooming Assistance: Total Bathing Assistance: Total (Anticipated) UE Dressing Assistance: Total LE Dressing Assistance: Total (Anticipated) Toileting Assistance with Device: Total (Anticipated) ADL Comments: Total assist for all ADLs at this time Activity Tolerance: Endurance: Decreased tolerance for upright activites Balance: Static Sitting Balance Static Sitting-Balance Support: No upper extremity supported, Feet supported Static Sitting-Level of Assistance: Maximum assistance Static Standing Balance Static Standing-Balance Support: No upper extremity supported Static Standing-Level of Assistance: Maximum assistance Bed Mobility/Transfers: Bed Mobility Bed Mobility: Yes Bed Mobility 1 Bed Mobility 1: Supine to sitting, Sitting to supine Level of Assistance 1: Dependent, +2 Bed Mobility Comments 1: Assist with trunk, LEs, and head control and Transfers Transfer: Yes Transfer 1 Transfer From 1: Sit to, Stand to Transfer to 1: Stand, Sit Technique 1: Sit to stand, Stand to sit Transfer Level of Assistance 1: Maximum assistance Trials/Comments 1: Spouse provides hands on assist alongside therapist - Max A for lifting and standing balance IADL's: Current License: No Leisure and Hobbies: Horses, gospel music, loves animals Vision: Vision - Basic Assessment Current Vision: Does not wear glasses Patient Visual Report: (Fixed L gaze) and Sensation: Light Touch: (Unable to assess 2/2 cognition) Strength: Strength Comments: B UEs impaired Perception: Inattention/Neglect: Cues to maintain midline in sitting, Cues to attend to right side of body, Cues to attend right visual field Coordination: Movements are Fluid and Coordinated: No Upper Body Coordination: No active movement of L UE, limited activation of L UE Hand Function: Hand Function Gross Grasp: Impaired Coordination: Impaired Extremities: RUE RUE : Exceptions to WFL, LUE LUE: Exceptions to WFL, , and Outcome Measures: [facility] Daily Activity Putting on and taking off regular lower body clothing: Total Bathing (including washing, rinsing, drying): Total Putting on and taking off regular upper body clothing: Total Toileting, which includes using toilet, bedpan or urinal: Total Taking care of personal grooming such as brushing teeth: Total Eating Meals: Total Daily Activity - Total Score: 6 , OT Adult Other Outcome Measures 4AT: 4 AT+ Education Documentation Body Mechanics, taught by Mahesh Cline OT at 04/24/2025 2:44 PM. Learner: Family, Patient Readiness: Acceptance Method: Explanation, Demonstration Response: Needs Reinforcement Comment: ADLs and safety Precautions, taught by Mahesh Cline OT at 04/24/2025 2:44 PM. Learner: Family, Patient Readiness: Acceptance Method: Explanation, Demonstration Response: Needs Reinforcement Comment: ADLs and safety ADL Training, taught by Mahesh Cline OT at 04/24/2025 2:44 PM. Learner: Family, Patient Readiness: Acceptance Method: Explanation, Demonstration Response: Needs Reinforcement Comment: ADLs and safety Education Comments No comments found. Goals: Encounter Problems Encounter Problems (Active) ADLs Patient will feed self with moderate assist level of assistance and verbal cues and visual cues using PRN adaptive equipment. (Progressing) Start: 04/24/25 Expected End: 05/15/25 Patient will complete daily grooming tasks brushing teeth and washing face/hair with maximal assist level of assistance and PRN adaptive equipment while supported sitting. (Progressing) Start: 04/24/25 Expected End: 05/15/25 BALANCE Patientt will maintain static standing balance during ADL task with Min assist level of assistance drop down in order to demonstrate decreased risk of falling and improved postural control. (Progressing) Start: 04/24/25 Expected End: 05/15/25 COGNITION/SAFETY Patient will follow 25% Simple commands to allow improved ADL performance. (Progressing) Start: 04/24/25 Expected End: 05/15/25 TRANSFERS Patient will perform bed mobility maximal assist level of assistance and bed rails in order to improve safety and independence with mobility (Progressing) Start: 04/24/25 Expected End: 05/15/25 VISION Patient will visually attend to Right side of Body using compensatory strategies and stand by assist level of assistance. (Progressing) Start: 04/24/25 Expected End: 05/15/25 04/24/25 at 2:45 PM Mahesh Cline OT Rehab Office: [phone] Kimani Cohen is a 24 y.o. female on day 3 of admission presenting with Altered mental status, unspecified altered mental status type. Subjective No acute events overnight, Pt was hypotensive in the MRI scanner today, but we will try to obtain CTH. Objective Physical Exam Awake, Ox0, non verbal Dysconjugate gaze, does not track R partial palsy L FC RUE spont <AG RLE spont >AG Last Recorded Vitals Blood pressure 101/70, pulse 104, temperature 36.4 C (97.5 F), temperature source Temporal, resp. rate 16, height 1.6 m (5' 2.99), weight (!) 44 kg (97 lb), SpO2 94%. Intake/Output last 3 Shifts: I/O last 3 completed shifts: In: 1170 (26.6 mL/kg) [NG/GT:1170] Out: 300 (6.8 mL/kg) [Urine:300 (0.2 mL/kg/hr)] Weight: 44 kg Relevant Results Assessment/Plan Assessment & Plan Altered mental status, unspecified altered mental status type Assessment SM4. H/o migraines ow no sig pmhx, 03/04/2025 p/w WHOL, s/p intubated for declining exam, s/p RF EVD at 10, 03/04 s/p angio SM4 AVM w b/l PICA, AICA, R SCA feeders and drainage into torcula, intranidal aneurysms off R PICA s/p glue embo of R PICA w/ intranidal aneurysms and partial nidus embo, 03/04 s/p decompressive SOC and C1 lami, 03/05 CTH incr vents, 03/05 s/p angio L PICA and R SCA feeder glue embo, XperCT stable, 03/06 CTH slight decr vents, developing L cerebellar infarct o/w stable, CT PE neg for PE, aspiration pneumonitis, 03/08 CTH evolving posterior fossa edema/infarct, increased vents, EVD dropped from 12 to 10, 03/12 DVT BUE US R basilic SVT, 03/14 CTH decr vents, decr edema, CTA stable AVM, MRI brain posterior fossa subacute blood, w diffusion restriction in medial cerebellum, 03/15 s/p SOC for AVM resection, s/p angio no residual AVM, diffuse posterior circulation spasm, 03/16 CTH vents incr, EVD dropped to 7, 03/18 CTH incr'd vents, EVD lowered to 5, 03/18 s/p angio w severe posterior circulation spasm 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 and basilar, 10 IA verapamil to L vert, mild b/l ICA spasm, MRI brain patchy areas of restricted diffusion along the posteromedial bilateral cerebellar hemispheres and in the superior anterior left cerebellar hemisphere, 03/21 worsening exam, CTH incr vents, EVD lowered to 0, 03/22 s/p RO VPS (Certas at 2), RF EVD removal, CTH catheter in posn, incr vents, shunt dialed to 1, 03/23 s/p PEG, 04/21 p/w worsening exam (not FC x1d), CTH decr vents, certas dialed to 3, 04/22 CTH vents stable fourth ventricle decreased, 04/23 CTH vents incr, hypotensive in MRI Plan Tele We will discuss MRI in AM, We will obtain CTH needs 1wk fuv w/ TR at dispo, PTOT-SNF (back to facility, does not need re-eval) Laura Colunga MD Cosigned by Alfred Self MD at 04/26/2025 12:03 PM EST Physical Therapy Physical Therapy Treatment Patient Name: Kimani Cohen Department: [facility] [id number] Room: [address] [place] [address]- Today's Date: 04/23/2025 Time Calculation Start Time: 1357 Stop Time: 1411 Time Calculation (min): 14 min Assessment/Plan PT Assessment End of Session Communication: Bedside nurse Assessment Comment: Pt had low tolerance to activity today, likely because of pt sitting EOB with prior to session. Pt makes initiation attempts to move sup>sit with moving LE to edge of bed and attempting to lift trunk off bed. While sitting EOB pt able to follow cues 50% of trials with LE movements. Pt has difficulty with isolating movement of 1 LE at a time. Pt began to return self to bed by lifting legs into bed independently, but required assist with trunk and repositioning. Skilled interventions required to continue to address deficits to allow for return to highest level of function and improved QOL. End of Session Patient Position: Bed, 2 rail up, Alarm off, not on at start of session ( present) PT Plan Treatment/Interventions: Bed mobility, Transfer training, Gait training, Stair training, Balance training, Neuromuscular re-education, Neurodevelopmental intervention, Strengthening, Endurance training, Range of motion, Therapeutic exercise, Therapeutic activity, Home exercise program PT Plan: Ongoing PT PT Frequency for Current Admission: 4 times per week during this acute inpatient hospitalization PT Discharge Recommendations: Moderate intensity level of continued care PT Recommended Transfer Status: Assist x2 PT - OK to Discharge: Yes PT Visit Info: PT Received On: 04/23/25 General Visit Information: General Family/Caregiver Present: Yes Caregiver Feedback: and family friend present and supportive Prior to Session Communication: Bedside nurse Patient Position Received: Bed, 2 rail up, Alarm off, not on at start of session General Comment: Pt supine upon arrival, reports that he had assisted pt with sitting EOB and she had just returned to supine 15 minutes prior, all agreeable to PT Subjective Precautions: Precautions Medical Precautions: Fall precautions Objective Cognition: Cognition Overall Cognitive Status: Impaired Arousal/Alertness: Delayed responses to stimuli Orientation Level: Unable to assess Following Commands: Follows one step commands with increased time (+repetition) Coordination: Postural Control: Postural Control Postural Control: Impaired Head Control: impaired, improves with consistent cues for posterior trunk lean to initiate improved head control Static Sitting Balance Static Sitting-Balance Support: Feet supported, Bilateral upper extremity supported Static Sitting-Level of Assistance: Minimum assistance Static Sitting-Comment/Number of Minutes: x10 min Extremity/Trunk Assessments: Cervical: pt has decreased head control, but responds well to verbal and tactile cues to increase posterior trunk lean to assist with head control, pt fatigues quickly throughout session, requiring increased assist with maintaining upright position Activity Tolerance: Activity Tolerance Endurance: Decreased tolerance for upright activites Treatments: Therapeutic Activity Therapeutic Activity Performed: Yes Therapeutic Activity 1: bed mobility Therapeutic Activity 2: sitting EOB to increase tolerance to upright activity Bed Mobility Bed Mobility: Yes Bed Mobility 1 Bed Mobility 1: Supine to sitting Level of Assistance 1: Moderate assistance (x2) Bed Mobility Comments 1: pt assists with LE and demonstrates initiation of trunk and head moving anterior Bed Mobility 2 Bed Mobility 2: Sitting to supine Level of Assistance 2: Maximum assistance Bed Mobility Comments 2: pt moves LE into bed without assist Transfers Transfer: No (Pt chose to return to bed prior to transfer attempts) Outcome Measures: [facility] Basic Mobility Turning from your back to your side while in a flat bed without using bedrails: A lot Moving from lying on your back to sitting on the side of a flat bed without using bedrails: A lot Moving to and from bed to chair (including a wheelchair): Total Standing up from a chair using your arms (e.g. wheelchair or bedside chair): A lot To walk in hospital room: Total Climbing 3-5 steps with railing: Total Basic Mobility - Total Score: 9 Education Documentation Home Exercise Program, taught by Yeni Zabala PT at 04/23/2025 2:48 PM. Learner: Significant Other, Family Readiness: Acceptance Method: Explanation Response: Verbalizes Understanding Comment: POC, benefits of challenging mobility while maintaining awareness of pt preference/comfort Precautions, taught by Yeni Zabala PT at 04/23/2025 2:48 PM. Learner: Significant Other, Family Readiness: Acceptance Method: Explanation Response: Verbalizes Understanding Comment: POC, benefits of challenging mobility while maintaining awareness of pt preference/comfort Body Mechanics, taught by Yeni Zabala PT at 04/23/2025 2:48 PM. Learner: Significant Other, Family Readiness: Acceptance Method: Explanation Response: Verbalizes Understanding Comment: POC, benefits of challenging mobility while maintaining awareness of pt preference/comfort Mobility Training, taught by Yeni Zabala PT at 04/23/2025 2:48 PM. Learner: Significant Other, Family Readiness: Acceptance Method: Explanation Response: Verbalizes Understanding Comment: POC, benefits of challenging mobility while maintaining awareness of pt preference/comfort OP EDUCATION: Care Plan Goals: Encounter Problems Encounter Problems (Active) PT Problem Patient is able to perform sit to stand requiring minimal assist or less (Progressing) Start: 04/22/25 Expected End: 05/06/25 Patient able to maintain sitting edge of bed for 10 minutes requiring contact guard assist or less (Progressing) Start: 04/22/25 Expected End: 05/06/25 Patient is able to transfer from bed to recliner/commode requiring moderate or less assist (Not Progressing) Start: 04/22/25 Expected End: 05/06/25 Care Transitions Progress Note: Per medical team patient is not medically ready. Patient in OR today. Dispo: return to [facility] where she is [facility] under [email or web address]'s Admissions stated she can come back skilled as that is the level she was receiving. Kimani Cohen is a 24 y.o. female on day 2 of admission presenting with Altered mental status, unspecified altered mental status type. Subjective No acute events overnight Objective Physical Exam Awake, Ox0, non verbal Dysconjugate gaze, does not track R partial palsy BUE spon AG BLE wiggles toes o/w spon AG Last Recorded Vitals Blood pressure 106/73, pulse 107, temperature 35.8 C (96.4 F), resp. rate 18, height 1.6 m (5' 2.99), weight (!) 44 kg (97 lb), SpO2 99%. Intake/Output last 3 Shifts: I/O last 3 completed shifts: In: 1080 (24.5 mL/kg) [NG/GT:1080] Out: 150 (3.4 mL/kg) [Urine:150 (0.1 mL/kg/hr)] Weight: 44 kg Relevant Results Assessment/Plan Assessment & Plan Altered mental status, unspecified altered mental status type Assessment SM4. H/o migraines ow no sig pmhx, 03/04/2025 p/w WHOL, s/p intubated for declining exam, s/p RF EVD at , 03/04 s/p angio SM4 AVM w b/l PICA, AICA, R SCA feeders and drainage into torcula, intranidal aneurysms off R PICA s/p glue embo of R PICA w/ intranidal aneurysms and partial nidus embo, 03/04 s/p decompressive SOC and C1 lami, 03/05 CTH incr vents, 03/05 s/p angio L PICA and R SCA feeder glue embo, XperCT stable, 03/06 CTH slight decr vents, developing L cerebellar infarct o/w stable, CT PE neg for PE, aspiration pneumonitis, 03/08 CTH evolving posterior fossa edema/infarct, increased vents, EVD dropped from 12 to 10, 03/12 DVT BUE US R basilic SVT, 03/14 CTH decr vents, decr edema, CTA stable AVM, MRI brain posterior fossa subacute blood, w diffusion restriction in medial cerebellum, 03/15 s/p SOC for AVM resection, s/p angio no residual AVM, diffuse posterior circulation spasm, 03/16 CTH vents incr, EVD dropped to 7, 03/18 CTH incr'd vents, EVD lowered to 5, 03/18 s/p angio w severe posterior circulation spasm 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 and basilar, 10 IA verapamil to L vert, mild b/l ICA spasm, MRI brain patchy areas of restricted diffusion along the posteromedial bilateral cerebellar hemispheres and in the superior anterior left cerebellar hemisphere, 03/21 worsening exam, CTH incr vents, EVD lowered to 0, 03/22 s/p RO VPS (Certas at 2), RF EVD removal, CTH catheter in posn, incr vents, shunt dialed to 1, 03/23 s/p PEG, 04/21 p/w worsening exam (not FC x1d), CTH decr vents, certas dialed to 3, 04/22 CTH vents stable fourth ventricle decreased, 04/23 CTH vents minimally incr'd Patient clinically improving with shunt dialed up, however not yet back to baseline. Plan Tele MRI brain w/wo today Dispo pending mental status PTOT (back to facility, does not need re-eval) Lv Linares MD Cosigned by Alfred Self MD at 04/23/2025 12:42 PM EDT Physical Therapy Physical Therapy Evaluation and Treatment Patient Name: Kimani Cohen Department: [facility] [address] Room: [address] [place] [address] Today's Date: 04/22/2025 Time Calculation Start Time: 1635 Stop Time: 1659 Time Calculation (min): 24 min Assessment/Plan PT Assessment PT Assessment Results: Decreased strength, Decreased endurance, Impaired balance, Decreased mobility, Decreased cognition, Impaired judgement Rehab Prognosis: Fair Barriers to Discharge Home: Physical needs Physical Needs: Stair navigation into home limited by function/safety, In-home setup navigation limited by function/safety, 24hr mobility assistance needed, Ambulating household distances limited by function/safety, 24hr ADL assistance needed, High falls risk due to function or environment Evaluation/Treatment Tolerance: Patient limited by fatigue Medical Staff Made Aware: Yes Strengths: Housing layout, Support of Caregivers, Premorbid level of function Barriers to Participation: Comorbidities End of Session Communication: Bedside nurse Assessment Comment: Patient was able to follow single step commands with ~2 second delay ~50% of the time with improvement when at the edge of the bed. Patient required significant assistance to get to the edge of the bed, but only required [place] to maintain sitting up. Patient stood twice this session. THe first stand was by PT demonstrating the hug technique with bilateral knee blocking. The second stand was performed by spouse with PT CGA and cuing on safe technique as he reports assisting with transfers at SNF. Patient stood for ~15-20 seconds total. Patient remains appropriate for rehab at this time and family reports wanting to return to the same facility. PT to follow up as able and appropriate End of Session Patient Position: Bed, 2 rail up, Alarm off, not on at start of session IP OR SWING BED PT PLAN Inpatient or Swing Bed: Inpatient PT Plan Treatment/Interventions: Bed mobility, Transfer training, Gait training, Stair training, Balance training, Neuromuscular re-education, Neurodevelopmental intervention, Strengthening, Endurance training, Range of motion, Therapeutic exercise, Therapeutic activity, Home exercise program PT Plan: Ongoing PT PT Frequency for Current Admission: 4 times per week during this acute inpatient hospitalization PT Discharge Recommendations: Moderate intensity level of continued care PT Recommended Transfer Status: Assist x2 PT - OK to Discharge: Yes Subjective PT Visit Info: PT Received On: 04/22/25 General Visit Information: General Reason for Referral: Patient transferred from [facility] for 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 at bedside who is primary caregiver repots that patient has been doing well with therapy since discharge until a few days ago when he noticed her overall mental status was declining. She was not progressing with therapy as well over the past few days and yesterday needed persistence to follow commands. shunt adjusted Past Medical History Relevant to Rehab: AVM (arteriovenous malformation), Hydrocephalus with VPS Family/Caregiver Present: Yes Caregiver Feedback: present and supportive Prior to Session Communication: Bedside nurse Patient Position Received: Bed, 2 rail up, Alarm off, not on at start of session General Comment: on board for conservative therapy. Patient moving legs spontaneously and following single step commands. Home Living: Home Living Type of Home: House Lives With: Spouse Home Adaptive Equipment: None Home Layout: One level, Able to live on main level with bedroom/bathroom Home Access: Stairs to enter with rails Entrance Stairs-Number of Steps: 3 Bathroom Shower/Tub: Tub/shower unit Home Living Comments: Spouse and family can help with cooking, cleaning, laundry, and grocery shopping Prior Level of Function: Prior Function Per Pt/Caregiver Report Level of [place]: Independent with ADLs and functional transfers, Independent with homemaking with ambulation ADL Assistance: Independent Homemaking Assistance: Independent Ambulatory Assistance: Independent Prior Function Comments: Prior to last admission, patient was independent in home and community. At the SNF following last discharge, she was working on walking with 2 caregivers short distances. Precautions: Precautions Medical Precautions: Fall precautions Date/Time Vitals Session Patient Position Pulse Resp SpO2 BP MAP (mmHg) 04/22/25 1549 -- -- 93 16 95 % 96/68 77 Treatments: Please see Functional Assessment for specifics regarding treatment during this evaluation. Patient given education on how to safely mobilize with regard to equipment and precautions. Extra repetitions and cuing given to maximize independence. Objective Pain: Pain Assessment Pain Assessment: [place] FACES [place] FACES Pain Rating: No hurt Cognition: Cognition Overall Cognitive Status: Impaired Arousal/Alertness: Delayed responses to stimuli Orientation Level: Unable to assess Following Commands: Follows one step commands with increased time Safety Judgment: Decreased awareness of need for assistance General Assessments: Activity Tolerance Endurance: Decreased tolerance for upright activites Sensation Light Touch: Not tested Strength Strength Comments: Spontaneously moving LE in bed. Strength Strength Comments: Spontaneously moving LE in bed. Coordination Movements are Fluid and Coordinated: No Postural Control Postural Control: Impaired Static Sitting Balance Static Sitting-Balance Support: Feet supported, Bilateral upper extremity supported Static Sitting-Level of Assistance: Minimum assistance Static Standing Balance Static Standing-Balance Support: Bilateral upper extremity supported Static Standing-Level of Assistance: Maximum assistance Functional Assessments: Bed Mobility Bed Mobility: Yes Bed Mobility 1 Bed Mobility 1: Supine to sitting Level of Assistance 1: Maximum assistance Bed Mobility Comments 1: Patient assisted with legs Bed Mobility 2 Bed Mobility 2: Sitting to supine Level of Assistance 2: Dependent, +2 Bed Mobility Comments 2: full support Transfers Transfer: Yes Transfer 1 Transfer From 1: Sit to, Stand to Transfer to 1: Sit, Stand Technique 1: Sit to stand, Stand to sit Transfer Level of Assistance 1: Maximum assistance Trials/Comments 1: 2 stands. 1 by PT with family training. 1 by with PT CGA. knees blocked. ~5-10 seconds standing per stand. Extremity/Trunk Assessments: RLE RLE : Within Functional Limits LLE LLE : Within Functional Limits Outcome Measures: [facility] Basic Mobility Turning from your back to your side while in a flat bed without using bedrails: Total Moving from lying on your back to sitting on the side of a flat bed without using bedrails: A lot Moving to and from bed to chair (including a wheelchair): Total Standing up from a chair using your arms (e.g. wheelchair or bedside chair): A lot To walk in hospital room: Total Climbing 3-5 steps with railing: Total Basic Mobility - Total Score: 8 Care Plan Goals: Encounter Problems Encounter Problems (Active) PT Problem Patient is able to perform sit to stand requiring minimal assist or less (Progressing) Start: 04/22/25 Expected End: 05/06/25 Patient able to maintain sitting edge of bed for 10 minutes requiring contact guard assist or less (Progressing) Start: 04/22/25 Expected End: 05/06/25 Patient is able to transfer from bed to recliner/commode requiring moderate or less assist (Not Progressing) Start: 04/22/25 Expected End: 05/06/25 Education Documentation Home Exercise Program, taught by Alfred Coulter, PT at 04/22/2025 5:27 PM. Learner: Family, Patient Readiness: Acceptance Method: Explanation, Demonstration Response: Needs Reinforcement Comment: Goals of PT, safety with mobility Precautions, taught by Alfred Coulter PT at 04/22/2025 5:27 PM. Learner: Family, Patient Readiness: Acceptance Method: Explanation, Demonstration Response: Needs Reinforcement Comment: Goals of PT, safety with mobility Body Mechanics, taught by Alfred Coulter PT at 04/22/2025 5:27 PM. Learner: Family, Patient Readiness: Acceptance Method: Explanation, Demonstration Response: Needs Reinforcement Comment: Goals of PT, safety with mobility Mobility Training, taught by Alfred Coulter PT at 04/22/2025 5:27 PM. Learner: Family, Patient Readiness: Acceptance Method: Explanation, Demonstration Response: Needs Reinforcement Comment: Goals of PT, safety with mobility Pharmacy Medication History Review Kimani Cohen is a 24 y.o. female admitted for Altered mental status, unspecified altered mental status type. Pharmacy reviewed the patient's [id number] medications and allergies for accuracy. Medications ADDED: None Medications CHANGED: Carboxymethylcellulose Ophthalmic (change in strength, directions) Lorazepam (change in dose) Medications REMOVED: None The list below reflects the updated BEHAVIORAL HEALTH SPECIALIST list. Prior to Admission Medications Prescriptions Last Dose Informant LORazepam (Ativan) 1 mg tablet Other Sig: Take 1 tablet (1 mg) by g-tube every 6 hours if needed (nausea/vomiting and tachycardia) for up to 14 days. Patient taking differently: Take 0.5-1 tablets (0.5-1 mg) by g-tube every 6 hours if needed for anxiety. 0.5 mg for mild anxiety, 1 mg for severe anxiety acetaminophen (Tylenol) 650 mg/20.3 mL solution oral liquid Other Sig: Take 20.3 mL (650 mg) by g-tube every 6 hours if needed for pain. amantadine (Symmetrel) 50 mg/5 mL solution Other Sig: Take 10 mL (100 mg) by g-tube every 12 hours. Assess need for medication often while assessing patient's alert and responsiveness. bisacodyl (Dulcolax) 10 mg suppository Other Sig: Insert 1 suppository (10 mg) into the rectum once daily as needed for constipation. carboxymethylcellulose PF 1 % ophthalmic solution Other Sig: Administer 1 drop into both eyes once daily as needed for dry eyes. esomeprazole (NexIUM) 40 mg packet Other Sig: Take 40 mg by mouth 2 times a day. Via Peg Tube heparin sodium,porcine (heparin, porcine,) 5,000 unit/mL injection Other Sig: Inject 1 mL (5,000 Units) under the skin every 8 hours. Until ambulatory insulin lispro 100 unit/mL injection Other Sig: Inject 0-5 Units under the skin every 6 hours. Take as directed per insulin instructions. levETIRAcetam (Keppra) 500 mg tablet Other Sig: Take 1 tablet (500 mg) by g-tube 2 times a day. CONTINUE UNTIL INSTRUCTED TO STOP BY NEUROSURGERY OR NEUROLOGY. PLEASE DISCHARGE WITH SCRIPT WITH 6 REFILLS metoclopramide (Reglan) 5 mg tablet Other Sig: Take 1 tablet (5 mg) by g-tube 3 times a day. Stop medication on 04/29/2025. ondansetron (Zofran) 4 mg tablet Other Sig: Take 1 tablet (4 mg) by g-tube every 6 hours if needed for nausea or vomiting. Not on SNF list of medications polyethylene glycol (Glycolax, Miralax) 17 gram packet Other Sig: Take 17 g by g-tube 2 times a day. Not on SNF list of medications sennosides-docusate sodium (Britany-Colace) 8.6-50 mg tablet Other Sig: Take 2 tablets by g-tube 2 times a day. Not on SNF list of medications vitamin B complex-vitamin C-folic acid (Nephrocaps) 1 mg capsule Other Sig: Take 1 capsule by g-tube once daily in the morning. Take before meals. Facility-Administered Medications: None The list below reflects the updated allergy list. Please review each documented allergy for additional clarification and justification. Allergies Reviewed by Yue Orozco RN on 04/21/2025 No Known Allergies Patient was unable to be assessed for M2B at discharge. Sources[phone] (available under Media) [facility] Everywhere Chart Review Medication Dispense History Additional Comments: None to note [facility] Transitions of Care Pharmacist 04/22/25 Secure Chat preferred If no response call [phone] or [employer] Med Rec Images from the original note were not included. Department of Neurosurgery Daily Progress Note Patient Name: Kimani Cohen Date: 04/22/25 Subjective No overnight events noted. Patient had Certas dialed down to 3 last night 04/21. Patient's father in room and stated patient has been voiding and BM without difficulties. Patient had BM on 04/21. Objective Vital Signs BP 106/73 (BP Location: Right arm, Patient Position: Lying) Pulse (!) 120 Temp 35.7 C (96.3 F) (Temporal) Resp 17 Ht 1.6 m (5' 2.99) Wt (!) 44 kg (97 lb) SpO2 97% BMI 17.19 kg/m Physical Exam Constitutional: Awake, calm. Eyes: PERRL, Left upward gaze ENMT: Moist mucous membranes, no apparent injuries or lesions. Cardiovascular: Normal rate and regular rhythm. 2+ equal pulses of the distal extremities. Respiratory/Thorax: CTAB, regular respirations on RA. Good symmetric chest expansion. Gastrointestinal: Abdomen soft, flat, non tender PEG site c/d/i Genitourinary: voids Neurological: Patient awake, nonverbal, Left upward gaze noted. Patient followed commands on left side upper and lower Patient moves right side spontaneously Face symmetric, Facial SILT No clonus, neg Mercado Psychological: Appropriate mood. Skin: Warm and dry. Diagnostics Results for orders placed or performed during the hospital encounter of 04/21/25 (from the past 24 hours) Blood Gas Venous Full Panel Unsolicited Result Value Ref Range POCT pH, Venous 7.50 (H) 7.33 - 7.43 pH POCT pCO2, Venous 49 41 - 51 mm Hg POCT pO2, Venous 61 (H) 35 - 45 mm Hg POCT SO2, Venous 92 (H) 45 - 75 % POCT Oxy Hemoglobin, Venous 89.4 (H) 45.0 - 75.0 % POCT Hematocrit Calculated, Venous 41.0 36.0 - 46.0 % POCT Sodium, Venous 133 (L) 136 - 145 mmol/L POCT Potassium, Venous 4.5 3.5 - 5.3 mmol/L POCT Chloride, Venous 96 (L) 98 - 107 mmol/L POCT Ionized Calicum, Venous 1.22 1.10 - 1.33 mmol/L POCT Glucose, Venous 113 (H) 74 - 99 mg/dL POCT Lactate, Venous 1.2 0.4 - 2.0 mmol/L POCT Base Excess, Venous 13.1 (H) -2.0 - 3.0 mmol/L POCT HCO3 Calculated, Venous 38.2 (H) 22.0 - 26.0 mmol/L POCT Hemoglobin, Venous 13.5 12.0 - 16.0 g/dL POCT Anion Gap, Venous 3.0 (L) 10.0 - 25.0 mmol/L Patient Temperature 37.0 degrees Celsius CBC and Auto Differential Result Value Ref Range WBC 6.2 4.4 - 11.3 x10*3/uL nRBC 0.0 0.0 - 0.0 /100 WBCs RBC 4.49 4.00 - 5.20 x10*6/uL Hemoglobin 12.9 12.0 - 16.0 g/dL Hematocrit 37.8 36.0 - 46.0 % MCV 84 80 - 100 fL MCH 28.7 26.0 - 34.0 pg MCHC 34.1 32.0 - 36.0 g/dL RDW 12.6 11.5 - 14.5 % Platelets 313 150 - 450 x10*3/uL Neutrophils % 73.3 40.0 - 80.0 % Immature Granulocytes %, Automated 1.6 (H) 0.0 - 0.9 % Lymphocytes % 15.4 13.0 - 44.0 % Monocytes % 8.7 2.0 - 10.0 % Eosinophils % 0.5 0.0 - 6.0 % Basophils % 0.5 0.0 - 2.0 % Neutrophils Absolute 4.58 1.20 - 7.70 x10*3/uL Immature Granulocytes Absolute, Automated 0.10 0.00 - 0.70 x10*3/uL Lymphocytes Absolute 0.96 (L) 1.20 - 4.80 x10*3/uL Monocytes Absolute 0.54 0.10 - 1.00 x10*3/uL Eosinophils Absolute 0.03 0.00 - 0.70 x10*3/uL Basophils Absolute 0.03 0.00 - 0.10 x10*3/uL Comprehensive metabolic panel Result Value Ref Range Glucose 102 (H) 74 - 99 mg/dL Sodium 136 136 - 145 mmol/L Potassium 4.3 3.5 - 5.3 mmol/L Chloride 94 (L) 98 - 107 mmol/L Bicarbonate 34 (H) 21 - 32 mmol/L Anion Gap 12 10 - 20 mmol/L Urea Nitrogen 12 6 - 23 mg/dL Creatinine 0.35 (L) 0.50 - 1.05 mg/dL eGFR >90 >60 mL/min/1.73m*2 Calcium 9.8 8.6 - 10.6 mg/dL Albumin 3.7 3.4 - 5.0 g/dL Alkaline Phosphatase 90 33 - 110 U/L Total Protein 7.6 6.4 - 8.2 g/dL AST 24 9 - 39 U/L Bilirubin, Total 0.3 0.0 - 1.2 mg/dL ALT 35 7 - 45 U/L Magnesium Result Value Ref Range Magnesium 2.43 (H) 1.60 - 2.40 mg/dL Protime-INR Result Value Ref Range Protime 12.6 (H) 9.8 - 12.4 seconds INR 1.1 0.9 - 1.1 Type And Screen Result Value Ref Range ABO TYPE B Rh TYPE POS ANTIBODY SCREEN NEG C-reactive protein Result Value Ref Range C-Reactive Protein 2.15 (H) <1.00 mg/dL Sedimentation rate, automated Result Value Ref Range Sedimentation Rate 33 (H) 0 - 20 mm/h Human Chorionic Gonadotropin, Serum Quantitative Result Value Ref Range HCG, Beta-Quantitative <3 <5 mIU/mL POCT GLUCOSE Result Value Ref Range POCT Glucose 127 (H) 74 - 99 mg/dL POCT GLUCOSE Result Value Ref Range POCT Glucose 151 (H) 74 - 99 mg/dL Imaging No results found. Cardiology, Vascular, and Other Imaging CT transfer of outside films Result Date: 04/15/2025 Outside images for comparison or treatment purposes, not interpreted by Radiologists. Current Medications Scheduled medications Scheduled Medications[1] Continuous medications Continuous Medications[2] PRN medications PRN Medications[3] Assessment/Plan Kimani is a 24 y.o. female with H/o migraines ow no sig pmhx, 03/04/2025 p/w WHOL, s/p intubated for declining exam, s/p RF EVD at 10, 9/11 s/p angio SM4 AVM w b/l PICA, AICA, R SCA feeders and drainage into torcula, intranidal aneurysms off R PICA s/p glue embo of R PICA w/ intranidal aneurysms and partial nidus embo, 03/04 s/p decompressive SOC and C1 lami, 03/05 CTH incr vents, 03/05 s/p angio L PICA and R SCA feeder glue embo, XperCT stable, 03/06 CTH slight decr vents, developing L cerebellar infarct o/w stable, CT PE neg for PE, aspiration pneumonitis, 03/08 CTH evolving posterior fossa edema/infarct, increased vents, EVD dropped from 12 to 10, 03/12 DVT BUE US R basilic SVT, 03/14 CTH decr vents, decr edema, CTA stable AVM, MRI brain posterior fossa subacute blood, w diffusion restriction in medial cerebellum, 03/15 s/p SOC for AVM resection, s/p angio no residual AVM, diffuse posterior circulation spasm, 03/16 CT vents incr, EVD dropped to 7, 03/18 CT incr'd vents, EVD lowered to 5, 03/18 s/p angio w severe posterior circulation spasm 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 and basilar, 10 IA verapamil to L vert, mild b/l ICA spasm, MRI brain patchy areas of restricted diffusion along the posteromedial bilateral cerebellar hemispheres and in the superior anterior left cerebellar hemisphere, 03/21 worsening exam, [facility] incr vents, EVD lowered to 0, 03/22 s/p RO VPS (Certas at 2), RF EVD removal, [facility] catheter in posn, incr vents, shunt dialed to 1, shunt series catheter distal to valve with sharp turn c/f kink, 03/23 s/p PEG, 04/21 p/w worsening exam (not FC x1d), [facility] decr vents. Patient presenting with decline in neuro status over the past few days. Imaging at OSH shows decreased ventricular caliber. Patient certas shunt currently at 1 and likely being over drained. # Hx Hydrocephalus (S/p RO DOCUMENT CLERK shunt insertion 03/22) - Neuro check q4hrs - Monitor VS/pulse ox [id number] - Monitor AM CBC/RFP -Certas dialed down to 3 - CT head this PM 04/22 # Hx of dysphagia - Continue Isosource 1.5 TF @ 45cc/hr - Consult Organ Teacher Prophylaxis: - DVT: SQ heparin [id number], SCDs, encourage ambulation - Encourage IS x10 every hour while awake FEN/GI: - Monitor/replete electrolytes PRN - IVF if NPO or hemodynamically unstable - GI protection with Pepcid 20mg BID. - Bowel regimen: Scheduled Miralax and pericolace daily Disposition: PT/OT to see today laz eventual dispo recs. Follow up appointment will be scheduled for patient prior to discharge,. Patient and plan discussed with chief neurosurgery resident, Dr. Ledesma, and Dr. Clair Flores CNP Neurologic Surgery [place] Team Pager #[phone] Total face to face time spent with patient/family of > 30 minutes, with >50% of the time spent discussing plan of care/management, counseling/educating on disease processes, explaining results of diagnostic testing. [1] acetaminophen, 650 mg, oral, q6h [place] esomeprazole, 40 mg, oral, BID famotidine, 20 mg, intravenous, q12h [place] heparin (porcine), 5,000 Units, subcutaneous, q8h insulin lispro, 0-5 Units, subcutaneous, q6h polyethylene glycol, 17 g, oral, Daily sennosides-docusate sodium, 2 tablet, oral, BID vitamin B complex-vitamin C-folic acid, 1 capsule, g-tube, Daily before breakfast [2] [3] PRN medications: dextrose, dextrose, glucagon, glucagon, naloxone Images from the original note were not included. Emergency Department Transition of Care Note Signout I received Kimani Cohen in signout from KRISTINA James. Please see the ED Provider Note for all HPI, PE and MDM up to the time of signout at 1500. This is in addition to the primary record. In brief Kimani Cohen is an 24 y.o. female presenting for DOCUMENT CLERK shunt concern. Imaging from the outside hospital was concerning for over shunting with slits on CT scan. At the time of signout we were awaiting: Neurosurgery recommendations and final disposition. ED Course & Medical Decision Making Medical Decision Making: Under my care, the patient was reevaluated and is resting comfortably in bed in no acute distress. Neurosurgery was able to evaluate the patient and is recommending admission to the regular nursing floor and a bed request was placed. The patient was admitted in stable condition. ED Course: Diagnoses as of 04/21/25 1820 Altered mental status, unspecified altered mental status type S/P DOCUMENT CLERK shunt Disposition As a result of their workup, the patient will require admission to the hospital. The patient was informed of her diagnosis. The patient was given the opportunity to ask questions and I answered them. The patient agreed to be admitted to the hospital. Procedures Procedures Patient seen and discussed with ED attending physician. Colin Blevins DO Emergency Medicine Cosigned by Chago Gauthier MD at 04/21/2025 6:59 PM EDT Associated attestation - Chago Gauthier MD - 04/21/2025 6:59 PM EDT I saw patient with resident and agree with note as written. documented in this encounter [facility] [place] Work Phone: 04-25-2025 Plan of care note Problem: Pain - Adult Goal: Verbalizes/displays adequate comfort level or baseline comfort level Outcome: Progressing Problem: Safety - Adult Goal: Free from fall injury Outcome: Progressing Problem: Discharge Planning Goal: Discharge to home or other facility with appropriate resources Outcome: Progressing Problem: Chronic Conditions and Co-morbidities Goal: Patient's chronic conditions and co-morbidity symptoms are monitored and maintained or improved Outcome: Progressing Problem: Nutrition Goal: Nutrient intake appropriate for maintaining nutritional needs Outcome: Progressing Problem: Skin Goal: Decreased wound size/increased tissue granulation at next dressing change Outcome: Progressing Flowsheets (Taken 04/25/20252138) Decreased wound size/increased tissue granulation at next dressing change: Promote sleep for wound healing Goal: Participates in plan/prevention/treatment measures Outcome: Progressing Goal: Prevent/manage excess moisture Outcome: Progressing Goal: Prevent/minimize sheer/friction injuries Outcome: Progressing Goal: Promote/optimize nutrition Outcome: Progressing Goal: Promote skin healing Outcome: Progressing Problem: Fall/Injury Goal: Not fall by end of shift Outcome: Progressing Goal: Be free from injury by end of the shift Outcome: Progressing Goal: Verbalize understanding of personal risk factors for fall in the hospital Outcome: Progressing Goal: Verbalize understanding of risk factor reduction measures to prevent injury from fall in the home Outcome: Progressing Goal: Use assistive devices by end of the shift Outcome: Progressing Goal: Pace activities to prevent fatigue by end of the shift Outcome: Progressing [facility] Work Phone: 04-25-2025 Miscellaneous Notes Problem: Pain - Adult Goal: Verbalizes/displays adequate comfort level or baseline comfort level Outcome: Progressing Problem: Safety - Adult Goal: Free from fall injury Outcome: Progressing Problem: Discharge Planning Goal: Discharge to home or other facility with appropriate resources Outcome: Progressing Problem: Chronic Conditions and Co-morbidities Goal: Patient's chronic conditions and co-morbidity symptoms are monitored and maintained or improved Outcome: Progressing Problem: Nutrition Goal: Nutrient intake appropriate for maintaining nutritional needs Outcome: Progressing Problem: Skin Goal: Decreased wound size/increased tissue granulation at next dressing change Outcome: Progressing Flowsheets (Taken 04/25/20252138) Decreased wound size/increased tissue granulation at next dressing change: Promote sleep for wound healing Goal: Participates in plan/prevention/treatment measures Outcome: Progressing Goal: Prevent/manage excess moisture Outcome: Progressing Goal: Prevent/minimize sheer/friction injuries Outcome: Progressing Goal: Promote/optimize nutrition Outcome: Progressing Goal: Promote skin healing Outcome: Progressing Problem: Fall/Injury Goal: Not fall by end of shift Outcome: Progressing Goal: Be free from injury by end of the shift Outcome: Progressing Goal: Verbalize understanding of personal risk factors for fall in the hospital Outcome: Progressing Goal: Verbalize understanding of risk factor reduction measures to prevent injury from fall in the home Outcome: Progressing Goal: Use assistive devices by end of the shift Outcome: Progressing Goal: Pace activities to prevent fatigue by end of the shift Outcome: Progressing Problem: Pain - Adult Goal: Verbalizes/displays adequate comfort level or baseline comfort level Outcome: Progressing Problem: Safety - Adult Goal: Free from fall injury Outcome: Progressing Problem: Discharge Planning Goal: Discharge to home or other facility with appropriate resources Outcome: Progressing Problem: Chronic Conditions and Co-morbidities Goal: Patient's chronic conditions and co-morbidity symptoms are monitored and maintained or improved Outcome: Progressing Problem: Nutrition Goal: Nutrient intake appropriate for maintaining nutritional needs Outcome: Progressing Problem: Skin Goal: Decreased wound size/increased tissue granulation at next dressing change Outcome: Progressing Goal: Participates in plan/prevention/treatment measures Outcome: Progressing Goal: Prevent/manage excess moisture Outcome: Progressing Goal: Prevent/minimize sheer/friction injuries Outcome: Progressing Goal: Promote/optimize nutrition Outcome: Progressing Goal: Promote skin healing Outcome: Progressing Problem: Fall/Injury Goal: Not fall by end of shift Outcome: Progressing Goal: Be free from injury by end of the shift Outcome: Progressing Goal: Verbalize understanding of personal risk factors for fall in the hospital Outcome: Progressing Goal: Verbalize understanding of risk factor reduction measures to prevent injury from fall in the home Outcome: Progressing Goal: Use assistive devices by end of the shift Outcome: Progressing Goal: Pace activities to prevent fatigue by end of the shift Outcome: Progressing The patient's goals for the shift include The clinical goals for the shift include pt will remian safer and free from injury. The clinical goals for the shift include Patient will remain safe by the end of the shift Over the shift, the patient did make progress toward the following goals. Barriers to progression include Problem: Chronic Conditions and Co-morbidities Goal: Patient's chronic conditions and co-morbidity symptoms are monitored and maintained or improved Outcome: Progressing . Recommendations to address these barriers include Follow plan of care. The clinical goals for the shift include patient will remain safe through the night, will maintain neuro exam Patients neuro exam unchanged overnight. Went for CT this morning. at bedside. Problem: Pain - Adult Goal: Verbalizes/displays adequate comfort level or baseline comfort level Outcome: Progressing Problem: Safety - Adult Goal: Free from fall injury Outcome: Progressing Problem: Skin Goal: Decreased wound size/increased tissue granulation at next dressing change Outcome: Progressing Flowsheets (Taken 04/23/2025456) Decreased wound size/increased tissue granulation at next dressing change: Promote sleep for wound healing Goal: Participates in plan/prevention/treatment measures Outcome: Progressing Flowsheets (Taken 04/23/2025456) Participates in plan/prevention/treatment measures: Elevate heels Goal: Prevent/manage excess moisture Outcome: Progressing Flowsheets (Taken 04/23/2025456) Prevent/manage excess moisture: Cleanse incontinence/protect with barrier cream Goal: Prevent/minimize sheer/friction injuries Outcome: Progressing Flowsheets (Taken 04/23/2025456) Prevent/minimize sheer/friction injuries: Turn/reposition every 2 hours/use positioning/transfer devices Use pull sheet Goal: Promote/optimize nutrition Outcome: Progressing Flowsheets (Taken 04/23/2025456) Promote/optimize nutrition: Monitor/record intake including meals Goal: Promote skin healing Outcome: Progressing Flowsheets (Taken 04/23/2025456) Promote skin healing: Turn/reposition every 2 hours/use positioning/transfer devices Problem: Fall/Injury Goal: Not fall by end of shift Outcome: Progressing The patient's goals for the shift include The clinical goals for the shift include Partient safety will be maintained Problem: Skin Goal: Decreased wound size/increased tissue granulation at next dressing change Outcome: Progressing Flowsheets (Taken 04/22/2025838) Decreased wound size/increased tissue granulation at next dressing change: Protective dressings over bony prominences Problem: Skin Goal: Participates in plan/prevention/treatment measures Outcome: Progressing Flowsheets (Taken 04/22/2025838) Participates in plan/prevention/treatment measures: Elevate heels Problem: Skin Goal: Prevent/manage excess moisture Outcome: Progressing Flowsheets (Taken 04/22/2025838) Prevent/manage excess moisture: Cleanse incontinence/protect with barrier cream Monitor for/manage infection if present Follow provider orders for dressing changes Problem: Skin Goal: Prevent/minimize sheer/friction injuries Outcome: Progressing Flowsheets (Taken 04/22/2025 0839) Prevent/minimize sheer/friction injuries: Turn/reposition every 2 hours/use positioning/transfer devices Use pull sheet Problem: Skin Goal: Prevent/minimize sheer/friction injuries Outcome: Progressing Flowsheets (Taken 04/22/2025 0839) Prevent/minimize sheer/friction injuries: Turn/reposition every 2 hours/use positioning/transfer devices Use pull sheet Problem: Skin Goal: Promote/optimize nutrition Outcome: Progressing Flowsheets (Taken 04/22/2025 0839) Promote/optimize nutrition: Assist with feeding Problem: Skin Goal: Promote skin healing Outcome: Progressing Kimani Cohen is a 24 year old female with a past medical history of migraines who previously presented 03/04/2025 with worst headache of life. Hospital course complicated by intubation for declining exam and RF EVD placement. 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 Taken to the OR 03/04 for decompressive SOC and C1 lami followed by return to angio 03/05 for L PICA and R SCA feeder glue embolization. 03/14 MRI brain demonstrated posterior fossa subacute blood, with diffusion restriction in medial cerebellum. Patient again returned to the OR on 03/15 SOC for AVM resection. Post operative angio with no residual AVM, diffuse posterior circulation spasm. Repeat angio 03/18 with severe posterior circulation spasm 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 and basilar, 10 IA verapamil to L vert, mild b/l ICA spasm. Repeat MRI brain with patchy areas of restricted diffusion along the posteromedial bilateral cerebellar hemispheres and in the superior anterior left cerebellar hemisphere. Patient ultimately required RO VPS (Certas at 1) on 03/22 follow by PEG on 03/23. She was discharged to acute rehab 03/31. Patient returned to the [facility] ED 04/21 with decline in neuro status over the past few days. CT head with decreased ventricular caliber. Patient admitted to the neurosurgery service for further workup/management. 04/21 Certas dialed down to 3. 04/23 CTH vents incr, hypotensive in MRI 04/24 CTH min decr vents, certas dialed to 4 04/25 MRI brain stable, no acute infarct 04/26 CTH stable On the day of discharge, the patient was seen and evaluated by the neurosurgery team and deemed suitable for discharge. The patient was given detailed discharge instructions and were scheduled to follow up as an outpatient. Certas Shunt dialed from 1 to 3 documented in this encounter [facility] [place] Work Phone: 04-25-2025 Plan of care note Problem: Pain - Adult Goal: Verbalizes/displays adequate comfort level or baseline comfort level Outcome: Progressing Problem: Safety - Adult Goal: Free from fall injury Outcome: Progressing Problem: Discharge Planning Goal: Discharge to home or other facility with appropriate resources Outcome: Progressing Problem: Chronic Conditions and Co-morbidities Goal: Patient's chronic conditions and co-morbidity symptoms are monitored and maintained or improved Outcome: Progressing Problem: Nutrition Goal: Nutrient intake appropriate for maintaining nutritional needs Outcome: Progressing Problem: Skin Goal: Decreased wound size/increased tissue granulation at next dressing change Outcome: Progressing Goal: Participates in plan/prevention/treatment measures Outcome: Progressing Goal: Prevent/manage excess moisture Outcome: Progressing Goal: Prevent/minimize sheer/friction injuries Outcome: Progressing Goal: Promote/optimize nutrition Outcome: Progressing Goal: Promote skin healing Outcome: Progressing Problem: Fall/Injury Goal: Not fall by end of shift Outcome: Progressing Goal: Be free from injury by end of the shift Outcome: Progressing Goal: Verbalize understanding of personal risk factors for fall in the hospital Outcome: Progressing Goal: Verbalize understanding of risk factor reduction measures to prevent injury from fall in the home Outcome: Progressing Goal: Use assistive devices by end of the shift Outcome: Progressing Goal: Pace activities to prevent fatigue by end of the shift Outcome: Progressing The patient's goals for the shift include The clinical goals for the shift include pt will remian safer and free from injury. [facility] [place] 04-24-2025 Plan of care note The clinical goals for the shift include Patient will remain safe by the end of the shift Over the shift, the patient did make progress toward the following goals. Barriers to progression include Problem: Chronic Conditions and Co-morbidities Goal: Patient's chronic conditions and co-morbidity symptoms are monitored and maintained or improved Outcome: Progressing . Recommendations to address these barriers include Follow plan of care. [facility] [place] 04-24-2025 Procedure note Certas Shunt Dial Certas shunt was verified to be at 3 with the Codman Certas and [facility] Certas Plus shunt program management specialist. The Shunt was dialed to 4 with the Certas Plus shunt program management specialist. The setting was checked with the Certas Shunt program management specialist and the Certas shunt program management specialist plus to be at 4. Patient tolerated the procedure well. Laura Colunga MD Cosigned by Alfred Self MD at 04/26/2025 12:04 PM EST [facility] [place] Work Phone: 04-24-2025 Procedure note Certas Shunt Dial Certas shunt was verified to be at 3 with the Codman Certas and Codman Certas Plus shunt program management specialist. The Shunt was dialed to 4 with the Certas Plus shunt program management specialist. The setting was checked with the Certas Shunt program management specialist and the Certas shunt program management specialist plus to be at 4. Patient tolerated the procedure well. Laura Colunga MD Cosigned by Alfred Self MD at 04/26/2025 12:04 PM EST documented in this encounter [facility] [place] Work Phone: 04-23-2025 Plan of care note The clinical goals for the shift include patient will remain safe through the night, will maintain neuro exam Patients neuro exam unchanged overnight. Went for CT this morning. at bedside. Problem: Pain - Adult Goal: Verbalizes/displays adequate comfort level or baseline comfort level Outcome: Progressing Problem: Safety - Adult Goal: Free from fall injury Outcome: Progressing Problem: Skin Goal: Decreased wound size/increased tissue granulation at next dressing change Outcome: Progressing Flowsheets (Taken 04/23/2025456) Decreased wound size/increased tissue granulation at next dressing change: Promote sleep for wound healing Goal: Participates in plan/prevention/treatment measures Outcome: Progressing Flowsheets (Taken 04/23/2025456) Participates in plan/prevention/treatment measures: Elevate heels Goal: Prevent/manage excess moisture Outcome: Progressing Flowsheets (Taken 04/23/2025456) Prevent/manage excess moisture: Cleanse incontinence/protect with barrier cream Goal: Prevent/minimize sheer/friction injuries Outcome: Progressing Flowsheets (Taken 04/23/2025456) Prevent/minimize sheer/friction injuries: Turn/reposition every 2 hours/use positioning/transfer devices Use pull sheet Goal: Promote/optimize nutrition Outcome: Progressing Flowsheets (Taken 04/23/2025456) Promote/optimize nutrition: Monitor/record intake including meals Goal: Promote skin healing Outcome: Progressing Flowsheets (Taken 04/23/2025456) Promote skin healing: Turn/reposition every 2 hours/use positioning/transfer devices Problem: Fall/Injury Goal: Not fall by end of shift Outcome: Progressing [facility] 04-22-2025 Consult note Associated Order (s): IP CONSULT TO NUTRITION SERVICES Nutrition Note Pt is a 24 y.o. year old female patient admitted on 04/21/2025 - referred to Nutrition Services for Admission nursing screening (home tube feed). Nutrition Assessment Recent Events: Pt transferred from [place] for 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 Noted pt was doing well until change in neuro exam (~04/21) PMH: 03/04 s/p decompressive SOC and C1 lami, 03/15 s/p SOC for AVM resection, 03/18 s/p angio w severe posterior circulation spasm, 03/23 s/p PEG Food and Nutrient History: Energy Intake: Good > 75 % Food and Nutrient History: Pt was followed closely by this service during previous admission - last seen on 03/31: noted difficulty reaching goal rate throughout admission d/t emesis (took a long period of time to determine if it was medication, procedure, tube feed, slowed gastric emptying related) - on last follow up it was reported that pt was tolerating goal TF rate of Isosource 1.5 @ 45ml/hr with the addition of Reglan. She was discharged same day. Met with pt's family today - mentioned that she has been receiving Jevity 1.5 @ 45ml/hr - tolerating well. Noted she continues to receive Reglan. Explained she needs to have her TF paused for 5-10minutes while meds are provided. Mentioned that she still needs lower water flushes. Anthropometrics: Weight: (!) 44 kg (97 lb) Height: 1.6 m (5' 2.99) BMI: Body mass index is 17.19 kg/m . Desirable Body Weight: 52.3 kg, % of Desirable BW: 84 % Adjusted Body Weight: Anthropometric History: Wt Readings from Last 6 Encounters: 04/21/25 (!) 44 kg (97 lb) 03/26/25 (!) 43.7 kg (96 lb 5.5 oz) 03/03/25 50 kg (110 lb 3.7 oz) Weight Change: Weight History / % Weight Change: Pt had lost a significant amount of weight during previous admission; however, appears her weight has remained stable since. So she did lose >5% in a month, but has maintained since being able to tolerate feeds Significant Weight Loss: Yes Interpretation of Weight Loss: >5% in 1 month Nutrition Focused Physical Findings: Assessment Status: Defer all Defer Reason: visual performed given multiple family in room - visually severe findings, but family noted thin at baseline Estimated Energy Needs: Total Energy Needs ~4293-8060 kCal/24 hrs Method for Estimating Needs: 35kcal/kg per act wt Estimated Protein Needs: Total Protein Needs 60-70 g/24 hrs Method for Estimating Needs: per IBW Estimated Fluid Needs: Total Fluid Needs per team mL/24 hrs Nutrition Meds/I&O/Pertinent Lab Results Scheduled medications Scheduled Medications[1] Last BM Date: 04/21/25 Dietary Orders (From admission, onward) Start Ordered 04/22/25 0958 Enteral feeding with NPO Isosource 1.5; 150; Water; Bottled water; Every 6 hours Diet effective now Question Answer Comment Tube feeding formula: Isosource 1.5 Administration method: Continuous Initial Rate (mL/hr): 45 Goal rate (mL/hr) (if no titration enter initial rate as goal rate): 45 Tube feeding flush (mL): 150 Flush type: Water Water type: Bottled water Flush frequency: Every 6 hours 04/22/25 1002 04/21/252207 May Not Participate in Room Service ( ROOM SERVICE MAY NOT PARTICIPATE) Once Question: . Answer: Yes 04/21/252206 CBC Trend: Results from last 7 days Lab Units 04/22/25 0757 04/21/25 1356 WBC AUTO x10*3/uL 4.7 6.2 RBC AUTO x10*6/uL 4.39 4.49 HEMOGLOBIN g/dL 12.8 12.9 HEMATOCRIT % 39.4 37.8 MCV fL 90 84 PLATELETS AUTO x10*3/uL 294 313 , BMP Trend: Results from last 7 days Lab Units 04/22/25 0757 04/21/25 1356 GLUCOSE mg/dL 151* 102* CALCIUM mg/dL 9.6 9.8 SODIUM mmol/L 137 136 POTASSIUM mmol/L 4.0 4.3 CO2 mmol/L 32 34* CHLORIDE mmol/L 94* 94* BUN mg/dL 15 12 CREATININE mg/dL 0.41* 0.35* , A1C:No results found for: HGBA1C, BG POCT trend: Results from last 7 days Lab Units 04/22/25 1233 04/22/25 0633 04/22/25 0009 POCT GLUCOSE mg/dL 112* 151* 127* , Renal Lab Trend: Results from last 7 days Lab Units 04/22/25 0757 04/21/25 1356 POTASSIUM mmol/L 4.0 4.3 PHOSPHORUS mg/dL 4.0 -- SODIUM mmol/L 137 136 MAGNESIUM mg/dL -- 2.43* EGFR mL/min/1.73m*2 >90 >90 BUN mg/dL 15 12 CREATININE mg/dL 0.41* 0.35* Nutrition Diagnosis Malnutrition Diagnosis - Moderate malnutrition related to acute disease or injury (improved from previous diagnosis)) Status of the malnutrition diagnosis is New. Moderate malnutrition related to acute disease or injury (improved from previous diagnosis))related to previous prolonged hospitalization with inadequate intake d/t TF intolerance as evidenced by >5% wt loss in 1 mo (now stable), visually with severe muscle wasting and fat loss. Additional Assessment Information: Nutrition status improving - will continue to improve as she is tolerating TF Nutrition Interventions/Recommendations Nutrition Prescription: Nutrition prescription for enteral nutrition Individualized Nutrition Prescription Provided for: Per family request, do not recommend to initiate TF while admitted since we do not carry Jevity 1.5. If she is to be admitted longer than 24-48hrs, then Isosource 1.5 @ 45ml/hr would be appropriate. Enteral Recommendations for Homegoing/Discharge: As pt is maintaining weight while receiving Jevity 1.5 @ 45ml/hr, recommend to continue outpatient. If she begins to lose weight on this or is only maintiaining, then would recommend to increase to 50ml/hr. Enteral Intake: Management of delivery rate of enteral nutrition Goal: 1620kcals and 73g pro Education Documentation No documentation found. Nutrition Monitoring and Evaluation Anthropometric Measurements Monitoring: Body Weight: - Body weight - Maintain stable weight and Body weight - Promote weight congregation Nutritional Goal Status: New goal(s) identified Follow Up: Time spent this visit was 60 minutes. Shawanda Frankel RDN, MARY [1] acetaminophen, 650 mg, g-tube, q6h [place] famotidine, 40 mg, g-tube, BID fluconazole, 200 mg, g-tube, Daily heparin (porcine), 5,000 Units, subcutaneous, q8h insulin lispro, 0-5 Units, subcutaneous, q6h metoprolol tartrate, 75 mg, g-tube, BID [START ON 04/23/2025] polyethylene glycol, 17 g, g-tube, Daily sennosides-docusate sodium, 2 tablet, g-tube, BID vitamin B complex-vitamin C-folic acid, 1 capsule, g-tube, Daily before breakfast [facility] 04-22-2025 Consult note Associated Order (s): IP CONSULT TO NUTRITION SERVICES Nutrition Note Pt is a 24 y.o. year old female patient admitted on 04/21/2025 - referred to Nutrition Services for Admission nursing screening (home tube feed). Nutrition Assessment Recent Events: Pt transferred from [place] for 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 Noted pt was doing well until change in neuro exam (~04/21) PMH: 03/04 s/p decompressive SOC and C1 lami, 03/15 s/p SOC for AVM resection, 03/18 s/p angio w severe posterior circulation spasm, 03/23 s/p PEG Food and Nutrient History: Energy Intake: Good > 75 % Food and Nutrient History: Pt was followed closely by this service during previous admission - last seen on 03/31: noted difficulty reaching goal rate throughout admission d/t emesis (took a long period of time to determine if it was medication, procedure, tube feed, slowed gastric emptying related) - on last follow up it was reported that pt was tolerating goal TF rate of Isosource 1.5 @ 45ml/hr with the addition of Reglan. She was discharged same day. Met with pt's family today - mentioned that she has been receiving Jevity 1.5 @ 45ml/hr - tolerating well. Noted she continues to receive Reglan. Explained she needs to have her TF paused for 5-10minutes while meds are provided. Mentioned that she still needs lower water flushes. Anthropometrics: Weight: (!) 44 kg (97 lb) Height: 1.6 m (5' 2.99) BMI: Body mass index is 17.19 kg/m . Desirable Body Weight: 52.3 kg, % of Desirable BW: 84 % Adjusted Body Weight: Anthropometric History: Wt Readings from Last 6 Encounters: 04/21/25 (!) 44 kg (97 lb) 03/26/25 (!) 43.7 kg (96 lb 5.5 oz) 03/03/25 50 kg (110 lb 3.7 oz) Weight Change: Weight History / % Weight Change: Pt had lost a significant amount of weight during previous admission; however, appears her weight has remained stable since. So she did lose >5% in a month, but has maintained since being able to tolerate feeds Significant Weight Loss: Yes Interpretation of Weight Loss: >5% in 1 month Nutrition Focused Physical Findings: Assessment Status: Defer all Defer Reason: visual performed given multiple family in room - visually severe findings, but family noted thin at baseline Estimated Energy Needs: Total Energy Needs ~0092-4246 kCal/24 hrs Method for Estimating Needs: 35kcal/kg per act wt Estimated Protein Needs: Total Protein Needs 60-70 g/24 hrs Method for Estimating Needs: per IBW Estimated Fluid Needs: Total Fluid Needs per team mL/24 hrs Nutrition Meds/I&O/Pertinent Lab Results Scheduled medications Scheduled Medications[1] Last BM Date: 04/21/25 Dietary Orders (From admission, onward) Start Ordered 04/22/25 0958 Enteral feeding with NPO Isosource 1.5; 150; Water; Bottled water; Every 6 hours Diet effective now Question Answer Comment Tube feeding formula: Isosource 1.5 Administration method: Continuous Initial Rate (mL/hr): 45 Goal rate (mL/hr) (if no titration enter initial rate as goal rate): 45 Tube feeding flush (mL): 150 Flush type: Water Water type: Bottled water Flush frequency: Every 6 hours 04/22/25 1002 04/21/252207 May Not Participate in Room Service ( ROOM SERVICE MAY NOT PARTICIPATE) Once Question: . Answer: Yes 04/21/252206 CBC Trend: Results from last 7 days Lab Units 04/22/25 0757 04/21/25 1356 WBC AUTO x10*3/uL 4.7 6.2 RBC AUTO x10*6/uL 4.39 4.49 HEMOGLOBIN g/dL 12.8 12.9 HEMATOCRIT % 39.4 37.8 MCV fL 90 84 PLATELETS AUTO x10*3/uL 294 313 , BMP Trend: Results from last 7 days Lab Units 04/22/25 0757 04/21/25 1356 GLUCOSE mg/dL 151* 102* CALCIUM mg/dL 9.6 9.8 SODIUM mmol/L 137 136 POTASSIUM mmol/L 4.0 4.3 CO2 mmol/L 32 34* CHLORIDE mmol/L 94* 94* BUN mg/dL 15 12 CREATININE mg/dL 0.41* 0.35* , A1C:No results found for: HGBA1C, BG POCT trend: Results from last 7 days Lab Units 04/22/25 1233 04/22/25 0633 04/22/25 0009 POCT GLUCOSE mg/dL 112* 151* 127* , Renal Lab Trend: Results from last 7 days Lab Units 04/22/25 0757 04/21/25 1356 POTASSIUM mmol/L 4.0 4.3 PHOSPHORUS mg/dL 4.0 -- SODIUM mmol/L 137 136 MAGNESIUM mg/dL -- 2.43* EGFR mL/min/1.73m*2 >90 >90 BUN mg/dL 15 12 CREATININE mg/dL 0.41* 0.35* Nutrition Diagnosis Malnutrition Diagnosis - Moderate malnutrition related to acute disease or injury (improved from previous diagnosis)) Status of the malnutrition diagnosis is New. Moderate malnutrition related to acute disease or injury (improved from previous diagnosis))related to previous prolonged hospitalization with inadequate intake d/t TF intolerance as evidenced by >5% wt loss in 1 mo (now stable), visually with severe muscle wasting and fat loss. Additional Assessment Information: Nutrition status improving - will continue to improve as she is tolerating TF Nutrition Interventions/Recommendations Nutrition Prescription: Nutrition prescription for enteral nutrition Individualized Nutrition Prescription Provided for: Per family request, do not recommend to initiate TF while admitted since we do not carry Jevity 1.5. If she is to be admitted longer than 24-48hrs, then Isosource 1.5 @ 45ml/hr would be appropriate. Enteral Recommendations for Homegoing/Discharge: As pt is maintaining weight while receiving Jevity 1.5 @ 45ml/hr, recommend to continue outpatient. If she begins to lose weight on this or is only maintiaining, then would recommend to increase to 50ml/hr. Enteral Intake: Management of delivery rate of enteral nutrition Goal: 1620kcals and 73g pro Education Documentation No documentation found. Nutrition Monitoring and Evaluation Anthropometric Measurements Monitoring: Body Weight: - Body weight - Maintain stable weight and Body weight - Promote weight congregation Nutritional Goal Status: New goal(s) identified Follow Up: Time spent this visit was 60 minutes. Shawanda Frankel RDN, LD [1] acetaminophen, 650 mg, g-tube, q6h [place] famotidine, 40 mg, g-tube, BID fluconazole, 200 mg, g-tube, Daily heparin (porcine), 5,000 Units, subcutaneous, q8h insulin lispro, 0-5 Units, subcutaneous, q6h metoprolol tartrate, 75 mg, g-tube, BID [START ON 04/23/2025] polyethylene glycol, 17 g, g-tube, Daily sennosides-docusate sodium, 2 tablet, g-tube, BID vitamin B complex-vitamin C-folic acid, 1 capsule, g-tube, Daily before breakfast Associated Order(s): IP CONSULT TO NEUROSURGERY Images from the original note were not included. NEUROSURGERY CONSULT NOTE Date of Service: 04/21/2025 Attending Provider: Luis Angel Saiin MD Reason for Consultation: Kimani Cohen is being seen today for a consult requested by Luis Angel Saini MD for shunt malfunction. Subjective History of Present Illness: Kimani is a 24 y.o. female with H/o migraines ow no sig pmhx, 03/04/2025 p/w WHOL, s/p intubated for declining exam, s/p RF EVD at 03/04 s/p angio SM4 AVM w b/l PICA, AICA, R SCA feeders and drainage into torcula, intranidal aneurysms off R PICA s/p glue embo of R PICA w/ intranidal aneurysms and partial nidus embo, 03/04 s/p decompressive SOC and C1 lami, 03/05 CTH incr vents, 03/05 s/p angio L PICA and R SCA feeder glue embo, XperCT stable, 03/06 CTH slight decr vents, developing L cerebellar infarct o/w stable, CT PE neg for PE, aspiration pneumonitis, 03/08 CTH evolving posterior fossa edema/infarct, increased vents, EVD dropped from 12 to 10, 03/12 DVT BUE US R basilic SVT, 03/14 CTH decr vents, decr edema, CTA stable AVM, MRI brain posterior fossa subacute blood, w diffusion restriction in medial cerebellum, 03/15 s/p SOC for AVM resection, s/p angio no residual AVM, diffuse posterior circulation spasm, 03/16 CT vents incr, EVD dropped to 7, 03/18 CT incr'd vents, EVD lowered to 5, 03/18 s/p angio w severe posterior circulation spasm 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 and basilar, 10 IA verapamil to L vert, mild b/l ICA spasm, MRI brain patchy areas of restricted diffusion along the posteromedial bilateral cerebellar hemispheres and in the superior anterior left cerebellar hemisphere, 03/21 worsening exam, [facility] incr vents, EVD lowered to 0, 03/22 s/p RO VPS (Certas at 2), RF EVD removal, [facility] catheter in posn, incr vents, shunt dialed to 1, shunt series catheter distal to valve with sharp turn c/f kink, 03/23 s/p PEG, 04/21 p/w worsening exam (not FC x1d), [facility] decr vents Patient transferred from [place] for 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 at bedside who is primary caregiver repots that patient has been doing well with therapy since discharge until a few days ago when he noticed her overall mental status was declining. She was not progressing with therapy as well over the past few days and yesterday needed persistence to follow commands. Today she has not been able to follow his commands and has been less interactive. has also noticed that she may be having more headaches as he describes her closing her eyes/looks in pain when she sits/stands up. Review of Systems 10 point ROS is obtained and negative except the ones mentioned in the HPI Social History She reports that she has never smoked. She has never used smokeless tobacco. Alcohol use questions deferred to the physician. No history on file for drug use. Medical History Medical History[1] Surgical History Surgical History[2] Objective Vitals: Vitals: 04/21/25 1343 BP: (!) 123/95 Pulse: 97 Resp: 16 Temp: 36.4 C (97.5 F) SpO2: 95% Exam: Constitutional: No acute distress Resp: breathing comfortably on RA Cardio: well perfused GI: nondistended MSK: full range of motion Neuro: Awake, Ox0, non verbal Dysconjugate gaze, does not track R partial palsy LUE spontaneous >AG RUE spontaneous <AG BLE spontaneous >AG Sensation: SILT throughout all extremities Cranial incisions c/d/I Medications Current Outpatient Medications Medication Instructions acetaminophen (TYLENOL) 650 mg, g-tube, Every 6 hours PRN amantadine (SYMMETREL) 100 mg, g-tube, Every 12 hours, Assess need for medication often while assessing patient's alert and responsiveness. bisacodyl (DULCOLAX) 10 mg, rectal, Daily PRN carboxymethylcellulose (Refresh Plus) 0.5 % ophthalmic solution 1 drop, As needed esomeprazole (NEXIUM) 40 mg, oral, 2 times daily, Via Peg Tube heparin (porcine) 5,000 Units, subcutaneous, Every 8 hours, Until ambulatory insulin lispro 0-5 Units, subcutaneous, Every 6 hours, Take as directed per insulin instructions. levETIRAcetam (KEPPRA) 500 mg, g-tube, 2 times daily, CONTINUE UNTIL INSTRUCTED TO STOP BY NEUROSURGERY OR NEUROLOGY. PLEASE DISCHARGE WITH SCRIPT WITH 6 REFILLS LORazepam (ATIVAN) 1 mg, g-tube, Every 6 hours PRN metoclopramide (REGLAN) 5 mg, g-tube, 3 times daily, Stop medication on 04/29/2025. ondansetron (ZOFRAN) 4 mg, g-tube, Every 6 hours PRN polyethylene glycol (GLYCOLAX, MIRALAX) 17 g, g-tube, 2 times daily sennosides-docusate sodium (Britany-Colace) 8.6-50 mg tablet 2 tablets, g-tube, 2 times daily vitamin B complex-vitamin C-folic acid (Nephrocaps) 1 mg capsule 1 capsule, g-tube, Daily before breakfast Diagnostic Results: Lab Results Component Value Date WBC 6.2 04/21/2025 HGB 12.9 04/21/2025 HCT 37.8 04/21/2025 MCV 84 04/21/2025 PLT 313 04/21/2025 Lab Results Component Value Date CREATININE 0.32 (L) 03/31/2025 BUN 10 03/31/2025 NA 138 03/31/2025 K 3.6 03/31/2025 CL 100 03/31/2025 CO2 28 03/31/2025 Lab Results Component Value Date INR 1.1 04/21/2025 INR 1.1 03/21/2025 INR 1.2 (H) 03/14/2025 PROTIME 12.6 (H) 04/21/2025 PROTIME 12.6 (H) 03/21/2025 PROTIME 13.1 (H) 03/14/2025 Imaging Results: No orders to display Assessment/Plan Assessment: Kimani is a 24 y.o. female with H/o migraines ow no sig pmhx, 03/04/2025 p/w WHOL, s/p intubated for declining exam, s/p RF EVD at 10, 03/04 s/p angio SM4 AVM w b/l PICA, AICA, R SCA feeders and drainage into torcula, intranidal aneurysms off R PICA s/p glue embo of R PICA w/ intranidal aneurysms and partial nidus embo, 03/04 s/p decompressive SOC and C1 lami, 03/05 CTH incr vents, 03/05 s/p angio L PICA and R SCA feeder glue embo, XperCT stable, 03/06 CTH slight decr vents, developing L cerebellar infarct o/w stable, CT PE neg for PE, aspiration pneumonitis, 03/08 CTH evolving posterior fossa edema/infarct, increased vents, EVD dropped from 12 to 10, 03/12 DVT BUE US R basilic SVT, 03/14 CTH decr vents, decr edema, CTA stable AVM, MRI brain posterior fossa subacute blood, w diffusion restriction in medial cerebellum, 03/15 s/p SOC for AVM resection, s/p angio no residual AVM, diffuse posterior circulation spasm, 03/16 CTH vents incr, EVD dropped to 7, 03/18 CT incr'd vents, EVD lowered to 5, 03/18 s/p angio w severe posterior circulation spasm 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 and basilar, 10 IA verapamil to L vert, mild b/l ICA spasm, MRI brain patchy areas of restricted diffusion along the posteromedial bilateral cerebellar hemispheres and in the superior anterior left cerebellar hemisphere, 03/21 worsening exam, [facility] incr vents, EVD lowered to 0, 03/22 s/p RO VPS (Cert[facility] at 2), RF EVD removal, [facility] catheter in posn, incr vents, shunt dialed to 1, shunt series catheter distal to valve with sharp turn c/f kink, 03/23 s/p PEG, 04/21 p/w worsening exam (not FC x1d), [facility] decr vents Patient presenting with decline in neuro status over the past few days. Imaging at OSH shows decreased ventricular caliber. Patient certas shunt currently at 1 and likely being over drained. Will dial shunt to 3. Plan: Obtain infectious labs: ESR, CRP, UA Obtain labs: CBC, RFP, coag, T&S Will plan to dial Certas shunt to 3 Jayden Quick MD Department of Neurosurgery [facility] Note authored by resident on neurosurgery team, with all questions [place] [phone] Plan not finalized until note signed by attending [1] No past medical history on file. [2] No past surgical history on file. Cosigned by Alfred Self MD at 04/23/2025 12:40 PM EDT documented in this encounter [facility] [place] Work Phone: 04-22-2025 Plan of care note The patient's goals for the shift include The clinical goals for the shift include Partient safety will be maintained Problem: Skin Goal: Decreased wound size/increased tissue granulation at next dressing change Outcome: Progressing Flowsheets (Taken 04/22/2025838) Decreased wound size/increased tissue granulation at next dressing change: Protective dressings over bony prominences Problem: Skin Goal: Participates in plan/prevention/treatment measures Outcome: Progressing Flowsheets (Taken 04/22/2025838) Participates in plan/prevention/treatment measures: Elevate heels Problem: Skin Goal: Prevent/manage excess moisture Outcome: Progressing Flowsheets (Taken 04/22/2025838) Prevent/manage excess moisture: Cleanse incontinence/protect with barrier cream Monitor for/manage infection if present Follow provider orders for dressing changes Problem: Skin Goal: Prevent/minimize sheer/friction injuries Outcome: Progressing Flowsheets (Taken 04/22/2025838) Prevent/minimize sheer/friction injuries: Turn/reposition every 2 hours/use positioning/transfer devices Use pull sheet Problem: Skin Goal: Prevent/minimize sheer/friction injuries Outcome: Progressing Flowsheets (Taken 04/22/2025838) Prevent/minimize sheer/friction injuries: Turn/reposition every 2 hours/use positioning/transfer devices Use pull sheet Problem: Skin Goal: Promote/optimize nutrition Outcome: Progressing Flowsheets (Taken 04/22/2025838) Promote/optimize nutrition: Assist with feeding Problem: Skin Goal: Promote skin healing Outcome: Progressing [facility] Work Phone: 04-22-2025 Hospital Note Formatting of t his note might be different from the original. Kimani Cohen is a 24 year old female with a past medical history of migraines who previously presented 03/04/2025 with worst headache of life. Hospital course complicated by intubation for declining exam and RF EVD placement. 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 Taken to the OR 03/04 for decompressive SOC and C1 lami followed by return to angio 03/05 for L PICA and R SCA feeder glue embolization. 03/14 MRI brain demonstrated posterior fossa subacute blood, with diffusion restriction in medial cerebellum. Patient again returned to the OR on 03/15 SOC for AVM resection. Post operative angio with no residual AVM, diffuse posterior circulation spasm. Repeat angio 03/18 with severe posterior circulation spasm 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 and basilar, 10 IA verapamil to L vert, mild b/l ICA spasm. Repeat MRI brain with patchy areas of restricted diffusion along the posteromedial bilateral cerebellar hemispheres and in the superior anterior left cerebellar hemisphere. Patient ultimately required RO VPS ([facility] at 1) on 03/22 follow by PEG on 03/23. She was discharged to acute rehab 03/31. Patient returned to the [facility] ED 04/21 with decline in neuro status over the past few days. CT head with decreased ventricular caliber. Patient admitted to the neurosurgery service for further workup/management. 04/21 Certas dialed down to 3. 04/23 CTH vents incr, hypotensive in MRI 04/24 CTH min decr vents, certas dialed to 4 04/25 MRI brain stable, no acute infarct 04/26 CTH stable On the day of discharge, the patient was seen and evaluated by the neurosurgery team and deemed suitable for discharge. The patient was given detailed discharge instructions and were scheduled to follow up as an outpatient. [facility] [place] Work Phone: 04-21-2025 History and physical note History Of Present Illness Kimani is a 24 y.o. female with H/o migraines ow no sig pmhx, 03/04/2025 p/w WHOL, s/p intubated for declining exam, s/p RF EVD at 10, 03/04 s/p angio SM4 AVM w b/l PICA, AICA, R SCA feeders and drainage into torcula, intranidal aneurysms off R PICA s/p glue embo of R PICA w/ intranidal aneurysms and partial nidus embo, 03/04 s/p decompressive SOC and C1 lami, 03/05 CTH incr vents, 03/05 s/p angio L PICA and R SCA feeder glue embo, XperCT stable, 03/06 CTH slight decr vents, developing L cerebellar infarct o/w stable, CT PE neg for PE, aspiration pneumonitis, 03/08 CTH evolving posterior fossa edema/infarct, increased vents, EVD dropped from 12 to 10, 03/12 DVT BUE US R basilic SVT, 03/14 CTH decr vents, decr edema, CTA stable AVM, MRI brain posterior fossa subacute blood, w diffusion restriction in medial cerebellum, 03/15 s/p SOC for AVM resection, s/p angio no residual AVM, diffuse posterior circulation spasm, 03/16 CT vents incr, EVD dropped to 7, 03/18 CTH incr'd vents, EVD lowered to 5, 03/18 s/p angio w severe posterior circulation spasm 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 and basilar, 10 IA verapamil to L vert, mild b/l ICA spasm, MRI brain patchy areas of restricted diffusion along the posteromedial bilateral cerebellar hemispheres and in the superior anterior left cerebellar hemisphere, 03/21 worsening exam, CT incr vents, EVD lowered to 0, 03/22 s/p RO VPS ([facility] at 2), RF EVD removal, [facility] catheter in posn, incr vents, shunt dialed to 1, shunt series catheter distal to valve with sharp turn c/f kink, 03/23 s/p PEG, 04/21 p/w worsening exam (not FC x1d), [facility] decr vents Patient transferred from [place] for 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 at bedside who is primary caregiver repots that patient has been doing well with therapy since discharge until a few days ago when he noticed her overall mental status was declining. She was not progressing with therapy as well over the past few days and yesterday needed persistence to follow commands. Today she has not been able to follow his commands and has been less interactive. has also noticed that she may be having more headaches as he describes her closing her eyes/looks in pain when she sits/stands up. Past Medical History Medical History[1] Surgical History Surgical History[2] Social History She reports that she has never smoked. She has never used smokeless tobacco. Alcohol use questions deferred to the physician. No history on file for drug use. Family History Family History[3] Allergies Patient has no known allergies. Review of Systems Review of systems was reviewed and otherwise negative other than what was listed in the HPI. Physical Exam Constitutional: No acute distress Resp: breathing comfortably on RA Cardio: well perfused GI: nondistended MSK: full range of motion Neuro: Awake, Ox0, non verbal Dysconjugate gaze, does not track R partial palsy LUE spontaneous >AG RUE spontaneous BLE spontaneous >AG Sensation: SILT throughout all extremities Cranial incisions c/d/I Last Recorded Vitals Blood pressure 103/73, pulse (!) 117, temperature 35.7 C (96.3 F), temperature source Temporal, resp. rate 16, height 1.6 m (5' 2.99), weight (!) 44 kg (97 lb), SpO2 100%. Relevant Results Results for orders placed or performed during the hospital encounter of 04/21/25 (from the past 24 hours) Blood Gas Venous Full Panel Unsolicited Result Value Ref Range POCT pH, Venous 7.50 (H) 7.33 - 7.43 pH POCT pCO2, Venous 49 41 - 51 mm Hg POCT pO2, Venous 61 (H) 35 - 45 mm Hg POCT SO2, Venous 92 (H) 45 - 75 % POCT Oxy Hemoglobin, Venous 89.4 (H) 45.0 - 75.0 % POCT Hematocrit Calculated, Venous 41.0 36.0 - 46.0 % POCT Sodium, Venous 133 (L) 136 - 145 mmol/L POCT Potassium, Venous 4.5 3.5 - 5.3 mmol/L POCT Chloride, Venous 96 (L) 98 - 107 mmol/L POCT Ionized Calicum, Venous 1.22 1.10 - 1.33 mmol/L POCT Glucose, Venous 113 (H) 74 - 99 mg/dL POCT Lactate, Venous 1.2 0.4 - 2.0 mmol/L POCT Base Excess, Venous 13.1 (H) -2.0 - 3.0 mmol/L POCT HCO3 Calculated, Venous 38.2 (H) 22.0 - 26.0 mmol/L POCT Hemoglobin, Venous 13.5 12.0 - 16.0 g/dL POCT Anion Gap, Venous 3.0 (L) 10.0 - 25.0 mmol/L Patient Temperature 37.0 degrees Celsius CBC and Auto Differential Result Value Ref Range WBC 6.2 4.4 - 11.3 x10*3/uL nRBC 0.0 0.0 - 0.0 /100 WBCs RBC 4.49 4.00 - 5.20 x10*6/uL Hemoglobin 12.9 12.0 - 16.0 g/dL Hematocrit 37.8 36.0 - 46.0 % MCV 84 80 - 100 fL MCH 28.7 26.0 - 34.0 pg MCHC 34.1 32.0 - 36.0 g/dL RDW 12.6 11.5 - 14.5 % Platelets 313 150 - 450 x10*3/uL Neutrophils % 73.3 40.0 - 80.0 % Immature Granulocytes %, Automated 1.6 (H) 0.0 - 0.9 % Lymphocytes % 15.4 13.0 - 44.0 % Monocytes % 8.7 2.0 - 10.0 % Eosinophils % 0.5 0.0 - 6.0 % Basophils % 0.5 0.0 - 2.0 % Neutrophils Absolute 4.58 1.20 - 7.70 x10*3/uL Immature Granulocytes Absolute, Automated 0.10 0.00 - 0.70 x10*3/uL Lymphocytes Absolute 0.96 (L) 1.20 - 4.80 x10*3/uL Monocytes Absolute 0.54 0.10 - 1.00 x10*3/uL Eosinophils Absolute 0.03 0.00 - 0.70 x10*3/uL Basophils Absolute 0.03 0.00 - 0.10 x10*3/uL Comprehensive metabolic panel Result Value Ref Range Glucose 102 (H) 74 - 99 mg/dL Sodium 136 136 - 145 mmol/L Potassium 4.3 3.5 - 5.3 mmol/L Chloride 94 (L) 98 - 107 mmol/L Bicarbonate 34 (H) 21 - 32 mmol/L Anion Gap 12 10 - 20 mmol/L Urea Nitrogen 12 6 - 23 mg/dL Creatinine 0.35 (L) 0.50 - 1.05 mg/dL eGFR >90 >60 mL/min/1.73m*2 Calcium 9.8 8.6 - 10.6 mg/dL Albumin 3.7 3.4 - 5.0 g/dL Alkaline Phosphatase 90 33 - 110 U/L Total Protein 7.6 6.4 - 8.2 g/dL AST 24 9 - 39 U/L Bilirubin, Total 0.3 0.0 - 1.2 mg/dL ALT 35 7 - 45 U/L Magnesium Result Value Ref Range Magnesium 2.43 (H) 1.60 - 2.40 mg/dL Protime-INR Result Value Ref Range Protime 12.6 (H) 9.8 - 12.4 seconds INR 1.1 0.9 - 1.1 Type And Screen Result Value Ref Range ABO TYPE B Rh TYPE POS ANTIBODY SCREEN NEG C-reactive protein Result Value Ref Range C-Reactive Protein 2.15 (H) <1.00 mg/dL Sedimentation rate, automated Result Value Ref Range Sedimentation Rate 33 (H) 0 - 20 mm/h Human Chorionic Gonadotropin, Serum Quantitative Result Value Ref Range HCG, Beta-Quantitative <3 <5 mIU/mL Assessment & Plan Altered mental status, unspecified altered mental status type Kimani is a 24 y.o. female with H/o migraines ow no sig pmhx, 03/04/2025 p/w WHOL, s/p intubated for declining exam, s/p RF EVD at 10, 03/04 s/p angio SM4 AVM w b/l PICA, AICA, R SCA feeders and drainage into torcula, intranidal aneurysms off R PICA s/p glue embo of R PICA w/ intranidal aneurysms and partial nidus embo, 03/04 s/p decompressive SOC and C1 lami, 03/05 CTH incr vents, 03/05 s/p angio L PICA and R SCA feeder glue embo, XperCT stable, 03/06 CT slight decr vents, developing L cerebellar infarct o/w stable, CT PE neg for PE, aspiration pneumonitis, 03/08 CTH evolving posterior fossa edema/infarct, increased vents, EVD dropped from 12 to 10, 03/12 DVT BUE US R basilic SVT, 03/14 CTH decr vents, decr edema, CTA stable AVM, MRI brain posterior fossa subacute blood, w diffusion restriction in medial cerebellum, 03/15 s/p SOC for AVM resection, s/p angio no residual AVM, diffuse posterior circulation spasm, 03/16 CT vents incr, EVD dropped to 7, 03/18 [facility] incr'd vents, EVD lowered to 5, 03/18 s/p angio w severe posterior circulation spasm 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 and basilar, 10 IA verapamil to L vert, mild b/l ICA spasm, MRI brain patchy areas of restricted diffusion along the posteromedial bilateral cerebellar hemispheres and in the superior anterior left cerebellar hemisphere, 03/21 worsening exam, [facility] incr vents, EVD lowered to 0, 03/22 s/p RO VPS ([facility] at 2), RF EVD removal, [facility] catheter in posn, incr vents, shunt dialed to 1, shunt series catheter distal to valve with sharp turn c/f kink, 03/23 s/p PEG, 04/21 p/w worsening exam (not FC x1d), [facility] decr vents Patient presenting with decline in neuro status over the past few days. Imaging at OSH shows decreased ventricular caliber. Patient certas shunt currently at 1 and likely being over drained. Will dial shunt to 3. Plan: Floor Shunt dialed to 3 Etta Pedro MD [1] No past medical history on file. [2] No past surgical history on file. [3] No family history on file. Cosigned by Alfred Self MD at 04/23/2025 12:41 PM EDT [facility] [place] Work Phone: 04-21-2025 History and physical note History Of Present Illness Kimani is a 24 y.o. female with H/o migraines ow no sig pmhx, 03/04/2025 p/w WHOL, s/p intubated for declining exam, s/p RF EVD at 10, 03/04 s/p angio SM4 AVM w b/l PICA, AICA, R SCA feeders and drainage into torcula, intranidal aneurysms off R PICA s/p glue embo of R PICA w/ intranidal aneurysms and partial nidus embo, 03/04 s/p decompressive SOC and C1 lami, 03/05 CTH incr vents, 03/05 s/p angio L PICA and R SCA feeder glue embo, XperCT stable, 03/06 CTH slight decr vents, developing L cerebellar infarct o/w stable, CT PE neg for PE, aspiration pneumonitis, 03/08 CTH evolving posterior fossa edema/infarct, increased vents, EVD dropped from 12 to 10, 03/12 DVT BUE US R basilic SVT, 03/14 CTH decr vents, decr edema, CTA stable AVM, MRI brain posterior fossa subacute blood, w diffusion restriction in medial cerebellum, 03/15 s/p SOC for AVM resection, s/p angio no residual AVM, diffuse posterior circulation spasm, 03/16 CT vents incr, EVD dropped to 7, 03/18 CTH incr'd vents, EVD lowered to 5, 03/18 s/p angio w severe posterior circulation spasm 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 and basilar, 10 IA verapamil to L vert, mild b/l ICA spasm, MRI brain patchy areas of restricted diffusion along the posteromedial bilateral cerebellar hemispheres and in the superior anterior left cerebellar hemisphere, 03/21 worsening exam, CT incr vents, EVD lowered to 0, 03/22 s/p RO VPS ([facility] at 2), RF EVD removal, CT catheter in posn, incr vents, shunt dialed to 1, shunt series catheter distal to valve with sharp turn c/f kink, 03/23 s/p PEG, 04/21 p/w worsening exam (not FC x1d), CTH decr vents Patient transferred from [place] for 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 at bedside who is primary caregiver repots that patient has been doing well with therapy since discharge until a few days ago when he noticed her overall mental status was declining. She was not progressing with therapy as well over the past few days and yesterday needed persistence to follow commands. Today she has not been able to follow his commands and has been less interactive. has also noticed that she may be having more headaches as he describes her closing her eyes/looks in pain when she sits/stands up. Past Medical History Medical History[1] Surgical History Surgical History[2] Social History She reports that she has never smoked. She has never used smokeless tobacco. Alcohol use questions deferred to the physician. No history on file for drug use. Family History Family History[3] Allergies Patient has no known allergies. Review of Systems Review of systems was reviewed and otherwise negative other than what was listed in the HPI. Physical Exam Constitutional: No acute distress Resp: breathing comfortably on RA Cardio: well perfused GI: nondistended MSK: full range of motion Neuro: Awake, Ox0, non verbal Dysconjugate gaze, does not track R partial palsy LUE spontaneous >AG RUE spontaneous <AG BLE spontaneous >AG Sensation: SILT throughout all extremities Cranial incisions c/d/I Last Recorded Vitals Blood pressure 103/73, pulse (!) 117, temperature 35.7 C (96.3 F), temperature source Temporal, resp. rate 16, height 1.6 m (5' 2.99), weight (!) 44 kg (97 lb), SpO2 100%. Relevant Results Results for orders placed or performed during the hospital encounter of 04/21/25 (from the past 24 hours) Blood Gas Venous Full Panel Unsolicited Result Value Ref Range POCT pH, Venous 7.50 (H) 7.33 - 7.43 pH POCT pCO2, Venous 49 41 - 51 mm Hg POCT pO2, Venous 61 (H) 35 - 45 mm Hg POCT SO2, Venous 92 (H) 45 - 75 % POCT Oxy Hemoglobin, Venous 89.4 (H) 45.0 - 75.0 % POCT Hematocrit Calculated, Venous 41.0 36.0 - 46.0 % POCT Sodium, Venous 133 (L) 136 - 145 mmol/L POCT Potassium, Venous 4.5 3.5 - 5.3 mmol/L POCT Chloride, Venous 96 (L) 98 - 107 mmol/L POCT Ionized Calicum, Venous 1.22 1.10 - 1.33 mmol/L POCT Glucose, Venous 113 (H) 74 - 99 mg/dL POCT Lactate, Venous 1.2 0.4 - 2.0 mmol/L POCT Base Excess, Venous 13.1 (H) -2.0 - 3.0 mmol/L POCT HCO3 Calculated, Venous 38.2 (H) 22.0 - 26.0 mmol/L POCT Hemoglobin, Venous 13.5 12.0 - 16.0 g/dL POCT Anion Gap, Venous 3.0 (L) 10.0 - 25.0 mmol/L Patient Temperature 37.0 degrees Celsius CBC and Auto Differential Result Value Ref Range WBC 6.2 4.4 - 11.3 x10*3/uL nRBC 0.0 0.0 - 0.0 /100 WBCs RBC 4.49 4.00 - 5.20 x10*6/uL Hemoglobin 12.9 12.0 - 16.0 g/dL Hematocrit 37.8 36.0 - 46.0 % MCV 84 80 - 100 fL MCH 28.7 26.0 - 34.0 pg MCHC 34.1 32.0 - 36.0 g/dL RDW 12.6 11.5 - 14.5 % Platelets 313 150 - 450 x10*3/uL Neutrophils % 73.3 40.0 - 80.0 % Immature Granulocytes %, Automated 1.6 (H) 0.0 - 0.9 % Lymphocytes % 15.4 13.0 - 44.0 % Monocytes % 8.7 2.0 - 10.0 % Eosinophils % 0.5 0.0 - 6.0 % Basophils % 0.5 0.0 - 2.0 % Neutrophils Absolute 4.58 1.20 - 7.70 x10*3/uL Immature Granulocytes Absolute, Automated 0.10 0.00 - 0.70 x10*3/uL Lymphocytes Absolute 0.96 (L) 1.20 - 4.80 x10*3/uL Monocytes Absolute 0.54 0.10 - 1.00 x10*3/uL Eosinophils Absolute 0.03 0.00 - 0.70 x10*3/uL Basophils Absolute 0.03 0.00 - 0.10 x10*3/uL Comprehensive metabolic panel Result Value Ref Range Glucose 102 (H) 74 - 99 mg/dL Sodium 136 136 - 145 mmol/L Potassium 4.3 3.5 - 5.3 mmol/L Chloride 94 (L) 98 - 107 mmol/L Bicarbonate 34 (H) 21 - 32 mmol/L Anion Gap 12 10 - 20 mmol/L Urea Nitrogen 12 6 - 23 mg/dL Creatinine 0.35 (L) 0.50 - 1.05 mg/dL eGFR >90 >60 mL/min/1.73m*2 Calcium 9.8 8.6 - 10.6 mg/dL Albumin 3.7 3.4 - 5.0 g/dL Alkaline Phosphatase 90 33 - 110 U/L Total Protein 7.6 6.4 - 8.2 g/dL AST 24 9 - 39 U/L Bilirubin, Total 0.3 0.0 - 1.2 mg/dL ALT 35 7 - 45 U/L Magnesium Result Value Ref Range Magnesium 2.43 (H) 1.60 - 2.40 mg/dL Protime-INR Result Value Ref Range Protime 12.6 (H) 9.8 - 12.4 seconds INR 1.1 0.9 - 1.1 Type And Screen Result Value Ref Range ABO TYPE B Rh TYPE POS ANTIBODY SCREEN NEG C-reactive protein Result Value Ref Range C-Reactive Protein 2.15 (H) <1.00 mg/dL Sedimentation rate, automated Result Value Ref Range Sedimentation Rate 33 (H) 0 - 20 mm/h Human Chorionic Gonadotropin, Serum Quantitative Result Value Ref Range HCG, Beta-Quantitative <3 <5 mIU/mL Assessment & Plan Altered mental status, unspecified altered mental status type Kimani is a 24 y.o. female with H/o migraines ow no sig pmhx, 03/04/2025 p/w WHOL, s/p intubated for declining exam, s/p RF EVD at 10, 03/04 s/p angio SM4 AVM w b/l PICA, AICA, R SCA feeders and drainage into torcula, intranidal aneurysms off R PICA s/p glue embo of R PICA w/ intranidal aneurysms and partial nidus embo, 03/04 s/p decompressive SOC and C1 lami, 03/05 CTH incr vents, 03/05 s/p angio L PICA and R SCA feeder glue embo, XperCT stable, 03/06 CTH slight decr vents, developing L cerebellar infarct o/w stable, CT PE neg for PE, aspiration pneumonitis, 03/08 CTH evolving posterior fossa edema/infarct, increased vents, EVD dropped from 12 to 10, 03/12 DVT BUE US R basilic SVT, 03/14 CTH decr vents, decr edema, CTA stable AVM, MRI brain posterior fossa subacute blood, w diffusion restriction in medial cerebellum, 03/15 s/p SOC for AVM resection, s/p angio no residual AVM, diffuse posterior circulation spasm, 03/16 CT vents incr, EVD dropped to 7, 03/18 CT incr'd vents, EVD lowered to 5, 03/18 s/p angio w severe posterior circulation spasm 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 and basilar, 10 IA verapamil to L vert, mild b/l ICA spasm, MRI brain patchy areas of restricted diffusion along the posteromedial bilateral cerebellar hemispheres and in the superior anterior left cerebellar hemisphere, 03/21 worsening exam, [facility] incr vents, EVD lowered to 0, 03/22 s/p RO VPS (Cert[facility] at 2), RF EVD removal, [facility] catheter in posn, incr vents, shunt dialed to 1, shunt series catheter distal to valve with sharp turn c/f kink, 03/23 s/p PEG, 04/21 p/w worsening exam (not FC x1d), [facility] decr vents Patient presenting with decline in neuro status over the past few days. Imaging at OSH shows decreased ventricular caliber. Patient certas shunt currently at 1 and likely being over drained. Will dial shunt to 3. Plan: Floor Shunt dialed to 3 Etta Pedro MD [1] No past medical history on file. [2] No past surgical history on file. [3] No family history on file. 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 Yessenia Dixon MD Status:DIS IN Location: [place] [address] Providers Date of Admission: 04/07/25 Primary Care Physician: Dr. Yessenia Dixon MD Reason For Visit: BURST AVM Diagnosis Discharge Diagnosis (1) Brain aneurysm: Status: Acute Code(s): I67.1 - Cerebral aneurysm, nonruptured (2) Bleeding in brain due to brain aneurysm: Status: Acute Code(s): I60.9 - Nontraumatic subarachnoid hemorrhage, unspecified (3) Hemorrhagic stroke: Status: Acute Code(s): I61.9 - Nontraumatic intracerebral hemorrhage, unspecified (4) Debility: Status: Acute Code(s): R53.81 - Other malaise (5) Status post insertion of percutaneous endoscopic gastrostomy (PEG) tube: Status: Acute Code(s): Z93.1 - Gastrostomy status Plan 24 year old female with no significant past medical history hospitalized for ruptured brain aneurysm, s/p SOC for AVM resection, s/p angio no residual AVM, admitted to TCU with debilty, here for rehabilitation, strengthening, prior to discharge home with /family. * Debility - PT/OT. * Dysphagia/cognition - ST. * Pain - Tylenol 650mg q6 prn. * Bowel - Miralax 17gm bid, senna/colace 2 tablets bid, Dulcolax 10mg pr daily. * Adult immunization - Administer pneumonia vaccine, covid vaccine, flu vaccine as appropriate. * DVT prophylaxis - Lovenox 40mg sc daily. * Somnolence - Amantadine 100mg bid. * Dry eyes - Artificial tears 1 gtt ou q6 prn. * Nutrition - Jevity 1.5 45mL/hour via PEG. * GERD - Lansoprazole 30mg bid. * Seizure disorder - Keppra 500mg bid. * Insomnia - Melatonin 10mg qhs. * Nausea - Reglan 5mg q8, Zofran 4mg q6. * Tachycardia - Metoprolol 12.5mg q12. * Thrush - Nystatin 500,000 units q6 x 10 days. * Thiamine deficiency - Thiamine 100mg daily. * Leg cramps - Vitamin B complex 1 capsule daily. The following psychotropic medication was present on admission: Lorazepam 1mg q6 prn, 0.5mg q6 prn. Psychotropic medication therapy is indicated for a diagnosis of: Anxiety/restlessness/sleep. Based on my clinical evaluation, continuation of the medication is necessary at this time. Gradual dose reduction plan (select one): ____ GDR will be attempted. Will monitor patient symptoms and behaviors in response to GDR. __x__ GRD contraindicated. Reason contraindicated: Stable use. Medications at Discharge Home Medications B complex-vitamin C-folic acid ER 400 mcg tablet,extended release 1 tab PO DAILY supplement 04/07/25 acetaminophen 325 mg/10.15 mL oral solution 650 mg feeding tube Q6H PRN pain (scale score 1-10) 04/07/25 amantadine HCl 50 mg/5 mL oral solution 100 mg feeding tube BID involuntary movement 04/07/25 bisacodyl 10 mg rectal suppository 10 mg OH DAILY PRN constipation 04/07/25 carboxymethylcellulose sodium 1 % eye drops (Artificial Tears (carboxymethylcellulose)) 1 drp EACH EYE DAILY PRN dry eyes 04/07/25 esomeprazole magnesium 40 mg capsule,delayed release (Nexium) 40 mg feeding tube BID reflux 04/07/25 heparin (porcine) 5,000 unit/mL (1 mL) injection cartridge 5,000 unit subcut Q8H prophylaxis 04/07/25 levetiracetam 500 mg/5 mL (5 mL) oral solution 500 mg feeding tube BID seizures 04/07/25 lorazepam 0.5 mg tablet (Ativan) 0.5 mg feeding tube Q6H PRN mild restlessness/agitation 04/07/25 lorazepam 1 mg tablet (Ativan) 1 mg feeding tube Q6H PRN severe restlessness/agitation 04/07/25 metoclopramide HCl 5 mg/5 mL oral solution 5 mg feeding tube Q8H digestion/nausea 04/07/25 metoprolol tartrate 25 mg tablet 12.5 mg feeding tube Q12H BP/pulse 04/07/25 nystatin 100,000 unit/mL oral suspension 500,000 unit PO Q6H thrush 04/07/25 ondansetron 4 mg disintegrating tablet 4 mg feeding tube Q6H nausea 04/07/25 polyethylene glycol 3350 17 gram/dose oral powder 17 g feeding tube BID PRN constipation 04/07/25 sennosides 8.6 mg-docusate sodium 50 mg capsule (Senna Plus) 2 tab-cap PO BID bowels 04/07/25 thiamine HCl (vitamin B1) 100 mg tablet 100 mg feeding tube DAILY supplement 04/07/25 zinc sulfate 50 mg zinc (220 mg) capsule (Orazinc) 50 mg PO DAILY supplement 04/07/25 Hospital Course Operations - (See below.) Procedures Peg tube placement Summary of Care Provided Minutes Spent on Discharge: 35 Hospital Course: 24 year old female with no significant past medical history hospitalized for ruptured brain aneurysm, s/p SOC for AVM resection, s/p angio no residual AVM, admitted to TCU with debility, here for rehabilitation, strengthening, prior to discharge home with /family. 04/20/2025 Kimani had set back with therapy, appeared to be doing less in therapy. 04/20/2025 CT head negative for bleeding, but showed overshunt (more content not included)... [facility] 04-21-2025 Consult note Associated Order (s): IP CONSULT TO NEUROSURGERY Images from the original note were not included. NEUROSURGERY CONSULT NOTE Date of Service: 04/21/2025 Attending Provider: Luis Angel Saini MD Reason for Consultation: Kimani Cohen is being seen today for a consult requested by Luis Angel Saini MD for shunt malfunction. Subjective History of Present Illness: Kimani is a 24 y.o. female with H/o migraines ow no sig pmhx, 03/04/2025 p/w WHOL, s/p intubated for declining exam, s/p RF EVD at 10, 03/04 s/p angio SM4 AVM w b/l PICA, AICA, R SCA feeders and drainage into torcula, intranidal aneurysms off R PICA s/p glue embo of R PICA w/ intranidal aneurysms and partial nidus embo, 03/04 s/p decompressive SOC and C1 lami, 03/05 CTH incr vents, 03/05 s/p angio L PICA and R SCA feeder glue embo, XperCT stable, 03/06 CTH slight decr vents, developing L cerebellar infarct o/w stable, CT PE neg for PE, aspiration pneumonitis, 03/08 CTH evolving posterior fossa edema/infarct, increased vents, EVD dropped from 12 to 10, 03/12 DVT BUE US R basilic SVT, 03/14 CTH decr vents, decr edema, CTA stable AVM, MRI brain posterior fossa subacute blood, w diffusion restriction in medial cerebellum, 03/15 s/p SOC for AVM resection, s/p angio no residual AVM, diffuse posterior circulation spasm, 03/16 CT vents incr, EVD dropped to 7, 03/18 CTH incr'd vents, EVD lowered to 5, 03/18 s/p angio w severe posterior circulation spasm 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 and basilar, 10 IA verapamil to L vert, mild b/l ICA spasm, MRI brain patchy areas of restricted diffusion along the posteromedial bilateral cerebellar hemispheres and in the superior anterior left cerebellar hemisphere, 03/21 worsening exam, CT incr vents, EVD lowered to 0, 03/22 s/p RO VPS (Certas at 2), RF EVD removal, CT catheter in posn, incr vents, shunt dialed to 1, shunt series catheter distal to valve with sharp turn c/f kink, 03/23 s/p PEG, 04/21 p/w worsening exam (not FC x1d), CTH decr vents Patient transferred from [place] for 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 at bedside who is primary caregiver repots that patient has been doing well with therapy since discharge until a few days ago when he noticed her overall mental status was declining. She was not progressing with therapy as well over the past few days and yesterday needed persistence to follow commands. Today she has not been able to follow his commands and has been less interactive. has also noticed that she may be having more headaches as he describes her closing her eyes/looks in pain when she sits/stands up. Review of Systems 10 point ROS is obtained and negative except the ones mentioned in the HPI Social History She reports that she has never smoked. She has never used smokeless tobacco. Alcohol use questions deferred to the physician. No history on file for drug use. Medical History Medical History[1] Surgical History Surgical History[2] Objective Vitals: Vitals: 04/21/25 1343 BP: (!) 123/95 Pulse: 97 Resp: 16 Temp: 36.4 C (97.5 F) SpO2: 95% Exam: Constitutional: No acute distress Resp: breathing comfortably on RA Cardio: well perfused GI: nondistended MSK: full range of motion Neuro: Awake, Ox0, non verbal Dysconjugate gaze, does not track R partial palsy LUE spontaneous >AG RUE spontaneous BLE spontaneous >AG Sensation: SILT throughout all extremities Cranial incisions c/d/I Medications Current Outpatient Medications Medication Instructions acetaminophen (TYLENOL) 650 mg, g-tube, Every 6 hours PRN amantadine (SYMMETREL) 100 mg, g-tube, Every 12 hours, Assess need for medication often while assessing patient's alert and responsiveness. bisacodyl (DULCOLAX) 10 mg, rectal, Daily PRN carboxymethylcellulose (Refresh Plus) 0.5 % ophthalmic solution 1 drop, As needed esomeprazole (NEXIUM) 40 mg, oral, 2 times daily, Via Peg Tube heparin (porcine) 5,000 Units, subcutaneous, Every 8 hours, Until ambulatory insulin lispro 0-5 Units, subcutaneous, Every 6 hours, Take as directed per insulin instructions. levETIRAcetam (KEPPRA) 500 mg, g-tube, 2 times daily, CONTINUE UNTIL INSTRUCTED TO STOP BY NEUROSURGERY OR NEUROLOGY. PLEASE DISCHARGE WITH SCRIPT WITH 6 REFILLS LORazepam (ATIVAN) 1 mg, g-tube, Every 6 hours PRN metoclopramide (REGLAN) 5 mg, g-tube, 3 times daily, Stop medication on 04/29/2025. ondansetron (ZOFRAN) 4 mg, g-tube, Every 6 hours PRN polyethylene glycol (GLYCOLAX, MIRALAX) 17 g, g-tube, 2 times daily sennosides-docusate sodium (Britany-Colace) 8.6-50 mg tablet 2 tablets, g-tube, 2 times daily vitamin B complex-vitamin C-folic acid (Nephrocaps) 1 mg capsule 1 capsule, g-tube, Daily before breakfast Diagnostic Results: Lab Results Component Value Date WBC 6.2 04/21/2025 HGB 12.9 04/21/2025 HCT 37.8 04/21/2025 MCV 84 04/21/2025 PLT 313 04/21/2025 Lab Results Component Value Date CREATININE 0.32 (L) 03/31/2025 BUN 10 03/31/2025 NA 138 03/31/2025 K 3.6 03/31/2025 CL 100 03/31/2025 CO2 28 03/31/2025 Lab Results Component Value Date INR 1.1 04/21/2025 INR 1.1 03/21/2025 INR 1.2 (H) 03/14/2025 PROTIME 12.6 (H) 04/21/2025 PROTIME 12.6 (H) 03/21/2025 PROTIME 13.1 (H) 03/14/2025 Imaging Results: No orders to display Assessment/Plan Assessment: Kimani is a 24 y.o. female with H/o migraines ow no sig pmhx, 03/04/2025 p/w WHOL, s/p intubated for declining exam, s/p RF EVD at 10, 03/04 s/p angio SM4 AVM w b/l PICA, AICA, R SCA feeders and drainage into torcula, intranidal aneurysms off R PICA s/p glue embo of R PICA w/ intranidal aneurysms and partial nidus embo, 03/04 s/p decompressive SOC and C1 lami, 03/05 CTH incr vents, 03/05 s/p angio L PICA and R SCA feeder glue embo, XperCT stable, 03/06 CTH slight decr vents, developing L cerebellar infarct o/w stable, CT PE neg for PE, aspiration pneumonitis, 03/08 CTH evolving posterior fossa edema/infarct, increased vents, EVD dropped from 12 to 10, 03/12 DVT BUE US R basilic SVT, 03/14 CTH decr vents, decr edema, CTA stable AVM, MRI brain posterior fossa subacute blood, w diffusion restriction in medial cerebellum, 03/15 s/p SOC for AVM resection, s/p angio no residual AVM, diffuse posterior circulation spasm, 03/16 [facility] vents incr, EVD dropped to 7, 03/18 [facility] incr'd vents, EVD lowered to 5, 03/18 s/p angio w severe posterior circulation spasm 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 and basilar, 10 IA verapamil to L vert, mild b/l ICA spasm, MRI brain patchy areas of restricted diffusion along the posteromedial bilateral cerebellar hemispheres and in the superior anterior left cerebellar hemisphere, 03/21 worsening exam, [facility] incr vents, EVD lowered to 0, 03/22 s/p RO VPS (Certas at 2), RF EVD removal, [facility] catheter in posn, incr vents, shunt dialed to 1, shunt series catheter distal to valve with sharp turn c/f kink, 03/23 s/p PEG, 04/21 p/w worsening exam (not FC x1d), [facility] decr vents Patient presenting with decline in neuro status over the past few days. Imaging at OSH shows decreased ventricular caliber. Patient certas shunt currently at 1 and likely being over drained. Will dial shunt to 3. Plan: Obtain infectious labs: ESR, CRP, UA Obtain labs: CBC, RFP, coag, T&S Will plan to dial Certas shunt to 3 Jayden Quick MD Department of Neurosurgery [facility] Note authored by resident on neurosurgery team, with [place] questions [place] [phone] Plan not finalized until note signed by attending [1] No past medical history on file. [2] No past surgical history on file. Cosigned by Alfred Self MD at 04/23/2025 12:40 PM EDT [facility] [place] Work Phone: 04-21-2025 Physician Emergency department Note EMERGENCY DEPARTMENT ENCOUNTER Pt Name: Kimani Cohen Birthdate 2000 Date of evaluation: 04/21/2025 Provider: KRISTINA Connell CHIEF COMPLAINT Chief Complaint Patient presents with Altered Mental Status HISTORY OF PRESENT ILLNESS Kimani Cohen is a 24 y.o. female who presents to the emergency department via EMS as a transfer from [facility] for AV shunt malfunction. Per report they sent her here because they performed imaging and noted that shunt to be malfunctioning and over draining. at bedside is primary caregiver, states patient had a ruptured AVM on 03/03/2025, had shunt placed here via neurosurgery and states that she has been declining from a mental status standpoint over the last 2 days. States that normally she is following commands and interactive but she is no longer responding. He gives her her medications compliantly via her PEG tube. Denies any additional concerns at this time with the patient. Nursing Notes were reviewed. History provided by patient. No director of graduate medical education used. REVIEW OF SYSTEMS ROS is otherwise limited due to the patient's mental status at baseline PAST MEDICAL HISTORY Medical History[1] SURGICAL HISTORY Surgical History[2] ALLERGIES Patient has no known allergies. FAMILY HISTORY Family History[3] SOCIAL HISTORY Social History[4] PHYSICAL EXAM VS: As documented in the triage note and EMR flowsheet from this visit were reviewed. GEN: NAD, nontoxic, ill-appearing, resting comfortably in ER cart without difficulty or dyspnea EYES: EOMs grossly intact, anicteric sclera, constant horizontal nystagmus noted, clear and equal bilaterally, no foreign body noted; intermittent gaze deviation noted to the right HEENT: Airway patent, nonverbal CARD: RRR, nontender chest, no crepitus deformities, no JVD, no murmurs rubs or gallops ; No edema noted. Positive pulses bilaterally throughout. Capillary refill less than 3 seconds. No abnormal redness, warmth, tenderness or swelling noted to bilateral lower extremities. PULMONARY: Clear all lung raygoza. Moving air well, Nonlabored, no accessory muscle use ABDOMEN: Abdomen soft, non-distended, no rebound, no guarding. Bowel sounds normal in all 4 quadrants. No grimace to palpation. No CVA tenderness. No masses or organomegaly noted. No evidence of peritonitis. PEG tube in place without any abnormalities. : deferred MUSK: Spine appears normal, range of motion is limited at baseline, no evidence of trauma noted SKIN: Skin normal color for race, warm, dry and intact. No evidence of trauma. No rash noted. NEURO: Eyes open, does not follow commands, unresponsive LYMPH: No adenopathy or splenomegaly. No cervical, supraclavicular or inguinal lymphadenopathy. DIAGNOSTIC RESULTS RADIOLOGY: Non-plain film images such as CT, Ultrasound and MRI are read by the radiologist. Plain radiographic images are visualized and preliminarily interpreted by myself with the below findings: None Interpretation per the Radiologist below, if available at the time of this note: No orders to display ED BEDSIDE ULTRASOUND: Performed by myself - none LABS: Labs Reviewed CBC WITH AUTO DIFFERENTIAL - Abnormal Result Value WBC 6.2 nRBC 0.0 RBC 4.49 Hemoglobin 12.9 Hematocrit 37.8 MCV 84 MCH 28.7 MCHC 34.1 RDW 12.6 Platelets 313 Neutrophils % 73.3 Immature Granulocytes %, Automated 1.6 (*) Lymphocytes % 15.4 Monocytes % 8.7 Eosinophils % 0.5 Basophils % 0.5 Neutrophils Absolute 4.58 Immature Granulocytes Absolute, Automated 0.10 Lymphocytes Absolute 0.96 (*) Monocytes Absolute 0.54 Eosinophils Absolute 0.03 Basophils Absolute 0.03 BLOOD GAS VENOUS FULL PANEL UNSOLICITED - Abnormal POCT pH, Venous 7.50 (*) POCT pCO2, Venous 49 POCT pO2, Venous 61 (*) POCT SO2, Venous 92 (*) POCT Oxy Hemoglobin, Venous 89.4 (*) POCT Hematocrit Calculated, Venous 41.0 POCT Sodium, Venous 133 (*) POCT Potassium, Venous 4.5 POCT Chloride, Venous 96 (*) POCT Ionized Calicum, Venous 1.22 POCT Glucose, Venous 113 (*) POCT Lactate, Venous 1.2 POCT Base Excess, Venous 13.1 (*) POCT HCO3 Calculated, Venous 38.2 (*) POCT Hemoglobin, Venous 13.5 POCT Anion Gap, Venous 3.0 (*) Patient Temperature 37.0 COMPREHENSIVE METABOLIC PANEL MAGNESIUM PROTIME-INR TYPE AND SCREEN BLOOD GAS VENOUS FULL PANEL HUMAN CHORIONIC GONADOTROPIN, SERUM QUANTITATIVE All other labs were within normal range or not returned as of this dictation. EMERGENCY DEPARTMENT COURSE/MDM: Vitals: Vitals: 04/21/25 1343 BP: (!) 123/95 BP Location: Left arm Patient Position: Lying Pulse: 97 Resp: 16 Temp: 36.4 C (97.5 F) TempSrc: Temporal SpO2: 95% Weight: (!) 44 kg (97 lb) Height: 1.6 m (5' 2.99) I reviewed the patient's triage vitals. This is a 24-year-old female presenting for neurosurgery consultation for eval of DOCUMENT CLERK shunt concern. She is resting comfortably in the ER cart without any difficulty or dyspnea. She is placed on continuous cafeteria monitor and pulse oximetry. She is breathing spontaneously but does not respond. I reviewed her outside hospital workup. Will obtain basic laboratory studies and speak with neurosurgery for evaluation and recommendations. She remained hemodynamically stable through my ED course of care. She will be signed out to oncoming provider pending workup results and neurosurgery evaluation with recommendations. Diagnoses as of 04/21/25 1448 Altered mental status, unspecified altered mental status type S/P DOCUMENT CLERK shunt Patient was counseled regarding labs, imaging, likely diagnosis, and plan. All questions were answered. EKG Interpretation: N/A Differential Diagnoses Considered: DOCUMENT CLERK shunt malfunction, acute intracranial process, seizures Chronic Medical Conditions Significantly Affecting Care: AVM rupture External Records Reviewed: I reviewed recent and relevant outside records including: PCP notes, prior discharge summary, previous radiologic studies, HIE, outside hospital paperwork Escalation of Care: Signed out to oncoming provider Social Determinants of Health Significantly Affecting Care: Unknown Prescription Drug Consideration: N/A Diagnostic testing considered: Deferred per neurosurgery Discussion of Management with Other Providers: I discussed the patient/results with: Neurosurgery, oncoming provider ED Medications administered this visit: Medications - No data to display New Prescriptions from this visit: New Prescriptions No medications on file Follow-up: No follow-up provider specified. Final Impression: 1. Altered mental status, unspecified altered mental status type 2. S/P DOCUMENT CLERK shunt Diandra Valdez, CREDIT DEPARTMENT MANAGER-EPIC ANESTHESIA ANALYST This patient was staffed with ED Attending Dr. Saini to review the plan of care during ED course. (Please note that portions of this note were completed with a voice recognition program. Efforts were made to edit the dictations but occasionally words are mis-transcribed.) [1] No past medical history on file. [2] No past surgical history on file. [3] No family history on file. [4] Social History Socioeconomic History Marital status: Tobacco Use Smoking status: Never Smokeless tobacco: Never Substance and Sexual Activity Alcohol use: Defer Social Drivers of Health Financial Resource Strain: Low Risk (03/05/2025) Overall Financial Resource Strain (CARDIA) Difficulty of Paying Living Expenses: Not hard at all Food Insecurity: Patient Unable To Answer (03/04/2025) Hunger Vital Sign Worried About Running Out of Food in the Last Year: Patient unable to answer Ran Out of Food in the Last Year: Patient unable to answer Transportation Needs: No Transportation Needs (03/05/2025) PRAPARE - Transportation Lack of Transportation (Medical): No Lack of Transportation (Non-Medical): No Intimate Partner Violence: Patient Unable To Answer (03/04/2025) Humiliation, Afraid, Rape, and Kick questionnaire Fear of Current or Ex-Partner: Patient unable to answer Emotionally Abused: Patient unable to answer Physically Abused: Patient unable to answer Sexually Abused: Patient unable to answer Housing Stability: Unknown (03/05/2025) Housing Stability Vital Sign Unable to Pay for Housing in the Last Year: No Homeless in the Last Year: No KRISTINA Connell 04/21/25 1448 Cosigned by Luis Angel Saini MD at 04/22/2025 10:48 AM EDT Associated attestation - Luis Angel Saini MD - 04/22/2025 10:48 AM EDT The patient was seen by the resident/fellow. I have personally performed a substantive portion of the encounter. I have seen and examined the patient; agree with the workup, evaluation, MDM, management and diagnosis. The care plan has been discussed with the resident; I have reviewed the resident s note and agree with the documented findings. [facility] [place] Work Phone: 04-21-2025 Emergency department Note EMERGENCY DEPARTMENT ENCOUNTER Pt Name: Kimani Cohen Birthdate 2000 Date of evaluation: 04/21/2025 Provider: KRISTINA Connell CHIEF COMPLAINT Chief Complaint Patient presents with Altered Mental Status HISTORY OF PRESENT ILLNESS Kimani Cohen is a 24 y.o. female who presents to the emergency department via EMS as a transfer from [facility] for AV shunt malfunction. Per report they sent her here because they performed imaging and noted that shunt to be malfunctioning and over draining. at bedside is primary caregiver, states patient had a ruptured AVM on 03/03/2025, had shunt placed here via neurosurgery and states that she has been declining from a mental status standpoint over the last 2 days. States that normally she is following commands and interactive but she is no longer responding. He gives her her medications compliantly via her PEG tube. Denies any additional concerns at this time with the patient. Nursing Notes were reviewed. History provided by patient. No director of graduate medical education used. REVIEW OF SYSTEMS ROS is otherwise limited due to the patient's mental status at baseline PAST MEDICAL HISTORY Medical History[1] SURGICAL HISTORY Surgical History[2] ALLERGIES Patient has no known allergies. FAMILY HISTORY Family History[3] SOCIAL HISTORY Social History[4] PHYSICAL EXAM VS: As documented in the triage note and EMR flowsheet from this visit were reviewed. GEN: NAD, nontoxic, ill-appearing, resting comfortably in ER cart without difficulty or dyspnea EYES: EOMs grossly intact, anicteric sclera, constant horizontal nystagmus noted, clear and equal bilaterally, no foreign body noted; intermittent gaze deviation noted to the right HEENT: Airway patent, nonverbal CARD: RRR, nontender chest, no crepitus deformities, no JVD, no murmurs rubs or gallops ; No edema noted. Positive pulses bilaterally throughout. Capillary refill less than 3 seconds. No abnormal redness, warmth, tenderness or swelling noted to bilateral lower extremities. PULMONARY: Clear all lung raygoza. Moving air well, Nonlabored, no accessory muscle use ABDOMEN: Abdomen soft, non-distended, no rebound, no guarding. Bowel sounds normal in all 4 quadrants. No grimace to palpation. No CVA tenderness. No masses or organomegaly noted. No evidence of peritonitis. PEG tube in place without any abnormalities. : deferred MUSK: Spine appears normal, range of motion is limited at baseline, no evidence of trauma noted SKIN: Skin normal color for race, warm, dry and intact. No evidence of trauma. No rash noted. NEURO: Eyes open, does not follow commands, unresponsive LYMPH: No adenopathy or splenomegaly. No cervical, supraclavicular or inguinal lymphadenopathy. DIAGNOSTIC RESULTS RADIOLOGY: Non-plain film images such as CT, Ultrasound and MRI are read by the radiologist. Plain radiographic images are visualized and preliminarily interpreted by myself with the below findings: None Interpretation per the Radiologist below, if available at the time of this note: No orders to display ED BEDSIDE ULTRASOUND: Performed by myself - none LABS: Labs Reviewed CBC WITH AUTO DIFFERENTIAL - Abnormal Result Value WBC 6.2 nRBC 0.0 RBC 4.49 Hemoglobin 12.9 Hematocrit 37.8 MCV 84 MCH 28.7 MCHC 34.1 RDW 12.6 Platelets 313 Neutrophils % 73.3 Immature Granulocytes %, Automated 1.6 (*) Lymphocytes % 15.4 Monocytes % 8.7 Eosinophils % 0.5 Basophils % 0.5 Neutrophils Absolute 4.58 Immature Granulocytes Absolute, Automated 0.10 Lymphocytes Absolute 0.96 (*) Monocytes Absolute 0.54 Eosinophils Absolute 0.03 Basophils Absolute 0.03 BLOOD GAS VENOUS FULL PANEL UNSOLICITED - Abnormal POCT pH, Venous 7.50 (*) POCT pCO2, Venous 49 POCT pO2, Venous 61 (*) POCT SO2, Venous 92 (*) POCT Oxy Hemoglobin, Venous 89.4 (*) POCT Hematocrit Calculated, Venous 41.0 POCT Sodium, Venous 133 (*) POCT Potassium, Venous 4.5 POCT Chloride, Venous 96 (*) POCT Ionized Calicum, Venous 1.22 POCT Glucose, Venous 113 (*) POCT Lactate, Venous 1.2 POCT Base Excess, Venous 13.1 (*) POCT HCO3 Calculated, Venous 38.2 (*) POCT Hemoglobin, Venous 13.5 POCT Anion Gap, Venous 3.0 (*) Patient Temperature 37.0 COMPREHENSIVE METABOLIC PANEL MAGNESIUM PROTIME-INR TYPE AND SCREEN BLOOD GAS VENOUS FULL PANEL HUMAN CHORIONIC GONADOTROPIN, SERUM QUANTITATIVE All other labs were within normal range or not returned as of this dictation. EMERGENCY DEPARTMENT COURSE/MDM: Vitals: Vitals: 04/21/25 1343 BP: (!) 123/95 BP Location: Left arm Patient Position: Lying Pulse: 97 Resp: 16 Temp: 36.4 C (97.5 F) TempSrc: Temporal SpO2: 95% Weight: (!) 44 kg (97 lb) Height: 1.6 m (5' 2.99) I reviewed the patient's triage vitals. This is a 24-year-old female presenting for neurosurgery consultation for eval of DOCUMENT CLERK shunt concern. She is resting comfortably in the ER cart without any difficulty or dyspnea. She is placed on continuous cafeteria monitor and pulse oximetry. She is breathing spontaneously but does not respond. I reviewed her outside hospital workup. Will obtain basic laboratory studies and speak with neurosurgery for evaluation and recommendations. She remained hemodynamically stable through my ED course of care. She will be signed out to oncoming provider pending workup results and neurosurgery evaluation with recommendations. Diagnoses as of 04/21/25 1448 Altered mental status, unspecified altered mental status type S/P DOCUMENT CLERK shunt Patient was counseled regarding labs, imaging, likely diagnosis, and plan. All questions were answered. EKG Interpretation: N/A Differential Diagnoses Considered: DOCUMENT CLERK shunt malfunction, acute intracranial process, seizures Chronic Medical Conditions Significantly Affecting Care: AVM rupture External Records Reviewed: I reviewed recent and relevant outside records including: PCP notes, prior discharge summary, previous radiologic studies, HIE, outside hospital paperwork Escalation of Care: Signed out to oncoming provider Social Determinants of Health Significantly Affecting Care: Unknown Prescription Drug Consideration: N/A Diagnostic testing considered: Deferred per neurosurgery Discussion of Management with Other Providers: I discussed the patient/results with: Neurosurgery, oncoming provider ED Medications administered this visit: Medications - No data to display New Prescriptions from this visit: New Prescriptions No medications on file Follow-up: No follow-up provider specified. Final Impression: 1. Altered mental status, unspecified altered mental status type 2. S/P DOCUMENT CLERK shunt Diandra Valdez, CREDIT DEPARTMENT MANAGER-EPIC ANESTHESIA ANALYST This patient was staffed with ED Attending Dr. Saini to review the plan of care during ED course. (Please note that portions of this note were completed with a voice recognition program. Efforts were made to edit the dictations but occasionally words are mis-transcribed.) [1] No past medical history on file. [2] No past surgical history on file. [3] No family history on file. [4] Social History Socioeconomic History Marital status: Tobacco Use Smoking status: Never Smokeless tobacco: Never Substance and Sexual Activity Alcohol use: Defer Social Drivers of Health Financial Resource Strain: Low Risk (03/05/2025) Overall Financial Resource Strain (CARDIA) Difficulty of Paying Living Expenses: Not hard at all Food Insecurity: Patient Unable To Answer (03/04/2025) Hunger Vital Sign Worried About Running Out of Food in the Last Year: Patient unable to answer Ran Out of Food in the Last Year: Patient unable to answer Transportation Needs: No Transportation Needs (03/05/2025) PRAPARE - Transportation Lack of Transportation (Medical): No Lack of Transportation (Non-Medical): No Intimate Partner Violence: Patient Unable To Answer (03/04/2025) Humiliation, Afraid, Rape, and Kick questionnaire Fear of Current or Ex-Partner: Patient unable to answer Emotionally Abused: Patient unable to answer Physically Abused: Patient unable to answer Sexually Abused: Patient unable to answer Housing Stability: Unknown (03/05/2025) Housing Stability Vital Sign Unable to Pay for Housing in the Last Year: No Homeless in the Last Year: No KRISTINA Connell 04/21/25 1448 Cosigned by Luis Angel Saini MD at 04/22/2025 10:48 AM EDT Associated attestation - Luis Angel Saini MD - 04/22/2025 10:48 AM EDT The patient was seen by the resident/fellow. I have personally performed a substantive portion of the encounter. I have seen and examined the patient; agree with the workup, evaluation, MDM, management and diagnosis. The care plan has been discussed with the resident; I have reviewed the resident s note and agree with the documented findings. 24 yo female brought in by [facility] as transfer from [facility] for suspected AV shunt malfunction. 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 Per at bedside, pt has declining mental function over the past 2 days, does not respond as much. documented in this encounter [facility] [place] Work Phone: 04-21-2025 Emergency department Triage note 24 yo female brought in by [facility] as transfer from [facility] for suspected AV shunt malfunction. 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 Per at bedside, pt has declining mental function over the past 2 days, does not respond as much. [facility] [place] Work Phone: 04-07-2025 Note [facility] Medical Records Department [address] [place] [address] History Physical Exam 04/07/252021 MR#: [id number] Acct: [id number] Name: KIMAIN COHEN Rep #: [id number] : 2000 24 From: Benjy Gonzalez MD PCP: Dr. Yessenia Dixon MD Status:ADM IN Location: [facility] TCU05-1 HPI - General General Date of Admission: 04/07/25 Date of Service: 04/07/25 Chief Complaint: Here for rehabilitation. HPI Narrative KIMANI COHEN, is a 24 F who presents with a history of migraines, otherwise no significant past medical history. 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 A RF EVD at , and on 03/04 was transferred to [facility] for Neurosurgical management. CTA head/neck completed and EVD was raised to 20. She went to Angio- [facility] AVM w b/l PICA, AICA, R [...] angio w severe posterior circulation spasm 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 and basilar, 10 IA verapamil to L vert, mild b/l ICA spasm, MRI brain patchy areas of restricted diffusion along the posteromedial bilateral cerebellar hemispheres and in the superior anterior left cerebellar hemisphere. 03/19 CTH min decr vents. 03/21 worsening exam, CTH incr vents, EVD lowered to 0, vCTH decr vents. 03/22 s/p RO VPS (Certas at 2), RF EVD removal, [facility] POC catheter in posn, incr vents, shunt dialed to 1, shunt series catheter distal to valve with sharp turn c/f kink. 03/23 CTH dcr vents, s/p PEG. 03/24 waxing and waning exam, horizontal nystagmus, EEG negative, CTH stable. 03/26 CTH stable. 03/28 1x emesis (green 100cc while pushing med through peg), CXR clear, 1x emesis (TF color, 200cc). 10/6/CTH min decreased vents. 03/30 GI consult for vomiting, reglan ordered. PT/OT recommended SNF. 04/01/2025 Admit to [facility] SNF for rehabilitation. 04/07/2025 Admit to TCU [...] bisacodyl 10 mg rectal suppository 10 mg [place] DAILY PRN constipation 04/07/25 Unknown History carboxymethylcellulose [...] digestion/nausea metoprolol tartr (more content not included)... [facility] Evaluation note Diagnosis Altered mental status, unspecified altered mental status type- Primary Altered mental status, unspecified altered mental status type S/P DOCUMENT CLERK shunt Presence of cerebrospinal fluid drainage device documented in this encounter [facility] [place] Work Phone: Advance Directives No Advanced Directives Records Found Date Activated Date Inactivated Comments 03/03/2025 10:34 PM Question Answer Comments Plan of Care: Code Status Discussion Completed Decision Maker: Patient Date Activated Date Inactivated Comments 03/03/2025 10:34 PM Question Answer Comments Plan of Care: Code Status Discussion Completed Decision Maker: Patient Summary Purpose Family History No Family History Records FoundNo Family History Records FoundNo Family History Records FoundNo Family History Records Found Additional Source Comments Care Teams (unrecognized sec tion and content) Fabrication And Assembly Supervisor Relationship Specialty Start Date End Date Generic Provider, No [place] [address] PCP - General Morgue Technician 03/03/25 Fabrication And Assembly Supervisor Relationship Specialty Start Date End Date Generic Provider, No [place] [address] PCP - General Morgue Technician 03/03/25 Reason for Visit (unrecogniz ed section and content) Reason Comments Altered Mental Status Specialty Diagnoses / Procedures Referred By Contac t Referred To Contact Diagnoses Altered mental status, unspecified altered mental status type Procedures [place] [address] [facility] Department [place] [address] Phone: tel: fax: [facility] [address] [place] [address] Phone: tel: fax: Referral ID Status Reason Start Date Expiration Date Visits Re quested Visits Authorized [id number] 1 1 Scheduled Active and Recently Administ ered Medications (unrecognized section and content) Medication Order 04/24/2025 04/25/2025 04/26/2025 famotidine (Pepcid) tablet 40 mg 40 mg, g-tube, 2 times daily, First dose on Anan 04/22/25 at 1030 0932 (Given - Provider: Alana Hayes RN)2139 (Given - Provider: Vanessa Prieto RN) 0838 (Given - Provider: Sarina Tabor RN)2014 (Given - Provider: Haven Baldwin RN) 0844 (Given - Provider: Lucy Mercado, FABIO)2100 (Due) fluconazole (Diflucan) tablet 200 mg 200 mg, g-tube, Daily, First dose on Sat04/22/25 at 1030, Coverage: Michelle, Non-albicans, Infection Site: Other, Specify: oral candidis 0932 (Given - Provider: Alana Hayes, RN) 0838 (Given - Provider: Sarina Tabor, FABIO) 0844 (Given - Provider: Lucy Mercado, FABIO) heparin (porcine) injection 5,000 Units 5,000 Units, subcutaneous, Every 8 hours, First dose on Sat04/21/25 at 1830 0224 (Not Given - Provider: Vanessa Prieto RN - Reason: Patient/family refused)0931 (Not Given - Provider: Alana Hayes RN - Reason: Patient/family refused)1830 (Return to [facility] - Provider: Meseret Cross RN - Comment: refused) 0210 (Not Given - Provider: Vanessa Prieto RN - Reason: Patient/family refused)0839 (Not Given - Provider: Sarina Tabor RN - Reason: Patient/family refused)1742 (Not Given - Provider: Sarina Tabor RN - Reason: Patient/family refused) 0248 (Not Given - Provider: Haven Baldwin RN - Reason: Patient/family refused)1017 (Given - Provider: Lucy Mercado, FABIO)1830 (Due) insulin lispro injection 0-5 Units 0-5 Units, subcutaneous, Every 6 hours, First dose (after last modification) on Sat04/22/25 at 0200, Do not hold when patient is not eating, continue order as scheduled for hyperglycemia management. Insulin Lispro Corrective Scale #1 Hypoglycemia protocol Call LIP unit(s) if Blood Glucose is between 0 - 70 mg/dL 0 unit(s) if Blood glucose is between 71-150 1 unit(s) if Blood glucose is between 151-200 2 unit(s) if Blood glucose is between 201-250 3 unit(s) if Bloodglucose is between 251-300 4 unit(s) if Blood glucose is between 301-350 5 unit(s) if Blood glucose is between 351-400 If blood glucose is greater than 400 mg/dL, give max insulin per sliding scale AND then contact provider. 0003 (Not Given - Provider: Vanessa Prieto RN - Reason: Order parameters not met)0614 (Not Given - Provider: Vanessa Prieto RN - Reason: Order parameters not met)1237 (Not Given - Provider: Alana Hayes RN - Reason: Order parameters not met)1702 (Not Given - Provider: Meseret Cross RN - Reason: Contraindicated) 0043 (Given - Provider: Vanessa Prieto RN)0605 (Given - Provider: Vanessa Prieto RN)1153 (Not Given - Provider: Sarina Tabor RN - Reason: Order parameters not met)1742 (Not Given - Provider: Sarina Tabor RN - Reason: Order parameters not met)2334 (Given - Provider: Haven Baldwin RN) 0526 (Given - Provider: Haven Baldwin RN)1203 (Given - Provider: Lucy Mercado RN)1800 (Due - Provider: Librado Mendoza, PharmD) LORazepam (Ativan) tablet 0.5 mg (COMPLETED) 0.5 mg, oral, Once, On 04/25/25 at 1045, For 1 dose, Prior to MRI 1045 (Given - Provider: Sarina Tabor RN) metoprolol tartrate (Lopressor) tablet 75 mg 75 mg, g-tube, 2 times daily, First dose on Anna 04/22/25 at 1030 0932 (Given - Provider: Alana Hayes, FABIO)2135 (Given - Provider: Vanessa Prieto RN) 0838 (Given - Provider: Sarina Tabor RN)2014 (Given - Provider: Haven Baldwin, FABIO) 0844 (Given - Provider: Lucy Mercado, FABIO)2100 (Due) polyethylene glycol (Glycolax, Miralax) packet 17 g 17 g, g-tube, 2 times daily, First dose (after last modification) on 04/25/25 at 0900, Bowel Regimen - for prevention of constipation. 0838 (Given - Provider: Sarina Tabor RN)2014 (Not Given - Provider: Haven Baldwin RN - Reason: Patient/family refused) 0807 (Not Given - Provider: Lucy Mercado RN - Reason: Contraindicated)2100 (Due) sennosides-docusate sodium (Britany-Colace) 8.6-50 mg per tablet 2 tablet (CANCELED) 2 tablet, g-tube, 2 times daily, First dose (after last modification) on Anna 04/22/25 at 2100, Bowel Regimen - for prevention of constipation Hold for loose stools 0932 (Given - Provider: Alana Hayes RN)2135 (Given - Provider: Vanessa Prieto RN) sennosides-docusate sodium (Britany-Colace) 8.6-50 mg per tablet 3 tablet 3 tablet, g-tube, 2 times daily, First dose (after last modification) on 04/25/25 at 0900, Bowel Regimen - for prevention of constipation Hold for loose stools 0838 (Given - Provider: Sarina Tabor RN)2014 (Not Given - Provider: Haven Baldwin RN - Reason: Patient/family refused) 0807 (Not Given - Provider: Lucy Mercado RN - Reason: Contraindicated)2100 (Due) vitamin B complex-vitamin C-folic acid (Nephrocaps) capsule 1 capsule 1 capsule, g-tube, Daily before breakfast, First dose on Anna 04/22/25 at 0700 0925 (Not Given - Provider: Alana Hayes RN - Reason: Patient/family refused) 0839 (Not Given - Provider: Sarina Tabor RN - Reason: Patient/family refused) 0844 (Given - Provider: Lucy Mercado RN) PRN Medication Order 04/24/2025 04/25/2025 04/26/2025 acetaminophen (Tylenol) tablet 650 mg 650 mg, g-tube, Every 6 hours PRN, pain mild (1-3), first line, Starting on 04/24/25 at 2315, If ordered PRN for pain, nurse is permitted to administer this medication for higher pain scores based on patient preference? Yes dextrose 50 % injection 12.5 g 12.5 g, intravenous, Every 15 min PRN, For blood glucose 41 to 70 mg/dL, Starting on Anna 04/22/25 at 0040, May repeat until blood glucose level reaches 100 mg/dL or greater. Push 2 - 3 mL/minute if patient has secure IV access. dextrose 50 % injection 25 g 25 g, intravenous, Every 15 min PRN, For blood glucose less than or equal to 40 mg/dL, Starting on Sat04/22/25 at 0040, May repeat until blood glucose level reaches 100 mg/dL or greater. Push 2 - 3 mL/minute if patient has secure IV access. glucagon (Glucagen) injection 1 mg 1 mg, intramuscular, Every 15 min PRN, blood glucose less than or equal to 40 mg/dL - see comments, For blood glucose less than or equal to 40 mg/dL and no IV access, Starting on Anna 04/22/25 at 0040, Give until blood glucose is 100 mg/dL or greater. If patient DOES NOT HAVE secure IV access & patient is unconscious, NPO or is unable to eat or drink. glucagon (Glucagen) injection 1 mg 1 mg, intramuscular, Every 15 min PRN, low blood sugar - see comments, For blood glucose less than or equal to 70 mg/dL and no IV access, Starting on Sat04/22/25 at 0040, Give until blood glucose is 100 mg/dL or greater. If patient DOES NOT HAVE secure IV access & patient is unconscious, NPO or is unable to eat or drink. melatonin tablet 5 mg 5 mg, oral, Nightly PRN, sleep, Starting on Sat04/22/25 at 2103 2215 (Given - Provider: Vanessa Prieto, FABIO) 203 (Given - Provider: Haven Baldwin RN) naloxone (Narcan) injection 0.2 mg 0.2 mg, intravenous, Every 5 min PRN, respiratory depression, Starting on Sat04/21/25 at 1822, If respiratory rate is less than 8 breaths/minute or patient is difficult to arouse stop any narcotics and contact physician. Administer slow IV push. Repeat as ordered until patient's respiratory rate is greater than 12 breaths/minute. ondansetron (Zofran) injection 4 mg 4 mg, intravenous, Every 6 hours PRN, nausea/vomiting, first line, Starting on Sat04/22/25 at 1433, When administering via IV Push, administer over 3-5 minutes. 1540 (Given - Provider: Lucy Rogelio, RN) INFORMATION SOURCE (unrecogn ized section and content) DATE CREATED AUTHOR 04/28/2025 [facility] DATE CREATED AUTHOR AUTHOR'S ORGANIZ ATION 05/06/2025 [facility] DATE CREATED AUTHOR AUTHOR'S ORGANIZ ATION 05/06/2025 [facility] [place] DATE CREATED AUTHOR AUTHOR'S ORGANIZ ATION 05/06/2025 [facility] FOR RECORDS PERTAINING TO PATIENTS WHO ARE [...] BE BASED ON THE PRIMARY CLINICAL RECORDS. [facility]. provides no warranty or guarantee of the accuracy or completeness of information in this document.
--- NOTE | 2025-05-24 20:06 | HP.PCM_ITS ---
HPI - General General Date of Admission: 05/24/25 Date of Service: 05/24/25 Chief Complaint: Here for rehabilitation. 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 Patient required EVD placement and angio for glue embolization of R PICA with intranidal aneurysms and partial nidus embo followed by decompressive SOC and C1 lami on 03/04/2025. She returned to angio on 03/05 for L PICA and R SCA feeder glue embo and again to the OR on 03/15 for SOC for AVM resection followed by angio with no residual AVM. Post operative MRI brain with patchy areas of restricted diffusion along the posteromedial bilateral cerebellar hemispheres and in the superior anterior left cerebellar hemisphere. She ultimately required RO VPS (Certas at 2) on 03/22 with RF EVD removal as well as PEG placement on 03/23. On 04/21 patient presented with worsening exam (not following commands x 1 day) with CT head at that time demonstrating decreased ventricles, certas dialed to 3. Patient admitted to the neurosurgery service and valve again dialed on [address] head with decreased ventricles. She was discharged to acute rehab on 04/26. A head CT obtained 05/03 as an outpatient with decreased ventricles and increased posterior fossa crowding with pneumocephalus. She unfortunately retured to the [facility] ED 05/05 with 2 days AMS. SS intact. MRI duffuse enhancement of resection cavity with foce of air concerning for infection. Patient admitted to the neurosurgery service for further management. 05/06 s/p wound washout and shunt externalization. CT head with post operative changes. 05/07 Episode of lethargy, not following commands, CT head with increased ventricles, Certas dialed to 3. ID consulted and recommended empiric IV vancomycin/cefepime pending culture results. ENT consulted for evaluation of known limited vocal cord mobility and recommended possible vocal cord injection during admission. 05/08 CT head with stable ventricles, s/p PICC. TTE EF 60%. Stopped following commands and CT head with minimal decrease in ventricles. PICC placed. 05/09 Externalized shunt dropped to -15. Drain removed. 05/10 1x 50cc tube feed emesis. CT head with decreased ventricles. 05/11 Certas dialed to 2. x 3 episodes of emesis. Final ID recommendations for IV Nafcillin 2g every 4 hours (tentative end ate 07/01). 05/12 GI consulted and recommended KUB with contrast through PEG to rule out obstruction. Nutrition recommended altering tbe feed to Vital 1.5 via PEG. ENT evaluated patient and noted improvement in vocal cord mobility, no further interventions recommended. T2 turbo MRI with stable ventricles. 05/13 Tubogram study complete without noted obstruction. 05/14 GI recommended continued PRN anti-emetics, no further interventions and signed off. 05/15 T2 turbo ventricles stable to minimally decreased. 05/18 s/p removal of externalize shunt, replace of RO shunt (Certas at 2). CT head with post operative changes. 05/21 T2 Turbo stable to min decr vents. PT/OT evaluated patient and recommended acute rehab placement at discharge. 05/24/2025 Admit to TCU with debility, here for rehabilitation, strengthening, prior to discharge home with family. [facility] Medical History Brain aneurysm Bleeding in brain due to brain aneurysm Hemorrhagic stroke Debility Home Medications ?Medication ?Instructions ?Recorded ?Last Taken ?Type B complex-vitamin C-folic acid ER 1 tab PO DAILY suppl ement 04/07/25 Unknown History 400 mcg tablet,extended release acetaminophen 325 mg/10.15 mL oral 650 mg feeding tube Q6H PRN pain 04/07/25 Unknown History solution (scale score 1-10) amantadine HCl 50 mg/5 mL oral 100 mg feeding tube BID 04/07/25 Unknown History solution involuntary movement bisacodyl 10 mg rectal suppository 10 mg NH DAILY PRN constipation 04/07/25 Unknown History carboxymethylcellulose sodium 1 % 1 drp EACH EYE DAILY PRN dry eyes 04/07/25 Unknown History eye drops (Artificial Tears (carboxymethylcellulose)) esomeprazole magnesium 40 mg 40 mg feeding tube BID re flux 04/07/25 Unknown History capsule,delayed release (Nexium) heparin (porcine) 5,000 unit/mL (1 5,000 unit subcut Q 8H prophylaxis 04/07/25 05/24/25 09:30 History mL) injection cartridge levetiracetam 500 mg/5 mL (5 mL) 500 mg feeding tube B ID seizures 04/07/25 Unknown History oral solution lorazepam 0.5 mg tablet (Ativan) 0.5 mg feeding tube Q 6H PRN mild 04/07/25 Unknown History restlessness/agitation lorazepam 1 mg tablet (Ativan) 1 mg feeding tube Q6H P RN 04/07/25 04/25/25 10:45 History nausea/vomiting and tachycardia metoclopramide HCl 5 mg/5 mL oral 5 mg feeding tube Q8 H 04/07/25 Unknown History solution digestion/nausea metoprolol tartrate 25 mg tablet 25 mg feeding tube Q1 2H BP/pulse 04/07/25 04/26/25 08:45 History nystatin 100,000 unit/mL oral 500,000 unit PO Q6H thru sh 04/07/25 Unknown History suspension ondansetron 4 mg disintegrating 4 mg feeding tube Q6H PRN nausea 04/07/25 Unknown History tablet polyethylene glycol 3350 17 17 g feeding tube BID cons tipation 04/07/25 05/19/25 History gram/dose oral powder sennosides 8.6 mg-docusate sodium 2 tab-cap PO BID bow els 04/07/25 05/19/25 History 50 mg capsule (Senna Plus) thiamine HCl (vitamin B1) 100 mg 100 mg feeding tube D AILY 04/07/25 Unknown History tablet supplement zinc sulfate 50 mg zinc (220 mg) 50 mg PO DAILY supple ment 04/07/25 Unknown History capsule (Orazinc) bacitracin 500 unit/gram topical 1 applic topical BID surgical 04/26/25 Unknown History ointment incision insulin lispro 100 unit/mL 5 unit subcut Q6H Tube feed 04/26/25 04/26/25 12:05 History subcutaneous pen (Humalog KwikPen (U-100) Insulin) melatonin 5 mg capsule 10 mg feeding tube QHS PRN s leep 04/26/25 04/25/25 20:30 History Lactobacillus acidophilus 1 tab feeding tube BID gut h ealth 05/24/25 Unknown History (Acidophilus chewable tablet) Saccharomyces boulardii 250 mg 250 mg PO BID gut healt h 05/24/25 05/24/25 History capsule (Daily Probiotic (S. boulardii)) famotidine 20 mg tablet (Acid 20 mg feeding tube BID s tomach acid 05/24/25 Unknown History Controller) nafcillin 2 gram intravenous 2 g IV Q4H infection 07/1805/24/25 09:30 History piggyback oxycodone 5 mg capsule 5 mg feeding tube Q6H PRN Se andrade 05/24/25 Unknown History pain 7-10 vitamin B complex and C 5 ml PO DAILY health mainten ence 05/24/25 Unknown History no.10-folic acid 900 mcg/5 mL oral liquid Allergy/AdvReac Type Severity Reaction Status Date / Time No Known Allergies Allergy Verified 04/07/25 14:14 Surgical History Status post insertion of percutaneous endoscopic gastrostomy (PEG) tube History of craniectomy Social History household members: spouse Smoking Status: Never smoker alcohol intake: never substance use type: does not use ROS Review of Systems ROS Unobtainable: due to mental condition Vital Signs Vital Signs Vital Signs: 05/24/25 16:13 05/24/25 17:00 Temperature 97.9 F Temperature Source Temporal Pulse Rate 113 H Pulse Rhythm Regular Pulse Strength Normal (2+) Respiratory Effort Normal Non-Labored Respiratory Depth Normal Respiratory Pattern Normal Blood Pressure 124/88 H Blood Pressure Mean 100 Blood Pressure Source Monitor Pulse Ox 98 Oxygen Delivery Method Room Air Room Air Physical Exam Const alert General Appearance: cooperative HEENT normocephalic Eyes PERRL and EOMs intact bilaterally Neck supple, no JVD and no carotid bruits Resp normal respiratory effort, normal air movement and clear to auscultation bilaterally Cardio regular rate and regular rhythm GI normal to inspection, nondistended, normoactive bowel sounds, non-tender and non-distended GI Narrative: PEG. Extremity normal capillary refill Extremity Narrative: PICC. General Extremity: Negative for edema Skin no rashes or lesions noted General Skin Exam: no breakdown Psych affect normal Appearance: appropriate Results Lab / Micro Data Labs: Laboratory Results - last 24 hr 05/24/25 18:41: POC Glucose 105 Assessment & Plan Assessment/Plan (1) Debility: (2) Brain aneurysm: (3) Hemorrhagic stroke: (4) Status post insertion of percutaneous endoscopic gastrostomy (PEG) tube: (5) Abscess: (6) Hydrocephalus: PLAN: Plan 25 year old female with past medical history significant for ruptured brain aneurysm hospitalized for cranial wound abscess, hydrocephalus, underwent suboccipital cranial wound washout and revision, mesh cranioplasty, shunt externalization and external ventricular wound placement 05/06/2025, underwent ventriculoperitoneal shunt internalization 05/18/2025, admitted to TCU with debility, here for rehabilitation, strengthening, intravenous antibiotics, prior to discharge home with family. * Debility - PT/OT. * Dysphagia - ST. * Pain - Tylenol 650mg q6, Oxycodone 5mg q6 prn. * Bowel - Miralax 17gm bid, Senna 2 tablets bid, Dulcolax 10mg pr daily prn. * Adult immunization - Administer pneumonia vaccine, covid vaccine, flu vaccine as appropriate. * DVT prophylaxis - Heparin 5000 units sc q8. * GERD - Pantoprazole 40mg bid, Famotidine 20mg bid. * Hypoglycemia - Glucagon 1mg im x 1 prn. * GI prophylaxis - Lactobacillus 1 capsule bid. * Insomnia - Melatonin 10mg qhs prn. * Tachycardia - Metoprolol 25mg q12. * Thrush - Nystatin 500,j000 units q6. * Nausea - Zofran odt 4mg q6 prn. * Cranial wound abscess - Oxacillin 2gm iv q4. * Dry eyes - Artificial tears ou daily prn. * Nutrition - Vital AF 1.2 45mL/hour via PEG. The following psychotropic medication was present on admission: Lorazepam 1mg q6 prn. Psychotropic medication therapy is indicated for a diagnosis of: anxiety/restlessness/sleep. Based on my clinical evaluation, continuation of the medication is necessary at this time. Gradual dose reduction plan (select one): ____ GDR will be attempted. Will monitor patient symptoms and behaviors in response to GDR. __x__ GRD contraindicated. Reason contraindicated: stable chronic use.
--- NOTE | 2025-05-24 20:50 | NURSING ---
CALLED PHARMACY, SPOKE TO JOVITA, ADVISED JOVITA THAT 1800 DOSE OF OXACILLIN WAS NOT SENT UP AND NEXT DOSE IS DUE IN A HOUR. JOVITA NOTIFIED NURSE THAT PHARMACY DOES NOT CARRY THAT ANTIBIOTIC, JOVITA TEXTED DR. PRATER TO SWITCH TO AMPICILLIN. ONCE AMPICILLIN IS MIXED PHARMACY WILL SEND TO FLOOR.
[2025-05-24] MEDS: Heparin Injection 5,000 UNITS/ML Syringe 5000 UNITS SC (22:05)
[2025-05-24] MEDS: Ampicillin 2 GM in 0.9% Normal Saline (100mL MB+) 100 ML IV (22:05)
[2025-05-24] MEDS: Lactobacillis Acidophilus 1 CAP GT (22:05)
[2025-05-24 22:06] VITALS: PULSE 154
--- NOTE | 2025-05-24 23:53 | NURSING ---
Per pharmacy continue IV ATB q4 per order. Pt missed first dose
[2025-05-25] VITALS (7 sets, daily range): BP systolic 102–120; BP diastolic 64–80; PULSE 103–136; RESP 12–16; TEMP 35.9–36.3; O2SAT 97–100
[2025-05-25] MEDS: Ampicillin 2 GM in 0.9% Normal Saline (100mL MB+) 100 ML IV ×2 (01:27→06:37)
[2025-05-25] MEDS: 0.9% Normal Saline (250mL Bag) 250 ML 15 ML IV ×2 (01:28→22:21)
[2025-05-25 05:53] LABS: Hematocrit 30.4 % (37-47); Hemoglobin 10.1 g/dL (12.0-15.0); Immature Granulocytes Count 0.080 X10^3/uL (0.0-0.0); Mean Corp Hgb Conc 33.2 g/dL (32-36); Mean Corpuscular Volume 86.4 fL (81-99); Mean Platelet Vol. 10.6 fl (6.2-12.0); NRBC Flagged by Analyzer 0 % (0-5); Platelet Count 325 K/mm3 (150-450); RBC Distribution Width CV 14.1 % (11.6-14.6); RBC Distribution Width SD 43.7 fl (35.1-43.9); Red Blood Count 3.52 M/mm3 (4.2-5.4); White Blood Count 5.6 K/mm3 (4.4-11.0)
[2025-05-25 06:17] LABS: Anion Gap 13 (5-15); BUN 9 mg/dL (4-19); BUN/Creat Ratio 21.9 RATIO (10-20); Calcium,Total 9.5 mg/dL (7.6-11.0); Carbon Dioxide 25.5 mmol/L (21.0-32.0); Chloride 99 mmol/L (98-108); Glucose 149 mg/dL (70-99); Potassium 3.5 mmol/L (3.3-5.1)
[2025-05-25] MEDS: Acetaminophen 650 MG/20 ML UDC GT ×2 (06:38→20:21)
[2025-05-25] MEDS: Heparin Injection 5,000 UNITS/ML Syringe 5000 UNITS SC (06:38)
[2025-05-25] MEDS: NYSTATIN 500,000 UNIT/5 ML UDC 500000 UNIT PO ×3 (06:38→18:07)
--- NOTE | 2025-05-25 09:33 | PCM.PN.DRR ---
Documented by User: Nel Redd 05/25/25 10:07 TCU RX Drug Regimen Review Subjective/Objective Subjective/Objective Subjective: TCU Admission. 25 YOF hospitalized for cranial wound abscess, hydrocephalus, underwent suboccipital cranial wound washout and revision, mesh cranioplasty, shunt externalization and external ventricular wound placement 05/06/2025, underwent ventriculoperitoneal shunt internalization 05/18/2025. Admitted to TCU with debility for strengthening, rehabilitation and IV antibiotics. Objective: Allergies No Known Allergies Allergy (Verified 04/07/25 14:14) Current Medications Generic Name Dose Route Start Last Admin Trade Name Freq PRN Reason Stop Dose Admin Acetaminophen 650 mg 05/25/25 08:00 Acetaminophen 650 Mg/20 Ml Udc GT Q6 PRN Pain Score 1-10 Bisacodyl 10 mg 05/24/25 16:11 Bisacodyl 10 Mg Suppository RC DAILY PRN CONSTIPATION Famotidine 20 mg 05/24/25 22:00 05/24/25 22:07 Famotidine 20 Mg Tablet GT 20 mg BID EVERTON Administration Glucagon 1 mg 05/24/25 16:11 Glucagon 1 Mg/Ml Syringe IM X1 PRN Hypoglycemia Protocol Glycerin/Hypromellose/Polyethylene 1 drp 05/24/25 16:28 Glycerin/Hypromellose/[id number] 15 Ml Bottle EACH EYE DAILY PRN dry eyes Heparin Sodium (Porcine) 5,000 units 05/24/25 22:00 05/25/25 06:38 Heparin Injection 5,000 Units/Ml Syringe SC 5,000 units Q8 EVERTON Administration Enteral Nutritional Formula 1,000 mls @ 45 mls/hr 05/24/25 16:10 05/24/25 18:14 Vital Af 1.2 Woodrow Liquid GT 45 mls/hr .[id number] EVERTON Administration Dextrose 250 mls @ 0 mls/hr 05/24/25 16:11 Dextrose 10%-Water IV .Q0M PRN HYPOGLYCEMIA Protocol As Directed Sodium Chloride 250 mls @ 15 mls/hr 05/24/25 23:22 05/25/25 01:28 IV 15 mls/hr .[id number] PRN Administration Saline Flush Sodium Chloride 250 mls @ 15 mls/hr 05/24/25 23:22 IV .[id number] PRN Additional IVPB Infusion Nafcillin Sodium 2 gm/ Sodium 100 mls @ 100 mls/hr 05/25/25 10:00 Chloride IV Q4 EVERTON Oxacillin Sodium 2 gm/ Sodium 100 mls @ 100 mls/hr 05/25/25 10:00 Chloride IV Q4 EVERT[place] Lorazepam 1 mg 05/24/25 16:11 Lorazepam 1 Mg Tablet GT Q6H PRN nausea/vomiting and tachycardia Melatonin 10 mg 05/24/25 16:29 Melatonin 10 Mg Tablet PO QHS PRN sleep Metoprolol Tartrate 25 mg 05/24/25 22:00 05/24/25 22:06 Metoprolol Tartrate 25 Mg Tablet GT 25 mg Q12 EVERTON Administration Protocol Nystatin 500,000 unit 05/24/25 18:00 05/25/25 06:38 Nystatin 500,000 Unit/5 Ml Udc PO 500,000 unit Q6 EVERT[place] Administration Ondansetron HCl 4 mg 05/24/25 16:16 Ondansetron Odt 4 Mg Tablet GT Q6H PRN NAUSEA Oxycodone HCl 5 mg 05/24/25 16:16 Oxycodone 5 Mg Tablet GT Q6H PRN Severe pain 7-10 Pantoprazole Sodium 40 mg 05/24/25 22:00 05/24/25 22:07 Pantoprazole Sodium 40 Mg Tablet PO 40 mg BID EVERT[place] Administration Polyethylene Glycol 17 gm 05/24/25 22:00 05/24/25 22:07 Polyethylene Glycol 3350 17 Gm Packet GT Not Given BID EVERTON Senna 2 tablet 05/24/25 22:00 05/24/25 22:07 Senna Tablet GT Not Given BID EVERTON Sodium Chloride 10 - 40 ml 05/24/25 16:11 0.9 % Nacl (Sterile) Posiflush 10 Ml IV UD PRN Port access or dressing change Sodium Chloride 10 - 40 ml 05/24/25 16:11 0.9% Saline Lock 10 Ml Syringe IV UD PRN Closed End PICC Flush Tuberculin PPD 0.1 ml 05/25/25 10:00 Tuberculin,Purif.Prot.Deriv. 50 Tu/Ml Vial ID 05/25/25 10:01 X1 ONE Tuberculin PPD 0.1 ml 06/01/25 10:00 Tuberculin,Purif.Prot.Deriv. 50 Tu/Ml Vial ID 06/01/25 10:01 X1 ONE Problem List Hydrocephalus (Acute) Abscess (Acute) Status post insertion of percutaneous endoscopic gastrostomy (PEG) tube (Acute) Debility (Acute) Hemorrhagic stroke (Acute) Brain aneurysm (Acute) Vital Signs Temp Pulse BP Pulse Ox O2 Del Method 97.9 F 154 H 124/88 H 98 Room Air 05/24/25 17:00 05/24/25 22:06 05/24/25 17:00 05/24/25 17:00 05/24/25 17:00 Oxygen Delivery Method Room Air Sodium 138 mmol/L (133-145) 05/25/25 05:27 Potassium 3.5 mmol/L (3.3-5.1) 05/25/25 05:27 Chloride 99 mmol/L (98-108) 05/25/25 05:27 Carbon Dioxide 25.5 mmol/L (21.0-32.0) 05/25/25 05:27 Anion Gap 13 (5-15) 05/25/25 05:27 BUN 9 mg/dL (4-19) 05/25/25 05:27 Creatinine 0.42 mg/dL (0.70-1.20) L 05/25/25 05:27 Est GFR (MDRD) Non-Af 141 (>60) 05/25/25 05:27 BUN/Creatinine Ratio 21.9 RATIO (10-20) H 05/25/25 05:27 Glucose 149 mg/dL (70-99) H 05/25/25 05:27 Assessment/Plan: 1. Pain: acetaminophen 650mg GT Q6H PRN pain 1-10 and oxycodone 5mg GT Q6H PRN pain 7-10. Resident has not used any prn doses at this time. Monitor pain scores before/after prn administration for response, PRN pain medication usage, symptoms of pain/resident distress and ability to participate in therapy. 2. Bowel: Miralax 17gm GT BID, senna 2T GT BID and bisacodyl 10mg RC daily PRN constipation. Resident has not used any prn doses at this time. Last document bowel movement:05/24/25. Monitor for usage of prn medications, abdominal pain, frequency of bowel movements, diarrhea. Recommend holding bowel regimen if resident develops diarrhea. 3. DVT prophylaxis: heparin 5000units SC Q8. Monitor for symptoms of VTE (new onset leg pain, swelling, erythema, SOB, chest pain, hypoxia) and bleeding. Please continue to monitor hemoglobin (last 10.1g/dL) and platelets (last 325,000). 4. Cranial wound abscess: nafcillin 2gm IV Q4 or oxacillin 2gm IV q4 thru 07/01/24. Oxacillin has limited availability, will see if more can be obtained tomorrow. Ordering in both nafcillin and oxacillin until termite control technician availability is determined. Please continue to monitor for S/S of infection, diarrhea, rash, renal function, seizures. 5. GERD: lansoprazole 30mg GT BID and famotidine 20mg GT BID. Monitor for diarrhea (consider possibility of C. diff if develops). Consider serum magnesium level and B12 level with long-term use if indicated. If clinically appropriate, consider dose reduction/weaning of medication due to termite control technician risks of C. diff and fractures (Beers). 6. Tachycardia: metoprolol tartrate 25mg GT Q12. Monitor for bradyarrhythmia, fatigue, sleep disturbance and for new/worsening heart failure symptoms. For diabetic patients, monitor glucose. Please continue to monitor HR (range 113-154) and BP (last 124/88). Please consider increasing metoprolol to 50mg due to elevated HR. Thanks. 7. GI prophylaxis: lactobacillus 1 capsule GT BID. Please continue to monitor for constipation and diarrhea. 8. Insomnia: melatonin 10mg GT QHS PRN. Resident has had 1 dose so far. Please continue to monitor for excessive daytime drowsiness and insomnia. 9. Thrush: nystatin 500,000units PO Q6. Please continue to monitor for S/S of thrush. 10. Nausea: ondansetron 4mg ODT GT Q6H PRN nausea. Resident has not used any prn doses at this time. Please continue to monitor for PRN usage and nausea. 11. Dry eyes: Artificial tears 1gtt OU daily PRN dry eyes. Resident has not used any prn doses at this time. Please continue to monitor for PRN usage and dry eyes. 12. Hypoglycemia: glucagon 1mg IM x1 PRN hypoglycemia. Please continue to monitor glucose. Assessment/Plan for indications treated with psychotropic medications: 1. Anxiety/restlessness/sleep: lorazepam 1mg PO Q6H PRN nausea/vomiting and tachycardia. PRN reason dose not match documented indication. Please consider changing PRN reason. Thanks. Resident has not used any prn doses at this time. Please see physician note regarding GDR. Monitor for sedation, mental status and cognition. Monitor for falls (risk factor for falls) and implement fall prevention strategies. Monitor for respiratory depression. Monitor prn usage and efficacy of prn doses including resident symptoms, behaviors and indications of distress. Monitor for tolerability including mental status, cognition, excessive sleepiness, withdrawal or decreased participation in activities and decline in physical functioning. Maximize use of nonpharmacologic/behavior interventions to minimize use of prn medication. Prn psychotropic order must be renewed at 14 days per policy. Evaluate continued need for medication, effect of prn medication on resident?s symptoms/distress and tolerability to determine the appropriateness of order renewal. Medical chart and medication regimen reviewed. The following medication irregularities or issues were identified: 1. Metoprolol tartrate 25mg GT Q12. Please consider increasing metoprolol to 50mg due to elevated HR (113 and 154) if clinically appropriate. Thanks. 2. Anxiety/restlessness/sleep: lorazepam 1mg PO Q6H PRN nausea/vomiting and tachycardia. PRN reason dose not match documented indication. Please consider changing PRN reason. Thanks. Date Date of Note: 05/25/25 Documented by User: Dr. Benjy Gonzalez MD 05/25/25 11:21 TCU RX Drug Regimen Review Provider Comments Provider responsibility Provider Comments to Recommendations by Pharmacy Agree
[2025-05-25] MEDS: NAFCILLIN IV ×4 (10:07→22:32)
[2025-05-25] MEDS: NORMAL SALINE 0.9% IV ×4 (10:07→22:32)
[2025-05-25] MEDS: Lactobacillis Acidophilus 1 CAP GT ×2 (10:39→20:01)
[2025-05-25] MEDS: 0.9 % NaCl (Sterile) Posiflush 10 mL IV ×3 (11:30→17:46)
[2025-05-25] MEDS: Heparin Injection (Vial) 5,000 UNIT/ML VIAL 5000 UNIT SC ×2 (13:27→20:01)
[2025-05-25] MEDS: Jevity 1.5 1,000 ML 20 ML GT (17:43)
[2025-05-25] MEDS: MELATONIN 10 MG TABLET PO (19:59)
[2025-05-25] MEDS: 0.9% Saline Lock 10 ML Syringe IV (22:21)
[2025-05-26 00:38] VITALS: PULSE 110; RESP 15; O2SAT 99
[2025-05-26] MEDS: NORMAL SALINE 0.9% IV ×4 (01:38→13:44)
[2025-05-26] MEDS: NAFCILLIN IV ×4 (01:38→13:44)
[2025-05-26] MEDS: Heparin Injection (Vial) 5,000 UNIT/ML VIAL 5000 UNIT SC ×3 (05:50→21:12)
[2025-05-26 06:00] VITALS: BMI 15.8
--- NOTE | 2025-05-26 06:48 | NURSING ---
This nurse and CARTRIDGE FEEDER attempted to obtain daily weight. Patient's prefers to get her weight using bed scale to reduce patient's stress/anxiety. However, patient's bed scale is not functioning. Patient sleeping at this time, does not want to wake her for a standing scale or scotty weight. Therapy states a standing scale would not be appropriate for the patient since she is a Ax2 arm-and-arm and is unable to stabilize herself using a walker or the bars on the standing scale.
[2025-05-26 09:34] VITALS: PULSE 116
[2025-05-26] MEDS: Lactobacillis Acidophilus 1 CAP GT ×2 (09:35→21:32)
[2025-05-26] MEDS: 0.9 % NaCl (Sterile) Posiflush 10 mL IV ×2 (09:36→13:47)
[2025-05-26 09:50] VITALS: BP 121/84; PULSE 116; RESP 17; TEMP 36.4; O2SAT 99
[2025-05-26] MEDS: NYSTATIN 500,000 UNIT/5 ML UDC 500000 UNIT PO ×2 (11:10→17:41)
--- NOTE | 2025-05-26 13:08 | NURSING ---
Left VM with Kathrin CHIN with plastic surgery team. Asked about completing CT scan here prior to appt and wanted to clarify appt date/time. Requested return call.
[2025-05-26 15:55] VITALS: BP 96/66; PULSE 89; RESP 12; TEMP 36.4; O2SAT 100
--- NOTE | 2025-05-26 16:33 | NURSING ---
Addendum entered by Geraldine Candelaria 05/27/25 10:50: Spoke with Linda at Dr. Childers's office, asked if ok to complete CT scan here. She said it is fine to complete here, will complete on 06/02/25 and send images to . Updated . Original Note: Kathrin with plastic surgery called to return Geraldine's call regarding appt. She states Grzegorz does have an appt scheduled on 06/03 at [facility] at 0930. She also states that neurosurgery ordered CT to be done and that she expected they assumed it would be done while patient is at on 06/03 but she doesn't see why it can't be done at [facility], but we can check with neurosurgery to confirm.
[2025-05-26] MEDS: Jevity 1.5 1,000 ML 50 ML GT (17:31)
[2025-05-26 21:05] VITALS: BP 108/75; PULSE 103; RESP 16; O2SAT 97
[2025-05-26 21:11] VITALS: BP 108/75; PULSE 103
[2025-05-26] MEDS: Senna Tablet 2 TABLET GT (21:11)
[2025-05-26] MEDS: 0.9% Normal Saline (250mL Bag) 250 ML 15 ML IV (21:43)
[2025-05-26] MEDS: MELATONIN 10 MG TABLET PO (21:43)
[2025-05-27 00:17] VITALS: BMI 16.5
[2025-05-27] MEDS: 0.9 % NaCl (Sterile) Posiflush 10 mL IV ×3 (00:58→21:17)
[2025-05-27] MEDS: Acetaminophen 650 MG/20 ML UDC GT (01:59)
[2025-05-27] MEDS: Heparin Injection (Vial) 5,000 UNIT/ML VIAL 5000 UNIT SC ×3 (06:19→21:03)
[2025-05-27 08:56] VITALS: BP 105/65; PULSE 88; RESP 16; TEMP 36.2; O2SAT 97
[2025-05-27 08:59] VITALS: PULSE 88
[2025-05-27] MEDS: Lactobacillis Acidophilus 1 CAP GT ×2 (08:59→21:03)
[2025-05-27] MEDS: NYSTATIN 500,000 UNIT/5 ML UDC 500000 UNIT PO ×2 (12:00→18:28)
--- NOTE | 2025-05-27 12:08 | NURSING ---
Physicians cot transport set up for appt with plastic surgeon 06/03/25 with a pickup of 0730. They said they will call back if they have any concerns with insurance covering.
[2025-05-27] MEDS: Jevity 1.5 1,000 ML 50 ML GT (13:30)
[2025-05-27] MEDS: 0.9% Saline Lock 10 ML Syringe IV ×2 (14:17→18:29)
[2025-05-27] MEDS: Senna Tablet 2 TABLET GT ×2 (18:36→21:17)
[2025-05-27] MEDS: Polyethylene Glycol 3350 17 GM PACKET GT (18:37)
[2025-05-27 21:12] VITALS: BP 129/88; PULSE 117
[2025-05-27] MEDS: MELATONIN 10 MG TABLET PO (21:17)
[2025-05-28] MEDS: 0.9 % NaCl (Sterile) Posiflush 10 mL IV ×4 (02:04→18:47)
[2025-05-28 06:00] VITALS: BMI 16.5
[2025-05-28] MEDS: Heparin Injection (Vial) 5,000 UNIT/ML VIAL 5000 UNIT SC ×3 (06:12→20:47)
[2025-05-28] MEDS: NYSTATIN 500,000 UNIT/5 ML UDC 500000 UNIT PO ×3 (06:13→18:50)
[2025-05-28 09:27] VITALS: BP 118/65; PULSE 119; RESP 18; TEMP 36.4; O2SAT 98
[2025-05-28 09:28] VITALS: PULSE 119
[2025-05-28] MEDS: Lactobacillis Acidophilus 1 CAP GT ×2 (09:28→20:46)
[2025-05-28] MEDS: Senna Tablet 2 TABLET GT (09:32)
[2025-05-28] MEDS: Polyethylene Glycol 3350 17 GM PACKET GT (09:37)
--- NOTE | 2025-05-28 10:11 | MDS.RN ---
MDS Entry Tracker and Pain assessment for MDS complete.
--- NOTE | 2025-05-28 10:45 | NURSING ---
Hospital Social Worker Note; Activity Asset: Em Lantigua has returned to TCU and continues to have family w/here daily. Her monogram technician visits, family welcomes therapy dog and will play music for her. is by her side daily. staff will continue to offer 1.1 activities, manicures and respect the families right to say no.
[2025-05-28] MEDS: 0.9% Normal Saline (250mL Bag) 250 ML 15 ML IV (10:54)
[2025-05-28] MEDS: Jevity 1.5 1,000 ML 50 ML GT (11:00)
[2025-05-28 16:00] VITALS: BP 110/81; PULSE 95; RESP 18; TEMP 36.5; O2SAT 100
--- NOTE | 2025-05-28 17:19 | CHAPLAIN ---
Type of Pastoral Visit _x__ Initial Visit ___ Follow-up Visit ___ On-call Visit ___ General Patient Visit ___ Spiritual Assessment ___ Family Conference ___ Bereavement ___ Rapid Response ___ Code Blue ___ Other (describe below) Pastoral Care Referral From ___ Patient ___ Family ___ Nurse ___ Physician ___ Chemical Engineer ___ Psychologist Industrial Organizational _x__ Other (describe below) Sacrament/Intervention _x__ Active listening ___ Anointing ___ Sabianism ___ Bereavement ___ Communion ___ Rose exploration ___ ___ Life review ___ Prayer ___ Reconciliation ___ Sacrament of Sick _x__ Supportive presence ___ Wedding ___ Other (describe below) Pastoral Comments patient was transferred out for another surgery and has returned to TCU this week; mother and are with her; pt is quiet but with eyes open; pt does not respond to greeting from this keyliner; spouse admits to being tired but is pleasant; mother does more of the talking and information giving; pt just recently had her birthday and evidences of balloons and cards are in the room; offer of support to family and additional offer for next week too
[2025-05-28] MEDS: Acetaminophen 650 MG/20 ML UDC GT (20:45)
[2025-05-28] MEDS: MELATONIN 10 MG TABLET PO (20:45)
[2025-05-28] MEDS: 0.9% Saline Lock 10 ML Syringe IV (20:45)
[2025-05-28 20:48] VITALS: BP 127/79; PULSE 110
[2025-05-28 21:06] VITALS: BP 127/79; PULSE 110
[2025-05-29 02:13] VITALS: PULSE 103; RESP 14; O2SAT 99
[2025-05-29] MEDS: Acetaminophen 650 MG/20 ML UDC GT ×2 (02:47→22:03)
[2025-05-29] MEDS: Heparin Injection (Vial) 5,000 UNIT/ML VIAL 5000 UNIT SC ×3 (05:43→21:52)
[2025-05-29] MEDS: NYSTATIN 500,000 UNIT/5 ML UDC 500000 UNIT PO ×3 (05:44→18:35)
[2025-05-29] MEDS: Jevity 1.5 1,000 ML 60 ML GT (05:56)
[2025-05-29 06:00] VITALS: BMI 16.8
[2025-05-29] MEDS: 0.9% Saline Lock 10 ML Syringe IV ×3 (06:01→22:15)
[2025-05-29 10:51] VITALS: BP 116/73; PULSE 109; RESP 18; TEMP 36.6; O2SAT 100
[2025-05-29 10:54] VITALS: PULSE 109
[2025-05-29] MEDS: Lactobacillis Acidophilus 1 CAP GT ×2 (10:54→21:52)
[2025-05-29] MEDS: Senna Tablet 2 TABLET GT (11:01)
[2025-05-29 21:00] VITALS: BP 99/69; PULSE 95
[2025-05-29 21:51] VITALS: BP 119/79; PULSE 120
[2025-05-29 21:52] VITALS: PULSE 120
[2025-05-29] MEDS: MELATONIN 10 MG TABLET PO (22:03)
[2025-05-30] MEDS: Jevity 1.5 1,000 ML 60 ML GT ×2 (01:43→23:15)
[2025-05-30] MEDS: 0.9% Saline Lock 10 ML Syringe IV ×3 (02:00→23:30)
[2025-05-30] MEDS: Acetaminophen 650 MG/20 ML UDC GT ×2 (04:04→10:19)
--- NOTE | 2025-05-30 04:29 | NURSING ---
25 mL of residual noted during medication administration at 0400.
[2025-05-30 06:00] VITALS: BMI 17.2
--- NOTE | 2025-05-30 06:15 | NURSING ---
Pt's , Ton, requests that only IV antibiotics be given at 0600 this AM. Pt did not sleep well last night, finally resting with eyes closed, respirations even and equal bilaterally. Held kyle heparin and nystatin swish and swallow per request.
[2025-05-30 10:17] VITALS: PULSE 130
[2025-05-30] MEDS: Lactobacillis Acidophilus 1 CAP GT ×2 (10:17→23:00)
[2025-05-30 13:19] VITALS: BP 134/96; PULSE 130; RESP 18; O2SAT 97
[2025-05-30] MEDS: Heparin Injection (Vial) 5,000 UNIT/ML VIAL 5000 UNIT SC ×2 (14:17→23:00)
--- NOTE | 2025-05-30 17:29 | NURSING ---
Pt more restless this shift. Tylenol 650 mg given with positive effects, fell asleep and was less restless. Family concerned about shunt placement as patient has indicated to them she has a headache. Dr. Gonzalez updated and new order for CT scan of head without contrast to be ordered. Pt also has CT scheduled for 06-02.
--- NOTE | 2025-05-30 20:15 | NURSING ---
Addendum entered by Antonio Echevarria 05/30/25 22:49: Pt returned to unit at 2245 via bed. 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 Felice Camilo updated on changes to plan of care and appreciative. Original Note: Updated Dr. Gonzalez via telephone of pt's CT results. New order to send pt to ED. Order verified via readback.
[2025-05-30 22:55] VITALS: BP 115/83; PULSE 114
[2025-05-30 23:01] VITALS: PULSE 114
[2025-05-30] MEDS: Acetaminophen 650 MG/20 ML UDC 1000 MG GT (23:02)
[2025-05-30] MEDS: 0.9 % NaCl (Sterile) Posiflush 10 mL IV (23:15)
[2025-05-30] MEDS: MELATONIN 10 MG TABLET PO (23:16)
--- NOTE | 2025-05-31 02:08 | NURSING ---
Pt's approached this nurse and states pt had moderate amount of emesis. Unable to measure amount of emesis. Pt's and mother completed hygiene for pt. Pt's expressing concerns related to tube feeding settings and water flushes. Written communication left for Dr. Gonzalez
[2025-05-31 03:18] VITALS: PULSE 100; O2SAT 98
[2025-05-31] MEDS: 0.9% Saline Lock 10 ML Syringe IV (06:06)
--- NOTE | 2025-05-31 08:05 | NURSING ---
Updated Dr. Gonzalez requesting resident be sent to [facility] ER, Physicians cot transport set up for [phone]. Updated family in room.
[2025-05-31 09:31] VITALS: PULSE 128
[2025-05-31] MEDS: Lactobacillis Acidophilus 1 CAP GT (09:31)
[2025-05-31 09:49] VITALS: BP 156/94; PULSE 128; RESP 17; TEMP 36.4; O2SAT 97
--- NOTE | 2025-05-31 10:16 | NURSING ---
Pt picked up by physician ambulance, pt being transferred to ER d/t mental status change.
--- NOTE | 2025-05-31 10:49 | NURSING ---
Cabinet Installer Note; MDS for 05/31/2025 Complete
--- NOTE | 2025-05-31 19:11 | PCM.DC.SUM ---
Providers Date of Admission: 05/24/25 Primary Care Physician: Dr. Yessenia Murphy MD Reason For Visit: [employer]UNT Diagnosis Discharge Diagnosis (1) Debility: Status: Acute Code(s): R53.81 - Other malaise (2) Brain aneurysm: Status: Acute Code(s): I67.1 - Cerebral aneurysm, nonruptured (3) Hemorrhagic stroke: Status: Acute Code(s): I61.9 - Nontraumatic intracerebral hemorrhage, unspecified (4) Status post insertion of percutaneous endoscopic gastrostomy (PEG) tube: Status: Acute Code(s): Z93.1 - Gastrostomy status (5) Abscess: Status: Acute Code(s): L02.91 - Cutaneous abscess, unspecified (6) Hydrocephalus: Status: Acute Code(s): G91.9 - Hydrocephalus, unspecified Plan 25 year old female with past medical history significant for ruptured brain aneurysm hospitalized for cranial wound abscess, hydrocephalus, underwent suboccipital cranial wound washout and revision, mesh cranioplasty, shunt externalization and external ventricular wound placement 05/06/2025, underwent ventriculoperitoneal shunt internalization 05/18/2025, admitted to TCU with debility, here for rehabilitation, strengthening, intravenous antibiotics, prior to discharge home with family. Debility - PT/OT. Dysphagia - ST. Pain - Tylenol 650mg q6, Oxycodone 5mg q6 prn. Bowel - Miralax 17gm bid, Senna 2 tablets bid, Dulcolax 10mg pr daily prn. Adult immunization - Administer pneumonia vaccine, covid vaccine, flu vaccine as appropriate. DVT prophylaxis - Heparin 5000 units sc q8. GERD - Pantoprazole 40mg bid, Famotidine 20mg bid. Hypoglycemia - Glucagon 1mg im x 1 prn. GI prophylaxis - Lactobacillus 1 capsule bid. Insomnia - Melatonin 10mg qhs prn. Tachycardia - Metoprolol 25mg q12. Thrush - Nystatin 500,j000 units q6. Nausea - Zofran odt 4mg q6 prn. Cranial wound abscess - Oxacillin 2gm iv q4. Dry eyes - Artificial tears ou daily prn. Nutrition - Vital AF 1.2 45mL/hour via PEG. The following psychotropic medication was present on admission: Lorazepam 1mg q6 prn. Psychotropic medication therapy is indicated for a diagnosis of: anxiety/restlessness/sleep. Based on my clinical evaluation, continuation of the medication is necessary at this time. Gradual dose reduction plan (select one): ____ GDR will be attempted. Will monitor patient symptoms and behaviors in response to GDR. __x__ GRD contraindicated. Reason contraindicated: stable chronic use. Medications at Discharge Home Medications B complex-vitamin C-folic acid ER 400 mcg tablet,extended release 1 tab PO DAILY supplement 04/07/25 acetaminophen 325 mg/10.15 mL oral solution 650 mg feeding tube Q6H PRN pain (scale score 1-10) 04/07/25 amantadine HCl 50 mg/5 mL oral solution 100 mg feeding tube BID involuntary movement 04/07/25 bisacodyl 10 mg rectal suppository 10 mg PA DAILY PRN constipation 04/07/25 carboxymethylcellulose sodium 1 % eye drops (Artificial Tears (carboxymethylcellulose)) 1 drp EACH EYE DAILY PRN dry eyes 04/07/25 esomeprazole magnesium 40 mg capsule,delayed release (Nexium) 40 mg feeding tube BID reflux 04/07/25 heparin (porcine) 5,000 unit/mL (1 mL) injection cartridge 5,000 unit subcut Q8H prophylaxis 04/07/25 levetiracetam 500 mg/5 mL (5 mL) oral solution 500 mg feeding tube BID seizures 04/07/25 lorazepam 0.5 mg tablet (Ativan) 0.5 mg feeding tube Q6H PRN mild restlessness/agitation 04/07/25 lorazepam 1 mg tablet (Ativan) 1 mg feeding tube Q6H PRN nausea/vomiting and tachycardia 04/07/25 metoclopramide HCl 5 mg/5 mL oral solution 5 mg feeding tube Q8H digestion/nausea 04/07/25 metoprolol tartrate 25 mg tablet 25 mg feeding tube Q12H BP/pulse 04/07/25 nystatin 100,000 unit/mL oral suspension 500,000 unit PO Q6H thrush 04/07/25 ondansetron 4 mg disintegrating tablet 4 mg feeding tube Q6H PRN nausea 04/07/25 polyethylene glycol 3350 17 gram/dose oral powder 17 g feeding tube BID constipation 04/07/25 sennosides 8.6 mg-docusate sodium 50 mg capsule (Senna Plus) 2 tab-cap PO BID bowels 04/07/25 thiamine HCl (vitamin B1) 100 mg tablet 100 mg feeding tube DAILY supplement 04/07/25 zinc sulfate 50 mg zinc (220 mg) capsule (Orazinc) 50 mg PO DAILY supplement 04/07/25 bacitracin 500 unit/gram topical ointment 1 applic topical BID surgical incision 04/26/25 insulin lispro 100 unit/mL subcutaneous pen (Humalog KwikPen (U-100) Insulin) 5 unit subcut Q6H Tube feed 04/26/25 melatonin 5 mg capsule 10 mg feeding tube QHS PRN sleep 04/26/25 Lactobacillus acidophilus (Acidophilus chewable tablet) 1 tab feeding tube BID gut health 05/24/25 Saccharomyces boulardii 250 mg capsule (Daily Probiotic (S. boulardii)) 250 mg PO BID gut health 05/24/25 famotidine 20 mg tablet (Acid Controller) 20 mg feeding tube BID stomach acid 05/24/25 nafcillin 2 gram intravenous piggyback 2 g IV Q4H infection 05/24/25 oxycodone 5 mg capsule 5 mg feeding tube Q6H PRN Severe pain 7-10 05/24/25 vitamin B complex and C no.10-folic acid 900 mcg/5 mL oral liquid 5 ml PO DAILY health maintenence 05/24/25 Hospital Course Operations - (See below.) Procedures None Summary of Care Provided Minutes Spent on Discharge: 35 Hospital Course: 25 year old female with past medical history significant for ruptured brain aneurysm hospitalized for cranial wound abscess, hydrocephalus, underwent suboccipital cranial wound washout and revision, mesh cranioplasty, shunt externalization and external ventricular wound placement 05/06/2025, underwent ventriculoperitoneal shunt internalization 05/18/2025, admitted to TCU with debility, here for rehabilitation, strengthening, intravenous antibiotics, prior to discharge home with family. 05/30/2025 Grzegorz had change in status, restless, decorticate posturing noted. 05/30/2025 CT head no contrast: FINDINGS: There is craniotomy change in the occipital region with vascular clips and trace amount of air at the surgical site and posterior fossa. Clinical correlation is recommended. There is a shunt in the right with its tip centrally located. There is low-density throughout the midbrain and irene and in the right and left cerebellar hemispheres consistent with diffuse edema, similar to the prior. There is effacement of the basal cisterns. CT/Brain/Head without Contrast IMPRESSION: Stable pathological CT findings when compared to prior exams. No acute intracranial hemorrhage. [facility]charge [facility] 05/31/2025 for evaluation, admission to hospital for change in mental status. Physical Exam Const alert General Appearance: cooperative HEENT normocephalic Eyes PERRL and EOMs intact bilaterally Neck supple, no JVD and no carotid bruits Resp normal respiratory effort, normal air movement and clear to auscultation bilaterally Cardio regular rate and regular rhythm GI normal to inspection, nondistended, normoactive bowel sounds, non-tender and non-distended GI Narrative: PEG. Extremity normal capillary refill Extremity Narrative: PICC. General Extremity: Negative for edema Skin no rashes or lesions noted General Skin Exam: no breakdown Neuro Neuro Narrative: Restlessness, no purposeful movement. Speech: speech abnormal Details: Positive for complete aphasia Psych affect normal Appearance: appropriate Medical Records Data Medical Nutrition Assessment Dietitian: Malnutrition Criteria Met Start: 05/25/25 16:33 Freq: Status: Active Protocol: Document 05/28/25 14:28 SLA (Rec: 05/28/25 14:28 SLA [id number]) Nutrition Malnutrition Evidence of Yes Malnutrition Exists Malnutrition (severe Chronic ): Evidenced By Weight Loss (Severe),Physical Changes (Severe) Intake Problem Increased Nutrient Needs (specify) Etiology (calories and protein) related to wound healing, clinical factors causing increased energy expenditure Signs/Symptoms evidenced by multiple recent surgeries, multiple surgical incisions, constant involuntary body movements Status Active Problem Clinical Problem Chronic Disease or Condition Related Malnutrition Etiology related to hemorrhagic stroke, brain aneurysm leading to multiple surgeries, debility and reliance on PEG tube feeding within the last three months Signs/Symptoms Suspected ~18-22% weight loss x 3 months, muscle and adipose tissue wasting of entire body Status Active Problem Recommendation Dietitian Increase tf to Jevity 1.5 at goal 60 ml/hr for 22 hours Recommendations/ /day w/ 160 ml water flush every 4 hours to provide Changes 1980 rico/ 84 gm pro/ 1963 ml free water/day. Weight / BMI Weight Weight: 42.638 kg Body Mass Index (BMI) 17.2 ABG / Lab / Microbiology Data 05/25/25 05:27 05/25/25 05:27 Laboratory: Laboratory Results - last 24 hr 05/31/25 06:02: POC Glucose 131 H D/C Instructions Discharge Activity: Return to Normal Activity Call your doctor if you observe: Fever of 101 or Higher, Inability to urinate, Inability to have a bowel movement, Shortness of breath, Dizziness, Fainting spells, Swelling in the ankles, Chest pain and Uncontrolled pain DC O2, CPAP, BIPAP Needs Home O2 Discharge instructions: No Additional Instructions: Discharge to [facility] 05/31/2025 for evaluation, admission to hospital for change in mental status. Please Follow Up With: Plastic surgery Meaningful Use Info Meaningful Use Meaningful Use Diagnoses (Choose all that apply): None applicable Discharge Plan Admission Admit Date/Time: 05/24/25 15:30 Primary Reason for Your Visit: Debility. Attending Provider: Benjy Gonzalez Chi Primary Care Provider: Yessenia Murphy Instructions Additional Instructions / Restrictions: Discharge to [facility] 05/31/2025 for evaluation, admission to hospital for change in mental status. Discharge Orders/Prescriptions Prescriptions: No Action melatonin 5 mg capsule 10 mg feeding tube QHS PRN (Reason: sleep) bacitracin 500 unit/gram ointment 1 applic topical BID insulin lispro [Humalog KwikPen Insulin] 100 unit/mL insulin pen 5 unit subcut Q6H Rx Instructions: 0-5 units. Take as directed per insulin instructions Acidophilus Tablet,Chewable 1 tab feeding tube BID famotidine [Acid Controller] 20 mg tablet 20 mg feeding tube BID nafcillin 2 gram piggyback 2 g IV Q4H oxycodone 5 mg capsule 5 mg feeding tube Q6H PRN (Reason: Severe pain 7-10) Saccharomyces boulardii [Daily Probiotic (S. boulardii)] 250 mg capsule 250 mg PO BID B complex and C 10-folic acid 900 mcg/5 mL liquid 5 ml PO DAILY acetaminophen 325 mg/10.15 mL solution 650 mg feeding tube Q6H PRN (Reason: pain (scale score 1-10)) amantadine HCl 50 mg/5 mL solution 100 mg feeding tube BID Artificial Tears (cmc) 1 % drops 1 drp EACH EYE DAILY PRN (Reason: dry eyes) lorazepam [Ativan] 0.5 mg tablet 0.5 mg feeding tube Q6H PRN (Reason: mild restlessness/agitation) lorazepam [Ativan] 1 mg tablet 1 mg feeding tube Q6H PRN (Reason: nausea/vomiting and tachycardia) B complex-vitamin C-folic acid 400 mcg tablet extended release 1 tab PO DAILY Patient Comments: Please change to g-tube bisacodyl 10 mg suppository 10 mg PA DAILY PRN (Reason: constipation) heparin (porcine) 5,000 unit/mL (1 mL) cartridge 5,000 unit subcut Q8H levetiracetam 500 mg/5 mL (5 mL) solution 500 mg feeding tube BID metoclopramide HCl 5 mg/5 mL solution 5 mg feeding tube Q8H metoprolol tartrate 25 mg tablet 25 mg feeding tube Q12H esomeprazole magnesium [Nexium] 40 mg capsule,delayed release(DR/EC) 40 mg feeding tube BID nystatin 100,000 unit/mL suspension 500,000 unit PO Q6H Rx Instructions: administer 1/2 of dose in each side of the mouth ondansetron 4 mg tablet,disintegrating 4 mg feeding tube Q6H PRN (Reason: nausea) polyethylene glycol 3350 17 gram/dose powder 17 g feeding tube BID Senna Plus 8.6-50 mg capsule 2 tab-cap PO BID thiamine HCl (vitamin B1) 100 mg tablet 100 mg feeding tube DAILY zinc sulfate [Orazinc] 50 mg zinc (220 mg) capsule 50 mg PO DAILY Referrals / Follow Up: Yessenia Murphy MD [Primary Care Provider, Internal Medicine] Disposition Disposition (needs filled in before D/C Order can be placed): Acute [facility]
== END 2025-05-31 10:15 | disposition short-term general hospital (02) | DRG 949 ==
PROVIDERS: Admitting Provider Family Medicine Geriatric Medicine; PCP Student in an Organized Health Care Education/Training Program; Visit Provider Family Medicine Geriatric Medicine
DX: T81.43XD Infection following a procedure, organ and space surgical site, subsequent encounter (principal); Q28.2 Arteriovenous malformation of cerebral vessels; B37.0 Candidal stomatitis; G91.9 Hydrocephalus, unspecified; Z93.1 Gastrostomy status; K21.9 Gastro-esophageal reflux disease without esophagitis; E16.2 Hypoglycemia, unspecified; F41.9 Anxiety disorder, unspecified; Y83.8 Other surgical procedures as the cause of abnormal reaction of the patient, or of later complication, without mention of misadventure at the time of the procedure; Z98.2 Presence of cerebrospinal fluid drainage device; Z79.899 Other long term (current) drug therapy; Z86.73 Personal history of transient ischemic attack (TIA), and cerebral infarction without residual deficits; R41.82 Altered mental status, unspecified; R45.1 Restlessness and agitation
CPT/HCPCS: 36415; 80048; 82962; 85025; 92507; 92523; 92526; 92610; 97110; 97116; 97163; 97166; 97530; 97535; 97802; 97803; A4216

== ENCOUNTER 2025-05-30 20:25 | Emergency (ER) | payer OTHER, SELFPAY ==
[2025-05-30 20:26] VITALS: BP 126/93; PULSE 101; RESP 18; TEMP 36.9; O2SAT 100; BMI 18.6
[2025-05-30 20:33] VITALS: BMI 18.6
[2025-05-30 20:43] VITALS: BMI 18.9
--- NOTE | 2025-05-30 21:02 | EDS_ITS ---
HPI History of Present Illness Chief Complaint: Neuro S/Sx Narrative Narrative: Chief complaint and HPI: History taken by . 25-year-old female with past medical history of migraines who on 03/04/25 was diagnosed with a ruptured AVM. She underwent emergent surgery with in which she now has a shunt. states since the rupture she has been nonverbal and is intermittently agitated. He states she is currently in TCU rehab. She has a PEG tube. She is scheduled to follow-up with neurosurgery within the next several days. states 2 days ago he felt that the patient was more agitated than normal but then again he states it waxes and wanes. He spoke with Dr. Gonzalez today about this who ordered a CT head for precautions. states a nurse then came in and told them that they needed to come to the emergency department for concerns of radiology findings. does not know what these radiology findings were. He states he reached out to the neurosurgery team who reviewed the imaging and they did not feel that there was any changes. denies any fever, shortness of breath, URI symptoms, nausea, vomiting, diarrhea, difficulty in urination. Review of systems: See HPI Medications: As listed on the chart Allergies: As listed on the chart PFSH: Per chart Vital signs: As listed on the chart. Reviewed. Physical exam: Gen: Alert, nonverbal and unable to assess orientation, NAD Head: Normocephalic, atraumatic, craniotomy sutures in place without overlying cellulitis or infection Eyes: No sclera icterus, conjunctiva clear, PERRL ENT: TMs clear BL, dry mucous membranes, posterior oropharynx unremarkable, uvula midline, tonsils not enlarged, no tonsillar exudates Neck: Trachea midline, full range of motion does not appear tender, CV: RRR, no murmurs, no peripheral edema Resp: Lungs CTA BL, no w/r/c GI: Abd soft, non-distended, non-tender, no r/r/g, PEG tube without cellulitis : Normal external genitalia without rash Musc: Contractures but does move extremities Skin: Warm, dry, no rash [facility] Medical History Brain aneurysm Bleeding in brain due to brain aneurysm Hemorrhagic stroke Debility Home Medications ?Medication ?Instructions ?Recorded ?Last Taken ?Type B complex-vitamin C-folic acid ER 1 tab PO DAILY suppl ement 04/07/25 Unknown History 400 mcg tablet,extended release acetaminophen 325 mg/10.15 mL oral 650 mg feeding tube Q6H PRN pain 04/07/25 Unknown History solution (scale score 1-10) amantadine HCl 50 mg/5 mL oral 100 mg feeding tube BID 04/07/25 Unknown History solution involuntary movement bisacodyl 10 mg rectal suppository 10 mg [place] DAILY PRN constipation 04/07/25 Unknown History carboxymethylcellulose sodium 1 % 1 drp EACH EYE DAILY PRN dry eyes 04/07/25 Unknown History eye drops (Artificial Tears (carboxymethylcellulose)) esomeprazole magnesium 40 mg 40 mg feeding tube BID re flux 04/07/25 Unknown History capsule,delayed release (Nexium) heparin (porcine) 5,000 unit/mL (1 5,000 unit subcut Q 8H prophylaxis 04/07/25 05/24/25 09:30 History mL) injection cartridge levetiracetam 500 mg/5 mL (5 mL) 500 mg feeding tube B ID seizures 04/07/25 Unknown History oral solution lorazepam 0.5 mg tablet (Ativan) 0.5 mg feeding tube Q 6H PRN mild 04/07/25 Unknown History restlessness/agitation lorazepam 1 mg tablet (Ativan) 1 mg feeding tube Q6H P RN 04/07/25 04/25/25 10:45 History nausea/vomiting and tachycardia metoclopramide HCl 5 mg/5 mL oral 5 mg feeding tube Q8 H 04/07/25 Unknown History solution digestion/nausea metoprolol tartrate 25 mg tablet 25 mg feeding tube Q1 2H BP/pulse 04/07/2504/26 08:45 History nystatin 100,000 unit/mL oral 500,000 unit PO Q6H thru sh 04/07/25 Unknown History suspension ondansetron 4 mg disintegrating 4 mg feeding tube Q6H PRN nausea 04/07/25 U nknown History tablet polyethylene glycol 3350 17 17 g feeding tube BID cons tipation 04/07/25 05/19/25 History gram/dose oral powder sennosides 8.6 mg-docusate sodium 2 tab-cap PO BID bow els 04/07/25 05/19/25 History 50 mg capsule (Senna Plus) thiamine HCl (vitamin B1) 100 mg 100 mg feeding tube D AILY 04/07/25 Unknown History tablet supplement zinc sulfate 50 mg zinc (220 mg) 50 mg PO DAILY supple ment 04/07/25 Unknown History capsule (Orazinc) bacitracin 500 unit/gram topical 1 applic topical BID surgical 04/26/25 Unknown History ointment incision insulin lispro 100 unit/mL 5 unit subcut Q6H Tube feed 04/26/25 04/26/25 12:05 History subcutaneous pen (Humalog KwikPen (U-100) Insulin) melatonin 5 mg capsule 10 mg feeding tube QHS PRN s leep 04/26/25 04/25/25 20:30 History Lactobacillus acidophilus 1 tab feeding tube BID gut h ealth 05/24/25 Unknown History (Acidophilus chewable tablet) Saccharomyces boulardii 250 mg 250 mg PO BID gut healt h 05/24/25 05/24/25 History capsule (Daily Probiotic (S. boulardii)) famotidine 20 mg tablet (Acid 20 mg feeding tube BID s tomach acid 05/24/25 U nknown History Controller) nafcillin 2 gram intravenous 2 g IV Q4H infection 07/1805/24/25 09:30 History piggyback oxycodone 5 mg capsule 5 mg feeding tube Q6H PRN Se andrade 05/24/25 Unknown History pain 7-10 vitamin B complex and C 5 ml PO DAILY health mainten ence 05/24/25 Unknown History no.10-folic acid 900 mcg/5 mL oral liquid Allergy/AdvReac Type Severity Reaction Status Date / Time No Known Allergies Allergy Verified 05/30/25 20:27 Surgical History Status post insertion of percutaneous endoscopic gastrostomy (PEG) tube History of craniectomy Social History household members: spouse Smoking Status: Never smoker alcohol intake: never substance use type: does not use EXAM Physical Exam Const Vital Signs: 05/30/25 20:26 Temperature 98.4 F Temperature Source Oral Pulse Rate 101 H Respiratory Rate 18 Blood Pressure 126/93 H Blood Pressure Mean 104 Pulse Ox 100 Oxygen Delivery Method Room Air MDM MDM MDM Narrative Medical decision making narrative: 25-year-old female with past medical history of migraines who on 03/04/25 was diagnosed with a ruptured AVM. She underwent emergent surgery with in which she now has a shunt. states since the rupture she has been nonverbal and is intermittently agitated. He states she is currently in rehab. She has a PEG tube. She is scheduled to follow-up with neurosurgery within the next several days. states 2 days ago he felt that the patient was more agitated than normal but then again he states it waxes and wanes. He spoke with Dr. Gonzalez who ordered an outpatient CT brain. states they were in rehab today in which a nurse came in and told them that they needed to come to the emergency department for concerns of radiology findings. does not know what these radiology findings were. He states he reached out to the neurosurgery team who reviewed the imaging and they did not feel that there was any changes. On chart review, I was able to find the CT head from today. Shows stable pathological CT findings when compared to prior exams. No acute intracranial hemorrhage. I updated the as well as the patient's mother on the findings. I asked them what the concerns about the CT head were that were reported as the radiologist read this as stable. They state they do not know. I will reach out to her neurosurgery team at [phone]. I called the number listed above which the gave me. It rang multiple times without anybody answering. Then went to a message stating it was unavailable. gave me another [phone]. The office is currently closed. Will reach out to our transfer line. I was able to get a hold of Rosa Werner with the neurosurgery team. He reviewed the CT imaging with previous imaging on there and as well as an MRI. He agrees that the CT is stable. I also did speak to the neurosurgery resident who reviewed the imaging and felt that it was stable as well. Patient is stable to discharge back to TCU. I did inform the as well as TCU nursing that the read was stable and that I talked to the neurosurgery team. Everyone confirmed understand the plan. Patient will be discharged back to TCU. Impression: 1. Concern for abnormal imaging Lab Data Labs: Laboratory Results - last 24 hr 05/30/25 20:45 POC Glucose 108 H Discharge Plan Triage Chief Complaint: Neuro S/Sx ED Provider: Elijah Wong Dx/Rx/DC Orders Prescriptions: No Action melatonin 5 mg capsule 10 mg feeding tube QHS PRN (Reason: sleep) bacitracin 500 unit/gram ointment 1 applic topical BID insulin lispro [Humalog KwikPen Insulin] 100 unit/mL insulin pen 5 unit subcut Q6H Rx Instructions: 0-5 units. Take as directed per insulin instructions Acidophilus Tablet,Chewable 1 tab feeding tube BID famotidine [Acid Controller] 20 mg tablet 20 mg feeding tube BID nafcillin 2 gram piggyback 2 g IV Q4H oxycodone 5 mg capsule 5 mg feeding tube Q6H PRN (Reason: Severe pain 7-10) Saccharomyces boulardii [Daily Probiotic (S. boulardii)] 250 mg capsule 250 mg PO BID B complex and C 10-folic acid 900 mcg/5 mL liquid 5 ml PO DAILY acetaminophen 325 mg/10.15 mL solution 650 mg feeding tube Q6H PRN (Reason: pain (scale score 1-10)) amantadine HCl 50 mg/5 mL solution 100 mg feeding tube BID Artificial Tears (cmc) 1 % drops 1 drp EACH EYE DAILY PRN (Reason: dry eyes) lorazepam [Ativan] 0.5 mg tablet 0.5 mg feeding tube Q6H PRN (Reason: mild restlessness/agitation) lorazepam [Ativan] 1 mg tablet 1 mg feeding tube Q6H PRN (Reason: nausea/vomiting and tachycardia) B complex-vitamin C-folic acid 400 mcg tablet extended release 1 tab PO DAILY Patient Comments: Please change to g-tube bisacodyl 10 mg suppository 10 mg WI DAILY PRN (Reason: constipation) heparin (porcine) 5,000 unit/mL (1 mL) cartridge 5,000 unit subcut Q8H levetiracetam 500 mg/5 mL (5 mL) solution 500 mg feeding tube BID metoclopramide HCl 5 mg/5 mL solution 5 mg feeding tube Q8H metoprolol tartrate 25 mg tablet 25 mg feeding tube Q12H esomeprazole magnesium [Nexium] 40 mg capsule,delayed release(DR/EC) 40 mg feeding tube BID nystatin 100,000 unit/mL suspension 500,000 unit PO Q6H Rx Instructions: administer 1/2 of dose in each side of the mouth ondansetron 4 mg tablet,disintegrating 4 mg feeding tube Q6H PRN (Reason: nausea) polyethylene glycol 3350 17 gram/dose powder 17 g feeding tube BID Senna Plus 8.6-50 mg capsule 2 tab-cap PO BID thiamine HCl (vitamin B1) 100 mg tablet 100 mg feeding tube DAILY zinc sulfate [Orazinc] 50 mg zinc (220 mg) capsule 50 mg PO DAILY Primary Care Provider: Yessenia Murphy Referrals: Yessenia Murphy MD [Primary Care Provider, Internal Medicine] Print Language: Dutch
--- OUTSIDE RECORDS SUMMARY | 2025-05-30 21:08 | XMS RPT_ITS | CCD ---
Author Organization [facility] Care Team Providers [place] Demonstrator Name Role Phone Generic Provider MD, No [...] solution oral liquid Indications: AVM (arteriovenous malformation) ([facility]) Take 20.3 mL (650 mg) by g-tube every 6 hours if needed for pain. 03/31/2025 Active amantadine hydrochloride 10 mg/ml oral solution (2 sources) Influenza A M2 Protein Inhibitor Start: 03-31-2025 amantadine (Symmetrel) 50 mg/5 mL solution Indications: AVM (arteriovenous malformation) ([facility]) Take 10 mL (100 mg) by g-tube every 12 hours. Assess need for medication often while assessing patient's alert and responsiveness. 03/31/2025 Active bacitracin zinc 0.5 unt/mg topical ointment (1 source) Start: 04-26-2025 bacitracin 500 unit/gram ointment Indications: 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 shunt Apply topically 2 times a day. Apply a small amount to surgical incision (cranial) 04/26/2025 Active bisacodyl 10 mg rectal suppository (2 sources) Stimulant Laxative Start: 03-31-2025 bisacodyl (Dulcolax) 10 mg suppository Indications: AVM (arteriovenous malformation) ([facility]) Insert 1 suppository (10 mg) into the [...] 1 mg tablet Indications: AVM (arteriovenous malformation) ([facility]) Take 1 tablet (1 mg) by [...] 5 mg tablet Indications: AVM (arteriovenous malformation) ([facility]) Take 1 tablet (5 mg) by [...] 4 mg tablet Indications: AVM (arteriovenous malformation) ([facility]) Take 1 tablet (4 mg) by g-tube every 6 hours if needed for nausea or vomiting. 03/31/2025 Active vitamin B complex-vitamin C-folic acid (Nephrocaps) 1 mg capsule (2 sources) Start: 03-31-2025 vitamin B comp lópez-vitamin C-folic acid (Nephrocaps) 1 mg capsule Indications: AVM (arteriovenous malformation) ([facility]) Take 1 capsule by g-tube once daily [...] minute. docusate sodium 50 mg / sennosides, penitentiary 8.6 mg oral tablet (5 sources) Start: [...] 500 mg tablet Indications: AVM (arteriovenous malformation) ([facility]) Take 1 tablet (500 mg) by g-tube 2 times a day. CONTINUE UNTIL INSTRUCTED TO STOP BY NEUROSURGERY OR NEUROLOGY. PLEASE DISCHARGE WITH SCRIPT WITH 6 REFILLS 03/31/2025 04/26/2025 Discontinued (Stop Taking at Discharge) polyethylene glycol 3350 83744 mg powder for oral solution (4 sources) [...] Profile (BMP )on 05-25-2025 BUN Normal 4-19 [facility] Comment on above: Result Comment: Canc elled via OM: Order cancelled - Patient discharged Performed By: #### L 501.080 #### [facility] [address] [place], [address] BUN/CRE Normal 10- [facility] Comment on above: Result Comment: Canc elled via OM: Order cancelled - Patient discharged Performed By: #### L 501.080 #### [facility] [address] [place], [address] Calcium Normal 7.6-11.0 [facility] Comment on above: Result Comment: Canc elled via OM: Order cancelled - Patient discharged Performed By: #### L 501.080 #### [facility] [address] [place], [address] CL Normal 98-108 [facility] Comment on above: Result Comment: Canc elled via OM: Order cancelled - Patient discharged Performed By: #### L 501.080 #### [facility] [address] [place], [address] CO2 Normal 21.0-32.0 [facility] Comment on above: Result Comment: Canc elled via OM: Order cancelled - Patient discharged Performed By: #### L 501.080 #### [facility] [address] [place], [address] CREAT,SERUM Normal 0.70-1.20 [facility] Comment on above: Result Comment: Canc elled via OM: Order cancelled - Patient discharged Performed By: #### L 501.080 #### [facility] [address] [place], [address] eGFR Normal >60 [facility] Comment on above: Result Comment: Canc elled via OM: Order cancelled - Patient discharged Performed By: #### L 501.080 #### [facility] [address] [place], [address] GAP Normal 5-15 [facility] Comment on above: Result Comment: Canc elled via OM: Order cancelled - Patient discharged Performed By: #### L 501.080 #### [facility] [address] [place], [address] GLU Normal 70-99 [facility] Comment on above: Result Comment: Canc elled via OM: Order cancelled - Patient discharged Performed By: #### L 501.080 #### [facility] [address] [place], [address] Potassium Normal 3.3-5.1 [facility] Comment on above: Result Comment: Canc elled via OM: Order cancelled - Patient discharged Performed By: #### L 501.080 #### [facility] [address] [place], [address] Basic Metabolic Profile (BMP) Normal 133-145 [facility] Comment on above: Result Comment: Canc elled via OM: Order cancelled - Patient discharged Performed By: #### L 501.080 #### [facility] [address] [place], [address] CBC W/Diff, Automatedon 12-0 Absolute Neut Normal 2.0-7.7 [facility] Comment on above: Result Comment: Canc elled via OM: Order cancelled - Patient discharged Performed By: #### L 501.080 #### [facility] [address] [place], [address] HCT Normal 37-47 [facility] Comment on above: Result Comment: Canc elled via OM: Order cancelled - Patient discharged Performed By: #### L 501.080 #### [facility] [address] [place], [address] HGB Normal 12.0-15.0 [facility] Comment on above: Result Comment: Canc elled via OM: Order cancelled - Patient discharged Performed By: #### L 501.080 #### [facility] [address] [place], [address] MCH Normal 27.0-32.0 [facility] Comment on above: Result Comment: Canc elled via OM: Order cancelled - Patient discharged Performed By: #### L 501.080 #### [facility] [address] [place], [address] MCHC Normal 32-36 [facility] Comment on above: Result Comment: Canc elled via OM: Order cancelled - Patient discharged Performed By: #### L 501.080 #### [facility] [address] [place], [address] MCV Normal 81-99 [facility] Comment on above: Result Comment: Canc elled via OM: Order cancelled - Patient discharged Performed By: #### L 501.080 #### [facility] [address] [place], [address] NEUT% Normal 47-70 [facility] Comment on above: Result Comment: Canc elled via OM: Order cancelled - Patient discharged Performed By: #### L 501.080 #### [facility] [address] [place], [address] PLT Normal 150-450 [facility] Comment on above: Result Comment: Canc elled via OM: Order cancelled - Patient discharged Performed By: #### L 501.080 #### [facility] [address] [place], [address] RBC Normal 4.2-5.4 [facility] Comment on above: Result Comment: Canc elled via OM: Order cancelled - Patient discharged Performed By: #### L 501.080 #### [facility] [address] [place], [address] RDW CV Normal 11.6-14.6 [facility] Comment on above: Result Comment: Canc elled via OM: Order cancelled - Patient discharged Performed By: #### L 501.080 #### [facility] [address] [place], [address] RDW SD Normal 35.1-43.9 [facility] Comment on above: Result Comment: Canc elled via OM: Order cancelled - Patient discharged Performed By: #### L 501.080 #### [facility] [address] [place], [address] WBC Normal 4.4-11.0 [facility] Comment on above: Result Comment: Canc elled via OM: Order cancelled - Patient discharged Performed By: #### L 501.080 #### [facility] [address] [place], [address] Basic Metabolic Profile (BMP )on 05-18-2025 BUN Normal 4-19 [facility] Comment on above: Result Comment: Canc elled via OM: Order cancelled - Patient discharged Performed By: #### L 500.2500, L100.0100 #### [facility] [address] [place], [address] BUN/CRE Normal 10-20 [facility] Comment on above: Result Comment: Canc elled via OM: Order cancelled - Patient discharged Performed By: #### L 500.2500, L100.0100 #### [facility] [address] [place], [address] Calcium Normal 7.6-11.0 [facility] Comment on above: Result Comment: Canc elled via OM: Order cancelled - Patient discharged Performed By: #### L 500.2500, L100.0100 #### [facility] [address] [place], [address] CL Normal 98-108 [facility] Comment on above: Result Comment: Canc elled via OM: Order cancelled - Patient discharged Performed By: #### L 500.2500, L100.0100 #### [facility] [address] [place], [address] CO2 Normal 21.0-32.0 [facility] Comment on above: Result Comment: Canc elled via OM: Order cancelled - Patient discharged Performed By: #### L 500.2500, L100.0100 #### [facility] [address] [place], [address] CREAT,SERUM Normal 0.70-1.20 [facility] Comment on above: Result Comment: Canc elled via OM: Order cancelled - Patient discharged Performed By: #### L 500.2500, L100.0100 #### [facility] [address] [place], [address] eGFR Normal >60 [facility] Comment on above: Result Comment: Canc elled via OM: Order cancelled - Patient discharged Performed By: #### L 500.2500, L100.0100 #### [facility] [address] [place], [address] GAP Normal 5-15 [facility] Comment on above: Result Comment: Canc elled via OM: Order cancelled - Patient discharged Performed By: #### L 500.2500, L100.0100 #### [facility] [address] [place], [address] GLU Normal 70-99 [facility] Comment on above: Result Comment: Canc elled via OM: Order cancelled - Patient discharged Performed By: #### L 500.2500, L100.0100 #### [facility] [address] [place], [address] Potassium Normal 3.3-5.1 [facility] Comment on above: Result Comment: Canc elled via OM: Order cancelled - Patient discharged Performed By: #### L 500.2500, L100.0100 #### [facility] [address] [place], [address] Basic Metabolic Profile (BMP) Normal 133-145 [facility] Comment on above: Result Comment: Canc elled via OM: Order cancelled - Patient discharged Performed By: #### L 500.2500, L100.0100 #### [facility] [address] [place], [address] CBC W/Diff, Automatedon 11-2 Absolute Neut Normal 2.0-7.7 [facility] Comment on above: Result Comment: Canc elled via OM: Order cancelled - Patient discharged Performed By: #### L 500.2500, L100.0100 #### [facility] [address] [place], [address] HCT Normal 37-47 [facility] Comment on above: Result Comment: Canc elled via OM: Order cancelled - Patient discharged Performed By: #### L 500.2500, L100.0100 #### [facility] [address] [place], [address] HGB Normal 12.0-15.0 [facility] Comment on above: Result Comment: Canc elled via OM: Order cancelled - Patient discharged Performed By: #### L 500.2500, L100.0100 #### [facility] [address] [place], [address] MCH Normal 27.0-32.0 [facility] Comment on above: Result Comment: Canc elled via OM: Order cancelled - Patient discharged Performed By: #### L 500.2500, L100.0100 #### [facility] [address] [place], [address] MCHC Normal 32-36 [facility] Comment on above: Result Comment: Canc elled via OM: Order cancelled - Patient discharged Performed By: #### L 500.2500, L100.0100 #### [facility] [address] [place], [address] MCV Normal 81-99 [facility] Comment on above: Result Comment: Canc elled via OM: Order cancelled - Patient discharged Performed By: #### L 500.2500, L100.0100 #### [facility] [address] [place], [address] NEUT% Normal 47-70 [facility] Comment on above: Result Comment: Canc elled via OM: Order cancelled - Patient discharged Performed By: #### L 500.2500, L100.0100 #### [facility] [address] [place], [address] PLT Normal 150-450 [facility] Comment on above: Result Comment: Canc elled via OM: Order cancelled - Patient discharged Performed By: #### L 500.2500, L100.0100 #### [facility] [address] [place], [address] RBC Normal 4.2-5.4 [facility] Comment on above: Result Comment: Canc elled via OM: Order cancelled - Patient discharged Performed By: #### L 500.2500, L100.0100 #### [facility] [address] [place], [address] RDW CV Normal 11.6-14.6 [facility] Comment on above: Result Comment: Canc elled via OM: Order cancelled - Patient discharged Performed By: #### L 500.2500, L100.0100 #### [facility] [address] [place], [address] RDW SD Normal 35.1-43.9 [facility] Comment on above: Result Comment: Canc elled via OM: Order cancelled - Patient discharged Performed By: #### L 500.2500, L100.0100 #### [facility] [address] [place], [address] WBC Normal 4.4-11.0 [facility] Comment on above: Result Comment: Canc elled via OM: Order cancelled - Patient discharged Performed By: #### L 500.2500, L100.0100 #### [facility] [address] [place], [address] Basic Metabolic Profile (BMP )on 05-11-2025 BUN Normal 4-19 [facility] Comment on above: Result Comment: Canc elled via OM: Order cancelled - Patient discharged Performed By: #### L 500.2500, L100.0100 #### [facility] [address] [place], [address] BUN/CRE Normal 10-20 [facility] Comment on above: Result Comment: Canc elled via OM: Order cancelled - Patient discharged Performed By: #### L 500.2500, L100.0100 #### [facility] [address] [place], [address] Calcium Normal 7.6-11.0 [facility] Comment on above: Result Comment: Canc elled via OM: Order cancelled - Patient discharged Performed By: #### L 500.2500, L100.0100 #### [facility] [address] [place], [address] CL Normal 98-108 [facility] Comment on above: Result Comment: Canc elled via OM: Order cancelled - Patient discharged Performed By: #### L 500.2500, L100.0100 #### [facility] [address] [place], [address] CO2 Normal 21.0-32.0 [facility] Comment on above: Result Comment: Canc elled via OM: Order cancelled - Patient discharged Performed By: #### L 500.2500, L100.0100 #### [facility] [address] [place], [address] CREAT,SERUM Normal 0.70-1.20 [facility] Comment on above: Result Comment: Canc elled via OM: Order cancelled - Patient discharged Performed By: #### L 500.2500, L100.0100 #### [facility] [address] [place], [address] eGFR Normal >60 [facility] Comment on above: Result Comment: Canc elled via OM: Order cancelled - Patient discharged Performed By: #### L 500.2500, L100.0100 #### [facility] [address] [place], [address] GAP Normal 5-15 [facility] Comment on above: Result Comment: Canc elled via OM: Order cancelled - Patient discharged Performed By: #### L 500.2500, L100.0100 #### [facility] [address] [place], [address] GLU Normal 70-99 [facility] Comment on above: Result Comment: Canc elled via OM: Order cancelled - Patient discharged Performed By: #### L 500.2500, L100.0100 #### [facility] [address] [place], [address] Potassium Normal 3.3-5.1 [facility] Comment on above: Result Comment: Canc elled via OM: Order cancelled - Patient discharged Performed By: #### L 500.2500, L100.0100 #### [facility] [address] [place], [address] Basic Metabolic Profile (BMP) Normal 133-145 [facility] Comment on above: Result Comment: Canc elled via OM: Order cancelled - Patient discharged Performed By: #### L 500.2500, L100.0100 #### [facility] [address] [place], [address] CBC W/Diff, Automatedon 11- Absolute Neut Normal 2.0-7.7 [facility] Comment on above: Result Comment: Canc elled via OM: Order cancelled - Patient discharged Performed By: #### L 500.2500, L100.0100 #### [facility] [address] [place], [address] HCT Normal 37-47 [facility] Comment on above: Result Comment: Canc elled via OM: Order cancelled - Patient discharged Performed By: #### L 500.2500, L100.0100 #### [facility] [address] [place], [address] HGB Normal 12.0-15.0 [facility] Comment on above: Result Comment: Canc elled via OM: Order cancelled - Patient discharged Performed By: #### L 500.2500, L100.0100 #### [facility] [address] [place], [address] MCH Normal 27.0-32.0 [facility] Comment on above: Result Comment: Canc elled via OM: Order cancelled - Patient discharged Performed By: #### L 500.2500, L100.0100 #### [facility] [address] [place], [address] MCHC Normal 32-36 [facility] Comment on above: Result Comment: Canc elled via OM: Order cancelled - Patient discharged Performed By: #### L 500.2500, L100.0100 #### [facility] [address] [place], [address] MCV Normal 81-99 [facility] Comment on above: Result Comment: Canc elled via OM: Order cancelled - Patient discharged Performed By: #### L 500.2500, L100.0100 #### [facility] [address] [place], [address] NEUT% Normal 47-70 [facility] Comment on above: Result Comment: Canc elled via OM: Order cancelled - Patient discharged Performed By: #### L 500.2500, L100.0100 #### [facility] [address] [place], [address] PLT Normal 150-450 [facility] Comment on above: Result Comment: Canc elled via OM: Order cancelled - Patient discharged Performed By: #### L 500.2500, L100.0100 #### [facility] [address] [place], [address] RBC Normal 4.2-5.4 [facility] Comment on above: Result Comment: Canc elled via OM: Order cancelled - Patient discharged Performed By: #### L 500.2500, L100.0100 #### [facility] [address] [place], [address] RDW CV Normal 11.6-14.6 [facility] Comment on above: Result Comment: Canc elled via OM: Order cancelled - Patient discharged Performed By: #### L 500.2500, L100.0100 #### [facility] [address] [place], [address] RDW SD Normal 35.1-43.9 [facility] Comment on above: Result Comment: Canc elled via OM: Order cancelled - Patient discharged Performed By: #### L 500.2500, L100.0100 #### [facility] [address] [place], [address] WBC Normal 4.4-11.0 [facility] Comment on above: Result Comment: Canc elled via OM: Order cancelled - Patient discharged Performed By: #### L 500.2500, L100.0100 #### [facility] [address] [place], [address] Basic Metabolic Profile (BMP )on 05-10-2025 BUN Normal 4-19 [facility] Comment on above: Result Comment: Canc elled via OM: Order cancelled - Patient discharged Performed By: #### L 500.2500, L100.0100 #### [facility] [address] [place], [address] BUN/CRE Normal 10-20 [facility] Comment on above: Result Comment: Canc elled via OM: Order cancelled - Patient discharged Performed By: #### L 500.2500, L100.0100 #### [facility] [address] [place], [address] Calcium Normal 7.6-11.0 [facility] Comment on above: Result Comment: Canc elled via OM: Order cancelled - Patient discharged Performed By: #### L 500.2500, L100.0100 #### [facility] [address] [place], [address] CL Normal 98-108 [facility] Comment on above: Result Comment: Canc elled via OM: Order cancelled - Patient discharged Performed By: #### L 500.2500, L100.0100 #### [facility] [address] [place], [address] CO2 Normal 21.0-32.0 [facility] Comment on above: Result Comment: Canc elled via OM: Order cancelled - Patient discharged Performed By: #### L 500.2500, L100.0100 #### [facility] [address] [place], [address] CREAT,SERUM Normal 0.70-1.20 [facility] Comment on above: Result Comment: Canc elled via OM: Order cancelled - Patient discharged Performed By: #### L 500.2500, L100.0100 #### [facility] [address] [place], [address] eGFR Normal >60 [facility] Comment on above: Result Comment: Canc elled via OM: Order cancelled - Patient discharged Performed By: #### L 500.2500, L100.0100 #### [facility] [address] [place], [address] GAP Normal 5-15 [facility] Comment on above: Result Comment: Canc elled via OM: Order cancelled - Patient discharged Performed By: #### L 500.2500, L100.0100 #### [facility] [address] [place], [address] GLU Normal 70-99 [facility] Comment on above: Result Comment: Canc elled via OM: Order cancelled - Patient discharged Performed By: #### L 500.2500, L100.0100 #### [facility] [address] [place], [address] Potassium Normal 3.3-5.1 [facility] Comment on above: Result Comment: Canc elled via OM: Order cancelled - Patient discharged Performed By: #### L 500.2500, L100.0100 #### [facility] [address] [place], [address] Basic Metabolic Profile (BMP) Normal 133-145 [facility] Comment on above: Result Comment: Canc elled via OM: Order cancelled - Patient discharged Performed By: #### L 500.2500, L100.0100 #### [facility] [address] [place], [address] CBC W/Diff, Automatedon 11-1 Absolute Neut Normal 2.0-7.7 [facility] Comment on above: Result Comment: Canc elled via OM: Order cancelled - Patient discharged Performed By: #### L 500.2500, L100.0100 #### [facility] [address] [place], [address] HCT Normal 37-47 [facility] Comment on above: Result Comment: Canc elled via OM: Order cancelled - Patient discharged Performed By: #### L 500.2500, L100.0100 #### [facility] [address] [place], [address] HGB Normal 12.0-15.0 [facility] Comment on above: Result Comment: Canc elled via OM: Order cancelled - Patient discharged Performed By: #### L 500.2500, L100.0100 #### [facility] [address] [place], [address] MCH Normal 27.0-32.0 [facility] Comment on above: Result Comment: Canc elled via OM: Order cancelled - Patient discharged Performed By: #### L 500.2500, L100.0100 #### [facility] [address] [place], [address] MCHC Normal 32-36 [facility] Comment on above: Result Comment: Canc elled via OM: Order cancelled - Patient discharged Performed By: #### L 500.2500, L100.0100 #### [facility] [address] [place], [address] MCV Normal 81-99 [facility] Comment on above: Result Comment: Canc elled via OM: Order cancelled - Patient discharged Performed By: #### L 500.2500, L100.0100 #### [facility] [address] [place], [address] NEUT% Normal 47-70 [facility] Comment on above: Result Comment: Canc elled via OM: Order cancelled - Patient discharged Performed By: #### L 500.2500, L100.0100 #### [facility] [address] [place], [address] PLT Normal 150-450 [facility] Comment on above: Result Comment: Canc elled via OM: Order cancelled - Patient discharged Performed By: #### L 500.2500, L100.0100 #### [facility] [address] [place], [address] RBC Normal 4.2-5.4 [facility] Comment on above: Result Comment: Canc elled via OM: Order cancelled - Patient discharged Performed By: #### L 500.2500, L100.0100 #### [facility] [address] [place], [address] RDW CV Normal 11.6-14.6 [facility] Comment on above: Result Comment: Canc elled via OM: Order cancelled - Patient discharged Performed By: #### L 500.2500, L100.0100 #### [facility] [address] [place], [address] RDW SD Normal 35.1-43.9 [facility] Comment on above: Result Comment: Canc elled via OM: Order cancelled - Patient discharged Performed By: #### L 500.2500, L100.0100 #### [facility] [address] [place], [address] WBC Normal 4.4-11.0 [facility] Comment on above: Result Comment: Canc elled via OM: Order cancelled - Patient discharged Performed By: #### L 500.2500, L100.0100 #### [facility] [address] [place], [address] Bacteriaon 05-06-2025 Bacteria identified Cx Nom (Bld) [facility] Comment on above: Performed By: #### 6 00-7 ####CALE Roth ([id number])[facility] ([facility])[address] [place] [address] Blood type and Indirect anti body screen panel (Bld)on 05-05-2025 ABO group Nom (Bld) B Normal [facility] Comment on above: Performed By: #### 3 4532-2 ####CALE Roth ([id number])[facility] ([facility])[address] [place] [address] Blood group antibody screen Ql Negative Normal [facility] Comment on above: Performed By: #### 3 4532-2 ####CALE Roth ([id number])[facility] ([facility])[address] [facility] [place] [address] D Ag Ql (Bld) Positive [facility] Comment on above: Performed By: #### 3 4532-2 ####CALE Roth ([id number])[facility] ([facility])[address] [facility] [facility] [place] [address] C reactive proteinon 025 CRP [Mass/Vol] 0.36 mg/dL Normal <1.00 [facility] Comment on above: Performed By: #### 1 988-5 ####CALE Roth ([id number])[facility] ([facility])[address] [place] [address] CBC W Auto Differential pane l (Bld)on 05-05-2025 Basophils (Bld) [#/Vol] 0.06 x10*3/uL Normal 0.00-0.10 [facility] Comment on above: Performed By: #### 5 7021-8 ####CALE Roth ([id number])[facility] ([facility])[address] [place] [address] Basophils/100 WBC (Bld) 1.0 % Normal 0.0-2.0 [facility] Comment on above: Performed By: #### 5 7021-8 ####CALE Roth ([id number])[facility] ([facility])[address] [place] [address] Eosinophils (Bld) [#/Vol] 0.10 x10*3/uL Normal 0.00-0.70 [facility] Comment on above: Performed By: #### 5 7021-8 ####CALE Roth ([id number])[facility] ([facility])[address] [place] [address] Eosinophils/100 WBC (Bld) 1.7 % Normal 0.0-6.0 [facility] Comment on above: Performed By: #### 5 7021-8 ####CALE Roth ([id number])[facility] ([facility])[address] [place] [address] Erythrocyte distribution width (RBC) [Ratio] 12.6 % Normal 11.5-14.5 [facility] Comment on above: Performed By: #### 5 7021-8 ####CALE Roth ([id number])[facility] ([facility])[address] [place] [address] Hematocrit (Bld) [Volume fraction] 39.8 % Normal 36.0-46.0 [facility] Comment on above: Performed By: #### 5 7021-8 ####CALE Roth ([id number])[facility] ([facility])[address] [place] [address] Hemoglobin (Bld) [Mass/Vol] 14.1 g/dL Normal 12.0-16.0 [facility] Comment on above: Performed By: #### 5 7021-8 ####CALE Roth ([id number])[facility] ([facility])[address] [place] [address] Immature granulocytes (Bld) [#/Vol] 0.06 x10*3/uL Normal 0.00-0.70 [facility] Comment on above: Performed By: #### 5 7021-8 ####CALE Roth ([id number])[facility] ([facility])[address] [place] [address] Immature granulocytes/100 WBC (Bld) 1.0 % High 0.0-0.9 [facility] Comment on above: Result Comment: Aleisha ture Granulocyte Count (IG) includes promyelocytes, myelocytes and metamyelocytes but does not include bands. Percent differential counts (%) should be interpreted in the context of the absolute cell counts (cells/UL). Performed By: #### 5 7021-8 ####CALE Roth ([id number])[facility] ([facility])[address] [place] [address] Lymphocytes (Bld) [#/Vol] 2.08 x10*3/uL Normal 1.20-4.80 [facility] Comment on above: Performed By: #### 5 7021-8 ####CALE Roth ([id number])[facility] ([facility])[address] [place] [address] Lymphocytes/100 WBC (Bld) 34.6 % Normal 13.0-44.0 [facility] Comment on above: Performed By: #### 5 7021-8 ####CALE Roth ([id number])[facility] ([facility])[address] [place] [address] MCH (RBC) [Entitic mass] 28.7 pg Normal 26.0-34.0 [facility] Comment on above: Performed By: #### 5 7021-8 ####CALE Roth ([id number])[facility] ([facility])[address] [place] [address] MCHC (RBC) [Mass/Vol] 35.4 g/dL Normal 32.0-36.0 [facility] Comment on above: Performed By: #### 5 7021-8 ####CALE Roth ([id number])[facility] ([facility])[address] [place] [address] MCV (RBC) [Entitic vol] 81 fL Normal 80-100 [facility] Comment on above: Performed By: #### 5 7021-8 ####CALE Roth ([id number])[facility] ([facility])[address] [place] [address] Monocytes (Bld) [#/Vol] 0.67 x10*3/uL Normal 0.10-1.00 [facility] Comment on above: Performed By: #### 5 7021-8 ####CALE Roth ([id number])[facility] ([facility])[address] [place] [address] Monocytes/100 WBC (Bld) 11.1 % Normal 2.0-10.0 [facility] Comment on above: Performed By: #### 5 7021-8 ####CALE Roth ([id number])[facility] ([facility])[address] [place] [address] Neutrophils (Bld) [#/Vol] 3.05 x10*3/uL Normal 1.20-7.70 [facility] Comment on above: Result Comment: Perc ent differential counts (%) should be interpreted in the context of the absolute cell counts (cells/uL). Performed By: #### 5 7021-8 ####CALE Roth ([id number])[facility] ([facility])[address] [place] [address] Neutrophils/100 WBC (Bld) 50.6 % Normal 40.0-80.0 [facility] Comment on above: Performed By: #### 5 7021-8 ####CALE Roth ([id number])[facility] ([facility])[address] [place] [address] Nucleated RBC/100 WBC (Bld) [Ratio] 0.0 /100 WBCs Normal 0.0-0.0 [facility] Comment on above: Performed By: #### 5 7021-8 ####CALE CAI L ([id number])[facility] ([facility])[address] [place] [address] Platelets (Bld) [#/Vol] 197 x10*3/uL Normal 150-450 [facility] Comment on above: Performed By: #### 5 7021-8 ####CALE Roth ([id number])[facility] ([facility])[address] [place] [address] RBC (Bld) [#/Vol] 4.91 x10*6/uL Normal 4.00-5.20 [facility] Comment on above: Performed By: #### 5 7021-8 ####CALE Roth ([id number])[facility] ([facility])[address] [place] [address] WBC (Bld) [#/Vol] 6.0 x10*3/uL Normal 4.4-11.3 [facility] Comment on above: Performed By: #### 5 7021-8 ####CALE Roth ([id number])[facility] ([facility])[address] [place] [address] CT TRANSFER OF OUTSIDE FILMS on 05-05-2025 CT TRANSFER OF OUTSIDE FILMS Outside images for comparison or treatment purposes, not interpreted by Radiologists. Normal [facility] Choriogonadotropin.beta subu niton 05-05-2025 HCG.beta subunit Qn m[IU]/mL Normal <5 [facility] Comment on above: Order Comment: Total HCG measurement is performed using the Siemens Atellica immunoassay which detects intact HCG and free beta HCG subunit. This test is not indicated for use as a tumor marker. HCG testing is performed using a different test methodology at [facility] than other [facility]. Direct result comparison should only be made within the same method. Performed By: #### 2 1198-7 ####CALE Roth ([id number])[facility] ([facility])[address] [place] [address] Comprehensive metabolic 2000 panelon 05-05-2025 Albumin BCP dye [Mass/Vol] 4.1 g/dL Normal 3.4-5.0 [facility] Comment on above: Performed By: #### 2 4323-8 ####CALE Roth ([id number])[facility] ([facility])[address]75 [place] [address] ALP [Catalytic activity/Vol] 83 U/L Normal 33-110 [facility] Comment on above: Performed By: #### 2 4323-8 ####CALE Roth ([id number])[facility] ([facility])[address] [place] [address] ALT With P-5'-P [Catalytic activity/Vol] 34 U/L Normal 7-45 [facility] Comment on above: Result Comment: Rehana ents treated with Sulfasalazine may generate falsely decreased results for ALT. Performed By: #### 2 4323-8 ####CALE Roth ([id number])[facility] ([facility])[address] [place] [address] Anion gap [Moles/Vol] 16 mmol/L Normal 10-20 [facility] Comment on above: Performed By: #### 2 4323-8 ####CALE Roth ([id number])[facility] ([facility])[address] [place] [address] AST With P-5'-P [Catalytic activity/Vol] 32 U/L Normal 9-39 [facility] Comment on above: Result Comment: MILD HEMOLYSIS DETECTED. The result may be falsely elevated due to hemolysis or other interferents. Clinical correlation is recommended. Repeat testing may be considered. Performed By: #### 2 4323-8 ####CALE Roth ([id number])[facility] ([facility])[address]32 [place] [address] Bilirubin [Mass/Vol] 0.4 mg/dL Normal 0.0-1.2 [facility] Comment on above: Performed By: #### 2 4323-8 ####CALE Roth ([id number])[facility] ([facility])[address] [place] [address] Calcium [Mass/Vol] 10.4 mg/dL Normal 8.6-10.6 [facility] Comment on above: Performed By: #### 2 4323-8 ####CALE Roth ([id number])[facility] ([facility])[address] [place] [address] Chloride [Moles/Vol] 95 mmol/L Low 98-107 [facility] Comment on above: Performed By: #### 2 4323-8 ####CALE Roth ([id number])[facility] ([facility])[address] [place] [address] CO2 [Moles/Vol] 31 mmol/L Normal 21-[address] [facility] Comment on above: Result Comment: Bica rbonate results may be falsely elevated when Lactate Dehydrogenase (LDH) concentrations exceed 2,000 U/L due to a temporary reagent manufacturing issue. If significantly elevated LDH levels are suspected, interpret bicarbonate results with caution, correlate with the patient's clinical status, and consider confirming CO2 values using a blood gas analyzer. Performed By: #### 2 4323-8 ####CALE Roth ([id number])[facility] ([facility])[address] [place] [address] Creatinine [Mass/Vol] 0.28 mg/dL Low 0.50-1.05 [facility] Comment on above: Performed By: #### 2 4323-8 ####CALE Roth ([id number])[facility] ([facility])[address] [place] [address] Glomerular filtration rate >90 Normal >60 [facility] Comment on above: Result Comment: Calc ulations of estimated GFR are performed using the 2020 CKD-EPI Study Refit equation without the race variable for the IDMS-Traceable creatinine methods.https://jasn.asnjournals.org/content//ASN .5765712140 Performed By: #### 2 4323-8 ####CALE Roth ([id number])[facility] ([facility])[address] [place] [address] Glucose [Mass/Vol] 95 mg/dL Normal 74-99 [facility] Comment on above: Performed By: #### 2 4323-8 ####CALE Roth ([id number])[facility] ([facility])[address]69 [place] [address] Potassium [Moles/Vol] 5.1 mmol/L Normal 3.5-5.3 [facility] Comment on above: Result Comment: MILD HEMOLYSIS DETECTED. The result may be falsely elevated due to hemolysis or other interferents. Clinical correlation is recommended. Repeat testing may be considered. Performed By: #### 2 4323-8 ####CALE CAI L ([id number])[facility] ([facility])[address] [place] [address] Protein [Mass/Vol] 7.9 g/dL Normal 6.4-8.2 [facility] Comment on above: Performed By: #### 2 4323-8 ####CALE PARKERTZER L ([id number])[facility] ([facility])[address] [place] [address] Sodium [Moles/Vol] 137 mmol/L Normal 136-145 [facility] Comment on above: Performed By: #### 2 4323-8 ####CALE TOSCANOMOTZER L ([id number])[facility] ([facility])[address]187 [place] [address] Urea nitrogen [Mass/Vol] 10 mg/dL Normal 6-23 [facility] Comment on above: Performed By: #### 2 4323-8 ####CALE TOSCANOMOTZER L ([id number])[facility] ([facility])[address]265 [place] [address] ECG 12-LEADon 05-05-2025 ECG 12-LEAD Ventricular Rate 113 Atrial Rate 113 P-R Interval 136 QRS Duration 78 Q-T Interval 324 QTC Calculation(Bazett) 444 P [place] 72 R [place] 91 T [place] 74 QRS Count 19 Q Onset 220 [...] and clinical correlation Confirmed by Joaquina Lopez ([id number]) on 05/05/2025 4:56:53 AM Normal [facility] ESR Westergren method (Bld) [Velocity]on 11-12-2025 ESR (Bld) [Velocity] 22 mm/h High 0-20 [facility] Comment on above: Performed By: #### 4 537-7 ####CALE Roth ([id number])[facility] ([facility])[address] [place] [address] MR BRAIN W AND WO IV CONTRAS Ton 05-05-2025 MR BRAIN W AND WO IV CONTRAST Normal [facility] PT and aPTT panel Coag (PPP) on 05-05-2025 aPTT Coag (PPP) [Time] 26 s Normal 26-36 [facility] Comment on above: Order Comment: The A PTT is no longer used for monitoring Unfractionated Heparin Therapy. For monitoring Heparin Therapy, use the Heparin Assay. Performed By: #### 3 4529-8 ####CALE Roth ([id number])[facility] ([facility])[address] [place] [address] INR Coag (PPP) [Relative time] 1.1 Normal 0.9-1.1 [facility] Comment on above: Order Comment: The A PTT is no longer used for monitoring Unfractionated Heparin Therapy. For monitoring Heparin Therapy, use the Heparin Assay. Performed By: #### 3 4529-8 ####CALE Roth ([id number])[facility] ([facility])[address] [place] [address] PT Coag (PPP) [Time] 12.2 s Normal 9.8-12.4 [facility] Comment on above: Order Comment: The A PTT is no longer used for monitoring Unfractionated Heparin Therapy. For monitoring Heparin Therapy, use the Heparin Assay. Performed By: #### 3 4529-8 ####CALE Roth ([id number])[facility] ([facility])[address] [place] [address] XR CHEST 1 VIEWon 05-05-2025 XR CHEST [address] [facility] XR SHUNT SERIESon 05-05-2025 XR SHUNT SERIES Normal [facility] Basic Metabolic Profile (BMP )on 05-04-2025 BUN/CRE 23.3 RATIO High 10-20 [facility] Comment on above: Performed By: #### L 100.0100, L500.2500 #### [facility] [address] [place], [address] Calcium [Mass/Vol] 9.3 mg/dL Normal 7.6-11.0 [facility] Comment on above: Performed By: #### L 100.0100, L500.2500 #### [facility] [address] [place], [address] Chloride [Moles/Vol] 97 mmol/L Low 98-108 [facility] Comment on above: Performed By: #### L 100.0100, L500.2500 #### [facility] [address] [place], [address] CO2 [Moles/Vol] 23.2 mmol/L Normal 21.0-32.0 [facility] Comment on above: Performed By: #### L 100.0100, L500.2500 #### [facility] [address] [place], [address] Creatinine [Mass/Vol] 0.35 mg/dL Low 0.70-1.20 [facility] Comment on above: Performed By: #### L 100.0100, L500.2500 #### [facility] [address] [place], [address] ECRCL 155.26 ml/min Normal 50-250 [facility] Comment on above: Performed By: #### L 100.0100, L500.2500 #### [facility] [address] [place], [address] GAP 17 High 5-15 [facility] Comment on above: Performed By: #### L 100.0100, L500.2500 #### [facility] [address] [place], [address] GFR/1.73 sq M.predicted among non-blacks MDRD (S/P/Bld) [Vol rate/Area] 148 mL/min/{1.73_m2} Normal >60 [facility] Comment on above: Result Comment: mL/m in/1.73m2 CKD-EPI Creatinine Equation (2020) Performed By: #### L 100.0100, L500.2500 #### [facility] [address] [place], [address] Glucose [Mass/Vol] 139 mg/dL High 70-99 [facility] Comment on above: Performed By: #### L 100.0100, L500.2500 #### [facility] [address] [place], [address] Potassium [Moles/Vol] 3.7 mmol/L Normal 3.3-5.1 [facility] Comment on above: Performed By: #### L 100.0100, L500.2500 #### [facility] [address] [place], [address] Sodium [Moles/Vol] 137 mmol/L Normal 133-145 [facility] Comment on above: Performed By: #### L 100.0100, L500.2500 #### [facility] [address] [place], [address] Urea nitrogen [Mass/Vol] 8 mg/dL Normal 4-19 [facility] Comment on above: Performed By: #### L 100.0100, L500.2500 #### [facility] [address] [place], [address] Bedside Glucoseon 05-04-2025 FINGERSTICK GLU 120 mg/dL High 74-106 [facility] Comment on above: Result Comment: BONNIE AL OF PATIENT CARE PER NURSING PROTOCOL Performed By: #### L 500.2500, L100.0100 #### [facility] [address] [place], [address] CBC W/Diff, Automatedon 04-245 Absolute Lymph 1.66 X10 3/uL Normal 0.83-4.51 [facility] Comment on above: Performed By: #### L 100.0100, L500.2500 #### [facility] [address] [place], [address] Absolute Neut 4.0 X10 3/uL Normal 2.0-7.7 [facility] Comment on above: Performed By: #### L 100.0100, L500.2500 #### [facility] [address] [place], [address] Basophils/100 WBC (Bld) 0.3 % Normal 0-1 [facility] Comment on above: Performed By: #### L 100.0100, L500.2500 #### [facility] [address] [place], [address] Eosinophils/100 WBC (Bld) 1.9 % Normal 0-5 [facility] Comment on above: Performed By: #### L 100.0100, L500.2500 #### [facility] [address] [place], [address] Erythrocyte distribution width (RBC) [Ratio] 12.9 % Normal 11.6-14.6 [facility] Comment on above: Performed By: #### L 100.0100, L500.2500 #### [facility] [address] [place], [address] Hematocrit (Bld) [Volume fraction] 37.7 % Normal 37-47 [facility] Comment on above: Performed By: #### L 100.0100, L500.2500 #### [facility] [address] [place], [address] Hemoglobin (Bld) [Mass/Vol] 12.7 g/dL Normal 12.0-15.0 [facility] Comment on above: Performed By: #### L 100.0100, L500.2500 #### [facility] [address] [place], [address] IG% 1.200 High 0.0-0.9 [facility] Comment on above: Result Comment: IG% - Immature Granulocytes (promyelocytes, myelocytes and metamyelocytes) > 1% indicates that a LEFT SHIFT is Present. Performed By: #### L 100.0100, L500.2500 #### [facility] [address] [place], [address] Lymphocytes/100 WBC (Bld) 25.7 % Normal 19-41 [facility] Comment on above: Performed By: #### L 100.0100, L500.2500 #### [facility] [address] [place], [address] MCH (RBC) [Entitic mass] 28.7 pg Normal 27.0-32.0 [facility] Comment on above: Performed By: #### L 100.0100, L500.2500 #### [facility] [address] [place], [address] MCHC (RBC) [Mass/Vol] 33.7 g/dL Normal 32-36 [facility] Comment on above: Performed By: #### L 100.0100, L500.2500 #### [facility] [address] [place], [address] MCV (RBC) [Entitic vol] 85.3 fL Normal 81-99 [facility] Comment on above: Performed By: #### L 100.0100, L500.2500 #### [facility] [address] [place], [address] Monocytes/100 WBC (Bld) 9.6 % Normal 0-10 [facility] Comment on above: Performed By: #### L 100.0100, L500.2500 #### [facility] [address] [place], [address] Neutrophils/100 WBC (Bld) 61.3 % Normal 47-70 [facility] Comment on above: Performed By: #### L 100.0100, L500.2500 #### [facility] [address] [place], [address] Nucleated RBC (Bld) [#/Vol] 0 10*3/uL Normal 0-5 [facility] Comment on above: Performed By: #### L 100.0100, L500.2500 #### [facility] [facility] [address] [place], [address] Platelet mean volume (Bld) [Entitic vol] 11.1 fL Normal 6.2-12.0 [facility] Comment on above: Performed By: #### L 100.0100, L500.2500 #### [facility] [address] [place], [address] Platelets (Bld) [#/Vol] 231 10*3/uL Normal 150-450 [facility] Comment on above: Performed By: #### L 100.0100, L500.2500 #### [facility] [address] [place], [address] RBC (Bld) [#/Vol] 4.42 10*6/uL Normal 4.2-5.4 [facility] Comment on above: Performed By: #### L 100.0100, L500.2500 #### [facility] [address] [place], [address] RDW SD 39.6 fl Normal 35.1-43.9 [facility] Comment on above: Performed By: #### L 100.0100, L500.2500 #### [facility] [address] [place], [address] WBC (Bld) [#/Vol] 6.5 10*3/uL Normal 4.4-11.0 [facility] Comment on above: Performed By: #### L 100.0100, L500.2500 #### [facility] [address] [place], [id number] Basic Metabolic Profile (BMP )on 05-03-2025 BUN Normal 4-19 [facility] Comment on above: Result Comment: Canc elled via OM: Order cancelled - Patient discharged Performed By: #### L 100.0100, L500.2500 #### [facility] [address] [place], [address] BUN/CRE Normal 10-20 [facility] Comment on above: Result Comment: Canc elled via OM: Order cancelled - Patient discharged Performed By: #### L 100.0100, L500.2500 #### [facility] [address] [place], [address] Calcium Normal 7.6-11.0 [facility] Comment on above: Result Comment: Canc elled via OM: Order cancelled - Patient discharged Performed By: #### L 100.0100, L500.2500 #### [facility] [address] [place], [address] CL Normal 98-108 [facility] Comment on above: Result Comment: Canc elled via OM: Order cancelled - Patient discharged Performed By: #### L 100.0100, L500.2500 #### [facility] [address] [place], [address] CO2 Normal 21.0-32.0 [facility] Comment on above: Result Comment: Canc elled via OM: Order cancelled - Patient discharged Performed By: #### L 100.0100, L500.2500 #### [facility] [address] [place], [id number] CREAT,SERUM Normal 0.70-1.20 [facility] Comment on above: Result Comment: Canc elled via OM: Order cancelled - Patient discharged Performed By: #### L 100.0100, L500.2500 #### [facility] [address] [place], [address] eGFR Normal >60 [facility] Comment on above: Result Comment: Canc elled via OM: Order cancelled - Patient discharged Performed By: #### L 100.0100, L500.2500 #### [facility] [address] [place], [address] GAP Normal 5-15 [facility] Comment on above: Result Comment: Canc elled via OM: Order cancelled - Patient discharged Performed By: #### L 100.0100, L500.2500 #### [facility] [address] [place], [address] GLU Normal 70-99 [facility] Comment on above: Result Comment: Canc elled via OM: Order cancelled - Patient discharged Performed By: #### L 100.0100, L500.2500 #### [facility] [address] [place], [address] Potassium Normal 3.3-5.1 [facility] Comment on above: Result Comment: Canc elled via OM: Order cancelled - Patient discharged Performed By: #### L 100.0100, L500.2500 #### [facility] [address] [place], [address] Basic Metabolic Profile (BMP) Normal 133-145 [facility] Comment on above: Result Comment: Canc elled via OM: Order cancelled - Patient discharged Performed By: #### L 100.0100, L500.2500 #### [facility] [address] [place], [address] Bedside Glucoseon 05-03-2025 FINGERSTICK GLU 147 mg/dL High 74-106 [facility] Comment on above: Result Comment: BONNIE CRYSTALENT OF PATIENT CARE PER NURSING PROTOCOL Performed By: #### L 100.0100, L500.2500 #### [facility] [address] [place], [address] FINGERSTICK GLU 124 mg/dL High 74-106 [facility] Comment on above: Result Comment: BONNIE AL OF PATIENT CARE PER NURSING PROTOCOL Performed By: #### L 500.2500, L100.0100 #### [facility] [address] [place], [address] Brain/Head without Contrasto n 05-03-2025 Brain/Head without Contrast [facility] [address] [place] [address] Brain/Head without Contrast MR#: [id number] Acct: [id number] Name: KIMANI COHEN Rep #: [id number] : 2000 F 24 From: Arian Wills MD PCP: Dr. Yessenia Dixon MD Status: REG CLI Study: Brain/Head without Contrast Date of Exam: 04/24 Exam# [id number] Ordering Dr: Benjy Gonzalez MD PROCEDURE: BRAIN/HEAD [...] Yessenia Dixon MD; Dr. Benjy Gonzalez MD Drying Machine Operator: Signed Normal [facility] CBC W/Diff, Automatedon 11-1 Absolute Neut Normal 2.0-7.7 [facility] Comment on above: Result Comment: Canc elled via OM: Order cancelled - Patient discharged Performed By: #### L 100.0100, L500.2500 #### [facility] [address] [place], [address] HCT Normal 37-47 [facility] Comment on above: Result Comment: Canc elled via OM: Order cancelled - Patient discharged Performed By: #### L 100.0100, L500.2500 #### [facility] [address] [place], [address] HGB Normal 12.0-15.0 [facility] Comment on above: Result Comment: Canc elled via OM: Order cancelled - Patient discharged Performed By: #### L 100.0100, L500.2500 #### [facility] [address] [place], [address] MCH Normal 27.0-32.0 [facility] Comment on above: Result Comment: Canc elled via OM: Order cancelled - Patient discharged Performed By: #### L 100.0100, L500.2500 #### [facility] [address] [place], [address] MCHC Normal 32-36 [facility] Comment on above: Result Comment: Canc elled via OM: Order cancelled - Patient discharged Performed By: #### L 100.0100, L500.2500 #### [facility] [address] [place], [address] MCV Normal 81-99 [facility] Comment on above: Result Comment: Canc elled via OM: Order cancelled - Patient discharged Performed By: #### L 100.0100, L500.2500 #### [facility] [address] [place], [address] NEUT% Normal 47-70 [facility] Comment on above: Result Comment: Canc elled via OM: Order cancelled - Patient discharged Performed By: #### L 100.0100, L500.2500 #### [facility] [address] [place], [address] PLT Normal 150-450 [facility] Comment on above: Result Comment: Canc elled via OM: Order cancelled - Patient discharged Performed By: #### L 100.0100, L500.2500 #### [facility] [address] [place], [address] RBC Normal 4.2-5.4 [facility] Comment on above: Result Comment: Canc elled via OM: Order cancelled - Patient discharged Performed By: #### L 100.0100, L500.2500 #### [facility] [address] [place], [address] RDW CV Normal 11.6-14.6 [facility] Comment on above: Result Comment: Canc elled via OM: Order cancelled - Patient discharged Performed By: #### L 100.0100, L500.2500 #### [facility] [address] [place], [address] RDW SD Normal 35.1-43.9 [facility] Comment on above: Result Comment: Canc elled via OM: Order cancelled - Patient discharged Performed By: #### L 100.0100, L500.2500 #### [facility] [address] [place], [address] WBC Normal 4.4-11.0 [facility] Comment on above: Result Comment: Canc elled via OM: Order cancelled - Patient discharged Performed By: #### L 100.0100, L500.2500 #### [facility] [address] [place], [address] Bedside Glucoseon 05-02-2025 FINGERSTICK GLU 115 mg/dL High 74-106 [facility] Comment on above: Result Comment: BONNIE GEMENT OF PATIENT CARE PER NURSING PROTOCOL Performed By: #### L 501.080 #### [facility] [address] [place], [address] FINGERSTICK GLU 139 mg/dL High -106 [facility] Comment on above: Result Comment: BONNIE GEMENT OF PATIENT CARE PER NURSING PROTOCOL Performed By: #### L 500.2500, L100.0100 #### [facility] [address] [place], [address] Bedside Glucoseon 05-01-2025 FINGERSTICK GLU 83 mg/dL Normal 74-106 [facility] Comment on above: Result Comment: BONNIE GEMENT OF PATIENT CARE PER NURSING PROTOCOL Performed By: #### L 500.2500, L100.0100 #### [facility] [address] [place], [address] FINGERSTICK GLU 142 mg/dL High 74-106 [facility] Comment on above: Result Comment: BONNIE GEMENT OF PATIENT CARE PER NURSING PROTOCOL Performed By: #### L 500.2500, L100.0100 #### [facility] [address] [place], [address] Bedside Glucoseon 04-30-2025 FINGERSTICK GLU 108 mg/dL High -106 [facility] Comment on above: Result Comment: BONNIE GEMENT OF PATIENT CARE PER NURSING PROTOCOL Performed By: #### L 100.0100, L500.2500 #### [facility] [address] [place], [address] FINGERSTICK GLU 156 mg/dL High 74-106 [facility] Comment on above: Result Comment: BONNIE GEMENT OF PATIENT CARE PER NURSING PROTOCOL Performed By: #### L 500.2500, L100.0100 #### [facility] [address] [place], [address] Bedside Glucoseon 04-29-2025 FINGERSTICK GLU 140 mg/dL High 74-106 [facility] Comment on above: Result Comment: BONNIE GEMENT OF PATIENT CARE PER NURSING PROTOCOL Performed By: #### L 100.0100, L500.2500 #### [facility] [address] [place], [address] FINGERSTICK GLU 173 mg/dL High 74-106 [facility] Comment on above: Result Comment: BONNIE GEMENT OF PATIENT CARE PER NURSING PROTOCOL Performed By: #### L 100.0100, L500.2500 #### [facility] [address] [place], [address] Bedside Glucoseon 04-28-2025 FINGERSTICK GLU 92 mg/dL Normal 74-106 [facility] Comment on above: Result Comment: BONNIE GEMENT OF PATIENT CARE PER NURSING PROTOCOL Performed By: #### L 100.0100, L500.2500 #### [facility] [address] [place], [address] FINGERSTICK GLU 119 mg/dL High 74-106 [facility] Comment on above: Result Comment: BONNIE GEMENT OF PATIENT CARE PER NURSING PROTOCOL Performed By: #### L 500.2500, L100.0100 #### [facility] [address] [place], [address] Basic Metabolic Profile (BMP )on 04-27-2025 BUN/CRE 45.3 RATIO High 10-20 [facility] Comment on above: Performed By: #### L 500.2500, L100.0100 #### [facility] [address] [place], [address] Calcium [Mass/Vol] 9.4 mg/dL Normal 7.6-11.0 [facility] Comment on above: Performed By: #### L 500.2500, L100.0100 #### [facility] [address] [place], [id number] Chloride [Moles/Vol] 99 mmol/L Normal 98-108 [facility] Comment on above: Performed By: #### L 500.2500, L100.0100 #### [facility] [address] [place], [address] CO2 [Moles/Vol] 30.5 mmol/L Normal 21.0-32.0 [facility] Comment on above: Performed By: #### L 500.2500, L100.0100 #### [facility] [address] [place], [address] Creatinine [Mass/Vol] 0.35 mg/dL Low 0.70-1.20 [facility] Comment on above: Performed By: #### L 500.2500, L100.0100 #### [facility] [address] [place], [address] ECRCL 137.21 ml/min Normal 50-250 [facility] Comment on above: Performed By: #### L 500.2500, L100.0100 #### [facility] [address] [place], [address] GAP 9 Normal 5-15 [facility] Comment on above: Performed By: #### L 500.2500, L100.0100 #### [facility] [address] [place], [address] GFR/1.73 sq M.predicted among non-blacks MDRD (S/P/Bld) [Vol rate/Area] 148 mL/min/{1.73_m2} Normal >60 [facility] Comment on above: Result Comment: mL/m in/1.73m2 CKD-EPI Creatinine Equation (2020) Performed By: #### L 500.2500, L100.0100 #### [facility] [address] [place], [address] Glucose [Mass/Vol] 141 mg/dL High 70-99 [facility] Comment on above: Performed By: #### L 500.2500, L100.0100 #### [facility] [address] [place], [address] Potassium [Moles/Vol] 4.0 mmol/L Normal 3.3-5.1 [facility] Comment on above: Performed By: #### L 500.2500, L100.0100 #### [facility] [address] [place], [address] Sodium [Moles/Vol] 139 mmol/L Normal 133-145 [facility] Comment on above: Performed By: #### L 500.2500, L100.0100 #### [facility] [address] [place], [address] Urea nitrogen [Mass/Vol] 16 mg/dL Normal 4-19 [facility] Comment on above: Performed By: #### L 500.2500, L100.0100 #### [facility] [address] [place], [address] Bedside Glucoseon 04-27-2025 FINGERSTICK GLU 107 mg/dL High 74-106 [facility] Comment on above: Result Comment: BONNIE GEMENT OF PATIENT CARE PER NURSING PROTOCOL Performed By: #### L 100.0100, L500.2500 #### [facility] [address] [place], [address] FINGERSTICK GLU 128 mg/dL High 74-106 [facility] Comment on above: Result Comment: BONNIE GEMENT OF PATIENT CARE PER NURSING PROTOCOL Performed By: #### L 500.2500, L100.0100 #### [facility] [address] [place], [address] CBC W/Diff, Automatedon 11-0 -2024 Absolute Lymph 1.48 X10 3/uL Normal 0.83-4.51 [facility] Comment on above: Performed By: #### L 500.2500, L100.0100 #### [facility] [address] [place], [address] Absolute Neut 2.3 X10 3/uL Normal 2.0-7.7 [facility] Comment on above: Performed By: #### L 500.2500, L100.0100 #### [facility] [address] [place], [address] Basophils/100 WBC (Bld) 0.9 % Normal 0-1 [facility] Comment on above: Performed By: #### L 500.2500, L100.0100 #### [facility] [address] [place], [address] Eosinophils/100 WBC (Bld) 2.2 % Normal 0-5 [facility] Comment on above: Performed By: #### L 500.2500, L100.0100 #### [facility] [address] [place], [address] Erythrocyte distribution width (RBC) [Ratio] 12.8 % Normal 11.6-14.6 [facility] Comment on above: Performed By: #### L 500.2500, L100.0100 #### [facility] [address] [place], [address] Hematocrit (Bld) [Volume fraction] 36.9 % Low 37-47 [facility] Comment on above: Performed By: #### L 500.2500, L100.0100 #### [facility] [address] [place], [address] Hemoglobin (Bld) [Mass/Vol] 12.0 g/dL Normal 12.0-15.0 [facility] Comment on above: Performed By: #### L 500.2500, L100.0100 #### [facility] [address] [place], [address] IG% 1.600 High 0.0-0.9 [facility] Comment on above: Result Comment: IG% - Immature Granulocytes (promyelocytes, myelocytes and metamyelocytes) > 1% indicates that a LEFT SHIFT is Present. Performed By: #### L 500.2500, L100.0100 #### [facility] [address] [place], [address] Lymphocytes/100 WBC (Bld) 33.2 % Normal 19-41 [facility] Comment on above: Performed By: #### L 500.2500, L100.0100 #### [facility] [address] [place], [address] MCH (RBC) [Entitic mass] 28.7 pg Normal 27.0-32.0 [facility] Comment on above: Performed By: #### L 500.2500, L100.0100 #### [facility] [address] [place], [address] MCHC (RBC) [Mass/Vol] 32.5 g/dL Normal 32-36 [facility] Comment on above: Performed By: #### L 500.2500, L100.0100 #### [facility] [address] [place], [address] MCV (RBC) [Entitic vol] 88.3 fL Normal 81-99 [facility] Comment on above: Performed By: #### L 500.2500, L100.0100 #### [facility] [address] [place], [address] Monocytes/100 WBC (Bld) 9.9 % Normal 0-10 [facility] Comment on above: Performed By: #### L 500.2500, L100.0100 #### [facility] [address] [place], [address] Neutrophils/100 WBC (Bld) 52.2 % Normal 47-70 [facility] Comment on above: Performed By: #### L 500.2500, L100.0100 #### [facility] [address] [place], [address] Nucleated RBC (Bld) [#/Vol] 0 10*3/uL Normal 0-5 [facility] Comment on above: Performed By: #### L 500.2500, L100.0100 #### [facility] [address] [place], [address] Platelet mean volume (Bld) [Entitic vol] 10.7 fL Normal 6.2-12.0 [facility] Comment on above: Performed By: #### L 500.2500, L100.0100 #### [facility] [address] [place], [address] Platelets (Bld) [#/Vol] 249 10*3/uL Normal 150-450 [facility] Comment on above: Performed By: #### L 500.2500, L100.0100 #### [facility] [address] [place], [address] RBC (Bld) [#/Vol] 4.18 10*6/uL Low 4.2-5.4 [facility] Comment on above: Performed By: #### L 500.2500, L100.0100 #### [facility] [address] [place], [address] RDW SD 41.7 fl Normal 35.1-43.9 [facility] Comment on above: Performed By: #### L 500.2500, L100.0100 #### [facility] [address] [place], [address] WBC (Bld) [#/Vol] 4.5 10*3/uL Normal 4.4-11.0 [facility] Comment on above: Performed By: #### L 500.2500, L100.0100 #### [facility] [address] [place], [address] Basic Metabolic Profile (BMP )on 04-26-2025 BUN Normal 4-19 [facility] Comment on above: Result Comment: Canc elled via OM: Order cancelled - Patient discharged Performed By: #### L 500.2500, L100.0100 #### [facility] [address] [place], [address] BUN/CRE Normal 10-20 [facility] Comment on above: Result Comment: Canc elled via OM: Order cancelled - Patient discharged Performed By: #### L 500.2500, L100.0100 #### [facility] [address] [place], [address] Calcium Normal 7.6-11.0 [facility] Comment on above: Result Comment: Canc elled via OM: Order cancelled - Patient discharged Performed By: #### L 500.2500, L100.0100 #### [facility] [address] [place], [address] CL Normal 98-108 [facility] Comment on above: Result Comment: Canc elled via OM: Order cancelled - Patient discharged Performed By: #### L 500.2500, L100.0100 #### [facility] [address] [place], [address] CO2 Normal 21.0-32.0 [facility] Comment on above: Result Comment: Canc elled via OM: Order cancelled - Patient discharged Performed By: #### L 500.2500, L100.0100 #### [facility] [address] [place], [address] CREAT,SERUM Normal 0.70-1.20 [facility] Comment on above: Result Comment: Canc elled via OM: Order cancelled - Patient discharged Performed By: #### L 500.2500, L100.0100 #### [facility] [address] [place], [address] eGFR Normal >60 [facility] Comment on above: Result Comment: Canc elled via OM: Order cancelled - Patient discharged Performed By: #### L 500.2500, L100.0100 #### [facility] [address] [place], [address] GAP Normal 5-15 [facility] Comment on above: Result Comment: Canc elled via OM: Order cancelled - Patient discharged Performed By: #### L 500.2500, L100.0100 #### [facility] [address] [place], [address] GLU Normal 70-99 [facility] Comment on above: Result Comment: Canc elled via OM: Order cancelled - Patient discharged Performed By: #### L 500.2500, L100.0100 #### [facility] [address] [place], [address] Potassium Normal 3.3-5.1 [facility] Comment on above: Result Comment: Canc elled via OM: Order cancelled - Patient discharged Performed By: #### L 500.2500, L100.0100 #### [facility] [address] [place], [address] Basic Metabolic Profile (BMP) Normal 133-145 [facility] Comment on above: Result Comment: Canc elled via OM: Order cancelled - Patient discharged Performed By: #### L 500.2500, L100.0100 #### [facility] [address] [place], [address] Bedside Glucoseon 04-26-2025 FINGERSTICK GLU 103 mg/dL Normal 74-106 [facility] Comment on above: Result Comment: BONNIE AL OF PATIENT CARE PER NURSING PROTOCOL Performed By: #### L 100.0100, L500.2500 #### [facility] [address] [place], [address] CBC W/Diff, Automatedon 11-0 Absolute Neut Normal 2.0-7.7 [facility] Comment on above: Result Comment: Canc elled via OM: Order cancelled - Patient discharged Performed By: #### L 500.2500, L100.0100 #### [facility] [address] [place], [address] HCT Normal 37-47 [facility] Comment on above: Result Comment: Canc elled via OM: Order cancelled - Patient discharged Performed By: #### L 500.2500, L100.0100 #### [facility] [address] [place], [address] HGB Normal 12.0-15.0 [facility] Comment on above: Result Comment: Canc elled via OM: Order cancelled - Patient discharged Performed By: #### L 500.2500, L100.0100 #### [facility] [address] [place], [address] MCH Normal 27.0-32.0 [facility] Comment on above: Result Comment: Canc elled via OM: Order cancelled - Patient discharged Performed By: #### L 500.2500, L100.0100 #### [facility] [address] [place], [address] MCHC Normal 32-36 [facility] Comment on above: Result Comment: Canc elled via OM: Order cancelled - Patient discharged Performed By: #### L 500.2500, L100.0100 #### [facility] [address] [place], [place], [address] MCV Normal 81-99 [facility] Comment on above: Result Comment: Canc elled via OM: Order cancelled - Patient discharged Performed By: #### L 500.2500, L100.0100 #### [facility] [address] [place], [address] NEUT% Normal 47-70 [facility] Comment on above: Result Comment: Canc elled via OM: Order cancelled - Patient discharged Performed By: #### L 500.2500, L100.0100 #### [facility] [address] [place], [address] PLT Normal 150-450 [facility] Comment on above: Result Comment: Canc elled via OM: Order cancelled - Patient discharged Performed By: #### L 500.2500, L100.0100 #### [facility] [address] [place], [address] RBC Normal 4.2-5.4 [facility] Comment on above: Result Comment: Canc elled via OM: Order cancelled - Patient discharged Performed By: #### L 500.2500, L100.0100 #### [facility] [address] [place], [address] RDW CV Normal 11.6-14.6 [facility] Comment on above: Result Comment: Canc elled via OM: Order cancelled - Patient discharged Performed By: #### L 500.2500, L100.0100 #### [facility] [address] [place], [address] RDW SD Normal 35.1-43.9 [facility] Comment on above: Result Comment: Canc elled via OM: Order cancelled - Patient discharged Performed By: #### L 500.2500, L100.0100 #### [facility] [address] [place], [address] WBC Normal 4.4-11.0 [facility] Comment on above: Result Comment: Canc elled via OM: Order cancelled - Patient discharged Performed By: #### L 500.2500, L100.0100 #### [facility] [address] [place], [address] CT HEAD WO IV CONTRASTon CT HEAD WO IV CONTRAST Normal [facility] CT Head WO contraston 2024 1. [...] findings as stated by Brian Gamez MD (vice president integrated). MACRO: None Signed by: Leon Bai 04/26/2025 12:14 PM Dictation workstation: [id number] [facility] Interpreted By: Leon Xiao and [...] HEAD WO IV CONTRAST 04/22/2025 ACCESSION NUMBER(S): [id number] ORDERING CLINICIAN: ALFRED SELF TECHNIQUE: Noncontrast axial [...] HEAD WO IV CONTRAST 04/22/2025 ACCESSION NUMBER(S): [id number] ORDERING CLINICIAN: ALFRED SELF TECHNIQUE: Noncontrast axial [...] findings as stated by Brian Gamez MD (vice president integrated). MACRO: None Signed by: Leon Bai 04/26/2025 12:14 PM Dictation workstation: [id number] [facility] Work Phone: Radiology Study observation (narrative) [facility] Work Phone: CT Head WO contrastOrdered B y: Leon Bai on 04-26-2025 [facility] Work Phone: Glucose Test strip manual (B ld) [Mass/Vol]on 04-26-2025 Glucose [Mass/Vol] 161 mg/dL High 74 - 99 mg/dL [facility] Interpretation and review of laboratory results Abnormal [facility] Glucose [Mass/Vol] 161 mg/dL High 74-99 [facility] Comment on above: Performed By: #### 2 341-6 ####CALE Roth ([id number])[facility] ([facility])[address] [place] [address] Glucose [Mass/Vol] 153 mg/dL High 74 - 99 mg/dL [facility] Interpretation and review of laboratory results Abnormal [facility] Glucose [Mass/Vol] 153 mg/dL High 74-99 [facility] Comment on above: Performed By: #### 2 341-6 ####CALE Roth ([id number])[facility] ([facility])[address] [place] [address] CBC panel Auto (Bld)on 04-25 Erythrocyte distribution width (RBC) [Ratio] 12.9 % 11.5 - 14.5 % [facility] Hematocrit (Bld) [Volume fraction] 39.7 % 36.0 - 46.0 % [facility] Hemoglobin (Bld) [Mass/Vol] 12.7 g/dL 12.0 - 16.0 g/dL [facility] Interpretation and review of laboratory results Normal [facility] MCH (RBC) [Entitic mass] 28.9 pg 26.0 - 34.0 pg [facility] MCHC (RBC) [Mass/Vol] 32.0 g/dL 32.0 - 36.0 g/dL [facility] MCV (RBC) [Entitic vol] 90 fL 80 - 100 fL [facility] Nucleated RBC/100 WBC (Bld) [Ratio] 0.0 % [facility] Platelets (Bld) [#/Vol] 247 10*3/uL [facility] RBC (Bld) [#/Vol] 4.39 10*6/uL [facility] WBC (Bld) [#/Vol] 5.1 10*3/uL [facility] Erythrocyte distribution width (RBC) [Ratio] 12.9 % Normal 11.5-14.5 [facility] Comment on above: Performed By: #### 5 8410-2 ####CALE Roth ([id number])[facility] ([facility])[address] [place] [address] Hematocrit (Bld) [Volume fraction] 39.7 % Normal 36.0-46.0 [facility] Comment on above: Performed By: #### 5 8410-2 ####CALE Roth ([id number])[facility] ([facility])[address] [place] [address] Hemoglobin (Bld) [Mass/Vol] 12.7 g/dL Normal 12.0-16.0 [facility] Comment on above: Performed By: #### 5 8410-2 ####CALE Roth ([id number])[facility] ([facility])[address] [place] [address] MCH (RBC) [Entitic mass] 28.9 pg Normal 26.0-34.0 [facility] Comment on above: Performed By: #### 5 8410-2 ####CALE Roth ([id number])[facility] ([facility])[address] [place] [address] MCHC (RBC) [Mass/Vol] 32.0 g/dL Normal 32.0-36.0 [facility] Comment on above: Performed By: #### 5 8410-2 ####CALE Roth ([id number])[facility] ([facility])[address] [place] [address] MCV (RBC) [Entitic vol] 90 fL Normal 80-100 [facility] Comment on above: Performed By: #### 5 8410-2 ####CALE Roth ([id number])[facility] ([facility])[address] [place] [address] Nucleated RBC/100 WBC (Bld) [Ratio] 0.0 /100 WBCs Normal 0.0-0.0 [facility] Comment on above: Performed By: #### 5 8410-2 ####CAEL Roth ([id number])[facility] ([facility])[address] [place] [address] Platelets (Bld) [#/Vol] 247 x10*3/uL Normal 150-450 [facility] Comment on above: Performed By: #### 5 8410-2 ####CALE CAI L ([id number])[facility] ([facility])[address] [place] [address] RBC (Bld) [#/Vol] 4.39 x10*6/uL Normal 4.00-5.20 [facility] Comment on above: Performed By: #### 5 8410-2 ####CALE Roth ([id number])[facility] ([facility])[address] [place] [address] WBC (Bld) [#/Vol] 5.1 x10*3/uL Normal 4.4-11.3 [facility] Comment on above: Performed By: #### 5 8410-2 ####CALE Roth ([id number])[facility] ([facility])[address] [place] [address] Glucose Test strip manual (B ld) [Mass/Vol]on 04-25-2025 Glucose [Mass/Vol] 204 mg/dL High 74 - 99 mg/dL [facility] Interpretation and review of laboratory results Abnormal [facility] Glucose [Mass/Vol] 204 mg/dL High 74-99 [facility] Comment on above: Performed By: #### 2 341-6 ####CALE CAI L ([id number])[facility] ([facility])[address] [place] [address] Glucose [Mass/Vol] 118 mg/dL High 74 - 99 mg/dL [facility] Interpretation and review of laboratory results Abnormal [facility] Glucose [Mass/Vol] 118 mg/dL High 74-99 [facility] Comment on above: Performed By: #### 2 341-6 ####CALE Roth ([id number])[facility] ([facility])[address] [place] [address] Glucose [Mass/Vol] 134 mg/dL High 74 - 99 mg/dL [facility] Interpretation and review of laboratory results Abnormal [facility] Glucose [Mass/Vol] 134 mg/dL High 74-99 [facility] Comment on above: Performed By: #### 2 341-6 ####CALE Roth ([id number])[facility] ([facility])[address] [place] [address] Glucose [Mass/Vol] 177 mg/dL High 74 - 99 mg/dL [facility] Interpretation and review of laboratory results Abnormal [facility] Glucose [Mass/Vol] 177 mg/dL High 74-99 [facility] Comment on above: Performed By: #### 2 341-6 ####CALE Roth ([id number])[facility] ([facility])[address] [place] [address] Glucose [Mass/Vol] 173 mg/dL High 74 - 99 mg/dL [facility] Interpretation and review of laboratory results Abnormal [facility] Glucose [Mass/Vol] 173 mg/dL High 74-99 [facility] Comment on above: Performed By: #### 2 341-6 ####CALE Roth ([id number])[facility] ([facility])[address] [place] [address] MR BRAIN WO IV CONTRASTon MR BRAIN WO IV CONTRAST Normal [facility] MR Brain WO contraston 04-25 1. Negative brain MR I examination for acute change. 2. Again noted is edema within the cerebellar hemispheres. MACRO: None Signed by: Efrain Jackson 04/25/2025 1:28 PM Dictation workstation: [id number] [facility] Interpreted By: Efrain Reed, STUDY: MR BRAIN WO IV CONTRAST; 04/25/2025 11:23 am INDICATION: Signs/Symptoms:r/o new stroke. 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 Parenchyma: There is no restricted diffusion to suggest acute ischemia. Again noted is edema within the cerebellar hemispheres. Ventricles: There is no hydrocephalus. A MINING PLANT OPERATOR shunt is better visualized on prior CT [...] CT of April 24, 2025 ACCESSION NUMBER(S): [id number] ORDERING CLINICIAN: ALFRED SELF TECHNIQUE: Multiplaner, multisequence MRI were obtained without contrast FINDINGS: The examination is limited by motion artifact and susceptibility artifact. Parenchyma: There is no restricted diffusion to suggest acute ischemia. Again noted is edema within the cerebellar hemispheres. Ventricles: There is no hydrocephalus. A MINING PLANT OPERATOR shunt is better visualized on prior CT [...] Efrain Jackson 04/25/2025 1:28 PM Dictation workstation: [id number] [facility] Work Phone: Radiology Study observation (narrative) [facility] Work Phone: MR Brain WO contrastOrdered By: Efrain Jackson on 04-25-2025 [facility] Work Phone: Renal function 2000 panelon 04-25-2025 Albumin BCP dye [Mass/Vol] 3.7 g/dL 3.4 - 5.0 g/dL [facility] Anion gap [Moles/Vol] 13 mmol/L 10 - 20 mmol/L [facility] Calcium [Mass/Vol] 9.5 mg/dL 8.6 - 10. 6 mg/dL [facility] Chloride [Moles/Vol] 97 mmol/L Low 98 - 10 7 mmol/L [facility] CO2 [Moles/Vol] 32 mmol/L 21 - 32 mmol/L [facility] Comment on above: Bicarbonate results may be falsely elevated when Lactate Dehydrogenase (LDH) concentrations exceed 2,000 U/L due to a temporary reagent manufacturing issue. If significantly elevated LDH levels are suspected, interpret bicarbonate results with caution, correlate with the patient s clinical status, and consider confirming CO2 values using a blood gas analyzer. Creatinine [Mass/Vol] 0.36 mg/dL Low 0.50 - 1.05 mg/dL [facility] eGFR - PINF [facility] Comment on above: Calculations of marisol mated GFR are performed using the 2020 CKD-EPI Study Refit equation without the race variable for the IDMS-Traceable creatinine methods. https://jasn.asnjournals.org/content/early//ASN.2467363 988 Glucose [Mass/Vol] 119 mg/dL High 74 - 99 mg/dL [facility] Interpretation and review of laboratory results Abnormal [facility] Phosphate [Mass/Vol] 3.8 mg/dL 2.5 - 4 .9 mg/dL [facility] Potassium [Moles/Vol] 4.6 mmol/L 3.5 - 5.3 mmol/L [facility] Sodium [Moles/Vol] 137 mmol/L 136 - 145 mmol/L [facility] Urea nitrogen [Mass/Vol] 12 mg/dL 6 - 23 mg/dL [facility] Albumin BCP dye [Mass/Vol] 3.7 g/dL Normal 3.4-5.0 [facility] Comment on above: Performed By: #### 2 4362-6 ####CALE Roth ([id number])[facility] ([facility])[address] [place] [address] Anion gap [Moles/Vol] 13 mmol/L Normal 10-20 [facility] Comment on above: Performed By: #### 2 4362-6 ####CALE Roth ([id number])[facility] ([facility])[address] [place] [address] Calcium [Mass/Vol] 9.5 mg/dL Normal 8.6-10.6 [facility] Comment on above: Performed By: #### 2 4362-6 ####CALE Roth ([id number])[facility] ([facility])[address] [place] [address] Chloride [Moles/Vol] 97 mmol/L Low 98-107 [facility] Comment on above: Performed By: #### 2 4362-6 ####CALE Roth ([id number])[facility] ([facility])[address] [place] [address] CO2 [Moles/Vol] 32 mmol/L Normal 21-[address] [facility] Comment on above: Result Comment: Bica rbonate results may be falsely elevated when Lactate Dehydrogenase (LDH) concentrations exceed 2,000 U/L due to a temporary reagent manufacturing issue. If significantly elevated LDH levels are suspected, interpret bicarbonate results with caution, correlate with the patient's clinical status, and consider confirming CO2 values using a blood gas analyzer. Performed By: #### 2 4362-6 ####CALE Roth ([id number])[facility] ([facility])[address] [place] [address] Creatinine [Mass/Vol] 0.36 mg/dL Low 0.50-1.05 [facility] Comment on above: Performed By: #### 2 4362-6 ####CALE Roth ([id number])[facility] ([facility])[address] [place] [address] Glomerular filtration rate >90 Normal >60 [facility] Comment on above: Result Comment: Calc ulations of estimated GFR are performed using the 2020 CKD-EPI Study Refit equation without the race variable for the IDMS-Traceable creatinine methods.https://jasn.asnjournals.org/content/early/ASN .0297688685 Performed By: #### 2 4362-6 ####CALE Roth ([id number])[facility] ([facility])[address] [place] [address] Glucose [Mass/Vol] 119 mg/dL High 74-99 [facility] Comment on above: Performed By: #### 2 4362-6 ####CALE Roth ([id number])[facility] ([facility])[address] [place] [address] Phosphate [Mass/Vol] 3.8 mg/dL Normal 2.5-4.9 [facility] Comment on above: Performed By: #### 2 4362-6 ####CALE Roth ([id number])[facility] ([facility])[address] [place] [address] Potassium [Moles/Vol] 4.6 mmol/L Normal 3.5-5.3 [facility] Comment on above: Performed By: #### 2 4362-6 ####CALE Roth ([id number])[facility] ([facility])[address] [place] [address] Sodium [Moles/Vol] 137 mmol/L Normal 136-145 [facility] Comment on above: Performed By: #### 2 4362-6 ####CALE Roth ([id number])[facility] ([facility])[address] [place] [address] Urea nitrogen [Mass/Vol] 12 mg/dL Normal 6-23 [facility] Comment on above: Performed By: #### 2 4362-6 ####CALE Roth ([id number])[facility] ([facility])[address] [place] [address] Urine Cultureon 04-25-2025 [facility] If Gram Positive [place] susceptibility studies are desired, contact the Microbiology Laboratory within 48 hours [phone]. Urine Culture Urine Culture Urine Culture Lactobacillus species Basco Count <1000 Normal [facility] Comment on above: Performed By: #### L 500.2500, L100.0100 #### [facility] [address] [place], [address] CT HEAD WO IV CONTRASTon CT HEAD WO IV CONTRAST Normal [facility] CT Head WO contraston 2024 1. [...] Alex Obregon 04/24/2025 8:14 AM Dictation workstation: [id number] [facility] Interpreted By: Alex Glez, STUDY: CT HEAD WO IV CONTRAST; 04/24/2025 5:36 am INDICATION: Signs/Symptoms: Vent Size sp shunt dial. COMPARISON: None. ACCESSION NUMBER(S): [id number] ORDERING CLINICIAN: ALFRED SELF TECHNIQUE: Noncontrast axial [...] Vague densities along the bilateral frontal convexities cklf-hjabymm-hjad-right favored to represent beam hardening artifact. No [...] sp shunt dial. COMPARISON: None. ACCESSION NUMBER(S): [id number] ORDERING CLINICIAN: ALRFED SELF TECHNIQUE: Noncontrast axial CT scan of [...] Vague densities along the bilateral frontal convexities soix-anfwjpq-gsbb-right favored to represent beam hardening artifact. No [...] Alex Obregon 04/24/2025 8:14 AM Dictation workstation: [id number] [facility] Work Phone: Radiology Study observation (narrative) [facility] Work Phone: CT Head WO contrastOrdered B y: Alex Obregon on 04-24-2025 [facility] Work Phone: Glucose Test strip manual (B ld) [Mass/Vol]on 04-24-2025 Glucose [Mass/Vol] 147 mg/dL High 74 - 99 mg/dL [facility] Interpretation and review of laboratory results Abnormal [facility] Glucose [Mass/Vol] 147 mg/dL High 74-99 [facility] Comment on above: Performed By: #### 2 341-6 ####CALE Roth ([id number])[facility] ([facility])[address] [place] [address] Glucose [Mass/Vol] 143 mg/dL High 74 - 99 mg/dL [facility] Interpretation and review of laboratory results Abnormal [facility] Glucose [Mass/Vol] 143 mg/dL High 74-99 [facility] Comment on above: Performed By: #### 2 341-6 ####CALE Roth ([id number])[facility] ([facility])[address] [place] [address] Glucose [Mass/Vol] 138 mg/dL High 74 - 99 mg/dL [facility] Interpretation and review of laboratory results Abnormal [facility] Glucose [Mass/Vol] 138 mg/dL High 74-99 [facility] Comment on above: Performed By: #### 2 341-6 ####CALE Roth ([id number])[facility] ([facility])[address] [place] [address] MR Brain WO contraston 04-24 Only fiscal accountant images. M R imaging of the brain was not completed due to unstable condition of the patient. Nondiagnostic study. I personally reviewed the images/study and I agree with the findings as stated by Sherrill Jackson MD. This study was interpreted at [facility], [place], [place]. MACRO: None Signed by: Mohan Rincon 04/24/2025 8:34 AM Dictation workstation: [id number] Interpreted By: Mohan Castillo and Kaur Arashdeep STUDY: MR BRAIN WO IV CONTRAST; 04/23/2025 8:11 pm INDICATION: Signs/Symptoms:altered mental status. COMPARISON: None. ACCESSION NUMBER(S): [id number] ORDERING CLINICIAN: ALFRED SELF TECHNIQUE: Only fiscal accountant images were obtained. MR imaging of the brain was not completed due to unstable condition of the patient. FINDINGS: Only fiscal accountant images. MR imaging of the brain was not completed due to unstable condition of the patient Mohan Valdes MD - 04/24/2025 Interpreted By: Mohan Rincon and Kaur Arashdeep STUDY: MR BRAIN WO IV CONTRAST; 04/23/2025 8:11 pm INDICATION: Signs/Symptoms:altered mental status. COMPARISON: None. ACCESSION NUMBER(S): [id number] ORDERING CLINICIAN: ALFRED SELF TECHNIQUE: Only fiscal accountant images were obtained. MR imaging of the brain was not completed due to unstable condition of the patient. FINDINGS: Only fiscal accountant images. MR imaging of the brain was not completed due to unstable condition of the patient IMPRESSION: Only fiscal accountant images. MR imaging of the brain was not completed due to unstable condition of the patient. Nondiagnostic study. I personally reviewed the images/study and I agree with the findings as stated by Shrerill Jackson MD. This study was interpreted at [facility], [place], [place]. MACRO: None Signed by: Mohan Rincon 04/24/2025 8:34 AM Dictation workstation: [id number] [facility] Work Phone: MR Brain WO contrastOrdered By: Mohan Rincon on 04-24-2025 [facility] Work Phone: CT HEAD WO IV CONTRASTon CT HEAD WO IV CONTRAST Normal [facility] CT Head WO contraston 2024 1. [...] Guillermo Khoury. This study was interpreted at [place], [place]. 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 Per EMR: 24-year-old female diagnosed with [...] BRAIN WO IV CONTRAST 03/18/2025 ACCESSION NUMBER(S): [id number] ORDERING CLINICIAN: GABE FLORES TECHNIQUE: Noncontrast axial [...] Guillermo Khoury. This study was interpreted at [facility], [place], [place]. MACRO: None Signed by: Sugey Machado 04/23/2025 12:21 PM Dictation workstation: [id number] [facility] Work Phone: Radiology Study observation (narrative) [facility] Work Phone: CT Head WO contrastOrdered B y: Sugey Machado on 04-23-2025 [facility] Work Phone: Glucose Test strip manual (B ld) [Mass/Vol]on 04-23-2025 Glucose [Mass/Vol] 132 mg/dL High 74 - 99 mg/dL [facility] Interpretation and review of laboratory results Abnormal [facility] Glucose [Mass/Vol] 132 mg/dL High 74-99 [facility] Comment on above: Performed By: #### 2 341-6 ####CALE Roth ([id number])[facility] ([facility])[address] [place] [address] Glucose [Mass/Vol] 156 mg/dL High 74 - 99 mg/dL [facility] Interpretation and review of laboratory results Abnormal [facility] Glucose [Mass/Vol] 156 mg/dL High 74-99 [facility] Comment on above: Performed By: #### 2 341-6 ####CALE Roth ([id number])[facility] ([facility])[address] [place] [address] Glucose [Mass/Vol] 101 mg/dL High 74 - 99 mg/dL [facility] Interpretation and review of laboratory results Abnormal [facility] Glucose [Mass/Vol] 101 mg/dL High 74-99 [facility] Comment on above: Performed By: #### 2 341-6 ####CALE Roth ([id number])[facility] ([facility])[address] [place] [address]85 Glucose [Mass/Vol] 146 mg/dL High 74 - 99 mg/dL [facility] Interpretation and review of laboratory results Abnormal [facility] Glucose [Mass/Vol] 146 mg/dL High 74-99 [facility] Comment on above: Performed By: #### 2 341-6 ####CALE Roth ([id number])[facility] ([facility])[address] [place] [address] Glucose [Mass/Vol] 93 mg/dL 74 - 99 mg/dL [facility] Interpretation and review of laboratory results Normal [facility] Glucose [Mass/Vol] 93 mg/dL Normal 74-99 [facility] Comment on above: Performed By: #### 2 341-6 ####CALE Roth ([id number])[facility] ([facility])[address] [place], [place] [address] MR BRAIN WO IV CONTRASTon MR BRAIN WO IV CONTRAST Normal [facility] MR Brain WO contraston 04-23 Radiology Study observation (narrative) [facility] Work Phone: CBC panel Auto (Bld)on 04-22 Erythrocyte distribution width (RBC) [Ratio] 12.6 % 11.5 - 14.5 % [facility] Hematocrit (Bld) [Volume fraction] 39.4 % 36.0 - 46.0 % [facility] Hemoglobin (Bld) [Mass/Vol] 12.8 g/dL 12.0 - 16.0 g/dL [facility] Interpretation and review of laboratory results Normal [facility] MCH (RBC) [Entitic mass] 29.2 pg 26.0 - 34.0 pg [facility] MCHC (RBC) [Mass/Vol] 32.5 g/dL 32.0 - 36.0 g/dL [facility] MCV (RBC) [Entitic vol] 90 fL 80 - 100 fL [facility] Nucleated RBC/100 WBC (Bld) [Ratio] 0.0 % [facility] Platelets (Bld) [#/Vol] 294 10*3/uL [facility] RBC (Bld) [#/Vol] 4.39 10*6/uL [facility] WBC (Bld) [#/Vol] 4.7 10*3/uL [facility] Erythrocyte distribution width (RBC) [Ratio] 12.6 % Normal 11.5-14.5 [facility] Comment on above: Performed By: #### 5 8410-2 ####CALE Roth ([id number])[facility] ([facility])[address] [place] [address] Hematocrit (Bld) [Volume fraction] 39.4 % Normal 36.0-46.0 [facility] Comment on above: Performed By: #### 5 8410-2 ####CALE Roth ([id number])[facility] ([facility])[address] [place] [address] Hemoglobin (Bld) [Mass/Vol] 12.8 g/dL Normal 12.0-16.0 [facility] Comment on above: Performed By: #### 5 8410-2 ####CALE Roth ([id number])[facility] ([facility])[address] [place] [address] MCH (RBC) [Entitic mass] 29.2 pg Normal 26.0-34.0 [facility] Comment on above: Performed By: #### 5 8410-2 ####CALE Roth ([id number])[facility] ([facility])[address] [place] [address] MCHC (RBC) [Mass/Vol] 32.5 g/dL Normal 32.0-36.0 [facility] Comment on above: Performed By: #### 5 8410-2 ####CALE Roth ([id number])[facility] ([facility])[address] [place] [address] MCV (RBC) [Entitic vol] 90 fL Normal 80-100 [facility] Comment on above: Performed By: #### 5 8410-2 ####CALE Roth ([id number])[facility] ([facility])[address] [place] [address] Nucleated RBC/100 WBC (Bld) [Ratio] 0.0 /100 WBCs Normal 0.0-0.0 [facility] Comment on above: Performed By: #### 5 8410-2 ####CALE RUTLEDGEER L ([id number])[facility] ([facility])[address] [place] [address] Platelets (Bld) [#/Vol] 294 x10*3/uL Normal 150-450 [facility] Comment on above: Performed By: #### 5 8410-2 ####CALE TOSCANOMOTZER L ([id number])[facility] ([facility])[address] [place] [address] RBC (Bld) [#/Vol] 4.39 x10*6/uL Normal 4.00-5.20 [facility] Comment on above: Performed By: #### 5 8410-2 ####CALE TOSCANOMOTZER L ([id number])[facility] ([facility])[address] [place] [address] WBC (Bld) [#/Vol] 4.7 x10*3/uL Normal 4.4-11.3 [facility] Comment on above: Performed By: #### 5 8410-2 ####CALE TOSCANOMOTZER L ([id number])[facility] ([facility])[address] [place] [address] CT HEAD WO IV CONTRASTon CT HEAD WO IV CONTRAST Normal [facility] CT Head WO contraston 2024 1. [...] Hilda Lucas 04/22/2025 4:07 PM Dictation workstation: [id number] Interpreted By: Hilda Ramirez and Kaur Arashdeep STUDY: CT HEAD WO IV CONTRAST; 04/22/2025 3:24 pm INDICATION: Signs/Symptoms:hydrocephalu s. COMPARISON: CT head 04/08/2025. CT head 03/29/2025.. ACCESSION NUMBER(S): [id number] ORDERING CLINICIAN: ALFRED SELF TECHNIQUE: Noncontrast axial [...] head 04/08/2025. CT head 03/29/2025.. ACCESSION NUMBER(S): [id number] ORDERING CLINICIAN: ALFRED SELF TECHNIQUE: Noncontrast axial [...] Hilda Lucas 04/22/2025 4:07 PM Dictation workstation: [id number] [facility] Work Phone: Radiology Study observation (narrative) [facility] Work Phone: CT Head WO contrastOrdered B y: Hilda Lucas on 04-22-2025 [facility] Work Phone: Glucose Test strip manual (B ld) [Mass/Vol]on 04-22-2025 Glucose [Mass/Vol] 110 mg/dL High 74 - 99 mg/dL [facility] Interpretation and review of laboratory results Abnormal [facility] Glucose [Mass/Vol] 110 mg/dL High 74-99 [facility] Comment on above: Performed By: #### 2 341-6 ####CALE Roth ([id number])[facility] ([facility])[address] [place] [address] Glucose [Mass/Vol] 112 mg/dL High 74 - 99 mg/dL [facility] Interpretation and review of laboratory results Abnormal [facility] Glucose [Mass/Vol] 112 mg/dL High 74-99 [facility] Comment on above: Performed By: #### 2 341-6 ####CALE Roth ([id number])[facility] ([facility])[address] [place] [address] Glucose [Mass/Vol] 151 mg/dL High 74 - 99 mg/dL [facility] Interpretation and review of laboratory results Abnormal [facility] Glucose [Mass/Vol] 151 mg/dL High 74-99 [facility] Comment on above: Performed By: #### 2 341-6 ####CALE Roth ([id number])[facility] ([facility])[address] [place] [address] Glucose [Mass/Vol] 127 mg/dL High 74 - 99 mg/dL [facility] Interpretation and review of laboratory results Abnormal [facility] Glucose [Mass/Vol] 127 mg/dL High 74-99 [facility] Comment on above: Performed By: #### 2 341-6 ####CALE Roth ([id number])[facility] ([facility])[address] [place] [address] Renal function 2000 panelon 04-22-2025 Albumin BCP dye [Mass/Vol] 3.7 g/dL 3.4 - 5.0 g/dL [facility] Anion gap [Moles/Vol] 15 mmol/L 10 - 20 mmol/L [facility] Calcium [Mass/Vol] 9.6 mg/dL 8.6 - 10. 6 mg/dL [facility] Chloride [Moles/Vol] 94 mmol/L Low 98 - 10 7 mmol/L [facility] CO2 [Moles/Vol] 32 mmol/L 21 - 32 mmol/L [facility] Comment on above: Bicarbonate results may be falsely elevated when Lactate Dehydrogenase (LDH) concentrations exceed 2,000 U/L due to a temporary reagent manufacturing issue. If significantly elevated LDH levels are suspected, interpret bicarbonate results with caution, correlate with the patient s clinical status, and consider confirming CO2 values using a blood gas analyzer. Creatinine [Mass/Vol] 0.41 mg/dL Low 0.50 - 1.05 mg/dL [facility] eGFR - PINF [facility] Comment on above: Calculations of marisol mated GFR are performed using the 2020 CKD-EPI Study Refit equation without the race variable for the IDMS-Traceable creatinine methods. https://jasn.asnjournals.org/content//ASN.8626167 988 Glucose [Mass/Vol] 151 mg/dL High 74 - 99 mg/dL [facility] Interpretation and review of laboratory results Abnormal [facility] Phosphate [Mass/Vol] 4.0 mg/dL 2.5 - 4 .9 mg/dL [facility] Potassium [Moles/Vol] 4.0 mmol/L 3.5 - 5.3 mmol/L [facility] Sodium [Moles/Vol] 137 mmol/L 136 - 145 mmol/L [facility] Urea nitrogen [Mass/Vol] 15 mg/dL 6 - 23 mg/dL [facility] Albumin BCP dye [Mass/Vol] 3.7 g/dL Normal 3.4-5.0 [facility] Comment on above: Performed By: #### 2 4362-6 ####CALE Roth ([id number])[facility] ([facility])[address] [place] [address] Anion gap [Moles/Vol] 15 mmol/L Normal 10-20 [facility] Comment on above: Performed By: #### 2 4362-6 ####CALE Roth ([id number])[facility] ([facility])[address] [place] [address] Calcium [Mass/Vol] 9.6 mg/dL Normal 8.6-10.6 [facility] Comment on above: Performed By: #### 2 4362-6 ####CALE Roth ([id number])[facility] ([facility])[address] [place] [address] Chloride [Moles/Vol] 94 mmol/L Low 98-107 [facility] Comment on above: Performed By: #### 2 4362-6 ####CALE Roth ([id number])[facility] ([facility])[address] [place] [address] CO2 [Moles/Vol] 32 mmol/L Normal 21-[address] [facility] Comment on above: Result Comment: Bica rbonate results may be falsely elevated when Lactate Dehydrogenase (LDH) concentrations exceed 2,000 U/L due to a temporary reagent manufacturing issue. If significantly elevated LDH levels are suspected, interpret bicarbonate results with caution, correlate with the patient's clinical status, and consider confirming CO2 values using a blood gas analyzer. Performed By: #### 2 4362-6 ####CALE Roth ([id number])[facility] ([facility])[address] [place] [address] Creatinine [Mass/Vol] 0.41 mg/dL Low 0.50-1.05 [facility] Comment on above: Performed By: #### 2 4362-6 ####CALE Roth ([id number])[facility] ([facility])[address] [place] [address] Glomerular filtration rate >90 Normal >60 [facility] Comment on above: Result Comment: Calc ulations of estimated GFR are performed using the 2020 CKD-EPI Study Refit equation without the race variable for the IDMS-Traceable creatinine methods.https://jasn.asnjournals.org/content//ASN .3740992418 Performed By: #### 2 4362-6 ####CALE Roth ([id number])[facility] ([facility])[address] [place] [address] Glucose [Mass/Vol] 151 mg/dL High 74-99 [facility] Comment on above: Performed By: #### 2 4362-6 ####CALE Roth ([id number])[facility] ([facility])[address] [place] [address] Phosphate [Mass/Vol] 4.0 mg/dL Normal 2.5-4.9 [facility] Comment on above: Performed By: #### 2 4362-6 ####CALE Roth ([id number])[facility] ([facility])[address] [place] [address] Potassium [Moles/Vol] 4.0 mmol/L Normal 3.5-5.3 [facility] Comment on above: Performed By: #### 2 4362-6 ####CALE Roth ([id number])[facility] ([facility])[address] [place] [address] Sodium [Moles/Vol] 137 mmol/L Normal 136-145 [facility] Comment on above: Performed By: #### 2 4362-6 ####CALE Roth ([id number])[facility] ([facility])[address] [place] [address] Urea nitrogen [Mass/Vol] 15 mg/dL Normal 6-23 [facility] Comment on above: Performed By: #### 2 4362-6 ####CALE Roth ([id number])[facility] ([facility])[address] [place] [address] Bedside Glucoseon 04-21-2025 [facility] GLU 176 mg/dL High 74-106 [facility] Comment on above: Result Comment: BONNIE GEMENT OF PATIENT CARE PER NURSING PROTOCOL Performed By: #### L 100.0100, L500.2500 #### [facility] [address] [place], [address] Blood type and Indirect anti body screen panel (Bld)on 04-21-2025 ABO group Nom (Bld) B [facility] Blood group antibody screen Ql Negative [facility] D Ag Ql (Bld) Positive [facility] ABO group Nom (Bld) B Normal [facility] Comment on above: Performed By: #### 3 4532-2 ####CALE Roth ([id number])[facility] ([facility])[address] [place] [address] Blood group antibody screen Ql Negative Normal [facility] Comment on above: Performed By: #### 3 4532-2 ####CALE Roth ([id number])[facility] ([facility])[address] [place] [address] D Ag Ql (Bld) Positive Normal [facility] Comment on above: Performed By: #### 3 4532-2 ####CALE Roth ([id number])[facility] ([facility])[address] [place] [address] C reactive proteinon 025 CRP [Mass/Vol] 2.15 mg/dL High <1.00 [facility] Comment on above: Performed By: #### 1 988-5 ####CALE Roth ([id number])[facility] ([facility])[address] [place] [address] C-reactive proteinon 025 CRP [Mass/Vol] 2.15 mg/dL High NINF - 1.00 mg/dL [facility] CBC W Auto Differential pane l (Bld)on 04-21-2025 Basophils (Bld) [#/Vol] 0.03 10*3/uL [facility] Basophils/100 WBC (Bld) 0.5 % 0.0 - 2.0 % [facility] Eosinophils (Bld) [#/Vol] 0.03 10*3/uL [facility] Eosinophils/100 WBC (Bld) 0.5 % 0.0 - 6.0 % [facility] Erythrocyte distribution width (RBC) [Ratio] 12.6 % 11.5 - 14.5 % [facility] Hematocrit (Bld) [Volume fraction] 37.8 % 36.0 - 46.0 % [facility] Hemoglobin (Bld) [Mass/Vol] 12.9 g/dL 12.0 - 16.0 g/dL [facility] Immature granulocytes (Bld) [#/Vol] 0.10 10*3/uL [facility] Immature granulocytes/100 WBC (Bld) 1.6 % High 0.0 - 0.9 % [facility] Comment on above: Immature Granulocyte Count (IG) includes promyelocytes, myelocytes and metamyelocytes but does not include bands. Percent differential counts (%) should be interpreted in the context of the absolute cell counts (cells/UL). Interpretation and review of laboratory results Abnormal [facility] Lymphocytes (Bld) [#/Vol] 0.96 10*3/uL Low [facility] Lymphocytes/100 WBC (Bld) 15.4 % 13.0 - 44.0 % [facility] MCH (RBC) [Entitic mass] 28.7 pg 26.0 - 34.0 pg [facility] MCHC (RBC) [Mass/Vol] 34.1 g/dL 32.0 - 36.0 g/dL [facility] MCV (RBC) [Entitic vol] 84 fL 80 - 100 fL [facility] Monocytes (Bld) [#/Vol] 0.54 10*3/uL [facility] Monocytes/100 WBC (Bld) 8.7 % 2.0 - 10.0 % [facility] Neutrophils (Bld) [#/Vol] 4.58 10*3/uL [facility] Comment on above: Percent differential counts (%) should be interpreted in the context of the absolute cell counts (cells/uL). Neutrophils/100 WBC (Bld) 73.3 % 40.0 - 80.0 % [facility] Nucleated RBC/100 WBC (Bld) [Ratio] 0.0 % [facility] Platelets (Bld) [#/Vol] 313 10*3/uL [facility] RBC (Bld) [#/Vol] 4.49 10*6/uL [facility] WBC (Bld) [#/Vol] 6.2 10*3/uL [facility] Basophils (Bld) [#/Vol] 0.03 x10*3/uL Normal 0.00-0.10 [facility] Comment on above: Performed By: #### 5 7021-8 ####CALE Roth ([id number])[facility] ([facility])[address] [place] [address] Basophils/100 WBC (Bld) 0.5 % Normal 0.0-2.0 [facility] Comment on above: Performed By: #### 5 7021-8 ####CALE Roth ([id number])[facility] ([facility])[address] [place] [address] Eosinophils (Bld) [#/Vol] 0.03 x10*3/uL Normal 0.00-0.70 [facility] Comment on above: Performed By: #### 5 7021-8 ####CALE Roth ([id number])[facility] ([facility])[address] [place] [address] Eosinophils/100 WBC (Bld) 0.5 % Normal 0.0-6.0 [facility] Comment on above: Performed By: #### 5 7021-8 ####CALE Roth ([id number])[facility] ([facility])[address] [place] [address] Erythrocyte distribution width (RBC) [Ratio] 12.6 % Normal 11.5-14.5 [facility] Comment on above: Performed By: #### 5 7021-8 ####CALE Roth ([id number])[facility] ([facility])[address] [place] [address] Hematocrit (Bld) [Volume fraction] 37.8 % Normal 36.0-46.0 [facility] Comment on above: Performed By: #### 5 7021-8 ####CALE Roth ([id number])[facility] ([facility])[address] [place] [address] Hemoglobin (Bld) [Mass/Vol] 12.9 g/dL Normal 12.0-16.0 [facility] Comment on above: Performed By: #### 5 7021-8 ####CALE Roth ([id number])[facility] ([facility])[address] [place] [address] Immature granulocytes (Bld) [#/Vol] 0.10 x10*3/uL Normal 0.00-0.70 [facility] Comment on above: Performed By: #### 5 7021-8 ####CALE Roth ([id number])[facility] ([facility])[address] [place] [address] Immature granulocytes/100 WBC (Bld) 1.6 % High 0.0-0.9 [facility] Comment on above: Result Comment: Aleisha ture Granulocyte Count (IG) includes promyelocytes, myelocytes and metamyelocytes but does not include bands. Percent differential counts (%) should be interpreted in the context of the absolute cell counts (cells/UL). Performed By: #### 5 7021-8 ####CALE Roth ([id number])[facility] ([facility])[address] [place] [address] Lymphocytes (Bld) [#/Vol] 0.96 x10*3/uL Low 1.20-4.80 [facility] Comment on above: Performed By: #### 5 7021-8 ####CALE Roth ([id number])[facility] ([facility])[address] [place] [address] Lymphocytes/100 WBC (Bld) 15.4 % Normal 13.0-44.0 [facility] Comment on above: Performed By: #### 5 7021-8 ####CALE Roth ([id number])[facility] ([facility])[address] [place] [address] MCH (RBC) [Entitic mass] 28.7 pg Normal 26.0-34.0 [facility] Comment on above: Performed By: #### 5 7021-8 ####CALE Roth ([id number])[facility] ([facility])[address] [place] [address] MCHC (RBC) [Mass/Vol] 34.1 g/dL Normal 32.0-36.0 [facility] Comment on above: Performed By: #### 5 7021-8 ####CALE Roth ([id number])[facility] ([facility])[address] [place] [address] MCV (RBC) [Entitic vol] 84 fL Normal 80-100 [facility] Comment on above: Performed By: #### 5 7021-8 ####CALE Roth ([id number])[facility] ([facility])[address] [place] [address] Monocytes (Bld) [#/Vol] 0.54 x10*3/uL Normal 0.10-1.00 [facility] Comment on above: Performed By: #### 5 7021-8 ####CALE Roth ([id number])[facility] ([facility])[address]234 [place] [address] Monocytes/100 WBC (Bld) 8.7 % Normal 2.0-10.0 [facility] Comment on above: Performed By: #### 5 7021-8 ####CALE Roth ([id number])[facility] ([facility])[address] [place] [address] Neutrophils (Bld) [#/Vol] 4.58 x10*3/uL Normal 1.20-7.70 [facility] Comment on above: Result Comment: Perc ent differential counts (%) should be interpreted in the context of the absolute cell counts (cells/uL). Performed By: #### 5 7021-8 ####CALE Roth ([id number])[facility] ([facility])[address] [place] [address] Neutrophils/100 WBC (Bld) 73.3 % Normal 40.0-80.0 [facility] Comment on above: Performed By: #### 5 7021-8 ####CALE Roth ([id number])[facility] ([facility])[address]87 [place] [address] Nucleated RBC/100 WBC (Bld) [Ratio] 0.0 /100 WBCs Normal 0.0-0.0 [facility] Comment on above: Performed By: #### 5 7021-8 ####CALE Roth ([id number])[facility] ([facility])[address] [place] [address] Platelets (Bld) [#/Vol] 313 x10*3/uL Normal 150-450 [facility] Comment on above: Performed By: #### 5 7021-8 ####CALE Roth ([id number])[facility] ([facility])[address] [place] [address] RBC (Bld) [#/Vol] 4.49 x10*6/uL Normal 4.00-5.20 [facility] Comment on above: Performed By: #### 5 7021-8 ####CALE Roth ([id number])[facility] ([facility])[address] [place] [address] WBC (Bld) [#/Vol] 6.2 x10*3/uL Normal 4.4-11.3 [facility] Comment on above: Performed By: #### 5 7021-8 ####CALE Roth ([id number])[facility] ([facility])[address] [place] [address] CRP [Mass/Vol]on 04-21-2025 Interpretation and review of laboratory results Abnormal [facility] Choriogonadotropin.beta subu niton 04-21-2025 HCG.beta subunit Qn m[IU]/mL Normal <5 [facility] Comment on above: Order Comment: Total HCG measurement is performed using the Siemens Atellica immunoassay which detects intact HCG and free beta HCG subunit. This test is not indicated for use as a tumor marker. HCG testing is performed using a different test methodology at [facility] than other [facility]. Direct result comparison should only be made within the same method. Performed By: #### 2 1198-7 ####CALE Roth ([id number])[facility] ([facility])[address] [place] [address] Coagulation tissue factor in ducedon 04-21-2025 PT Coag (PPP) [Time] 12.6 s High 9.8-12.4 [facility] Comment on above: Performed By: #### 5 902-2 ####CALE Roth ([id number])[facility] ([facility])[address] [place] [address] Comprehensive metabolic 2000 panelon 04-21-2025 Albumin BCP dye [Mass/Vol] 3.7 g/dL 3.4 - 5.0 g/dL [facility] ALP [Catalytic activity/Vol] 90 U/L 33 - 110 U/L [facility] ALT With P-5'-P [Catalytic activity/Vol] 35 U/L 7 - 45 U/L [facility] Comment on above: Patients treated wit h Sulfasalazine may generate falsely decreased results for ALT. Anion gap [Moles/Vol] 12 mmol/L 10 - 20 mmol/L [facility] AST With P-5'-P [Catalytic activity/Vol] 24 U/L 9 - 39 U/L [facility] Comment on above: MILD HEMOLYSIS DETEC VIPUL. The result may be falsely elevated due to hemolysis or other interferents. Clinical correlation is recommended. Repeat testing may be considered. Bilirubin [Mass/Vol] 0.3 mg/dL 0.0 - 1 .2 mg/dL [facility] Calcium [Mass/Vol] 9.8 mg/dL 8.6 - 10. 6 mg/dL [facility] Chloride [Moles/Vol] 94 mmol/L Low 98 - 10 7 mmol/L [facility] CO2 [Moles/Vol] 34 mmol/L High 21 - 32 mmol/L [facility] Comment on above: Bicarbonate results may be falsely elevated when Lactate Dehydrogenase (LDH) concentrations exceed 2,000 U/L due to a temporary reagent manufacturing issue. If significantly elevated LDH levels are suspected, interpret bicarbonate results with caution, correlate with the patient s clinical status, and consider confirming CO2 values using a blood gas analyzer. Creatinine [Mass/Vol] 0.35 mg/dL Low 0.50 - 1.05 mg/dL [facility] eGFR - PINF [facility] Comment on above: Calculations of marisol mated GFR are performed using the 2020 CKD-EPI Study Refit equation without the race variable for the IDMS-Traceable creatinine methods. https://jasn.asnjournals.org/content//ASN.8015992 988 Glucose [Mass/Vol] 102 mg/dL High 74 - 99 mg/dL [facility] Interpretation and review of laboratory results Abnormal [facility] Potassium [Moles/Vol] 4.3 mmol/L 3.5 - 5.3 mmol/L [facility] Comment on above: MILD HEMOLYSIS DETEC VIPUL. The result may be falsely elevated due to hemolysis or other interferents. Clinical correlation is recommended. Repeat testing may be considered. Protein [Mass/Vol] 7.6 g/dL 6.4 - 8.2 g/dL [facility] Sodium [Moles/Vol] 136 mmol/L 136 - 145 mmol/L [facility] Urea nitrogen [Mass/Vol] 12 mg/dL 6 - 23 mg/dL [facility] Albumin BCP dye [Mass/Vol] 3.7 g/dL Normal 3.4-5.0 [facility] Comment on above: Performed By: #### 2 4323-8 ####CALE Roth ([id number])[facility] ([facility])[id number] [place] [address] ALP [Catalytic activity/Vol] 90 U/L Normal 33-110 [facility] Comment on above: Performed By: #### 2 4323-8 ####CALE Roth ([id number])[facility] ([facility])[id number] [place] [address] ALT With P-5'-P [Catalytic activity/Vol] 35 U/L Normal 7-45 [facility] Comment on above: Result Comment: Rehana ents treated with Sulfasalazine may generate falsely decreased results for ALT. Performed By: #### 2 4323-8 ####CALE CAI L ([id number])[facility] ([facility])[address] [place] [address] Anion gap [Moles/Vol] 12 mmol/L Normal 10-20 [facility] Comment on above: Performed By: #### 2 4323-8 ####CALE Roth ([id number])[facility] ([facility])[address] [place] [address] AST With P-5'-P [Catalytic activity/Vol] 24 U/L Normal 9-39 [facility] Comment on above: Result Comment: MILD HEMOLYSIS DETECTED. The result may be falsely elevated due to hemolysis or other interferents. Clinical correlation is recommended. Repeat testing may be considered. Performed By: #### 2 4323-8 ####CALE Roth ([id number])[facility] ([facility])[address] [place] [address] Bilirubin [Mass/Vol] 0.3 mg/dL Normal 0.0-1.2 [facility] Comment on above: Performed By: #### 2 4323-8 ####CALE Roth ([id number])[facility] ([facility])[address] [place] [address] Calcium [Mass/Vol] 9.8 mg/dL Normal 8.6-10.6 [facility] Comment on above: Performed By: #### 2 4323-8 ####CALE Roth ([id number])[facility] ([facility])[address] [place] [address] Chloride [Moles/Vol] 94 mmol/L Low 98-107 [facility] Comment on above: Performed By: #### 2 4323-8 ####CALE Roth ([id number])[facility] ([facility])[address] [place] [address] CO2 [Moles/Vol] 34 mmol/L High 21-[address] [facility] Comment on above: Result Comment: Bica rbonate results may be falsely elevated when Lactate Dehydrogenase (LDH) concentrations exceed 2,000 U/L due to a temporary reagent manufacturing issue. If significantly elevated LDH levels are suspected, interpret bicarbonate results with caution, correlate with the patient's clinical status, and consider confirming CO2 values using a blood gas analyzer. Performed By: #### 2 4323-8 ####CALE Roth ([id number])[facility] ([facility])[address] [place] [address] Creatinine [Mass/Vol] 0.35 mg/dL Low 0.50-1.05 [facility] Comment on above: Performed By: #### 2 4323-8 ####CALE Roth ([id number])[facility] ([facility])[address] [place] [address] Glomerular filtration rate >90 Normal >60 [facility] Comment on above: Result Comment: Calc ulations of estimated GFR are performed using the 2020 CKD-EPI Study Refit equation without the race variable for the IDMS-Traceable creatinine methods.https://jasn.asnjournals.org/content/early//ASN .2952794547 Performed By: #### 2 4323-8 ####CALE Roth ([id number])[facility] ([facility])[address] [place] [address] Glucose [Mass/Vol] 102 mg/dL High 74-99 [facility] Comment on above: Performed By: #### 2 4323-8 ####CALE Roth ([id number])[facility] ([facility])[address] [place] [address] Potassium [Moles/Vol] 4.3 mmol/L Normal 3.5-5.3 [facility] Comment on above: Result Comment: MILD HEMOLYSIS DETECTED. The result may be falsely elevated due to hemolysis or other interferents. Clinical correlation is recommended. Repeat testing may be considered. Performed By: #### 2 4323-8 ####CALE Roth ([id number])[facility] ([facility])[address] [place] [address] Protein [Mass/Vol] 7.6 g/dL Normal 6.4-8.2 [facility] Comment on above: Performed By: #### 2 4323-8 ####CALE Roth ([id number])[facility] ([facility])[address] [place] [address] Sodium [Moles/Vol] 136 mmol/L Normal 136-145 [facility] Comment on above: Performed By: #### 2 4323-8 ####CALE Roth ([id number])[facility] ([facility])[address] [place] [address] Urea nitrogen [Mass/Vol] 12 mg/dL Normal 6-23 [facility] Comment on above: Performed By: #### 2 4323-8 ####CALE Roth ([id number])[facility] ([facility])[address] [place] [address] ESR Westergren method (Bld) [Velocity]on 04-21-2025 ESR (Bld) [Velocity] 33 mm/h High 0 - 20 mm/h [facility] Interpretation and review of laboratory results Abnormal [facility] ESR (Bld) [Velocity] 33 mm/h High 0-20 [facility] Comment on above: Performed By: #### 4 537-7 ####CALE Roth ([id number])[facility] ([facility])[address] [place] [address] Gas panel (BldV)on Anion gap 4 (BldV) [Moles/Vol] 3.0 mmol/L Low 10.0 - 25.0 mmol/L [facility] Base excess Calc (BldV) [Moles/Vol] 13.1 mmol/L High -2.0 - 3.0 mmol/L [facility] Calcium.ionized (BldV) [Moles/Vol] 1.22 mmol/L 1.10 - 1.33 mmol/L [facility] Chloride (BldV) [Moles/Vol] 96 mmol/L Low 98 - 107 mmol/L [facility] CO2 (BldV) [Partial pressure] 49 mm[Hg] [facility] Glucose [Mass/Vol] 113 mg/dL High 74 - 99 mg/dL [facility] HCO3 (Bld) [Moles/Vol] 38.2 mmol/L High 22.0 - 26.0 mmol/L [facility] Hematocrit Est (Bld) [Volume fraction] 41.0 % 36.0 - 46.0 % [facility] Hemoglobin (Bld) [Mass/Vol] 13.5 g/dL 12.0 - 16.0 g/dL [facility] Interpretation and review of laboratory results Abnormal [facility] Lactate (BldV) [Moles/Vol] 1.2 mmol/L 0.4 - 2.0 mmol/L [facility] Oxygen (BldV) [Partial pressure] 61 mm[Hg] High [facility] Oxygen saturation in Venous blood 92 % High 45 - 75 % [facility] Oxyhemoglobin (BldV) [Mass fraction] 89.4 % High 45.0 - 75.0 % [facility] pH (BldV) 7.50 [pH] High 7.33 - 7.43 pH [facility] Potassium (BldV) [Moles/Vol] 4.5 mmol/L 3.5 - 5.3 mmol/L [facility] Sodium (BldV) [Moles/Vol] 133 mmol/L Low 136 - 145 mmol/L [facility] Anion gap 4 (BldV) [Moles/Vol] 3.0 mmol/L Low 10.0-25.0 [facility] Comment on above: Performed By: #### 2 4339-4 ####CALE Roth ([id number])[facility] ([facility])[address] [place] [address] Base excess Calc (BldV) [Moles/Vol] 13.1 mmol/L High -2.0-3.0 [facility] Comment on above: Performed By: #### 2 4339-4 ####CALE Roth ([id number])[facility] ([facility])[address] [place] [address] Calcium.ionized (BldV) [Moles/Vol] 1.22 mmol/L Normal 1.10-1.33 [facility] Comment on above: Performed By: #### 2 4339-4 ####CALE Roth ([id number])[facility] ([facility])[address] [place] [address] Chloride (BldV) [Moles/Vol] 96 mmol/L Low 98-107 [facility] Comment on above: Performed By: #### 2 4339-4 ####CALE Roth ([id number])[facility] ([facility])[address] [place] [address] CO2 (BldV) [Partial pressure] 49 mm Hg Normal 41-51 [facility] Comment on above: Performed By: #### 2 4339-4 ####CALE Roth ([id number])[facility] ([facility])[address] [place] [address] Glucose [Mass/Vol] 113 mg/dL High 74-99 [facility] Comment on above: Performed By: #### 2 4339-4 ####CALE Roth ([id number])[facility] ([facility])[address] [place] [address] HCO3 (Bld) [Moles/Vol] 38.2 mmol/L High 22.0-26.0 [facility] Comment on above: Performed By: #### 2 4339-4 ####CALE Roth ([id number])[facility] ([facility])[address] [place] [address] Hematocrit Est (Bld) [Volume fraction] 41.0 % Normal 36.0-46.0 [facility] Comment on above: Performed By: #### 2 4339-4 ####CALE Roth ([id number])[facility] ([facility])[address] [place] [address] Hemoglobin (Bld) [Mass/Vol] 13.5 g/dL Normal 12.0-16.0 [facility] Comment on above: Performed By: #### 2 4339-4 ####CALE Roth ([id number])[facility] ([facility])[address] [place] [address] Lactate (BldV) [Moles/Vol] 1.2 mmol/L Normal 0.4-2.0 [facility] Comment on above: Performed By: #### 2 4339-4 ####CALE Roth ([id number])[facility] ([facility])[address] [place] [address] Oxygen (BldV) [Partial pressure] 61 mm Hg High 35-45 [facility] Comment on above: Performed By: #### 2 4339-4 ####CALE Roth ([id number])[facility] ([facility])[address] [place] [address] Oxygen saturation in Venous blood 92 % High 45-75 [facility] Comment on above: Performed By: #### 2 4339-4 ####CALE Roth ([id number])[facility] ([facility])[address] [place] [address] Oxyhemoglobin (BldV) [Mass fraction] 89.4 % High 45.0-75.0 [facility] Comment on above: Performed By: #### 2 4339-4 ####CALE Roth ([id number])[facility] ([facility])[address] [place] [address] pH (BldV) 7.50 [pH] High 7.33-7.43 [facility] Comment on above: Performed By: #### 2 4339-4 ####CALE Roth ([id number])[facility] ([facility])[address] [place] [address] Potassium (BldV) [Moles/Vol] 4.5 mmol/L Normal 3.5-5.3 [facility] Comment on above: Performed By: #### 2 4339-4 ####CALE Roth ([id number])[facility] ([facility])[address] [place] [address] Sodium (BldV) [Moles/Vol] 133 mmol/L Low 136-145 [facility] Comment on above: Performed By: #### 2 4339-4 ####CALE Roth ([id number])[facility] ([facility])[address] [place] [address] HCG.beta subunit Qnon 2024 Interpretation and review of laboratory results Normal [facility] Total HCG measuremen t is performed using the Siemens AtellFactor.io immunoassay which detects intact HCG and free beta HCG subunit. This test is not indicated for use as a tumor marker. HCG testing is performed using a different test methodology at [facility] than other [facility]. Direct result comparison should only be made within the same method. [facility] Human Chorionic Gonadotropin , Serum Quantitativeon 04-21-2025 HCG.beta subunit Qn NINF [facility] Magnesiumon 04-21-2025 Magnesium [Mass/Vol] 2.43 mg/dL High 1.60 - 2.40 mg/dL [facility] Magnesium [Mass/Vol] 2.43 mg/dL High 1.60-2.40 [facility] Comment on above: Performed By: #### 1 9123-9 ####CALE Roth ([id number])[facility] ([facility])[address] [place] [address] Magnesium [Mass/Vol]on 04-21 Interpretation and review of laboratory results Abnormal [facility] PT Coag (PPP) [Time]on 04-21 INR Coag (PPP) [Relative time] 1.1 {INR} 0.9 - 1.1 [facility] Interpretation and review of laboratory results Abnormal [facility] INR Coag (PPP) [Relative time] 1.1 Normal 0.9-1.1 [facility] Comment on above: Performed By: #### 5 902-2 ####CALE Roth ([id number])[facility] ([facility])[address] [place] [address] Protime-INRon 04-21-2025 PT Coag (PPP) [Time] 12.6 s High [facility] Bedside Glucoseon 04-20-2025 FINGERSTICK GLU 103 mg/dL Normal 74-106 [facility] Comment on above: Result Comment: BONNIE GEMENT OF PATIENT CARE PER NURSING PROTOCOL Performed By: #### L 100.0100, L500.2500 #### [facility] [address] [place], [address] FINGERSTICK GLU 153 mg/dL High 74-106 [facility] Comment on above: Result Comment: BONNIE GEMENT OF PATIENT CARE PER NURSING PROTOCOL Performed By: #### L 500.2500, L100.0100 #### [facility] [address] [place], [address] Brain/Head without Contrasto n 04-20-2025 Brain/Head without Contrast [facility] Imaging Services [address] [place] [address] Brain/Head without Contrast MR#: [id number] Acct: [id number] Name: KIMANI COHEN Rep #: [id number] : 2000 F 24 From: Ayush Burger MD PCP: Dr. Yessenia Dixon MD Status: REG CLI Study: Brain/Head without Contrast Date of Exam: 03/25 02/15 Exam# [id number] Ordering Dr: Benjy Gonzalez MD PROCEDURE: CT [...] posterior fossa as described. 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 Evidence of over-shunting with slit-like ventricular caliber and basilar cistern effacement since prior exam. Neurosurgical consult suggested. No acute intracranial hemorrhage, mass-effect or evidence of acute territorial infarct. Reading Location: [id number] CC: Dr. Yessenia Dixon MD; Dr. 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, [address] Absolute Neut 6.9 X10 3/uL Normal 2.0-7.7 [facility] Comment on above: Performed By: #### L 500.2500, L100.0100 #### [facility] [address] [place], [address] Basophils/100 WBC (Bld) 0.7 % Normal 0-1 [facility] Comment on above: Performed By: #### L 500.2500, L100.0100 #### [facility] [address] [place], [address] Eosinophils/100 WBC (Bld) 0.2 % Normal 0-5 [facility] Comment on above: Performed By: #### L 500.2500, L100.0100 #### [facility] [address] [place], [address] Erythrocyte distribution width (RBC) [Ratio] 12.7 % Normal 11.6-14.6 [facility] Comment on above: Performed By: #### L 500.2500, L100.0100 #### [facility] [address] [place], [address] Hematocrit (Bld) [Volume fraction] 38.5 % Normal 37-47 [facility] Comment on above: Performed By: #### L 500.2500, L100.0100 #### [facility] [address] [place], [address] Hemoglobin (Bld) [Mass/Vol] 12.9 g/dL Normal 12.0-15.0 [facility] Comment on above: Performed By: #### L 500.2500, L100.0100 #### [facility] [address] [place], [address] IG% 1.100 High 0.0-0.9 [facility] Comment on above: Result Comment: IG% - Immature Granulocytes (promyelocytes, myelocytes and metamyelocytes) > 1% indicates that a LEFT SHIFT is Present. Performed By: #### L 500.2500, L100.0100 #### [facility] [address] [place], [address] Lymphocytes/100 WBC (Bld) 7.1 % Low 19-41 [facility] Comment on above: Performed By: #### L 500.2500, L100.0100 #### [facility] [address] [place], [address] MCH (RBC) [Entitic mass] 29.1 pg Normal 27.0-32.0 [facility] Comment on above: Performed By: #### L 500.2500, L100.0100 #### [facility] [address] [place], [address] MCHC (RBC) [Mass/Vol] 33.5 g/dL Normal 32-36 [facility] Comment on above: Performed By: #### L 500.2500, L100.0100 #### [facility] [address] [place], [address] MCV (RBC) [Entitic vol] 86.7 fL Normal 81-99 [facility] Comment on above: Performed By: #### L 500.2500, L100.0100 #### [facility] [address] [place], [address] Monocytes/100 WBC (Bld) 5.7 % Normal 0-10 [facility] Comment on above: Performed By: #### L 500.2500, L100.0100 #### [facility] [address] [place], [address] Neutrophils/100 WBC (Bld) 85.2 % High 47-70 [facility] Comment on above: Performed By: #### L 500.2500, L100.0100 #### [facility] [address] [place], [address] Nucleated RBC (Bld) [#/Vol] 0 10*3/uL Normal 0-5 [facility] Comment on above: Performed By: #### L 500.2500, L100.0100 #### [facility] [address] [place], [address] Platelet mean volume (Bld) [Entitic vol] 10.3 fL Normal 6.2-12.0 [facility] Comment on above: Performed By: #### L 500.2500, L100.0100 #### [facility] [address] [place], [address] Platelets (Bld) [#/Vol] 308 10*3/uL Normal 150-450 [facility] Comment on above: Performed By: #### L 500.2500, L100.0100 #### [facility] [address] [place], [address] RBC (Bld) [#/Vol] 4.44 10*6/uL Normal 4.2-5.4 [facility] Comment on above: Performed By: #### L 500.2500, L100.0100 #### [facility] [address] [place], [id number] RDW SD 39.8 fl Normal 35.1-43.9 [facility] Comment on above: Performed By: #### L 500.2500, L100.0100 #### [facility] [address] [place], [id number] WBC (Bld) [#/Vol] 8.1 10*3/uL Normal 4.4-11.0 [facility] Comment on above: Performed By: #### L 500.2500, L100.0100 #### [facility] [address] [place], [address] Comprehensive Metabolic Prof [facility] 04-20-2025 Albumin [Mass/Vol] 3.8 g/dL Normal 3.5-5.0 [facility] Comment on above: Performed By: #### L 500.2500, L100.0100 #### [facility] [address] [place], [id number] Albumin/Globulin [Mass ratio] 1.0 {ratio} Normal 0.9-2.4 [facility] Comment on above: Performed By: #### L 500.2500, L100.0100 #### [facility] [address] [place], [address] ALK PHOS 103 U/L Normal 35-104 [facility] Comment on above: Performed By: #### L 500.2500, L100.0100 #### [facility] [address] [place], [address] ALT [Catalytic activity/Vol] 38 U/L High <=34 [facility] Comment on above: Performed By: #### L 500.2500, L100.0100 #### [facility] [address] [place], [address] AST [Catalytic activity/Vol] 22 U/L Normal <=31 [facility] Comment on above: Performed By: #### L 500.2500, L100.0100 #### [facility] [address] [place], [address] Bilirubin [Mass/Vol] 0.32 mg/dL Normal 0.00-1.30 [facility] Comment on above: Performed By: #### L 500.2500, L100.0100 #### [facility] [address] [place], [address] BUN/CRE 33.7 RATIO High 10-20 [facility] Comment on above: Performed By: #### L 500.2500, L100.0100 #### [facility] [address] [place], [address] Calcium [Mass/Vol] 9.2 mg/dL Normal 7.6-11.0 [facility] Comment on above: Performed By: #### L 500.2500, L100.0100 #### [facility] [address] [place], [address] Chloride [Moles/Vol] 96 mmol/L Low 98-108 [facility] Comment on above: Performed By: #### L 500.2500, L100.0100 #### [facility] [address] [place], [address] CO2 [Moles/Vol] 29.4 mmol/L Normal 21.0-32.0 [facility] Comment on above: Performed By: #### L 500.2500, L100.0100 #### [facility] [address] [place], [address] Creatinine [Mass/Vol] 0.33 mg/dL Low 0.70-1.20 [facility] Comment on above: Performed By: #### L 500.2500, L100.0100 #### [facility] [address] [place], [address] ECRCL 170.42 ml/min Normal 50-250 [facility] Comment on above: Performed By: #### L 500.2500, L100.0100 #### [facility] [address] [place], [address] GAP 11 Normal 5-15 [facility] Comment on above: Performed By: #### L 500.2500, L100.0100 #### [facility] [address] [place], [id number] GFR/1.73 sq M.predicted among non-blacks MDRD (S/P/Bld) [Vol rate/Area] 151 mL/min/{1.73_m2} Normal >60 [facility] Comment on above: Result Comment: mL/m in/1.73m2 CKD-EPI Creatinine Equation (2020) Performed By: #### L 500.2500, L100.0100 #### [facility] [address] [place], [id number] Globulin (S) [Mass/Vol] 3.7 g/dL Normal 2.2-4.2 [facility] Comment on above: Performed By: #### L 500.2500, L100.0100 #### [facility] [address] [place], [address] Glucose [Mass/Vol] 122 mg/dL High 70-99 [facility] Comment on above: Performed By: #### L 500.2500, L100.0100 #### [facility] [address] [place], [address] Potassium [Moles/Vol] 3.9 mmol/L Normal 3.3-5.1 [facility] Comment on above: Performed By: #### L 500.2500, L100.0100 #### [facility] [address] [place], [id number] Sodium [Moles/Vol] 137 mmol/L Normal 133-145 [facility] Comment on above: Performed By: #### L 500.2500, L100.0100 #### [facility] [address] [place], [id number] T PROT 7.5 g/dL Normal 5.9-8.4 [facility] Comment on above: Performed By: #### L 500.2500, L100.0100 #### [facility] [address] [place], [id number] Urea nitrogen [Mass/Vol] 11 mg/dL Normal 4-19 [facility] Comment on above: Performed By: #### L 500.2500, L100.0100 #### [facility] [address] [place], [address] Urinalysis, Completeon 04-20 AMORPHOUS 2+ Normal [facility] Comment on above: Order Comment: SAUL TER SPECIMEN Performed By: #### L 100.0100, L500.2500 #### [facility] [address] [place], [id number] BACTERIA 2+ /hpf Normal None Seen [facility] Comment on above: Order Comment: SAUL TER SPECIMEN Performed By: #### L 100.0100, L500.2500 #### [facility] [address] [place], [id number] Mucus Ql (Urine sed) RARE Normal [facility] Comment on above: Order Comment: SAUL TER SPECIMEN Performed By: #### L 100.0100, L500.2500 #### [facility] [address] [place], [id number] EPI,SQUAMOUS 0 SEEN Normal 5-10 [facility] Comment on above: Order Comment: SAUL TER SPECIMEN Performed By: #### L 100.0100, L500.2500 #### [facility] [address] [place], [address] RBC 0 SEEN Normal 0-5 [facility] Comment on above: Order Comment: SAUL TER SPECIMEN Performed By: #### L 100.0100, L500.2500 #### [facility] [address] [place], [address] WBC 0 SEEN Normal 0-5 [facility] Comment on above: Order Comment: SAUL TER SPECIMEN Performed By: #### L 100.0100, L500.2500 #### [facility] [address] [place], [address] Basic Metabolic Profile (BMP )on 04-19-2025 BUN/CRE 37.7 RATIO High 10-20 [facility] Comment on above: Performed By: #### L 500.2500, L100.0100 #### [facility] [address] [place], [address] Calcium [Mass/Vol] 9.6 mg/dL Normal 7.6-11.0 [facility] Comment on above: Performed By: #### L 500.2500, L100.0100 #### [facility] [address] [place], [address] Chloride [Moles/Vol] 97 mmol/L Low 98-108 [facility] Comment on above: Performed By: #### L 500.2500, L100.0100 #### [facility] [address] [place], [address] CO2 [Moles/Vol] 29.2 mmol/L Normal 21.0-32.0 [facility] Comment on above: Performed By: #### L 500.2500, L100.0100 #### [facility] [address] [place], [address] Creatinine [Mass/Vol] 0.41 mg/dL Low 0.70-1.20 [facility] Comment on above: Performed By: #### L 500.2500, L100.0100 #### [facility] [address] [place], [address] ECRCL 140.44 ml/min Normal 50-250 [facility] Comment on above: Performed By: #### L 500.2500, L100.0100 #### [facility] [address] [place], [address] GAP 12 Normal 5-15 [facility] Comment on above: Performed By: #### L 500.2500, L100.0100 #### [facility] [address] [place], [address] GFR/1.73 sq M.predicted among non-blacks MDRD (S/P/Bld) [Vol rate/Area] 143 mL/min/{1.73_m2} Normal >60 [facility] Comment on above: Result Comment: mL/m in/1.73m2 CKD-EPI Creatinine Equation (2020) Performed By: #### L 500.2500, L100.0100 #### [facility] [address] [place], [address] Glucose [Mass/Vol] 164 mg/dL High 70-99 [facility] Comment on above: Performed By: #### L 500.2500, L100.0100 #### [facility] [address] [place], [address] Potassium [Moles/Vol] 3.9 mmol/L Normal 3.3-5.1 [facility] Comment on above: Performed By: #### L 500.2500, L100.0100 #### [facility] [address] [place], [address] Sodium [Moles/Vol] 138 mmol/L Normal 133-145 [facility] Comment on above: Performed By: #### L 500.2500, L100.0100 #### [facility] [address] [place] [place], [address] Urea nitrogen [Mass/Vol] 15 mg/dL Normal 4-19 [facility] Comment on above: Performed By: #### L 500.2500, L100.0100 #### [facility] [address] [place], [address] Bedside Glucoseon 04-19-2025 FINGERSTICK GLU 99 mg/dL Normal 74-106 [facility] Comment on above: Result Comment: BONNIE GEMENT OF PATIENT CARE PER NURSING PROTOCOL Performed By: #### L 500.2500, L100.0100 #### [facility] [address] [place], [address] FINGERSTICK GLU 154 mg/dL High 74-106 [facility] Comment on above: Result Comment: BONNIE GEMENT OF PATIENT CARE PER NURSING PROTOCOL Performed By: #### L 501.080 #### [facility] [address] [place], [address] CBC W/Diff, Automatedon - Absolute Lymph 1.17 X10 3/uL Normal 0.83-4.51 [facility] Comment on above: Performed By: #### L 500.2500, L100.0100 #### [facility] [address] [place], [address] Absolute Neut 7.6 X10 3/uL Normal 2.0-7.7 [facility] Comment on above: Performed By: #### L 500.2500, L100.0100 #### [facility] [address] [place], [id number] Basophils/100 WBC (Bld) 0.7 % Normal 0-1 [facility] Comment on above: Performed By: #### L 500.2500, L100.0100 #### [facility] [address] [place], [address] Eosinophils/100 WBC (Bld) 0.9 % Normal 0-5 [facility] Comment on above: Performed By: #### L 500.2500, L100.0100 #### [facility] [address] [place], [address] Erythrocyte distribution width (RBC) [Ratio] 12.9 % Normal 11.6-14.6 [facility] Comment on above: Performed By: #### L 500.2500, L100.0100 #### [facility] [address] [place], [address] Hematocrit (Bld) [Volume fraction] 39.6 % Normal 37-47 [facility] Comment on above: Performed By: #### L 500.2500, L100.0100 #### [facility] [address] [place], [address] Hemoglobin (Bld) [Mass/Vol] 13.0 g/dL Normal 12.0-15.0 [facility] Comment on above: Performed By: #### L 500.2500, L100.0100 #### [facility] [address] [place], [address] IG% 1.400 High 0.0-0.9 [facility] Comment on above: Result Comment: IG% - Immature Granulocytes (promyelocytes, myelocytes and metamyelocytes) > 1% indicates that a LEFT SHIFT is Present. Performed By: #### L 500.2500, L100.0100 #### [facility] [address] [place], [address] Lymphocytes/100 WBC (Bld) 12.1 % Low 19-41 [facility] Comment on above: Performed By: #### L 500.2500, L100.0100 #### [facility] [address] [place], [address] MCH (RBC) [Entitic mass] 28.8 pg Normal 27.0-32.0 [facility] Comment on above: Performed By: #### L 500.2500, L100.0100 #### [facility] [address] [place], [address] MCHC (RBC) [Mass/Vol] 32.8 g/dL Normal 32-36 [facility] Comment on above: Performed By: #### L 500.2500, L100.0100 #### [facility] [address] [place], [address] MCV (RBC) [Entitic vol] 87.8 fL Normal 81-99 [facility] Comment on above: Performed By: #### L 500.2500, L100.0100 #### [facility] [address] [place], [address] Monocytes/100 WBC (Bld) 6.0 % Normal 0-10 [facility] Comment on above: Performed By: #### L 500.2500, L100.0100 #### [facility] [address] [place], [address] Neutrophils/100 WBC (Bld) 78.9 % High 47-70 [facility] Comment on above: Performed By: #### L 500.2500, L100.0100 #### [facility] [address] [place], [address] Nucleated RBC (Bld) [#/Vol] 0 10*3/uL Normal 0-5 [facility] Comment on above: Performed By: #### L 500.2500, L100.0100 #### [facility] [address] [place], [address] Platelet mean volume (Bld) [Entitic vol] 10.3 fL Normal 6.2-12.0 [facility] Comment on above: Performed By: #### L 500.2500, L100.0100 #### [facility] [address] [place], [address] Platelets (Bld) [#/Vol] 409 10*3/uL Normal 150-450 [facility] Comment on above: Performed By: #### L 500.2500, L100.0100 #### [facility] [address] [place], [address] RBC (Bld) [#/Vol] 4.51 10*6/uL Normal 4.2-5.4 [facility] Comment on above: Performed By: #### L 500.2500, L100.0100 #### [facility] [address] [place], [address] RDW SD 41.5 fl Normal 35.1-43.9 [facility] Comment on above: Performed By: #### L 500.2500, L100.0100 #### [facility] [address] [place], [address] WBC (Bld) [#/Vol] 9.7 10*3/uL Normal 4.4-11.0 [facility] Comment on above: Performed By: #### L 500.2500, L100.0100 #### [facility] [address] [place], [address] Absolute Neut Normal 2.0-7.7 [facility] Comment on above: Result Comment: DUPL ICATE- SEE H35 Performed By: #### L 500.2500, L100.0100 #### [facility] [address] [place], [address] HCT Normal 37-47 [facility] Comment on above: Result Comment: DUPL ICATE- SEE H35 Performed By: #### L 500.2500, L100.0100 #### [facility] [address] [place], [address] HGB Normal 12.0-15.0 [facility] Comment on above: Result Comment: DUPL ICATE- SEE H35 Performed By: #### L 500.2500, L100.0100 #### [facility] [address] [place], [address] MCH Normal 27.0-32.0 [facility] Comment on above: Result Comment: DUPL ICATE- SEE H35 Performed By: #### L 500.2500, L100.0100 #### [facility] [address] [place], [address] MCHC Normal 32-36 [facility] Comment on above: Result Comment: DUPL ICATE- SEE H35 Performed By: #### L 500.2500, L100.0100 #### [facility] [address] [place], [address] MCV Normal 81-99 [facility] Comment on above: Result Comment: DUPL ICATE- SEE H35 Performed By: #### L 500.2500, L100.0100 #### [facility] [address] [place], [id number] NEUT% Normal 47-70 [facility] Comment on above: Result Comment: DUPL ICATE- SEE H35 Performed By: #### L 500.2500, L100.0100 #### [facility] [address] [place], [address] PLT Normal 150-450 [facility] Comment on above: Result Comment: DUPL ICATE- SEE H35 Performed By: #### L 500.2500, L100.0100 #### [facility] [address] [place], [address] RBC Normal 4.2-5.4 [facility] Comment on above: Result Comment: DUPL ICATE- SEE H35 Performed By: #### L 500.2500, L100.0100 #### [facility] [address] [place], [address] RDW CV Normal 11.6-14.6 [facility] Comment on above: Result Comment: DUPL ICATE- SEE H35 Performed By: #### L 500.2500, L100.0100 #### [facility] [address] [place], [address] RDW SD Normal 35.1-43.9 [facility] Comment on above: Result Comment: DUPL ICATE- SEE H35 Performed By: #### L 500.2500, L100.0100 #### [facility] [address] [place], [address] WBC Normal 4.4-11.0 [facility] Comment on above: Result Comment: DUPL ICATE- SEE H35 Performed By: #### L 500.2500, L100.0100 #### [facility] [address] [place], [address] Basic Metabolic Profile (BMP )on 04-18-2025 BUN/CRE 42.1 RATIO High 04-12 [facility] Comment on above: Performed By: #### L 500.2500, L100.0100 #### [facility] [address] [place], [address] Calcium [Mass/Vol] 9.4 mg/dL Normal 7.6-11.0 [facility] Comment on above: Performed By: #### L 500.2500, L100.0100 #### [facility] [address] [place], [address] Chloride [Moles/Vol] 96 mmol/L Low 98-108 [facility] Comment on above: Performed By: #### L 500.2500, L100.0100 #### [facility] [address] [place], [address] CO2 [Moles/Vol] 27.6 mmol/L Normal 21.0-32.0 [facility] Comment on above: Performed By: #### L 500.2500, L100.0100 #### [facility] [address] [place], [address] Creatinine [Mass/Vol] 0.39 mg/dL Low 0.70-1.20 [facility] Comment on above: Performed By: #### L 500.2500, L100.0100 #### [facility] [address] [place], [address] ECRCL 147.64 ml/min Normal 50-250 [facility] Comment on above: Performed By: #### L 500.2500, L100.0100 #### [facility] [address] [place], [address] GAP 11 Normal 5-15 [facility] Comment on above: Performed By: #### L 500.2500, L100.0100 #### [facility] [address] [place], [address] GFR/1.73 sq M.predicted among non-blacks MDRD (S/P/Bld) [Vol rate/Area] 144 mL/min/{1.73_m2} Normal >60 [facility] Comment on above: Result Comment: mL/m in/1.73m2 CKD-EPI Creatinine Equation (2020) Performed By: #### L 500.2500, L100.0100 #### [facility] [address] [place], [address] Glucose [Mass/Vol] 162 mg/dL High 70-99 [facility] Comment on above: Performed By: #### L 500.2500, L100.0100 #### [facility] [address] [place], [address] Potassium [Moles/Vol] 3.8 mmol/L Normal 3.3-5.1 [facility] Comment on above: Performed By: #### L 500.2500, L100.0100 #### [facility] [address] [place], [address] Sodium [Moles/Vol] 135 mmol/L Normal 133-145 [facility] Comment on above: Performed By: #### L 500.2500, L100.0100 #### [facility] [address] [place], [address] Urea nitrogen [Mass/Vol] 17 mg/dL Normal 4-19 [facility] Comment on above: Performed By: #### L 500.2500, L100.0100 #### [facility] [address] [place], [address] Bedside Glucoseon 04-18-2025 FINGERSTICK GLU 122 mg/dL High 74-106 [facility] Comment on above: Result Comment: BONNIE GEMENT OF PATIENT CARE PER NURSING PROTOCOL Performed By: #### L 501.080 #### [facility] [address] [place], [address] FINGERSTICK GLU 171 mg/dL High 74-106 [facility] Comment on above: Result Comment: BONNIE GEMENT OF PATIENT CARE PER NURSING PROTOCOL Performed By: #### L 500.2500, L100.0100 #### [facility] [address] [place], [address] CBC W/Diff, Automatedon - Absolute Lymph 1.13 X10 3/uL Normal 0.83-4.51 [facility] Comment on above: Performed By: #### L 500.2500, L100.0100 #### [facility] [address] [place], [address] Absolute Neut 8.2 X10 3/uL High 2.0-7.7 [facility] Comment on above: Performed By: #### L 500.2500, L100.0100 #### [facility] [address] [place], [address] Basophils/100 WBC (Bld) 0.4 % Normal 0-1 [facility] Comment on above: Performed By: #### L 500.2500, L100.0100 #### [facility] [address] [place], [id number] Eosinophils/100 WBC (Bld) 1.0 % Normal 0-5 [facility] Comment on above: Performed By: #### L 500.2500, L100.0100 #### [facility] [address] [place], [address] Erythrocyte distribution width (RBC) [Ratio] 12.9 % Normal 11.6-14.6 [facility] Comment on above: Performed By: #### L 500.2500, L100.0100 #### [facility] [address] [place], [address] Hematocrit (Bld) [Volume fraction] 38.5 % Normal 37-47 [facility] Comment on above: Performed By: #### L 500.2500, L100.0100 #### [facility] [address] [place], [address] Hemoglobin (Bld) [Mass/Vol] 13.1 g/dL Normal 12.0-15.0 [facility] Comment on above: Performed By: #### L 500.2500, L100.0100 #### [facility] [address] [place], [address] IG% 1.500 High 0.0-0.9 [facility] Comment on above: Result Comment: IG% - Immature Granulocytes (promyelocytes, myelocytes and metamyelocytes) > 1% indicates that a LEFT SHIFT is Present. Performed By: #### L 500.2500, L100.0100 #### [facility] [address] [place], [id number] Lymphocytes/100 WBC (Bld) 11.1 % Low 19-41 [facility] Comment on above: Performed By: #### L 500.2500, L100.0100 #### [facility] [address] [place], [address] MCH (RBC) [Entitic mass] 29.6 pg Normal 27.0-32.0 [facility] Comment on above: Performed By: #### L 500.2500, L100.0100 #### [facility] [address] [place], [id number] MCHC (RBC) [Mass/Vol] 34.0 g/dL Normal 32-36 [facility] Comment on above: Performed By: #### L 500.2500, L100.0100 #### [facility] [address] [place], [id number] MCV (RBC) [Entitic vol] 87.1 fL Normal 81-99 [facility] Comment on above: Performed By: #### L 500.2500, L100.0100 #### [facility] [address] [place], [id number] Monocytes/100 WBC (Bld) 6.2 % Normal 0-10 [facility] Comment on above: Performed By: #### L 500.2500, L100.0100 #### [facility] [address] [place], [id number] Neutrophils/100 WBC (Bld) 79.8 % High 47-70 [facility] Comment on above: Performed By: #### L 500.2500, L100.0100 #### [facility] [address] [place], [id number] Nucleated RBC (Bld) [#/Vol] 0 10*3/uL Normal 0-5 [facility] Comment on above: Performed By: #### L 500.2500, L100.0100 #### [facility] [address] [place], [id number] Platelet mean volume (Bld) [Entitic vol] 10.2 fL Normal 6.2-12.0 [facility] Comment on above: Performed By: #### L 500.2500, L100.0100 #### [facility] [address] [place], [address] Platelets (Bld) [#/Vol] 434 10*3/uL Normal 150-450 [facility] Comment on above: Performed By: #### L 500.2500, L100.0100 #### [facility] [address] [place], [address] RBC (Bld) [#/Vol] 4.42 10*6/uL Normal 4.2-5.4 [facility] Comment on above: Performed By: #### L 500.2500, L100.0100 #### [facility] [address] [place], [address] RDW SD 40.6 fl Normal 35.1-43.9 [facility] Comment on above: Performed By: #### L 500.2500, L100.0100 #### [facility] [address] [place], [address] WBC (Bld) [#/Vol] 10.2 10*3/uL Normal 4.4-11.0 [facility] Comment on above: Performed By: #### L 500.2500, L100.0100 #### [facility] [address] [place], [address] Basic Metabolic Profile (BMP )on 04-17-2024 BUN/CRE 42.7 RATIO High 10-20 [facility] Comment on above: Performed By: #### L 501.080 #### [facility] [address] [place], [address] Calcium [Mass/Vol] 9.8 mg/dL Normal 7.6-11.0 [facility] Comment on above: Performed By: #### L 501.080 #### [facility] [address] [place], [address] Chloride [Moles/Vol] 99 mmol/L Normal 98-108 [facility] Comment on above: Performed By: #### L 501.080 #### [facility] [address] [place], [id number] CO2 [Moles/Vol] 27.1 mmol/L Normal 21.0-32.0 [facility] Comment on above: Performed By: #### L 501.080 #### [facility] [address] [place], [address] Creatinine [Mass/Vol] 0.47 mg/dL Low 0.70-1.20 [facility] Comment on above: Performed By: #### L 501.080 #### [facility] [address] [place], [address] ECRCL 122.51 ml/min Normal 50-250 [facility] Comment on above: Performed By: #### L 501.080 #### [facility] [address] [place], [address] GAP 12 Normal 5-15 [facility] Comment on above: Performed By: #### L 501.080 #### [facility] [address] [place], [address] GFR/1.73 sq M.predicted among non-blacks MDRD (S/P/Bld) [Vol rate/Area] 138 mL/min/{1.73_m2} Normal >60 [facility] Comment on above: Result Comment: mL/m in/1.73m2 CKD-EPI Creatinine Equation (2020) Performed By: #### L 501.080 #### [facility] [address] [place], [address] Glucose [Mass/Vol] 200 mg/dL High 70-99 [facility] Comment on above: Performed By: #### L 501.080 #### [facility] [address] [place], [address] Potassium [Moles/Vol] 4.4 mmol/L Normal 3.3-5.1 [facility] Comment on above: Performed By: #### L 501.080 #### [facility] [address] [place], [address] Sodium [Moles/Vol] 137 mmol/L Normal 133-145 [facility] Comment on above: Performed By: #### L 501.080 #### [facility] [address] [place], [address] Urea nitrogen [Mass/Vol] 20 mg/dL High 4-19 [facility] Comment on above: Performed By: #### L 501.080 #### [facility] [address] [place], [address] Bedside Glucoseon 04-17-2024 FINGERSTICK GLU 124 mg/dL High 74-106 [facility] Comment on above: Result Comment: BONNIE GEMENT OF PATIENT CARE PER NURSING PROTOCOL Performed By: #### L 500.2500, L100.0100 #### [facility] [address] [place], [address] FINGERSTICK GLU 159 mg/dL High 74-106 [facility] Comment on above: Result Comment: BONNIE GEMENT OF PATIENT CARE PER NURSING PROTOCOL Performed By: #### L 100.0100, L500.2500 #### [facility] [address] [place], [address] CBC W/Diff, Automatedon 10-2 Absolute Lymph 1.28 X10 3/uL Normal 0.83-4.51 [facility] Comment on above: Performed By: #### L 501.080 #### [facility] [address] [place], [address] Absolute Neut 8.3 X10 3/uL High 2.0-7.7 [facility] Comment on above: Performed By: #### L 501.080 #### [facility] [address] [place], [id number] Basophils/100 WBC (Bld) 0.6 % Normal 0-1 [facility] Comment on above: Performed By: #### L 501.080 #### [facility] [address] [place], [address] Eosinophils/100 WBC (Bld) 0.8 % Normal 0-5 [facility] Comment on above: Performed By: #### L 501.080 #### [facility] [address] [place], [id number] Erythrocyte distribution width (RBC) [Ratio] 13.0 % Normal 11.6-14.6 [facility] Comment on above: Performed By: #### L 501.080 #### [facility] [address] [place], [id number] Hematocrit (Bld) [Volume fraction] 39.6 % Normal 37-47 [facility] Comment on above: Performed By: #### L 501.080 #### [facility] [address] [place], [id number] Hemoglobin (Bld) [Mass/Vol] 13.2 g/dL Normal 12.0-15.0 [facility] Comment on above: Performed By: #### L 501.080 #### [facility] [address] [place], [id number] IG% 2.200 High 0.0-0.9 [facility] Comment on above: Result Comment: IG% - Immature Granulocytes (promyelocytes, myelocytes and metamyelocytes) > 1% indicates that a LEFT SHIFT is Present. Performed By: #### L 501.080 #### [facility] [address] [place], [id number] Lymphocytes/100 WBC (Bld) 12.0 % Low 19-41 [facility] Comment on above: Performed By: #### L 501.080 #### [facility] [address] [place], [id number] MCH (RBC) [Entitic mass] 29.3 pg Normal 27.0-32.0 [facility] Comment on above: Performed By: #### L 501.080 #### [facility] [address] [place], [address] MCHC (RBC) [Mass/Vol] 33.3 g/dL Normal 32-36 [facility] Comment on above: Performed By: #### L 501.080 #### [facility] [address] [place], [address] MCV (RBC) [Entitic vol] 88.0 fL Normal 81-99 [facility] Comment on above: Performed By: #### L 501.080 #### [facility] [address] [place], [id number] Monocytes/100 WBC (Bld) 6.6 % Normal 0-10 [facility] Comment on above: Performed By: #### L 501.080 #### [facility] [address] [place], [id number] Neutrophils/100 WBC (Bld) 77.8 % High 47-70 [facility] Comment on above: Performed By: #### L 501.080 #### [facility] [address] [place], [id number] Nucleated RBC (Bld) [#/Vol] 0 10*3/uL Normal 0-5 [facility] Comment on above: Performed By: #### L 501.080 #### [facility] [address] [place], [address] Platelet mean volume (Bld) [Entitic vol] 10.4 fL Normal 6.2-12.0 [facility] Comment on above: Performed By: #### L 501.080 #### [facility] [address] [place], [address] Platelets (Bld) [#/Vol] 467 10*3/uL High 150-450 [facility] Comment on above: Performed By: #### L 501.080 #### [facility] [address] [place], [address] RBC (Bld) [#/Vol] 4.50 10*6/uL Normal 4.2-5.4 [facility] Comment on above: Performed By: #### L 501.080 #### [facility] [address] [place], [address] RDW SD 41.8 fl Normal 35.1-43.9 [facility] Comment on above: Performed By: #### L 501.080 #### [facility] [address] [place], [address] WBC (Bld) [#/Vol] 10.7 10*3/uL Normal 4.4-11.0 [facility] Comment on above: Performed By: #### L 501.080 #### [facility] [address] [place], [address] Basic Metabolic Profile (BMP )on 04-16-2025 BUN/CRE 37.4 RATIO High 10-20 [facility] Comment on above: Performed By: #### L 500.2500, L100.0100 #### [facility] [address] [place], [address] Calcium [Mass/Vol] 9.4 mg/dL Normal 7.6-11.0 [facility] Comment on above: Performed By: #### L 500.2500, L100.0100 #### [facility] [address] [place], [address] Chloride [Moles/Vol] 99 mmol/L Normal 98-108 [facility] Comment on above: Performed By: #### L 500.2500, L100.0100 #### [facility] [address] [place], [address] CO2 [Moles/Vol] 25.5 mmol/L Normal 21.0-32.0 [facility] Comment on above: Performed By: #### L 500.2500, L100.0100 #### [facility] [address] [place], [address] Creatinine [Mass/Vol] 0.48 mg/dL Low 0.70-1.20 [facility] Comment on above: Performed By: #### L 500.2500, L100.0100 #### [facility] [address] [place], [address] ECRCL 119.96 ml/min Normal 50-250 [facility] Comment on above: Performed By: #### L 500.2500, L100.0100 #### [facility] [address] [place], [address] GAP 13 Normal 5-15 [facility] Comment on above: Performed By: #### L 500.2500, L100.0100 #### [facility] [address] [place], [address] GFR/1.73 sq M.predicted among non-blacks MDRD (S/P/Bld) [Vol rate/Area] 137 mL/min/{1.73_m2} Normal >60 [facility] Comment on above: Result Comment: mL/m in/1.73m2 CKD-EPI Creatinine Equation (2020) Performed By: #### L 500.2500, L100.0100 #### [facility] [address] [place], [address] Glucose [Mass/Vol] 212 mg/dL High 70-99 [facility] Comment on above: Performed By: #### L 500.2500, L100.0100 #### [facility] [address] [place], [address] Potassium [Moles/Vol] 3.9 mmol/L Normal 3.3-5.1 [facility] Comment on above: Performed By: #### L 500.2500, L100.0100 #### [facility] [address] [place], [address] Sodium [Moles/Vol] 137 mmol/L Normal 133-145 [facility] Comment on above: Performed By: #### L 500.2500, L100.0100 #### [facility] [address] [place], [address] Urea nitrogen [Mass/Vol] 18 mg/dL Normal 4-19 [facility] Comment on above: Performed By: #### L 500.2500, L100.0100 #### [facility] [address] [place], [address] Bedside Glucoseon 04-16-2025 FINGERSTICK GLU 173 mg/dL High 74-106 [facility] Comment on above: Result Comment: BONNIE GEMENT OF PATIENT CARE PER NURSING PROTOCOL Performed By: #### L 100.0100, L500.2500 #### [facility] [address] [place], [address] FINGERSTICK GLU 166 mg/dL High 74-106 [facility] Comment on above: Result Comment: BONNIE GEMENT OF PATIENT CARE PER NURSING PROTOCOL Performed By: #### L 501.080 #### [facility] [address] [place], [address] FINGERSTICK GLU 156 mg/dL High 74-106 [facility] Comment on above: Result Comment: BONNIE GEMENT OF PATIENT CARE PER NURSING PROTOCOL Performed By: #### L 500.2500, L100.0100 #### [facility] [address] [place], [address] CBC W/Diff, Automatedon 10-2 -2024 Absolute Lymph 1.40 X10 3/uL Normal 0.83-4.51 [facility] Comment on above: Performed By: #### L 500.2500, L100.0100 #### [facility] [address] [place], [address] Absolute Neut 8.1 X10 3/uL High 2.0-7.7 [facility] Comment on above: Performed By: #### L 500.2500, L100.0100 #### [facility] [address] [place], [address] Basophils/100 WBC (Bld) 0.6 % Normal 0-1 [facility] Comment on above: Performed By: #### L 500.2500, L100.0100 #### [facility] [address] [place], [address] Eosinophils/100 WBC (Bld) 0.8 % Normal 0-5 [facility] Comment on above: Performed By: #### L 500.2500, L100.0100 #### [facility] [address] [place], [address] Erythrocyte distribution width (RBC) [Ratio] 12.9 % Normal 11.6-14.6 [facility] Comment on above: Performed By: #### L 500.2500, L100.0100 #### [facility] [address] [place], [address] Hematocrit (Bld) [Volume fraction] 38.4 % Normal 37-47 [facility] Comment on above: Performed By: #### L 500.2500, L100.0100 #### [facility] [address] [place], [address] Hemoglobin (Bld) [Mass/Vol] 12.8 g/dL Normal 12.0-15.0 [facility] Comment on above: Performed By: #### L 500.2500, L100.0100 #### [facility] [address] [place], [address] IG% 2.200 High 0.0-0.9 [facility] Comment on above: Result Comment: IG% - Immature Granulocytes (promyelocytes, myelocytes and metamyelocytes) > 1% indicates that a LEFT SHIFT is Present. Performed By: #### L 500.2500, L100.0100 #### [facility] [address] [place], [address] Lymphocytes/100 WBC (Bld) 13.2 % Low 19-41 [facility] Comment on above: Performed By: #### L 500.2500, L100.0100 #### [facility] [address] [place], [address] MCH (RBC) [Entitic mass] 29.2 pg Normal 27.0-32.0 [facility] Comment on above: Performed By: #### L 500.2500, L100.0100 #### [facility] [address] [place], [address] MCHC (RBC) [Mass/Vol] 33.3 g/dL Normal 32-36 [facility] Comment on above: Performed By: #### L 500.2500, L100.0100 #### [facility] [address] [place], [address] MCV (RBC) [Entitic vol] 87.5 fL Normal 81-99 [facility] Comment on above: Performed By: #### L 500.2500, L100.0100 #### [facility] [address] [place], [address] Monocytes/100 WBC (Bld) 7.0 % Normal 0-10 [facility] Comment on above: Performed By: #### L 500.2500, L100.0100 #### [facility] [address] [place], [address] Neutrophils/100 WBC (Bld) 76.2 % High 47-70 [facility] Comment on above: Performed By: #### L 500.2500, L100.0100 #### [facility] [address] [place], [address] Nucleated RBC (Bld) [#/Vol] 0 10*3/uL Normal 0-5 [facility] Comment on above: Performed By: #### L 500.2500, L100.0100 #### [facility] [address] [place], [address] Platelet mean volume (Bld) [Entitic vol] 10.2 fL Normal 6.2-12.0 [facility] Comment on above: Performed By: #### L 500.2500, L100.0100 #### [facility] [address] [place], [address] Platelets (Bld) [#/Vol] 493 10*3/uL High 150-450 [facility] Comment on above: Performed By: #### L 500.2500, L100.0100 #### [facility] [address] [place], [address] RBC (Bld) [#/Vol] 4.39 10*6/uL Normal 4.2-5.4 [facility] Comment on above: Performed By: #### L 500.2500, L100.0100 #### [facility] [address] [place], [address] RDW SD 41.1 fl Normal 35.1-43.9 [facility] Comment on above: Performed By: #### L 500.2500, L100.0100 #### [facility] [address] [place], [address] WBC (Bld) [#/Vol] 10.6 10*3/uL Normal 4.4-11.0 [facility] Comment on above: Performed By: #### L 500.2500, L100.0100 #### [facility] [address] [place], [address] Basic Metabolic Profile (BMP )on 04-15-2025 BUN/CRE 34.7 RATIO High 10-20 [facility] Comment on above: Performed By: #### L 500.2500, L100.0100 #### [facility] [address] [place], [address] Calcium [Mass/Vol] 9.5 mg/dL Normal 7.6-11.0 [facility] Comment on above: Performed By: #### L 500.2500, L100.0100 #### [facility] [address] [place], [address] Chloride [Moles/Vol] 99 mmol/L Normal 98-108 [facility] Comment on above: Performed By: #### L 500.2500, L100.0100 #### [facility] [address] [place], [address] CO2 [Moles/Vol] 23.0 mmol/L Normal 21.0-32.0 [facility] Comment on above: Performed By: #### L 500.2500, L100.0100 #### [facility] [address] [place], [address] Creatinine [Mass/Vol] 0.53 mg/dL Low 0.70-1.20 [facility] Comment on above: Performed By: #### L 500.2500, L100.0100 #### [facility] [address] [place], [address] ECRCL 108.64 ml/min Normal 50-250 [facility] Comment on above: Performed By: #### L 500.2500, L100.0100 #### [facility] [address] [place], [address] GAP 14 Normal 5-15 [facility] Comment on above: Performed By: #### L 500.2500, L100.0100 #### [facility] [address] [place], [address] GFR/1.73 sq M.predicted among non-blacks MDRD (S/P/Bld) [Vol rate/Area] 134 mL/min/{1.73_m2} Normal >60 [facility] Comment on above: Result Comment: mL/m in/1.73m2 CKD-EPI Creatinine Equation (2020) Performed By: #### L 500.2500, L100.0100 #### [facility] [address] [place], [address] Glucose [Mass/Vol] 195 mg/dL High 70-99 [facility] Comment on above: Performed By: #### L 500.2500, L100.0100 #### [facility] [address] [place], [address] Potassium [Moles/Vol] 3.8 mmol/L Normal 3.3-5.1 [facility] Comment on above: Performed By: #### L 500.2500, L100.0100 #### [facility] [address] [place], [address] Sodium [Moles/Vol] 136 mmol/L Normal 133-145 [facility] Comment on above: Performed By: #### L 500.2500, L100.0100 #### [facility] [address] [place], [address] Urea nitrogen [Mass/Vol] 18 mg/dL Normal 4-19 [facility] Comment on above: Performed By: #### L 500.2500, L100.0100 #### [facility] [address] [place], [address] Bedside Glucoseon 04-15-2025 FINGERSTICK GLU 147 mg/dL High 74-106 [facility] Comment on above: Result Comment: BONNIE AL OF PATIENT CARE PER NURSING PROTOCOL Performed By: #### L 501.080 #### [facility] [address] [place], [address] CBC W/Diff, Automatedon 10-2 Absolute Lymph 1.17 X10 3/uL Normal 0.83-4.51 [facility] Comment on above: Performed By: #### L 500.2500, L100.0100 #### [facility] [address] [place], [address] Absolute Neut 7.5 X10 3/uL Normal 2.0-7.7 [facility] Comment on above: Performed By: #### L 500.2500, L100.0100 #### [facility] [address] [place], [address] Basophils/100 WBC (Bld) 0.9 % Normal 0-1 [facility] Comment on above: Performed By: #### L 500.2500, L100.0100 #### [facility] [address] [place], [address] Eosinophils/100 WBC (Bld) 1.1 % Normal 0-5 [facility] Comment on above: Performed By: #### L 500.2500, L100.0100 #### [facility] [address] [place], [address] Erythrocyte distribution width (RBC) [Ratio] 13.0 % Normal 11.6-14.6 [facility] Comment on above: Performed By: #### L 500.2500, L100.0100 #### [facility] [address] [place], [address] Hematocrit (Bld) [Volume fraction] 37.3 % Normal 37-47 [facility] Comment on above: Performed By: #### L 500.2500, L100.0100 #### [facility] [address] [place], [address] Hemoglobin (Bld) [Mass/Vol] 12.4 g/dL Normal 12.0-15.0 [facility] Comment on above: Performed By: #### L 500.2500, L100.0100 #### [facility] [address] [place], [address] IG% 3.000 High 0.0-0.9 [facility] Comment on above: Result Comment: IG% - Immature Granulocytes (promyelocytes, myelocytes and metamyelocytes) > 1% indicates that a LEFT SHIFT is Present. Performed By: #### L 500.2500, L100.0100 #### [facility] [address] [place], [address] Lymphocytes/100 WBC (Bld) 11.9 % Low 19-41 [facility] Comment on above: Performed By: #### L 500.2500, L100.0100 #### [facility] [address] [place], [address] MCH (RBC) [Entitic mass] 29.1 pg Normal 27.0-32.0 [facility] Comment on above: Performed By: #### L 500.2500, L100.0100 #### [facility] [address] [place], [address] MCHC (RBC) [Mass/Vol] 33.2 g/dL Normal 32-36 [facility] Comment on above: Performed By: #### L 500.2500, L100.0100 #### [facility] [address] [place], [address] MCV (RBC) [Entitic vol] 87.6 fL Normal 81-99 [facility] Comment on above: Performed By: #### L 500.2500, L100.0100 #### [facility] [address] [place], [address] Monocytes/100 WBC (Bld) 6.7 % Normal 0-10 [facility] Comment on above: Performed By: #### L 500.2500, L100.0100 #### [facility] [address] [place], [address] Neutrophils/100 WBC (Bld) 76.4 % High 47-70 [facility] Comment on above: Performed By: #### L 500.2500, L100.0100 #### [facility] [address] [place], [address] Nucleated RBC (Bld) [#/Vol] 0 10*3/uL Normal 0-5 [facility] Comment on above: Performed By: #### L 500.2500, L100.0100 #### [facility] [address] [place], [id number] Platelet mean volume (Bld) [Entitic vol] 10.3 fL Normal 6.2-12.0 [facility] Comment on above: Performed By: #### L 500.2500, L100.0100 #### [facility] [address] [place], [address] Platelets (Bld) [#/Vol] 476 10*3/uL High 150-450 [facility] Comment on above: Performed By: #### L 500.2500, L100.0100 #### [facility] [address] [place], [address] RBC (Bld) [#/Vol] 4.26 10*6/uL Normal 4.2-5.4 [facility] Comment on above: Performed By: #### L 500.2500, L100.0100 #### [facility] [address] [place], [address] RDW SD 41.0 fl Normal 35.1-43.9 [facility] Comment on above: Performed By: #### L 500.2500, L100.0100 #### [facility] [address] [place], [address] WBC (Bld) [#/Vol] 9.8 10*3/uL Normal 4.4-11.0 [facility] Comment on above: Performed By: #### L 500.2500, L100.0100 #### [facility] [address] [place], [address] CT TRANSFER OF OUTSIDE FILMS on 04-15-2025 CT TRANSFER OF OUTSIDE FILMS Outside images for comparison or treatment purposes, not interpreted by Radiologists. Normal [facility] Study Interpretation of outs galina studyon 04-15-2025 Outside images for comparison or treatment purposes, not interpreted by Radiologists. IMAGING Bedside Glucoseon 04-14-2025 FINGERSTICK GLU 128 mg/dL High 74-106 [facility] Comment on above: Result Comment: BONNIE GEMENT OF PATIENT CARE PER NURSING PROTOCOL Performed By: #### L 501.080 #### [facility] [address] [place], [address] FINGERSTICK GLU 127 mg/dL High 74-106 [facility] Comment on above: Result Comment: BONNIE GEMENT OF PATIENT CARE PER NURSING PROTOCOL Performed By: #### L 501.080 #### [facility] [address] [place], [address] Bedside Glucoseon 04-13-2025 FINGERSTICK GLU 162 mg/dL High 74-106 [facility] Comment on above: Result Comment: BONNIE GEMENT OF PATIENT CARE PER NURSING PROTOCOL Performed By: #### L 501.080 #### [facility] [address] [place], [address] FINGERSTICK GLU 142 mg/dL High 74-106 [facility] Comment on above: Result Comment: BONNIE GEMENT OF PATIENT CARE PER NURSING PROTOCOL Performed By: #### L 501.080 #### [facility] [address] [place], [address] FINGERSTICK GLU 169 mg/dL High 74-106 [facility] Comment on above: Result Comment: BONNIE GEMENT OF PATIENT CARE PER NURSING PROTOCOL Performed By: #### L 500.2500, L100.0100 #### [facility] [address] [place], [address] FINGERSTICK GLU 134 mg/dL High [facility]106 [facility] Comment on above: Result Comment: BONNIE GEMENT OF PATIENT CARE PER NURSING PROTOCOL Performed By: #### L 500.2500, L100.0100 #### [facility] [address] [place], [address] Bedside Glucoseon 04-12-2025 FINGERSTICK GLU 167 mg/dL High [address] [place] [address] Comment on above: Result Comment: BONNIE GEMENT OF PATIENT CARE PER NURSING PROTOCOL Performed By: #### L 500.2500, L100.0100 #### [facility] [address] [place], [address] FINGERSTICK GLU 175 mg/dL High [address] [place] [address] Comment on above: Result Comment: BONNIE GEMENT OF PATIENT CARE PER NURSING PROTOCOL Performed By: #### L 100.0100, L500.2500 #### [facility] [address] [place], [address] FINGERSTICK GLU 141 mg/dL High [address] [place] [address] Comment on above: Result Comment: BONNIE GEMENT OF PATIENT CARE PER NURSING PROTOCOL Performed By: #### L 501.080 #### [facility] [address] [place], [address] Bedside Glucoseon 5 FINGERSTICK GLU 171 mg/dL High [address] [place] [address] Comment on above: Result Comment: BONNIE GEMENT OF PATIENT CARE PER NURSING PROTOCOL Performed By: #### L 501.080 #### [facility] [address] [place], [address] FINGERSTICK GLU 145 mg/dL High -106 [facility] Comment on above: Result Comment: BONNIE GEMENT OF PATIENT CARE PER NURSING PROTOCOL Performed By: #### L 501.080 #### [facility] [address] [place], [address] FINGERSTICK GLU 172 mg/dL High 74-106 [facility] Comment on above: Result Comment: BONNIE GEMENT OF PATIENT CARE PER NURSING PROTOCOL Performed By: #### L 501.080 #### [facility] [address] [place], [address] FINGERSTICK GLU 151 mg/dL High 74-106 [facility] Comment on above: Result Comment: BONNIE GEMENT OF PATIENT CARE PER NURSING PROTOCOL Performed By: #### L 100.0100, L500.2500 #### [facility] [address] [place], [address] Urine Cultureon 04-11-2025 [facility] Klebsiella aerogenes Basco Count >100,000 Klebsiella aerogenes: REACTION Cefepime Islt MOHAN 1 cefTRIAXone Islt MOHAN 32 R Ciprofloxacin Islt MOHAN <=0.06 S Gentamicin Islt MOHAN <=1 S levoFLOXacin Islt MOHAN <=0.12 S Meropenem Islt MOHAN <=0.25 S Nitrofurantoin Islt MOHAN 64 I Pip+Tazo Islt MOHAN >=128 R TMP SMX Islt MOHAN <=20 S Normal [facility] Comment on above: Performed By: #### L 100.0100, L500.2500 #### [facility] [address] [place], [address] Bedside Glucoseon 04-10-2025 FINGERSTICK GLU 153 mg/dL High -106 [facility] Comment on above: Result Comment: BONNIE GEMENT OF PATIENT CARE PER NURSING PROTOCOL Performed By: #### L 501.080 #### [facility] [address] [place], [address] FINGERSTICK GLU 170 mg/dL High 74-106 [facility] Comment on above: Result Comment: BONNIE GEMENT OF PATIENT CARE PER NURSING PROTOCOL Performed By: #### L 100.0100, L500.2500 #### [facility] [address] [place], [address] FINGERSTICK GLU 128 mg/dL High 74-106 [facility] Comment on above: Result Comment: BONNIE GEMENT OF PATIENT CARE PER NURSING PROTOCOL Performed By: #### L 501.080 #### [facility] [address] [place], [address] FINGERSTICK GLU 151 mg/dL High 74-106 [facility] Comment on above: Result Comment: BONNIE GEMENT OF PATIENT CARE PER NURSING PROTOCOL Performed By: #### L 501.080 #### [facility] [address] [place], [address] Basic Metabolic Profile (BMP )on 04-09-2024 BUN/CRE 29.9 RATIO High 10-20 [facility] Comment on above: Performed By: #### L 500.2500, L100.0100 #### [facility] [address] [place], [address] Calcium [Mass/Vol] 9.5 mg/dL Normal 7.6-11.0 [facility] Comment on above: Performed By: #### L 500.2500, L100.0100 #### [facility] [address] [place], [address] Chloride [Moles/Vol] 95 mmol/L Low 98-108 [facility] Comment on above: Performed By: #### L 500.2500, L100.0100 #### [facility] [address] [place], [address] CO2 [Moles/Vol] 25.4 mmol/L Normal 21.0-32.0 [facility] Comment on above: Performed By: #### L 500.2500, L100.0100 #### [facility] [address] [place], [address] Creatinine [Mass/Vol] 0.47 mg/dL Low 0.70-1.20 [facility] Comment on above: Performed By: #### L 500.2500, L100.0100 #### [facility] [address] [place], [address] ECRCL 122.51 ml/min Normal 50-250 [facility] Comment on above: Performed By: #### L 500.2500, L100.0100 #### [facility] [address] [place], [address] GAP 13 Normal 5-15 [facility] Comment on above: Performed By: #### L 500.2500, L100.0100 #### [facility] [address] [place], [place], [address] GFR/1.73 sq M.predicted among non-blacks MDRD (S/P/Bld) [Vol rate/Area] 138 mL/min/{1.73_m2} Normal >60 [facility] Comment on above: Result Comment: mL/m in/1.73m2 CKD-EPI Creatinine Equation (2020) Performed By: #### L 500.2500, L100.0100 #### [facility] [address] [place], [address] Glucose [Mass/Vol] 130 mg/dL High 70-99 [facility] Comment on above: Performed By: #### L 500.2500, L100.0100 #### [facility] [address] [place], [address] Potassium [Moles/Vol] 3.8 mmol/L Normal 3.3-5.1 [facility] Comment on above: Performed By: #### L 500.2500, L100.0100 #### [facility] [address] [place], [address] Sodium [Moles/Vol] 134 mmol/L Normal 133-145 [facility] Comment on above: Performed By: #### L 500.2500, L100.0100 #### [facility] [address] [place], [address] Urea nitrogen [Mass/Vol] 14 mg/dL Normal 4-19 [facility] Comment on above: Performed By: #### L 500.2500, L100.0100 #### [facility] [address] [place], [address] Bedside Glucoseon 04-09-2025 FINGERSTICK GLU 119 mg/dL High 74-106 [facility] Comment on above: Result Comment: BONNIE GEMENT OF PATIENT CARE PER NURSING PROTOCOL Performed By: #### L 100.0100, L500.2500 #### [facility] [address] [place], [address] FINGERSTICK GLU 157 mg/dL High 74-106 [facility] Comment on above: Result Comment: BONNIE GEMENT OF PATIENT CARE PER NURSING PROTOCOL Performed By: #### L 501.080 #### [facility] [address] [place], [address] FINGERSTICK GLU 135 mg/dL High 74-106 [facility] Comment on above: Result Comment: BONNIE GEMENT OF PATIENT CARE PER NURSING PROTOCOL Performed By: #### L 501.080 #### [facility] [address] [place], [address] CBC W/Diff, Automatedon 10- Absolute Lymph 1.46 X10 3/uL Normal 0.83-4.51 [facility] Comment on above: Performed By: #### L 500.2500, L100.0100 #### [facility] [address] [place], [address] Absolute Neut 7.5 X10 3/uL Normal 2.0-7.7 [facility] Comment on above: Performed By: #### L 500.2500, L100.0100 #### [facility] [address] [place], [address] Basophils/100 WBC (Bld) 0.4 % Normal 0-1 [facility] Comment on above: Performed By: #### L 500.2500, L100.0100 #### [facility] [address] [place], [address] Eosinophils/100 WBC (Bld) 0.1 % Normal 0-5 [facility] Comment on above: Performed By: #### L 500.2500, L100.0100 #### [facility] [address] [place], [id number] Erythrocyte distribution width (RBC) [Ratio] 12.8 % Normal 11.6-14.6 [facility] Comment on above: Performed By: #### L 500.2500, L100.0100 #### [facility] [address] [place], [id number] Hematocrit (Bld) [Volume fraction] 33.6 % Low 37-47 [facility] Comment on above: Performed By: #### L 500.2500, L100.0100 #### [facility] [address] [place], [id number] Hemoglobin (Bld) [Mass/Vol] 11.4 g/dL Low 12.0-15.0 [facility] Comment on above: Performed By: #### L 500.2500, L100.0100 #### [facility] [address] [place], [id number] IG% 1.100 High 0.0-0.9 [facility] Comment on above: Result Comment: IG% - Immature Granulocytes (promyelocytes, myelocytes and metamyelocytes) > 1% indicates that a LEFT SHIFT is Present. Performed By: #### L 500.2500, L100.0100 #### [facility] [address] [place], [id number] Lymphocytes/100 WBC (Bld) 14.4 % Low 19-41 [facility] Comment on above: Performed By: #### L 500.2500, L100.0100 #### [facility] [address] [place], [id number] MCH (RBC) [Entitic mass] 29.2 pg Normal 27.0-32.0 [facility] Comment on above: Performed By: #### L 500.2500, L100.0100 #### [facility] [address] [place], [id number] MCHC (RBC) [Mass/Vol] 33.9 g/dL Normal 32-36 [facility] Comment on above: Performed By: #### L 500.2500, L100.0100 #### [facility] [address] [place], [address] MCV (RBC) [Entitic vol] 86.2 fL Normal 81-99 [facility] Comment on above: Performed By: #### L 500.2500, L100.0100 #### [facility] [address] [place], [id number] Monocytes/100 WBC (Bld) 9.8 % Normal 0-10 [facility] Comment on above: Performed By: #### L 500.2500, L100.0100 #### [facility] [address] [place], [id number] Neutrophils/100 WBC (Bld) 74.2 % High 47-70 [facility] Comment on above: Performed By: #### L 500.2500, L100.0100 #### [facility] [address] [place], [id number] Nucleated RBC (Bld) [#/Vol] 0 10*3/uL Normal 0-5 [facility] Comment on above: Performed By: #### L 500.2500, L100.0100 #### [facility] [address] [place], [id number] Platelet mean volume (Bld) [Entitic vol] 10.9 fL Normal 6.2-12.0 [facility] Comment on above: Performed By: #### L 500.2500, L100.0100 #### [facility] [address] [place], [id number] Platelets (Bld) [#/Vol] 325 10*3/uL Normal 150-450 [facility] Comment on above: Performed By: #### L 500.2500, L100.0100 #### [facility] [address] [place], [id number] RBC (Bld) [#/Vol] 3.90 10*6/uL Low 4.2-5.4 [facility] Comment on above: Performed By: #### L 500.2500, L100.0100 #### [facility] [address] [place], [id number] RDW SD 39.9 fl Normal 35.1-43.9 [facility] Comment on above: Performed By: #### L 500.2500, L100.0100 #### [facility] [address] [place], [id number] WBC (Bld) [#/Vol] 10.1 10*3/uL Normal 4.4-11.0 [facility] Comment on above: Performed By: #### L 500.2500, L100.0100 #### [facility] [address] [place], [id number] COVID 19 AG RAPID (FABIO Brandon)on 04-09-2025 [...] RAPID METHOD BinaxNow COVID19 Ag Card Normal [facility] Comment on above: Performed By: #### L 501.080 #### [facility] [address] [place], [place], [address] Chest PA and Lateralon 04-09 Chest PA and Lateral [facility] Imaging Services [address] [place], [place] [address] Chest PA and Lateral MR#: [id number] Acct: [id number] Name: KIMANI COHEN Rep #: [id number] : 2000 F 24 From: Serge Wheeler MD PCP: Dr. Yessenia Dixon MD Status: ADM IN Study: Chest PA and Lateral Date of Exam: 04/09/25 Exam# [id number] Ordering Dr: Benjy Gonzalez MD PROCEDURE: CHEST PA AND LATERAL 04/09/2025 REASON FOR EXAM: ASPIRATION PNEUMONIA TECHNIQUE: Procedure Code: RADCXR Modality: DX Procedure: CHEST PA AND LATERAL COMPARISON: None FINDINGS: Hardware: Right [employer] shunt is seen along the right neck, right chest and upper abdomen. Heart: The heart size is normal. Mediastinum: The mediastinal contour is unremarkable. Lungs: The lungs are clear. Bones: The bones are unremarkable. RAD/Chest PA and Lateral IMPRESSION: No acute abnormality Reading Location: [id number] CC: Dr. Yessenia Dixon MD; Dr. Benjy Gonzalez MD Drying Machine Operator: Signed Normal [facility] RESPIRATORY PANEL MOLECULARo n 04-09-2025 RP PANEL ADENOVIRUS Not Detected INFLUENZA A Not Detected INFLUENZA A (SUBTYPE H1) Not Detected INFLUENZA A (SUBTYPE H3) Not Detected INFLUENZA B Not Detected HUMAN METAPHNEUMO Not Detected PARAINFLUENZA 1 Not Detected PARAINFLUENZA 2 Not Detected PARAINFLUENZA 3 Not Detected PARAINFLUENZA 4 Not Detected RHINOVIRUS Not Detected RSV A Not Detected RSV B Not Detected Normal [facility] Comment on above: Performed By: #### L 501.080 #### [facility] [address] [place], [address] Urinalysis, Completeon 04-09 AMORPHOUS 1+ PHOS Normal [facility] Comment on above: Order Comment: BLADD ER TAP Performed By: #### L 100.0100, L500.2500 #### [facility] [address] [place], [address] BACTERIA 3+ /hpf Normal None Seen [facility] Comment on above: Order Comment: BLADD ER TAP Performed By: #### L 100.0100, L500.2500 #### [facility] [address] [place], [address] WBC 0-5 SEEN Normal 0-5 [facility] Comment on above: Order Comment: BLADD ER TAP Performed By: #### L 100.0100, L500.2500 #### [facility] [address] [place], [address] EPI,SQUAMOUS 0 SEEN Normal 5-10 [facility] Comment on above: Order Comment: BLADD ER TAP Performed By: #### L 100.0100, L500.2500 #### [facility] [address] [place], [address] Mucus Ql (Urine sed) 0 SEEN Normal [facility] Comment on above: Order Comment: BLADD ER TAP Performed By: #### L 100.0100, L500.2500 #### [facility] [address] [place], [id number] RBC 0 SEEN Normal 0-5 [facility] Comment on above: Order Comment: BLADD ER TAP Performed By: #### L 100.0100, L500.2500 #### [facility] [address] [place], [id number] Abdomen Single View (Portabl e)on 04-08-2025 Abdomen Single View (Portable) [facility] Imaging Services [address] [place] [id number] Abdomen Single View (Portable) MR#: [id number] Acct: [id number] Name: KIMANI COHEN Rep #: [id number] : 2000 F 24 From: Ayush Burger MD PCP: Dr. Yessenia Dixon MD Status: ADM IN Study: Abdomen Single View (Portable) Date of Exam: 1 Exam# [id number] Ordering Dr: Benjy Gonzalez MD PROCEDURE: ABDOMEN [...] pattern. Mild-moderate colonic stool burden. Reading Location: [id number] CC: Dr. Yessenia Dixon MD; Dr. Benjy Gonzalez MD Drying Machine Operator: Signed Normal [facility] Basic Metabolic Profile (BMP )on 04-08-2025 BUN/CRE 32.9 RATIO High 10-20 [facility] Comment on above: Performed By: #### L 500.2500, L100.0100 #### [facility] [address] [place], [address] Calcium [Mass/Vol] 9.5 mg/dL Normal 7.6-11.0 [facility] Comment on above: Performed By: #### L 500.2500, L100.0100 #### [facility] [address] [place], [address] Chloride [Moles/Vol] 98 mmol/L Normal 98-108 [facility] Comment on above: Performed By: #### L 500.2500, L100.0100 #### [facility] [address] [place], [address] CO2 [Moles/Vol] 25.4 mmol/L Normal 21.0-32.0 [facility] Comment on above: Performed By: #### L 500.2500, L100.0100 #### [facility] [address] [place], [address] Creatinine [Mass/Vol] 0.44 mg/dL Low 0.70-1.20 [facility] Comment on above: Performed By: #### L 500.2500, L100.0100 #### [facility] [address] [place], [address] ECRCL 130.86 ml/min Normal 50-250 [facility] Comment on above: Performed By: #### L 500.2500, L100.0100 #### [facility] [address] [place], [address] GAP 14 Normal 5-15 [facility] Comment on above: Performed By: #### L 500.2500, L100.0100 #### [facility] [address] [place], [address] GFR/1.73 sq M.predicted among non-blacks MDRD (S/P/Bld) [Vol rate/Area] 141 mL/min/{1.73_m2} Normal >60 [facility] Comment on above: Result Comment: mL/m in/1.73m2 CKD-EPI Creatinine Equation (2020) Performed By: #### L 500.2500, L100.0100 #### [facility] [address] [place], [address] Glucose [Mass/Vol] 124 mg/dL High 70-99 [facility] Comment on above: Performed By: #### L 500.2500, L100.0100 #### [facility] [address] [place], [address] Potassium [Moles/Vol] 4.0 mmol/L Normal 3.3-5.1 [facility] Comment on above: Performed By: #### L 500.2500, L100.0100 #### [facility] [address] [place], [address] Sodium [Moles/Vol] 137 mmol/L Normal 133-145 [facility] Comment on above: Performed By: #### L 500.2500, L100.0100 #### [facility] [address] [place], [address] Urea nitrogen [Mass/Vol] 14 mg/dL Normal 4-19 [facility] Comment on above: Performed By: #### L 500.2500, L100.0100 #### [facility] [address] [place], [address] Bedside Glucoseon 04-08-2025 FINGERSTICK GLU 155 mg/dL High 74-106 [facility] Comment on above: Result Comment: BONNIE GEMENT OF PATIENT CARE PER NURSING PROTOCOL Performed By: #### L 500.2500, L100.0100 #### [facility] [address] [place], [address] FINGERSTICK GLU 148 mg/dL High 74-106 [facility] Comment on above: Result Comment: BONNIE GEMENT OF PATIENT CARE PER NURSING PROTOCOL Performed By: #### L 500.2500, L100.0100 #### [facility] [address] [place], [address] FINGERSTICK GLU 128 mg/dL High 74-106 [facility] Comment on above: Result Comment: BONNIE AL OF PATIENT CARE PER NURSING PROTOCOL Performed By: #### L 501.080 #### [facility] [address] [place], [address] Brain/Head without Contrasto n 04-08-2025 Brain/Head without Contrast [facility] Imaging Services [address] [place] [address] Brain/Head without Contrast MR#: [id number] Acct: [id number] Name: KIMANI COHEN Rep #: [id number] : 2000 F 24 From: Jhonatan shelton MD PCP: Dr. Yessenia Dixon MD Status: REG CLI Study: Brain/Head without Contrast Date of Exam: 03/24 12/16 Exam# [id number] Ordering Dr: Benjy Gonzalez MD PROCEDURE: BRAIN/HEAD [...] mass effect at this time. Reading Location: [place] [address] CC: Dr. Yessenia Dixon MD; Dr. Benjy Gonzalez MD Drying Machine Operator: Signed Normal [facility] CBC W/Diff, Automatedon 03-24 Absolute Lymph 1.24 X10 3/uL Normal 0.83-4.51 [facility] Comment on above: Performed By: #### L 500.2500, L100.0100 #### [facility] [address] [place], [address] Absolute Neut 9.2 X10 3/uL High 2.0-7.7 [facility] Comment on above: Performed By: #### L 500.2500, L100.0100 #### [facility] [address] [place], [address] Basophils/100 WBC (Bld) 0.5 % Normal 0-1 [facility] Comment on above: Performed By: #### L 500.2500, L100.0100 #### [facility] [address] [place], [address] Eosinophils/100 WBC (Bld) 0.3 % Normal 0-5 [facility] Comment on above: Performed By: #### L 500.2500, L100.0100 #### [facility] [address] [place], [address] Erythrocyte distribution width (RBC) [Ratio] 13.0 % Normal 11.6-14.6 [facility] Comment on above: Performed By: #### L 500.2500, L100.0100 #### [facility] [address] [place], [address] Hematocrit (Bld) [Volume fraction] 34.6 % Low 37-47 [facility] Comment on above: Performed By: #### L 500.2500, L100.0100 #### [facility] [address] [place], [address] Hemoglobin (Bld) [Mass/Vol] 11.7 g/dL Low 12.0-15.0 [facility] Comment on above: Performed By: #### L 500.2500, L100.0100 #### [facility] [address] [place], [address] IG% 0.800 Normal 0.0-0.9 [facility] Comment on above: Result Comment: IG% - Immature Granulocytes (promyelocytes, myelocytes and metamyelocytes) > 1% indicates that a LEFT SHIFT is Present. Performed By: #### L 500.2500, L100.0100 #### [facility] [address] [facility] [place], [address] Lymphocytes/100 WBC (Bld) 10.8 % Low 19-41 [facility] Comment on above: Performed By: #### L 500.2500, L100.0100 #### [facility] [address] [facility] [place], [address] MCH (RBC) [Entitic mass] 29.8 pg Normal 27.0-32.0 [facility] Comment on above: Performed By: #### L 500.2500, L100.0100 #### [facility] [address] [place], [address] MCHC (RBC) [Mass/Vol] 33.8 g/dL Normal 32-36 [facility] Comment on above: Performed By: #### L 500.2500, L100.0100 #### [facility] [address] [place], [address] MCV (RBC) [Entitic vol] 88.0 fL Normal 81-99 [facility] Comment on above: Performed By: #### L 500.2500, L100.0100 #### [facility] [address] [place], [address] Monocytes/100 WBC (Bld) 6.8 % Normal 0-10 [facility] Comment on above: Performed By: #### L 500.2500, L100.0100 #### [facility] [address] [place], [address] Neutrophils/100 WBC (Bld) 80.8 % High 47-70 [facility] Comment on above: Performed By: #### L 500.2500, L100.0100 #### [facility] [address] [place], [address] Nucleated RBC (Bld) [#/Vol] 0 10*3/uL Normal 0-5 [facility] Comment on above: Performed By: #### L 500.2500, L100.0100 #### [facility] [address] [place], [address] Platelet mean volume (Bld) [Entitic vol] 11.3 fL Normal 6.2-12.0 [facility] Comment on above: Performed By: #### L 500.2500, L100.0100 #### [facility] [address] [place], [address] Platelets (Bld) [#/Vol] 267 10*3/uL Normal 150-450 [facility] Comment on above: Performed By: #### L 500.2500, L100.0100 #### [facility] [address] [place], [address] RBC (Bld) [#/Vol] 3.93 10*6/uL Low 4.2-5.4 [facility] Comment on above: Performed By: #### L 500.2500, L100.0100 #### [facility] [address] [place], [address] RDW SD 42.3 fl Normal 35.1-43.9 [facility] Comment on above: Performed By: #### L 500.2500, L100.0100 #### [facility] [address] [place], [address] WBC (Bld) [#/Vol] 11.4 10*3/uL High 4.4-11.0 [facility] Comment on above: Performed By: #### L 500.2500, L100.0100 #### [facility] [address] [place], [address] Bedside Glucoseon 04-07-2025 FINGERSTICK GLU 139 mg/dL High 74-106 [facility] Comment on above: Result Comment: BONNIE GEMENT OF PATIENT CARE PER NURSING PROTOCOL Performed By: #### L 501.080 #### [facility] [address] [place], [address] FINGERSTICK GLU 104 mg/dL Normal 74-106 [facility] Comment on above: Result Comment: BONNIE GEMENT OF PATIENT CARE PER NURSING PROTOCOL Performed By: #### L 500.2500, L100.0100 #### [facility] [address] [place], [address] CBC + DIFFon 04-02-2025 Baso # 0.03 x10EE3/UL Normal 0.00 - 0.10 [facility] Comment on above: Performed By: #### 2 35198 #### [facility],[address] [place] [address] Basophils/100 WBC (Bld) 0.5 % Normal 0.0 - 2.0 [facility] Comment on above: Performed By: #### 2 66921 #### [facility],[address] [place] [address] CBC + DIFF Normal [facility] Comment on above: Result Comment: CBC- COMPLETE BLOOD COUNT Performed By: #### 2 70323 #### [facility],[address] [place] [address] EO # 0.52 x10EE3/UL High 0.00 - 0.50 [facility] Comment on above: Performed By: #### 2 34423 #### [facility],[address] [place] [address] Eosinophils/100 WBC (Bld) 10.0 % High 0.0 - 7.0 [facility] Comment on above: Performed By: #### 2 [address]894 #### [place] [address] Erythrocyte distribution width (RBC) [Ratio] 13.9 % Normal 12.0 - 15.6 [facility] Comment on above: Performed By: #### 2 28882 #### [place] [address] Hematocrit (Bld) [Volume fraction] 33.3 % Low 34.0 - 46.0 [facility] Comment on above: Performed By: #### 2 44531 #### [place] [address] Hemoglobin (Bld) [Mass/Vol] 11.6 g/dL Low 12.0 - 16.0 [facility] Comment on above: Result Comment: VERI FIED BY REPEAT ANALYSISI Performed By: #### 2 [address]3512 #### [place] [id number] Lymph # 1.24 x10EE3/UL Normal 0.80 - 2.80 [facility] Comment on above: Performed By: #### 2 91973 #### [place] [id number] Lymphocytes/100 WBC (Bld) 23.8 % Normal 20.0 - 45.0 [facility] Comment on above: Performed By: #### 2 16293 #### [place] [address] MANUAL DIFF N/A Normal [facility] Comment on above: Performed By: #### 2 75836 #### [facility],[address] [place] [address] MCH (RBC) [Entitic mass] 30 pg Normal 27 - 33 [facility] Comment on above: Performed By: #### 2 34750 #### [facility],[address] [place] [address] MCHC 35 X10 3 Normal 32 - 36 [facility] Comment on above: Performed By: #### 2 37605 #### [facility],[address] [place], [place] [address] MCV (RBC) [Entitic vol] 87 fL Normal 80 - 99 [facility] Comment on above: Performed By: #### 2 71838 #### [facility],[address] [place] [address] Aguada # 0.43 x10EE3/UL Normal 0.20 - 1.00 [facility] Comment on above: Performed By: #### 2 19869 #### [facility],[address] [place] [address] MONOS % 8.3 % Normal 0.0 - 10.0 [facility] Comment on above: Performed By: #### 2 46771 #### [facility],[address] [place], [place] [address] Morphology Ibrahima (Bld) [Interp] N/A Normal [facility] Comment on above: Performed By: #### 2 21457 #### [facility],[address] [place] [address] Neut # 2.99 x10EE3/UL Normal 1.50 - 7.10 [facility] Comment on above: Performed By: #### 2 43356 #### [facility],[address] [place], [place] [address] Neutrophils/100 WBC (Bld) 57.4 % Normal 46.0 - 76.0 [facility] Comment on above: Performed By: #### 2 83959 #### [facility],[address] [place], [place] [address] PLATELET 278 x10EE3/UL Normal 150 - 450 [facility] Comment on above: Performed By: #### 2 54404 #### [facility],[address] [place] [address] Platelet mean volume (Bld) [Entitic vol] 9.4 fL Normal 6.6 - 10.5 [facility] Comment on above: Result Comment: AUTO MATED DIFFERENTIAL Performed By: #### 2 96541 #### [facility],[address] [place] [address] RBC 3.82 x 10EE6/UL Low 4.10 - 5.30 [facility] Comment on above: Performed By: #### 2 57302 #### [facility],[address] [place] [address] WBC 5.2 x 10EE3/UL Normal 4.5 - 10.8 [facility] Comment on above: Performed By: #### 2 03788 #### [facility],[address] [place] [address] CMP with eGFRon 04-02-2025 AGE 24 years Normal [facility] Comment on above: Performed By: #### 2 44310 ####[facility],[address] [place] [address] Albumin [Mass/Vol] 3.1 g/dL Low 3.4 - 5.0 [facility] Comment on above: Performed By: #### 2 88948 ####[facility],[address] [place], [place] [address] Albumin/Globulin [Mass ratio] 0.9 {ratio} Normal 0.9 - 1.6 [facility] Comment on above: Performed By: #### 2 32470 ####[facility],[address] [place] [address] ALK PHOS 82 U/L Normal 46 - 116 [facility] Comment on above: Performed By: #### 2 24269 ####[facility],[address] [place] [address] ALT [Catalytic activity/Vol] 67 U/L High 16 - 63 [facility] Comment on above: Performed By: #### 2 54176 ####[facility],[address] [place] [address] Anion gap [Moles/Vol] 11 mmol/L Normal 10 - 20 [facility] Comment on above: Performed By: #### 2 25882 ####[facility],[address] [place] [address] AST [Catalytic activity/Vol] 32 U/L Normal 13 - 39 [facility] Comment on above: Performed By: #### 2 03052 ####[facility],[address] [place] [address] B/C RATIO 27 ratio Normal 0 - 30 [facility] Comment on above: Performed By: #### 2 25168 ####[place] [address] Bilirubin [Mass/Vol] 0.2 mg/dL Normal 0.2 - 1.0 [facility] Comment on above: Performed By: #### 2 73808 ####[facility],[address] [place] [address] Calcium [Mass/Vol] 9.3 mg/dL Normal 8.5 - 10.1 [facility] Comment on above: Performed By: #### 2 06703 ####[facility],[address] [place] [address] Chloride [Moles/Vol] 101 mmol/L Normal 98 - 107 [facility] Comment on above: Performed By: #### 2 71020 ####[facility],[address] [place] [address] CMP with eGFR Normal [facility] Comment on above: Result Comment: COMP REHENSIVE METABOLIC PANEL Performed By: #### 2 75061 ####[place] [address] CO2 [Moles/Vol] 33.0 mmol/L High 21.0 - 32.0 [facility] Comment on above: Performed By: #### 2 27511 ####[place] [address] Creatinine [Mass/Vol] 0.41 mg/dL Low 0.55 - 1.02 [facility] Comment on above: Performed By: #### 2 63741 ####[facility],[address] [place] [address] GFR/1.73 sq M.predicted among non-blacks MDRD (S/P/Bld) [Vol rate/Area] mL/min/{1.73_m2} Normal 60 - 999 [facility] Comment on above: Performed By: #### 2 74432 ####[place] [address] Result Comment: ACCO RDING TO THE NATIONAL KIDNEY DISEASE EDUCATION PROGRAM(NKDE), A NORMAL eGFR IS A VALUE GREATER THAN OR EQUAL TO 60 ML/MIN/1.73 SQ METERS. CHRONIC KIDNEY DISEASE: <60mL/MIN/1.73 SQ METERS KIDNEY FAILURE: <15mL/MIN/1.73 SQ METERS THIS TEST SHOULD ONLY BE USED FOR PATIENTS 18 YEARS OF AGE AND OLDER. Globulin (S) [Mass/Vol] 3.6 g/dL Normal 1.5 - 3.8 [facility] Comment on above: Performed By: #### 2 69983 ####[place] [address] Glucose [Mass/Vol] 123 mg/dL High 74 - 106 [facility] Comment on above: Performed By: #### 2 80133 ####[place] [id number] Potassium [Moles/Vol] 3.9 mmol/L Normal 3.5 - 5.1 [facility] Comment on above: Performed By: #### 2 10997 ####[facility],[address] [place] [address] Protein [Mass/Vol] 6.7 g/dL Normal 6.4 - 8.2 [facility] Comment on above: Performed By: #### 2 02809 ####[facility],[address] [place] [address]1668 Sodium [Moles/Vol] 141 mmol/L Normal 136 - 145 [facility] Comment on above: Performed By: #### 2 56631 ####[facility],[address] [place], [place] [address] Urea nitrogen [Mass/Vol] 11 mg/dL Normal 7 - 18 [facility] Comment on above: Performed By: #### 2 88648 ####[facility],[address] [place] [address] HEMOGLOBIN A1C (POM)on 04-02 Glucose [Mass/Vol] 91.1 mg/dL High 0.0 - 0.0 [facility] Comment on above: Result Comment: BLDo HEMOGLOBIN A1C REFERENCE RANGESBLDo Suggested Diagnosis HbA1c(%) HbA1C (mmol/mol Diabetic >/=6.5 >/=48 Prediabetes 5.7 - 6.4 39 - 47 Normal <5.7 <39 Performed By: #### 2 39462 #### [facility],[address] [place] [address] 79754 HbA1c (Bld) [Mass fraction] 4.8 % Normal 0.0 - 6.5 [facility] Comment on above: Performed By: #### 2 59334 #### [facility],[address] [place] [address] 41714 LIPID PROFILEon 04-02-2025 Cholesterol [Mass/Vol] 169 mg/dL Normal 0 - 240 [facility] Comment on above: Performed By: #### 2 31917 #### [facility],[address] [place] [address]14 Cholesterol in HDL [Mass/Vol] 48 mg/dL Normal 40 - 60 [facility] Comment on above: Performed By: #### 2 64509 #### [facility],[address] [place] [address] 73946 Cholesterol in LDL [Mass/Vol] 105 mg/dL Normal 0 - 129 [facility] Comment on above: Performed By: #### 2 33387 #### [facility],[address] [place] [address] 63334 Cholesterol.total/Ch olesterol in HDL [Mass ratio] 3.5 {ratio} Normal 0.0 - 5.0 [facility] Comment on above: Performed By: #### 2 80720 #### [facility],[address] [place] [address] 31793 Lipid 1996 panel Normal [facility] Comment on above: Result Comment: LIPI D PROFILE Performed By: #### 2 64915 #### [facility],[address] [place] [address] Triglyceride [Mass/Vol] 81 mg/dL Normal 0 - 150 [facility] Comment on above: Performed By: #### 2 83096 #### [facility],[address] [place] [address] 33957 CBC W Auto Differential pane l (Bld)on 03-31-2025 Basophils (Bld) [#/Vol] 0.06 x10*3/uL Normal 0.00-0.10 [facility] Comment on above: Performed By: #### 5 7021-8 ####CALE Roth ([id number])[facility] ([facility])[address] [place] [address]5845 Basophils/100 WBC (Bld) 0.9 % Normal 0.0-2.0 [facility] Comment on above: Performed By: #### 5 7021-8 ####CALE Roth ([id number])[facility] ([facility])[address] [place] [address] Eosinophils (Bld) [#/Vol] 0.42 x10*3/uL Normal 0.00-0.70 [facility] Comment on above: Performed By: #### 5 7021-8 ####CALE Roth ([id number])[facility] ([facility])[address] [place] [address] 76482 Eosinophils/100 WBC (Bld) 6.6 % Normal 0.0-6.0 [facility] Comment on above: Performed By: #### 5 7021-8 ####CALE Roth ([id number])[facility] ([facility])[address] [place] [address] 86591 Erythrocyte distribution width (RBC) [Ratio] 14.1 % Normal 11.5-14.5 [facility] Comment on above: Performed By: #### 5 7021-8 ####CALE Roth ([id number])[facility] ([facility])[address] [place] [address] 58661 Hematocrit (Bld) [Volume fraction] 35.6 % Low 36.0-46.0 [facility] Comment on above: Performed By: #### 5 7021-8 ####CALE Roth ([id number])[facility] ([facility])[address] [place] [address] 55435 Hemoglobin (Bld) [Mass/Vol] 11.4 g/dL Low 12.0-16.0 [facility] Comment on above: Performed By: #### 5 7021-8 ####CALE Roth ([id number])[facility] ([facility])[address] [place] [address]130 Immature granulocytes (Bld) [#/Vol] 0.13 x10*3/uL Normal 0.00-0.70 [facility] Comment on above: Performed By: #### 5 7021-8 ####CALE Roth ([id number])[facility] ([facility])[address] [place] [address] Immature granulocytes/100 WBC (Bld) 2.0 % High 0.0-0.9 [facility] Comment on above: Result Comment: Aleisha ture Granulocyte Count (IG) includes promyelocytes, myelocytes and metamyelocytes but does not include bands. Percent differential counts (%) should be interpreted in the context of the absolute cell counts (cells/UL). Performed By: #### 5 7021-8 ####CALE Roth ([id number])[facility] ([facility])[address] [place] [address] Lymphocytes (Bld) [#/Vol] 1.56 x10*3/uL Normal 1.20-4.80 [facility] Comment on above: Performed By: #### 5 7021-8 ####CALE Roth ([id number])[facility] ([facility])[address]46 [place] [address] Lymphocytes/100 WBC (Bld) 24.5 % Normal 13.0-44.0 [facility] Comment on above: Performed By: #### 5 7021-8 ####CALE Roth ([id number])[facility] ([facility])[address] [place] [address] MCH (RBC) [Entitic mass] 29.7 pg Normal 26.0-34.0 [facility] Comment on above: Performed By: #### 5 7021-8 ####CALE Roth ([id number])[facility] ([facility])[address]191 [place] [address] MCHC (RBC) [Mass/Vol] 32.0 g/dL Normal 32.0-36.0 [facility] Comment on above: Performed By: #### 5 7021-8 ####CALE Roth ([id number])[facility] ([facility])[address]33 [place] [address] MCV (RBC) [Entitic vol] 93 fL Normal 80-100 [facility] Comment on above: Performed By: #### 5 7021-8 ####CALE Roth ([id number])[facility] ([facility])[address] [place] [address] Monocytes (Bld) [#/Vol] 0.59 x10*3/uL Normal 0.10-1.00 [facility] Comment on above: Performed By: #### 5 7021-8 ####CALE Roth ([id number])[facility] ([facility])[address]36 [place] [address] Monocytes/100 WBC (Bld) 9.3 % Normal 2.0-10.0 [facility] Comment on above: Performed By: #### 5 7021-8 ####CALE Roth ([id number])[facility] ([facility])[address]361 [place] [address] Neutrophils (Bld) [#/Vol] 3.60 x10*3/uL Normal 1.20-7.70 [facility] Comment on above: Result Comment: Perc ent differential counts (%) should be interpreted in the context of the absolute cell counts (cells/uL). Performed By: #### 5 7021-8 ####CALE Roth ([id number])[facility] ([facility])[address]65 [place] [address] Neutrophils/100 WBC (Bld) 56.7 % Normal 40.0-80.0 [facility] Comment on above: Performed By: #### 5 7021-8 ####CALE Roth ([id number])[facility] ([facility])[address]16 [place] [address] Nucleated RBC/100 WBC (Bld) [Ratio] 0.0 /100 WBCs Normal 0.0-0.0 [facility] Comment on above: Performed By: #### 5 7021-8 ####CALE Roth (58534)[facility] ([facility])[address]241 [place] [address] Platelets (Bld) [#/Vol] 241 x10*3/uL Normal 150-450 [facility] Comment on above: Performed By: #### 5 7021-8 ####CALE Roth ([id number])[facility] ([facility])[address]147 [place] [address] RBC (Bld) [#/Vol] 3.84 x10*6/uL Low 4.00-5.20 [facility] Comment on above: Performed By: #### 5 7021-8 ####CALE Roth (55963)[facility] ([facility])[address]248 [place] [address] WBC (Bld) [#/Vol] 6.4 x10*3/uL Normal 4.4-11.3 [facility] Comment on above: Performed By: #### 5 7021-8 ####CALE Roth ([id number])[facility] ([facility])[address] [place] [address]242 Calcium.ionizedon 03-31-2025 Calcium.ionized (Bld) [Moles/Vol] 1.12 mmol/L Normal 1.1-1.33 [facility] Comment on above: Result Comment: The performance characteristics of ionized calcium testedin heparinized plasma or serum have been [facility] where [facility].Testing on heparinized plasma or serum is not approved by[facility] FDA; however, such approval is not necessary. Performed By: #### 1 994-3 ####CALE Roth ([id number])[facility] ([facility])[address] [place] [address] 58052 Glucose Test strip manual (B ld) [Mass/Vol]on 03-31-2025 Glucose [Mass/Vol] 139 mg/dL High 7499 [facility] Comment on above: Performed By: #### 2 341-6 ####CALE Roth ([id number])[facility] ([facility])[address] [place] [address] 75729 Glucose [Mass/Vol] 148 mg/dL [facility] 7499 [facility] Comment on above: Performed By: #### 2 341-6 ####CALE Roth ([id number])[facility] ([facility])[address]2010 [place] [address] Magnesiumon 03-31-2025 Magnesium [Mass/Vol] 2.14 mg/dL Normal 1.60-2.40 [facility] Comment on above: Performed By: #### 1 9123-9 ####CALE Roth ([id number])[facility] ([facility])[address]43 [place] [address] Renal function 2000 panelon 03-31-2025 Albumin BCP dye [Mass/Vol] 3.7 g/dL Normal 3.4-5.0 [facility] Comment on above: Performed By: #### 2 4362-6 ####CALE oRth ([id number])[facility] ([facility])[address]1947 [place] [address] Anion gap [Moles/Vol] 14 mmol/L Normal 10-20 [facility] Comment on above: Performed By: #### 2 4362-6 ####CALE Roth ([id number])[facility] ([facility])[address]65 [place] [address] Calcium [Mass/Vol] 9.3 mg/dL Normal 8.6-10.6 [facility] Comment on above: Performed By: #### 2 4362-6 ####CALE Roth ([id number])[facility] ([facility])[address]51 [place] [address] Chloride [Moles/Vol] 100 mmol/L Normal 98-107 [facility] Comment on above: Performed By: #### 2 4362-6 ####CALE Roth ([id number])[facility] ([facility])[address]42 [place] [address] CO2 [Moles/Vol] 28 mmol/L Normal 21-[address] [facility] Comment on above: Performed By: #### 2 4362-6 ####CALE Roth ([id number])[facility] ([facility])[address]87 [place] [address] Creatinine [Mass/Vol] 0.32 mg/dL Low 0.50-1.05 [facility] Comment on above: Performed By: #### 2 4362-6 ####CALE Roth ([id number])[facility] ([facility])[address]95 [place] [address] Glomerular filtration rate >90 Normal >60 [facility] Comment on above: Result Comment: Calc ulations of estimated GFR are performed using the 2020 CKD-EPI Study Refit equation without the race variable for the IDMS-Traceable creatinine methods.https://jasn.asnjournals.org/content//ASN .3163976876 Performed By: #### 2 4362-6 ####CALE Roth ([id number])[facility] ([facility])[address]597 [place] [address] Glucose [Mass/Vol] 139 mg/dL High 74-99 [facility] Comment on above: Performed By: #### 2 4362-6 ####CALE Roth ([id number])[facility] ([facility])[address]000 [place] [address] Phosphate [Mass/Vol] 3.6 mg/dL Normal 2.5-4.9 [facility] Comment on above: Performed By: #### 2 4362-6 ####CALE Roth ([id number])[facility] ([facility])[address]2005 [place] [address] Potassium [Moles/Vol] 3.6 mmol/L Normal 3.5-5.3 [facility] Comment on above: Performed By: #### 2 4362-6 ####CALE CAI L ([id number])[facility] ([facility])[address]304 [place] [address] Sodium [Moles/Vol] 138 mmol/L Normal 136-145 [facility] Comment on above: Performed By: #### 2 4362-6 ####CALE Roth ([id number])[facility] ([facility])[address]556 [place] [address] Urea nitrogen [Mass/Vol] 10 mg/dL Normal 6-23 [facility] Comment on above: Performed By: #### 2 4362-6 ####CALE Roth ([id number])[facility] ([facility])[address]40 [place] [address] CBC W Auto Differential pane l (Bld)on 03-30-2025 Basophils (Bld) [#/Vol] 0.06 x10*3/uL Normal 0.00-0.10 [facility] Comment on above: Performed By: #### 5 7021-8 ####CALE Roth ([id number])[facility] ([facility])[address] [place] [address] 39943 Basophils/100 WBC (Bld) 0.7 % Normal 0.0-2.0 [facility] Comment on above: Performed By: #### 5 7021-8 ####CALE Roth ([id number])[facility] ([facility])[address] [place] [address] 74735 Eosinophils (Bld) [#/Vol] 0.33 x10*3/uL Normal 0.00-0.70 [facility] Comment on above: Performed By: #### 5 7021-8 ####CALE Roth ([id number])[facility] ([facility])63203 [place] [address] Eosinophils/100 WBC (Bld) 3.7 % Normal 0.0-6.0 [facility] Comment on above: Performed By: #### 5 7021-8 ####CALE Roth ([id number])[facility] ([facility])[address] [place] [address] 51443 Erythrocyte distribution width (RBC) [Ratio] 14.1 % Normal 11.5-14.5 [facility] Comment on above: Performed By: #### 5 7021-8 ####CALE Roth ([id number])[facility] ([facility])[address]463 [place] [address] Hematocrit (Bld) [Volume fraction] 37.3 % Normal 36.0-46.0 [facility] Comment on above: Performed By: #### 5 7021-8 ####CALE Roth ([id number])[facility] ([facility])[address]67 [place] [address] Hemoglobin (Bld) [Mass/Vol] 12.2 g/dL Normal 12.0-16.0 [facility] Comment on above: Performed By: #### 5 7021-8 ####CALE Roth ([id number])[facility] ([facility])[address] [place] [address] 95655 Immature granulocytes (Bld) [#/Vol] 0.16 x10*3/uL Normal 0.00-0.70 [facility] Comment on above: Performed By: #### 5 7021-8 ####CALE Roth ([id number])[facility] ([facility])[address] [place] [address] 34518 Immature granulocytes/100 WBC (Bld) 1.8 % High 0.0-0.9 [facility] Comment on above: Result Comment: Aleisha ture Granulocyte Count (IG) includes promyelocytes, myelocytes and metamyelocytes but does not include bands. Percent differential counts (%) should be interpreted in the context of the absolute cell counts (cells/UL). Performed By: #### 5 7021-8 ####CALE Roth ([id number])[facility] ([facility])[address]62 [place] [address] Lymphocytes (Bld) [#/Vol] 1.24 x10*3/uL Normal 1.20-4.80 [facility] Comment on above: Performed By: #### 5 7021-8 ####CALE CAI L ([id number])[facility] ([facility])[address]6749 [place] [address] Lymphocytes/100 WBC (Bld) 14.1 % Normal 13.0-44.0 [facility] Comment on above: Performed By: #### 5 7021-8 ####CALE Roth ([id number])[facility] ([facility])59672 [place] [address] MCH (RBC) [Entitic mass] 30.3 pg Normal 26.0-34.0 [facility] Comment on above: Performed By: #### 5 7021-8 ####CALE Roth ([id number])[facility] ([facility])[address] [place] [address] 44444 MCHC (RBC) [Mass/Vol] 32.7 g/dL Normal 32.0-36.0 [facility] Comment on above: Performed By: #### 5 7021-8 ####CALE Roth ([id number])[facility] ([facility])[address] [place] [address] 90839 MCV (RBC) [Entitic vol] 93 fL Normal 80-100 [facility] Comment on above: Performed By: #### 5 7021-8 ####CALE Roth ([id number])[facility] ([facility])[address] [place] [address] 09143 Monocytes (Bld) [#/Vol] 0.70 x10*3/uL Normal 0.10-1.00 [facility] Comment on above: Performed By: #### 5 7021-8 ####CALE Roth ([id number])[facility] ([facility])89488 [place] [address] Monocytes/100 WBC (Bld) 7.9 % Normal 2.0-10.0 [facility] Comment on above: Performed By: #### 5 7021-8 ####CALE Roth ([id number])[facility] ([facility])[address] [place] [address] 57926 Neutrophils (Bld) [#/Vol] 6.32 x10*3/uL Normal 1.20-7.70 [facility] Comment on above: Result Comment: Perc ent differential counts (%) should be interpreted in the context of the absolute cell counts (cells/uL). Performed By: #### 5 7021-8 ####CALE Roth ([id number])[facility] ([facility])[address]343 [place] [address] Neutrophils/100 WBC (Bld) 71.8 % Normal 40.0-80.0 [facility] Comment on above: Performed By: #### 5 7021-8 ####CALE Roth ([id number])[facility] ([facility])[address] [place] [address] 56305 Nucleated RBC/100 WBC (Bld) [Ratio] 0.0 /100 WBCs Normal 0.0-0.0 [facility] Comment on above: Performed By: #### 5 7021-8 ####CALE Roth ([id number])[facility] ([facility])[address] [place] [address] 23789 Platelets (Bld) [#/Vol] 236 x10*3/uL Normal 150-450 [facility] Comment on above: Performed By: #### 5 7021-8 ####CALE Roth ([id number])[facility] ([facility])[address] [place] [address] 30823 RBC (Bld) [#/Vol] 4.03 x10*6/uL Normal 4.00-5.20 [facility] Comment on above: Performed By: #### 5 7021-8 ####CALE Roth ([id number])[facility] ([facility])[address] [place] [address] 89183 WBC (Bld) [#/Vol] 8.8 x10*3/uL Normal 4.4-11.3 [facility] Comment on above: Performed By: #### 5 7021-8 ####CALE Roth ([id number])[facility] ([facility])42731 [place] [address] Glucose Test strip manual (B ld) [Mass/Vol]on 03-30-2025 Glucose [Mass/Vol] 130 mg/dL High 74-99 [facility] Comment on above: Performed By: #### 2 341-6 ####CALE Roth ([id number])[facility] ([facility])[address]028 [place] [address] Glucose [Mass/Vol] 127 mg/dL High -[address] [place] [address] Comment on above: Performed By: #### 2 341-6 ####CALE Roth ([id number])[facility] ([facility])[address] [place] [address] 10285 Glucose [Mass/Vol] 133 mg/dL High [address] [place] [address] Comment on above: Performed By: #### 2 341-6 ####CALE Roth ([id number])[facility] ([facility])[address] [place] [address] 52886 Glucose [Mass/Vol] 120 mg/dL High [address] [place] [address] Comment on above: Performed By: #### 2 341-6 ####CALE Roth ([id number])[facility] ([facility])[address] [place] [address] 20287 Glucose [Mass/Vol] 119 mg/dL High [address] [place] [address] Comment on above: Performed By: #### 2 341-6 ####CALE Roth ([id number])[facility] ([facility])[id number] [place] [address] 53567 Magnesiumon 03-30-2025 Magnesium [Mass/Vol] 2.12 mg/dL Normal 1.60-2.40 [facility] Comment on above: Performed By: #### 1 9123-9 ####CALE Roth ([id number])[facility] ([facility])[id number] [place] [address] 32902 Renal function 2000 panelon 03-30-2025 Albumin BCP dye [Mass/Vol] 3.8 g/dL Normal 3.4-5.0 [facility] Comment on above: Performed By: #### 2 4362-6 ####CALE Roth ([id number])[facility] ([facility])[address] [facility] [place] [id number] Anion gap [Moles/Vol] 13 mmol/L Normal 10-20 [facility] Comment on above: Performed By: #### 2 4362-6 ####CALE RUTLEDGEER L ([id number])[facility] ([facility])[address] [place] [address] Calcium [Mass/Vol] 9.4 mg/dL Normal 8.6-10.6 [facility] Comment on above: Performed By: #### 2 4362-6 ####CALE PARKERTZER L ([id number])[facility] ([facility])[address] [place] [address] Chloride [Moles/Vol] 99 mmol/L Normal 98-107 [facility] Comment on above: Performed By: #### 2 4362-6 ####CALE TOSCANOMOTZER L ([id number])[facility] ([facility])[address] [place] [address] CO2 [Moles/Vol] 29 mmol/L Normal 21-[address] [facility] Comment on above: Performed By: #### 2 4362-6 ####CALE CAI L ([id number])[facility] ([facility])[address] [place] [address] Creatinine [Mass/Vol] 0.29 mg/dL Low 0.50-1.05 [facility] Comment on above: Performed By: #### 2 4362-6 ####CALE PARKERTZER L ([id number])[facility] ([facility])[address] [place] [address] Glomerular filtration rate >90 Normal >60 [facility] Comment on above: Result Comment: Calc ulations of estimated GFR are performed using the 2020 CKD-EPI Study Refit equation without the race variable for the IDMS-Traceable creatinine methods.https://jasn.asnjournals.org/content//ASN .9571351563 Performed By: #### 2 4362-6 ####CALE Roth ([id number])[facility] ([facility])[address] [place] [address] Glucose [Mass/Vol] 130 mg/dL High 74-99 [facility] Comment on above: Performed By: #### 2 4362-6 ####CALE Roth ([id number])[facility] ([facility])[address] [place] [address] Phosphate [Mass/Vol] 3.3 mg/dL Normal 2.5-4.9 [facility] Comment on above: Performed By: #### 2 4362-6 ####CALE Roth ([id number])[facility] ([facility])[address] [place] [address] Potassium [Moles/Vol] 3.3 mmol/L Low 3.5-5.3 [facility] Comment on above: Performed By: #### 2 4362-6 ####CALE Roth ([id number])[facility] ([facility])[address] [place] [address] Sodium [Moles/Vol] 138 mmol/L Normal 136-145 [facility] Comment on above: Performed By: #### 2 4362-6 ####CALE Roth ([id number])[facility] ([facility])[address] [place] [address] Urea nitrogen [Mass/Vol] 11 mg/dL Normal 6-23 [facility] Comment on above: Performed By: #### 2 4362-6 ####CALE Roth ([id number])[facility] ([facility])[address] [place] [address] Bacteriaon 03-29-2025 Bacteria identified Cx Nom (U) Normal [facility] Comment on above: Performed By: #### 6 30-4 ####CALE Roth ([id number])[facility] ([facility])[address] [place] [address] CBC W Auto Differential pane l (Bld)on 03-29-2025 Basophils (Bld) [#/Vol] 0.05 x10*3/uL Normal 0.00-0.10 [facility] Comment on above: Performed By: #### 5 7021-8 ####CALE Roth ([id number])[facility] ([facility])[address] [place] [address] Basophils/100 WBC (Bld) 0.5 % Normal 0.0-2.0 [facility] Comment on above: Performed By: #### 5 7021-8 ####CALE Roth ([id number])[facility] ([facility])[address] [place] [address] Eosinophils (Bld) [#/Vol] 0.14 x10*3/uL Normal 0.00-0.70 [facility] Comment on above: Performed By: #### 5 7021-8 ####CALE Roth ([id number])[facility] ([facility])[address] [place] [address] Eosinophils/100 WBC (Bld) 1.3 % Normal 0.0-6.0 [facility] Comment on above: Performed By: #### 5 7021-8 ####CALE Roth ([id number])[facility] ([facility])[address] [place] [address] Erythrocyte distribution width (RBC) [Ratio] 14.2 % Normal 11.5-14.5 [facility] Comment on above: Performed By: #### 5 7021-8 ####CALE Roth (75592)[facility] ([facility])[address]754 [place] [address] Hematocrit (Bld) [Volume fraction] 32.9 % Low 36.0-46.0 [facility] Comment on above: Performed By: #### 5 7021-8 ####CALE Roth (35219)[facility] ([facility])[address] [place] [address] Hemoglobin (Bld) [Mass/Vol] 11.3 g/dL Low 12.0-16.0 [facility] Comment on above: Performed By: #### 5 7021-8 ####CALE Roth (56999)[facility] ([facility])[address]441 [place] [address] Immature granulocytes (Bld) [#/Vol] 0.13 x10*3/uL Normal 0.00-0.70 [facility] Comment on above: Performed By: #### 5 7021-8 ####CALE Roth ([id number])[facility] ([facility])[address]365 [place] [address] Immature granulocytes/100 WBC (Bld) 1.2 % High 0.0-0.9 [facility] Comment on above: Result Comment: Aleisha ture Granulocyte Count (IG) includes promyelocytes, myelocytes and metamyelocytes but does not include bands. Percent differential counts (%) should be interpreted in the context of the absolute cell counts (cells/UL). Performed By: #### 5 7021-8 ####CALE Roth ([id number])[facility] ([facility])[address] [place] [address] Lymphocytes (Bld) [#/Vol] 1.21 x10*3/uL Normal 1.20-4.80 [facility] Comment on above: Performed By: #### 5 7021-8 ####CALE Roth ([id number])[facility] ([facility])[address] [place] [address] Lymphocytes/100 WBC (Bld) 10.9 % Normal 13.0-44.0 [facility] Comment on above: Performed By: #### 5 7021-8 ####CALE Roth (45990)[facility] ([facility])[address] [place] [address] MCH (RBC) [Entitic mass] 30.5 pg Normal 26.0-34.0 [facility] Comment on above: Performed By: #### 5 7021-8 ####CALE Roth ([id number])[facility] ([facility])[address]323 [place] [address] MCHC (RBC) [Mass/Vol] 34.3 g/dL Normal 32.0-36.0 [facility] Comment on above: Performed By: #### 5 7021-8 ####CALE Roth ([id number])[facility] ([facility])[address]23 [place] [address] MCV (RBC) [Entitic vol] 89 fL Normal 80-100 [facility] Comment on above: Performed By: #### 5 7021-8 ####CALE Roth (99827)[facility] ([facility])[address]40 [place] [address] Monocytes (Bld) [#/Vol] 0.75 x10*3/uL Normal 0.10-1.00 [facility] Comment on above: Performed By: #### 5 7021-8 ####CALE Roth ([id number])[facility] ([facility])[address]231 [place] [address] Monocytes/100 WBC (Bld) 6.8 % Normal 2.0-10.0 [facility] Comment on above: Performed By: #### 5 7021-8 ####CALE Roth ([id number])[facility] ([facility])[address]216 [place] [address] Neutrophils (Bld) [#/Vol] 8.79 x10*3/uL High 1.20-7.70 [facility] Comment on above: Result Comment: Perc ent differential counts (%) should be interpreted in the context of the absolute cell counts (cells/uL). Performed By: #### 5 7021-8 ####CALE Roth ([id number])[facility] ([facility])[address]62 [place] [address] Neutrophils/100 WBC (Bld) 79.3 % Normal 40.0-80.0 [facility] Comment on above: Performed By: #### 5 7021-8 ####CALE Roth ([id number])[facility] ([facility])[address]05 [place] [address] Nucleated RBC/100 WBC (Bld) [Ratio] 0.0 /100 WBCs Normal 0.0-0.0 [facility] Comment on above: Performed By: #### 5 7021-8 ####CALE Roth (36039)[facility] ([facility])[address]257 [place] [address] Platelets (Bld) [#/Vol] 236 x10*3/uL Normal 150-450 [facility] Comment on above: Performed By: #### 5 7021-8 ####CALE Roth (96037)[facility] ([facility])[address]183 [place] [address] RBC (Bld) [#/Vol] 3.71 x10*6/uL Low 4.00-5.20 [facility] Comment on above: Performed By: #### 5 7021-8 ####CALE Roth ([id number])[facility] ([facility])[address]48 [place] [address] WBC (Bld) [#/Vol] 11.1 x10*3/uL Normal 4.4-11.3 [facility] Comment on above: Performed By: #### 5 7021-8 ####CALE Roth ([id number])[facility] ([facility])[address]80 [place] [address] CT HEAD WO IV CONTRASTon CT HEAD WO IV CONTRAST Normal [facility] Calcium.ionizedon 03-29-2025 Calcium.ionized (Bld) [Moles/Vol] 1.10 mmol/L Normal 1.1-1.33 [facility] Comment on above: Result Comment: The performance characteristics of ionized calcium testedin heparinized plasma or serum have been [facility].Testing on heparinized plasma or serum is not approved [facility]; however, such approval is not necessary. Performed By: #### 1 994-3 ####CALE Roth ([id number])[facility] ([facility])[address]370 [place] [address] Glucose Test strip manual (B ld) [Mass/Vol]on 03-29-2025 Glucose [Mass/Vol] 111 mg/dL High [address] [place] [address] Comment on above: Performed By: #### 2 341-6 ####CALE Roth ([id number])[facility] ([facility])[address] [place] [address] Glucose [Mass/Vol] 122 mg/dL High [address] [place] [address] Comment on above: Performed By: #### 2 341-6 ####CALE Roth (89902)[facility] ([facility])[address] [place] [address] Glucose [Mass/Vol] 130 mg/dL High [address] [place] [address] Comment on above: Performed By: #### 2 341-6 ####CALE Roth ([id number])[facility] ([facility])[address] [place] [address] Glucose [Mass/Vol] 138 mg/dL High [address] [place] [address] Comment on above: Performed By: #### 2 341-6 ####CALE Roth ([id number])[facility] ([facility])[address] [place] [address] Magnesiumon 03-29-2025 Magnesium [Mass/Vol] 2.06 mg/dL Normal 1.60-2.40 [facility] Comment on above: Performed By: #### 1 9123-9 ####CALE Roth (49295)[facility] ([facility])[address] [place] [address] RBC shape Nom (Bld)on 2024 RBC morphology finding Nom (Bld) No significant RBC morphology present Normal [facility] Comment on above: Performed By: #### 1 8225-3 ####CALE Roth ([id number])[facility] ([facility])[address]151 [place] [address] Renal function 2000 panelon 03-29-2025 Albumin BCP dye [Mass/Vol] 3.7 g/dL Normal 3.4-5.0 [facility] Comment on above: Performed By: #### 2 4362-6 ####CALE Roth (45647)[facility] ([facility])[address]80 [place] [address] Anion gap [Moles/Vol] 11 mmol/L Normal 10-20 [facility] Comment on above: Performed By: #### 2 4362-6 ####CALE Roth ([id number])[facility] ([facility])[address]146 [place] [address] Calcium [Mass/Vol] 9.3 mg/dL Normal 8.6-10.6 [facility] Comment on above: Performed By: #### 2 4362-6 ####CALE Roth ([id number])[facility] ([facility])[address]88 [place] [address] Chloride [Moles/Vol] 98 mmol/L Normal 98-107 [facility] Comment on above: Performed By: #### 2 4362-6 ####CALE Roth ([id number])[facility] ([facility])[address]58 [place] [address] CO2 [Moles/Vol] 32 mmol/L Normal 21-[address] [facility] Comment on above: Performed By: #### 2 4362-6 ####CALE Roth ([id number])[facility] ([facility])[address]86 [place] [address] Creatinine [Mass/Vol] 0.32 mg/dL Low 0.50-1.05 [facility] Comment on above: Performed By: #### 2 4362-6 ####CALE Roth ([id number])[facility] ([facility])[address]11 [place] [address] Glomerular filtration rate >90 Normal >60 [facility] Comment on above: Result Comment: Calc ulations of estimated GFR are performed using the 2020 CKD-EPI Study Refit equation without the race variable for the IDMS-Traceable creatinine methods.https://jasn.asnjournals.org/content/early/ASN .3301055526 Performed By: #### 2 4362-6 ####CALE Roth ([id number])[facility] ([facility])[address]11 [place] [address] Glucose [Mass/Vol] 134 mg/dL High 74-99 [facility] Comment on above: Performed By: #### 2 4362-6 ####CALE Roth ([id number])[facility] ([facility])[address]229 [place] [address] Phosphate [Mass/Vol] 3.0 mg/dL Normal 2.5-4.9 [facility] Comment on above: Performed By: #### 2 4362-6 ####CALE Roth ([id number])[facility] ([facility])[address] [place] [address] Potassium [Moles/Vol] 3.8 mmol/L Normal 3.5-5.3 [facility] Comment on above: Performed By: #### 2 4362-6 ####CALE Roth (72491)[facility] ([facility])[address] [place] [address] Sodium [Moles/Vol] 137 mmol/L Normal 136-145 [facility] Comment on above: Performed By: #### 2 4362-6 ####CALE CAI L (77379)[facility] ([facility])[address]297 [place] [address] Urea nitrogen [Mass/Vol] 12 mg/dL Normal 6-23 [facility] Comment on above: Performed By: #### 2 4362-6 ####CALE CAI L (14753)[facility] ([facility])[address] [facility] [place] [address] Urinalysis complete W Reflex Culture panel (U)on 03-29-2025 Appearance (U) Turbid Normal Clear [facility] Comment on above: Performed By: #### 5 8077-9 ####CALE Roth ([id number])[facility] ([facility])[address] [place] [address] Bilirubin (U) [Mass/Vol] Negative Normal NEGATIVE [facility] Comment on above: Performed By: #### 5 8077-9 ####CALE Roth (59123)[facility] ([facility])[address] [place] [address] Color (U) Yellow Normal Light-Yello w, Yellow, Dark-Yellow [facility] Comment on above: Performed By: #### 5 8077-9 ####CALE Roth (60644)[facility] ([facility])[address] [place] [address] Glucose Auto test strip (U) [Mass/Vol] Normal Normal Normal [facility] Comment on above: Performed By: #### 5 8077-9 ####CALE CAI L ([id number])[facility] ([facility])[address] [place] [address] Ketones (U) [Mass/Vol] Negative Normal NEGATIVE [facility] Comment on above: Performed By: #### 5 8077-9 ####CALE Roth ([id number])[facility] ([facility])[address] [place] [address] Leukocyte esterase Auto test strip Ql (U) 25 Joe/uL Abnormal NEGATIVE [facility] Comment on above: Performed By: #### 5 8077-9 ####CALE CAI L ([id number])[facility] ([facility])[address] [place] [address] Nitrite Auto test strip Ql (U) Negative Normal NEGATIVE [facility] Comment on above: Performed By: #### 5 8077-9 ####CALE CAI L ([id number])[facility] ([facility])[address] [place] [address] pH (U) 6.5 [pH] Normal 5.0, 5.5, 6.0, 6.5, 7.0, 7.5, 8.0 [facility] Comment on above: Performed By: #### 5 8077-9 ####CALE Roth (93551)[facility] ([facility])[address] [place] [address] Protein (U) [Mass/Vol] 10 (TRACE) Normal NEGATIVE, 10 (TRACE), 20 (TRACE) [facility] Comment on above: Performed By: #### 5 8077-9 ####CALE Roth ([id number])[facility] ([facility])[address] [place] [address] 19886 RBC (U) [#/Vol] Negative Normal NEGATIVE [facility] Comment on above: Performed By: #### 5 8077-9 ####CALE Roth (28592)[facility] ([facility])[address] [place] [address] 32700 Specific gravity (U) [Rel density] 1.023 Normal 1.005-1.035 [facility] Comment on above: Performed By: #### 5 8077-9 ####CALE Roth ([id number])[facility] ([facility])[address] [place] [address] Urobilinogen (U) [Mass/Vol] Normal Normal Normal [facility] Comment on above: Performed By: #### 5 8077-9 ####CALE Roth (84342)[facility] ([facility])[address] [place] [address] Urinalysis microscopic panel Auto Ql (U)on 03-29-2025 Bacteria Auto (Urine sed) [#/Area] 1+ /HPF Abnormal NONE SEEN [facility] Comment on above: Performed By: #### 5 3315-8 ####CALE Roth (35597)[facility] ([facility])[address] [place] [address] Epithelial cells.squamous Auto (Urine sed) [#/Area] 1-9 (SPARSE) Normal Reference range not established . [facility] Comment on above: Performed By: #### 5 3315-8 ####CALE Roth (52712)[facility] ([facility])[address]393 [place] [address] Mucus Auto (Urine sed) [#/Area] FEW Normal Reference range not established . [facility] Comment on above: Performed By: #### 5 3315-8 ####CALE Roth (85409)[facility] ([facility])[address]103 [place] [address] RBC Auto (Urine sed) [#/Area] 3-5 Normal NONE, 1-2, 3-5 [facility] Comment on above: Performed By: #### 5 3315-8 ####CALE Roth ([id number])[facility] ([facility])[address]318 [place] [address] WBC Auto (Urine sed) [#/Area] 1-5 Normal 1-5, NONE [facility] Comment on above: Performed By: #### 5 3315-8 ####CALE Roth ([id number])[facility] ([facility])[address]67 [place] [address] Yeast.budding Computer assisted (U) [#/Area] PRESENT Abnormal NONE [facility] Comment on above: Performed By: #### 5 3315-8 ####CALE Roth ([id number])[facility] ([facility])[address]15 [place] [address] XR ABDOMEN 1 VIEWon 03-29-20 XR ABDOMEN 1 VIEW Normal [facility] CBC W Auto Differential pane l (Bld)on 03-28-2025 Basophils (Bld) [#/Vol] 0.04 x10*3/uL Normal 0.00-0.10 [facility] Comment on above: Performed By: #### 5 7021-8 ####CALE Roth ([id number])[facility] ([facility])[address]62 [place] [address] Basophils/100 WBC (Bld) 0.8 % Normal 0.0-2.0 [facility] Comment on above: Performed By: #### 5 7021-8 ####CALE Roth ([id number])[facility] ([facility])[address] [place] [address] Eosinophils (Bld) [#/Vol] 0.13 x10*3/uL Normal 0.00-0.70 [facility] Comment on above: Performed By: #### 5 7021-8 ####CALE Roth ([id number])[facility] ([facility])[address] [place] [address]27 Eosinophils/100 WBC (Bld) 2.6 % Normal 0.0-6.0 [facility] Comment on above: Performed By: #### 5 7021-8 ####CALE Roth ([id number])[facility] ([facility])[address] [place] [address] Erythrocyte distribution width (RBC) [Ratio] 14.3 % Normal 11.5-14.5 [facility] Comment on above: Performed By: #### 5 7021-8 ####CALE Roth ([id number])[facility] ([facility])[address] [place] [address] Hematocrit (Bld) [Volume fraction] 34.6 % Low 36.0-46.0 [facility] Comment on above: Performed By: #### 5 7021-8 ####CALE Roth (40202)[facility] ([facility])[address] [place] [address] Hemoglobin (Bld) [Mass/Vol] 11.5 g/dL Low 12.0-16.0 [facility] Comment on above: Performed By: #### 5 7021-8 ####CALE Roth ([id number])[facility] ([facility])[address] [place] [address] 11475 Immature granulocytes (Bld) [#/Vol] 0.15 x10*3/uL Normal 0.00-0.70 [facility] Comment on above: Performed By: #### 5 7021-8 ####CALE Roth (24003)[facility] ([facility])[address]16 [place] [address] Immature granulocytes/100 WBC (Bld) 3.0 % High 0.0-0.9 [facility] Comment on above: Result Comment: Aleisha ture Granulocyte Count (IG) includes promyelocytes, myelocytes and metamyelocytes but does not include bands. Percent differential counts (%) should be interpreted in the context of the absolute cell counts (cells/UL). Performed By: #### 5 7021-8 ####CALE Roth (64745)[facility] ([facility])[address] [place] [address] Lymphocytes (Bld) [#/Vol] 1.25 x10*3/uL Normal 1.20-4.80 [facility] Comment on above: Performed By: #### 5 7021-8 ####CALE Roth ([id number])[facility] ([facility])[address]27 [place] [address] Lymphocytes/100 WBC (Bld) 24.6 % Normal 13.0-44.0 [facility] Comment on above: Performed By: #### 5 7021-8 ####CALE Roth ([id number])[facility] ([facility])[address]679 [place] [address] MCH (RBC) [Entitic mass] 30.0 pg Normal 26.0-34.0 [facility] Comment on above: Performed By: #### 5 7021-8 ####CALE Roth ([id number])[facility] ([facility])[address]166 [place] [address] MCHC (RBC) [Mass/Vol] 33.2 g/dL Normal 32.0-36.0 [facility] Comment on above: Performed By: #### 5 7021-8 ####CALE Roth (25699)[facility] ([facility])[address]69 [place] [address] MCV (RBC) [Entitic vol] 90 fL Normal 80-100 [facility] Comment on above: Performed By: #### 5 7021-8 ####CALE Roth ([id number])[facility] ([facility])[address]402 [place] [address] Monocytes (Bld) [#/Vol] 0.41 x10*3/uL Normal 0.10-1.00 [facility] Comment on above: Performed By: #### 5 7021-8 ####CALE Roth ([id number])[facility] ([facility])[address]300 [place] [address] Monocytes/100 WBC (Bld) 8.1 % Normal 2.0-10.0 [facility] Comment on above: Performed By: #### 5 7021-8 ####CALE Roth (49661)[facility] ([facility])[address]02 [place] [address] Neutrophils (Bld) [#/Vol] 3.10 x10*3/uL Normal 1.20-7.70 [facility] Comment on above: Result Comment: Perc ent differential counts (%) should be interpreted in the context of the absolute cell counts (cells/uL). Performed By: #### 5 7021-8 ####CALE Roth ([id number])[facility] ([facility])[address]69 [place] [address] Neutrophils/100 WBC (Bld) 60.9 % Normal 40.0-80.0 [facility] Comment on above: Performed By: #### 5 7021-8 ####CALE Roth (73911)[facility] ([facility])[address]201 [place] [address] Nucleated RBC/100 WBC (Bld) [Ratio] 0.0 /100 WBCs Normal 0.0-0.0 [facility] Comment on above: Performed By: #### 5 7021-8 ####CALE Roth ([id number])[facility] ([facility])[address] [place] [address] Platelets (Bld) [#/Vol] 231 x10*3/uL Normal 150-450 [facility] Comment on above: Performed By: #### 5 7021-8 ####CALE Roth ([id number])[facility] ([facility])[address] [place] [address] RBC (Bld) [#/Vol] 3.83 x10*6/uL Low 4.00-5.20 [facility] Comment on above: Performed By: #### 5 7021-8 ####CALE Roth ([id number])[facility] ([facility])[id number] [place] [address] WBC (Bld) [#/Vol] 5.1 x10*3/uL Normal 4.4-11.3 [facility] Comment on above: Performed By: #### 5 7021-8 ####CALE Roth ([id number])[facility] ([facility])[id number] [place] [address] Calcium.ionizedon 03-28-2025 Calcium.ionized (Bld) [Moles/Vol] 1.03 mmol/L Low 1.1-1.33 [facility] Comment on above: Result Comment: The performance characteristics of ionized calcium testedin heparinized plasma or serum have [facility].Testing on heparinized plasma or serum is not approved bythe FDA; however, such approval is not necessary. Performed By: #### 1 994-3 ####CALE Roth ([id number])[facility] ([facility])[id number] [place] [address] Glucose Test strip manual (B ld) [Mass/Vol]on 03-28-2025 Glucose [Mass/Vol] 127 mg/dL High 74-99 [facility] Comment on above: Performed By: #### 2 341-6 ####CALE Roth ([id number])[facility] [facility] [place] [address], [place] [address] Glucose [Mass/Vol] 116 mg/dL High 74-99 [facility] Comment on above: Performed By: #### 2 341-6 ####CALE Roth ([id number])[facility] ([facility])[address] [place] [address] Glucose [Mass/Vol] 126 mg/dL High 74-99 [facility] Comment on above: Performed By: #### 2 341-6 ####CALE Roth ([id number])[facility] ([facility])[address] [place] [address] Magnesiumon 03-28-2025 Magnesium [Mass/Vol] 2.08 mg/dL Normal 1.60-2.40 [facility] Comment on above: Performed By: #### 1 9123-9 ####CALE Roth ([id number])[facility] ([facility])[address] [place] [address] Renal function 2000 panelon 03-28-2025 Albumin BCP dye [Mass/Vol] 4.1 g/dL Normal 3.4-5.0 [facility] Comment on above: Performed By: #### 2 4362-6 ####CALE Roth ([id number])[facility] ([facility])[address] [place] [address] Anion gap [Moles/Vol] 13 mmol/L Normal 10-20 [facility] Comment on above: Performed By: #### 2 4362-6 ####CALE Roth ([id number])[facility] ([facility])[address] [place] [address] Calcium [Mass/Vol] 9.5 mg/dL Normal 8.6-10.6 [facility] Comment on above: Performed By: #### 2 4362-6 ####CALE Roth ([id number])[facility] ([facility])[address]182 [place] [address] Chloride [Moles/Vol] 96 mmol/L Low 98-107 [facility] Comment on above: Performed By: #### 2 4362-6 ####CALE Roth ([id number])[facility] ([facility])[address]376 [place] [address] CO2 [Moles/Vol] 29 mmol/L Normal 21-[address] [facility] Comment on above: Performed By: #### 2 4362-6 ####CALE Roth ([id number])[facility] ([facility])[address]672 [place] [address] Creatinine [Mass/Vol] 0.39 mg/dL Low 0.50-1.05 [facility] Comment on above: Performed By: #### 2 4362-6 ####CALE Roth ([id number])[facility] ([facility])[address] [place] [address] Glomerular filtration rate >90 Normal >60 [facility] Comment on above: Result Comment: Calc ulations of estimated GFR are performed using the 2020 CKD-EPI Study Refit equation without the race variable for the IDMS-Traceable creatinine methods.https://jasn.asnjournals.org/content//ASN .2988007196 Performed By: #### 2 4362-6 ####CALE Roth ([id number])[facility] ([facility])[address]75 [place] [address] Glucose [Mass/Vol] 170 mg/dL High 74-99 [facility] Comment on above: Performed By: #### 2 4362-6 ####CALE Roth ([id number])[facility] ([facility])[address] [place] [address] Phosphate [Mass/Vol] 3.1 mg/dL Normal 2.5-4.9 [facility] Comment on above: Performed By: #### 2 4362-6 ####CALE Roth ([id number])[facility] ([facility])[address]83 [place] [address] Potassium [Moles/Vol] 3.9 mmol/L Normal 3.5-5.3 [facility] Comment on above: Performed By: #### 2 4362-6 ####CALE Roth ([id number])[facility] ([facility])[address] [place] [address] Sodium [Moles/Vol] 134 mmol/L Low 136-145 [facility] Comment on above: Performed By: #### 2 4362-6 ####CALE Roth ([id number])[facility] ([facility])[address] [place] [address] Urea nitrogen [Mass/Vol] 14 mg/dL Normal 6-23 [facility] Comment on above: Performed By: #### 2 4362-6 ####CALE Roth ([id number])[facility] ([facility])[address] [place] [address] XR CHEST 1 VIEWon 03-28-2025 XR CHEST [address] [facility] XR CHEST [address] [facility] CBC W Auto Differential pane l (Bld)on 03-27-2025 Basophils (Bld) [#/Vol] 0.04 x10*3/uL Normal 0.00-0.10 [facility] Comment on above: Performed By: #### 5 7021-8 ####CALE Roth ([id number])[facility] ([facility])[address]17 [place] [address] Basophils/100 WBC (Bld) 0.4 % Normal 0.0-2.0 [facility] Comment on above: Performed By: #### 5 7021-8 ####CALE Roth ([id number])[facility] ([facility])[address] [place] [address] Eosinophils (Bld) [#/Vol] 0.20 x10*3/uL Normal 0.00-0.70 [facility] Comment on above: Performed By: #### 5 7021-8 ####CALE Roth ([id number])[facility] ([facility])[address]113 [place] [address] Eosinophils/100 WBC (Bld) 2.2 % Normal 0.0-6.0 [facility] Comment on above: Performed By: #### 5 7021-8 ####CALE Roth ([id number])[facility] ([facility])[address]010 [place] [address] Erythrocyte distribution width (RBC) [Ratio] 14.4 % Normal 11.5-14.5 [facility] Comment on above: Performed By: #### 5 7021-8 ####CALE Roth ([id number])[facility] ([facility])[address] [place] [address] Hematocrit (Bld) [Volume fraction] 33.1 % Low 36.0-46.0 [facility] Comment on above: Performed By: #### 5 7021-8 ####CALE Roth ([id number])[facility] ([facility])[address] [place] [address] Hemoglobin (Bld) [Mass/Vol] 11.1 g/dL Low 12.0-16.0 [facility] Comment on above: Performed By: #### 5 7021-8 ####CALE Roth ([id number])[facility] ([facility])[address] [place] [address] Immature granulocytes (Bld) [#/Vol] 0.17 x10*3/uL Normal 0.00-0.70 [facility] Comment on above: Performed By: #### 5 7021-8 ####CALE Roth ([id number])[facility] ([facility])[address]994 [place] [address] Immature granulocytes/100 WBC (Bld) 1.9 % High 0.0-0.9 [facility] Comment on above: Result Comment: Aleisha ture Granulocyte Count (IG) includes promyelocytes, myelocytes and metamyelocytes but does not include bands. Percent differential counts (%) should be interpreted in the context of the absolute cell counts (cells/UL). Performed By: #### 5 7021-8 ####CALE Roth ([id number])[facility] ([facility])[address]792 [place] [address] Lymphocytes (Bld) [#/Vol] 1.31 x10*3/uL Normal 1.20-4.80 [facility] Comment on above: Performed By: #### 5 7021-8 ####CALE Roth ([id number])[facility] ([facility])[address] [place] [address] Lymphocytes/100 WBC (Bld) 14.3 % Normal 13.0-44.0 [facility] Comment on above: Performed By: #### 5 7021-8 ####CALE Roth ([id number])[facility] ([facility])[address] [place] [address] MCH (RBC) [Entitic mass] 30.7 pg Normal 26.0-34.0 [facility] Comment on above: Performed By: #### 5 7021-8 ####CALE Roth ([id number])[facility] ([facility])[address]45 [place] [address] MCHC (RBC) [Mass/Vol] 33.5 g/dL Normal 32.0-36.0 [facility] Comment on above: Performed By: #### 5 7021-8 ####CALE Roth ([id number])[facility] ([facility])[address]75 [place] [address] MCV (RBC) [Entitic vol] 91 fL Normal 80-100 [facility] Comment on above: Performed By: #### 5 7021-8 ####CALE Roth ([id number])[facility] ([facility])[address] [place] [address] Monocytes (Bld) [#/Vol] 0.52 x10*3/uL Normal 0.10-1.00 [facility] Comment on above: Performed By: #### 5 7021-8 ####CALE Roth ([id number])[facility] ([facility])[address]265 [place] [address] Monocytes/100 WBC (Bld) 5.7 % Normal 2.0-10.0 [facility] Comment on above: Performed By: #### 5 7021-8 ####CALE Roth ([id number])[facility] ([facility])[address]209 [place] [address] Neutrophils (Bld) [#/Vol] 6.89 x10*3/uL Normal 1.20-7.70 [facility] Comment on above: Result Comment: Perc ent differential counts (%) should be interpreted in the context of the absolute cell counts (cells/uL). Performed By: #### 5 7021-8 ####CALE Roth ([id number])[facility] ([facility])[address]66 [place] [address] Neutrophils/100 WBC (Bld) 75.5 % Normal 40.0-80.0 [facility] Comment on above: Performed By: #### 5 7021-8 ####CALE Roth ([id number])[facility] ([facility])[address]303 [place] [address] Nucleated RBC/100 WBC (Bld) [Ratio] 0.0 /100 WBCs Normal 0.0-0.0 [facility] Comment on above: Performed By: #### 5 7021-8 ####CALE Roth ([id number])[facility] ([facility])[address] [place] [address] Platelets (Bld) [#/Vol] 216 x10*3/uL Normal 150-450 [facility] Comment on above: Performed By: #### 5 7021-8 ####CALE Roth ([id number])[facility] ([facility])[address]24 [place] [address] RBC (Bld) [#/Vol] 3.62 x10*6/uL Low 4.00-5.20 [facility] Comment on above: Performed By: #### 5 7021-8 ####CALE Roth ([id number])[facility] ([facility])[address]76 [place] [address] WBC (Bld) [#/Vol] 9.1 x10*3/uL Normal 4.4-11.3 [facility] Comment on above: Performed By: #### 5 7021-8 ####CALE Roth ([id number])[facility] ([facility])[address]109 [place] [address] Calcium.ionizedon 03-27-2025 Calcium.ionized (Bld) [Moles/Vol] 1.20 mmol/L Normal 1.1-1.33 [facility] Comment on above: Result Comment: The performance characteristics of ionized calcium testedin heparinized plasma or serum have been [facility] where [facility].Testing on heparinized plasma or serum is not approved bythe FDA; however, such approval is not necessary. Performed By: #### 1 994-3 ####CALE Roth ([id number])[facility] ([facility])[address] [place] [address] Glucose Test strip manual (B ld) [Mass/Vol]on 03-27-2025 Glucose [Mass/Vol] 134 mg/dL High [address] [place] [address] Comment on above: Performed By: #### 2 341-6 ####CALE Roth ([id number])[facility] ([facility])[address] [place] [address] Glucose [Mass/Vol] 131 mg/dL High [address] [place] [address] Comment on above: Performed By: #### 2 341-6 ####CALE Roth ([id number])[facility] ([facility])[address] [place] [address] Glucose [Mass/Vol] 123 mg/dL High [address] [place] [address] Comment on above: Performed By: #### 2 341-6 ####CALE Roth ([id number])[facility] ([facility])[address]134 [place] [address] Glucose [Mass/Vol] 123 mg/dL High 74-99 [facility] Comment on above: Performed By: #### 2 341-6 ####CALE Roth ([id number])[facility] ([facility])[address]22 [place] [address] Glucose [Mass/Vol] 123 mg/dL High 74-99 [facility] Comment on above: Performed By: #### 2 341-6 ####CALE Roth ([id number])[facility] ([facility])[address]220 [place] [address] Glucose [Mass/Vol] 152 mg/dL High 74-99 [facility] Comment on above: Performed By: #### 2 341-6 ####CALE Roth ([id number])[facility] ([facility])[address]24 [place] [address] Magnesiumon 03-27-2025 Magnesium [Mass/Vol] 2.20 mg/dL Normal 1.60-2.40 [facility] Comment on above: Result Comment: MILD HEMOLYSIS DETECTED. The result may be falsely elevated due to hemolysis or other interferents. Clinical correlation is recommended. Repeat testing may be considered. Performed By: #### 1 9123-9 ####CALE Roth ([id number])[facility] ([facility])[address]49 [place] [address] Renal function 2000 panelon 03-27-2025 Albumin BCP dye [Mass/Vol] 4.0 g/dL Normal 3.4-5.0 [facility] Comment on above: Performed By: #### 2 4362-6 ####CALE Roth ([id number])[facility] ([facility])[address]77 [place] [address] Anion gap [Moles/Vol] 14 mmol/L Normal 10-20 [facility] Comment on above: Performed By: #### 2 4362-6 ####CALE Roth ([id number])[facility] ([facility])[address]89 [place] [address] Calcium [Mass/Vol] 9.5 mg/dL Normal 8.6-10.6 [facility] Comment on above: Performed By: #### 2 4362-6 ####CALE Roth ([id number])[facility] ([facility])[address]81 [place] [address] Chloride [Moles/Vol] 99 mmol/L Normal 98-107 [facility] Comment on above: Performed By: #### 2 4362-6 ####CALE CAI L ([id number])[facility] ([facility])[address]374 [place] [address] CO2 [Moles/Vol] 28 mmol/L Normal 21-[address] [facility] Comment on above: Performed By: #### 2 4362-6 ####CALE CAI L ([id number])[facility] ([facility])[address]278 [place] [address] Creatinine [Mass/Vol] 0.32 mg/dL Low 0.50-1.05 [facility] Comment on above: Performed By: #### 2 4362-6 ####CALE CAI L ([id number])[facility] ([facility])[address]709 [place] [address] Glomerular filtration rate >90 Normal >60 [facility] Comment on above: Result Comment: Calc ulations of estimated GFR are performed using the 2020 CKD-EPI Study Refit equation without the race variable for the IDMS-Traceable creatinine methods.https://jasn.asnjournals.org/content/early/ASN .0288957027 Performed By: #### 2 4362-6 ####CALE CAI L (75371)[facility] ([facility])[address]778 [place] [address] Glucose [Mass/Vol] 122 mg/dL High 74-99 [facility] Comment on above: Performed By: #### 2 4362-6 ####CALE Roth ([id number])[facility] ([facility])[address]165 [place] [address] Phosphate [Mass/Vol] 3.4 mg/dL Normal 2.5-4.9 [facility] Comment on above: Result Comment: MILD HEMOLYSIS DETECTED. The result may be falsely elevated due to hemolysis or other interferents. Clinical correlation is recommended. Repeat testing may be considered. Performed By: #### 2 4362-6 ####CALE Roth ([id number])[facility] ([facility])[address]396 [place] [address] Potassium [Moles/Vol] 4.1 mmol/L Normal 3.5-5.3 [facility] Comment on above: Result Comment: MILD HEMOLYSIS DETECTED. The result may be falsely elevated due to hemolysis or other interferents. Clinical correlation is recommended. Repeat testing may be considered. Performed By: #### 2 4362-6 ####CALE Roth ([id number])[facility] ([facility])[address]658 [place] [address] Sodium [Moles/Vol] 137 mmol/L Normal 136-145 [facility] Comment on above: Performed By: #### 2 4362-6 ####CALE Roth ([id number])[facility] ([facility])[address]65 [place] [address] Urea nitrogen [Mass/Vol] 12 mg/dL Normal 6-23 [facility] Comment on above: Performed By: #### 2 4362-6 ####CALE Roth ([id number])[facility] ([facility])[address]148 [place] [address] C reactive proteinon 025 CRP [Mass/Vol] 3.41 mg/dL High <1.00 [facility] Comment on above: Performed By: #### 1 988-5 ####CALE Roth ([id number])[facility] ([facility])[address]658 [place] [address] CBC W Auto Differential pane l (Bld)on 03-26-2025 Basophils (Bld) [#/Vol] 0.02 x10*3/uL Normal 0.00-0.10 [facility] Comment on above: Performed By: #### 5 7021-8 ####CALE Roth ([id number])[facility] ([facility])[address]651 [place] [address] Basophils/100 WBC (Bld) 0.2 % Normal 0.0-2.0 [facility] Comment on above: Performed By: #### 5 7021-8 ####CALE Roth ([id number])[facility] ([facility])[address]752 [place] [address] Eosinophils (Bld) [#/Vol] 0.25 x10*3/uL Normal 0.00-0.70 [facility] Comment on above: Performed By: #### 5 7021-8 ####CALE Roth ([id number])[facility] ([facility])[address]496 [place] [address] Eosinophils/100 WBC (Bld) 3.1 % Normal 0.0-6.0 [facility] Comment on above: Performed By: #### 5 7021-8 ####CALE Roth ([id number])[facility] ([facility])[address]371 [place] [address] Erythrocyte distribution width (RBC) [Ratio] 13.9 % Normal 11.5-14.5 [facility] Comment on above: Performed By: #### 5 7021-8 ####CALE Roth ([id number])[facility] ([facility])[address]356 [place] [address] Hematocrit (Bld) [Volume fraction] 26.2 % Low 36.0-46.0 [facility] Comment on above: Performed By: #### 5 7021-8 ####CALE Roth ([id number])[facility] ([facility])[address]453 [place] [address] Hemoglobin (Bld) [Mass/Vol] 9.5 g/dL Low 12.0-16.0 [facility] Comment on above: Performed By: #### 5 7021-8 ####CALE Roth ([id number])[facility] ([facility])[address]649 [place] [address] Immature granulocytes (Bld) [#/Vol] 0.16 x10*3/uL Normal 0.00-0.70 [facility] Comment on above: Performed By: #### 5 7021-8 ####CALE Roth ([id number])[facility] ([facility])[address]259 [place] [address] Immature granulocytes/100 WBC (Bld) 2.0 % High 0.0-0.9 [facility] Comment on above: Result Comment: Aleisha ture Granulocyte Count (IG) includes promyelocytes, myelocytes and metamyelocytes but does not include bands. Percent differential counts (%) should be interpreted in the context of the absolute cell counts (cells/UL). Performed By: #### 5 7021-8 ####CALE Roth ([id number])[facility] ([facility])[address]82 [place] [address] Lymphocytes (Bld) [#/Vol] 1.40 x10*3/uL Normal 1.20-4.80 [facility] Comment on above: Performed By: #### 5 7021-8 ####CALE Roth ([id number])[facility] ([facility])[address]25 [place] [address] Lymphocytes/100 WBC (Bld) 17.5 % Normal 13.0-44.0 [facility] Comment on above: Performed By: #### 5 7021-8 ####CALE Roth ([id number])[facility] ([facility])[address]370 [place] [address] MCH (RBC) [Entitic mass] 30.4 pg Normal 26.0-34.0 [facility] Comment on above: Performed By: #### 5 7021-8 ####CALE Roth ([id number])[facility] ([facility])[address]60 [place] [address] MCHC (RBC) [Mass/Vol] 36.3 g/dL High 32.0-36.0 [facility] Comment on above: Performed By: #### 5 7021-8 ####CALE Roth ([id number])[facility] ([facility])[address]56 [place] [address] MCV (RBC) [Entitic vol] 84 fL Normal 80-100 [facility] Comment on above: Performed By: #### 5 7021-8 ####CALE Roth ([id number])[facility] ([facility])[address]16 [place] [address] Monocytes (Bld) [#/Vol] 0.49 x10*3/uL Normal 0.10-1.00 [facility] Comment on above: Performed By: #### 5 7021-8 ####CALE Roth ([id number])[facility] ([facility])[address]237 [place] [address] Monocytes/100 WBC (Bld) 6.1 % Normal 2.0-10.0 [facility] Comment on above: Performed By: #### 5 7021-8 ####CALE Roth ([id number])[facility] ([facility])45166 [place] [address] Neutrophils (Bld) [#/Vol] 5.69 x10*3/uL Normal 1.20-7.70 [facility] Comment on above: Result Comment: Perc ent differential counts (%) should be interpreted in the context of the absolute cell counts (cells/uL). Performed By: #### 5 7021-8 ####CALE Roth (77402)[facility] ([facility])[address]903 [place] [address] Neutrophils/100 WBC (Bld) 71.1 % Normal 40.0-80.0 [facility] Comment on above: Performed By: #### 5 7021-8 ####CALE Roth ([id number])[facility] ([facility])[address]80 [place] [address] Nucleated RBC/100 WBC (Bld) [Ratio] 0.0 /100 WBCs Normal 0.0-0.0 [facility] Comment on above: Performed By: #### 5 7021-8 ####CALE Roth ([id number])[facility] ([facility])[address]40 [place] [address] Platelets (Bld) [#/Vol] 234 x10*3/uL Normal 150-450 [facility] Comment on above: Performed By: #### 5 7021-8 ####CALE Roth ([id number])[facility] ([facility])[address]63 [place] [address] RBC (Bld) [#/Vol] 3.12 x10*6/uL Low 4.00-5.20 [facility] Comment on above: Performed By: #### 5 7021-8 ####CALE Roth ([id number])[facility] ([facility])18548 [place] [address] WBC (Bld) [#/Vol] 8.0 x10*3/uL Normal 4.4-11.3 [facility] Comment on above: Performed By: #### 5 7021-8 ####CALE Roth ([id number])[facility] ([facility])[address] [place] [address] CT HEAD WO IV CONTRASTon CT HEAD WO IV CONTRAST Normal [facility] Calcium.ionizedon 03-26-2025 Calcium.ionized (Bld) [Moles/Vol] 1.20 mmol/L Normal 1.1-1.33 [facility] Comment on above: Result Comment: The performance characteristics of ionized calcium testedin heparinized plasma or serum have been [facility].Testing on heparinized plasma or serum is not approved by[facility] FDA; however, such approval is not necessary. Performed By: #### 1 994-3 ####CALE Roth ([id number])[facility] ([facility])[address]18 [place] [address] ESR Westergren method (Bld) [Velocity]on 03-26-2025 ESR (Bld) [Velocity] 33 mm/h High 0-20 [facility] Comment on above: Performed By: #### 4 537-7 ####CALE Roth ([id number])[facility] ([facility])[address] [place] [address] Glucose Test strip manual (B ld) [Mass/Vol]on 03-26-2025 Glucose [Mass/Vol] 128 mg/dL High 74-99 [facility] Comment on above: Performed By: #### 2 341-6 ####CALE Roth ([id number])[facility] ([facility])[address] [place] [address] Glucose [Mass/Vol] 124 mg/dL High 74-99 [facility] Comment on above: Performed By: #### 2 341-6 ####CALE Roth ([id number])[facility] ([facility])[address] [place] [address] 28440 Glucose [Mass/Vol] 113 mg/dL High 74-99 [facility] Comment on above: Performed By: #### 2 341-6 ####CALE Roth ([id number])[facility] ([facility])[address] [place] [address] Magnesiumon 03-26-2025 Magnesium [Mass/Vol] 1.82 mg/dL Normal 1.60-2.40 [facility] Comment on above: Performed By: #### 1 9123-9 ####CALE Roth ([id number])[facility] ([facility])[id number] [place] [address] [id number] Renal function 2000 panelon 03-26-2025 Albumin BCP dye [Mass/Vol] 3.6 g/dL Normal 3.4-5.0 [facility] Comment on above: Performed By: #### 2 4362-6 ####CALE RUTLEDGEER L ([id number])[facility] ([facility])[address] [place] [address] Anion gap [Moles/Vol] 12 mmol/L Normal 10-20 [facility] Comment on above: Performed By: #### 2 4362-6 ####CALE RUTLEDGEER L ([id number])[facility] ([facility])[address] [facility] [place] [address] Calcium [Mass/Vol] 8.8 mg/dL Normal 8.6-10.6 [facility] Comment on above: Performed By: #### 2 4362-6 ####CALE CAI L ([id number])[facility] ([facility])[address] [place] [address] Chloride [Moles/Vol] 103 mmol/L Normal 98-107 [facility] Comment on above: Performed By: #### 2 4362-6 ####CALE TOSCANOMOTZER L ([id number])[facility] ([facility])[address] [place] [address] CO2 [Moles/Vol] 27 mmol/L Normal 21-[address] [facility] Comment on above: Performed By: #### 2 4362-6 ####CALE TOSCANOMOTZER L ([id number])[facility] ([facility])[address] [facility] [place] [address] Creatinine [Mass/Vol] 0.24 mg/dL Low 0.50-1.05 [facility] Comment on above: Performed By: #### 2 4362-6 ####CALE TOSCANOMOTZER L ([id number])[facility] ([facility])[address] [place] [address] Glomerular filtration rate >90 Normal >60 [facility] Comment on above: Result Comment: Calc ulations of estimated GFR are performed using the 2020 CKD-EPI Study Refit equation without the race variable for the IDMS-Traceable creatinine methods.https://jasn.asnjournals.org/content//ASN .6431061629 Performed By: #### 2 4362-6 ####CALE Roth (52876)[facility] ([facility])[address] [place] [address] Glucose [Mass/Vol] 122 mg/dL High 74-99 [facility] Comment on above: Performed By: #### 2 4362-6 ####CALE Roth (86292)[facility] ([facility])[address]184 [place] [address] Phosphate [Mass/Vol] 2.3 mg/dL Low 2.5-4.9 [facility] Comment on above: Performed By: #### 2 4362-6 ####CALE Roth (36458)[facility] ([facility])[address] [place] [address] Potassium [Moles/Vol] 3.4 mmol/L Low 3.5-5.3 [facility] Comment on above: Performed By: #### 2 4362-6 ####CALE CAI L (44606)[facility] ([facility])[address] [place] [address] Sodium [Moles/Vol] 139 mmol/L Normal 136-145 [facility] Comment on above: Performed By: #### 2 4362-6 ####CALE Roth (67520)[facility] ([facility])[address] [place] [address] Urea nitrogen [Mass/Vol] 8 mg/dL Normal 6-23 [facility] Comment on above: Performed By: #### 2 4362-6 ####CALE CAI L ([id number])[facility] ([facility])[address] [place] [address] Thyrotropinon 03-26-2025 TSH Qn 3.32 m[IU]/L Normal 0.44-3.98 [facility] Comment on above: Order Comment: TSH t esting is performed using different testing methodology at [facility] than at other [facility]. Direct result comparisons should only be made within the same method. Performed By: #### 3 016-3 ####CALE Roth ([id number])[facility] ([facility])[address] [place] [address] Thyroxine.freeon 03-26-2025 Free T4 [Mass/Vol] 1.58 ng/dL High 0.78-1.48 [facility] Comment on above: Order Comment: Thyro xine Free testing is performed using different testing methodology at [facility] than at other [facility]. Direct result comparisons should only be made within the same method. Performed By: #### 3 024-7 ####CALE Roth ([id number])[facility] ([facility])[address] [place] [address] Triiodothyronine.freeon Free T3 [Mass/Vol] 2.8 pg/mL Normal 2.3-4.2 [facility] Comment on above: Performed By: #### 3 051-0 ####CALE Roth (52776)[facility] ([facility])[address] [place] [address] C reactive proteinon 025 CRP [Mass/Vol] 4.86 mg/dL High <1.00 [facility] Comment on above: Performed By: #### 1 988-5 ####CALE Roth (78949)[facility] ([facility])[address] [place] [address]35 CBC W Auto Differential pane l (Bld)on 03-25-2025 Basophils (Bld) [#/Vol] 0.02 x10*3/uL Normal 0.00-0.10 [facility] Comment on above: Performed By: #### 5 7021-8 ####CALE Roth ([id number])[facility] ([facility])[address] [place] [address] Basophils/100 WBC (Bld) 0.1 % Normal 0.0-2.0 [facility] Comment on above: Performed By: #### 5 7021-8 ####CALE Roth ([id number])[facility] ([facility])[address] [place] [address] Eosinophils (Bld) [#/Vol] 0.12 x10*3/uL Normal 0.00-0.70 [facility] Comment on above: Performed By: #### 5 7021-8 ####CALE Roth ([id number])[facility] ([facility])[address] [place] [address] Eosinophils/100 WBC (Bld) 0.9 % Normal 0.0-6.0 [facility] Comment on above: Performed By: #### 5 7021-8 ####CALE Roth (51218)[facility] ([facility])[address] [place] [address] 16170 Erythrocyte distribution width (RBC) [Ratio] 13.6 % Normal 11.5-14.5 [facility] Comment on above: Performed By: #### 5 7021-8 ####CALE Roth ([id number])[facility] ([facility])[address] [place] [address]53 Hematocrit (Bld) [Volume fraction] 30.3 % Low 36.0-46.0 [facility] Comment on above: Performed By: #### 5 7021-8 ####CALE Roth (24940)[facility] ([facility])[address] [place] [address] Hemoglobin (Bld) [Mass/Vol] 10.8 g/dL Low 12.0-16.0 [facility] Comment on above: Performed By: #### 5 7021-8 ####CALE Roth (39164)[facility] ([facility])[address] [place] [address] Immature granulocytes (Bld) [#/Vol] 0.16 x10*3/uL Normal 0.00-0.70 [facility] Comment on above: Performed By: #### 5 7021-8 ####CALE Roth ([id number])[facility] ([facility])[address] [place] [address] Immature granulocytes/100 WBC (Bld) 1.1 % High 0.0-0.9 [facility] Comment on above: Result Comment: Aleisha ture Granulocyte Count (IG) includes promyelocytes, myelocytes and metamyelocytes but does not include bands. Percent differential counts (%) should be interpreted in the context of the absolute cell counts (cells/UL). Performed By: #### 5 7021-8 ####CALE Roth (79396)[facility] ([facility])[address] [place] [address] Lymphocytes (Bld) [#/Vol] 1.36 x10*3/uL Normal 1.20-4.80 [facility] Comment on above: Performed By: #### 5 7021-8 ####CALE Roth ([id number])[facility] ([facility])[address] [place] [address] Lymphocytes/100 WBC (Bld) 9.8 % Normal 13.0-44.0 [facility] Comment on above: Performed By: #### 5 7021-8 ####CALE Roth (28093)[facility] ([facility])[address]34 [place] [address] MCH (RBC) [Entitic mass] 30.5 pg Normal 26.0-34.0 [facility] Comment on above: Performed By: #### 5 7021-8 ####CALE Roth (97934)[facility] ([facility])[address]876 [place] [address] MCHC (RBC) [Mass/Vol] 35.6 g/dL Normal 32.0-36.0 [facility] Comment on above: Performed By: #### 5 7021-8 ####CALE Roth (97049)[facility] ([facility])[address] [place] [address] MCV (RBC) [Entitic vol] 86 fL Normal 80-100 [facility] Comment on above: Performed By: #### 5 7021-8 ####CALE Roth (00271)[facility] ([facility])[address]446 [place] [address] Monocytes (Bld) [#/Vol] 0.95 x10*3/uL Normal 0.10-1.00 [facility] Comment on above: Performed By: #### 5 7021-8 ####CALE Roth (64473)[facility] ([facility])[address] [place] [address] Monocytes/100 WBC (Bld) 6.8 % Normal 2.0-10.0 [facility] Comment on above: Performed By: #### 5 7021-8 ####CALE Roth (45978)[facility] ([facility])[address] [place] [address] Neutrophils (Bld) [#/Vol] 11.31 x10*3/uL High 1.20-7.70 [facility] Comment on above: Result Comment: Perc ent differential counts (%) should be interpreted in the context of the absolute cell counts (cells/uL). Performed By: #### 5 7021-8 ####CALE Roth (46753)[facility] ([facility])[address]256 [place] [address] Neutrophils/100 WBC (Bld) 81.3 % Normal 40.0-80.0 [facility] Comment on above: Performed By: #### 5 7021-8 ####CALE Roth (36550)[facility] ([facility])[address]753 [place] [address] Nucleated RBC/100 WBC (Bld) [Ratio] 0.0 /100 WBCs Normal 0.0-0.0 [facility] Comment on above: Performed By: #### 5 7021-8 ####CALE Roth (07137)[facility] ([facility])[address]66 [place] [address] Platelets (Bld) [#/Vol] 282 x10*3/uL Normal 150-450 [facility] Comment on above: Performed By: #### 5 7021-8 ####CALE Roth (54048)[facility] ([facility])[address] [place] [address] RBC (Bld) [#/Vol] 3.54 x10*6/uL Low 4.00-5.20 [facility] Comment on above: Performed By: #### 5 7021-8 ####CALE Roth ([id number])[facility] ([facility])[address] [place] [address] WBC (Bld) [#/Vol] 13.9 x10*3/uL High 4.4-11.3 [facility] Comment on above: Performed By: #### 5 7021-8 ####CALE Roth ([id number])[facility] ([facility])[address] [place] [address] 45503 CBC panel Auto (Bld)on 03-25 Erythrocyte distribution width (RBC) [Ratio] 13.9 % Normal 11.5-14.5 [facility] Comment on above: Performed By: #### 5 8410-2 ####CALE Roth (74241)[facility] ([facility])[address] [place] [address] Hematocrit (Bld) [Volume fraction] 30.0 % Low 36.0-46.0 [facility] Comment on above: Performed By: #### 5 8410-2 ####CALE Roth (21421)[facility] ([facility])[address] [place] [address] Hemoglobin (Bld) [Mass/Vol] 10.6 g/dL Low 12.0-16.0 [facility] Comment on above: Performed By: #### 5 8410-2 ####CALE Roth (96453)[facility] ([facility])[address] [place] [address] MCH (RBC) [Entitic mass] 30.4 pg Normal 26.0-34.0 [facility] Comment on above: Performed By: #### 5 8410-2 ####CALE Roth (22793)[facility] ([facility])[address] [place] [address] MCHC (RBC) [Mass/Vol] 35.3 g/dL Normal 32.0-36.0 [facility] Comment on above: Performed By: #### 5 8410-2 ####CALE Roth (74834)[facility] ([facility])[address]43 [place] [address] MCV (RBC) [Entitic vol] 86 fL Normal 80-100 [facility] Comment on above: Performed By: #### 5 8410-2 ####CALE Roth (72694)[facility] ([facility])[address]96 [place] [address] Nucleated RBC/100 WBC (Bld) [Ratio] 0.0 /100 WBCs Normal 0.0-0.0 [facility] Comment on above: Performed By: #### 5 8410-2 ####CALE Roth (42979)[facility] ([facility])[address]45 [place] [address] Platelets (Bld) [#/Vol] 293 x10*3/uL Normal 150-450 [facility] Comment on above: Performed By: #### 5 8410-2 ####CALE Roth ([id number])[facility] ([facility])[address]896 [place] [address] RBC (Bld) [#/Vol] 3.49 x10*6/uL Low 4.00-5.20 [facility] Comment on above: Performed By: #### 5 8410-2 ####CALE CAI L (82482)[facility] ([facility])[address]57 [place] [address] WBC (Bld) [#/Vol] 13.2 x10*3/uL High 4.4-11.3 [facility] Comment on above: Performed By: #### 5 8410-2 ####CALE Roth (82438)[facility] ([facility])[address]48 [place] [address] Calcium.ionizedon 03-25-2025 Calcium.ionized (Bld) [Moles/Vol] 1.13 mmol/L Normal 1.1-1.33 [facility] Comment on above: Result Comment: The performance characteristics of ionized calcium testedin heparinized plasma or serum have [facility].Testing on heparinized plasma or serum is not approved by[facility] FDA; however, such approval is not necessary. Performed By: #### 1 994-3 ####CALE Roth (11900)[facility] ([facility])[address] [place] [address] 76751 Calcium.ionized (Bld) [Moles/Vol] 1.25 mmol/L Normal 1.1-1.33 [facility] Comment on above: Result Comment: The performance characteristics of ionized calcium testedin heparinized plasma or serum have been validated [facility].Testing on heparinized plasma or serum is not approved by[facility] FDA; however, such approval is not necessary. Performed By: #### 1 994-3 ####CALE Roth (31509)[facility] ([facility])[address] [place] [address] 08783 ECG 12-LEADon 03-25-2025 ECG 12-LEAD Ventricular Rate 130 Atrial Rate 130 P-R Interval 142 QRS Duration 76 Q-T Interval 292 QTC Calculation(Bazett) 429 P [place] 65 R [place] 95 T [place] -13 QRS Count 22 Q Onset 220 [...] Babin (957) on 03/26/2025 3:19:58 PM Normal [facility] ESR Westergren method (Bld) [Velocity]on 03-25-2025 ESR (Bld) [Velocity] 33 mm/h High 0-20 [facility] Comment on above: Performed By: #### 4 537-7 ####CALE Roth (84194)[facility] ([facility])[address] [place] [address] Gas and Carbon monoxide and Electrolytes panel (BldA)on 03-25-2025 Anion gap 4 (BldA) [Moles/Vol] 7 mmo/L Low 10-25 [facility] Comment on above: Performed By: #### 9 3685-6 ####CALE Roth (78231)[facility] ([facility])[address]86 [place] [address] Base excess Calc (Bld) [Moles/Vol] 3.1 mmol/L High -2.0-3.0 [facility] Comment on above: Performed By: #### 9 3685-6 ####CALE Roth (63933)[facility] ([facility])[address]24 [place] [address] Calcium.ionized (BldA) [Moles/Vol] 1.15 mmol/L Normal 1.10-1.33 [facility] Comment on above: Performed By: #### 9 3685-6 ####CALE Roth (53720)[facility] ([facility])[address]46 [place] [address] Chloride (BldA) [Moles/Vol] 109 mmol/L High 98-107 [facility] Comment on above: Performed By: #### 9 3685-6 ####CALE Roth (42034)[facility] ([facility])[address]37 [place] [address] CO2 (Bld) [Partial pressure] 36 mm Hg Low 38-42 [facility] Comment on above: Performed By: #### 9 3685-6 ####CALE Roth (14073)[facility] ([facility])[address]87 [place] [address] Glucose [Mass/Vol] 117 mg/dL High 74-99 [facility] Comment on above: Performed By: #### 9 7015-6 ####CALE Roth ([id number])[facility] ([facility])[address] [place] [address] 59338 HCO3 (Bld) [Moles/Vol] 26.8 mmol/L High 22.0-26.0 [facility] Comment on above: Performed By: #### 9 0395-6 ####CALE Roth ([id number])[facility] ([facility])[address] [place] [address] 59229 Hematocrit Est (Bld) [Volume fraction] 24.0 % Low 36.0-46.0 [facility] Comment on above: Performed By: #### 9 5025-6 ####CALE Roth ([id number])[facility] ([facility])[address] [place] [address] 47159 Hemoglobin (Bld) [Mass/Vol] 7.9 g/dL Low 12.0-16.0 [facility] Comment on above: Performed By: #### 9 2625-6 ####CALE Roth (97320)[facility] ([facility])[address] [place] [address] 66436 Inhaled oxygen concentration 21 % Normal [facility] Comment on above: Performed By: #### 9 9065-6 ####CALE Roth (92953)[facility] ([facility])[address] [place] [address] 43701 Lactate (BldA) [Moles/Vol] 0.8 mmol/L Normal 0.4-2.0 [facility] Comment on above: Performed By: #### 9 1035-6 ####CALE Roth (84917)[facility] ([facility])[address] [place] [address] 45682 Oxygen (Bld) [Partial pressure] 129 mm Hg High 85-95 [facility] Comment on above: Performed By: #### 9 4681-6 ####CALE Roth (13063)[facility] ([facility])[address]322 [place] [address] Oxyhemoglobin (BldA) [Mass fraction] 98.4 % High 94.0-98.0 [facility] Comment on above: Performed By: #### 9 3685-6 ####CALE Roth (72124)[facility] ([facility])[address]69 [place] [address] pH (Bld) 7.48 [pH] High 7.38-7.42 [facility] Comment on above: Performed By: #### 9 3685-6 ####CALE Roth (58315)[facility] ([facility])[address]690 [place] [address] Potassium (BldA) [Moles/Vol] 3.3 mmol/L Low 3.5-5.3 [facility] Comment on above: Performed By: #### 9 3685-6 ####CALE Roth (97451)[facility] ([facility])[address] [place] [address] Sodium (BldA) [Moles/Vol] 139 mmol/L Normal 136-145 [facility] Comment on above: Performed By: #### 9 3685-6 ####CALE Roth (23190)[facility] ([facility])[address] [place] [address] Glucose Test strip manual (B ld) [Mass/Vol]on 03-25-2025 Glucose [Mass/Vol] 112 mg/dL High 74-99 [facility] Comment on above: Performed By: #### 2 341-6 ####CALE Roth (04877)[facility] ([facility])[address]272 [place] [address] Glucose [Mass/Vol] 117 mg/dL High 74-99 [facility] Comment on above: Performed By: #### 2 341-6 ####CALE Roth (44792)[facility] ([facility])[address] [place] [address] 11695 Glucose [Mass/Vol] 112 mg/dL High 74-99 [facility] Comment on above: Performed By: #### 2 341-6 ####CALE Roth (13457)[facility] ([facility])10786 [place] [address] Glucose [Mass/Vol] 93 mg/dL Normal 74-99 [facility] Comment on above: Performed By: #### 2 341-6 ####CALE Roth ([id number])[facility] ([facility])[address]34 [place] [address] Lactateon 03-25-2025 Lactate [Moles/Vol] 0.6 mmol/L Normal 0.4-2.0 [facility] Comment on above: Order Comment: Venip uncture immediately after or during the administration of Metamizole may lead to falsely low results. Testing should be performed immediately prior to Metamizole dosing. Performed By: #### 2 524-7 ####CALE Roth (19656)[facility] ([facility])[address]154 [place] [address] Magnesiumon 03-25-2025 Magnesium [Mass/Vol] 1.87 mg/dL Normal 1.60-2.40 [facility] Comment on above: Performed By: #### 1 9123-9 ####CALE Roth (83359)[facility] ([facility])[address]97 [place] [address] Magnesium [Mass/Vol] 2.00 mg/dL Normal 1.60-2.40 [facility] Comment on above: Performed By: #### 1 9123-9 ####CALE Roth (55053)[facility] ([facility])[address]757 [place] [address] Renal function 2000 panelon 03-25-2025 Albumin BCP dye [Mass/Vol] 4.0 g/dL Normal 3.4-5.0 [facility] Comment on above: Performed By: #### 2 4362-6 ####CALE Roth ([id number])[facility] ([facility])[address]690 [place] [address] Anion gap [Moles/Vol] 12 mmol/L Normal 10-20 [facility] Comment on above: Performed By: #### 2 4362-6 ####CALE Roth (70837)[facility] ([facility])[address]67 [place] [address] Calcium [Mass/Vol] 9.1 mg/dL Normal 8.6-10.6 [facility] Comment on above: Performed By: #### 2 4362-6 ####CALE Roth (19906)[facility] ([facility])[address]408 [place] [address] Chloride [Moles/Vol] 102 mmol/L Normal 98-107 [facility] Comment on above: Performed By: #### 2 4362-6 ####CALE Roth (27654)[facility] ([facility])[address]39 [place] [address] CO2 [Moles/Vol] 26 mmol/L Normal 21-[address] [facility] Comment on above: Performed By: #### 2 4362-6 ####CALE Roth (12524)[facility] ([facility])[address]337 [place] [address] Creatinine [Mass/Vol] 0.28 mg/dL Low 0.50-1.05 [facility] Comment on above: Performed By: #### 2 4362-6 ####CALE Roth (51194)[facility] ([facility])[address]19 [place] [address] Glomerular filtration rate >90 Normal >60 [facility] Comment on above: Result Comment: Calc ulations of estimated GFR are performed using the 2020 CKD-EPI Study Refit equation without the race variable for the IDMS-Traceable creatinine methods.https://jasn.asnjournals.org/content//ASN .4227010533 Performed By: #### 2 4362-6 ####CALE Roth ([id number])[facility] ([facility])[address]650 [place] [address] Glucose [Mass/Vol] 130 mg/dL High 74-99 [facility] Comment on above: Performed By: #### 2 4362-6 ####CALE Roth ([id number])[facility] ([facility])[address]33 [place] [address] Phosphate [Mass/Vol] 2.3 mg/dL Low 2.5-4.9 [facility] Comment on above: Performed By: #### 2 4362-6 ####CALE Roth (29238)[facility] ([facility])[address]103 [place] [address] Potassium [Moles/Vol] 3.9 mmol/L Normal 3.5-5.3 [facility] Comment on above: Performed By: #### 2 4362-6 ####CALE Roth (67472)[facility] ([facility])[address]65 [place] [address] Sodium [Moles/Vol] 136 mmol/L Normal 136-145 [facility] Comment on above: Performed By: #### 2 4362-6 ####CALE Roth (38461)[facility] ([facility])[address]104 [place] [address] Urea nitrogen [Mass/Vol] 6 mg/dL Normal 6-23 [facility] Comment on above: Performed By: #### 2 4362-6 ####CALE Roth (54220)[facility] ([facility])[address]329 [place] [address] Albumin BCP dye [Mass/Vol] 4.0 g/dL Normal 3.4-5.0 [facility] Comment on above: Performed By: #### 2 4362-6 ####CALE Roth ([id number])[facility] ([facility])[address]45 [place] [address] Anion gap [Moles/Vol] 14 mmol/L Normal 10-20 [facility] Comment on above: Performed By: #### 2 4362-6 ####CALE RUTLEDGEER L (54919)[facility] ([facility])[address]654 [place] [address] Calcium [Mass/Vol] 9.4 mg/dL Normal 8.6-10.6 [facility] Comment on above: Performed By: #### 2 4362-6 ####CALE TOSCANOMOTZER L (49159)[facility] ([facility])[address]653 [place] [address] Chloride [Moles/Vol] 100 mmol/L Normal 98-107 [facility] Comment on above: Performed By: #### 2 4362-6 ####CALE TOSCANOMOTZER L (16469)[facility] ([facility])[address]36 [place] [address] CO2 [Moles/Vol] 26 mmol/L Normal 21-[address] [facility] Comment on above: Performed By: #### 2 4362-6 ####CALE CAI L ([id number])[facility] ([facility])[address] [place] [address] Creatinine [Mass/Vol] 0.36 mg/dL Low 0.50-1.05 [facility] Comment on above: Performed By: #### 2 4362-6 ####CALE PARKERTZER L ([id number])[facility] ([facility])[address] [place] [address] Glomerular filtration rate >90 Normal >60 [facility] Comment on above: Result Comment: Calc ulations of estimated GFR are performed using the 2020 CKD-EPI Study Refit equation without the race variable for the IDMS-Traceable creatinine methods.https://jasn.asnjournals.org/content//ASN .[email or web address] Performed By: #### 2 4362-6 ####CALE TOSCANOMOTZER L ([id number])[facility] ([facility])[address] [place] [address] Glucose [Mass/Vol] 115 mg/dL High 74-99 [facility] Comment on above: Performed By: #### 2 4362-6 ####CALE Roth ([id number])[facility] ([facility])[address] [place] [address] Phosphate [Mass/Vol] 3.1 mg/dL Normal 2.5-4.9 [facility] Comment on above: Performed By: #### 2 4362-6 ####CALE Roth ([id number])[facility] ([facility])[id number] [place] [id number] Potassium [Moles/Vol] 3.6 mmol/L Normal 3.5-5.3 [facility] Comment on above: Performed By: #### 2 4362-6 ####CALE Roth ([id number])[facility] ([facility])[id number] [place] [address] Sodium [Moles/Vol] 136 mmol/L Normal 136-145 [facility] Comment on above: Performed By: #### 2 4362-6 ####CALE Roth ([id number])[facility] ([facility])[address] [place] [address] 79630 Urea nitrogen [Mass/Vol] 8 mg/dL Normal 6-23 [facility] Comment on above: Performed By: #### 2 4362-6 ####CALE Roth ([id number])[facility] ([facility])[address] [place] [address] 92599 Thyrotropinon 03-25-2025 TSH Qn 4.56 m[IU]/L High 0.44-3.98 [facility] Comment on above: Order Comment: TSH t esting is performed using different testing methodology at [facility] than at other [facility]. Direct result comparisons should only be made within the same method. Performed By: #### 3 016-3 ####CALE Roth ([id number])[facility] ([facility])[address] [place] [address] 21407 Thyroxine.freeon 03-25-2025 Free T4 [Mass/Vol] 1.51 ng/dL High 0.78-1.48 [facility] Comment on above: Order Comment: Thyro xine Free testing is performed using different testing methodology at [facility] than at [facility]. Direct result comparisons should only be made within the same method. Performed By: #### 3 024-7 ####CALE Roth ([id number])[facility] ([facility])[address] [place] [address] Triiodothyronine.freeon Free T3 [Mass/Vol] 2.8 pg/mL Normal 2.3-4.2 [facility] Comment on above: Performed By: #### 3 051-0 ####CALE Roth ([id number])[facility] ([facility])[address] [place] [address] 17514 Troponin I.cardiac panelon 1 Tropinin I.cardiac panel High sensitivity method <3 Normal 0-34 [facility] Comment on above: Order Comment: Less [...] is performed using a differenttesting methodology at [facility] than at [facility]. Direct result comparisons should onlybe made within the same method. Performed By: #### 8 9577-1 ####CALE Roth ([id number])[facility] ([facility])[address] [place] [address] XR ABDOMEN 1 VIEWon 03-25-20 25 XR ABDOMEN 1 VIEW Normal [facility] CBC W Auto Differential pane l (Bld)on 03-24-2025 Basophils (Bld) [#/Vol] 0.04 x10*3/uL Normal 0.00-0.10 [facility] Comment on above: Performed By: #### 5 7021-8 ####CALE Roth ([id number])[facility] ([facility])[address] [place] [address] 60702 Basophils/100 WBC (Bld) 0.3 % Normal 0.0-2.0 [facility] Comment on above: Performed By: #### 5 7021-8 ####CALE Roth ([id number])[facility] ([facility])[address] [place] [address] 67898 Eosinophils (Bld) [#/Vol] 0.11 x10*3/uL Normal 0.00-0.70 [facility] Comment on above: Performed By: #### 5 7021-8 ####CALE CAI L ([id number])[facility] ([facility])[address] [place] [address] 27451 Eosinophils/100 WBC (Bld) 0.7 % Normal 0.0-6.0 [facility] Comment on above: Performed By: #### 5 7021-8 ####CALE Roth ([id number])[facility] ([facility])[address] [place] [address] 42262 Erythrocyte distribution width (RBC) [Ratio] 13.8 % Normal 11.5-14.5 [facility] Comment on above: Performed By: #### 5 7021-8 ####CALE Roth ([id number])[facility] ([facility])[address] [place] [address] 73013 Hematocrit (Bld) [Volume fraction] 30.7 % Low 36.0-46.0 [facility] Comment on above: Performed By: #### 5 7021-8 ####CALE CAI L ([id number])[facility] ([facility])[address] [place] [address] Hemoglobin (Bld) [Mass/Vol] 10.6 g/dL Low 12.0-16.0 [facility] Comment on above: Performed By: #### 5 7021-8 ####CALE Roth ([id number])[facility] ([facility])[address] [place] [address] Immature granulocytes (Bld) [#/Vol] 0.35 x10*3/uL Normal 0.00-0.70 [facility] Comment on above: Performed By: #### 5 7021-8 ####CALE Roth ([id number])[facility] ([facility])[address] [place] [address] Immature granulocytes/100 WBC (Bld) 2.3 % High 0.0-0.9 [facility] Comment on above: Result Comment: Aleisha ture Granulocyte Count (IG) includes promyelocytes, myelocytes and metamyelocytes but does not include bands. Percent differential counts (%) should be interpreted in the context of the absolute cell counts (cells/UL). Performed By: #### 5 7021-8 ####CALE Roth ([id number])[facility] ([facility])[address]257 [place] [address] Lymphocytes (Bld) [#/Vol] 2.10 x10*3/uL Normal 1.20-4.80 [facility] Comment on above: Performed By: #### 5 7021-8 ####CALE Roth ([id number])[facility] ([facility])[address]752 [place] [address] Lymphocytes/100 WBC (Bld) 13.7 % Normal 13.0-44.0 [facility] Comment on above: Performed By: #### 5 7021-8 ####CALE Roth ([id number])[facility] ([facility])[address] [place] [address] MCH (RBC) [Entitic mass] 30.7 pg Normal 26.0-34.0 [facility] Comment on above: Performed By: #### 5 7021-8 ####CALE Roth ([id number])[facility] ([facility])[address]76 [place] [address] MCHC (RBC) [Mass/Vol] 34.5 g/dL Normal 32.0-36.0 [facility] Comment on above: Performed By: #### 5 7021-8 ####CALE CAI L ([id number])[facility] ([facility])[address]604 [place] [address] MCV (RBC) [Entitic vol] 89 fL Normal 80-100 [facility] Comment on above: Performed By: #### 5 7021-8 ####CALE Roth ([id number])[facility] ([facility])[address]38 [place] [address] Monocytes (Bld) [#/Vol] 0.98 x10*3/uL Normal 0.10-1.00 [facility] Comment on above: Performed By: #### 5 7021-8 ####CALE CAI L ([id number])[facility] ([facility])[address] [place] [address] Monocytes/100 WBC (Bld) 6.4 % Normal 2.0-10.0 [facility] Comment on above: Performed By: #### 5 7021-8 ####CALE TOSCANOMOISAURA L ([id number])[facility] ([facility])[address] [place] [address] Neutrophils (Bld) [#/Vol] 11.77 x10*3/uL High 1.20-7.70 [facility] Comment on above: Result Comment: Perc ent differential counts (%) should be interpreted in the context of the absolute cell counts (cells/uL). Performed By: #### 5 7021-8 ####CALE TOSCANOMOTZGONZALEZ L ([id number])[facility] ([facility])[address]247 [place] [address] Neutrophils/100 WBC (Bld) 76.6 % Normal 40.0-80.0 [facility] Comment on above: Performed By: #### 5 7021-8 ####CALE Roth ([id number])[facility] ([facility])[address]68 [place] [address] Nucleated RBC/100 WBC (Bld) [Ratio] 0.0 /100 WBCs Normal 0.0-0.0 [facility] Comment on above: Performed By: #### 5 7021-8 ####CALE Roth ([id number])[facility] ([facility])[address] [place] [address] 03294 Platelets (Bld) [#/Vol] 405 x10*3/uL Normal 150-450 [facility] Comment on above: Performed By: #### 5 7021-8 ####CALE Roth ([id number])[facility] ([facility])[address] [place] [address] 56984 RBC (Bld) [#/Vol] 3.45 x10*6/uL Low 4.00-5.20 [facility] Comment on above: Performed By: #### 5 7021-8 ####CALE Roth ([id number])[facility] ([facility])[address] [place] [address] 04366 WBC (Bld) [#/Vol] 15.4 x10*3/uL High 4.4-11.3 [facility] Comment on above: Performed By: #### 5 7021-8 ####CALE Roth ([id number])[facility] ([facility])[address] [place] [address] HEAD WO IV CONTRASTon CT HEAD WO IV CONTRAST Normal [facility] Calcium.ionizedon 03-24-2025 Calcium.ionized (Bld) [Moles/Vol] 1.20 mmol/L Normal 1.1-1.33 [facility] Comment on above: Result Comment: The performance characteristics of ionized calcium testedin heparinized plasma or serum have been [facility] where [facility].Testing on heparinized plasma or serum is not approved bythe FDA; however, such approval is not necessary. Performed By: #### 1 994-3 ####CALE Roth ([id number])[facility] ([facility])[address]24 [place] [address] Glucose Test strip manual (B ld) [Mass/Vol]on 03-24-2025 Glucose [Mass/Vol] 139 mg/dL High [address] [place] [address] Comment on above: Performed By: #### 2 341-6 ####CALE Roth ([id number])[facility] ([facility])[address]552 [place] [address] Glucose [Mass/Vol] 130 mg/dL High [address] [place] [address] Comment on above: Performed By: #### 2 341-6 ####CALE Roth ([id number])[facility] ([facility])[address] [place] [address] 24664 Glucose [Mass/Vol] 104 mg/dL High [address] [place] [address] Comment on above: Performed By: #### 2 341-6 ####CALE Roth ([id number])[facility] ([facility])[address]388 [place] [address] Glucose [Mass/Vol] 134 mg/dL High [address] [place] [address] Comment on above: Performed By: #### 2 341-6 ####CALE Roth ([id number])[facility] ([facility])[address]58 [place] [address] Magnesiumon 03-24-2025 Magnesium [Mass/Vol] 1.84 mg/dL Normal 1.60-2.40 [facility] Comment on above: Performed By: #### 1 9123-9 ####CALE Roth ([id number])[facility] ([facility])[address]05 [place] [address] Procalcitoninon 03-24-2025 Procalcitonin [Mass/Vol] 0.03 ng/mL Normal <=0.07 [facility] Comment on above: Order Comment: Proca [...] Performed By: #### 3 3959-8 ####CALE Roth ([id number])[facility] ([facility])[address]97 [place] [address] Renal function 2000 panelon 03-24-2025 Albumin BCP dye [Mass/Vol] 4.0 g/dL Normal 3.4-5.0 [facility] Comment on above: Performed By: #### 2 4362-6 ####CALE Roth ([id number])[facility] ([facility])[address]05 [place] [address] Anion gap [Moles/Vol] 14 mmol/L Normal 10-20 [facility] Comment on above: Performed By: #### 2 4362-6 ####CALE Roth ([id number])[facility] ([facility])[address]81 [place] [address] Calcium [Mass/Vol] 9.1 mg/dL Normal 8.6-10.6 [facility] Comment on above: Performed By: #### 2 4362-6 ####CALE Roth ([id number])[facility] ([facility])[address] [place] [address] Chloride [Moles/Vol] 104 mmol/L Normal 98-107 [facility] Comment on above: Performed By: #### 2 4362-6 ####CALE CAI L (79058)[facility] ([facility])[address]352 [place] [address] CO2 [Moles/Vol] 26 mmol/L Normal 21-[address] [facility] Comment on above: Performed By: #### 2 4362-6 ####CALE Roth ([id number])[facility] ([facility])[address]266 [place] [address] Creatinine [Mass/Vol] 0.26 mg/dL Low 0.50-1.05 [facility] Comment on above: Performed By: #### 2 4362-6 ####CALE Roth ([id number])[facility] ([facility])[address]13 [place] [address] Glomerular filtration rate >90 Normal >60 [facility] Comment on above: Result Comment: Calc ulations of estimated GFR are performed using the 2020 CKD-EPI Study Refit equation without the race variable for the IDMS-Traceable creatinine methods.https://jasn.asnjournals.org/content//ASN .6399435099 Performed By: #### 2 4362-6 ####CALE Roth ([id number])[facility] ([facility])[address]59 [place] [address] Glucose [Mass/Vol] 109 mg/dL High 74-99 [facility] Comment on above: Performed By: #### 2 4362-6 ####CALE CAI L ([id number])[facility] ([facility])[address]49 [place] [address] Phosphate [Mass/Vol] 2.3 mg/dL Low 2.5-4.9 [facility] Comment on above: Performed By: #### 2 4362-6 ####CALE Roth ([id number])[facility] ([facility])[address]66 [place] [address] Potassium [Moles/Vol] 3.5 mmol/L Normal 3.5-5.3 [facility] Comment on above: Performed By: #### 2 4362-6 ####CALE Roth (42036)[facility] ([facility])[address]14 [place] [address] Sodium [Moles/Vol] 140 mmol/L Normal 136-145 [facility] Comment on above: Performed By: #### 2 4362-6 ####CALE Roth (82760)[facility] ([facility])[address]494 [place] [address] Urea nitrogen [Mass/Vol] 7 mg/dL Normal 6-23 [facility] Comment on above: Performed By: #### 2 4362-6 ####CALE Roth ([id number])[facility] ([facility])[address]87 [place] [address] Albumin BCP dye [Mass/Vol] 3.9 g/dL Normal 3.4-5.0 [facility] Comment on above: Performed By: #### 2 4362-6 ####CALE Roth ([id number])[facility] ([facility])[address]54 [place] [address] Anion gap [Moles/Vol] 10 mmol/L Normal 10-20 [facility] Comment on above: Performed By: #### 2 4362-6 ####CALE Roth (13991)[facility] ([facility])[address]269 [place] [address] Calcium [Mass/Vol] 9.2 mg/dL Normal 8.6-10.6 [facility] Comment on above: Performed By: #### 2 4362-6 ####CALE Roth (00554)[facility] ([facility])[address]99 [place] [address] Chloride [Moles/Vol] 100 mmol/L Normal 98-107 [facility] Comment on above: Performed By: #### 2 4362-6 ####CALE Roth (55117)[facility] ([facility])[address] [place] [address] CO2 [Moles/Vol] 29 mmol/L Normal 21-[address] [facility] Comment on above: Performed By: #### 2 4362-6 ####CALE Roth (56132)[facility] ([facility])[address]243 [place] [address] Creatinine [Mass/Vol] 0.32 mg/dL Low 0.50-1.05 [facility] Comment on above: Performed By: #### 2 4362-6 ####CALE Roth ([id number])[facility] ([facility])[address]889 [place] [address] Glomerular filtration rate >90 Normal >60 [facility] Comment on above: Result Comment: Calc ulations of estimated GFR are performed using the 2020 CKD-EPI Study Refit equation without the race variable for the IDMS-Traceable creatinine methods.https://jasn.asnjournals.org/content/early/ASN .6578485342 Performed By: #### 2 4362-6 ####CALE Roth ([id number])[facility] ([facility])[address]41 [place] [address] Glucose [Mass/Vol] 121 mg/dL High 74-99 [facility] Comment on above: Performed By: #### 2 4362-6 ####CALE Roth (79513)[facility] ([facility])[address]80 [place] [address] Phosphate [Mass/Vol] 2.4 mg/dL Low 2.5-4.9 [facility] Comment on above: Performed By: #### 2 4362-6 ####CALE Roth ([id number])[facility] ([facility])[address]67 [place] [address] Potassium [Moles/Vol] 3.1 mmol/L Low 3.5-5.3 [facility] Comment on above: Performed By: #### 2 4362-6 ####CALE Roth (84455)[facility] ([facility])[address]28 [place] [address] Sodium [Moles/Vol] 136 mmol/L Normal 136-145 [facility] Comment on above: Performed By: #### 2 4362-6 ####CALE Roth (24325)[facility] ([facility])[address]508 [place] [address] Urea nitrogen [Mass/Vol] 12 mg/dL Normal 6-23 [facility] Comment on above: Performed By: #### 2 4362-6 ####CALE Roth (95902)[facility] ([facility])[address] [place] [address] 34608 XR ABDOMEN 1 VIEWon 03-24-20 XR ABDOMEN 1 VIEW Normal [facility] CBC W Auto Differential pane l (Bld)on 03-23-2025 Basophils (Bld) [#/Vol] 0.04 x10*3/uL Normal 0.00-0.10 [facility] Comment on above: Performed By: #### 5 7021-8 ####CALE Roth ([id number])[facility] ([facility])[address]19 [place] [address] Basophils/100 WBC (Bld) 0.3 % Normal 0.0-2.0 [facility] Comment on above: Performed By: #### 5 7021-8 ####CALE Roth ([id number])[facility] ([facility])[address] [place] [address] 93149 Eosinophils (Bld) [#/Vol] 0.00 x10*3/uL Normal 0.00-0.70 [facility] Comment on above: Performed By: #### 5 7021-8 ####CALE Roth ([id number])[facility] ([facility])[address]375 [place] [address] Eosinophils/100 WBC (Bld) 0.0 % Normal 0.0-6.0 [facility] Comment on above: Performed By: #### 5 7021-8 ####CALE Roth ([id number])[facility] ([facility])23697 [place] [address] Erythrocyte distribution width (RBC) [Ratio] 13.4 % Normal 11.5-14.5 [facility] Comment on above: Performed By: #### 5 7021-8 ####CALE Roth ([id number])[facility] ([facility])[address] [place] [address] 86180 Hematocrit (Bld) [Volume fraction] 32.6 % Low 36.0-46.0 [facility] Comment on above: Performed By: #### 5 7021-8 ####CALE Roth ([id number])[facility] ([facility])34254 [place] [address] Hemoglobin (Bld) [Mass/Vol] 11.2 g/dL Low 12.0-16.0 [facility] Comment on above: Performed By: #### 5 7021-8 ####CALE Roth (05031)[facility] ([facility])[address]209 [place] [address] Immature granulocytes (Bld) [#/Vol] 0.63 x10*3/uL Normal 0.00-0.70 [facility] Comment on above: Performed By: #### 5 7021-8 ####CALE Roth ([id number])[facility] ([facility])[address] [place] [address] 87101 Immature granulocytes/100 WBC (Bld) 4.5 % High 0.0-0.9 [facility] Comment on above: Result Comment: Aleisha ture Granulocyte Count (IG) includes promyelocytes, myelocytes and metamyelocytes but does not include bands. Percent differential counts (%) should be interpreted in the context of the absolute cell counts (cells/UL). Performed By: #### 5 7021-8 ####CALE Roth ([id number])[facility] ([facility])[address]503 [place] [address] Lymphocytes (Bld) [#/Vol] 1.44 x10*3/uL Normal 1.20-4.80 [facility] Comment on above: Performed By: #### 5 7021-8 ####CALE Roth ([id number])[facility] ([facility])[address]95 [place] [address] Lymphocytes/100 WBC (Bld) 10.3 % Normal 13.0-44.0 [facility] Comment on above: Performed By: #### 5 7021-8 ####CALE Roth ([id number])[facility] ([facility])[address]63 [place] [address] MCH (RBC) [Entitic mass] 30.4 pg Normal 26.0-34.0 [facility] Comment on above: Performed By: #### 5 7021-8 ####CALE Roth ([id number])[facility] ([facility])[address]888 [place] [address] MCHC (RBC) [Mass/Vol] 34.4 g/dL Normal 32.0-36.0 [facility] Comment on above: Performed By: #### 5 7021-8 ####CALE Roth ([id number])[facility] ([facility])[address]48 [place] [address] MCV (RBC) [Entitic vol] 88 fL Normal 80-100 [facility] Comment on above: Performed By: #### 5 7021-8 ####CALE Roth (90725)[facility] ([facility])[address]771 [place] [address] Monocytes (Bld) [#/Vol] 0.86 x10*3/uL Normal 0.10-1.00 [facility] Comment on above: Performed By: #### 5 7021-8 ####CALE Roth (48496)[facility] ([facility])[address]21 [place] [address] Monocytes/100 WBC (Bld) 6.2 % Normal 2.0-10.0 [facility] Comment on above: Performed By: #### 5 7021-8 ####CALE Roth ([id number])[facility] ([facility])[address]50 [place] [address] Neutrophils (Bld) [#/Vol] 11.00 x10*3/uL High 1.20-7.70 [facility] Comment on above: Result Comment: Perc ent differential counts (%) should be interpreted in the context of the absolute cell counts (cells/uL). Performed By: #### 5 7021-8 ####CALE Roth ([id number])[facility] ([facility])[address]10 [place] [address] Neutrophils/100 WBC (Bld) 78.7 % Normal 40.0-80.0 [facility] Comment on above: Performed By: #### 5 7021-8 ####CALE Roth (80175)[facility] ([facility])[address]763 [place] [address] Nucleated RBC/100 WBC (Bld) [Ratio] 0.0 /100 WBCs Normal 0.0-0.0 [facility] Comment on above: Performed By: #### 5 7021-8 ####CALE Roth (95599)[facility] ([facility])[address]196 [place] [address] Platelets (Bld) [#/Vol] 388 x10*3/uL Normal 150-450 [facility] Comment on above: Performed By: #### 5 7021-8 ####CALE Roth (05689)[facility] ([facility])[address]47 [place] [address] RBC (Bld) [#/Vol] 3.69 x10*6/uL Low 4.00-5.20 [facility] Comment on above: Performed By: #### 5 7021-8 ####CALE Roth ([id number])[facility] ([facility])[address]15 [place] [address] WBC (Bld) [#/Vol] 14.0 x10*3/uL High 4.4-11.3 [facility] Comment on above: Performed By: #### 5 7021-8 ####CALE Roth (49209)[facility] ([facility])[address] [place] [address] HEAD WO IV CONTRASTon CT HEAD WO IV CONTRAST Normal [facility] Calcium.ionizedon 03-23-2025 Calcium.ionized (Bld) [Moles/Vol] 1.21 mmol/L Normal 1.1-1.33 [facility] Comment on above: Result Comment: The performance characteristics of ionized calcium testedin heparinized plasma or serum have [facility].Testing on heparinized plasma or serum is not approved bythe FDA; however, such approval is not necessary. Performed By: #### 1 994-3 ####CALE Roth (21106)[facility] ([facility])[address] [place] [address] Glucose Test strip manual (B ld) [Mass/Vol]on 03-23-2025 Glucose [Mass/Vol] 112 mg/dL High 74-99 [facility] Comment on above: Performed By: #### 2 341-6 ####CALE Roth ([id number])[facility] ([facility])[address]288 [place] [address] Glucose [Mass/Vol] 99 mg/dL Normal 74-99 [facility] Comment on above: Performed By: #### 2 341-6 ####CALE Roth (50396)[facility] ([facility])[address]64 [place] [address] Glucose [Mass/Vol] 101 mg/dL High 74-99 [facility] Comment on above: Performed By: #### 2 341-6 ####CALE Roth ([id number])[facility] ([facility])[address]99 [place] [address] Glucose [Mass/Vol] 110 mg/dL High 74-99 [facility] Comment on above: Performed By: #### 2 341-6 ####CALE Roth ([id number])[facility] ([facility])[address] [place] [address] Glucose [Mass/Vol] 105 mg/dL High 74-99 [facility] Comment on above: Performed By: #### 2 341-6 ####CALE Roth ([id number])[facility] ([facility])[address] [place] [address] Magnesiumon 03-23-2025 Magnesium [Mass/Vol] 1.86 mg/dL Normal 1.60-2.40 [facility] Comment on above: Performed By: #### 1 9123-9 ####CALE Roth ([id number])[facility] ([facility])[address] [place] [address] Renal function 2000 panelon 03-23-2025 Albumin BCP dye [Mass/Vol] 4.0 g/dL Normal 3.4-5.0 [facility] Comment on above: Performed By: #### 2 4362-6 ####CALE Roth ([id number])[facility] ([facility])[address] [place] [address] Anion gap [Moles/Vol] 14 mmol/L Normal 10-20 [facility] Comment on above: Performed By: #### 2 4362-6 ####CALE Roth ([id number])[facility] ([facility])[address] [place] [address] Calcium [Mass/Vol] 9.5 mg/dL Normal 8.6-10.6 [facility] Comment on above: Performed By: #### 2 4362-6 ####CALE Roth ([id number])[facility] ([facility])[address] [place] [address] Chloride [Moles/Vol] 99 mmol/L Normal 98-107 [facility] [facility] Comment on above: Performed By: #### 2 4362-6 ####CALE Roth ([id number])[facility] ([facility])[address] [place] [address] CO2 [Moles/Vol] 27 mmol/L Normal 21-[address] [facility] Comment on above: Performed By: #### 2 4362-6 ####CALE Roth ([id number])[facility] ([facility])[address] [place] [address] Creatinine [Mass/Vol] 0.39 mg/dL Low 0.50-1.05 [facility] Comment on above: Performed By: #### 2 4362-6 ####CALE Roth ([id number])[facility] ([facility])[address] [place] [address] Glomerular filtration rate >90 Normal >60 [facility] Comment on above: Result Comment: Calc ulations of estimated GFR are performed using the 2020 CKD-EPI Study Refit equation without the race variable for the IDMS-Traceable creatinine methods.https://jasn.asnjournals.org/content/early/ASN .0997564727 Performed By: #### 2 4362-6 ####CALE Roth ([id number])[facility] ([facility])[address]190 [place] [address] Glucose [Mass/Vol] 132 mg/dL High 74-99 [facility] Comment on above: Performed By: #### 2 4362-6 ####CALE Roth ([id number])[facility] ([facility])[address] [place] [address] Phosphate [Mass/Vol] 3.7 mg/dL Normal 2.5-4.9 [facility] Comment on above: Performed By: #### 2 4362-6 ####CALE Roth ([id number])[facility] ([facility])[address] [place] [address] Potassium [Moles/Vol] 4.1 mmol/L Normal 3.5-5.3 [facility] Comment on above: Performed By: #### 2 4362-6 ####CALE Roth ([id number])[facility] ([facility])[address] [place] [address] Sodium [Moles/Vol] 136 mmol/L Normal 136-145 [facility] Comment on above: Performed By: #### 2 4362-6 ####CALE Roth ([id number])[facility] ([facility])[address] [place] [address] Urea nitrogen [Mass/Vol] 15 mg/dL Normal 6-23 [facility] Comment on above: Performed By: #### 2 4362-6 ####CALE Roth ([id number])[facility] ([facility])[address] [place] [address] CBC W Auto Differential pane l (Bld)on 03-22-2025 Basophils (Bld) [#/Vol] 0.04 x10*3/uL Normal 0.00-0.10 [facility] Comment on above: Performed By: #### 5 7021-8 ####CALE Roth ([id number])[facility] ([facility])[address] [place] [address] Basophils/100 WBC (Bld) 0.5 % Normal 0.0-2.0 [facility] Comment on above: Performed By: #### 5 7021-8 ####CALE Roth ([id number])[facility] ([facility])[address] [place] [address] Eosinophils (Bld) [#/Vol] 0.01 x10*3/uL Normal 0.00-0.70 [facility] Comment on above: Performed By: #### 5 7021-8 ####CALE Roth ([id number])[facility] ([facility])[address]90 [place] [address] Eosinophils/100 WBC (Bld) 0.1 % Normal 0.0-6.0 [facility] Comment on above: Performed By: #### 5 7021-8 ####CALE Roth ([id number])[facility] ([facility])[address] [place] [address] Erythrocyte distribution width (RBC) [Ratio] 13.2 % Normal 11.5-14.5 [facility] Comment on above: Performed By: #### 5 7021-8 ####CALE Roth ([id number])[facility] ([facility])[address] [place] [address] Hematocrit (Bld) [Volume fraction] 34.5 % Low 36.0-46.0 [facility] Comment on above: Performed By: #### 5 7021-8 ####CALE Roth ([id number])[facility] ([facility])[address] [place] [address] Hemoglobin (Bld) [Mass/Vol] 11.8 g/dL Low 12.0-16.0 [facility] Comment on above: Performed By: #### 5 7021-8 ####CALE Roth ([id number])[facility] ([facility])[address] [place] [address] Immature granulocytes (Bld) [#/Vol] 0.39 x10*3/uL Normal 0.00-0.70 [facility] Comment on above: Performed By: #### 5 7021-8 ####CALE Roth ([id number])[facility] ([facility])[address]12 [place] [address] Immature granulocytes/100 WBC (Bld) 4.8 % High 0.0-0.9 [facility] Comment on above: Result Comment: Aleisha ture Granulocyte Count (IG) includes promyelocytes, myelocytes and metamyelocytes but does not include bands. Percent differential counts (%) should be interpreted in the context of the absolute cell counts (cells/UL). Performed By: #### 5 7021-8 ####CALE Roth ([id number])[facility] ([facility])[address]482 [place] [address] Lymphocytes (Bld) [#/Vol] 1.25 x10*3/uL Normal 1.20-4.80 [facility] Comment on above: Performed By: #### 5 7021-8 ####CALE Roth ([id number])[facility] ([facility])[address] [place] [address] Lymphocytes/100 WBC (Bld) 15.4 % Normal 13.0-44.0 [facility] Comment on above: Performed By: #### 5 7021-8 ####CALE Roth ([id number])[facility] ([facility])[address] [place] [address] MCH (RBC) [Entitic mass] 30.2 pg Normal 26.0-34.0 [facility] Comment on above: Performed By: #### 5 7021-8 ####CALE Roth ([id number])[facility] ([facility])[address]502 [place] [address] MCHC (RBC) [Mass/Vol] 34.2 g/dL Normal 32.0-36.0 [facility] Comment on above: Performed By: #### 5 7021-8 ####ACLE Roth ([id number])[facility] ([facility])[address]757 [place] [address] MCV (RBC) [Entitic vol] 88 fL Normal 80-100 [facility] Comment on above: Performed By: #### 5 7021-8 ####CALE Roht ([id number])[facility] ([facility])[address]94 [place] [address] Monocytes (Bld) [#/Vol] 0.50 x10*3/uL Normal 0.10-1.00 [facility] Comment on above: Performed By: #### 5 7021-8 ####CALE Roth ([id number])[facility] ([facility])[address]508 [place] [address] Monocytes/100 WBC (Bld) 6.2 % Normal 2.0-10.0 [facility] Comment on above: Performed By: #### 5 7021-8 ####CALE Roth ([id number])[facility] ([facility])[address]800 [place] [address] Neutrophils (Bld) [#/Vol] 5.92 x10*3/uL Normal 1.20-7.70 [facility] Comment on above: Result Comment: Perc ent differential counts (%) should be interpreted in the context of the absolute cell counts (cells/uL). Performed By: #### 5 7021-8 ####CALE Roth ([id number])[facility] ([facility])[address]505 [place] [address] Neutrophils/100 WBC (Bld) 73.0 % Normal 40.0-80.0 [facility] Comment on above: Performed By: #### 5 7021-8 ####CALE Roth ([id number])[facility] ([facility])25171 [place] [address] Nucleated RBC/100 WBC (Bld) [Ratio] 0.0 /100 WBCs Normal 0.0-0.0 [facility] Comment on above: Performed By: #### 5 7021-8 ####CALE Roth ([id number])[facility] ([facility])[address]649 [place] [address] Platelets (Bld) [#/Vol] 407 x10*3/uL Normal 150-450 [facility] Comment on above: Performed By: #### 5 7021-8 ####CALE Roth ([id number])[facility] ([facility])[address]79 [place] [address] RBC (Bld) [#/Vol] 3.91 x10*6/uL Low 4.00-5.20 [facility] Comment on above: Performed By: #### 5 7021-8 ####CALE Roth ([id number])[facility] ([facility])[address]99 [place] [address] WBC (Bld) [#/Vol] 8.1 x10*3/uL Normal 4.4-11.3 [facility] Comment on above: Performed By: #### 5 7021-8 ####CALE Roth ([id number])[facility] ([facility])[address]94 [place] [address] CT HEAD WITHOUT CONTRAST VOL UMETRIC SURGICAL PLANNINGon 03-22-2025 CT HEAD WITHOUT CONTRAST VOLUMETRIC SURGICAL PLANNING Normal [facility] CT HEAD WO IV CONTRASTon CT HEAD WO IV CONTRAST Normal [facility] Calcium.ionizedon 03-22-2025 Calcium.ionized (Bld) [Moles/Vol] 1.20 mmol/L Normal 1.1-1.33 [facility] Comment on above: Result Comment: The performance characteristics of ionized calcium testedin heparinized plasma or serum have [facility].Testing on heparinized plasma or serum is not approved bythe FDA; however, such approval is not necessary. Performed By: #### 1 994-3 ####CALE Roth ([id number])[facility] ([facility])[address] [place] [address] Gas and Carbon monoxide and Electrolytes panel (BldA)on 03-22-2025 Anion gap 4 (BldA) [Moles/Vol] 8 mmo/L Low 10-25 [facility] Comment on above: Performed By: #### 9 3685-6 ####CALE Roth ([id number])[facility] ([facility])[address]371 [place] [address] Base excess Calc (Bld) [Moles/Vol] 3.5 mmol/L High -2.0-3.0 [facility] Comment on above: Performed By: #### 9 3685-6 ####CALE Roth ([id number])[facility] ([facility])[address]39 [place] [address] Calcium.ionized (BldA) [Moles/Vol] 1.23 mmol/L Normal 1.10-1.33 [facility] Comment on above: Performed By: #### 9 3685-6 ####CALE Roth ([id number])[facility] ([facility])[address] [place] [address] Chloride (BldA) [Moles/Vol] 104 mmol/L Normal 98-107 [facility] Comment on above: Performed By: #### 9 3685-6 ####CALE Roth ([id number])[facility] ([facility])[address] [place] [address] CO2 (Bld) [Partial pressure] 33 mm Hg Low 38-42 [facility] Comment on above: Performed By: #### 9 3685-6 ####CALE Roth ([id number])[facility] ([facility])[address] [place] [address]34 Glucose [Mass/Vol] 128 mg/dL High 74-99 [facility] Comment on above: Performed By: #### 9 5775-6 ####CALE Roth ([id number])[facility] ([facility])[address] [place] [address] 66866 HCO3 (Bld) [Moles/Vol] 26.3 mmol/L High 22.0-26.0 [facility] Comment on above: Performed By: #### 9 3685-6 ####CALE Roth ([id number])[facility] ([facility])[address] [place] [address]62 Hematocrit Est (Bld) [Volume fraction] 34.0 % Low 36.0-46.0 [facility] Comment on above: Performed By: #### 9 3685-6 ####CALE Roth ([id number])[facility] ([facility])[address] [place] [address] Hemoglobin (Bld) [Mass/Vol] 11.2 g/dL Low 12.0-16.0 [facility] Comment on above: Performed By: #### 9 3685-6 ####CALE Roth ([id number])[facility] ([facility])[address]86 [place] [address] Inhaled oxygen concentration 50 % Normal [facility] Comment on above: Performed By: #### 9 3685-6 ####CALE Roth ([id number])[facility] ([facility])[address]94 [place] [address] Lactate (BldA) [Moles/Vol] 0.6 mmol/L Normal 0.4-2.0 [facility] Comment on above: Performed By: #### 9 3685-6 ####CALE Roth (75862)[facility] ([facility])[address] [place] [address]247 Oxygen (Bld) [Partial pressure] 266 mm Hg High 85-95 [facility] Comment on above: Performed By: #### 9 3685-6 ####CALE Roth ([id number])[facility] ([facility])[address]60 [place] [address] Oxyhemoglobin (BldA) [Mass fraction] 97.6 % Normal 94.0-98.0 [facility] Comment on above: Performed By: #### 9 3685-6 ####CALE Roth (77146)[facility] ([facility])[address]36 [place] [address] pH (Bld) 7.51 [pH] High 7.38-7.42 [facility] Comment on above: Performed By: #### 9 3685-6 ####CALE Roth ([id number])[facility] ([facility])[address] [place] [address]842 Potassium (BldA) [Moles/Vol] 3.7 mmol/L Normal 3.5-5.3 [facility] Comment on above: Performed By: #### 9 4455-6 ####CALE Roth (88774)[facility] ([facility])[address]86 [place] [address] Sodium (BldA) [Moles/Vol] 135 mmol/L Low 136-145 [facility] Comment on above: Performed By: #### 9 3685-6 ####CALE Roth (30032)[facility] ([facility])54192 [place] [address] Glucose Test strip manual (B ld) [Mass/Vol]on 03-22-2025 Glucose [Mass/Vol] 133 mg/dL High 74-99 [facility] Comment on above: Performed By: #### 2 341-6 ####CALE Roth ([id number])[facility] ([facility])[address] [place] [address]68 Glucose [Mass/Vol] 119 mg/dL High -[address] [place] [address] Comment on above: Performed By: #### 2 341-6 ####CALE Roth ([id number])[facility] ([facility])[address] [place] [address] 38847 Glucose [Mass/Vol] 119 mg/dL High 7499 [facility] Comment on above: Performed By: #### 2 341-6 ####CALE Roth ([id number])[facility] ([facility])[address] [place] [address] 44049 Magnesiumon 03-22-2025 Magnesium [Mass/Vol] 2.11 mg/dL Normal 1.60-2.40 [facility] Comment on above: Performed By: #### 1 9123-9 ####CALE Roth ([id number])[facility] ([facility])68672 [place] [address] Renal function 2000 panelon 03-22-2025 Albumin BCP dye [Mass/Vol] 4.1 g/dL Normal 3.4-5.0 [facility] Comment on above: Performed By: #### 2 4362-6 ####CALE Roth ([id number])[facility] ([facility])[address]179 [place] [address] Anion gap [Moles/Vol] 12 mmol/L Normal 10-20 [facility] Comment on above: Performed By: #### 2 4362-6 ####CALE Roth ([id number])[facility] ([facility])[address]39 [place] [address] Calcium [Mass/Vol] 9.5 mg/dL Normal 8.6-10.6 [facility] Comment on above: Performed By: #### 2 4362-6 ####CALE Roth ([id number])[facility] ([facility])92246 [place] [address] Chloride [Moles/Vol] 101 mmol/L Normal 98-107 [facility] Comment on above: Performed By: #### 2 4362-6 ####CALE Roth ([id number])[facility] ([facility])[address]60 [place] [address] CO2 [Moles/Vol] 28 mmol/L Normal 21-[address] [facility] Comment on above: Performed By: #### 2 4362-6 ####CALE Roth (81967)[facility] ([facility])[address]480 [place] [address] Creatinine [Mass/Vol] 0.31 mg/dL Low 0.50-1.05 [facility] Comment on above: Performed By: #### 2 4362-6 ####CALE Roth (05856)[facility] ([facility])[address]280 [place] [address] Glomerular filtration rate >90 Normal >60 [facility] Comment on above: Result Comment: Calc ulations of estimated GFR are performed using the 2020 CKD-EPI Study Refit equation without the race variable for the IDMS-Traceable creatinine methods.https://jasn.asnjournals.org/content//ASN .5345663519 Performed By: #### 2 4362-6 ####CALE Roth ([id number])[facility] ([facility])[address]372 [place] [address] Glucose [Mass/Vol] 126 mg/dL High 74-99 [facility] Comment on above: Performed By: #### 2 4362-6 ####CALE Roth ([id number])[facility] ([facility])62995 [place] [address] Phosphate [Mass/Vol] 2.3 mg/dL Low 2.5-4.9 [facility] Comment on above: Performed By: #### 2 4362-6 ####CALE Roth ([id number])[facility] ([facility])[address]24 [place] [address] Potassium [Moles/Vol] 3.8 mmol/L Normal 3.5-5.3 [facility] Comment on above: Performed By: #### 2 4362-6 ####CALE Roth ([id number])[facility] ([facility])[address]05 [place] [address] Sodium [Moles/Vol] 137 mmol/L Normal 136-145 [facility] Comment on above: Performed By: #### 2 4362-6 ####CALE Roth ([id number])[facility] ([facility])[address]136 [place] [address] Urea nitrogen [Mass/Vol] 13 mg/dL Normal 6-23 [facility] Comment on above: Performed By: #### 2 4362-6 ####CALE Roth ([id number])[facility] ([facility])[address]381 [place] [address] Albumin BCP dye [Mass/Vol] 4.2 g/dL Normal 3.4-5.0 [facility] Comment on above: Performed By: #### 2 4362-6 ####CALE Roth ([id number])[facility] ([facility])[address]126 [place] [address] Anion gap [Moles/Vol] 15 mmol/L Normal 10-20 [facility] Comment on above: Performed By: #### 2 4362-6 ####CALE CAI L ([id number])[facility] ([facility])[address]452 [place] [address] Calcium [Mass/Vol] 9.6 mg/dL Normal 8.6-10.6 [facility] Comment on above: Performed By: #### 2 4362-6 ####CALE CAI L ([id number])[facility] ([facility])21595 [place] [address] Chloride [Moles/Vol] 99 mmol/L Normal 98-107 [facility] Comment on above: Performed By: #### 2 4362-6 ####CALE CAI L ([id number])[facility] ([facility])41824 [place] [address] CO2 [Moles/Vol] 24 mmol/L Normal 21-[address] [facility] Comment on above: Performed By: #### 2 4362-6 ####CALE CAI L ([id number])[facility] ([facility])15261 [place] [address] Creatinine [Mass/Vol] 0.38 mg/dL Low 0.50-1.05 [facility] Comment on above: Performed By: #### 2 4362-6 ####CALE CAI L ([id number])[facility] ([facility])[address]48 [place] [address] Glomerular filtration rate >90 Normal >60 [facility] Comment on above: Result Comment: Calc ulations of estimated GFR are performed using the 2020 CKD-EPI Study Refit equation without the race variable for the IDMS-Traceable creatinine methods.https://jasn.asnjournals.org/content//ASN .8493747949 Performed By: #### 2 4362-6 ####CALE CAI L ([id number])[facility] ([facility])[address]90 [place] [address] Glucose [Mass/Vol] 212 mg/dL High 74-99 [facility] Comment on above: Performed By: #### 2 4362-6 ####CALE Roth ([id number])[facility] ([facility])[address]20 [place] [address] Phosphate [Mass/Vol] 2.5 mg/dL Normal 2.5-4.9 [facility] Comment on above: Performed By: #### 2 4362-6 ####CALE CAI L ([id number])[facility] ([facility])50562 [place] [address] Potassium [Moles/Vol] 4.1 mmol/L Normal 3.5-5.3 [facility] Comment on above: Performed By: #### 2 4362-6 ####CALE Roth ([id number])[facility] ([facility])34359 [place] [address] Sodium [Moles/Vol] 134 mmol/L Low 136-145 [facility] Comment on above: Performed By: #### 2 4362-6 ####CALE CAI L ([id number])[facility] ([facility])[address]24 [place] [address] Urea nitrogen [Mass/Vol] 19 mg/dL Normal 6-23 [facility] Comment on above: Performed By: #### 2 4362-6 ####CALE CAI L ([id number])[facility] ([facility])[address]294 [place] [address] [facility] US TRANSCRANIAL DOPPLER (TCD) COMPLETEon 03-22-2025 VAS US TRANSCRANIAL DOPPLER (TCD) COMPLETE Normal [facility] XR ABDOMEN 2 VIEWS SUPINE AN D ERECT OR DECUBon 03-22-2025 XR ABDOMEN 2 VIEWS SUPINE AND ERECT OR DECUB [facility] Comment on above: Order Comment: Eboni de los santos have AP and lateral views of abdomen XR SHUNT SERIESon 03-22-2025 XR SHUNT SERIES Normal [facility] Comment on above: Order Comment: Eboni de los santos have AP and lateral abdominal xrays as part of imaging, along with skull xray orthogonal to shunt valve (in right occipital region) Bacteriaon 03-21-2025 Bacteria identified Cx Nom (U) Abnormal [facility] Comment on above: Performed By: #### 6 30-4 ####CALE Roth ([id number])[facility] ([facility])[address]44 [place] [address] Bacteria identified Cx Nom (CSF) Normal [facility] Comment on above: Performed By: #### 6 06-4 ####CALE Roth ([id number])[facility] ([facility])[address]35 [place] [address] Blood type and Indirect anti body screen panel (Bld)on 03-21-2025 ABO group Nom (Bld) B Normal [facility] Comment on above: Performed By: #### 3 4532-2 ####CALE Roth ([id number])[facility] ([facility])[address] [place] [address] Blood group antibody screen Ql Negative Normal [facility] Comment on above: Performed By: #### 3 4532-2 ####CALE Roth ([id number])[facility] ([facility])[address]53 [place] [address] D Ag Ql (Bld) Positive Normal [facility] Comment on above: Performed By: #### 3 4532-2 ####CALE Roth ([id number])[facility] ([facility])[address] [place] [address] CBC W Auto Differential pane l (Bld)on 03-21-2025 Basophils (Bld) [#/Vol] 0.02 x10*3/uL Normal 0.00-0.10 [facility] Comment on above: Performed By: #### 5 7021-8 ####CALE Roth ([id number])[facility] ([facility])[address] [facility] [place] [address] Basophils/100 WBC (Bld) 0.3 % Normal 0.0-2.0 [facility] Comment on above: Performed By: #### 5 7021-8 ####CALE Roth ([id number])[facility] ([facility])[address] [place] [address]373 Eosinophils (Bld) [#/Vol] 0.00 x10*3/uL Normal 0.00-0.70 [facility] Comment on above: Performed By: #### 5 7021-8 ####CALE Roth ([id number])[facility] ([facility])[address] [place] [address] 20060 Eosinophils/100 WBC (Bld) 0.0 % Normal 0.0-6.0 [facility] Comment on above: Performed By: #### 5 7021-8 ####CALE Roth ([id number])[facility] ([facility])[address] [place] [address] 35187 Erythrocyte distribution width (RBC) [Ratio] 13.4 % Normal 11.5-14.5 [facility] Comment on above: Performed By: #### 5 7021-8 ####CALE Roth ([id number])[facility] ([facility])[address] [place] [address] 94103 Hematocrit (Bld) [Volume fraction] 34.0 % Low 36.0-46.0 [facility] Comment on above: Performed By: #### 5 7021-8 ####CALE Roth ([id number])[facility] ([facility])[address] [place] [id number] Hemoglobin (Bld) [Mass/Vol] 11.6 g/dL Low 12.0-16.0 [facility] Comment on above: Performed By: #### 5 7021-8 ####CALE Roth ([id number])[facility] ([facility])[address] [place] [address] [id number] Immature granulocytes (Bld) [#/Vol] 0.36 x10*3/uL Normal 0.00-0.70 [facility] Comment on above: Performed By: #### 5 7021-8 ####CALE Roth ([id number])[facility] ([facility])[address] [place] [address] Immature granulocytes/100 WBC (Bld) 4.6 % High 0.0-0.9 [facility] Comment on above: Result Comment: Aleisha ture Granulocyte Count (IG) includes promyelocytes, myelocytes and metamyelocytes but does not include bands. Percent differential counts (%) should be interpreted in the context of the absolute cell counts (cells/UL). Performed By: #### 5 7021-8 ####CALE Roth ([id number])[facility] ([facility])[address] [place] [address] Lymphocytes (Bld) [#/Vol] 0.97 x10*3/uL Low 1.20-4.80 [facility] Comment on above: Performed By: #### 5 7021-8 ####CALE Roth ([id number])[facility] ([facility])[address] [place] [address] Lymphocytes/100 WBC (Bld) 12.4 % Normal 13.0-44.0 [facility] Comment on above: Performed By: #### 5 7021-8 ####CALE Roth ([id number])[facility] ([facility])[address] [place] [address] MCH (RBC) [Entitic mass] 29.8 pg Normal 26.0-34.0 [facility] Comment on above: Performed By: #### 5 7021-8 ####CALE Roth ([id number])[facility] ([facility])[address] [place] [address] MCHC (RBC) [Mass/Vol] 34.1 g/dL Normal 32.0-36.0 [facility] Comment on above: Performed By: #### 5 7021-8 ####CALE Roth ([id number])[facility] ([facility])[address] [place] [address] MCV (RBC) [Entitic vol] 87 fL Normal 80-100 [facility] Comment on above: Performed By: #### 5 7021-8 ####CALE Roth ([id number])[facility] ([facility])[address] [place] [address] Monocytes (Bld) [#/Vol] 0.43 x10*3/uL Normal 0.10-1.00 [facility] Comment on above: Performed By: #### 5 7021-8 ####CALE Roth ([id number])[facility] ([facility])[address] [place] [address] Monocytes/100 WBC (Bld) 5.5 % Normal 2.0-10.0 [facility] Comment on above: Performed By: #### 5 7021-8 ####CALE Roth ([id number])[facility] ([facility])[address] [place] [address] Neutrophils (Bld) [#/Vol] 6.02 x10*3/uL Normal 1.20-7.70 [facility] Comment on above: Result Comment: Perc ent differential counts (%) should be interpreted in the context of the absolute cell counts (cells/uL). Performed By: #### 5 7021-8 ####CALE Roth ([id number])[facility] ([facility])[address] [place] [address] Neutrophils/100 WBC (Bld) 77.2 % Normal 40.0-80.0 [facility] Comment on above: Performed By: #### 5 7021-8 ####CALE Roth ([id number])[facility] ([facility])[address] [place] [address] Nucleated RBC/100 WBC (Bld) [Ratio] 0.0 /100 WBCs Normal 0.0-0.0 [facility] Comment on above: Performed By: #### 5 7021-8 ####CALE Roth ([id number])[facility] ([facility])[address] [place] [address] Platelets (Bld) [#/Vol] 402 x10*3/uL Normal 150-450 [facility] Comment on above: Performed By: #### 5 7021-8 ####CALE CAI L ([id number])[facility] ([facility])[address] [place] [address] RBC (Bld) [#/Vol] 3.89 x10*6/uL Low 4.00-5.20 [facility] Comment on above: Performed By: #### 5 7021-8 ####CALE TOSCANOMOTZER L ([id number])[facility] ([facility])[address] [place] [address] WBC (Bld) [#/Vol] 7.8 x10*3/uL Normal 4.4-11.3 [facility] Comment on above: Performed By: #### 5 7021-8 ####CALE RUTLEDGEER L ([id number])[facility] ([facility])[address] [place] [address] CSF CELL COUNTon 03-21-2025 Appearance (CSF) Hazy Abnormal Clear [facility] Comment on above: Order Comment: CSF c ell count reference ranges have not been established by [facility]. Based on published references. Performed By: #### C TCS4 ####CALE Roth ([id number])[facility] ([facility])[address] [place] [address] Color (CSF) Colorless Normal Colorless [facility] Comment on above: Order Comment: CSF c ell count reference ranges have not been established by [facility]. Based on published references. Performed By: #### C TCS4 ####CALE PARKERTZER L ([id number])[facility] ([facility])[address] [place] [address] Color (Spun CSF) Colorless Normal [facility] Comment on above: Order Comment: CSF c ell count reference ranges have not been established by [facility]. Based on published references. Performed By: #### C TCS4 ####CALE PARKERTZER L ([id number])[facility] ([facility])[address] [place] [address] RBC Auto (CSF) [#/Vol] 1435 /uL High 0-5 [facility] Comment on above: Order Comment: CSF c ell count reference ranges have not been established by [facility]. Based on published references. Result Comment: Lucy shepherd hemacytometer count. Performed By: #### C TCS4 ####CALE Roth ([id number])[facility] ([facility])[address] [place] [address] Tube number Nom (CSF) [ID] Tube 1 Normal [facility] Comment on above: Order Comment: CSF c ell count reference ranges have not been established by [facility]. Based on published references. Performed By: #### C TCS4 ####CALE Roth ([id number])[facility] ([facility])[address] [place] [address] WBC Auto (CSF) [#/Vol] <3 Normal 1-5 [facility] Comment on above: Order Comment: CSF c ell count reference ranges have not been established by [facility]. Based on published references. Performed By: #### C TCS4 ####CALE Roth ([id number])[facility] ([facility])[address] [place] [address] CSF DIFFERENTIALon 5 Cells Counted Total (CSF) [#] 1 Normal [facility] Comment on above: Order Comment: CSF c ell differential reference ranges have not been established by [facility]. Based on published references. Performed By: #### D FCSF ####CALE Roth ([id number])[facility] ([facility])[address] [place] [address] Lymphocytes/100 WBC Manual cnt (CSF) 100 % High 28-96 [facility] Comment on above: Order Comment: CSF c ell differential reference ranges have not been established by [facility]. Based on published references. Performed By: #### D FCSF ####CALE Roth ([id number])[facility] ([facility])[address] [place] [address] Segmented neutrophils/100 WBC Manual cnt (CSF) 0 % Normal 0-5 [facility] Comment on above: Order Comment: CSF c ell differential reference ranges have not been established by [facility]. Based on published references. Performed By: #### D FCSF ####CALE Roth ([id number])[facility] ([facility])[address] [place] [address] HEAD WITHOUT CONTRAST VOL UMETRIC SURGICAL PLANNINGon 03-21-2025 CT HEAD WITHOUT CONTRAST VOLUMETRIC SURGICAL PLANNING Normal [facility] Calcium.ionizedon 03-21-2025 Calcium.ionized (Bld) [Moles/Vol] 1.22 mmol/L Normal 1.1-1.33 [facility] Comment on above: Result Comment: The performance characteristics of ionized calcium testedin heparinized plasma or serum have [facility].Testing on heparinized plasma or serum is not approved bythe FDA; however, such approval is not necessary. Performed By: #### 1 994-3 ####CALE Roth ([id number])[facility] ([facility])[address] [place] [address] Choriogonadotropin.beta subu niton 03-21-2025 HCG.beta subunit Qn m[IU]/mL Normal <5 [facility] Comment on above: Order Comment: Total HCG measurement is performed using the Siemens Atellica immunoassay which detects intact HCG and free beta HCG subunit. This test is not indicated for use as a tumor marker. HCG testing is performed using a different test methodology at [facility] than other [facility]. Direct result comparison should only be made within the same method. Performed By: #### 2 1198-7 ####CALE Roth ([id number])[facility] ([facility])[address] [place], [place] [address] ECG 12-LEADon 03-21-2025 ECG 12-LEAD Ventricular Rate 119 Atrial Rate 119 P-R Interval 154 QRS Duration 80 Q-T Interval 322 QTC Calculation(Bazett) 452 P [place] 69 R [place] 93 T [place] 5 QRS Count 19 Q Onset 220 P Onset 143 P Offset 199 T Offset 381 QTC Fredericia 404 Diagnosis Sinus tachycardia Rightward axis Nonspecific T wave abnormality Abnormal ECG When compared with ECG of 21-MAR-2025 14:09, No significant change was found Confirmed by Kuldip Barriga ([id number]) on 04/06/2025 10:47:23 AM Normal [facility] Glucoseon 03-21-2025 Glucose (CSF) [Mass/Vol] 110 mg/dL High 40-70 [facility] Comment on above: Performed By: #### 2 342-4 ####CALE Roth ([id number])[facility] ([facility])[address] [place] [address] Glucose Test strip manual (B ld) [Mass/Vol]on 03-21-2025 Glucose [Mass/Vol] 216 mg/dL High 7499 [facility] Comment on above: Performed By: #### 2 341-6 ####CALE Roth ([id number])[facility] ([facility])[address] [place] [address] Glucose [Mass/Vol] 162 mg/dL High [address] [place] [address] Comment on above: Performed By: #### 2 341-6 ####CALE Roth ([id number])[facility] ([facility])[address] [place] [address] Glucose [Mass/Vol] 166 mg/dL High [address] [place] [address] Comment on above: Performed By: #### 2 341-6 ####CALE Roth ([id number])[facility] ([facility])[address] [place] [address] Glucose [Mass/Vol] 122 mg/dL High [address] [place] [address] Comment on above: Performed By: #### 2 341-6 ####CALE Roth ([id number])[facility] ([facility])[address] [place] [address] HCG ( test) IA.rapi d Ql (U)on 03-21-2025 HCG ( test) Ql (U) Negative Normal NEGATIVE [facility] Comment on above: Performed By: #### 8 0384-1 ####CALE Roth ([id number])[facility] ([facility])[address] [place] [address] Magnesiumon 03-21-2025 Magnesium [Mass/Vol] 2.08 mg/dL Normal 1.60-2.40 [facility] Comment on above: Performed By: #### 1 9123-9 ####CALE Roth ([id number])[facility] ([facility])[address] [place] [address] PT and aPTT panel Coag (PPP) on 03-21-2025 aPTT Coag (PPP) [Time] 30 s Normal 26-36 [facility] Comment on above: Order Comment: The A PTT is no longer used for monitoring Unfractionated Heparin Therapy. For monitoring Heparin Therapy, use the Heparin Assay. Performed By: #### 3 4529-8 ####CALE Roth ([id number])[facility] ([facility])[address] [place] [address] INR Coag (PPP) [Relative time] 1.1 Normal 0.9-1.1 [facility] Comment on above: Order Comment: The A PTT is no longer used for monitoring Unfractionated Heparin Therapy. For monitoring Heparin Therapy, use the Heparin Assay. Performed By: #### 3 4529-8 ####CALE Roth ([id number])[facility] ([facility])[address] [place] [address] PT Coag (PPP) [Time] 12.6 s High 9.8-12.4 [facility] Comment on above: Order Comment: The A PTT is no longer used for monitoring Unfractionated Heparin Therapy. For monitoring Heparin Therapy, use the Heparin Assay. Performed By: #### 3 4529-8 ####CALE Roth ([id number])[facility] ([facility])[address] [place] [address] Proteinon 03-21-2025 Protein (CSF) [Mass/Vol] 15 mg/dL Normal 15-45 [facility] Comment on above: Performed By: #### 2 880-3 ####CALE CAI L ([id number])[facility] ([facility])[address] [place] [address] Renal function 2000 panelon 03-21-2025 Albumin BCP dye [Mass/Vol] 4.3 g/dL Normal 3.4-5.0 [facility] Comment on above: Performed By: #### 2 4362-6 ####CALE CAI L ([id number])[facility] ([facility])[address] [place] [address] Anion gap [Moles/Vol] 15 mmol/L Normal 10-20 [facility] Comment on above: Performed By: #### 2 4362-6 ####CALE Roth ([id number])[facility] ([facility])[address] [place] [address] Calcium [Mass/Vol] 9.7 mg/dL Normal 8.6-10.6 [facility] Comment on above: Performed By: #### 2 4362-6 ####CALE CAI L ([id number])[facility] ([facility])[address]364 [place] [address] Chloride [Moles/Vol] 101 mmol/L Normal 98-107 [facility] Comment on above: Performed By: #### 2 4362-6 ####CALE CAI L ([id number])[facility] ([facility])[address] [place] [address] CO2 [Moles/Vol] 27 mmol/L Normal 21-[address] [facility] Comment on above: Performed By: #### 2 4362-6 ####CALE CAI L ([id number])[facility] ([facility])[address] [place] [address] Creatinine [Mass/Vol] 0.41 mg/dL Low 0.50-1.05 [facility] Comment on above: Performed By: #### 2 4362-6 ####CALE CAI L ([id number])[facility] ([facility])[address] [place] [address] Glomerular filtration rate >90 Normal >60 [facility] Comment on above: Result Comment: Calc ulations of estimated GFR are performed using the 2020 CKD-EPI Study Refit equation without the race variable for the IDMS-Traceable creatinine methods.https://jasn.asnjournals.org/content//ASN .9265798356 Performed By: #### 2 4362-6 ####CALE Roth ([id number])[facility] ([facility])[address] [place] [address] Glucose [Mass/Vol] 197 mg/dL High 74-99 [facility] Comment on above: Performed By: #### 2 4362-6 ####CALE Roth ([id number])[facility] ([facility])[address] [place] [address] Phosphate [Mass/Vol] 3.2 mg/dL Normal 2.5-4.9 [facility] Comment on above: Performed By: #### 2 4362-6 ####CALE Roth ([id number])[facility] ([facility])[address]37 [place] [address] Potassium [Moles/Vol] 4.1 mmol/L Normal 3.5-5.3 [facility] Comment on above: Performed By: #### 2 4362-6 ####CALE CAI L ([id number])[facility] ([facility])[address] [place] [address] Sodium [Moles/Vol] 139 mmol/L Normal 136-145 [facility] Comment on above: Performed By: #### 2 4362-6 ####CALE Roth ([id number])[facility] ([facility])[address] [place] [address] Urea nitrogen [Mass/Vol] 11 mg/dL Normal 6-23 [facility] Comment on above: Performed By: #### 2 4362-6 ####CALE Roth ([id number])[facility] ([facility])[address] [place] [address] Urinalysis complete W Reflex Culture panel (U)on 03-21-2025 Appearance (U) Ex.Turbid Normal Clear [facility] Comment on above: Order Comment: OVER is reported when the result is greater than the clinically reportable range. Performed By: #### 5 8077-9 ####CALE Roth ([id number])[facility] ([facility])[address] [place] [address] Bilirubin (U) [Mass/Vol] Negative Normal NEGATIVE [facility] Comment on above: Order Comment: OVER is reported when the result is greater than the clinically reportable range. Performed By: #### 5 8077-9 ####CALE Roth ([id number])[facility] ([facility])[address] [place] [address] Color (U) Light-[place] Normal Light-Yello w, Yellow, Dark-Yellow [facility] Comment on above: Order Comment: OVER is reported when the result is greater than the clinically reportable range. Performed By: #### 5 8077-9 ####CALE Roth ([id number])[facility] ([facility])[address] [place] [address] Glucose Auto test strip (U) [Mass/Vol] 50 (TRACE) Abnormal Normal [facility] Comment on above: Order Comment: OVER is reported when the result is greater than the clinically reportable range. Performed By: #### 5 8077-9 ####CALE Roth ([id number])[facility] ([facility])[address] [place] [address] Ketones (U) [Mass/Vol] Negative Normal NEGATIVE [facility] Comment on above: Order Comment: OVER is reported when the result is greater than the clinically reportable range. Performed By: #### 5 8077-9 ####CALE Roth ([id number])[facility] ([facility])[address] [place] [address] Leukocyte esterase Auto test strip Ql (U) 250 Joe/uL Abnormal NEGATIVE [facility] Comment on above: Order Comment: OVER is reported when the result is greater than the clinically reportable range. Performed By: #### 5 8077-9 ####CALE Roth ([id number])[facility] ([facility])[address] [place] [address] Nitrite Auto test strip Ql (U) 2+ Abnormal NEGATIVE [facility] Comment on above: Order Comment: OVER is reported when the result is greater than the clinically reportable range. Performed By: #### 5 8077-9 ####CALE Roth ([id number])[facility] ([facility])[address] [place] [address] pH (U) 7.5 [pH] Normal 5.0, 5.5, 6.0, 6.5, 7.0, 7.5, 8.0 [facility] Comment on above: Order Comment: OVER is reported when the result is greater than the clinically reportable range. Performed By: #### 5 8077-9 ####CALE Roth ([id number])[facility] ([facility])[address]230 [place] [address] Protein (U) [Mass/Vol] Negative Normal NEGATIVE, 10 (TRACE), 20 (TRACE) [facility] Comment on above: Order Comment: OVER is reported when the result is greater than the clinically reportable range. Performed By: #### 5 8077-9 ####CALE Roth ([id number])[facility] ([facility])[address]203 [place] [address] RBC (U) [#/Vol] OVER (3+) Abnormal NEGATIVE [facility] Comment on above: Order Comment: OVER is reported when the result is greater than the clinically reportable range. Performed By: #### 5 8077-9 ####CALE Roth ([id number])[facility] ([facility])[address] [place] [address] Specific gravity (U) [Rel density] 1.019 Normal 1.005-1.035 [facility] Comment on above: Order Comment: OVER is reported when the result is greater than the clinically reportable range. Performed By: #### 5 8077-9 ####CALE Roth ([id number])[facility] ([facility])[address] [place] [address] Urobilinogen (U) [Mass/Vol] Normal Normal Normal [facility] Comment on above: Order Comment: OVER is reported when the result is greater than the clinically reportable range. Performed By: #### 5 8077-9 ####CALE Roth ([id number])[facility] ([facility])[address]122 [place] [address] Urinalysis microscopic panel Auto Ql (U)on 03-21-2025 Bacteria Auto (Urine sed) [#/Area] 3+ /HPF Abnormal NONE SEEN [facility] Comment on above: Performed By: #### 5 3315-8 ####CALE Roth ([id number])[facility] ([facility])[address] [place] [address] Epithelial cells.squamous Auto (Urine sed) [#/Area] 1-9 (SPARSE) Normal Reference range not established . [facility] Comment on above: Performed By: #### 5 3315-8 ####CALE Roth ([id number])[facility] ([facility])[address] [place] [address] RBC Auto (Urine sed) [#/Area] >20 Abnormal NONE, 1-2, 3-5 [facility] Comment on above: Performed By: #### 5 3315-8 ####CALE Roth ([id number])[facility] ([facility])[address] [place] [address] WBC Auto (Urine sed) [#/Area] >50 Abnormal 1-5, NONE [facility] Comment on above: Performed By: #### 5 3315-8 ####CALE Roth ([id number])[facility] ([facility])[address] [place] [address] XR CHEST 1 VIEWon 03-21-2025 XR CHEST [address] [facility] Bacteriaon 03-20-2025 Bacteria identified Cx Nom (CSF) Normal [facility] Comment on above: Performed By: #### 6 06-4 ####CALE Roth ([id number])[facility] ([facility])[address]191 [place] [address] Bacteria identified Cx Nom (CSF) Abnormal [facility] Comment on above: Performed By: #### 6 06-4 ####CALE Roth ([id number])[facility] ([facility])[address] [place] [address] CBC W Auto Differential pane l (Bld)on 03-20-2025 Basophils (Bld) [#/Vol] 0.03 x10*3/uL Normal 0.00-0.10 [facility] Comment on above: Performed By: #### 5 7021-8 ####CALE Roth ([id number])[facility] ([facility])[address] [place] [address] Basophils/100 WBC (Bld) 0.3 % Normal 0.0-2.0 [facility] Comment on above: Performed By: #### 5 7021-8 ####CALE Roth ([id number])[facility] ([facility])[address] [place] [address] Eosinophils (Bld) [#/Vol] 0.01 x10*3/uL Normal 0.00-0.70 [facility] Comment on above: Performed By: #### 5 7021-8 ####CALE Roth ([id number])[facility] ([facility])[address]89 [place] [address] Eosinophils/100 WBC (Bld) 0.1 % Normal 0.0-6.0 [facility] Comment on above: Performed By: #### 5 7021-8 ####CALE Roth ([id number])[facility] ([facility])[address]34 [place] [address] Erythrocyte distribution width (RBC) [Ratio] 12.7 % Normal 11.5-14.5 [facility] Comment on above: Performed By: #### 5 7021-8 ####CALE Roth ([id number])[facility] ([facility])[address]377 [place] [address] Hematocrit (Bld) [Volume fraction] 30.4 % Low 36.0-46.0 [facility] Comment on above: Performed By: #### 5 7021-8 ####CALE Roth ([id number])[facility] ([facility])[address]67 [place] [address] Hemoglobin (Bld) [Mass/Vol] 10.8 g/dL Low 12.0-16.0 [facility] Comment on above: Performed By: #### 5 7021-8 ####CALE Roth ([id number])[facility] ([facility])[address]651 [place] [address] Immature granulocytes (Bld) [#/Vol] 0.27 x10*3/uL Normal 0.00-0.70 [facility] Comment on above: Performed By: #### 5 7021-8 ####CALE Roth ([id number])[facility] ([facility])[address]381 [place] [address] Immature granulocytes/100 WBC (Bld) 2.8 % High 0.0-0.9 [facility] Comment on above: Result Comment: Aleisha ture Granulocyte Count (IG) includes promyelocytes, myelocytes and metamyelocytes but does not include bands. Percent differential counts (%) should be interpreted in the context of the absolute cell counts (cells/UL). Performed By: #### 5 7021-8 ####CALE Roth ([id number])[facility] ([facility])[address]17 [place] [address] Lymphocytes (Bld) [#/Vol] 1.06 x10*3/uL Low 1.20-4.80 [facility] Comment on above: Performed By: #### 5 7021-8 ####CALE Roth ([id number])[facility] ([facility])[address]50 [place] [address] Lymphocytes/100 WBC (Bld) 10.9 % Normal 13.0-44.0 [facility] Comment on above: Performed By: #### 5 7021-8 ####CALE Roth ([id number])[facility] ([facility])[address]14 [place] [address] MCH (RBC) [Entitic mass] 30.0 pg Normal 26.0-34.0 [facility] Comment on above: Performed By: #### 5 7021-8 ####CALE Roth ([id number])[facility] ([facility])[address] [place] [address] MCHC (RBC) [Mass/Vol] 35.5 g/dL Normal 32.0-36.0 [facility] Comment on above: Performed By: #### 5 7021-8 ####CALE Roth ([id number])[facility] ([facility])[address]2014 [place] [address] MCV (RBC) [Entitic vol] 84 fL Normal 80-100 [facility] Comment on above: Performed By: #### 5 7021-8 ####CALE Roth ([id number])[facility] ([facility])[address]99 [place] [address] Monocytes (Bld) [#/Vol] 0.50 x10*3/uL Normal 0.10-1.00 [facility] Comment on above: Performed By: #### 5 7021-8 ####CALE Roth ([id number])[facility] ([facility])[address] [place] [address] Monocytes/100 WBC (Bld) 5.2 % Normal 2.0-10.0 [facility] Comment on above: Performed By: #### 5 7021-8 ####CALE Roth ([id number])[facility] ([facility])[address] [place] [address] Neutrophils (Bld) [#/Vol] 7.82 x10*3/uL High 1.20-7.70 [facility] Comment on above: Result Comment: Perc ent differential counts (%) should be interpreted in the context of the absolute cell counts (cells/uL). Performed By: #### 5 7021-8 ####CALE Roth ([id number])[facility] ([facility])[address] [place] [address] Neutrophils/100 WBC (Bld) 80.7 % Normal 40.0-80.0 [facility] Comment on above: Performed By: #### 5 7021-8 ####CALE Roth ([id number])[facility] ([facility])[address]379 [place] [address] Nucleated RBC/100 WBC (Bld) [Ratio] 0.0 /100 WBCs Normal 0.0-0.0 [facility] Comment on above: Performed By: #### 5 7021-8 ####CALE CAI L ([id number])[facility] ([facility])[address] [place] [address] Platelets (Bld) [#/Vol] 381 x10*3/uL Normal 150-450 [facility] Comment on above: Performed By: #### 5 7021-8 ####CALE Roth ([id number])[facility] ([facility])[address] [place] [address] RBC (Bld) [#/Vol] 3.60 x10*6/uL Low 4.00-5.20 [facility] Comment on above: Performed By: #### 5 7021-8 ####CALE CAI L ([id number])[facility] ([facility])[address] [place] [address] WBC (Bld) [#/Vol] 9.7 x10*3/uL Normal 4.4-11.3 [facility] Comment on above: Performed By: #### 5 7021-8 ####CALE CAI L ([id number])[facility] ([facility])[address] [place] [address] CSF CELL COUNTon 03-20-2025 Appearance (CSF) Clear Normal Clear [facility] Comment on above: Order Comment: CSF c ell count reference ranges have not been established by [facility]. Based on published references. Performed By: #### C TCS4 ####CALE Roth ([id number])[facility] ([facility])[address] [place] [address] Color (CSF) [place] Abnormal Colorless [facility] Comment on above: Order Comment: CSF c ell count reference ranges have not been established by [facility]. Based on published references. Performed By: #### C TCS4 ####CALE Roth ([id number])[facility] ([facility])[address] [place] [address] Color (Spun CSF) Colorless Normal [facility] Comment on above: Order Comment: CSF c ell count reference ranges have not been established by [facility]. Based on published references. Performed By: #### C TCS4 ####CALE Roth ([id number])[facility] ([facility])[address]400 [place] [address] RBC Manual cnt (CSF) [#/Vol] 3000 /uL High 0-5 [facility] Comment on above: Order Comment: CSF c ell count reference ranges have not been established by [facility]. Based on published references. Performed By: #### C TCS4 ####CALE Roth ([id number])[facility] ([facility])[address] [place] [address] Tube number Nom (CSF) [ID] Unspecified Normal [facility] Comment on above: Order Comment: CSF c ell count reference ranges have not been established by [facility]. Based on published references. Performed By: #### C TCS4 ####CALE Roth ([id number])[facility] ([facility])[address] [place] [address] WBC Manual cnt (CSF) [#/Vol] 1 /uL Normal 1-5 [facility] Comment on above: Order Comment: CSF c ell count reference ranges have not been established by [facility]. Based on published references. Performed By: #### C TCS4 ####CALE Roth ([id number])[facility] ([facility])[address] [place] [address] Appearance (CSF) Clear Normal Clear [facility] Comment on above: Order Comment: CSF c ell count reference ranges have not been established by [facility]. Based on published references. Performed By: #### C TCS4 ####CALE CAI L ([id number])[facility] ([facility])[address] [place] [address] Color (CSF) [place] Abnormal Colorless [facility] Comment on above: Order Comment: CSF c ell count reference ranges have not been established by [facility]. Based on published references. Performed By: #### C TCS4 ####CALE CAI L ([id number])[facility] ([facility])[address] [place] [address] Color (Spun CSF) Colorless Normal [facility] Comment on above: Order Comment: CSF c ell count reference ranges have not been established by [facility]. Based on published references. Performed By: #### C TCS4 ####CALE Roth ([id number])[facility] ([facility])[address] [place] [address] RBC Auto (CSF) [#/Vol] 2000 /uL High 0-5 [facility] Comment on above: Order Comment: CSF c ell count reference ranges have not been established by [facility]. Based on published references. Performed By: #### C TCS4 ####CALE Roth ([id number])[facility] ([facility])[address] [place] [address] Tube number Nom (CSF) [ID] Unspecified Normal [facility] Comment on above: Order Comment: CSF c ell count reference ranges have not been established by [facility]. Based on published references. Performed By: #### C TCS4 ####CALE Roth ([id number])[facility] ([facility])[address]056 [place] [address] WBC Auto (CSF) [#/Vol] 2 /uL Normal 1-5 [facility] Comment on above: Order Comment: CSF c ell count reference ranges have not been established by [facility]. Based on published references. Performed By: #### C TCS4 ####CALE Roth ([id number])[facility] ([facility])[address] [place] [address] CSF DIFFERENTIALon 5 Cells Counted Total (CSF) [#] 1 Normal [facility] Comment on above: Order Comment: CSF c ell differential reference ranges have not been established by [facility]. Based on published references. Performed By: #### D FCSF ####CALE Roth ([id number])[facility] ([facility])[address]152 [place] [address] Segmented neutrophils/100 WBC Manual cnt (CSF) 100 % High 0-5 [facility] Comment on above: Order Comment: CSF c ell differential reference ranges have not been established by [facility]. Based on published references. Performed By: #### D FCSF ####CALE Roth ([id number])[facility] ([facility])[address] [place] [address] Cells Counted Total (CSF) [#] 9 Normal [facility] Comment on above: Order Comment: CSF c ell differential reference ranges have not been established by [facility]. Based on published references. Performed By: #### D FCSF ####CALE CAI L ([id number])[facility] ([facility])[address]335 [place] [address] Lymphocytes/100 WBC Manual cnt (CSF) 67 % Normal 28-96 [facility] Comment on above: Order Comment: CSF c ell differential reference ranges have not been established by [facility]. Based on published references. Performed By: #### D FCSF ####CALE CAI L ([id number])[facility] ([facility])[address] [place] [address] Monocytes+Macrophage s/100 WBC Manual cnt (CSF) 22 % Normal 16-56 [facility] Comment on above: Order Comment: CSF c ell differential reference ranges have not been established by [facility]. Based on published references. Performed By: #### D FCSF ####CALE Roth ([id number])[facility] ([facility])[address] [place] [address] Segmented neutrophils/100 WBC Manual cnt (CSF) 11 % High 0-5 [facility] Comment on above: Order Comment: CSF c ell differential reference ranges have not been established by [facility]. Based on published references. Result Comment: Bact eria Present Performed By: #### D FCSF ####CALE Roth ([id number])[facility] ([facility])[address] [place] [address] Calcium.ionizedon 03-20-2025 Calcium.ionized (Bld) [Moles/Vol] 1.20 mmol/L Normal 1.1-1.33 [facility] Comment on above: Result Comment: The performance characteristics of ionized calcium testedin heparinized plasma or serum have [facility].Testing on heparinized plasma or serum is not approved bythe FDA; however, such approval is not necessary. Performed By: #### 1 994-3 ####CALE Roth ([id number])[facility] ([facility])[address] [place] [address] Glucoseon 03-20-2025 Glucose (CSF) [Mass/Vol] 89 mg/dL High 40-70 [facility] Comment on above: Performed By: #### 2 342-4 ####CALE Roth ([id number])[facility] ([facility])[address]162 [place] [address] Glucose (CSF) [Mass/Vol] 81 mg/dL High 40-70 [facility] Comment on above: Performed By: #### 2 342-4 ####CALE Roth ([id number])[facility] ([facility])[address] [place] [address] Glucose Test strip manual (B ld) [Mass/Vol]on 03-20-2025 Glucose [Mass/Vol] 204 mg/dL High [address] [place] [address] Comment on above: Performed By: #### 2 341-6 ####CALE Roth ([id number])[facility] ([facility])[address] [place] [address] Glucose [Mass/Vol] 141 mg/dL High [address] [place] [address] Comment on above: Performed By: #### 2 341-6 ####CALE Roth ([id number])[facility] ([facility])[address]397 [place] [address] Glucose [Mass/Vol] 129 mg/dL High [address] [place] [address] Comment on above: Performed By: #### 2 341-6 ####CALE Roth ([id number])[facility] ([facility])[address]238 [place] [address] Glucose [Mass/Vol] 111 mg/dL High [address] [place] [address] Comment on above: Performed By: #### 2 341-6 ####CALE Roth ([id number])[facility] ([facility])[address]22 [place] [address] Glucose [Mass/Vol] 125 mg/dL High [address] [place] [address] Comment on above: Performed By: #### 2 341-6 ####CALE Roth ([id number])[facility] ([facility])[address]57 [place] [address] Magnesiumon 03-20-2025 Magnesium [Mass/Vol] 1.93 mg/dL Normal 1.60-2.40 [facility] Comment on above: Performed By: #### 1 9123-9 ####CALE Roth ([id number])[facility] ([facility])[address]37 [place] [address] Pathologist review Ibrahima (Unsp spec) [Interp]on 03-20-2025 PATH REVIEW-CELL CT,CSF Hemorrhagic specimen with bacteria present, correlate with separate microbiology result. Normal [facility] Comment on above: Result Comment: Elec tronically signed out by Alberto Harrell MD on 03/22/25 at 3:45 PM.By the signature on this report, the individual or group listed as making the Final Interpretation/Diagnosis certifies that they have reviewed this case. Performed By: #### 5 9465-5 ####CALE Roth ([id number])[facility] ([facility])[address] [place] [address] PATH REVIEW-CELL CT,CSF Hemorrhagic specimen with many bacteria present, correlate with separate microbiology result. Normal [facility] Comment on above: Result Comment: Elec tronically signed out by Alberto Harrell MD on 03/22/25 at 3:45 PM.By the signature on this report, the individual or group listed as making the Final Interpretation/Diagnosis certifies that they have reviewed this case. Performed By: #### 5 9465-5 ####CALE Roth ([id number])[facility] ([facility])[address] [place] [address] Proteinon 03-20-2025 Protein (CSF) [Mass/Vol] 16 mg/dL Normal 15-45 [facility] Comment on above: Performed By: #### 2 880-3 ####CALE Roth ([id number])[facility] ([facility])[address] [place] [address] Protein (CSF) [Mass/Vol] 23 mg/dL Normal 15-45 [facility] Comment on above: Performed By: #### 2 880-3 ####CALE CAI L ([id number])[facility] ([facility])[address] [place] [address] Renal function 2000 panelon 03-20-2025 Albumin BCP dye [Mass/Vol] 4.1 g/dL Normal 3.4-5.0 [facility] Comment on above: Performed By: #### 2 4362-6 ####CALE CAI L ([id number])[facility] ([facility])[address] [place] [address] [place] [address] Anion gap [Moles/Vol] 13 mmol/L Normal 10-20 [facility] Comment on above: Performed By: #### 2 4362-6 ####CALE Roth ([id number])[facility] ([facility])[address]321 [place] [address] Calcium [Mass/Vol] 9.3 mg/dL Normal 8.6-10.6 [facility] Comment on above: Performed By: #### 2 4362-6 ####CALE Roth ([id number])[facility] ([facility])[address] [place] [address] Chloride [Moles/Vol] 106 mmol/L Normal 98-107 [facility] Comment on above: Performed By: #### 2 4362-6 ####CALE Roth ([id number])[facility] ([facility])[address]363 [place] [address] CO2 [Moles/Vol] 26 mmol/L Normal 21-[address] [facility] Comment on above: Performed By: #### 2 4362-6 ####CALE Roth ([id number])[facility] ([facility])[address]358 [place] [address] Creatinine [Mass/Vol] 0.36 mg/dL Low 0.50-1.05 [facility] Comment on above: Performed By: #### 2 4362-6 ####CALE CAI L ([id number])[facility] ([facility])[address]366 [place] [address] Glomerular filtration rate >90 Normal >60 [facility] Comment on above: Result Comment: Calc ulations of estimated GFR are performed using the 2020 CKD-EPI Study Refit equation without the race variable for the IDMS-Traceable creatinine methods.https://jasn.asnjournals.org/content/early/ASN .3522044572 Performed By: #### 2 4362-6 ####CALE Roth ([id number])[facility] ([facility])[address] [facility] [place] [address] Glucose [Mass/Vol] 130 mg/dL High 74-99 [facility] Comment on above: Performed By: #### 2 4362-6 ####CALE Roth ([id number])[facility] ([facility])[address] [facility] [place] [address] Phosphate [Mass/Vol] 1.9 mg/dL Low 2.5-4.9 [facility] Comment on above: Performed By: #### 2 4362-6 ####CALE Roth ([id number])[facility] ([facility])[address]79 [place] [address] Potassium [Moles/Vol] 4.0 mmol/L Normal 3.5-5.3 [facility] Comment on above: Performed By: #### 2 4362-6 ####CALE Roth ([id number])[facility] ([facility])[address]22 [place] [address] Sodium [Moles/Vol] 141 mmol/L Normal 136-145 [facility] Comment on above: Performed By: #### 2 4362-6 ####CALE Roth ([id number])[facility] ([facility])[address]22 [place] [address] Urea nitrogen [Mass/Vol] 10 mg/dL Normal 6-23 [facility] Comment on above: Performed By: #### 2 4362-6 ####CALE Roth ([id number])[facility] ([facility])[address]131 [place] [address] Albumin BCP dye [Mass/Vol] 4.0 g/dL Normal 3.4-5.0 [facility] Comment on above: Performed By: #### 2 4362-6 ####CALE Roth ([id number])[facility] ([facility])[address] [facility] [place] [facility] [place] [address] Anion gap [Moles/Vol] 12 mmol/L Normal 10-20 [facility] Comment on above: Performed By: #### 2 4362-6 ####CALE Roth ([id number])[facility] ([facility])[address]679 [place] [address] Calcium [Mass/Vol] 9.4 mg/dL Normal 8.6-10.6 [facility] Comment on above: Performed By: #### 2 4362-6 ####CALE CAI L ([id number])[facility] ([facility])[address]655 [place] [address] Chloride [Moles/Vol] 101 mmol/L Normal 98-107 [facility] Comment on above: Performed By: #### 2 4362-6 ####CALE CAI L ([id number])[facility] ([facility])[address]198 [place] [address] CO2 [Moles/Vol] 27 mmol/L Normal 21-[address] [facility] Comment on above: Performed By: #### 2 4362-6 ####CALE CAI L ([id number])[facility] ([facility])[address]552 [place] [address] Creatinine [Mass/Vol] 0.41 mg/dL Low 0.50-1.05 [facility] Comment on above: Performed By: #### 2 4362-6 ####CALE CAI L ([id number])[facility] ([facility])[address]188 [place] [address] Glomerular filtration rate >90 Normal >60 [facility] Comment on above: Result Comment: Calc ulations of estimated GFR are performed using the 2020 CKD-EPI Study Refit equation without the race variable for the IDMS-Traceable creatinine methods.https://jasn.asnjournals.org/content//ASN .3889062336 Performed By: #### 2 4362-6 ####CALE Roth ([id number])[facility] ([facility])[address] [place] [address] Glucose [Mass/Vol] 134 mg/dL High 74-99 [facility] Comment on above: Performed By: #### 2 4362-6 ####CALE Roth ([id number])[facility] ([facility])[address]44 [place] [address] Phosphate [Mass/Vol] 2.0 mg/dL Low 2.5-4.9 [facility] Comment on above: Performed By: #### 2 4362-6 ####CALE Roth ([id number])[facility] ([facility])19172 [place] [address] Potassium [Moles/Vol] 3.5 mmol/L Normal 3.5-5.3 [facility] Comment on above: Performed By: #### 2 4362-6 ####CALE Roth ([id number])[facility] ([facility])[address] [place] [address] Sodium [Moles/Vol] 136 mmol/L Normal 136-145 [facility] Comment on above: Performed By: #### 2 4362-6 ####CALE Roth ([id number])[facility] ([facility])[address]151 [place] [address] Urea nitrogen [Mass/Vol] 13 mg/dL Normal 6-23 [facility] Comment on above: Performed By: #### 2 4362-6 ####CALE Roth ([id number])[facility] ([facility])[address] [place] [address] CBC W Auto Differential pane l (Bld)on 03-19-2025 Basophils (Bld) [#/Vol] 0.02 x10*3/uL Normal 0.00-0.10 [facility] Comment on above: Performed By: #### 5 7021-8 ####CALE Roth ([id number])[facility] ([facility])[address]135 [place] [address] Basophils/100 WBC (Bld) 0.1 % Normal 0.0-2.0 [facility] Comment on above: Performed By: #### 5 7021-8 ####CALE Roth ([id number])[facility] ([facility])[address] [place] [address] Eosinophils (Bld) [#/Vol] 0.00 x10*3/uL Normal 0.00-0.70 [facility] Comment on above: Performed By: #### 5 7021-8 ####CALE Roth ([id number])[facility] ([facility])[address] [place] [address] Eosinophils/100 WBC (Bld) 0.0 % Normal 0.0-6.0 [facility] Comment on above: Performed By: #### 5 7021-8 ####CALE Roth ([id number])[facility] ([facility])[address] [place] [address] Erythrocyte distribution width (RBC) [Ratio] 13.0 % Normal 11.5-14.5 [facility] Comment on above: Performed By: #### 5 7021-8 ####CALE Roth ([id number])[facility] ([facility])[address] [place] [address] Hematocrit (Bld) [Volume fraction] 29.5 % Low 36.0-46.0 [facility] Comment on above: Performed By: #### 5 7021-8 ####CALE Roth ([id number])[facility] ([facility])[address] [place] [address] Hemoglobin (Bld) [Mass/Vol] 10.5 g/dL Low 12.0-16.0 [facility] Comment on above: Performed By: #### 5 7021-8 ####CALE Roth ([id number])[facility] ([facility])[address] [place] [address]32 Immature granulocytes (Bld) [#/Vol] 0.17 x10*3/uL Normal 0.00-0.70 [facility] Comment on above: Performed By: #### 5 7021-8 ####CALE Roth ([id number])[facility] ([facility])65266 [place] [address] Immature granulocytes/100 WBC (Bld) 1.3 % High 0.0-0.9 [facility] Comment on above: Result Comment: Aleisha ture Granulocyte Count (IG) includes promyelocytes, myelocytes and metamyelocytes but does not include bands. Percent differential counts (%) should be interpreted in the context of the absolute cell counts (cells/UL). Performed By: #### 5 7021-8 ####CALE Roth ([id number])[facility] ([facility])[address]853 [place] [address] Lymphocytes (Bld) [#/Vol] 0.93 x10*3/uL Low 1.20-4.80 [facility] Comment on above: Performed By: #### 5 7021-8 ####CALE Roth ([id number])[facility] ([facility])[address]73 [place] [address] Lymphocytes/100 WBC (Bld) 6.9 % Normal 13.0-44.0 [facility] Comment on above: Performed By: #### 5 7021-8 ####CALE Roth ([id number])[facility] ([facility])23126 [place] [address] MCH (RBC) [Entitic mass] 30.3 pg Normal 26.0-34.0 [facility] Comment on above: Performed By: #### 5 7021-8 ####CALE Roth ([id number])[facility] ([facility])86859 [place] [address] MCHC (RBC) [Mass/Vol] 35.6 g/dL Normal 32.0-36.0 [facility] Comment on above: Performed By: #### 5 7021-8 ####CALE Roth ([id number])[facility] ([facility])[address]02 [place] [address] MCV (RBC) [Entitic vol] 85 fL Normal 80-100 [facility] Comment on above: Performed By: #### 5 7021-8 ####CALE Roth ([id number])[facility] ([facility])18587 [place] [address] Monocytes (Bld) [#/Vol] 0.85 x10*3/uL Normal 0.10-1.00 [facility] Comment on above: Performed By: #### 5 7021-8 ####CALE Roth ([id number])[facility] ([facility])[address]001 [place] [address] Monocytes/100 WBC (Bld) 6.3 % Normal 2.0-10.0 [facility] Comment on above: Performed By: #### 5 7021-8 ####CALE Roth ([id number])[facility] ([facility])[address]68 [place] [address] Neutrophils (Bld) [#/Vol] 11.53 x10*3/uL High 1.20-7.70 [facility] Comment on above: Result Comment: Perc ent differential counts (%) should be interpreted in the context of the absolute cell counts (cells/uL). Performed By: #### 5 7021-8 ####CALE Roth ([id number])[facility] ([facility])[address]807 [place] [address] Neutrophils/100 WBC (Bld) 85.4 % Normal 40.0-80.0 [facility] Comment on above: Performed By: #### 5 7021-8 ####CALE Roth ([id number])[facility] ([facility])[address]82 [place] [address] Nucleated RBC/100 WBC (Bld) [Ratio] 0.0 /100 WBCs Normal 0.0-0.0 [facility] Comment on above: Performed By: #### 5 7021-8 ####CALE Roth ([id number])[facility] ([facility])[address]90 [place] [address] Platelets (Bld) [#/Vol] 375 x10*3/uL Normal 150-450 [facility] Comment on above: Performed By: #### 5 7021-8 ####CALE Roth ([id number])[facility] ([facility])[address]1966 [place] [address] RBC (Bld) [#/Vol] 3.47 x10*6/uL Low 4.00-5.20 [facility] Comment on above: Performed By: #### 5 7021-8 ####CALE Roth ([id number])[facility] ([facility])[address]854 [place] [address] WBC (Bld) [#/Vol] 13.5 x10*3/uL High 4.4-11.3 [facility] Comment on above: Performed By: #### 5 7021-8 ####CALE Roth ([id number])[facility] ([facility])[address] [place] [address] CT HEAD WO IV CONTRASTon CT HEAD WO IV CONTRAST Normal [facility] Calcium.ionizedon 03-19-2025 Calcium.ionized (Bld) [Moles/Vol] 1.20 mmol/L Normal 1.1-1.33 [facility] Comment on above: Result Comment: The performance characteristics of ionized calcium testedin heparinized plasma or serum [facility].Testing on heparinized plasma or serum is not approved bythe FDA; however, such approval is not necessary. Performed By: #### 1 994-3 ####CALE Roth ([id number])[facility] ([facility])[address]49 [place] [address] Glucose Test strip manual (B ld) [Mass/Vol]on 03-19-2025 Glucose [Mass/Vol] 130 mg/dL High 74-99 [facility] Comment on above: Performed By: #### 2 341-6 ####CALE Roth ([id number])[facility] ([facility])[address]96 [place] [address] Glucose [Mass/Vol] 138 mg/dL High -[address] [place] [address] Comment on above: Performed By: #### 2 341-6 ####CALE Roth ([id number])[facility] ([facility])[address] [place] [address] Glucose [Mass/Vol] 124 mg/dL High [address] [place] [address] Comment on above: Performed By: #### 2 341-6 ####CALE Roth ([id number])[facility] ([facility])[address] [place] [address] 76523 Glucose [Mass/Vol] 127 mg/dL High [address] [place] [address] Comment on above: Performed By: #### 2 341-6 ####CALE Roth ([id number])[facility] ([facility])[address] [place] [address] 22682 Glucose [Mass/Vol] 128 mg/dL High [address] [place] [address] Comment on above: Performed By: #### 2 341-6 ####CALE Roth ([id number])[facility] ([facility])[address]48 [place] [address] Glucose [Mass/Vol] 119 mg/dL High [address] [place] [address] Comment on above: Performed By: #### 2 341-6 ####CALE Roth ([id number])[facility] ([facility])[address] [place] [address] 34230 Hemoglobin.gastrointestinal^ 1st specimenon 03-19-2025 Hemoglobin.gastroint estinal spec 1 Ql (Stl) Positive Abnormal Negative [facility] Comment on above: Order Comment: From gastric contents Performed By: #### 1 4563-1 ####CALE Roth ([id number])[facility] ([facility])[address] [place] [address] 29961 Procalcitoninon 03-19-2025 Procalcitonin [Mass/Vol] ng/mL Normal <=0.07 [facility] Comment on above: Order Comment: Proca [...] Performed By: #### 3 3959-8 ####CALE Roth ([id number])[facility] ([facility])[address]148 [place] [address] Renal function 2000 panelon 03-19-2025 Albumin BCP dye [Mass/Vol] 4.0 g/dL Normal 3.4-5.0 [facility] Comment on above: Performed By: #### 2 4362-6 ####CALE Roth ([id number])[facility] ([facility])[address]97 [place] [address] Anion gap [Moles/Vol] 10 mmol/L Normal 10-20 [facility] Comment on above: Performed By: #### 2 4362-6 ####CALE Roth ([id number])[facility] ([facility])[address]150 [place] [address] Calcium [Mass/Vol] 9.5 mg/dL Normal 8.6-10.6 [facility] Comment on above: Performed By: #### 2 4362-6 ####CALE Roth ([id number])[facility] ([facility])[address] [place] [address] Chloride [Moles/Vol] 105 mmol/L Normal 98-107 [facility] Comment on above: Performed By: #### 2 4362-6 ####CALE CAI L ([id number])[facility] ([facility])[address] [place] [address] CO2 [Moles/Vol] 30 mmol/L Normal 21-[address] [facility] Comment on above: Performed By: #### 2 4362-6 ####CALE Roth ([id number])[facility] ([facility])[address]26 [place] [address] Creatinine [Mass/Vol] 0.45 mg/dL Low 0.50-1.05 [facility] Comment on above: Performed By: #### 2 4362-6 ####CALE Roth ([id number])[facility] ([facility])[address]17 [place] [address] Glomerular filtration rate >90 Normal >60 [facility] Comment on above: Result Comment: Calc ulations of estimated GFR are performed using the 2020 CKD-EPI Study Refit equation without the race variable for the IDMS-Traceable creatinine methods.https://jasn.asnjournals.org/content//ASN .9352891293 Performed By: #### 2 4362-6 ####CALE Roth ([id number])[facility] ([facility])[address]91 [place] [address] Glucose [Mass/Vol] 129 mg/dL High 74-99 [facility] Comment on above: Performed By: #### 2 4362-6 ####CALE CAI L ([id number])[facility] ([facility])[address]91 [place] [address] Phosphate [Mass/Vol] 2.8 mg/dL Normal 2.5-4.9 [facility] Comment on above: Performed By: #### 2 4362-6 ####CALE Roth ([id number])[facility] ([facility])[address]751 [place] [address] Potassium [Moles/Vol] 3.6 mmol/L Normal 3.5-5.3 [facility] Comment on above: Performed By: #### 2 4362-6 ####CALE Roth ([id number])[facility] ([facility])[address]6954 [place] [address] Sodium [Moles/Vol] 141 mmol/L Normal 136-145 [facility] Comment on above: Performed By: #### 2 4362-6 ####CALE Roth ([id number])[facility] ([facility])[address]809 [place] [address] Urea nitrogen [Mass/Vol] 13 mg/dL Normal 6-23 [facility] Comment on above: Performed By: #### 2 4362-6 ####CALE Roth ([id number])[facility] ([facility])[address]315 [place] [address] VASC US TRANSCRANIAL DOPPLER (TCD) COMPLETEon 03-19-2025 VASC US TRANSCRANIAL DOPPLER (TCD) COMPLETE Normal [facility] CBC W Auto Differential pane l (Bld)on 03-18-2025 Basophils (Bld) [#/Vol] 0.04 x10*3/uL Normal 0.00-0.10 [facility] Comment on above: Performed By: #### 5 7021-8 ####CALE Roth ([id number])[facility] ([facility])[address]39 [place] [address] Basophils/100 WBC (Bld) 0.4 % Normal 0.0-2.0 [facility] Comment on above: Performed By: #### 5 7021-8 ####CALE Roth ([id number])[facility] ([facility])[address]71 [place] [address] Eosinophils (Bld) [#/Vol] 0.01 x10*3/uL Normal 0.00-0.70 [facility] Comment on above: Performed By: #### 5 7021-8 ####CALE Roth ([id number])[facility] ([facility])[address] [place] [address] 24520 Eosinophils/100 WBC (Bld) 0.1 % Normal 0.0-6.0 [facility] Comment on above: Performed By: #### 5 7021-8 ####CALE Roth ([id number])[facility] ([facility])[address] [place] [address] 92395 Erythrocyte distribution width (RBC) [Ratio] 13.2 % Normal 11.5-14.5 [facility] Comment on above: Performed By: #### 5 7021-8 ####CALE Roth ([id number])[facility] ([facility])[address] [place] [address] 67[address] Hematocrit (Bld) [Volume fraction] 33.4 % Low 36.0-46.0 [facility] Comment on above: Performed By: #### 5 7021-8 ####CALE Roth ([id number])[facility] ([facility])[address] [place] [address] 14375 Hemoglobin (Bld) [Mass/Vol] 11.1 g/dL Low 12.0-16.0 [facility] Comment on above: Performed By: #### 5 7021-8 ####CALE Roth ([id number])[facility] ([facility])[address] [place] [address] 81491 Immature granulocytes (Bld) [#/Vol] 0.25 x10*3/uL Normal 0.00-0.70 [facility] Comment on above: Performed By: #### 5 7021-8 ####CALE Roth ([id number])[facility] ([facility])[address] [place] [address] 79674 Immature granulocytes/100 WBC (Bld) 2.5 % High 0.0-0.9 [facility] Comment on above: Result Comment: Aleisha ture Granulocyte Count (IG) includes promyelocytes, myelocytes and metamyelocytes but does not include bands. Percent differential counts (%) should be interpreted in the context of the absolute cell counts (cells/UL). Performed By: #### 5 7021-8 ####CALE Roth ([id number])[facility] ([facility])12764 [place] [address] Lymphocytes (Bld) [#/Vol] 0.77 x10*3/uL Low 1.20-4.80 [facility] Comment on above: Performed By: #### 5 7021-8 ####CALE Roth ([id number])[facility] ([facility])72542 [place] [address] Lymphocytes/100 WBC (Bld) 7.6 % Normal 13.0-44.0 [facility] Comment on above: Performed By: #### 5 7021-8 ####CALE Roth ([id number])[facility] ([facility])[address]012 [place] [address] MCH (RBC) [Entitic mass] 30.0 pg Normal 26.0-34.0 [facility] Comment on above: Performed By: #### 5 7021-8 ####CALE Roth ([id number])[facility] ([facility])37288 [place] [address] MCHC (RBC) [Mass/Vol] 33.2 g/dL Normal 32.0-36.0 [facility] Comment on above: Performed By: #### 5 7021-8 ####CALE Roth (85591)[facility] ([facility])24179 [place] [address] MCV (RBC) [Entitic vol] 90 fL Normal 80-100 [facility] Comment on above: Performed By: #### 5 7021-8 ####CALE Roth ([id number])[facility] ([facility])64394 [place] [address] Monocytes (Bld) [#/Vol] 0.43 x10*3/uL Normal 0.10-1.00 [facility] Comment on above: Performed By: #### 5 7021-8 ####CALE Roth ([id number])[facility] ([facility])53633 [place] [address] Monocytes/100 WBC (Bld) 4.2 % Normal 2.0-10.0 [facility] Comment on above: Performed By: #### 5 7021-8 ####CALE TOSCANOMOTZER L ([id number])[facility] ([facility])[address]45 [place] [address] Neutrophils (Bld) [#/Vol] 8.65 x10*3/uL High 1.20-7.70 [facility] Comment on above: Result Comment: Perc ent differential counts (%) should be interpreted in the context of the absolute cell counts (cells/uL). Performed By: #### 5 7021-8 ####CALE CAI L (12945)[facility] ([facility])[address]576 [place] [address] Neutrophils/100 WBC (Bld) 85.2 % Normal 40.0-80.0 [facility] Comment on above: Performed By: #### 5 7021-8 ####CALE Roth (29153)[facility] ([facility])29148 [place] [address] Nucleated RBC/100 WBC (Bld) [Ratio] 0.0 /100 WBCs Normal 0.0-0.0 [facility] Comment on above: Performed By: #### 5 7021-8 ####CALE TOSCANOMOTZER L (86281)[facility] ([facility])[address]11 [place] [address] Platelets (Bld) [#/Vol] 387 x10*3/uL Normal 150-450 [facility] Comment on above: Performed By: #### 5 7021-8 ####CALE TOSCANOMOISAURA L (40476)[facility] ([facility])64128 [place] [address] RBC (Bld) [#/Vol] 3.70 x10*6/uL Low 4.00-5.20 [facility] Comment on above: Performed By: #### 5 7021-8 ####CALE Roth (48593)[facility] ([facility])[address]18 [place] [address] WBC (Bld) [#/Vol] 10.2 x10*3/uL Normal 4.4-11.3 [facility] Comment on above: Performed By: #### 5 7021-8 ####CALE Roth (50888)[facility] ([facility])[address]854 [place] [address] CT HEAD WO IV CONTRASTon CT HEAD WO IV CONTRAST Normal [facility] Calcium.ionizedon 03-18-2025 Calcium.ionized (Bld) [Moles/Vol] 1.22 mmol/L Normal 1.1-1.33 [facility] Comment on above: Result Comment: The performance characteristics of ionized calcium testedin heparinized plasma or serum have [facility].Testing on heparinized plasma or serum is not approved bythe FDA; however, such approval is not necessary. Performed By: #### 1 994-3 ####CALE Roth (65058)[facility] ([facility])[address]298 [place] [address] Gas and Carbon monoxide and Electrolytes panel (BldA)on 03-18-2025 Anion gap 4 (BldA) [Moles/Vol] 10 mmo/L Normal 04-17 [facility] Comment on above: Performed By: #### 9 3685-6 ####CALE Roth (77450)[facility] ([facility])73664 [place] [address] Base excess Calc (Bld) [Moles/Vol] 4.4 mmol/L High -2.0-3.0 [facility] Comment on above: Performed By: #### 9 3685-6 ####CALE Roth (39280)[facility] ([facility])28887 [place] [address] Calcium.ionized (BldA) [Moles/Vol] 1.20 mmol/L Normal 1.10-1.33 [facility] Comment on above: Performed By: #### 9 3685-6 ####CALE Roth (69588)[facility] ([facility])98034 [place] [address] Chloride (BldA) [Moles/Vol] 107 mmol/L Normal 98-107 [facility] Comment on above: Performed By: #### 9 3685-6 ####CALE Roth ([id number])[facility] ([facility])[address] [place] [address] 48698 CO2 (Bld) [Partial pressure] 39 mm Hg Normal 38-42 [facility] Comment on above: Performed By: #### 9 3685-6 ####CALE Roth (19935)[facility] ([facility])[address] [place] [address] 08157 Glucose [Mass/Vol] 125 mg/dL High 74-99 [facility] Comment on above: Performed By: #### 9 3685-6 ####CALE Roth ([id number])[facility] ([facility])[address] [place] [address] 66846 HCO3 (Bld) [Moles/Vol] 28.4 mmol/L High 22.0-26.0 [facility] Comment on above: Performed By: #### 9 3685-6 ####CALE Roth ([id number])[facility] ([facility])[address] [place] [address] 96644 Hematocrit Est (Bld) [Volume fraction] 34.0 % Low 36.0-46.0 [facility] Comment on above: Performed By: #### 9 3685-6 ####CALE Roth ([id number])[facility] ([facility])[address] [place] [address] 90212 Hemoglobin (Bld) [Mass/Vol] 11.3 g/dL Low 12.0-16.0 [facility] Comment on above: Performed By: #### 9 3685-6 ####CALE Roth ([id number])[facility] ([facility])51332 [place] [address] Inhaled oxygen concentration 30 % Normal [facility] Comment on above: Performed By: #### 9 3685-6 ####CALE Roth ([id number])[facility] ([facility])[address] [place] [address] 23394 Lactate (BldA) [Moles/Vol] 0.6 mmol/L Normal 0.4-2.0 [facility] Comment on above: Performed By: #### 9 3685-6 ####CALE Roth ([id number])[facility] ([facility])[address] [place] [address] 97720 Oxygen (Bld) [Partial pressure] 142 mm Hg High 85-95 [facility] Comment on above: Performed By: #### 9 3685-6 ####CALE Roth (07876)[facility] ([facility])[address] [place] [address] 90095 Oxyhemoglobin (BldA) [Mass fraction] 98.2 % High 94.0-98.0 [facility] Comment on above: Performed By: #### 9 3685-6 ####CALE Roth (50656)[facility] ([facility])[address] [place] [address] 26093 pH (Bld) 7.47 [pH] High 7.38-7.42 [facility] Comment on above: Performed By: #### 9 9345-6 ####CALE Roth ([id number])[facility] ([facility])[address] [place] [address] 9[address] Potassium (BldA) [Moles/Vol] 3.2 mmol/L Low 3.5-5.3 [facility] Comment on above: Performed By: #### 9 9755-6 ####CALE Roth ([id number])[facility] ([facility])47693 [place] [address] Sodium (BldA) [Moles/Vol] 142 mmol/L Normal 136-145 [facility] Comment on above: Performed By: #### 9 3685-6 ####CALE Roth ([id number])[facility] ([facility])16224 [place] [address] Glucose Test strip manual (B ld) [Mass/Vol]on 03-18-2025 Glucose [Mass/Vol] 119 mg/dL High 74-99 [facility] Comment on above: Performed By: #### 2 341-6 ####CALE Roth ([id number])[facility] ([facility])13813 [place] [address] Glucose [Mass/Vol] 144 mg/dL High 74-99 [facility] Comment on above: Performed By: #### 2 341-6 ####CALE Roth ([id number])[facility] ([facility])15481 [place] [address] Glucose [Mass/Vol] 99 mg/dL Normal 74-99 [facility] Comment on above: Performed By: #### 2 341-6 ####CALE Roth (32001)[facility] ([facility])76304 [place] [address] Glucose [Mass/Vol] 99 mg/dL Normal 74-99 [facility] Comment on above: Performed By: #### 2 341-6 ####CALE Roth ([id number])[facility] ([facility])99908 [place] [address] Glucose [Mass/Vol] 131 mg/dL High 74-99 [facility] Comment on above: Performed By: #### 2 341-6 ####CALE Roth ([id number])[facility] ([facility])10641 [place] [address] MR BRAIN WO IV CONTRASTon MR BRAIN WO IV CONTRAST Normal [facility] Magnesiumon 03-18-2025 Magnesium [Mass/Vol] 2.17 mg/dL Normal 1.60-2.40 [facility] Comment on above: Performed By: #### 1 9123-9 ####CALE Roth ([id number])[facility] ([facility])26704 [place] [address] Renal function 2000 panelon 03-18-2025 Albumin BCP dye [Mass/Vol] 4.2 g/dL Normal 3.4-5.0 [facility] Comment on above: Performed By: #### 2 4362-6 ####CALE Roth ([id number])[facility] ([facility])[address] [place] [address] 34727 Anion gap [Moles/Vol] 11 mmol/L Normal 10-20 [facility] Comment on above: Performed By: #### 2 4362-6 ####CALE Roth ([id number])[facility] ([facility])[address]78 [place] [address] Calcium [Mass/Vol] 9.6 mg/dL Normal 8.6-10.6 [facility] Comment on above: Performed By: #### 2 4362-6 ####CALE Roth ([id number])[facility] ([facility])84324 [place] [address] Chloride [Moles/Vol] 104 mmol/L Normal 98-107 [facility] Comment on above: Performed By: #### 2 4362-6 ####CALE Roth ([id number])[facility] ([facility])[address]13 [place] [address] CO2 [Moles/Vol] 29 mmol/L Normal 21-[address] [facility] Comment on above: Performed By: #### 2 4362-6 ####CALE Roth ([id number])[facility] ([facility])89302 [place] [address] Creatinine [Mass/Vol] 0.48 mg/dL Low 0.50-1.05 [facility] Comment on above: Performed By: #### 2 4362-6 ####CALE Roht (81054)[facility] ([facility])[address]1922 [place] [address] Glomerular filtration rate >90 Normal >60 [facility] Comment on above: Result Comment: Calc ulations of estimated GFR are performed using the 2020 CKD-EPI Study Refit equation without the race variable for the IDMS-Traceable creatinine methods.https://jasn.asnjournals.org/content//ASN .3847028919 Performed By: #### 2 4362-6 ####CALE Roth ([id number])[facility] ([facility])45548 [place] [address] Glucose [Mass/Vol] 130 mg/dL High 74-99 [facility] Comment on above: Performed By: #### 2 4362-6 ####CALE Roth ([id number])[facility] ([facility])[address]97 [place] [address] Phosphate [Mass/Vol] 2.3 mg/dL Low 2.5-4.9 [facility] Comment on above: Performed By: #### 2 4362-6 ####CALE Roth ([id number])[facility] ([facility])[address]77 [place] [address] Potassium [Moles/Vol] 3.1 mmol/L Low 3.5-5.3 [facility] Comment on above: Performed By: #### 2 4362-6 ####CALE Roth ([id number])[facility] ([facility])35387 [place] [address] Sodium [Moles/Vol] 141 mmol/L Normal 136-145 [facility] Comment on above: Performed By: #### 2 4362-6 ####CALE Roth ([id number])[facility] ([facility])59780 [place] [address] Urea nitrogen [Mass/Vol] 17 mg/dL Normal 6-23 [facility] Comment on above: Performed By: #### 2 4362-6 ####CALE Roth ([id number])[facility] ([facility])87492 [place] [address] XR CHEST 1 VIEWon 03-18-2025 XR CHEST [address] [facility] CBC W Auto Differential pane l (Bld)on 03-17-2025 Basophils (Bld) [#/Vol] 0.03 x10*3/uL Normal 0.00-0.10 [facility] Comment on above: Performed By: #### 5 7021-8 ####CALE Roth ([id number])[facility] ([facility])[address] [place] [address] 37593 Basophils/100 WBC (Bld) 0.3 % Normal 0.0-2.0 [facility] Comment on above: Performed By: #### 5 7021-8 ####CALE Roth ([id number])[facility] ([facility])87527 [place] [address] Eosinophils (Bld) [#/Vol] 0.00 x10*3/uL Normal 0.00-0.70 [facility] Comment on above: Performed By: #### 5 7021-8 ####CALE Roth ([id number])[facility] ([facility])39551 [place] [address] Eosinophils/100 WBC (Bld) 0.0 % Normal 0.0-6.0 [facility] Comment on above: Performed By: #### 5 7021-8 ####CALE Roth (46700)[facility] ([facility])73996 [place] [address] Erythrocyte distribution width (RBC) [Ratio] 13.0 % Normal 11.5-14.5 [facility] Comment on above: Performed By: #### 5 7021-8 ####CALE Roth ([id number])[facility] ([facility])88482 [place] [address] Hematocrit (Bld) [Volume fraction] 27.5 % Low 36.0-46.0 [facility] Comment on above: Performed By: #### 5 7021-8 ####CALE Roth ([id number])[facility] ([facility])49288 [place] [address] Hemoglobin (Bld) [Mass/Vol] 9.7 g/dL Low 12.0-16.0 [facility] Comment on above: Performed By: #### 5 7021-8 ####CALE Roth ([id number])[facility] ([facility])23349 [place] [address] Immature granulocytes (Bld) [#/Vol] 0.18 x10*3/uL Normal 0.00-0.70 [facility] Comment on above: Performed By: #### 5 7021-8 ####CALE Roth ([id number])[facility] ([facility])[address]1659 [place] [address] Immature granulocytes/100 WBC (Bld) 1.8 % High 0.0-0.9 [facility] Comment on above: Result Comment: Aleisha ture Granulocyte Count (IG) includes promyelocytes, myelocytes and metamyelocytes but does not include bands. Percent differential counts (%) should be interpreted in the context of the absolute cell counts (cells/UL). Performed By: #### 5 7021-8 ####CALE Roth ([id number])[facility] ([facility])[address]6986 [place] [address] Lymphocytes (Bld) [#/Vol] 0.65 x10*3/uL Low 1.20-4.80 [facility] Comment on above: Performed By: #### 5 7021-8 ####CALE Roth ([id number])[facility] ([facility])[address]50 [place] [address] Lymphocytes/100 WBC (Bld) 6.4 % Normal 13.0-44.0 [facility] Comment on above: Performed By: #### 5 7021-8 ####CALE Roth ([id number])[facility] ([facility])[address] [place] [address] 84604 MCH (RBC) [Entitic mass] 29.9 pg Normal 26.0-34.0 [facility] Comment on above: Performed By: #### 5 7021-8 ####CALE Roth ([id number])[facility] ([facility])[address] [place] [address] 20003 MCHC (RBC) [Mass/Vol] 35.3 g/dL Normal 32.0-36.0 [facility] Comment on above: Performed By: #### 5 7021-8 ####CALE Roth ([id number])[facility] ([facility])[address] [place] [address] 72228 MCV (RBC) [Entitic vol] 85 fL Normal 80-100 [facility] Comment on above: Performed By: #### 5 7021-8 ####CALE Roth ([id number])[facility] ([facility])[address] [place] [address] 77493 Monocytes (Bld) [#/Vol] 0.52 x10*3/uL Normal 0.10-1.00 [facility] Comment on above: Performed By: #### 5 7021-8 ####CALE Roth ([id number])[facility] ([facility])[id number] [place] [address] 08603 Monocytes/100 WBC (Bld) 5.1 % Normal 2.0-10.0 [facility] Comment on above: Performed By: #### 5 7021-8 ####CALE Roth ([id number])[facility] ([facility])[address] [place] [address] 68894 Neutrophils (Bld) [#/Vol] 8.82 x10*3/uL High 1.20-7.70 [facility] Comment on above: Result Comment: Perc ent differential counts (%) should be interpreted in the context of the absolute cell counts (cells/uL). Performed By: #### 5 7021-8 ####CALE Roth ([id number])[facility] ([facility])[address] [place] [address] Neutrophils/100 WBC (Bld) 86.4 % Normal 40.0-80.0 [facility] Comment on above: Performed By: #### 5 7021-8 ####CALE Roth ([id number])[facility] ([facility])[address] [place] [address] Nucleated RBC/100 WBC (Bld) [Ratio] 0.0 /100 WBCs Normal 0.0-0.0 [facility] Comment on above: Performed By: #### 5 7021-8 ####CALE Roth ([id number])[facility] ([facility])[address] [place] [address] Platelets (Bld) [#/Vol] 279 x10*3/uL Normal 150-450 [facility] Comment on above: Performed By: #### 5 7021-8 ####CALE Roth ([id number])[facility] ([facility])[address] [place] [address] RBC (Bld) [#/Vol] 3.24 x10*6/uL Low 4.00-5.20 [facility] Comment on above: Performed By: #### 5 7021-8 ####CALE Roth ([id number])[facility] ([facility])[address] [place] [address] WBC (Bld) [#/Vol] 10.2 x10*3/uL Normal 4.4-11.3 [facility] Comment on above: Performed By: #### 5 7021-8 ####CALE Roth ([id number])[facility] ([facility])[address] [place] [address] CT ANGIO CHEST FOR PULMONARY EMBOLISMon 03-17-2025 CT ANGIO CHEST FOR PULMONARY EMBOLISM Normal [facility] Calcium.ionizedon 03-17-2025 Calcium.ionized (Bld) [Moles/Vol] 1.17 mmol/L Normal 1.1-1.33 [facility] Comment on above: Result Comment: The performance characteristics of ionized calcium testedin heparinized plasma or serum have been validated by theindividual laboratory site where testing is performed.Testing on heparinized plasma or serum is not approved bythe FDA; however, such approval is not necessary. Performed By: #### 1 994-3 ####CALE Roth ([id number])[facility] ([facility])[address] [place] [address] ECG 12-LEADon 03-17-2025 ECG 12-LEAD Ventricular Rate 120 Atrial Rate 120 P-R Interval 160 QRS Duration 78 Q-T Interval 320 QTC Calculation(Bazett) 452 P [place] 73 R [place] 90 T [place] 51 QRS Count 20 Q Onset 220 P Onset 140 P Offset 204 T Offset 380 QTC Fredericia 403 Diagnosis Sinus tachycardia Rightward axis Borderline ECG When compared with ECG of 17-MAR-2025 15:02, No significant change was found Confirmed by Derek Jiang ([id number]) on 03/18/2025 4:39:12 PM Normal [facility] Gas and Carbon monoxide and Electrolytes panel (BldA)on 03-17-2025 Anion gap 4 (BldA) [Moles/Vol] 12 mmo/L Normal - [facility] Comment on above: Performed By: #### 9 3685-6 ####CALE Roth ([id number])[facility] ([facility])[address] [place] [address] Base excess Calc (Bld) [Moles/Vol] 1.6 mmol/L Normal -2.0-3.0 [facility] Comment on above: Performed By: #### 9 3685-6 ####CALE Roth ([id number])[facility] ([facility])[address] [place] [address] Calcium.ionized (BldA) [Moles/Vol] 1.20 mmol/L Normal 1.10-1.33 [facility] Comment on above: Performed By: #### 9 8895-6 ####CALE Roth ([id number])[facility] ([facility])[address]367 [place] [address] Chloride (BldA) [Moles/Vol] 109 mmol/L High 98-107 [facility] Comment on above: Performed By: #### 9 1715-6 ####CALE Roth ([id number])[facility] ([facility])[address]329 [place] [address] CO2 (Bld) [Partial pressure] 32 mm Hg Low 38-42 [facility] Comment on above: Performed By: #### 9 8005-6 ####CALE Roth ([id number])[facility] ([facility])[address] [place] [address] Glucose [Mass/Vol] 153 mg/dL High 74-99 [facility] Comment on above: Performed By: #### 9 9353-6 ####CALE Roth ([id number])[facility] ([facility])[address] [place] [address] HCO3 (Bld) [Moles/Vol] 24.4 mmol/L Normal 22.0-26.0 [facility] Comment on above: Performed By: #### 9 8165-6 ####CALE Roth ([id number])[facility] ([facility])[address]486 [place] [address] Hematocrit Est (Bld) [Volume fraction] 37.0 % Normal 36.0-46.0 [facility] Comment on above: Performed By: #### 9 0585-6 ####CALE Roth ([id number])[facility] ([facility])[address] [place] [address] Hemoglobin (Bld) [Mass/Vol] 12.3 g/dL Normal 12.0-16.0 [facility] Comment on above: Performed By: #### 9 7909-6 ####CALE Roth ([id number])[facility] ([facility])[address]07 [place] [address] Inhaled oxygen concentration 30 % Normal [facility] Comment on above: Performed By: #### 9 3685-6 ####CALE Roth ([id number])[facility] ([facility])[address]404 [place] [address] Lactate (BldA) [Moles/Vol] 0.9 mmol/L Normal 0.4-2.0 [facility] Comment on above: Performed By: #### 9 3685-6 ####CALE Roth ([id number])[facility] ([facility])[address]71 [place] [address] Oxygen (Bld) [Partial pressure] 133 mm Hg High 85-95 [facility] Comment on above: Performed By: #### 9 3685-6 ####CALE Roth ([id number])[facility] ([facility])[address] [place] [address] Oxyhemoglobin (BldA) [Mass fraction] 97.5 % Normal 94.0-98.0 [facility] Comment on above: Performed By: #### 9 3685-6 ####CALE Roth ([id number])[facility] ([facility])[address] [place] [address]85 pH (Bld) 7.49 [pH] High 7.38-7.42 [facility] Comment on above: Performed By: #### 9 3685-6 ####CALE Roth ([id number])[facility] ([facility])[address] [place] [address] Potassium (BldA) [Moles/Vol] 3.5 mmol/L Normal 3.5-5.3 [facility] Comment on above: Performed By: #### 9 3685-6 ####CALE Roth ([id number])[facility] ([facility])[address]447 [place] [address] Sodium (BldA) [Moles/Vol] 142 mmol/L Normal 136-145 [facility] Comment on above: Performed By: #### 9 3685-6 ####CALE CAI L ([id number])[facility] ([facility])[address]01 [place] [address] Glucose Test strip manual (B ld) [Mass/Vol]on 03-17-2025 Glucose [Mass/Vol] 133 mg/dL High [address] [place] [address] Comment on above: Performed By: #### 2 341-6 ####CALE CAI L ([id number])[facility] ([facility])[address] [place] [address] Glucose [Mass/Vol] 136 mg/dL High [address] [place] [address] Comment on above: Performed By: #### 2 341-6 ####CALE CAI L ([id number])[facility] ([facility])[address]64 [place] [address] Glucose [Mass/Vol] 134 mg/dL High [address] [place] [address] Comment on above: Performed By: #### 2 341-6 ####CALE CAI L ([id number])[facility] ([facility])[address]30 [place] [address] Glucose [Mass/Vol] 143 mg/dL High [address] [place] [address] Comment on above: Performed By: #### 2 341-6 ####CALE TOSCANOMOTZGONZALEZ L ([id number])[facility] ([facility])[address]286 [place] [address] Glucose [Mass/Vol] 131 mg/dL High [address] [place] [address] Comment on above: Performed By: #### 2 341-6 ####CALE CAI L ([id number])[facility] ([facility])[address]506 [place] [address] Glucose [Mass/Vol] 143 mg/dL High [address] [place] [address] Comment on above: Performed By: #### 2 341-6 ####CALE TOSCANOMOTZGONZALEZ L ([id number])[facility] ([facility])[address]956 [place] [address] IR ANGIOGRAM CEREBRAL BILATE RALon 03-17-2025 IR ANGIOGRAM CEREBRAL BILATERAL Normal [facility] Magnesiumon 03-17-2025 Magnesium [Mass/Vol] 1.92 mg/dL Normal 1.60-2.40 [facility] Comment on above: Performed By: #### 1 9123-9 ####CALE Roth ([id number])[facility] ([facility])[address]60 [place] [address] Renal function 2000 panelon 03-17-2025 Albumin BCP dye [Mass/Vol] 4.1 g/dL Normal 3.4-5.0 [facility] Comment on above: Performed By: #### 2 4362-6 ####CALE Roth ([id number])[facility] ([facility])[address] [place] [address]48 Anion gap [Moles/Vol] 15 mmol/L Normal 10-20 [facility] Comment on above: Performed By: #### 2 4362-6 ####CALE Roth ([id number])[facility] ([facility])[address]210 [place] [address] Calcium [Mass/Vol] 9.2 mg/dL Normal 8.6-10.6 [facility] Comment on above: Performed By: #### 2 4362-6 ####CALE Roth ([id number])[facility] ([facility])[address]651 [place] [address] Chloride [Moles/Vol] 107 mmol/L Normal 98-107 [facility] Comment on above: Performed By: #### 2 4362-6 ####CALE Roth ([id number])[facility] ([facility])[address]34 [place] [address] CO2 [Moles/Vol] 25 mmol/L Normal 21-[address] [facility] Comment on above: Performed By: #### 2 4362-6 ####CALE Roth ([id number])[facility] ([facility])[address]339 [place] [address] Creatinine [Mass/Vol] 0.41 mg/dL Low 0.50-1.05 [facility] Comment on above: Performed By: #### 2 4362-6 ####CALE Roth ([id number])[facility] ([facility])[address] [place] [address] Glomerular filtration rate >90 Normal >60 [facility] Comment on above: Result Comment: Calc ulations of estimated GFR are performed using the 2020 CKD-EPI Study Refit equation without the race variable for the IDMS-Traceable creatinine methods.https://jasn.asnjournals.org/content//ASN .6852023746 Performed By: #### 2 4362-6 ####CALE Roth ([id number])[facility] ([facility])[address]508 [place] [address] Glucose [Mass/Vol] 152 mg/dL High 74-99 [facility] Comment on above: Performed By: #### 2 4362-6 ####CALE Roth ([id number])[facility] ([facility])[address]12 [place] [address] Phosphate [Mass/Vol] 3.0 mg/dL Normal 2.5-4.9 [facility] Comment on above: Performed By: #### 2 4362-6 ####CALE Roth ([id number])[facility] ([facility])[address]71 [place] [address] Potassium [Moles/Vol] 3.5 mmol/L Normal 3.5-5.3 [facility] Comment on above: Performed By: #### 2 4362-6 ####CALE Roth ([id number])[facility] ([facility])[address]11 [place] [address] Sodium [Moles/Vol] 143 mmol/L Normal 136-145 [facility] Comment on above: Performed By: #### 2 4362-6 ####CALE Roth ([id number])[facility] ([facility])[address]27 [place] [address] Urea nitrogen [Mass/Vol] 12 mg/dL Normal 6-23 [facility] Comment on above: Performed By: #### 2 4362-6 ####CALE Roth ([id number])[facility] ([facility])[address] [facility] [place] [place] [address] Albumin BCP dye [Mass/Vol] 3.8 g/dL Normal 3.4-5.0 [facility] Comment on above: Performed By: #### 2 4362-6 ####CALE Roth ([id number])[facility] ([facility])[address]45 [place] [address] Anion gap [Moles/Vol] 12 mmol/L Normal 10-20 [facility] Comment on above: Performed By: #### 2 4362-6 ####CALE Roth ([id number])[facility] ([facility])[address]105 [place] [address] Calcium [Mass/Vol] 9.1 mg/dL Normal 8.6-10.6 [facility] Comment on above: Performed By: #### 2 4362-6 ####CALE Roth ([id number])[facility] ([facility])[address]23 [place] [address] Chloride [Moles/Vol] 110 mmol/L High 98-107 [facility] Comment on above: Performed By: #### 2 4362-6 ####CALE Roth ([id number])[facility] ([facility])[address]19 [place] [address] CO2 [Moles/Vol] 25 mmol/L Normal 21-[address] [facility] Comment on above: Performed By: #### 2 4362-6 ####CALE Roth ([id number])[facility] ([facility])[address]25 [place] [address] Creatinine [Mass/Vol] 0.38 mg/dL Low 0.50-1.05 [facility] Comment on above: Performed By: #### 2 4362-6 ####CALE CAI L ([id number])[facility] ([facility])[address]87 [place] [address] Glomerular filtration rate >90 Normal >60 [facility] Comment on above: Result Comment: Calc ulations of estimated GFR are performed using the 2020 CKD-EPI Study Refit equation without the race variable for the IDMS-Traceable creatinine methods.https://jasn.asnjournals.org/content/early//ASN .5005347385 Performed By: #### 2 4362-6 ####CALE Roth ([id number])[facility] ([facility])[address]1991 [place] [address] Glucose [Mass/Vol] 145 mg/dL High 74-99 [facility] Comment on above: Performed By: #### 2 4362-6 ####CALE CAI L ([id number])[facility] ([facility])[address]998 [place] [address] Phosphate [Mass/Vol] 2.0 mg/dL Low 2.5-4.9 [facility] Comment on above: Performed By: #### 2 4362-6 ####CALE CAI L (46893)[facility] ([facility])[address]480 [place] [address] Potassium [Moles/Vol] 3.3 mmol/L Low 3.5-5.3 [facility] Comment on above: Performed By: #### 2 4362-6 ####CALE CAI L ([id number])[facility] ([facility])[address]28 [place] [address] Sodium [Moles/Vol] 144 mmol/L Normal 136-145 [facility] Comment on above: Performed By: #### 2 4362-6 ####CALE TOSCANOMOISAURA L ([id number])[facility] ([facility])30683 [place] [address] Urea nitrogen [Mass/Vol] 9 mg/dL Normal 12-14 [facility] Comment on above: Performed By: #### 2 4362-6 ####CALE Roth ([id number])[facility] ([facility])[address]24 [place] [address] VASC US TRANSCRANIAL DOPPLER (TCD) COMPLETEon 03-17-2025 VASC US TRANSCRANIAL DOPPLER (TCD) COMPLETE Normal [facility] XR CHEST 1 VIEWon 03-17-2025 XR CHEST [address] [facility] Bacteriaon 03-16-2025 Bacteria identified Cx Nom (CSF) Normal [facility] Comment on above: Performed By: #### 6 06-4 ####CALE Roth ([id number])[facility] ([facility])[address] [place] [address]140 CBC W Auto Differential pane l (Bld)on 03-16-2025 Erythrocyte distribution width (RBC) [Ratio] 12.6 % Normal 11.5-14.5 [facility] Comment on above: Order Comment: The [...] Performed By: #### 5 7021-8 ####CALE Roth ([id number])[facility] ([facility])[address]45 [place] [address] Hematocrit (Bld) [Volume fraction] 26.1 % Low 36.0-46.0 [facility] Comment on above: Order Comment: The [...] Performed By: #### 5 7021-8 ####CALE Roth (62005)[facility] ([facility])[address] [place] [address] 22656 Hemoglobin (Bld) [Mass/Vol] 8.9 g/dL Low 12.0-16.0 [facility] Comment on above: Order Comment: The [...] Performed By: #### 5 7021-8 ####CALE Roth ([id number])[facility] ([facility])[address] [place] [address]2726 Immature granulocytes (Bld) [#/Vol] 0.23 x10*3/uL Normal 0.00-0.70 [facility] Comment on above: Order Comment: The [...] Performed By: #### 5 7021-8 ####CALE Roth ([id number])[facility] ([facility])[address]335 [place] [address] Immature granulocytes/100 WBC (Bld) 2.5 % High 0.0-0.9 [facility] Comment on above: Order Comment: The [...] By: #### 5 7021-8 ####CALE CAI L ([id number])[facility] ([facility])[address]120 [place] [address] MCH (RBC) [Entitic mass] 30.2 pg Normal 26.0-34.0 [facility] Comment on above: Order Comment: The [...] By: #### 5 7021-8 ####CALE TOSCANOMOBALJITER L ([id number])[facility] ([facility])[address]18 [place] [address] MCHC (RBC) [Mass/Vol] 34.1 g/dL Normal 32.0-36.0 [facility] Comment on above: Order Comment: The [...] Performed By: #### 5 7021-8 ####CALE Roth ([id number])[facility] ([facility])[address]38 [place] [address] MCV (RBC) [Entitic vol] 89 fL Normal 80-100 [facility] Comment on above: Order Comment: The [...] Performed By: #### 5 7021-8 ####CALE Roth ([id number])[facility] ([facility])[address]218 [place] [address] Nucleated RBC/100 WBC (Bld) [Ratio] 0.0 /100 WBCs Normal 0.0-0.0 [facility] Comment on above: Order Comment: The [...] Performed By: #### 5 7021-8 ####CALE Roth ([id number])[facility] ([facility])[address]27 [place] [address] Platelets (Bld) [#/Vol] 219 x10*3/uL Normal 150-450 [facility] Comment on above: Order Comment: The [...] Performed By: #### 5 7021-8 ####CALE Roth ([id number])[facility] ([facility])36755 [place] [address] RBC (Bld) [#/Vol] 2.95 x10*6/uL Low 4.00-5.20 [facility] Comment on above: Order Comment: [...] By: #### 5 7021-8 ####CALE TOSCANOMOTZGONZALEZ Roth ([id number])[facility] ([facility])[address]592 [place] [address] WBC (Bld) [#/Vol] 9.3 x10*3/uL Normal 4.4-11.3 [facility] Comment on above: Order Comment: [...] Performed By: #### 5 7021-8 ####CALE Roth ([id number])[facility] ([facility])[address] [place] [address] 28874 CSF CELL COUNTon 03-16-2025 Appearance (CSF) Clear Normal Clear [facility] Comment on above: Order Comment: CSF c ell count reference ranges have not been established by [facility]. Based on published references. Performed By: #### C TCS4 ####CALE Roth ([id number])[facility] ([facility])[address] [place] [address] 13495 Color (CSF) Straw Abnormal Colorless [facility] Comment on above: Order Comment: CSF c ell count reference ranges have not been established by [facility]. Based on published references. Performed By: #### C TCS4 ####CALE TOSCANOMOTZER L ([id number])[facility] ([facility])[address]808 [place] [address] Color (Spun CSF) Colorless Normal [facility] Comment on above: Order Comment: CSF c ell count reference ranges have not been established by [facility]. Based on published references. Performed By: #### C TCS4 ####CALE TOSCANOMOTZER L ([id number])[facility] ([facility])[address] [place] [address] 12099 RBC Auto (CSF) [#/Vol] 3000 /uL High 0-5 [facility] Comment on above: Order Comment: CSF c ell count reference ranges have not been established by [facility]. Based on published references. Performed By: #### C TCS4 ####CALE Roth ([id number])[facility] ([facility])[address] [place] [address] 04064 Tube number Nom (CSF) [ID] Tube 1 Normal [facility] Comment on above: Order Comment: CSF c ell count reference ranges have not been established by [facility]. Based on published references. Performed By: #### C TCS4 ####CALE Roth ([id number])[facility] ([facility])[address] [place] [address] WBC Auto (CSF) [#/Vol] <3 Normal 1-5 [facility] Comment on above: Order Comment: CSF c ell count reference ranges have not been established by [facility]. Based on published references. Performed By: #### C TCS4 ####CALE Roth ([id number])[facility] ([facility])[address] [place] [address] 24239 CSF DIFFERENTIALon 5 Cells Counted Total (CSF) [#] 2 Normal [facility] Comment on above: Order Comment: CSF c ell differential reference ranges have not been established by [facility]. Based on published references. Performed By: #### D FCSF ####CALE Roth ([id number])[facility] ([facility])[address] [place] [address] 11938 Lymphocytes/100 WBC Manual cnt (CSF) 50 % Normal 28-96 [facility] Comment on above: Order Comment: CSF c ell differential reference ranges have not been established by [facility]. Based on published references. Performed By: #### D FCSF ####CALE Roth ([id number])[facility] ([facility])[address]64 [place] [address] Monocytes+Macrophage s/100 WBC Manual cnt (CSF) 50 % Normal 16-56 [facility] Comment on above: Order Comment: CSF c ell differential reference ranges have not been established by [facility]. Based on published references. Performed By: #### D FCSF ####CALE Roth ([id number])[facility] ([facility])[address]235 [place] [address] Segmented neutrophils/100 WBC Manual cnt (CSF) 0 % Normal 0-5 [facility] Comment on above: Order Comment: CSF c ell differential reference ranges have not been established by [facility]. Based on published references. Performed By: #### D FCSF ####CALE Roth ([id number])[facility] ([facility])[address] [place] [address] CT HEAD WO IV CONTRASTon CT HEAD WO IV CONTRAST Normal [facility] Calcium.ionizedon 03-16-2025 Calcium.ionized (Bld) [Moles/Vol] 1.15 mmol/L Normal 1.1-1.33 [facility] Comment on above: Result Comment: The performance characteristics of ionized calcium testedin heparinized plasma or serum [facility].Testing on heparinized plasma or serum is not approved bythe FDA; however, such approval is not necessary. Performed By: #### 1 994-3 ####CALE Roth ([id number])[facility] ([facility])[address]32 [place] [address] Glucoseon 03-16-2025 Glucose (CSF) [Mass/Vol] 85 mg/dL High 40-70 [facility] Comment on above: Performed By: #### 2 342-4 ####CALE Roth ([id number])[facility] ([facility])[address]34 [place] [address] Glucose Test strip manual (B ld) [Mass/Vol]on 03-16-2025 Glucose [Mass/Vol] 124 mg/dL High 74-99 [facility] Comment on above: Performed By: #### 2 341-6 ####CALE Roth ([id number])[facility] ([facility])[address]375 [place] [address] Glucose [Mass/Vol] 158 mg/dL High [address] [place] [address] Comment on above: Performed By: #### 2 341-6 ####CALE Roth ([id number])[facility] ([facility])[address]344 [place] [address] Glucose [Mass/Vol] 143 mg/dL High [address] [place] [address] Comment on above: Performed By: #### 2 341-6 ####CALE Roth ([id number])[facility] ([facility])[address]249 [place] [address] Glucose [Mass/Vol] 143 mg/dL High [address] [place] [address] Comment on above: Performed By: #### 2 341-6 ####CALE Roth ([id number])[facility] ([facility])[address]107 [place] [address] Glucose [Mass/Vol] 132 mg/dL High [address] [place] [address] Comment on above: Performed By: #### 2 341-6 ####CALE Roth ([id number])[facility] ([facility])[address]206 [place] [address] Glucose [Mass/Vol] 166 mg/dL High [address] [place] [address] Comment on above: Performed By: #### 2 341-6 ####CALE Roth ([id number])[facility] ([facility])[address]19 [place] [address] Magnesiumon 03-16-2025 Magnesium [Mass/Vol] 1.95 mg/dL Normal 1.60-2.40 [facility] Comment on above: Performed By: #### 1 9123-9 ####CALE Roth ([id number])[facility] ([facility])[address]28 [place] [address] Manual differential performe d Ql (Bld)on 03-16-2025 Band form neutrophils (Bld) [#/Vol] 0.00 x10*3/uL Normal 0.00-0.70 [facility] Comment on above: Performed By: #### 5 0957-0 ####CALE Roth ([id number])[facility] ([facility])[address]666 [place] [address] Band form neutrophils/100 WBC (Bld) 0.0 % Normal 0.0-5.0 [facility] Comment on above: Performed By: #### 5 0957-0 ####CALE Roth ([id number])[facility] ([facility])[address] [place] [address] Basophils (Bld) [#/Vol] 0.08 x10*3/uL Normal 0.00-0.10 [facility] Comment on above: Performed By: #### 5 0957-0 ####CALE Roth ([id number])[facility] ([facility])[address] [place] [address] Basophils/100 WBC (Bld) 0.9 % Normal 0.0-2.0 [facility] Comment on above: Performed By: #### 5 0957-0 ####CALE Roth ([id number])[facility] ([facility])[address] [place] [address] Blasts Manual cnt (Bld) [#/Vol] 0.00 x10*3/uL Normal 0.00-0.00 [facility] Comment on above: Performed By: #### 5 0957-0 ####CALE Roth ([id number])[facility] ([facility])[address] [place] [address] Blasts/100 WBC (Bld) 0.0 % Normal 0.0-0.0 [facility] Comment on above: Performed By: #### 5 0957-0 ####CALE Roth ([id number])[facility] ([facility])[address] [place] [address] Cells Counted Total (Bld) [#] 115 Normal [facility] Comment on above: Performed By: #### 5 57-0 ####CALE Roth ([id number])[facility] ([facility])[address]141 [place] [address] Eosinophils (Bld) [#/Vol] 0.00 x10*3/uL Normal 0.00-0.70 [facility] Comment on above: Performed By: #### 5 57-0 ####CALE Roth ([id number])[facility] ([facility])[address] [place] [address] Eosinophils/100 WBC (Bld) 0.0 % Normal 0.0-6.0 [facility] Comment on above: Performed By: #### 5 57-0 ####CALE Roth ([id number])[facility] ([facility])[address] [place] [address] Lymphocytes (Bld) [#/Vol] 0.24 x10*3/uL Low 1.20-4.80 [facility] Comment on above: Performed By: #### 5 57-0 ####CALE Roth (64930)[facility] ([facility])[address] [place] [address] Lymphocytes/100 WBC (Bld) 2.6 % Normal 13.0-44.0 [facility] Comment on above: Performed By: #### 5 57-0 ####CALE Roth ([id number])[facility] ([facility])[address] [place] [address] Metamyelocytes (Bld) [#/Vol] 0.00 x10*3/uL Normal 0.00-0.00 [facility] Comment on above: Performed By: #### 5 57-0 ####CALE Roth ([id number])[facility] ([facility])[address] [place] [address] Metamyelocytes/100 WBC (Bld) 0.0 % Normal 0.0-0.0 [facility] Comment on above: Performed By: #### 5 57-0 ####CALE Roth (32710)[facility] ([facility])[address]30 [place] [address] Monocytes (Bld) [#/Vol] 0.00 x10*3/uL Low 0.10-1.00 [facility] Comment on above: Performed By: #### 5 57-0 ####CALE Roth ([id number])[facility] ([facility])[address] [place] [address] Monocytes/100 WBC (Bld) 0.0 % Normal 2.0-10.0 [facility] Comment on above: Performed By: #### 5 57-0 ####CALE Roth ([id number])[facility] ([facility])[address] [place] [address] Myelocytes (Bld) [#/Vol] 0.00 x10*3/uL Normal 0.00-0.00 [facility] Comment on above: Performed By: #### 5 57-0 ####CALE Roth ([id number])[facility] ([facility])[address] [place] [address] Myelocytes/100 WBC (Bld) 0.0 % Normal 0.0-0.0 [facility] Comment on above: Performed By: #### 5 57-0 ####CALE Roth ([id number])[facility] ([facility])[address] [place] [address] Neutrophils (Bld) [#/Vol] 8.97 x10*3/uL High 1.20-7.70 [facility] Comment on above: Performed By: #### 5 57-0 ####CALE Roth ([id number])[facility] ([facility])[address]342 [place] [address] Nucleated RBC/100 WBC (Bld) [Ratio] 0.0 % Normal 0.0-0.0 [facility] Comment on above: Performed By: #### 5 57-0 ####CALE Roth (58914)[facility] ([facility])[address] [place] [address] Plasma cells (Bld) [#/Vol] 0.00 x10*3/uL Normal 0.00-0.00 [facility] Comment on above: Performed By: #### 5 0957-0 ####CALE Roth ([id number])[facility] ([facility])[address]224 [place] [address] Plasma cells/100 WBC Manual cnt (Bld) 0.0 % Normal 0.00-0.00 [facility] Comment on above: Performed By: #### 5 0957-0 ####CALE Roth (67726)[facility] ([facility])[address] [place] [address] Promyelocytes (Bld) [#/Vol] 0.00 x10*3/uL Normal 0.00-0.00 [facility] Comment on above: Performed By: #### 5 57-0 ####CALE Roth ([id number])[facility] ([facility])[address]44 [place] [address] Promyelocytes/100 WBC (Bld) 0.0 % Normal 0.0-0.0 [facility] Comment on above: Performed By: #### 5 57-0 ####CALE Roth ([id number])[facility] ([facility])[address]357 [place] [address] RBC morphology finding Nom (Bld) No significant RBC morphology present Normal [facility] Comment on above: Performed By: #### 5 0957-0 ####CALE Roth (60707)[facility] ([facility])[address]954 [place] [address] Segmented neutrophils (Bld) [#/Vol] 8.97 x10*3/uL High 1.20-7.00 [facility] Comment on above: Performed By: #### 5 0957-0 ####CALE Roth (72168)[facility] ([facility])[address] [place] [address] Segmented neutrophils/100 WBC (Bld) 96.5 % Normal 40.0-80.0 [facility] Comment on above: Result Comment: Perc ent differential counts (%) should be interpreted in the context of the absolute cell counts (cells/uL). Performed By: #### 5 0957-0 ####CALE Roth (85555)[facility] ([facility])[address]332 [place] [address] Variant lymphocytes (Bld) [#/Vol] 0.00 x10*3/uL Normal 0.00-0.50 [facility] Comment on above: Performed By: #### 5 0957-0 ####CALE Roth (78697)[facility] ([facility])[address]263 [place] [address] Variant lymphocytes/100 WBC (Bld) 0.0 % Normal 0.0-2.0 [facility] Comment on above: Performed By: #### 5 0957-0 ####CALE Roth (59889)[facility] ([facility])[address]10 [place] [address] WBC other Manual cnt (Bld) [#/Vol] 0.00 x10*3/uL Normal [facility] Comment on above: Performed By: #### 5 0957-0 ####CALE Roth (71553)[facility] ([facility])[address]102 [place] [address] WBC other/100 WBC (Bld) 0.0 % Normal [facility] Comment on above: Performed By: #### 5 0957-0 ####CALE Roth ([id number])[facility] ([facility])[address]233 [place] [address] Prealbuminon 03-16-2025 Prealbumin [Mass/Vol] 20.0 mg/dL Normal 18.0-40.0 [facility] Comment on above: Performed By: #### 1 4338-8 ####CALE Roth (44182)[facility] ([facility])[address]27 [place] [address] Proteinon 03-16-2025 Protein (CSF) [Mass/Vol] 17 mg/dL Normal 15-45 [facility] Comment on above: Performed By: #### 2 880-3 ####CALE Roth (75040)[facility] ([facility])[address]24 [place] [address] Renal function 2000 panelon 03-16-2025 Albumin BCP dye [Mass/Vol] 3.2 g/dL Low 3.4-5.0 [facility] Comment on above: Performed By: #### 2 4362-6 ####CALE Roth (77881)[facility] ([facility])[address]1993 [place] [address] Anion gap [Moles/Vol] 8 mmol/L Low 10-20 [facility] Comment on above: Performed By: #### 2 4362-6 ####CALE Roth ([id number])[facility] ([facility])[address] [place] [address] Calcium [Mass/Vol] 8.1 mg/dL Low 8.6-10.6 [facility] Comment on above: Performed By: #### 2 4362-6 ####CALE Roth ([id number])[facility] ([facility])[address]893 [place] [address] Chloride [Moles/Vol] 113 mmol/L High 98-107 [facility] Comment on above: Performed By: #### 2 4362-6 ####CALE Roth (55525)[facility] ([facility])[address]063 [place] [address] CO2 [Moles/Vol] 25 mmol/L Normal 21-[address] [facility] Comment on above: Performed By: #### 2 4362-6 ####CALE Roth (72385)[facility] ([facility])[address]906 [place] [address] Creatinine [Mass/Vol] 0.42 mg/dL Low 0.50-1.05 [facility] Comment on above: Performed By: #### 2 4362-6 ####CALE Roth (10627)[facility] ([facility])[address]76 [place] [address] Glomerular filtration rate >90 Normal >60 [facility] Comment on above: Result Comment: Calc ulations of estimated GFR are performed using the 2020 CKD-EPI Study Refit equation without the race variable for the IDMS-Traceable creatinine methods.https://jasn.asnjournals.org/content/early/ASN .2693779909 Performed By: #### 2 4362-6 ####CALE Roth ([id number])[facility] ([facility])[address]957 [place] [address] Glucose [Mass/Vol] 138 mg/dL High 74-99 [facility] Comment on above: Performed By: #### 2 4362-6 ####CALE CAI L ([id number])[facility] ([facility])[address]009 [place] [address] Phosphate [Mass/Vol] 3.6 mg/dL Normal 2.5-4.9 [facility] Comment on above: Performed By: #### 2 4362-6 ####CALE CAI L ([id number])[facility] ([facility])[address]126 [place] [address] Potassium [Moles/Vol] 3.4 mmol/L Low 3.5-5.3 [facility] Comment on above: Performed By: #### 2 4362-6 ####CALE CAI L ([id number])[facility] ([facility])[address]750 [place] [address] Sodium [Moles/Vol] 143 mmol/L Normal 136-145 [facility] Comment on above: Performed By: #### 2 4362-6 ####CALE CAI L ([id number])[facility] ([facility])[address]651 [place] [address] Urea nitrogen [Mass/Vol] 9 mg/dL Normal - [facility] Comment on above: Performed By: #### 2 4362-6 ####CALE Roth (48811)[facility] ([facility])[address]65 [place] [address] VASC US TRANSCRANIAL DOPPLER (TCD) COMPLETEon 03-16-2025 VASC US TRANSCRANIAL DOPPLER (TCD) COMPLETE Normal [facility] XR ABDOMEN 1 VIEWon 03-16-20 XR ABDOMEN 1 VIEW Normal [facility] Comment on above: Order Comment: RN to release order via task on Brain when patient is ready for x-ray confirmation of NG tube placement. XR ABDOMEN 1 VIEW Normal [facility] XR CHEST 1 VIEWon 03-16-2025 XR CHEST [address] [facility] CBC W Auto Differential pane l (Bld)on 03-15-2025 Basophils (Bld) [#/Vol] 0.05 x10*3/uL Normal 0.00-0.10 [facility] Comment on above: Performed By: #### 5 7021-8 ####CALE Roth ([id number])[facility] ([facility])[address] [place] [address] Basophils/100 WBC (Bld) 0.5 % Normal 0.0-2.0 [facility] Comment on above: Performed By: #### 5 7021-8 ####CALE Roth ([id number])[facility] ([facility])[address] [place] [address] Eosinophils (Bld) [#/Vol] 0.23 x10*3/uL Normal 0.00-0.70 [facility] Comment on above: Performed By: #### 5 7021-8 ####CALE Roth ([id number])[facility] ([facility])[address] [place] [address] Eosinophils/100 WBC (Bld) 2.5 % Normal 0.0-6.0 [facility] Comment on above: Performed By: #### 5 7021-8 ####CALE Roth ([id number])[facility] ([facility])[address]692 [place] [address] Erythrocyte distribution width (RBC) [Ratio] 12.2 % Normal 11.5-14.5 [facility] Comment on above: Performed By: #### 5 7021-8 ####CALE Roth ([id number])[facility] ([facility])[address] [place] [address] Hematocrit (Bld) [Volume fraction] 29.6 % Low 36.0-46.0 [facility] Comment on above: Performed By: #### 5 7021-8 ####CALE Roth ([id number])[facility] ([facility])[address] [place] [address] Hemoglobin (Bld) [Mass/Vol] 10.1 g/dL Low 12.0-16.0 [facility] Comment on above: Performed By: #### 5 7021-8 ####CALE Roth (83711)[facility] ([facility])[address] [place] [address] Immature granulocytes (Bld) [#/Vol] 0.36 x10*3/uL Normal 0.00-0.70 [facility] Comment on above: Performed By: #### 5 7021-8 ####CALE Roth ([id number])[facility] ([facility])[address] [place] [address]72 Immature granulocytes/100 WBC (Bld) 3.9 % High 0.0-0.9 [facility] Comment on above: Result Comment: Aleisha ture Granulocyte Count (IG) includes promyelocytes, myelocytes and metamyelocytes but does not include bands. Percent differential counts (%) should be interpreted in the context of the absolute cell counts (cells/UL). Performed By: #### 5 7021-8 ####CALE Roth (02894)[facility] ([facility])[address]35 [place] [address] Lymphocytes (Bld) [#/Vol] 1.86 x10*3/uL Normal 1.20-4.80 [facility] Comment on above: Performed By: #### 5 7021-8 ####CALE Roth ([id number])[facility] ([facility])[address] [place] [address] Lymphocytes/100 WBC (Bld) 19.9 % Normal 13.0-44.0 [facility] Comment on above: Performed By: #### 5 7021-8 ####CALE Roth (01607)[facility] ([facility])[address] [place] [address] 30198 MCH (RBC) [Entitic mass] 30.1 pg Normal 26.0-34.0 [facility] Comment on above: Performed By: #### 5 7021-8 ####CALE Roth (20551)[facility] ([facility])[address] [place] [address] 24547 MCHC (RBC) [Mass/Vol] 34.1 g/dL Normal 32.0-36.0 [facility] Comment on above: Performed By: #### 5 7021-8 ####CALE Roth ([id number])[facility] ([facility])[address] [place] [address] 16765 MCV (RBC) [Entitic vol] 88 fL Normal 80-100 [facility] Comment on above: Performed By: #### 5 7021-8 ####CALE Roth ([id number])[facility] ([facility])[address] [place] [address]6961 Monocytes (Bld) [#/Vol] 0.58 x10*3/uL Normal 0.10-1.00 [facility] Comment on above: Performed By: #### 5 7021-8 ####CALE Roth (14874)[facility] ([facility])[address] [place] [address] 30092 Monocytes/100 WBC (Bld) 6.2 % Normal 2.0-10.0 [facility] Comment on above: Performed By: #### 5 7021-8 ####CALE Roth (07003)[facility] ([facility])[address]509 [place] [address] Neutrophils (Bld) [#/Vol] 6.26 x10*3/uL Normal 1.20-7.70 [facility] Comment on above: Result Comment: Perc ent differential counts (%) should be interpreted in the context of the absolute cell counts (cells/uL). Performed By: #### 5 7021-8 ####CALE Roth (00207)[facility] ([facility])[address]20 [place] [address] Neutrophils/100 WBC (Bld) 67.0 % Normal 40.0-80.0 [facility] Comment on above: Performed By: #### 5 7021-8 ####CALE Roth (18773)[facility] ([facility])[address]89 [place] [address] Nucleated RBC/100 WBC (Bld) [Ratio] 0.0 /100 WBCs Normal 0.0-0.0 [facility] Comment on above: Performed By: #### 5 7021-8 ####CALE Roth (82258)[facility] ([facility])[address]011 [place] [address] Platelets (Bld) [#/Vol] 237 x10*3/uL Normal 150-450 [facility] Comment on above: Performed By: #### 5 7021-8 ####CALE Roth ([id number])[facility] ([facility])[address]382 [place] [address] RBC (Bld) [#/Vol] 3.35 x10*6/uL Low 4.00-5.20 [facility] Comment on above: Performed By: #### 5 7021-8 ####CALE Roth (71979)[facility] ([facility])[address]88 [place] [address] WBC (Bld) [#/Vol] 9.3 x10*3/uL Normal 4.4-11.3 [facility] Comment on above: Performed By: #### 5 7021-8 ####CALE Roth ([id number])[facility] ([facility])[address]28 [place] [address] CT HEAD WO IV CONTRASTon CT HEAD WO IV CONTRAST Normal [facility] Calcium.ionizedon 03-15-2025 Calcium.ionized (Bld) [Moles/Vol] 1.21 mmol/L Normal 1.1-1.33 [facility] Comment on above: Result Comment: The performance characteristics of ionized calcium testedin heparinized plasma or serum have [facility].Testing on heparinized plasma or serum is not approved bythe FDA; however, such approval is not necessary. Performed By: #### 1 994-3 ####CALE Roth (69700)[facility] ([facility])[address]563 [place] [address] Carboxyhemoglobin (BldA) [Ma ss fraction]on 03-15-2025 Deoxyhemoglobin (BldA) [Mass fraction] 0.5 % Normal 0.0-5.0 [facility] Comment on above: Performed By: #### 2 030-5 ####CALE Roth (71709)[facility] ([facility])[address]329 [place] [address] Methemoglobin (BldA) [Mass fraction] 1.0 % Normal 0.0-1.5 [facility] Comment on above: Performed By: #### 2 030-5 ####CALE Roth (11563)[facility] ([facility])[address]127 [place] [address] Carboxyhemoglobin/Hemoglobin .totalon 03-15-2025 Carboxyhemoglobin (BldA) [Mass fraction] 0.5 % Normal [facility] Comment on above: Result Comment: Ref ValuesNon-Smokers 0.5-1.5%Smokers 0.5-10.0% Performed By: #### 2 030-5 ####CALE Roth (51506)[facility] ([facility])[address] [place] [address] 27735 Gason 03-15-2025 Hemoglobin (Bld) [Mass/Vol] 11.2 g/dL Low 12.0-16.0 [facility] Comment on above: Performed By: #### 9 3685-6 ####CALE Roth ([id number])[facility] ([facility])[address] [place] [address] Performed By: #### 2 030-5 ####CALE Roth (25239)[facility] ([facility])[address] [place] [address] 93879 Oxyhemoglobin (BldA) [Mass fraction] 98.0 % Normal 94.0-98.0 [facility] Comment on above: Performed By: #### 9 3685-6 ####CALE Roth (78327)[facility] ([facility])[address] [place] [address]871 Performed By: #### 2 030-5 ####CALE Roth ([id number])[facility] ([facility])[address] [place] [address]80 Gas and Carbon monoxide and Electrolytes panel (BldA)on 03-15-2025 Anion gap 4 (BldA) [Moles/Vol] 7 mmo/L Low 10-25 [facility] Comment on above: Performed By: #### 9 3685-6 ####CALE Roth (28194)[facility] ([facility])[address] [place] [address]1255 Base excess Calc (Bld) [Moles/Vol] -1.9000 mmol/L Normal -2.0-3.0 [facility] Comment on above: Performed By: #### 9 3685-6 ####CALE Roth ([id number])[facility] ([facility])[address] [place] [address]057 Calcium.ionized (BldA) [Moles/Vol] 1.16 mmol/L Normal 1.10-1.33 [facility] Comment on above: Performed By: #### 9 3685-6 ####CALE Roth (57383)[facility] ([facility])[address]76 [place] [address] Chloride (BldA) [Moles/Vol] 119 mmol/L High 98-107 [facility] Comment on above: Performed By: #### 9 3685-6 ####CALE Roth (64074)[facility] ([facility])[address] [place] [address] 27244 CO2 (Bld) [Partial pressure] 30 mm Hg Low 38-42 [facility] Comment on above: Performed By: #### 9 6395-6 ####CALE Roth ([id number])[facility] ([facility])[address] [place] [address] 63826 Glucose [Mass/Vol] 149 mg/dL High 74-99 [facility] Comment on above: Performed By: #### 9 4675-6 ####CALE Roth ([id number])[facility] ([facility])[address] [place] [address] 87635 HCO3 (Bld) [Moles/Vol] 21.3 mmol/L Low 22.0-26.0 [facility] Comment on above: Performed By: #### 9 3685-6 ####CALE Roth (53694)[facility] ([facility])[address]43 [place] [address] Hematocrit Est (Bld) [Volume fraction] 30.0 % Low 36.0-46.0 [facility] Comment on above: Performed By: #### 9 3685-6 ####CALE Roth ([id number])[facility] ([facility])[address] [place] [address]51 Hemoglobin (Bld) [Mass/Vol] 10.0 g/dL Low 12.0-16.0 [facility] Comment on above: Performed By: #### 9 2035-6 ####CALE Roth (53534)[facility] ([facility])[address]85 [place] [address] Inhaled oxygen concentration 53 % Normal [facility] Comment on above: Performed By: #### 9 3685-6 ####CALE Roth ([id number])[facility] ([facility])[address]04 [place] [address] Lactate (BldA) [Moles/Vol] 1.0 mmol/L Normal 0.4-2.0 [facility] Comment on above: Performed By: #### 9 3685-6 ####CALE Roth (25179)[facility] ([facility])[address]32 [place] [address] Oxygen (Bld) [Partial pressure] 262 mm Hg High 85-95 [facility] Comment on above: Performed By: #### 9 3685-6 ####CALE Roth ([id number])[facility] ([facility])[address] [place] [address]281 Oxyhemoglobin (BldA) [Mass fraction] 97.5 % Normal 94.0-98.0 [facility] Comment on above: Performed By: #### 9 3685-6 ####CALE Roth ([id number])[facility] ([facility])[address]84 [place] [address] pH (Bld) 7.46 [pH] High 7.38-7.42 [facility] Comment on above: Performed By: #### 9 3685-6 ####CALE Roth ([id number])[facility] ([facility])[address]656 [place] [address] Potassium (BldA) [Moles/Vol] 3.5 mmol/L Normal 3.5-5.3 [facility] Comment on above: Performed By: #### 9 3685-6 ####CALE Roth ([id number])[facility] ([facility])[address]62 [place] [address] Sodium (BldA) [Moles/Vol] 144 mmol/L Normal 136-145 [facility] Comment on above: Performed By: #### 9 3685-6 ####CALE Roth ([id number])[facility] ([facility])[address] [place] [address] Anion gap 4 (BldA) [Moles/Vol] 11 mmo/L Normal 10-25 [facility] Comment on above: Performed By: #### 9 3685-6 ####CALE Roth ([id number])[facility] ([facility])[address] [place] [address] 48145 Base excess Calc (Bld) [Moles/Vol] -2.3000 mmol/L Low -2.0-3.0 [facility] Comment on above: Performed By: #### 9 3685-6 ####CALE Roth ([id number])[facility] ([facility])[id number] [place] [address] 76638 Calcium.ionized (BldA) [Moles/Vol] 1.16 mmol/L Normal 1.10-1.33 [facility] Comment on above: Performed By: #### 9 3685-6 ####CALE Roth ([id number])[facility] ([facility])[id number] [place] [address] 61343 Chloride (BldA) [Moles/Vol] 113 mmol/L High 98-107 [facility] Comment on above: Performed By: #### 9 3685-6 ####CALE Roth ([id number])[facility] ([facility])[id number] [place] [address] 81191 CO2 (Bld) [Partial pressure] 29 mm Hg Low 38-42 [facility] Comment on above: Performed By: #### 9 3685-6 ####CALE Roth ([id number])[facility] ([facility])[id number] [place] [address] 61264 Glucose [Mass/Vol] 211 mg/dL High 74-99 [facility] Comment on above: Performed By: #### 9 3685-6 ####CALE Roth ([id number])[facility] ([facility])[address] [place] [address] HCO3 (Bld) [Moles/Vol] 20.6 mmol/L Low 22.0-26.0 [facility] Comment on above: Performed By: #### 9 3685-6 ####CALE Roth ([id number])[facility] ([facility])[address] [place] [address] Hematocrit Est (Bld) [Volume fraction] 34.0 % Low 36.0-46.0 [facility] Comment on above: Performed By: #### 9 3685-6 ####CALE Roth ([id number])[facility] ([facility])[address] [place] [address] Inhaled oxygen concentration 46 % Normal [facility] Comment on above: Performed By: #### 9 3685-6 ####CALE Roth ([id number])[facility] ([facility])[address] [place] [address] Lactate (BldA) [Moles/Vol] 0.7 mmol/L Normal 0.4-2.0 [facility] Comment on above: Performed By: #### 9 3685-6 ####CALE Roth ([id number])[facility] ([facility])[address] [place] [address] Oxygen (Bld) [Partial pressure] 249 mm Hg High 85-95 [facility] Comment on above: Performed By: #### 9 3685-6 ####CALE Roth ([id number])[facility] ([facility])[address] [place] [address] pH (Bld) 7.46 [pH] High 7.38-7.42 [facility] Comment on above: Performed By: #### 9 3685-6 ####CALE Roth ([id number])[facility] ([facility])[address] [place] [address] Potassium (BldA) [Moles/Vol] 3.7 mmol/L Normal 3.5-5.3 [facility] Comment on above: Performed By: #### 9 3685-6 ####CALE Roth ([id number])[facility] ([facility])[address] [place] [address] 84695 Sodium (BldA) [Moles/Vol] 141 mmol/L Normal 136-145 [facility] Comment on above: Performed By: #### 9 3685-6 ####CALE Roth ([id number])[facility] ([facility])[address] [place] [address] 72335 Anion gap 4 (BldA) [Moles/Vol] 14 mmo/L Normal 10-25 [facility] Comment on above: Performed By: #### 9 3685-6 ####CALE Roth ([id number])[facility] ([facility])[address] [place] [address] 27629 Base excess Calc (Bld) [Moles/Vol] -2.5000 mmol/L Low -2.0-3.0 [facility] Comment on above: Performed By: #### 9 3685-6 ####CALE Roth ([id number])[facility] ([facility])[address] [place] [address] 27374 Calcium.ionized (BldA) [Moles/Vol] 1.19 mmol/L Normal 1.10-1.33 [facility] Comment on above: Performed By: #### 9 3685-6 ####CALE Roth ([id number])[facility] ([facility])[address] [place] [address] 49702 Chloride (BldA) [Moles/Vol] 111 mmol/L High 98-107 [facility] Comment on above: Performed By: #### 9 3685-6 ####CALE Roth ([id number])[facility] ([facility])[address] [place] [address] 77366 CO2 (Bld) [Partial pressure] 31 mm Hg Low 38-42 [facility] Comment on above: Performed By: #### 9 3685-6 ####CALE Roth ([id number])[facility] ([facility])[address] [place] [address] Glucose [Mass/Vol] 214 mg/dL High 74-99 [facility] Comment on above: Performed By: #### 9 3685-6 ####CALE Roth ([id number])[facility] ([facility])[address] [place] [address] HCO3 (Bld) [Moles/Vol] 21.1 mmol/L Low 22.0-26.0 [facility] Comment on above: Performed By: #### 9 3685-6 ####CALE Roth ([id number])[facility] ([facility])[address] [place] [address] Hematocrit Est (Bld) [Volume fraction] 28.0 % Low 36.0-46.0 [facility] Comment on above: Performed By: #### 9 3685-6 ####CALE Roth ([id number])[facility] ([facility])[address]74 [place] [address] Hemoglobin (Bld) [Mass/Vol] 9.3 g/dL Low 12.0-16.0 [facility] Comment on above: Performed By: #### 9 3685-6 ####CALE Roth ([id number])[facility] ([facility])[address] [place] [address] Inhaled oxygen concentration 48 % Normal [facility] Comment on above: Performed By: #### 9 3685-6 ####CALE Roth ([id number])[facility] ([facility])[address] [place] [address] Lactate (BldA) [Moles/Vol] 1.1 mmol/L Normal 0.4-2.0 [facility] Comment on above: Performed By: #### 9 3685-6 ####CALE Roth ([id number])[facility] ([facility])[address] [place] [address] Oxygen (Bld) [Partial pressure] 192 mm Hg High 85-95 [facility] Comment on above: Performed By: #### 9 3685-6 ####CALE Roth (45029)[facility] ([facility])[address] [place] [address] 96877 Oxyhemoglobin (BldA) [Mass fraction] 98.4 % High 94.0-98.0 [facility] Comment on above: Performed By: #### 9 3685-6 ####CALE Roth ([id number])[facility] ([facility])[address] [place] [address] 72723 pH (Bld) 7.44 [pH] High 7.38-7.42 [facility] Comment on above: Performed By: #### 9 3685-6 ####CALE Roth (39906)[facility] ([facility])[address] [place] [address] 95041 Potassium (BldA) [Moles/Vol] 3.8 mmol/L Normal 3.5-5.3 [facility] Comment on above: Performed By: #### 9 3685-6 ####CALE Roth (40426)[facility] ([facility])[address] [place] [address] 51992 Sodium (BldA) [Moles/Vol] 142 mmol/L Normal 136-145 [facility] Comment on above: Performed By: #### 9 3685-6 ####CALE Roth (68471)[facility] ([facility])[address] [place] [address] 85527 Anion gap 4 (BldA) [Moles/Vol] 10 mmo/L Normal 10-25 [facility] Comment on above: Performed By: #### 9 3685-6 ####CALE Roth ([id number])[facility] ([facility])[address] [place] [address] 35279 Base excess Calc (Bld) [Moles/Vol] 1.3 mmol/L Normal -2.0-3.0 [facility] Comment on above: Performed By: #### 9 3685-6 ####CALE Roth (36099)[facility] ([facility])[address]50 [place] [address] Calcium.ionized (BldA) [Moles/Vol] 1.23 mmol/L Normal 1.10-1.33 [facility] Comment on above: Performed By: #### 9 3685-6 ####CALE Roth (67874)[facility] ([facility])[address]671 [place] [address] Chloride (BldA) [Moles/Vol] 111 mmol/L High 98-107 [facility] Comment on above: Performed By: #### 9 3685-6 ####CALE Roth ([id number])[facility] ([facility])[address]458 [place] [address] CO2 (Bld) [Partial pressure] 34 mm Hg Low 38-42 [facility] Comment on above: Performed By: #### 9 3685-6 ####CALE Roth (60655)[facility] ([facility])[address]16 [place] [address] Glucose [Mass/Vol] 141 mg/dL High 74-99 [facility] Comment on above: Performed By: #### 9 3685-6 ####CALE Roth ([id number])[facility] ([facility])[address]42 [place] [address] HCO3 (Bld) [Moles/Vol] 24.7 mmol/L Normal 22.0-26.0 [facility] Comment on above: Performed By: #### 9 3685-6 ####CALE Roth (64534)[facility] ([facility])[address]25 [place] [address] Hematocrit Est (Bld) [Volume fraction] 31.0 % Low 36.0-46.0 [facility] Comment on above: Performed By: #### 9 3685-6 ####CALE Roth (53691)[facility] ([facility])[address]340 [place] [address] Hemoglobin (Bld) [Mass/Vol] 10.2 g/dL Low 12.0-16.0 [facility] Comment on above: Performed By: #### 9 3685-6 ####CALE Roth (76179)[facility] ([facility])[address]75 [place] [address] Inhaled oxygen concentration 97 % Normal [facility] Comment on above: Performed By: #### 9 3685-6 ####CALE Roth (62789)[facility] ([facility])[address]059 [place] [address] Lactate (BldA) [Moles/Vol] 0.6 mmol/L Normal 0.4-2.0 [facility] Comment on above: Performed By: #### 9 3685-6 ####CALE Roth (33225)[facility] ([facility])[address] [place] [address] 58388 Oxygen (Bld) [Partial pressure] 477 mm Hg High 85-95 [facility] Comment on above: Performed By: #### 9 2695-6 ####CALE Roth (64412)[facility] ([facility])[address]194 [place] [address] Oxyhemoglobin (BldA) [Mass fraction] 98.5 % High 94.0-98.0 [facility] Comment on above: Performed By: #### 9 3685-6 ####CALE Roth (18993)[facility] ([facility])[address]40 [place] [address] pH (Bld) 7.47 [pH] High 7.38-7.42 [facility] Comment on above: Performed By: #### 9 7715-6 ####CALE Roth (45480)[facility] ([facility])[address]382 [place] [address] Potassium (BldA) [Moles/Vol] 3.5 mmol/L Normal 3.5-5.3 [facility] Comment on above: Performed By: #### 9 3685-6 ####CALE Roth (11386)[facility] ([facility])[address] [place] [address] 23847 Sodium (BldA) [Moles/Vol] 142 mmol/L Normal 136-145 [facility] Comment on above: Performed By: #### 9 3685-6 ####CALE Roth (47916)[facility] ([facility])[address] [place] [address] 96290 Anion gap 4 (BldA) [Moles/Vol] 13 mmo/L Normal 10-25 [facility] Comment on above: Performed By: #### 9 3685-6 ####CALE Roth (12120)[facility] ([facility])[address] [place] [address] 82787 Base excess Calc (Bld) [Moles/Vol] 0.8 mmol/L Normal -2.0-3.0 [facility] Comment on above: Performed By: #### 9 3685-6 ####CALE Roth (92101)[facility] ([facility])[address] [place] [address] 89603 Calcium.ionized (BldA) [Moles/Vol] 1.24 mmol/L Normal 1.10-1.33 [facility] Comment on above: Performed By: #### 9 3685-6 ####CALE Roth (36226)[facility] ([facility])[address] [place] [address] 54207 Chloride (BldA) [Moles/Vol] 107 mmol/L Normal 98-107 [facility] Comment on above: Performed By: #### 9 3685-6 ####CALE Roth ([id number])[facility] ([facility])[address] [place] [address] 89016 CO2 (Bld) [Partial pressure] 36 mm Hg Low 38-42 [facility] Comment on above: Performed By: #### 9 3685-6 ####CALE Roth ([id number])[facility] ([facility])[address]310 [place] [address] Glucose [Mass/Vol] 125 mg/dL High 74-99 [facility] Comment on above: Performed By: #### 9 3685-6 ####CALE Roth (76365)[facility] ([facility])[address]572 [place] [address] HCO3 (Bld) [Moles/Vol] 25.0 mmol/L Normal 22.0-26.0 [facility] Comment on above: Performed By: #### 9 6375-6 ####CALE Roth (70602)[facility] ([facility])[address] [place] [address] 33979 Hematocrit Est (Bld) [Volume fraction] 12.0 % Low 36.0-46.0 [facility] Comment on above: Performed By: #### 9 4305-6 ####CALE Roth (08951)[facility] ([facility])[address] [place] [address] 18395 Hemoglobin (Bld) [Mass/Vol] 3.9 g/dL Critically low 12.0-16.0 [facility] Comment on above: Performed By: #### 9 5025-6 ####CALE Roth ([id number])[facility] ([facility])[address]266 [place] [address] Inhaled oxygen concentration 97 % Normal [facility] Comment on above: Performed By: #### 9 9915-6 ####CALE Roth (09736)[facility] ([facility])[address]247 [place] [address] Lactate (BldA) [Moles/Vol] 0.8 mmol/L Normal 0.4-2.0 [facility] Comment on above: Performed By: #### 9 1805-6 ####CALE Roth (48444)[facility] ([facility])[address]32 [place] [address] Oxygen (Bld) [Partial pressure] 437 mm Hg High 85-95 [facility] Comment on above: Performed By: #### 9 3685-6 ####CALE Roth (66398)[facility] ([facility])[address] [place] [address] 43048 Oxyhemoglobin (BldA) [Mass fraction] 96.9 % Normal 94.0-98.0 [facility] Comment on above: Performed By: #### 9 3685-6 ####CALE Roth (42100)[facility] ([facility])[address] [place] [address] 22271 pH (Bld) 7.45 [pH] High 7.38-7.42 [facility] Comment on above: Performed By: #### 9 3685-6 ####CALE Roth (67422)[facility] ([facility])[address] [place] [address] 28774 Potassium (BldA) [Moles/Vol] 3.7 mmol/L Normal 3.5-5.3 [facility] Comment on above: Performed By: #### 9 3685-6 ####CALE Roth (27131)[facility] ([facility])[address] [place] [address] 16821 Sodium (BldA) [Moles/Vol] 141 mmol/L Normal 136-145 [facility] Comment on above: Performed By: #### 9 3685-6 ####CALE Roth (09052)[facility] ([facility])[address] [place] [address] 82480 Glucose Test strip manual (B ld) [Mass/Vol]on 03-15-2025 Glucose [Mass/Vol] 130 mg/dL High 74-99 [facility] Comment on above: Performed By: #### 2 341-6 ####CALE Roth (08690)[facility] ([facility])[address] [place] [address] 15623 Glucose [Mass/Vol] 114 mg/dL High 74-99 [facility] Comment on above: Performed By: #### 2 341-6 ####CALE Roth (13884)[facility] ([facility])[address]012 [place] [address] Glucose [Mass/Vol] 130 mg/dL High 74-99 [facility] Comment on above: Performed By: #### 2 341-6 ####CALE Roth ([id number])[facility] ([facility])[address]18 [place] [address] IR ANGIOGRAM CEREBRAL BILATE RALon 03-15-2025 IR ANGIOGRAM CEREBRAL BILATERAL Normal [facility] Magnesiumon 03-15-2025 Magnesium [Mass/Vol] 2.06 mg/dL Normal 1.60-2.40 [facility] Comment on above: Performed By: #### 1 9123-9 ####CALE Roth (13328)[facility] ([facility])[address]458 [place] [address] Renal function 2000 panelon 03-15-2025 Albumin BCP dye [Mass/Vol] 3.7 g/dL Normal 3.4-5.0 [facility] Comment on above: Performed By: #### 2 4362-6 ####CALE Roth (12552)[facility] ([facility])[address]177 [place] [address] Anion gap [Moles/Vol] 11 mmol/L Normal 10-20 [facility] Comment on above: Performed By: #### 2 4362-6 ####CALE Roth (86494)[facility] ([facility])[address]63 [place] [address] Calcium [Mass/Vol] 8.6 mg/dL Normal 8.6-10.6 [facility] Comment on above: Performed By: #### 2 4362-6 ####CALE Roth (31088)[facility] ([facility])64132 [place] [address] Chloride [Moles/Vol] 107 mmol/L Normal 98-107 [facility] Comment on above: Performed By: #### 2 4362-6 ####CALE Roth (48200)[facility] ([facility])[address] [place] [address] CO2 [Moles/Vol] 28 mmol/L Normal 21-[address] [facility] Comment on above: Performed By: #### 2 4362-6 ####CALE Roth (71089)[facility] ([facility])[address] [place] [address] Creatinine [Mass/Vol] 0.45 mg/dL Low 0.50-1.05 [facility] Comment on above: Performed By: #### 2 4362-6 ####CALE Roth (45283)[facility] ([facility])[address]324 [place] [address] Glomerular filtration rate >90 Normal >60 [facility] Comment on above: Result Comment: Calc ulations of estimated GFR are performed using the 2020 CKD-EPI Study Refit equation without the race variable for the IDMS-Traceable creatinine methods.https://jasn.asnjournals.org/content/early/ASN .4158751371 Performed By: #### 2 4362-6 ####CALE Roth (44565)[facility] ([facility])[address]83 [place] [address] Glucose [Mass/Vol] 123 mg/dL High 74-99 [facility] Comment on above: Performed By: #### 2 4362-6 ####CALE Roth ([id number])[facility] ([facility])[address] [place] [address] Phosphate [Mass/Vol] 3.0 mg/dL Normal 2.5-4.9 [facility] Comment on above: Performed By: #### 2 4362-6 ####CALE Roth (67205)[facility] ([facility])[address] [place] [address] Potassium [Moles/Vol] 3.6 mmol/L Normal 3.5-5.3 [facility] Comment on above: Performed By: #### 2 4362-6 ####CALE Roth (51271)[facility] ([facility])[address]492 [place] [address] Sodium [Moles/Vol] 142 mmol/L Normal 136-145 [facility] Comment on above: Performed By: #### 2 4362-6 ####CALE Roth (09434)[facility] ([facility])[address]53 [place] [address] Urea nitrogen [Mass/Vol] 14 mg/dL Normal 6-23 [facility] Comment on above: Performed By: #### 2 4362-6 ####CALE Roth ([id number])[facility] ([facility])[address]87 [place] [address] Sodiumon 03-15-2025 Sodium [Moles/Vol] 143 mmol/L Normal 136-145 [facility] Comment on above: Performed By: #### 2 951-2 ####CALE Roth ([id number])[facility] ([facility])[address]375 [place] [address] Surgical pathology studyon 0 03-15-2025 Surgical pathology study [facility] Comment on above: Order Comment: 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] Blood type and Indirect anti body screen panel (Bld)on 03-14-2025 ABO group Nom (Bld) B Normal [facility] Comment on above: Performed By: #### 3 4532-2 ####CALE Roth ([id number])[facility] ([facility])[address] [place] [address] Blood group antibody screen Ql Negative [facility] Comment on above: Performed By: #### 3 4532-2 ####CALE Roth ([id number])[facility] ([facility])[address]33 [place] [address] D Ag Ql (Bld) Positive Normal [facility] Comment on above: Performed By: #### 3 4532-2 ####CALE Roth ([id number])[facility] ([facility])[address] [place] [address]30 CBC panel Auto (Bld)on 03-14 Erythrocyte distribution width (RBC) [Ratio] 11.7 % Normal 11.5-14.5 [facility] Comment on above: Performed By: #### 5 8410-2 ####CALE Roth ([id number])[facility] ([facility])[address]78 [place] [address] Hematocrit (Bld) [Volume fraction] 31.2 % Low 36.0-46.0 [facility] Comment on above: Performed By: #### 5 8410-2 ####CALE Roth (40735)[facility] ([facility])[address]74 [place] [address] Hemoglobin (Bld) [Mass/Vol] 11.0 g/dL Low 12.0-16.0 [facility] Comment on above: Performed By: #### 5 8410-2 ####CALE Roth ([id number])[facility] ([facility])[address]43 [place] [address] MCH (RBC) [Entitic mass] 29.6 pg Normal 26.0-34.0 [facility] Comment on above: Performed By: #### 5 8410-2 ####CALE Roth (77163)[facility] ([facility])[address]807 [place] [address] MCHC (RBC) [Mass/Vol] 35.3 g/dL Normal 32.0-36.0 [facility] Comment on above: Performed By: #### 5 8410-2 ####CALE Roth (20905)[facility] ([facility])[address]74 [place] [address] MCV (RBC) [Entitic vol] 84 fL Normal 80-100 [facility] Comment on above: Performed By: #### 5 8410-2 ####CALE Roth (91839)[facility] ([facility])[address]116 [place] [address] Nucleated RBC/100 WBC (Bld) [Ratio] 0.0 /100 WBCs Normal 0.0-0.0 [facility] Comment on above: Performed By: #### 5 8410-2 ####CALE Roth (61938)[facility] ([facility])[address]456 [place] [address] Platelets (Bld) [#/Vol] 262 x10*3/uL Normal 150-450 [facility] Comment on above: Performed By: #### 5 8410-2 ####CALE Roth (28614)[facility] ([facility])[address]71 [place] [address] RBC (Bld) [#/Vol] 3.71 x10*6/uL Low 4.00-5.20 [facility] Comment on above: Performed By: #### 5 8410-2 ####CALE Roth ([id number])[facility] ([facility])[address]096 [place] [address] WBC (Bld) [#/Vol] 11.3 x10*3/uL Normal 4.4-11.3 [facility] Comment on above: Performed By: #### 5 8410-2 ####CALE Roth ([id number])[facility] ([facility])[address]225 [place] [address] CT ANGIO HEAD AND NECK W AND WO IV CONTRASTon 03-14-2025 CT ANGIO HEAD AND NECK W AND WO IV CONTRAST Normal [facility] CT HEAD WO IV CONTRASTon CT HEAD WO IV CONTRAST Normal [facility] Calcium.ionizedon 03-14-2025 Calcium.ionized (Bld) [Moles/Vol] 1.19 mmol/L Normal 1.1-1.33 [facility] Comment on above: Result Comment: The performance characteristics of ionized calcium testedin heparinized plasma or serum have been validated by theindividual [facility] laboratory site where testing is performed.Testing on heparinized plasma or serum is not approved bythe FDA; however, such approval is not necessary. Performed By: #### 1 994-3 ####CALE Roth (62930)[facility] ([facility])[address]209 [place] [address] Choriogonadotropin.beta subu niton 03-14-2025 HCG.beta subunit Qn m[IU]/mL Normal <5 [facility] Comment on above: Order Comment: Total HCG measurement is performed using the Siemens Atell[employer] immunoassay which detects intact HCG and free beta HCG subunit. This test is not indicated for use as a tumor marker. HCG testing is performed using a different test methodology at [facility] than other [facility]. Direct result comparison should only be made within the same method. Performed By: #### 2 1198-7 ####CALE Roth (59270)[facility] ([facility])[address]351 [place] [address] Glucose Test strip manual (B ld) [Mass/Vol]on 03-14-2025 Glucose [Mass/Vol] 133 mg/dL High [address] [place] [address] Comment on above: Performed By: #### 2 341-6 ####CALE Roth ([id number])[facility] ([facility])[address]75 [place] [address] Glucose [Mass/Vol] 100 mg/dL High [address] [place] [address] Comment on above: Performed By: #### 2 341-6 ####CALE Roth ([id number])[facility] ([facility])[address]72 [place] [address] Glucose [Mass/Vol] 135 mg/dL High [address] [place] [address] Comment on above: Performed By: #### 2 341-6 ####CALE Roth ([id number])[facility] ([facility])[address]14 [place] [address] Glucose [Mass/Vol] 133 mg/dL High [address] [place] [address] Comment on above: Performed By: #### 2 341-6 ####CALE Roth ([id number])[facility] ([facility])[address] [place] [address]0414 Glucose [Mass/Vol] 154 mg/dL High 74-99 [facility] Comment on above: Performed By: #### 2 341-6 ####CALE Roth ([id number])[facility] ([facility])[address] [place] [address] 71818 MR BRAIN W AND WO IV CONTRAS Ton 03-14-2025 MR BRAIN W AND WO IV CONTRAST Normal [facility] Comment on above: Order Comment: Only need diffusion, FLAIR, T1 pre and T1 post dale Magnesiumon 03-14-2025 Magnesium [Mass/Vol] 2.24 mg/dL Normal 1.60-2.40 [facility] Comment on above: Performed By: #### 1 9123-9 ####CALE Roth ([id number])[facility] ([facility])[address] [place] [id number] PT and aPTT panel Coag (PPP) on 03-14-2025 aPTT Coag (PPP) [Time] 23 s Low 26-36 [facility] Comment on above: Order Comment: The A PTT is no longer used for monitoring Unfractionated Heparin Therapy. For monitoring Heparin Therapy, use the Heparin Assay. Performed By: #### 3 4529-8 ####CALE Roth ([id number])[facility] ([facility])[id number] [place] [address]5510 INR Coag (PPP) [Relative time] 1.2 High 0.9-1.1 [facility] Comment on above: Order Comment: The A PTT is no longer used for monitoring Unfractionated Heparin Therapy. For monitoring Heparin Therapy, use the Heparin Assay. Performed By: #### 3 4529-8 ####CALE Roth ([id number])[facility] ([facility])[address] [place] [address] PT Coag (PPP) [Time] 13.1 s High 9.8-12.4 [facility] Comment on above: Order Comment: The A PTT is no longer used for monitoring Unfractionated Heparin Therapy. For monitoring Heparin Therapy, use the Heparin Assay. Performed By: #### 3 4529-8 ####CALE Roth ([id number])[facility] ([facility])[address] [place] [address] Renal function 2000 panelon 03-14-2025 Albumin BCP dye [Mass/Vol] 4.0 g/dL Normal 3.4-5.0 [facility] Comment on above: Performed By: #### 2 4362-6 ####CALE Roth ([id number])[facility] ([facility])[id number] [place] [address]6784 Anion gap [Moles/Vol] 12 mmol/L Normal 10-20 [facility] Comment on above: Performed By: #### 2 4362-6 ####CALE Roth ([id number])[facility] ([facility])[id number] [place] [address] [address] Calcium [Mass/Vol] 8.9 mg/dL Normal 8.6-10.6 [facility] Comment on above: Performed By: #### 2 4362-6 ####CALE Roth ([id number])[facility] ([facility])[address] [place] [address] Chloride [Moles/Vol] 104 mmol/L Normal 98-107 [facility] Comment on above: Performed By: #### 2 4362-6 ####CALE CAI L ([id number])[facility] ([facility])[address] [place] [address] CO2 [Moles/Vol] 28 mmol/L Normal 21-[address] [facility] Comment on above: Performed By: #### 2 4362-6 ####CALE Roth ([id number])[facility] ([facility])[address] [place] [address] Creatinine [Mass/Vol] 0.49 mg/dL Low 0.50-1.05 [facility] Comment on above: Performed By: #### 2 4362-6 ####CALE Roth ([id number])[facility] ([facility])[address] [place] [address] Glomerular filtration rate >90 Normal >60 [facility] Comment on above: Result Comment: Calc ulations of estimated GFR are performed using the 2020 CKD-EPI Study Refit equation without the race variable for the IDMS-Traceable creatinine methods.https://jasn.asnjournals.org/content/early/ASN .0829757212 Performed By: #### 2 4362-6 ####CALE Roth ([id number])[facility] ([facility])[address] [place] [address] Glucose [Mass/Vol] 168 mg/dL High 74-99 [facility] Comment on above: Performed By: #### 2 4362-6 ####CALE Roth ([id number])[facility] ([facility])[address] [place] [address] Phosphate [Mass/Vol] 2.8 mg/dL Normal 2.5-4.9 [facility] Comment on above: Performed By: #### 2 4362-6 ####CALE CAI L ([id number])[facility] ([facility])[address] [place] [address] Potassium [Moles/Vol] 3.6 mmol/L Normal 3.5-5.3 [facility] Comment on above: Performed By: #### 2 4362-6 ####CALE CAI L ([id number])[facility] ([facility])[address]151 [place] [address] Sodium [Moles/Vol] 140 mmol/L Normal 136-145 [facility] Comment on above: Performed By: #### 2 4362-6 ####CALE CAI L ([id number])[facility] ([facility])[address]26 [place] [address] Urea nitrogen [Mass/Vol] 19 mg/dL Normal 6-23 [facility] Comment on above: Performed By: #### 2 4362-6 ####CALE Roth ([id number])[facility] ([facility])[address] [place] [address] Sodiumon 03-14-2025 Sodium [Moles/Vol] 141 mmol/L Normal 136-145 [facility] Comment on above: Performed By: #### 2 951-2 ####CALE Roth ([id number])[facility] ([facility])[address]360 [place] [address] Sodium [Moles/Vol] 142 mmol/L Normal 136-145 [facility] Comment on above: Performed By: #### 2 951-2 ####CALE Roth ([id number])[facility] ([facility])[address] [place] [address] Sodium [Moles/Vol] 146 mmol/L High 136-145 [facility] Comment on above: Performed By: #### 2 951-2 ####CALE Roth ([id number])[facility] ([facility])[address] [place] [address] Sodium [Moles/Vol] 139 mmol/L Normal 136-145 [facility] Comment on above: Performed By: #### 2 951-2 ####CALE Roth ([id number])[facility] ([facility])[address] [place] [address] Urinalysis complete W Reflex Culture panel (U)on 03-14-2025 Appearance (U) Clear Normal Clear [facility] Comment on above: Performed By: #### 5 8077-9 ####CALE Roth ([id number])[facility] ([facility])[address] [place] [address] Bilirubin (U) [Mass/Vol] Negative Normal NEGATIVE [facility] Comment on above: Performed By: #### 5 8077-9 ####CALE CAI L ([id number])[facility] ([facility])[address]273 [place] [address] Color (U) Light-Yellow Normal Light-Yello w, Yellow, Dark-Yellow [facility] Comment on above: Performed By: #### 5 8077-9 ####CALE CAI L ([id number])[facility] ([facility])[address]321 [place] [address] Glucose Auto test strip (U) [Mass/Vol] Normal Normal Normal [facility] Comment on above: Performed By: #### 5 8077-9 ####CALE RUTLEDGEER L ([id number])[facility] ([facility])[address]759 [place] [address] Ketones (U) [Mass/Vol] Negative Normal NEGATIVE [facility] Comment on above: Performed By: #### 5 8077-9 ####CALE CAI L ([id number])[facility] ([facility])[address]508 [place] [address] Leukocyte esterase Auto test strip Ql (U) Negative Normal NEGATIVE [facility] Comment on above: Performed By: #### 5 8077-9 ####CALE TOSCANOMOISAURA L ([id number])[facility] ([facility])[address]32 [place] [address] Mucus Auto (Urine sed) [#/Area] FEW Normal Reference range not established . [facility] Comment on above: Performed By: #### 5 8077-9 ####CALE CAI L ([id number])[facility] ([facility])[address]90 [place] [address] Nitrite Auto test strip Ql (U) Negative Normal NEGATIVE [facility] Comment on above: Performed By: #### 5 8077-9 ####CALE TOSCANOMOBALJITER L (90254)[facility] ([facility])[address]70 [place] [address] pH (U) 7.0 [pH] Normal 5.0, 5.5, 6.0, 6.5, 7.0, 7.5, 8.0 [facility] Comment on above: Performed By: #### 5 8077-9 ####CALE Roth ([id number])[facility] ([facility])[address] [place] [address] Protein (U) [Mass/Vol] 10 (TRACE) Normal NEGATIVE, 10 (TRACE), 20 (TRACE) [facility] Comment on above: Performed By: #### 5 8077-9 ####CALE Roth ([id number])[facility] ([facility])[address] [place] [address] RBC (U) [#/Vol] 0.5 (2+) Abnormal NEGATIVE [facility] Comment on above: Performed By: #### 5 8077-9 ####CALE Roth ([id number])[facility] ([facility])[address] [place] [address]6914 RBC Auto (Urine sed) [#/Area] >20 Abnormal NONE, 1-2, 3-5 [facility] Comment on above: Performed By: #### 5 8077-9 ####CALE Roth ([id number])[facility] ([facility])[address] [place] [address] Specific gravity (U) [Rel density] 1.016 Normal 1.005-1.035 [facility] Comment on above: Performed By: #### 5 8077-9 ####CALE Roth ([id number])[facility] ([facility])[address] [place] [address] Urobilinogen (U) [Mass/Vol] Normal Normal Normal [facility] Comment on above: Performed By: #### 5 8077-9 ####CALE Roth ([id number])[facility] ([facility])[address] [place] [address] 250[address] WBC Auto (Urine sed) [#/Area] 1-5 Normal 1-5, NONE [facility] Comment on above: Performed By: #### 5 8077-9 ####CALE Roth ([id number])[facility] ([facility])[address]006 [place] [address] XR CHEST 1 VIEWon 03-14-2025 XR CHEST [address] [facility] CBC panel Auto (Bld)on 03-13 Erythrocyte distribution width (RBC) [Ratio] 11.7 % Normal 11.5-14.5 [facility] Comment on above: Performed By: #### 5 8410-2 ####CALE Roth (77673)[facility] ([facility])[address] [place] [address] Hematocrit (Bld) [Volume fraction] 35.1 % Low 36.0-46.0 [facility] Comment on above: Performed By: #### 5 8410-2 ####CALE Roth ([id number])[facility] ([facility])[address] [place] [address]74[address] Hemoglobin (Bld) [Mass/Vol] 11.6 g/dL Low 12.0-16.0 [facility] Comment on above: Performed By: #### 5 8410-2 ####CALE Roth (33331)[facility] ([facility])[address] [place] [address] MCH (RBC) [Entitic mass] 29.3 pg Normal 26.0-34.0 [facility] Comment on above: Performed By: #### 5 8410-2 ####CALE Roth ([id number])[facility] ([facility])[address] [place] [address] MCHC (RBC) [Mass/Vol] 33.0 g/dL Normal 32.0-36.0 [facility] Comment on above: Performed By: #### 5 8410-2 ####CALE Roth (75245)[facility] ([facility])[address] [place] [address] MCV (RBC) [Entitic vol] 89 fL Normal 80-100 [facility] Comment on above: Performed By: #### 5 8410-2 ####CALE Roth (32993)[facility] ([facility])[address]79 [place] [address] Nucleated RBC/100 WBC (Bld) [Ratio] 0.0 /100 WBCs Normal 0.0-0.0 [facility] Comment on above: Performed By: #### 5 8410-2 ####CALE Roth (74774)[facility] ([facility])[address]957 [place] [address] Platelets (Bld) [#/Vol] 262 x10*3/uL Normal 150-450 [facility] Comment on above: Performed By: #### 5 8410-2 ####CALE Roth ([id number])[facility] ([facility])[address]34 [place] [address] RBC (Bld) [#/Vol] 3.96 x10*6/uL Low 4.00-5.20 [facility] Comment on above: Performed By: #### 5 8410-2 ####CALE Roth (64691)[facility] ([facility])[address]606 [place] [address] WBC (Bld) [#/Vol] 9.5 x10*3/uL Normal 4.4-11.3 [facility] Comment on above: Performed By: #### 5 8410-2 ####CALE Roth ([id number])[facility] ([facility])[address] [place] [address] CT HEAD WO IV CONTRASTon CT HEAD WO IV CONTRAST Normal [facility] CT HEAD WO IV CONTRAST Normal [facility] Calcium.ionizedon 03-13-2025 Calcium.ionized (Bld) [Moles/Vol] 1.21 mmol/L Normal 1.1-1.33 [facility] Comment on above: Result Comment: The performance characteristics of ionized calcium testedin heparinized plasma or serum have been validated by [facility] where [facility] is [facility].Testing on heparinized plasma or serum is not approved by[facility] FDA; however, such approval is not necessary. Performed By: #### 1 994-3 ####CALE CAI L (51214)[facility] ([facility])[address]03 [place] [address] Glucose Test strip manual (B ld) [Mass/Vol]on 03-13-2025 Glucose [Mass/Vol] 180 mg/dL High [address] [place] [address] Comment on above: Performed By: #### 2 341-6 ####CALE PARKERTZGONZALEZ L (31829)[facility] ([facility])[address]47 [place] [address] Glucose [Mass/Vol] 146 mg/dL High [address] [place] [address] Comment on above: Performed By: #### 2 341-6 ####CALE CAI L ([id number])[facility] ([facility])[address]22 [place] [address] Glucose [Mass/Vol] 182 mg/dL High [address] [place] [address] Comment on above: Performed By: #### 2 341-6 ####CALE PARKERTZGONZALEZ L (41219)[facility] ([facility])[address]67 [place] [address] Glucose [Mass/Vol] 159 mg/dL High [address] [place] [address] Comment on above: Performed By: #### 2 341-6 ####CALE TOSCANOMOTZER L (90253)[facility] ([facility])[address]690 [place] [address] Glucose [Mass/Vol] 153 mg/dL High [address] [place] [address] Comment on above: Performed By: #### 2 341-6 ####CALE PARKERTZGONZALEZ L ([id number])[facility] ([facility])[address]40 [place] [address] Glucose [Mass/Vol] 129 mg/dL High [address] [place] [address] Comment on above: Performed By: #### 2 341-6 ####CALE TOSCANOMOTZER L ([id number])[facility] ([facility])[address]325 [place] [address] Glucose [Mass/Vol] 155 mg/dL High 74-99 [facility] Comment on above: Performed By: #### 2 341-6 ####CALE Roth (53845)[facility] ([facility])[address]9 [place] [address] Magnesiumon 03-13-2025 Magnesium [Mass/Vol] 2.32 mg/dL Normal 1.60-2.40 [facility] Comment on above: Performed By: #### 1 9123-9 ####CALE Roth (69909)[facility] ([facility])[address]95 [place] [address] Procalcitoninon 03-13-2025 Procalcitonin [Mass/Vol] 0.03 ng/mL Normal <=0.07 [facility] Comment on above: Order Comment: Proca [...] By: #### 3 3959-8 ####CALE CAI L ([id number])[facility] ([facility])[address]21 [place] [address] Renal function 2000 panelon 03-13-2025 Albumin BCP dye [Mass/Vol] 4.1 g/dL Normal 3.4-5.0 [facility] Comment on above: Performed By: #### 2 4362-6 ####CALE Roth (93794)[facility] ([facility])[address]118 [place] [address] Anion gap [Moles/Vol] 16 mmol/L Normal 10-20 [facility] Comment on above: Performed By: #### 2 4362-6 ####CALE Roth (91074)[facility] ([facility])[address]85 [place] [address] Calcium [Mass/Vol] 9.1 mg/dL Normal 8.6-10.6 [facility] Comment on above: Performed By: #### 2 4362-6 ####CALE Roth (89652)[facility] ([facility])[address]015 [place] [address] Chloride [Moles/Vol] 106 mmol/L Normal 98-107 [facility] Comment on above: Performed By: #### 2 4362-6 ####CALE Roth (09863)[facility] ([facility])[address]05 [place] [address] CO2 [Moles/Vol] 25 mmol/L Normal 21-[address] [facility] Comment on above: Performed By: #### 2 4362-6 ####CALE Roth ([id number])[facility] ([facility])[address]368 [place] [address] Creatinine [Mass/Vol] 0.44 mg/dL Low 0.50-1.05 [facility] Comment on above: Performed By: #### 2 4362-6 ####CALE Roth ([id number])[facility] ([facility])[address]481 [place] [address] Glomerular filtration rate >90 Normal >60 [facility] Comment on above: Result Comment: Calc ulations of estimated GFR are performed using the 2020 CKD-EPI Study Refit equation without the race variable for the IDMS-Traceable creatinine methods.https://jasn.asnjournals.org/content/early/ASN .4912220499 Performed By: #### 2 4362-6 ####CALE Roth (14462)[facility] ([facility])[address] [place] [address] Glucose [Mass/Vol] 154 mg/dL High 74-99 [facility] Comment on above: Performed By: #### 2 4362-6 ####CALE Roth ([id number])[facility] ([facility])[address]1940 [place] [address] Phosphate [Mass/Vol] 2.9 mg/dL Normal 2.5-4.9 [facility] Comment on above: Performed By: #### 2 4362-6 ####CALE Roth (68571)[facility] ([facility])[address]77 [place] [address] Potassium [Moles/Vol] 3.8 mmol/L Normal 3.5-5.3 [facility] Comment on above: Performed By: #### 2 4362-6 ####CALE Roth (73654)[facility] ([facility])[address]93 [place] [address] Urea nitrogen [Mass/Vol] 18 mg/dL Normal 6-23 [facility] Comment on above: Performed By: #### 2 4362-6 ####CALE Roth (56409)[facility] ([facility])[address]682 [place] [address] Sodiumon 03-13-2025 Sodium [Moles/Vol] 141 mmol/L Normal 136-145 [facility] Comment on above: Performed By: #### 2 951-2 ####CALE Roth (52092)[facility] ([facility])[address]44 [place] [address] Sodium [Moles/Vol] 139 mmol/L Normal 136-145 [facility] Comment on above: Performed By: #### 2 951-2 ####CALE Roth (55956)[facility] ([facility])[address] [place] [address] Sodium [Moles/Vol] 143 mmol/L Normal 136-145 [facility] Comment on above: Performed By: #### 2 951-2 ####CALE Roth (70393)[facility] ([facility])[address] [place] [address] Performed By: #### 2 4362-6 ####CALE Roth (27996)[facility] ([facility])[address] [place] [address]83 CBC panel Auto (Bld)on 03-12 Erythrocyte distribution width (RBC) [Ratio] 11.6 % Normal 11.5-14.5 [facility] Comment on above: Performed By: #### 5 8410-2 ####CALE Roth (90406)[facility] ([facility])[address] [place] [address] Hematocrit (Bld) [Volume fraction] 32.0 % Low 36.0-46.0 [facility] Comment on above: Performed By: #### 5 8410-2 ####CALE Roth ([id number])[facility] ([facility])[address] [place] [address] Hemoglobin (Bld) [Mass/Vol] 10.9 g/dL Low 12.0-16.0 [facility] Comment on above: Performed By: #### 5 8410-2 ####CALE Roth (27300)[facility] ([facility])[address] [place] [address] 51566 MCH (RBC) [Entitic mass] 29.9 pg Normal 26.0-34.0 [facility] Comment on above: Performed By: #### 5 8410-2 ####CALE Roth ([id number])[facility] ([facility])[address]38 [place] [address] MCHC (RBC) [Mass/Vol] 34.1 g/dL Normal 32.0-36.0 [facility] Comment on above: Performed By: #### 5 8410-2 ####CALE Roth ([id number])[facility] ([facility])[address]46 [place] [address] MCV (RBC) [Entitic vol] 88 fL Normal 80-100 [facility] Comment on above: Performed By: #### 5 8410-2 ####CALE Roth (06802)[facility] ([facility])[address]909 [place] [address] Nucleated RBC/100 WBC (Bld) [Ratio] 0.0 /100 WBCs Normal 0.0-0.0 [facility] Comment on above: Performed By: #### 5 8410-2 ####CALE Roth (65366)[facility] ([facility])45964 [place] [address] Platelets (Bld) [#/Vol] 233 x10*3/uL Normal 150-450 [facility] Comment on above: Performed By: #### 5 8410-2 ####CALE Roth (97834)[facility] ([facility])[address]152 [place] [address] RBC (Bld) [#/Vol] 3.64 x10*6/uL Low 4.00-5.20 [facility] Comment on above: Performed By: #### 5 8410-2 ####CALE Roth (23298)[facility] ([facility])[address]10 [place] [address] WBC (Bld) [#/Vol] 8.0 x10*3/uL Normal 4.4-11.3 [facility] Comment on above: Performed By: #### 5 8410-2 ####CALE Roth ([id number])[facility] ([facility])[address]272 [place] [address] Calcium.ionizedon 03-12-2025 Calcium.ionized (Bld) [Moles/Vol] 1.20 mmol/L Normal 1.1-1.33 [facility] Comment on above: Result Comment: The performance characteristics of ionized calcium testedin heparinized plasma or serum have been [facility] where [facility].Testing on heparinized plasma or serum is not approved bythe FDA; however, such approval is not necessary. Performed By: #### 1 994-3 ####CALE Roth (24146)[facility] ([facility])[address]306 [place] [address] Glucose Test strip manual (B ld) [Mass/Vol]on 03-12-2025 Glucose [Mass/Vol] 153 mg/dL High [address] [place] [address] Comment on above: Performed By: #### 2 341-6 ####CALE Roth ([id number])[facility] ([facility])16231 [place] [address] Glucose [Mass/Vol] 141 mg/dL High [address] [place] [address] Comment on above: Performed By: #### 2 341-6 ####CALE Roth (49469)[facility] ([facility])[address]64 [place] [address] Glucose [Mass/Vol] 155 mg/dL High [address] [place] [address] Comment on above: Performed By: #### 2 341-6 ####CALE Roth (70641)[facility] ([facility])[address]65 [place] [address] Glucose [Mass/Vol] 135 mg/dL High [address] [place] [address] Comment on above: Performed By: #### 2 341-6 ####CALE Roth (81625)[facility] ([facility])[address]77 [place] [address] Glucose [Mass/Vol] 158 mg/dL High [address] [place] [address] Comment on above: Performed By: #### 2 341-6 ####CALE Roth ([id number])[facility] ([facility])[address]13 [place] [address] Magnesiumon 03-12-2025 Magnesium [Mass/Vol] 2.22 mg/dL Normal 1.60-2.40 [facility] Comment on above: Performed By: #### 1 9123-9 ####CALE Roth ([id number])[facility] ([facility])[address] [place] [address] Renal function 2000 panelon 03-12-2025 Albumin BCP dye [Mass/Vol] 3.8 g/dL Normal 3.4-5.0 [facility] Comment on above: Performed By: #### 2 4362-6 ####CALE Roth ([id number])[facility] ([facility])[address] [place] [address]88[address] Anion gap [Moles/Vol] 9 mmol/L Low 10-20 [facility] Comment on above: Performed By: #### 2 4362-6 ####CALE Roth (15223)[facility] ([facility])[address]266 [place] [address] Calcium [Mass/Vol] 8.9 mg/dL Normal 8.6-10.6 [facility] Comment on above: Performed By: #### 2 4362-6 ####CALE Roth (62400)[facility] ([facility])[address] [place] [address]20[address] Chloride [Moles/Vol] 105 mmol/L Normal 98-107 [facility] Comment on above: Performed By: #### 2 4362-6 ####CALE Roth (82319)[facility] ([facility])[address]69 [place] [address] CO2 [Moles/Vol] 31 mmol/L Normal 21-[address] [facility] Comment on above: Performed By: #### 2 4362-6 ####CALE Roth ([id number])[facility] ([facility])[address]40 [place] [address] Creatinine [Mass/Vol] 0.42 mg/dL Low 0.50-1.05 [facility] Comment on above: Performed By: #### 2 4362-6 ####CALE Roth (69284)[facility] ([facility])[address]268 [place] [address] Glomerular filtration rate >90 Normal >60 [facility] Comment on above: Result Comment: Calc ulations of estimated GFR are performed using the 2020 CKD-EPI Study Refit equation without the race variable for the IDMS-Traceable creatinine methods.https://jasn.asnjournals.org/content/early/ASN .5802236931 Performed By: #### 2 4362-6 ####CALE Roth ([id number])[facility] ([facility])[address]136 [place] [address] Glucose [Mass/Vol] 147 mg/dL High 74-99 [facility] Comment on above: Performed By: #### 2 4362-6 ####CALE CAI L (75263)[facility] ([facility])[address]65 [place] [address] Phosphate [Mass/Vol] 3.8 mg/dL Normal 2.5-4.9 [facility] Comment on above: Performed By: #### 2 4362-6 ####CALE CAI L ([id number])[facility] ([facility])[address] [place] [address] Potassium [Moles/Vol] 3.4 mmol/L Low 3.5-5.3 [facility] Comment on above: Performed By: #### 2 4362-6 ####CALE CAI L ([id number])[facility] ([facility])[address] [place] [address] Urea nitrogen [Mass/Vol] 18 mg/dL Normal 6-23 [facility] Comment on above: Performed By: #### 2 4362-6 ####CALE Roth ([id number])[facility] ([facility])[address] [place] [address] Sodiumon 03-12-2025 Sodium [Moles/Vol] 145 mmol/L Normal 136-145 [facility] Comment on above: Performed By: #### 2 951-2 ####CALE Roth ([id number])[facility] ([facility])[address] [place] [address] Sodium [Moles/Vol] 139 mmol/L Normal 136-145 [facility] Comment on above: Performed By: #### 2 951-2 ####CALE Roth ([id number])[facility] ([facility])[address] [facility] [place] [address] Sodium [Moles/Vol] 141 mmol/L Normal 136-145 [facility] Comment on above: Performed By: #### 2 951-2 ####CALE Roth ([id number])[facility] ([facility])[address] [facility] [place] [address] Sodium [Moles/Vol] 142 mmol/L Normal 136-145 [facility] Comment on above: Performed By: #### 2 951-2 ####CALE Roth ([id number])[facility] ([facility] [facility] [facility] [place] [address] Performed By: #### 2 4362-6 ####CALE Roth ([id number])[facility] ([facility])[address] [place] [address] VASC US UPPER EXTREMITY VENO US DUPLEX BILATERALon 03-12-2025 VASC US UPPER EXTREMITY VENOUS DUPLEX BILATERAL Normal [facility] CBC panel Auto (Bld)on 03-11 Erythrocyte distribution width (RBC) [Ratio] 11.5 % Normal 11.5-14.5 [facility] Comment on above: Performed By: #### 5 8410-2 ####CALE Roth ([id number])[facility] ([facility])[address]24 [place] [address] Hematocrit (Bld) [Volume fraction] 30.3 % Low 36.0-46.0 [facility] Comment on above: Performed By: #### 5 8410-2 ####CALE Roth ([id number])[facility] ([facility])[address]17 [place] [address] Hemoglobin (Bld) [Mass/Vol] 10.9 g/dL Low 12.0-16.0 [facility] Comment on above: Performed By: #### 5 8410-2 ####CALE Roth ([id number])[facility] ([facility])[address] [place] [address] MCH (RBC) [Entitic mass] 30.0 pg Normal 26.0-34.0 [facility] Comment on above: Performed By: #### 5 8410-2 ####CALE Roth ([id number])[facility] ([facility])[address] [place] [address]60[address] MCHC (RBC) [Mass/Vol] 36.0 g/dL Normal 32.0-36.0 [facility] Comment on above: Performed By: #### 5 8410-2 ####CALE Roth ([id number])[facility] ([facility])[address] [place] [address]140 MCV (RBC) [Entitic vol] 84 fL Normal 80-100 [facility] Comment on above: Performed By: #### 5 8410-2 ####CALE Roth ([id number])[facility] ([facility])[address] [place] [address] 96872 Nucleated RBC/100 WBC (Bld) [Ratio] 0.0 /100 WBCs Normal 0.0-0.0 [facility] Comment on above: Performed By: #### 5 8410-2 ####CALE Roth ([id number])[facility] ([facility])[address] [place] [address] Platelets (Bld) [#/Vol] 231 x10*3/uL Normal 150-450 [facility] Comment on above: Performed By: #### 5 8410-2 ####CALE Roth ([id number])[facility] ([facility])[address]71 [place] [address] RBC (Bld) [#/Vol] 3.63 x10*6/uL Low 4.00-5.20 [facility] Comment on above: Performed By: #### 5 8410-2 ####CALE Roth ([id number])[facility] ([facility])28472 [place] [address] WBC (Bld) [#/Vol] 8.0 x10*3/uL Normal 4.4-11.3 [facility] Comment on above: Performed By: #### 5 8410-2 ####CALE Roth ([id number])[facility] ([facility])[address] [place] [address] Calcium.ionizedon 03-11-2025 Calcium.ionized (Bld) [Moles/Vol] 1.21 mmol/L Normal 1.1-1.33 [facility] Comment on above: Result Comment: The performance characteristics of ionized calcium testedin heparinized plasma or serum have been [facility] where [facility].Testing on heparinized plasma or serum is not approved by[facility] FDA; however, such approval is not necessary. Performed By: #### 1 994-3 ####CALE Roth ([id number])[facility] ([facility])[address]94 [place] [address] Glucose Test strip manual (B ld) [Mass/Vol]on 03-11-2025 Glucose [Mass/Vol] 151 mg/dL High 74-99 [facility] Comment on above: Performed By: #### 2 341-6 ####CALE Roth ([id number])[facility] ([facility])[address]292 [place] [address] Glucose [Mass/Vol] 125 mg/dL High 74-99 [facility] Comment on above: Performed By: #### 2 341-6 ####CALE Roth ([id number])[facility] ([facility])[address]07 [place] [address] Glucose [Mass/Vol] 171 mg/dL High [address] [place] [address] Comment on above: Performed By: #### 2 341-6 ####CALE Roth ([id number])[facility] ([facility])24208 [place] [address] Glucose [Mass/Vol] 158 mg/dL High -99 [facility] Comment on above: Performed By: #### 2 341-6 ####CALE Roth ([id number])[facility] ([facility])[address] [place] [address] Glucose [Mass/Vol] 142 mg/dL High [address] [place] [address] Comment on above: Performed By: #### 2 341-6 ####CALE Roth ([id number])[facility] ([facility])[address] [place] [address] Glucose [Mass/Vol] 132 mg/dL High [address] [place] [address] Comment on above: Performed By: #### 2 341-6 ####CALE Roth ([id number])[facility] ([facility])[address] [place] [address]96[address] Magnesiumon 03-11-2025 Magnesium [Mass/Vol] 2.15 mg/dL Normal 1.60-2.40 [facility] Comment on above: Performed By: #### 1 9123-9 ####CALE Roth ([id number])[facility] ([facility])[address]89 [place] [address] Renal function 2000 panelon 03-11-2025 Albumin BCP dye [Mass/Vol] 4.0 g/dL Normal 3.4-5.0 [facility] Comment on above: Performed By: #### 2 4362-6 ####CALE Roth ([id number])[facility] ([facility])[address]246 [place] [address] Anion gap [Moles/Vol] 11 mmol/L Normal 10-20 [facility] Comment on above: Performed By: #### 2 4362-6 ####CALE CAI L ([id number])[facility] ([facility])[address]50 [place] [address] Calcium [Mass/Vol] 9.4 mg/dL Normal 8.6-10.6 [facility] Comment on above: Performed By: #### 2 4362-6 ####CALE CAI L ([id number])[facility] ([facility])[address]706 [place] [address] Chloride [Moles/Vol] 105 mmol/L Normal 98-107 [facility] Comment on above: Performed By: #### 2 4362-6 ####CALE CAI L ([id number])[facility] ([facility])37048 [place] [address] CO2 [Moles/Vol] 28 mmol/L Normal 21-[address] [facility] Comment on above: Performed By: #### 2 4362-6 ####CALE CAI L ([id number])[facility] ([facility])[address]27 [place] [address] Creatinine [Mass/Vol] 0.37 mg/dL Low 0.50-1.05 [facility] Comment on above: Performed By: #### 2 4362-6 ####CALE CAI L ([id number])[facility] ([facility])[address]60 [place] [address] Glomerular filtration rate >90 Normal >60 [facility] Comment on above: Result Comment: Calc ulations of estimated GFR are performed using the 2020 CKD-EPI Study Refit equation without the race variable for the IDMS-Traceable creatinine methods.https://jasn.asnjournals.org/content//ASN .4686991359 Performed By: #### 2 4362-6 ####CALE Roth ([id number])[facility] ([facility])[address]503 [facility] [place] [address] Glucose [Mass/Vol] 151 mg/dL High 74-99 [facility] Comment on above: Performed By: #### 2 4362-6 ####CALE Roth ([id number])[facility] ([facility])[address]42 [facility] [place] [address] Phosphate [Mass/Vol] 3.0 mg/dL Normal 2.5-4.9 [facility] Comment on above: Performed By: #### 2 4362-6 ####CALE Roth ([id number])[facility] ([facility])[address]20 [place] [address] Potassium [Moles/Vol] 3.8 mmol/L Normal 3.5-5.3 [facility] Comment on above: Performed By: #### 2 4362-6 ####CALE Roth ([id number])[facility] ([facility])[address]74 [place] [address] Urea nitrogen [Mass/Vol] 16 mg/dL Normal 6-23 [facility] Comment on above: Performed By: #### 2 4362-6 ####CALE Roth ([id number])[facility] ([facility])[address]641 [facility] [place] [place] [address] Albumin BCP dye [Mass/Vol] 3.9 g/dL Normal 3.4-5.0 [facility] Comment on above: Performed By: #### 2 4362-6 ####CALE Roth ([id number])[facility] ([facility])[address]78 [place] [address] Anion gap [Moles/Vol] 13 mmol/L Normal 10-20 [facility] Comment on above: Performed By: #### 2 4362-6 ####CALE Roth ([id number])[facility] ([facility])[address]196 [facility] [place] [place] [address] Calcium [Mass/Vol] 9.2 mg/dL Normal 8.6-10.6 [facility] Comment on above: Performed By: #### 2 4362-6 ####CAEL Roth ([id number])[facility] ([facility])32243 [place] [address] Chloride [Moles/Vol] 106 mmol/L Normal 98-107 [facility] Comment on above: Performed By: #### 2 4362-6 ####CALE CAI L ([id number])[facility] ([facility])[address]305 [place] [address] CO2 [Moles/Vol] 27 mmol/L Normal 21-[address] [facility] Comment on above: Performed By: #### 2 4362-6 ####CALE Roth ([id number])[facility] ([facility])[address]854 [place] [address] Creatinine [Mass/Vol] 0.42 mg/dL Low 0.50-1.05 [facility] Comment on above: Performed By: #### 2 4362-6 ####CALE Roth (56131)[facility] ([facility])[address]64 [place] [address] Glomerular filtration rate >90 Normal >60 [facility] Comment on above: Result Comment: Calc ulations of estimated GFR are performed using the 2020 CKD-EPI Study Refit equation without the race variable for the IDMS-Traceable creatinine methods.https://jasn.asnjournals.org/content/early//ASN .9294568267 Performed By: #### 2 4362-6 ####CALE CAI L ([id number])[facility] ([facility])30775 [place] [address] Glucose [Mass/Vol] 141 mg/dL High 74-99 [facility] Comment on above: Performed By: #### 2 4362-6 ####CALE CAI L (56425)[facility] ([facility])[address]03 [place] [address] Phosphate [Mass/Vol] 3.0 mg/dL Normal 2.5-4.9 [facility] Comment on above: Performed By: #### 2 4362-6 ####CALE Roth (12294)[facility] ([facility])02582 [place] [address] Potassium [Moles/Vol] 3.2 mmol/L Low 3.5-5.3 [facility] Comment on above: Performed By: #### 2 4362-6 ####CALE Roth ([id number])[facility] ([facility])10904 [place] [address] Urea nitrogen [Mass/Vol] 20 mg/dL Normal 6-23 [facility] Comment on above: Performed By: #### 2 4362-6 ####CALE Roth (66295)[facility] ([facility])[address] [place] [address] Sodiumon 03-11-2025 Sodium [Moles/Vol] 140 mmol/L Normal 136-145 [facility] Comment on above: Performed By: #### 2 951-2 ####CALE Roth ([id number])[facility] ([facility])04289 [place] [address] Sodium [Moles/Vol] 140 mmol/L Normal 136-145 [facility] Comment on above: Performed By: #### 2 951-2 ####CALE Roth ([id number])[facility] ([facility])04598 [place] [address] Sodium [Moles/Vol] 140 mmol/L Normal 136-145 [facility] Comment on above: Performed By: #### 2 951-2 ####CALE Roth ([id number])[facility] ([facility])[address]24 [place] [address] Performed By: #### 2 4362-6 ####CALE Roth ([id number])[facility] ([facility])[address]10 [place] [address] Sodium [Moles/Vol] 144 mmol/L Normal 136-145 [facility] Comment on above: Performed By: #### 2 951-2 ####CALE Roth ([id number])[facility] ([facility])[address]49 [place] [address] Sodium [Moles/Vol] 143 mmol/L Normal 136-145 [facility] Comment on above: Performed By: #### 2 951-2 ####CALE Roth ([id number])[facility] ([facility])[address] [place] [address] Performed By: #### 2 4362-6 ####CALE Roth ([id number])[facility] ([facility])[address] [place] [address] VASC US LOWER EXTREMITY VENO US DUPLEX BILATERALon 03-11-2025 VASC US LOWER EXTREMITY VENOUS DUPLEX BILATERAL Normal [facility] CBC panel Auto (Bld)on 03-10 Erythrocyte distribution width (RBC) [Ratio] 11.6 % Normal 11.5-14.5 [facility] Comment on above: Performed By: #### 5 8410-2 ####CALE Roth ([id number])[facility] ([facility])[address] [place] [address] 99424 Hematocrit (Bld) [Volume fraction] 29.6 % Low 36.0-46.0 [facility] Comment on above: Performed By: #### 5 8410-2 ####CALE Roth ([id number])[facility] ([facility])[address] [place] [address]1601 Hemoglobin (Bld) [Mass/Vol] 10.5 g/dL Low 12.0-16.0 [facility] Comment on above: Performed By: #### 5 8410-2 ####CALE Roth (01352)[facility] ([facility])[address] [place] [address] 75232 MCH (RBC) [Entitic mass] 29.7 pg Normal 26.0-34.0 [facility] Comment on above: Performed By: #### 5 8410-2 ####CALE Roth ([id number])[facility] ([facility])[address]2640 [place] [address] MCHC (RBC) [Mass/Vol] 35.5 g/dL Normal 32.0-36.0 [facility] Comment on above: Performed By: #### 5 8410-2 ####CALE Roth ([id number])[facility] ([facility])56418 [place] [address] MCV (RBC) [Entitic vol] 84 fL Normal 80-100 [facility] Comment on above: Performed By: #### 5 8410-2 ####CALE Roth ([id number])[facility] ([facility])27433 [place] [address] Nucleated RBC/100 WBC (Bld) [Ratio] 0.0 /100 WBCs Normal 0.0-0.0 [facility] Comment on above: Performed By: #### 5 8410-2 ####CLAE Roth (06325)[facility] ([facility])08271 [place] [address] Platelets (Bld) [#/Vol] 197 x10*3/uL Normal 150-450 [facility] Comment on above: Performed By: #### 5 8410-2 ####CALE Roth ([id number])[facility] ([facility])40531 [place] [address] RBC (Bld) [#/Vol] 3.53 x10*6/uL Low 4.00-5.20 [facility] Comment on above: Performed By: #### 5 8410-2 ####CALE Roth ([id number])[facility] ([facility])97945 [place] [address] WBC (Bld) [#/Vol] 6.1 x10*3/uL Normal 4.4-11.3 [facility] Comment on above: Performed By: #### 5 8410-2 ####CALE Roth (54056)[facility] ([facility])[address]10 [place] [address] CT HEAD WO IV CONTRASTon CT HEAD WO IV CONTRAST Normal [facility] Glucose Test strip manual (B ld) [Mass/Vol]on 03-10-2025 Glucose [Mass/Vol] 151 mg/dL High [address] [place] [address] Comment on above: Performed By: #### 2 341-6 ####CALE Roth (48087)[facility] ([facility])17577 [place] [address] Glucose [Mass/Vol] 146 mg/dL High [address] [place] [address] Comment on above: Performed By: #### 2 341-6 ####CALE Roth (53303)[facility] ([facility])32967 [place] [address] Glucose [Mass/Vol] 142 mg/dL High [address] [place] [address] Comment on above: Performed By: #### 2 341-6 ####CALE Roth ([id number])[facility] ([facility])46770 [place] [address] Glucose [Mass/Vol] 178 mg/dL High [address] [place] [address] Comment on above: Performed By: #### 2 341-6 ####CALE Roth ([id number])[facility] ([facility])21718 [place] [address] Glucose [Mass/Vol] 152 mg/dL High [address] [place] [address] Comment on above: Performed By: #### 2 341-6 ####CALE Roth ([id number])[facility] ([facility])00758 [place] [address] Glucose [Mass/Vol] 122 mg/dL High [address] [place] [address] Comment on above: Performed By: #### 2 341-6 ####CALE Roth ([id number])[facility] ([facility])70605 [place] [address] Glucose [Mass/Vol] 144 mg/dL High 74-99 [facility] Comment on above: Performed By: #### 2 341-6 ####CALE Roth ([id number])[facility] ([facility])37560 [place] [address] Magnesiumon 03-10-2025 Magnesium [Mass/Vol] 2.06 mg/dL Normal 1.60-2.40 [facility] Comment on above: Performed By: #### 1 9123-9 ####CALE Roth ([id number])[facility] ([facility])[address] [place] [address] 20013 Renal function 2000 panelon 03-10-2025 Albumin BCP dye [Mass/Vol] 3.7 g/dL Normal 3.4-5.0 [facility] Comment on above: Performed By: #### 2 4362-6 ####CALE Roth ([id number])[facility] ([facility])95502 [place] [address] Anion gap [Moles/Vol] 14 mmol/L Normal 10-20 [facility] Comment on above: Performed By: #### 2 4362-6 ####CALE Roth ([id number])[facility] ([facility])[address]4937 [place] [address] Calcium [Mass/Vol] 9.0 mg/dL Normal 8.6-10.6 [facility] Comment on above: Performed By: #### 2 4362-6 ####CALE Roth ([id number])[facility] ([facility])24383 [place] [address] Chloride [Moles/Vol] 106 mmol/L Normal 98-107 [facility] Comment on above: Performed By: #### 2 4362-6 ####CALE Roth ([id number])[facility] ([facility])[address] [place] [address] CO2 [Moles/Vol] 27 mmol/L Normal 21-[address] [facility] Comment on above: Performed By: #### 2 4362-6 ####CALE Roth (91454)[facility] ([facility])69678 [place] [address] Creatinine [Mass/Vol] 0.38 mg/dL Low 0.50-1.05 [facility] Comment on above: Performed By: #### 2 4362-6 ####CALE Roth (79956)[facility] ([facility])01658 [place] [address] Glomerular filtration rate >90 Normal >60 [facility] Comment on above: Result Comment: Calc ulations of estimated GFR are performed using the 2020 CKD-EPI Study Refit equation without the race variable for the IDMS-Traceable creatinine methods.https://jasn.asnjournals.org/content/early//ASN .3234692102 Performed By: #### 2 4362-6 ####CALE Roth (98436)[facility] ([facility])88847 [place] [address] Glucose [Mass/Vol] 139 mg/dL High 74-99 [facility] Comment on above: Performed By: #### 2 4362-6 ####CALE Roth ([id number])[facility] ([facility])81352 [place] [address] Phosphate [Mass/Vol] 2.9 mg/dL Normal 2.5-4.9 [facility] Comment on above: Performed By: #### 2 4362-6 ####CALE Roth (78374)[facility] ([facility])50885 [place] [address] Potassium [Moles/Vol] 3.5 mmol/L Normal 3.5-5.3 [facility] Comment on above: Performed By: #### 2 4362-6 ####CALE Roth (45312)[facility] ([facility])[address]13 [place] [address] Sodium [Moles/Vol] 143 mmol/L Normal 136-145 [facility] Comment on above: Performed By: #### 2 4362-6 ####CALE Roth ([id number])[facility] ([facility])17487 [place] [address] Urea nitrogen [Mass/Vol] 16 mg/dL Normal 6-23 [facility] Comment on above: Performed By: #### 2 4362-6 ####CALE Roth ([id number])[facility] ([facility])43814 [place] [address] Sodiumon 03-10-2025 Sodium [Moles/Vol] 145 mmol/L Normal 136-145 [facility] Comment on above: Performed By: #### 2 951-2 ####CALE Roth ([id number])[facility] ([facility])[address] [place] [address]93 Sodium [Moles/Vol] 144 mmol/L Normal 136-145 [facility] Comment on above: Performed By: #### 2 951-2 ####CALE Roth ([id number])[facility] ([facility])16566 [place] [address] CBC W Auto Differential pane l (Bld)on 03-09-2025 Basophils (Bld) [#/Vol] 0.04 x10*3/uL Normal 0.00-0.10 [facility] Comment on above: Performed By: #### 5 7021-8 ####CALE Roth ([id number])[facility] ([facility])45986 [place] [address] Basophils/100 WBC (Bld) 0.6 % Normal 0.0-2.0 [facility] Comment on above: Performed By: #### 5 7021-8 ####CALE Roth (93358)[facility] ([facility])63584 [place] [address] Eosinophils (Bld) [#/Vol] 0.07 x10*3/uL Normal 0.00-0.70 [facility] Comment on above: Performed By: #### 5 7021-8 ####CALE Roth ([id number])[facility] ([facility])[address] [place] [address] 27457 Eosinophils/100 WBC (Bld) 1.1 % Normal 0.0-6.0 [facility] Comment on above: Performed By: #### 5 7021-8 ####CALE Roth ([id number])[facility] ([facility])[address] [place] [address] 34190 Erythrocyte distribution width (RBC) [Ratio] 11.4 % Low 11.5-14.5 [facility] Comment on above: Performed By: #### 5 7021-8 ####CALE Roth ([id number])[facility] ([facility])[address] [place] [address] 19852 Hematocrit (Bld) [Volume fraction] 31.0 % Low 36.0-46.0 [facility] Comment on above: Performed By: #### 5 7021-8 ####CALE Roth ([id number])[facility] ([facility])[address] [place] [address] 93006 Hemoglobin (Bld) [Mass/Vol] 10.8 g/dL Low 12.0-16.0 [facility] Comment on above: Performed By: #### 5 7021-8 ####CALE Roth ([id number])[facility] ([facility])[address] [place] [address] 11212 Immature granulocytes (Bld) [#/Vol] 0.24 x10*3/uL Normal 0.00-0.70 [facility] Comment on above: Performed By: #### 5 7021-8 ####CALE Roth ([id number])[facility] ([facility])[address] [place] [address] 56112 Immature granulocytes/100 WBC (Bld) 3.8 % High 0.0-0.9 [facility] Comment on above: Result Comment: Aleisha ture Granulocyte Count (IG) includes promyelocytes, myelocytes and metamyelocytes but does not include bands. Percent differential counts (%) should be interpreted in the context of the absolute cell counts (cells/UL). Performed By: #### 5 7021-8 ####CALE Roth ([id number])[facility] ([facility])[address] [place] [address] Lymphocytes (Bld) [#/Vol] 1.02 x10*3/uL Low 1.20-4.80 [facility] Comment on above: Performed By: #### 5 7021-8 ####CALE Roth ([id number])[facility] ([facility])[address] [place] [address] Lymphocytes/100 WBC (Bld) 16.2 % Normal 13.0-44.0 [facility] Comment on above: Performed By: #### 5 7021-8 ####CALE Roth ([id number])[facility] ([facility])[id number] [place] [address] MCH (RBC) [Entitic mass] 29.8 pg Normal 26.0-34.0 [facility] Comment on above: Performed By: #### 5 7021-8 ####CALE Roth ([id number])[facility] ([facility])[address] [place] [address] MCHC (RBC) [Mass/Vol] 34.8 g/dL Normal 32.0-36.0 [facility] Comment on above: Performed By: #### 5 7021-8 ####CALE TOSCANOMOISAURA L ([id number])[facility] ([facility])[address] [place] [address] MCV (RBC) [Entitic vol] 86 fL Normal 80-100 [facility] Comment on above: Performed By: #### 5 7021-8 ####CALE Roth ([id number])[facility] ([facility])[address] [place] [address] Monocytes (Bld) [#/Vol] 0.67 x10*3/uL Normal 0.10-1.00 [facility] Comment on above: Performed By: #### 5 7021-8 ####CALE CAI L ([id number])[facility] ([facility])[address] [place] [address] Monocytes/100 WBC (Bld) 10.7 % Normal 2.0-10.0 [facility] Comment on above: Performed By: #### 5 7021-8 ####CALE CAI L ([id number])[facility] ([facility])[address] [place] [address] Neutrophils (Bld) [#/Vol] 4.25 x10*3/uL Normal 1.20-7.70 [facility] Comment on above: Result Comment: Perc ent differential counts (%) should be interpreted in the context of the absolute cell counts (cells/uL). Performed By: #### 5 7021-8 ####CALE CAI L ([id number])[facility] ([facility])[address] [place] [address] Neutrophils/100 WBC (Bld) 67.6 % Normal 40.0-80.0 [facility] Comment on above: Performed By: #### 5 7021-8 ####CALE CAI L ([id number])[facility] ([facility])[address] [place] [address] Nucleated RBC/100 WBC (Bld) [Ratio] 0.0 /100 WBCs Normal 0.0-0.0 [facility] Comment on above: Performed By: #### 5 7021-8 ####CALE CAI L ([id number])[facility] ([facility])[address] [place] [address] Platelets (Bld) [#/Vol] 184 x10*3/uL Normal 150-450 [facility] Comment on above: Performed By: #### 5 7021-8 ####CALE Roth ([id number])[facility] ([facility])[address] [place] [address] RBC (Bld) [#/Vol] 3.62 x10*6/uL Low 4.00-5.20 [facility] Comment on above: Performed By: #### 5 7021-8 ####CALE Roth ([id number])[facility] ([facility])[address] [place] [address] WBC (Bld) [#/Vol] 6.3 x10*3/uL Normal 4.4-11.3 [facility] Comment on above: Performed By: #### 5 7021-8 ####CALE Roth ([id number])[facility] ([facility])[address] [place] [address] Calcium.ionizedon 03-09-2025 Calcium.ionized (Bld) [Moles/Vol] 1.19 mmol/L Normal 1.1-1.33 [facility] Comment on above: Result Comment: The performance characteristics of ionized calcium testedin heparinized plasma or serum have [facility].Testing on heparinized plasma or serum is not approved bythe FDA; however, such approval is not necessary. Performed By: #### 1 994-3 ####CALE Roth ([id number])[facility] ([facility])[address] [place] [address] Glucose Test strip manual (B ld) [Mass/Vol]on 03-09-2025 Glucose [Mass/Vol] 134 mg/dL High [address] [place] [address] Comment on above: Performed By: #### 2 341-6 ####CALE Roth ([id number])[facility] ([facility])[address] [place] [address] Glucose [Mass/Vol] 139 mg/dL [facility] [address] Comment on above: Performed By: #### 2 341-6 ####CALE Roth ([id number])[facility] ([facility])[address] [place] [address] Glucose [Mass/Vol] 133 mg/dL High 74-99 [facility] Comment on above: Performed By: #### 2 341-6 ####CALE Roth ([id number])[facility] ([facility])[address] [place] [address] Glucose [Mass/Vol] 154 mg/dL High 74-99 [facility] Comment on above: Performed By: #### 2 341-6 ####CALE Roth ([id number])[facility] ([facility])[address] [place] [address] Glucose [Mass/Vol] 162 mg/dL High 74-99 [facility] Comment on above: Performed By: #### 2 341-6 ####CALE Roth ([id number])[facility] ([facility])[address] [place] [address] Magnesiumon 03-09-2025 Magnesium [Mass/Vol] 2.01 mg/dL Normal 1.60-2.40 [facility] Comment on above: Performed By: #### 1 9123-9 ####CALE Roth ([id number])[facility] ([facility])[address]197 [place] [address] Renal function 2000 panelon 03-09-2025 Albumin BCP dye [Mass/Vol] 3.6 g/dL Normal 3.4-5.0 [facility] Comment on above: Performed By: #### 2 4362-6 ####CALE Roth ([id number])[facility] ([facility])[address] [place] [address] Anion gap [Moles/Vol] 12 mmol/L Normal 10-20 [facility] Comment on above: Performed By: #### 2 4362-6 ####CALE Roth ([id number])[facility] ([facility])[address] [place] [address] Calcium [Mass/Vol] 8.9 mg/dL Normal 8.6-10.6 [facility] Comment on above: Performed By: #### 2 4362-6 ####CALE Roth ([id number])[facility] ([facility])[address] [place] [address] Chloride [Moles/Vol] 106 mmol/L Normal 98-107 [facility] Comment on above: Performed By: #### 2 4362-6 ####CALE CAI L ([id number])[facility] ([facility])[address]446 [place] [address] CO2 [Moles/Vol] 29 mmol/L Normal 21-[address] [facility] Comment on above: Performed By: #### 2 4362-6 ####CALE Roth ([id number])[facility] ([facility])[address]648 [place] [address] Creatinine [Mass/Vol] 0.47 mg/dL Low 0.50-1.05 [facility] Comment on above: Performed By: #### 2 4362-6 ####CALE Roth ([id number])[facility] ([facility])[address]461 [place] [address] Glomerular filtration rate >90 Normal >60 [facility] Comment on above: Result Comment: Calc ulations of estimated GFR are performed using the 2020 CKD-EPI Study Refit equation without the race variable for the IDMS-Traceable creatinine methods.https://jasn.asnjournals.org/content/early//ASN .2017528885 Performed By: #### 2 4362-6 ####CALE CAI L ([id number])[facility] ([facility])[address] [place] [address] Glucose [Mass/Vol] 154 mg/dL High 74-99 [facility] Comment on above: Performed By: #### 2 4362-6 ####CALE CAI L ([id number])[facility] ([facility])[address]14 [place] [address] Phosphate [Mass/Vol] 2.8 mg/dL Normal 2.5-4.9 [facility] Comment on above: Performed By: #### 2 4362-6 ####CALE Roth ([id number])[facility] ([facility])[address]26 [place] [address] Potassium [Moles/Vol] 3.6 mmol/L Normal 3.5-5.3 [facility] Comment on above: Performed By: #### 2 4362-6 ####CALE Roth ([id number])[facility] ([facility])[address] [place] [address] Urea nitrogen [Mass/Vol] 14 mg/dL Normal 6-23 [facility] Comment on above: Performed By: #### 2 4362-6 ####CALE Roth ([id number])[facility] ([facility])[address]298 [place] [address] Sodiumon 03-09-2025 Sodium [Moles/Vol] 143 mmol/L Normal 136-145 [facility] Comment on above: Performed By: #### 2 951-2 ####CALE Roth ([id number])[facility] ([facility])[address]87 [place] [address] Sodium [Moles/Vol] 146 mmol/L High 136-145 [facility] Comment on above: Performed By: #### 2 951-2 ####CALE Roth ([id number])[facility] ([facility])[address] [place] [address] Sodium [Moles/Vol] 144 mmol/L Normal 136-145 [facility] Comment on above: Performed By: #### 2 951-2 ####CALE Roth ([id number])[facility] ([facility])[address]197 [place] [address] Sodium [Moles/Vol] 143 mmol/L Normal 136-145 [facility] Comment on above: Performed By: #### 2 951-2 ####CALE Roth ([id number])[facility] ([facility])[address]377 [place] [address] Performed By: #### 2 4362-6 ####CALE Roth ([id number])[facility] ([facility])[address] [place] [address] Vancomycinon 03-09-2025 Vancomycin [Mass/Vol] 13.6 ug/mL Normal 5.0-20.0 [facility] Comment on above: Order Comment: Vanco [...] Performed By: #### 2 0578-1 ####CALE Roth ([id number])[facility] ([facility])[address] [place], [place] [address] Adenovirus DNAon 03-08-2025 Adenovirus DNA JOSE+probe Ql (Unsp spec) Not detected Normal Not detected [facility] Comment on above: Order Comment: This [...] Performed By: #### 3 9528-5 ####CALE Roth ([id number])[facility] ([facility])[address]75 [place] [address] Bacteriaon 03-08-2025 Bacteria identified Respiratory culture Nom (Unsp spec) Abnormal [facility] Comment on above: Performed By: #### 3 2355-0 ####CALE TOSCANOMOTZER L ([id number])[facility] ([facility])[address]99 [place] [address] Bacteria identified Cx Nom (CSF) Normal [facility] Comment on above: Performed By: #### 6 06-4 ####CALE SCHMOTZER L ([id number])[facility] ([facility])[address]26 [place] [address] Bacteria identified Cx Nom (Bld) Normal [facility] Comment on above: Performed By: #### 6 00-7 ####CALE EVERTONMOTZER L ([id number])[facility] ([facility])[address] [place] [address] CBC W Auto Differential pane l (d)on 03-08-2025 Erythrocyte distribution width (RBC) [Ratio] 11.9 % Normal 11.5-14.5 [facility] Comment on above: Order Comment: The [...] By: #### 5 7021-8 ####CALE TOSCANOMOTZER L ([id number])[facility] ([facility])[address]502 [place] [address] Hematocrit (Bld) [Volume fraction] 36.7 % Normal 36.0-46.0 [facility] Comment on above: Order Comment: The [...] Performed By: #### 5 7021-8 ####CALE Roth ([id number])[facility] ([facility])[address] [place] [address] Hemoglobin (Bld) [Mass/Vol] 12.1 g/dL Normal 12.0-16.0 [facility] Comment on above: Order Comment: The [...] Performed By: #### 5 7021-8 ####CALE Roth ([id number])[facility] ([facility])[address] [place] [address] Immature granulocytes (Bld) [#/Vol] 0.19 x10*3/uL Normal 0.00-0.70 [facility] Comment on above: Order Comment: The [...] Performed By: #### 5 7021-8 ####CALE Roth ([id number])[facility] ([facility])[address]20 [place] [address] Immature granulocytes/100 WBC (Bld) 1.5 % High 0.0-0.9 [facility] Comment on above: Order Comment: The [...] Performed By: #### 5 7021-8 ####CALE Roth ([id number])[facility] ([facility])[address]556 [place] [address] MCH (RBC) [Entitic mass] 30.0 pg Normal 26.0-34.0 [facility] Comment on above: Order Comment: The [...] Performed By: #### 5 7021-8 ####CALE Roth ([id number])[facility] ([facility])[address]34 [place] [address] MCHC (RBC) [Mass/Vol] 33.0 g/dL Normal 32.0-36.0 [...] By: #### 5 7021-8 ####CALE TOSCANOMOTZER L ([id number])[facility] ([facility])[address]87 [place] [address] MCV (RBC) [Entitic vol] 91 fL Normal 80-100 [facility] Comment on above: Order Comment: The [...] By: #### 5 7021-8 ####CALE TOSCANOMOTZER L ([id number])[facility] ([facility])[address]227 [place] [address] Nucleated RBC/100 WBC (Bld) [Ratio] 0.0 /100 WBCs Normal 0.0-0.0 [facility] Comment on above: Order Comment: The [...] By: #### 5 7021-8 ####CALE PARKERTZER L ([id number])[facility] ([facility])[address]494 [place] [address] Platelets (Bld) [#/Vol] 200 x10*3/uL Normal 150-450 [facility] Comment on above: Order Comment: The [...] By: #### 5 7021-8 ####CALE TOSCANOMOTZER L ([id number])[facility] ([facility])[address]74 [place] [address] RBC (Bld) [#/Vol] 4.03 x10*6/uL Normal 4.00-5.20 [facility] Comment on above: Order Comment: [...] By: #### 5 7021-8 ####CALE TOSCANOMOTZER L ([id number])[facility] ([facility])19284 [place] [address] WBC (Bld) [#/Vol] 12.6 x10*3/uL High 4.4-11.3 [facility] Comment on above: Order Comment: [...] Performed By: #### 5 7021-8 ####CALE Roth ([id number])[facility] ([facility])[address] [place] [address] CSF CELL COUNTon 03-08-2025 Appearance (CSF) Turbid Abnormal Clear [facility] Comment on above: Order Comment: CSF c ell count reference ranges have not been established by [facility]. Based on published references. Performed By: #### C TCS4 ####CALE TOSCANOMOTZER L ([id number])[facility] ([facility])[address] [place] [address]38 Color (CSF) Red Abnormal Colorless [facility] Comment on above: Order Comment: CSF c ell count reference ranges have not been established by [facility]. Based on published references. Performed By: #### C TCS4 ####CALE PARKERTZER L ([id number])[facility] ([facility])[address]42 [place] [address] Color (Spun CSF) Xanthochromic Normal [facility] Comment on above: Order Comment: CSF c ell count reference ranges have not been established by [facility]. Based on published references. Performed By: #### C TCS4 ####CALE TOSCANOMOTZER L ([id number])[facility] ([facility])[address]46 [place] [address] RBC Auto (CSF) [#/Vol] 31719 /uL High 0-5 [facility] Comment on above: Order Comment: CSF c ell count reference ranges have not been established by [facility]. Based on published references. Performed By: #### C TCS4 ####CALE Roth ([id number])[facility] ([facility])[address] [place] [address] Tube number Nom (CSF) [ID] Unspecified Normal [facility] Comment on above: Order Comment: CSF c ell count reference ranges have not been established by [facility]. Based on published references. Performed By: #### C TCS4 ####CALE Roth ([id number])[facility] ([facility])[address] [place] [address] WBC Auto (CSF) [#/Vol] 5 /uL Normal 1-5 [facility] Comment on above: Order Comment: CSF c ell count reference ranges have not been established by [facility]. Based on published references. Performed By: #### [place]cho TCS4 ####CALE Roth ([id number])[facility] ([facility])[address] [place] [address] CSF DIFFERENTIALon 5 Cells Counted Total (CSF) [#] 38 Normal [facility] Comment on above: Order Comment: CSF c ell differential reference ranges have not been established by [facility]. Based on published references. Performed By: #### D FCSF ####CALE Roth ([id number])[facility] ([facility])[address] [place] [address] Lymphocytes/100 WBC Manual cnt (CSF) 42 % Normal 28-96 [facility] Comment on above: Order Comment: CSF c ell differential reference ranges have not been established by [facility]. Based on published references. Performed By: #### D FCSF ####CALE Roth ([id number])[facility] ([facility])[address]505 [place] [address] Monocytes+Macrophage s/100 WBC Manual cnt (CSF) 16 % Normal 16-56 [facility] Comment on above: Order Comment: CSF c ell differential reference ranges have not been established by [facility]. Based on published references. Performed By: #### D FCSF ####CALE Roth ([id number])[facility] ([facility])[address]303 [place] [address] Segmented neutrophils/100 WBC Manual cnt (CSF) 42 % High 0-5 [facility] Comment on above: Order Comment: CSF c ell differential reference ranges have not been established by [facility]. Based on published references. Performed By: #### D FCSF ####CALE Roth ([id number])[facility] ([facility])[address] [place] [address] CT HEAD WO IV CONTRASTon CT HEAD WO IV CONTRAST Normal [facility] Calcium.ionizedon 03-08-2025 Calcium.ionized (Bld) [Moles/Vol] 1.18 mmol/L Normal 1.1-1.33 [facility] Comment on above: Result Comment: The performance characteristics of ionized calcium testedin heparinized plasma or serum have [facility].Testing on heparinized plasma or serum is not approved bythe FDA; however, such approval is not necessary. Performed By: #### 1 994-3 ####CALE Roth ([id number])[facility] ([facility])[address]602 [place] [address] Glucoseon 03-08-2025 Glucose (CSF) [Mass/Vol] 84 mg/dL High 40-70 [facility] Comment on above: Performed By: #### 2 342-4 ####CALE Roth ([id number])[facility] ([facility])[address]47 [place] [address] Glucose Test strip manual (B ld) [Mass/Vol]on 03-08-2025 Glucose [Mass/Vol] 133 mg/dL High 74-99 [facility] Comment on above: Performed By: #### 2 341-6 ####CALE Roth ([id number])[facility] ([facility])[address]284 [place] [address] Glucose [Mass/Vol] 119 mg/dL High 74-99 [facility] Comment on above: Performed By: #### 2 341-6 ####CALE Roth ([id number])[facility] ([facility])[address]19 [place] [address] Glucose [Mass/Vol] 127 mg/dL High [address] [place] [address] Comment on above: Performed By: #### 2 341-6 ####CALE Roth ([id number])[facility] ([facility])[address]33 [place] [address] Glucose [Mass/Vol] 124 mg/dL High [address] [place] [address] Comment on above: Performed By: #### 2 341-6 ####CALE Roth ([id number])[facility] ([facility])[address]52 [place] [address] Glucose [Mass/Vol] 127 mg/dL High [address] [place] [address] Comment on above: Performed By: #### 2 341-6 ####CALE Roth ([id number])[facility] ([facility])[address]383 [place] [address] Glucose [Mass/Vol] 135 mg/dL High [address] [place] [address] Comment on above: Performed By: #### 2 341-6 ####CALE Roth ([id number])[facility] ([facility])[address]641 [place] [address] Glucose [Mass/Vol] 124 mg/dL High [address] [place] [address] Comment on above: Performed By: #### 2 341-6 ####CALE Roth ([id number])[facility] ([facility])[address]306 [place] [address] Human metapneumovirus RNAon 03-08-2025 hMPV RNA JOSE+probe Ql (Unsp spec) Not detected Normal Not detected [facility] Comment on above: Order Comment: This [...] Performed By: #### 3 8917-1 ####CALE Roth ([id number])[facility] ([facility])[address] [place] [address] Influenza virus Aon 03-08-20 25 FLUAV RNA JOSE+probe Ql (Resp) Not detected Normal Not Detected [facility] Comment on above: Order Comment: This assay is an FDA-cleared, in vitro diagnostic nucleic acid amplification test for the qualitative detection and differentiation of SARS CoV-2/ Influenza A/B/ RSV from nasopharyngeal specimens collected from individuals with signs and symptoms of respiratory tract infections, and has been validated for use at [facility]. Negative results do not preclude COVID-19/ Influenza A/B/ RSV infections and should not be used as the sole basis for diagnosis, treatment, or other management decisions. Testing for SARS CoV-2 is recommended only for patients who meet current clinical and/or epidemiological criteria defined by federal, state, or local public health directives. Performed By: #### 9 5941-1 ####CALE Roth ([id number])[facility] ([facility])[address] [place], [place] [address] FLUBV RNA JOSE+probe Ql (Resp) Not detected Normal Not Detected [facility] Comment on above: Order Comment: This assay is an FDA-cleared, in vitro diagnostic nucleic acid amplification test for the qualitative detection and differentiation of SARS CoV-2/ Influenza A/B/ RSV from nasopharyngeal specimens collected from individuals with signs and symptoms of respiratory tract infections, and has been validated for use at [facility]. Negative results do not preclude COVID-19/ Influenza A/B/ RSV infections and should not be used as the sole basis for diagnosis, treatment, or other management decisions. Testing for SARS CoV-2 is recommended only for patients who meet current clinical and/or epidemiological criteria defined by federal, state, or local public health directives. Performed By: #### 9 5941-1 ####CALE Roth ([id number])[facility] ([facility])[address]31 [place] [address] RSV RNA JOSE+probe Ql (Resp) Not detected Normal Not Detected [facility] Comment on above: Order Comment: This assay is an FDA-cleared, in vitro diagnostic nucleic acid amplification test for the qualitative detection and differentiation of SARS CoV-2/ Influenza A/B/ RSV from nasopharyngeal specimens collected from individuals with signs and symptoms of respiratory tract infections, and has been validated for use at [facility]. Negative results do not preclude COVID-19/ Influenza A/B/ RSV infections and should not be used as the sole basis for diagnosis, treatment, or other management decisions. Testing for SARS CoV-2 is recommended only for patients who meet current clinical and/or epidemiological criteria defined by federal, state, or local public health directives. Performed By: #### 9 5941-1 ####CALE Roth ([id number])[facility] ([facility])[address] [place] [address] SARS-CoV-2 (COVID-19) RNA JOSE+probe Ql (Resp) Not detected Normal Not Detected [facility] Comment on above: Order Comment: This assay is an FDA-cleared, in vitro diagnostic nucleic acid amplification test for the qualitative detection and differentiation of SARS CoV-2/ Influenza A/B/ RSV from nasopharyngeal specimens collected from individuals with signs and symptoms of respiratory tract infections, and has been validated for use at [facility]. Negative results do not preclude COVID-19/ Influenza A/B/ RSV infections and should not be used as the sole basis for diagnosis, treatment, or other management decisions. Testing for SARS CoV-2 is recommended only for patients who meet current clinical and/or epidemiological criteria defined by federal, state, or local public health directives. Performed By: #### 9 5941-1 ####CALE Roth ([id number])[facility] ([facility])[address] [place] [address] Magnesiumon 03-08-2025 Magnesium [Mass/Vol] 2.17 mg/dL Normal 1.60-2.40 [facility] Comment on above: Performed By: #### 1 9123-9 ####CALE Roth ([id number])[facility] ([facility])[address]24 [place] [address] Manual differential performe d Ql (Bld)on 03-08-2025 Band form neutrophils (Bld) [#/Vol] 0.87 x10*3/uL High 0.00-0.70 [facility] Comment on above: Performed By: #### 5 57-0 ####CALE Roth ([id number])[facility] ([facility])[address]85 [place] [address] Band form neutrophils/100 WBC (Bld) 6.9 % Normal 0.0-5.0 [facility] Comment on above: Performed By: #### 5 57-0 ####CALE Roth ([id number])[facility] ([facility])[address] [place] [address]69[address] Basophils (Bld) [#/Vol] 0.00 x10*3/uL Normal 0.00-0.10 [facility] Comment on above: Performed By: #### 5 57-0 ####CALE Roth ([id number])[facility] ([facility])[address]11 [place] [address] Basophils/100 WBC (Bld) 0.0 % Normal 0.0-2.0 [facility] Comment on above: Performed By: #### 5 57-0 ####CALE Roth ([id number])[facility] ([facility])[address]131 [place] [address] Blasts Manual cnt (Bld) [#/Vol] 0.00 x10*3/uL Normal 0.00-0.00 [facility] Comment on above: Performed By: #### 5 57-0 ####CALE Roth ([id number])[facility] ([facility])[address] [place] [address] Blasts/100 WBC (Bld) 0.0 % Normal 0.0-0.0 [facility] Comment on above: Performed By: #### 5 57-0 ####CALE Roth ([id number])[facility] ([facility])[address]358 [place] [address] Cells Counted Total (Bld) [#] 116 Normal [facility] Comment on above: Performed By: #### 5 57-0 ####CALE Roth ([id number])[facility] ([facility])[address]68 [place] [address] Eosinophils (Bld) [#/Vol] 0.00 x10*3/uL Normal 0.00-0.70 [facility] Comment on above: Performed By: #### 5 57-0 ####CALE Roth ([id number])[facility] ([facility])[address]010 [place] [address] Eosinophils/100 WBC (Bld) 0.0 % Normal 0.0-6.0 [facility] Comment on above: Performed By: #### 5 57-0 ####CALE Roth ([id number])[facility] ([facility])[address] [place] [address] Lymphocytes (Bld) [#/Vol] 1.30 x10*3/uL Normal 1.20-4.80 [facility] Comment on above: Performed By: #### 5 57-0 ####CALE Roth (46091)[facility] ([facility])[address]390 [place] [address] Lymphocytes/100 WBC (Bld) 10.3 % Normal 13.0-44.0 [facility] Comment on above: Performed By: #### 5 57-0 ####CALE Roth ([id number])[facility] ([facility])[address]125 [place] [address] Metamyelocytes (Bld) [#/Vol] 0.00 x10*3/uL Normal 0.00-0.00 [facility] Comment on above: Performed By: #### 5 57-0 ####CALE Roth ([id number])[facility] ([facility])[address]284 [place] [address] Metamyelocytes/100 WBC (Bld) 0.0 % Normal 0.0-0.0 [facility] Comment on above: Performed By: #### 5 57-0 ####CALE Roth ([id number])[facility] ([facility])[address] [place] [address] Monocytes (Bld) [#/Vol] 0.54 x10*3/uL Normal 0.10-1.00 [facility] Comment on above: Performed By: #### 5 57-0 ####CALE Roth ([id number])[facility] ([facility])[address] [place] [address] Monocytes/100 WBC (Bld) 4.3 % Normal 2.0-10.0 [facility] Comment on above: Performed By: #### 5 57-0 ####CALE Roth ([id number])[facility] ([facility])[address] [place] [address] Myelocytes (Bld) [#/Vol] 0.00 x10*3/uL Normal 0.00-0.00 [facility] Comment on above: Performed By: #### 5 57-0 ####CALE Roth ([id number])[facility] ([facility])[address] [place] [address] Myelocytes/100 WBC (Bld) 0.0 % Normal 0.0-0.0 [facility] Comment on above: Performed By: #### 5 57-0 ####CALE Roth ([id number])[facility] ([facility])[address] [place] [address] Neutrophils (Bld) [#/Vol] 10.76 x10*3/uL High 1.20-7.70 [facility] Comment on above: Performed By: #### 5 57-0 ####CALE Roth ([id number])[facility] ([facility])[address] [place] [address] Nucleated RBC/100 WBC (Bld) [Ratio] 0.0 % Normal 0.0-0.0 [facility] Comment on above: Performed By: #### 5 57-0 ####CALE Roth ([id number])[facility] ([facility])[address] [place] [address] Ovalocytes LM Ql (Bld) Few Normal [facility] Comment on above: Performed By: #### 5 57-0 ####CALE Roth ([id number])[facility] ([facility])[address] [place] [address] Plasma cells (Bld) [#/Vol] 0.00 x10*3/uL Normal 0.00-0.00 [facility] Comment on above: Performed By: #### 5 57-0 ####CALE Roth ([id number])[facility] ([facility])[address] [place] [address] Plasma cells/100 WBC Manual cnt (Bld) 0.0 % Normal 0.00-0.00 [facility] Comment on above: Performed By: #### 5 57-0 ####CALE Roth ([id number])[facility] ([facility])[address]190 [place] [address] Promyelocytes (Bld) [#/Vol] 0.00 x10*3/uL Normal 0.00-0.00 [facility] Comment on above: Performed By: #### 5 57-0 ####CALE Roth ([id number])[facility] ([facility])[address] [place] [address] Promyelocytes/100 WBC (Bld) 0.0 % Normal 0.0-0.0 [facility] Comment on above: Performed By: #### 5 57-0 ####CALE Roth ([id number])[facility] ([facility])[address]34 [place] [address] RBC morphology finding Nom (Bld) See Below [facility] Comment on above: Performed By: #### 5 0957-0 ####CALE Roth (97050)[facility] ([facility])[address]802 [place] [address] Segmented neutrophils (Bld) [#/Vol] 9.89 x10*3/uL High 1.20-7.00 [facility] Comment on above: Performed By: #### 5 0957-0 ####CALE Roth ([id number])[facility] ([facility])[address]26 [place] [address] Segmented neutrophils/100 WBC (Bld) 78.5 % Normal 40.0-80.0 [facility] Comment on above: Result Comment: Perc ent differential counts (%) should be interpreted in the context of the absolute cell counts (cells/uL). Performed By: #### 5 0957-0 ####CALE Roth ([id number])[facility] ([facility])[address]25 [place] [address] Variant lymphocytes (Bld) [#/Vol] 0.00 x10*3/uL Normal 0.00-0.50 [facility] Comment on above: Performed By: #### 5 0957-0 ####CALE Roth ([id number])[facility] ([facility])[address]66 [place] [address] Variant lymphocytes/100 WBC (Bld) 0.0 % Normal 0.0-2.0 [facility] Comment on above: Performed By: #### 5 0957-0 ####CALE Roth (92986)[facility] ([facility])[address]205 [place] [address] WBC other Manual cnt (Bld) [#/Vol] 0.00 x10*3/uL Normal [facility] Comment on above: Performed By: #### 5 0957-0 ####CALE Roth ([id number])[facility] ([facility])[address]011 [place] [address] WBC other/100 WBC (Bld) 0.0 % Normal [facility] Comment on above: Performed By: #### 5 0957-0 ####CALE Roth ([id number])[facility] ([facility])[address]342 [place] [address] Parainfluenza virus RNA OJSE+ probe Ql (Upper resp)on 03-08-2025 Parainfluenza virus 1 RNA JOSE+probe Ql (Unsp spec) Not detected Normal Not Detected, Invalid [facility] Comment on above: Order Comment: This [...] Performed By: #### 9 1798-9 ####CALE Roth ([id number])[facility] ([facility])[address]70 [place] [address] Parainfluenza virus 2 RNA JOSE+probe Ql (Unsp spec) Not detected Normal Not Detected, Invalid [facility] Comment on above: Order Comment: This [...] Performed By: #### 9 1798-9 ####CALE Roth (89725)[facility] ([facility])[address]85 [place] [address] Parainfluenza virus 3 RNA JOSE+probe Ql (Unsp spec) Not detected Normal Not Detected, Invalid [facility] Comment on above: Order Comment: This [...] Performed By: #### 9 1798-9 ####CALE Roth (68157)[facility] ([facility])[address]32 [place] [address] Parainfluenza virus 4 RNA JOSE+probe Ql (Unsp spec) Not detected Normal Not Detected, Invalid [facility] Comment on above: Order Comment: This [...] Performed By: #### 9 1798-9 ####CALE Roth (99711)[facility] ([facility])[address]1939 [place] [address] Procalcitoninon 03-08-2025 Procalcitonin [Mass/Vol] 0.21 ng/mL High <=0.07 [facility] Comment on above: Order Comment: Proca [...] Performed By: #### 3 3959-8 ####CALE Roth ([id number])[facility] ([facility])[address]36 [place] [address] Proteinon 03-08-2025 Protein (CSF) [Mass/Vol] 61 mg/dL High 15-45 [facility] Comment on above: Performed By: #### 2 880-3 ####CALE Roth ([id number])[facility] ([facility])[address]79 [place] [address] Renal function 2000 panelon 03-08-2025 Albumin BCP dye [Mass/Vol] 3.9 g/dL Normal 3.4-5.0 [facility] Comment on above: Performed By: #### 2 4362-6 ####CALE Roth ([id number])[facility] ([facility])[address]237 [place] [address] Anion gap [Moles/Vol] 11 mmol/L Normal 10-20 [facility] Comment on above: Performed By: #### 2 4362-6 ####CALE Roth ([id number])[facility] ([facility])[address]388 [place] [address] Calcium [Mass/Vol] 9.2 mg/dL Normal 8.6-10.6 [facility] Comment on above: Performed By: #### 2 4362-6 ####CALE Roth ([id number])[facility] ([facility])[address]16 [place] [address] Chloride [Moles/Vol] 107 mmol/L Normal 98-107 [facility] Comment on above: Performed By: #### 2 4362-6 ####CALE Roth ([id number])[facility] ([facility])[address]82 [place] [address] CO2 [Moles/Vol] 27 mmol/L Normal 21-[address] [facility] Comment on above: Performed By: #### 2 4362-6 ####CALE Roth ([id number])[facility] ([facility])[address]102 [place] [address] Creatinine [Mass/Vol] 0.46 mg/dL Low 0.50-1.05 [facility] Comment on above: Performed By: #### 2 4362-6 ####CALE Roth ([id number])[facility] ([facility])[address]251 [place] [address] Glomerular filtration rate >90 Normal >60 [facility] Comment on above: Result Comment: Calc ulations of estimated GFR are performed using the 2020 CKD-EPI Study Refit equation without the race variable for the IDMS-Traceable creatinine methods.https://jasn.asnjournals.org/content/early//ASN .7070243461 Performed By: #### 2 4362-6 ####CALE Roth ([id number])[facility] ([facility])[address]69 [place] [address] Glucose [Mass/Vol] 151 mg/dL High 74-99 [facility] Comment on above: Performed By: #### 2 4362-6 ####CALE Roth (25786)[facility] ([facility])[address]40 [place] [address] Phosphate [Mass/Vol] 3.0 mg/dL Normal 2.5-4.9 [facility] Comment on above: Performed By: #### 2 4362-6 ####CALE Roth (59337)[facility] ([facility])[address]13 [place] [address] Potassium [Moles/Vol] 3.7 mmol/L Normal 3.5-5.3 [facility] Comment on above: Performed By: #### 2 4362-6 ####CALE Roth (50934)[facility] ([facility])[address]395 [place] [address] Urea nitrogen [Mass/Vol] 15 mg/dL Normal 6-23 [facility] Comment on above: Performed By: #### 2 4362-6 ####CALE Roth ([id number])[facility] ([facility])[address] [place] [address] Rhinovirus RNAon 03-08-2025 Rhinovirus RNA JOSE+probe Ql (Upper resp) Not detected Normal Not Detected [facility] Comment on above: Order Comment: This [...] Performed By: #### 9 1793-0 ####CALE Roth ([id number])[facility] ([facility])[address] [place] [address] Sodiumon 03-08-2025 Sodium [Moles/Vol] 143 mmol/L Normal 136-145 [facility] Comment on above: Performed By: #### 2 951-2 ####CALE Roth ([id number])[facility] ([facility])[address] [place] [address] Sodium [Moles/Vol] 141 mmol/L Normal 136-145 [facility] Comment on above: Performed By: #### 2 951-2 ####CALE Roth ([id number])[facility] ([facility])[address] [place] [address] 27[address] Sodium [Moles/Vol] 141 mmol/L Normal 136-145 [facility] Comment on above: Performed By: #### 2 951-2 ####CALE Roth ([id number])[facility] ([facility])[address] [place] [address] Performed By: #### 2 4362-6 ####CALE Roth ([id number])[facility] ([facility])[address] [place] [address] Staphylococcus aureus.methic illin resistant DNAon 03-08-2025 MRSA DNA JOSE+probe Ql (Nose) Staphylococcus aureus.methicillin resistant DNA Not Detected Normal Not Detected [facility] Comment on above: Order Comment: This [...] Performed By: #### 9 0001-9 ####CALE Roth ([id number])[facility] ([facility])[address] [place] [address] Triglycerideon 03-08-2025 Triglyceride [Mass/Vol] 81 mg/dL Normal 0-114 [facility] Comment on above: Order Comment: While [...] Performed By: #### 2 571-8 ####CALE Roth ([id number])[facility] ([facility])[address] [place], [place] [address] Urinalysis complete W Reflex Culture panel (U)on 03-08-2025 Appearance (U) Clear Normal Clear [facility] Comment on above: Performed By: #### 5 8077-9 ####CALE Roth ([id number])[facility] ([facility])[address]888 [place] [address] Bilirubin (U) [Mass/Vol] Negative Normal NEGATIVE [facility] Comment on above: Performed By: #### 5 8077-9 ####CALE Roth ([id number])[facility] ([facility])[address]79 [place] [address] Color (U) Light-Yellow Normal Light-Yello w, Yellow, Dark-Yellow [facility] Comment on above: Performed By: #### 5 8077-9 ####CALE Roth ([id number])[facility] ([facility])[address]00 [place] [address] Glucose Auto test strip (U) [Mass/Vol] Normal Normal Normal [facility] Comment on above: Performed By: #### 5 8077-9 ####CALE Roth ([id number])[facility] ([facility])[address]33 [place] [address] Ketones (U) [Mass/Vol] 40 (2+) Abnormal NEGATIVE [facility] Comment on above: Performed By: #### 5 8077-9 ####CALE Roth ([id number])[facility] ([facility])[address]77 [place] [address] Leukocyte esterase Auto test strip Ql (U) Negative Normal NEGATIVE [facility] Comment on above: Performed By: #### 5 8077-9 ####CALE Roth ([id number])[facility] ([facility])[address]17 [place] [address] Nitrite Auto test strip Ql (U) Negative Normal NEGATIVE [facility] Comment on above: Performed By: #### 5 8077-9 ####CALE Roth ([id number])[facility] ([facility])[address]79 [place] [address] pH (U) 7.0 [pH] Normal 5.0, 5.5, 6.0, 6.5, 7.0, 7.5, 8.0 [facility] Comment on above: Performed By: #### 5 8077-9 ####CALE Roth ([id number])[facility] ([facility])[address] [place] [address] Protein (U) [Mass/Vol] Negative Normal NEGATIVE, 10 (TRACE), 20 (TRACE) [facility] Comment on above: Performed By: #### 5 8077-9 ####CALE Roth ([id number])[facility] ([facility])[address] [place] [address] RBC (U) [#/Vol] Negative Normal NEGATIVE [facility] Comment on above: Performed By: #### 5 8077-9 ####CALE Roth ([id number])[facility] ([facility])[address] [place] [address] 31398 Specific gravity (U) [Rel density] 1.018 Normal 1.005-1.035 [facility] Comment on above: Performed By: #### 5 8077-9 ####CALE Roth ([id number])[facility] ([facility])[address] [place] [address] Urobilinogen (U) [Mass/Vol] Normal Normal Normal [facility] Comment on above: Performed By: #### 5 8077-9 ####CALE Roth ([id number])[facility] ([facility])[address] [place] [address] XR CHEST 1 VIEWon 03-08-2025 XR CHEST [address] [facility] CBC W Auto Differential pane l (Bld)on 03-07-2025 Basophils (Bld) [#/Vol] 0.01 x10*3/uL Normal 0.00-0.10 [facility] Comment on above: Performed By: #### 5 7021-8 ####CALE Roth ([id number])[facility] ([facility])[address] [place] [address]07[address] Basophils/100 WBC (Bld) 0.1 % Normal 0.0-2.0 [facility] Comment on above: Performed By: #### 5 7021-8 ####CALE Roth ([id number])[facility] ([facility])[address] [place] [address] Eosinophils (Bld) [#/Vol] 0.06 x10*3/uL Normal 0.00-0.70 [facility] Comment on above: Performed By: #### 5 7021-8 ####CALE Roth ([id number])[facility] ([facility])[address] [place] [address] Eosinophils/100 WBC (Bld) 0.7 % Normal 0.0-6.0 [facility] Comment on above: Performed By: #### 5 7021-8 ####CALE Roth ([id number])[facility] ([facility])[address] [place] [address]65 Erythrocyte distribution width (RBC) [Ratio] 12.1 % Normal 11.5-14.5 [facility] Comment on above: Performed By: #### 5 7021-8 ####CALE Roth ([id number])[facility] ([facility])[address] [place] [address] Hematocrit (Bld) [Volume fraction] 32.0 % Low 36.0-46.0 [facility] Comment on above: Performed By: #### 5 7021-8 ####CALE Roht ([id number])[facility] ([facility])[address] [place] [address] Hemoglobin (Bld) [Mass/Vol] 10.8 g/dL Low 12.0-16.0 [facility] Comment on above: Performed By: #### 5 7021-8 ####CALE Roth ([id number])[facility] ([facility])[address] [place] [address] 92457 Immature granulocytes (Bld) [#/Vol] 0.08 x10*3/uL Normal 0.00-0.70 [facility] Comment on above: Performed By: #### 5 7021-8 ####CALE Roth ([id number])[facility] ([facility])[address]53 [place] [address] Immature granulocytes/100 WBC (Bld) 1.0 % High 0.0-0.9 [facility] Comment on above: Result Comment: Aleisha ture Granulocyte Count (IG) includes promyelocytes, myelocytes and metamyelocytes but does not include bands. Percent differential counts (%) should be interpreted in the context of the absolute cell counts (cells/UL). Performed By: #### 5 7021-8 ####CALE Roth ([id number])[facility] ([facility])[address]86 [place] [address] Lymphocytes (Bld) [#/Vol] 1.03 x10*3/uL Low 1.20-4.80 [facility] Comment on above: Performed By: #### 5 7021-8 ####CALE Roth ([id number])[facility] ([facility])[address]505 [place] [address] Lymphocytes/100 WBC (Bld) 12.5 % Normal 13.0-44.0 [facility] Comment on above: Performed By: #### 5 7021-8 ####CALE Roth ([id number])[facility] ([facility])[address]23 [place] [address] MCH (RBC) [Entitic mass] 30.2 pg Normal 26.0-34.0 [facility] Comment on above: Performed By: #### 5 7021-8 ####CALE Roth ([id number])[facility] ([facility])[address]382 [place] [address] MCHC (RBC) [Mass/Vol] 33.8 g/dL Normal 32.0-36.0 [facility] Comment on above: Performed By: #### 5 7021-8 ####CALE Roth ([id number])[facility] ([facility])[address]188 [place] [address] MCV (RBC) [Entitic vol] 89 fL Normal 80-100 [facility] Comment on above: Performed By: #### 5 7021-8 ####CALE Roth (45842)[facility] ([facility])[address]84 [place] [address] Monocytes (Bld) [#/Vol] 0.54 x10*3/uL Normal 0.10-1.00 [facility] Comment on above: Performed By: #### 5 7021-8 ####CALE Roth ([id number])[facility] ([facility])[address]66 [place] [address] Monocytes/100 WBC (Bld) 6.6 % Normal 2.0-10.0 [facility] Comment on above: Performed By: #### 5 7021-8 ####CALE Roth ([id number])[facility] ([facility])[address]18 [place] [address] Neutrophils (Bld) [#/Vol] 6.51 x10*3/uL Normal 1.20-7.70 [facility] Comment on above: Result Comment: Perc ent differential counts (%) should be interpreted in the context of the absolute cell counts (cells/uL). Performed By: #### 5 7021-8 ####CALE Roth (58608)[facility] ([facility])[address] [place] [address] Neutrophils/100 WBC (Bld) 79.1 % Normal 40.0-80.0 [facility] Comment on above: Performed By: #### 5 7021-8 ####CALE Roth ([id number])[facility] ([facility])[address]957 [place] [address] Nucleated RBC/100 WBC (Bld) [Ratio] 0.0 /100 WBCs Normal 0.0-0.0 [facility] Comment on above: Performed By: #### 5 7021-8 ####CALE TOSCANOMOISAURA Roth ([id number])[facility] ([facility])[address] [place] [address] Platelets (Bld) [#/Vol] 144 x10*3/uL Low 150-450 [facility] Comment on above: Performed By: #### 5 7021-8 ####CALE Roth ([id number])[facility] ([facility])[address]95 [place] [address] RBC (Bld) [#/Vol] 3.58 x10*6/uL Low 4.00-5.20 [facility] Comment on above: Performed By: #### 5 7021-8 ####CALE Roth ([id number])[facility] ([facility])[address]243 [place] [address] WBC (Bld) [#/Vol] 8.2 x10*3/uL Normal 4.4-11.3 [facility] Comment on above: Performed By: #### 5 7021-8 ####CALE Roth ([id number])[facility] ([facility])[address] [place] [address] Calcium.ionizedon 03-07-2025 Calcium.ionized (Bld) [Moles/Vol] 1.21 mmol/L Normal 1.1-1.33 [facility] Comment on above: Result Comment: The performance characteristics of ionized calcium testedin heparinized plasma or serum have [facility] where [facility].Testing on heparinized plasma or serum is not approved bythe FDA; however, such approval is not necessary. Performed By: #### 1 994-3 ####CALE Roth ([id number])[facility] ([facility])[address]672 [place] [address] Glucose Test strip manual (B ld) [Mass/Vol]on 03-07-2025 Glucose [Mass/Vol] 132 mg/dL High 74-99 [facility] Comment on above: Performed By: #### 2 341-6 ####CALE Roth ([id number])[facility] ([facility])[address]323 [place] [address] Glucose [Mass/Vol] 93 mg/dL Normal 74-99 [facility] Comment on above: Performed By: #### 2 341-6 ####CALE Roth ([id number])[facility] ([facility])[address]444 [place] [address] Glucose [Mass/Vol] 102 mg/dL High 74-99 [facility] Comment on above: Performed By: #### 2 341-6 ####CALE Roth ([id number])[facility] ([facility])[address]12 [place] [address] Glucose [Mass/Vol] 100 mg/dL High 74-99 [facility] Comment on above: Performed By: #### 2 341-6 ####CALE Roth ([id number])[facility] ([facility])[address]81 [place] [address] Glucose [Mass/Vol] 108 mg/dL High 74-99 [facility] Comment on above: Performed By: #### 2 341-6 ####CALE Rtoh ([id number])[facility] ([facility])[address]16 [place] [address] Magnesiumon 03-07-2025 Magnesium [Mass/Vol] 2.09 mg/dL Normal 1.60-2.40 [facility] Comment on above: Performed By: #### 1 9123-9 ####CALE Roth ([id number])[facility] ([facility])[address]66 [place] [address] Renal function 2000 panelon 03-07-2025 Albumin BCP dye [Mass/Vol] 3.9 g/dL Normal 3.4-5.0 [facility] Comment on above: Performed By: #### 2 4362-6 ####CALE Roth ([id number])[facility] ([facility])[address] [place] [address] Anion gap [Moles/Vol] 14 mmol/L Normal 10-20 [facility] Comment on above: Performed By: #### 2 4362-6 ####CALE Roth ([id number])[facility] ([facility])[address] [place] [address] Calcium [Mass/Vol] 8.8 mg/dL Normal 8.6-10.6 [facility] Comment on above: Performed By: #### 2 4362-6 ####CALE Roth ([id number])[facility] ([facility])[address] [place] [address] Chloride [Moles/Vol] 109 mmol/L High 98-107 [facility] Comment on above: Performed By: #### 2 4362-6 ####CALE Roth ([id number])[facility] ([facility])[address] [place] [address] CO2 [Moles/Vol] 24 mmol/L Normal 21-[address] [facility] Comment on above: Performed By: #### 2 4362-6 ####CALE Roth ([id number])[facility] ([facility])[address] [place] [address] Creatinine [Mass/Vol] 0.44 mg/dL Low 0.50-1.05 [facility] Comment on above: Performed By: #### 2 4362-6 ####CALE CAI L ([id number])[facility] ([facility])[address] [place] [address] Glomerular filtration rate >90 Normal >60 [facility] Comment on above: Result Comment: Calc ulations of estimated GFR are performed using the 2020 CKD-EPI Study Refit equation without the race variable for the IDMS-Traceable creatinine methods.https://jasn.asnjournals.org/content/early/ASN .3797355749 Performed By: #### 2 4362-6 ####CALE CAI L ([id number])[facility] ([facility])[address] [place] [address] Glucose [Mass/Vol] 115 mg/dL High 74-99 [facility] Comment on above: Performed By: #### 2 4362-6 ####CALE Roth ([id number])[facility] ([facility])[address] [facility], [place] [id number] Phosphate [Mass/Vol] 2.6 mg/dL Normal 2.5-4.9 [facility] Comment on above: Performed By: #### 2 4362-6 ####CALE Roth ([id number])[facility] ([facility])[address] [place] [address] Potassium [Moles/Vol] 3.5 mmol/L Normal 3.5-5.3 [facility] Comment on above: Performed By: #### 2 4362-6 ####CALE Roth ([id number])[facility] ([facility])[address] [place] [address] Sodium [Moles/Vol] 143 mmol/L Normal 136-145 [facility] Comment on above: Performed By: #### 2 4362-6 ####CALE Roth ([id number])[facility] ([facility])[address] [place] [address] Urea nitrogen [Mass/Vol] 13 mg/dL Normal 6-23 [facility] Comment on above: Performed By: #### 2 4362-6 ####CALE Rtoh ([id number])[facility] ([facility])[address] [place] [address] Sodiumon 03-07-2025 Sodium [Moles/Vol] 140 mmol/L Normal 136-145 [facility] Comment on above: Performed By: #### 2 951-2 ####CALE CAI L ([id number])[facility] ([facility])[address] [place] [address] Sodium [Moles/Vol] 141 mmol/L Normal 136-145 [facility] Comment on above: Performed By: #### 2 951-2 ####CALE CAI L ([id number])[facility] ([facility])[address] [place] [address] Sodium [Moles/Vol] 141 mmol/L Normal 136-145 [facility] Comment on above: Performed By: #### 2 951-2 ####CALE Roth ([id number])[facility] ([facility])[address] [place] [address] Triglycerideon 03-07-2025 Triglyceride [Mass/Vol] 96 mg/dL Normal 0-114 [facility] Comment on above: Order Comment: While [...] Performed By: #### 2 571-8 ####CALE Roth ([id number])[facility] ([facility])[address] [place] [address] CBC W Auto Differential pane l (Bld)on 03-06-2025 Basophils (Bld) [#/Vol] 0.01 x10*3/uL Normal 0.00-0.10 [facility] Comment on above: Performed By: #### 5 7021-8 ####CALE Roth ([id number])[facility] ([facility])[address] [place] [address] Basophils/100 WBC (Bld) 0.1 % Normal 0.0-2.0 [facility] Comment on above: Performed By: #### 5 7021-8 ####CALE Roth ([id number])[facility] ([facility])[address] [place] [address] Eosinophils (Bld) [#/Vol] 0.02 x10*3/uL Normal 0.00-0.70 [facility] Comment on above: Performed By: #### 5 7021-8 ####CALE Roth ([id number])[facility] ([facility])[address] [place] [address] Eosinophils/100 WBC (Bld) 0.2 % Normal 0.0-6.0 [facility] Comment on above: Performed By: #### 5 7021-8 ####CALE Roth ([id number])[facility] ([facility])[address] [place] [address] Erythrocyte distribution width (RBC) [Ratio] 12.2 % Normal 11.5-14.5 [facility] Comment on above: Performed By: #### 5 7021-8 ####CALE Roth ([id number])[facility] ([facility])[address] [place] [address] Hematocrit (Bld) [Volume fraction] 33.2 % Low 36.0-46.0 [facility] Comment on above: Performed By: #### 5 7021-8 ####CALE Roth ([id number])[facility] ([facility])[address] [place] [address] Hemoglobin (Bld) [Mass/Vol] 11.3 g/dL Low 12.0-16.0 [facility] Comment on above: Performed By: #### 5 7021-8 ####CALE Roth ([id number])[facility] ([facility])[address] [place] [address] Immature granulocytes (Bld) [#/Vol] 0.05 x10*3/uL Normal 0.00-0.70 [facility] Comment on above: Performed By: #### 5 7021-8 ####CALE Roth ([id number])[facility] ([facility])[address] [place] [address] Immature granulocytes/100 WBC (Bld) 0.5 % Normal 0.0-0.9 [facility] Comment on above: Result Comment: Aleisha ture Granulocyte Count (IG) includes promyelocytes, myelocytes and metamyelocytes but does not include bands. Percent differential counts (%) should be interpreted in the context of the absolute cell counts (cells/UL). Performed By: #### 5 7021-8 ####CALE Roth ([id number])[facility] ([facility])[address] [place] [address] Lymphocytes (Bld) [#/Vol] 1.18 x10*3/uL Low 1.20-4.80 [facility] Comment on above: Performed By: #### 5 7021-8 ####CALE Roth ([id number])[facility] ([facility])[address]36 [place] [address] Lymphocytes/100 WBC (Bld) 11.7 % Normal 13.0-44.0 [facility] Comment on above: Performed By: #### 5 7021-8 ####CALE Roth ([id number])[facility] ([facility])[address] [place] [address] MCH (RBC) [Entitic mass] 30.0 pg Normal 26.0-34.0 [facility] Comment on above: Performed By: #### 5 7021-8 ####CALE Roth (03976)[facility] ([facility])[address]60 [place] [address] MCHC (RBC) [Mass/Vol] 34.0 g/dL Normal 32.0-36.0 [facility] Comment on above: Performed By: #### 5 7021-8 ####CALE TOSCANOMOISAURA L ([id number])[facility] ([facility])[address]318 [place] [address] MCV (RBC) [Entitic vol] 88 fL Normal 80-100 [facility] Comment on above: Performed By: #### 5 7021-8 ####CALE Roth ([id number])[facility] ([facility])[address]240 [place] [address] Monocytes (Bld) [#/Vol] 0.73 x10*3/uL Normal 0.10-1.00 [facility] Comment on above: Performed By: #### 5 7021-8 ####CALE Roth ([id number])[facility] ([facility])[address]60 [place] [address] Monocytes/100 WBC (Bld) 7.2 % Normal 2.0-10.0 [facility] Comment on above: Performed By: #### 5 7021-8 ####CALE CAI L ([id number])[facility] ([facility])[address]1958 [place] [address] Neutrophils (Bld) [#/Vol] 8.08 x10*3/uL High 1.20-7.70 [facility] Comment on above: Result Comment: Perc ent differential counts (%) should be interpreted in the context of the absolute cell counts (cells/uL). Performed By: #### 5 7021-8 ####CALE CAI L ([id number])[facility] ([facility])[address]375 [place] [address] Neutrophils/100 WBC (Bld) 80.3 % Normal 40.0-80.0 [facility] Comment on above: Performed By: #### 5 7021-8 ####CALE CAI L ([id number])[facility] ([facility])[address] [place] [address] Nucleated RBC/100 WBC (Bld) [Ratio] 0.0 /100 WBCs Normal 0.0-0.0 [facility] Comment on above: Performed By: #### 5 7021-8 ####CALE CAI L ([id number])[facility] ([facility])[address] [place] [address] Platelets (Bld) [#/Vol] 164 x10*3/uL Normal 150-450 [facility] Comment on above: Performed By: #### 5 7021-8 ####CALE Roth ([id number])[facility] ([facility])[address]324 [place] [address] RBC (Bld) [#/Vol] 3.77 x10*6/uL Low 4.00-5.20 [facility] Comment on above: Performed By: #### 5 7021-8 ####CALE Roth ([id number])[facility] ([facility])[address]38 [place] [address] WBC (Bld) [#/Vol] 10.1 x10*3/uL Normal 4.4-11.3 [facility] Comment on above: Performed By: #### 5 7021-8 ####CALE Roth ([id number])[facility] ([facility])[address] [place] [address] CT ANGIO CHEST FOR PULMONARY EMBOLISMon 03-06-2025 CT ANGIO CHEST FOR PULMONARY EMBOLISM Normal [facility] CT HEAD WO IV CONTRASTon CT HEAD WO IV CONTRAST Normal [facility] Calcium.ionizedon 03-06-2025 Calcium.ionized (Bld) [Moles/Vol] 1.19 mmol/L Normal 1.1-1.33 [facility] Comment on above: Result Comment: The performance characteristics of ionized calcium testedin heparinized plasma or serum have been [facility].Testing on heparinized plasma or serum is not approved bythe FDA; however, such approval is not necessary. Performed By: #### 1 994-3 ####CALE Roth ([id number])[facility] ([facility])[address] [place] [address] ECG 12-LEADon 03-06-2025 ECG 12-LEAD Ventricular Rate 95 Atrial Rate 95 P-R Interval 162 QRS Duration 80 Q-T Interval 352 QTC Calculation(Bazett) 442 P [place] 81 R [place] 91 T [place] 80 QRS Count 16 Q Onset 219 P Onset 138 P Offset 190 T Offset 395 QTC Fredericia 410 Diagnosis Normal sinus rhythm Rightward axis Borderline ECG When compared with ECG of 06-MAR-2025 05:43, No significant change was found Confirmed by Erasmo Peña ([id number]) on 03/10/2025 12:34:21 PM Normal [facility] Gas and Carbon monoxide and Electrolytes panel (BldA)on 03-06-2025 Anion gap 4 (BldA) [Moles/Vol] 10 mmo/L Normal 10-25 [facility] Comment on above: Performed By: #### 9 3685-6 ####CALE Roth ([id number])[facility] ([facility])[address]64 [place] [address] Base excess Calc (Bld) [Moles/Vol] -1.8000 mmol/L Normal -2.0-3.0 [facility] Comment on above: Performed By: #### 9 3685-6 ####CALE Roth ([id number])[facility] ([facility])[address]10 [place] [address] Calcium.ionized (BldA) [Moles/Vol] 1.14 mmol/L Normal 1.10-1.33 [facility] Comment on above: Performed By: #### 9 3685-6 ####CALE Roth ([id number])[facility] ([facility])[address]45 [place] [address] Chloride (BldA) [Moles/Vol] 115 mmol/L High 98-107 [facility] Comment on above: Performed By: #### 9 3685-6 ####CALE Roth (13959)[facility] ([facility])[address]58 [place] [address] CO2 (Bld) [Partial pressure] 39 mm Hg Normal 38-42 [facility] Comment on above: Performed By: #### 9 3685-6 ####CALE Roth ([id number])[facility] ([facility])[address]89 [place] [address] Glucose [Mass/Vol] 113 mg/dL High 74-99 [facility] Comment on above: Performed By: #### 9 3685-6 ####CALE Roth ([id number])[facility] ([facility])[address]33 [place] [address] HCO3 (Bld) [Moles/Vol] 23.1 mmol/L Normal 22.0-26.0 [facility] Comment on above: Performed By: #### 9 3685-6 ####CALE Roth ([id number])[facility] ([facility])[address]357 [place] [address] Hematocrit Est (Bld) [Volume fraction] 33.0 % Low 36.0-46.0 [facility] Comment on above: Performed By: #### 9 3685-6 ####CALE Roth ([id number])[facility] ([facility])[address] [place] [address] Hemoglobin (Bld) [Mass/Vol] 10.9 g/dL Low 12.0-16.0 [facility] Comment on above: Performed By: #### 9 3685-6 ####CALE Roth ([id number])[facility] ([facility])[address] [place] [address]80 Inhaled oxygen concentration 50 % Normal [facility] Comment on above: Performed By: #### 9 3685-6 ####CALE Roth ([id number])[facility] ([facility])[address] [place] [address] Lactate (BldA) [Moles/Vol] 0.5 mmol/L Normal 0.4-2.0 [facility] Comment on above: Performed By: #### 9 3685-6 ####CALE Roth ([id number])[facility] ([facility])[address]855 [place] [address] Oxygen (Bld) [Partial pressure] 119 mm Hg High 85-95 [facility] Comment on above: Performed By: #### 9 3685-6 ####CALE Roth ([id number])[facility] ([facility])[address]46 [place] [address] Oxyhemoglobin (BldA) [Mass fraction] 98.0 % Normal 94.0-98.0 [facility] Comment on above: Performed By: #### 9 3685-6 ####CALE Roth ([id number])[facility] ([facility])[address] [place] [address] pH (Bld) 7.38 [pH] Normal 7.38-7.42 [facility] Comment on above: Performed By: #### 9 3685-6 ####CALE Roth ([id number])[facility] ([facility])[address] [place] [address] Potassium (BldA) [Moles/Vol] 3.6 mmol/L Normal 3.5-5.3 [facility] Comment on above: Performed By: #### 9 5925-6 ####CALE Roth ([id number])[facility] ([facility])[address] [place] [address] Sodium (BldA) [Moles/Vol] 144 mmol/L Normal 136-145 [facility] Comment on above: Performed By: #### 9 4725-6 ####CALE Roth ([id number])[facility] ([facility])[address] [place] [address] Anion gap 4 (BldA) [Moles/Vol] 12 mmo/L Normal 10-25 [facility] Comment on above: Performed By: #### 9 6285-6 ####CALE Roth ([id number])[facility] ([facility])[address] [place] [address] Base excess Calc (Bld) [Moles/Vol] -0.9000 mmol/L Normal -2.0-3.0 [facility] Comment on above: Performed By: #### 9 2882-6 ####CALE Roth (97590)[facility] ([facility])[address] [place] [address] Calcium.ionized (BldA) [Moles/Vol] 1.18 mmol/L Normal 1.10-1.33 [facility] Comment on above: Performed By: #### 9 3685-6 ####CALE Roth (77586)[facility] ([facility])[address]199 [place] [address] Chloride (BldA) [Moles/Vol] 114 mmol/L High 98-107 [facility] Comment on above: Performed By: #### 9 3685-6 ####CALE CAI L (34899)[facility] ([facility])[address]18 [place] [address] CO2 (Bld) [Partial pressure] 37 mm Hg Low 38-42 [facility] Comment on above: Performed By: #### 9 3685-6 ####CALE Roth (10655)[facility] ([facility])[address] [place] [address]39[address] Glucose [Mass/Vol] 118 mg/dL High 74-99 [facility] Comment on above: Performed By: #### 9 3565-6 ####CALE Roth ([id number])[facility] ([facility])[address]957 [place] [address] HCO3 (Bld) [Moles/Vol] 23.5 mmol/L Normal 22.0-26.0 [facility] Comment on above: Performed By: #### 9 3685-6 ####CALE Roth ([id number])[facility] ([facility])[address] [place] [address] Hematocrit Est (Bld) [Volume fraction] 35.0 % Low 36.0-46.0 [facility] Comment on above: Performed By: #### 9 3685-6 ####CALE CAI L ([id number])[facility] ([facility])[address] [place] [address] Hemoglobin (Bld) [Mass/Vol] 11.7 g/dL Low 12.0-16.0 [facility] Comment on above: Performed By: #### 9 2855-6 ####CALE Roth ([id number])[facility] ([facility])[address]68 [place] [address] Inhaled oxygen concentration 30 % Normal [facility] Comment on above: Performed By: #### 9 3685-6 ####CALE Roth ([id number])[facility] ([facility])38197 [place] [address] Lactate (BldA) [Moles/Vol] 0.6 mmol/L Normal 0.4-2.0 [facility] Comment on above: Performed By: #### 9 3685-6 ####CALE Roth ([id number])[facility] ([facility])[address]3842 [place] [address] Oxygen (Bld) [Partial pressure] 67 mm Hg Low 85-95 [facility] Comment on above: Performed By: #### 9 3685-6 ####CALE Roth (85045)[facility] ([facility])[address] [place] [address] 79649 Oxyhemoglobin (BldA) [Mass fraction] 93.6 % Low 94.0-98.0 [facility] Comment on above: Performed By: #### 9 7385-6 ####CALE Roth (78366)[facility] ([facility])[address] [place] [address] 51832 pH (Bld) 7.41 [pH] Normal 7.38-7.42 [facility] Comment on above: Performed By: #### 9 4145-6 ####CALE Roth (10594)[facility] ([facility])[address] [place] [address]38 Potassium (BldA) [Moles/Vol] 4.1 mmol/L Normal 3.5-5.3 [facility] Comment on above: Performed By: #### 9 4595-6 ####CALE Roth (09471)[facility] ([facility])[address] [place] [address] 39147 Sodium (BldA) [Moles/Vol] 145 mmol/L Normal 136-145 [facility] Comment on above: Performed By: #### 9 3685-6 ####CALE Roth ([id number])[facility] ([facility])[address]410 [place] [address] Anion gap 4 (BldA) [Moles/Vol] 10 mmo/L Normal 10-25 [facility] Comment on above: Performed By: #### 9 3685-6 ####CALE CAI L ([id number])[facility] ([facility])[address]6895 [place] [address] Base excess Calc (Bld) [Moles/Vol] -0.9000 mmol/L Normal -2.0-3.0 [facility] Comment on above: Performed By: #### 9 3685-6 ####CALE Roth (47062)[facility] ([facility])[address]80 [place] [address] Calcium.ionized (BldA) [Moles/Vol] 1.16 mmol/L Normal 1.10-1.33 [facility] Comment on above: Performed By: #### 9 3685-6 ####CALE CAI L (58920)[facility] ([facility])[address]79 [place] [address] Chloride (BldA) [Moles/Vol] 115 mmol/L High 98-107 [facility] Comment on above: Performed By: #### 9 3685-6 ####CALE CAI L (49613)[facility] ([facility])[address]406 [place] [address] CO2 (Bld) [Partial pressure] 37 mm Hg Low 38-42 [facility] Comment on above: Performed By: #### 9 3685-6 ####CALE CAI L (79561)[facility] ([facility])[address]6947 [place] [address] Glucose [Mass/Vol] 117 mg/dL High 74-99 [facility] Comment on above: Performed By: #### 9 3685-6 ####CALE CAI L (76024)[facility] ([facility])[address]3908 [place] [address] HCO3 (Bld) [Moles/Vol] 23.5 mmol/L Normal 22.0-26.0 [facility] Comment on above: Performed By: #### 9 3685-6 ####CALE Roth (36519)[facility] ([facility])[address] [place] [address]1636 Hematocrit Est (Bld) [Volume fraction] 35.0 % Low 36.0-46.0 [facility] Comment on above: Performed By: #### 9 3685-6 ####CALE Roth ([id number])[facility] ([facility])[address] [place] [address] 68723 Hemoglobin (Bld) [Mass/Vol] 11.8 g/dL Low 12.0-16.0 [facility] Comment on above: Performed By: #### 9 6335-6 ####CALE Roth ([id number])[facility] ([facility])[address] [place] [address] 18687 Inhaled oxygen concentration 60 % Normal [facility] Comment on above: Performed By: #### 9 5615-6 ####CALE Roth (85985)[facility] ([facility])[address] [place] [address] 92113 Lactate (BldA) [Moles/Vol] 0.6 mmol/L Normal 0.4-2.0 [facility] Comment on above: Performed By: #### 9 3685-6 ####CALE Roth ([id number])[facility] ([facility])[address] [place] [address] 63059 Oxygen (Bld) [Partial pressure] 94 mm Hg Normal 85-95 [facility] Comment on above: Performed By: #### 9 3685-6 ####CALE Roth ([id number])[facility] ([facility])[address] [place] [address] 31496 Oxyhemoglobin (BldA) [Mass fraction] 96.6 % Normal 94.0-98.0 [facility] Comment on above: Performed By: #### 9 3685-6 ####ACLE Roth ([id number])[facility] ([facility])[address] [place] [address] 76785 pH (Bld) 7.41 [pH] Normal 7.38-7.42 [facility] Comment on above: Performed By: #### 9 3685-6 ####CALE Roth ([id number])[facility] ([facility])[address] [place] [address] 16046 Potassium (BldA) [Moles/Vol] 3.9 mmol/L Normal 3.5-5.3 [facility] Comment on above: Performed By: #### 9 3685-6 ####CALE Roth ([id number])[facility] ([facility])[address] [place] [address] 18022 Sodium (BldA) [Moles/Vol] 145 mmol/L Normal 136-145 [facility] Comment on above: Performed By: #### 9 3685-6 ####CALE Roth ([id number])[facility] ([facility])[address] [place] [address] 90362 Anion gap 4 (BldA) [Moles/Vol] 11 mmo/L Normal 10-25 [facility] Comment on above: Performed By: #### 9 3685-6 ####CALE Roth (12725)[facility] ([facility])[address] [place] [address] 03035 Base excess Calc (Bld) [Moles/Vol] -1.2000 mmol/L Normal -2.0-3.0 [facility] Comment on above: Performed By: #### 9 3685-6 ####CALE Roth ([id number])[facility] ([facility])[address] [place] [address] 19064 Calcium.ionized (BldA) [Moles/Vol] 1.15 mmol/L Normal 1.10-1.33 [facility] Comment on above: Performed By: #### 9 3685-6 ####CALE Roth ([id number])[facility] ([facility])[address]79 [place] [address] Chloride (BldA) [Moles/Vol] 115 mmol/L High 98-107 [facility] Comment on above: Performed By: #### 9 3685-6 ####CALE CAI L ([id number])[facility] ([facility])28078 [place] [address] CO2 (Bld) [Partial pressure] 34 mm Hg Low 38-42 [facility] Comment on above: Performed By: #### 9 3685-6 ####CALE Roth ([id number])[facility] ([facility])[address] [place] [address] 21943 Glucose [Mass/Vol] 117 mg/dL High 74-99 [facility] Comment on above: Performed By: #### 9 3685-6 ####CALE CAI L ([id number])[facility] ([facility])[address] [place] [address] 42904 HCO3 (Bld) [Moles/Vol] 22.6 mmol/L Normal 22.0-26.0 [facility] Comment on above: Performed By: #### 9 3685-6 ####CALE CAI L ([id number])[facility] ([facility])[address] [place] [address] 09039 Hematocrit Est (Bld) [Volume fraction] 36.0 % Normal 36.0-46.0 [facility] Comment on above: Performed By: #### 9 3685-6 ####CALE CAI L ([id number])[facility] ([facility])[address] [place] [address] Hemoglobin (Bld) [Mass/Vol] 11.9 g/dL Low 12.0-16.0 [facility] Comment on above: Performed By: #### 9 3685-6 ####CALE CAI L ([id number])[facility] ([facility])[id number] [place] [address]347 Inhaled oxygen concentration 50 % Normal [facility] Comment on above: Performed By: #### 9 3685-6 ####CALE Roth ([id number])[facility] ([facility])[address] [place] [address] Lactate (BldA) [Moles/Vol] 0.6 mmol/L Normal 0.4-2.0 [facility] Comment on above: Performed By: #### 9 3685-6 ####CALE Roth ([id number])[facility] ([facility])[id number] [place] [address] 39572 Oxygen (Bld) [Partial pressure] 72 mm Hg Low 85-95 [facility] Comment on above: Performed By: #### 9 3685-6 ####CALE Roth ([id number])[facility] ([facility])[id number] [place] [address] 11079 Oxyhemoglobin (BldA) [Mass fraction] 94.7 % Normal 94.0-98.0 [facility] Comment on above: Performed By: #### 9 3685-6 ####CALE Roth ([id number])[facility] ([facility])[id number] [place] [address] 02885 pH (Bld) 7.43 [pH] High 7.38-7.42 [facility] Comment on above: Performed By: #### 9 3685-6 ####CALE Roth ([id number])[facility] ([facility])[id number] [place] [address] 82095 Potassium (BldA) [Moles/Vol] 3.8 mmol/L Normal 3.5-5.3 [facility] Comment on above: Performed By: #### 9 3685-6 ####CALE Roth ([id number])[facility] ([facility])[id number] [place] [address] 44045 Sodium (BldA) [Moles/Vol] 145 mmol/L Normal 136-145 [facility] Comment on above: Performed By: #### 9 3815-6 ####CALE Roth ([id number])[facility] ([facility])[address] [facility] [place] [address] Glucose Test strip manual (B ld) [Mass/Vol]on 03-06-2025 Glucose [Mass/Vol] 97 mg/dL Normal 74-99 [facility] Comment on above: Performed By: #### 2 341-6 ####CALE Roth ([id number])[facility] ([facility])[address] [place] [address] Glucose [Mass/Vol] 91 mg/dL Normal 74-99 [facility] Comment on above: Performed By: #### 2 341-6 ####CALE Roth ([id number])[facility] ([facility])[address] [place] [address] Glucose [Mass/Vol] 98 mg/dL Normal 74-99 [facility] Comment on above: Performed By: #### 2 341-6 ####CALE Roth ([id number])[facility] ([facility])[address] [place] [address] Glucose [Mass/Vol] 103 mg/dL High 74-99 [facility] Comment on above: Performed By: #### 2 341-6 ####CALE Roth ([id number])[facility] ([facility])[address] [facility] [place] [address] Glucose [Mass/Vol] 97 mg/dL Normal 74-99 [facility] Comment on above: Performed By: #### 2 341-6 ####CALE Roth ([id number])[facility] ([facility])[address]26 [place] [address] Glucose [Mass/Vol] 102 mg/dL High 74-99 [facility] Comment on above: Performed By: #### 2 341-6 ####CALE Roth ([id number])[facility] ([facility])[address]28 [facility] [place] [address] Magnesiumon 03-06-2025 Magnesium [Mass/Vol] 2.28 mg/dL Normal 1.60-2.40 [facility] Comment on above: Performed By: #### 1 9123-9 ####CALE Roth ([id number])[facility] ([facility])[address]188 [place] [address] Natriuretic peptide B [Mass/ Vol]on 03-06-2025 Natriuretic peptide B (Bld) [Mass/Vol] 56 pg/mL Normal 0-99 [facility] Comment on above: Order Comment: <100 pg/mL - Heart failure [id number] pg/mL - Intermediate probability of acute heart [...] Performed By: #### 3 0934-4 ####CALE Roth ([id number])[facility] ([facility])[address]208 [place] [address] Renal function 2000 panelon 03-06-2025 Albumin BCP dye [Mass/Vol] 4.1 g/dL Normal 3.4-5.0 [facility] Comment on above: Performed By: #### 2 4362-6 ####CALE Roth ([id number])[facility] ([facility])[address]234 [place] [address] Anion gap [Moles/Vol] 11 mmol/L Normal 10-20 [facility] Comment on above: Performed By: #### 2 4362-6 ####CALE Roth ([id number])[facility] ([facility])[address] [place] [address] Calcium [Mass/Vol] 9.0 mg/dL Normal 8.6-10.6 [facility] Comment on above: Performed By: #### 2 4362-6 ####CALE Roth ([id number])[facility] ([facility])[address] [place] [address] Chloride [Moles/Vol] 114 mmol/L High 98-107 [facility] Comment on above: Performed By: #### 2 4362-6 ####CALE Roth ([id number])[facility] ([facility])[address] [place] [address] CO2 [Moles/Vol] 24 mmol/L Normal 21-[address] [facility] Comment on above: Performed By: #### 2 4362-6 ####CALE Roth ([id number])[facility] ([facility])[address]23 [place] [address] Creatinine [Mass/Vol] 0.47 mg/dL Low 0.50-1.05 [facility] Comment on above: Performed By: #### 2 4362-6 ####CALE Roth ([id number])[facility] ([facility])[address]48 [place] [address] Glomerular filtration rate >90 Normal >60 [facility] Comment on above: Result Comment: Calc ulations of estimated GFR are performed using the 2020 CKD-EPI Study Refit equation without the race variable for the IDMS-Traceable creatinine methods.https://jasn.asnjournals.org/content//ASN .4784022068 Performed By: #### 2 4362-6 ####CALE Roth ([id number])[facility] ([facility])[address]39 [place] [address] Glucose [Mass/Vol] 131 mg/dL High 74-99 [facility] Comment on above: Performed By: #### 2 4362-6 ####CALE Roth ([id number])[facility] ([facility])07656 [place] [address] Phosphate [Mass/Vol] 1.8 mg/dL Low 2.5-4.9 [facility] Comment on above: Performed By: #### 2 4362-6 ####CALE Roth ([id number])[facility] ([facility])[address]79 [place] [address] Potassium [Moles/Vol] 3.3 mmol/L Low 3.5-5.3 [facility] Comment on above: Performed By: #### 2 4362-6 ####CALE Roth ([id number])[facility] ([facility])[address]451 [place] [address] Urea nitrogen [Mass/Vol] 11 mg/dL Normal 6-23 [facility] Comment on above: Performed By: #### 2 4362-6 ####CALE Roth ([id number])[facility] ([facility])[address]65 [place] [address] Sodiumon 03-06-2025 Sodium [Moles/Vol] 145 mmol/L Normal 136-145 [facility] Comment on above: Performed By: #### 2 951-2 ####CALE Roth ([id number])[facility] ([facility])[address]49 [place] [address] Sodium [Moles/Vol] 144 mmol/L Normal 136-145 [facility] Comment on above: Performed By: #### 2 951-2 ####CALE Roth ([id number])[facility] ([facility])[address]16 [place] [address] Sodium [Moles/Vol] 146 mmol/L High 136-145 [facility] Comment on above: Performed By: #### 2 951-2 ####CALE Roth ([id number])[facility] ([facility])[address]245 [place] [address] Performed By: #### 2 4362-6 ####CALE CAI L ([id number])[facility] ([facility])[address]591 [place] [address] Triglycerideon 03-06-2025 Triglyceride [Mass/Vol] 114 mg/dL Normal 0-114 [facility] Comment on above: Order Comment: While [...] Performed By: #### 2 571-8 ####CALE Roth ([id number])[facility] ([facility])[address]808 [place] [address] Troponin I.cardiac panelon 0 03-06-2025 Tropinin I.cardiac panel High sensitivity method <3 Normal 0-34 [facility] Comment on above: Order Comment: Less [...] is performed using a differenttesting methodology at [facility] than at [facility]. Direct result comparisons should onlybe made within the same method. Performed By: #### 8 9577-1 ####CALE Roth ([id number])[facility] ([facility])[address]42 [place] [address] XR CHEST 1 VIEWon 03-06-2025 XR CHEST [address] [facility] CBC W Auto Differential pane l (Bld)on 03-05-2025 Basophils (Bld) [#/Vol] 0.01 x10*3/uL Normal 0.00-0.10 [facility] Comment on above: Performed By: #### 5 7021-8 ####CALE Roth ([id number])[facility] ([facility])50462 [place] [address] Basophils/100 WBC (Bld) 0.1 % Normal 0.0-2.0 [facility] Comment on above: Performed By: #### 5 7021-8 ####CALE Roth ([id number])[facility] ([facility])[address] [place] [address] Eosinophils (Bld) [#/Vol] 0.00 x10*3/uL Normal 0.00-0.70 [facility] Comment on above: Performed By: #### 5 7021-8 ####CALE Roth ([id number])[facility] ([facility])[address]29 [place] [address] Eosinophils/100 WBC (Bld) 0.0 % Normal 0.0-6.0 [facility] Comment on above: Performed By: #### 5 7021-8 ####CALE Roth ([id number])[facility] ([facility])[address]138 [place] [address] Erythrocyte distribution width (RBC) [Ratio] 11.9 % Normal 11.5-14.5 [facility] Comment on above: Performed By: #### 5 7021-8 ####CALE CAI L (85334)[facility] ([facility])78353 [place] [address] Hematocrit (Bld) [Volume fraction] 36.5 % Normal 36.0-46.0 [facility] Comment on above: Performed By: #### 5 7021-8 ####CALE CAI L ([id number])[facility] ([facility])[address]25 [place] [address] Hemoglobin (Bld) [Mass/Vol] 12.4 g/dL Normal 12.0-16.0 [facility] Comment on above: Performed By: #### 5 7021-8 ####CALE Roth ([id number])[facility] ([facility])16195 [place] [address] Immature granulocytes (Bld) [#/Vol] 0.08 x10*3/uL Normal 0.00-0.70 [facility] Comment on above: Performed By: #### 5 7021-8 ####CALE Roth ([id number])[facility] ([facility])68738 [place] [address] Immature granulocytes/100 WBC (Bld) 0.6 % Normal 0.0-0.9 [facility] Comment on above: Result Comment: Aleisha ture Granulocyte Count (IG) includes promyelocytes, myelocytes and metamyelocytes but does not include bands. Percent differential counts (%) should be interpreted in the context of the absolute cell counts (cells/UL). Performed By: #### 5 7021-8 ####CALE Roth ([id number])[facility] ([facility])40707 [place] [address] Lymphocytes (Bld) [#/Vol] 0.63 x10*3/uL Low 1.20-4.80 [facility] Comment on above: Performed By: #### 5 7021-8 ####CALE Roth ([id number])[facility] ([facility])[address]1680 [place] [address] Lymphocytes/100 WBC (Bld) 5.1 % Normal 13.0-44.0 [facility] Comment on above: Performed By: #### 5 7021-8 ####CALE Roth ([id number])[facility] ([facility])[address]3940 [place] [address] MCH (RBC) [Entitic mass] 29.9 pg Normal 26.0-34.0 [facility] Comment on above: Performed By: #### 5 7021-8 ####CALE Roth ([id number])[facility] ([facility])[address]32 [place] [address] MCHC (RBC) [Mass/Vol] 34.0 g/dL Normal 32.0-36.0 [facility] Comment on above: Performed By: #### 5 7021-8 ####CALE Roth ([id number])[facility] ([facility])[address]80 [place] [address] MCV (RBC) [Entitic vol] 88 fL Normal 80-100 [facility] Comment on above: Performed By: #### 5 7021-8 ####CALE Roth ([id number])[facility] ([facility])32187 [place] [address] Monocytes (Bld) [#/Vol] 0.99 x10*3/uL Normal 0.10-1.00 [facility] Comment on above: Performed By: #### 5 7021-8 ####CALE Roth ([id number])[facility] ([facility])97365 [place] [address] Monocytes/100 WBC (Bld) 8.0 % Normal 2.0-10.0 [facility] Comment on above: Performed By: #### 5 7021-8 ####CALE Roth ([id number])[facility] ([facility])[address]771 [place] [address] Neutrophils (Bld) [#/Vol] 10.74 x10*3/uL High 1.20-7.70 [facility] Comment on above: Result Comment: Perc ent differential counts (%) should be interpreted in the context of the absolute cell counts (cells/uL). Performed By: #### 5 7021-8 ####CALE Roth ([id number])[facility] ([facility])[address]197 [place] [address] Neutrophils/100 WBC (Bld) 86.2 % Normal 40.0-80.0 [facility] Comment on above: Performed By: #### 5 7021-8 ####CALE Roth ([id number])[facility] ([facility])14860 [place] [address] Nucleated RBC/100 WBC (Bld) [Ratio] 0.0 /100 WBCs Normal 0.0-0.0 [facility] Comment on above: Performed By: #### 5 7021-8 ####CALE CAI L ([id number])[facility] ([facility])[address] [place] [address] Platelets (Bld) [#/Vol] 173 x10*3/uL Normal 150-450 [facility] Comment on above: Performed By: #### 5 7021-8 ####CALE Roth ([id number])[facility] ([facility])[address] [place] [address] RBC (Bld) [#/Vol] 4.15 x10*6/uL Normal 4.00-5.20 [facility] Comment on above: Performed By: #### 5 7021-8 ####CALE Roth ([id number])[facility] ([facility])[address] [place] [address] WBC (Bld) [#/Vol] 12.5 x10*3/uL High 4.4-11.3 [facility] Comment on above: Performed By: #### 5 7021-8 ####CALE Roth ([id number])[facility] ([facility])[address] [place] [address] HEAD WO IV CONTRASTon CT HEAD WO IV CONTRAST Normal [facility] Calcium.ionizedon 03-05-2025 Calcium.ionized (Bld) [Moles/Vol] 1.12 mmol/L Normal 1.1-1.33 [facility] Comment on above: Result Comment: The performance characteristics of ionized calcium testedin heparinized plasma or serum have been [facility] where [facility].Testing on heparinized plasma or serum is not [facility]; however, such approval is not necessary. 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 [address] [id number] 03/03/2025 Patient: KIMANI COHEN Sex: Female : [...] Prachi Kian, R.N. Scanned 1 of 2 Trim Operator - KIMANI COHEN, : 2000, , Medication Ordered Medication Administration Date/Time DiphenhydrAMINE 13:51 03/03 DiphenhydrAMINE (Benadryl) IVP 25 mg given via Given (Benadryl) IVP 25 Site# 1. Medication Wastage: 25 mg wasted. - 13:54 Prachi 13:51 03/03/2025 mg (NOW x1) Michael Langston R.N. Scanned 2 of 2 Normal [facility] ED NURSES CLINICAL NOTEon ED NURSES CLINICAL NOTE Nurse Narrative - KIMANI COHEN, : 2000, , Nurse Clinical Narrative [address] [place] [address] [id number] 03/03/2025 13:11:00 Patient: KIMANI COHEN Sex: Female : 2000 Age: 24y Disposition: Transfer to [facility] Disposition Decision Time: 15:00 03/03/2025 Departure Time: 15:27 03/03/2025 TRIAGE Arrived by EMS. Historian: (patient). Primary physician (Patti Lopez). Triage time: 13:15 03/03/2025. Acuity: LEVEL 3. 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 SEPSIS SCREEN: [...] 13:03/03/25 HESHAM Burciaga R.N. 13:03/03/25. Preferred Pharmacy: ([facility] in [place]). -- 13:03/03/25 HESHAM Burciaga R.N. 1 of [...] request (14:10 03/03/2025). (Spoke with Mary from [facility]. Mary is speaking with Dr. Murphy.). -- 14:11 03/03/25 EDT [facility] 14:16 03/03/25. Transfer request (14:15 03/03/2025). (Dr. Murphy is speaki (more content not included)... Normal [facility] ED ORDER SHEET (CPOE ONLY)on 03-05-2025 ED ORDER SHEET (CPOE ONLY) Order Sheet - KIMANI COHEN, : 2000, , Order Sheet [address] [place] [address] [id number] 03/03/2025 Patient: KIMANI COHEN Sex: Female : [...] K in NS. put in kride IVPB [id number] mEq at 50 mL/hr 15:54 EDT Prachi [...] (03/05/2025 07:35 EDT)] 3 of 3 Normal [facility] ED PHYSICIAN CLINICAL REPORT on 03-05-2025 ED PHYSICIAN CLINICAL REPORT Narrative - KIMANI COHEN, : 2000, , Physician Clinical Narrative [address] [address] [id number] 03/03/2025 13:11:00 Patient: KIMANI COHEN Sex: Female : 2000 Age: 24y Disposition: Transfer to [facility] Disposition Decision Time: 15:00 03/03/2025 Departure [...] 51.6 % (more content not included)... Normal [facility] ED SUPER BILLon 03-05-2025 ED SUPER BILL KIMANI Rebolledo, : 2000, , [place] [address] [place] [address] [id number] 03/03/2025 Patient: KIMANI COHEN Sex: Female : 2000 Age: 24y Facility Professional Category Item Description Code Code Quantity Fee Total Drugs Normal Saline 776835 1 $0.00 $0.00 1000cc (581668) Nurse/E/M EMERGENCY 971876 1 $0.00 $0.00 DEPT VISIT HIGH SEVERITYFUNCJ (37399-87) Nurse/IV/IM/Infusions Hydration 819727 2 $0.00 $0.00 additional hour (95828) Nurse/IV/IM/Infusions IVP additional 519572 2 $0.00 $0.00 push (42480) Nurse/IV/IM/Infusions IVP initial (87069) 764049 1 $0.00 $0.00 Grand $0.00 Total Providers James Murphy M.D. Chief Complaint 1 of 2 KIMANI Rebolledo, : 2000, , HEADACHE and MIGRAINE HEADACHE. 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 ICD-10 Codes I60.9: Nontraumatic subarachnoid hemorrhage, unspecified 2 of 2 Normal [facility] ED VISIT SUMMARYon ED VISIT SUMMARY Visit Overview - KIMANI MOSELEY : 2000, , Visit Overview [facility] [address] 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 John) ALLERGIES No Known Drug [...] A CEREBRAL AVM 3 of 3 Normal [facility] ED VITALS FLOW SHEETon 03-05 ED VITALS FLOW SHEET Vitals - MIKE COHEN, : 2000, , Vital Sign Flow Sheet [address] [place] [address] [phone] 03/03/2025 Patient: KIMANI COHEN Sex: Female : [...] 13:20 03/03/2025 15 2 of 2 Normal [facility] Glucose Test strip manual (B ld) [Mass/Vol]on 03-05-2025 Glucose [Mass/Vol] 120 mg/dL High [address] [place] [address] Comment on above: Performed By: #### 2 341-6 ####CALE Roth ([id number])[facility] ([facility])[address] [place] [address] Glucose [Mass/Vol] 125 mg/dL High [address] [place] [address] Comment on above: Performed By: #### 2 341-6 ####CALE Roth ([id number])[facility] ([facility])[address] [place] [address] Glucose [Mass/Vol] 150 mg/dL High [address] [place] [address] Comment on above: Performed By: #### 2 341-6 ####CALE Roth ([id number])[facility] ([facility])[address] [place] [address] Glucose [Mass/Vol] 148 mg/dL High [address] [place] [address] Comment on above: Performed By: #### 2 341-6 ####CALE Roth ([id number])[facility] ([facility])61035 [place] [address] Glucose [Mass/Vol] 136 mg/dL High 74-99 [facility] Comment on above: Performed By: #### 2 341-6 ####CALE Roth ([id number])[facility] ([facility])85173 [place] [address] Glucose [Mass/Vol] 161 mg/dL High 74-99 [facility] Comment on above: Performed By: #### 2 341-6 ####CALE Roth ([id number])[facility] ([facility])35360 [place] [address] Glucose [Mass/Vol] 162 mg/dL High 74-99 [facility] Comment on above: Performed By: #### 2 341-6 ####CALE Roth ([id number])[facility] ([facility])26740 [place] [address] Magnesiumon 03-05-2025 Magnesium [Mass/Vol] 1.86 mg/dL Normal 1.60-2.40 [facility] Comment on above: Performed By: #### 1 9123-9 ####CALE Roth ([id number])[facility] ([facility])38993 [place] [address] Renal function 2000 panelon 03-05-2025 Albumin BCP dye [Mass/Vol] 4.2 g/dL Normal 3.4-5.0 [facility] Comment on above: Performed By: #### 2 4362-6 ####CALE Roth ([id number])[facility] ([facility])28396 [place] [address] Anion gap [Moles/Vol] 12 mmol/L Normal 10-20 [facility] Comment on above: Performed By: #### 2 4362-6 ####CALE Roth ([id number])[facility] ([facility])[address]49 [place] [address] Calcium [Mass/Vol] 9.3 mg/dL Normal 8.6-10.6 [facility] Comment on above: Performed By: #### 2 4362-6 ####CALE CAI L ([id number])[facility] ([facility])74457 [place] [address] Chloride [Moles/Vol] 108 mmol/L High 98-107 [facility] Comment on above: Performed By: #### 2 4362-6 ####CALE CAI L ([id number])[facility] ([facility])[address]88 [place] [address] CO2 [Moles/Vol] 24 mmol/L Normal 21-[address] [facility] Comment on above: Performed By: #### 2 4362-6 ####CALE Roth ([id number])[facility] ([facility])[address]303 [place] [address] Creatinine [Mass/Vol] 0.43 mg/dL Low 0.50-1.05 [facility] Comment on above: Performed By: #### 2 4362-6 ####CALE CAI L ([id number])[facility] ([facility])16418 [place] [address] Glomerular filtration rate >90 Normal >60 [facility] Comment on above: Result Comment: Calc ulations of estimated GFR are performed using the 2020 CKD-EPI Study Refit equation without the race variable for the IDMS-Traceable creatinine methods.https://jasn.asnjournals.org/content/early/ASN .3163168752 Performed By: #### 2 4362-6 ####CALE TOSCANOMOTZER L (40655)[facility] ([facility])34963 [place] [address] Glucose [Mass/Vol] 163 mg/dL High 74-99 [facility] Comment on above: Performed By: #### 2 4362-6 ####CALE PARKERTZER L ([id number])[facility] ([facility])47843 [place] [address] Phosphate [Mass/Vol] 3.0 mg/dL Normal 2.5-4.9 [facility] Comment on above: Performed By: #### 2 4362-6 ####CALE Roth ([id number])[facility] ([facility])[address]3397 [place] [address] Potassium [Moles/Vol] 3.2 mmol/L Low 3.5-5.3 [facility] Comment on above: Performed By: #### 2 4362-6 ####CALE Roth ([id number])[facility] ([facility])[address]053 [place] [address] Sodium [Moles/Vol] 141 mmol/L Normal 136-145 [facility] Comment on above: Performed By: #### 2 4362-6 ####CALE Roth ([id number])[facility] ([facility])[address]32 [place] [address] Urea nitrogen [Mass/Vol] 8 mg/dL Normal 6-23 [facility] Comment on above: Performed By: #### 2 4362-6 ####CALE Roth ([id number])[facility] ([facility])[address]14 [place] [address] Albumin BCP dye [Mass/Vol] 4.1 g/dL Normal 3.4-5.0 [facility] Comment on above: Performed By: #### 2 4362-6 ####CALE Roth ([id number])[facility] ([facility])[address]143 [place] [address] Anion gap [Moles/Vol] 14 mmol/L Normal 10-20 [facility] Comment on above: Performed By: #### 2 4362-6 ####CALE Roth ([id number])[facility] ([facility])[address]012 [place] [address] Calcium [Mass/Vol] 8.4 mg/dL Low 8.6-10.6 [facility] Comment on above: Performed By: #### 2 4362-6 ####CALE Roth ([id number])[facility] ([facility])[address] [place] [address] Chloride [Moles/Vol] 109 mmol/L High 98-107 [facility] Comment on above: Performed By: #### 2 4362-6 ####CALE CAI L ([id number])[facility] ([facility])[address] [place] [address] CO2 [Moles/Vol] 22 mmol/L Normal 21-[address] [facility] Comment on above: Performed By: #### 2 4362-6 ####CALE Roth ([id number])[facility] ([facility])[address]83 [place] [address] Creatinine [Mass/Vol] 0.52 mg/dL Normal 0.50-1.05 [facility] Comment on above: Performed By: #### 2 4362-6 ####CALE Roth ([id number])[facility] ([facility])[address] [place] [address] Glomerular filtration rate >90 Normal >60 [facility] Comment on above: Result Comment: Calc ulations of estimated GFR are performed using the 2020 CKD-EPI Study Refit equation without the race variable for the IDMS-Traceable creatinine methods.https://jasn.asnjournals.org/content//ASN .4253969314 Performed By: #### 2 4362-6 ####CALE Roth ([id number])[facility] ([facility])[address] [place] [address] Glucose [Mass/Vol] 201 mg/dL High 74-99 [facility] Comment on above: Performed By: #### 2 4362-6 ####CALE Roth ([id number])[facility] ([facility])[address] [place] [address] Phosphate [Mass/Vol] 3.2 mg/dL Normal 2.5-4.9 [facility] Comment on above: Performed By: #### 2 4362-6 ####CALE Roth ([id number])[facility] ([facility])[address] [place] [address] Potassium [Moles/Vol] 3.2 mmol/L Low 3.5-5.3 [facility] Comment on above: Performed By: #### 2 4362-6 ####CALE Roth ([id number])[facility] ([facility])[address] [place] [address] 95708 Urea nitrogen [Mass/Vol] 8 mg/dL Normal 6-23 [facility] Comment on above: Performed By: #### 2 4362-6 ####CALE Roth ([id number])[facility] ([facility])[address] [place] [address] 39225 Sodiumon 03-05-2025 Sodium [Moles/Vol] 148 mmol/L High 136-145 [facility] Comment on above: Performed By: #### 2 951-2 ####CALE Roth ([id number])[facility] ([facility])[address] [place] [address] 12416 Sodium [Moles/Vol] 143 mmol/L Normal 136-145 [facility] Comment on above: Performed By: #### 2 951-2 ####CALE Roth ([id number])[facility] ([facility])[address] [place] [address] 94261 Sodium [Moles/Vol] 142 mmol/L Normal 136-145 [facility] Comment on above: Performed By: #### 2 951-2 ####CALE Roth ([id number])[facility] ([facility])[address] [place] [address] 16042 Performed By: #### 2 4362-6 ####CALE Roth ([id number])[facility] ([facility])[address] [place] [address] Specific gravity Auto test s trip (U) [Rel density]on 03-05-2025 Specific gravity (U) [Rel density] 1.019 Normal 1.005-1.035 [facility] Comment on above: Performed By: #### 5 3326-5 ####CALE Roth ([id number])[facility] ([facility])[address] [place] [id number] Triglycerideon 03-05-2025 Triglyceride [Mass/Vol] 62 mg/dL Normal 0-114 [facility] Comment on above: Order Comment: While [...] Performed By: #### 2 571-8 ####CALE Roth ([id number])[facility] ([facility])[address] [place], [place] [address] CT HEAD WO IV CONTRASTon CT HEAD WO IV CONTRAST Normal [facility] ECG 12-LEADon 03-04-2025 ECG 12-LEAD Ventricular Rate 80 Atrial Rate 80 P-R Interval 166 QRS Duration 82 Q-T Interval 390 QTC Calculation(Bazett) 449 P [place] 83 R [place] 92 T [place] 90 QRS Count 14 Q Onset 219 P Onset 136 P Offset 182 T Offset 414 QTC Fredericia 429 Diagnosis Normal sinus rhythm Rightward axis Nonspecific ST abnormality Abnormal ECG No previous ECGs available See ED provider note for full interpretation and clinical correlation Confirmed by Sharon Russell ([id number]) on 03/04/2025 1:01:43 AM Normal [facility] Gas and Carbon monoxide and Electrolytes panel (BldA)on 03-04-2025 Anion gap 4 (BldA) [Moles/Vol] 13 mmo/L Normal 10-25 [facility] Comment on above: Performed By: #### 9 3685-6 ####CALE Roth ([id number])[facility] ([facility])[address] [place] [address] Base excess Calc (Bld) [Moles/Vol] -3.9000 mmol/L Low -2.0-3.0 [facility] Comment on above: Performed By: #### 9 3685-6 ####CALE Roth ([id number])[facility] ([facility])[address] [place] [address] Calcium.ionized (BldA) [Moles/Vol] 1.05 mmol/L Low 1.10-1.33 [facility] Comment on above: Performed By: #### 9 3685-6 ####CALE Roth ([id number])[facility] ([facility])[address] [place] [address] Chloride (BldA) [Moles/Vol] 108 mmol/L High 98-107 [facility] Comment on above: Performed By: #### 9 3685-6 ####CALE Roth ([id number])[facility] ([facility])[address] [place] [address] CO2 (Bld) [Partial pressure] 31 mm Hg Low 38-42 [facility] Comment on above: Performed By: #### 9 3685-6 ####CALE Roth ([id number])[facility] ([facility])[address] [place] [address] Glucose [Mass/Vol] 176 mg/dL High 74-99 [facility] Comment on above: Performed By: #### 9 3685-6 ####CALE Roth ([id number])[facility] ([facility])[address] [place] [address] HCO3 (Bld) [Moles/Vol] 19.6 mmol/L Low 22.0-26.0 [facility] Comment on above: Performed By: #### 9 3685-6 ####CALE Roth ([id number])[facility] ([facility])[address] [place] [address] 42350 Hematocrit Est (Bld) [Volume fraction] 44.0 % Normal 36.0-46.0 [facility] Comment on above: Performed By: #### 9 7675-6 ####CALE Roth ([id number])[facility] ([facility])[address] [place] [address] 59893 Hemoglobin (Bld) [Mass/Vol] 14.5 g/dL Normal 12.0-16.0 [facility] Comment on above: Performed By: #### 9 3685-6 ####CALE Roth ([id number])[facility] ([facility])[address] [place] [address] 56089 Inhaled oxygen concentration 44 % Normal [facility] Comment on above: Performed By: #### 9 8215-6 ####CALE Roth ([id number])[facility] ([facility])[address] [place] [address] 53612 Lactate (BldA) [Moles/Vol] 2.1 mmol/L High 0.4-2.0 [facility] Comment on above: Performed By: #### 9 3685-6 ####CALE Roth ([id number])[facility] ([facility])[address] [place] [address] 03589 Oxygen (Bld) [Partial pressure] 220 mm Hg High 85-95 [facility] Comment on above: Performed By: #### 9 3685-6 ####CALE Roth ([id number])[facility] ([facility])[address] [place] [address] 08949 Oxyhemoglobin (BldA) [Mass fraction] 98.0 % Normal 94.0-98.0 [facility] Comment on above: Performed By: #### 9 0635-6 ####CALE Roth ([id number])[facility] ([facility])[address] [place] [address] 60508 pH (Bld) 7.41 [pH] Normal 7.38-7.42 [facility] Comment on above: Performed By: #### 9 3685-6 ####CALE Roth ([id number])[facility] ([facility])[address] [place] [address] 66023 Potassium (BldA) [Moles/Vol] 3.0 mmol/L Low 3.5-5.3 [facility] Comment on above: Performed By: #### 9 3685-6 ####CALE Roth ([id number])[facility] ([facility])[address] [place] [address] 12090 Sodium (BldA) [Moles/Vol] 138 mmol/L Normal 136-145 [facility] Comment on above: Performed By: #### 9 3685-6 ####CALE Roth ([id number])[facility] ([facility])[address] [place] [address] 01963 Gas panel (BldA)on 5 Base excess Calc (Bld) [Moles/Vol] -5.0000 mmol/L Low -2.0-3.0 [facility] Comment on above: Performed By: #### 2 4336-0 ####CALE Roth ([id number])[facility] ([facility])[address] [place] [address] 51964 CO2 (Bld) [Partial pressure] 30 mm Hg Low 38-42 [facility] Comment on above: Performed By: #### 2 4336-0 ####CALE Roth ([id number])[facility] ([facility])[address] [place] [address] 05240 HCO3 (Bld) [Moles/Vol] 18.6 mmol/L Low 22.0-26.0 [facility] Comment on above: Performed By: #### 2 4336-0 ####CALE Roth ([id number])[facility] ([facility])[address] [place] [address] 01669 Inhaled oxygen concentration 45 % Normal [facility] Comment on above: Performed By: #### 2 4336-0 ####CALE Roth ([id number])[facility] ([facility])[address] [place] [address] 64263 Oxygen (Bld) [Partial pressure] 210 mm Hg High 85-95 [facility] Comment on above: Performed By: #### 2 4336-0 ####CALE Roth ([id number])[facility] ([facility])[address] [place] [address] 76550 Oxyhemoglobin (BldA) [Mass fraction] 97.3 % Normal 94.0-98.0 [facility] Comment on above: Performed By: #### 2 4336-0 ####CALE Roth ([id number])[facility] ([facility])[address] [place] [address] 89366 pH (Bld) 7.40 [pH] Normal 7.38-7.42 [facility] Comment on above: Performed By: #### 2 4336-0 ####CALE Roth ([id number])[facility] ([facility])[address] [place] [address] 15028 Glucose Test strip manual (B ld) [Mass/Vol]on 03-04-2025 Glucose [Mass/Vol] 162 mg/dL High [address] [place] [address] Comment on above: Performed By: #### 2 341-6 ####CALE Roth ([id number])[facility] ([facility])[address] [place] [address] 12869 Glucose [Mass/Vol] 158 mg/dL High [address] Comment on above: Performed By: #### 2 341-6 ####CALE Roth ([id number])[facility] ([facility])[address] [place] [address] 19081 Glucose [Mass/Vol] 132 mg/dL High [address] [place] [address] Comment on above: Performed By: #### 2 341-6 ####CALE Roth ([id number])[facility] ([facility])[address] [place] [address] IR ANGIOGRAM CEREBRAL BILATE RALon 03-04-2025 IR ANGIOGRAM CEREBRAL BILATERAL Normal [facility] IR INTERVENTION NEURO EMBOLI ZATIONon 03-04-2025 IR INTERVENTION NEURO EMBOLIZATION Normal [facility] Renal function 2000 panelon 03-04-2025 Albumin BCP dye [Mass/Vol] 4.4 g/dL Normal 3.4-5.0 [facility] Comment on above: Performed By: #### 2 4362-6 ####CALE Roth ([id number])[facility] ([facility])[address]995 [place] [address] Anion gap [Moles/Vol] 10 mmol/L Normal 10-20 [facility] Comment on above: Performed By: #### 2 4362-6 ####CALE Roth ([id number])[facility] ([facility])[address]33 [place] [address] Calcium [Mass/Vol] 8.7 mg/dL Normal 8.6-10.6 [facility] Comment on above: Performed By: #### 2 4362-6 ####CALE Roth ([id number])[facility] ([facility])[address]34 [place] [address] Chloride [Moles/Vol] 116 mmol/L High 98-107 [facility] Comment on above: Performed By: #### 2 4362-6 ####CALE Roth ([id number])[facility] ([facility])[address]69 [place] [address] CO2 [Moles/Vol] 23 mmol/L Normal 21-[address] [facility] Comment on above: Performed By: #### 2 4362-6 ####CALE Roth ([id number])[facility] ([facility])[address] [facility] [place] [address] Creatinine [Mass/Vol] 0.49 mg/dL Low 0.50-1.05 [facility] Comment on above: Performed By: #### 2 4362-6 ####CALE Roth ([id number])[facility] ([facility])[address]756 [place] [address] Glomerular filtration rate >90 Normal >60 [facility] Comment on above: Result Comment: Calc ulations of estimated GFR are performed using the 2020 CKD-EPI Study Refit equation without the race variable for the IDMS-Traceable creatinine methods.https://jasn.asnjournals.org/content/early//ASN .0048388731 Performed By: #### 2 4362-6 ####CALE Roth ([id number])[facility] ([facility])[address]74 [place] [address] Glucose [Mass/Vol] 149 mg/dL High 74-99 [facility] Comment on above: Performed By: #### 2 4362-6 ####CALE CAI L ([id number])[facility] ([facility])[address]320 [place] [address] Phosphate [Mass/Vol] 1.1 mg/dL Low 2.5-4.9 [facility] Comment on above: Performed By: #### 2 4362-6 ####CALE CAI L ([id number])[facility] ([facility])[address]24 [place] [address] Potassium [Moles/Vol] 3.0 mmol/L Low 3.5-5.3 [facility] Comment on above: Performed By: #### 2 4362-6 ####CALE CAI L ([id number])[facility] ([facility])[address]668 [place] [address] Urea nitrogen [Mass/Vol] 6 mg/dL Normal 6-23 [facility] Comment on above: Performed By: #### 2 4362-6 ####CALE CAI L ([id number])[facility] ([facility])[address]311 [place] [address] Albumin BCP dye [Mass/Vol] 4.2 g/dL Normal 3.4-5.0 [facility] Comment on above: Performed By: #### 2 4362-6 ####CALE CAI L ([id number])[facility] ([facility])[address]220 [place] [address] Anion gap [Moles/Vol] 13 mmol/L Normal 10-20 [facility] Comment on above: Performed By: #### 2 4362-6 ####CALE CAI L ([id number])[facility] ([facility])[address]94 [place] [address] Calcium [Mass/Vol] 8.3 mg/dL Low 8.6-10.6 [facility] Comment on above: Performed By: #### 2 4362-6 ####CALE CAI L ([id number])[facility] ([facility])[address]184 [place] [address] Chloride [Moles/Vol] 111 mmol/L High 98-107 [facility] Comment on above: Performed By: #### 2 4362-6 ####CALE CAI L ([id number])[facility] ([facility])[address]86 [place] [address] CO2 [Moles/Vol] 21 mmol/L Normal 21-[address] [facility] Comment on above: Performed By: #### 2 4362-6 ####CALE CAI L ([id number])[facility] ([facility])[address]40 [place] [address] Creatinine [Mass/Vol] 0.56 mg/dL Normal 0.50-1.05 [facility] Comment on above: Performed By: #### 2 4362-6 ####CALE CAI L ([id number])[facility] ([facility])[address]80 [place] [address] Glomerular filtration rate >90 Normal >60 [facility] Comment on above: Result Comment: Calc ulations of estimated GFR are performed using the 2020 CKD-EPI Study Refit equation without the race variable for the IDMS-Traceable creatinine methods.https://jasn.asnjournals.org/content//ASN .1748762953 Performed By: #### 2 4362-6 ####CALE Roth ([id number])[facility] ([facility])[address]18 [place] [address] Glucose [Mass/Vol] 162 mg/dL High 74-99 [facility] Comment on above: Performed By: #### 2 4362-6 ####CALE Roth ([id number])[facility] ([facility])[address]50 [place] [address] Phosphate [Mass/Vol] 1.2 mg/dL Low 2.5-4.9 [facility] Comment on above: Performed By: #### 2 4362-6 ####CALE Roth ([id number])[facility] ([facility])[address]20 [place] [address] Potassium [Moles/Vol] 3.2 mmol/L Low 3.5-5.3 [facility] Comment on above: Performed By: #### 2 4362-6 ####CALE Roth ([id number])[facility] ([facility])[address]756 [place] [address] Sodium [Moles/Vol] 142 mmol/L Normal 136-145 [facility] Comment on above: Performed By: #### 2 4362-6 ####CALE Roth ([id number])[facility] ([facility])[address]679 [place] [address] Urea nitrogen [Mass/Vol] 6 mg/dL Normal 6-23 [facility] Comment on above: Performed By: #### 2 4362-6 ####CALE Roth ([id number])[facility] ([facility])[address]53 [place] [address] Sodiumon 03-04-2025 Sodium [Moles/Vol] 144 mmol/L Normal 136-145 [facility] Comment on above: Performed By: #### 2 951-2 ####CALE Roth ([id number])[facility] ([facility])[address]14 [place] [address] Sodium [Moles/Vol] 146 mmol/L High 136-145 [facility] Comment on above: Performed By: #### 2 951-2 ####CALE Roth ([id number])[facility] ([facility])[address] [place] [address] 66434 Performed By: #### 2 4362-6 ####CALE Roth ([id number])[facility] ([facility])[address] [place] [address] 99232 XR ABDOMEN 1 VIEWon 03-04-20 25 XR ABDOMEN 1 VIEW Normal [facility] XR CHEST 1 VIEWon 03-04-2025 XR CHEST [address] [facility] Blood type and Indirect anti body screen panel (Bld)on 03-03-2025 ABO group Nom (Bld) B Normal [facility] Comment on above: Performed By: #### 3 4532-2 ####CALE Roth ([id number])[facility] ([facility])[address] [place] [address] Blood group antibody screen Ql Negative [facility] Comment on above: Performed By: #### 3 4532-2 ####CALE Roth ([id number])[facility] ([facility])[address]007 [place] [address] D Ag Ql (Bld) Positive [facility] Comment on above: Performed By: #### 3 4532-2 ####CALE Roth ([id number])[facility] ([facility])[address]281 [place] [address] C-REACTIVE PROTEINon 025 CRP [Mass/Vol] mg/L Normal 0.00 - 0.90 [facility] Comment on above: Performed By: #### 2 34746 #### [facility],[address] [place] [address] CBC + DIFFon 03-03-2025 ATY LYMP 0 % Normal [facility] Comment on above: Performed By: #### 2 33883 #### [facility],[address] [place] [address] BANDS 0 % Normal 0 - 5 [facility] Comment on above: Performed By: #### 2 51019 #### [facility],[address] [place] [address] Baso # 0.04 x10EE3/UL Normal 0.00 - 0.10 [facility] Comment on above: Performed By: #### 2 03551 #### [facility],[address] [place] [address] Basophils/100 WBC (Bld) 0.4 % Normal 0.0 - 2.0 [facility] Comment on above: Performed By: #### 2 46580 #### [facility],[address] [place] [address] Basophils/100 WBC (Bld) 0.0 % Normal 0.0 - 2.0 [facility] Comment on above: Performed By: #### 2 50559 #### [facility],[address] [place] [address] CBC + DIFF Normal [facility] Comment on above: Result Comment: CBC- COMPLETE BLOOD COUNT Performed By: #### 2 01746 #### [facility],[address] [place] [address] CELL COUNT 100 Normal [facility] Comment on above: Performed By: #### 2 16157 #### [facility],[address] [place] [address] EO 0.0 % Normal 0.0 - 7.0 [facility] Comment on above: Performed By: #### 2 73729 #### [facility],[address] [place] [address] EO # 0.06 x10EE3/UL Normal 0.00 - 0.50 [facility] Comment on above: Performed By: #### 2 79686 #### [facility],[address] [place] [address] 91429 Eosinophils/100 WBC (Bld) 0.7 % Normal 0.0 - 7.0 [facility] Comment on above: Performed By: #### 2 24352 #### [facility],[address] [place] [address] 12394 Erythrocyte distribution width (RBC) [Ratio] 13.1 % Normal 12.0 - 15.6 [facility] Comment on above: Performed By: #### 2 85383 #### [facility],[address] [place] [address] 19252 Hematocrit (Bld) [Volume fraction] 44.5 % Normal 34.0 - 46.0 [facility] Comment on above: Performed By: #### 2 88174 #### [facility],[address] [place] [address] 74404 Hemoglobin (Bld) [Mass/Vol] 15.2 g/dL Normal 12.0 - 16.0 [facility] Comment on above: Performed By: #### 2 76338 #### [facility],[address] [place] [address] 34585 Lymph # 4.41 x10EE3/UL High 0.80 - 2.80 [facility] Comment on above: Performed By: #### 2 62098 #### [facility],[address] [place] [address] 22500 Lymphocytes/100 WBC (Bld) 51.6 % High 20.0 - 45.0 [facility] Comment on above: Performed By: #### 2 25723 #### [facility],[address] [place] [address] 41837 Lymphocytes/100 WBC (Bld) 57 % High 20 - 45 [facility] Comment on above: Performed By: #### 2 68533 #### [facility],[address] [place] [address] MANUAL DIFF SEE BELOW Normal [facility] Comment on above: Performed By: #### 2 69066 #### [facility],[address] [place] [address] MCH (RBC) [Entitic mass] 29 pg Normal 27 - 33 [facility] Comment on above: Performed By: #### 2 60161 #### [facility],[address] [place] [address] MCHC 34 X10 3 Normal 32 - 36 [facility] Comment on above: Performed By: #### 2 81427 #### [facility],[address] [place] [address] MCV (RBC) [Entitic vol] 86 fL Normal 80 - 99 [facility] Comment on above: Performed By: #### 2 95083 #### [facility],[address] [place] [address] META 0 % Normal 0 - 1 [facility] Comment on above: Performed By: #### 2 71716 #### [facility],[address] [place] [address] Metamyelocytes/100 WBC (Bld) 0 % Normal [facility] Comment on above: Performed By: #### 2 94570 #### [facility],[address] [place] [address] Aguada # 0.60 x10EE3/UL Normal 0.20 - 1.00 [facility] Comment on above: Performed By: #### 2 49300 #### [facility],[address] [place] [address] MONOS 7 % Normal 0 - 10 [facility] Comment on above: Performed By: #### 2 80371 #### [facility],[address] [place] [address] MONOS % 7.1 % Normal 0.0 - 10.0 [facility] Comment on above: Performed By: #### 2 53762 #### [facility],[address] [place] [address] 58635 Morphology Ibrahima (Bld) [Interp] REVIEWED Normal [facility] Comment on above: Performed By: #### 2 51582 #### [facility],[address] [place] [address] 24416 Neut # 3.43 x10EE3/UL Normal 1.50 - 7.10 [facility] Comment on above: Performed By: #### 2 69878 #### [facility],[address] [place] [address] 87517 Neutrophils/100 WBC (Bld) 40.2 % Low 46.0 - 76.0 [facility] Comment on above: Performed By: #### 2 76832 #### [facility],[address] [place] [address] 08255 NRBC 0 /100 Normal [facility] Comment on above: Performed By: #### 2 51499 #### [facility],[address] [place] [address] 11481 PLATELET 255 x10EE3/UL Normal 150 - 450 [facility] Comment on above: Performed By: #### 2 20881 #### [facility],[address] [place] [address] 10230 Platelet mean volume (Bld) [Entitic vol] 8.7 fL Normal 6.6 - 10.5 [facility] Comment on above: Result Comment: AUTO MATED DIFFERENTIAL Performed By: #### 2 92809 #### [facility],[address] [place] [address] 15701 RBC 5.20 x 10EE6/UL Normal 4.10 - 5.30 [facility] Comment on above: Performed By: #### 2 45426 #### [facility],[address] [place] [address] 02325 SEGS 36 % Low 46 - 76 [facility] Comment on above: Performed By: #### 2 74872 #### [facility],[address] [place] [address] 60767 WBC 8.6 x 10EE3/UL Normal 4.5 - 10.8 [facility] Comment on above: Performed By: #### 2 95776 #### [facility],[address] [place] [address] 93865 OTHER 0 Normal [facility] Comment on above: Performed By: #### 2 38333 #### [facility],[address] [place] [address] 38565 CBC W Auto Differential pane l (Bld)on 03-03-2025 Basophils (Bld) [#/Vol] 0.01 x10*3/uL Normal 0.00-0.10 [facility] Comment on above: Performed By: #### 5 7021-8 ####CALE Roth ([id number])[facility] ([facility])[address] [place] [address] Basophils/100 WBC (Bld) 0.1 % Normal 0.0-2.0 [facility] Comment on above: Performed By: #### 5 7021-8 ####CALE Roth ([id number])[facility] ([facility])[address]404 [place] [address] Eosinophils (Bld) [#/Vol] 0.02 x10*3/uL Normal 0.00-0.70 [facility] Comment on above: Performed By: #### 5 7021-8 ####CALE Roth ([id number])[facility] ([facility])[id number] [place] [address] Eosinophils/100 WBC (Bld) 0.2 % Normal 0.0-6.0 [facility] Comment on above: Performed By: #### 5 7021-8 ####CALE Roth ([id number])[facility] H[facility] ([facility])[address] [place] [address] Erythrocyte distribution width (RBC) [Ratio] 11.5 % Normal 11.5-14.5 [facility] Comment on above: Performed By: #### 5 7021-8 ####CALE PARKERTZER L ([id number])[facility] ([facility])[address] [place] [address] 45036 Hematocrit (Bld) [Volume fraction] 39.2 % Normal 36.0-46.0 [facility] Comment on above: Performed By: #### 5 7021-8 ####CALE TOSCANOMOTZER L ([id number])[facility] ([facility])[address] [place] [address] 09596 Hemoglobin (Bld) [Mass/Vol] 13.8 g/dL Normal 12.0-16.0 [facility] Comment on above: Performed By: #### 5 7021-8 ####CALE PARKERTZGONZALEZ L ([id number])[facility] ([facility])[address] [place] [address] 57104 Immature granulocytes (Bld) [#/Vol] 0.04 x10*3/uL Normal 0.00-0.70 [facility] Comment on above: Performed By: #### 5 7021-8 ####CALE RUTLEDGEER L ([id number])[facility] ([facility])[address] [place] [address] 53829 Immature granulocytes/100 WBC (Bld) 0.4 % Normal 0.0-0.9 [facility] Comment on above: Result Comment: Aleisha ture Granulocyte Count (IG) includes promyelocytes, myelocytes and metamyelocytes but does not include bands. Percent differential counts (%) should be interpreted in the context of the absolute cell counts (cells/UL). Performed By: #### 5 7021-8 ####CALE TOSCANOMOTZER L ([id number])[facility] ([facility])[address] [place] [address] 16398 Lymphocytes (Bld) [#/Vol] 0.98 x10*3/uL Low 1.20-4.80 [facility] Comment on above: Performed By: #### 5 7021-8 ####CALE TOSCANOMOTZER L ([id number])[facility] ([facility])[address] [place] [address] Lymphocytes/100 WBC (Bld) 9.0 % Normal 13.0-44.0 [facility] Comment on above: Performed By: #### 5 7021-8 ####CALE Roth ([id number])[facility] ([facility])[address] [place] [address] MCH (RBC) [Entitic mass] 29.9 pg Normal 26.0-34.0 [facility] Comment on above: Performed By: #### 5 7021-8 ####CALE Roth ([id number])[facility] ([facility])[address] [place] [address] MCHC (RBC) [Mass/Vol] 35.2 g/dL Normal 32.0-36.0 [facility] Comment on above: Performed By: #### 5 7021-8 ####CALE Roth ([id number])[facility] ([facility])[address] [place] [address] 42873 MCV (RBC) [Entitic vol] 85 fL Normal 80-100 [facility] Comment on above: Performed By: #### 5 7021-8 ####CALE Roth ([id number])[facility] ([facility])[address] [place] [address] 01221 Monocytes (Bld) [#/Vol] 0.84 x10*3/uL Normal 0.10-1.00 [facility] Comment on above: Performed By: #### 5 7021-8 ####CALE Roth ([id number])[facility] ([facility])[address] [place] [address] 79172 Monocytes/100 WBC (Bld) 7.7 % Normal 2.0-10.0 [facility] Comment on above: Performed By: #### 5 7021-8 ####CALE Roth ([id number])[facility] ([facility])[address] [place] [address] 35944 Neutrophils (Bld) [#/Vol] 9.01 x10*3/uL High 1.20-7.70 [facility] Comment on above: Result Comment: Perc ent differential counts (%) should be interpreted in the context of the absolute cell counts (cells/uL). Performed By: #### 5 7021-8 ####CALE Roth ([id number])[facility] ([facility])[address] [place] [address] Neutrophils/100 WBC (Bld) 82.6 % Normal 40.0-80.0 [facility] Comment on above: Performed By: #### 5 7021-8 ####CALE Roth ([id number])[facility] ([facility])[address] [place] [address] Nucleated RBC/100 WBC (Bld) [Ratio] 0.0 /100 WBCs Normal 0.0-0.0 [facility] Comment on above: Performed By: #### 5 7021-8 ####CALE Roth ([id number])[facility] ([facility])[address] [place] [address] Platelets (Bld) [#/Vol] 146 x10*3/uL Low 150-450 [facility] Comment on above: Performed By: #### 5 7021-8 ####CALE Roth ([id number])[facility] ([facility])[address] [place] [address] RBC (Bld) [#/Vol] 4.62 x10*6/uL Normal 4.00-5.20 [facility] Comment on above: Performed By: #### 5 7021-8 ####ACLE Roth ([id number])[facility] ([facility])[address] [place] [address] WBC (Bld) [#/Vol] 10.9 x10*3/uL Normal 4.4-11.3 [facility] Comment on above: Performed By: #### 5 7021-8 ####CALE Roth ([id number])[facility] ([facility])[address] [place] [address] CMP with eGFRon 03-03-2025 AGE 24 years Normal [facility] Comment on above: Performed By: #### 2 49495 ####[facility],[address] [place] [address] 25154 Albumin [Mass/Vol] 4.4 g/dL Normal 3.4 - 5.0 [facility] Comment on above: Performed By: #### 2 26701 ####[facility],[address] [place] [address] 78521 Albumin/Globulin [Mass ratio] 1.3 {ratio} Normal 0.9 - 1.6 [facility] Comment on above: Performed By: #### 2 63567 ####[facility],[address] [place] [address] 58938 ALK PHOS 56 U/L Normal 46 - 116 [facility] Comment on above: Performed By: #### 2 83351 ####[facility],[address] [place] [address] 75366 ALT [Catalytic activity/Vol] 24 U/L Normal 16 - 63 [facility] Comment on above: Performed By: #### 2 27593 ####[facility],[address] [place] [address] 22001 Anion gap [Moles/Vol] 14 mmol/L Normal 10 - 20 [facility] Comment on above: Performed By: #### 2 96344 ####[facility],[address] [place] [address] 12518 AST [Catalytic activity/Vol] 17 U/L Normal 13 - 39 [facility] Comment on above: Performed By: #### 2 61771 ####[facility],[address] [place] [address] 62760 B/C RATIO 16 ratio Normal 0 - 30 [facility] Comment on above: Performed By: #### 2 83380 ####[facility],[address] [place] [address] 91711 Bilirubin [Mass/Vol] 0.4 mg/dL Normal 0.2 - 1.0 [facility] Comment on above: Performed By: #### 2 71307 ####[facility],[address] [place] [address] 21646 Calcium [Mass/Vol] 9.0 mg/dL Normal 8.5 - 10.1 [facility] Comment on above: Performed By: #### 2 35778 ####[facility],[address] [place] [address] 23407 Chloride [Moles/Vol] 102 mmol/L Normal 98 - 107 [facility] Comment on above: Performed By: #### 2 78685 ####[facility],[address] [place] [address] 38313 CMP with eGFR Normal [facility] Comment on above: Result Comment: COMP REHENSIVE METABOLIC PANEL Performed By: #### 2 80807 ####[facility],[address] [place] [address] 30270 CO2 [Moles/Vol] 27.7 mmol/L Normal 21.0 - 32.0 [facility] Comment on above: Performed By: #### 2 15873 ####[facility],[address] [place] [address] 48805 Creatinine [Mass/Vol] 0.87 mg/dL Normal 0.55 - 1.02 [facility] Comment on above: Performed By: #### 2 84818 ####[facility],[address] [place] [address] 54242 GFR/1.73 sq M.predicted among non-blacks MDRD (S/P/Bld) [Vol rate/Area] mL/min/{1.73_m2} Normal 60 - 999 [facility] Comment on above: Performed By: #### 2 14680 ####[facility],[address] [place] [address] 66284 Result Comment: ACCO RDING TO THE NATIONAL KIDNEY DISEASE EDUCATION PROGRAM(NKDE), A NORMAL eGFR IS A VALUE GREATER THAN OR EQUAL TO 60 ML/MIN/1.73 SQ METERS. CHRONIC KIDNEY DISEASE: <60mL/MIN/1.73 SQ METERS KIDNEY FAILURE: <15mL/MIN/1.73 SQ METERS THIS TEST SHOULD ONLY BE USED FOR PATIENTS 18 YEARS OF AGE AND OLDER. Globulin (S) [Mass/Vol] 3.5 g/dL Normal 1.5 - 3.8 [facility] Comment on above: Performed By: #### 2 52626 ####[facility],[address] [place] [address] 13297 Glucose [Mass/Vol] 121 mg/dL High 74 - 106 [facility] Comment on above: Performed By: #### 2 24217 ####[facility],[address] [place] [address] 33498 Potassium [Moles/Vol] 2.7 mmol/L Critically low 3.5 - 5.1 [facility] Comment on above: Result Comment: { CA LLED TO FABIO YODER BY [facility] @ 1422 { READ BACK BY FABIO YODER RA 1420 Performed By: #### 2 85029 ####[facility],[address] [place] [address] 00595 Protein [Mass/Vol] 7.9 g/dL Normal 6.4 - 8.2 [facility] Comment on above: Performed By: #### 2 10430 ####[facility],[address] [place] [address] 99015 Sodium [Moles/Vol] 141 mmol/L Normal 136 - 145 [facility] Comment on above: Performed By: #### 2 74690 ####[facility],[address] [place] [address] 63718 Urea nitrogen [Mass/Vol] 14 mg/dL Normal 7 - 18 [facility] Comment on above: Performed By: #### 2 02176 ####[facility],[address] [place] [address] ANGIO HEAD AND NECK W AND WO IV CONTRASTon 03-03-2025 CT ANGIO HEAD AND NECK W AND WO IV CONTRAST Normal [facility] CT BRAIN W/O CONTRASTon 02-22 CT BRAIN W/O CONTRAST [address] [address] Patient: KIMANI COHEN Phone#: : [phone] Age: 24 Gender: F Pt. Type: ER Account: [id number] Location: 052 Ordering: DR. JAMES MURPHY Exam Date: 03/03/2025/13:58 Family Phys: Charge Code: 326959 Physician: [place] Order #: [id number] Dose#: [id number] mGy PROCEDURE: CT BRAIN WITHOUT [...] Bentley MD on 03/03/2025 at 14:23 Normal [facility] Choriogonadotropin.beta subu niton 03-03-2025 HCG.beta subunit Qn m[IU]/mL Normal <5 [facility] Comment on above: Order Comment: Total HCG measurement is performed using the Siemens Atellica immunoassay which detects intact HCG and free beta HCG subunit. This test is not indicated for use as a tumor marker. HCG testing is performed using a different test methodology at [facility] than other [facility]. Direct result comparison should only be made within the same method. Performed By: #### 2 1198-7 ####CALE Roth ([id number])[facility] ([facility])[address] [place], [place] [address] Comprehensive metabolic 2000 panelon 03-03-2025 Albumin BCP dye [Mass/Vol] 4.7 g/dL Normal 3.4-5.0 [facility] Comment on above: Performed By: #### 2 4323-8 ####CALE Roth ([id number])[facility] ([facility])[address] [place], [place] [address] Performed By: #### 2 4362-6 ####CALE Roth ([id number])[facility] ([facility])[address] [place] [address] 48845 ALP [Catalytic activity/Vol] 40 U/L Normal 33-110 [facility] Comment on above: Performed By: #### 2 4323-8 ####CALE Roth ([id number])[facility] ([facility])[address] [place] [address] 98173 ALT With P-5'-P [Catalytic activity/Vol] 13 U/L Normal 7-45 [facility] Comment on above: Result Comment: Rehana ents treated with Sulfasalazine may generate falsely decreased results for ALT. Performed By: #### 2 4323-8 ####CALE Roth ([id number])[facility] ([facility])[address] [place] [address] Anion gap [Moles/Vol] 16 mmol/L Normal 10-20 [facility] Comment on above: Performed By: #### 2 4323-8 ####CALE Roth ([id number])[facility] ([facility])[address] [place] [address] 18978 Performed By: #### 2 4362-6 ####CALE Roth ([id number])[facility] ([facility])[address] [facility] [place] [address] AST With P-5'-P [Catalytic activity/Vol] 20 U/L Normal 9-39 [facility] Comment on above: Performed By: #### 2 4323-8 ####CALE Roth ([id number])[facility] ([facility])[address] [place] [address] Bilirubin [Mass/Vol] 0.8 mg/dL Normal 0.0-1.2 [facility] Comment on above: Performed By: #### 2 4323-8 ####CALE Roth ([id number])[facility] ([facility])[address] [place] [address] Calcium [Mass/Vol] 9.1 mg/dL Normal 8.6-10.6 [facility] Comment on above: Performed By: #### 2 4323-8 ####CALE Roth ([id number])[facility] ([facility])[address]007 [facility] [place] [address] Performed By: #### 2 4362-6 ####CALE Roth ([id number])[facility] ([facility])[address] [place] [address] Chloride [Moles/Vol] 105 mmol/L Normal 98-107 [facility] Comment on above: Performed By: #### 2 4323-8 ####CALE Roth ([id number])[facility] ([facility])[address] [place] [address] Performed By: #### 2 4362-6 ####CALE Roth (55410)[facility] ([facility])[address] [place] [address] CO2 [Moles/Vol] 22 mmol/L Normal 21-[address] [facility] Comment on above: Performed By: #### 2 4323-8 ####CALE Roth (49101)[facility] ([facility])[address]86 [place] [address] Performed By: #### 2 4362-6 ####CALE RUTLEDGEER L (93559)[facility] ([facility])[address] [place] [address] Creatinine [Mass/Vol] 0.62 mg/dL Normal 0.50-1.05 [facility] Comment on above: Performed By: #### 2 4323-8 ####CALE RUTLEDGEER L ([id number])[facility] ([facility])[address] [place] [address] 67775 Performed By: #### 2 4362-6 ####CALE CAI L (66081)[facility] ([facility])[address] [place] [address] 50523 Glomerular filtration rate >90 Normal >60 [facility] Comment on above: Result Comment: Calc ulations of estimated GFR are performed using the 2020 CKD-EPI Study Refit equation without the race variable for the IDMS-Traceable creatinine methods.https://jasn.asnjournals.org/content/early//ASN .6466740932 Performed By: #### 2 4323-8 ####CALE RUTLEDGEER L ([id number])[facility] ([facility])[address] [place] [address] 76878 Performed By: #### 2 4362-6 ####CALE RUTLEDGEER L ([id number])[facility] ([facility])[address] [place] [address] 95760 Glucose [Mass/Vol] 149 mg/dL High 74-99 [facility] Comment on above: Performed By: #### 2 4323-8 ####CALE PARKERTZER L ([id number])[facility] ([facility])[address] [place] [address] 80517 Performed By: #### 2 4362-6 ####CALE RUTLEDGEER L (91969)[facility] ([facility])[address] [place] [address] Potassium [Moles/Vol] 3.6 mmol/L Normal 3.5-5.3 [facility] Comment on above: Performed By: #### 2 4323-8 ####CALE Roht ([id number])[facility] ([facility])[address] [place] [address] 35165 Performed By: #### 2 4362-6 ####CALE Roth ([id number])[facility] ([facility])[address] [place] [address] 15089 Protein [Mass/Vol] 7.1 g/dL Normal 6.4-8.2 [facility] Comment on above: Performed By: #### 2 4323-8 ####CALE Roth ([id number])[facility] ([facility])[address] [place] [address] 63567 Sodium [Moles/Vol] 139 mmol/L Normal 136-145 [facility] Comment on above: Performed By: #### 2 4323-8 ####CALE Roth ([id number])[facility] ([facility])[address] [place] [address] 55830 Performed By: #### 2 4362-6 ####CALE Roth ([id number])[facility] ([facility])[address] [place] [address] 23454 Urea nitrogen [Mass/Vol] 11 mg/dL Normal 6-23 [facility] Comment on above: Performed By: #### 2 4323-8 ####CALE Roth ([id number])[facility] ([facility])[address] [place] [address] 14483 Performed By: #### 2 4362-6 ####CALE Roth ([id number])[facility] ([facility])[address] [place] [address] 97782 Gas panel (BldV)on 5 Anion gap 4 (BldV) [Moles/Vol] 15.0 mmol/L Normal 10.0-25.0 [facility] Comment on above: Performed By: #### 2 4339-4 ####CALE Roth ([id number])[facility] ([facility])[address]112 [place] [address] Base excess Calc (BldV) [Moles/Vol] -2.3000 mmol/L Low -2.0-3.0 [facility] Comment on above: Performed By: #### 2 4339-4 ####CALE Roth ([id number])[facility] ([facility])[address]20 [place] [address] Calcium.ionized (BldV) [Moles/Vol] 1.16 mmol/L Normal 1.10-1.33 [facility] Comment on above: Performed By: #### 2 4339-4 ####CALE Roth ([id number])[facility] ([facility])[address] [place] [address] 13318 Chloride (BldV) [Moles/Vol] 103 mmol/L Normal 98-107 [facility] Comment on above: Performed By: #### 2 4339-4 ####CALE Roth ([id number])[facility] ([facility])[address] [place] [address] CO2 (BldV) [Partial pressure] 47 mm Hg Normal 41-51 [facility] Comment on above: Performed By: #### 2 4339-4 ####CALE Roth ([id number])[facility] ([facility])[address]83 [place] [address] Glucose [Mass/Vol] 155 mg/dL High 74-99 [facility] Comment on above: Performed By: #### 2 4339-4 ####CALE Roth (91661)[facility] ([facility])[address]66 [place] [address] HCO3 (Bld) [Moles/Vol] 24.2 mmol/L Normal 22.0-26.0 [facility] Comment on above: Performed By: #### 2 4339-4 ####CALE Roth (90092)[facility] ([facility])[address]192 [place] [address] Hematocrit Est (Bld) [Volume fraction] 42.0 % Normal 36.0-46.0 [facility] Comment on above: Performed By: #### 2 4339-4 ####CALE Roth ([id number])[facility] ([facility])[address]441 [place] [address] Hemoglobin (Bld) [Mass/Vol] 14.1 g/dL Normal 12.0-16.0 [facility] Comment on above: Performed By: #### 2 4339-4 ####CALE Roth (53262)[facility] ([facility])[address] [place] [address] 73231 Lactate (BldV) [Moles/Vol] 2.4 mmol/L High 0.4-2.0 [facility] Comment on above: Performed By: #### 2 4339-4 ####CALE Roth ([id number])[facility] ([facility])[address] [place] [address] 58407 Oxygen (BldV) [Partial pressure] 42 mm Hg Normal 35-45 [facility] Comment on above: Performed By: #### 2 4339-4 ####CALE Roth (22114)[facility] ([facility])[address] [place] [address] 73592 Oxygen saturation in Venous blood 69 % Normal 45-75 [facility] Comment on above: Performed By: #### 2 4339-4 ####CALE Roth ([id number])[facility] ([facility])[address] [place] [address] 68702 Oxyhemoglobin (BldV) [Mass fraction] 67.2 % Normal 45.0-75.0 [facility] Comment on above: Performed By: #### 2 4339-4 ####CALE Roth ([id number])[facility] ([facility])[address]164 [place] [address] pH (BldV) 7.32 [pH] Low 7.33-7.43 [facility] Comment on above: Performed By: #### 2 4339-4 ####CALE Roth (03958)[facility] ([facility])[address]878 [place] [address] Potassium (BldV) [Moles/Vol] 3.9 mmol/L Normal 3.5-5.3 [facility] Comment on above: Performed By: #### 2 4339-4 ####CALE Roth (85742)[facility] ([facility])[address]062 [place] [address] Sodium (BldV) [Moles/Vol] 138 mmol/L Normal 136-145 [facility] Comment on above: Performed By: #### 2 4339-4 ####CALE Roth ([id number])[facility] ([facility])[address]448 [place] [address] PROTHROMBIN TIME AND INRon 0 03-03-2025 INR Coag (PPP) [Relative time] 1.1 {INR} Normal 0.8 - 1.2 [facility] Comment on above: Result Comment: T [...] [employer]CH[employer] Performed By: #### 2 41174 #### [facility],[address] [place] [address] 00025 PROTHROMBIN TIME AND INR Normal [facility] Comment on above: Result Comment: PROT HROMBIN TIME AND INR Performed By: #### 2 19643 #### [address] [address] PT-COUMADIN 12.6 sec Normal 9.3 - 14.1 [facility] Comment on above: Performed By: #### 2 65254 #### [facility],[address] [place] [address] 19936 PT and aPTT panel Coag (PPP) on 03-03-2025 aPTT Coag (PPP) [Time] 20 s Low 26-36 [facility] Comment on above: Order Comment: The A PTT is no longer used for monitoring Unfractionated Heparin Therapy. For monitoring Heparin Therapy, use the Heparin Assay. Performed By: #### 3 4529-8 ####CALE Roth ([id number])[facility] ([facility])[address] [place] [address] 72042 INR Coag (PPP) [Relative time] 1.2 High 0.9-1.1 [facility] Comment on above: Order Comment: The A PTT is no longer used for monitoring Unfractionated Heparin Therapy. For monitoring Heparin Therapy, use the Heparin Assay. Performed By: #### 3 4529-8 ####CALE Roth ([id number])[facility] ([facility])[address] [place] [address] 55695 PT Coag (PPP) [Time] 12.8 s High 9.8-12.4 [facility] Comment on above: Order Comment: The A PTT is no longer used for monitoring Unfractionated Heparin Therapy. For monitoring Heparin Therapy, use the Heparin Assay. Performed By: #### 3 4529-8 ####CALE Roth (03974)[facility] ([facility])[address] [place] [address] 15466 Renal function 2000 panelon 03-03-2025 Phosphate [Mass/Vol] 2.9 mg/dL Normal 2.5-4.9 [facility] Comment on above: Performed By: #### 2 4362-6 ####CALE Roth ([id number])[facility] ([facility])[address] [place] [address] 49674 SEDRATEon 03-03-2025 SEDRATE 2 mm/hr Normal 0 - 30 [facility] Comment on above: Performed By: #### 2 84789 #### [facility],[address] [place] [address] 00371 Urinalysis complete W Reflex Culture panel (U)on 03-03-2025 Appearance (U) Clear Normal Clear [facility] Comment on above: Performed By: #### 5 8077-9 ####CALE Roth ([id number])[facility] ([facility])[address] [place] [address] Bilirubin (U) [Mass/Vol] Negative Normal NEGATIVE [facility] Comment on above: Performed By: #### 5 [id number] ####CALE CAI L ([id number])[facility] ([facility])[address] [place] [address] Color (U) Light-Yellow Normal Light-Yello w, Yellow, Dark-Yellow [facility] Comment on above: Performed By: #### 5 [id number] ####CALE Roth ([id number])[facility] ([facility])[id number] [place] [id number] Glucose Auto test strip (U) [Mass/Vol] 50 (TRACE) Abnormal Normal [facility] Comment on above: Performed By: #### 5 [id number] ####CALE TOSCANOMOISAURA L ([id number])[facility] ([facility])[address] [place] [address] Ketones (U) [Mass/Vol] 10 (1+) Abnormal NEGATIVE [facility] Comment on above: Performed By: #### 5 [id number] ####CALE CAI L ([id number])[facility] ([facility])[address] [place] [address] Leukocyte esterase Auto test strip Ql (U) Negative Normal NEGATIVE [facility] Comment on above: Performed By: #### 5 8077-9 ####CALE CAI L ([id number])[facility] ([facility])[address] [place] [address] Nitrite Auto test strip Ql (U) Negative Normal NEGATIVE [facility] Comment on above: Performed By: #### 5 8077-9 ####CALE CAI L ([id number])[facility] ([facility])[address] [place] [address] pH (U) 7.0 [pH] Normal 5.0, 5.5, 6.0, 6.5, 7.0, 7.5, 8.0 [facility] Comment on above: Performed By: #### 5 8077-9 ####CALE Roth ([id number])[facility] ([facility])[address] [place] [address] Protein (U) [Mass/Vol] Negative Normal NEGATIVE, 10 (TRACE), 20 (TRACE) [facility] Comment on above: Performed By: #### 5 8077-9 ####CALE RUTLEDGEER L ([id number])[facility] ([facility])[address] [place] [address] RBC (U) [#/Vol] Negative Normal NEGATIVE [facility] Comment on above: Performed By: #### 5 8077-9 ####CALE Roth ([id number])[facility] ([facility])[address] [place] [address] Specific gravity (U) [Rel density] 1.040 Normal 1.005-1.035 [facility] Comment on above: Performed By: #### 5 8077-9 ####CALE CAI L ([id number])[facility] ([facility])[address] [place] [address] Urobilinogen (U) [Mass/Vol] Normal Normal Normal [facility] Comment on above: Performed By: #### 5 8077-9 ####CALE CAI L ([id number])[facility] ([facility])[address] [place] [address] VERAB/VERIFY ABORHon 025 ABO group Nom (Bld) B Normal [facility] Comment on above: Order Comment: Thi s is for confirming/verifying history of ABORh on file for transfusion of blood products. If this is not for transfusion, please order an ABO/RH [[id number]]. If you have any questions or unsure what to order, please call the blood bank. Performed By: #### V ERAB ####CALE Roth ([id number])[facility] ([facility])[address] [place] [address] D Ag Ql (Bld) Positive Normal [facility] Comment on above: Order Comment: Thi s is for confirming/verifying history of ABORh on file for transfusion of blood products. If this is not for transfusion, please order an ABO/RH [[id number]]. If you have any questions or unsure what to order, please call the blood bank. Performed By: #### V ERAB ####CALE Roth ([id number])[facility] ([facility])[address] [facility] [place] [address] XR ABDOMEN 1 VIEWon 03-03-20 XR ABDOMEN 1 VIEW Normal [facility] XR CHEST 1 VIEWon 03-03-2025 XR CHEST [address] [facility] Vital Signs Date Time Vital Sign Value Performing Clinician Facility 04-26-2025 15:48-0500 Body temperature 97.5 [degF] Luis Angel Saini MD Work Phone: [facility] 04-26-2025 15:48-0500 Diastolic blood pressure 75 mm[Hg] Luis Angel Saini MD Work Phone: [facility] 04-26-2025 15:48-0500 Heart rate 102 /min Luis Angel Saini MD Work Phone: [facility] 04-26-2025 15:48-0500 Respiratory rate 17 /min Luis Angel Saini MD Work Phone: [facility] 04-26-2025 15:48-0500 SaO2% (BldA) [Mass fraction] 97 % Luis Angel Saini MD Work Phone: [facility] 04-26-2025 15:48-0500 Systolic blood pressure 108 mm[Hg] Luis Angel Saini MD Work Phone: [facility] 04-21-2025 13:43-0400 Body height 160 cm Luis Angel Saini MD Work Phone: [facility] 04-21-2025 13:43-0400 Body mass index (BMI) [Ratio] 17.19 kg/m2 Luis Angel Saini MD Work Phone: [facility] 04-21-2025 13:43-0400 Body weight 44 kg Luis Angel Saini MD Work Phone: [facility] 04-21-2025 13:39-0400 Body temperature 37.0 Luis Angel Saini MD Work Phone: [facility] Comment on above: NOTE: Patient Results are Not Corrected for Temperature 04-21-2025 13:36-0400 Body temperature 37.0 degrees Celsius [facility] Comment on above: Result Comment: NOTE: Patient Results ar e Not Corrected for Temperature Performed By: #### 2 4339-4 ####CALE Roth ([id number])[facility] ([facility])[address] [place] [address] 03-25-2025 21:20-0400 Body temperature [facility] Comment on above: Result Comment: NOTE: Patient Results ar e Not Corrected for Temperature Performed By: #### 9 3685-6 ####CALE Roth ([id number])[facility] ([facility])[address] [place] [address] 03-25-2025 21:20-0400 SaO2% (BldA) [Mass fraction] 100 % [facility] Comment on above: Performed By: #### 33022-2 ####CALE Roth ([id number])[facility] ([facility])[address] [place] [address] 03-22-2025 14:45-0400 Body temperature 37.0 degrees Celsius [facility] Comment on above: Result Comment: NOTE: Patient Results ar e Not Corrected for Temperature Performed By: #### 9 3685-6 ####CALE CAI L ([id number])[facility] ([facility])[address] [place] [address] 03-22-2025 14:45-0400 SaO2% (BldA) [Mass fraction] 100 % [facility] Comment on above: Performed By: #### 84751-6 ####CALE RUTLEDGEER L ([id number])[facility] ([facility])[address] [place], [place] [address] 03-18-2025 03:12-0400 Body temperature [facility] Comment on above: Result Comment: NOTE: Patient Results ar e Not Corrected for Temperature Performed By: #### 9 3685-6 ####CALE CAI L ([id number])[facility] ([facility])[address] [place] [address] 03-18-2025 03:12-0400 SaO2% (BldA) [Mass fraction] 100 % [facility] Comment on above: Performed By: #### 65808-1 ####CALE CAI L ([id number])[facility] ([facility])[address] [place] [address] 03-17-2025 14:13-0400 Body temperature [facility] Comment on above: Result Comment: NOTE: Patient Results ar e Not Corrected for Temperature Performed By: #### 9 3685-6 ####CALE RUTLEDGEER L ([id number])[facility] ([facility])[address] [place] [address] 03-17-2025 14:13-0400 SaO2% (BldA) [Mass fraction] 99 % [facility] Comment on above: Performed By: #### 87903-7 ####CALE RUTLEDGEER L ([id number])[facility] ([facility])[address] [place] [address] 03-15-2025 15:01-0400 Body temperature 37.0 degrees Celsius [facility] Comment on above: Performed By: #### 20556-9 ####CALE Roth ([id number])[facility] ([facility])[address] [place] [address] 03-15-2025 15:01-0400 SaO2% (BldA) [Mass fraction] 99 % [facility] Comment on above: Performed By: #### 82028-6 ####CALE Roth ([id number])[facility] ([facility])[address] [place] [address] 03-15-2025 12:54-0400 Body temperature 37.0 degrees Celsius [facility] Comment on above: Result Comment: NOTE: Patient Results ar e Not Corrected for Temperature Performed By: #### 9 3685-6 ####CALE Roth ([id number])[facility] ([facility])[address] [place] [address] 03-15-2025 12:54-0400 SaO2% (BldA) [Mass fraction] 100 % [facility] Comment on above: Performed By: #### 91410-3 ####CALE Roth ([id number])[facility] ([facility])[address] [place] [address] 03-15-2025 12:33-0400 Body temperature 37.0 degrees Celus [facility] Comment on above: Performed By: #### 35618-9 ####CALE Roth ([id number])[facility] ([facility])[address] [place] [address] 03-15-2025 12:33-0400 SaO2% (BldA) [Mass fraction] 100 % [facility] Comment on above: Performed By: #### 23132-7 ####CALE Roth ([id number])[facility] ([facility])[address] [place] [address] 03-15-2025 09:52-0400 Body temperature 37.0 degrees Celus [facility] Comment on above: Result Comment: NOTE: Patient Results ar e Not Corrected for Temperature Performed By: #### 9 3685-6 ####CALE Roth ([id number])[facility] ([facility])[address] [place], [place] [address] 03-15-2025 09:52-0400 SaO2% (BldA) [Mass fraction] 100 % [facility] Comment on above: Performed By: #### 36510-4 ####CALE Roth ([id number])[facility] ([facility])[address] [place], [place] [address] 03-15-2025 09:45-0400 Body temperature 37.0 degrees Celsius [facility] Comment on above: Result Comment: NOTE: Patient Results ar e Not Corrected for Temperature Performed By: #### 9 3685-6 ####CALE Roth ([id number])[facility] ([facility])[address] [place] [address] 03-15-2025 09:45-0400 SaO2% (BldA) [Mass fraction] 100 % [facility] Comment on above: Performed By: #### 99509-5 ####CALE Roth ([id number])[facility] ([facility])[address] [place], [place] [address] 03-06-2025 05:08-0400 Body temperature 37.0 degrees Celsius [facility] Comment on above: Performed By: #### 20063-5 ####CALE Roth ([id number])[facility] ([facility])[address] [place], [place] [address] 03-06-2025 05:08-0400 SaO2% (BldA) [Mass fraction] 100 % [facility] Comment on above: Performed By: #### 96858-1 ####CALE Roth ([id number])[facility] ([facility])[address] [place], [place] [address] 03-06-2025 04:14-0400 Body temperature 37.0 degrees Celsius [facility] Comment on above: Performed By: #### 10916-2 ####CALE CAI L ([id number])[facility] ([facility])[address] [place], [place] [address] 03-06-2025 04:14-0400 SaO2% (BldA) [Mass fraction] 96 % [facility] Comment on above: Performed By: #### 89219-7 ####CALE CAI L ([id number])[facility] ([facility])[address] [place] [address] 03-06-2025 03:47-0400 Body temperature 37.0 degrees Celus [facility] Comment on above: Performed By: #### 64681-3 ####CALE CAI L ([id number])[facility] ([facility])[address] [place] [address] 03-06-2025 03:47-0400 SaO2% (BldA) [Mass fraction] 98 % [facility] Comment on above: Performed By: #### 15346-6 ####CALE CAI L ([id number])[facility] ([facility])[address] [place], [place] [address] 03-06-2025 03:25-0400 Body temperature 37.0 degrees Celsius [facility] Comment on above: Performed By: #### 87083-4 ####CALE CAI L ([id number])[facility] ([facility])[address] [place], [place] [address] 03-06-2025 03:25-0400 SaO2% (BldA) [Mass fraction] 97 % [facility] Comment on above: Performed By: #### 22997-2 ####CALE CAI L ([id number])[facility] ([facility])[address] [place], [place] [address] 03-04-2025 11:02-0400 Body temperature 37.0 degrees Celsius [facility] Comment on above: Performed By: #### 98725-0 ####CALE CAI L ([id number])[facility] ([facility])[address] [place] [address] 03-04-2025 11:02-0400 SaO2% (BldA) [Mass fraction] 100 % [facility] Comment on above: Performed By: #### 30491-2 ####CALE CAI L ([id number])[facility] ([facility])[address] [place] [address] 03-04-2025 09:28-0400 Body temperature 37.0 degrees Celus [facility] Comment on above: Performed By: #### 61624-2 ####CALE CAI L ([id number])[facility] ([facility])[address] [place] [address] 03-04-2025 09:28-0400 SaO2% (BldA) [Mass fraction] 100 % [facility] Comment on above: Performed By: #### 13307-7 ####CALE CAI L ([id number])[facility] ([facility])[address] [place] [address] 03-03-2025 22:36-0400 Body temperature 37.0 degrees Celus [facility] Comment on above: Result Comment: NOTE: Patient Results ar e Not Corrected for Temperature Performed By: #### 2 4339-4 ####CALE Roth ([id number])[facility] ([facility])[address] [place] [address] Encounters Encounter Date Encounter Type Care Provider Facility Start: 05-05-2025 Evaluation and management of inpatient ENZO Vipul HIREN [facility] Start: 05-05-2025 [facility] Start: 05-03-2025 ambulatory Benjy Chi Carlos Facility:[facility] Start: 04-26-2025 End: 05-04-2025 Evaluation and management of inpatient Benjy Chi Carlos Facility:[facility] Start: 04-21-2025 End: 04-26-2025 Evaluation and management of inpatient Luis Angel Saini MD Work Phone: [facility] Carlos Headley 4 Comment on above: Altered mental statu s, unspecified altered mental status type (Primary Dx); 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 shunt Start: 04-20-2025 End: 04-20-2025 ambulatory Benjy Chi Carlos Facility:[facility] Start: 04-15-2025 End: 04-15-2025 Subsequent hospital visit by physician [facility] Comment on above: Arrived Start: 04-15-2025 End: 04-15-2025 ambulatory [facility] Start: 04-08-2025 End: 04-08-2025 ambulatory Yessenia Dixon Facility:[facility] Start: 04-07-2025 End: 04-21-2025 Evaluation and management of inpatient Benjy Chi Carlos Facility:[facility] Start: 04-01-2025 End: 04-07-2025 ambulatory YESSENIA LOU [facility] Start: 03-04-2025 End: 03-04-2025 Evaluation and management of inpatient [facility] Start: 03-03-2025 End: 03-31-2025 Evaluation and management of inpatient [facility] Start: 03-03-2025 End: 03-03-2025 Emergency department patient visit JAMES LOU COVERDAPOLLY [facility] Procedures Date Procedure Procedure Detail Performing [...] head/brain w/o contrast material Yesenia [place] APPLICATION INTEGRATOR-TRAFFIC COURT MAGISTRATE Work Phone: Start: 04-23-2025 Glucose quantitative blood [...] 04-21-2025 End: 04-21-2025 Chloride bld Diandra Valdez APPLICATION INTEGRATOR-TRAFFIC COURT MAGISTRATE Work Phone: Start: 04-15-2025 Study Interpretation of outside study Rajani Lord MD Work Phone: Start: 03-23-2025 Esophagogastroduodenoscopy NAVDEEP PALENCIA Plan of Treatment Date Care Activity Detail Author Start: 2052 Zoster Vaccines (1 o f 2) Zoster Vaccines (1 of 2) [facility] Start: 05-03-2025 End: 04-26-2026 CT Head WO contrast CT head wo IV contrast Imaging Routine 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 OPERATOR shunt Expected: 05/03/2025, Expires: 04/26/2026 [facility] Service Area Work Phone: Comment on above: Expected: 05/03/2025 , Expires: 04/26/2026 Start: 04-23-2025 End: 04-23-2025 Patient encounter procedure 04/23/2025 10:00 AM EDT Office Visit [facility] [address] [place] [id number] Damien Hart, APPLICATION INTEGRATOR-TRAFFIC COURT MAGISTRATE [address] [place] [address] [facility] Start: 02-22-2025 COVID-19 Vaccine ( season) COVID-19 Vaccine ( season) [facility] Start: 01-22-2025 Influenza vaccination Influenza Vacc ine (#1) [facility] Start: 2024 DTaP/Tdap/Td Vaccine s (1 - Tdap) DTaP/Tdap/Td Vaccines (1 - Tdap) [facility] Start: 2023 Screening for malign ant neoplasm of cervix [facility] Start: 2021 Hepatitis B Vaccines (1 of 3 - 19+ 3-dose series) Hepatitis B Vaccines (1 of 3 - 19+ 3-dose series) [facility] Start: 2020 Hepatitis C screening Hepatitis C Sc [facility] Start: 2018 Meningococcal B Vacc ine (1 of 2 - Standard) Meningococcal B Vaccine (1 of 2 - Standard) [facility] Start: 2017 HPV Vaccines (1 - 3-dose series) HPV Vaccines (1 - 3-dose series) [facility] Start: 2003 MMR Vaccines (1 of 1 - Standard series) MMR Vaccines (1 of 1 - Standard series) [facility] Start: 2002 HIV screening HIV Screening [facility] Start: 2002 Lipid panel Lipid Panel [facility] Start: 2002 Yearly Adult Physical Yearly Adult P hysical [facility] Electrocardiogram, 12-lead PRN ACS symptoms Electrocardiogram, 12-lead PRN ACS symptoms ECG Routine As needed until discontinued starting 04/21/2025 [facility] Work Phone: Comment on above: As needed until disc ontinued starting 04/21/2025 Glucose [Mass/volume ] in Serum or Plasma POCT Glucose Point of Care Testing - Docked Device Routine Every 6 hours (Lab) until discontinued starting 04/22/2025, [address] [facility] Service Area Work Phone: Comment on above: Every 6 hours (Lab) until discontinued starting 04/22/2025, 18 completed End: 04-21-2025 Incentive spirometry Instruct Incentive spirometry Instruct Respiratory Care Routine Once for 1 Occurrences starting 04/21/2025 until 04/21/2025 [facility] Service Area Work Phone: Comment on above: Once for 1 Occurrenc es starting 04/21/2025 until 04/21/2025 Payers Date Payer Category Payer Unknown 2025 Unknown [id number] 2025 Self-pay 2025 Unknown [id number] 2024 Managed Care (Private) 1.2.8 [id number] 2024 Unknown [id number] 2002 Unknown [id number] 2.16.8 [id number] 2002 Unknown [id number] 2.16.8 40.1.312103.3.579.2.651 2002 Unknown [id number] 2.16. 840.1.731082.3.579.2.1245 2002 Unknown [id number] 2.16. 840.1.461567.3.579.2.1245 2002 Unknown [id number] 2.16. 840.1.401912.3.579.2.1245 2002 Unknown [id number] 2.16. 840.1.587958.3.579.2.1245 2002 Unknown [id number] 2.16. 840.1.753267.3.579.2.1245 2002 Unknown [id number] 2.16. 840.1.814084.3.579.2.1245 2002 Unknown [id number] 2.16. 840.1.351747.3.579.2.1245 Unknown [id number] Unknown [id number] 2.16.8 40.1.839802.3.579.2.462 Unknown [id number] 2.16.8 40.1.017183.3.579.2.462 Unknown [id number] 2.16.8 40.1.997992.3.579.2.462 Unknown [id number] 2.16.8 40.1.266102.3.579.2.462 Unknown [id number] 2.16.8 [id number] Social History Date Type Detail Facility Start: [facility]04[facility] Start: 03-04-2025 Tobacco use and exposure Smokeless tobacco non-user [facility] Work Phone: Start: 04-01-2025 End: 04-21-2025 Alcoholic beverage intake Defer [facility] Work Phone: Start: 03-04-2025 End: 04-21-2025 History of Social function [facility] Start: 03-04-2025 End: 04-21-2025 Tobacco use panel [facility] Within the last year , have you been afraid of your partner or ex-partner? Patient unable to answer [facility] Work Phone: In the past 12 month s, was there a time when you were not able to pay the mortgage or rent on time? No [facility] Work Phone: Start: 2002 Sex assigned at Not on file U [facility] Work Phone: Start: 03-03-2025 Sex Female (finding) [facility] Medical Equipment Procedure Code Equipment Code Equipment Origin al Text Equipment Identifier Dates Graft, Duramatri x On-Lay Collagen 4 X 5 - [id number] Start: 03-04-2025 Graft, Duramatri x On-Lay Collagen 4 X 5 - [id number] Start: 03-15-2025 Implant, Crainia l, Medpor Sheet Mtb 76 X 50 X 1.6mm - [id number] Start: 03-04-2025 Clip, Aneurysm, Yasargil, Mini, Straight, 5 Mm, Titanium - [id number] - [id number] Start: 03-15-2025 Valve, Certas Pl us, W/O Siphonguard - Sn/A - [id number] Start: 03-22-2025 Ulmer, Rickh am, Large - Sna - [id number] Start: 03-22-2025 Catheter, Distal Peritoneal, Barium, Open End - Sna - [id number] Start: 03-22-2025 Screw, 1.5 X 4 H t Sd Xdr - Sn/A - [id number] Start: 03-04-2025 5 Mm [id number] [...] Functional Status Date Assessment Result Facility 04-21-2025 [facility] Work Phone: 04-21-2025 Total score [AUDIT-C] -1 025 10:10 PM Yue Almeida RN [facility] Work Phone: 04-21-2025 Functional status [facility] Work Phone: 04-21-2025 Functional status 1 [facility] Work Phone: 04-21-2025 [facility] Work Phone: 04-21-2025 [facility] 04-21-2025 Functional status [facility] Work Phone: [facility] Clinical Notes 04-07-2025 to 05-05-2025 Hilda Rico, APPLICATION INTEGRATOR-TRAFFIC COURT MAGISTRATE - 04/26/2025 1:31 PM ESTDischarge InstructionsAttachIgor John, PT - 04/26/2025 11:20 AM Carmine Dewey, RN - 04/25/2025 12:00 PM EST Note Date & Type Note Facility 05-05-2025 Note [facility] Medical Records Department [address] [place] [address] Discharge Summary 05/05/25 0744 MR#: [id number] Acct: [id number] Name: KIMANI COHEN Rep #: [id number] : 2000 24 From: Benjy Gonzalez MD PCP: Dr. 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 Reason contraindicated: stable chronic terminal block assembler use. Medications at Discharge Home Medications B complex-vitamin C-folic acid ER 400 mcg tablet,extended release 1 tab PO DAILY supplement 04/07/25 acetaminophen 325 mg/10.15 mL oral solution 650 mg feeding tube Q6H PRN pain (scale score 1-10) 04/07/25 amantadine HCl 50 mg/5 mL oral solution 100 mg feeding tube BID involuntary movement 04/07/25 bisacodyl 10 mg rectal suppository 10 mg LA DAILY PRN constipation 04/07/25 carboxymethylcellulose sodium 1 [...] below past med (more content not included)... [facility] 04-26-2025 Note [facility] Medical Records Department [address] [place] [address] History Physical Exam 04/26/252025 MR#: [id number] Acct: [id number] Name: KIMANI COHEN Rep #: [id number] : 2000 24 From: Benjy Gonzalez MD PCP: Dr. Yessenia Dixon MD Status:ADM IN Location: [facility]CU [facility]- HPI - General General Date of Admission: 04/26/25 Date of Service: 04/26/25 Chief Complaint: Here for rehabilitation. HPI Narrative KIMANI COHEN, is a 24 F who presents with following: TCU resident ruptured aneurysm, MINING PLANT OPERATOR shunt, PEG. 04/20/2025 Change in mental status, lack of progression in therapy. CT head showed slit like ventricles c/w overshunting. 04/20/2025 Admit to [facility]. 04/21/2025 Certas shunt dialed from 1 to [...] strengthening, prior to discharge home with family. [facility] Medical History (Updated 04/26/25 @ 20:34 by [...] bisacodyl 10 mg rectal suppository 10 mg LA DAILY PRN constipation 04/07/25 Unknown History carboxymethylcellulose [...] nasal discharge Cardiovascul (more content not included)... [facility] 04-26-2025 Hospital course Narrative Discharge Diagnosis Altered [...] 03/18 with severe posterior circulation spasm s/p BRIDGE WORKER to L REFLECTOR DRILLER AND DEBURRER and basilar, 10 IA verapamil to L vert, mild b/l ICA spasm. Repeat MRI brain with patchy areas of restricted diffusion along the posteromedial bilateral cerebellar hemispheres and in the superior anterior left cerebellar hemisphere. Patient ultimately required RO VPS (Certas at 1) on 03/22 follow by PEG on 03/23. She was discharged to acute rehab 03/31. Patient returned to the [facility] ED 04/21 with decline in neuro status [...] of diagnostic testing. documented in this encounter [facility] Work Phone: 04-26-2025 Hospital Discharge instructions KRISTINA Cruz - 04/26/2025 11:50 AM EST Wash incision DAILY with baby shampoo and water, pat dry, no scrubbing and leave open to air Apply a small amount of Bacitracin to Cranial surgical incision Obtain CT head in one week prior to follow up visit in one week -- May obtain CT head closer to [facility] facility. --Follow up with Neurosurgery in one week (you will be contacted for an appointment time). This may be a virtual visit The following attachments cannot be sent through Care Everywhere.STROKE OVERVIEW HANDOUTEnteral Feeding (Cook Islander)documented in this encounter [facility] Work Phone: 04-26-2025 History of Present illness Narrative Physical Therapy Therapy Communication Note Patient Name: Kimani Cohen Department: Room: [address] [place] [address] Today's Date: 04/26/2025 Discipline: Physical Therapy PT [...] for updates. Jacy Dewey RN, BSN Transitional Ceramic Maker Demonstrator Kimani Cohen is a 24 y.o. female [...] angio w severe posterior circulation spasm s/p BRIDGE WORKER to L REFLECTOR DRILLER AND DEBURRER and basilar, 10 IA verapamil to L [...] Name: Kimani Cohen Today's Date: 04/24/2025 Room: [address] [place] [address] Time Calculation Start Time: 1015 Stop Time: [...] Strengths: Support of extended family/friends, Support of pentecostalism community, Premorbid level of function Barriers to Participation: Comorbidities, Ability to acquire knowledge, Insight into problems Subjective Current Problem: 1. Altered mental status, unspecified altered mental status type 2. 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 OPERATOR shunt General: Reason for Referral: MINING PLANT OPERATOR shunt overdrainage Past Medical History Relevant to [...] and grocery shopping Prior Function: Level of [place]: Independent with ADLs and functional transfers, Independent [...] Exceptions to WFL, , and Outcome Measures: [facility] Daily Activity Putting on and taking [...] 2:45 PM Mahesh Cline OT Rehab Office: [phone] Kimani Cohen is a 24 y.o. female [...] angio w severe posterior circulation spasm s/p BRIDGE WORKER to L REFLECTOR DRILLER AND DEBURRER and basilar, 10 IA verapamil to L [...] Therapy Treatment Patient Name: Kimani Cohen Department: [place] [address] Room: [address] [place] [address]- Today's Date: 04/23/2025 Time Calculation Start Time: [...] bed prior to transfer attempts) Outcome Measures: [facility] Basic Mobility Turning from your back [...] Patient in OR today. Dispo: return to [facility] where she is [facility] under [employer]. [facility] stated she can come back skilled [...] angio w severe posterior circulation spasm s/p BRIDGE WORKER to L REFLECTOR DRILLER AND DEBURRER and basilar, 10 IA verapamil to L [...] and Treatment Patient Name: Kimani Cohen Department: [place] [address] Room: [address] [place] [address] Today's Date: 04/22/2025 Time Calculation Start Time: [...] General Reason for Referral: Patient transferred from [place] for concerns of patient MINING PLANT OPERATOR shunt and possible over drainage. at bedside [...] Prior Function Per Pt/Caregiver Report Level of [place]: Independent with ADLs and functional transfers, Independent [...] LLE : Within Functional Limits Outcome Measures: [facility] Basic Mobility Turning from your back [...] mental status type. Pharmacy reviewed the patient's [id number] medications and allergies for accuracy. Medications ADDED: None Medications CHANGED: Carboxymethylcellulose Ophthalmic (change in strength, directions) Lorazepam (change in dose) Medications REMOVED: None The list below reflects the updated BRIDGE WORKER list. Prior to Admission Medications Prescriptions Last [...] at discharge. Sources: [phone] (available under Media) [facility] Care Everywhere Chart Review Medication Dispense History Additional Comments: None to note Cata Giang [facility] Transitions of Care Pharmacist 04/22/25 Secure Chat preferred If no response call [phone] or [employer] Med Rec Electronically signed by Cata Giang [facility] at 04/22/2025 12:49 PM EDT Images from the original note were not [...] angio w severe posterior circulation spasm s/p BRIDGE WORKER to L REFLECTOR DRILLER AND DEBURRER and basilar, 10 IA verapamil to L vert, mild b/l ICA spasm, MRI brain patchy areas of restricted diffusion along the posteromedial bilateral cerebellar hemispheres and in the superior anterior left cerebellar hemisphere, 03/21 worsening exam, [facility] incr vents, EVD lowered to 0, 03/22 s/p RO VPS (Certas at 2), RF EVD removal, [facility] catheter in posn, incr vents, shunt dialed to 1, shunt series catheter distal to valve with sharp turn c/f kink, 03/23 s/p PEG, 04/21 p/w worsening exam (not FC x1d), [facility] decr vents. Patient presenting with decline in neuro status over the past few days. Imaging at OSH shows decreased ventricular caliber. Patient certas shunt currently at 1 and likely being over drained. # Hx Hydrocephalus (S/p RO MINING PLANT OPERATOR shunt insertion 03/22) - Neuro check q4hrs - Monitor VS/pulse ox D3nwcca - Monitor AM CBC/RFP -Certas dialed down to 3 - CT head this PM 04/22 # Hx of dysphagia - Continue Isosource 1.5 TF @ 45cc/hr - Consult Family Resource Specialist Prophylaxis: - DVT: SQ heparin P5izpex, SCDs, encourage ambulation - Encourage IS x10 [...] and Dr. Clair Flores CNP Neurologic Surgery [place] Team Pager #[phone] Total face to face time spent with [...] is an 24 y.o. female presenting for MINING PLANT OPERATOR shunt concern. Imaging from the outside hospital [...] status, unspecified altered mental status type 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 OPERATOR shunt Disposition As a result of their [...] note as written. documented in this encounter [facility] Work Phone: 04-25-2025 Plan of care [...] by end of the shift Outcome: Progressing [facility] Work Phone: 04-25-2025 Miscellaneous Notes Problem: [...] 03/18 with severe posterior circulation spasm s/p BRIDGE WORKER to L REFLECTOR DRILLER AND DEBURRER and basilar, 10 IA verapamil to L vert, mild b/l ICA spasm. Repeat MRI brain with patchy areas of restricted diffusion along the posteromedial bilateral cerebellar hemispheres and in the superior anterior left cerebellar hemisphere. Patient ultimately required RO VPS (Certas at 1) on 03/22 follow by PEG on 03/23. She was discharged to acute rehab 03/31. Patient returned to the [facility] ED 04/21 with decline in neuro status [...] 1 to 3 documented in this encounter [facility] Work Phone: 04-25-2025 Plan of care [...] will remian safer and free from injury. [facility] 04-24-2025 Plan of care note The [...] these barriers include Follow plan of care. [facility] 04-24-2025 Procedure note Certas Shunt Dial Certas shunt was verified to be at 3 with the [employer] shunt insurance agency owner. The Shunt was dialed to 4 with the Certas Plus shunt insurance agency owner. The setting was checked with the Certas Shunt insurance agency owner and the Certas shunt insurance agency owner plus to be at 4. Patient tolerated the procedure well. Laura Colunga MD Cosigned by Alfred Self MD at 04/26/2025 12:04 PM EST [facility] Work Phone: 04-24-2025 Procedure note Certas Shunt Dial Certas shunt was verified to be at 3 with the [employer] shunt insurance agency owner. The Shunt was dialed to 4 with the Certas Plus shunt insurance agency owner. The setting was checked with the Certas Shunt insurance agency owner and the Certas shunt insurance agency owner plus to be at 4. Patient tolerated the procedure well. Laura Colunga MD Cosigned by Alfred Self MD at 04/26/2025 12:04 PM EST documented in this encounter [facility] Work Phone: 04-23-2025 Plan of care [...] fall by end of shift Outcome: Progressing [facility] 04-22-2025 Consult note Associated Order (s): IP CONSULT TO NUTRITION SERVICES Nutrition Note Pt is a 24 y.o. year old female patient admitted on 04/21/2025 - referred to Nutrition Services for Admission nursing screening (home tube feed). Nutrition Assessment Recent Events: Pt transferred from [facility] for concerns of patient MINING PLANT OPERATOR shunt and possible over drainage. Noted pt [...] baseline Estimated Energy Needs: Total Energy Needs ~1120-0430 kCal/24 hrs Method for Estimating Needs: 35kcal/kg [...] weight and Body weight - Promote weight jain Nutritional Goal Status: New goal(s) identified Follow [...] acid, 1 capsule, g-tube, Daily before breakfast [facility] 04-22-2025 Consult note Associated Order (s): IP CONSULT TO NUTRITION SERVICES Nutrition Note Pt is a 24 y.o. year old female patient admitted on 04/21/2025 - referred to Nutrition Services for Admission nursing screening (home tube feed). Nutrition Assessment Recent Events: Pt transferred from [facility] for concerns of patient MINING PLANT OPERATOR shunt and possible over drainage. Noted pt [...] baseline Estimated Energy Needs: Total Energy Needs ~4463-2784 kCal/24 hrs Method for Estimating Needs: 35kcal/kg [...] weight and Body weight - Promote weight jain Nutritional Goal Status: New goal(s) identified Follow [...] angio w severe posterior circulation spasm s/p BRIDGE WORKER to L REFLECTOR DRILLER AND DEBURRER and basilar, 10 IA verapamil to L vert, mild b/l ICA spasm, MRI brain patchy areas of restricted diffusion along the posteromedial bilateral cerebellar hemispheres and in the superior anterior left cerebellar hemisphere, 03/21 worsening exam, [facility] incr vents, EVD lowered to 0, 03/22 s/p RO VPS (Certas at 2), RF EVD removal, [facility] catheter in posn, incr vents, shunt dialed to 1, shunt series catheter distal to valve with sharp turn c/f kink, 03/23 s/p PEG, 04/21 p/w worsening exam (not FC x1d), [facility] decr vents Patient transferred from [place] for concerns of patient MINING PLANT OPERATOR shunt and possible over drainage. at bedside [...] angio w severe posterior circulation spasm s/p BRIDGE WORKER to L REFLECTOR DRILLER AND DEBURRER and basilar, 10 IA verapamil to L vert, mild b/l ICA spasm, MRI brain patchy areas of restricted diffusion along the posteromedial bilateral cerebellar hemispheres and in the superior anterior left cerebellar hemisphere, 03/21 worsening exam, [facility] incr vents, EVD lowered to 0, 03/22 s/p RO VPS (Certas at 2), RF EVD removal, [facility] catheter in posn, incr vents, shunt dialed to 1, shunt series catheter distal to valve with sharp turn c/f kink, 03/23 s/p PEG, 04/21 p/w worsening exam (not FC x1d), [facility] decr vents Patient presenting with decline [...] 3 Jayden Quick MD Department of Neurosurgery [facility] Note authored by resident on neurosurgery team, with all questions or [place] [phone] Plan not finalized until note signed by attending [1] No past medical history on file. [2] No past surgical history on file. Cosigned by Alfred Self MD at 04/23/2025 12:40 PM EDT documented in this encounter [facility] Work Phone: 04-22-2025 Plan of care [...] Skin Goal: Promote skin healing Outcome: Progressing [facility] Work Phone: 04-22-2025 Hospital Note Formatting [...] 03/18 with severe posterior circulation spasm s/p BRIDGE WORKER to L REFLECTOR DRILLER AND DEBURRER and basilar, 10 IA verapamil to L vert, mild b/l ICA spasm. Repeat MRI brain with patchy areas of restricted diffusion along the posteromedial bilateral cerebellar hemispheres and in the superior anterior left cerebellar hemisphere. Patient ultimately required RO VPS (Certas at 1) on 03/22 follow by PEG on 03/23. She was discharged to acute rehab 03/31. Patient returned to the [facility] ED 04/21 with decline in neuro status [...] scheduled to follow up as an outpatient. [facility] Work Phone: 04-21-2025 History and physical [...] angio w severe posterior circulation spasm s/p BRIDGE WORKER to L REFLECTOR DRILLER AND DEBURRER and basilar, 10 IA verapamil to L vert, mild b/l ICA spasm, MRI brain patchy areas of restricted diffusion along the posteromedial bilateral cerebellar hemispheres and in the superior anterior left cerebellar hemisphere, 03/21 worsening exam, CT incr vents, EVD lowered to 0, 03/22 s/p RO VPS (Certas at 2), RF EVD removal, [facility] catheter in posn, incr vents, shunt dialed to 1, shunt series catheter distal to valve with sharp turn c/f kink, 03/23 s/p PEG, 04/21 p/w worsening exam (not FC x1d), [facility] decr vents Patient transferred from [place] for concerns of patient MINING PLANT OPERATOR shunt and possible over drainage. at bedside [...] vents incr, EVD dropped to 7, 03/18 [facility] incr'd vents, EVD lowered to 5, 03/18 s/p angio w severe posterior circulation spasm s/p BRIDGE WORKER to L REFLECTOR DRILLER [employer] DEBURRER and basilar, 10 IA verapamil to L vert, mild b/l ICA spasm, MRI brain patchy areas of restricted diffusion along the posteromedial bilateral cerebellar hemispheres and in the superior anterior left cerebellar hemisphere, 03/21 worsening exam, [facility] incr vents, EVD lowered to 0, 03/22 s/p RO VPS (Certas at 2), RF EVD removal, [facility] catheter in posn, incr vents, shunt dialed to 1, shunt series catheter distal to valve with sharp turn c/f kink, 03/23 s/p PEG, 04/21 p/w worsening exam (not FC x1d), [facility] decr vents Patient presenting with decline [...] Self MD at 04/23/2025 12:41 PM EDT [facility] Work Phone: 04-21-2025 History and physical [...] angio w severe posterior circulation spasm s/p BRIDGE WORKER to L REFLECTOR DRILLER AND DEBURRER and basilar, 10 IA verapamil to L [...] x1d), [facility] decr vents Patient transferred from [place] for concerns of patient MINING PLANT OPERATOR shunt and possible over drainage. at bedside [...] angio w severe posterior circulation spasm s/p BRIDGE WORKER to L REFLECTOR DRILLER AND DEBURRER and basilar, 10 IA verapamil to L vert, mild b/l ICA spasm, MRI brain patchy areas of restricted diffusion along the posteromedial bilateral cerebellar hemispheres and in the superior anterior left cerebellar hemisphere, 03/21 worsening exam, [facility] incr vents, EVD lowered to 0, 03/22 s/p RO VPS (Certas at 2), RF EVD removal, [facility] catheter in posn, incr vents, shunt dialed to 1, shunt series catheter distal to valve with sharp turn c/f kink, 03/23 s/p PEG, 04/21 p/w worsening exam (not FC x1d), [facility] decr vents Patient presenting with decline [...] 12:41 PM EDT documented in this encounter [facility] Work Phone: 04-21-2025 wholesale account manager Note Certas Shunt dialed from 1 to 3 [facility] Work Phone: 04-21-2025 Note [facility] Medical Records Department [address] [place] [address] Discharge Summary 04/21/25 1455 MR#: [id number] Acct: [id number] Name: KIMANI COHEN Rep #: [id number] : 2000 24 From: Benjy Gonzalez MD PCP: Dr. Yessenia Dixon MD Status:DIS IN Location: [place] [address] Providers Date of Admission: 04/07/25 Primary Care [...] bisacodyl 10 mg rectal suppository 10 mg LA DAILY PRN constipation 04/07/25 carboxymethylcellulose sodium 1 [...] but showed overshunt (more content not included)... [facility] 04-21-2025 Consult note Associated Order (s): IP [...] angio w severe posterior circulation spasm s/p BRIDGE WORKER to L REFLECTOR DRILLER AND DEBURRER and basilar, 10 IA verapamil to L [...] x1d), [facility] decr vents Patient transferred from [place] for concerns of patient MINING PLANT OPERATOR shunt and possible over drainage. at bedside [...] residual AVM, diffuse posterior circulation spasm, 03/16 [facility] vents incr, EVD dropped to 7, 03/18 [facility] incr'd vents, EVD lowered to 5, 03/18 s/p angio w severe posterior circulation spasm s/p BRIDGE WORKER to L REFLECTOR DRILLER AND DEBURRER and basilar, 10 IA verapamil to L vert, mild b/l ICA spasm, MRI brain patchy areas of restricted diffusion along the posteromedial bilateral cerebellar hemispheres and in the superior anterior left cerebellar hemisphere, 03/21 worsening exam, [facility] incr vents, EVD lowered to 0, 03/22 s/p RO VPS (Certas at 2), RF EVD removal, [facility] catheter in posn, incr vents, shunt dialed to 1, shunt series catheter distal to valve with sharp turn c/f kink, 03/23 s/p PEG, 04/21 p/w worsening exam (not FC x1d), [facility] decr vents Patient presenting with decline [...] 3 Jayden Quick MD Department of Neurosurgery [facility] Note authored by resident on neurosurgery team, with all questions [place] [phone] Plan not finalized until note signed by attending [1] No past medical history on file. [2] No past surgical history on file. Cosigned by Alfred Self MD at 04/23/2025 12:40 PM EDT [facility] Work Phone: 04-21-2025 Physician Emergency department Note EMERGENCY DEPARTMENT ENCOUNTER Pt Name: Kimani Cohen Birthdate 2000 Date of evaluation: 04/21/2025 Provider: KRISTINA Connell CHIEF COMPLAINT Chief Complaint Patient presents with Altered Mental Status HISTORY OF PRESENT ILLNESS Kimani Cohen is a 24 y.o. female who presents to the emergency department via EMS as a transfer from [facility] for AV shunt malfunction. Per report [...] were reviewed. History provided by patient. No central office inspector used. REVIEW OF SYSTEMS ROS is otherwise [...] presenting for neurosurgery consultation for eval of MINING PLANT OPERATOR shunt concern. She is resting comfortably in the ER cart without any difficulty or dyspnea. She is placed on continuous matchbook maker and pulse oximetry. She is breathing spontaneously [...] status, unspecified altered mental status type 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 OPERATOR shunt Patient was counseled regarding labs, imaging, likely diagnosis, and plan. All questions were answered. EKG Interpretation: N/A Differential Diagnoses Considered: MINING PLANT OPERATOR shunt malfunction, acute intracranial process, seizures Chronic [...] unspecified altered mental status type 2. 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 OPERATOR shunt Diandra Valdez, APPLICATION INTEGRATOR-TRAFFIC COURT MAGISTRATE This patient was staffed with ED Attending [...] note and agree with the documented findings. [facility] Work Phone: 04-21-2025 Emergency department Note EMERGENCY DEPARTMENT ENCOUNTER Pt Name: Kimani Cohen Birthdate 2000 Date of evaluation: 04/21/2025 Provider: KRISTINA Connell CHIEF COMPLAINT Chief Complaint Patient presents with Altered Mental Status HISTORY OF PRESENT ILLNESS Kimani Cohen is a 24 y.o. female who presents to the emergency department via EMS as a transfer from [facility] for AV shunt malfunction. Per report [...] were reviewed. History provided by patient. No central office inspector used. REVIEW OF SYSTEMS ROS is otherwise [...] presenting for neurosurgery consultation for eval of MINING PLANT OPERATOR shunt concern. She is resting comfortably in the ER cart without any difficulty or dyspnea. She is placed on continuous matchbook maker and pulse oximetry. She is breathing spontaneously [...] status, unspecified altered mental status type 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 OPERATOR shunt Patient was counseled regarding labs, imaging, likely diagnosis, and plan. All questions were answered. EKG Interpretation: N/A Differential Diagnoses Considered: MINING PLANT OPERATOR shunt malfunction, acute intracranial process, seizures Chronic [...] unspecified altered mental status type 2. 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 OPERATOR shunt Diandra Valdez, APPLICATION INTEGRATOR-TRAFFIC COURT MAGISTRATE This patient was staffed with ED Attending Dr. Siani to review the plan of care during [...] in by [facility] as transfer from [facility] for suspected AV shunt malfunction. 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 Per at bedside, pt has declining mental function over the past 2 days, does not respond as much. documented in this encounter [facility] Work Phone: 04-21-2025 Emergency department Triage note 24 yo female brought in by [facility] as transfer from [facility] for suspected AV shunt malfunction. 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 Per at bedside, pt has declining mental function over the past 2 days, does not respond as much. [facility] Work Phone: 04-07-2025 Note [facility] Medical Records Department [address] [place] [address] History Physical Exam 04/07/252021 MR#: [id number] Acct: [id number] Name: KIMANI COHEN Rep #: [id number] : 2000 24 From: Benjy Gonzalez MD PCP: Dr. Yessenia Dixon MD Status:ADM IN Location: [facility] HPI - General General Date of [...] , and on 03/04 was transferred to [facility] for Neurosurgical management. CTA head/neck completed and EVD was raised to 20. She went to [facility]io- [facility] AVM w b/l PICA, [...] angio w severe posterior circulation spasm s/p BRIDGE WORKER to L REFLECTOR DRILLER AND DEBURRER and basilar, 10 IA verapamil to L vert, mild b/l ICA spasm, MRI brain patchy areas of restricted diffusion along the posteromedial bilateral cerebellar hemispheres and in the superior anterior left cerebellar hemisphere. 03/19 [facility] min decr vents. 03/21 worsening exam, [facility] incr vents, EVD lowered to 0, vCTH decr vents. 03/22 s/p RO VPS (Certas at 2), RF EVD removal, [facility] POC catheter in posn, incr vents, [...] ordered. PT/OT recommended SNF. 04/01/2025 Admit to [facility] SNF for rehabilitation. 04/07/2025 Admit to [...] bisacodyl 10 mg rectal suppository 10 mg LA DAILY PRN constipation 04/07/25 Unknown History carboxymethylcellulose [...] digestion/nausea metoprolol tartr (more content not included)... 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 Presence of cerebrospinal fluid drainage device documented in this encounter [facility] Work Phone: Advance Directives No Advanced [...] Care Teams (unrecognized sec tion and content) County Demonstrator Relationship Specialty Start Date End Date Generic Provider, [place] [address] PCP - General Director Regulatory Agency 03/03/25 County Demonstrator Relationship Specialty Start Date End Date Generic Provider, [place] [address] PCP - General Director Regulatory Agency 03/03/25 Reason for Visit (unrecogniz ed section and content) Reason Comments Altered Mental Status Specialty Diagnoses / Procedures Referred By Contac t Referred To Contact Diagnoses Altered mental status, unspecified altered mental status type Procedures [place] [address] [facility] Department [place] [address] Phone: tel: fax: [facility] [address] [place] [address] Phone: tel: fax: Referral ID Status Reason Start Date Expiration Date Visits Re quested Visits Authorized [id number] 1 1 Scheduled Active and Recently Administ ered Medications (unrecognized section and content) Medication Order 04/24/2025 04/25/2025 04/26/2025 famotidine (Pepcid) tablet 40 mg 40 mg, g-tube, 2 times daily, First dose on Anna 04/22/25 at 1030 0932 (Given - Provider: Alana Hayes RN)213 (Given - Provider: Vanessa Prieto RN) 0838 [...] RN - Reason: Patient/family refused)[id number] (Return to [facility] - Provider: Meseret Cross RN - [...] content) DATE CREATED AUTHOR 04/28/2025 [facility] DATE CREATED AUTHOR AUTHOR'S ORGANIZ ATION 05/06/2025 [facility] DATE CREATED AUTHOR AUTHOR'S ORGANIZ ATION 05/06/2025 [facility] DATE CREATED AUTHOR AUTHOR'S ORGANIZ ATION 05/06/2025 [facility] FOR RECORDS PERTAINING TO PATIENTS WHO [...] BE BASED ON THE PRIMARY CLINICAL RECORDS. [employer] [facility]. provides no warranty or guarantee of the accuracy or completeness of information in this document.
[2025-05-30 22:05] VITALS: BP 112/81; PULSE 68; RESP 18; TEMP 36.8; O2SAT 98
== END 2025-05-30 22:07 | disposition skilled nursing facility (03) ==
PROVIDERS: Emergency Provider Surgery; PCP Student in an Organized Health Care Education/Training Program; Visit Provider Surgery
DX: R29.818 Other symptoms and signs involving the nervous system (principal); Z93.1 Gastrostomy status; R45.1 Restlessness and agitation; Z98.2 Presence of cerebrospinal fluid drainage device; Z98.890 Other specified postprocedural states
CPT/HCPCS: 82962; 99282

== ENCOUNTER → 2025-05-30 | Outpatient (CLI) | payer OTHER, SELFPAY ==
--- OUTSIDE RECORDS SUMMARY | 2025-05-30 17:35 | XMS RPT_ITS | CCD ---
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 03/31/2025 Active amantadine hydrochloride 10 mg/ml oral solution (2 sources) Influenza A M2 Protein Inhibitor Start: 03-31-2025 amantadine (Symmetrel) 50 mg/5 mL solution Indications: AVM (arteriovenous malformation) ([facility]) Take 10 mL (100 mg) by g-tube every 12 hours. Assess need for medication often while assessing patient's alert and responsiveness. 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 Apply a small amount to surgical incision (cranial) 04/26/2025 Active bisacodyl 10 mg rectal suppository (2 sources) Stimulant Laxative Start: 03-31-2025 bisacodyl (Dulcolax) 10 mg suppository Indications: AVM (arteriovenous malformation) ([facility]) Insert 1 suppository (10 mg) into the [...] 1 mg tablet Indications: AVM (arteriovenous malformation) ([facility]) Take 1 tablet (1 mg) by g-tube [...] 5 mg tablet Indications: AVM (arteriovenous malformation) ([facility]) Take 1 tablet (5 mg) by g-tube [...] 4 mg tablet Indications: AVM (arteriovenous malformation) ([facility]) Take 1 tablet (4 mg) by g-tube every 6 hours if needed for nausea or vomiting. 03/31/2025 Active vitamin B complex-vitamin C-folic acid (Nephrocaps) 1 mg capsule (2 sources) Start: 03-31-2025 vitamin B comp lópez-vitamin C-folic acid (Nephrocaps) 1 mg capsule Indications: AVM (arteriovenous malformation) ([facility]) Take 1 capsule by g-tube once [...] minute. docusate sodium 50 mg / sennosides, intermediate 8.6 mg oral tablet (5 sources) Start: [...] 500 mg tablet Indications: AVM (arteriovenous malformation) ([facility]) Take 1 tablet (500 mg) by g-tube 2 times a day. CONTINUE UNTIL INSTRUCTED TO STOP BY NEUROSURGERY OR NEUROLOGY. PLEASE DISCHARGE WITH SCRIPT WITH 6 REFILLS 03/31/2025 04/26/2025 Discontinued (Stop Taking at Discharge) polyethylene glycol 3350 18777 mg powder for oral solution (4 sources) [...] Profile (BMP )on 05-25-2025 BUN Normal 4-19 [facility] Comment on above: Result Comment: Canc elled via OM: Order cancelled - Patient discharged Performed By: #### L 501.080 #### [facility] [address] [place], [address] BUN/CRE Normal 10- [facility] Comment on above: Result Comment: Canc elled via OM: Order cancelled - Patient discharged Performed By: #### L 501.080 #### [facility] [address] [place], [address] Calcium Normal 7.6-11.0 [facility] Comment on above: Result Comment: Canc elled via OM: Order cancelled - Patient discharged Performed By: #### L 501.080 #### [facility] [address] [place], [address] CL Normal 98-108 [facility] Comment on above: Result Comment: Canc elled via OM: Order cancelled - Patient discharged Performed By: #### L 501.080 #### [facility] [address] [place], [address] CO2 Normal 21.0-32.0 [facility] Comment on above: Result Comment: Canc elled via OM: Order cancelled - Patient discharged Performed By: #### L 501.080 #### [facility] [address] [place], [address] CREAT,SERUM Normal 0.70-1.20 [facility] Comment on above: Result Comment: Canc elled via OM: Order cancelled - Patient discharged Performed By: #### L 501.080 #### [facility] [address] [place], [address] eGFR Normal >60 [facility] Comment on above: Result Comment: Canc elled via OM: Order cancelled - Patient discharged Performed By: #### L 501.080 #### [facility] [address] [place], [address] GAP Normal 5-15 [facility] Comment on above: Result Comment: Canc elled via OM: Order cancelled - Patient discharged Performed By: #### L 501.080 #### [facility] [address] [place], [address] GLU Normal 70-99 [facility] Comment on above: Result Comment: Canc elled via OM: Order cancelled - Patient discharged Performed By: #### L 501.080 #### [facility] [address] [place], [address] Potassium Normal 3.3-5.1 [facility] Comment on above: Result Comment: Canc elled via OM: Order cancelled - Patient discharged Performed By: #### L 501.080 #### [facility] [address] [place], [address] Basic Metabolic Profile (BMP) Normal 133-145 [facility] Comment on above: Result Comment: Canc elled via OM: Order cancelled - Patient discharged Performed By: #### L 501.080 #### [facility] [address] [place], [address] CBC W/Diff, Automatedon 12-0 Absolute Neut Normal 2.0-7.7 [facility] Comment on above: Result Comment: Canc elled via OM: Order cancelled - Patient discharged Performed By: #### L 501.080 #### [facility] [address] [place], [address] HCT Normal 37-47 [facility] Comment on above: Result Comment: Canc elled via OM: Order cancelled - Patient discharged Performed By: #### L 501.080 #### [facility] [address] [place], [address] HGB Normal 12.0-15.0 [facility] Comment on above: Result Comment: Canc elled via OM: Order cancelled - Patient discharged Performed By: #### L 501.080 #### [facility] [address] [place], [address] MCH Normal 27.0-32.0 [facility] Comment on above: Result Comment: Canc elled via OM: Order cancelled - Patient discharged Performed By: #### L 501.080 #### [facility] [address] [place], [address] MCHC Normal 32-36 [facility] Comment on above: Result Comment: Canc elled via OM: Order cancelled - Patient discharged Performed By: #### L 501.080 #### [facility] [address] [place], [address] MCV Normal 81-99 [facility] Comment on above: Result Comment: Canc elled via OM: Order cancelled - Patient discharged Performed By: #### L 501.080 #### [facility] [address] [place], [address] NEUT% Normal 47-70 [facility] Comment on above: Result Comment: Canc elled via OM: Order cancelled - Patient discharged Performed By: #### L 501.080 #### [facility] [address] [place], [address] PLT Normal 150-450 [facility] Comment on above: Result Comment: Canc elled via OM: Order cancelled - Patient discharged Performed By: #### L 501.080 #### [facility] [address] [place], [address] RBC Normal 4.2-5.4 [facility] Comment on above: Result Comment: Canc elled via OM: Order cancelled - Patient discharged Performed By: #### L 501.080 #### [facility] [address] [place], [address] RDW CV Normal 11.6-14.6 [facility] Comment on above: Result Comment: Canc elled via OM: Order cancelled - Patient discharged Performed By: #### L 501.080 #### [facility] [address] [place], [address] RDW SD Normal 35.1-43.9 [facility] Comment on above: Result Comment: Canc elled via OM: Order cancelled - Patient discharged Performed By: #### L 501.080 #### [facility] [address] [place], [address] WBC Normal 4.4-11.0 [facility] Comment on above: Result Comment: Canc elled via OM: Order cancelled - Patient discharged Performed By: #### L 501.080 #### [facility] [address] [place], [address] Basic Metabolic Profile (BMP )on 05-18-2025 BUN Normal 4-19 [facility] Comment on above: Result Comment: Canc elled via OM: Order cancelled - Patient discharged Performed By: #### L 500.2500, L100.0100 #### [facility] [address] [place], [address] BUN/CRE Normal 10-20 [facility] Comment on above: Result Comment: Canc elled via OM: Order cancelled - Patient discharged Performed By: #### L 500.2500, L100.0100 #### [facility] [address] [place], [address] Calcium Normal 7.6-11.0 [facility] Comment on above: Result Comment: Canc elled via OM: Order cancelled - Patient discharged Performed By: #### L 500.2500, L100.0100 #### [facility] [address] [place], [address] CL Normal 98-108 [facility] Comment on above: Result Comment: Canc elled via OM: Order cancelled - Patient discharged Performed By: #### L 500.2500, L100.0100 #### [facility] [address] [place], [address] CO2 Normal 21.0-32.0 [facility] Comment on above: Result Comment: Canc elled via OM: Order cancelled - Patient discharged Performed By: #### L 500.2500, L100.0100 #### [facility] [address] [place], [address] CREAT,SERUM Normal 0.70-1.20 [facility] Comment on above: Result Comment: Canc elled via OM: Order cancelled - Patient discharged Performed By: #### L 500.2500, L100.0100 #### [facility] [address] [place], [address] eGFR Normal >60 [facility] Comment on above: Result Comment: Canc elled via OM: Order cancelled - Patient discharged Performed By: #### L 500.2500, L100.0100 #### [facility] [address] [place], [address] GAP Normal 5-15 [facility] Comment on above: Result Comment: Canc elled via OM: Order cancelled - Patient discharged Performed By: #### L 500.2500, L100.0100 #### [facility] [address] [place], [address] GLU Normal 70-99 [facility] Comment on above: Result Comment: Canc elled via OM: Order cancelled - Patient discharged Performed By: #### L 500.2500, L100.0100 #### [facility] [address] [place], [address] Potassium Normal 3.3-5.1 [facility] Comment on above: Result Comment: Canc elled via OM: Order cancelled - Patient discharged Performed By: #### L 500.2500, L100.0100 #### [facility] [address] [place], [address] Basic Metabolic Profile (BMP) Normal 133-145 [facility] Comment on above: Result Comment: Canc elled via OM: Order cancelled - Patient discharged Performed By: #### L 500.2500, L100.0100 #### [facility] [address] [place], [address] CBC W/Diff, Automatedon 11-2 Absolute Neut Normal 2.0-7.7 [facility] Comment on above: Result Comment: Canc elled via OM: Order cancelled - Patient discharged Performed By: #### L 500.2500, L100.0100 #### [facility] [address] [place], [address] HCT Normal 37-47 [facility] Comment on above: Result Comment: Canc elled via OM: Order cancelled - Patient discharged Performed By: #### L 500.2500, L100.0100 #### [facility] [address] [place], [address] HGB Normal 12.0-15.0 [facility] Comment on above: Result Comment: Canc elled via OM: Order cancelled - Patient discharged Performed By: #### L 500.2500, L100.0100 #### [facility] [address] [place], [address] MCH Normal 27.0-32.0 [facility] Comment on above: Result Comment: Canc elled via OM: Order cancelled - Patient discharged Performed By: #### L 500.2500, L100.0100 #### [facility] [address] [place], [address] MCHC Normal 32-36 [facility] Comment on above: Result Comment: Canc elled via OM: Order cancelled - Patient discharged Performed By: #### L 500.2500, L100.0100 #### [facility] [address] [place], [address] MCV Normal 81-99 [facility] Comment on above: Result Comment: Canc elled via OM: Order cancelled - Patient discharged Performed By: #### L 500.2500, L100.0100 #### [facility] [address] [place], [address] NEUT% Normal 47-70 [facility] Comment on above: Result Comment: Canc elled via OM: Order cancelled - Patient discharged Performed By: #### L 500.2500, L100.0100 #### [facility] [address] [place], [address] PLT Normal 150-450 [facility] Comment on above: Result Comment: Canc elled via OM: Order cancelled - Patient discharged Performed By: #### L 500.2500, L100.0100 #### [facility] [address] [place], [address] RBC Normal 4.2-5.4 [facility] Comment on above: Result Comment: Canc elled via OM: Order cancelled - Patient discharged Performed By: #### L 500.2500, L100.0100 #### [facility] [address] [place], [address] RDW CV Normal 11.6-14.6 [facility] Comment on above: Result Comment: Canc elled via OM: Order cancelled - Patient discharged Performed By: #### L 500.2500, L100.0100 #### [facility] [address] [place], [address] RDW SD Normal 35.1-43.9 [facility] Comment on above: Result Comment: Canc elled via OM: Order cancelled - Patient discharged Performed By: #### L 500.2500, L100.0100 #### [facility] [address] [place], [address] WBC Normal 4.4-11.0 [facility] Comment on above: Result Comment: Canc elled via OM: Order cancelled - Patient discharged Performed By: #### L 500.2500, L100.0100 #### [facility] [address] [place], [address] Basic Metabolic Profile (BMP )on 05-11-2025 BUN Normal 4-19 [facility] Comment on above: Result Comment: Canc elled via OM: Order cancelled - Patient discharged Performed By: #### L 500.2500, L100.0100 #### [facility] [address] [place], [address] BUN/CRE Normal 10-20 [facility] Comment on above: Result Comment: Canc elled via OM: Order cancelled - Patient discharged Performed By: #### L 500.2500, L100.0100 #### [facility] [address] [place], [address] Calcium Normal 7.6-11.0 [facility] Comment on above: Result Comment: Canc elled via OM: Order cancelled - Patient discharged Performed By: #### L 500.2500, L100.0100 #### [facility] [address] [place], [address] CL Normal 98-108 [facility] Comment on above: Result Comment: Canc elled via OM: Order cancelled - Patient discharged Performed By: #### L 500.2500, L100.0100 #### [facility] [address] [place], [address] CO2 Normal 21.0-32.0 [facility] Comment on above: Result Comment: Canc elled via OM: Order cancelled - Patient discharged Performed By: #### L 500.2500, L100.0100 #### [facility] [address] [place], [address] CREAT,SERUM Normal 0.70-1.20 [facility] Comment on above: Result Comment: Canc elled via OM: Order cancelled - Patient discharged Performed By: #### L 500.2500, L100.0100 #### [facility] [address] [place], [address] eGFR Normal >60 [facility] Comment on above: Result Comment: Canc elled via OM: Order cancelled - Patient discharged Performed By: #### L 500.2500, L100.0100 #### [facility] [address] [place], [address] GAP Normal 5-15 [facility] Comment on above: Result Comment: Canc elled via OM: Order cancelled - Patient discharged Performed By: #### L 500.2500, L100.0100 #### [facility] [address] [place], [address] GLU Normal 70-99 [facility] Comment on above: Result Comment: Canc elled via OM: Order cancelled - Patient discharged Performed By: #### L 500.2500, L100.0100 #### [facility] [address] [place], [address] Potassium Normal 3.3-5.1 [facility] Comment on above: Result Comment: Canc elled via OM: Order cancelled - Patient discharged Performed By: #### L 500.2500, L100.0100 #### [facility] [address] [place], [address] Basic Metabolic Profile (BMP) Normal 133-145 [facility] Comment on above: Result Comment: Canc elled via OM: Order cancelled - Patient discharged Performed By: #### L 500.2500, L100.0100 #### [facility] [address] [place], [address] CBC W/Diff, Automatedon 11- Absolute Neut Normal 2.0-7.7 [facility] Comment on above: Result Comment: Canc elled via OM: Order cancelled - Patient discharged Performed By: #### L 500.2500, L100.0100 #### [facility] [address] [place], [address] HCT Normal 37-47 [facility] Comment on above: Result Comment: Canc elled via OM: Order cancelled - Patient discharged Performed By: #### L 500.2500, L100.0100 #### [facility] [address] [place], [address] HGB Normal 12.0-15.0 [facility] Comment on above: Result Comment: Canc elled via OM: Order cancelled - Patient discharged Performed By: #### L 500.2500, L100.0100 #### [facility] [address] [place], [address] MCH Normal 27.0-32.0 [facility] Comment on above: Result Comment: Canc elled via OM: Order cancelled - Patient discharged Performed By: #### L 500.2500, L100.0100 #### [facility] [address] [place], [address] MCHC Normal 32-36 [facility] Comment on above: Result Comment: Canc elled via OM: Order cancelled - Patient discharged Performed By: #### L 500.2500, L100.0100 #### [facility] [address] [place], [address] MCV Normal 81-99 [facility] Comment on above: Result Comment: Canc elled via OM: Order cancelled - Patient discharged Performed By: #### L 500.2500, L100.0100 #### [facility] [address] [place], [address] NEUT% Normal 47-70 [facility] Comment on above: Result Comment: Canc elled via OM: Order cancelled - Patient discharged Performed By: #### L 500.2500, L100.0100 #### [facility] [address] [place], [address] PLT Normal 150-450 [facility] Comment on above: Result Comment: Canc elled via OM: Order cancelled - Patient discharged Performed By: #### L 500.2500, L100.0100 #### [facility] [address] [place], [address] RBC Normal 4.2-5.4 [facility] Comment on above: Result Comment: Canc elled via OM: Order cancelled - Patient discharged Performed By: #### L 500.2500, L100.0100 #### [facility] [address] [place], [address] RDW CV Normal 11.6-14.6 [facility] Comment on above: Result Comment: Canc elled via OM: Order cancelled - Patient discharged Performed By: #### L 500.2500, L100.0100 #### [facility] [address] [place], [address] RDW SD Normal 35.1-43.9 [facility] Comment on above: Result Comment: Canc elled via OM: Order cancelled - Patient discharged Performed By: #### L 500.2500, L100.0100 #### [facility] [address] [place], [address] WBC Normal 4.4-11.0 [facility] Comment on above: Result Comment: Canc elled via OM: Order cancelled - Patient discharged Performed By: #### L 500.2500, L100.0100 #### [facility] [address] [place], [address] Basic Metabolic Profile (BMP )on 05-10-2025 BUN Normal 4-19 [facility] Comment on above: Result Comment: Canc elled via OM: Order cancelled - Patient discharged Performed By: #### L 500.2500, L100.0100 #### [facility] [address] [place], [address] BUN/CRE Normal 10-20 [facility] Comment on above: Result Comment: Canc elled via OM: Order cancelled - Patient discharged Performed By: #### L 500.2500, L100.0100 #### [facility] [address] [place], [address] Calcium Normal 7.6-11.0 [facility] Comment on above: Result Comment: Canc elled via OM: Order cancelled - Patient discharged Performed By: #### L 500.2500, L100.0100 #### [facility] [address] [place], [address] CL Normal 98-108 [facility] Comment on above: Result Comment: Canc elled via OM: Order cancelled - Patient discharged Performed By: #### L 500.2500, L100.0100 #### [facility] [address] [place], [address] CO2 Normal 21.0-32.0 [facility] Comment on above: Result Comment: Canc elled via OM: Order cancelled - Patient discharged Performed By: #### L 500.2500, L100.0100 #### [facility] [address] [place], [address] CREAT,SERUM Normal 0.70-1.20 [facility] Comment on above: Result Comment: Canc elled via OM: Order cancelled - Patient discharged Performed By: #### L 500.2500, L100.0100 #### [facility] [address] [place], [address] eGFR Normal >60 [facility] Comment on above: Result Comment: Canc elled via OM: Order cancelled - Patient discharged Performed By: #### L 500.2500, L100.0100 #### [facility] [address] [place], [address] GAP Normal 5-15 [facility] Comment on above: Result Comment: Canc elled via OM: Order cancelled - Patient discharged Performed By: #### L 500.2500, L100.0100 #### [facility] [address] [place], [address] GLU Normal 70-99 [facility] Comment on above: Result Comment: Canc elled via OM: Order cancelled - Patient discharged Performed By: #### L 500.2500, L100.0100 #### [facility] [address] [place], [address] Potassium Normal 3.3-5.1 [facility] Comment on above: Result Comment: Canc elled via OM: Order cancelled - Patient discharged Performed By: #### L 500.2500, L100.0100 #### [facility] [address] [place], [address] Basic Metabolic Profile (BMP) Normal 133-145 [facility] Comment on above: Result Comment: Canc elled via OM: Order cancelled - Patient discharged Performed By: #### L 500.2500, L100.0100 #### [facility] [address] [place], [address] CBC W/Diff, Automatedon 11-1 Absolute Neut Normal 2.0-7.7 [facility] Comment on above: Result Comment: Canc elled via OM: Order cancelled - Patient discharged Performed By: #### L 500.2500, L100.0100 #### [facility] [address] [place], [address] HCT Normal 37-47 [facility] Comment on above: Result Comment: Canc elled via OM: Order cancelled - Patient discharged Performed By: #### L 500.2500, L100.0100 #### [facility] [address] [place], [address] HGB Normal 12.0-15.0 [facility] Comment on above: Result Comment: Canc elled via OM: Order cancelled - Patient discharged Performed By: #### L 500.2500, L100.0100 #### [facility] [address] [place], [address] MCH Normal 27.0-32.0 [facility] Comment on above: Result Comment: Canc elled via OM: Order cancelled - Patient discharged Performed By: #### L 500.2500, L100.0100 #### [facility] [address] [place], [address] MCHC Normal 32-36 [facility] Comment on above: Result Comment: Canc elled via OM: Order cancelled - Patient discharged Performed By: #### L 500.2500, L100.0100 #### [facility] [address] [place], [address] MCV Normal 81-99 [facility] Comment on above: Result Comment: Canc elled via OM: Order cancelled - Patient discharged Performed By: #### L 500.2500, L100.0100 #### [facility] [address] [place], [address] NEUT% Normal 47-70 [facility] Comment on above: Result Comment: Canc elled via OM: Order cancelled - Patient discharged Performed By: #### L 500.2500, L100.0100 #### [facility] [address] [place], [address] PLT Normal 150-450 [facility] Comment on above: Result Comment: Canc elled via OM: Order cancelled - Patient discharged Performed By: #### L 500.2500, L100.0100 #### [facility] [address] [place], [address] RBC Normal 4.2-5.4 [facility] Comment on above: Result Comment: Canc elled via OM: Order cancelled - Patient discharged Performed By: #### L 500.2500, L100.0100 #### [facility] [address] [place], [address] RDW CV Normal 11.6-14.6 [facility] Comment on above: Result Comment: Canc elled via OM: Order cancelled - Patient discharged Performed By: #### L 500.2500, L100.0100 #### [facility] [address] [place], [address] RDW SD Normal 35.1-43.9 [facility] Comment on above: Result Comment: Canc elled via OM: Order cancelled - Patient discharged Performed By: #### L 500.2500, L100.0100 #### [facility] [address] [place], [address] WBC Normal 4.4-11.0 [facility] Comment on above: Result Comment: Canc elled via OM: Order cancelled - Patient discharged Performed By: #### L 500.2500, L100.0100 #### [facility] [address] [place], [address] Bacteriaon 05-06-2025 Bacteria identified Cx Nom (Bld) [facility] Comment on above: Performed By: #### 6 00-7 ####CALE Roth ([id number])[facility] ([facility])[address] [place] [address] Blood type and Indirect anti body screen panel (Bld)on 05-05-2025 ABO group Nom (Bld) B Normal [facility] Comment on above: Performed By: #### 3 4532-2 ####CALE Roth ([id number])[facility] ([facility])[address] [place] [address] Blood group antibody screen Ql Negative Normal [facility] Comment on above: Performed By: #### 3 4532-2 ####CALE Roth ([id number])[facility] ([facility])[address] [facility] [place] [address] D Ag Ql (Bld) Positive [facility] Comment on above: Performed By: #### 3 4532-2 ####CALE Roth ([id number])[facility] ([facility])[address] [facility] [place] [address] C reactive proteinon 025 CRP [Mass/Vol] 0.36 mg/dL Normal <1.00 [facility] Comment on above: Performed By: #### 1 988-5 ####CALE Roth ([id number])[facility] ([facility])[address] [place] [address] CBC W Auto Differential pane l (Bld)on 05-05-2025 Basophils (Bld) [#/Vol] 0.06 x10*3/uL Normal 0.00-0.10 [facility] Comment on above: Performed By: #### 5 7021-8 ####CALE Roth ([id number])[facility] ([facility])[address] [place] [address] Basophils/100 WBC (Bld) 1.0 % Normal 0.0-2.0 [facility] Comment on above: Performed By: #### 5 7021-8 ####CALE Roth ([id number])[facility] ([facility])[address] [place] [address] Eosinophils (Bld) [#/Vol] 0.10 x10*3/uL Normal 0.00-0.70 [facility] Comment on above: Performed By: #### 5 7021-8 ####CALE Roth ([id number])[facility] ([facility])[id number] [place] [address] Eosinophils/100 WBC (Bld) 1.7 % Normal 0.0-6.0 [facility] Comment on above: Performed By: #### 5 7021-8 ####CALE Roth ([id number])[facility] ([facility])[id number] [place] [address] Erythrocyte distribution width (RBC) [Ratio] 12.6 % Normal 11.5-14.5 [facility] Comment on above: Performed By: #### 5 7021-8 ####CALE Roth ([id number])[facility] ([facility])[address] [place] [address] Hematocrit (Bld) [Volume fraction] 39.8 % Normal 36.0-46.0 [facility] Comment on above: Performed By: #### 5 7021-8 ####CALE Roth ([id number])[facility] ([facility])[address] [place] [address] Hemoglobin (Bld) [Mass/Vol] 14.1 g/dL Normal 12.0-16.0 [facility] Comment on above: Performed By: #### 5 7021-8 ####CALE Roth ([id number])[facility] ([facility])[address] [place] [address] Immature granulocytes (Bld) [#/Vol] 0.06 x10*3/uL Normal 0.00-0.70 [facility] Comment on above: Performed By: #### 5 7021-8 ####CALE Roth ([id number])[facility] ([facility])[id number] [place] [address] Immature granulocytes/100 WBC (Bld) 1.0 % High 0.0-0.9 [facility] Comment on above: Result Comment: Aleisha ture Granulocyte Count (IG) includes promyelocytes, myelocytes and metamyelocytes but does not include bands. Percent differential counts (%) should be interpreted in the context of the absolute cell counts (cells/UL). Performed By: #### 5 7021-8 ####CALE Roth ([id number])[facility] ([facility])[address] [place] [address] Lymphocytes (Bld) [#/Vol] 2.08 x10*3/uL Normal 1.20-4.80 [facility] Comment on above: Performed By: #### 5 7021-8 ####CALE Roth ([id number])[facility] ([facility])[address] [place] [address] Lymphocytes/100 WBC (Bld) 34.6 % Normal 13.0-44.0 [facility] Comment on above: Performed By: #### 5 7021-8 ####CALE Roth ([id number])[facility] ([facility])[address] [place] [address] MCH (RBC) [Entitic mass] 28.7 pg Normal 26.0-34.0 [facility] Comment on above: Performed By: #### 5 7021-8 ####CALE Roth ([id number])[facility] ([facility])[address] [place] [address] MCHC (RBC) [Mass/Vol] 35.4 g/dL Normal 32.0-36.0 [facility] Comment on above: Performed By: #### 5 7021-8 ####CALE Roth ([id number])[facility] ([facility])[address] [place] [address] MCV (RBC) [Entitic vol] 81 fL Normal 80-100 [facility] Comment on above: Performed By: #### 5 7021-8 ####CALE Roth ([id number])[facility] ([facility])[address] [place] [address] Monocytes (Bld) [#/Vol] 0.67 x10*3/uL Normal 0.10-1.00 [facility] Comment on above: Performed By: #### 5 7021-8 ####CALE Roth ([id number])[facility] ([facility])[address] [place] [address] Monocytes/100 WBC (Bld) 11.1 % Normal 2.0-10.0 [facility] Comment on above: Performed By: #### 5 7021-8 ####CALE Roth ([id number])[facility] ([facility])[address] [place] [address] Neutrophils (Bld) [#/Vol] 3.05 x10*3/uL Normal 1.20-7.70 [facility] Comment on above: Result Comment: Perc ent differential counts (%) should be interpreted in the context of the absolute cell counts (cells/uL). Performed By: #### 5 7021-8 ####CALE Roth ([id number])[facility] ([facility])[address] [place] [address] Neutrophils/100 WBC (Bld) 50.6 % Normal 40.0-80.0 [facility] Comment on above: Performed By: #### 5 7021-8 ####CALE Roth ([id number])[facility] ([facility])[address] [place] [address] Nucleated RBC/100 WBC (Bld) [Ratio] 0.0 /100 WBCs Normal 0.0-0.0 [facility] Comment on above: Performed By: #### 5 7021-8 ####CALE CAI L ([id number])[facility] ([facility])[address] [place] [address] Platelets (Bld) [#/Vol] 197 x10*3/uL Normal 150-450 [facility] Comment on above: Performed By: #### 5 7021-8 ####CALE Roth ([id number])[facility] ([facility])[address] [place] [address] RBC (Bld) [#/Vol] 4.91 x10*6/uL Normal 4.00-5.20 [facility] Comment on above: Performed By: #### 5 7021-8 ####CALE Roth ([id number])[facility] ([facility])[address] [place] [address] WBC (Bld) [#/Vol] 6.0 x10*3/uL Normal 4.4-11.3 [facility] Comment on above: Performed By: #### 5 7021-8 ####CALE Roth ([id number])[facility] ([facility])[address] [place] [address] CT TRANSFER OF OUTSIDE FILMS on 05-05-2025 CT TRANSFER OF OUTSIDE FILMS Outside images for comparison or treatment purposes, not interpreted by Radiologists. Normal [facility] Choriogonadotropin.beta subu niton 05-05-2025 HCG.beta subunit Qn m[IU]/mL Normal <5 [facility] Comment on above: Order Comment: Total HCG measurement is performed using the Siemens Atellica immunoassay which detects intact HCG and free beta HCG subunit. This test is not indicated for use as a tumor marker. HCG testing is performed using a different test methodology at [facility] than other [facility]. Direct result comparison should only be made within the same method. Performed By: #### 2 1198-7 ####CALE Roth ([id number])[facility] ([facility])[address] [place] [address] Comprehensive metabolic 2000 panelon 05-05-2025 Albumin BCP dye [Mass/Vol] 4.1 g/dL Normal 3.4-5.0 [facility] Comment on above: Performed By: #### 2 4323-8 ####CALE Roth ([id number])[facility] ([facility])[address] [place] [address] ALP [Catalytic activity/Vol] 83 U/L Normal 33-110 [facility] Comment on above: Performed By: #### 2 4323-8 ####CALE Roth ([id number])[facility] ([facility])[address] [place] [address] ALT With P-5'-P [Catalytic activity/Vol] 34 U/L Normal 7-45 [facility] Comment on above: Result Comment: Rehana ents treated with Sulfasalazine may generate falsely decreased results for ALT. Performed By: #### 2 4323-8 ####CALE Roth ([id number])[facility] ([facility])[address] [place] [address] Anion gap [Moles/Vol] 16 mmol/L Normal 10-20 [facility] Comment on above: Performed By: #### 2 4323-8 ####CALE Roth ([id number])[facility] ([facility])[address] [place] [address] AST With P-5'-P [Catalytic activity/Vol] 32 U/L Normal 9-39 [facility] Comment on above: Result Comment: MILD HEMOLYSIS DETECTED. The result may be falsely elevated due to hemolysis or other interferents. Clinical correlation is recommended. Repeat testing may be considered. Performed By: #### 2 4323-8 ####CALE Roth ([id number])[facility] ([facility])[address] [place] [address] Bilirubin [Mass/Vol] 0.4 mg/dL Normal 0.0-1.2 [facility] Comment on above: Performed By: #### 2 4323-8 ####CALE Roth ([id number])[facility] ([facility])[address] [place] [address] Calcium [Mass/Vol] 10.4 mg/dL Normal 8.6-10.6 [facility] Comment on above: Performed By: #### 2 4323-8 ####CALE Roth ([id number])[facility] ([facility])[address] [place] [address] Chloride [Moles/Vol] 95 mmol/L Low 98-107 [facility] Comment on above: Performed By: #### 2 4323-8 ####CALE Roth ([id number])[facility] ([facility])[address] [place] [address] CO2 [Moles/Vol] 31 mmol/L Normal 21-32 [facility] Comment on above: Result Comment: Bica rbonate results may be falsely elevated when Lactate Dehydrogenase (LDH) concentrations exceed 2,000 U/L due to a temporary reagent manufacturing issue. If significantly elevated LDH levels are suspected, interpret bicarbonate results with caution, correlate with the patient's clinical status, and consider confirming CO2 values using a blood gas analyzer. Performed By: #### 2 4323-8 ####CALE Roth ([id number])[facility] ([facility])[address] [place] [address] Creatinine [Mass/Vol] 0.28 mg/dL Low 0.50-1.05 [facility] Comment on above: Performed By: #### 2 4323-8 ####CALE Roth ([id number])[facility] ([facility])[address] [place] [address] Glomerular filtration rate >90 Normal >60 [facility] Comment on above: Result Comment: Calc ulations of estimated GFR are performed using the 2020 CKD-EPI Study Refit equation without the race variable for the IDMS-Traceable creatinine methods.https://jasn.asnjournals.org/content//ASN .1071107455 Performed By: #### 2 4323-8 ####CALE Roth ([id number])[facility] ([facility])[address] [place] [address] Glucose [Mass/Vol] 95 mg/dL Normal 74-99 [facility] Comment on above: Performed By: #### 2 4323-8 ####CALE Roth ([id number])[facility] ([facility])[address] [place] [address] Potassium [Moles/Vol] 5.1 mmol/L Normal 3.5-5.3 [facility] Comment on above: Result Comment: MILD HEMOLYSIS DETECTED. The result may be falsely elevated due to hemolysis or other interferents. Clinical correlation is recommended. Repeat testing may be considered. Performed By: #### 2 4323-8 ####CALE CAI L ([id number])[facility] ([facility])[address] [place] [address] Protein [Mass/Vol] 7.9 g/dL Normal 6.4-8.2 [facility] Comment on above: Performed By: #### 2 4323-8 ####CALE PARKERTZER L ([id number])[facility] ([facility])[address] [place] [address] Sodium [Moles/Vol] 137 mmol/L Normal 136-145 [facility] Comment on above: Performed By: #### 2 4323-8 ####CALE TOSCANOMOTZER L ([id number])[facility] ([facility])[address] [place] [address] Urea nitrogen [Mass/Vol] 10 mg/dL Normal 6-23 [facility] Comment on above: Performed By: #### 2 4323-8 ####CALE TOSCANOMOTZER L ([id number])[facility] ([facility])[address] [place] [address] ECG 12-LEADon 05-05-2025 ECG 12-LEAD Ventricular Rate 113 Atrial Rate 113 P-R Interval 136 QRS Duration 78 Q-T Interval 324 QTC Calculation(Bazett) 444 P [place] 72 R [place] 91 T [place] 74 QRS Count 19 Q Onset 220 [...] and clinical correlation Confirmed by Joaquina Lopez ([id number]) on 05/05/2025 4:56:53 AM Normal [facility] ESR Westergren method (Bld) [Velocity]on 11-12-2025 ESR (Bld) [Velocity] 22 mm/h High 0-20 [facility] Comment on above: Performed By: #### 4 537-7 ####CALE Roth ([id number])[facility] ([facility])[id number] [place] [address] MR BRAIN W AND WO IV CONTRAS Ton 05-05-2025 MR BRAIN W AND WO IV CONTRAST Normal [facility] PT and aPTT panel Coag (PPP) on 05-05-2025 aPTT Coag (PPP) [Time] 26 s Normal 26-36 [facility] Comment on above: Order Comment: The A PTT is no longer used for monitoring Unfractionated Heparin Therapy. For monitoring Heparin Therapy, use the Heparin Assay. Performed By: #### 3 4529-8 ####CALE Roth ([id number])[facility] ([facility])[id number] [place] [address] INR Coag (PPP) [Relative time] 1.1 Normal 0.9-1.1 [facility] Comment on above: Order Comment: The A PTT is no longer used for monitoring Unfractionated Heparin Therapy. For monitoring Heparin Therapy, use the Heparin Assay. Performed By: #### 3 4529-8 ####CALE Roth ([id number])[facility] ([facility])[id number] [place] [address] PT Coag (PPP) [Time] 12.2 s Normal 9.8-12.4 [facility] Comment on above: Order Comment: The A PTT is no longer used for monitoring Unfractionated Heparin Therapy. For monitoring Heparin Therapy, use the Heparin Assay. Performed By: #### 3 4529-8 ####CALE Roth ([id number])[facility] ([facility])[id number] [place] [address] XR CHEST 1 VIEWon 05-05-2025 XR CHEST 1 VIEW Normal [facility] XR SHUNT SERIESon 05-05-2025 XR SHUNT SERIES Normal [facility] Basic Metabolic Profile (BMP )on 05-04-2025 BUN/CRE 23.3 RATIO High 10-20 [facility] Comment on above: Performed By: #### L 100.0100, L500.2500 #### [facility] [address] [place], [address] Calcium [Mass/Vol] 9.3 mg/dL Normal 7.6-11.0 [facility] Comment on above: Performed By: #### L 100.0100, L500.2500 #### [facility] [address] [place], [address] Chloride [Moles/Vol] 97 mmol/L Low 98-108 [facility] Comment on above: Performed By: #### L 100.0100, L500.2500 #### [facility] [address] [place], [address] CO2 [Moles/Vol] 23.2 mmol/L Normal 21.0-32.0 [facility] Comment on above: Performed By: #### L 100.0100, L500.2500 #### [facility] [address] [place], [address] Creatinine [Mass/Vol] 0.35 mg/dL Low 0.70-1.20 [facility] Comment on above: Performed By: #### L 100.0100, L500.2500 #### [facility] [address] [place], [address] ECRCL 155.26 ml/min Normal 50-250 [facility] Comment on above: Performed By: #### L 100.0100, L500.2500 #### [facility] [address] [place], [address] GAP 17 High 5-15 [facility] Comment on above: Performed By: #### L 100.0100, L500.2500 #### [facility] [address] [place], [address] GFR/1.73 sq M.predicted among non-blacks MDRD (S/P/Bld) [Vol rate/Area] 148 mL/min/{1.73_m2} Normal >60 [facility] Comment on above: Result Comment: mL/m in/1.73m2 CKD-EPI Creatinine Equation (2020) Performed By: #### L 100.0100, L500.2500 #### [facility] [address] [place], [address] Glucose [Mass/Vol] 139 mg/dL High 70-99 [facility] Comment on above: Performed By: #### L 100.0100, L500.2500 #### [facility] [address] [place], [address] Potassium [Moles/Vol] 3.7 mmol/L Normal 3.3-5.1 [facility] Comment on above: Performed By: #### L 100.0100, L500.2500 #### [facility] [address] [place], [address] Sodium [Moles/Vol] 137 mmol/L Normal 133-145 [facility] Comment on above: Performed By: #### L 100.0100, L500.2500 #### [facility] [address] [place], [address] Urea nitrogen [Mass/Vol] 8 mg/dL Normal 4-19 [facility] Comment on above: Performed By: #### L 100.0100, L500.2500 #### [facility] [address] [place], [address] Bedside Glucoseon 05-04-2025 [place] GLU 120 mg/dL High 74-106 [facility] [facility] Comment on above: Result Comment: BONNIE AL OF PATIENT CARE PER NURSING PROTOCOL Performed By: #### L 500.2500, L100.0100 #### [facility] [address] [place], [address] CBC W/Diff, Automatedon 04-245 Absolute Lymph 1.66 X10 3/uL Normal 0.83-4.51 [facility] Comment on above: Performed By: #### L 100.0100, L500.2500 #### [facility] [address] [place], [address] Absolute Neut 4.0 X10 3/uL Normal 2.0-7.7 [facility] Comment on above: Performed By: #### L 100.0100, L500.2500 #### [facility] [address] [place], [address] Basophils/100 WBC (Bld) 0.3 % Normal 0-1 [facility] Comment on above: Performed By: #### L 100.0100, L500.2500 #### [facility] [address] [place], [address] Eosinophils/100 WBC (Bld) 1.9 % Normal 0-5 [facility] Comment on above: Performed By: #### L 100.0100, L500.2500 #### [facility] [address] [place], [address] Erythrocyte distribution width (RBC) [Ratio] 12.9 % Normal 11.6-14.6 [facility] Comment on above: Performed By: #### L 100.0100, L500.2500 #### [facility] [address] [place], [address] Hematocrit (Bld) [Volume fraction] 37.7 % Normal 37-47 [facility] Comment on above: Performed By: #### L 100.0100, L500.2500 #### [facility] [address] [place], [address] Hemoglobin (Bld) [Mass/Vol] 12.7 g/dL Normal 12.0-15.0 [facility] Comment on above: Performed By: #### L 100.0100, L500.2500 #### [facility] [address] [place], [address] IG% 1.200 High 0.0-0.9 [facility] Comment on above: Result Comment: IG% - Immature Granulocytes (promyelocytes, myelocytes and metamyelocytes) > 1% indicates that a LEFT SHIFT is Present. Performed By: #### L 100.0100, L500.2500 #### [facility] [address] [place], [address] Lymphocytes/100 WBC (Bld) 25.7 % Normal 19-41 [facility] Comment on above: Performed By: #### L 100.0100, L500.2500 #### [facility] [address] [place], [address] MCH (RBC) [Entitic mass] 28.7 pg Normal 27.0-32.0 [facility] Comment on above: Performed By: #### L 100.0100, L500.2500 #### [facility] [address] [place], [address] MCHC (RBC) [Mass/Vol] 33.7 g/dL Normal 32-36 [facility] Comment on above: Performed By: #### L 100.0100, L500.2500 #### [facility] [address] [place], [address] MCV (RBC) [Entitic vol] 85.3 fL Normal 81-99 [facility] Comment on above: Performed By: #### L 100.0100, L500.2500 #### [facility] [address] [place], [address] Monocytes/100 WBC (Bld) 9.6 % Normal 0-10 [facility] Comment on above: Performed By: #### L 100.0100, L500.2500 #### [facility] [address] [place], [address] Neutrophils/100 WBC (Bld) 61.3 % Normal 47-70 [facility] Comment on above: Performed By: #### L 100.0100, L500.2500 #### [facility] [address] [place], [address] Nucleated RBC (Bld) [#/Vol] 0 10*3/uL Normal 0-5 [facility] Comment on above: Performed By: #### L 100.0100, L500.2500 #### [facility] [address] [place], [address] Platelet mean volume (Bld) [Entitic vol] 11.1 fL Normal 6.2-12.0 [facility] Comment on above: Performed By: #### L 100.0100, L500.2500 #### [facility] [address] [place], [address] Platelets (Bld) [#/Vol] 231 10*3/uL Normal 150-450 [facility] Comment on above: Performed By: #### L 100.0100, L500.2500 #### [facility] [address] [place], [address] RBC (Bld) [#/Vol] 4.42 10*6/uL Normal 4.2-5.4 [facility] Comment on above: Performed By: #### L 100.0100, L500.2500 #### [facility] [address] [place], [address] RDW SD 39.6 fl Normal 35.1-43.9 [facility] Comment on above: Performed By: #### L 100.0100, L500.2500 #### [facility] [address] [place], [address] WBC (Bld) [#/Vol] 6.5 10*3/uL Normal 4.4-11.0 [facility] Comment on above: Performed By: #### L 100.0100, L500.2500 #### [facility] [address] [place], [address] Basic Metabolic Profile (BMP )on 05-03-2025 BUN Normal 4-19 [facility] Comment on above: Result Comment: Canc elled via OM: Order cancelled - Patient discharged Performed By: #### L 100.0100, L500.2500 #### [facility] [address] [place], [address] BUN/CRE Normal 10-20 [facility] Comment on above: Result Comment: Canc elled via OM: Order cancelled - Patient discharged Performed By: #### L 100.0100, L500.2500 #### [facility] [address] [place], [address] Calcium Normal 7.6-11.0 [facility] Comment on above: Result Comment: Canc elled via OM: Order cancelled - Patient discharged Performed By: #### L 100.0100, L500.2500 #### [facility] [address] [place], [address] CL Normal 98-108 [facility] Comment on above: Result Comment: Canc elled via OM: Order cancelled - Patient discharged Performed By: #### L 100.0100, L500.2500 #### [facility] [address] [place], [address] CO2 Normal 21.0-32.0 [facility] Comment on above: Result Comment: Canc elled via OM: Order cancelled - Patient discharged Performed By: #### L 100.0100, L500.2500 #### [facility] [address] [place], [address] CREAT,SERUM Normal 0.70-1.20 [facility] Comment on above: Result Comment: Canc elled via OM: Order cancelled - Patient discharged Performed By: #### L 100.0100, L500.2500 #### [facility] [address] [place], [address] eGFR Normal >60 [facility] Comment on above: Result Comment: Canc elled via OM: Order cancelled - Patient discharged Performed By: #### L 100.0100, L500.2500 #### [facility] [address] [place], [address] GAP Normal 5-15 [facility] Comment on above: Result Comment: Canc elled via OM: Order cancelled - Patient discharged Performed By: #### L 100.0100, L500.2500 #### [facility] [address] [place], [address] GLU Normal 70-99 [facility] Comment on above: Result Comment: Canc elled via OM: Order cancelled - Patient discharged Performed By: #### L 100.0100, L500.2500 #### [facility] [address] [place], [address] Potassium Normal 3.3-5.1 [facility] Comment on above: Result Comment: Canc elled via OM: Order cancelled - Patient discharged Performed By: #### L 100.0100, L500.2500 #### [facility] [address] [place], [address] Basic Metabolic Profile (BMP) Normal 133-145 [facility] Comment on above: Result Comment: Canc elled via OM: Order cancelled - Patient discharged Performed By: #### L 100.0100, L500.2500 #### [facility] [address] [place], [address] Bedside Glucoseon 05-03-2025 FINGERSTICK GLU 147 mg/dL High 74-106 [facility] Comment on above: Result Comment: BONNIE CRYSTALENT OF PATIENT CARE PER NURSING PROTOCOL Performed By: #### L 100.0100, L500.2500 #### [facility] [address] [place], [address] FINGERSTICK GLU 124 mg/dL High 74-106 [facility] Comment on above: Result Comment: BONNIE AL OF PATIENT CARE PER NURSING PROTOCOL Performed By: #### L 500.2500, L100.0100 #### [facility] [address] [place], [address] Brain/Head without Contrasto n 05-03-2025 Brain/Head without Contrast [facility] Imaging Services [address] [place] [address] Brain/Head without Contrast MR#: [id number] Acct: [id number] Name: KIMANI COHEN Rep #: [id number] : 2000 F 24 From: Arian Wills MD PCP: Dr. Yessenia Dixon MD Status: REG CLI Study: Brain/Head without Contrast Date of Exam: 04/24 Exam# [id number] Ordering Dr: Benjy Gonzalez MD PROCEDURE: BRAIN/HEAD [...] Yessenia Dixon MD; Dr. Benjy Gonzalez MD Strapper Operator: Signed Normal [facility] CBC W/Diff, Automatedon 11-1 Absolute Neut Normal 2.0-7.7 [facility] Comment on above: Result Comment: Canc elled via OM: Order cancelled - Patient discharged Performed By: #### L 100.0100, L500.2500 #### [facility] [address] [place], [address] HCT Normal 37-47 [facility] Comment on above: Result Comment: Canc elled via OM: Order cancelled - Patient discharged Performed By: #### L 100.0100, L500.2500 #### [facility] [address] [place], [address] HGB Normal 12.0-15.0 [facility] Comment on above: Result Comment: Canc elled via OM: Order cancelled - Patient discharged Performed By: #### L 100.0100, L500.2500 #### [facility] [address] [place], [address] MCH Normal 27.0-32.0 [facility] Comment on above: Result Comment: Canc elled via OM: Order cancelled - Patient discharged Performed By: #### L 100.0100, L500.2500 #### [facility] [address] [place], [address] MCHC Normal 32-36 [facility] Comment on above: Result Comment: Canc elled via OM: Order cancelled - Patient discharged Performed By: #### L 100.0100, L500.2500 #### [facility] [address] [place], [address] MCV Normal 81-99 [facility] Comment on above: Result Comment: Canc elled via OM: Order cancelled - Patient discharged Performed By: #### L 100.0100, L500.2500 #### [facility] [address] [place], [address] NEUT% Normal 47-70 [facility] Comment on above: Result Comment: Canc elled via OM: Order cancelled - Patient discharged Performed By: #### L 100.0100, L500.2500 #### [facility] [address] [place], [address] PLT Normal 150-450 [facility] Comment on above: Result Comment: Canc elled via OM: Order cancelled - Patient discharged Performed By: #### L 100.0100, L500.2500 #### [facility] [address] [place], [address] RBC Normal 4.2-5.4 [facility] Comment on above: Result Comment: Canc elled via OM: Order cancelled - Patient discharged Performed By: #### L 100.0100, L500.2500 #### [facility] [address] [place], [address] RDW CV Normal 11.6-14.6 [facility] Comment on above: Result Comment: Canc elled via OM: Order cancelled - Patient discharged Performed By: #### L 100.0100, L500.2500 #### [facility] [address] [place], [address] RDW SD Normal 35.1-43.9 [facility] Comment on above: Result Comment: Canc elled via OM: Order cancelled - Patient discharged Performed By: #### L 100.0100, L500.2500 #### [facility] [address] [place], [address] WBC Normal 4.4-11.0 [facility] Comment on above: Result Comment: Canc elled via OM: Order cancelled - Patient discharged Performed By: #### L 100.0100, L500.2500 #### [facility] [address] [place], [address] Bedside Glucoseon 05-02-2025 FINGERSTICK GLU 115 mg/dL High 74-106 [facility] Comment on above: Result Comment: BONNIE GEMENT OF PATIENT CARE PER NURSING PROTOCOL Performed By: #### L 501.080 #### [facility] [address] [place], [address] FINGERSTICK GLU 139 mg/dL High -106 [facility] Comment on above: Result Comment: BONNIE GEMENT OF PATIENT CARE PER NURSING PROTOCOL Performed By: #### L 500.2500, L100.0100 #### [facility] [address] [place], [address] Bedside Glucoseon 05-01-2025 FINGERSTICK GLU 83 mg/dL Normal 74-106 [facility] Comment on above: Result Comment: BONNIE GEMENT OF PATIENT CARE PER NURSING PROTOCOL Performed By: #### L 500.2500, L100.0100 #### [facility] [address] [place], [address] FINGERSTICK GLU 142 mg/dL High 74-106 [facility] Comment on above: Result Comment: BONNIE GEMENT OF PATIENT CARE PER NURSING PROTOCOL Performed By: #### L 500.2500, L100.0100 #### [facility] [address] [place], [address] Bedside Glucoseon 04-30-2025 FINGERSTICK GLU 108 mg/dL High -106 [facility] Comment on above: Result Comment: BONNIE GEMENT OF PATIENT CARE PER NURSING PROTOCOL Performed By: #### L 100.0100, L500.2500 #### [facility] [address] [place], [address] FINGERSTICK GLU 156 mg/dL High 74-106 [facility] Comment on above: Result Comment: BONNIE GEMENT OF PATIENT CARE PER NURSING PROTOCOL Performed By: #### L 500.2500, L100.0100 #### [facility] [address] [place], [address] Bedside Glucoseon 04-29-2025 FINGERSTICK GLU 140 mg/dL High 74-106 [facility] Comment on above: Result Comment: BONNIE GEMENT OF PATIENT CARE PER NURSING PROTOCOL Performed By: #### L 100.0100, L500.2500 #### [facility] [address] [place], [address] FINGERSTICK GLU 173 mg/dL High 74-106 [facility] Comment on above: Result Comment: BONNIE GEMENT OF PATIENT CARE PER NURSING PROTOCOL Performed By: #### L 100.0100, L500.2500 #### [facility] [address] [place], [address] Bedside Glucoseon 04-28-2025 FINGERSTICK GLU 92 mg/dL Normal 74-106 [facility] Comment on above: Result Comment: BONNIE GEMENT OF PATIENT CARE PER NURSING PROTOCOL Performed By: #### L 100.0100, L500.2500 #### [facility] [address] [place], [address] FINGERSTICK GLU 119 mg/dL High 74-106 [facility] Comment on above: Result Comment: BONNIE GEMENT OF PATIENT CARE PER NURSING PROTOCOL Performed By: #### L 500.2500, L100.0100 #### [facility] [address] [place], [address] Basic Metabolic Profile (BMP )on 04-27-2025 BUN/CRE 45.3 RATIO High 10-20 [facility] Comment on above: Performed By: #### L 500.2500, L100.0100 #### [facility] [address] [place], [address] Calcium [Mass/Vol] 9.4 mg/dL Normal 7.6-11.0 [facility] Comment on above: Performed By: #### L 500.2500, L100.0100 #### [facility] [address] [place], [address] Chloride [Moles/Vol] 99 mmol/L Normal 98-108 [facility] Comment on above: Performed By: #### L 500.2500, L100.0100 #### [facility] [address] [place], [address] CO2 [Moles/Vol] 30.5 mmol/L Normal 21.0-32.0 [facility] Comment on above: Performed By: #### L 500.2500, L100.0100 #### [facility] [address] [place], [address] Creatinine [Mass/Vol] 0.35 mg/dL Low 0.70-1.20 [facility] Comment on above: Performed By: #### L 500.2500, L100.0100 #### [facility] [address] [place], [address] ECRCL 137.21 ml/min Normal 50-250 [facility] Comment on above: Performed By: #### L 500.2500, L100.0100 #### [facility] [address] [place], [address] GAP 9 Normal 5-15 [facility] Comment on above: Performed By: #### L 500.2500, L100.0100 #### [facility] [address] [place], [address] GFR/1.73 sq M.predicted among non-blacks MDRD (S/P/Bld) [Vol rate/Area] 148 mL/min/{1.73_m2} Normal >60 [facility] Comment on above: Result Comment: mL/m in/1.73m2 CKD-EPI Creatinine Equation (2020) Performed By: #### L 500.2500, L100.0100 #### [facility] [address] [place], [address] Glucose [Mass/Vol] 141 mg/dL High 70-99 [facility] Comment on above: Performed By: #### L 500.2500, L100.0100 #### [facility] [address] [place], [address] Potassium [Moles/Vol] 4.0 mmol/L Normal 3.3-5.1 [facility] Comment on above: Performed By: #### L 500.2500, L100.0100 #### [facility] [address] [place], [address] Sodium [Moles/Vol] 139 mmol/L Normal 133-145 [facility] Comment on above: Performed By: #### L 500.2500, L100.0100 #### [facility] [address] [place], [address] Urea nitrogen [Mass/Vol] 16 mg/dL Normal 4-19 [facility] Comment on above: Performed By: #### L 500.2500, L100.0100 #### [facility] [address] [place], [address] Bedside Glucoseon 04-27-2025 FINGERSTICK GLU 107 mg/dL High 74-106 [facility] Comment on above: Result Comment: BONNIE GEMENT OF PATIENT CARE PER NURSING PROTOCOL Performed By: #### L 100.0100, L500.2500 #### [facility] [address] [place], [address] FINGERSTICK GLU 128 mg/dL High 74-106 [facility] Comment on above: Result Comment: BONNIE GEMENT OF PATIENT CARE PER NURSING PROTOCOL Performed By: #### L 500.2500, L100.0100 #### [facility] [address] [place], [address] CBC W/Diff, Automatedon 11-0 -2024 Absolute Lymph 1.48 X10 3/uL Normal 0.83-4.51 [facility] Comment on above: Performed By: #### L 500.2500, L100.0100 #### [facility] [address] [place], [address] Absolute Neut 2.3 X10 3/uL Normal 2.0-7.7 [facility] Comment on above: Performed By: #### L 500.2500, L100.0100 #### [facility] [address] [place], [address] Basophils/100 WBC (Bld) 0.9 % Normal 0-1 [facility] Comment on above: Performed By: #### L 500.2500, L100.0100 #### [facility] [address] [place], [address] Eosinophils/100 WBC (Bld) 2.2 % Normal 0-5 [facility] Comment on above: Performed By: #### L 500.2500, L100.0100 #### [facility] [address] [place], [address] Erythrocyte distribution width (RBC) [Ratio] 12.8 % Normal 11.6-14.6 [facility] Comment on above: Performed By: #### L 500.2500, L100.0100 #### [facility] [address] [place], [address] Hematocrit (Bld) [Volume fraction] 36.9 % Low 37-47 [facility] Comment on above: Performed By: #### L 500.2500, L100.0100 #### [facility] [address] [place], [address] Hemoglobin (Bld) [Mass/Vol] 12.0 g/dL Normal 12.0-15.0 [facility] Comment on above: Performed By: #### L 500.2500, L100.0100 #### [facility] [address] [place], [address] IG% 1.600 High 0.0-0.9 [facility] Comment on above: Result Comment: IG% - Immature Granulocytes (promyelocytes, myelocytes and metamyelocytes) > 1% indicates that a LEFT SHIFT is Present. Performed By: #### L 500.2500, L100.0100 #### [facility] [address] [place], [address] Lymphocytes/100 WBC (Bld) 33.2 % Normal 19-41 [facility] Comment on above: Performed By: #### L 500.2500, L100.0100 #### [facility] [address] [place], [address] MCH (RBC) [Entitic mass] 28.7 pg Normal 27.0-32.0 [facility] Comment on above: Performed By: #### L 500.2500, L100.0100 #### [facility] [address] [place], [address] MCHC (RBC) [Mass/Vol] 32.5 g/dL Normal 32-36 [facility] Comment on above: Performed By: #### L 500.2500, L100.0100 #### [facility] [address] [place], [address] MCV (RBC) [Entitic vol] 88.3 fL Normal 81-99 [facility] Comment on above: Performed By: #### L 500.2500, L100.0100 #### [facility] [address] [place], [address] Monocytes/100 WBC (Bld) 9.9 % Normal 0-10 [facility] Comment on above: Performed By: #### L 500.2500, L100.0100 #### [facility] [address] [place], [address] Neutrophils/100 WBC (Bld) 52.2 % Normal 47-70 [facility] Comment on above: Performed By: #### L 500.2500, L100.0100 #### [facility] [address] [place], [address] Nucleated RBC (Bld) [#/Vol] 0 10*3/uL Normal 0-5 [facility] Comment on above: Performed By: #### L 500.2500, L100.0100 #### [facility] [address] [place], [address] Platelet mean volume (Bld) [Entitic vol] 10.7 fL Normal 6.2-12.0 [facility] Comment on above: Performed By: #### L 500.2500, L100.0100 #### [facility] [address] [place], [address] Platelets (Bld) [#/Vol] 249 10*3/uL Normal 150-450 [facility] Comment on above: Performed By: #### L 500.2500, L100.0100 #### [facility] [facility] [address] [place], [address] RBC (Bld) [#/Vol] 4.18 10*6/uL Low 4.2-5.4 [facility] Comment on above: Performed By: #### L 500.2500, L100.0100 #### [facility] [address] [place], [address] RDW SD 41.7 fl Normal 35.1-43.9 [facility] Comment on above: Performed By: #### L 500.2500, L100.0100 #### [facility] [address] [place], [address] WBC (Bld) [#/Vol] 4.5 10*3/uL Normal 4.4-11.0 [facility] Comment on above: Performed By: #### L 500.2500, L100.0100 #### [facility] [address] [place], [address] Basic Metabolic Profile (BMP )on 04-26-2025 BUN Normal 4-19 [facility] Comment on above: Result Comment: Canc elled via OM: Order cancelled - Patient discharged Performed By: #### L 500.2500, L100.0100 #### [facility] [address] [place], [address] BUN/CRE Normal 10-20 [facility] Comment on above: Result Comment: Canc elled via OM: Order cancelled - Patient discharged Performed By: #### L 500.2500, L100.0100 #### [facility] [address] [place], [address] Calcium Normal 7.6-11.0 [facility] Comment on above: Result Comment: Canc elled via OM: Order cancelled - Patient discharged Performed By: #### L 500.2500, L100.0100 #### [facility] [address] [place], [address] CL Normal 98-108 [facility] Comment on above: Result Comment: Canc elled via OM: Order cancelled - Patient discharged Performed By: #### L 500.2500, L100.0100 #### [facility] [address] [place], [address] CO2 Normal 21.0-32.0 [facility] Comment on above: Result Comment: Canc elled via OM: Order cancelled - Patient discharged Performed By: #### L 500.2500, L100.0100 #### [facility] [address] [place], [address] CREAT,SERUM Normal 0.70-1.20 [facility] Comment on above: Result Comment: Canc elled via OM: Order cancelled - Patient discharged Performed By: #### L 500.2500, L100.0100 #### [facility] [address] [place], [address] eGFR Normal >60 [facility] Comment on above: Result Comment: Canc elled via OM: Order cancelled - Patient discharged Performed By: #### L 500.2500, L100.0100 #### [facility] [address] [place], [address] GAP Normal 5-15 [facility] Comment on above: Result Comment: Canc elled via OM: Order cancelled - Patient discharged Performed By: #### L 500.2500, L100.0100 #### [facility] [address] [place], [address] GLU Normal 70-99 [facility] Comment on above: Result Comment: Canc elled via OM: Order cancelled - Patient discharged Performed By: #### L 500.2500, L100.0100 #### [facility] [address] [place], [address] Potassium Normal 3.3-5.1 [facility] Comment on above: Result Comment: Canc elled via OM: Order cancelled - Patient discharged Performed By: #### L 500.2500, L100.0100 #### [facility] [address] [place], [address] Basic Metabolic Profile (BMP) Normal 133-145 [facility] Comment on above: Result Comment: Canc elled via OM: Order cancelled - Patient discharged Performed By: #### L 500.2500, L100.0100 #### [facility] [address] [place], [address] Bedside Glucoseon 04-26-2025 FINGERSTICK GLU 103 mg/dL Normal 74-106 [facility] Comment on above: Result Comment: BONNIE AL OF PATIENT CARE PER NURSING PROTOCOL Performed By: #### L 100.0100, L500.2500 #### [facility] [address] [place], [address] CBC W/Diff, Automatedon 11-0 Absolute Neut Normal 2.0-7.7 [facility] Comment on above: Result Comment: Canc elled via OM: Order cancelled - Patient discharged Performed By: #### L 500.2500, L100.0100 #### [facility] [address] [place], [address] HCT Normal 37-47 [facility] Comment on above: Result Comment: Canc elled via OM: Order cancelled - Patient discharged Performed By: #### L 500.2500, L100.0100 #### [facility] [address] [place], [address] HGB Normal 12.0-15.0 [facility] Comment on above: Result Comment: Canc elled via OM: Order cancelled - Patient discharged Performed By: #### L 500.2500, L100.0100 #### [facility] [address] [place], [address] MCH Normal 27.0-32.0 [facility] Comment on above: Result Comment: Canc elled via OM: Order cancelled - Patient discharged Performed By: #### L 500.2500, L100.0100 #### [facility] [address] [place], [address] MCHC Normal 32-36 [facility] Comment on above: Result Comment: Canc elled via OM: Order cancelled - Patient discharged Performed By: #### L 500.2500, L100.0100 #### [facility] [address] [place], [address] MCV Normal 81-99 [facility] Comment on above: Result Comment: Canc elled via OM: Order cancelled - Patient discharged Performed By: #### L 500.2500, L100.0100 #### [facility] [address] [place], [address] NEUT% Normal 47-70 [facility] Comment on above: Result Comment: Canc elled via OM: Order cancelled - Patient discharged Performed By: #### L 500.2500, L100.0100 #### [facility] [address] [place], [address] PLT Normal 150-450 [facility] Comment on above: Result Comment: Canc elled via OM: Order cancelled - Patient discharged Performed By: #### L 500.2500, L100.0100 #### [facility] [address] [place], [address] RBC Normal 4.2-5.4 [facility] Comment on above: Result Comment: Canc elled via OM: Order cancelled - Patient discharged Performed By: #### L 500.2500, L100.0100 #### [facility] [address] [place], [address] RDW CV Normal 11.6-14.6 [facility] Comment on above: Result Comment: Canc elled via OM: Order cancelled - Patient discharged Performed By: #### L 500.2500, L100.0100 #### [facility] [address] [place], [address] RDW SD Normal 35.1-43.9 [facility] Comment on above: Result Comment: Canc elled via OM: Order cancelled - Patient discharged Performed By: #### L 500.2500, L100.0100 #### [facility] [address] [place], [address] WBC Normal 4.4-11.0 [facility] Comment on above: Result Comment: Canc elled via OM: Order cancelled - Patient discharged Performed By: #### L 500.2500, L100.0100 #### [facility] [address] [place], [address] CT HEAD WO IV CONTRASTon CT HEAD WO IV CONTRAST Normal [facility] CT Head WO contraston 2024 1. [...] as stated by Brian Gamez MD (radiology rn). MACRO: None Signed by: Leon Bai 04/26/2025 12:14 PM Dictation workstation: [id number] [facility] MM[facility]AL Interpreted By: Leon Xiao and [...] HEAD WO IV CONTRAST 04/22/2025 ACCESSION NUMBER(S): [id number] ORDERING CLINICIAN: ALFRED SELF TECHNIQUE: Noncontrast axial [...] HEAD WO IV CONTRAST 04/22/2025 ACCESSION NUMBER(S): [id number] ORDERING CLINICIAN: ALFRED SELF TECHNIQUE: Noncontrast axial [...] as stated by Brian Gamez MD (radiology rn). MACRO: None Signed by: Leon Bai 04/26/2025 12:14 PM Dictation workstation: [id number] [facility] Work Phone: Radiology Study observation (narrative) [facility] Work Phone: CT Head WO contrastOrdered B y: Leon Bai on 04-26-2025 [facility] Work Phone: Glucose Test strip manual (B ld) [Mass/Vol]on 04-26-2025 Glucose [Mass/Vol] 161 mg/dL High 74 - 99 mg/dL [facility] Interpretation and review of laboratory results Abnormal [facility] Glucose [Mass/Vol] 161 mg/dL High 74-99 [facility] Comment on above: Performed By: #### 2 341-6 ####CALE Roth ([id number])[facility] ([facility])[address] [place] [address] Glucose [Mass/Vol] 153 mg/dL High 74 - 99 mg/dL [facility] Interpretation and review of laboratory results Abnormal [facility] Glucose [Mass/Vol] 153 mg/dL High 74-99 [facility] Comment on above: Performed By: #### 2 341-6 ####CALE Roth ([id number])[facility] ([facility])[address] [place] [address] CBC panel Auto (Bld)on 04-25 Erythrocyte distribution width (RBC) [Ratio] 12.9 % 11.5 - 14.5 % [facility] Hematocrit (Bld) [Volume fraction] 39.7 % 36.0 - 46.0 % [facility] Hemoglobin (Bld) [Mass/Vol] 12.7 g/dL 12.0 - 16.0 g/dL [facility] Interpretation and review of laboratory results Normal [facility] MCH (RBC) [Entitic mass] 28.9 pg 26.0 - 34.0 pg [facility] MCHC (RBC) [Mass/Vol] 32.0 g/dL 32.0 - 36.0 g/dL [facility] MCV (RBC) [Entitic vol] 90 fL 80 - 100 fL [facility] Nucleated RBC/100 WBC (Bld) [Ratio] 0.0 % [facility] Platelets (Bld) [#/Vol] 247 10*3/uL [facility] RBC (Bld) [#/Vol] 4.39 10*6/uL [facility] WBC (Bld) [#/Vol] 5.1 10*3/uL [facility] Erythrocyte distribution width (RBC) [Ratio] 12.9 % Normal 11.5-14.5 [facility] Comment on above: Performed By: #### 5 8410-2 ####CALE Roth ([id number])[facility] ([facility])[address] [place] [address] Hematocrit (Bld) [Volume fraction] 39.7 % Normal 36.0-46.0 [facility] Comment on above: Performed By: #### 5 8410-2 ####CALE Roth ([id number])[facility] ([facility])[address] [place] [address] Hemoglobin (Bld) [Mass/Vol] 12.7 g/dL Normal 12.0-16.0 [facility] Comment on above: Performed By: #### 5 8410-2 ####CALE Roth ([id number])[facility] ([facility])[address] [place] [address] MCH (RBC) [Entitic mass] 28.9 pg Normal 26.0-34.0 [facility] Comment on above: Performed By: #### 5 8410-2 ####CALE Roth ([id number])[facility] ([facility])[id number] [place] [address] MCHC (RBC) [Mass/Vol] 32.0 g/dL Normal 32.0-36.0 [facility] Comment on above: Performed By: #### 5 8410-2 ####CALE Roth ([id number])[facility] ([facility])[id number] [place] [address] MCV (RBC) [Entitic vol] 90 fL Normal 80-100 [facility] Comment on above: Performed By: #### 5 8410-2 ####CALE Roth ([id number])[facility] ([facility])[address] [place] [address] Nucleated RBC/100 WBC (Bld) [Ratio] 0.0 /100 WBCs Normal 0.0-0.0 [facility] Comment on above: Performed By: #### 5 8410-2 ####CALE Roth ([id number])[facility] ([facility])[address] [place] [address] Platelets (Bld) [#/Vol] 247 x10*3/uL Normal 150-450 [facility] Comment on above: Performed By: #### 5 8410-2 ####CALE CAI L ([id number])[facility] ([facility])[address] [place] [address] RBC (Bld) [#/Vol] 4.39 x10*6/uL Normal 4.00-5.20 [facility] Comment on above: Performed By: #### 5 8410-2 ####CALE Roth ([id number])[facility] ([facility])[address] [place] [address] WBC (Bld) [#/Vol] 5.1 x10*3/uL Normal 4.4-11.3 [facility] Comment on above: Performed By: #### 5 8410-2 ####CALE Roth ([id number])[facility] ([facility])[address] [place] [address] Glucose Test strip manual (B ld) [Mass/Vol]on 04-25-2025 Glucose [Mass/Vol] 204 mg/dL High 74 - 99 mg/dL [facility] Interpretation and review of laboratory results Abnormal [facility] Glucose [Mass/Vol] 204 mg/dL High 74-99 [facility] Comment on above: Performed By: #### 2 341-6 ####CALE CAI L ([id number])[facility] ([facility])[address] [place] [address] Glucose [Mass/Vol] 118 mg/dL High 74 - 99 mg/dL [facility] Interpretation and review of laboratory results Abnormal [facility] Glucose [Mass/Vol] 118 mg/dL High 74-99 [facility] Comment on above: Performed By: #### 2 341-6 ####CALE Roth ([id number])[facility] ([facility])[id number] [place] [address] Glucose [Mass/Vol] 134 mg/dL High 74 - 99 mg/dL [facility] Interpretation and review of laboratory results Abnormal [facility] Glucose [Mass/Vol] 134 mg/dL High 74-99 [facility] Comment on above: Performed By: #### 2 341-6 ####CALE Roth ([id number])[facility] ([facility])[id number] [place] [address] Glucose [Mass/Vol] 177 mg/dL High 74 - 99 mg/dL [facility] Interpretation and review of laboratory results Abnormal [facility] Glucose [Mass/Vol] 177 mg/dL High 74-99 [facility] Comment on above: Performed By: #### 2 341-6 ####CALE Roth ([id number])[facility] ([facility])[id number] [place] [address] Glucose [Mass/Vol] 173 mg/dL High 74 - 99 mg/dL [facility] Interpretation and review of laboratory results Abnormal [facility] Glucose [Mass/Vol] 173 mg/dL High 74-99 [facility] Comment on above: Performed By: #### 2 341-6 ####CALE Roth ([id number])[facility] ([facility])[address] [place] [address] MR BRAIN WO IV CONTRASTon MR BRAIN WO IV CONTRAST Normal [facility] MR Brain WO contraston 04-25 1. Negative brain MR I examination for acute change. 2. Again noted is edema within the cerebellar hemispheres. MACRO: None Signed by: Efrain Jackson 04/25/2025 1:28 PM Dictation workstation: [id number] [facility] MMODAL Interpreted By: Efrain Reed, STUDY: MR BRAIN WO IV CONTRAST; 04/25/2025 11:23 am INDICATION: Signs/Symptoms:r/o new stroke. 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 Parenchyma: There is no restricted diffusion to suggest acute ischemia. Again noted is edema within the cerebellar hemispheres. Ventricles: There is no hydrocephalus. A ACCOUNTS PAYABLE ASSISTANT shunt is better visualized on prior CT [...] CT of April 24, 2025 ACCESSION NUMBER(S): [id number] ORDERING CLINICIAN: ALFRED SELF TECHNIQUE: Multiplaner, multisequence MRI were obtained without contrast FINDINGS: The examination is limited by motion artifact and susceptibility artifact. Parenchyma: There is no restricted diffusion to suggest acute ischemia. Again noted is edema within the cerebellar hemispheres. Ventricles: There is no hydrocephalus. A ACCOUNTS PAYABLE ASSISTANT shunt is better visualized on prior CT [...] Efrain Jackson 04/25/2025 1:28 PM Dictation workstation: [id number] [facility] Work Phone: Radiology Study observation (narrative) [facility] Work Phone: MR Brain WO contrastOrdered By: Efrain Jackson on 04-25-2025 [facility] Work Phone: Renal function 2000 panelon 04-25-2025 Albumin BCP dye [Mass/Vol] 3.7 g/dL 3.4 - 5.0 g/dL [facility] Anion gap [Moles/Vol] 13 mmol/L 10 - 20 mmol/L [facility] Calcium [Mass/Vol] 9.5 mg/dL 8.6 - 10. 6 mg/dL [facility] Chloride [Moles/Vol] 97 mmol/L Low 98 - 10 7 mmol/L [facility] CO2 [Moles/Vol] 32 mmol/L 21 - 32 mmol/L [facility] Comment on above: Bicarbonate results may be falsely elevated when Lactate Dehydrogenase (LDH) concentrations exceed 2,000 U/L due to a temporary reagent manufacturing issue. If significantly elevated LDH levels are suspected, interpret bicarbonate results with caution, correlate with the patient s clinical status, and consider confirming CO2 values using a blood gas analyzer. Creatinine [Mass/Vol] 0.36 mg/dL Low 0.50 - 1.05 mg/dL [facility] eGFR - PINF [facility] Comment on above: Calculations of marisol mated GFR are performed using the 2020 CKD-EPI Study Refit equation without the race variable for the IDMS-Traceable creatinine methods. https://jasn.asnjournals.org/content/early//ASN.1284802 988 Glucose [Mass/Vol] 119 mg/dL High 74 - 99 mg/dL [facility] Interpretation and review of laboratory results Abnormal [facility] Phosphate [Mass/Vol] 3.8 mg/dL 2.5 - 4 .9 mg/dL [facility] Potassium [Moles/Vol] 4.6 mmol/L 3.5 - 5.3 mmol/L [facility] Sodium [Moles/Vol] 137 mmol/L 136 - 145 mmol/L [facility] Urea nitrogen [Mass/Vol] 12 mg/dL 6 - 23 mg/dL [facility] Albumin BCP dye [Mass/Vol] 3.7 g/dL Normal 3.4-5.0 [facility] Comment on above: Performed By: #### 2 4362-6 ####CALE Roth ([id number])[facility] ([facility])[address] [place] [address] Anion gap [Moles/Vol] 13 mmol/L Normal 10-20 [facility] Comment on above: Performed By: #### 2 4362-6 ####CALE Roth ([id number])[facility] ([facility])[address] [place] [address] Calcium [Mass/Vol] 9.5 mg/dL Normal 8.6-10.6 [facility] Comment on above: Performed By: #### 2 4362-6 ####CALE Roth ([id number])[facility] ([facility])[address] [place] [address] Chloride [Moles/Vol] 97 mmol/L Low 98-107 [facility] Comment on above: Performed By: #### 2 4362-6 ####CALE Roth ([id number])[facility] ([facility])[address] [place] [address] CO2 [Moles/Vol] 32 mmol/L Normal 21-32 [facility] Comment on above: Result Comment: Bica rbonate results may be falsely elevated when Lactate Dehydrogenase (LDH) concentrations exceed 2,000 U/L due to a temporary reagent manufacturing issue. If significantly elevated LDH levels are suspected, interpret bicarbonate results with caution, correlate with the patient's clinical status, and consider confirming CO2 values using a blood gas analyzer. Performed By: #### 2 4362-6 ####CALE Roth ([id number])[facility] ([facility])[address] [place] [address] Creatinine [Mass/Vol] 0.36 mg/dL Low 0.50-1.05 [facility] Comment on above: Performed By: #### 2 4362-6 ####CALE Roth ([id number])[facility] ([facility])[address] [place] [address] Glomerular filtration rate >90 Normal >60 [facility] Comment on above: Result Comment: Calc ulations of estimated GFR are performed using the 2020 CKD-EPI Study Refit equation without the race variable for the IDMS-Traceable creatinine methods.https://jasn.asnjournals.org/content/early/ASN .9532796276 Performed By: #### 2 4362-6 ####CALE Roth ([id number])[facility] ([facility])[id number] [place] [address] Glucose [Mass/Vol] 119 mg/dL High 74-99 [facility] Comment on above: Performed By: #### 2 4362-6 ####CALE Roth ([id number])[facility] ([facility])[address] [place] [address] Phosphate [Mass/Vol] 3.8 mg/dL Normal 2.5-4.9 [facility] Comment on above: Performed By: #### 2 4362-6 ####CALE Roth ([id number])[facility] ([facility])[address] [place] [address] Potassium [Moles/Vol] 4.6 mmol/L Normal 3.5-5.3 [facility] Comment on above: Performed By: #### 2 4362-6 ####CALE Roth ([id number])[facility] ([facility])[address] [place] [address] Sodium [Moles/Vol] 137 mmol/L Normal 136-145 [facility] Comment on above: Performed By: #### 2 4362-6 ####CALE Roth ([id number])[facility] ([facility])[address] [place] [address] Urea nitrogen [Mass/Vol] 12 mg/dL Normal 6-23 [facility] Comment on above: Performed By: #### 2 4362-6 ####CALE Roth ([id number])[facility] ([facility])[address] [place] [address] Urine Cultureon 04-25-2025 [facility] If Gram Positive [place] susceptibility studies are desired, contact the Microbiology Laboratory within 48 hours [phone]. Urine Culture Urine Culture Urine Culture Lactobacillus species [place] Count <1000 Normal [facility] Comment on above: Performed By: #### L 500.2500, L100.0100 #### [facility] [address] [place], [address] CT HEAD WO IV CONTRASTon CT HEAD WO IV CONTRAST Normal [facility] CT Head WO contraston 2024 1. [...] Alex Obregon 04/24/2025 8:14 AM Dictation workstation: [id number] [facility] MM[facility]AL Interpreted By: Alex Glez, STUDY: CT HEAD WO IV CONTRAST; 04/24/2025 5:36 am INDICATION: Signs/Symptoms: Vent Size sp shunt dial. COMPARISON: None. ACCESSION NUMBER(S): [id number] ORDERING CLINICIAN: ALFRED SELF TECHNIQUE: Noncontrast axial [...] Vague densities along the bilateral frontal convexities bsdr-dgrqszf-saew-right favored to represent beam hardening artifact. No [...] sp shunt dial. COMPARISON: None. ACCESSION NUMBER(S): [id number] ORDERING CLINICIAN: ALFRED SELF TECHNIQUE: Noncontrast axial [...] Vague densities along the bilateral frontal convexities mnig-ktjsjoq-yjpb-right favored to represent beam hardening artifact. No [...] Alex Obregon 04/24/2025 8:14 AM Dictation workstation: [id number] [facility] Work Phone: Radiology Study observation (narrative) [facility] Work Phone: CT Head WO contrastOrdered B y: Alex Obregon on 04-24-2025 [facility] Work Phone: Glucose Test strip manual (B ld) [Mass/Vol]on 04-24-2025 Glucose [Mass/Vol] 147 mg/dL High 74 - 99 mg/dL [facility] Interpretation and review of laboratory results Abnormal [facility] Glucose [Mass/Vol] 147 mg/dL High 74-99 [facility] Comment on above: Performed By: #### 2 341-6 ####CALE Roth ([id number])[facility] ([facility])[address] [place] [address] Glucose [Mass/Vol] 143 mg/dL High 74 - 99 mg/dL [facility] Interpretation and review of laboratory results Abnormal [facility] Glucose [Mass/Vol] 143 mg/dL High 74-99 [facility] Comment on above: Performed By: #### 2 341-6 ####CALE Roth ([id number])[facility] ([facility])[address] [place] [address] 60762 Glucose [Mass/Vol] 138 mg/dL High 74 - 99 mg/dL [facility] Interpretation and review of laboratory results Abnormal [facility] Glucose [Mass/Vol] 138 mg/dL High 74-99 [facility] Comment on above: Performed By: #### 2 341-6 ####CALE Roth ([id number])[facility] ([facility])[address] [place] [address] 14643 MR Brain WO contraston 04-24 Only social science instructor images. M R imaging of the brain was not completed due to unstable condition of the patient. Nondiagnostic study. I personally reviewed the images/study and I agree with the findings as stated by Sherrill Jackson MD. This study was interpreted at [facility], [place], [place]. MACRO: None Signed by: Mohan Rincon 04/24/2025 8:34 AM Dictation workstation: [id number] [facility] Interpreted By: Mohan Castillo and Kaur Arashdeep STUDY: MR BRAIN WO IV CONTRAST; 04/23/2025 8:11 pm INDICATION: Signs/Symptoms:altered mental status. COMPARISON: None. ACCESSION NUMBER(S): [id number] ORDERING CLINICIAN: ALFRED SELF TECHNIQUE: Only social science instructor images were obtained. MR imaging of the brain was not completed due to unstable condition of the patient. FINDINGS: Only social science instructor images. MR imaging of the brain was not completed due to unstable condition of the patient Mohan Valdes MD - 04/24/2025 Interpreted By: Mohan Rincon and Kaur Arashdeep STUDY: MR BRAIN WO IV CONTRAST; 04/23/2025 8:11 pm INDICATION: Signs/Symptoms:altered mental status. COMPARISON: None. ACCESSION NUMBER(S): [id number] ORDERING CLINICIAN: ALFRED SELF TECHNIQUE: Only social science instructor images were obtained. MR imaging of the brain was not completed due to unstable condition of the patient. FINDINGS: Only social science instructor images. MR imaging of the brain was not completed due to unstable condition of the patient IMPRESSION: Only social science instructor images. MR imaging of the brain was not completed due to unstable condition of the patient. Nondiagnostic study. I personally reviewed the images/study and I agree with the findings as stated by Sherrill Jackson MD. This study was interpreted at [facility], [place], [place]. MACRO: None Signed by: Mohan Rincon 04/24/2025 8:34 AM Dictation workstation: [id number] [facility] Work Phone: MR Brain WO contrastOrdered By: Mohan Rincon on 04-24-2025 [facility] Work Phone: CT HEAD WO IV CONTRASTon CT HEAD WO IV CONTRAST Normal [facility] CT Head WO contraston 2024 1. [...] Guillermo Khoury. This study was interpreted at [place], [place]. MACRO: None Signed by: Sugey Machado 04/23/2025 12:21 PM Dictation workstation: [id number] [facility] Interpreted By: Sugey Murphy, Berta Li STUDY: CT HEAD WO IV CONTRAST; 04/23/2025 2:57 am INDICATION: Signs/Symptoms:Overdraining of ACCOUNTS PAYABLE ASSISTANT shunt. Per EMR: 24-year-old female diagnosed with [...] BRAIN WO IV CONTRAST 03/18/2025 ACCESSION NUMBER(S): [id number] ORDERING CLINICIAN: GABE FLORES TECHNIQUE: Noncontrast axial [...] CONTRAST; 04/23/2025 2:57 am INDICATION: Signs/Symptoms:Overdraining of ACCOUNTS PAYABLE ASSISTANT shunt. Per EMR: 24-year-old female diagnosed with [...] BRAIN WO IV CONTRAST 03/18/2025 ACCESSION NUMBER(S): [id number] ORDERING CLINICIAN: GABE FLORES TECHNIQUE: Noncontrast axial [...] Guillermo Khoury. This study was interpreted at [facility], [place], [place]. MACRO: None Signed by: Sugey Machado 04/23/2025 12:21 PM Dictation workstation: [id number] [facility] Work Phone: Radiology Study observation (narrative) [facility] Work Phone: CT Head WO contrastOrdered B y: Sugey Machado on 04-23-2025 [facility] Work Phone: Glucose Test strip manual (B ld) [Mass/Vol]on 04-23-2025 Glucose [Mass/Vol] 132 mg/dL High 74 - 99 mg/dL [facility] Interpretation and review of laboratory results Abnormal [facility] Glucose [Mass/Vol] 132 mg/dL High 74-99 [facility] Comment on above: Performed By: #### 2 341-6 ####CALE Roth ([id number])[facility] ([facility])[address] [place] [address] 63324 Glucose [Mass/Vol] 156 mg/dL High 74 - 99 mg/dL [facility] Interpretation and review of laboratory results Abnormal [facility] Glucose [Mass/Vol] 156 mg/dL High 74-99 [facility] Comment on above: Performed By: #### 2 341-6 ####CALE Roth ([id number])[facility] ([facility])[address] [place] [address] 31466 Glucose [Mass/Vol] 101 mg/dL High 74 - 99 mg/dL [facility] Interpretation and review of laboratory results Abnormal [facility] Glucose [Mass/Vol] 101 mg/dL High 74-99 [facility] Comment on above: Performed By: #### 2 341-6 ####CALE Roth ([id number])[facility] ([facility])[address] [place] [address] 06651 Glucose [Mass/Vol] 146 mg/dL High 74 - 99 mg/dL [facility] Interpretation and review of laboratory results Abnormal [facility] Glucose [Mass/Vol] 146 mg/dL High 74-99 [facility] Comment on above: Performed By: #### 2 341-6 ####CALE Roth ([id number])[facility] ([facility])[address] [place] [address] Glucose [Mass/Vol] 93 mg/dL 74 - 99 mg/dL [facility] Interpretation and review of laboratory results Normal [facility] Glucose [Mass/Vol] 93 mg/dL Normal 74-99 [facility] Comment on above: Performed By: #### 2 341-6 ####CALE Roth ([id number])[facility] ([facility])[address] [place] [address] MR BRAIN WO IV CONTRASTon MR BRAIN WO IV CONTRAST Normal [facility] MR Brain WO contraston 04-23 Radiology Study observation (narrative) [facility] Work Phone: CBC panel Auto (Bld)on 04-22 Erythrocyte distribution width (RBC) [Ratio] 12.6 % 11.5 - 14.5 % [facility] Hematocrit (Bld) [Volume fraction] 39.4 % 36.0 - 46.0 % [facility] Hemoglobin (Bld) [Mass/Vol] 12.8 g/dL 12.0 - 16.0 g/dL [facility] Interpretation and review of laboratory results Normal [facility] MCH (RBC) [Entitic mass] 29.2 pg 26.0 - 34.0 pg [facility] MCHC (RBC) [Mass/Vol] 32.5 g/dL 32.0 - 36.0 g/dL [facility] MCV (RBC) [Entitic vol] 90 fL 80 - 100 fL [facility] Nucleated RBC/100 WBC (Bld) [Ratio] 0.0 % [facility] Platelets (Bld) [#/Vol] 294 10*3/uL [facility] RBC (Bld) [#/Vol] 4.39 10*6/uL [facility] WBC (Bld) [#/Vol] 4.7 10*3/uL [facility] Erythrocyte distribution width (RBC) [Ratio] 12.6 % Normal 11.5-14.5 [facility] Comment on above: Performed By: #### 5 8410-2 ####CALE Roth ([id number])[facility] ([facility])[address] [place] [address] Hematocrit (Bld) [Volume fraction] 39.4 % Normal 36.0-46.0 [facility] Comment on above: Performed By: #### 5 8410-2 ####CALE Roth ([id number])[facility] ([facility])[address] [place] [address] Hemoglobin (Bld) [Mass/Vol] 12.8 g/dL Normal 12.0-16.0 [facility] Comment on above: Performed By: #### 5 8410-2 ####CALE Roth ([id number])[facility] ([facility])[address] [place] [address] 90171 MCH (RBC) [Entitic mass] 29.2 pg Normal 26.0-34.0 [facility] Comment on above: Performed By: #### 5 8410-2 ####CALE Roth ([id number])[facility] ([facility])[address] [place] [address] MCHC (RBC) [Mass/Vol] 32.5 g/dL Normal 32.0-36.0 [facility] Comment on above: Performed By: #### 5 8410-2 ####CALE Roth ([id number])[facility] ([facility])[address] [place] [address] MCV (RBC) [Entitic vol] 90 fL Normal 80-100 [facility] Comment on above: Performed By: #### 5 8410-2 ####CALE Roth ([id number])[facility] ([facility])[address] [place] [address]20 Nucleated RBC/100 WBC (Bld) [Ratio] 0.0 /100 WBCs Normal 0.0-0.0 [facility] Comment on above: Performed By: #### 5 8410-2 ####CALE RUTLEDGEER L ([id number])[facility] ([facility])[address] [place] [address] Platelets (Bld) [#/Vol] 294 x10*3/uL Normal 150-450 [facility] Comment on above: Performed By: #### 5 8410-2 ####CALE TOSCANOMOTZER L ([id number])[facility] ([facility])[address] [place] [address] RBC (Bld) [#/Vol] 4.39 x10*6/uL Normal 4.00-5.20 [facility] Comment on above: Performed By: #### 5 8410-2 ####CALE TOSCANOMOTZER L ([id number])[facility] ([facility])[address] [place] [address] WBC (Bld) [#/Vol] 4.7 x10*3/uL Normal 4.4-11.3 [facility] Comment on above: Performed By: #### 5 8410-2 ####CALE TOSCANOMOTZER L ([id number])[facility] ([facility])[address] [place] [address] CT HEAD WO IV CONTRASTon CT HEAD WO IV CONTRAST Normal [facility] CT Head WO contraston 2024 1. [...] Hilda Lucas 04/22/2025 4:07 PM Dictation workstation: [id number] [facility] Interpreted By: Hilda Ramirez and Kaur Arashdeep STUDY: CT HEAD WO IV CONTRAST; 04/22/2025 3:24 pm INDICATION: Signs/Symptoms:hydrocephalu s. COMPARISON: CT head 04/08/2025. CT head 03/29/2025.. ACCESSION NUMBER(S): [id number] ORDERING CLINICIAN: ALFRED SELF TECHNIQUE: Noncontrast axial [...] head 04/08/2025. CT head 03/29/2025.. ACCESSION NUMBER(S): [id number] ORDERING CLINICIAN: ALFRED SELF TECHNIQUE: Noncontrast axial [...] Hilda Lucas 04/22/2025 4:07 PM Dictation workstation: [id number] [facility] Work Phone: Radiology Study observation (narrative) [facility] Work Phone: CT Head WO contrastOrdered B y: Hilda Lucas on 04-22-2025 [facility] Work Phone: Glucose Test strip manual (B ld) [Mass/Vol]on 04-22-2025 Glucose [Mass/Vol] 110 mg/dL High 74 - 99 mg/dL [facility] Interpretation and review of laboratory results Abnormal [facility] Glucose [Mass/Vol] 110 mg/dL High 74-99 [facility] Comment on above: Performed By: #### 2 341-6 ####CALE Roth ([id number])[facility] ([facility])[address] [place] [address] Glucose [Mass/Vol] 112 mg/dL High 74 - 99 mg/dL [facility] Interpretation and review of laboratory results Abnormal [facility] Glucose [Mass/Vol] 112 mg/dL High 74-99 [facility] Comment on above: Performed By: #### 2 341-6 ####CALE Roth ([id number])[facility] ([facility])[address] [place] [address]8825 Glucose [Mass/Vol] 151 mg/dL High 74 - 99 mg/dL [facility] Interpretation and review of laboratory results Abnormal [facility] Glucose [Mass/Vol] 151 mg/dL High 74-99 [facility] Comment on above: Performed By: #### 2 341-6 ####CALE Roth ([id number])[facility] ([facility])[address] [place] [address] 12187 Glucose [Mass/Vol] 127 mg/dL High 74 - 99 mg/dL [facility] Interpretation and review of laboratory results Abnormal [facility] Glucose [Mass/Vol] 127 mg/dL High 74-99 [facility] Comment on above: Performed By: #### 2 341-6 ####CALE Roth ([id number])[facility] ([facility])[address] [place] [address] 55311 Renal function 2000 panelon 04-22-2025 Albumin BCP dye [Mass/Vol] 3.7 g/dL 3.4 - 5.0 g/dL [facility] Anion gap [Moles/Vol] 15 mmol/L 10 - 20 mmol/L [facility] Calcium [Mass/Vol] 9.6 mg/dL 8.6 - 10. 6 mg/dL [facility] Chloride [Moles/Vol] 94 mmol/L Low 98 - 10 7 mmol/L [facility] CO2 [Moles/Vol] 32 mmol/L 21 - 32 mmol/L [facility] Comment on above: Bicarbonate results may be falsely elevated when Lactate Dehydrogenase (LDH) concentrations exceed 2,000 U/L due to a temporary reagent manufacturing issue. If significantly elevated LDH levels are suspected, interpret bicarbonate results with caution, correlate with the patient s clinical status, and consider confirming CO2 values using a blood gas analyzer. Creatinine [Mass/Vol] 0.41 mg/dL Low 0.50 - 1.05 mg/dL [facility] eGFR - PINF [facility] Comment on above: Calculations of marisol mated GFR are performed using the 2020 CKD-EPI Study Refit equation without the race variable for the IDMS-Traceable creatinine methods. https://jasn.asnjournals.org/content//ASN.4877552 988 Glucose [Mass/Vol] 151 mg/dL High 74 - 99 mg/dL [facility] Interpretation and review of laboratory results Abnormal [facility] Phosphate [Mass/Vol] 4.0 mg/dL 2.5 - 4 .9 mg/dL [facility] Potassium [Moles/Vol] 4.0 mmol/L 3.5 - 5.3 mmol/L [facility] Sodium [Moles/Vol] 137 mmol/L 136 - 145 mmol/L [facility] Urea nitrogen [Mass/Vol] 15 mg/dL 6 - 23 mg/dL [facility] Albumin BCP dye [Mass/Vol] 3.7 g/dL Normal 3.4-5.0 [facility] Comment on above: Performed By: #### 2 4362-6 ####CALE Roth ([id number])[facility] ([facility])[address] [place] [address] Anion gap [Moles/Vol] 15 mmol/L Normal 10-20 [facility] Comment on above: Performed By: #### 2 4362-6 ####CALE Roth ([id number])[facility] ([facility])[address] [place] [address] Calcium [Mass/Vol] 9.6 mg/dL Normal 8.6-10.6 [facility] Comment on above: Performed By: #### 2 4362-6 ####CALE Roth ([id number])[facility] ([facility])[address] [place] [address] Chloride [Moles/Vol] 94 mmol/L Low 98-107 [facility] Comment on above: Performed By: #### 2 4362-6 ####CALE Roth ([id number])[facility] ([facility])[address] [place] [address] CO2 [Moles/Vol] 32 mmol/L Normal 21-32 [facility] Comment on above: Result Comment: Bica rbonate results may be falsely elevated when Lactate Dehydrogenase (LDH) concentrations exceed 2,000 U/L due to a temporary reagent manufacturing issue. If significantly elevated LDH levels are suspected, interpret bicarbonate results with caution, correlate with the patient's clinical status, and consider confirming CO2 values using a blood gas analyzer. Performed By: #### 2 4362-6 ####CALE Roth ([id number])[facility] ([facility])[address] [place] [address] Creatinine [Mass/Vol] 0.41 mg/dL Low 0.50-1.05 [facility] Comment on above: Performed By: #### 2 4362-6 ####CALE Roth ([id number])[facility] ([facility])[address] [place] [address] Glomerular filtration rate >90 Normal >60 [facility] Comment on above: Result Comment: Calc ulations of estimated GFR are performed using the 2020 CKD-EPI Study Refit equation without the race variable for the IDMS-Traceable creatinine methods.https://jasn.asnjournals.org/content//ASN .9774015142 Performed By: #### 2 4362-6 ####CALE Roth ([id number])[facility] ([facility])[address] [place] [address] Glucose [Mass/Vol] 151 mg/dL High 74-99 [facility] Comment on above: Performed By: #### 2 4362-6 ####CALE Roth ([id number])[facility] ([facility])[address] [place] [address] Phosphate [Mass/Vol] 4.0 mg/dL Normal 2.5-4.9 [facility] Comment on above: Performed By: #### 2 4362-6 ####CALE Roth ([id number])[facility] ([facility])[address] [place] [address] Potassium [Moles/Vol] 4.0 mmol/L Normal 3.5-5.3 [facility] Comment on above: Performed By: #### 2 4362-6 ####CALE Roth ([id number])[facility] ([facility])[address] [place] [address] Sodium [Moles/Vol] 137 mmol/L Normal 136-145 [facility] Comment on above: Performed By: #### 2 4362-6 ####CALE Roth ([id number])[facility] ([facility])[address] [place] [address] Urea nitrogen [Mass/Vol] 15 mg/dL Normal 6-23 [facility] Comment on above: Performed By: #### 2 4362-6 ####CALE Roth ([id number])[facility] ([facility])[address] [place] [address] Bedside Glucoseon 04-21-2025 [facility] GLU 176 mg/dL High 74-106 [facility] Comment on above: Result Comment: BONNIE GEMENT OF PATIENT CARE PER NURSING PROTOCOL Performed By: #### L 100.0100, L500.2500 #### [facility] [address] [place], [address] Blood type and Indirect anti body screen panel (Bld)on 04-21-2025 ABO group Nom (Bld) B [facility] Blood group antibody screen Ql Negative [facility] D Ag Ql (Bld) Positive [facility] ABO group Nom (Bld) B Normal [facility] Comment on above: Performed By: #### 3 4532-2 ####CALE Roth ([id number])[facility] ([facility])[address] [place] [address] Blood group antibody screen Ql Negative Normal [facility] Comment on above: Performed By: #### 3 4532-2 ####CALE Roth ([id number])[facility] ([facility])[address] [place] [address] D Ag Ql (Bld) Positive Normal [facility] Comment on above: Performed By: #### 3 4532-2 ####CALE Roth ([id number])[facility] ([facility])[address] [place] [address] C reactive proteinon 025 CRP [Mass/Vol] 2.15 mg/dL High <1.00 [facility] Comment on above: Performed By: #### 1 988-5 ####CALE Roth ([id number])[facility] ([facility])[address] [place] [address] C-reactive proteinon 025 CRP [Mass/Vol] 2.15 mg/dL High NINF - 1.00 mg/dL [facility] CBC W Auto Differential pane l (Bld)on 04-21-2025 Basophils (Bld) [#/Vol] 0.03 10*3/uL [facility] Basophils/100 WBC (Bld) 0.5 % 0.0 - 2.0 % [facility] Eosinophils (Bld) [#/Vol] 0.03 10*3/uL [facility] Eosinophils/100 WBC (Bld) 0.5 % 0.0 - 6.0 % [facility] Erythrocyte distribution width (RBC) [Ratio] 12.6 % 11.5 - 14.5 % [facility] Hematocrit (Bld) [Volume fraction] 37.8 % 36.0 - 46.0 % [facility] Hemoglobin (Bld) [Mass/Vol] 12.9 g/dL 12.0 - 16.0 g/dL [facility] Immature granulocytes (Bld) [#/Vol] 0.10 10*3/uL [facility] Immature granulocytes/100 WBC (Bld) 1.6 % High 0.0 - 0.9 % [facility] Comment on above: Immature Granulocyte Count (IG) includes promyelocytes, myelocytes and metamyelocytes but does not include bands. Percent differential counts (%) should be interpreted in the context of the absolute cell counts (cells/UL). Interpretation and review of laboratory results Abnormal [facility] Lymphocytes (Bld) [#/Vol] 0.96 10*3/uL Low [facility] Lymphocytes/100 WBC (Bld) 15.4 % 13.0 - 44.0 % [facility] MCH (RBC) [Entitic mass] 28.7 pg 26.0 - 34.0 pg [facility] MCHC (RBC) [Mass/Vol] 34.1 g/dL 32.0 - 36.0 g/dL [facility] MCV (RBC) [Entitic vol] 84 fL 80 - 100 fL [facility] Monocytes (Bld) [#/Vol] 0.54 10*3/uL [facility] Monocytes/100 WBC (Bld) 8.7 % 2.0 - 10.0 % [facility] Neutrophils (Bld) [#/Vol] 4.58 10*3/uL [facility] Comment on above: Percent differential counts (%) should be interpreted in the context of the absolute cell counts (cells/uL). Neutrophils/100 WBC (Bld) 73.3 % 40.0 - 80.0 % [facility] Nucleated RBC/100 WBC (Bld) [Ratio] 0.0 % [facility] Platelets (Bld) [#/Vol] 313 10*3/uL [facility] RBC (Bld) [#/Vol] 4.49 10*6/uL [facility] WBC (Bld) [#/Vol] 6.2 10*3/uL [facility] Basophils (Bld) [#/Vol] 0.03 x10*3/uL Normal 0.00-0.10 [facility] Comment on above: Performed By: #### 5 7021-8 ####CALE Roth ([id number])[facility] ([facility])[address] [place] [address] Basophils/100 WBC (Bld) 0.5 % Normal 0.0-2.0 [facility] Comment on above: Performed By: #### 5 7021-8 ####CALE Roth ([id number])[facility] ([facility])[address] [place] [address] Eosinophils (Bld) [#/Vol] 0.03 x10*3/uL Normal 0.00-0.70 [facility] Comment on above: Performed By: #### 5 7021-8 ####CALE Roth ([id number])[facility] ([facility])[id number] [place] [address] Eosinophils/100 WBC (Bld) 0.5 % Normal 0.0-6.0 [facility] Comment on above: Performed By: #### 5 7021-8 ####CALE Roth ([id number])[facility] ([facility])[id number] [place] [address] Erythrocyte distribution width (RBC) [Ratio] 12.6 % Normal 11.5-14.5 [facility] Comment on above: Performed By: #### 5 7021-8 ####CALE Roth ([id number])[facility] ([facility])[address] [place] [address] Hematocrit (Bld) [Volume fraction] 37.8 % Normal 36.0-46.0 [facility] Comment on above: Performed By: #### 5 7021-8 ####CALE Roth ([id number])[facility] ([facility])[id number] [place] [address] Hemoglobin (Bld) [Mass/Vol] 12.9 g/dL Normal 12.0-16.0 [facility] Comment on above: Performed By: #### 5 7021-8 ####CALE Roth ([id number])[facility] ([facility])[address] [place] [address] Immature granulocytes (Bld) [#/Vol] 0.10 x10*3/uL Normal 0.00-0.70 [facility] Comment on above: Performed By: #### 5 7021-8 ####CALE Roth ([id number])[facility] ([facility])[address] [place] [address] Immature granulocytes/100 WBC (Bld) 1.6 % High 0.0-0.9 [facility] Comment on above: Result Comment: Aleisha ture Granulocyte Count (IG) includes promyelocytes, myelocytes and metamyelocytes but does not include bands. Percent differential counts (%) should be interpreted in the context of the absolute cell counts (cells/UL). Performed By: #### 5 7021-8 ####CALE Roth ([id number])[facility] ([facility])[address] [place] [address] Lymphocytes (Bld) [#/Vol] 0.96 x10*3/uL Low 1.20-4.80 [facility] Comment on above: Performed By: #### 5 7021-8 ####CALE Roth ([id number])[facility] ([facility])[address] [place] [address] Lymphocytes/100 WBC (Bld) 15.4 % Normal 13.0-44.0 [facility] Comment on above: Performed By: #### 5 7021-8 ####CALE Roth ([id number])[facility] ([facility])[address] [place] [address] MCH (RBC) [Entitic mass] 28.7 pg Normal 26.0-34.0 [facility] Comment on above: Performed By: #### 5 7021-8 ####CALE Roth ([id number])[facility] ([facility])[address] [place] [address] MCHC (RBC) [Mass/Vol] 34.1 g/dL Normal 32.0-36.0 [facility] Comment on above: Performed By: #### 5 7021-8 ####CALE Roth ([id number])[facility] ([facility])[address] [place] [address] MCV (RBC) [Entitic vol] 84 fL Normal 80-100 [facility] Comment on above: Performed By: #### 5 7021-8 ####CALE Roth ([id number])[facility] ([facility])[address] [place] [address] Monocytes (Bld) [#/Vol] 0.54 x10*3/uL Normal 0.10-1.00 [facility] Comment on above: Performed By: #### 5 7021-8 ####CALE Roth ([id number])[facility] ([facility])[address] [place] [address] Monocytes/100 WBC (Bld) 8.7 % Normal 2.0-10.0 [facility] Comment on above: Performed By: #### 5 7021-8 ####CALE Roth ([id number])[facility] ([facility])[address] [place] [address] Neutrophils (Bld) [#/Vol] 4.58 x10*3/uL Normal 1.20-7.70 [facility] Comment on above: Result Comment: Perc ent differential counts (%) should be interpreted in the context of the absolute cell counts (cells/uL). Performed By: #### 5 7021-8 ####CALE Roth ([id number])[facility] ([facility])[address] [place] [address] Neutrophils/100 WBC (Bld) 73.3 % Normal 40.0-80.0 [facility] Comment on above: Performed By: #### 5 7021-8 ####CALE Roth ([id number])[facility] ([facility])[address] [place] [address] Nucleated RBC/100 WBC (Bld) [Ratio] 0.0 /100 WBCs Normal 0.0-0.0 [facility] Comment on above: Performed By: #### 5 7021-8 ####CALE Roth ([id number])[facility] ([facility])[address] [place] [address] Platelets (Bld) [#/Vol] 313 x10*3/uL Normal 150-450 [facility] Comment on above: Performed By: #### 5 7021-8 ####CALE Roth ([id number])[facility] ([facility])[address] [place] [address] RBC (Bld) [#/Vol] 4.49 x10*6/uL Normal 4.00-5.20 [facility] Comment on above: Performed By: #### 5 7021-8 ####CALE Roth ([id number])[facility] ([facility])[address] [place] [address] WBC (Bld) [#/Vol] 6.2 x10*3/uL Normal 4.4-11.3 [facility] Comment on above: Performed By: #### 5 7021-8 ####CALE Roth ([id number])[facility] ([facility])[address] [place] [address] CRP [Mass/Vol]on 04-21-2025 Interpretation and review of laboratory results Abnormal [facility] Choriogonadotropin.beta subu niton 04-21-2025 HCG.beta subunit Qn m[IU]/mL Normal <5 [facility] Comment on above: Order Comment: Total HCG measurement is performed using the Siemens Atellica immunoassay which detects intact HCG and free beta HCG subunit. This test is not indicated for use as a tumor marker. HCG testing is performed using a different test methodology at [facility] than other [facility]. Direct result comparison should only be made within the same method. Performed By: #### 2 1198-7 ####CALE Roth ([id number])[facility] ([facility])[address] [place] [address] Coagulation tissue factor in ducedon 04-21-2025 PT Coag (PPP) [Time] 12.6 s High 9.8-12.4 [facility] Comment on above: Performed By: #### 5 902-2 ####CALE Roth ([id number])[facility] ([facility])[address] [place] [address] Comprehensive metabolic 2000 panelon 04-21-2025 Albumin BCP dye [Mass/Vol] 3.7 g/dL 3.4 - 5.0 g/dL [facility] ALP [Catalytic activity/Vol] 90 U/L 33 - 110 U/L [facility] ALT With P-5'-P [Catalytic activity/Vol] 35 U/L 7 - 45 U/L [facility] Comment on above: Patients treated wit h Sulfasalazine may generate falsely decreased results for ALT. Anion gap [Moles/Vol] 12 mmol/L 10 - 20 mmol/L [facility] AST With P-5'-P [Catalytic activity/Vol] 24 U/L 9 - 39 U/L [facility] Comment on above: MILD HEMOLYSIS DETEC VIPUL. The result may be falsely elevated due to hemolysis or other interferents. Clinical correlation is recommended. Repeat testing may be considered. Bilirubin [Mass/Vol] 0.3 mg/dL 0.0 - 1 .2 mg/dL [facility] Calcium [Mass/Vol] 9.8 mg/dL 8.6 - 10. 6 mg/dL [facility] Chloride [Moles/Vol] 94 mmol/L Low 98 - 10 7 mmol/L [facility] CO2 [Moles/Vol] 34 mmol/L High 21 - 32 mmol/L [facility] Comment on above: Bicarbonate results may be falsely elevated when Lactate Dehydrogenase (LDH) concentrations exceed 2,000 U/L due to a temporary reagent manufacturing issue. If significantly elevated LDH levels are suspected, interpret bicarbonate results with caution, correlate with the patient s clinical status, and consider confirming CO2 values using a blood gas analyzer. Creatinine [Mass/Vol] 0.35 mg/dL Low 0.50 - 1.05 mg/dL [facility] eGFR - PINF [facility] Comment on above: Calculations of marisol mated GFR are performed using the 2020 CKD-EPI Study Refit equation without the race variable for the IDMS-Traceable creatinine methods. https://jasn.asnjournals.org/content//ASN.0518006 988 Glucose [Mass/Vol] 102 mg/dL High 74 - 99 mg/dL [facility] Interpretation and review of laboratory results Abnormal [facility] Potassium [Moles/Vol] 4.3 mmol/L 3.5 - 5.3 mmol/L [facility] Comment on above: MILD HEMOLYSIS DETEC VIPUL. The result may be falsely elevated due to hemolysis or other interferents. Clinical correlation is recommended. Repeat testing may be considered. Protein [Mass/Vol] 7.6 g/dL 6.4 - 8.2 g/dL [facility] Sodium [Moles/Vol] 136 mmol/L 136 - 145 mmol/L [facility] Urea nitrogen [Mass/Vol] 12 mg/dL 6 - 23 mg/dL [facility] Albumin BCP dye [Mass/Vol] 3.7 g/dL Normal 3.4-5.0 [facility] Comment on above: Performed By: #### 2 4323-8 ####CALE Roth ([id number])[facility] ([facility])[address] [place] [address] ALP [Catalytic activity/Vol] 90 U/L Normal 33-110 [facility] Comment on above: Performed By: #### 2 4323-8 ####CALE Roth ([id number])[facility] ([facility])[address] [place] [address] ALT With P-5'-P [Catalytic activity/Vol] 35 U/L Normal 7-45 [facility] Comment on above: Result Comment: Rehana ents treated with Sulfasalazine may generate falsely decreased results for ALT. Performed By: #### 2 4323-8 ####CALE CAI L ([id number])[facility] ([facility])[address] [place] [address] Anion gap [Moles/Vol] 12 mmol/L Normal 10-20 [facility] Comment on above: Performed By: #### 2 4323-8 ####CALE Roth ([id number])[facility] ([facility])[address] [place] [address] AST With P-5'-P [Catalytic activity/Vol] 24 U/L Normal 9-39 [facility] Comment on above: Result Comment: MILD HEMOLYSIS DETECTED. The result may be falsely elevated due to hemolysis or other interferents. Clinical correlation is recommended. Repeat testing may be considered. Performed By: #### 2 4323-8 ####CALE Roth ([id number])[facility] ([facility])[address] [place] [address] Bilirubin [Mass/Vol] 0.3 mg/dL Normal 0.0-1.2 [facility] Comment on above: Performed By: #### 2 4323-8 ####CALE Roth ([id number])[facility] ([facility])[address] [place] [address] Calcium [Mass/Vol] 9.8 mg/dL Normal 8.6-10.6 [facility] Comment on above: Performed By: #### 2 4323-8 ####CALE Roth ([id number])[facility] ([facility])[address] [place] [address] Chloride [Moles/Vol] 94 mmol/L Low 98-107 [facility] Comment on above: Performed By: #### 2 4323-8 ####CALE Roth ([id number])[facility] ([facility])[address] [place] [address] CO2 [Moles/Vol] 34 mmol/L High 21-32 [facility] Comment on above: Result Comment: Bica rbonate results may be falsely elevated when Lactate Dehydrogenase (LDH) concentrations exceed 2,000 U/L due to a temporary reagent manufacturing issue. If significantly elevated LDH levels are suspected, interpret bicarbonate results with caution, correlate with the patient's clinical status, and consider confirming CO2 values using a blood gas analyzer. Performed By: #### 2 4323-8 ####CALE Roth ([id number])[facility] ([facility])[address] [place] [address] Creatinine [Mass/Vol] 0.35 mg/dL Low 0.50-1.05 [facility] Comment on above: Performed By: #### 2 4323-8 ####CALE Roth ([id number])[facility] ([facility])[address] [place] [address] Glomerular filtration rate >90 Normal >60 [facility] Comment on above: Result Comment: Calc ulations of estimated GFR are performed using the 2020 CKD-EPI Study Refit equation without the race variable for the IDMS-Traceable creatinine methods.https://jasn.asnjournals.org/content/early//ASN .9570670646 Performed By: #### 2 4323-8 ####CALE Roth ([id number])[facility] ([facility])[address] [place] [address] Glucose [Mass/Vol] 102 mg/dL High 74-99 [facility] Comment on above: Performed By: #### 2 4323-8 ####CALE Roth ([id number])[facility] ([facility])[address] [place] [address] Potassium [Moles/Vol] 4.3 mmol/L Normal 3.5-5.3 [facility] Comment on above: Result Comment: MILD HEMOLYSIS DETECTED. The result may be falsely elevated due to hemolysis or other interferents. Clinical correlation is recommended. Repeat testing may be considered. Performed By: #### 2 4323-8 ####CALE Roth ([id number])[facility] ([facility])[address] [place] [address] Protein [Mass/Vol] 7.6 g/dL Normal 6.4-8.2 [facility] Comment on above: Performed By: #### 2 4323-8 ####CALE Roth ([id number])[facility] ([facility])[address] [place] [address] Sodium [Moles/Vol] 136 mmol/L Normal 136-145 [facility] Comment on above: Performed By: #### 2 4323-8 ####CALE Roth ([id number])[facility] ([facility])[address] [place] [address] Urea nitrogen [Mass/Vol] 12 mg/dL Normal 6-23 [facility] Comment on above: Performed By: #### 2 4323-8 ####CALE Roth ([id number])[facility] ([facility])[address] [place] [address] ESR Westergren method (Bld) [Velocity]on 04-21-2025 ESR (Bld) [Velocity] 33 mm/h High 0 - 20 mm/h [facility] Interpretation and review of laboratory results Abnormal [facility] ESR (Bld) [Velocity] 33 mm/h High 0-20 [facility] Comment on above: Performed By: #### 4 537-7 ####CALE Roth ([id number])[facility] ([facility])[address]32 [place] [address] Gas panel (BldV)on Anion gap 4 (BldV) [Moles/Vol] 3.0 mmol/L Low 10.0 - 25.0 mmol/L [facility] Base excess Calc (BldV) [Moles/Vol] 13.1 mmol/L High -2.0 - 3.0 mmol/L [facility] Calcium.ionized (BldV) [Moles/Vol] 1.22 mmol/L 1.10 - 1.33 mmol/L [facility] Chloride (BldV) [Moles/Vol] 96 mmol/L Low 98 - 107 mmol/L [facility] CO2 (BldV) [Partial pressure] 49 mm[Hg] [facility] Glucose [Mass/Vol] 113 mg/dL High 74 - 99 mg/dL [facility] HCO3 (Bld) [Moles/Vol] 38.2 mmol/L High 22.0 - 26.0 mmol/L [facility] Hematocrit Est (Bld) [Volume fraction] 41.0 % 36.0 - 46.0 % [facility] Hemoglobin (Bld) [Mass/Vol] 13.5 g/dL 12.0 - 16.0 g/dL [facility] Interpretation and review of laboratory results Abnormal [facility] Lactate (BldV) [Moles/Vol] 1.2 mmol/L 0.4 - 2.0 mmol/L [facility] Oxygen (BldV) [Partial pressure] 61 mm[Hg] High [facility] Oxygen saturation in Venous blood 92 % High 45 - 75 % [facility] Oxyhemoglobin (BldV) [Mass fraction] 89.4 % High 45.0 - 75.0 % [facility] pH (BldV) 7.50 [pH] High 7.33 - 7.43 pH [facility] Potassium (BldV) [Moles/Vol] 4.5 mmol/L 3.5 - 5.3 mmol/L [facility] Sodium (BldV) [Moles/Vol] 133 mmol/L Low 136 - 145 mmol/L [facility] Anion gap 4 (BldV) [Moles/Vol] 3.0 mmol/L Low 10.0-25.0 [facility] Comment on above: Performed By: #### 2 4339-4 ####CALE Roth ([id number])[facility] ([facility])[address] [place] [address] Base excess Calc (BldV) [Moles/Vol] 13.1 mmol/L High -2.0-3.0 [facility] Comment on above: Performed By: #### 2 4339-4 ####CALE Roth ([id number])[facility] ([facility])[address] [place] [address] Calcium.ionized (BldV) [Moles/Vol] 1.22 mmol/L Normal 1.10-1.33 [facility] Comment on above: Performed By: #### 2 4339-4 ####CALE Roth ([id number])[facility] ([facility])[address] [place] [address] Chloride (BldV) [Moles/Vol] 96 mmol/L Low 98-107 [facility] Comment on above: Performed By: #### 2 4339-4 ####CALE Roth ([id number])[facility] ([facility])[address] [place] [address] CO2 (BldV) [Partial pressure] 49 mm Hg Normal 41-51 [facility] Comment on above: Performed By: #### 2 4339-4 ####CALE Roth ([id number])[facility] ([facility])[address] [place] [address] Glucose [Mass/Vol] 113 mg/dL High 74-99 [facility] Comment on above: Performed By: #### 2 4339-4 ####CALE Roth ([id number])[facility] ([facility])[address] [place] [address] HCO3 (Bld) [Moles/Vol] 38.2 mmol/L High 22.0-26.0 [facility] Comment on above: Performed By: #### 2 4339-4 ####CALE Roth (13684)[facility] ([facility])[address] [place] [address] Hematocrit Est (Bld) [Volume fraction] 41.0 % Normal 36.0-46.0 [facility] Comment on above: Performed By: #### 2 4339-4 ####CALE Roth (15221)[facility] ([facility])[address]63 [place] [address] Hemoglobin (Bld) [Mass/Vol] 13.5 g/dL Normal 12.0-16.0 [facility] Comment on above: Performed By: #### 2 4339-4 ####CALE Roth ([id number])[facility] ([facility])[address]64 [place] [address] Lactate (BldV) [Moles/Vol] 1.2 mmol/L Normal 0.4-2.0 [facility] Comment on above: Performed By: #### 2 4339-4 ####CALE Roth ([id number])[facility] ([facility])[address] [place] [address] Oxygen (BldV) [Partial pressure] 61 mm Hg High 35-45 [facility] Comment on above: Performed By: #### 2 4339-4 ####CALE Roth (19956)[facility] ([facility])[address] [place] [address] Oxygen saturation in Venous blood 92 % High 45-75 [facility] Comment on above: Performed By: #### 2 4339-4 ####CALE Roth ([id number])[facility] ([facility])[address] [place] [address] Oxyhemoglobin (BldV) [Mass fraction] 89.4 % High 45.0-75.0 [facility] Comment on above: Performed By: #### 2 4339-4 ####CALE Roth ([id number])[facility] ([facility])[address] [place] [address] pH (BldV) 7.50 [pH] High 7.33-7.43 [facility] Comment on above: Performed By: #### 2 4339-4 ####CALE Roth ([id number])[facility] ([facility])[address] [place] [address] Potassium (BldV) [Moles/Vol] 4.5 mmol/L Normal 3.5-5.3 [facility] Comment on above: Performed By: #### 2 4339-4 ####CALE Roth ([id number])[facility] ([facility])[address] [place] [address] Sodium (BldV) [Moles/Vol] 133 mmol/L Low 136-145 [facility] Comment on above: Performed By: #### 2 4339-4 ####CALE Roth ([id number])[facility] ([facility])[address] [place] [address] HCG.beta subunit Qnon 2024 Interpretation and review of laboratory results Normal [facility] Total HCG measuremen t is performed using the Siemens AtellAVIS immunoassay which detects intact HCG and free beta HCG subunit. This test is not indicated for use as a tumor marker. HCG testing is performed using a different test methodology at [facility] than other [facility]. Direct result comparison should only be made within the same method. [facility] Human Chorionic Gonadotropin , Serum Quantitativeon 04-21-2025 HCG.beta subunit Qn NINF [facility] Magnesiumon 04-21-2025 Magnesium [Mass/Vol] 2.43 mg/dL High 1.60 - 2.40 mg/dL [facility] Magnesium [Mass/Vol] 2.43 mg/dL High 1.60-2.40 [facility] Comment on above: Performed By: #### 1 9123-9 ####CALE Roth ([id number])[facility] ([facility])[address] [place] [address] Magnesium [Mass/Vol]on 04-21 Interpretation and review of laboratory results Abnormal [facility] PT Coag (PPP) [Time]on 04-21 INR Coag (PPP) [Relative time] 1.1 {INR} 0.9 - 1.1 [facility] Interpretation and review of laboratory results Abnormal [facility] INR Coag (PPP) [Relative time] 1.1 Normal 0.9-1.1 [facility] Comment on above: Performed By: #### 5 902-2 ####CALE Roth ([id number])[facility] ([facility])[address] [place] [address] Protime-INRon 04-21-2025 PT Coag (PPP) [Time] 12.6 s High [facility] Bedside Glucoseon 04-20-2025 FINGERSTICK GLU 103 mg/dL Normal 74-106 [facility] Comment on above: Result Comment: BONNIE GEMENT OF PATIENT CARE PER NURSING PROTOCOL Performed By: #### L 100.0100, L500.2500 #### [facility] [address] [place], [address] FINGERSTICK GLU 153 mg/dL High 74-106 [facility] Comment on above: Result Comment: BONNIE GEMENT OF PATIENT CARE PER NURSING PROTOCOL Performed By: #### L 500.2500, L100.0100 #### [facility] [address] [place], [address] Brain/Head without Contrasto n 04-20-2025 Brain/Head without Contrast [facility] Imaging Services [address] [place] [address] Brain/Head without Contrast MR#: [id number] Acct: [id number] Name: KIMANI COHEN Rep #: [id number] : 2000 F 24 From: Ayush Burger MD PCP: Dr. Yessenia Dixon MD Status: REG CLI Study: Brain/Head without Contrast Date of Exam: 03/25 02/15 Exam# [id number] Ordering Dr: Benjy Gonzalez MD PROCEDURE: CT [...] posterior fossa as described. Right parietal approach [employer]S PAYABLE ASSISTANT shunt in stable positioning. Evidence of over-shunting with slit-like ventricular caliber and basilar cistern effacement since prior exam. Neurosurgical consult suggested. No acute intracranial hemorrhage, mass-effect or evidence of acute territorial infarct. Reading Location: [id number] CC: Dr. Yessenia Dixon MD; Dr. Benjy Gonzalez MD Strapper Operator: Signed Normal [facility] CBC W/Diff, Automatedon 10-2 Absolute Lymph 0.57 X10 3/uL Low 0.83-4.51 [facility] Comment on above: Performed By: #### L 500.2500, L100.0100 #### [facility] [address] [place], [address] Absolute Neut 6.9 X10 3/uL Normal 2.0-7.7 [facility] Comment on above: Performed By: #### L 500.2500, L100.0100 #### [facility] [address], [address] Basophils/100 WBC (Bld) 0.7 % Normal 0-1 [facility] Comment on above: Performed By: #### L 500.2500, L100.0100 #### [facility] [address] [place], [place], [address] Eosinophils/100 WBC (Bld) 0.2 % Normal 0-5 [facility] Comment on above: Performed By: #### L 500.2500, L100.0100 #### [facility] [address] [place], [address] Erythrocyte distribution width (RBC) [Ratio] 12.7 % Normal 11.6-14.6 [facility] Comment on above: Performed By: #### L 500.2500, L100.0100 #### [facility] [address] [place], [address] Hematocrit (Bld) [Volume fraction] 38.5 % Normal 37-47 [facility] Comment on above: Performed By: #### L 500.2500, L100.0100 #### [facility] [address] [place], [address] Hemoglobin (Bld) [Mass/Vol] 12.9 g/dL Normal 12.0-15.0 [facility] Comment on above: Performed By: #### L 500.2500, L100.0100 #### [facility] [address] [place], [address] IG% 1.100 High 0.0-0.9 [facility] Comment on above: Result Comment: IG% - Immature Granulocytes (promyelocytes, myelocytes and metamyelocytes) > 1% indicates that a LEFT SHIFT is Present. Performed By: #### L 500.2500, L100.0100 #### [facility] [address] [place], [address] Lymphocytes/100 WBC (Bld) 7.1 % Low 19-41 [facility] Comment on above: Performed By: #### L 500.2500, L100.0100 #### [facility] [address] [place], [address] MCH (RBC) [Entitic mass] 29.1 pg Normal 27.0-32.0 [facility] Comment on above: Performed By: #### L 500.2500, L100.0100 #### [facility] [address] [place], [address] MCHC (RBC) [Mass/Vol] 33.5 g/dL Normal 32-36 [facility] Comment on above: Performed By: #### L 500.2500, L100.0100 #### [facility] [address] [place], [address] MCV (RBC) [Entitic vol] 86.7 fL Normal 81-99 [facility] Comment on above: Performed By: #### L 500.2500, L100.0100 #### [facility] [address] [place], [address] Monocytes/100 WBC (Bld) 5.7 % Normal 0-10 [facility] Comment on above: Performed By: #### L 500.2500, L100.0100 #### [facility] [address] [place], [address] Neutrophils/100 WBC (Bld) 85.2 % High 47-70 [facility] Comment on above: Performed By: #### L 500.2500, L100.0100 #### [facility] [address] [place], [address] Nucleated RBC (Bld) [#/Vol] 0 10*3/uL Normal 0-5 [facility] Comment on above: Performed By: #### L 500.2500, L100.0100 #### [facility] [address] [place], [address] Platelet mean volume (Bld) [Entitic vol] 10.3 fL Normal 6.2-12.0 [facility] Comment on above: Performed By: #### L 500.2500, L100.0100 #### [facility] [address] [place], [address] Platelets (Bld) [#/Vol] 308 10*3/uL Normal 150-450 [facility] Comment on above: Performed By: #### L 500.2500, L100.0100 #### [facility] [address] [place], [address] RBC (Bld) [#/Vol] 4.44 10*6/uL Normal 4.2-5.4 [facility] Comment on above: Performed By: #### L 500.2500, L100.0100 #### [facility] [address] [place], [address] RDW SD 39.8 fl Normal 35.1-43.9 [facility] Comment on above: Performed By: #### L 500.2500, L100.0100 #### [facility] [address] [place], [address] WBC (Bld) [#/Vol] 8.1 10*3/uL Normal 4.4-11.0 [facility] Comment on above: Performed By: #### L 500.2500, L100.0100 #### [facility] [address] [place], [address] Comprehensive Metabolic Prof [facility] 04-20-2025 Albumin [Mass/Vol] 3.8 g/dL Normal 3.5-5.0 [facility] Comment on above: Performed By: #### L 500.2500, L100.0100 #### [facility] [address] [place], [address] Albumin/Globulin [Mass ratio] 1.0 {ratio} Normal 0.9-2.4 [facility] Comment on above: Performed By: #### L 500.2500, L100.0100 #### [facility] [address] [place], [address] ALK PHOS 103 U/L Normal 35-104 [facility] Comment on above: Performed By: #### L 500.2500, L100.0100 #### [facility] [address] [place], [address] ALT [Catalytic activity/Vol] 38 U/L High <=34 [facility] Comment on above: Performed By: #### L 500.2500, L100.0100 #### [facility] [address] [place], [address] AST [Catalytic activity/Vol] 22 U/L Normal <=31 [facility] Comment on above: Performed By: #### L 500.2500, L100.0100 #### [facility] [address] [place], [address] Bilirubin [Mass/Vol] 0.32 mg/dL Normal 0.00-1.30 [facility] [place] Comment on above: Performed By: #### L 500.2500, L100.0100 #### [facility] [address] [place], [address] BUN/CRE 33.7 RATIO High 10-20 [facility] Comment on above: Performed By: #### L 500.2500, L100.0100 #### [facility] [address] [place], [address] Calcium [Mass/Vol] 9.2 mg/dL Normal 7.6-11.0 [facility] Comment on above: Performed By: #### L 500.2500, L100.0100 #### [facility] [address] [place], [address] Chloride [Moles/Vol] 96 mmol/L Low 98-108 [facility] Comment on above: Performed By: #### L 500.2500, L100.0100 #### [facility] [address] [place], [address] CO2 [Moles/Vol] 29.4 mmol/L Normal 21.0-32.0 [facility] Comment on above: Performed By: #### L 500.2500, L100.0100 #### [facility] [address] [place], [address] Creatinine [Mass/Vol] 0.33 mg/dL Low 0.70-1.20 [facility] Comment on above: Performed By: #### L 500.2500, L100.0100 #### [facility] [address] [place], [address] ECRCL 170.42 ml/min Normal 50-250 [facility] Comment on above: Performed By: #### L 500.2500, L100.0100 #### [facility] [address] [place], [address] GAP 11 Normal 5-15 [facility] Comment on above: Performed By: #### L 500.2500, L100.0100 #### [facility] [address] [place], [address] GFR/1.73 sq M.predicted among non-blacks MDRD (S/P/Bld) [Vol rate/Area] 151 mL/min/{1.73_m2} Normal >60 [facility] Comment on above: Result Comment: mL/m in/1.73m2 CKD-EPI Creatinine Equation (2020) Performed By: #### L 500.2500, L100.0100 #### [facility] [address] [place], [address] Globulin (S) [Mass/Vol] 3.7 g/dL Normal 2.2-4.2 [facility] Comment on above: Performed By: #### L 500.2500, L100.0100 #### [facility] [address] [place], [address] Glucose [Mass/Vol] 122 mg/dL High 70-99 [facility] Comment on above: Performed By: #### L 500.2500, L100.0100 #### [facility] [address] [place], [address] Potassium [Moles/Vol] 3.9 mmol/L Normal 3.3-5.1 [facility] Comment on above: Performed By: #### L 500.2500, L100.0100 #### [facility] [address] [place], [address] Sodium [Moles/Vol] 137 mmol/L Normal 133-145 [facility] Comment on above: Performed By: #### L 500.2500, L100.0100 #### [facility] [address] [place], [address] T PROT 7.5 g/dL Normal 5.9-8.4 [facility] Comment on above: Performed By: #### L 500.2500, L100.0100 #### [facility] [address] [place], [address] Urea nitrogen [Mass/Vol] 11 mg/dL Normal 4-19 [facility] Comment on above: Performed By: #### L 500.2500, L100.0100 #### [facility] [address] [place], [address] Urinalysis, Completeon 04-20 AMORPHOUS 2+ Normal [facility] Comment on above: Order Comment: SAUL TER SPECIMEN Performed By: #### L 100.0100, L500.2500 #### [facility] [address] [place], [address] BACTERIA 2+ /hpf Normal None Seen [facility] Comment on above: Order Comment: SAUL TER SPECIMEN Performed By: #### L 100.0100, L500.2500 #### [facility] [address] [place], [address] Mucus Ql (Urine sed) RARE Normal [facility] [place] Comment on above: Order Comment: SAUL TER SPECIMEN Performed By: #### L 100.0100, L500.2500 #### [facility] [address] [place], [address] EPI,SQUAMOUS 0 SEEN Normal 5-10 [facility] Comment on above: Order Comment: SAUL TER SPECIMEN Performed By: #### L 100.0100, L500.2500 #### [facility] [address] [place], [address] RBC 0 SEEN Normal 0-5 [facility] Comment on above: Order Comment: SAUL TER SPECIMEN Performed By: #### L 100.0100, L500.2500 #### [facility] [address] [place], [address] WBC 0 SEEN Normal 0-5 [facility] Comment on above: Order Comment: SAUL TER SPECIMEN Performed By: #### L 100.0100, L500.2500 #### [facility] [address] [place], [address] Basic Metabolic Profile (BMP )on 04-19-2025 BUN/CRE 37.7 RATIO High 10-20 [facility] Comment on above: Performed By: #### L 500.2500, L100.0100 #### [facility] [address] [place], [address] Calcium [Mass/Vol] 9.6 mg/dL Normal 7.6-11.0 [facility] Comment on above: Performed By: #### L 500.2500, L100.0100 #### [facility] [address] [place], [address] Chloride [Moles/Vol] 97 mmol/L Low 98-108 [facility] Comment on above: Performed By: #### L 500.2500, L100.0100 #### [facility] [address] [place], [address] CO2 [Moles/Vol] 29.2 mmol/L Normal 21.0-32.0 [facility] Comment on above: Performed By: #### L 500.2500, L100.0100 #### [facility] [address] [place], [address] Creatinine [Mass/Vol] 0.41 mg/dL Low 0.70-1.20 [facility] Comment on above: Performed By: #### L 500.2500, L100.0100 #### [facility] [address] [place], [address] ECRCL 140.44 ml/min Normal 50-250 [facility] Comment on above: Performed By: #### L 500.2500, L100.0100 #### [facility] [address] [place], [address] GAP 12 Normal 5-15 [facility] Comment on above: Performed By: #### L 500.2500, L100.0100 #### [facility] [address] [place], [address] GFR/1.73 sq M.predicted among non-blacks MDRD (S/P/Bld) [Vol rate/Area] 143 mL/min/{1.73_m2} Normal >60 [facility] Comment on above: Result Comment: mL/m in/1.73m2 CKD-EPI Creatinine Equation (2020) Performed By: #### L 500.2500, L100.0100 #### [facility] [address] [place], [address] Glucose [Mass/Vol] 164 mg/dL High 70-99 [facility] Comment on above: Performed By: #### L 500.2500, L100.0100 #### [facility] [address] [place], [address] Potassium [Moles/Vol] 3.9 mmol/L Normal 3.3-5.1 [facility] Comment on above: Performed By: #### L 500.2500, L100.0100 #### [facility] [address] [place], [address] Sodium [Moles/Vol] 138 mmol/L Normal 133-145 [facility] Comment on above: Performed By: #### L 500.2500, L100.0100 #### [facility] [address] [place], [address] Urea nitrogen [Mass/Vol] 15 mg/dL Normal 4-19 [facility] Comment on above: Performed By: #### L 500.2500, L100.0100 #### [facility] [address] [place], [address] Bedside Glucoseon 04-19-2025 FINGERSTICK GLU 99 mg/dL Normal 74-106 [facility] Comment on above: Result Comment: BONNIE GEMENT OF PATIENT CARE PER NURSING PROTOCOL Performed By: #### L 500.2500, L100.0100 #### [facility] [address] [place], [address] FINGERSTICK GLU 154 mg/dL High 74-106 [facility] Comment on above: Result Comment: BONNIE GEMENT OF PATIENT CARE PER NURSING PROTOCOL Performed By: #### L 501.080 #### [facility] [address] [place], [address] CBC W/Diff, Automatedon - Absolute Lymph 1.17 X10 3/uL Normal 0.83-4.51 [facility] Comment on above: Performed By: #### L 500.2500, L100.0100 #### [facility] [address] [place], [address] Absolute Neut 7.6 X10 3/uL Normal 2.0-7.7 [facility] Comment on above: Performed By: #### L 500.2500, L100.0100 #### [facility] [address] [place], [address] Basophils/100 WBC (Bld) 0.7 % Normal 0-1 [facility] Comment on above: Performed By: #### L 500.2500, L100.0100 #### [facility] [address] [place], [address] Eosinophils/100 WBC (Bld) 0.9 % Normal 0-5 [facility] Comment on above: Performed By: #### L 500.2500, L100.0100 #### [facility] [address] [place], [address] Erythrocyte distribution width (RBC) [Ratio] 12.9 % Normal 11.6-14.6 [facility] Comment on above: Performed By: #### L 500.2500, L100.0100 #### [facility] [address] [place], [address] Hematocrit (Bld) [Volume fraction] 39.6 % Normal 37-47 [facility] Comment on above: Performed By: #### L 500.2500, L100.0100 #### [facility] [address] [place], [address] Hemoglobin (Bld) [Mass/Vol] 13.0 g/dL Normal 12.0-15.0 [facility] Comment on above: Performed By: #### L 500.2500, L100.0100 #### [facility] [address] [place], [address] IG% 1.400 High 0.0-0.9 [facility] Comment on above: Result Comment: IG% - Immature Granulocytes (promyelocytes, myelocytes and metamyelocytes) > 1% indicates that a LEFT SHIFT is Present. Performed By: #### L 500.2500, L100.0100 #### [facility] [address] [place], [address] Lymphocytes/100 WBC (Bld) 12.1 % Low 19-41 [facility] Comment on above: Performed By: #### L 500.2500, L100.0100 #### [facility] [address] [place], [address] MCH (RBC) [Entitic mass] 28.8 pg Normal 27.0-32.0 [facility] Comment on above: Performed By: #### L 500.2500, L100.0100 #### [facility] [address] [place], [address] MCHC (RBC) [Mass/Vol] 32.8 g/dL Normal 32-36 [facility] Comment on above: Performed By: #### L 500.2500, L100.0100 #### [facility] [address] [place], [address] MCV (RBC) [Entitic vol] 87.8 fL Normal 81-99 [facility] Comment on above: Performed By: #### L 500.2500, L100.0100 #### [facility] [address] [place], [address] Monocytes/100 WBC (Bld) 6.0 % Normal 0-10 [facility] Comment on above: Performed By: #### L 500.2500, L100.0100 #### [facility] [address] [place], [address] Neutrophils/100 WBC (Bld) 78.9 % High 47-70 [facility] Comment on above: Performed By: #### L 500.2500, L100.0100 #### [facility] [address] [place], [address] Nucleated RBC (Bld) [#/Vol] 0 10*3/uL Normal 0-5 [facility] Comment on above: Performed By: #### L 500.2500, L100.0100 #### [facility] [address] [place], [address] Platelet mean volume (Bld) [Entitic vol] 10.3 fL Normal 6.2-12.0 [facility] Comment on above: Performed By: #### L 500.2500, L100.0100 #### [facility] [address] [place], [address] Platelets (Bld) [#/Vol] 409 10*3/uL Normal 150-450 [facility] Comment on above: Performed By: #### L 500.2500, L100.0100 #### [facility] [address] [place], [address] RBC (Bld) [#/Vol] 4.51 10*6/uL Normal 4.2-5.4 [facility] Comment on above: Performed By: #### L 500.2500, L100.0100 #### [facility] [address] [place], [address] RDW SD 41.5 fl Normal 35.1-43.9 [facility] Comment on above: Performed By: #### L 500.2500, L100.0100 #### [facility] [address] [place], [address] WBC (Bld) [#/Vol] 9.7 10*3/uL Normal 4.4-11.0 [facility] Comment on above: Performed By: #### L 500.2500, L100.0100 #### [facility] [address] [place], [address] Absolute Neut Normal 2.0-7.7 [facility] Comment on above: Result Comment: DUPL ICATE- SEE H35 Performed By: #### L 500.2500, L100.0100 #### [facility] [address] [place], [address] HCT Normal 37-47 [facility] Comment on above: Result Comment: DUPL ICATE- SEE H35 Performed By: #### L 500.2500, L100.0100 #### [facility] [address] [place], [address] HGB Normal 12.0-15.0 [facility] Comment on above: Result Comment: DUPL ICATE- SEE H35 Performed By: #### L 500.2500, L100.0100 #### [facility] [address] [place], [address] MCH Normal 27.0-32.0 [facility] Comment on above: Result Comment: DUPL ICATE- SEE H35 Performed By: #### L 500.2500, L100.0100 #### [facility] [address] [place], [address] MCHC Normal 32-36 [facility] Comment on above: Result Comment: DUPL ICATE- SEE H35 Performed By: #### L 500.2500, L100.0100 #### [facility] [address] [place], [address] MCV Normal 81-99 [facility] Comment on above: Result Comment: DUPL ICATE- SEE H35 Performed By: #### L 500.2500, L100.0100 #### [facility] [address] [place], [address] NEUT% Normal 47-70 [facility] Comment on above: Result Comment: DUPL ICATE- SEE H35 Performed By: #### L 500.2500, L100.0100 #### [facility] [address] [place], [address] PLT Normal 150-450 [facility] Comment on above: Result Comment: DUPL ICATE- SEE H35 Performed By: #### L 500.2500, L100.0100 #### [facility] [address] [place], [address] RBC Normal 4.2-5.4 [facility] Comment on above: Result Comment: DUPL ICATE- SEE H35 Performed By: #### L 500.2500, L100.0100 #### [facility] [address] [place], [address] RDW CV Normal 11.6-14.6 [facility] Comment on above: Result Comment: DUPL ICATE- SEE H35 Performed By: #### L 500.2500, L100.0100 #### [facility] [address] [place], [address] RDW SD Normal 35.1-43.9 [facility] Comment on above: Result Comment: DUPL ICATE- SEE H35 Performed By: #### L 500.2500, L100.0100 #### [facility] [address] [place], [address] WBC Normal 4.4-11.0 [facility] Comment on above: Result Comment: DUPL ICATE- SEE H35 Performed By: #### L 500.2500, L100.0100 #### [facility] [address] [place], [address] Basic Metabolic Profile (BMP )on 04-18-2025 BUN/CRE 42.1 RATIO High 04-12 [facility] Comment on above: Performed By: #### L 500.2500, L100.0100 #### [facility] [address] [place], [address] Calcium [Mass/Vol] 9.4 mg/dL Normal 7.6-11.0 [facility] Comment on above: Performed By: #### L 500.2500, L100.0100 #### [facility] [address] [place], [address] Chloride [Moles/Vol] 96 mmol/L Low 98-108 [facility] [place] Comment on above: Performed By: #### L 500.2500, L100.0100 #### [facility] [address] [place], [address] CO2 [Moles/Vol] 27.6 mmol/L Normal 21.0-32.0 [facility] Comment on above: Performed By: #### L 500.2500, L100.0100 #### [facility] [address] [place], [address] Creatinine [Mass/Vol] 0.39 mg/dL Low 0.70-1.20 [facility] Comment on above: Performed By: #### L 500.2500, L100.0100 #### [facility] [address] [place], [address] ECRCL 147.64 ml/min Normal 50-250 [facility] Comment on above: Performed By: #### L 500.2500, L100.0100 #### [facility] [address] [place], [address] GAP 11 Normal 5-15 [facility] Comment on above: Performed By: #### L 500.2500, L100.0100 #### [facility] [address] [place], [address] GFR/1.73 sq M.predicted among non-blacks MDRD (S/P/Bld) [Vol rate/Area] 144 mL/min/{1.73_m2} Normal >60 [facility] Comment on above: Result Comment: mL/m in/1.73m2 CKD-EPI Creatinine Equation (2020) Performed By: #### L 500.2500, L100.0100 #### [facility] [address] [place], [address] Glucose [Mass/Vol] 162 mg/dL High 70-99 [facility] Comment on above: Performed By: #### L 500.2500, L100.0100 #### [facility] [address] [place], [address] Potassium [Moles/Vol] 3.8 mmol/L Normal 3.3-5.1 [facility] Comment on above: Performed By: #### L 500.2500, L100.0100 #### [facility] [address] [place], [address] Sodium [Moles/Vol] 135 mmol/L Normal 133-145 [facility] Comment on above: Performed By: #### L 500.2500, L100.0100 #### [facility] [address] [place], [address] Urea nitrogen [Mass/Vol] 17 mg/dL Normal 4-19 [facility] Comment on above: Performed By: #### L 500.2500, L100.0100 #### [facility] [address] [place], [address] Bedside Glucoseon 04-18-2025 FINGERSTICK GLU 122 mg/dL High 74-106 [facility] Comment on above: Result Comment: BONNIE GEMENT OF PATIENT CARE PER NURSING PROTOCOL Performed By: #### L 501.080 #### [facility] [address] [place], [address] FINGERSTICK GLU 171 mg/dL High 74-106 [facility] Comment on above: Result Comment: BONNIE GEMENT OF PATIENT CARE PER NURSING PROTOCOL Performed By: #### L 500.2500, L100.0100 #### [facility] [address] [place], [address] CBC W/Diff, Automatedon - Absolute Lymph 1.13 X10 3/uL Normal 0.83-4.51 [facility] Comment on above: Performed By: #### L 500.2500, L100.0100 #### [facility] [address] [place], [address] Absolute Neut 8.2 X10 3/uL High 2.0-7.7 [facility] Comment on above: Performed By: #### L 500.2500, L100.0100 #### [facility] [address] [place], [address] Basophils/100 WBC (Bld) 0.4 % Normal 0-1 [facility] Comment on above: Performed By: #### L 500.2500, L100.0100 #### [facility] [address] [place], [address] Eosinophils/100 WBC (Bld) 1.0 % Normal 0-5 [facility] Comment on above: Performed By: #### L 500.2500, L100.0100 #### [facility] [address] [place], [address] Erythrocyte distribution width (RBC) [Ratio] 12.9 % Normal 11.6-14.6 [facility] Comment on above: Performed By: #### L 500.2500, L100.0100 #### [facility] [address] [place], [address] Hematocrit (Bld) [Volume fraction] 38.5 % Normal 37-47 [facility] Comment on above: Performed By: #### L 500.2500, L100.0100 #### [facility] [address] [place], [address] Hemoglobin (Bld) [Mass/Vol] 13.1 g/dL Normal 12.0-15.0 [facility] Comment on above: Performed By: #### L 500.2500, L100.0100 #### [facility] [address] [place], [address] IG% 1.500 High 0.0-0.9 [facility] Comment on above: Result Comment: IG% - Immature Granulocytes (promyelocytes, myelocytes and metamyelocytes) > 1% indicates that a LEFT SHIFT is Present. Performed By: #### L 500.2500, L100.0100 #### [facility] [address] [place], [address] Lymphocytes/100 WBC (Bld) 11.1 % Low 19-41 [facility] Comment on above: Performed By: #### L 500.2500, L100.0100 #### [facility] [address] [place], [address] MCH (RBC) [Entitic mass] 29.6 pg Normal 27.0-32.0 [facility] Comment on above: Performed By: #### L 500.2500, L100.0100 #### [facility] [address] [place], [address] MCHC (RBC) [Mass/Vol] 34.0 g/dL Normal 32-36 [facility] Comment on above: Performed By: #### L 500.2500, L100.0100 #### [facility] [address] [place], [address] MCV (RBC) [Entitic vol] 87.1 fL Normal 81-99 [facility] Comment on above: Performed By: #### L 500.2500, L100.0100 #### [facility] [address] [place], [address] Monocytes/100 WBC (Bld) 6.2 % Normal 0-10 [facility] Comment on above: Performed By: #### L 500.2500, L100.0100 #### [facility] [address] [place], [address] Neutrophils/100 WBC (Bld) 79.8 % High 47-70 [facility] Comment on above: Performed By: #### L 500.2500, L100.0100 #### [facility] [address] [place], [address] Nucleated RBC (Bld) [#/Vol] 0 10*3/uL Normal 0-5 [facility] Comment on above: Performed By: #### L 500.2500, L100.0100 #### [facility] [address] [place], [address] Platelet mean volume (Bld) [Entitic vol] 10.2 fL Normal 6.2-12.0 [facility] Comment on above: Performed By: #### L 500.2500, L100.0100 #### [facility] [address] [place], [address] Platelets (Bld) [#/Vol] 434 10*3/uL Normal 150-450 [facility] Comment on above: Performed By: #### L 500.2500, L100.0100 #### [facility] [address] [place], [address] RBC (Bld) [#/Vol] 4.42 10*6/uL Normal 4.2-5.4 [facility] Comment on above: Performed By: #### L 500.2500, L100.0100 #### [facility] [address] [place], [address] RDW SD 40.6 fl Normal 35.1-43.9 [facility] Comment on above: Performed By: #### L 500.2500, L100.0100 #### [facility] [address] [place], [address] WBC (Bld) [#/Vol] 10.2 10*3/uL Normal 4.4-11.0 [facility] Comment on above: Performed By: #### L 500.2500, L100.0100 #### [facility] [address] [place], [address] Basic Metabolic Profile (BMP )on 04-17-2024 BUN/CRE 42.7 RATIO High 10-20 [facility] Comment on above: Performed By: #### L 501.080 #### [facility] [address] [place], [address] Calcium [Mass/Vol] 9.8 mg/dL Normal 7.6-11.0 [facility] Comment on above: Performed By: #### L 501.080 #### [facility] [address] [place], [address] Chloride [Moles/Vol] 99 mmol/L Normal 98-108 [facility] [place] Comment on above: Performed By: #### L 501.080 #### [facility] [address] [place], [address] CO2 [Moles/Vol] 27.1 mmol/L Normal 21.0-32.0 [facility] Comment on above: Performed By: #### L 501.080 #### [facility] [address] [place], [address] Creatinine [Mass/Vol] 0.47 mg/dL Low 0.70-1.20 [facility] Comment on above: Performed By: #### L 501.080 #### [facility] [address] [place], [address] ECRCL 122.51 ml/min Normal 50-250 [facility] Comment on above: Performed By: #### L 501.080 #### [facility] [address] [place], [address] GAP 12 Normal 5-15 [facility] Comment on above: Performed By: #### L 501.080 #### [facility] [address] [place], [address] GFR/1.73 sq M.predicted among non-blacks MDRD (S/P/Bld) [Vol rate/Area] 138 mL/min/{1.73_m2} Normal >60 [facility] Comment on above: Result Comment: mL/m in/1.73m2 CKD-EPI Creatinine Equation (2020) Performed By: #### L 501.080 #### [facility] [address] [place], [address] Glucose [Mass/Vol] 200 mg/dL High 70-99 [facility] Comment on above: Performed By: #### L 501.080 #### [facility] [address] [place], [address] Potassium [Moles/Vol] 4.4 mmol/L Normal 3.3-5.1 [facility] Comment on above: Performed By: #### L 501.080 #### [facility] [address] [place], [address] Sodium [Moles/Vol] 137 mmol/L Normal 133-145 [facility] Comment on above: Performed By: #### L 501.080 #### [facility] [address] [place], [address] Urea nitrogen [Mass/Vol] 20 mg/dL High 4-19 [facility] Comment on above: Performed By: #### L 501.080 #### [facility] [address] [place], [address] Bedside Glucoseon 04-17-2024 FINGERSTICK GLU 124 mg/dL High 74-106 [facility] Comment on above: Result Comment: BONNIE GEMENT OF PATIENT CARE PER NURSING PROTOCOL Performed By: #### L 500.2500, L100.0100 #### [facility] [address] [place], [address] FINGERSTICK GLU 159 mg/dL High 74-106 [facility] Comment on above: Result Comment: BONNIE GEMENT OF PATIENT CARE PER NURSING PROTOCOL Performed By: #### L 100.0100, L500.2500 #### [facility] [address] [place], [address] CBC W/Diff, Automatedon 10-2 Absolute Lymph 1.28 X10 3/uL Normal 0.83-4.51 [facility] Comment on above: Performed By: #### L 501.080 #### [facility] [address] [place], [address] Absolute Neut 8.3 X10 3/uL High 2.0-7.7 [facility] Comment on above: Performed By: #### L 501.080 #### [facility] [address] [place], [address] Basophils/100 WBC (Bld) 0.6 % Normal 0-1 [facility] Comment on above: Performed By: #### L 501.080 #### [facility] [address] [place], [address] Eosinophils/100 WBC (Bld) 0.8 % Normal 0-5 [facility] Comment on above: Performed By: #### L 501.080 #### [facility] [address] [place], [address] Erythrocyte distribution width (RBC) [Ratio] 13.0 % Normal 11.6-14.6 [facility] Comment on above: Performed By: #### L 501.080 #### [facility] [address] [place], [address] Hematocrit (Bld) [Volume fraction] 39.6 % Normal 37-47 [facility] Comment on above: Performed By: #### L 501.080 #### [facility] [address] [place], [address] Hemoglobin (Bld) [Mass/Vol] 13.2 g/dL Normal 12.0-15.0 [facility] Comment on above: Performed By: #### L 501.080 #### [facility] [address] [place], [address] IG% 2.200 High 0.0-0.9 [facility] Comment on above: Result Comment: IG% - Immature Granulocytes (promyelocytes, myelocytes and metamyelocytes) > 1% indicates that a LEFT SHIFT is Present. Performed By: #### L 501.080 #### [facility] [address] [place], [address] Lymphocytes/100 WBC (Bld) 12.0 % Low 19-41 [facility] Comment on above: Performed By: #### L 501.080 #### [facility] [address] [place], [address] MCH (RBC) [Entitic mass] 29.3 pg Normal 27.0-32.0 [facility] Comment on above: Performed By: #### L 501.080 #### [facility] [address] [place], [address] MCHC (RBC) [Mass/Vol] 33.3 g/dL Normal 32-36 [facility] Comment on above: Performed By: #### L 501.080 #### [facility] [address] [place], [address] MCV (RBC) [Entitic vol] 88.0 fL Normal 81-99 [facility] Comment on above: Performed By: #### L 501.080 #### [facility] [address] [place], [address] Monocytes/100 WBC (Bld) 6.6 % Normal 0-10 [facility] Comment on above: Performed By: #### L 501.080 #### [facility] [address] [place], [address] Neutrophils/100 WBC (Bld) 77.8 % High 47-70 [facility] Comment on above: Performed By: #### L 501.080 #### [facility] [address] [place], [address] Nucleated RBC (Bld) [#/Vol] 0 10*3/uL Normal 0-5 [facility] Comment on above: Performed By: #### L 501.080 #### [facility] [address] [place], [address] Platelet mean volume (Bld) [Entitic vol] 10.4 fL Normal 6.2-12.0 [facility] Comment on above: Performed By: #### L 501.080 #### [facility] [address] [place], [address] Platelets (Bld) [#/Vol] 467 10*3/uL High 150-450 [facility] Comment on above: Performed By: #### L 501.080 #### [facility] [address] [place], [address] RBC (Bld) [#/Vol] 4.50 10*6/uL Normal 4.2-5.4 [facility] Comment on above: Performed By: #### L 501.080 #### [facility] [address] [place], [address] RDW SD 41.8 fl Normal 35.1-43.9 [facility] Comment on above: Performed By: #### L 501.080 #### [facility] [address] [place], [address] WBC (Bld) [#/Vol] 10.7 10*3/uL Normal 4.4-11.0 [facility] Comment on above: Performed By: #### L 501.080 #### [facility] [address] [place], [address] Basic Metabolic Profile (BMP )on 04-16-2025 BUN/CRE 37.4 RATIO High 10-20 [facility] Comment on above: Performed By: #### L 500.2500, L100.0100 #### [facility] [address] [place], [address] Calcium [Mass/Vol] 9.4 mg/dL Normal 7.6-11.0 [facility] Comment on above: Performed By: #### L 500.2500, L100.0100 #### [facility] [address] [place], [address] Chloride [Moles/Vol] 99 mmol/L Normal 98-108 [facility] Comment on above: Performed By: #### L 500.2500, L100.0100 #### [facility] [address] [place], [address] CO2 [Moles/Vol] 25.5 mmol/L Normal 21.0-32.0 [facility] Comment on above: Performed By: #### L 500.2500, L100.0100 #### [facility] [address] [place], [address] Creatinine [Mass/Vol] 0.48 mg/dL Low 0.70-1.20 [facility] Comment on above: Performed By: #### L 500.2500, L100.0100 #### [facility] [address] [place], [address] ECRCL 119.96 ml/min Normal 50-250 [facility] Comment on above: Performed By: #### L 500.2500, L100.0100 #### [facility] [address] [place], [address] GAP 13 Normal 5-15 [facility] Comment on above: Performed By: #### L 500.2500, L100.0100 #### [facility] [address] [place], [address] GFR/1.73 sq M.predicted among non-blacks MDRD (S/P/Bld) [Vol rate/Area] 137 mL/min/{1.73_m2} Normal >60 [facility] Comment on above: Result Comment: mL/m in/1.73m2 CKD-EPI Creatinine Equation (2020) Performed By: #### L 500.2500, L100.0100 #### [facility] [address] [place], [address] Glucose [Mass/Vol] 212 mg/dL High 70-99 [facility] Comment on above: Performed By: #### L 500.2500, L100.0100 #### [facility] [address] [place], [address] Potassium [Moles/Vol] 3.9 mmol/L Normal 3.3-5.1 [facility] Comment on above: Performed By: #### L 500.2500, L100.0100 #### [facility] [address] [place], [address] Sodium [Moles/Vol] 137 mmol/L Normal 133-145 [facility] Comment on above: Performed By: #### L 500.2500, L100.0100 #### [facility] [address] [place], [address] Urea nitrogen [Mass/Vol] 18 mg/dL Normal 4-19 [facility] Comment on above: Performed By: #### L 500.2500, L100.0100 #### [facility] [address] [place], [address] Bedside Glucoseon 04-16-2025 FINGERSTICK GLU 173 mg/dL High 74-106 [facility] Comment on above: Result Comment: BONNIE GEMENT OF PATIENT CARE PER NURSING PROTOCOL Performed By: #### L 100.0100, L500.2500 #### [facility] [address] [place], [address] FINGERSTICK GLU 166 mg/dL High 74-106 [facility] Comment on above: Result Comment: BONNIE GEMENT OF PATIENT CARE PER NURSING PROTOCOL Performed By: #### L 501.080 #### [facility] [address] [place], [address] FINGERSTICK GLU 156 mg/dL High 74-106 [facility] Comment on above: Result Comment: BONNIE GEMENT OF PATIENT CARE PER NURSING PROTOCOL Performed By: #### L 500.2500, L100.0100 #### [facility] [address] [place], [address] CBC W/Diff, Automatedon 10-2 -2024 Absolute Lymph 1.40 X10 3/uL Normal 0.83-4.51 [facility] Comment on above: Performed By: #### L 500.2500, L100.0100 #### [facility] [address] [place], [address] Absolute Neut 8.1 X10 3/uL High 2.0-7.7 [facility] Comment on above: Performed By: #### L 500.2500, L100.0100 #### [facility] [address] [place], [address] Basophils/100 WBC (Bld) 0.6 % Normal 0-1 [facility] Comment on above: Performed By: #### L 500.2500, L100.0100 #### [facility] [address] [place], [address] Eosinophils/100 WBC (Bld) 0.8 % Normal 0-5 [facility] Comment on above: Performed By: #### L 500.2500, L100.0100 #### [facility] [address] [place], [address] Erythrocyte distribution width (RBC) [Ratio] 12.9 % Normal 11.6-14.6 [facility] Comment on above: Performed By: #### L 500.2500, L100.0100 #### [facility] [address] [place], [address] Hematocrit (Bld) [Volume fraction] 38.4 % Normal 37-47 [facility] Comment on above: Performed By: #### L 500.2500, L100.0100 #### [facility] [address] [place], [address] Hemoglobin (Bld) [Mass/Vol] 12.8 g/dL Normal 12.0-15.0 [facility] Comment on above: Performed By: #### L 500.2500, L100.0100 #### [facility] [address] [place], [address] IG% 2.200 High 0.0-0.9 [facility] Comment on above: Result Comment: IG% - Immature Granulocytes (promyelocytes, myelocytes and metamyelocytes) > 1% indicates that a LEFT SHIFT is Present. Performed By: #### L 500.2500, L100.0100 #### [facility] [address] [place], [address] Lymphocytes/100 WBC (Bld) 13.2 % Low 19-41 [facility] Comment on above: Performed By: #### L 500.2500, L100.0100 #### [facility] [address] [place], [address] MCH (RBC) [Entitic mass] 29.2 pg Normal 27.0-32.0 [facility] Comment on above: Performed By: #### L 500.2500, L100.0100 #### [facility] [address] [place], [address] MCHC (RBC) [Mass/Vol] 33.3 g/dL Normal 32-36 [facility] Comment on above: Performed By: #### L 500.2500, L100.0100 #### [facility] [address] [place], [address] MCV (RBC) [Entitic vol] 87.5 fL Normal 81-99 [facility] Comment on above: Performed By: #### L 500.2500, L100.0100 #### [facility] [address] [place], [address] Monocytes/100 WBC (Bld) 7.0 % Normal 0-10 [facility] Comment on above: Performed By: #### L 500.2500, L100.0100 #### [facility] [address] [place], [address] Neutrophils/100 WBC (Bld) 76.2 % High 47-70 [facility] Comment on above: Performed By: #### L 500.2500, L100.0100 #### [facility] [address] [place], [address] Nucleated RBC (Bld) [#/Vol] 0 10*3/uL Normal 0-5 [facility] Comment on above: Performed By: #### L 500.2500, L100.0100 #### [facility] [address] [place], [address] Platelet mean volume (Bld) [Entitic vol] 10.2 fL Normal 6.2-12.0 [facility] Comment on above: Performed By: #### L 500.2500, L100.0100 #### [facility] [address] [place], [address] Platelets (Bld) [#/Vol] 493 10*3/uL High 150-450 [facility] Comment on above: Performed By: #### L 500.2500, L100.0100 #### [facility] [address] [place], [address] RBC (Bld) [#/Vol] 4.39 10*6/uL Normal 4.2-5.4 [facility] Comment on above: Performed By: #### L 500.2500, L100.0100 #### [facility] [address] [place], [address] RDW SD 41.1 fl Normal 35.1-43.9 [facility] Comment on above: Performed By: #### L 500.2500, L100.0100 #### [facility] [address] [place], [address] WBC (Bld) [#/Vol] 10.6 10*3/uL Normal 4.4-11.0 [facility] Comment on above: Performed By: #### L 500.2500, L100.0100 #### [facility] [address] [place], [address] Basic Metabolic Profile (BMP )on 04-15-2025 BUN/CRE 34.7 RATIO High 10-20 [facility] Comment on above: Performed By: #### L 500.2500, L100.0100 #### [facility] [address] [place], [address] Calcium [Mass/Vol] 9.5 mg/dL Normal 7.6-11.0 [facility] Comment on above: Performed By: #### L 500.2500, L100.0100 #### [facility] [address] [place], [address] Chloride [Moles/Vol] 99 mmol/L Normal 98-108 [facility] [facility] [place] Comment on above: Performed By: #### L 500.2500, L100.0100 #### [facility] [address] [place], [address] CO2 [Moles/Vol] 23.0 mmol/L Normal 21.0-32.0 [facility] Comment on above: Performed By: #### L 500.2500, L100.0100 #### [facility] [address] [place], [address] Creatinine [Mass/Vol] 0.53 mg/dL Low 0.70-1.20 [facility] Comment on above: Performed By: #### L 500.2500, L100.0100 #### [facility] [address] [place], [address] ECRCL 108.64 ml/min Normal 50-250 [facility] Comment on above: Performed By: #### L 500.2500, L100.0100 #### [facility] [address] [place], [address] GAP 14 Normal 5-15 [facility] Comment on above: Performed By: #### L 500.2500, L100.0100 #### [facility] [address] [place], [address] GFR/1.73 sq M.predicted among non-blacks MDRD (S/P/Bld) [Vol rate/Area] 134 mL/min/{1.73_m2} Normal >60 [facility] Comment on above: Result Comment: mL/m in/1.73m2 CKD-EPI Creatinine Equation (2020) Performed By: #### L 500.2500, L100.0100 #### [facility] [address] [place], [address] Glucose [Mass/Vol] 195 mg/dL High 70-99 [facility] Comment on above: Performed By: #### L 500.2500, L100.0100 #### [facility] [address] [place], [address] Potassium [Moles/Vol] 3.8 mmol/L Normal 3.3-5.1 [facility] Comment on above: Performed By: #### L 500.2500, L100.0100 #### [facility] [address] [place], [address] Sodium [Moles/Vol] 136 mmol/L Normal 133-145 [facility] Comment on above: Performed By: #### L 500.2500, L100.0100 #### [facility] [address] [place], [address] Urea nitrogen [Mass/Vol] 18 mg/dL Normal 4-19 [facility] Comment on above: Performed By: #### L 500.2500, L100.0100 #### [facility] [address] [place], [address] Bedside Glucoseon 04-15-2025 FINGERSTICK GLU 147 mg/dL High 74-106 [facility] Comment on above: Result Comment: BONNIE AL OF PATIENT CARE PER NURSING PROTOCOL Performed By: #### L 501.080 #### [facility] [address] [place], [address] CBC W/Diff, Automatedon 10-2 Absolute Lymph 1.17 X10 3/uL Normal 0.83-4.51 [facility] Comment on above: Performed By: #### L 500.2500, L100.0100 #### [facility] [address] [place], [address] Absolute Neut 7.5 X10 3/uL Normal 2.0-7.7 [facility] Comment on above: Performed By: #### L 500.2500, L100.0100 #### [facility] [address] [place], [address] Basophils/100 WBC (Bld) 0.9 % Normal 0-1 [facility] Comment on above: Performed By: #### L 500.2500, L100.0100 #### [facility] [address] [place], [address] Eosinophils/100 WBC (Bld) 1.1 % Normal 0-5 [facility] Comment on above: Performed By: #### L 500.2500, L100.0100 #### [facility] [address] [place], [address] Erythrocyte distribution width (RBC) [Ratio] 13.0 % Normal 11.6-14.6 [facility] Comment on above: Performed By: #### L 500.2500, L100.0100 #### [facility] [address] [place], [address] Hematocrit (Bld) [Volume fraction] 37.3 % Normal 37-47 [facility] Comment on above: Performed By: #### L 500.2500, L100.0100 #### [facility] [address] [place], [address] Hemoglobin (Bld) [Mass/Vol] 12.4 g/dL Normal 12.0-15.0 [facility] Comment on above: Performed By: #### L 500.2500, L100.0100 #### [facility] [address] [place], [address] IG% 3.000 High 0.0-0.9 [facility] Comment on above: Result Comment: IG% - Immature Granulocytes (promyelocytes, myelocytes and metamyelocytes) > 1% indicates that a LEFT SHIFT is Present. Performed By: #### L 500.2500, L100.0100 #### [facility] [address] [place], [address] Lymphocytes/100 WBC (Bld) 11.9 % Low 19-41 [facility] Comment on above: Performed By: #### L 500.2500, L100.0100 #### [facility] [address] [place], [address] MCH (RBC) [Entitic mass] 29.1 pg Normal 27.0-32.0 [facility] Comment on above: Performed By: #### L 500.2500, L100.0100 #### [facility] [address] [place], [address] MCHC (RBC) [Mass/Vol] 33.2 g/dL Normal 32-36 [facility] Comment on above: Performed By: #### L 500.2500, L100.0100 #### [facility] [address] [place], [address] MCV (RBC) [Entitic vol] 87.6 fL Normal 81-99 [facility] Comment on above: Performed By: #### L 500.2500, L100.0100 #### [facility] [address] [place], [address] Monocytes/100 WBC (Bld) 6.7 % Normal 0-10 [facility] Comment on above: Performed By: #### L 500.2500, L100.0100 #### [facility] [address] [place], [address] Neutrophils/100 WBC (Bld) 76.4 % High 47-70 [facility] Comment on above: Performed By: #### L 500.2500, L100.0100 #### [facility] [address] [place], [address] Nucleated RBC (Bld) [#/Vol] 0 10*3/uL Normal 0-5 [facility] Comment on above: Performed By: #### L 500.2500, L100.0100 #### [facility] [address] [place], [address] Platelet mean volume (Bld) [Entitic vol] 10.3 fL Normal 6.2-12.0 [facility] Comment on above: Performed By: #### L 500.2500, L100.0100 #### [facility] [address] [place], [address] Platelets (Bld) [#/Vol] 476 10*3/uL High 150-450 [facility] Comment on above: Performed By: #### L 500.2500, L100.0100 #### [facility] [address] [place], [address] RBC (Bld) [#/Vol] 4.26 10*6/uL Normal 4.2-5.4 [facility] Comment on above: Performed By: #### L 500.2500, L100.0100 #### [facility] [address] [place], [address] RDW SD 41.0 fl Normal 35.1-43.9 [facility] Comment on above: Performed By: #### L 500.2500, L100.0100 #### [facility] [address] [place], [address] WBC (Bld) [#/Vol] 9.8 10*3/uL Normal 4.4-11.0 [facility] Comment on above: Performed By: #### L 500.2500, L100.0100 #### [facility] [address] [place], [address] CT TRANSFER OF OUTSIDE FILMS on 04-15-2025 CT TRANSFER OF OUTSIDE FILMS Outside images for comparison or treatment purposes, not interpreted by Radiologists. Normal [facility] Study Interpretation of outs galina studyon 04-15-2025 Outside images for comparison or treatment purposes, not interpreted by Radiologists. IMAGING Bedside Glucoseon 04-14-2025 FINGERSTICK GLU 128 mg/dL High 74-106 [facility] Comment on above: Result Comment: BONNIE GEMENT OF PATIENT CARE PER NURSING PROTOCOL Performed By: #### L 501.080 #### [facility] [address] [place], [address] FINGERSTICK GLU 127 mg/dL High 74-106 [facility] Comment on above: Result Comment: BONNIE GEMENT OF PATIENT CARE PER NURSING PROTOCOL Performed By: #### L 501.080 #### [facility] [address] [place], [address] Bedside Glucoseon 04-13-2025 FINGERSTICK GLU 162 mg/dL High 74-106 [facility] Comment on above: Result Comment: BONNIE GEMENT OF PATIENT CARE PER NURSING PROTOCOL Performed By: #### L 501.080 #### [facility] [address] [place], [address] FINGERSTICK GLU 142 mg/dL High 74-106 [facility] Comment on above: Result Comment: BONNIE GEMENT OF PATIENT CARE PER NURSING PROTOCOL Performed By: #### L 501.080 #### [facility] [address] [place], [address] FINGERSTICK GLU 169 mg/dL High 74-106 [facility] Comment on above: Result Comment: BONNIE GEMENT OF PATIENT CARE PER NURSING PROTOCOL Performed By: #### L 500.2500, L100.0100 #### [facility] [address] [place], [address] FINGERSTICK GLU 134 mg/dL [facility]106 [facility] Comment on above: Result Comment: BONNIE GEMENT OF PATIENT CARE PER NURSING PROTOCOL Performed By: #### L 500.2500, L100.0100 #### [facility] [address] [place], [address] Bedside Glucoseon 04-12-2025 FINGERSTICK GLU 167 mg/dL High [address] [place] [address] Comment on above: Result Comment: BONNIE GEMENT OF PATIENT CARE PER NURSING PROTOCOL Performed By: #### L 500.2500, L100.0100 #### [facility] [address] [place], [address] FINGERSTICK GLU 175 mg/dL High [address] [place] [address] Comment on above: Result Comment: BONNIE GEMENT OF PATIENT CARE PER NURSING PROTOCOL Performed By: #### L 100.0100, L500.2500 #### [facility] [address] [place], [address] FINGERSTICK GLU 141 mg/dL High [address] [place] [address] Comment on above: Result Comment: BONNIE GEMENT OF PATIENT CARE PER NURSING PROTOCOL Performed By: #### L 501.080 #### [facility] [address] [place], [address] Bedside Glucoseon 5 FINGERSTICK GLU 171 mg/dL High [address] [place] [address] Comment on above: Result Comment: BONNIE GEMENT OF PATIENT CARE PER NURSING PROTOCOL Performed By: #### L 501.080 #### [facility] [address] [place], [address] FINGERSTICK GLU 145 mg/dL High -106 [facility] Comment on above: Result Comment: BONNIE GEMENT OF PATIENT CARE PER NURSING PROTOCOL Performed By: #### L 501.080 #### [facility] [address] [place], [address] FINGERSTICK GLU 172 mg/dL High 74-106 [facility] Comment on above: Result Comment: BONNIE GEMENT OF PATIENT CARE PER NURSING PROTOCOL Performed By: #### L 501.080 #### [facility] [address] [place], [address] FINGERSTICK GLU 151 mg/dL High 74-106 [facility] Comment on above: Result Comment: BONNIE GEMENT OF PATIENT CARE PER NURSING PROTOCOL Performed By: #### L 100.0100, L500.2500 #### [facility] [address] [place], [address] Urine Cultureon 04-11-2025 [facility] Klebsiella aerogenes [place] Count >100,000 Klebsiella aerogenes: REACTION Cefepime Islt MOHAN 1 cefTRIAXone Islt MOHAN 32 R Ciprofloxacin Islt MOHAN <=0.06 S Gentamicin Islt MOHAN <=1 S levoFLOXacin Islt MOHAN <=0.12 S Meropenem Islt MOHAN <=0.25 S Nitrofurantoin Islt MOHAN 64 I Pip+Tazo Islt MOHAN >=128 R TMP SMX Islt MOHAN <=20 S Normal [facility] Comment on above: Performed By: #### L 100.0100, L500.2500 #### [facility] [address] [place], [address] Bedside Glucoseon 04-10-2025 FINGERSTICK GLU 153 mg/dL High -106 [facility] Comment on above: Result Comment: BONNIE GEMENT OF PATIENT CARE PER NURSING PROTOCOL Performed By: #### L 501.080 #### [facility] [address] [place], [address] FINGERSTICK GLU 170 mg/dL High 74-106 [facility] Comment on above: Result Comment: BONNIE GEMENT OF PATIENT CARE PER NURSING PROTOCOL Performed By: #### L 100.0100, L500.2500 #### [facility] [address] [place], [address] FINGERSTICK GLU 128 mg/dL High 74-106 [facility] Comment on above: Result Comment: BONNIE GEMENT OF PATIENT CARE PER NURSING PROTOCOL Performed By: #### L 501.080 #### [facility] [address] [place], [address] FINGERSTICK GLU 151 mg/dL High 74-106 [facility] Comment on above: Result Comment: BONNIE GEMENT OF PATIENT CARE PER NURSING PROTOCOL Performed By: #### L 501.080 #### [facility] [address] [place], [address] Basic Metabolic Profile (BMP )on 04-09-2024 BUN/CRE 29.9 RATIO High 10-20 [facility] Comment on above: Performed By: #### L 500.2500, L100.0100 #### [facility] [address] [place], [address] Calcium [Mass/Vol] 9.5 mg/dL Normal 7.6-11.0 [facility] Comment on above: Performed By: #### L 500.2500, L100.0100 #### [facility] [address] [place], [address] Chloride [Moles/Vol] 95 mmol/L Low 98-108 [facility] [place] Comment on above: Performed By: #### L 500.2500, L100.0100 #### [facility] [address] [place], [address] CO2 [Moles/Vol] 25.4 mmol/L Normal 21.0-32.0 [facility] Comment on above: Performed By: #### L 500.2500, L100.0100 #### [facility] [address] [place], [address] Creatinine [Mass/Vol] 0.47 mg/dL Low 0.70-1.20 [facility] Comment on above: Performed By: #### L 500.2500, L100.0100 #### [facility] [address] [place], [address] ECRCL 122.51 ml/min Normal 50-250 [facility] Comment on above: Performed By: #### L 500.2500, L100.0100 #### [facility] [address] [place], [address] GAP 13 Normal 5-15 [facility] Comment on above: Performed By: #### L 500.2500, L100.0100 #### [facility] [address] [place], [address] GFR/1.73 sq M.predicted among non-blacks MDRD (S/P/Bld) [Vol rate/Area] 138 mL/min/{1.73_m2} Normal >60 [facility] Comment on above: Result Comment: mL/m in/1.73m2 CKD-EPI Creatinine Equation (2020) Performed By: #### L 500.2500, L100.0100 #### [facility] [address] [place], [address] Glucose [Mass/Vol] 130 mg/dL High 70-99 [facility] Comment on above: Performed By: #### L 500.2500, L100.0100 #### [facility] [address] [place], [address] Potassium [Moles/Vol] 3.8 mmol/L Normal 3.3-5.1 [facility] Comment on above: Performed By: #### L 500.2500, L100.0100 #### [facility] [address] [place], [address] Sodium [Moles/Vol] 134 mmol/L Normal 133-145 [facility] Comment on above: Performed By: #### L 500.2500, L100.0100 #### [facility] [address] [place], [address] Urea nitrogen [Mass/Vol] 14 mg/dL Normal 4-19 [facility] Comment on above: Performed By: #### L 500.2500, L100.0100 #### [facility] [address] [place], [address] Bedside Glucoseon 04-09-2025 FINGERSTICK GLU 119 mg/dL High 74-106 [facility] Comment on above: Result Comment: BONNIE GEMENT OF PATIENT CARE PER NURSING PROTOCOL Performed By: #### L 100.0100, L500.2500 #### [facility] [address] [place], [address] FINGERSTICK GLU 157 mg/dL High 74-106 [facility] Comment on above: Result Comment: BONNIE GEMENT OF PATIENT CARE PER NURSING PROTOCOL Performed By: #### L 501.080 #### [facility] [address] [place], [address] FINGERSTICK GLU 135 mg/dL High 74-106 [facility] Comment on above: Result Comment: BONNIE GEMENT OF PATIENT CARE PER NURSING PROTOCOL Performed By: #### L 501.080 #### [facility] [address] [place], [address] CBC W/Diff, Automatedon 10- Absolute Lymph 1.46 X10 3/uL Normal 0.83-4.51 [facility] Comment on above: Performed By: #### L 500.2500, L100.0100 #### [facility] [address] [place], [address] Absolute Neut 7.5 X10 3/uL Normal 2.0-7.7 [facility] Comment on above: Performed By: #### L 500.2500, L100.0100 #### [facility] [address] [place], [address] Basophils/100 WBC (Bld) 0.4 % Normal 0-1 [facility] Comment on above: Performed By: #### L 500.2500, L100.0100 #### [facility] [address] [place], [address] Eosinophils/100 WBC (Bld) 0.1 % Normal 0-5 [facility] Comment on above: Performed By: #### L 500.2500, L100.0100 #### [facility] [address] [place], [address] Erythrocyte distribution width (RBC) [Ratio] 12.8 % Normal 11.6-14.6 [facility] Comment on above: Performed By: #### L 500.2500, L100.0100 #### [facility] [address] [place], [address] Hematocrit (Bld) [Volume fraction] 33.6 % Low 37-47 [facility] Comment on above: Performed By: #### L 500.2500, L100.0100 #### [facility] [address] [place], [address] Hemoglobin (Bld) [Mass/Vol] 11.4 g/dL Low 12.0-15.0 [facility] Comment on above: Performed By: #### L 500.2500, L100.0100 #### [facility] [address] [place], [address] IG% 1.100 High 0.0-0.9 [facility] Comment on above: Result Comment: IG% - Immature Granulocytes (promyelocytes, myelocytes and metamyelocytes) > 1% indicates that a LEFT SHIFT is Present. Performed By: #### L 500.2500, L100.0100 #### [facility] [address] [place], [address] Lymphocytes/100 WBC (Bld) 14.4 % Low 19-41 [facility] Comment on above: Performed By: #### L 500.2500, L100.0100 #### [facility] [address] [place], [address] MCH (RBC) [Entitic mass] 29.2 pg Normal 27.0-32.0 [facility] Comment on above: Performed By: #### L 500.2500, L100.0100 #### [facility] [address] [place], [address] MCHC (RBC) [Mass/Vol] 33.9 g/dL Normal 32-36 [facility] Comment on above: Performed By: #### L 500.2500, L100.0100 #### [facility] [address] [place], [address] MCV (RBC) [Entitic vol] 86.2 fL Normal 81-99 [facility] Comment on above: Performed By: #### L 500.2500, L100.0100 #### [facility] [address] [place], [address] Monocytes/100 WBC (Bld) 9.8 % Normal 0-10 [facility] Comment on above: Performed By: #### L 500.2500, L100.0100 #### [facility] [address] [place], [address] Neutrophils/100 WBC (Bld) 74.2 % High 47-70 [facility] Comment on above: Performed By: #### L 500.2500, L100.0100 #### [facility] [address] [place], [address] Nucleated RBC (Bld) [#/Vol] 0 10*3/uL Normal 0-5 [facility] Comment on above: Performed By: #### L 500.2500, L100.0100 #### [facility] [address] [place], [address] Platelet mean volume (Bld) [Entitic vol] 10.9 fL Normal 6.2-12.0 [facility] Comment on above: Performed By: #### L 500.2500, L100.0100 #### [facility] [address] [place], [address] Platelets (Bld) [#/Vol] 325 10*3/uL Normal 150-450 [facility] Comment on above: Performed By: #### L 500.2500, L100.0100 #### [facility] [address] [place], [address] RBC (Bld) [#/Vol] 3.90 10*6/uL Low 4.2-5.4 [facility] Comment on above: Performed By: #### L 500.2500, L100.0100 #### [facility] [address] [place], [address] RDW SD 39.9 fl Normal 35.1-43.9 [facility] Comment on above: Performed By: #### L 500.2500, L100.0100 #### [facility] [address] [place], [address] WBC (Bld) [#/Vol] 10.1 10*3/uL Normal 4.4-11.0 [facility] Comment on above: Performed By: #### L 500.2500, L100.0100 #### [facility] [address] [place], [address] COVID 19 AG RAPID (FABIO Brandon)on 04-09-2025 [...] RAPID METHOD BinaxNow COVID19 Ag Card Normal [facility] Comment on above: Performed By: #### L 501.080 #### [facility] [address] [place], [place], [address] Chest PA and Lateralon 04-09 Chest PA and Lateral [facility] [address] [place], [place] [address] Chest PA and Lateral MR#: [id number] Acct: [id number] Name: KIMANI COHEN Rep #: [id number] : 2000 F 24 From: Serge Wheeler MD PCP: Dr. Yessenia Dixon MD Status: ADM IN Study: Chest PA and Lateral Date of Exam: 04/09/25 Exam# [id number] Ordering Dr: Benjy Gonzalez MD PROCEDURE: CHEST PA AND LATERAL 04/09/2025 REASON FOR EXAM: ASPIRATION PNEUMONIA TECHNIQUE: Procedure Code: RADCXR Modality: DX Procedure: CHEST PA AND LATERAL COMPARISON: None FINDINGS: Hardware: Right [employer] ASSISTANT shunt is seen along the right neck, right chest and upper abdomen. Heart: The heart size is normal. Mediastinum: The mediastinal contour is unremarkable. Lungs: The lungs are clear. Bones: The bones are unremarkable. RAD/Chest PA and Lateral IMPRESSION: No acute abnormality Reading Location: [id number] CC: Dr. Yessenia Dixon MD; Dr. Benjy Gonzalez MD Strapper Operator: Signed Normal [facility] RESPIRATORY PANEL MOLECULARo n 04-09-2025 RP PANEL ADENOVIRUS Not Detected INFLUENZA A Not Detected INFLUENZA A (SUBTYPE H1) Not Detected INFLUENZA A (SUBTYPE H3) Not Detected INFLUENZA B Not Detected HUMAN METAPHNEUMO Not Detected PARAINFLUENZA 1 Not Detected PARAINFLUENZA 2 Not Detected PARAINFLUENZA 3 Not Detected PARAINFLUENZA 4 Not Detected RHINOVIRUS Not Detected RSV A Not Detected RSV B Not Detected Normal [facility] Comment on above: Performed By: #### L 501.080 #### [facility] [address] [place], [address] Urinalysis, Completeon 04-09 AMORPHOUS 1+ PHOS Normal [facility] Comment on above: Order Comment: BLADD ER TAP Performed By: #### L 100.0100, L500.2500 #### [facility] [address] [place], [address] BACTERIA 3+ /hpf Normal None Seen [facility] Comment on above: Order Comment: BLADD ER TAP Performed By: #### L 100.0100, L500.2500 #### [facility] [address] [place], [address] WBC 0-5 SEEN Normal 0-5 [facility] Comment on above: Order Comment: BLADD ER TAP Performed By: #### L 100.0100, L500.2500 #### [facility] [address] [place], [address] EPI,SQUAMOUS 0 SEEN Normal 5-10 [facility] Comment on above: Order Comment: BLADD ER TAP Performed By: #### L 100.0100, L500.2500 #### [facility] [address] [place], [address] Mucus Ql (Urine sed) 0 SEEN Normal [facility] [place] Comment on above: Order Comment: BLADD ER TAP Performed By: #### L 100.0100, L500.2500 #### [facility] [address] [place], [address] RBC 0 SEEN Normal 0-5 [facility] Comment on above: Order Comment: BLADD ER TAP Performed By: #### L 100.0100, L500.2500 #### [facility] [address] [place], [address] Abdomen Single View (Portabl e)on 04-08-2025 Abdomen Single View (Portable) [facility] Imaging Services [address] [place] [address] Abdomen Single View (Portable) MR#: [id number] Acct: [id number] Name: KIMANI COHEN Rep #: [id number] : 2000 F 24 From: Ayush Burger MD PCP: Dr. Yessenia Dixon MD Status: ADM IN Study: Abdomen Single View (Portable) Date of Exam: 1 Exam# [id number] Ordering Dr: Benjy Gonzalez MD PROCEDURE: ABDOMEN [...] pattern. Mild-moderate colonic stool burden. Reading Location: [id number] CC: Dr. Yessenia Dixon MD; Dr. Benjy Gonzalez MD Strapper Operator: Signed Normal [facility] Basic Metabolic Profile (BMP )on 04-08-2025 BUN/CRE 32.9 RATIO High 10-20 [facility] Comment on above: Performed By: #### L 500.2500, L100.0100 #### [facility] [address] [place], [address] Calcium [Mass/Vol] 9.5 mg/dL Normal 7.6-11.0 [facility] Comment on above: Performed By: #### L 500.2500, L100.0100 #### [facility] [address] [place], [address] Chloride [Moles/Vol] 98 mmol/L Normal 98-108 [facility] Comment on above: Performed By: #### L 500.2500, L100.0100 #### [facility] [address] [place], [address] CO2 [Moles/Vol] 25.4 mmol/L Normal 21.0-32.0 [facility] Comment on above: Performed By: #### L 500.2500, L100.0100 #### [facility] [address] [place], [address] Creatinine [Mass/Vol] 0.44 mg/dL Low 0.70-1.20 [facility] Comment on above: Performed By: #### L 500.2500, L100.0100 #### [facility] [address] [place], [address] ECRCL 130.86 ml/min Normal 50-250 [facility] Comment on above: Performed By: #### L 500.2500, L100.0100 #### [facility] [address] [place], [address] GAP 14 Normal 5-15 [facility] Comment on above: Performed By: #### L 500.2500, L100.0100 #### [facility] [address] [place], [address] GFR/1.73 sq M.predicted among non-blacks MDRD (S/P/Bld) [Vol rate/Area] 141 mL/min/{1.73_m2} Normal >60 [facility] Comment on above: Result Comment: mL/m in/1.73m2 CKD-EPI Creatinine Equation (2020) Performed By: #### L 500.2500, L100.0100 #### [facility] [address] [place], [address] Glucose [Mass/Vol] 124 mg/dL High 70-99 [facility] Comment on above: Performed By: #### L 500.2500, L100.0100 #### [facility] [address] [place], [address] Potassium [Moles/Vol] 4.0 mmol/L Normal 3.3-5.1 [facility] Comment on above: Performed By: #### L 500.2500, L100.0100 #### [facility] [address] [place], [address] Sodium [Moles/Vol] 137 mmol/L Normal 133-145 [facility] Comment on above: Performed By: #### L 500.2500, L100.0100 #### [facility] [address] [place], [address] Urea nitrogen [Mass/Vol] 14 mg/dL Normal 4-19 [facility] Comment on above: Performed By: #### L 500.2500, L100.0100 #### [facility] [address] [place], [address] Bedside Glucoseon 04-08-2025 FINGERSTICK GLU 155 mg/dL High 74-106 [facility] Comment on above: Result Comment: BONNIE GEMENT OF PATIENT CARE PER NURSING PROTOCOL Performed By: #### L 500.2500, L100.0100 #### [facility] [address] [place], [address] FINGERSTICK GLU 148 mg/dL High 74-106 [facility] Comment on above: Result Comment: BONNIE GEMENT OF PATIENT CARE PER NURSING PROTOCOL Performed By: #### L 500.2500, L100.0100 #### [facility] [address] [place], [address] FINGERSTICK GLU 128 mg/dL High 74-106 [facility] Comment on above: Result Comment: BONNIE AL OF PATIENT CARE PER NURSING PROTOCOL Performed By: #### L 501.080 #### [facility] [address] [place], [address] Brain/Head without Contrasto n 04-08-2025 Brain/Head without Contrast [facility] Imaging Services [address] [place] [address] Brain/Head without Contrast MR#: [id number] Acct: [id number] Name: KIMANI COHEN Rep #: [id number] : 2000 F 24 From: Jhonatan shelton MD PCP: Dr. Yessenia Dixon MD Status: REG CLI Study: Brain/Head without Contrast Date of Exam: 03/24 12/16 Exam# [id number] Ordering Dr: Benjy Gonzalez MD PROCEDURE: BRAIN/HEAD [...] mass effect at this time. Reading Location: [place] [address] CC: Dr. Yessenia Dixon MD; Dr. Benjy Gonzalez MD Strapper Operator: Signed Normal [facility] CBC W/Diff, Automatedon 03-24 Absolute Lymph 1.24 X10 3/uL Normal 0.83-4.51 [facility] Comment on above: Performed By: #### L 500.2500, L100.0100 #### [facility] [address] [place], [address] Absolute Neut 9.2 X10 3/uL High 2.0-7.7 [facility] Comment on above: Performed By: #### L 500.2500, L100.0100 #### [facility] [address] [place], [address] Basophils/100 WBC (Bld) 0.5 % Normal 0-1 [facility] Comment on above: Performed By: #### L 500.2500, L100.0100 #### [facility] [address] [place], [address] Eosinophils/100 WBC (Bld) 0.3 % Normal 0-5 [facility] Comment on above: Performed By: #### L 500.2500, L100.0100 #### [facility] [address] [place], [address] Erythrocyte distribution width (RBC) [Ratio] 13.0 % Normal 11.6-14.6 [facility] Comment on above: Performed By: #### L 500.2500, L100.0100 #### [facility] [address] [place], [address] Hematocrit (Bld) [Volume fraction] 34.6 % Low 37-47 [facility] Comment on above: Performed By: #### L 500.2500, L100.0100 #### [facility] [address] [place], [address] Hemoglobin (Bld) [Mass/Vol] 11.7 g/dL Low 12.0-15.0 [facility] Comment on above: Performed By: #### L 500.2500, L100.0100 #### [facility] [address] [place], [address] IG% 0.800 Normal 0.0-0.9 [facility] Comment on above: Result Comment: IG% - Immature Granulocytes (promyelocytes, myelocytes and metamyelocytes) > 1% indicates that a LEFT SHIFT is Present. Performed By: #### L 500.2500, L100.0100 #### [facility] [address] [facility], [address] Lymphocytes/100 WBC (Bld) 10.8 % Low 19-41 [facility] Comment on above: Performed By: #### L 500.2500, L100.0100 #### [facility] [address] [facility] [place], [address] MCH (RBC) [Entitic mass] 29.8 pg Normal 27.0-32.0 [facility] Comment on above: Performed By: #### L 500.2500, L100.0100 #### [facility] [address] [place], [address] MCHC (RBC) [Mass/Vol] 33.8 g/dL Normal 32-36 [facility] Comment on above: Performed By: #### L 500.2500, L100.0100 #### [facility] [address] [place], [address] MCV (RBC) [Entitic vol] 88.0 fL Normal 81-99 [facility] Comment on above: Performed By: #### L 500.2500, L100.0100 #### [facility] [address] [place], [address] Monocytes/100 WBC (Bld) 6.8 % Normal 0-10 [facility] Comment on above: Performed By: #### L 500.2500, L100.0100 #### [facility] [address] [place], [address] Neutrophils/100 WBC (Bld) 80.8 % High 47-70 [facility] Comment on above: Performed By: #### L 500.2500, L100.0100 #### [facility] [address] [place], [address] Nucleated RBC (Bld) [#/Vol] 0 10*3/uL Normal 0-5 [facility] Comment on above: Performed By: #### L 500.2500, L100.0100 #### [facility] [address] [place], [address] Platelet mean volume (Bld) [Entitic vol] 11.3 fL Normal 6.2-12.0 [facility] Comment on above: Performed By: #### L 500.2500, L100.0100 #### [facility] [address] [place], [address] Platelets (Bld) [#/Vol] 267 10*3/uL Normal 150-450 [facility] Comment on above: Performed By: #### L 500.2500, L100.0100 #### [facility] [address] [place], [address] RBC (Bld) [#/Vol] 3.93 10*6/uL Low 4.2-5.4 [facility] Comment on above: Performed By: #### L 500.2500, L100.0100 #### [facility] [address] [place], [address] RDW SD 42.3 fl Normal 35.1-43.9 [facility] Comment on above: Performed By: #### L 500.2500, L100.0100 #### [facility] [address] [place], [address] WBC (Bld) [#/Vol] 11.4 10*3/uL High 4.4-11.0 [facility] Comment on above: Performed By: #### L 500.2500, L100.0100 #### [facility] [address] [place], [address] Bedside Glucoseon 04-07-2025 FINGERSTICK GLU 139 mg/dL High 74-106 [facility] Comment on above: Result Comment: BONNIE GEMENT OF PATIENT CARE PER NURSING PROTOCOL Performed By: #### L 501.080 #### [facility] [address] [place], [address] FINGERSTICK GLU 104 mg/dL Normal 74-106 [facility] Comment on above: Result Comment: BONNIE GEMENT OF PATIENT CARE PER NURSING PROTOCOL Performed By: #### L 500.2500, L100.0100 #### [facility] [address] [place], [address] CBC + DIFFon 04-02-2025 Baso # 0.03 x10EE3/UL Normal 0.00 - 0.10 [facility] Comment on above: Performed By: #### 2 62794 #### [facility],[address] [place] [address] Basophils/100 WBC (Bld) 0.5 % Normal 0.0 - 2.0 [facility] Comment on above: Performed By: #### 2 55444 #### [facility],[address] [place] [address] CBC + DIFF Normal [facility] Comment on above: Result Comment: CBC- COMPLETE BLOOD COUNT Performed By: #### 2 58596 #### [facility],[address] [place] [address] EO # 0.52 x10EE3/UL High 0.00 - 0.50 [facility] Comment on above: Performed By: #### 2 51723 #### [facility],[address] [place] [address] Eosinophils/100 WBC (Bld) 10.0 % High 0.0 - 7.0 [facility] Comment on above: Performed By: #### 2 08160 #### [place] [address] Erythrocyte distribution width (RBC) [Ratio] 13.9 % Normal 12.0 - 15.6 [facility] Comment on above: Performed By: #### 2 08798 #### [place] [address] Hematocrit (Bld) [Volume fraction] 33.3 % Low 34.0 - 46.0 [facility] Comment on above: Performed By: #### 2 94796 #### [place] [address] Hemoglobin (Bld) [Mass/Vol] 11.6 g/dL Low 12.0 - 16.0 [facility] Comment on above: Result Comment: VERI FIED BY REPEAT ANALYSISI Performed By: #### 2 95747 #### [place] [id number] Lymph # 1.24 x10EE3/UL Normal 0.80 - 2.80 [facility] Comment on above: Performed By: #### 2 24282 #### [place] [id number] Lymphocytes/100 WBC (Bld) 23.8 % Normal 20.0 - 45.0 [facility] Comment on above: Performed By: #### 2 01452 #### [place] [address] MANUAL DIFF N/A Normal [facility] Comment on above: Performed By: #### 2 17408 #### [facility],[address] [place] [address] MCH (RBC) [Entitic mass] 30 pg Normal 27 - 33 [facility] Comment on above: Performed By: #### 2 82013 #### [facility],[address] [place] [address] MCHC 35 X10 3 Normal 32 - 36 [facility] Comment on above: Performed By: #### 2 18207 #### [facility],[address] [place], [place] [id number] MCV (RBC) [Entitic vol] 87 fL Normal 80 - 99 [facility] Comment on above: Performed By: #### 2 01826 #### [facility],[address] [place] [address] Major # 0.43 x10EE3/UL Normal 0.20 - 1.00 [facility] Comment on above: Performed By: #### 2 96134 #### [facility],[address] [place] [address] MONOS % 8.3 % Normal 0.0 - 10.0 [facility] Comment on above: Performed By: #### 2 64928 #### [facility],[address] [place], [place] [id number] Morphology Ibrahima (Bld) [Interp] N/A Normal [facility] Comment on above: Performed By: #### 2 60375 #### [facility],[address] [place] [address] Neut # 2.99 x10EE3/UL Normal 1.50 - 7.10 [facility] Comment on above: Performed By: #### 2 57707 #### [facility],[address] [place], [place] [id number] Neutrophils/100 WBC (Bld) 57.4 % Normal 46.0 - 76.0 [facility] Comment on above: Performed By: #### 2 85996 #### [facility],[address] [place], [place] [id number] PLATELET 278 x10EE3/UL Normal 150 - 450 [facility] Comment on above: Performed By: #### 2 40770 #### [facility],[address] [place] [address] Platelet mean volume (Bld) [Entitic vol] 9.4 fL Normal 6.6 - 10.5 [facility] Comment on above: Result Comment: AUTO MATED DIFFERENTIAL Performed By: #### 2 29778 #### [facility],[address] [place] [address] RBC 3.82 x 10EE6/UL Low 4.10 - 5.30 [facility] Comment on above: Performed By: #### 2 59437 #### [facility],[address] [place] [address] WBC 5.2 x 10EE3/UL Normal 4.5 - 10.8 [facility] Comment on above: Performed By: #### 2 19418 #### [facility],[address] [place] [address] CMP with eGFRon 04-02-2025 AGE 24 years Normal [facility] Comment on above: Performed By: #### 2 98936 ####[facility],[address] [place] [address] Albumin [Mass/Vol] 3.1 g/dL Low 3.4 - 5.0 [facility] Comment on above: Performed By: #### 2 68307 ####[facility],[address] [place], [place] [id number] Albumin/Globulin [Mass ratio] 0.9 {ratio} Normal 0.9 - 1.6 [facility] Comment on above: Performed By: #### 2 80475 ####[facility],[address] [place] [address] ALK PHOS 82 U/L Normal 46 - 116 [facility] Comment on above: Performed By: #### 2 90887 ####[facility],[address] [place] [address] ALT [Catalytic activity/Vol] 67 U/L High 16 - 63 [facility] Comment on above: Performed By: #### 2 80585 ####[facility],[address] [place] [address] Anion gap [Moles/Vol] 11 mmol/L Normal 10 - 20 [facility] Comment on above: Performed By: #### 2 32102 ####[facility],[address] [place] [address] AST [Catalytic activity/Vol] 32 U/L Normal 13 - 39 [facility] Comment on above: Performed By: #### 2 30379 ####[facility],[address] [place] [address] B/C RATIO 27 ratio Normal 0 - 30 [facility] Comment on above: Performed By: #### 2 15471 ####[place] [address] Bilirubin [Mass/Vol] 0.2 mg/dL Normal 0.2 - 1.0 [facility] Comment on above: Performed By: #### 2 24024 ####[facility],[address] [place] [address] Calcium [Mass/Vol] 9.3 mg/dL Normal 8.5 - 10.1 [facility] Comment on above: Performed By: #### 2 30376 ####[facility],[address] [place] [address] Chloride [Moles/Vol] 101 mmol/L Normal 98 - 107 [facility] Comment on above: Performed By: #### 2 68726 ####[facility],[address] [place] [address] CMP with eGFR Normal [facility] Comment on above: Result Comment: COMP REHENSIVE METABOLIC PANEL Performed By: #### 2 04222 ####[place] [address] CO2 [Moles/Vol] 33.0 mmol/L High 21.0 - 32.0 [facility] Comment on above: Performed By: #### 2 38286 ####[place] [address] Creatinine [Mass/Vol] 0.41 mg/dL Low 0.55 - 1.02 [facility] Comment on above: Performed By: #### 2 47840 ####[facility],[address] [place] [address] GFR/1.73 sq M.predicted among non-blacks MDRD (S/P/Bld) [Vol rate/Area] mL/min/{1.73_m2} Normal 60 - 999 [facility] Comment on above: Performed By: #### 2 23612 ####[place] [address] Result Comment: ACCO RDING TO THE NATIONAL KIDNEY DISEASE EDUCATION PROGRAM(NKDE), A NORMAL eGFR IS A VALUE GREATER THAN OR EQUAL TO 60 ML/MIN/1.73 SQ METERS. CHRONIC KIDNEY DISEASE: <60mL/MIN/1.73 SQ METERS KIDNEY FAILURE: <15mL/MIN/1.73 SQ METERS THIS TEST SHOULD ONLY BE USED FOR PATIENTS 18 YEARS OF AGE AND OLDER. Globulin (S) [Mass/Vol] 3.6 g/dL Normal 1.5 - 3.8 [facility] Comment on above: Performed By: #### 2 50599 ####[place] [address] Glucose [Mass/Vol] 123 mg/dL High 74 - 106 [facility] Comment on above: Performed By: #### 2 46127 ####[place] [id number] Potassium [Moles/Vol] 3.9 mmol/L Normal 3.5 - 5.1 [facility] Comment on above: Performed By: #### 2 08414 ####[facility],[address] [place] [address] Protein [Mass/Vol] 6.7 g/dL Normal 6.4 - 8.2 [facility] Comment on above: Performed By: #### 2 70490 ####[facility],[address] [place] [address] Sodium [Moles/Vol] 141 mmol/L Normal 136 - 145 [facility] Comment on above: Performed By: #### 2 95524 ####[facility],[address] [place], [place] [phone] Urea nitrogen [Mass/Vol] 11 mg/dL Normal 7 - 18 [facility] Comment on above: Performed By: #### 2 49059 ####[facility],[address] [place] [address] HEMOGLOBIN A1C (POM)on 04-02 Glucose [Mass/Vol] 91.1 mg/dL High 0.0 - 0.0 [facility] Comment on above: Result Comment: BLDo HEMOGLOBIN A1C REFERENCE RANGESBLDo Suggested Diagnosis HbA1c(%) HbA1C (mmol/mol Diabetic >/=6.5 >/=48 Prediabetes 5.7 - 6.4 39 - 47 Normal <5.7 <39 Performed By: #### 2 04284 #### [facility],[address] [place] [address] HbA1c (Bld) [Mass fraction] 4.8 % Normal 0.0 - 6.5 [facility] Comment on above: Performed By: #### 2 62664 #### [facility],[address] [place] [address] LIPID PROFILEon 04-02-2025 Cholesterol [Mass/Vol] 169 mg/dL Normal 0 - 240 [facility] Comment on above: Performed By: #### 2 30828 #### [facility],[address] [place] [address] Cholesterol in HDL [Mass/Vol] 48 mg/dL Normal 40 - 60 [facility] Comment on above: Performed By: #### 2 96195 #### [facility],[address] [place] [address] Cholesterol in LDL [Mass/Vol] 105 mg/dL Normal 0 - 129 [facility] Comment on above: Performed By: #### 2 58645 #### [facility],[address] [place] [address] Cholesterol.total/Ch olesterol in HDL [Mass ratio] 3.5 {ratio} Normal 0.0 - 5.0 [facility] Comment on above: Performed By: #### 2 19592 #### [facility],[address] [place] [address] Lipid 1996 panel Normal [facility] Comment on above: Result Comment: LIPI D PROFILE Performed By: #### 2 35711 #### [facility],[address] [place] [address] Triglyceride [Mass/Vol] 81 mg/dL Normal 0 - 150 [facility] Comment on above: Performed By: #### 2 53225 #### [facility],[address] [place] [address] CBC W Auto Differential pane l (Bld)on 03-31-2025 Basophils (Bld) [#/Vol] 0.06 x10*3/uL Normal 0.00-0.10 [facility] Comment on above: Performed By: #### 5 7021-8 ####CALE Roth ([id number])[facility] ([facility])[id number] [place] [address] Basophils/100 WBC (Bld) 0.9 % Normal 0.0-2.0 [facility] Comment on above: Performed By: #### 5 7021-8 ####CALE Roth ([id number])[facility] ([facility])[address] [place] [address] Eosinophils (Bld) [#/Vol] 0.42 x10*3/uL Normal 0.00-0.70 [facility] Comment on above: Performed By: #### 5 7021-8 ####CALE Roth ([id number])[facility] ([facility])[id number] [place] [address] Eosinophils/100 WBC (Bld) 6.6 % Normal 0.0-6.0 [facility] Comment on above: Performed By: #### 5 7021-8 ####CALE Roth ([id number])[facility] ([facility])[id number] [place] [address] Erythrocyte distribution width (RBC) [Ratio] 14.1 % Normal 11.5-14.5 [facility] Comment on above: Performed By: #### 5 7021-8 ####CALE Roth ([id number])[facility] ([facility])[id number] [place] [address]35 Hematocrit (Bld) [Volume fraction] 35.6 % Low 36.0-46.0 [facility] Comment on above: Performed By: #### 5 7021-8 ####CLAE Roth ([id number])[facility] ([facility])[id number] [place] [address] Hemoglobin (Bld) [Mass/Vol] 11.4 g/dL Low 12.0-16.0 [facility] Comment on above: Performed By: #### 5 7021-8 ####CALE Roth ([id number])[facility] ([facility])[id number] [place] [address]67 Immature granulocytes (Bld) [#/Vol] 0.13 x10*3/uL Normal 0.00-0.70 [facility] Comment on above: Performed By: #### 5 7021-8 ####CALE Roth ([id number])[facility] ([facility])[address] [place] [address] Immature granulocytes/100 WBC (Bld) 2.0 % High 0.0-0.9 [facility] Comment on above: Result Comment: Aleisha ture Granulocyte Count (IG) includes promyelocytes, myelocytes and metamyelocytes but does not include bands. Percent differential counts (%) should be interpreted in the context of the absolute cell counts (cells/UL). Performed By: #### 5 7021-8 ####CALE Roth ([id number])[facility] ([facility])[address] [place] [address] Lymphocytes (Bld) [#/Vol] 1.56 x10*3/uL Normal 1.20-4.80 [facility] Comment on above: Performed By: #### 5 7021-8 ####CALE Roth ([id number])[facility] ([facility])[address] [place] [address] Lymphocytes/100 WBC (Bld) 24.5 % Normal 13.0-44.0 [facility] Comment on above: Performed By: #### 5 7021-8 ####CALE Roth ([id number])[facility] ([facility])[address] [place] [address] MCH (RBC) [Entitic mass] 29.7 pg Normal 26.0-34.0 [facility] Comment on above: Performed By: #### 5 7021-8 ####CALE Roth ([id number])[facility] ([facility])[address] [place] [address] MCHC (RBC) [Mass/Vol] 32.0 g/dL Normal 32.0-36.0 [facility] Comment on above: Performed By: #### 5 7021-8 ####CALE Roth ([id number])[facility] ([facility])[address] [place] [address] MCV (RBC) [Entitic vol] 93 fL Normal 80-100 [facility] Comment on above: Performed By: #### 5 7021-8 ####CALE Roth ([id number])[facility] ([facility])[address] [place] [address] Monocytes (Bld) [#/Vol] 0.59 x10*3/uL Normal 0.10-1.00 [facility] Comment on above: Performed By: #### 5 7021-8 ####CALE Roth ([id number])[facility] ([facility])[address] [place] [address] Monocytes/100 WBC (Bld) 9.3 % Normal 2.0-10.0 [facility] Comment on above: Performed By: #### 5 7021-8 ####CALE Roth ([id number])[facility] ([facility])[address]117 [place] [address] Neutrophils (Bld) [#/Vol] 3.60 x10*3/uL Normal 1.20-7.70 [facility] Comment on above: Result Comment: Perc ent differential counts (%) should be interpreted in the context of the absolute cell counts (cells/uL). Performed By: #### 5 7021-8 ####CALE Roth ([id number])[facility] ([facility])[address]70 [place] [address] Neutrophils/100 WBC (Bld) 56.7 % Normal 40.0-80.0 [facility] Comment on above: Performed By: #### 5 7021-8 ####CALE Roth ([id number])[facility] ([facility])[address]277 [place] [address] Nucleated RBC/100 WBC (Bld) [Ratio] 0.0 /100 WBCs Normal 0.0-0.0 [facility] Comment on above: Performed By: #### 5 7021-8 ####CALE Roth ([id number])[facility] ([facility])[address]61 [place] [address] Platelets (Bld) [#/Vol] 241 x10*3/uL Normal 150-450 [facility] Comment on above: Performed By: #### 5 7021-8 ####CALE Roth ([id number])[facility] ([facility])[address] [place] [address] RBC (Bld) [#/Vol] 3.84 x10*6/uL Low 4.00-5.20 [facility] Comment on above: Performed By: #### 5 7021-8 ####CALE Roth ([id number])[facility] ([facility])[address]37 [place] [address] WBC (Bld) [#/Vol] 6.4 x10*3/uL Normal 4.4-11.3 [facility] Comment on above: Performed By: #### 5 7021-8 ####CALE Roth ([id number])[facility] ([facility])[address] [place] [address] Calcium.ionizedon 03-31-2025 Calcium.ionized (Bld) [Moles/Vol] 1.12 mmol/L Normal 1.1-1.33 [facility] Comment on above: Result Comment: The performance characteristics of ionized calcium testedin heparinized plasma or serum have been validated by the[facility] site where testing is performed.Testing on heparinized plasma or serum is not approved by[facility] FDA; however, such approval is not necessary. Performed By: #### 1 994-3 ####CALE Roth ([id number])[facility] ([facility])[id number] [place] [address] Glucose Test strip manual (B ld) [Mass/Vol]on 03-31-2025 Glucose [Mass/Vol] 139 mg/dL High 7499 [facility] Comment on above: Performed By: #### 2 341-6 ####CALE Roth ([id number])[facility] ([facility])[address] [place] [address] Glucose [Mass/Vol] 148 mg/dL [facility] 7499 [facility] Comment on above: Performed By: #### 2 341-6 ####CALE Roth ([id number])[facility] ([facility])[address] [place] [address] Magnesiumon 03-31-2025 Magnesium [Mass/Vol] 2.14 mg/dL Normal 1.60-2.40 [facility] Comment on above: Performed By: #### 1 9123-9 ####CALE Roth ([id number])[facility] ([facility])[address]30 [place] [address] Renal function 2000 panelon 03-31-2025 Albumin BCP dye [Mass/Vol] 3.7 g/dL Normal 3.4-5.0 [facility] Comment on above: Performed By: #### 2 4362-6 ####CALE Roth ([id number])[facility] ([facility])[address]092 [place] [address] Anion gap [Moles/Vol] 14 mmol/L Normal 10-20 [facility] Comment on above: Performed By: #### 2 4362-6 ####CALE Roth ([id number])[facility] ([facility])[address]41 [place] [address] Calcium [Mass/Vol] 9.3 mg/dL Normal 8.6-10.6 [facility] Comment on above: Performed By: #### 2 4362-6 ####CALE Roth ([id number])[facility] ([facility])[address] [place] [address] Chloride [Moles/Vol] 100 mmol/L Normal 98-107 [facility] Comment on above: Performed By: #### 2 4362-6 ####CALE Roth ([id number])[facility] ([facility])[address]35 [place] [address] CO2 [Moles/Vol] 28 mmol/L Normal 21-32 [facility] Comment on above: Performed By: #### 2 4362-6 ####CALE Roth ([id number])[facility] ([facility])[address]75 [place] [address] Creatinine [Mass/Vol] 0.32 mg/dL Low 0.50-1.05 [facility] Comment on above: Performed By: #### 2 4362-6 ####CALE Roth ([id number])[facility] ([facility])[address]37 [place] [address] Glomerular filtration rate >90 Normal >60 [facility] Comment on above: Result Comment: Calc ulations of estimated GFR are performed using the 2020 CKD-EPI Study Refit equation without the race variable for the IDMS-Traceable creatinine methods.https://jasn.asnjournals.org/content//ASN .7190224049 Performed By: #### 2 4362-6 ####CALE Roth ([id number])[facility] ([facility])[address]38 [place] [address] Glucose [Mass/Vol] 139 mg/dL High 74-99 [facility] Comment on above: Performed By: #### 2 4362-6 ####CALE Roth ([id number])[facility] ([facility])[address]47 [place] [address] Phosphate [Mass/Vol] 3.6 mg/dL Normal 2.5-4.9 [facility] Comment on above: Performed By: #### 2 4362-6 ####CALE Roth ([id number])[facility] ([facility])[address]322 [place] [address] Potassium [Moles/Vol] 3.6 mmol/L Normal 3.5-5.3 [facility] Comment on above: Performed By: #### 2 4362-6 ####CALE CAI L ([id number])[facility] ([facility])[address]356 [place] [address] Sodium [Moles/Vol] 138 mmol/L Normal 136-145 [facility] Comment on above: Performed By: #### 2 4362-6 ####CALE Roth ([id number])[facility] ([facility])[address]25 [place] [address] Urea nitrogen [Mass/Vol] 10 mg/dL Normal 6-23 [facility] Comment on above: Performed By: #### 2 4362-6 ####CALE Roth ([id number])[facility] ([facility])[address]404 [place] [address] CBC W Auto Differential pane l (Bld)on 03-30-2025 Basophils (Bld) [#/Vol] 0.06 x10*3/uL Normal 0.00-0.10 [facility] Comment on above: Performed By: #### 5 7021-8 ####CALE Roth ([id number])[facility] ([facility])[address] [place] [address] Basophils/100 WBC (Bld) 0.7 % Normal 0.0-2.0 [facility] Comment on above: Performed By: #### 5 7021-8 ####CALE Roth ([id number])[facility] ([facility])[address] [place] [address] Eosinophils (Bld) [#/Vol] 0.33 x10*3/uL Normal 0.00-0.70 [facility] Comment on above: Performed By: #### 5 7021-8 ####CALE Roth ([id number])[facility] ([facility])[address]249 [place] [address] Eosinophils/100 WBC (Bld) 3.7 % Normal 0.0-6.0 [facility] Comment on above: Performed By: #### 5 7021-8 ####CALE Roth ([id number])[facility] ([facility])[address] [place] [address] Erythrocyte distribution width (RBC) [Ratio] 14.1 % Normal 11.5-14.5 [facility] Comment on above: Performed By: #### 5 7021-8 ####CALE Roth ([id number])[facility] ([facility])[address]48 [place] [address] Hematocrit (Bld) [Volume fraction] 37.3 % Normal 36.0-46.0 [facility] Comment on above: Performed By: #### 5 7021-8 ####CALE Roth ([id number])[facility] ([facility])[address]641 [place] [address] Hemoglobin (Bld) [Mass/Vol] 12.2 g/dL Normal 12.0-16.0 [facility] Comment on above: Performed By: #### 5 7021-8 ####CALE Roth ([id number])[facility] ([facility])[address] [place] [address] Immature granulocytes (Bld) [#/Vol] 0.16 x10*3/uL Normal 0.00-0.70 [facility] Comment on above: Performed By: #### 5 7021-8 ####CALE Roth ([id number])[facility] ([facility])[address] [place] [address] Immature granulocytes/100 WBC (Bld) 1.8 % High 0.0-0.9 [facility] Comment on above: Result Comment: Aleisha ture Granulocyte Count (IG) includes promyelocytes, myelocytes and metamyelocytes but does not include bands. Percent differential counts (%) should be interpreted in the context of the absolute cell counts (cells/UL). Performed By: #### 5 7021-8 ####CALE Roth ([id number])[facility] ([facility])[address]32 [place] [address] Lymphocytes (Bld) [#/Vol] 1.24 x10*3/uL Normal 1.20-4.80 [facility] Comment on above: Performed By: #### 5 7021-8 ####CALE CAI L ([id number])[facility] ([facility])[address]123 [place] [address] Lymphocytes/100 WBC (Bld) 14.1 % Normal 13.0-44.0 [facility] Comment on above: Performed By: #### 5 7021-8 ####CALE Roth ([id number])[facility] ([facility])[address]19 [place] [address] MCH (RBC) [Entitic mass] 30.3 pg Normal 26.0-34.0 [facility] Comment on above: Performed By: #### 5 7021-8 ####CALE Roth ([id number])[facility] ([facility])[address] [place] [address] MCHC (RBC) [Mass/Vol] 32.7 g/dL Normal 32.0-36.0 [facility] Comment on above: Performed By: #### 5 7021-8 ####CALE Roth ([id number])[facility] ([facility])[address] [place] [address] MCV (RBC) [Entitic vol] 93 fL Normal 80-100 [facility] Comment on above: Performed By: #### 5 7021-8 ####CALE Roth ([id number])[facility] ([facility])[address] [place] [address] Monocytes (Bld) [#/Vol] 0.70 x10*3/uL Normal 0.10-1.00 [facility] Comment on above: Performed By: #### 5 7021-8 ####CALE Roth ([id number])[facility] ([facility])[address]38 [place] [address] Monocytes/100 WBC (Bld) 7.9 % Normal 2.0-10.0 [facility] Comment on above: Performed By: #### 5 7021-8 ####CALE Roth ([id number])[facility] ([facility])[id number] [place] [address] Neutrophils (Bld) [#/Vol] 6.32 x10*3/uL Normal 1.20-7.70 [facility] Comment on above: Result Comment: Perc ent differential counts (%) should be interpreted in the context of the absolute cell counts (cells/uL). Performed By: #### 5 7021-8 ####CALE Roth ([id number])[facility] ([facility])[address]677 [place] [address] Neutrophils/100 WBC (Bld) 71.8 % Normal 40.0-80.0 [facility] Comment on above: Performed By: #### 5 7021-8 ####CALE Roth ([id number])[facility] ([facility])[address] [place] [address] 945[address] Nucleated RBC/100 WBC (Bld) [Ratio] 0.0 /100 WBCs Normal 0.0-0.0 [facility] Comment on above: Performed By: #### 5 7021-8 ####CALE Roth ([id number])[facility] ([facility])[id number] [place] [address] Platelets (Bld) [#/Vol] 236 x10*3/uL Normal 150-450 [facility] Comment on above: Performed By: #### 5 7021-8 ####CALE Roth ([id number])[facility] ([facility])[address] [place] [address] 21369 RBC (Bld) [#/Vol] 4.03 x10*6/uL Normal 4.00-5.20 [facility] Comment on above: Performed By: #### 5 7021-8 ####CALE Roth ([id number])[facility] ([facility])[id number] [place] [address] WBC (Bld) [#/Vol] 8.8 x10*3/uL Normal 4.4-11.3 [facility] Comment on above: Performed By: #### 5 7021-8 ####CALE Roth ([id number])[facility] ([facility])[address]0006 [place] [address] Glucose Test strip manual (B ld) [Mass/Vol]on 03-30-2025 Glucose [Mass/Vol] 130 mg/dL High 74-99 [facility] Comment on above: Performed By: #### 2 341-6 ####CALE Roth ([id number])[facility] ([facility])[address]36 [place] [address] Glucose [Mass/Vol] 127 mg/dL High -[address] [place] [address] Comment on above: Performed By: #### 2 341-6 ####CALE Roth ([id number])[facility] ([facility])[address] [place] [address]263 Glucose [Mass/Vol] 133 mg/dL High [address] [place] [address] Comment on above: Performed By: #### 2 341-6 ####CALE Roth ([id number])[facility] ([facility])[address] [place] [address]449 Glucose [Mass/Vol] 120 mg/dL High [address] [place] [address] Comment on above: Performed By: #### 2 341-6 ####CALE Roth ([id number])[facility] ([facility])[id number] [place] [address] Glucose [Mass/Vol] 119 mg/dL High [address] [place] [address] Comment on above: Performed By: #### 2 341-6 ####CALE Roth ([id number])[facility] ([facility])[address] [place] [address] Magnesiumon 03-30-2025 Magnesium [Mass/Vol] 2.12 mg/dL Normal 1.60-2.40 [facility] Comment on above: Performed By: #### 1 9123-9 ####CALE Roth ([id number])[facility] ([facility])[address] [place] [address]690 Renal function 2000 panelon 03-30-2025 Albumin BCP dye [Mass/Vol] 3.8 g/dL Normal 3.4-5.0 [facility] Comment on above: Performed By: #### 2 4362-6 ####CALE Roth ([id number])[facility] ([facility])[address] [facility] [place] [address] Anion gap [Moles/Vol] 13 mmol/L Normal 10-20 [facility] Comment on above: Performed By: #### 2 4362-6 ####CALE RUTLEDGEER L (90725)[facility] ([facility])[address]80 [place] [address] Calcium [Mass/Vol] 9.4 mg/dL Normal 8.6-10.6 [facility] Comment on above: Performed By: #### 2 4362-6 ####CALE PARKERTZER L ([id number])[facility] ([facility])[address]297 [place] [address] Chloride [Moles/Vol] 99 mmol/L Normal 98-107 [facility] Comment on above: Performed By: #### 2 4362-6 ####CALE TOSCANOMOTZER L ([id number])[facility] ([facility])[address]41 [place] [address] CO2 [Moles/Vol] 29 mmol/L Normal 21-32 [facility] Comment on above: Performed By: #### 2 4362-6 ####CALE CAI L ([id number])[facility] ([facility])[address]394 [place] [address] Creatinine [Mass/Vol] 0.29 mg/dL Low 0.50-1.05 [facility] Comment on above: Performed By: #### 2 4362-6 ####CALE PARKERTZER L ([id number])[facility] ([facility])[address]37 [place] [address] Glomerular filtration rate >90 Normal >60 [facility] Comment on above: Result Comment: Calc ulations of estimated GFR are performed using the 2020 CKD-EPI Study Refit equation without the race variable for the IDMS-Traceable creatinine methods.https://jasn.asnjournals.org/content//ASN .0622415248 Performed By: #### 2 4362-6 ####CALE Roth ([id number])[facility] ([facility])[address]63 [place] [address] Glucose [Mass/Vol] 130 mg/dL High 74-99 [facility] Comment on above: Performed By: #### 2 4362-6 ####CALE Roth (77253)[facility] ([facility])46182 [place] [address] Phosphate [Mass/Vol] 3.3 mg/dL Normal 2.5-4.9 [facility] Comment on above: Performed By: #### 2 4362-6 ####CAEL Roth ([id number])[facility] ([facility])[address]11 [place] [address] Potassium [Moles/Vol] 3.3 mmol/L Low 3.5-5.3 [facility] Comment on above: Performed By: #### 2 4362-6 ####CALE Roth ([id number])[facility] ([facility])[address]194 [place] [address] Sodium [Moles/Vol] 138 mmol/L Normal 136-145 [facility] Comment on above: Performed By: #### 2 4362-6 ####CALE Roth ([id number])[facility] ([facility])[address]30 [place] [address] Urea nitrogen [Mass/Vol] 11 mg/dL Normal 6-23 [facility] Comment on above: Performed By: #### 2 4362-6 ####CALE Roth ([id number])[facility] ([facility])[address]343 [place] [address] Bacteriaon 03-29-2025 Bacteria identified Cx Nom (U) Normal [facility] Comment on above: Performed By: #### 6 30-4 ####CALE Roth ([id number])[facility] ([facility])[address]78 [place] [address] CBC W Auto Differential pane l (Bld)on 03-29-2025 Basophils (Bld) [#/Vol] 0.05 x10*3/uL Normal 0.00-0.10 [facility] Comment on above: Performed By: #### 5 7021-8 ####CALE Roth ([id number])[facility] ([facility])[address] [place] [address] Basophils/100 WBC (Bld) 0.5 % Normal 0.0-2.0 [facility] Comment on above: Performed By: #### 5 7021-8 ####CALE Roth ([id number])[facility] ([facility])[address]23 [place] [address] Eosinophils (Bld) [#/Vol] 0.14 x10*3/uL Normal 0.00-0.70 [facility] Comment on above: Performed By: #### 5 7021-8 ####CALE Roth ([id number])[facility] ([facility])[address]276 [place] [address] Eosinophils/100 WBC (Bld) 1.3 % Normal 0.0-6.0 [facility] Comment on above: Performed By: #### 5 7021-8 ####CALE Roth ([id number])[facility] ([facility])[address]006 [place] [address] Erythrocyte distribution width (RBC) [Ratio] 14.2 % Normal 11.5-14.5 [facility] Comment on above: Performed By: #### 5 7021-8 ####CALE Roth ([id number])[facility] ([facility])[address]47 [place] [address] Hematocrit (Bld) [Volume fraction] 32.9 % Low 36.0-46.0 [facility] Comment on above: Performed By: #### 5 7021-8 ####CALE Roth ([id number])[facility] ([facility])[address]645 [place] [address] Hemoglobin (Bld) [Mass/Vol] 11.3 g/dL Low 12.0-16.0 [facility] Comment on above: Performed By: #### 5 7021-8 ####CALE Roth ([id number])[facility] ([facility])[address]24 [place] [address] Immature granulocytes (Bld) [#/Vol] 0.13 x10*3/uL Normal 0.00-0.70 [facility] Comment on above: Performed By: #### 5 7021-8 ####CALE Roth ([id number])[facility] ([facility])[address] [place] [address] Immature granulocytes/100 WBC (Bld) 1.2 % High 0.0-0.9 [facility] Comment on above: Result Comment: Aleisha ture Granulocyte Count (IG) includes promyelocytes, myelocytes and metamyelocytes but does not include bands. Percent differential counts (%) should be interpreted in the context of the absolute cell counts (cells/UL). Performed By: #### 5 7021-8 ####CALE Roth ([id number])[facility] ([facility])[address] [place] [address] Lymphocytes (Bld) [#/Vol] 1.21 x10*3/uL Normal 1.20-4.80 [facility] Comment on above: Performed By: #### 5 7021-8 ####CALE Roth ([id number])[facility] ([facility])[address] [place] [address] Lymphocytes/100 WBC (Bld) 10.9 % Normal 13.0-44.0 [facility] Comment on above: Performed By: #### 5 7021-8 ####CALE Roth ([id number])[facility] ([facility])[address] [place] [address] MCH (RBC) [Entitic mass] 30.5 pg Normal 26.0-34.0 [facility] Comment on above: Performed By: #### 5 7021-8 ####CALE Roth ([id number])[facility] ([facility])[address] [place] [address] MCHC (RBC) [Mass/Vol] 34.3 g/dL Normal 32.0-36.0 [facility] Comment on above: Performed By: #### 5 7021-8 ####CALE Roth ([id number])[facility] ([facility])[address] [place] [address] MCV (RBC) [Entitic vol] 89 fL Normal 80-100 [facility] Comment on above: Performed By: #### 5 7021-8 ####CALE Roth ([id number])[facility] ([facility])[address] [place] [address] Monocytes (Bld) [#/Vol] 0.75 x10*3/uL Normal 0.10-1.00 [facility] Comment on above: Performed By: #### 5 7021-8 ####CALE Roth ([id number])[facility] ([facility])[address] [place] [address] Monocytes/100 WBC (Bld) 6.8 % Normal 2.0-10.0 [facility] Comment on above: Performed By: #### 5 7021-8 ####CALE Roth ([id number])[facility] ([facility])[address] [place] [address] Neutrophils (Bld) [#/Vol] 8.79 x10*3/uL High 1.20-7.70 [facility] Comment on above: Result Comment: Perc ent differential counts (%) should be interpreted in the context of the absolute cell counts (cells/uL). Performed By: #### 5 7021-8 ####CALE Roth ([id number])[facility] ([facility])[address] [place] [address] Neutrophils/100 WBC (Bld) 79.3 % Normal 40.0-80.0 [facility] Comment on above: Performed By: #### 5 7021-8 ####CALE Roth ([id number])[facility] ([facility])[address] [place] [address] Nucleated RBC/100 WBC (Bld) [Ratio] 0.0 /100 WBCs Normal 0.0-0.0 [facility] Comment on above: Performed By: #### 5 7021-8 ####CALE Roth ([id number])[facility] ([facility])[address] [place] [address] Platelets (Bld) [#/Vol] 236 x10*3/uL Normal 150-450 [facility] Comment on above: Performed By: #### 5 7021-8 ####CALE Roth ([id number])[facility] ([facility])[address] [place] [address] RBC (Bld) [#/Vol] 3.71 x10*6/uL Low 4.00-5.20 [facility] Comment on above: Performed By: #### 5 7021-8 ####CALE Roth ([id number])[facility] ([facility])[address] [place] [address] WBC (Bld) [#/Vol] 11.1 x10*3/uL Normal 4.4-11.3 [facility] Comment on above: Performed By: #### 5 7021-8 ####CALE Roth ([id number])[facility] ([facility])[address] [place] [address] CT HEAD WO IV CONTRASTon CT HEAD WO IV CONTRAST Normal [facility] Calcium.ionizedon 03-29-2025 Calcium.ionized (Bld) [Moles/Vol] 1.10 mmol/L Normal 1.1-1.33 [facility] Comment on above: Result Comment: The performance characteristics of ionized calcium testedin heparinized plasma or serum have been validated by [facility] site where testing is performed.Testing on heparinized plasma or serum is not approved [facility]; however, such approval is not necessary. Performed By: #### 1 994-3 ####CALE Roth ([id number])[facility] ([facility])[address] [place] [address] Glucose Test strip manual (B ld) [Mass/Vol]on 03-29-2025 Glucose [Mass/Vol] 111 mg/dL High [address] [place] [address] Comment on above: Performed By: #### 2 341-6 ####CALE Roth ([id number])[facility] ([facility])[address] [place] [address] Glucose [Mass/Vol] 122 mg/dL High [address] [place] [address] Comment on above: Performed By: #### 2 341-6 ####CALE Roth ([id number])[facility] ([facility])[address] [place] [address] Glucose [Mass/Vol] 130 mg/dL High [address] [place] [address] Comment on above: Performed By: #### 2 341-6 ####CALE Roth ([id number])[facility] ([facility])[address] [place] [address] Glucose [Mass/Vol] 138 mg/dL High [address] [place] [address] Comment on above: Performed By: #### 2 341-6 ####CALE Roth ([id number])[facility] ([facility])[address] [place] [address] Magnesiumon 03-29-2025 Magnesium [Mass/Vol] 2.06 mg/dL Normal 1.60-2.40 [facility] Comment on above: Performed By: #### 1 9123-9 ####CALE Roth ([id number])[facility] ([facility])[address] [place] [address] RBC shape Nom (Bld)on 2024 RBC morphology finding Nom (Bld) No significant RBC morphology present Normal [facility] Comment on above: Performed By: #### 1 8225-3 ####CALE Roth ([id number])[facility] ([facility])[address] [place] [address] Renal function 2000 panelon 03-29-2025 Albumin BCP dye [Mass/Vol] 3.7 g/dL Normal 3.4-5.0 [facility] Comment on above: Performed By: #### 2 4362-6 ####CALE Roth ([id number])[facility] ([facility])[address] [place] [address] Anion gap [Moles/Vol] 11 mmol/L Normal 10-20 [facility] Comment on above: Performed By: #### 2 4362-6 ####CALE Roth ([id number])[facility] ([facility])[address] [place] [address] Calcium [Mass/Vol] 9.3 mg/dL Normal 8.6-10.6 [facility] Comment on above: Performed By: #### 2 4362-6 ####CALE Roth ([id number])[facility] ([facility])[address] [place] [address] Chloride [Moles/Vol] 98 mmol/L Normal 98-107 [facility] Comment on above: Performed By: #### 2 4362-6 ####CALE Roth ([id number])[facility] ([facility])[address] [place] [address] CO2 [Moles/Vol] 32 mmol/L Normal 21-32 [facility] Comment on above: Performed By: #### 2 4362-6 ####CALE Roth ([id number])[facility] ([facility])[address] [place] [address] Creatinine [Mass/Vol] 0.32 mg/dL Low 0.50-1.05 [facility] Comment on above: Performed By: #### 2 4362-6 ####CALE Roth ([id number])[facility] ([facility])[address] [place] [address] Glomerular filtration rate >90 Normal >60 [facility] Comment on above: Result Comment: Calc ulations of estimated GFR are performed using the 2020 CKD-EPI Study Refit equation without the race variable for the IDMS-Traceable creatinine methods.https://jasn.asnjournals.org/content/early/ASN .5560055892 Performed By: #### 2 4362-6 ####CALE Roth ([id number])[facility] ([facility])[address] [place] [address] Glucose [Mass/Vol] 134 mg/dL High 74-99 [facility] Comment on above: Performed By: #### 2 4362-6 ####CALE Roth ([id number])[facility] ([facility])[address] [place] [address] Phosphate [Mass/Vol] 3.0 mg/dL Normal 2.5-4.9 [facility] Comment on above: Performed By: #### 2 4362-6 ####CALE Roth ([id number])[facility] ([facility])[address] [place] [address] Potassium [Moles/Vol] 3.8 mmol/L Normal 3.5-5.3 [facility] Comment on above: Performed By: #### 2 4362-6 ####CALE Roth ([id number])[facility] ([facility])[address] [place] [address] Sodium [Moles/Vol] 137 mmol/L Normal 136-145 [facility] Comment on above: Performed By: #### 2 4362-6 ####CALE CAI L ([id number])[facility] ([facility])[address] [place] [address] Urea nitrogen [Mass/Vol] 12 mg/dL Normal 6-23 [facility] Comment on above: Performed By: #### 2 4362-6 ####CALE CAI L ([id number])[facility] ([facility])[address] [place] [address] Urinalysis complete W Reflex Culture panel (U)on 03-29-2025 Appearance (U) Turbid Normal Clear [facility] Comment on above: Performed By: #### 5 8077-9 ####CALE Roth ([id number])[facility] ([facility])[address] [place] [address] Bilirubin (U) [Mass/Vol] Negative Normal NEGATIVE [facility] Comment on above: Performed By: #### 5 8077-9 ####CALE Roth ([id number])[facility] ([facility])[address] [place] [address] Color (U) Yellow Normal Light-Yello w, Yellow, Dark-Yellow [facility] Comment on above: Performed By: #### 5 8077-9 ####CALE Roth ([id number])[facility] ([facility])[address] [place] [address] Glucose Auto test strip (U) [Mass/Vol] Normal Normal Normal [facility] Comment on above: Performed By: #### 5 8077-9 ####CALE CAI L ([id number])[facility] ([facility])[address] [place] [address] Ketones (U) [Mass/Vol] Negative Normal NEGATIVE [facility] Comment on above: Performed By: #### 5 8077-9 ####CALE Roth ([id number])[facility] ([facility])[address] [place] [address]227 Leukocyte esterase Auto test strip Ql (U) 25 Joe/uL Abnormal NEGATIVE [facility] Comment on above: Performed By: #### 5 8077-9 ####CALE CAI L ([id number])[facility] ([facility])[address] [place] [address] Nitrite Auto test strip Ql (U) Negative Normal NEGATIVE [facility] Comment on above: Performed By: #### 5 8077-9 ####CALE CAI L ([id number])[facility] ([facility])[address] [place] [address] pH (U) 6.5 [pH] Normal 5.0, 5.5, 6.0, 6.5, 7.0, 7.5, 8.0 [facility] Comment on above: Performed By: #### 5 8077-9 ####CALE Roth ([id number])[facility] ([facility])[address] [place] [address] Protein (U) [Mass/Vol] 10 (TRACE) Normal NEGATIVE, 10 (TRACE), 20 (TRACE) [facility] Comment on above: Performed By: #### 5 8077-9 ####CALE Roth ([id number])[facility] ([facility])[address] [place] [address] RBC (U) [#/Vol] Negative Normal NEGATIVE [facility] Comment on above: Performed By: #### 5 8077-9 ####CALE Roth ([id number])[facility] ([facility])[address] [place] [address] Specific gravity (U) [Rel density] 1.023 Normal 1.005-1.035 [facility] Comment on above: Performed By: #### 5 8077-9 ####CALE Roth ([id number])[facility] ([facility])[id number] [place] [address] Urobilinogen (U) [Mass/Vol] Normal Normal Normal [facility] Comment on above: Performed By: #### 5 8077-9 ####CALE Roth ([id number])[facility] ([facility])[address] [place] [address]83 Urinalysis microscopic panel Auto Ql (U)on 03-29-2025 Bacteria Auto (Urine sed) [#/Area] 1+ /HPF Abnormal NONE SEEN [facility] Comment on above: Performed By: #### 5 3315-8 ####CALE Roth (19603)[facility] ([facility])[address] [place] [address]389 Epithelial cells.squamous Auto (Urine sed) [#/Area] 1-9 (SPARSE) Normal Reference range not established . [facility] Comment on above: Performed By: #### 5 3315-8 ####CALE Roth ([id number])[facility] ([facility])[address] [place] [address] Mucus Auto (Urine sed) [#/Area] FEW Normal Reference range not established . [facility] Comment on above: Performed By: #### 5 3315-8 ####CALE Roth ([id number])[facility] ([facility])[address] [place] [address] RBC Auto (Urine sed) [#/Area] 3-5 Normal NONE, 1-2, 3-5 [facility] Comment on above: Performed By: #### 5 3315-8 ####CALE Roth ([id number])[facility] ([facility])[address]67 [place] [address] WBC Auto (Urine sed) [#/Area] 1-5 Normal 1-5, NONE [facility] Comment on above: Performed By: #### 5 3315-8 ####CALE Roth ([id number])[facility] ([facility])[address]25 [place] [address] Yeast.budding Computer assisted (U) [#/Area] PRESENT Abnormal NONE [facility] Comment on above: Performed By: #### 5 3315-8 ####CALE Roth ([id number])[facility] ([facility])[address]36 [place] [address] XR ABDOMEN 1 VIEWon 03-29-20 XR ABDOMEN 1 VIEW Normal [facility] CBC W Auto Differential pane l (Bld)on 03-28-2025 Basophils (Bld) [#/Vol] 0.04 x10*3/uL Normal 0.00-0.10 [facility] Comment on above: Performed By: #### 5 7021-8 ####CALE Roth ([id number])[facility] ([facility])[address]57 [place] [address] Basophils/100 WBC (Bld) 0.8 % Normal 0.0-2.0 [facility] Comment on above: Performed By: #### 5 7021-8 ####CALE Roth ([id number])[facility] ([facility])[id number] [place] [address]73 Eosinophils (Bld) [#/Vol] 0.13 x10*3/uL Normal 0.00-0.70 [facility] Comment on above: Performed By: #### 5 7021-8 ####CALE Roth ([id number])[facility] ([facility])[address] [place] [address]486 Eosinophils/100 WBC (Bld) 2.6 % Normal 0.0-6.0 [facility] Comment on above: Performed By: #### 5 7021-8 ####CALE Roth ([id number])[facility] ([facility])[address] [place] [address]72 Erythrocyte distribution width (RBC) [Ratio] 14.3 % Normal 11.5-14.5 [facility] Comment on above: Performed By: #### 5 7021-8 ####CALE Roth ([id number])[facility] ([facility])[address] [place] [address] 68296 Hematocrit (Bld) [Volume fraction] 34.6 % Low 36.0-46.0 [facility] Comment on above: Performed By: #### 5 7021-8 ####CALE Roth ([id number])[facility] ([facility])[address] [place] [address] 39132 Hemoglobin (Bld) [Mass/Vol] 11.5 g/dL Low 12.0-16.0 [facility] Comment on above: Performed By: #### 5 7021-8 ####CALE Roth ([id number])[facility] ([facility])[address] [place] [address]12 Immature granulocytes (Bld) [#/Vol] 0.15 x10*3/uL Normal 0.00-0.70 [facility] Comment on above: Performed By: #### 5 7021-8 ####CALE Roth ([id number])[facility] ([facility])[address] [place] [address] Immature granulocytes/100 WBC (Bld) 3.0 % High 0.0-0.9 [facility] Comment on above: Result Comment: Aleisha ture Granulocyte Count (IG) includes promyelocytes, myelocytes and metamyelocytes but does not include bands. Percent differential counts (%) should be interpreted in the context of the absolute cell counts (cells/UL). Performed By: #### 5 7021-8 ####CALE Roth ([id number])[facility] ([facility])[address] [place] [address] 21117 Lymphocytes (Bld) [#/Vol] 1.25 x10*3/uL Normal 1.20-4.80 [facility] Comment on above: Performed By: #### 5 7021-8 ####CALE Roth ([id number])[facility] ([facility])[address]372 [place] [address] Lymphocytes/100 WBC (Bld) 24.6 % Normal 13.0-44.0 [facility] Comment on above: Performed By: #### 5 7021-8 ####CALE Roth ([id number])[facility] ([facility])[address]16 [place] [address] MCH (RBC) [Entitic mass] 30.0 pg Normal 26.0-34.0 [facility] Comment on above: Performed By: #### 5 7021-8 ####CALE Roth ([id number])[facility] ([facility])[address]99 [place] [address] MCHC (RBC) [Mass/Vol] 33.2 g/dL Normal 32.0-36.0 [facility] Comment on above: Performed By: #### 5 7021-8 ####CALE Roth ([id number])[facility] ([facility])[address]346 [place] [address] MCV (RBC) [Entitic vol] 90 fL Normal 80-100 [facility] Comment on above: Performed By: #### 5 7021-8 ####CALE Roth ([id number])[facility] ([facility])[address]23 [place] [address] Monocytes (Bld) [#/Vol] 0.41 x10*3/uL Normal 0.10-1.00 [facility] Comment on above: Performed By: #### 5 7021-8 ####CALE Roth ([id number])[facility] ([facility])[address]203 [place] [address] Monocytes/100 WBC (Bld) 8.1 % Normal 2.0-10.0 [facility] Comment on above: Performed By: #### 5 7021-8 ####CALE Roth ([id number])[facility] ([facility])[address]107 [place] [address] Neutrophils (Bld) [#/Vol] 3.10 x10*3/uL Normal 1.20-7.70 [facility] Comment on above: Result Comment: Perc ent differential counts (%) should be interpreted in the context of the absolute cell counts (cells/uL). Performed By: #### 5 7021-8 ####CALE Roth ([id number])[facility] ([facility])[address]90 [place] [address] Neutrophils/100 WBC (Bld) 60.9 % Normal 40.0-80.0 [facility] Comment on above: Performed By: #### 5 7021-8 ####CALE Roth ([id number])[facility] ([facility])[address] [place] [address] Nucleated RBC/100 WBC (Bld) [Ratio] 0.0 /100 WBCs Normal 0.0-0.0 [facility] Comment on above: Performed By: #### 5 7021-8 ####CALE Roth ([id number])[facility] ([facility])[address] [place] [address] Platelets (Bld) [#/Vol] 231 x10*3/uL Normal 150-450 [facility] Comment on above: Performed By: #### 5 7021-8 ####CALE Roth ([id number])[facility] ([facility])[address] [place] [address] RBC (Bld) [#/Vol] 3.83 x10*6/uL Low 4.00-5.20 [facility] Comment on above: Performed By: #### 5 7021-8 ####CALE Roth ([id number])[facility] ([facility])[id number] [place] [address] 68906 WBC (Bld) [#/Vol] 5.1 x10*3/uL Normal 4.4-11.3 [facility] Comment on above: Performed By: #### 5 7021-8 ####CALE Roth ([id number])[facility] ([facility])[id number] [place] [address] 34873 Calcium.ionizedon 03-28-2025 Calcium.ionized (Bld) [Moles/Vol] 1.03 mmol/L Low 1.1-1.33 [facility] Comment on above: Result Comment: The performance characteristics of ionized calcium testedin heparinized plasma or serum have been validated by [facility] where testing is performed.Testing on heparinized plasma or serum is not approved bythe FDA; however, such approval is not necessary. Performed By: #### 1 994-3 ####CALE Roth ([id number])[facility] ([facility])[id number] [place] [address] 04204 Glucose Test strip manual (B ld) [Mass/Vol]on 03-28-2025 Glucose [Mass/Vol] 127 mg/dL High 74-99 [facility] Comment on above: Performed By: #### 2 341-6 ####CALE Roth ([id number])[facility] ([facility])[address] [place] [address], [place] [address] Glucose [Mass/Vol] 116 mg/dL High 74-99 [facility] Comment on above: Performed By: #### 2 341-6 ####CALE Roth ([id number])[facility] ([facility])[address] [place] [address] Glucose [Mass/Vol] 126 mg/dL High 74-99 [facility] Comment on above: Performed By: #### 2 341-6 ####CALE Roth ([id number])[facility] ([facility])[address]201 [place] [address] Magnesiumon 03-28-2025 Magnesium [Mass/Vol] 2.08 mg/dL Normal 1.60-2.40 [facility] Comment on above: Performed By: #### 1 9123-9 ####CALE Roth ([id number])[facility] ([facility])[address] [place] [address] Renal function 2000 panelon 03-28-2025 Albumin BCP dye [Mass/Vol] 4.1 g/dL Normal 3.4-5.0 [facility] Comment on above: Performed By: #### 2 4362-6 ####CALE Roth ([id number])[facility] ([facility])[address] [place] [address] Anion gap [Moles/Vol] 13 mmol/L Normal 10-20 [facility] Comment on above: Performed By: #### 2 4362-6 ####CALE Roth ([id number])[facility] ([facility])[address] [place] [address] Calcium [Mass/Vol] 9.5 mg/dL Normal 8.6-10.6 [facility] Comment on above: Performed By: #### 2 4362-6 ####CALE Roth ([id number])[facility] ([facility])[address] [place] [address] Chloride [Moles/Vol] 96 mmol/L Low 98-107 [facility] Comment on above: Performed By: #### 2 4362-6 ####CALE Roth ([id number])[facility] ([facility])[address] [place] [address] CO2 [Moles/Vol] 29 mmol/L Normal 21-32 [facility] Comment on above: Performed By: #### 2 4362-6 ####CALE Roth ([id number])[facility] ([facility])[address] [place] [address] Creatinine [Mass/Vol] 0.39 mg/dL Low 0.50-1.05 [facility] Comment on above: Performed By: #### 2 4362-6 ####CALE Roth ([id number])[facility] ([facility])[address] [place] [address] Glomerular filtration rate >90 Normal >60 [facility] Comment on above: Result Comment: Calc ulations of estimated GFR are performed using the 2020 CKD-EPI Study Refit equation without the race variable for the IDMS-Traceable creatinine methods.https://jasn.asnjournals.org/content//ASN .7838636027 Performed By: #### 2 4362-6 ####CALE Roth ([id number])[facility] ([facility])[address] [place] [address] Glucose [Mass/Vol] 170 mg/dL High 74-99 [facility] Comment on above: Performed By: #### 2 4362-6 ####CALE Roth ([id number])[facility] ([facility])[address] [place] [address] Phosphate [Mass/Vol] 3.1 mg/dL Normal 2.5-4.9 [facility] Comment on above: Performed By: #### 2 4362-6 ####CALE Roth ([id number])[facility] ([facility])[address] [place] [address] Potassium [Moles/Vol] 3.9 mmol/L Normal 3.5-5.3 [facility] Comment on above: Performed By: #### 2 4362-6 ####CALE Roth ([id number])[facility] ([facility])[address] [place] [address] Sodium [Moles/Vol] 134 mmol/L Low 136-145 [facility] Comment on above: Performed By: #### 2 4362-6 ####CALE Roth ([id number])[facility] ([facility])[address] [place] [address] Urea nitrogen [Mass/Vol] 14 mg/dL Normal 6-23 [facility] Comment on above: Performed By: #### 2 4362-6 ####CALE Roth ([id number])[facility] ([facility])[id number] [place] [address] XR CHEST 1 VIEWon 03-28-2025 XR CHEST 1 VIEW Normal [facility] XR CHEST 1 VIEW Normal [facility] CBC W Auto Differential pane l (Bld)on 03-27-2025 Basophils (Bld) [#/Vol] 0.04 x10*3/uL Normal 0.00-0.10 [facility] Comment on above: Performed By: #### 5 7021-8 ####CALE Roth ([id number])[facility] ([facility])[address] [place] [address] Basophils/100 WBC (Bld) 0.4 % Normal 0.0-2.0 [facility] Comment on above: Performed By: #### 5 7021-8 ####CALE Roth ([id number])[facility] ([facility])[id number] [place] [address] Eosinophils (Bld) [#/Vol] 0.20 x10*3/uL Normal 0.00-0.70 [facility] Comment on above: Performed By: #### 5 7021-8 ####CALE Roth ([id number])[facility] ([facility])[address] [place] [address] Eosinophils/100 WBC (Bld) 2.2 % Normal 0.0-6.0 [facility] Comment on above: Performed By: #### 5 7021-8 ####CALE Roth ([id number])[facility] ([facility])[address] [place] [address] Erythrocyte distribution width (RBC) [Ratio] 14.4 % Normal 11.5-14.5 [facility] Comment on above: Performed By: #### 5 7021-8 ####CALE Roth ([id number])[facility] ([facility])[address] [place] [address] Hematocrit (Bld) [Volume fraction] 33.1 % Low 36.0-46.0 [facility] Comment on above: Performed By: #### 5 7021-8 ####CALE Roth ([id number])[facility] ([facility])[address] [place] [address] Hemoglobin (Bld) [Mass/Vol] 11.1 g/dL Low 12.0-16.0 [facility] Comment on above: Performed By: #### 5 7021-8 ####CALE Roth ([id number])[facility] ([facility])[address] [place] [address] Immature granulocytes (Bld) [#/Vol] 0.17 x10*3/uL Normal 0.00-0.70 [facility] Comment on above: Performed By: #### 5 7021-8 ####CALE Roth ([id number])[facility] ([facility])[address] [place] [address] Immature granulocytes/100 WBC (Bld) 1.9 % High 0.0-0.9 [facility] Comment on above: Result Comment: Aleisha ture Granulocyte Count (IG) includes promyelocytes, myelocytes and metamyelocytes but does not include bands. Percent differential counts (%) should be interpreted in the context of the absolute cell counts (cells/UL). Performed By: #### 5 7021-8 ####CALE Roth ([id number])[facility] ([facility])[address] [place] [address] Lymphocytes (Bld) [#/Vol] 1.31 x10*3/uL Normal 1.20-4.80 [facility] Comment on above: Performed By: #### 5 7021-8 ####CALE Roth ([id number])[facility] ([facility])[id number] [place] [address] Lymphocytes/100 WBC (Bld) 14.3 % Normal 13.0-44.0 [facility] Comment on above: Performed By: #### 5 7021-8 ####CALE Roth ([id number])[facility] ([facility])[address] [place] [address] MCH (RBC) [Entitic mass] 30.7 pg Normal 26.0-34.0 [facility] Comment on above: Performed By: #### 5 7021-8 ####CALE Roth ([id number])[facility] ([facility])[address] [place] [address] MCHC (RBC) [Mass/Vol] 33.5 g/dL Normal 32.0-36.0 [facility] Comment on above: Performed By: #### 5 7021-8 ####CALE Roth ([id number])[facility] ([facility])[address] [place] [address] MCV (RBC) [Entitic vol] 91 fL Normal 80-100 [facility] Comment on above: Performed By: #### 5 7021-8 ####CALE Roth ([id number])[facility] ([facility])[address] [place] [address] Monocytes (Bld) [#/Vol] 0.52 x10*3/uL Normal 0.10-1.00 [facility] Comment on above: Performed By: #### 5 7021-8 ####CALE Roth ([id number])[facility] ([facility])[address] [place] [address] Monocytes/100 WBC (Bld) 5.7 % Normal 2.0-10.0 [facility] Comment on above: Performed By: #### 5 7021-8 ####CALE Roth ([id number])[facility] ([facility])[address] [place] [address] Neutrophils (Bld) [#/Vol] 6.89 x10*3/uL Normal 1.20-7.70 [facility] Comment on above: Result Comment: Perc ent differential counts (%) should be interpreted in the context of the absolute cell counts (cells/uL). Performed By: #### 5 7021-8 ####CALE Roth ([id number])[facility] ([facility])[address] [place] [address] Neutrophils/100 WBC (Bld) 75.5 % Normal 40.0-80.0 [facility] Comment on above: Performed By: #### 5 7021-8 ####CALE Roth ([id number])[facility] ([facility])[address] [place] [address] Nucleated RBC/100 WBC (Bld) [Ratio] 0.0 /100 WBCs Normal 0.0-0.0 [facility] Comment on above: Performed By: #### 5 7021-8 ####CALE Roth ([id number])[facility] ([facility])[address] [place] [address] Platelets (Bld) [#/Vol] 216 x10*3/uL Normal 150-450 [facility] Comment on above: Performed By: #### 5 7021-8 ####CALE Roth ([id number])[facility] ([facility])[address] [place] [address] RBC (Bld) [#/Vol] 3.62 x10*6/uL Low 4.00-5.20 [facility] Comment on above: Performed By: #### 5 7021-8 ####CALE Roth ([id number])[facility] ([facility])[address] [place] [address] WBC (Bld) [#/Vol] 9.1 x10*3/uL Normal 4.4-11.3 [facility] Comment on above: Performed By: #### 5 7021-8 ####CALE Roth ([id number])[facility] ([facility])[address] [place] [address] Calcium.ionizedon 03-27-2025 Calcium.ionized (Bld) [Moles/Vol] 1.20 mmol/L Normal 1.1-1.33 [facility] Comment on above: Result Comment: The performance characteristics of ionized calcium testedin heparinized plasma or serum have been validated by [facility] site where testing is performed.Testing on heparinized plasma or serum is not approved bythe FDA; however, such approval is not necessary. Performed By: #### 1 994-3 ####CALE Roth ([id number])[facility] ([facility])[address] [place] [address] Glucose Test strip manual (B ld) [Mass/Vol]on 03-27-2025 Glucose [Mass/Vol] 134 mg/dL High [address] [place] [address] Comment on above: Performed By: #### 2 341-6 ####CALE Roth ([id number])[facility] ([facility])[address] [place] [address] Glucose [Mass/Vol] 131 mg/dL High [address] [place] [address] Comment on above: Performed By: #### 2 341-6 ####CALE Roth ([id number])[facility] ([facility])[address] [place] [address] Glucose [Mass/Vol] 123 mg/dL High [address] [place] [address] Comment on above: Performed By: #### 2 341-6 ####CALE Roth ([id number])[facility] ([facility])[address] [place] [address] Glucose [Mass/Vol] 123 mg/dL High 74-99 [facility] Comment on above: Performed By: #### 2 341-6 ####CALE Roth ([id number])[facility] ([facility])[address] [place] [address] Glucose [Mass/Vol] 123 mg/dL High 74-99 [facility] Comment on above: Performed By: #### 2 341-6 ####CALE Roth ([id number])[facility] ([facility])[address] [place] [address] Glucose [Mass/Vol] 152 mg/dL High 74-99 [facility] Comment on above: Performed By: #### 2 341-6 ####CALE Roth ([id number])[facility] ([facility])[address] [place] [address] Magnesiumon 03-27-2025 Magnesium [Mass/Vol] 2.20 mg/dL Normal 1.60-2.40 [facility] Comment on above: Result Comment: MILD HEMOLYSIS DETECTED. The result may be falsely elevated due to hemolysis or other interferents. Clinical correlation is recommended. Repeat testing may be considered. Performed By: #### 1 9123-9 ####CALE Roth ([id number])[facility] ([facility])[address] [place] [address] Renal function 2000 panelon 03-27-2025 Albumin BCP dye [Mass/Vol] 4.0 g/dL Normal 3.4-5.0 [facility] Comment on above: Performed By: #### 2 4362-6 ####CALE Roth ([id number])[facility] ([facility])[address] [place] [address] Anion gap [Moles/Vol] 14 mmol/L Normal 10-20 [facility] Comment on above: Performed By: #### 2 4362-6 ####CALE Roth ([id number])[facility] ([facility])[address] [place] [address] Calcium [Mass/Vol] 9.5 mg/dL Normal 8.6-10.6 [facility] Comment on above: Performed By: #### 2 4362-6 ####CALE Roth ([id number])[facility] ([facility])[address] [place] [address] Chloride [Moles/Vol] 99 mmol/L Normal 98-107 [facility] Comment on above: Performed By: #### 2 4362-6 ####CALE CAI L ([id number])[facility] ([facility])[address] [place] [address] CO2 [Moles/Vol] 28 mmol/L Normal 21-32 [facility] Comment on above: Performed By: #### 2 4362-6 ####CALE CAI L ([id number])[facility] ([facility])[address] [place] [address] Creatinine [Mass/Vol] 0.32 mg/dL Low 0.50-1.05 [facility] Comment on above: Performed By: #### 2 4362-6 ####CALE CAI L ([id number])[facility] ([facility])[address] [place] [address] Glomerular filtration rate >90 Normal >60 [facility] Comment on above: Result Comment: Calc ulations of estimated GFR are performed using the 2020 CKD-EPI Study Refit equation without the race variable for the IDMS-Traceable creatinine methods.https://jasn.asnjournals.org/content/early/ASN .6100187666 Performed By: #### 2 4362-6 ####CALE CAI L ([id number])[facility] ([facility])[address] [place] [address] Glucose [Mass/Vol] 122 mg/dL High 74-99 [facility] Comment on above: Performed By: #### 2 4362-6 ####CALE Roth ([id number])[facility] ([facility])[address] [place] [address] Phosphate [Mass/Vol] 3.4 mg/dL Normal 2.5-4.9 [facility] Comment on above: Result Comment: MILD HEMOLYSIS DETECTED. The result may be falsely elevated due to hemolysis or other interferents. Clinical correlation is recommended. Repeat testing may be considered. Performed By: #### 2 4362-6 ####CALE Roth ([id number])[facility] ([facility])[address] [place] [address] Potassium [Moles/Vol] 4.1 mmol/L Normal 3.5-5.3 [facility] Comment on above: Result Comment: MILD HEMOLYSIS DETECTED. The result may be falsely elevated due to hemolysis or other interferents. Clinical correlation is recommended. Repeat testing may be considered. Performed By: #### 2 4362-6 ####CALE Roth ([id number])[facility] ([facility])[address] [place] [address] Sodium [Moles/Vol] 137 mmol/L Normal 136-145 [facility] Comment on above: Performed By: #### 2 4362-6 ####CALE Roth ([id number])[facility] ([facility])[address] [place] [address] Urea nitrogen [Mass/Vol] 12 mg/dL Normal 6-23 [facility] Comment on above: Performed By: #### 2 4362-6 ####CALE Roth ([id number])[facility] ([facility])[address] [place] [address] C reactive proteinon 025 CRP [Mass/Vol] 3.41 mg/dL High <1.00 [facility] Comment on above: Performed By: #### 1 988-5 ####CALE Roth ([id number])[facility] ([facility])[address] [place] [address] CBC W Auto Differential pane l (Bld)on 03-26-2025 Basophils (Bld) [#/Vol] 0.02 x10*3/uL Normal 0.00-0.10 [facility] Comment on above: Performed By: #### 5 7021-8 ####CALE Roth ([id number])[facility] ([facility])[address] [place] [address] Basophils/100 WBC (Bld) 0.2 % Normal 0.0-2.0 [facility] Comment on above: Performed By: #### 5 7021-8 ####CALE Roth ([id number])[facility] ([facility])[address] [place] [address] Eosinophils (Bld) [#/Vol] 0.25 x10*3/uL Normal 0.00-0.70 [facility] Comment on above: Performed By: #### 5 7021-8 ####CALE Roth ([id number])[facility] ([facility])[address] [place] [address] Eosinophils/100 WBC (Bld) 3.1 % Normal 0.0-6.0 [facility] Comment on above: Performed By: #### 5 7021-8 ####CALE Roth ([id number])[facility] ([facility])[address] [place] [address] Erythrocyte distribution width (RBC) [Ratio] 13.9 % Normal 11.5-14.5 [facility] Comment on above: Performed By: #### 5 7021-8 ####CALE Roth ([id number])[facility] ([facility])[address] [place] [address] Hematocrit (Bld) [Volume fraction] 26.2 % Low 36.0-46.0 [facility] Comment on above: Performed By: #### 5 7021-8 ####CALE Roth ([id number])[facility] ([facility])[address]49 [place] [address] Hemoglobin (Bld) [Mass/Vol] 9.5 g/dL Low 12.0-16.0 [facility] Comment on above: Performed By: #### 5 7021-8 ####CALE Roth ([id number])[facility] ([facility])[address]646 [place] [address] Immature granulocytes (Bld) [#/Vol] 0.16 x10*3/uL Normal 0.00-0.70 [facility] Comment on above: Performed By: #### 5 7021-8 ####CALE Roth ([id number])[facility] ([facility])[address] [place] [address] Immature granulocytes/100 WBC (Bld) 2.0 % High 0.0-0.9 [facility] Comment on above: Result Comment: Aleisha ture Granulocyte Count (IG) includes promyelocytes, myelocytes and metamyelocytes but does not include bands. Percent differential counts (%) should be interpreted in the context of the absolute cell counts (cells/UL). Performed By: #### 5 7021-8 ####CALE Roth ([id number])[facility] ([facility])[address] [place] [address] Lymphocytes (Bld) [#/Vol] 1.40 x10*3/uL Normal 1.20-4.80 [facility] Comment on above: Performed By: #### 5 7021-8 ####CALE Roth ([id number])[facility] ([facility])[address]16 [place] [address] Lymphocytes/100 WBC (Bld) 17.5 % Normal 13.0-44.0 [facility] Comment on above: Performed By: #### 5 7021-8 ####CALE Roth ([id number])[facility] ([facility])[address]17 [place] [address] MCH (RBC) [Entitic mass] 30.4 pg Normal 26.0-34.0 [facility] Comment on above: Performed By: #### 5 7021-8 ####CALE Roth ([id number])[facility] ([facility])[address]437 [place] [address] MCHC (RBC) [Mass/Vol] 36.3 g/dL High 32.0-36.0 [facility] Comment on above: Performed By: #### 5 7021-8 ####CALE Roth ([id number])[facility] ([facility])[address]842 [place] [address] MCV (RBC) [Entitic vol] 84 fL Normal 80-100 [facility] Comment on above: Performed By: #### 5 7021-8 ####CALE Roth ([id number])[facility] ([facility])[address]42 [place] [address] Monocytes (Bld) [#/Vol] 0.49 x10*3/uL Normal 0.10-1.00 [facility] Comment on above: Performed By: #### 5 7021-8 ####CALE Roth ([id number])[facility] ([facility])[address]10 [place] [address] Monocytes/100 WBC (Bld) 6.1 % Normal 2.0-10.0 [facility] Comment on above: Performed By: #### 5 7021-8 ####CALE Roth ([id number])[facility] ([facility])[address]273 [place] [address] Neutrophils (Bld) [#/Vol] 5.69 x10*3/uL Normal 1.20-7.70 [facility] Comment on above: Result Comment: Perc ent differential counts (%) should be interpreted in the context of the absolute cell counts (cells/uL). Performed By: #### 5 7021-8 ####CALE Roth ([id number])[facility] ([facility])[address]171 [place] [address] Neutrophils/100 WBC (Bld) 71.1 % Normal 40.0-80.0 [facility] Comment on above: Performed By: #### 5 7021-8 ####CALE Roth ([id number])[facility] ([facility])[address]39 [place] [address] Nucleated RBC/100 WBC (Bld) [Ratio] 0.0 /100 WBCs Normal 0.0-0.0 [facility] Comment on above: Performed By: #### 5 7021-8 ####CALE Roth ([id number])[facility] ([facility])[address]405 [place] [address] Platelets (Bld) [#/Vol] 234 x10*3/uL Normal 150-450 [facility] Comment on above: Performed By: #### 5 7021-8 ####CALE Roth ([id number])[facility] ([facility])[address]75 [place] [address] RBC (Bld) [#/Vol] 3.12 x10*6/uL Low 4.00-5.20 [facility] Comment on above: Performed By: #### 5 7021-8 ####CALE Roth ([id number])[facility] ([facility])[address]33 [place] [address] WBC (Bld) [#/Vol] 8.0 x10*3/uL Normal 4.4-11.3 [facility] Comment on above: Performed By: #### 5 7021-8 ####CALE Roth ([id number])[facility] ([facility])[address] [place] [address] CT HEAD WO IV CONTRASTon CT HEAD WO IV CONTRAST Normal [facility] Calcium.ionizedon 03-26-2025 Calcium.ionized (Bld) [Moles/Vol] 1.20 mmol/L Normal 1.1-1.33 [facility] Comment on above: Result Comment: The performance characteristics of ionized calcium testedin heparinized plasma or serum have been validated by [facility] where testing is performed.Testing on heparinized plasma or serum is not approved [facility] FDA; however, such approval is not necessary. Performed By: #### 1 994-3 ####CALE Roth ([id number])[facility] ([facility])[address]506 [place] [address] ESR Westergren method (Bld) [Velocity]on 03-26-2025 ESR (Bld) [Velocity] 33 mm/h High 0-20 [facility] Comment on above: Performed By: #### 4 537-7 ####CALE Roth ([id number])[facility] ([facility])[address] [place] [address] Glucose Test strip manual (B ld) [Mass/Vol]on 03-26-2025 Glucose [Mass/Vol] 128 mg/dL High 74-99 [facility] Comment on above: Performed By: #### 2 341-6 ####CALE Roth ([id number])[facility] ([facility])[id number] [place] [address] Glucose [Mass/Vol] 124 mg/dL High 74-99 [facility] Comment on above: Performed By: #### 2 341-6 ####CALE Roth ([id number])[facility] ([facility])[id number] [place] [address] [id number] Glucose [Mass/Vol] 113 mg/dL High 74-99 [facility] Comment on above: Performed By: #### 2 341-6 ####CALE Roth ([id number])[facility] ([facility])[id number] [place] [address] [id number] Magnesiumon 03-26-2025 Magnesium [Mass/Vol] 1.82 mg/dL Normal 1.60-2.40 [facility] Comment on above: Performed By: #### 1 9123-9 ####CALE Roth ([id number])[facility] ([facility])[id number] [place] [address] 79133 Renal function 2000 panelon 03-26-2025 Albumin BCP dye [Mass/Vol] 3.6 g/dL Normal 3.4-5.0 [facility] Comment on above: Performed By: #### 2 4362-6 ####CALE RUTLEDGEER L ([id number])[facility] ([facility])[address] [place] [address] Anion gap [Moles/Vol] 12 mmol/L Normal 10-20 [facility] Comment on above: Performed By: #### 2 4362-6 ####CALE RUTLEDGEER L ([id number])[facility] ([facility])[address] [place] [address] Calcium [Mass/Vol] 8.8 mg/dL Normal 8.6-10.6 [facility] Comment on above: Performed By: #### 2 4362-6 ####CALE CAI L ([id number])[facility] ([facility])[address] [place] [address] Chloride [Moles/Vol] 103 mmol/L Normal 98-107 [facility] Comment on above: Performed By: #### 2 4362-6 ####CALE TOSCANOMOTZER L ([id number])[facility] ([facility])[address] [place] [address] CO2 [Moles/Vol] 27 mmol/L Normal 21-32 [facility] Comment on above: Performed By: #### 2 4362-6 ####CALE TOSCANOMOTZER L ([id number])[facility] ([facility])[address] [place] [address] Creatinine [Mass/Vol] 0.24 mg/dL Low 0.50-1.05 [facility] Comment on above: Performed By: #### 2 4362-6 ####CALE TOSCANOMOTZER L ([id number])[facility] ([facility])[address] [place] [address] Glomerular filtration rate >90 Normal >60 [facility] Comment on above: Result Comment: Calc ulations of estimated GFR are performed using the 2020 CKD-EPI Study Refit equation without the race variable for the IDMS-Traceable creatinine methods.https://jasn.asnjournals.org/content//ASN .4563546338 Performed By: #### 2 4362-6 ####CALE Roth ([id number])[facility] ([facility])[address] [place] [address] Glucose [Mass/Vol] 122 mg/dL High 74-99 [facility] Comment on above: Performed By: #### 2 4362-6 ####CALE Roth ([id number])[facility] ([facility])[address] [place] [address] Phosphate [Mass/Vol] 2.3 mg/dL Low 2.5-4.9 [facility] Comment on above: Performed By: #### 2 4362-6 ####CALE Roth ([id number])[facility] ([facility])[address] [place] [address] Potassium [Moles/Vol] 3.4 mmol/L Low 3.5-5.3 [facility] Comment on above: Performed By: #### 2 4362-6 ####CALE CAI L (44072)[facility] ([facility])[address] [place] [address] Sodium [Moles/Vol] 139 mmol/L Normal 136-145 [facility] Comment on above: Performed By: #### 2 4362-6 ####CALE Roth ([id number])[facility] ([facility])[address] [place] [address] Urea nitrogen [Mass/Vol] 8 mg/dL Normal 6-23 [facility] Comment on above: Performed By: #### 2 4362-6 ####CALE CAI L ([id number])[facility] ([facility])[address] [place] [address] Thyrotropinon 03-26-2025 TSH Qn 3.32 m[IU]/L Normal 0.44-3.98 [facility] Comment on above: Order Comment: TSH t esting is performed using different testing methodology at [facility] than at other [facility]. Direct result comparisons should only be made within the same method. Performed By: #### 3 016-3 ####CALE Roth ([id number])[facility] ([facility])[address] [place] [address] Thyroxine.freeon 03-26-2025 Free T4 [Mass/Vol] 1.58 ng/dL High 0.78-1.48 [facility] Comment on above: Order Comment: Thyro xine Free testing is performed using different testing methodology at [facility] than at other [facility]. Direct result comparisons should only be made within the same method. Performed By: #### 3 024-7 ####CALE Roth ([id number])[facility] ([facility])[address] [place] [address] Triiodothyronine.freeon Free T3 [Mass/Vol] 2.8 pg/mL Normal 2.3-4.2 [facility] Comment on above: Performed By: #### 3 051-0 ####CALE Roth ([id number])[facility] ([facility])[address] [place] [address] 18124 C reactive proteinon 025 CRP [Mass/Vol] 4.86 mg/dL High <1.00 [facility] Comment on above: Performed By: #### 1 988-5 ####CALE Roth ([id number])[facility] ([facility])[address] [place] [address] 10745 CBC W Auto Differential pane l (Bld)on 03-25-2025 Basophils (Bld) [#/Vol] 0.02 x10*3/uL Normal 0.00-0.10 [facility] Comment on above: Performed By: #### 5 7021-8 ####CALE Roth ([id number])[facility] ([facility])[address] [place] [address] 22176 Basophils/100 WBC (Bld) 0.1 % Normal 0.0-2.0 [facility] Comment on above: Performed By: #### 5 7021-8 ####CALE Roth ([id number])[facility] ([facility])[address] [place] [address] 51263 Eosinophils (Bld) [#/Vol] 0.12 x10*3/uL Normal 0.00-0.70 [facility] Comment on above: Performed By: #### 5 7021-8 ####CALE Roth ([id number])[facility] ([facility])[address] [place] [address] 81120 Eosinophils/100 WBC (Bld) 0.9 % Normal 0.0-6.0 [facility] Comment on above: Performed By: #### 5 7021-8 ####CALE Roth ([id number])[facility] ([facility])[address] [place] [address]683 Erythrocyte distribution width (RBC) [Ratio] 13.6 % Normal 11.5-14.5 [facility] Comment on above: Performed By: #### 5 7021-8 ####CALE Roth ([id number])[facility] ([facility])[address] [place] [address] 11581 Hematocrit (Bld) [Volume fraction] 30.3 % Low 36.0-46.0 [facility] Comment on above: Performed By: #### 5 7021-8 ####CALE Roth ([id number])[facility] ([facility])[address] [place] [address] 36248 Hemoglobin (Bld) [Mass/Vol] 10.8 g/dL Low 12.0-16.0 [facility] Comment on above: Performed By: #### 5 7021-8 ####CALE Roth ([id number])[facility] ([facility])[address] [place] [address] 26098 Immature granulocytes (Bld) [#/Vol] 0.16 x10*3/uL Normal 0.00-0.70 [facility] Comment on above: Performed By: #### 5 7021-8 ####CALE Roth ([id number])[facility] ([facility])[address] [place] [address] Immature granulocytes/100 WBC (Bld) 1.1 % High 0.0-0.9 [facility] Comment on above: Result Comment: Aleisha ture Granulocyte Count (IG) includes promyelocytes, myelocytes and metamyelocytes but does not include bands. Percent differential counts (%) should be interpreted in the context of the absolute cell counts (cells/UL). Performed By: #### 5 7021-8 ####CALE Roth ([id number])[facility] ([facility])[address] [place] [address] Lymphocytes (Bld) [#/Vol] 1.36 x10*3/uL Normal 1.20-4.80 [facility] Comment on above: Performed By: #### 5 7021-8 ####CALE Roth ([id number])[facility] ([facility])[address] [place] [address] Lymphocytes/100 WBC (Bld) 9.8 % Normal 13.0-44.0 [facility] Comment on above: Performed By: #### 5 7021-8 ####CALE Roth ([id number])[facility] ([facility])[address]68 [place] [address] MCH (RBC) [Entitic mass] 30.5 pg Normal 26.0-34.0 [facility] Comment on above: Performed By: #### 5 7021-8 ####CALE Roth ([id number])[facility] ([facility])[address] [place] [address] MCHC (RBC) [Mass/Vol] 35.6 g/dL Normal 32.0-36.0 [facility] Comment on above: Performed By: #### 5 7021-8 ####CALE Roth ([id number])[facility] ([facility])[address]195 [place] [address] MCV (RBC) [Entitic vol] 86 fL Normal 80-100 [facility] Comment on above: Performed By: #### 5 7021-8 ####CALE Roth ([id number])[facility] ([facility])[address] [place] [address] Monocytes (Bld) [#/Vol] 0.95 x10*3/uL Normal 0.10-1.00 [facility] Comment on above: Performed By: #### 5 7021-8 ####CALE Roth ([id number])[facility] ([facility])[address] [place] [address] Monocytes/100 WBC (Bld) 6.8 % Normal 2.0-10.0 [facility] Comment on above: Performed By: #### 5 7021-8 ####CALE Roth ([id number])[facility] ([facility])[address] [place] [address] 56576 Neutrophils (Bld) [#/Vol] 11.31 x10*3/uL High 1.20-7.70 [facility] Comment on above: Result Comment: Perc ent differential counts (%) should be interpreted in the context of the absolute cell counts (cells/uL). Performed By: #### 5 7021-8 ####CALE Roth ([id number])[facility] ([facility])[address] [place] [address] Neutrophils/100 WBC (Bld) 81.3 % Normal 40.0-80.0 [facility] Comment on above: Performed By: #### 5 7021-8 ####CALE Roth ([id number])[facility] ([facility])[address]69 [place] [address] Nucleated RBC/100 WBC (Bld) [Ratio] 0.0 /100 WBCs Normal 0.0-0.0 [facility] Comment on above: Performed By: #### 5 7021-8 ####CALE Roth ([id number])[facility] ([facility])[address]12 [place] [address] Platelets (Bld) [#/Vol] 282 x10*3/uL Normal 150-450 [facility] Comment on above: Performed By: #### 5 7021-8 ####CALE Roth ([id number])[facility] ([facility])[address] [place] [address] 22513 RBC (Bld) [#/Vol] 3.54 x10*6/uL Low 4.00-5.20 [facility] Comment on above: Performed By: #### 5 7021-8 ####CALE Roth ([id number])[facility] ([facility])[address] [place] [address]67[address] WBC (Bld) [#/Vol] 13.9 x10*3/uL High 4.4-11.3 [facility] Comment on above: Performed By: #### 5 7021-8 ####CALE Roth ([id number])[facility] ([facility])[address] [place] [address] 82502 CBC panel Auto (Bld)on 03-25 Erythrocyte distribution width (RBC) [Ratio] 13.9 % Normal 11.5-14.5 [facility] Comment on above: Performed By: #### 5 8410-2 ####CALE Roth ([id number])[facility] ([facility])[address] [place] [address] 44088 Hematocrit (Bld) [Volume fraction] 30.0 % Low 36.0-46.0 [facility] Comment on above: Performed By: #### 5 8410-2 ####CALE Roth ([id number])[facility] ([facility])[address] [place] [address] 01284 Hemoglobin (Bld) [Mass/Vol] 10.6 g/dL Low 12.0-16.0 [facility] Comment on above: Performed By: #### 5 8410-2 ####CALE Roth ([id number])[facility] ([facility])[address] [place] [address] 57953 MCH (RBC) [Entitic mass] 30.4 pg Normal 26.0-34.0 [facility] Comment on above: Performed By: #### 5 8410-2 ####CALE Roth ([id number])[facility] ([facility])[address]45 [place] [address] MCHC (RBC) [Mass/Vol] 35.3 g/dL Normal 32.0-36.0 [facility] Comment on above: Performed By: #### 5 8410-2 ####CALE Roth (05905)[facility] ([facility])[address] [place] [address] MCV (RBC) [Entitic vol] 86 fL Normal 80-100 [facility] Comment on above: Performed By: #### 5 8410-2 ####CALE Roth ([id number])[facility] ([facility])[address]396 [place] [address] Nucleated RBC/100 WBC (Bld) [Ratio] 0.0 /100 WBCs Normal 0.0-0.0 [facility] Comment on above: Performed By: #### 5 8410-2 ####CALE Roth ([id number])[facility] ([facility])[address]67 [place] [address] Platelets (Bld) [#/Vol] 293 x10*3/uL Normal 150-450 [facility] Comment on above: Performed By: #### 5 8410-2 ####CALE Roth ([id number])[facility] ([facility])[address]66 [place] [address] RBC (Bld) [#/Vol] 3.49 x10*6/uL Low 4.00-5.20 [facility] Comment on above: Performed By: #### 5 8410-2 ####CALE CAI L ([id number])[facility] ([facility])[address]32 [place] [address] WBC (Bld) [#/Vol] 13.2 x10*3/uL High 4.4-11.3 [facility] Comment on above: Performed By: #### 5 8410-2 ####CALE Roth ([id number])[facility] ([facility])[address]12 [place] [address] Calcium.ionizedon 03-25-2025 Calcium.ionized (Bld) [Moles/Vol] 1.13 mmol/L Normal 1.1-1.33 [facility] Comment on above: Result Comment: The performance characteristics of ionized calcium testedin heparinized plasma or serum have been validated [facility] where testing is performed.Testing on heparinized plasma or serum is not approved [facility] FDA; however, such approval is not necessary. Performed By: #### 1 994-3 ####CALE Roth ([id number])[facility] ([facility])[address] [place] [address]152 Calcium.ionized (Bld) [Moles/Vol] 1.25 mmol/L Normal 1.1-1.33 [facility] Comment on above: Result Comment: The performance characteristics of ionized calcium testedin heparinized plasma or serum have been validated by [facility] where testing is performed.Testing on heparinized plasma or serum is not approved [facility] FDA; however, such approval is not necessary. Performed By: #### 1 994-3 ####CALE Roth ([id number])[facility] ([facility])[address] [place] [address] ECG 12-LEADon 03-25-2025 ECG 12-LEAD Ventricular Rate 130 Atrial Rate 130 P-R Interval 142 QRS Duration 76 Q-T Interval 292 QTC Calculation(Bazett) 429 P [place] 65 R [place] 95 T [place] -13 QRS Count 22 Q Onset 220 [...] Babin (957) on 03/26/2025 3:19:58 PM Normal [facility] ESR Westergren method (Bld) [Velocity]on 03-25-2025 ESR (Bld) [Velocity] 33 mm/h High 0-20 [facility] Comment on above: Performed By: #### 4 537-7 ####CALE Roth ([id number])[facility] ([facility])[address] [place] [address] Gas and Carbon monoxide and Electrolytes panel (BldA)on 03-25-2025 Anion gap 4 (BldA) [Moles/Vol] 7 mmo/L Low 10-25 [facility] Comment on above: Performed By: #### 9 3685-6 ####CALE Roth ([id number])[facility] ([facility])[address]22 [place] [address] Base excess Calc (Bld) [Moles/Vol] 3.1 mmol/L High -2.0-3.0 [facility] Comment on above: Performed By: #### 9 3685-6 ####CALE Roth ([id number])[facility] ([facility])[address] [place] [address] Calcium.ionized (BldA) [Moles/Vol] 1.15 mmol/L Normal 1.10-1.33 [facility] Comment on above: Performed By: #### 9 3685-6 ####CALE Roth ([id number])[facility] ([facility])[address] [place] [address] Chloride (BldA) [Moles/Vol] 109 mmol/L High 98-107 [facility] Comment on above: Performed By: #### 9 3685-6 ####CALE Roth ([id number])[facility] ([facility])[address] [place] [address] CO2 (Bld) [Partial pressure] 36 mm Hg Low 38-42 [facility] Comment on above: Performed By: #### 9 3685-6 ####CALE Roth ([id number])[facility] ([facility])[address]646 [place] [address] Glucose [Mass/Vol] 117 mg/dL High 74-99 [facility] Comment on above: Performed By: #### 9 4195-6 ####CALE Roth ([id number])[facility] ([facility])[address] [place] [address] HCO3 (Bld) [Moles/Vol] 26.8 mmol/L High 22.0-26.0 [facility] Comment on above: Performed By: #### 9 7145-6 ####CALE Roth ([id number])[facility] ([facility])[address] [place] [address]22 Hematocrit Est (Bld) [Volume fraction] 24.0 % Low 36.0-46.0 [facility] Comment on above: Performed By: #### 9 1885-6 ####CALE Roth ([id number])[facility] ([facility])[address] [place] [address] Hemoglobin (Bld) [Mass/Vol] 7.9 g/dL Low 12.0-16.0 [facility] Comment on above: Performed By: #### 9 7915-6 ####CALE Roth ([id number])[facility] ([facility])[address] [place] [address] 56237 Inhaled oxygen concentration 21 % Normal [facility] Comment on above: Performed By: #### 9 5515-6 ####CALE Roth ([id number])[facility] ([facility])[address] [place] [address] 16535 Lactate (BldA) [Moles/Vol] 0.8 mmol/L Normal 0.4-2.0 [facility] Comment on above: Performed By: #### 9 5835-6 ####CALE Roth ([id number])[facility] ([facility])[address] [place] [address]856 Oxygen (Bld) [Partial pressure] 129 mm Hg High 85-95 [facility] Comment on above: Performed By: #### 9 2070-6 ####CALE Roth ([id number])[facility] ([facility])[address] [place] [address] Oxyhemoglobin (BldA) [Mass fraction] 98.4 % High 94.0-98.0 [facility] Comment on above: Performed By: #### 9 3685-6 ####CALE Roth ([id number])[facility] ([facility])[address]49 [place] [address] pH (Bld) 7.48 [pH] High 7.38-7.42 [facility] Comment on above: Performed By: #### 9 3685-6 ####CALE Roth ([id number])[facility] ([facility])[address]751 [place] [address] Potassium (BldA) [Moles/Vol] 3.3 mmol/L Low 3.5-5.3 [facility] Comment on above: Performed By: #### 9 3685-6 ####CALE Roth ([id number])[facility] ([facility])[address] [place] [address] Sodium (BldA) [Moles/Vol] 139 mmol/L Normal 136-145 [facility] Comment on above: Performed By: #### 9 3685-6 ####CALE Roth ([id number])[facility] ([facility])[address] [place] [address] 758[address] Glucose Test strip manual (B ld) [Mass/Vol]on 03-25-2025 Glucose [Mass/Vol] 112 mg/dL High 74-99 [facility] Comment on above: Performed By: #### 2 341-6 ####CALE Roth ([id number])[facility] ([facility])[address] [place] [address] Glucose [Mass/Vol] 117 mg/dL High 74-99 [facility] Comment on above: Performed By: #### 2 341-6 ####CALE Roth ([id number])[facility] ([facility])[address] [place] [address] 47560 Glucose [Mass/Vol] 112 mg/dL High 74-99 [facility] Comment on above: Performed By: #### 2 341-6 ####CALE Roth ([id number])[facility] ([facility])[address]28 [place] [address] Glucose [Mass/Vol] 93 mg/dL Normal 74-99 [facility] Comment on above: Performed By: #### 2 341-6 ####CALE Roth ([id number])[facility] ([facility])[address] [place] [address] Lactateon 03-25-2025 Lactate [Moles/Vol] 0.6 mmol/L Normal 0.4-2.0 [facility] Comment on above: Order Comment: Venip uncture immediately after or during the administration of Metamizole may lead to falsely low results. Testing should be performed immediately prior to Metamizole dosing. Performed By: #### 2 524-7 ####CALE Roth ([id number])[facility] ([facility])[address] [place] [address] Magnesiumon 03-25-2025 Magnesium [Mass/Vol] 1.87 mg/dL Normal 1.60-2.40 [facility] Comment on above: Performed By: #### 1 9123-9 ####CALE Roth ([id number])[facility] ([facility])[address] [place] [address] Magnesium [Mass/Vol] 2.00 mg/dL Normal 1.60-2.40 [facility] Comment on above: Performed By: #### 1 9123-9 ####CALE Roth ([id number])[facility] ([facility])[address] [place] [address] Renal function 2000 panelon 03-25-2025 Albumin BCP dye [Mass/Vol] 4.0 g/dL Normal 3.4-5.0 [facility] Comment on above: Performed By: #### 2 4362-6 ####CALE Roth ([id number])[facility] ([facility])[address] [place] [address] Anion gap [Moles/Vol] 12 mmol/L Normal 10-20 [facility] Comment on above: Performed By: #### 2 4362-6 ####CALE Roth ([id number])[facility] ([facility])[address] [place] [address] Calcium [Mass/Vol] 9.1 mg/dL Normal 8.6-10.6 [facility] Comment on above: Performed By: #### 2 4362-6 ####CALE Roth ([id number])[facility] ([facility])[id number] [place] [address] Chloride [Moles/Vol] 102 mmol/L Normal 98-107 [facility] Comment on above: Performed By: #### 2 4362-6 ####CALE Roth ([id number])[facility] ([facility])[address] [place] [address] CO2 [Moles/Vol] 26 mmol/L Normal 21-32 [facility] Comment on above: Performed By: #### 2 4362-6 ####CALE Roth ([id number])[facility] ([facility])[address] [place] [address] Creatinine [Mass/Vol] 0.28 mg/dL Low 0.50-1.05 [facility] Comment on above: Performed By: #### 2 4362-6 ####CALE Roth ([id number])[facility] ([facility])[address] [place] [address] Glomerular filtration rate >90 Normal >60 [facility] Comment on above: Result Comment: Calc ulations of estimated GFR are performed using the 2020 CKD-EPI Study Refit equation without the race variable for the IDMS-Traceable creatinine methods.https://jasn.asnjournals.org/content//ASN .4775838263 Performed By: #### 2 4362-6 ####CALE Roth ([id number])[facility] ([facility])[address] [place] [address] Glucose [Mass/Vol] 130 mg/dL High 74-99 [facility] Comment on above: Performed By: #### 2 4362-6 ####CALE Roth ([id number])[facility] ([facility])[address] [place] [address] Phosphate [Mass/Vol] 2.3 mg/dL Low 2.5-4.9 [facility] Comment on above: Performed By: #### 2 4362-6 ####CALE Roth ([id number])[facility] ([facility])[address] [place] [address] Potassium [Moles/Vol] 3.9 mmol/L Normal 3.5-5.3 [facility] Comment on above: Performed By: #### 2 4362-6 ####CALE Roth ([id number])[facility] ([facility])[address] [place] [address] Sodium [Moles/Vol] 136 mmol/L Normal 136-145 [facility] Comment on above: Performed By: #### 2 4362-6 ####CALE Roth ([id number])[facility] ([facility])[address] [place] [address] Urea nitrogen [Mass/Vol] 6 mg/dL Normal 6-23 [facility] Comment on above: Performed By: #### 2 4362-6 ####CALE Roth ([id number])[facility] ([facility])[address] [place] [address] Albumin BCP dye [Mass/Vol] 4.0 g/dL Normal 3.4-5.0 [facility] Comment on above: Performed By: #### 2 4362-6 ####CALE Roth ([id number])[facility] ([facility])[address] [place] [address] Anion gap [Moles/Vol] 14 mmol/L Normal 10-20 [facility] Comment on above: Performed By: #### 2 4362-6 ####CALE RUTLEDGEER L ([id number])[facility] ([facility])[address] [place] [address] Calcium [Mass/Vol] 9.4 mg/dL Normal 8.6-10.6 [facility] Comment on above: Performed By: #### 2 4362-6 ####CALE TOSCANOMOTZER L ([id number])[facility] ([facility])[address] [place] [address] Chloride [Moles/Vol] 100 mmol/L Normal 98-107 [facility] Comment on above: Performed By: #### 2 4362-6 ####CALE TOSCANOMOTZER L (99437)[facility] ([facility])[address] [place] [address] CO2 [Moles/Vol] 26 mmol/L Normal 21-32 [facility] Comment on above: Performed By: #### 2 4362-6 ####CALE CAI L ([id number])[facility] ([facility])[address] [place] [address] Creatinine [Mass/Vol] 0.36 mg/dL Low 0.50-1.05 [facility] Comment on above: Performed By: #### 2 4362-6 ####CALE PARKERTZER L ([id number])[facility] ([facility])[address] [place] [address] Glomerular filtration rate >90 Normal >60 [facility] Comment on above: Result Comment: Calc ulations of estimated GFR are performed using the 2020 CKD-EPI Study Refit equation without the race variable for the IDMS-Traceable creatinine methods.https://jasn.asnjournals.org/content//ASN .2528335971 Performed By: #### 2 4362-6 ####CALE TOSCANOMOTZER L ([id number])[facility] ([facility])[address] [place] [address] Glucose [Mass/Vol] 115 mg/dL High 74-99 [facility] Comment on above: Performed By: #### 2 4362-6 ####CALE Roth ([id number])[facility] ([facility])[address] [place] [address] Phosphate [Mass/Vol] 3.1 mg/dL Normal 2.5-4.9 [facility] Comment on above: Performed By: #### 2 4362-6 ####CALE Roth ([id number])[facility] ([facility])[address] [place] [address] Potassium [Moles/Vol] 3.6 mmol/L Normal 3.5-5.3 [facility] Comment on above: Performed By: #### 2 4362-6 ####CALE Roth ([id number])[facility] ([facility])[address] [place] [address] Sodium [Moles/Vol] 136 mmol/L Normal 136-145 [facility] Comment on above: Performed By: #### 2 4362-6 ####CALE Roth ([id number])[facility] ([facility])[address] [place] [address] Urea nitrogen [Mass/Vol] 8 mg/dL Normal 6-23 [facility] Comment on above: Performed By: #### 2 4362-6 ####CALE Roth ([id number])[facility] ([facility])[address] [place] [address] Thyrotropinon 03-25-2025 TSH Qn 4.56 m[IU]/L High 0.44-3.98 [facility] Comment on above: Order Comment: TSH t esting is performed using different testing methodology at [facility] than at other [facility]. Direct result comparisons should only be made within the same method. Performed By: #### 3 016-3 ####CALE Roth ([id number])[facility] ([facility])[id number] [place] [address] Thyroxine.freeon 03-25-2025 Free T4 [Mass/Vol] 1.51 ng/dL High 0.78-1.48 [facility] Comment on above: Order Comment: Thyro xine Free testing is performed using different testing methodology at [facility] than at [facility]. Direct result comparisons should only be made within the same method. Performed By: #### 3 024-7 ####CALE Roth ([id number])[facility] ([facility])[address] [place] [address] Triiodothyronine.freeon Free T3 [Mass/Vol] 2.8 pg/mL Normal 2.3-4.2 [facility] Comment on above: Performed By: #### 3 051-0 ####CALE Roth ([id number])[facility] ([facility])[address] [place] [address] Troponin I.cardiac panelon 1 Tropinin I.cardiac panel High sensitivity method <3 Normal 0-34 [facility] Comment on above: Order Comment: Less [...] is performed using a differenttesting methodology at [facility] than at [facility]. Direct result comparisons should onlybe made within the same method. Performed By: #### 8 9577-1 ####CALE Roth ([id number])[facility] ([facility])[address] [place] [address] XR ABDOMEN 1 VIEWon 03-25-20 25 XR ABDOMEN 1 VIEW Normal [facility] CBC W Auto Differential pane l (Bld)on 03-24-2025 Basophils (Bld) [#/Vol] 0.04 x10*3/uL Normal 0.00-0.10 [facility] Comment on above: Performed By: #### 5 7021-8 ####CALE Roth ([id number])[facility] ([facility])[address] [place] [address] Basophils/100 WBC (Bld) 0.3 % Normal 0.0-2.0 [facility] Comment on above: Performed By: #### 5 7021-8 ####CALE Roth ([id number])[facility] ([facility])[address] [place] [address] Eosinophils (Bld) [#/Vol] 0.11 x10*3/uL Normal 0.00-0.70 [facility] Comment on above: Performed By: #### 5 7021-8 ####CALE CAI L ([id number])[facility] ([facility])[address] [place] [address] Eosinophils/100 WBC (Bld) 0.7 % Normal 0.0-6.0 [facility] Comment on above: Performed By: #### 5 7021-8 ####CALE Roth ([id number])[facility] ([facility])[address] [place] [address] Erythrocyte distribution width (RBC) [Ratio] 13.8 % Normal 11.5-14.5 [facility] Comment on above: Performed By: #### 5 7021-8 ####CALE Roth ([id number])[facility] ([facility])[address] [place] [address] Hematocrit (Bld) [Volume fraction] 30.7 % Low 36.0-46.0 [facility] Comment on above: Performed By: #### 5 7021-8 ####CALE CAI L ([id number])[facility] ([facility])[address] [place] [address] Hemoglobin (Bld) [Mass/Vol] 10.6 g/dL Low 12.0-16.0 [facility] Comment on above: Performed By: #### 5 7021-8 ####CALE Roth ([id number])[facility] ([facility])[address] [place] [address] Immature granulocytes (Bld) [#/Vol] 0.35 x10*3/uL Normal 0.00-0.70 [facility] Comment on above: Performed By: #### 5 7021-8 ####CALE Roth ([id number])[facility] ([facility])[address] [place] [address] Immature granulocytes/100 WBC (Bld) 2.3 % High 0.0-0.9 [facility] Comment on above: Result Comment: Aleisha ture Granulocyte Count (IG) includes promyelocytes, myelocytes and metamyelocytes but does not include bands. Percent differential counts (%) should be interpreted in the context of the absolute cell counts (cells/UL). Performed By: #### 5 7021-8 ####CALE Roth ([id number])[facility] ([facility])[address] [place] [address] Lymphocytes (Bld) [#/Vol] 2.10 x10*3/uL Normal 1.20-4.80 [facility] Comment on above: Performed By: #### 5 7021-8 ####CALE Roth ([id number])[facility] ([facility])[address]683 [place] [address] Lymphocytes/100 WBC (Bld) 13.7 % Normal 13.0-44.0 [facility] Comment on above: Performed By: #### 5 7021-8 ####CALE Roth ([id number])[facility] ([facility])[address] [place] [address] MCH (RBC) [Entitic mass] 30.7 pg Normal 26.0-34.0 [facility] Comment on above: Performed By: #### 5 7021-8 ####CALE Roth ([id number])[facility] ([facility])[address]196 [place] [address] MCHC (RBC) [Mass/Vol] 34.5 g/dL Normal 32.0-36.0 [facility] Comment on above: Performed By: #### 5 7021-8 ####CALE CAI L ([id number])[facility] ([facility])[address] [place] [address] MCV (RBC) [Entitic vol] 89 fL Normal 80-100 [facility] Comment on above: Performed By: #### 5 7021-8 ####CALE Roth ([id number])[facility] ([facility])[address] [place] [address] Monocytes (Bld) [#/Vol] 0.98 x10*3/uL Normal 0.10-1.00 [facility] Comment on above: Performed By: #### 5 7021-8 ####CALE CAI L (76051)[facility] ([facility])[address]48 [place] [address] Monocytes/100 WBC (Bld) 6.4 % Normal 2.0-10.0 [facility] Comment on above: Performed By: #### 5 7021-8 ####CALE TOSCANOMOISAURA L ([id number])[facility] ([facility])[address] [place] [address] Neutrophils (Bld) [#/Vol] 11.77 x10*3/uL High 1.20-7.70 [facility] Comment on above: Result Comment: Perc ent differential counts (%) should be interpreted in the context of the absolute cell counts (cells/uL). Performed By: #### 5 7021-8 ####CALE TOSCANOMOTZGONZALEZ L ([id number])[facility] ([facility])[address] [place] [address] Neutrophils/100 WBC (Bld) 76.6 % Normal 40.0-80.0 [facility] Comment on above: Performed By: #### 5 7021-8 ####CALE Roth ([id number])[facility] ([facility])[address] [place] [address] Nucleated RBC/100 WBC (Bld) [Ratio] 0.0 /100 WBCs Normal 0.0-0.0 [facility] Comment on above: Performed By: #### 5 7021-8 ####CALE Roth ([id number])[facility] ([facility])[address] [place] [address] Platelets (Bld) [#/Vol] 405 x10*3/uL Normal 150-450 [facility] Comment on above: Performed By: #### 5 7021-8 ####CALE Roth ([id number])[facility] ([facility])[address] [place] [address] RBC (Bld) [#/Vol] 3.45 x10*6/uL Low 4.00-5.20 [facility] Comment on above: Performed By: #### 5 7021-8 ####CALE Roth ([id number])[facility] ([facility])[address] [place] [address] WBC (Bld) [#/Vol] 15.4 x10*3/uL High 4.4-11.3 [facility] Comment on above: Performed By: #### 5 7021-8 ####CALE Roth ([id number])[facility] ([facility])[address] [place] [address] HEAD WO IV CONTRASTon CT HEAD WO IV CONTRAST Normal [facility] Calcium.ionizedon 03-24-2025 Calcium.ionized (Bld) [Moles/Vol] 1.20 mmol/L Normal 1.1-1.33 [facility] Comment on above: Result Comment: The performance characteristics of ionized calcium testedin heparinized plasma or serum have been validated [facility] site where testing is performed.Testing on heparinized plasma or serum is not approved bythe FDA; however, such approval is not necessary. Performed By: #### 1 994-3 ####CALE Roth ([id number])[facility] ([facility])[address] [place] [address] Glucose Test strip manual (B ld) [Mass/Vol]on 03-24-2025 Glucose [Mass/Vol] 139 mg/dL High [address] [place] [address] Comment on above: Performed By: #### 2 341-6 ####CALE Roth ([id number])[facility] ([facility])[address] [place] [address] Glucose [Mass/Vol] 130 mg/dL High [address] [place] [address] Comment on above: Performed By: #### 2 341-6 ####CALE Roth ([id number])[facility] ([facility])[address] [place] [address] Glucose [Mass/Vol] 104 mg/dL High [address] [place] [address] Comment on above: Performed By: #### 2 341-6 ####CALE Roth ([id number])[facility] ([facility])[address] [place] [address] Glucose [Mass/Vol] 134 mg/dL High [address] [place] [address] Comment on above: Performed By: #### 2 341-6 ####CALE Roth ([id number])[facility] ([facility])[address]171 [place] [address] Magnesiumon 03-24-2025 Magnesium [Mass/Vol] 1.84 mg/dL Normal 1.60-2.40 [facility] Comment on above: Performed By: #### 1 9123-9 ####CALE Roth ([id number])[facility] ([facility])[address]70 [place] [address] Procalcitoninon 03-24-2025 Procalcitonin [Mass/Vol] 0.03 ng/mL Normal <=0.07 [facility] Comment on above: Order Comment: Proca [...] Performed By: #### 3 3959-8 ####CALE Roth ([id number])[facility] ([facility])[address] [place] [address] Renal function 2000 panelon 03-24-2025 Albumin BCP dye [Mass/Vol] 4.0 g/dL Normal 3.4-5.0 [facility] Comment on above: Performed By: #### 2 4362-6 ####CALE Roth (19593)[facility] ([facility])[address] [place] [address] Anion gap [Moles/Vol] 14 mmol/L Normal 10-20 [facility] Comment on above: Performed By: #### 2 4362-6 ####CALE Roth ([id number])[facility] ([facility])[address]842 [place] [address] Calcium [Mass/Vol] 9.1 mg/dL Normal 8.6-10.6 [facility] Comment on above: Performed By: #### 2 4362-6 ####CALE Roth ([id number])[facility] ([facility])[address] [place] [address] Chloride [Moles/Vol] 104 mmol/L Normal 98-107 [facility] Comment on above: Performed By: #### 2 4362-6 ####CALE CAI L ([id number])[facility] ([facility])[address]78 [place] [address] CO2 [Moles/Vol] 26 mmol/L Normal 21-32 [facility] Comment on above: Performed By: #### 2 4362-6 ####CALE Roth ([id number])[facility] ([facility])[address]109 [place] [address] Creatinine [Mass/Vol] 0.26 mg/dL Low 0.50-1.05 [facility] Comment on above: Performed By: #### 2 4362-6 ####CALE Roth ([id number])[facility] ([facility])[address]754 [place] [address] Glomerular filtration rate >90 Normal >60 [facility] Comment on above: Result Comment: Calc ulations of estimated GFR are performed using the 2020 CKD-EPI Study Refit equation without the race variable for the IDMS-Traceable creatinine methods.https://jasn.asnjournals.org/content//ASN .5773822146 Performed By: #### 2 4362-6 ####CALE Roth ([id number])[facility] ([facility])[address]86 [place] [address] Glucose [Mass/Vol] 109 mg/dL High 74-99 [facility] Comment on above: Performed By: #### 2 4362-6 ####CALE CAI L ([id number])[facility] ([facility])[address]017 [place] [address] Phosphate [Mass/Vol] 2.3 mg/dL Low 2.5-4.9 [facility] Comment on above: Performed By: #### 2 4362-6 ####CALE Roth ([id number])[facility] ([facility])[address]007 [place] [address] Potassium [Moles/Vol] 3.5 mmol/L Normal 3.5-5.3 [facility] Comment on above: Performed By: #### 2 4362-6 ####CALE Roth ([id number])[facility] ([facility])[address]482 [place] [address] Sodium [Moles/Vol] 140 mmol/L Normal 136-145 [facility] Comment on above: Performed By: #### 2 4362-6 ####CALE Roth ([id number])[facility] ([facility])[address]99 [place] [address] Urea nitrogen [Mass/Vol] 7 mg/dL Normal 6-23 [facility] Comment on above: Performed By: #### 2 4362-6 ####CALE Roth ([id number])[facility] ([facility])[address] [place] [address] Albumin BCP dye [Mass/Vol] 3.9 g/dL Normal 3.4-5.0 [facility] Comment on above: Performed By: #### 2 4362-6 ####CALE Roth ([id number])[facility] ([facility])[address] [place] [address] Anion gap [Moles/Vol] 10 mmol/L Normal 10-20 [facility] Comment on above: Performed By: #### 2 4362-6 ####CALE Roth ([id number])[facility] ([facility])[address]161 [place] [address] Calcium [Mass/Vol] 9.2 mg/dL Normal 8.6-10.6 [facility] Comment on above: Performed By: #### 2 4362-6 ####CALE Roth ([id number])[facility] ([facility])[address] [place] [address] Chloride [Moles/Vol] 100 mmol/L Normal 98-107 [facility] Comment on above: Performed By: #### 2 4362-6 ####CALE Roth ([id number])[facility] ([facility])[address]26 [place] [address] CO2 [Moles/Vol] 29 mmol/L Normal 21-32 [facility] Comment on above: Performed By: #### 2 4362-6 ####CALE Roth ([id number])[facility] ([facility])[address]28 [place] [address] Creatinine [Mass/Vol] 0.32 mg/dL Low 0.50-1.05 [facility] Comment on above: Performed By: #### 2 4362-6 ####CALE Roth ([id number])[facility] ([facility])[address] [place] [address] Glomerular filtration rate >90 Normal >60 [facility] Comment on above: Result Comment: Calc ulations of estimated GFR are performed using the 2020 CKD-EPI Study Refit equation without the race variable for the IDMS-Traceable creatinine methods.https://jasn.asnjournals.org/content/early/ASN .4480978904 Performed By: #### 2 4362-6 ####CALE Roth ([id number])[facility] ([facility])[address] [place] [address] Glucose [Mass/Vol] 121 mg/dL High 74-99 [facility] Comment on above: Performed By: #### 2 4362-6 ####CALE Roth ([id number])[facility] ([facility])[address]27 [place] [address] Phosphate [Mass/Vol] 2.4 mg/dL Low 2.5-4.9 [facility] Comment on above: Performed By: #### 2 4362-6 ####CALE Roth ([id number])[facility] ([facility])[address]19 [place] [address] Potassium [Moles/Vol] 3.1 mmol/L Low 3.5-5.3 [facility] Comment on above: Performed By: #### 2 4362-6 ####CALE Roth ([id number])[facility] ([facility])[address]54 [place] [address] Sodium [Moles/Vol] 136 mmol/L Normal 136-145 [facility] Comment on above: Performed By: #### 2 4362-6 ####CALE Roth ([id number])[facility] ([facility])[address]246 [place] [address] Urea nitrogen [Mass/Vol] 12 mg/dL Normal 6-23 [facility] Comment on above: Performed By: #### 2 4362-6 ####CALE Roth ([id number])[facility] ([facility])[id number] [place] [address] XR ABDOMEN 1 VIEWon 03-24-20 XR ABDOMEN 1 VIEW Normal [facility] CBC W Auto Differential pane l (Bld)on 03-23-2025 Basophils (Bld) [#/Vol] 0.04 x10*3/uL Normal 0.00-0.10 [facility] Comment on above: Performed By: #### 5 7021-8 ####CALE Roth ([id number])[facility] ([facility])[address] [place] [address] Basophils/100 WBC (Bld) 0.3 % Normal 0.0-2.0 [facility] Comment on above: Performed By: #### 5 7021-8 ####CALE Roth ([id number])[facility] ([facility])[id number] [place] [id number] Eosinophils (Bld) [#/Vol] 0.00 x10*3/uL Normal 0.00-0.70 [facility] Comment on above: Performed By: #### 5 7021-8 ####CALE Roth ([id number])[facility] ([facility])[address] [place] [address] Eosinophils/100 WBC (Bld) 0.0 % Normal 0.0-6.0 [facility] Comment on above: Performed By: #### 5 7021-8 ####CALE Roth ([id number])[facility] ([facility])[address] [place] [address] Erythrocyte distribution width (RBC) [Ratio] 13.4 % Normal 11.5-14.5 [facility] Comment on above: Performed By: #### 5 7021-8 ####CALE Roth ([id number])[facility] ([facility])[id number] [place] [address] Hematocrit (Bld) [Volume fraction] 32.6 % Low 36.0-46.0 [facility] Comment on above: Performed By: #### 5 7021-8 ####CALE Roth ([id number])[facility] ([facility])[address] [place] [address] Hemoglobin (Bld) [Mass/Vol] 11.2 g/dL Low 12.0-16.0 [facility] Comment on above: Performed By: #### 5 7021-8 ####CALE Roth ([id number])[facility] ([facility])[address] [place] [address] Immature granulocytes (Bld) [#/Vol] 0.63 x10*3/uL Normal 0.00-0.70 [facility] Comment on above: Performed By: #### 5 7021-8 ####CALE Roth ([id number])[facility] ([facility])[id number] [place] [address] Immature granulocytes/100 WBC (Bld) 4.5 % High 0.0-0.9 [facility] Comment on above: Result Comment: Aleisha ture Granulocyte Count (IG) includes promyelocytes, myelocytes and metamyelocytes but does not include bands. Percent differential counts (%) should be interpreted in the context of the absolute cell counts (cells/UL). Performed By: #### 5 7021-8 ####CALE Roth ([id number])[facility] ([facility])[address] [place] [address] Lymphocytes (Bld) [#/Vol] 1.44 x10*3/uL Normal 1.20-4.80 [facility] Comment on above: Performed By: #### 5 7021-8 ####CALE Roth ([id number])[facility] ([facility])[address] [place] [address] Lymphocytes/100 WBC (Bld) 10.3 % Normal 13.0-44.0 [facility] Comment on above: Performed By: #### 5 7021-8 ####CALE Rtoh ([id number])[facility] ([facility])[address] [place] [address] MCH (RBC) [Entitic mass] 30.4 pg Normal 26.0-34.0 [facility] Comment on above: Performed By: #### 5 7021-8 ####CALE Roth ([id number])[facility] ([facility])[address] [place] [address] MCHC (RBC) [Mass/Vol] 34.4 g/dL Normal 32.0-36.0 [facility] Comment on above: Performed By: #### 5 7021-8 ####CALE Roth ([id number])[facility] ([facility])[address] [place] [address] MCV (RBC) [Entitic vol] 88 fL Normal 80-100 [facility] Comment on above: Performed By: #### 5 7021-8 ####CALE Roth ([id number])[facility] ([facility])[address] [place] [address] Monocytes (Bld) [#/Vol] 0.86 x10*3/uL Normal 0.10-1.00 [facility] Comment on above: Performed By: #### 5 7021-8 ####CALE Roth ([id number])[facility] ([facility])[address] [place] [address] Monocytes/100 WBC (Bld) 6.2 % Normal 2.0-10.0 [facility] Comment on above: Performed By: #### 5 7021-8 ####CALE Roth ([id number])[facility] ([facility])[address] [place] [address] Neutrophils (Bld) [#/Vol] 11.00 x10*3/uL High 1.20-7.70 [facility] Comment on above: Result Comment: Perc ent differential counts (%) should be interpreted in the context of the absolute cell counts (cells/uL). Performed By: #### 5 7021-8 ####CALE Roth ([id number])[facility] ([facility])[address] [place] [address] Neutrophils/100 WBC (Bld) 78.7 % Normal 40.0-80.0 [facility] Comment on above: Performed By: #### 5 7021-8 ####CALE Roth ([id number])[facility] ([facility])[address] [place] [address] Nucleated RBC/100 WBC (Bld) [Ratio] 0.0 /100 WBCs Normal 0.0-0.0 [facility] Comment on above: Performed By: #### 5 7021-8 ####CALE Roth ([id number])[facility] ([facility])[address] [place] [address] Platelets (Bld) [#/Vol] 388 x10*3/uL Normal 150-450 [facility] Comment on above: Performed By: #### 5 7021-8 ####CALE Roth ([id number])[facility] ([facility])[address]644 [place] [address] RBC (Bld) [#/Vol] 3.69 x10*6/uL Low 4.00-5.20 [facility] Comment on above: Performed By: #### 5 7021-8 ####CALE Roth ([id number])[facility] ([facility])[address] [place] [address] WBC (Bld) [#/Vol] 14.0 x10*3/uL High 4.4-11.3 [facility] Comment on above: Performed By: #### 5 7021-8 ####CALE Roth ([id number])[facility] ([facility])[address] [place] [address] [address] HEAD WO IV CONTRASTon CT HEAD WO IV CONTRAST Normal [facility] Calcium.ionizedon 03-23-2025 Calcium.ionized (Bld) [Moles/Vol] 1.21 mmol/L Normal 1.1-1.33 [facility] Comment on above: Result Comment: The performance characteristics of ionized calcium testedin heparinized plasma or serum have been validated by [facility] where testing is performed.Testing on heparinized plasma or serum is not approved bythe FDA; however, such approval is not necessary. Performed By: #### 1 994-3 ####CALE Roth ([id number])[facility] ([facility])[address] [place] [address] Glucose Test strip manual (B ld) [Mass/Vol]on 03-23-2025 Glucose [Mass/Vol] 112 mg/dL High 74-99 [facility] Comment on above: Performed By: #### 2 341-6 ####CALE Roth ([id number])[facility] ([facility])[address] [place] [address] Glucose [Mass/Vol] 99 mg/dL Normal 74-99 [facility] Comment on above: Performed By: #### 2 341-6 ####CALE Roth ([id number])[facility] ([facility])[address] [place] [address] Glucose [Mass/Vol] 101 mg/dL High 74-99 [facility] Comment on above: Performed By: #### 2 341-6 ####CALE Roth ([id number])[facility] ([facility])[address] [place] [address] Glucose [Mass/Vol] 110 mg/dL High 74-99 [facility] Comment on above: Performed By: #### 2 341-6 ####CALE Roth ([id number])[facility] ([facility])[address] [place] [address] Glucose [Mass/Vol] 105 mg/dL High 74-99 [facility] Comment on above: Performed By: #### 2 341-6 ####CALE Roth ([id number])[facility] ([facility])[address] [place] [address] Magnesiumon 03-23-2025 Magnesium [Mass/Vol] 1.86 mg/dL Normal 1.60-2.40 [facility] Comment on above: Performed By: #### 1 9123-9 ####CALE Roth ([id number])[facility] ([facility])[address] [place] [address] Renal function 2000 panelon 03-23-2025 Albumin BCP dye [Mass/Vol] 4.0 g/dL Normal 3.4-5.0 [facility] Comment on above: Performed By: #### 2 4362-6 ####CALE Roth ([id number])[facility] ([facility])[address] [place] [address] Anion gap [Moles/Vol] 14 mmol/L Normal 10-20 [facility] Comment on above: Performed By: #### 2 4362-6 ####CALE Roth ([id number])[facility] ([facility])[address]012 [place] [address] Calcium [Mass/Vol] 9.5 mg/dL Normal 8.6-10.6 [facility] Comment on above: Performed By: #### 2 4362-6 ####CALE Roth ([id number])[facility] ([facility])[address]52 [place] [address] Chloride [Moles/Vol] 99 mmol/L Normal 98-107 [facility] Comment on above: Performed By: #### 2 4362-6 ####CALE Roth ([id number])[facility] ([facility])[address]24 [place] [address] CO2 [Moles/Vol] 27 mmol/L Normal 21-32 [facility] Comment on above: Performed By: #### 2 4362-6 ####CALE Roth ([id number])[facility] ([facility])[address]165 [place] [address] Creatinine [Mass/Vol] 0.39 mg/dL Low 0.50-1.05 [facility] Comment on above: Performed By: #### 2 4362-6 ####CALE Roth ([id number])[facility] ([facility])[address] [place] [address] Glomerular filtration rate >90 Normal >60 [facility] Comment on above: Result Comment: Calc ulations of estimated GFR are performed using the 2020 CKD-EPI Study Refit equation without the race variable for the IDMS-Traceable creatinine methods.https://jasn.asnjournals.org/content/early/ASN .0562478272 Performed By: #### 2 4362-6 ####CALE Roth ([id number])[facility] ([facility])[address] [place] [address] Glucose [Mass/Vol] 132 mg/dL High 74-99 [facility] Comment on above: Performed By: #### 2 4362-6 ####CALE Roth ([id number])[facility] ([facility])[address] [place] [address] Phosphate [Mass/Vol] 3.7 mg/dL Normal 2.5-4.9 [facility] Comment on above: Performed By: #### 2 4362-6 ####CALE Roth ([id number])[facility] ([facility])[address]68 [place] [address] Potassium [Moles/Vol] 4.1 mmol/L Normal 3.5-5.3 [facility] Comment on above: Performed By: #### 2 4362-6 ####CALE Roth ([id number])[facility] ([facility])[address] [place] [address] Sodium [Moles/Vol] 136 mmol/L Normal 136-145 [facility] Comment on above: Performed By: #### 2 4362-6 ####CALE Roth ([id number])[facility] ([facility])[address] [place] [address] Urea nitrogen [Mass/Vol] 15 mg/dL Normal 6-23 [facility] Comment on above: Performed By: #### 2 4362-6 ####CALE Roth ([id number])[facility] ([facility])[address] [place] [address] CBC W Auto Differential pane l (Bld)on 03-22-2025 Basophils (Bld) [#/Vol] 0.04 x10*3/uL Normal 0.00-0.10 [facility] Comment on above: Performed By: #### 5 7021-8 ####CALE Roth ([id number])[facility] ([facility])[address] [place] [address] Basophils/100 WBC (Bld) 0.5 % Normal 0.0-2.0 [facility] Comment on above: Performed By: #### 5 7021-8 ####CALE Roth ([id number])[facility] ([facility])[address] [place] [address] Eosinophils (Bld) [#/Vol] 0.01 x10*3/uL Normal 0.00-0.70 [facility] Comment on above: Performed By: #### 5 7021-8 ####CALE Roth ([id number])[facility] ([facility])[address]691 [place] [address] Eosinophils/100 WBC (Bld) 0.1 % Normal 0.0-6.0 [facility] Comment on above: Performed By: #### 5 7021-8 ####CALE Roth ([id number])[facility] ([facility])[address]951 [place] [address] Erythrocyte distribution width (RBC) [Ratio] 13.2 % Normal 11.5-14.5 [facility] Comment on above: Performed By: #### 5 7021-8 ####CALE Roth ([id number])[facility] ([facility])[address] [place] [address] Hematocrit (Bld) [Volume fraction] 34.5 % Low 36.0-46.0 [facility] Comment on above: Performed By: #### 5 7021-8 ####CALE Roth ([id number])[facility] ([facility])[address] [place] [address] Hemoglobin (Bld) [Mass/Vol] 11.8 g/dL Low 12.0-16.0 [facility] Comment on above: Performed By: #### 5 7021-8 ####CALE Roth ([id number])[facility] ([facility])[address] [place] [address] Immature granulocytes (Bld) [#/Vol] 0.39 x10*3/uL Normal 0.00-0.70 [facility] Comment on above: Performed By: #### 5 7021-8 ####CALE Roth ([id number])[facility] ([facility])[address]111 [place] [address] Immature granulocytes/100 WBC (Bld) 4.8 % High 0.0-0.9 [facility] Comment on above: Result Comment: Aleisha ture Granulocyte Count (IG) includes promyelocytes, myelocytes and metamyelocytes but does not include bands. Percent differential counts (%) should be interpreted in the context of the absolute cell counts (cells/UL). Performed By: #### 5 7021-8 ####CALE Roth ([id number])[facility] ([facility])[address]286 [place] [address] Lymphocytes (Bld) [#/Vol] 1.25 x10*3/uL Normal 1.20-4.80 [facility] Comment on above: Performed By: #### 5 7021-8 ####CALE Roth ([id number])[facility] ([facility])[address] [place] [address] Lymphocytes/100 WBC (Bld) 15.4 % Normal 13.0-44.0 [facility] Comment on above: Performed By: #### 5 7021-8 ####CALE Roth ([id number])[facility] ([facility])[address] [place] [address] 23167 MCH (RBC) [Entitic mass] 30.2 pg Normal 26.0-34.0 [facility] Comment on above: Performed By: #### 5 7021-8 ####CALE Roth ([id number])[facility] ([facility])[address]294 [place] [address] MCHC (RBC) [Mass/Vol] 34.2 g/dL Normal 32.0-36.0 [facility] Comment on above: Performed By: #### 5 7021-8 ####CALE Roth ([id number])[facility] ([facility])[address]84 [place] [address] MCV (RBC) [Entitic vol] 88 fL Normal 80-100 [facility] Comment on above: Performed By: #### 5 7021-8 ####CALE Roth ([id number])[facility] ([facility])[address]01 [place] [address] Monocytes (Bld) [#/Vol] 0.50 x10*3/uL Normal 0.10-1.00 [facility] Comment on above: Performed By: #### 5 7021-8 ####CALE Roth ([id number])[facility] ([facility])87698 [place] [address] Monocytes/100 WBC (Bld) 6.2 % Normal 2.0-10.0 [facility] Comment on above: Performed By: #### 5 7021-8 ####CALE Roth ([id number])[facility] ([facility])[address]18 [place] [address] Neutrophils (Bld) [#/Vol] 5.92 x10*3/uL Normal 1.20-7.70 [facility] Comment on above: Result Comment: Perc ent differential counts (%) should be interpreted in the context of the absolute cell counts (cells/uL). Performed By: #### 5 7021-8 ####CALE Roth ([id number])[facility] ([facility])[address]93 [place] [address] Neutrophils/100 WBC (Bld) 73.0 % Normal 40.0-80.0 [facility] Comment on above: Performed By: #### 5 7021-8 ####CALE Roth (54911)[facility] ([facility])[address]252 [place] [address] Nucleated RBC/100 WBC (Bld) [Ratio] 0.0 /100 WBCs Normal 0.0-0.0 [facility] Comment on above: Performed By: #### 5 7021-8 ####CALE Roth ([id number])[facility] ([facility])[address]253 [place] [address] Platelets (Bld) [#/Vol] 407 x10*3/uL Normal 150-450 [facility] Comment on above: Performed By: #### 5 7021-8 ####CALE Roth ([id number])[facility] ([facility])[address]34 [place] [address] RBC (Bld) [#/Vol] 3.91 x10*6/uL Low 4.00-5.20 [facility] Comment on above: Performed By: #### 5 7021-8 ####CALE Roth ([id number])[facility] ([facility])[address]19 [place] [address] WBC (Bld) [#/Vol] 8.1 x10*3/uL Normal 4.4-11.3 [facility] Comment on above: Performed By: #### 5 7021-8 ####CALE Roth ([id number])[facility] ([facility])[address] [place] [address] CT HEAD WITHOUT CONTRAST VOL UMETRIC SURGICAL PLANNINGon 03-22-2025 CT HEAD WITHOUT CONTRAST VOLUMETRIC SURGICAL PLANNING Normal [facility] CT HEAD WO IV CONTRASTon CT HEAD WO IV CONTRAST Normal [facility] Calcium.ionizedon 03-22-2025 Calcium.ionized (Bld) [Moles/Vol] 1.20 mmol/L Normal 1.1-1.33 [facility] Comment on above: Result Comment: The performance characteristics of ionized calcium testedin heparinized plasma or serum have been validated by [facility] where [facility] is performed.Testing on heparinized plasma or serum is not approved bythe FDA; however, such approval is not necessary. Performed By: #### 1 994-3 ####CALE Roth ([id number])[facility] ([facility])[id number] [place] [address] Gas and Carbon monoxide and Electrolytes panel (BldA)on 03-22-2025 Anion gap 4 (BldA) [Moles/Vol] 8 mmo/L Low 10-25 [facility] Comment on above: Performed By: #### 9 3685-6 ####CALE Roth ([id number])[facility] ([facility])[address]1800 [place] [address] Base excess Calc (Bld) [Moles/Vol] 3.5 mmol/L High -2.0-3.0 [facility] Comment on above: Performed By: #### 9 3685-6 ####CALE Roth ([id number])[facility] ([facility])[address]55 [place] [address] Calcium.ionized (BldA) [Moles/Vol] 1.23 mmol/L Normal 1.10-1.33 [facility] Comment on above: Performed By: #### 9 3685-6 ####CALE Roth ([id number])[facility] ([facility])[address] [place] [address]1568 Chloride (BldA) [Moles/Vol] 104 mmol/L Normal 98-107 [facility] Comment on above: Performed By: #### 9 3685-6 ####CALE Roth ([id number])[facility] ([facility])[address] [place] [address] CO2 (Bld) [Partial pressure] 33 mm Hg Low 38-42 [facility] Comment on above: Performed By: #### 9 3685-6 ####CALE Roth ([id number])[facility] ([facility])[address] [place] [address]73 Glucose [Mass/Vol] 128 mg/dL High 74-99 [facility] Comment on above: Performed By: #### 9 6325-6 ####CALE Roth ([id number])[facility] ([facility])[id number] [place] [address] 33681 HCO3 (Bld) [Moles/Vol] 26.3 mmol/L High 22.0-26.0 [facility] Comment on above: Performed By: #### 9 3685-6 ####CALE Roth ([id number])[facility] ([facility])[id number] [place] [address]105 Hematocrit Est (Bld) [Volume fraction] 34.0 % Low 36.0-46.0 [facility] Comment on above: Performed By: #### 9 3685-6 ####CALE Roth ([id number])[facility] ([facility])[address] [place] [address] 76780 Hemoglobin (Bld) [Mass/Vol] 11.2 g/dL Low 12.0-16.0 [facility] Comment on above: Performed By: #### 9 3685-6 ####CALE Roth ([id number])[facility] ([facility])[address] [place] [address] Inhaled oxygen concentration 50 % Normal [facility] Comment on above: Performed By: #### 9 3685-6 ####CALE Roth ([id number])[facility] ([facility])[address]89 [place] [address] Lactate (BldA) [Moles/Vol] 0.6 mmol/L Normal 0.4-2.0 [facility] Comment on above: Performed By: #### 9 3685-6 ####CALE Roth ([id number])[facility] ([facility])[id number] [place] [address] 12217 Oxygen (Bld) [Partial pressure] 266 mm Hg High 85-95 [facility] Comment on above: Performed By: #### 9 3685-6 ####CALE Roth ([id number])[facility] ([facility])[address]102 [place] [address] Oxyhemoglobin (BldA) [Mass fraction] 97.6 % Normal 94.0-98.0 [facility] Comment on above: Performed By: #### 9 3685-6 ####CALE Roth ([id number])[facility] ([facility])[address]704 [place] [address] pH (Bld) 7.51 [pH] High 7.38-7.42 [facility] Comment on above: Performed By: #### 9 3685-6 ####CALE Roth (54305)[facility] ([facility])[id number] [place] [address] 72345 Potassium (BldA) [Moles/Vol] 3.7 mmol/L Normal 3.5-5.3 [facility] Comment on above: Performed By: #### 9 7765-6 ####CALE Roth ([id number])[facility] ([facility])[address]65 [place] [address] Sodium (BldA) [Moles/Vol] 135 mmol/L Low 136-145 [facility] Comment on above: Performed By: #### 9 3685-6 ####CALE Roth ([id number])[facility] ([facility])[address] [place] [address] Glucose Test strip manual (B ld) [Mass/Vol]on 03-22-2025 Glucose [Mass/Vol] 133 mg/dL High 74-99 [facility] Comment on above: Performed By: #### 2 341-6 ####CALE Roth ([id number])[facility] ([facility])[id number] [place] [id number] Glucose [Mass/Vol] 119 mg/dL High -[address] [place] [address] Comment on above: Performed By: #### 2 341-6 ####CALE Roth ([id number])[facility] ([facility])[id number] [place] [id number] Glucose [Mass/Vol] 119 mg/dL High 7499 [facility] Comment on above: Performed By: #### 2 341-6 ####CALE Roth ([id number])[facility] [facility])[id number] [place] [address] Magnesiumon 03-22-2025 Magnesium [Mass/Vol] 2.11 mg/dL Normal 1.60-2.40 [facility] Comment on above: Performed By: #### 1 9123-9 ####CALE Roth ([id number])[facility] ([facility])[address] [place] [address] Renal function 2000 panelon 03-22-2025 Albumin BCP dye [Mass/Vol] 4.1 g/dL Normal 3.4-5.0 [facility] Comment on above: Performed By: #### 2 4362-6 ####CALE Roth ([id number])[facility] ([facility])[address] [place] [address] Anion gap [Moles/Vol] 12 mmol/L Normal 10-20 [facility] Comment on above: Performed By: #### 2 4362-6 ####CALE Roth ([id number])[facility] ([facility])[address] [place] [address] Calcium [Mass/Vol] 9.5 mg/dL Normal 8.6-10.6 [facility] Comment on above: Performed By: #### 2 4362-6 ####CALE Roth ([id number])[facility] ([facility])[address] [place] [address] Chloride [Moles/Vol] 101 mmol/L Normal 98-107 [facility] Comment on above: Performed By: #### 2 4362-6 ####CALE Roth ([id number])[facility] ([facility])[address] [place] [address] CO2 [Moles/Vol] 28 mmol/L Normal 21-32 [facility] Comment on above: Performed By: #### 2 4362-6 ####CALE Roth ([id number])[facility] ([facility])[address] [place] [address] Creatinine [Mass/Vol] 0.31 mg/dL Low 0.50-1.05 [facility] Comment on above: Performed By: #### 2 4362-6 ####CALE Roth ([id number])[facility] ([facility])[address] [place] [address] Glomerular filtration rate >90 Normal >60 [facility] Comment on above: Result Comment: Calc ulations of estimated GFR are performed using the 2020 CKD-EPI Study Refit equation without the race variable for the IDMS-Traceable creatinine methods.https://jasn.asnjournals.org/content//ASN .5481732276 Performed By: #### 2 4362-6 ####CALE Roth ([id number])[facility] ([facility])[address] [place] [address] Glucose [Mass/Vol] 126 mg/dL High 74-99 [facility] Comment on above: Performed By: #### 2 4362-6 ####CALE Roth ([id number])[facility] ([facility])[address] [place] [address] Phosphate [Mass/Vol] 2.3 mg/dL Low 2.5-4.9 [facility] Comment on above: Performed By: #### 2 4362-6 ####CALE Roth ([id number])[facility] ([facility])[address] [place] [address] Potassium [Moles/Vol] 3.8 mmol/L Normal 3.5-5.3 [facility] Comment on above: Performed By: #### 2 4362-6 ####CALE Roth ([id number])[facility] ([facility])[address] [place] [address] Sodium [Moles/Vol] 137 mmol/L Normal 136-145 [facility] Comment on above: Performed By: #### 2 4362-6 ####CALE Roth ([id number])[facility] ([facility])[address] [place] [address] Urea nitrogen [Mass/Vol] 13 mg/dL Normal 6-23 [facility] Comment on above: Performed By: #### 2 4362-6 ####CALE Roth ([id number])[facility] ([facility])[address] [place] [address] Albumin BCP dye [Mass/Vol] 4.2 g/dL Normal 3.4-5.0 [facility] Comment on above: Performed By: #### 2 4362-6 ####CALE Roth ([id number])[facility] ([facility])[address] [place] [address] Anion gap [Moles/Vol] 15 mmol/L Normal 10-20 [facility] Comment on above: Performed By: #### 2 4362-6 ####CALE CAI L ([id number])[facility] ([facility])[address] [place] [address] Calcium [Mass/Vol] 9.6 mg/dL Normal 8.6-10.6 [facility] Comment on above: Performed By: #### 2 4362-6 ####CALE CAI L ([id number])[facility] ([facility])[address] [place] [address] Chloride [Moles/Vol] 99 mmol/L Normal 98-107 [facility] Comment on above: Performed By: #### 2 4362-6 ####CALE CAI L ([id number])[facility] ([facility])[address] [place] [address] CO2 [Moles/Vol] 24 mmol/L Normal 21-32 [facility] Comment on above: Performed By: #### 2 4362-6 ####CALE CAI L ([id number])[facility] ([facility])[address] [place] [address] Creatinine [Mass/Vol] 0.38 mg/dL Low 0.50-1.05 [facility] Comment on above: Performed By: #### 2 4362-6 ####CALE CAI L ([id number])[facility] ([facility])[address] [place] [address] Glomerular filtration rate >90 Normal >60 [facility] Comment on above: Result Comment: Calc ulations of estimated GFR are performed using the 2020 CKD-EPI Study Refit equation without the race variable for the IDMS-Traceable creatinine methods.https://jasn.asnjournals.org/content//ASN .7508838357 Performed By: #### 2 4362-6 ####CALE CAI L ([id number])[facility] ([facility])[address] [place] [address] Glucose [Mass/Vol] 212 mg/dL High 74-99 [facility] Comment on above: Performed By: #### 2 4362-6 ####CALE Roth ([id number])[facility] ([facility])[address] [place] [address] Phosphate [Mass/Vol] 2.5 mg/dL Normal 2.5-4.9 [facility] Comment on above: Performed By: #### 2 4362-6 ####CALE CAI L ([id number])[facility] ([facility])[address] [place] [address] Potassium [Moles/Vol] 4.1 mmol/L Normal 3.5-5.3 [facility] Comment on above: Performed By: #### 2 4362-6 ####CALE Roth ([id number])[facility] ([facility])[address] [place] [address] Sodium [Moles/Vol] 134 mmol/L Low 136-145 [facility] Comment on above: Performed By: #### 2 4362-6 ####CALE CAI L ([id number])[facility] ([facility])[address] [place] [address] Urea nitrogen [Mass/Vol] 19 mg/dL Normal 6-23 [facility] Comment on above: Performed By: #### 2 4362-6 ####CALE CAI L ([id number])[facility] ([facility])[address] [place] [address] [facility] US TRANSCRANIAL DOPPLER (TCD) COMPLETEon 03-22-2025 VAS US TRANSCRANIAL DOPPLER (TCD) COMPLETE Normal [facility] XR ABDOMEN 2 VIEWS SUPINE AN D ERECT OR DECUBon 03-22-2025 XR ABDOMEN 2 VIEWS SUPINE AND ERECT OR DECUB [facility] Comment on above: Order Comment: Eboni de los santos have AP and lateral views of abdomen XR SHUNT SERIESon 03-22-2025 XR SHUNT SERIES Normal [facility] Comment on above: Order Comment: Eboni de los santos have AP and lateral abdominal xrays as part of imaging, along with skull xray orthogonal to shunt valve (in right occipital region) Bacteriaon 03-21-2025 Bacteria identified Cx Nom (U) Abnormal [facility] Comment on above: Performed By: #### 6 30-4 ####CALE Roth ([id number])[facility] ([facility])[address] [place] [address] Bacteria identified Cx Nom (CSF) Normal [facility] Comment on above: Performed By: #### 6 06-4 ####CALE Roth ([id number])[facility] ([facility])[address] [place] [address] Blood type and Indirect anti body screen panel (Bld)on 03-21-2025 ABO group Nom (Bld) B Normal [facility] Comment on above: Performed By: #### 3 4532-2 ####CALE Roth ([id number])[facility] ([facility])[address] [place] [address] Blood group antibody screen Ql Negative Normal [facility] Comment on above: Performed By: #### 3 4532-2 ####CALE Roth ([id number])[facility] ([facility])[address] [place] [address] D Ag Ql (Bld) Positive Normal [facility] Comment on above: Performed By: #### 3 4532-2 ####CALE Roth ([id number])[facility] ([facility])[address] [place] [address] CBC W Auto Differential pane l (Bld)on 03-21-2025 Basophils (Bld) [#/Vol] 0.02 x10*3/uL Normal 0.00-0.10 [facility] Comment on above: Performed By: #### 5 7021-8 ####CALE Roth ([id number])[facility] ([facility])[address] [facility] [place] [address] Basophils/100 WBC (Bld) 0.3 % Normal 0.0-2.0 [facility] Comment on above: Performed By: #### 5 7021-8 ####CALE Roth ([id number])[facility] ([facility])[address] [place] [address] Eosinophils (Bld) [#/Vol] 0.00 x10*3/uL Normal 0.00-0.70 [facility] Comment on above: Performed By: #### 5 7021-8 ####CALE Roth ([id number])[facility] ([facility])[address] [place] [address] Eosinophils/100 WBC (Bld) 0.0 % Normal 0.0-6.0 [facility] Comment on above: Performed By: #### 5 7021-8 ####CALE Roth ([id number])[facility] ([facility])[address] [place] [address] Erythrocyte distribution width (RBC) [Ratio] 13.4 % Normal 11.5-14.5 [facility] Comment on above: Performed By: #### 5 7021-8 ####CALE Roth ([id number])[facility] ([facility])[address] [place] [address] Hematocrit (Bld) [Volume fraction] 34.0 % Low 36.0-46.0 [facility] Comment on above: Performed By: #### 5 7021-8 ####CALE Roth ([id number])[facility] ([facility])[address] [place] [address] Hemoglobin (Bld) [Mass/Vol] 11.6 g/dL Low 12.0-16.0 [facility] Comment on above: Performed By: #### 5 7021-8 ####CALE Roth ([id number])[facility] ([facility])[address] [place] [address] Immature granulocytes (Bld) [#/Vol] 0.36 x10*3/uL Normal 0.00-0.70 [facility] Comment on above: Performed By: #### 5 7021-8 ####CALE Roth ([id number])[facility] ([facility])[address] [place] [address] Immature granulocytes/100 WBC (Bld) 4.6 % High 0.0-0.9 [facility] Comment on above: Result Comment: Aleisha ture Granulocyte Count (IG) includes promyelocytes, myelocytes and metamyelocytes but does not include bands. Percent differential counts (%) should be interpreted in the context of the absolute cell counts (cells/UL). Performed By: #### 5 7021-8 ####CALE Roth ([id number])[facility] ([facility])[address]265 [place] [address] Lymphocytes (Bld) [#/Vol] 0.97 x10*3/uL Low 1.20-4.80 [facility] Comment on above: Performed By: #### 5 7021-8 ####CALE Roth ([id number])[facility] ([facility])[address] [place] [address] Lymphocytes/100 WBC (Bld) 12.4 % Normal 13.0-44.0 [facility] Comment on above: Performed By: #### 5 7021-8 ####CALE Roth ([id number])[facility] ([facility])[address] [place] [address] MCH (RBC) [Entitic mass] 29.8 pg Normal 26.0-34.0 [facility] Comment on above: Performed By: #### 5 7021-8 ####CALE Roth ([id number])[facility] ([facility])[address] [place] [address] MCHC (RBC) [Mass/Vol] 34.1 g/dL Normal 32.0-36.0 [facility] Comment on above: Performed By: #### 5 7021-8 ####CALE Roth ([id number])[facility] ([facility])[address] [place] [address] MCV (RBC) [Entitic vol] 87 fL Normal 80-100 [facility] Comment on above: Performed By: #### 5 7021-8 ####CALE Roth ([id number])[facility] ([facility])[address]35 [place] [address] Monocytes (Bld) [#/Vol] 0.43 x10*3/uL Normal 0.10-1.00 [facility] Comment on above: Performed By: #### 5 7021-8 ####CALE Roth ([id number])[facility] ([facility])[address]679 [place] [address] Monocytes/100 WBC (Bld) 5.5 % Normal 2.0-10.0 [facility] Comment on above: Performed By: #### 5 7021-8 ####CALE Roth ([id number])[facility] ([facility])[address]98 [place] [address] Neutrophils (Bld) [#/Vol] 6.02 x10*3/uL Normal 1.20-7.70 [facility] Comment on above: Result Comment: Perc ent differential counts (%) should be interpreted in the context of the absolute cell counts (cells/uL). Performed By: #### 5 7021-8 ####CALE Roth ([id number])[facility] ([facility])[address]27 [place] [address] Neutrophils/100 WBC (Bld) 77.2 % Normal 40.0-80.0 [facility] Comment on above: Performed By: #### 5 7021-8 ####CALE Roth ([id number])[facility] ([facility])[address]60 [place] [address] Nucleated RBC/100 WBC (Bld) [Ratio] 0.0 /100 WBCs Normal 0.0-0.0 [facility] Comment on above: Performed By: #### 5 7021-8 ####CALE Roth ([id number])[facility] ([facility])[address] [place] [address] Platelets (Bld) [#/Vol] 402 x10*3/uL Normal 150-450 [facility] Comment on above: Performed By: #### 5 7021-8 ####CALE CAI L ([id number])[facility] ([facility])[address]394 [place] [address] RBC (Bld) [#/Vol] 3.89 x10*6/uL Low 4.00-5.20 [facility] Comment on above: Performed By: #### 5 7021-8 ####CALE TOSCANOMOTZER L ([id number])[facility] ([facility])[address]803 [place] [address] WBC (Bld) [#/Vol] 7.8 x10*3/uL Normal 4.4-11.3 [facility] Comment on above: Performed By: #### 5 7021-8 ####CALE RUTLEDGEER L ([id number])[facility] ([facility])[address] [place] [address] CSF CELL COUNTon 03-21-2025 Appearance (CSF) Hazy Abnormal Clear [facility] Comment on above: Order Comment: CSF c ell count reference ranges have not been established by [facility]. Based on published references. Performed By: #### C TCS4 ####CALE Roth ([id number])[facility] ([facility])[address] [place] [address] Color (CSF) Colorless Normal Colorless [facility] Comment on above: Order Comment: CSF c ell count reference ranges have not been established by [facility]. Based on published references. Performed By: #### C TCS4 ####CALE PARKERTZER L ([id number])[facility] ([facility])[address]96 [place] [address] Color (Spun CSF) Colorless Normal [facility] Comment on above: Order Comment: CSF c ell count reference ranges have not been established by [facility]. Based on published references. Performed By: #### C TCS4 ####CALE PARKERTZER L ([id number])[facility] ([facility])[address]74 [place] [address] RBC Auto (CSF) [#/Vol] 1435 /uL High 0-5 [facility] Comment on above: Order Comment: CSF c ell count reference ranges have not been established by [facility]. Based on published references. Result Comment: Lucy shepherd hemacytometer count. Performed By: #### C TCS4 ####CALE Roth ([id number])[facility] ([facility])[address] [place] [address] Tube number Nom (CSF) [ID] Tube 1 Normal [facility] Comment on above: Order Comment: CSF c ell count reference ranges have not been established by [facility]. Based on published references. Performed By: #### C TCS4 ####CALE Roth ([id number])[facility] ([facility])[address] [place] [address] WBC Auto (CSF) [#/Vol] <3 Normal 1-5 [facility] Comment on above: Order Comment: CSF c ell count reference ranges have not been established by [facility]. Based on published references. Performed By: #### C TCS4 ####CALE Roth ([id number])[facility] ([facility])[address] [place] [address] CSF DIFFERENTIALon 5 Cells Counted Total (CSF) [#] 1 Normal [facility] Comment on above: Order Comment: CSF c ell differential reference ranges have not been established by [facility]. Based on published references. Performed By: #### D FCSF ####CALE Roth ([id number])[facility] ([facility])[address]43 [place] [address] Lymphocytes/100 WBC Manual cnt (CSF) 100 % High 28-96 [facility] Comment on above: Order Comment: CSF c ell differential reference ranges have not been established by [facility]. Based on published references. Performed By: #### D FCSF ####CALE Roth ([id number])[facility] ([facility])[address] [place] [address] Segmented neutrophils/100 WBC Manual cnt (CSF) 0 % Normal 0-5 [facility] Comment on above: Order Comment: CSF c ell differential reference ranges have not been established by [facility]. Based on published references. Performed By: #### D FCSF ####CALE Roth ([id number])[facility] ([facility])[address] [place] [address] HEAD WITHOUT CONTRAST VOL UMETRIC SURGICAL PLANNINGon 03-21-2025 CT HEAD WITHOUT CONTRAST VOLUMETRIC SURGICAL PLANNING Normal [facility] Calcium.ionizedon 03-21-2025 Calcium.ionized (Bld) [Moles/Vol] 1.22 mmol/L Normal 1.1-1.33 [facility] Comment on above: Result Comment: The performance characteristics of ionized calcium testedin heparinized plasma or serum have been validated [facility] where testing is performed.Testing on heparinized plasma or serum is not approved bythe FDA; however, such approval is not necessary. Performed By: #### 1 994-3 ####CALE Roth ([id number])[facility] ([facility])[address] [place] [address] Choriogonadotropin.beta subu niton 03-21-2025 HCG.beta subunit Qn m[IU]/mL Normal <5 [facility] Comment on above: Order Comment: Total HCG measurement is performed using the Siemens Atellica immunoassay which detects intact HCG and free beta HCG subunit. This test is not indicated for use as a tumor marker. HCG testing is performed using a different test methodology at [facility] than other [facility]. Direct result comparison should only be made within the same method. Performed By: #### 2 1198-7 ####CALE Roth ([id number])[facility] ([facility])[address] [place], [place] [id number] ECG 12-LEADon 03-21-2025 ECG 12-LEAD Ventricular Rate 119 Atrial Rate 119 P-R Interval 154 QRS Duration 80 Q-T Interval 322 QTC Calculation(Bazett) 452 P [place] 69 R [place] 93 T [place] 5 QRS Count 19 Q Onset 220 P Onset 143 P Offset 199 T Offset 381 QTC Fredericia 404 Diagnosis Sinus tachycardia Rightward axis Nonspecific T wave abnormality Abnormal ECG When compared with ECG of 21-MAR-2025 14:09, No significant change was found Confirmed by Kuldip Barriga ([id number]) on 04/06/2025 10:47:23 AM Normal [facility] Glucoseon 03-21-2025 Glucose (CSF) [Mass/Vol] 110 mg/dL High 40-70 [facility] Comment on above: Performed By: #### 2 342-4 ####CALE Roth ([id number])[facility] ([facility])[address] [place] [address] Glucose Test strip manual (B ld) [Mass/Vol]on 03-21-2025 Glucose [Mass/Vol] 216 mg/dL High 7499 [facility] Comment on above: Performed By: #### 2 341-6 ####CALE Roth ([id number])[facility] ([facility])[address] [place] [address] Glucose [Mass/Vol] 162 mg/dL High [address] [place] [address] Comment on above: Performed By: #### 2 341-6 ####CALE Roth ([id number])[facility] ([facility])[address] [place] [address] Glucose [Mass/Vol] 166 mg/dL High [address] [place] [address] Comment on above: Performed By: #### 2 341-6 ####CALE Roth ([id number])[facility] ([facility])[address] [place] [address] Glucose [Mass/Vol] 122 mg/dL High [address] [place] [address] Comment on above: Performed By: #### 2 341-6 ####CALE Roth ([id number])[facility] ([facility])[address] [place] [address] HCG ( test) IA.rapi d Ql (U)on 03-21-2025 HCG ( test) Ql (U) Negative Normal NEGATIVE [facility] Comment on above: Performed By: #### 8 0384-1 ####CALE Roth ([id number])[facility] ([facility])[address] [place] [address] Magnesiumon 03-21-2025 Magnesium [Mass/Vol] 2.08 mg/dL Normal 1.60-2.40 [facility] Comment on above: Performed By: #### 1 9123-9 ####CALE Roth ([id number])[facility] ([facility])[id number] [place] [address] PT and aPTT panel Coag (PPP) on 03-21-2025 aPTT Coag (PPP) [Time] 30 s Normal 26-36 [facility] Comment on above: Order Comment: The A PTT is no longer used for monitoring Unfractionated Heparin Therapy. For monitoring Heparin Therapy, use the Heparin Assay. Performed By: #### 3 4529-8 ####CALE Roth ([id number])[facility] ([facility])[id number] [place] [address] INR Coag (PPP) [Relative time] 1.1 Normal 0.9-1.1 [facility] Comment on above: Order Comment: The A PTT is no longer used for monitoring Unfractionated Heparin Therapy. For monitoring Heparin Therapy, use the Heparin Assay. Performed By: #### 3 4529-8 ####CALE Roth ([id number])[facility] [facility] ([facility])[address] [place] [address] PT Coag (PPP) [Time] 12.6 s High 9.8-12.4 [facility] Comment on above: Order Comment: The A PTT is no longer used for monitoring Unfractionated Heparin Therapy. For monitoring Heparin Therapy, use the Heparin Assay. Performed By: #### 3 4529-8 ####ACLE Roth ([id number])[facility] ([facility])[address] [place] [address] Proteinon 03-21-2025 Protein (CSF) [Mass/Vol] 15 mg/dL Normal 15-45 [facility] Comment on above: Performed By: #### 2 880-3 ####CALE CAI L ([id number])[facility] ([facility])[address] [place] [address] Renal function 2000 panelon 03-21-2025 Albumin BCP dye [Mass/Vol] 4.3 g/dL Normal 3.4-5.0 [facility] Comment on above: Performed By: #### 2 4362-6 ####CALE CAI L ([id number])[facility] ([facility])[address] [place] [address] Anion gap [Moles/Vol] 15 mmol/L Normal 10-20 [facility] Comment on above: Performed By: #### 2 4362-6 ####CALE Roth ([id number])[facility] ([facility])[address] [place] [address] Calcium [Mass/Vol] 9.7 mg/dL Normal 8.6-10.6 [facility] Comment on above: Performed By: #### 2 4362-6 ####CALE CAI L ([id number])[facility] ([facility])[address] [place] [address] Chloride [Moles/Vol] 101 mmol/L Normal 98-107 [facility] Comment on above: Performed By: #### 2 4362-6 ####CALE CAI L ([id number])[facility] ([facility])[address] [place] [address] CO2 [Moles/Vol] 27 mmol/L Normal 21-32 [facility] Comment on above: Performed By: #### 2 4362-6 ####CALE CAI L ([id number])[facility] ([facility])[address] [place] [address] Creatinine [Mass/Vol] 0.41 mg/dL Low 0.50-1.05 [facility] Comment on above: Performed By: #### 2 4362-6 ####CALE CAI L ([id number])[facility] ([facility])[address] [place] [address] Glomerular filtration rate >90 Normal >60 [facility] Comment on above: Result Comment: Calc ulations of estimated GFR are performed using the 2020 CKD-EPI Study Refit equation without the race variable for the IDMS-Traceable creatinine methods.https://jasn.asnjournals.org/content//ASN .5087069619 Performed By: #### 2 4362-6 ####CALE Roth ([id number])[facility] ([facility])[address] [place] [address] Glucose [Mass/Vol] 197 mg/dL High 74-99 [facility] Comment on above: Performed By: #### 2 4362-6 ####CALE Roth ([id number])[facility] ([facility])[address] [place] [address] Phosphate [Mass/Vol] 3.2 mg/dL Normal 2.5-4.9 [facility] Comment on above: Performed By: #### 2 4362-6 ####CALE Roth ([id number])[facility] ([facility])[address] [place] [address] Potassium [Moles/Vol] 4.1 mmol/L Normal 3.5-5.3 [facility] Comment on above: Performed By: #### 2 4362-6 ####CALE CAI L ([id number])[facility] ([facility])[address] [place] [address] Sodium [Moles/Vol] 139 mmol/L Normal 136-145 [facility] Comment on above: Performed By: #### 2 4362-6 ####CALE Roth ([id number])[facility] ([facility])[address] [place] [address] Urea nitrogen [Mass/Vol] 11 mg/dL Normal 6-23 [facility] Comment on above: Performed By: #### 2 4362-6 ####CALE Roth ([id number])[facility] ([facility])[address] [place] [address] Urinalysis complete W Reflex Culture panel (U)on 03-21-2025 Appearance (U) Ex.Turbid Normal Clear [facility] Comment on above: Order Comment: OVER is reported when the result is greater than the clinically reportable range. Performed By: #### 5 8077-9 ####CALE Roth ([id number])[facility] ([facility])[address] [place] [address] Bilirubin (U) [Mass/Vol] Negative Normal NEGATIVE [facility] Comment on above: Order Comment: OVER is reported when the result is greater than the clinically reportable range. Performed By: #### 5 8077-9 ####CALE Roth ([id number])[facility] ([facility])[address] [place] [address] Color (U) Light-[place] Normal Light-Yello w, Yellow, Dark-Yellow [facility] Comment on above: Order Comment: OVER is reported when the result is greater than the clinically reportable range. Performed By: #### 5 8077-9 ####CALE Roth ([id number])[facility] ([facility])[address] [place] [address] Glucose Auto test strip (U) [Mass/Vol] 50 (TRACE) Abnormal Normal [facility] Comment on above: Order Comment: OVER is reported when the result is greater than the clinically reportable range. Performed By: #### 5 8077-9 ####CALE Roth ([id number])[facility] ([facility])[address] [place] [address] Ketones (U) [Mass/Vol] Negative Normal NEGATIVE [facility] Comment on above: Order Comment: OVER is reported when the result is greater than the clinically reportable range. Performed By: #### 5 8077-9 ####CALE Roth ([id number])[facility] ([facility])[address] [place] [address] Leukocyte esterase Auto test strip Ql (U) 250 Joe/uL Abnormal NEGATIVE [facility] Comment on above: Order Comment: OVER is reported when the result is greater than the clinically reportable range. Performed By: #### 5 8077-9 ####CALE Roth ([id number])[facility] ([facility])[address] [place] [address] Nitrite Auto test strip Ql (U) 2+ Abnormal NEGATIVE [facility] Comment on above: Order Comment: OVER is reported when the result is greater than the clinically reportable range. Performed By: #### 5 8077-9 ####CALE Roth ([id number])[facility] ([facility])[address] [place] [address] pH (U) 7.5 [pH] Normal 5.0, 5.5, 6.0, 6.5, 7.0, 7.5, 8.0 [facility] Comment on above: Order Comment: OVER is reported when the result is greater than the clinically reportable range. Performed By: #### 5 8077-9 ####CALE Roth ([id number])[facility] ([facility])[address] [place] [address] Protein (U) [Mass/Vol] Negative Normal NEGATIVE, 10 (TRACE), 20 (TRACE) [facility] Comment on above: Order Comment: OVER is reported when the result is greater than the clinically reportable range. Performed By: #### 5 8077-9 ####CALE Roth ([id number])[facility] ([facility])[address] [place] [address] RBC (U) [#/Vol] OVER (3+) Abnormal NEGATIVE [facility] Comment on above: Order Comment: OVER is reported when the result is greater than the clinically reportable range. Performed By: #### 5 8077-9 ####CALE Roth ([id number])[facility] ([facility])[address] [place] [address] Specific gravity (U) [Rel density] 1.019 Normal 1.005-1.035 [facility] Comment on above: Order Comment: OVER is reported when the result is greater than the clinically reportable range. Performed By: #### 5 8077-9 ####CALE Roth ([id number])[facility] ([facility])[address] [place] [address] Urobilinogen (U) [Mass/Vol] Normal Normal Normal [facility] Comment on above: Order Comment: OVER is reported when the result is greater than the clinically reportable range. Performed By: #### 5 8077-9 ####CALE Roth ([id number])[facility] ([facility])[address] [place] [address] Urinalysis microscopic panel Auto Ql (U)on 03-21-2025 Bacteria Auto (Urine sed) [#/Area] 3+ /HPF Abnormal NONE SEEN [facility] Comment on above: Performed By: #### 5 3315-8 ####CALE Roth ([id number])[facility] ([facility])[address] [place] [address] Epithelial cells.squamous Auto (Urine sed) [#/Area] 1-9 (SPARSE) Normal Reference range not established . [facility] Comment on above: Performed By: #### 5 3315-8 ####CALE Roth ([id number])[facility] ([facility])[address] [place] [address] RBC Auto (Urine sed) [#/Area] >20 Abnormal NONE, 1-2, 3-5 [facility] Comment on above: Performed By: #### 5 3315-8 ####CALE Roth ([id number])[facility] ([facility])[address] [place] [address] WBC Auto (Urine sed) [#/Area] >50 Abnormal 1-5, NONE [facility] Comment on above: Performed By: #### 5 3315-8 ####CALE Roth ([id number])[facility] ([facility])[address] [place] [address] XR CHEST 1 VIEWon 03-21-2025 XR CHEST 1 VIEW Normal [facility] Bacteriaon 03-20-2025 Bacteria identified Cx Nom (CSF) Normal [facility] Comment on above: Performed By: #### 6 06-4 ####CALE Roth ([id number])[facility] ([facility])[address] [place] [address] Bacteria identified Cx Nom (CSF) Abnormal [facility] Comment on above: Performed By: #### 6 06-4 ####CALE Roth ([id number])[facility] ([facility])[address] [place] [address] CBC W Auto Differential pane l (Bld)on 03-20-2025 Basophils (Bld) [#/Vol] 0.03 x10*3/uL Normal 0.00-0.10 [facility] Comment on above: Performed By: #### 5 7021-8 ####CALE Roth ([id number])[facility] ([facility])[address] [place] [address] Basophils/100 WBC (Bld) 0.3 % Normal 0.0-2.0 [facility] Comment on above: Performed By: #### 5 7021-8 ####CALE Roth ([id number])[facility] ([facility])[address] [place] [address] Eosinophils (Bld) [#/Vol] 0.01 x10*3/uL Normal 0.00-0.70 [facility] Comment on above: Performed By: #### 5 7021-8 ####CALE Roth ([id number])[facility] ([facility])[address] [place] [address] Eosinophils/100 WBC (Bld) 0.1 % Normal 0.0-6.0 [facility] Comment on above: Performed By: #### 5 7021-8 ####CALE Roth ([id number])[facility] ([facility])[address] [place] [address] Erythrocyte distribution width (RBC) [Ratio] 12.7 % Normal 11.5-14.5 [facility] Comment on above: Performed By: #### 5 7021-8 ####CALE Roth ([id number])[facility] ([facility])[address] [place] [address] Hematocrit (Bld) [Volume fraction] 30.4 % Low 36.0-46.0 [facility] Comment on above: Performed By: #### 5 7021-8 ####CALE Roth ([id number])[facility] ([facility])[address] [place] [address] Hemoglobin (Bld) [Mass/Vol] 10.8 g/dL Low 12.0-16.0 [facility] Comment on above: Performed By: #### 5 7021-8 ####CALE Roth ([id number])[facility] ([facility])[address] [place] [address] Immature granulocytes (Bld) [#/Vol] 0.27 x10*3/uL Normal 0.00-0.70 [facility] Comment on above: Performed By: #### 5 7021-8 ####CALE Roth ([id number])[facility] ([facility])[address] [place] [address] Immature granulocytes/100 WBC (Bld) 2.8 % High 0.0-0.9 [facility] Comment on above: Result Comment: Aleisha ture Granulocyte Count (IG) includes promyelocytes, myelocytes and metamyelocytes but does not include bands. Percent differential counts (%) should be interpreted in the context of the absolute cell counts (cells/UL). Performed By: #### 5 7021-8 ####CALE Roth ([id number])[facility] ([facility])[address] [place] [address] Lymphocytes (Bld) [#/Vol] 1.06 x10*3/uL Low 1.20-4.80 [facility] Comment on above: Performed By: #### 5 7021-8 ####CALE Roth ([id number])[facility] ([facility])[address] [place] [address] Lymphocytes/100 WBC (Bld) 10.9 % Normal 13.0-44.0 [facility] Comment on above: Performed By: #### 5 7021-8 ####CALE Roth ([id number])[facility] ([facility])[address] [place] [address] MCH (RBC) [Entitic mass] 30.0 pg Normal 26.0-34.0 [facility] Comment on above: Performed By: #### 5 7021-8 ####CALE Roth ([id number])[facility] ([facility])[address] [place] [address] MCHC (RBC) [Mass/Vol] 35.5 g/dL Normal 32.0-36.0 [facility] Comment on above: Performed By: #### 5 7021-8 ####CALE Roth ([id number])[facility] ([facility])[address] [place] [address] MCV (RBC) [Entitic vol] 84 fL Normal 80-100 [facility] Comment on above: Performed By: #### 5 7021-8 ####CALE Roth ([id number])[facility] ([facility])[address] [place] [address] Monocytes (Bld) [#/Vol] 0.50 x10*3/uL Normal 0.10-1.00 [facility] Comment on above: Performed By: #### 5 7021-8 ####CALE Roth ([id number])[facility] ([facility])[address] [place] [address] Monocytes/100 WBC (Bld) 5.2 % Normal 2.0-10.0 [facility] Comment on above: Performed By: #### 5 7021-8 ####CALE Roth ([id number])[facility] ([facility])[address] [place] [address] Neutrophils (Bld) [#/Vol] 7.82 x10*3/uL High 1.20-7.70 [facility] Comment on above: Result Comment: Perc ent differential counts (%) should be interpreted in the context of the absolute cell counts (cells/uL). Performed By: #### 5 7021-8 ####CALE Roth ([id number])[facility] ([facility])[address] [place] [address] Neutrophils/100 WBC (Bld) 80.7 % Normal 40.0-80.0 [facility] Comment on above: Performed By: #### 5 7021-8 ####CALE Roth ([id number])[facility] ([facility])[address] [place] [address] Nucleated RBC/100 WBC (Bld) [Ratio] 0.0 /100 WBCs Normal 0.0-0.0 [facility] Comment on above: Performed By: #### 5 7021-8 ####CALE CAI L ([id number])[facility] ([facility])[address] [place] [address] Platelets (Bld) [#/Vol] 381 x10*3/uL Normal 150-450 [facility] Comment on above: Performed By: #### 5 7021-8 ####CALE Roth ([id number])[facility] ([facility])[address] [place] [address] RBC (Bld) [#/Vol] 3.60 x10*6/uL Low 4.00-5.20 [facility] Comment on above: Performed By: #### 5 7021-8 ####CALE CAI L ([id number])[facility] ([facility])[address] [place] [address] WBC (Bld) [#/Vol] 9.7 x10*3/uL Normal 4.4-11.3 [facility] Comment on above: Performed By: #### 5 7021-8 ####CALE CAI L ([id number])[facility] ([facility])[address] [place] [address] CSF CELL COUNTon 03-20-2025 Appearance (CSF) Clear Normal Clear [facility] Comment on above: Order Comment: CSF c ell count reference ranges have not been established by [facility]. Based on published references. Performed By: #### C TCS4 ####CALE Roth ([id number])[facility] ([facility])[address] [place] [address] Color (CSF) [place] Abnormal Colorless [facility] Comment on above: Order Comment: CSF c ell count reference ranges have not been established by [facility]. Based on published references. Performed By: #### C TCS4 ####CALE Roth ([id number])[facility] ([facility])[address] [place] [address] Color (Spun CSF) Colorless Normal [facility] Comment on above: Order Comment: CSF c ell count reference ranges have not been established by [facility]. Based on published references. Performed By: #### C TCS4 ####CALE Roth ([id number])[facility] ([facility])[address] [place] [address] RBC Manual cnt (CSF) [#/Vol] 3000 /uL High 0-5 [facility] Comment on above: Order Comment: CSF c ell count reference ranges have not been established by [facility]. Based on published references. Performed By: #### C TCS4 ####CALE Roth ([id number])[facility] ([facility])[address] [place] [address] Tube number Nom (CSF) [ID] Unspecified Normal [facility] Comment on above: Order Comment: CSF c ell count reference ranges have not been established by [facility]. Based on published references. Performed By: #### C TCS4 ####CALE Roth ([id number])[facility] ([facility])[address] [place] [address] WBC Manual cnt (CSF) [#/Vol] 1 /uL Normal 1-5 [facility] Comment on above: Order Comment: CSF c ell count reference ranges have not been established by [facility]. Based on published references. Performed By: #### C TCS4 ####CALE Roth ([id number])[facility] ([facility])[id number] [place] [address] Appearance (CSF) Clear Normal Clear [facility] Comment on above: Order Comment: CSF c ell count reference ranges have not been established by [facility]. Based on published references. Performed By: #### C TCS4 ####CALE CAI L ([id number])[facility] ([facility])[address] [place] [address] Color (CSF) [place] Abnormal Colorless [facility] Comment on above: Order Comment: CSF c ell count reference ranges have not been established by [facility]. Based on published references. Performed By: #### C TCS4 ####CALE CAI L ([id number])[facility] ([facility])[address] [place] [address] Color (Spun CSF) Colorless Normal [facility] Comment on above: Order Comment: CSF c ell count reference ranges have not been established by [facility]. Based on published references. Performed By: #### C TCS4 ####CALE Roth ([id number])[facility] ([facility])[id number] [place] [address] RBC Auto (CSF) [#/Vol] 2000 /uL High 0-5 [facility] Comment on above: Order Comment: CSF c ell count reference ranges have not been established by [facility]. Based on published references. Performed By: #### C TCS4 ####CALE Roth ([id number])[facility] ([facility])[id number] [place] [address] Tube number Nom (CSF) [ID] Unspecified Normal [facility] Comment on above: Order Comment: CSF c ell count reference ranges have not been established by [facility]. Based on published references. Performed By: #### C TCS4 ####CALE Roth ([id number])[facility] ([facility])[address] [place] [address] WBC Auto (CSF) [#/Vol] 2 /uL Normal 1-5 [facility] Comment on above: Order Comment: CSF c ell count reference ranges have not been established by [facility]. Based on published references. Performed By: #### C TCS4 ####CALE Roth ([id number])[facility] ([facility])[address] [place] [address] CSF DIFFERENTIALon 5 Cells Counted Total (CSF) [#] 1 Normal [facility] Comment on above: Order Comment: CSF c ell differential reference ranges have not been established by [facility]. Based on published references. Performed By: #### D FCSF ####CALE Roth ([id number])[facility] ([facility])[address] [place] [address] Segmented neutrophils/100 WBC Manual cnt (CSF) 100 % High 0-5 [facility] Comment on above: Order Comment: CSF c ell differential reference ranges have not been established by [facility]. Based on published references. Performed By: #### D FCSF ####CALE Roth ([id number])[facility] ([facility])[address] [place] [address] Cells Counted Total (CSF) [#] 9 Normal [facility] Comment on above: Order Comment: CSF c ell differential reference ranges have not been established by [facility]. Based on published references. Performed By: #### D FCSF ####CALE CAI L ([id number])[facility] ([facility])[address] [place] [address] Lymphocytes/100 WBC Manual cnt (CSF) 67 % Normal 28-96 [facility] Comment on above: Order Comment: CSF c ell differential reference ranges have not been established by [facility]. Based on published references. Performed By: #### D FCSF ####CALE CAI L ([id number])[facility] ([facility])[address] [place] [address] Monocytes+Macrophage s/100 WBC Manual cnt (CSF) 22 % Normal 16-56 [facility] Comment on above: Order Comment: CSF c ell differential reference ranges have not been established by [facility]. Based on published references. Performed By: #### D FCSF ####CALE Roth ([id number])[facility] ([facility])[address] [place] [address] Segmented neutrophils/100 WBC Manual cnt (CSF) 11 % High 0-5 [facility] Comment on above: Order Comment: CSF c ell differential reference ranges have not been established by [facility]. Based on published references. Result Comment: Bact eria Present Performed By: #### D FCSF ####CALE Roth ([id number])[facility] ([facility])[id number] [place] [address] Calcium.ionizedon 03-20-2025 Calcium.ionized (Bld) [Moles/Vol] 1.20 mmol/L Normal 1.1-1.33 [facility] Comment on above: Result Comment: The performance characteristics of ionized calcium testedin heparinized plasma or serum have been validated [facility] where testing is performed.Testing on heparinized plasma or serum is not approved bythe FDA; however, such approval is not necessary. Performed By: #### 1 994-3 ####CALE Roth ([id number])[facility] ([facility])[address] [place] [address] 56646 Glucoseon 03-20-2025 Glucose (CSF) [Mass/Vol] 89 mg/dL High 40-70 [facility] Comment on above: Performed By: #### 2 342-4 ####CALE Roth ([id number])[facility] ([facility])[address] [place] [address] Glucose (CSF) [Mass/Vol] 81 mg/dL High 40-70 [facility] Comment on above: Performed By: #### 2 342-4 ####CALE Roth ([id number])[facility] ([facility])[address] [place] [address] Glucose Test strip manual (B ld) [Mass/Vol]on 03-20-2025 Glucose [Mass/Vol] 204 mg/dL High [address] [place] [address] Comment on above: Performed By: #### 2 341-6 ####CALE Roth ([id number])[facility] ([facility])[address] [place] [address] Glucose [Mass/Vol] 141 mg/dL High [address] [place] [address] Comment on above: Performed By: #### 2 341-6 ####CALE Roth ([id number])[facility] ([facility])[address] [place] [address] Glucose [Mass/Vol] 129 mg/dL High [address] [place] [address] Comment on above: Performed By: #### 2 341-6 ####CALE Roth ([id number])[facility] ([facility])[address] [place] [address] Glucose [Mass/Vol] 111 mg/dL High [address] [place] [address] Comment on above: Performed By: #### 2 341-6 ####CALE Roth ([id number])[facility] ([facility])[address] [place] [address] Glucose [Mass/Vol] 125 mg/dL High [address] [place] [address] Comment on above: Performed By: #### 2 341-6 ####CALE Roth ([id number])[facility] ([facility])[address] [place] [address] Magnesiumon 03-20-2025 Magnesium [Mass/Vol] 1.93 mg/dL Normal 1.60-2.40 [facility] Comment on above: Performed By: #### 1 9123-9 ####CALE Roth ([id number])[facility] ([facility])[address] [place] [address] Pathologist review Ibrahima (Unsp spec) [Interp]on 03-20-2025 PATH REVIEW-CELL CT,CSF Hemorrhagic specimen with bacteria present, correlate with separate microbiology result. Normal [facility] Comment on above: Result Comment: Elec tronically signed out by Alberto Harrell MD on 03/22/25 at 3:45 PM.By the signature on this report, the individual or group listed as making the Final Interpretation/Diagnosis certifies that they have reviewed this case. Performed By: #### 5 9465-5 ####CALE Roth ([id number])[facility] ([facility])[address] [place] [address] [address] REVIEW-CELL CT,CSF Hemorrhagic specimen with many bacteria present, correlate with separate microbiology result. Normal [facility] Comment on above: Result Comment: Elec tronically signed out by Alberto Harrell MD on 03/22/25 at 3:45 PM.By the signature on this report, the individual or group listed as making the Final Interpretation/Diagnosis certifies that they have reviewed this case. Performed By: #### 5 9465-5 ####CALE Roth ([id number])[facility] ([facility])[id number] [place] [address]009 Proteinon 03-20-2025 Protein (CSF) [Mass/Vol] 16 mg/dL Normal 15-45 [facility] Comment on above: Performed By: #### 2 880-3 ####CALE Roth ([id number])[facility] ([facility])[id number] [place] [address]773 Protein (CSF) [Mass/Vol] 23 mg/dL Normal 15-45 [facility] Comment on above: Performed By: #### 2 880-3 ####CALE CAI L ([id number])[facility] ([facility])[address] [place] [address]89[address] Renal function 2000 panelon 03-20-2025 Albumin BCP dye [Mass/Vol] 4.1 g/dL Normal 3.4-5.0 [facility] Comment on above: Performed By: #### 2 4362-6 ####CALE CAI L ([id number])[facility] ([facility])[address] [place] [address] [place] [address] Anion gap [Moles/Vol] 13 mmol/L Normal 10-20 [facility] Comment on above: Performed By: #### 2 4362-6 ####CALE Roth ([id number])[facility] ([facility])[address] [place] [address] Calcium [Mass/Vol] 9.3 mg/dL Normal 8.6-10.6 [facility] Comment on above: Performed By: #### 2 4362-6 ####CALE Roth ([id number])[facility] ([facility])[address] [place] [address] Chloride [Moles/Vol] 106 mmol/L Normal 98-107 [facility] Comment on above: Performed By: #### 2 4362-6 ####CALE Roth ([id number])[facility] ([facility])[address] [place] [address] CO2 [Moles/Vol] 26 mmol/L Normal 21-32 [facility] Comment on above: Performed By: #### 2 4362-6 ####CALE Roth ([id number])[facility] ([facility])[address]1963 [place] [address] Creatinine [Mass/Vol] 0.36 mg/dL Low 0.50-1.05 [facility] Comment on above: Performed By: #### 2 4362-6 ####CALE CAI L ([id number])[facility] ([facility])[address] [place] [address] Glomerular filtration rate >90 Normal >60 [facility] Comment on above: Result Comment: Calc ulations of estimated GFR are performed using the 2020 CKD-EPI Study Refit equation without the race variable for the IDMS-Traceable creatinine methods.https://jasn.asnjournals.org/content/early/ASN .8333512751 Performed By: #### 2 4362-6 ####CALE Roth ([id number])[facility] ([facility])[address] [place] [address] Glucose [Mass/Vol] 130 mg/dL High 74-99 [facility] Comment on above: Performed By: #### 2 4362-6 ####CALE Roth ([id number])[facility] ([facility])[address] [place] [address] Phosphate [Mass/Vol] 1.9 mg/dL Low 2.5-4.9 [facility] Comment on above: Performed By: #### 2 4362-6 ####CALE Roth ([id number])[facility] ([facility])[address]261 [place] [address] Potassium [Moles/Vol] 4.0 mmol/L Normal 3.5-5.3 [facility] Comment on above: Performed By: #### 2 4362-6 ####CALE Roth ([id number])[facility] ([facility])[address]16 [place] [address] Sodium [Moles/Vol] 141 mmol/L Normal 136-145 [facility] Comment on above: Performed By: #### 2 4362-6 ####CALE Roth ([id number])[facility] ([facility])[address]641 [place] [address] Urea nitrogen [Mass/Vol] 10 mg/dL Normal 6-23 [facility] Comment on above: Performed By: #### 2 4362-6 ####CALE Roth ([id number])[facility] ([facility])[address]199 [place] [address] Albumin BCP dye [Mass/Vol] 4.0 g/dL Normal 3.4-5.0 [facility] Comment on above: Performed By: #### 2 4362-6 ####CALE Roth ([id number])[facility] ([facility])[address] [facility] [place] [address] Anion gap [Moles/Vol] 12 mmol/L Normal 10-20 [facility] Comment on above: Performed By: #### 2 4362-6 ####CALE Roth ([id number])[facility] ([facility])[address]24 [place] [address] Calcium [Mass/Vol] 9.4 mg/dL Normal 8.6-10.6 [facility] Comment on above: Performed By: #### 2 4362-6 ####CALE CAI L ([id number])[facility] ([facility])[address]66 [place] [address] Chloride [Moles/Vol] 101 mmol/L Normal 98-107 [facility] Comment on above: Performed By: #### 2 4362-6 ####CALE CAI L ([id number])[facility] ([facility])[address]372 [place] [address] CO2 [Moles/Vol] 27 mmol/L Normal 21-32 [facility] Comment on above: Performed By: #### 2 4362-6 ####CALE CAI L ([id number])[facility] ([facility])[address]805 [place] [address] Creatinine [Mass/Vol] 0.41 mg/dL Low 0.50-1.05 [facility] Comment on above: Performed By: #### 2 4362-6 ####CALE CAI L ([id number])[facility] ([facility])[address] [place] [address] Glomerular filtration rate >90 Normal >60 [facility] Comment on above: Result Comment: Calc ulations of estimated GFR are performed using the 2020 CKD-EPI Study Refit equation without the race variable for the IDMS-Traceable creatinine methods.https://jasn.asnjournals.org/content//ASN .4109062065 Performed By: #### 2 4362-6 ####CALE Roth ([id number])[facility] ([facility])[address]22 [place] [address] Glucose [Mass/Vol] 134 mg/dL High 74-99 [facility] Comment on above: Performed By: #### 2 4362-6 ####CALE Roth ([id number])[facility] ([facility])[address]72 [place] [address] Phosphate [Mass/Vol] 2.0 mg/dL Low 2.5-4.9 [facility] Comment on above: Performed By: #### 2 4362-6 ####CALE Roth ([id number])[facility] ([facility])[address]225 [place] [address] Potassium [Moles/Vol] 3.5 mmol/L Normal 3.5-5.3 [facility] Comment on above: Performed By: #### 2 4362-6 ####CALE Roth ([id number])[facility] ([facility])[address] [place] [address] Sodium [Moles/Vol] 136 mmol/L Normal 136-145 [facility] Comment on above: Performed By: #### 2 4362-6 ####CALE Roth ([id number])[facility] ([facility])[address]190 [place] [address] Urea nitrogen [Mass/Vol] 13 mg/dL Normal 6-23 [facility] Comment on above: Performed By: #### 2 4362-6 ####CALE Roth ([id number])[facility] ([facility])[address] [place] [address]277 CBC W Auto Differential pane l (Bld)on 03-19-2025 Basophils (Bld) [#/Vol] 0.02 x10*3/uL Normal 0.00-0.10 [facility] Comment on above: Performed By: #### 5 7021-8 ####CALE Roth ([id number])[facility] ([facility])[address]753 [place] [address] Basophils/100 WBC (Bld) 0.1 % Normal 0.0-2.0 [facility] Comment on above: Performed By: #### 5 7021-8 ####CALE Roth ([id number])[facility] ([facility])[address] [place] [address] 11625 Eosinophils (Bld) [#/Vol] 0.00 x10*3/uL Normal 0.00-0.70 [facility] Comment on above: Performed By: #### 5 7021-8 ####CALE Roth ([id number])[facility] ([facility])[address] [place] [address] 32033 Eosinophils/100 WBC (Bld) 0.0 % Normal 0.0-6.0 [facility] Comment on above: Performed By: #### 5 7021-8 ####CALE Roth ([id number])[facility] ([facility])[address] [place] [address] 85641 Erythrocyte distribution width (RBC) [Ratio] 13.0 % Normal 11.5-14.5 [facility] Comment on above: Performed By: #### 5 7021-8 ####CALE Roth ([id number])[facility] ([facility])[address] [place] [address]10 Hematocrit (Bld) [Volume fraction] 29.5 % Low 36.0-46.0 [facility] Comment on above: Performed By: #### 5 7021-8 ####CALE Roth ([id number])[facility] ([facility])[address] [place] [address] 46675 Hemoglobin (Bld) [Mass/Vol] 10.5 g/dL Low 12.0-16.0 [facility] Comment on above: Performed By: #### 5 7021-8 ####CALE Roth ([id number])[facility] ([facility])[address] [place] [address] 32549 Immature granulocytes (Bld) [#/Vol] 0.17 x10*3/uL Normal 0.00-0.70 [facility] Comment on above: Performed By: #### 5 7021-8 ####CALE Roth ([id number])[facility] ([facility])[address]228 [place] [address] Immature granulocytes/100 WBC (Bld) 1.3 % High 0.0-0.9 [facility] Comment on above: Result Comment: Aleisha ture Granulocyte Count (IG) includes promyelocytes, myelocytes and metamyelocytes but does not include bands. Percent differential counts (%) should be interpreted in the context of the absolute cell counts (cells/UL). Performed By: #### 5 7021-8 ####CALE Roth ([id number])[facility] ([facility])[address]804 [place] [address] Lymphocytes (Bld) [#/Vol] 0.93 x10*3/uL Low 1.20-4.80 [facility] Comment on above: Performed By: #### 5 7021-8 ####CALE Roth ([id number])[facility] ([facility])87132 [place] [address] Lymphocytes/100 WBC (Bld) 6.9 % Normal 13.0-44.0 [facility] Comment on above: Performed By: #### 5 7021-8 ####CALE Roth ([id number])[facility] ([facility])[address]60 [place] [address] MCH (RBC) [Entitic mass] 30.3 pg Normal 26.0-34.0 [facility] Comment on above: Performed By: #### 5 7021-8 ####CALE Roth ([id number])[facility] ([facility])[address]32 [place] [address] MCHC (RBC) [Mass/Vol] 35.6 g/dL Normal 32.0-36.0 [facility] Comment on above: Performed By: #### 5 7021-8 ####CALE Roth ([id number])[facility] ([facility])[address]19 [place] [address] MCV (RBC) [Entitic vol] 85 fL Normal 80-100 [facility] Comment on above: Performed By: #### 5 7021-8 ####CALE Roth ([id number])[facility] ([facility])[address]16 [place] [address] Monocytes (Bld) [#/Vol] 0.85 x10*3/uL Normal 0.10-1.00 [facility] Comment on above: Performed By: #### 5 7021-8 ####CALE Roth ([id number])[facility] ([facility])[address]90 [place] [address] Monocytes/100 WBC (Bld) 6.3 % Normal 2.0-10.0 [facility] Comment on above: Performed By: #### 5 7021-8 ####CALE Roth ([id number])[facility] ([facility])[address]92 [place] [address] Neutrophils (Bld) [#/Vol] 11.53 x10*3/uL High 1.20-7.70 [facility] Comment on above: Result Comment: Perc ent differential counts (%) should be interpreted in the context of the absolute cell counts (cells/uL). Performed By: #### 5 7021-8 ####CALE Roth ([id number])[facility] ([facility])[address]73 [place] [address] Neutrophils/100 WBC (Bld) 85.4 % Normal 40.0-80.0 [facility] Comment on above: Performed By: #### 5 7021-8 ####CALE Roth ([id number])[facility] ([facility])[address]226 [place] [address] Nucleated RBC/100 WBC (Bld) [Ratio] 0.0 /100 WBCs Normal 0.0-0.0 [facility] Comment on above: Performed By: #### 5 7021-8 ####CALE Roth ([id number])[facility] ([facility])[address]16 [place] [address] Platelets (Bld) [#/Vol] 375 x10*3/uL Normal 150-450 [facility] Comment on above: Performed By: #### 5 7021-8 ####CALE Roth ([id number])[facility] ([facility])[address]22 [place] [address] RBC (Bld) [#/Vol] 3.47 x10*6/uL Low 4.00-5.20 [facility] Comment on above: Performed By: #### 5 7021-8 ####CALE Roth ([id number])[facility] ([facility])57403 [place] [address] WBC (Bld) [#/Vol] 13.5 x10*3/uL High 4.4-11.3 [facility] Comment on above: Performed By: #### 5 7021-8 ####CALE Roth ([id number])[facility] ([facility])[address]20 [place] [address] CT HEAD WO IV CONTRASTon CT HEAD WO IV CONTRAST Normal [facility] Calcium.ionizedon 03-19-2025 Calcium.ionized (Bld) [Moles/Vol] 1.20 mmol/L Normal 1.1-1.33 [facility] Comment on above: Result Comment: The performance characteristics of ionized calcium testedin heparinized plasma or serum have been validated [facility] where [facility] is performed.Testing on heparinized plasma or serum is not approved bythe FDA; however, such approval is not necessary. Performed By: #### 1 994-3 ####CALE Roth ([id number])[facility] ([facility])[address]54 [place] [address] Glucose Test strip manual (B ld) [Mass/Vol]on 03-19-2025 Glucose [Mass/Vol] 130 mg/dL High 74-99 [facility] Comment on above: Performed By: #### 2 341-6 ####CALE Roth ([id number])[facility] ([facility])[address]37 [place] [address] Glucose [Mass/Vol] 138 mg/dL High -[address] [place] [address] Comment on above: Performed By: #### 2 341-6 ####CALE Roth ([id number])[facility] ([facility])[address] [place] [address] Glucose [Mass/Vol] 124 mg/dL High [address] [place] [address] Comment on above: Performed By: #### 2 341-6 ####CALE Roth ([id number])[facility] ([facility])[address] [place] [address]36 Glucose [Mass/Vol] 127 mg/dL High [address] [place] [address] Comment on above: Performed By: #### 2 341-6 ####CALE Roth ([id number])[facility] ([facility])[address] [place] [address]1481 Glucose [Mass/Vol] 128 mg/dL High [address] [place] [address] Comment on above: Performed By: #### 2 341-6 ####CALE Roth ([id number])[facility] ([facility])43329 [place] [address] Glucose [Mass/Vol] 119 mg/dL High [address] [place] [address] Comment on above: Performed By: #### 2 341-6 ####CALE Roth ([id number])[facility] ([facility])[address] [place] [address] Hemoglobin.gastrointestinal^ 1st specimenon 03-19-2025 Hemoglobin.gastroint estinal spec 1 Ql (Stl) Positive Abnormal Negative [facility] Comment on above: Order Comment: From gastric contents Performed By: #### 1 4563-1 ####CALE Roth ([id number])[facility] ([facility])[address] [place] [address] Procalcitoninon 03-19-2025 Procalcitonin [Mass/Vol] ng/mL Normal <=0.07 [facility] Comment on above: Order Comment: Proca [...] Performed By: #### 3 3959-8 ####CALE Roth ([id number])[facility] ([facility])[address]458 [place] [address] Renal function 2000 panelon 03-19-2025 Albumin BCP dye [Mass/Vol] 4.0 g/dL Normal 3.4-5.0 [facility] Comment on above: Performed By: #### 2 4362-6 ####CALE Roth ([id number])[facility] ([facility])[address]80 [place] [address] Anion gap [Moles/Vol] 10 mmol/L Normal 10-20 [facility] Comment on above: Performed By: #### 2 4362-6 ####CALE Roth ([id number])[facility] ([facility])[address]60 [place] [address] Calcium [Mass/Vol] 9.5 mg/dL Normal 8.6-10.6 [facility] Comment on above: Performed By: #### 2 4362-6 ####CALE Roth ([id number])[facility] ([facility])[address]89 [place] [address] Chloride [Moles/Vol] 105 mmol/L Normal 98-107 [facility] Comment on above: Performed By: #### 2 4362-6 ####CALE CAI L ([id number])[facility] ([facility])[address]118 [place] [address] CO2 [Moles/Vol] 30 mmol/L Normal 21-32 [facility] Comment on above: Performed By: #### 2 4362-6 ####CALE Roth ([id number])[facility] ([facility])[address]80 [place] [address] Creatinine [Mass/Vol] 0.45 mg/dL Low 0.50-1.05 [facility] Comment on above: Performed By: #### 2 4362-6 ####CALE Roth ([id number])[facility] ([facility])[address]66 [place] [address] Glomerular filtration rate >90 Normal >60 [facility] Comment on above: Result Comment: Calc ulations of estimated GFR are performed using the 2020 CKD-EPI Study Refit equation without the race variable for the IDMS-Traceable creatinine methods.https://jasn.asnjournals.org/content//ASN .2123520051 Performed By: #### 2 4362-6 ####CALE Roth ([id number])[facility] ([facility])[address]30 [place] [address] Glucose [Mass/Vol] 129 mg/dL High 74-99 [facility] Comment on above: Performed By: #### 2 4362-6 ####CALE CAI L ([id number])[facility] ([facility])[address]41 [place] [address] Phosphate [Mass/Vol] 2.8 mg/dL Normal 2.5-4.9 [facility] Comment on above: Performed By: #### 2 4362-6 ####CALE Roth ([id number])[facility] ([facility])[address]23 [place] [address] Potassium [Moles/Vol] 3.6 mmol/L Normal 3.5-5.3 [facility] [facility] Comment on above: Performed By: #### 2 4362-6 ####CALE Roth ([id number])[facility] ([facility])[address] [place] [address] Sodium [Moles/Vol] 141 mmol/L Normal 136-145 [facility] Comment on above: Performed By: #### 2 4362-6 ####CALE Roth ([id number])[facility] ([facility])[address] [place] [address] Urea nitrogen [Mass/Vol] 13 mg/dL Normal 6-23 [facility] Comment on above: Performed By: #### 2 4362-6 ####CALE Roth ([id number])[facility] ([facility])[address] [place] [address] VASC US TRANSCRANIAL DOPPLER (TCD) COMPLETEon 03-19-2025 VASC US TRANSCRANIAL DOPPLER (TCD) COMPLETE Normal [facility] CBC W Auto Differential pane l (Bld)on 03-18-2025 Basophils (Bld) [#/Vol] 0.04 x10*3/uL Normal 0.00-0.10 [facility] Comment on above: Performed By: #### 5 7021-8 ####CALE Roth ([id number])[facility] ([facility])[address] [place] [address] Basophils/100 WBC (Bld) 0.4 % Normal 0.0-2.0 [facility] Comment on above: Performed By: #### 5 7021-8 ####CALE Roth ([id number])[facility] ([facility])[address] [place] [address] Eosinophils (Bld) [#/Vol] 0.01 x10*3/uL Normal 0.00-0.70 [facility] Comment on above: Performed By: #### 5 7021-8 ####CALE Roth ([id number])[facility] ([facility])[id number] [place] [address] Eosinophils/100 WBC (Bld) 0.1 % Normal 0.0-6.0 [facility] Comment on above: Performed By: #### 5 7021-8 ####CALE Roth ([id number])[facility] ([facility])[address] [place] [address] Erythrocyte distribution width (RBC) [Ratio] 13.2 % Normal 11.5-14.5 [facility] Comment on above: Performed By: #### 5 7021-8 ####CALE Roth ([id number])[facility] ([facility])[id number] [place] [address] Hematocrit (Bld) [Volume fraction] 33.4 % Low 36.0-46.0 [facility] Comment on above: Performed By: #### 5 7021-8 ####CALE Roth ([id number])[facility] ([facility])[id number] [place] [address] Hemoglobin (Bld) [Mass/Vol] 11.1 g/dL Low 12.0-16.0 [facility] Comment on above: Performed By: #### 5 7021-8 ####CALE Roth ([id number])[facility] ([facility])[id number] [place] [address] Immature granulocytes (Bld) [#/Vol] 0.25 x10*3/uL Normal 0.00-0.70 [facility] Comment on above: Performed By: #### 5 7021-8 ####CALE Roth ([id number])[facility] ([facility])[address] [place] [address] Immature granulocytes/100 WBC (Bld) 2.5 % High 0.0-0.9 [facility] Comment on above: Result Comment: Aleisha ture Granulocyte Count (IG) includes promyelocytes, myelocytes and metamyelocytes but does not include bands. Percent differential counts (%) should be interpreted in the context of the absolute cell counts (cells/UL). Performed By: #### 5 7021-8 ####CALE Roth ([id number])[facility] ([facility])[address] [place] [address] Lymphocytes (Bld) [#/Vol] 0.77 x10*3/uL Low 1.20-4.80 [facility] Comment on above: Performed By: #### 5 7021-8 ####CALE Roth ([id number])[facility] ([facility])[address] [place] [address] Lymphocytes/100 WBC (Bld) 7.6 % Normal 13.0-44.0 [facility] Comment on above: Performed By: #### 5 7021-8 ####CALE Roth ([id number])[facility] ([facility])[address] [place] [address] MCH (RBC) [Entitic mass] 30.0 pg Normal 26.0-34.0 [facility] Comment on above: Performed By: #### 5 7021-8 ####CALE Roth ([id number])[facility] ([facility])[address] [place] [address] MCHC (RBC) [Mass/Vol] 33.2 g/dL Normal 32.0-36.0 [facility] Comment on above: Performed By: #### 5 7021-8 ####CALE Roth ([id number])[facility] ([facility])[address] [place] [address] MCV (RBC) [Entitic vol] 90 fL Normal 80-100 [facility] Comment on above: Performed By: #### 5 7021-8 ####CALE Roth ([id number])[facility] ([facility])[address] [place] [address] Monocytes (Bld) [#/Vol] 0.43 x10*3/uL Normal 0.10-1.00 [facility] Comment on above: Performed By: #### 5 7021-8 ####CALE Roth ([id number])[facility] ([facility])[address] [place] [address] Monocytes/100 WBC (Bld) 4.2 % Normal 2.0-10.0 [facility] Comment on above: Performed By: #### 5 7021-8 ####CALE TOSCANOMOTZER L ([id number])[facility] ([facility])[address] [place] [address] Neutrophils (Bld) [#/Vol] 8.65 x10*3/uL High 1.20-7.70 [facility] Comment on above: Result Comment: Perc ent differential counts (%) should be interpreted in the context of the absolute cell counts (cells/uL). Performed By: #### 5 7021-8 ####CALE CAI L ([id number])[facility] ([facility])[address] [place] [address] Neutrophils/100 WBC (Bld) 85.2 % Normal 40.0-80.0 [facility] Comment on above: Performed By: #### 5 7021-8 ####CALE Roth ([id number])[facility] ([facility])[address] [place] [address] Nucleated RBC/100 WBC (Bld) [Ratio] 0.0 /100 WBCs Normal 0.0-0.0 [facility] Comment on above: Performed By: #### 5 7021-8 ####CALE TOSCANOMOTZER L ([id number])[facility] ([facility])[address] [place] [address] Platelets (Bld) [#/Vol] 387 x10*3/uL Normal 150-450 [facility] Comment on above: Performed By: #### 5 7021-8 ####CALE TOSCANOMOISAURA L ([id number])[facility] ([facility])[address] [place] [address] RBC (Bld) [#/Vol] 3.70 x10*6/uL Low 4.00-5.20 [facility] Comment on above: Performed By: #### 5 7021-8 ####CALE Roth ([id number])[facility] ([facility])[address] [place] [address] WBC (Bld) [#/Vol] 10.2 x10*3/uL Normal 4.4-11.3 [facility] Comment on above: Performed By: #### 5 7021-8 ####CALE Roth ([id number])[facility] ([facility])[address] [place] [address] CT HEAD WO IV CONTRASTon CT HEAD WO IV CONTRAST Normal [facility] Calcium.ionizedon 03-18-2025 Calcium.ionized (Bld) [Moles/Vol] 1.22 mmol/L Normal 1.1-1.33 [facility] Comment on above: Result Comment: The performance characteristics of ionized calcium testedin heparinized plasma or serum have been validated by [facility] site where testing is performed.Testing on heparinized plasma or serum is not approved bythe FDA; however, such approval is not necessary. Performed By: #### 1 994-3 ####CALE Roth ([id number])[facility] ([facility])[address] [place] [address] Gas and Carbon monoxide and Electrolytes panel (BldA)on 03-18-2025 Anion gap 4 (BldA) [Moles/Vol] 10 mmo/L Normal 04-17 [facility] Comment on above: Performed By: #### 9 3685-6 ####CALE Roth ([id number])[facility] ([facility])[address] [place] [address] Base excess Calc (Bld) [Moles/Vol] 4.4 mmol/L High -2.0-3.0 [facility] Comment on above: Performed By: #### 9 3685-6 ####CALE Roth ([id number])[facility] ([facility])[address] [place] [address] Calcium.ionized (BldA) [Moles/Vol] 1.20 mmol/L Normal 1.10-1.33 [facility] Comment on above: Performed By: #### 9 3685-6 ####CALE Roth ([id number])[facility] ([facility])[address] [place] [address] Chloride (BldA) [Moles/Vol] 107 mmol/L Normal 98-107 [facility] Comment on above: Performed By: #### 9 3685-6 ####CALE Roth ([id number])[facility] ([facility])[address] [place] [address] CO2 (Bld) [Partial pressure] 39 mm Hg Normal 38-42 [facility] Comment on above: Performed By: #### 9 3685-6 ####CALE Roth ([id number])[facility] ([facility])[address] [place] [address] Glucose [Mass/Vol] 125 mg/dL High 74-99 [facility] Comment on above: Performed By: #### 9 3685-6 ####CALE Roth ([id number])[facility] ([facility])[address] [place] [address] HCO3 (Bld) [Moles/Vol] 28.4 mmol/L High 22.0-26.0 [facility] Comment on above: Performed By: #### 9 3685-6 ####CALE Roth ([id number])[facility] ([facility])[address] [place] [address] Hematocrit Est (Bld) [Volume fraction] 34.0 % Low 36.0-46.0 [facility] Comment on above: Performed By: #### 9 3685-6 ####CALE Roth ([id number])[facility] ([facility])[address] [place] [address] Hemoglobin (Bld) [Mass/Vol] 11.3 g/dL Low 12.0-16.0 [facility] Comment on above: Performed By: #### 9 3685-6 ####CALE Roth ([id number])[facility] ([facility])[address] [place] [address] Inhaled oxygen concentration 30 % Normal [facility] Comment on above: Performed By: #### 9 3685-6 ####CALE Roth ([id number])[facility] ([facility])[id number] [place] [address] Lactate (BldA) [Moles/Vol] 0.6 mmol/L Normal 0.4-2.0 [facility] Comment on above: Performed By: #### 9 3685-6 ####CALE Roth ([id number])[facility] ([facility])[address] [place] [address] Oxygen (Bld) [Partial pressure] 142 mm Hg High 85-95 [facility] Comment on above: Performed By: #### 9 3685-6 ####CALE Roth ([id number])[facility] ([facility])[id number] [place] [address] Oxyhemoglobin (BldA) [Mass fraction] 98.2 % High 94.0-98.0 [facility] Comment on above: Performed By: #### 9 3685-6 ####CALE Roth ([id number])[facility] ([facility])[address] [place] [address] pH (Bld) 7.47 [pH] High 7.38-7.42 [facility] Comment on above: Performed By: #### 9 7055-6 ####CALE Roth ([id number])[facility] ([facility])[address] [place] [address] Potassium (BldA) [Moles/Vol] 3.2 mmol/L Low 3.5-5.3 [facility] Comment on above: Performed By: #### 9 7395-6 ####CALE Roth ([id number])[facility] ([facility])[address] [place] [address] Sodium (BldA) [Moles/Vol] 142 mmol/L Normal 136-145 [facility] Comment on above: Performed By: #### 9 3685-6 ####CALE Roth ([id number])[facility] ([facility])[address]36 [place] [address] Glucose Test strip manual (B ld) [Mass/Vol]on 03-18-2025 Glucose [Mass/Vol] 119 mg/dL High 74-99 [facility] Comment on above: Performed By: #### 2 341-6 ####CALE Roth ([id number])[facility] ([facility])[address] [place] [address] Glucose [Mass/Vol] 144 mg/dL High 74-99 [facility] Comment on above: Performed By: #### 2 341-6 ####CALE Roth ([id number])[facility] ([facility])[address]38 [place] [address] Glucose [Mass/Vol] 99 mg/dL Normal 74-99 [facility] Comment on above: Performed By: #### 2 341-6 ####CALE Roth ([id number])[facility] ([facility])[address]573 [place] [address] Glucose [Mass/Vol] 99 mg/dL Normal 74-99 [facility] Comment on above: Performed By: #### 2 341-6 ####CALE Roth ([id number])[facility] ([facility])[address]29 [place] [address] Glucose [Mass/Vol] 131 mg/dL High 74-99 [facility] Comment on above: Performed By: #### 2 341-6 ####CALE Roth ([id number])[facility] ([facility])[address] [place] [address] MR BRAIN WO IV CONTRASTon MR BRAIN WO IV CONTRAST Normal [facility] Magnesiumon 03-18-2025 Magnesium [Mass/Vol] 2.17 mg/dL Normal 1.60-2.40 [facility] Comment on above: Performed By: #### 1 9123-9 ####CALE Roth ([id number])[facility] ([facility])[address]218 [place] [address] Renal function 2000 panelon 03-18-2025 Albumin BCP dye [Mass/Vol] 4.2 g/dL Normal 3.4-5.0 [facility] Comment on above: Performed By: #### 2 4362-6 ####CALE Roth ([id number])[facility] ([facility])[address] [place] [address]68 Anion gap [Moles/Vol] 11 mmol/L Normal 10-20 [facility] Comment on above: Performed By: #### 2 4362-6 ####CALE Roth ([id number])[facility] ([facility])[address]130 [place] [address] Calcium [Mass/Vol] 9.6 mg/dL Normal 8.6-10.6 [facility] Comment on above: Performed By: #### 2 4362-6 ####CALE oRth ([id number])[facility] ([facility])[address] [place] [address] Chloride [Moles/Vol] 104 mmol/L Normal 98-107 [facility] Comment on above: Performed By: #### 2 4362-6 ####CALE Roth ([id number])[facility] ([facility])[address]386 [place] [address] CO2 [Moles/Vol] 29 mmol/L Normal 21-32 [facility] Comment on above: Performed By: #### 2 4362-6 ####CALE Roth ([id number])[facility] ([facility])[address]492 [place] [address] Creatinine [Mass/Vol] 0.48 mg/dL Low 0.50-1.05 [facility] Comment on above: Performed By: #### 2 4362-6 ####CALE Roth ([id number])[facility] ([facility])[address]994 [place] [address] Glomerular filtration rate >90 Normal >60 [facility] Comment on above: Result Comment: Calc ulations of estimated GFR are performed using the 2020 CKD-EPI Study Refit equation without the race variable for the IDMS-Traceable creatinine methods.https://jasn.asnjournals.org/content//ASN .1882636137 Performed By: #### 2 4362-6 ####CALE Roth ([id number])[facility] ([facility])[address]236 [place] [address] Glucose [Mass/Vol] 130 mg/dL High 74-99 [facility] Comment on above: Performed By: #### 2 4362-6 ####CALE Roth ([id number])[facility] ([facility])[address] [place] [address] Phosphate [Mass/Vol] 2.3 mg/dL Low 2.5-4.9 [facility] Comment on above: Performed By: #### 2 4362-6 ####CALE Roth ([id number])[facility] ([facility])[address]14 [place] [address] Potassium [Moles/Vol] 3.1 mmol/L Low 3.5-5.3 [facility] Comment on above: Performed By: #### 2 4362-6 ####CALE Roth ([id number])[facility] ([facility])[address]776 [place] [address] Sodium [Moles/Vol] 141 mmol/L Normal 136-145 [facility] Comment on above: Performed By: #### 2 4362-6 ####CALE Roth ([id number])[facility] ([facility])[address]84 [place] [address] Urea nitrogen [Mass/Vol] 17 mg/dL Normal 6-23 [facility] Comment on above: Performed By: #### 2 4362-6 ####CALE Roth ([id number])[facility] ([facility])[address]262 [place] [address] XR CHEST 1 VIEWon 03-18-2025 XR CHEST 1 VIEW Normal [facility] CBC W Auto Differential pane l (Bld)on 03-17-2025 Basophils (Bld) [#/Vol] 0.03 x10*3/uL Normal 0.00-0.10 [facility] Comment on above: Performed By: #### 5 7021-8 ####CALE Roth ([id number])[facility] ([facility])[address] [place] [address] Basophils/100 WBC (Bld) 0.3 % Normal 0.0-2.0 [facility] Comment on above: Performed By: #### 5 7021-8 ####CALE Roth ([id number])[facility] ([facility])[address]671 [place] [address] Eosinophils (Bld) [#/Vol] 0.00 x10*3/uL Normal 0.00-0.70 [facility] Comment on above: Performed By: #### 5 7021-8 ####CALE Roth ([id number])[facility] ([facility])[address]118 [place] [address] Eosinophils/100 WBC (Bld) 0.0 % Normal 0.0-6.0 [facility] Comment on above: Performed By: #### 5 7021-8 ####CALE Roth ([id number])[facility] ([facility])[address]79 [place] [address] Erythrocyte distribution width (RBC) [Ratio] 13.0 % Normal 11.5-14.5 [facility] Comment on above: Performed By: #### 5 7021-8 ####CALE Roth ([id number])[facility] ([facility])[address]43 [place] [address] Hematocrit (Bld) [Volume fraction] 27.5 % Low 36.0-46.0 [facility] Comment on above: Performed By: #### 5 7021-8 ####CALE Roth ([id number])[facility] ([facility])[address]31 [place] [address] Hemoglobin (Bld) [Mass/Vol] 9.7 g/dL Low 12.0-16.0 [facility] Comment on above: Performed By: #### 5 7021-8 ####CALE Roth ([id number])[facility] ([facility])[address]75 [place] [address] Immature granulocytes (Bld) [#/Vol] 0.18 x10*3/uL Normal 0.00-0.70 [facility] Comment on above: Performed By: #### 5 7021-8 ####CALE Roth ([id number])[facility] ([facility])[address]1997 [place] [address] Immature granulocytes/100 WBC (Bld) 1.8 % High 0.0-0.9 [facility] Comment on above: Result Comment: Aleisha ture Granulocyte Count (IG) includes promyelocytes, myelocytes and metamyelocytes but does not include bands. Percent differential counts (%) should be interpreted in the context of the absolute cell counts (cells/UL). Performed By: #### 5 7021-8 ####CALE Roth ([id number])[facility] ([facility])[address]69 [place] [address] Lymphocytes (Bld) [#/Vol] 0.65 x10*3/uL Low 1.20-4.80 [facility] Comment on above: Performed By: #### 5 7021-8 ####CALE Roth ([id number])[facility] ([facility])[address]75 [place] [address] Lymphocytes/100 WBC (Bld) 6.4 % Normal 13.0-44.0 [facility] Comment on above: Performed By: #### 5 7021-8 ####CALE Roth ([id number])[facility] ([facility])[address] [place] [address] 19582 MCH (RBC) [Entitic mass] 29.9 pg Normal 26.0-34.0 [facility] Comment on above: Performed By: #### 5 7021-8 ####CALE Roth ([id number])[facility] ([facility])[address] [place] [address] MCHC (RBC) [Mass/Vol] 35.3 g/dL Normal 32.0-36.0 [facility] Comment on above: Performed By: #### 5 7021-8 ####CALE Roth ([id number])[facility] ([facility])[address] [place] [address] MCV (RBC) [Entitic vol] 85 fL Normal 80-100 [facility] Comment on above: Performed By: #### 5 7021-8 ####CALE Roth ([id number])[facility] ([facility])[address] [place] [address]32[address] Monocytes (Bld) [#/Vol] 0.52 x10*3/uL Normal 0.10-1.00 [facility] Comment on above: Performed By: #### 5 7021-8 ####CALE Roth ([id number])[facility] ([facility])[id number] [place] [address] 077[address] Monocytes/100 WBC (Bld) 5.1 % Normal 2.0-10.0 [facility] Comment on above: Performed By: #### 5 7021-8 ####CALE Roth ([id number])[facility] ([facility])[address] [place] [address] Neutrophils (Bld) [#/Vol] 8.82 x10*3/uL High 1.20-7.70 [facility] Comment on above: Result Comment: Perc ent differential counts (%) should be interpreted in the context of the absolute cell counts (cells/uL). Performed By: #### 5 7021-8 ####CALE Roth ([id number])[facility] ([facility])[address] [place] [address] Neutrophils/100 WBC (Bld) 86.4 % Normal 40.0-80.0 [facility] Comment on above: Performed By: #### 5 7021-8 ####CALE Roth ([id number])[facility] ([facility])[address]442 [place] [address] Nucleated RBC/100 WBC (Bld) [Ratio] 0.0 /100 WBCs Normal 0.0-0.0 [facility] Comment on above: Performed By: #### 5 7021-8 ####CALE Roth ([id number])[facility] ([facility])[address] [place] [address] Platelets (Bld) [#/Vol] 279 x10*3/uL Normal 150-450 [facility] Comment on above: Performed By: #### 5 7021-8 ####CALE Roth ([id number])[facility] ([facility])[address] [place] [address] RBC (Bld) [#/Vol] 3.24 x10*6/uL Low 4.00-5.20 [facility] Comment on above: Performed By: #### 5 7021-8 ####CALE Roth ([id number])[facility] ([facility])[address] [place] [address] WBC (Bld) [#/Vol] 10.2 x10*3/uL Normal 4.4-11.3 [facility] Comment on above: Performed By: #### 5 7021-8 ####CALE Roth ([id number])[facility] [facility] ([facility])[address] [place] [address] CT ANGIO CHEST FOR PULMONARY EMBOLISMon 03-17-2025 CT ANGIO CHEST FOR PULMONARY EMBOLISM Normal [facility] Calcium.ionizedon 03-17-2025 Calcium.ionized (Bld) [Moles/Vol] 1.17 mmol/L Normal 1.1-1.33 [facility] Comment on above: Result Comment: The performance characteristics of ionized calcium testedin heparinized plasma or serum have been validated by theindividual laboratory site where testing is performed.Testing on heparinized plasma or serum is not approved bythe FDA; however, such approval is not necessary. Performed By: #### 1 994-3 ####CALE Roth ([id number])[facility] ([facility])[id number] [place] [address] ECG 12-LEADon 03-17-2025 ECG 12-LEAD Ventricular Rate 120 Atrial Rate 120 P-R Interval 160 QRS Duration 78 Q-T Interval 320 QTC Calculation(Bazett) 452 P [place] 73 R [place] 90 T [place] 51 QRS Count 20 Q Onset 220 P Onset 140 P Offset 204 T Offset 380 QTC Fredericia 403 Diagnosis Sinus tachycardia Rightward axis Borderline ECG When compared with ECG of 17-MAR-2025 15:02, No significant change was found Confirmed by Derek Jiang ([id number]) on 03/18/2025 4:39:12 PM Normal [facility] Gas and Carbon monoxide and Electrolytes panel (BldA)on 03-17-2025 Anion gap 4 (BldA) [Moles/Vol] 12 mmo/L Normal - [facility] Comment on above: Performed By: #### 9 3685-6 ####CALE Roth ([id number])[facility] ([facility])[id number] [place] [address] Base excess Calc (Bld) [Moles/Vol] 1.6 mmol/L Normal -2.0-3.0 [facility] Comment on above: Performed By: #### 9 3685-6 ####CALE Roth ([id number])[facility] ([facility])[id number] [place] [address] Calcium.ionized (BldA) [Moles/Vol] 1.20 mmol/L Normal 1.10-1.33 [facility] Comment on above: Performed By: #### 9 7195-6 ####CALE Roth ([id number])[facility] ([facility])[address] [place] [address] Chloride (BldA) [Moles/Vol] 109 mmol/L High 98-107 [facility] Comment on above: Performed By: #### 9 7025-6 ####CALE Roth ([id number])[facility] ([facility])[address] [place] [address] CO2 (Bld) [Partial pressure] 32 mm Hg Low 38-42 [facility] Comment on above: Performed By: #### 9 6815-6 ####CALE Roth ([id number])[facility] ([facility])[id number] [place] [address]63 Glucose [Mass/Vol] 153 mg/dL High 74-99 [facility] Comment on above: Performed By: #### 9 4409-6 ####CALE Roth ([id number])[facility] ([facility])[address] [place] [address] HCO3 (Bld) [Moles/Vol] 24.4 mmol/L Normal 22.0-26.0 [facility] Comment on above: Performed By: #### 9 2745-6 ####CALE Roth ([id number])[facility] ([facility])[address] [place] [address] Hematocrit Est (Bld) [Volume fraction] 37.0 % Normal 36.0-46.0 [facility] Comment on above: Performed By: #### 9 3915-6 ####CALE Roth ([id number])[facility] ([facility])[id number] [place] [address] 80983 Hemoglobin (Bld) [Mass/Vol] 12.3 g/dL Normal 12.0-16.0 [facility] Comment on above: Performed By: #### 9 9646-6 ####CALE Roth ([id number])[facility] ([facility])[address] [place] [address] Inhaled oxygen concentration 30 % Normal [facility] Comment on above: Performed By: #### 9 3685-6 ####CALE Roth ([id number])[facility] ([facility])[address] [place] [address] Lactate (BldA) [Moles/Vol] 0.9 mmol/L Normal 0.4-2.0 [facility] Comment on above: Performed By: #### 9 3685-6 ####CALE Roth ([id number])[facility] ([facility])[address] [place] [address] Oxygen (Bld) [Partial pressure] 133 mm Hg High 85-95 [facility] Comment on above: Performed By: #### 9 3685-6 ####CALE Roth ([id number])[facility] ([facility])[address] [place] [address] 15282 Oxyhemoglobin (BldA) [Mass fraction] 97.5 % Normal 94.0-98.0 [facility] Comment on above: Performed By: #### 9 3685-6 ####CALE Roth ([id number])[facility] ([facility])[address] [place] [address] 71611 pH (Bld) 7.49 [pH] High 7.38-7.42 [facility] Comment on above: Performed By: #### 9 3685-6 ####CALE Roth ([id number])[facility] ([facility])[id number] [place] [address] 97[address] Potassium (BldA) [Moles/Vol] 3.5 mmol/L Normal 3.5-5.3 [facility] Comment on above: Performed By: #### 9 3685-6 ####CALE Roth ([id number])[facility] ([facility])[address] [place] [address] Sodium (BldA) [Moles/Vol] 142 mmol/L Normal 136-145 [facility] Comment on above: Performed By: #### 9 3685-6 ####CALE CAI L ([id number])[facility] ([facility])[address] [place] [address] Glucose Test strip manual (B ld) [Mass/Vol]on 03-17-2025 Glucose [Mass/Vol] 133 mg/dL High [address] [place] [address] Comment on above: Performed By: #### 2 341-6 ####CALE CAI L ([id number])[facility] ([facility])[address] [place] [address] Glucose [Mass/Vol] 136 mg/dL High [address] [place] [address] Comment on above: Performed By: #### 2 341-6 ####CALE CAI L ([id number])[facility] ([facility])[address] [place] [address] Glucose [Mass/Vol] 134 mg/dL High [address] [place] [address] Comment on above: Performed By: #### 2 341-6 ####CALE CAI L ([id number])[facility] ([facility])[address] [place] [address] Glucose [Mass/Vol] 143 mg/dL High [address] [place] [address] Comment on above: Performed By: #### 2 341-6 ####CALE TOSACNOMOTZGONZALEZ L ([id number])[facility] ([facility])[address] [place] [address] Glucose [Mass/Vol] 131 mg/dL High [address] [place] [address] Comment on above: Performed By: #### 2 341-6 ####CALE CAI L ([id number])[facility] ([facility])[address] [place] [address] Glucose [Mass/Vol] 143 mg/dL High [address] [place] [address] Comment on above: Performed By: #### 2 341-6 ####CALE TOSCANOMOTZGONZALEZ L ([id number])[facility] ([facility])[address] [place] [address] IR ANGIOGRAM CEREBRAL BILATE RALon 03-17-2025 IR ANGIOGRAM CEREBRAL BILATERAL Normal [facility] Magnesiumon 03-17-2025 Magnesium [Mass/Vol] 1.92 mg/dL Normal 1.60-2.40 [facility] Comment on above: Performed By: #### 1 9123-9 ####CALE Roth ([id number])[facility] ([facility])[address] [place] [address] Renal function 2000 panelon 03-17-2025 Albumin BCP dye [Mass/Vol] 4.1 g/dL Normal 3.4-5.0 [facility] Comment on above: Performed By: #### 2 4362-6 ####CALE Roth ([id number])[facility] ([facility])[id number] [place] [address]60 Anion gap [Moles/Vol] 15 mmol/L Normal 10-20 [facility] Comment on above: Performed By: #### 2 4362-6 ####CALE Roth ([id number])[facility] ([facility])[address] [place] [address] Calcium [Mass/Vol] 9.2 mg/dL Normal 8.6-10.6 [facility] Comment on above: Performed By: #### 2 4362-6 ####CALE Roth ([id number])[facility] ([facility])[address] [place] [address] Chloride [Moles/Vol] 107 mmol/L Normal 98-107 [facility] Comment on above: Performed By: #### 2 4362-6 ####CALE Roth ([id number])[facility] ([facility])[address] [place] [address] CO2 [Moles/Vol] 25 mmol/L Normal 21-32 [facility] Comment on above: Performed By: #### 2 4362-6 ####CALE Roth ([id number])[facility] ([facility])[address] [place] [address] Creatinine [Mass/Vol] 0.41 mg/dL Low 0.50-1.05 [facility] Comment on above: Performed By: #### 2 4362-6 ####CALE Roth ([id number])[facility] ([facility])[address] [place] [address] Glomerular filtration rate >90 Normal >60 [facility] Comment on above: Result Comment: Calc ulations of estimated GFR are performed using the 2020 CKD-EPI Study Refit equation without the race variable for the IDMS-Traceable creatinine methods.https://jasn.asnjournals.org/content//ASN .7637441115 Performed By: #### 2 4362-6 ####CALE Roth ([id number])[facility] ([facility])[address] [place] [address] Glucose [Mass/Vol] 152 mg/dL High 74-99 [facility] Comment on above: Performed By: #### 2 4362-6 ####CALE Roth ([id number])[facility] ([facility])[address] [place] [address] Phosphate [Mass/Vol] 3.0 mg/dL Normal 2.5-4.9 [facility] Comment on above: Performed By: #### 2 4362-6 ####CALE Roth ([id number])[facility] ([facility])[address] [place] [address] Potassium [Moles/Vol] 3.5 mmol/L Normal 3.5-5.3 [facility] Comment on above: Performed By: #### 2 4362-6 ####CALE Roth ([id number])[facility] ([facility])[address] [place] [address] Sodium [Moles/Vol] 143 mmol/L Normal 136-145 [facility] Comment on above: Performed By: #### 2 4362-6 ####CALE Roth ([id number])[facility] ([facility])[address] [place] [address] Urea nitrogen [Mass/Vol] 12 mg/dL Normal 6-23 [facility] Comment on above: Performed By: #### 2 4362-6 ####CALE Roth ([id number])[facility] ([facility])[address] [facility] [place] [address] Albumin BCP dye [Mass/Vol] 3.8 g/dL Normal 3.4-5.0 [facility] Comment on above: Performed By: #### 2 4362-6 ####CALE Roth ([id number])[facility] ([facility])[address] [place] [address] Anion gap [Moles/Vol] 12 mmol/L Normal 10-20 [facility] Comment on above: Performed By: #### 2 4362-6 ####CALE Roth ([id number])[facility] ([facility])[address] [place] [address] Calcium [Mass/Vol] 9.1 mg/dL Normal 8.6-10.6 [facility] Comment on above: Performed By: #### 2 4362-6 ####CALE Roth ([id number])[facility] ([facility])[address] [place] [address] Chloride [Moles/Vol] 110 mmol/L High 98-107 [facility] Comment on above: Performed By: #### 2 4362-6 ####CALE Roth ([id number])[facility] ([facility])[address] [place] [address] CO2 [Moles/Vol] 25 mmol/L Normal 21-32 [facility] Comment on above: Performed By: #### 2 4362-6 ####CALE Roth ([id number])[facility] ([facility])[address] [place] [address] Creatinine [Mass/Vol] 0.38 mg/dL Low 0.50-1.05 [facility] Comment on above: Performed By: #### 2 4362-6 ####CALE CAI L ([id number])[facility] ([facility])[address] [place] [address] Glomerular filtration rate >90 Normal >60 [facility] Comment on above: Result Comment: Calc ulations of estimated GFR are performed using the 2020 CKD-EPI Study Refit equation without the race variable for the IDMS-Traceable creatinine methods.https://jasn.asnjournals.org/content/early//ASN .0943861931 Performed By: #### 2 4362-6 ####CALE Roth ([id number])[facility] ([facility])[address] [place] [address] Glucose [Mass/Vol] 145 mg/dL High 74-99 [facility] Comment on above: Performed By: #### 2 4362-6 ####CALE CAI L ([id number])[facility] ([facility])[address]350 [place] [address] Phosphate [Mass/Vol] 2.0 mg/dL Low 2.5-4.9 [facility] Comment on above: Performed By: #### 2 4362-6 ####CALE CAI L ([id number])[facility] ([facility])[address] [place] [address] Potassium [Moles/Vol] 3.3 mmol/L Low 3.5-5.3 [facility] Comment on above: Performed By: #### 2 4362-6 ####CALE CAI L ([id number])[facility] ([facility])[address]959 [place] [address] Sodium [Moles/Vol] 144 mmol/L Normal 136-145 [facility] Comment on above: Performed By: #### 2 4362-6 ####CALE TOSCANOMOISAURA L ([id number])[facility] ([facility])[address] [place] [address] Urea nitrogen [Mass/Vol] 9 mg/dL Normal 12-14 [facility] Comment on above: Performed By: #### 2 4362-6 ####CALE Roth ([id number])[facility] ([facility])[address] [place] [address] VASC US TRANSCRANIAL DOPPLER (TCD) COMPLETEon 03-17-2025 VASC US TRANSCRANIAL DOPPLER (TCD) COMPLETE Normal [facility] XR CHEST 1 VIEWon 03-17-2025 XR CHEST 1 VIEW Normal [facility] Bacteriaon 03-16-2025 Bacteria identified Cx Nom (CSF) Normal [facility] Comment on above: Performed By: #### 6 06-4 ####CALE Roth ([id number])[facility] ([facility])[address] [place] [address] 32289 CBC W Auto Differential pane l (Bld)on 03-16-2025 Erythrocyte distribution width (RBC) [Ratio] 12.6 % Normal 11.5-14.5 [facility] Comment on above: Order Comment: The [...] Performed By: #### 5 7021-8 ####CALE Roth ([id number])[facility] ([facility])[address]65 [place] [address] Hematocrit (Bld) [Volume fraction] 26.1 % Low 36.0-46.0 [facility] Comment on above: Order Comment: The [...] Performed By: #### 5 7021-8 ####CALE Roth ([id number])[facility] ([facility])[address] [place] [address] Hemoglobin (Bld) [Mass/Vol] 8.9 g/dL Low 12.0-16.0 [facility] Comment on above: Order Comment: The [...] Performed By: #### 5 7021-8 ####CALE Roth ([id number])[facility] ([facility])[id number] [place] [address] Immature granulocytes (Bld) [#/Vol] 0.23 x10*3/uL Normal 0.00-0.70 [facility] Comment on above: Order Comment: The [...] Performed By: #### 5 7021-8 ####CALE Roth ([id number])[facility] ([facility])[address] [place] [address] Immature granulocytes/100 WBC (Bld) 2.5 % High 0.0-0.9 [facility] Comment on above: Order Comment: The [...] By: #### 5 7021-8 ####CALE CAI L ([id number])[facility] ([facility])[address] [place] [address] MCH (RBC) [Entitic mass] 30.2 pg Normal 26.0-34.0 [facility] Comment on above: Order Comment: The [...] By: #### 5 7021-8 ####CALE TOSCANOMOBALJITER L ([id number])[facility] ([facility])[address]1939 [place] [address] MCHC (RBC) [Mass/Vol] 34.1 g/dL Normal 32.0-36.0 [facility] Comment on above: Order Comment: The [...] Performed By: #### 5 7021-8 ####CALE Roth ([id number])[facility] ([facility])[address]873 [place] [address] MCV (RBC) [Entitic vol] 89 fL Normal 80-100 [facility] Comment on above: Order Comment: The [...] Performed By: #### 5 7021-8 ####CALE Roth ([id number])[facility] ([facility])[address]320 [place] [address] Nucleated RBC/100 WBC (Bld) [Ratio] 0.0 /100 WBCs Normal 0.0-0.0 [facility] Comment on above: Order Comment: The [...] Performed By: #### 5 7021-8 ####CALE Roth ([id number])[facility] ([facility])[address]862 [place] [address] Platelets (Bld) [#/Vol] 219 x10*3/uL Normal 150-450 [facility] Comment on above: Order Comment: The [...] Performed By: #### 5 7021-8 ####CALE Roth ([id number])[facility] ([facility])[address]07 [place] [address] RBC (Bld) [#/Vol] 2.95 x10*6/uL Low 4.00-5.20 [facility] Comment on above: Order Comment: The [...] By: #### 5 7021-8 ####CALE TOSCANOMOTZGONZALEZ Roth ([id number])[facility] ([facility])[address] [place] [address] WBC (Bld) [#/Vol] 9.3 x10*3/uL Normal 4.4-11.3 [facility] Comment on above: Order Comment: The [...] Performed By: #### 5 7021-8 ####CALE Roth ([id number])[facility] ([facility])[address] [place] [address] 31808 CSF CELL COUNTon 03-16-2025 Appearance (CSF) Clear Normal Clear [facility] Comment on above: Order Comment: CSF c ell count reference ranges have not been established by [facility]. Based on published references. Performed By: #### C TCS4 ####CALE Roth ([id number])[facility] ([facility])[address] [place] [address] 90557 Color (CSF) Straw Abnormal Colorless [facility] Comment on above: Order Comment: CSF c ell count reference ranges have not been established by [facility]. Based on published references. Performed By: #### C TCS4 ####CALE TOSCANOMOTZER L ([id number])[facility] ([facility])[address]006 [place] [address] Color (Spun CSF) Colorless Normal [facility] Comment on above: Order Comment: CSF c ell count reference ranges have not been established by [facility]. Based on published references. Performed By: #### C TCS4 ####CALE TOSCANOMOTZER L ([id number])[facility] ([facility])[id number] [place] [address] 47754 RBC Auto (CSF) [#/Vol] 3000 /uL High 0-5 [facility] Comment on above: Order Comment: CSF c ell count reference ranges have not been established by [facility]. Based on published references. Performed By: #### C TCS4 ####CLAE Roth ([id number])[facility] ([facility])[id number] [place] [address] 32065 Tube number Nom (CSF) [ID] Tube 1 Normal [facility] Comment on above: Order Comment: CSF c ell count reference ranges have not been established by [facility]. Based on published references. Performed By: #### C TCS4 ####CALE Roth ([id number])[facility] ([facility])[address] [place] [address] 22362 WBC Auto (CSF) [#/Vol] <3 Normal 1-5 [facility] Comment on above: Order Comment: CSF c ell count reference ranges have not been established by [facility]. Based on published references. Performed By: #### C TCS4 ####CALE Roth ([id number])[facility] ([facility])[id number] [place] [address] 39774 CSF DIFFERENTIALon 5 Cells Counted Total (CSF) [#] 2 Normal [facility] Comment on above: Order Comment: CSF c ell differential reference ranges have not been established by [facility]. Based on published references. Performed By: #### D FCSF ####CALE Roth ([id number])[facility] ([facility])[address] [place] [address] 53221 Lymphocytes/100 WBC Manual cnt (CSF) 50 % Normal 28-96 [facility] Comment on above: Order Comment: CSF c ell differential reference ranges have not been established by [facility]. Based on published references. Performed By: #### D FCSF ####CALE Roth ([id number])[facility] ([facility])[address] [place] [address] Monocytes+Macrophage s/100 WBC Manual cnt (CSF) 50 % Normal 16-56 [facility] Comment on above: Order Comment: CSF c ell differential reference ranges have not been established by [facility]. Based on published references. Performed By: #### D FCSF ####CALE Roth ([id number])[facility] ([facility])[address] [place] [address] Segmented neutrophils/100 WBC Manual cnt (CSF) 0 % Normal 0-5 [facility] Comment on above: Order Comment: CSF c ell differential reference ranges have not been established by [facility]. Based on published references. Performed By: #### D FCSF ####CALE Roth ([id number])[facility] ([facility])[address] [place] [address] CT HEAD WO IV CONTRASTon CT HEAD WO IV CONTRAST Normal [facility] Calcium.ionizedon 03-16-2025 Calcium.ionized (Bld) [Moles/Vol] 1.15 mmol/L Normal 1.1-1.33 [facility] Comment on above: Result Comment: The performance characteristics of ionized calcium testedin heparinized plasma or serum have [facility] where [facility] is performed.Testing on heparinized plasma or serum is not approved bythe FDA; however, such approval is not necessary. Performed By: #### 1 994-3 ####CALE Roth ([id number])[facility] ([facility])[address]356 [place] [address] Glucoseon 03-16-2025 Glucose (CSF) [Mass/Vol] 85 mg/dL High 40-70 [facility] Comment on above: Performed By: #### 2 342-4 ####CALE Roth ([id number])[facility] ([facility])[address] [place] [address] Glucose Test strip manual (B ld) [Mass/Vol]on 03-16-2025 Glucose [Mass/Vol] 124 mg/dL High 74-99 [facility] Comment on above: Performed By: #### 2 341-6 ####CALE Roth ([id number])[facility] ([facility])[address] [place] [address] Glucose [Mass/Vol] 158 mg/dL High [address] [place] [address] Comment on above: Performed By: #### 2 341-6 ####CALE Roth ([id number])[facility] ([facility])[address] [place] [address] Glucose [Mass/Vol] 143 mg/dL High [address] [place] [address] Comment on above: Performed By: #### 2 341-6 ####CALE Roth ([id number])[facility] ([facility])[address] [place] [address] Glucose [Mass/Vol] 143 mg/dL High [address] [place] [address] Comment on above: Performed By: #### 2 341-6 ####CALE Roth ([id number])[facility] ([facility])[address] [place] [address] Glucose [Mass/Vol] 132 mg/dL High [address] [place] [address] Comment on above: Performed By: #### 2 341-6 ####CALE Roth ([id number])[facility] ([facility])[address] [place] [address] Glucose [Mass/Vol] 166 mg/dL High [address] [place] [address] Comment on above: Performed By: #### 2 341-6 ####CALE Roth ([id number])[facility] ([facility])[address] [place] [address] Magnesiumon 03-16-2025 Magnesium [Mass/Vol] 1.95 mg/dL Normal 1.60-2.40 [facility] Comment on above: Performed By: #### 1 9123-9 ####CALE Roth ([id number])[facility] ([facility])[address] [place] [address] Manual differential performe d Ql (Bld)on 03-16-2025 Band form neutrophils (Bld) [#/Vol] 0.00 x10*3/uL Normal 0.00-0.70 [facility] Comment on above: Performed By: #### 5 0957-0 ####CALE Roth ([id number])[facility] ([facility])[address] [place] [address] Band form neutrophils/100 WBC (Bld) 0.0 % Normal 0.0-5.0 [facility] Comment on above: Performed By: #### 5 0957-0 ####CALE Roth ([id number])[facility] ([facility])[address] [place] [address] Basophils (Bld) [#/Vol] 0.08 x10*3/uL Normal 0.00-0.10 [facility] Comment on above: Performed By: #### 5 0957-0 ####CALE Roth ([id number])[facility] ([facility])[address] [place] [address] Basophils/100 WBC (Bld) 0.9 % Normal 0.0-2.0 [facility] Comment on above: Performed By: #### 5 0957-0 ####CALE Roth ([id number])[facility] ([facility])[address] [place] [address] Blasts Manual cnt (Bld) [#/Vol] 0.00 x10*3/uL Normal 0.00-0.00 [facility] Comment on above: Performed By: #### 5 0957-0 ####CALE Roth ([id number])[facility] ([facility])[address] [place] [address] Blasts/100 WBC (Bld) 0.0 % Normal 0.0-0.0 [facility] Comment on above: Performed By: #### 5 0957-0 ####CALE Roth ([id number])[facility] ([facility])[address]27 [place] [address] Cells Counted Total (Bld) [#] 115 Normal [facility] Comment on above: Performed By: #### 5 57-0 ####CALE Roth ([id number])[facility] ([facility])[address]26 [place] [address] Eosinophils (Bld) [#/Vol] 0.00 x10*3/uL Normal 0.00-0.70 [facility] Comment on above: Performed By: #### 5 57-0 ####CALE Roth ([id number])[facility] ([facility])[address] [place] [address] Eosinophils/100 WBC (Bld) 0.0 % Normal 0.0-6.0 [facility] Comment on above: Performed By: #### 5 57-0 ####CALE Roth ([id number])[facility] ([facility])[address] [place] [address] Lymphocytes (Bld) [#/Vol] 0.24 x10*3/uL Low 1.20-4.80 [facility] Comment on above: Performed By: #### 5 57-0 ####CALE Roth ([id number])[facility] ([facility])[address] [place] [address] Lymphocytes/100 WBC (Bld) 2.6 % Normal 13.0-44.0 [facility] Comment on above: Performed By: #### 5 57-0 ####CALE Roth ([id number])[facility] ([facility])[address] [place] [address] Metamyelocytes (Bld) [#/Vol] 0.00 x10*3/uL Normal 0.00-0.00 [facility] Comment on above: Performed By: #### 5 57-0 ####CALE Roth ([id number])[facility] ([facility])[address] [place] [address] Metamyelocytes/100 WBC (Bld) 0.0 % Normal 0.0-0.0 [facility] Comment on above: Performed By: #### 5 57-0 ####CALE Roth ([id number])[facility] ([facility])[address]39 [place] [address] Monocytes (Bld) [#/Vol] 0.00 x10*3/uL Low 0.10-1.00 [facility] Comment on above: Performed By: #### 5 57-0 ####CALE Roth ([id number])[facility] ([facility])[address] [place] [address] Monocytes/100 WBC (Bld) 0.0 % Normal 2.0-10.0 [facility] Comment on above: Performed By: #### 5 57-0 ####CALE Roth ([id number])[facility] ([facility])[address] [place] [address] Myelocytes (Bld) [#/Vol] 0.00 x10*3/uL Normal 0.00-0.00 [facility] Comment on above: Performed By: #### 5 57-0 ####CALE Roth ([id number])[facility] ([facility])[address] [place] [address] Myelocytes/100 WBC (Bld) 0.0 % Normal 0.0-0.0 [facility] Comment on above: Performed By: #### 5 57-0 ####CALE Roth ([id number])[facility] ([facility])[address] [place] [address] Neutrophils (Bld) [#/Vol] 8.97 x10*3/uL High 1.20-7.70 [facility] Comment on above: Performed By: #### 5 57-0 ####CALE Roth ([id number])[facility] ([facility])[address]104 [place] [address] Nucleated RBC/100 WBC (Bld) [Ratio] 0.0 % Normal 0.0-0.0 [facility] Comment on above: Performed By: #### 5 57-0 ####CALE Roth ([id number])[facility] ([facility])[address]38 [place] [address] Plasma cells (Bld) [#/Vol] 0.00 x10*3/uL Normal 0.00-0.00 [facility] Comment on above: Performed By: #### 5 0957-0 ####CALE Roth ([id number])[facility] ([facility])[address]84 [place] [address] Plasma cells/100 WBC Manual cnt (Bld) 0.0 % Normal 0.00-0.00 [facility] Comment on above: Performed By: #### 5 0957-0 ####CALE Roth ([id number])[facility] ([facility])[address] [place] [address] Promyelocytes (Bld) [#/Vol] 0.00 x10*3/uL Normal 0.00-0.00 [facility] Comment on above: Performed By: #### 5 57-0 ####CALE Roth ([id number])[facility] ([facility])[address]31 [place] [address] Promyelocytes/100 WBC (Bld) 0.0 % Normal 0.0-0.0 [facility] Comment on above: Performed By: #### 5 57-0 ####CALE Roth ([id number])[facility] ([facility])[address]342 [place] [address] RBC morphology finding Nom (Bld) No significant RBC morphology present Normal [facility] Comment on above: Performed By: #### 5 0957-0 ####CALE Roth ([id number])[facility] ([facility])[address]369 [place] [address] Segmented neutrophils (Bld) [#/Vol] 8.97 x10*3/uL High 1.20-7.00 [facility] Comment on above: Performed By: #### 5 0957-0 ####CALE Roth ([id number])[facility] ([facility])[address] [place] [address] Segmented neutrophils/100 WBC (Bld) 96.5 % Normal 40.0-80.0 [facility] Comment on above: Result Comment: Perc ent differential counts (%) should be interpreted in the context of the absolute cell counts (cells/uL). Performed By: #### 5 0957-0 ####CALE Roth ([id number])[facility] ([facility])[address] [place] [address] Variant lymphocytes (Bld) [#/Vol] 0.00 x10*3/uL Normal 0.00-0.50 [facility] Comment on above: Performed By: #### 5 0957-0 ####CALE Roth ([id number])[facility] ([facility])[address]65 [place] [address] Variant lymphocytes/100 WBC (Bld) 0.0 % Normal 0.0-2.0 [facility] Comment on above: Performed By: #### 5 0957-0 ####CALE Roth ([id number])[facility] ([facility])[address]846 [place] [address] WBC other Manual cnt (Bld) [#/Vol] 0.00 x10*3/uL Normal [facility] Comment on above: Performed By: #### 5 0957-0 ####CALE Roth ([id number])[facility] ([facility])[address]58 [place] [address] WBC other/100 WBC (Bld) 0.0 % Normal [facility] Comment on above: Performed By: #### 5 0957-0 ####CALE Roth ([id number])[facility] ([facility])[address]356 [place] [address] Prealbuminon 03-16-2025 Prealbumin [Mass/Vol] 20.0 mg/dL Normal 18.0-40.0 [facility] Comment on above: Performed By: #### 1 4338-8 ####CLAE Roth ([id number])[facility] ([facility])[address]60 [place] [address] Proteinon 03-16-2025 Protein (CSF) [Mass/Vol] 17 mg/dL Normal 15-45 [facility] Comment on above: Performed By: #### 2 880-3 ####CALE Roth ([id number])[facility] ([facility])[address]200 [place] [address] Renal function 2000 panelon 03-16-2025 Albumin BCP dye [Mass/Vol] 3.2 g/dL Low 3.4-5.0 [facility] Comment on above: Performed By: #### 2 4362-6 ####CALE Roth ([id number])[facility] ([facility])[address]32 [place] [address] Anion gap [Moles/Vol] 8 mmol/L Low 10-20 [facility] Comment on above: Performed By: #### 2 4362-6 ####CALE Roth ([id number])[facility] ([facility])[id number] [place] [address] Calcium [Mass/Vol] 8.1 mg/dL Low 8.6-10.6 [facility] Comment on above: Performed By: #### 2 4362-6 ####CALE Roth ([id number])[facility] ([facility])[address]777 [place] [address] Chloride [Moles/Vol] 113 mmol/L High 98-107 [facility] Comment on above: Performed By: #### 2 4362-6 ####CALE Roth ([id number])[facility] ([facility])[address]65 [place] [address] CO2 [Moles/Vol] 25 mmol/L Normal 21-32 [facility] Comment on above: Performed By: #### 2 4362-6 ####CALE Roth ([id number])[facility] ([facility])[address]44 [place] [address] Creatinine [Mass/Vol] 0.42 mg/dL Low 0.50-1.05 [facility] Comment on above: Performed By: #### 2 4362-6 ####CALE Roth ([id number])[facility] ([facility])[address]90 [place] [address] Glomerular filtration rate >90 Normal >60 [facility] Comment on above: Result Comment: Calc ulations of estimated GFR are performed using the 2020 CKD-EPI Study Refit equation without the race variable for the IDMS-Traceable creatinine methods.https://jasn.asnjournals.org/content/early/ASN .7222826364 Performed By: #### 2 4362-6 ####CALE Roth ([id number])[facility] ([facility])[address] [place] [address] Glucose [Mass/Vol] 138 mg/dL High 74-99 [facility] Comment on above: Performed By: #### 2 4362-6 ####CALE CAI L ([id number])[facility] ([facility])[address]24 [place] [address] Phosphate [Mass/Vol] 3.6 mg/dL Normal 2.5-4.9 [facility] Comment on above: Performed By: #### 2 4362-6 ####CALE CAI L ([id number])[facility] ([facility])[address]53 [place] [address] Potassium [Moles/Vol] 3.4 mmol/L Low 3.5-5.3 [facility] Comment on above: Performed By: #### 2 4362-6 ####CALE CAI L ([id number])[facility] ([facility])[address]01 [place] [address] Sodium [Moles/Vol] 143 mmol/L Normal 136-145 [facility] Comment on above: Performed By: #### 2 4362-6 ####CALE CAI L ([id number])[facility] ([facility])[address]13 [place] [address] Urea nitrogen [Mass/Vol] 9 mg/dL Normal - [facility] Comment on above: Performed By: #### 2 4362-6 ####CALE Roth ([id number])[facility] ([facility])[address]25 [place] [address] VASC US TRANSCRANIAL DOPPLER (TCD) COMPLETEon 03-16-2025 VASC US TRANSCRANIAL DOPPLER (TCD) COMPLETE Normal [facility] XR ABDOMEN 1 VIEWon 03-16-20 XR ABDOMEN 1 VIEW Normal [facility] Comment on above: Order Comment: RN to release order via task on Brain when patient is ready for x-ray confirmation of NG tube placement. XR ABDOMEN 1 VIEW Normal [facility] XR CHEST 1 VIEWon 03-16-2025 XR CHEST 1 VIEW Normal [facility] CBC W Auto Differential pane l (Bld)on 03-15-2025 Basophils (Bld) [#/Vol] 0.05 x10*3/uL Normal 0.00-0.10 [facility] Comment on above: Performed By: #### 5 7021-8 ####CALE Roth ([id number])[facility] ([facility])[id number] [place] [address] Basophils/100 WBC (Bld) 0.5 % Normal 0.0-2.0 [facility] Comment on above: Performed By: #### 5 7021-8 ####CALE Roth ([id number])[facility] ([facility])[id number] [place] [address] Eosinophils (Bld) [#/Vol] 0.23 x10*3/uL Normal 0.00-0.70 [facility] Comment on above: Performed By: #### 5 7021-8 ####CALE Roth ([id number])[facility] ([facility])[id number] [place] [address] Eosinophils/100 WBC (Bld) 2.5 % Normal 0.0-6.0 [facility] Comment on above: Performed By: #### 5 7021-8 ####CALE Roth ([id number])[facility] ([facility])[address]377 [place] [address] Erythrocyte distribution width (RBC) [Ratio] 12.2 % Normal 11.5-14.5 [facility] Comment on above: Performed By: #### 5 7021-8 ####CALE Roth ([id number])[facility] ([facility])[address] [place] [address] Hematocrit (Bld) [Volume fraction] 29.6 % Low 36.0-46.0 [facility] Comment on above: Performed By: #### 5 7021-8 ####CALE Roth ([id number])[facility] ([facility])[address] [place] [address] Hemoglobin (Bld) [Mass/Vol] 10.1 g/dL Low 12.0-16.0 [facility] Comment on above: Performed By: #### 5 7021-8 ####CALE Roth ([id number])[facility] ([facility])[id number] [place] [address] Immature granulocytes (Bld) [#/Vol] 0.36 x10*3/uL Normal 0.00-0.70 [facility] Comment on above: Performed By: #### 5 7021-8 ####CALE Roth ([id number])[facility] ([facility])[id number] [place] [address] Immature granulocytes/100 WBC (Bld) 3.9 % High 0.0-0.9 [facility] Comment on above: Result Comment: Aleisha ture Granulocyte Count (IG) includes promyelocytes, myelocytes and metamyelocytes but does not include bands. Percent differential counts (%) should be interpreted in the context of the absolute cell counts (cells/UL). Performed By: #### 5 7021-8 ####CALE Roth ([id number])[facility] ([facility])[address]354 [place] [address] Lymphocytes (Bld) [#/Vol] 1.86 x10*3/uL Normal 1.20-4.80 [facility] Comment on above: Performed By: #### 5 7021-8 ####CALE Roth ([id number])[facility] ([facility])[address] [place] [address] Lymphocytes/100 WBC (Bld) 19.9 % Normal 13.0-44.0 [facility] Comment on above: Performed By: #### 5 7021-8 ####CALE Roth ([id number])[facility] ([facility])[address] [place] [address] MCH (RBC) [Entitic mass] 30.1 pg Normal 26.0-34.0 [facility] Comment on above: Performed By: #### 5 7021-8 ####CALE Roth ([id number])[facility] ([facility])[address] [place] [address] MCHC (RBC) [Mass/Vol] 34.1 g/dL Normal 32.0-36.0 [facility] Comment on above: Performed By: #### 5 7021-8 ####CALE Roth ([id number])[facility] ([facility])[address] [place] [address] MCV (RBC) [Entitic vol] 88 fL Normal 80-100 [facility] Comment on above: Performed By: #### 5 7021-8 ####CALE Roth ([id number])[facility] ([facility])[address] [place] [address] Monocytes (Bld) [#/Vol] 0.58 x10*3/uL Normal 0.10-1.00 [facility] Comment on above: Performed By: #### 5 7021-8 ####CALE Roth ([id number])[facility] ([facility])[address] [place] [address] Monocytes/100 WBC (Bld) 6.2 % Normal 2.0-10.0 [facility] Comment on above: Performed By: #### 5 7021-8 ####CALE Roth ([id number])[facility] ([facility])[address]487 [place] [address] Neutrophils (Bld) [#/Vol] 6.26 x10*3/uL Normal 1.20-7.70 [facility] Comment on above: Result Comment: Perc ent differential counts (%) should be interpreted in the context of the absolute cell counts (cells/uL). Performed By: #### 5 7021-8 ####CALE Roth ([id number])[facility] ([facility])[address]182 [place] [address] Neutrophils/100 WBC (Bld) 67.0 % Normal 40.0-80.0 [facility] Comment on above: Performed By: #### 5 7021-8 ####CALE Roth ([id number])[facility] ([facility])[address]69 [place] [address] Nucleated RBC/100 WBC (Bld) [Ratio] 0.0 /100 WBCs Normal 0.0-0.0 [facility] Comment on above: Performed By: #### 5 7021-8 ####CALE Roth ([id number])[facility] ([facility])[address]27 [place] [address] Platelets (Bld) [#/Vol] 237 x10*3/uL Normal 150-450 [facility] Comment on above: Performed By: #### 5 7021-8 ####CALE Roth ([id number])[facility] ([facility])[address]372 [place] [address] RBC (Bld) [#/Vol] 3.35 x10*6/uL Low 4.00-5.20 [facility] Comment on above: Performed By: #### 5 7021-8 ####CALE Roth ([id number])[facility] ([facility])[address]19 [place] [address] WBC (Bld) [#/Vol] 9.3 x10*3/uL Normal 4.4-11.3 [facility] Comment on above: Performed By: #### 5 7021-8 ####CALE Roth ([id number])[facility] ([facility])[address] [place] [address] CT HEAD WO IV CONTRASTon CT HEAD WO IV CONTRAST Normal [facility] Calcium.ionizedon 03-15-2025 Calcium.ionized (Bld) [Moles/Vol] 1.21 mmol/L Normal 1.1-1.33 [facility] Comment on above: Result Comment: The performance characteristics of ionized calcium testedin heparinized plasma or serum have been validated by [facility] site where testing is performed.Testing on heparinized plasma or serum is not approved bythe FDA; however, such approval is not necessary. Performed By: #### 1 994-3 ####CALE Roth ([id number])[facility] ([facility])[address]35 [place] [address] Carboxyhemoglobin (BldA) [Ma ss fraction]on 03-15-2025 Deoxyhemoglobin (BldA) [Mass fraction] 0.5 % Normal 0.0-5.0 [facility] Comment on above: Performed By: #### 2 030-5 ####CALE Roth ([id number])[facility] ([facility])[address]671 [place] [address] Methemoglobin (BldA) [Mass fraction] 1.0 % Normal 0.0-1.5 [facility] Comment on above: Performed By: #### 2 030-5 ####CALE Roth ([id number])[facility] ([facility])[address]350 [place] [address] Carboxyhemoglobin/Hemoglobin .totalon 03-15-2025 Carboxyhemoglobin (BldA) [Mass fraction] 0.5 % Normal [facility] Comment on above: Result Comment: Ref ValuesNon-Smokers 0.5-1.5%Smokers 0.5-10.0% Performed By: #### 2 030-5 ####CALE Roth ([id number])[facility] ([facility])[id number] [place] [address] Gason 03-15-2025 Hemoglobin (Bld) [Mass/Vol] 11.2 g/dL Low 12.0-16.0 [facility] Comment on above: Performed By: #### 9 3685-6 ####CALE Roth ([id number])[facility] ([facility])[address] [place] [id number] Performed By: #### 2 030-5 ####CALE Roth ([id number])[facility] ([facility])[address] [place] [address]28 Oxyhemoglobin (BldA) [Mass fraction] 98.0 % Normal 94.0-98.0 [facility] Comment on above: Performed By: #### 9 3685-6 ####CALE Roth ([id number])[facility] ([facility])[address] [place] [id number] Performed By: #### 2 030-5 ####CALE Roth ([id number])[facility] ([facility])[address] [place] [id number] Gas and Carbon monoxide and Electrolytes panel (BldA)on 03-15-2025 Anion gap 4 (BldA) [Moles/Vol] 7 mmo/L Low 10-25 [facility] Comment on above: Performed By: #### 9 3685-6 ####CALE Roth ([id number])[facility] ([facility])[id number] [place] [address] 65863 Base excess Calc (Bld) [Moles/Vol] -1.9000 mmol/L Normal -2.0-3.0 [facility] Comment on above: Performed By: #### 9 3685-6 ####CALE Roth ([id number])[facility] ([facility])[id number] [place] [address] 73882 Calcium.ionized (BldA) [Moles/Vol] 1.16 mmol/L Normal 1.10-1.33 [facility] Comment on above: Performed By: #### 9 3685-6 ####CALE Roth ([id number])[facility] ([facility])[address] [place] [address] Chloride (BldA) [Moles/Vol] 119 mmol/L High 98-107 [facility] Comment on above: Performed By: #### 9 3685-6 ####CALE Roth ([id number])[facility] ([facility])[id number] [place] [address] 90799 CO2 (Bld) [Partial pressure] 30 mm Hg Low 38-42 [facility] Comment on above: Performed By: #### 9 5445-6 ####CALE Roth ([id number])[facility] ([facility])[address] [place] [address] 15139 Glucose [Mass/Vol] 149 mg/dL High 74-99 [facility] Comment on above: Performed By: #### 9 2495-6 ####CALE Roth ([id number])[facility] ([facility])[id number] [place] [address] 30322 HCO3 (Bld) [Moles/Vol] 21.3 mmol/L Low 22.0-26.0 [facility] Comment on above: Performed By: #### 9 3685-6 ####CALE Roth ([id number])[facility] ([facility])[address] [place] [address] Hematocrit Est (Bld) [Volume fraction] 30.0 % Low 36.0-46.0 [facility] Comment on above: Performed By: #### 9 3685-6 ####CALE Roth ([id number])[facility] ([facility])[id number] [place] [address] 83598 Hemoglobin (Bld) [Mass/Vol] 10.0 g/dL Low 12.0-16.0 [facility] Comment on above: Performed By: #### 9 2785-6 ####CALE Roth (48557)[facility] ([facility])[address] [place] [address] Inhaled oxygen concentration 53 % Normal [facility] Comment on above: Performed By: #### 9 3685-6 ####CALE Roth ([id number])[facility] ([facility])[address]388 [place] [address] Lactate (BldA) [Moles/Vol] 1.0 mmol/L Normal 0.4-2.0 [facility] Comment on above: Performed By: #### 9 3685-6 ####CALE Roth ([id number])[facility] ([facility])[address] [place] [address] Oxygen (Bld) [Partial pressure] 262 mm Hg High 85-95 [facility] Comment on above: Performed By: #### 9 3685-6 ####CALE Roth ([id number])[facility] ([facility])[id number] [place] [address] 36396 Oxyhemoglobin (BldA) [Mass fraction] 97.5 % Normal 94.0-98.0 [facility] Comment on above: Performed By: #### 9 3685-6 ####CALE Roth ([id number])[facility] ([facility])[address] [place] [address] pH (Bld) 7.46 [pH] High 7.38-7.42 [facility] Comment on above: Performed By: #### 9 3685-6 ####CALE Roth ([id number])[facility] ([facility])[address]259 [place] [address] Potassium (BldA) [Moles/Vol] 3.5 mmol/L Normal 3.5-5.3 [facility] Comment on above: Performed By: #### 9 3685-6 ####CALE Roth ([id number])[facility] ([facility])[address] [place] [address] Sodium (BldA) [Moles/Vol] 144 mmol/L Normal 136-145 [facility] Comment on above: Performed By: #### 9 3685-6 ####CALE Roth ([id number])[facility] ([facility])[address]006 [place] [address] Anion gap 4 (BldA) [Moles/Vol] 11 mmo/L Normal 10-25 [facility] Comment on above: Performed By: #### 9 3685-6 ####CALE Roth ([id number])[facility] ([facility])[address] [place] [address] 78512 Base excess Calc (Bld) [Moles/Vol] -2.3000 mmol/L Low -2.0-3.0 [facility] Comment on above: Performed By: #### 9 3685-6 ####CALE Roth ([id number])[facility] ([facility])[address] [place] [address] 01929 Calcium.ionized (BldA) [Moles/Vol] 1.16 mmol/L Normal 1.10-1.33 [facility] Comment on above: Performed By: #### 9 3685-6 ####CALE Roth ([id number])[facility] ([facility])[address] [place] [address] 69905 Chloride (BldA) [Moles/Vol] 113 mmol/L High 98-107 [facility] Comment on above: Performed By: #### 9 3685-6 ####CALE Roth ([id number])[facility] ([facility])[address] [place] [address] 82389 CO2 (Bld) [Partial pressure] 29 mm Hg Low 38-42 [facility] Comment on above: Performed By: #### 9 3685-6 ####CALE Roth ([id number])[facility] ([facility])[address] [place] [address] 90043 Glucose [Mass/Vol] 211 mg/dL High 74-99 [facility] Comment on above: Performed By: #### 9 3685-6 ####CALE Roth ([id number])[facility] ([facility])[address] [place] [address] HCO3 (Bld) [Moles/Vol] 20.6 mmol/L Low 22.0-26.0 [facility] Comment on above: Performed By: #### 9 3685-6 ####CALE Roth ([id number])[facility] ([facility])[address]09 [place] [address] Hematocrit Est (Bld) [Volume fraction] 34.0 % Low 36.0-46.0 [facility] Comment on above: Performed By: #### 9 3685-6 ####CALE Roth ([id number])[facility] ([facility])16896 [place] [address] Inhaled oxygen concentration 46 % Normal [facility] Comment on above: Performed By: #### 9 3685-6 ####CALE Roth ([id number])[facility] ([facility])[address]143 [place] [address] Lactate (BldA) [Moles/Vol] 0.7 mmol/L Normal 0.4-2.0 [facility] Comment on above: Performed By: #### 9 3685-6 ####CALE Roth ([id number])[facility] ([facility])[address]22 [place] [address] Oxygen (Bld) [Partial pressure] 249 mm Hg High 85-95 [facility] Comment on above: Performed By: #### 9 3685-6 ####CALE Roth ([id number])[facility] ([facility])[address]661 [place] [address] pH (Bld) 7.46 [pH] High 7.38-7.42 [facility] Comment on above: Performed By: #### 9 3685-6 ####CALE Roth ([id number])[facility] ([facility])[address]13 [place] [address] Potassium (BldA) [Moles/Vol] 3.7 mmol/L Normal 3.5-5.3 [facility] Comment on above: Performed By: #### 9 3685-6 ####CALE Roth ([id number])[facility] ([facility])[address] [place] [address] 36476 Sodium (BldA) [Moles/Vol] 141 mmol/L Normal 136-145 [facility] Comment on above: Performed By: #### 9 3685-6 ####CALE Roth ([id number])[facility] ([facility])[address] [place] [address] 19431 Anion gap 4 (BldA) [Moles/Vol] 14 mmo/L Normal 10-25 [facility] Comment on above: Performed By: #### 9 3685-6 ####CALE Roth ([id number])[facility] ([facility])[address] [place] [address] 61525 Base excess Calc (Bld) [Moles/Vol] -2.5000 mmol/L Low -2.0-3.0 [facility] Comment on above: Performed By: #### 9 3685-6 ####CALE Roth (51281)[facility] ([facility])[address] [place] [address] 18882 Calcium.ionized (BldA) [Moles/Vol] 1.19 mmol/L Normal 1.10-1.33 [facility] Comment on above: Performed By: #### 9 3685-6 ####CALE Roth ([id number])[facility] ([facility])[address] [place] [address] 04941 Chloride (BldA) [Moles/Vol] 111 mmol/L High 98-107 [facility] Comment on above: Performed By: #### 9 3685-6 ####CALE Roth ([id number])[facility] ([facility])[address] [place] [address] 63305 CO2 (Bld) [Partial pressure] 31 mm Hg Low 38-42 [facility] Comment on above: Performed By: #### 9 3685-6 ####CALE Roth (71506)[facility] ([facility])[address]94 [place] [address] Glucose [Mass/Vol] 214 mg/dL High 74-99 [facility] Comment on above: Performed By: #### 9 3685-6 ####CALE Roth ([id number])[facility] ([facility])[address]04 [place] [address] HCO3 (Bld) [Moles/Vol] 21.1 mmol/L Low 22.0-26.0 [facility] Comment on above: Performed By: #### 9 3685-6 ####CALE Roth ([id number])[facility] ([facility])[address]86 [place] [address] Hematocrit Est (Bld) [Volume fraction] 28.0 % Low 36.0-46.0 [facility] Comment on above: Performed By: #### 9 3685-6 ####CALE Roth ([id number])[facility] ([facility])98201 [place] [address] Hemoglobin (Bld) [Mass/Vol] 9.3 g/dL Low 12.0-16.0 [facility] Comment on above: Performed By: #### 9 3685-6 ####CALE Roth ([id number])[facility] ([facility])41391 [place] [address] Inhaled oxygen concentration 48 % Normal [facility] Comment on above: Performed By: #### 9 3685-6 ####CALE Roth ([id number])[facility] ([facility])79832 [place] [address] Lactate (BldA) [Moles/Vol] 1.1 mmol/L Normal 0.4-2.0 [facility] Comment on above: Performed By: #### 9 3685-6 ####CALE Roth ([id number])[facility] ([facility])57250 [place] [address] Oxygen (Bld) [Partial pressure] 192 mm Hg High 85-95 [facility] Comment on above: Performed By: #### 9 3685-6 ####CALE Roth (88903)[facility] ([facility])[id number] [place] [address] 83383 Oxyhemoglobin (BldA) [Mass fraction] 98.4 % High 94.0-98.0 [facility] Comment on above: Performed By: #### 9 3685-6 ####CALE Roth ([id number])[facility] ([facility])[address] [place] [address] 61949 pH (Bld) 7.44 [pH] High 7.38-7.42 [facility] Comment on above: Performed By: #### 9 3685-6 ####CALE Roth ([id number])[facility] ([facility])[address] [place] [address] 65291 Potassium (BldA) [Moles/Vol] 3.8 mmol/L Normal 3.5-5.3 [facility] Comment on above: Performed By: #### 9 3685-6 ####CALE Roth (31005)[facility] ([facility])[address] [place] [address] 68690 Sodium (BldA) [Moles/Vol] 142 mmol/L Normal 136-145 [facility] Comment on above: Performed By: #### 9 3685-6 ####CALE Roth (13410)[facility] ([facility])[address] [place] [address] 57424 Anion gap 4 (BldA) [Moles/Vol] 10 mmo/L Normal 10-25 [facility] Comment on above: Performed By: #### 9 3685-6 ####CALE Roth ([id number])[facility] ([facility])[address] [place] [address] 83219 Base excess Calc (Bld) [Moles/Vol] 1.3 mmol/L Normal -2.0-3.0 [facility] Comment on above: Performed By: #### 9 3685-6 ####CALE Roth (35741)[facility] ([facility])[address]300 [place] [address] Calcium.ionized (BldA) [Moles/Vol] 1.23 mmol/L Normal 1.10-1.33 [facility] Comment on above: Performed By: #### 9 3685-6 ####CALE Roth (24390)[facility] ([facility])70315 [place] [address] Chloride (BldA) [Moles/Vol] 111 mmol/L High 98-107 [facility] Comment on above: Performed By: #### 9 3685-6 ####CALE Roth (24892)[facility] ([facility])28272 [place] [address] CO2 (Bld) [Partial pressure] 34 mm Hg Low 38-42 [facility] Comment on above: Performed By: #### 9 3685-6 ####CALE Roth ([id number])[facility] ([facility])34645 [place] [address] Glucose [Mass/Vol] 141 mg/dL High 74-99 [facility] Comment on above: Performed By: #### 9 3685-6 ####CALE Roth (49883)[facility] ([facility])86420 [place] [address] HCO3 (Bld) [Moles/Vol] 24.7 mmol/L Normal 22.0-26.0 [facility] Comment on above: Performed By: #### 9 3685-6 ####CALE Roth (33990)[facility] ([facility])31049 [place] [address] Hematocrit Est (Bld) [Volume fraction] 31.0 % Low 36.0-46.0 [facility] Comment on above: Performed By: #### 9 3685-6 ####CALE Roth ([id number])[facility] ([facility])73146 [place] [address] Hemoglobin (Bld) [Mass/Vol] 10.2 g/dL Low 12.0-16.0 [facility] Comment on above: Performed By: #### 9 3685-6 ####CALE Roth (38190)[facility] ([facility])26689 [place] [address] Inhaled oxygen concentration 97 % Normal [facility] Comment on above: Performed By: #### 9 3685-6 ####CALE Roth (06052)[facility] ([facility])19458 [place] [address] Lactate (BldA) [Moles/Vol] 0.6 mmol/L Normal 0.4-2.0 [facility] Comment on above: Performed By: #### 9 3685-6 ####CALE Roth ([id number])[facility] ([facility])[address] [place] [address] 59210 Oxygen (Bld) [Partial pressure] 477 mm Hg High 85-95 [facility] Comment on above: Performed By: #### 9 2985-6 ####CALE Roth ([id number])[facility] ([facility])67473 [place] [address] Oxyhemoglobin (BldA) [Mass fraction] 98.5 % High 94.0-98.0 [facility] Comment on above: Performed By: #### 9 3685-6 ####CALE Roth (21046)[facility] ([facility])94757 [place] [address] pH (Bld) 7.47 [pH] High 7.38-7.42 [facility] Comment on above: Performed By: #### 9 1505-6 ####CALE Roth (84138)[facility] ([facility])77576 [place] [address] Potassium (BldA) [Moles/Vol] 3.5 mmol/L Normal 3.5-5.3 [facility] Comment on above: Performed By: #### 9 3685-6 ####CALE Roth ([id number])[facility] ([facility])[address] [place] [address] 83770 Sodium (BldA) [Moles/Vol] 142 mmol/L Normal 136-145 [facility] Comment on above: Performed By: #### 9 3685-6 ####CALE Roth ([id number])[facility] ([facility])[id number] [place] [address] 47298 Anion gap 4 (BldA) [Moles/Vol] 13 mmo/L Normal 10-25 [facility] Comment on above: Performed By: #### 9 3685-6 ####CALE Roth ([id number])[facility] ([facility])[address] [place] [address] 00057 Base excess Calc (Bld) [Moles/Vol] 0.8 mmol/L Normal -2.0-3.0 [facility] Comment on above: Performed By: #### 9 3685-6 ####CALE Roth (93593)[facility] ([facility])[address] [place] [address] 19721 Calcium.ionized (BldA) [Moles/Vol] 1.24 mmol/L Normal 1.10-1.33 [facility] Comment on above: Performed By: #### 9 3685-6 ####CALE Roth ([id number])[facility] ([facility])[address] [place] [address] 80250 Chloride (BldA) [Moles/Vol] 107 mmol/L Normal 98-107 [facility] Comment on above: Performed By: #### 9 3685-6 ####CALE Roth ([id number])[facility] ([facility])[address] [place] [address] 94990 CO2 (Bld) [Partial pressure] 36 mm Hg Low 38-42 [facility] Comment on above: Performed By: #### 9 3685-6 ####CALE Roth (42730)[facility] ([facility])[address]157 [place] [address] Glucose [Mass/Vol] 125 mg/dL High 74-99 [facility] Comment on above: Performed By: #### 9 3685-6 ####CALE Roth (40862)[facility] ([facility])40615 [place] [address] HCO3 (Bld) [Moles/Vol] 25.0 mmol/L Normal 22.0-26.0 [facility] Comment on above: Performed By: #### 9 6935-6 ####CALE Roth ([id number])[facility] ([facility])[address] [place] [address] 58300 Hematocrit Est (Bld) [Volume fraction] 12.0 % Low 36.0-46.0 [facility] Comment on above: Performed By: #### 9 9435-6 ####CALE Roth ([id number])[facility] ([facility])[address] [place] [address] 50089 Hemoglobin (Bld) [Mass/Vol] 3.9 g/dL Critically low 12.0-16.0 [facility] Comment on above: Performed By: #### 9 0835-6 ####CALE Roth (79023)[facility] ([facility])23233 [place] [address] Inhaled oxygen concentration 97 % Normal [facility] Comment on above: Performed By: #### 9 9395-6 ####CALE Roth ([id number])[facility] ([facility])19248 [place] [address] Lactate (BldA) [Moles/Vol] 0.8 mmol/L Normal 0.4-2.0 [facility] Comment on above: Performed By: #### 9 9575-6 ####CALE Roth ([id number])[facility] ([facility])20719 [place] [address] Oxygen (Bld) [Partial pressure] 437 mm Hg High 85-95 [facility] Comment on above: Performed By: #### 9 3685-6 ####CALE Roth (65535)[facility] ([facility])[address] [place] [address] 86325 Oxyhemoglobin (BldA) [Mass fraction] 96.9 % Normal 94.0-98.0 [facility] Comment on above: Performed By: #### 9 3685-6 ####CALE Roth (85986)[facility] ([facility])[address] [place] [address] 11439 pH (Bld) 7.45 [pH] High 7.38-7.42 [facility] Comment on above: Performed By: #### 9 3685-6 ####CALE Roth ([id number])[facility] ([facility])[id number] [place] [address] 61631 Potassium (BldA) [Moles/Vol] 3.7 mmol/L Normal 3.5-5.3 [facility] Comment on above: Performed By: #### 9 3685-6 ####CALE Roth ([id number])[facility] ([facility])[address] [place] [address] 91434 Sodium (BldA) [Moles/Vol] 141 mmol/L Normal 136-145 [facility] Comment on above: Performed By: #### 9 3685-6 ####CALE Roth (20987)[facility] ([facility])[id number] [place] [address] 29981 Glucose Test strip manual (B ld) [Mass/Vol]on 03-15-2025 Glucose [Mass/Vol] 130 mg/dL High 74-99 [facility] Comment on above: Performed By: #### 2 341-6 ####CALE Roth (97096)[facility] ([facility])[address] [place] [address] 84677 Glucose [Mass/Vol] 114 mg/dL High 74-99 [facility] Comment on above: Performed By: #### 2 341-6 ####CALE Roth ([id number])[facility] ([facility])38916 [place] [address] Glucose [Mass/Vol] 130 mg/dL High 74-99 [facility] Comment on above: Performed By: #### 2 341-6 ####CALE Rtoh (52553)[facility] ([facility])63505 [place] [address] IR ANGIOGRAM CEREBRAL BILATE RALon 03-15-2025 IR ANGIOGRAM CEREBRAL BILATERAL Normal [facility] Magnesiumon 03-15-2025 Magnesium [Mass/Vol] 2.06 mg/dL Normal 1.60-2.40 [facility] Comment on above: Performed By: #### 1 9123-9 ####CALE Roth ([id number])[facility] ([facility])[address] [place] [address] Renal function 2000 panelon 03-15-2025 Albumin BCP dye [Mass/Vol] 3.7 g/dL Normal 3.4-5.0 [facility] Comment on above: Performed By: #### 2 4362-6 ####CALE Roth ([id number])[facility] ([facility])[address] [place] [address] Anion gap [Moles/Vol] 11 mmol/L Normal 10-20 [facility] Comment on above: Performed By: #### 2 4362-6 ####CALE Roth ([id number])[facility] ([facility])[address] [place] [address] Calcium [Mass/Vol] 8.6 mg/dL Normal 8.6-10.6 [facility] Comment on above: Performed By: #### 2 4362-6 ####CALE Roth ([id number])[facility] ([facility])[address] [place] [address] Chloride [Moles/Vol] 107 mmol/L Normal 98-107 [facility] Comment on above: Performed By: #### 2 4362-6 ####CALE Roth ([id number])[facility] ([facility])[address] [place] [address] CO2 [Moles/Vol] 28 mmol/L Normal 21-32 [facility] Comment on above: Performed By: #### 2 4362-6 ####CALE Roth ([id number])[facility] ([facility])[address] [place], [place] [address] Creatinine [Mass/Vol] 0.45 mg/dL Low 0.50-1.05 [facility] Comment on above: Performed By: #### 2 4362-6 ####CALE Roth ([id number])[facility] ([facility])[address] [place] [address] Glomerular filtration rate >90 Normal >60 [facility] Comment on above: Result Comment: Calc ulations of estimated GFR are performed using the 2020 CKD-EPI Study Refit equation without the race variable for the IDMS-Traceable creatinine methods.https://jasn.asnjournals.org/content/early/ASN .8943155283 Performed By: #### 2 4362-6 ####CALE Roth ([id number])[facility] ([facility])[address] [place] [address] Glucose [Mass/Vol] 123 mg/dL High 74-99 [facility] Comment on above: Performed By: #### 2 4362-6 ####CALE Roth ([id number])[facility] ([facility])[address] [place] [address] Phosphate [Mass/Vol] 3.0 mg/dL Normal 2.5-4.9 [facility] Comment on above: Performed By: #### 2 4362-6 ####CALE Roth ([id number])[facility] ([facility])[address] [place] [address] Potassium [Moles/Vol] 3.6 mmol/L Normal 3.5-5.3 [facility] Comment on above: Performed By: #### 2 4362-6 ####CALE Roth ([id number])[facility] ([facility])[address] [place] [address] Sodium [Moles/Vol] 142 mmol/L Normal 136-145 [facility] Comment on above: Performed By: #### 2 4362-6 ####CALE Roth ([id number])[facility] ([facility])[address] [place] [address] Urea nitrogen [Mass/Vol] 14 mg/dL Normal 6-23 [facility] Comment on above: Performed By: #### 2 4362-6 ####CALE Roth ([id number])[facility] ([facility])[address] [place] [address] Sodiumon 03-15-2025 Sodium [Moles/Vol] 143 mmol/L Normal 136-145 [facility] Comment on above: Performed By: #### 2 951-2 ####CALE Roth ([id number])[facility] ([facility])[address] [place] [address] Surgical pathology studyon 0 03-15-2025 Surgical pathology study [facility] Comment on above: Order Comment: 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 Comment on above: Performed By: #### 3 4532-2 ####CALE Roth ([id number])[facility] ([facility])[address] [place] [address] Blood group antibody screen Ql Negative [facility] Comment on above: Performed By: #### 3 4532-2 ####CALE Roth ([id number])[facility] ([facility])[address] [place] [address] D Ag Ql (Bld) Positive Normal [facility] Comment on above: Performed By: #### 3 4532-2 ####CALE Roth ([id number])[facility] ([facility])[id number] [place] [address] CBC panel Auto (Bld)on 03-14 Erythrocyte distribution width (RBC) [Ratio] 11.7 % Normal 11.5-14.5 [facility] Comment on above: Performed By: #### 5 8410-2 ####CALE Roth ([id number])[facility] ([facility])[address] [place] [address] Hematocrit (Bld) [Volume fraction] 31.2 % Low 36.0-46.0 [facility] Comment on above: Performed By: #### 5 8410-2 ####CALE Roth ([id number])[facility] ([facility])[address] [place] [address] Hemoglobin (Bld) [Mass/Vol] 11.0 g/dL Low 12.0-16.0 [facility] Comment on above: Performed By: #### 5 8410-2 ####CALE Roth ([id number])[facility] ([facility])[address] [place] [address] MCH (RBC) [Entitic mass] 29.6 pg Normal 26.0-34.0 [facility] Comment on above: Performed By: #### 5 8410-2 ####CALE Roth ([id number])[facility] ([facility])[address] [place] [address] MCHC (RBC) [Mass/Vol] 35.3 g/dL Normal 32.0-36.0 [facility] Comment on above: Performed By: #### 5 8410-2 ####CALE Roht ([id number])[facility] ([facility])[address] [place] [address] MCV (RBC) [Entitic vol] 84 fL Normal 80-100 [facility] Comment on above: Performed By: #### 5 8410-2 ####CALE Roth ([id number])[facility] ([facility])[address] [place] [address] Nucleated RBC/100 WBC (Bld) [Ratio] 0.0 /100 WBCs Normal 0.0-0.0 [facility] Comment on above: Performed By: #### 5 8410-2 ####CALE Roth ([id number])[facility] ([facility])[address] [place] [address] Platelets (Bld) [#/Vol] 262 x10*3/uL Normal 150-450 [facility] Comment on above: Performed By: #### 5 8410-2 ####CALE Roth ([id number])[facility] ([facility])[address] [place] [address] RBC (Bld) [#/Vol] 3.71 x10*6/uL Low 4.00-5.20 [facility] Comment on above: Performed By: #### 5 8410-2 ####CALE Roth ([id number])[facility] ([facility])[address] [place] [address] WBC (Bld) [#/Vol] 11.3 x10*3/uL Normal 4.4-11.3 [facility] Comment on above: Performed By: #### 5 8410-2 ####CALE Roth ([id number])[facility] ([facility])[address] [place] [address] CT ANGIO HEAD AND NECK W AND WO IV CONTRASTon 03-14-2025 CT ANGIO HEAD AND NECK W AND WO IV CONTRAST Normal [facility] CT HEAD WO IV CONTRASTon CT HEAD WO IV CONTRAST Normal [facility] Calcium.ionizedon 03-14-2025 Calcium.ionized (Bld) [Moles/Vol] 1.19 mmol/L Normal 1.1-1.33 [facility] Comment on above: Result Comment: The performance characteristics of ionized calcium testedin heparinized plasma or serum have been validated by theindividual [facility] laboratory site where testing is performed.Testing on heparinized plasma or serum is not approved bythe FDA; however, such approval is not necessary. Performed By: #### 1 994-3 ####CALE Roth ([id number])[facility] ([facility])[address] [place] [address] Choriogonadotropin.beta subu niton 03-14-2025 HCG.beta subunit Qn m[IU]/mL Normal <5 [facility] Comment on above: Order Comment: Total HCG measurement is performed using the Siemens Atellica immunoassay which detects intact HCG and free beta HCG subunit. This test is not indicated for use as a tumor marker. HCG testing is performed using a different test methodology at [facility] than other [facility]. Direct result comparison should only be made within the same method. Performed By: #### 2 1198-7 ####CALE Roth ([id number])[facility] ([facility])[address] [place] [address] Glucose Test strip manual (B ld) [Mass/Vol]on 03-14-2025 Glucose [Mass/Vol] 133 mg/dL High [address] [place] [address] Comment on above: Performed By: #### 2 341-6 ####CALE Roth ([id number])[facility] ([facility])[address] [place] [address] Glucose [Mass/Vol] 100 mg/dL High [address] [place] [address] Comment on above: Performed By: #### 2 341-6 ####CALE Roth ([id number])[facility] ([facility])[address]759 [place] [address] Glucose [Mass/Vol] 135 mg/dL High [address] [place] [address] Comment on above: Performed By: #### 2 341-6 ####CALE Roth ([id number])[facility] ([facility])[address] [place] [address] Glucose [Mass/Vol] 133 mg/dL High [address] [place] [address] Comment on above: Performed By: #### 2 341-6 ####CALE Roth ([id number])[facility] ([facility])[address] [place] [address] Glucose [Mass/Vol] 154 mg/dL High 74-99 [facility] Comment on above: Performed By: #### 2 341-6 ####CALE Roth ([id number])[facility] ([facility])[address] [place] [address] MR BRAIN W AND WO IV CONTRAS Ton 03-14-2025 MR BRAIN W AND WO IV CONTRAST Normal [facility] Comment on above: Order Comment: Only need diffusion, FLAIR, T1 pre and T1 post dale Magnesiumon 03-14-2025 Magnesium [Mass/Vol] 2.24 mg/dL Normal 1.60-2.40 [facility] Comment on above: Performed By: #### 1 9123-9 ####CALE Roth ([id number])[facility] ([facility])[address] [place] [address] PT and aPTT panel Coag (PPP) on 03-14-2025 aPTT Coag (PPP) [Time] 23 s Low 26-36 [facility] Comment on above: Order Comment: The A PTT is no longer used for monitoring Unfractionated Heparin Therapy. For monitoring Heparin Therapy, use the Heparin Assay. Performed By: #### 3 4529-8 ####CALE Roth ([id number])[facility] ([facility])[address] [place] [address] INR Coag (PPP) [Relative time] 1.2 High 0.9-1.1 [facility] Comment on above: Order Comment: The A PTT is no longer used for monitoring Unfractionated Heparin Therapy. For monitoring Heparin Therapy, use the Heparin Assay. Performed By: #### 3 4529-8 ####CALE Roth ([id number])[facility] ([facility])[address] [place] [address] PT Coag (PPP) [Time] 13.1 s High 9.8-12.4 [facility] Comment on above: Order Comment: The A PTT is no longer used for monitoring Unfractionated Heparin Therapy. For monitoring Heparin Therapy, use the Heparin Assay. Performed By: #### 3 4529-8 ####CALE Rtoh ([id number])[facility] ([facility])[address] [place] [address] Renal function 2000 panelon 03-14-2025 Albumin BCP dye [Mass/Vol] 4.0 g/dL Normal 3.4-5.0 [facility] Comment on above: Performed By: #### 2 4362-6 ####CALE Roth ([id number])[facility] ([facility])[address] [place] [address] Anion gap [Moles/Vol] 12 mmol/L Normal 10-20 [facility] Comment on above: Performed By: #### 2 4362-6 ####CALE Roth ([id number])[facility] ([facility])[address] [place] [address] Calcium [Mass/Vol] 8.9 mg/dL Normal 8.6-10.6 [facility] Comment on above: Performed By: #### 2 4362-6 ####CALE Roth ([id number])[facility] ([facility])[address] [place] [address] Chloride [Moles/Vol] 104 mmol/L Normal 98-107 [facility] Comment on above: Performed By: #### 2 4362-6 ####CALE CAI L ([id number])[facility] ([facility])[address] [place] [address] CO2 [Moles/Vol] 28 mmol/L Normal 21-32 [facility] Comment on above: Performed By: #### 2 4362-6 ####CALE Roth ([id number])[facility] ([facility])[address]606 [place] [address] Creatinine [Mass/Vol] 0.49 mg/dL Low 0.50-1.05 [facility] Comment on above: Performed By: #### 2 4362-6 ####CALE Roth ([id number])[facility] ([facility])[address] [place] [address] Glomerular filtration rate >90 Normal >60 [facility] Comment on above: Result Comment: Calc ulations of estimated GFR are performed using the 2020 CKD-EPI Study Refit equation without the race variable for the IDMS-Traceable creatinine methods.https://jasn.asnjournals.org/content/early/ASN .4288778143 Performed By: #### 2 4362-6 ####CALE Roth ([id number])[facility] ([facility])[address]398 [place] [address] Glucose [Mass/Vol] 168 mg/dL High 74-99 [facility] Comment on above: Performed By: #### 2 4362-6 ####CALE Roth ([id number])[facility] ([facility])[address]13 [place] [address] Phosphate [Mass/Vol] 2.8 mg/dL Normal 2.5-4.9 [facility] Comment on above: Performed By: #### 2 4362-6 ####CALE CAI L ([id number])[facility] ([facility])[address]70 [place] [address] Potassium [Moles/Vol] 3.6 mmol/L Normal 3.5-5.3 [facility] Comment on above: Performed By: #### 2 4362-6 ####CALE CAI L ([id number])[facility] ([facility])[address] [place] [address] Sodium [Moles/Vol] 140 mmol/L Normal 136-145 [facility] Comment on above: Performed By: #### 2 4362-6 ####CALE CAI L ([id number])[facility] ([facility])[address]305 [place] [address] Urea nitrogen [Mass/Vol] 19 mg/dL Normal 6-23 [facility] Comment on above: Performed By: #### 2 4362-6 ####CALE Roth ([id number])[facility] ([facility])[address]64 [place] [address] Sodiumon 03-14-2025 Sodium [Moles/Vol] 141 mmol/L Normal 136-145 [facility] Comment on above: Performed By: #### 2 951-2 ####CALE Roth ([id number])[facility] ([facility])[address]649 [place] [address] Sodium [Moles/Vol] 142 mmol/L Normal 136-145 [facility] Comment on above: Performed By: #### 2 951-2 ####CALE Roth ([id number])[facility] ([facility])[address] [place] [address] Sodium [Moles/Vol] 146 mmol/L High 136-145 [facility] Comment on above: Performed By: #### 2 951-2 ####CALE Roth ([id number])[facility] ([facility])[address] [place] [address] Sodium [Moles/Vol] 139 mmol/L Normal 136-145 [facility] Comment on above: Performed By: #### 2 951-2 ####CALE oRth ([id number])[facility] ([facility])[address]28 [place] [address] Urinalysis complete W Reflex Culture panel (U)on 03-14-2025 Appearance (U) Clear Normal Clear [facility] Comment on above: Performed By: #### 5 8077-9 ####CALE Roth ([id number])[facility] ([facility])[address] [place] [address] Bilirubin (U) [Mass/Vol] Negative Normal NEGATIVE [facility] Comment on above: Performed By: #### 5 8077-9 ####CALE CAI L ([id number])[facility] ([facility])[address]98 [place] [address] Color (U) Light-Yellow Normal Light-Yello w, Yellow, Dark-Yellow [facility] Comment on above: Performed By: #### 5 8077-9 ####CALE CAI L ([id number])[facility] ([facility])[address]64 [place] [address] Glucose Auto test strip (U) [Mass/Vol] Normal Normal Normal [facility] Comment on above: Performed By: #### 5 8077-9 ####CALE RUTLEDGEER L ([id number])[facility] ([facility])[address]443 [place] [address] Ketones (U) [Mass/Vol] Negative Normal NEGATIVE [facility] Comment on above: Performed By: #### 5 8077-9 ####CALE CAI L ([id number])[facility] ([facility])[address] [place] [address] Leukocyte esterase Auto test strip Ql (U) Negative Normal NEGATIVE [facility] Comment on above: Performed By: #### 5 8077-9 ####CALE TOSCANOMOISAURA L ([id number])[facility] ([facility])[address]231 [place] [address] Mucus Auto (Urine sed) [#/Area] FEW Normal Reference range not established . [facility] Comment on above: Performed By: #### 5 8077-9 ####CALE CAI L ([id number])[facility] ([facility])[address]376 [place] [address] Nitrite Auto test strip Ql (U) Negative Normal NEGATIVE [facility] Comment on above: Performed By: #### 5 8077-9 ####CALE TOSCANOMOBALJITER L ([id number])[facility] ([facility])[address]12 [place] [address] pH (U) 7.0 [pH] Normal 5.0, 5.5, 6.0, 6.5, 7.0, 7.5, 8.0 [facility] Comment on above: Performed By: #### 5 8077-9 ####CALE Roth ([id number])[facility] ([facility])[address] [place] [address] Protein (U) [Mass/Vol] 10 (TRACE) Normal NEGATIVE, 10 (TRACE), 20 (TRACE) [facility] Comment on above: Performed By: #### 5 8077-9 ####CALE Roth ([id number])[facility] ([facility])[address] [place] [address] RBC (U) [#/Vol] 0.5 (2+) Abnormal NEGATIVE [facility] Comment on above: Performed By: #### 5 8077-9 ####CALE Roth ([id number])[facility] ([facility])[address] [place] [address] RBC Auto (Urine sed) [#/Area] >20 Abnormal NONE, 1-2, 3-5 [facility] Comment on above: Performed By: #### 5 8077-9 ####CALE Roth ([id number])[facility] ([facility])[address] [place] [address] Specific gravity (U) [Rel density] 1.016 Normal 1.005-1.035 [facility] Comment on above: Performed By: #### 5 8077-9 ####CALE Roth (23201)[facility] ([facility])[address] [place] [address] Urobilinogen (U) [Mass/Vol] Normal Normal Normal [facility] Comment on above: Performed By: #### 5 8077-9 ####CALE Roth ([id number])[facility] ([facility])[address] [place] [address] WBC Auto (Urine sed) [#/Area] 1-5 Normal 1-5, NONE [facility] Comment on above: Performed By: #### 5 8077-9 ####ACLE Roth ([id number])[facility] ([facility])[address]41 [place] [address] XR CHEST 1 VIEWon 03-14-2025 XR CHEST 1 VIEW Normal [facility] CBC panel Auto (Bld)on 03-13 Erythrocyte distribution width (RBC) [Ratio] 11.7 % Normal 11.5-14.5 [facility] Comment on above: Performed By: #### 5 8410-2 ####CALE Roth ([id number])[facility] ([facility])[address] [place] [address] Hematocrit (Bld) [Volume fraction] 35.1 % Low 36.0-46.0 [facility] Comment on above: Performed By: #### 5 8410-2 ####CALE Roth ([id number])[facility] ([facility])[address] [place] [address] Hemoglobin (Bld) [Mass/Vol] 11.6 g/dL Low 12.0-16.0 [facility] Comment on above: Performed By: #### 5 8410-2 ####CALE Roth ([id number])[facility] ([facility])[address] [place] [address] MCH (RBC) [Entitic mass] 29.3 pg Normal 26.0-34.0 [facility] Comment on above: Performed By: #### 5 8410-2 ####CALE Roth ([id number])[facility] ([facility])[address] [place] [address] MCHC (RBC) [Mass/Vol] 33.0 g/dL Normal 32.0-36.0 [facility] Comment on above: Performed By: #### 5 8410-2 ####CALE Roth ([id number])[facility] ([facility])[address] [place] [address] MCV (RBC) [Entitic vol] 89 fL Normal 80-100 [facility] Comment on above: Performed By: #### 5 8410-2 ####CALE Roth ([id number])[facility] ([facility])[address] [place] [address] Nucleated RBC/100 WBC (Bld) [Ratio] 0.0 /100 WBCs Normal 0.0-0.0 [facility] Comment on above: Performed By: #### 5 8410-2 ####CALE Roth ([id number])[facility] ([facility])[address] [place] [address] Platelets (Bld) [#/Vol] 262 x10*3/uL Normal 150-450 [facility] Comment on above: Performed By: #### 5 8410-2 ####CALE Roth ([id number])[facility] ([facility])[address]179 [place] [address] RBC (Bld) [#/Vol] 3.96 x10*6/uL Low 4.00-5.20 [facility] Comment on above: Performed By: #### 5 8410-2 ####CALE Roth ([id number])[facility] ([facility])[address]44 [place] [address] WBC (Bld) [#/Vol] 9.5 x10*3/uL Normal 4.4-11.3 [facility] Comment on above: Performed By: #### 5 8410-2 ####CALE Roth ([id number])[facility] ([facility])[address] [place] [address] CT HEAD WO IV CONTRASTon CT HEAD WO IV CONTRAST Normal [facility] CT HEAD WO IV CONTRAST Normal [facility] Calcium.ionizedon 03-13-2025 Calcium.ionized (Bld) [Moles/Vol] 1.21 mmol/L Normal 1.1-1.33 [facility] Comment on above: Result Comment: The performance characteristics of ionized calcium testedin heparinized plasma or serum have been validated [facility] where testing is performed.Testing on heparinized plasma or serum is not approved [facility] FDA; however, such approval is not necessary. Performed By: #### 1 994-3 ####CALE CAI L ([id number])[facility] ([facility])[address] [place] [address] Glucose Test strip manual (B ld) [Mass/Vol]on 03-13-2025 Glucose [Mass/Vol] 180 mg/dL High [address] [place] [address] Comment on above: Performed By: #### 2 341-6 ####CALE PARKERTZGONZALEZ L ([id number])[facility] ([facility])[address] [place] [address] Glucose [Mass/Vol] 146 mg/dL High [address] [place] [address] Comment on above: Performed By: #### 2 341-6 ####CALE CAI L ([id number])[facility] ([facility])[address] [place] [address] Glucose [Mass/Vol] 182 mg/dL High [address] [place] [address] Comment on above: Performed By: #### 2 341-6 ####CALE PARKERTZGONZALEZ L ([id number])[facility] ([facility])[address] [place] [address] Glucose [Mass/Vol] 159 mg/dL High [address] [place] [address] Comment on above: Performed By: #### 2 341-6 ####CALE TOSCANOMOTZER L ([id number])[facility] ([facility])[address] [place] [address] Glucose [Mass/Vol] 153 mg/dL High [address] [place] [address] Comment on above: Performed By: #### 2 341-6 ####CALE PARKERTZGONZALEZ L ([id number])[facility] ([facility])[address] [place] [address] Glucose [Mass/Vol] 129 mg/dL High [address] [place] [address] Comment on above: Performed By: #### 2 341-6 ####CALE TOSCANOMOTZER L (23401)[facility] ([facility])[address] [place] [address] Glucose [Mass/Vol] 155 mg/dL High 74-99 [facility] Comment on above: Performed By: #### 2 341-6 ####CALE Roth (25805)[facility] ([facility])[address] [place] [address] Magnesiumon 03-13-2025 Magnesium [Mass/Vol] 2.32 mg/dL Normal 1.60-2.40 [facility] Comment on above: Performed By: #### 1 9123-9 ####CALE Roth ([id number])[facility] ([facility])[address] [place] [address] Procalcitoninon 03-13-2025 Procalcitonin [Mass/Vol] 0.03 ng/mL Normal <=0.07 [facility] Comment on above: Order Comment: Proca [...] By: #### 3 3959-8 ####CALE CAI L ([id number])[facility] ([facility])[address] [place] [address] Renal function 2000 panelon 03-13-2025 Albumin BCP dye [Mass/Vol] 4.1 g/dL Normal 3.4-5.0 [facility] Comment on above: Performed By: #### 2 4362-6 ####CALE Roth ([id number])[facility] ([facility])[address] [place] [address] Anion gap [Moles/Vol] 16 mmol/L Normal 10-20 [facility] Comment on above: Performed By: #### 2 4362-6 ####CALE Roth ([id number])[facility] ([facility])[address] [place] [address] Calcium [Mass/Vol] 9.1 mg/dL Normal 8.6-10.6 [facility] Comment on above: Performed By: #### 2 4362-6 ####CALE Roth ([id number])[facility] ([facility])[address] [place] [address] Chloride [Moles/Vol] 106 mmol/L Normal 98-107 [facility] Comment on above: Performed By: #### 2 4362-6 ####CALE Roth (35120)[facility] ([facility])[address] [place] [address] CO2 [Moles/Vol] 25 mmol/L Normal 21-32 [facility] Comment on above: Performed By: #### 2 4362-6 ####CALE Roth ([id number])[facility] ([facility])[address] [place] [address] Creatinine [Mass/Vol] 0.44 mg/dL Low 0.50-1.05 [facility] Comment on above: Performed By: #### 2 4362-6 ####CALE Roth ([id number])[facility] ([facility])[address]184 [place] [address] Glomerular filtration rate >90 Normal >60 [facility] Comment on above: Result Comment: Calc ulations of estimated GFR are performed using the 2020 CKD-EPI Study Refit equation without the race variable for the IDMS-Traceable creatinine methods.https://jasn.asnjournals.org/content/early/ASN .5374749756 Performed By: #### 2 4362-6 ####CALE Roth (87705)[facility] ([facility])[address] [place] [address] Glucose [Mass/Vol] 154 mg/dL High 74-99 [facility] Comment on above: Performed By: #### 2 4362-6 ####CALE Roth (50192)[facility] ([facility])[address] [place] [address] Phosphate [Mass/Vol] 2.9 mg/dL Normal 2.5-4.9 [facility] Comment on above: Performed By: #### 2 4362-6 ####CALE Roth ([id number])[facility] ([facility])[address] [place] [address] Potassium [Moles/Vol] 3.8 mmol/L Normal 3.5-5.3 [facility] Comment on above: Performed By: #### 2 4362-6 ####CALE Roth (25413)[facility] ([facility])[address]65 [place] [address] Urea nitrogen [Mass/Vol] 18 mg/dL Normal 6-23 [facility] Comment on above: Performed By: #### 2 4362-6 ####CALE Roth (46687)[facility] ([facility])[address]39 [place] [address] Sodiumon 03-13-2025 Sodium [Moles/Vol] 141 mmol/L Normal 136-145 [facility] Comment on above: Performed By: #### 2 951-2 ####CALE Roth ([id number])[facility] ([facility])[address]357 [place] [address] Sodium [Moles/Vol] 139 mmol/L Normal 136-145 [facility] Comment on above: Performed By: #### 2 951-2 ####CALE Roth (45375)[facility] ([facility])[address] [place] [address] Sodium [Moles/Vol] 143 mmol/L Normal 136-145 [facility] Comment on above: Performed By: #### 2 951-2 ####CALE Roth ([id number])[facility] ([facility])[address] [place] [address] Performed By: #### 2 4362-6 ####CALE Roth ([id number])[facility] ([facility])[address] [place] [address] CBC panel Auto (Bld)on 03-12 Erythrocyte distribution width (RBC) [Ratio] 11.6 % Normal 11.5-14.5 [facility] Comment on above: Performed By: #### 5 8410-2 ####CALE Roth ([id number])[facility] ([facility])[address] [place] [address] Hematocrit (Bld) [Volume fraction] 32.0 % Low 36.0-46.0 [facility] Comment on above: Performed By: #### 5 8410-2 ####CALE Roth ([id number])[facility] ([facility])[address] [place] [address] Hemoglobin (Bld) [Mass/Vol] 10.9 g/dL Low 12.0-16.0 [facility] Comment on above: Performed By: #### 5 8410-2 ####CALE Roth ([id number])[facility] ([facility])[address] [place] [address] MCH (RBC) [Entitic mass] 29.9 pg Normal 26.0-34.0 [facility] Comment on above: Performed By: #### 5 8410-2 ####CALE Roth ([id number])[facility] ([facility])[address]49 [place] [address] MCHC (RBC) [Mass/Vol] 34.1 g/dL Normal 32.0-36.0 [facility] Comment on above: Performed By: #### 5 8410-2 ####CALE Roth (26089)[facility] ([facility])[address]992 [place] [address] MCV (RBC) [Entitic vol] 88 fL Normal 80-100 [facility] Comment on above: Performed By: #### 5 8410-2 ####CALE Roth ([id number])[facility] ([facility])[address]84 [place] [address] Nucleated RBC/100 WBC (Bld) [Ratio] 0.0 /100 WBCs Normal 0.0-0.0 [facility] Comment on above: Performed By: #### 5 8410-2 ####CALE Roth ([id number])[facility] ([facility])[address]63 [place] [address] Platelets (Bld) [#/Vol] 233 x10*3/uL Normal 150-450 [facility] Comment on above: Performed By: #### 5 8410-2 ####CALE Roth ([id number])[facility] ([facility])[address]172 [place] [address] RBC (Bld) [#/Vol] 3.64 x10*6/uL Low 4.00-5.20 [facility] Comment on above: Performed By: #### 5 8410-2 ####CALE Roth ([id number])[facility] ([facility])[address]99 [place] [address] WBC (Bld) [#/Vol] 8.0 x10*3/uL Normal 4.4-11.3 [facility] Comment on above: Performed By: #### 5 8410-2 ####CALE Roth ([id number])[facility] ([facility])[address] [place] [address] Calcium.ionizedon 03-12-2025 Calcium.ionized (Bld) [Moles/Vol] 1.20 mmol/L Normal 1.1-1.33 [facility] Comment on above: Result Comment: The performance characteristics of ionized calcium testedin heparinized plasma or serum have been validated by [facility] site where testing is performed.Testing on heparinized plasma or serum is not approved bythe FDA; however, such approval is not necessary. Performed By: #### 1 994-3 ####CALE Roth ([id number])[facility] ([facility])[address]117 [place] [address] Glucose Test strip manual (B ld) [Mass/Vol]on 03-12-2025 Glucose [Mass/Vol] 153 mg/dL High [address] [place] [address] Comment on above: Performed By: #### 2 341-6 ####CALE Roth ([id number])[facility] ([facility])[address]45 [place] [address] Glucose [Mass/Vol] 141 mg/dL High [address] [place] [address] Comment on above: Performed By: #### 2 341-6 ####CALE Roth ([id number])[facility] ([facility])[address]690 [place] [address] Glucose [Mass/Vol] 155 mg/dL High [address] [place] [address] Comment on above: Performed By: #### 2 341-6 ####CALE Roth ([id number])[facility] ([facility])[address]73 [place] [address] Glucose [Mass/Vol] 135 mg/dL High [address] [place] [address] Comment on above: Performed By: #### 2 341-6 ####CALE Roth ([id number])[facility] ([facility])[address]16 [place] [address] Glucose [Mass/Vol] 158 mg/dL High [address] [place] [address] Comment on above: Performed By: #### 2 341-6 ####CALE Roth ([id number])[facility] ([facility])[address]009 [place] [address] Magnesiumon 03-12-2025 Magnesium [Mass/Vol] 2.22 mg/dL Normal 1.60-2.40 [facility] Comment on above: Performed By: #### 1 9123-9 ####CALE Roth ([id number])[facility] ([facility])[address] [place] [address] Renal function 2000 panelon 03-12-2025 Albumin BCP dye [Mass/Vol] 3.8 g/dL Normal 3.4-5.0 [facility] Comment on above: Performed By: #### 2 4362-6 ####CALE Roth ([id number])[facility] ([facility])[address] [place] [address] Anion gap [Moles/Vol] 9 mmol/L Low 10-20 [facility] Comment on above: Performed By: #### 2 4362-6 ####CALE Roth ([id number])[facility] ([facility])[address]782 [place] [address] Calcium [Mass/Vol] 8.9 mg/dL Normal 8.6-10.6 [facility] Comment on above: Performed By: #### 2 4362-6 ####CALE Roth ([id number])[facility] ([facility])[address] [place] [address] Chloride [Moles/Vol] 105 mmol/L Normal 98-107 [facility] Comment on above: Performed By: #### 2 4362-6 ####CALE Roth ([id number])[facility] ([facility])[address]84 [place] [address] CO2 [Moles/Vol] 31 mmol/L Normal 21-32 [facility] Comment on above: Performed By: #### 2 4362-6 ####CALE Roth ([id number])[facility] ([facility])[address]27 [place] [address] Creatinine [Mass/Vol] 0.42 mg/dL Low 0.50-1.05 [facility] Comment on above: Performed By: #### 2 4362-6 ####CALE Roth ([id number])[facility] ([facility])[address]88 [place] [address] Glomerular filtration rate >90 Normal >60 [facility] Comment on above: Result Comment: Calc ulations of estimated GFR are performed using the 2020 CKD-EPI Study Refit equation without the race variable for the IDMS-Traceable creatinine methods.https://jasn.asnjournals.org/content/early/ASN .[id number] Performed By: #### 2 4362-6 ####CALE Roth ([id number])[facility] ([facility])[address]35 [place] [address] Glucose [Mass/Vol] 147 mg/dL High 74-99 [facility] Comment on above: Performed By: #### 2 4362-6 ####CALE CAI L (66007)[facility] ([facility])[address]954 [place] [address] Phosphate [Mass/Vol] 3.8 mg/dL Normal 2.5-4.9 [facility] Comment on above: Performed By: #### 2 4362-6 ####CALE CAI L (21458)[facility] ([facility])[address]203 [place] [address] Potassium [Moles/Vol] 3.4 mmol/L Low 3.5-5.3 [facility] Comment on above: Performed By: #### 2 4362-6 ####CALE CAI L (75391)[facility] ([facility])[address]37 [place] [address] Urea nitrogen [Mass/Vol] 18 mg/dL Normal 6-23 [facility] Comment on above: Performed By: #### 2 4362-6 ####CALE Roth ([id number])[facility] ([facility])[address]69 [place] [address] Sodiumon 03-12-2025 Sodium [Moles/Vol] 145 mmol/L Normal 136-145 [facility] Comment on above: Performed By: #### 2 951-2 ####CALE Roth (77777)[facility] ([facility])[address]43 [place] [address] Sodium [Moles/Vol] 139 mmol/L Normal 136-145 [facility] Comment on above: Performed By: #### 2 951-2 ####CALE Roth ([id number])[facility] ([facility])[address] [facility] [place] [address] Sodium [Moles/Vol] 141 mmol/L Normal 136-145 [facility] Comment on above: Performed By: #### 2 951-2 ####CALE Roth ([id number])[facility] ([facility])[address] [facility] [place] [address] Sodium [Moles/Vol] 142 mmol/L Normal 136-145 [facility] Comment on above: Performed By: #### 2 951-2 ####CALE Roth ([id number])[facility] ([facility])[address] [facility] [place] [address] Performed By: #### 2 4362-6 ####CALE Roth ([id number])[facility] ([facility])[address] [place] [address] VASC US UPPER EXTREMITY VENO US DUPLEX BILATERALon 03-12-2025 VASC US UPPER EXTREMITY VENOUS DUPLEX BILATERAL Normal [facility] CBC panel Auto (Bld)on 03-11 Erythrocyte distribution width (RBC) [Ratio] 11.5 % Normal 11.5-14.5 [facility] Comment on above: Performed By: #### 5 8410-2 ####CALE Roth ([id number])[facility] ([facility])[address]854 [place] [address] Hematocrit (Bld) [Volume fraction] 30.3 % Low 36.0-46.0 [facility] Comment on above: Performed By: #### 5 8410-2 ####CALE Roth (14251)[facility] ([facility])19591 [place] [address] Hemoglobin (Bld) [Mass/Vol] 10.9 g/dL Low 12.0-16.0 [facility] Comment on above: Performed By: #### 5 8410-2 ####CALE Roth ([id number])[facility] ([facility])[address] [place] [address] MCH (RBC) [Entitic mass] 30.0 pg Normal 26.0-34.0 [facility] Comment on above: Performed By: #### 5 8410-2 ####CALE Roth ([id number])[facility] ([facility])[address] [place] [address] MCHC (RBC) [Mass/Vol] 36.0 g/dL Normal 32.0-36.0 [facility] Comment on above: Performed By: #### 5 8410-2 ####CALE Roth ([id number])[facility] ([facility])[address] [place] [address] MCV (RBC) [Entitic vol] 84 fL Normal 80-100 [facility] Comment on above: Performed By: #### 5 8410-2 ####CALE Roth ([id number])[facility] ([facility])[address] [place] [address] Nucleated RBC/100 WBC (Bld) [Ratio] 0.0 /100 WBCs Normal 0.0-0.0 [facility] Comment on above: Performed By: #### 5 8410-2 ####CALE Roth ([id number])[facility] ([facility])[address] [place] [address] Platelets (Bld) [#/Vol] 231 x10*3/uL Normal 150-450 [facility] Comment on above: Performed By: #### 5 8410-2 ####CALE Roth ([id number])[facility] ([facility])87265 [place] [address] RBC (Bld) [#/Vol] 3.63 x10*6/uL Low 4.00-5.20 [facility] Comment on above: Performed By: #### 5 8410-2 ####CALE Roth ([id number])[facility] ([facility])[address]17 [place] [address] WBC (Bld) [#/Vol] 8.0 x10*3/uL Normal 4.4-11.3 [facility] Comment on above: Performed By: #### 5 8410-2 ####CALE Roth ([id number])[facility] ([facility])[address] [place] [address] Calcium.ionizedon 03-11-2025 Calcium.ionized (Bld) [Moles/Vol] 1.21 mmol/L Normal 1.1-1.33 [facility] Comment on above: Result Comment: The performance characteristics of ionized calcium testedin heparinized plasma or serum have been validated by the[facility] site where testing is performed.Testing on heparinized plasma or serum is not approved [facility] FDA; however, such approval is not necessary. Performed By: #### 1 994-3 ####CALE Roth (50335)[facility] ([facility])13536 [place] [address] Glucose Test strip manual (B ld) [Mass/Vol]on 03-11-2025 Glucose [Mass/Vol] 151 mg/dL High 74-99 [facility] Comment on above: Performed By: #### 2 341-6 ####CALE Roth ([id number])[facility] ([facility])49348 [place] [address] Glucose [Mass/Vol] 125 mg/dL High 74-99 [facility] Comment on above: Performed By: #### 2 341-6 ####CALE Roth ([id number])[facility] ([facility])73164 [place] [address] Glucose [Mass/Vol] 171 mg/dL High [address] [place] [address] Comment on above: Performed By: #### 2 341-6 ####CALE Roth (48549)[facility] ([facility])13846 [place] [address] Glucose [Mass/Vol] 158 mg/dL High -99 [facility] Comment on above: Performed By: #### 2 341-6 ####CALE Roth ([id number])[facility] ([facility])[address] [place] [address] Glucose [Mass/Vol] 142 mg/dL High [address] [place] [address] Comment on above: Performed By: #### 2 341-6 ####CALE Roth ([id number])[facility] ([facility])[address] [place] [address] Glucose [Mass/Vol] 132 mg/dL High [address] [place] [address] Comment on above: Performed By: #### 2 341-6 ####CALE Roth ([id number])[facility] ([facility])[address] [place] [address] Magnesiumon 03-11-2025 Magnesium [Mass/Vol] 2.15 mg/dL Normal 1.60-2.40 [facility] Comment on above: Performed By: #### 1 9123-9 ####CALE Roth ([id number])[facility] ([facility])[address]169 [place] [address] Renal function 2000 panelon 03-11-2025 Albumin BCP dye [Mass/Vol] 4.0 g/dL Normal 3.4-5.0 [facility] Comment on above: Performed By: #### 2 4362-6 ####CAEL Roth ([id number])[facility] ([facility])[address]124 [place] [address] Anion gap [Moles/Vol] 11 mmol/L Normal 10-20 [facility] Comment on above: Performed By: #### 2 4362-6 ####CALE CAI L ([id number])[facility] ([facility])[address]71 [place] [address] Calcium [Mass/Vol] 9.4 mg/dL Normal 8.6-10.6 [facility] Comment on above: Performed By: #### 2 4362-6 ####CALE CAI L ([id number])[facility] ([facility])[address]31 [place] [address] Chloride [Moles/Vol] 105 mmol/L Normal 98-107 [facility] Comment on above: Performed By: #### 2 4362-6 ####CALE CAI L ([id number])[facility] ([facility])[address]325 [place] [address] CO2 [Moles/Vol] 28 mmol/L Normal 21-32 [facility] Comment on above: Performed By: #### 2 4362-6 ####CALE CAI L ([id number])[facility] ([facility])[address]402 [place] [address] Creatinine [Mass/Vol] 0.37 mg/dL Low 0.50-1.05 [facility] Comment on above: Performed By: #### 2 4362-6 ####CALE CAI L ([id number])[facility] ([facility])[address]64 [place] [address] Glomerular filtration rate >90 Normal >60 [facility] Comment on above: Result Comment: Calc ulations of estimated GFR are performed using the 2020 CKD-EPI Study Refit equation without the race variable for the IDMS-Traceable creatinine methods.https://jasn.asnjournals.org/content//ASN .[id number] Performed By: #### 2 4362-6 ####CALE Roth ([id number])[facility] ([facility])[address] [place] [address] Glucose [Mass/Vol] 151 mg/dL High 74-99 [facility] Comment on above: Performed By: #### 2 4362-6 ####CALE Roth ([id number])[facility] ([facility])[address] [place] [address] Phosphate [Mass/Vol] 3.0 mg/dL Normal 2.5-4.9 [facility] Comment on above: Performed By: #### 2 4362-6 ####CALE Roth (75025)[facility] ([facility])[address]29 [place] [address] Potassium [Moles/Vol] 3.8 mmol/L Normal 3.5-5.3 [facility] Comment on above: Performed By: #### 2 4362-6 ####CALE Roth ([id number])[facility] ([facility])[address] [place] [address] Urea nitrogen [Mass/Vol] 16 mg/dL Normal 6-23 [facility] Comment on above: Performed By: #### 2 4362-6 ####CALE Roth ([id number])[facility] ([facility])[address] [facility] [place] [place] [address] Albumin BCP dye [Mass/Vol] 3.9 g/dL Normal 3.4-5.0 [facility] Comment on above: Performed By: #### 2 4362-6 ####CALE Roth ([id number])[facility] ([facility])[address] [place] [address] Anion gap [Moles/Vol] 13 mmol/L Normal 10-20 [facility] Comment on above: Performed By: #### 2 4362-6 ####CALE Roth ([id number])[facility] ([facility])[address] [facility] [place] [address] Calcium [Mass/Vol] 9.2 mg/dL Normal 8.6-10.6 [facility] Comment on above: Performed By: #### 2 4362-6 ####CALE Roth ([id number])[facility] ([facility])[address] [place] [address] Chloride [Moles/Vol] 106 mmol/L Normal 98-107 [facility] Comment on above: Performed By: #### 2 4362-6 ####CALE CAI L ([id number])[facility] ([facility])[address] [place] [address] CO2 [Moles/Vol] 27 mmol/L Normal 21-32 [facility] Comment on above: Performed By: #### 2 4362-6 ####CALE Roth ([id number])[facility] ([facility])[address] [place] [address] Creatinine [Mass/Vol] 0.42 mg/dL Low 0.50-1.05 [facility] Comment on above: Performed By: #### 2 4362-6 ####CALE Roth ([id number])[facility] ([facility])[address] [place] [address] Glomerular filtration rate >90 Normal >60 [facility] Comment on above: Result Comment: Calc ulations of estimated GFR are performed using the 2020 CKD-EPI Study Refit equation without the race variable for the IDMS-Traceable creatinine methods.https://jasn.asnjournals.org/content/early//ASN .4699130567 Performed By: #### 2 4362-6 ####CALE CAI L ([id number])[facility] ([facility])[address] [place] [address] Glucose [Mass/Vol] 141 mg/dL High 74-99 [facility] Comment on above: Performed By: #### 2 4362-6 ####CALE CAI L (21909)[facility] ([facility])[address] [place] [address] Phosphate [Mass/Vol] 3.0 mg/dL Normal 2.5-4.9 [facility] Comment on above: Performed By: #### 2 4362-6 ####CALE oRth ([id number])[facility] ([facility])[address]34 [place] [address] Potassium [Moles/Vol] 3.2 mmol/L Low 3.5-5.3 [facility] Comment on above: Performed By: #### 2 4362-6 ####CALE Roth ([id number])[facility] ([facility])[address] [place] [address] Urea nitrogen [Mass/Vol] 20 mg/dL Normal 6-23 [facility] Comment on above: Performed By: #### 2 4362-6 ####CALE Roth ([id number])[facility] ([facility])[id number] [place] [address] Sodiumon 03-11-2025 Sodium [Moles/Vol] 140 mmol/L Normal 136-145 [facility] Comment on above: Performed By: #### 2 951-2 ####CALE Roth ([id number])[facility] ([facility])[address] [place] [address] Sodium [Moles/Vol] 140 mmol/L Normal 136-145 [facility] Comment on above: Performed By: #### 2 951-2 ####CALE Roth ([id number])[facility] ([facility])[address] [place] [address] Sodium [Moles/Vol] 140 mmol/L Normal 136-145 [facility] Comment on above: Performed By: #### 2 951-2 ####CALE Roth ([id number])[facility] ([facility])[address] [place] [address] Performed By: #### 2 4362-6 ####CALE Roth ([id number])[facility] ([facility])[address]23 [place] [address] Sodium [Moles/Vol] 144 mmol/L Normal 136-145 [facility] Comment on above: Performed By: #### 2 951-2 ####CALE Roth ([id number])[facility] ([facility])[address] [place] [address] Sodium [Moles/Vol] 143 mmol/L Normal 136-145 [facility] Comment on above: Performed By: #### 2 951-2 ####CALE Roth ([id number])[facility] ([facility])[id number] [place] [address] Performed By: #### 2 4362-6 ####CALE Roth ([id number])[facility] ([facility])[address] [place] [address] VASC US LOWER EXTREMITY VENO US DUPLEX BILATERALon 03-11-2025 VASC US LOWER EXTREMITY VENOUS DUPLEX BILATERAL Normal [facility] CBC panel Auto (Bld)on 03-10 Erythrocyte distribution width (RBC) [Ratio] 11.6 % Normal 11.5-14.5 [facility] Comment on above: Performed By: #### 5 8410-2 ####CALE Roth ([id number])[facility] ([facility])[id number] [place] [address] Hematocrit (Bld) [Volume fraction] 29.6 % Low 36.0-46.0 [facility] Comment on above: Performed By: #### 5 8410-2 ####CALE Roth ([id number])[facility] ([facility])[address] [place] [address] Hemoglobin (Bld) [Mass/Vol] 10.5 g/dL Low 12.0-16.0 [facility] Comment on above: Performed By: #### 5 8410-2 ####CALE Roth ([id number])[facility] ([facility])[address] [place] [address] MCH (RBC) [Entitic mass] 29.7 pg Normal 26.0-34.0 [facility] Comment on above: Performed By: #### 5 8410-2 ####CALE Roth ([id number])[facility] ([facility])[address] [place] [address] MCHC (RBC) [Mass/Vol] 35.5 g/dL Normal 32.0-36.0 [facility] Comment on above: Performed By: #### 5 8410-2 ####CALE Roth ([id number])[facility] ([facility])[address] [place] [address] MCV (RBC) [Entitic vol] 84 fL Normal 80-100 [facility] Comment on above: Performed By: #### 5 8410-2 ####CALE Roth ([id number])[facility] ([facility])[address]29 [place] [address] Nucleated RBC/100 WBC (Bld) [Ratio] 0.0 /100 WBCs Normal 0.0-0.0 [facility] Comment on above: Performed By: #### 5 8410-2 ####CALE Roth ([id number])[facility] ([facility])[address]86 [place] [address] Platelets (Bld) [#/Vol] 197 x10*3/uL Normal 150-450 [facility] Comment on above: Performed By: #### 5 8410-2 ####CALE Roth ([id number])[facility] ([facility])[address]44 [place] [address] RBC (Bld) [#/Vol] 3.53 x10*6/uL Low 4.00-5.20 [facility] Comment on above: Performed By: #### 5 8410-2 ####CALE Roth ([id number])[facility] ([facility])[address]50 [place] [address] WBC (Bld) [#/Vol] 6.1 x10*3/uL Normal 4.4-11.3 [facility] Comment on above: Performed By: #### 5 8410-2 ####CALE Roth ([id number])[facility] ([facility])[address] [place] [address] CT HEAD WO IV CONTRASTon CT HEAD WO IV CONTRAST Normal [facility] Glucose Test strip manual (B ld) [Mass/Vol]on 03-10-2025 Glucose [Mass/Vol] 151 mg/dL High [address] [place] [address] Comment on above: Performed By: #### 2 341-6 ####CALE Roth ([id number])[facility] ([facility])[address]42 [place] [address] Glucose [Mass/Vol] 146 mg/dL High [address] [place] [address] Comment on above: Performed By: #### 2 341-6 ####CALE Roth ([id number])[facility] ([facility])[address]67 [place] [address] Glucose [Mass/Vol] 142 mg/dL High [address] [place] [address] Comment on above: Performed By: #### 2 341-6 ####CALE Roth ([id number])[facility] ([facility])[address]683 [place] [address] Glucose [Mass/Vol] 178 mg/dL High [address] [place] [address] Comment on above: Performed By: #### 2 341-6 ####CALE Roth ([id number])[facility] ([facility])[address]394 [place] [address] Glucose [Mass/Vol] 152 mg/dL High [address] [place] [address] Comment on above: Performed By: #### 2 341-6 ####CALE Roth ([id number])[facility] ([facility])[address]294 [place] [address] Glucose [Mass/Vol] 122 mg/dL High [address] [place] [address] Comment on above: Performed By: #### 2 341-6 ####CALE Roth ([id number])[facility] ([facility])[address]278 [place] [address] Glucose [Mass/Vol] 144 mg/dL High 74-99 [facility] Comment on above: Performed By: #### 2 341-6 ####CALE Roth ([id number])[facility] ([facility])[address]245 [place] [address] Magnesiumon 03-10-2025 Magnesium [Mass/Vol] 2.06 mg/dL Normal 1.60-2.40 [facility] Comment on above: Performed By: #### 1 9123-9 ####CALE Roth ([id number])[facility] ([facility])[address] [place] [address] Renal function 2000 panelon 03-10-2025 Albumin BCP dye [Mass/Vol] 3.7 g/dL Normal 3.4-5.0 [facility] Comment on above: Performed By: #### 2 4362-6 ####CALE Roth ([id number])[facility] ([facility])[address]645 [place] [address] Anion gap [Moles/Vol] 14 mmol/L Normal 10-20 [facility] Comment on above: Performed By: #### 2 4362-6 ####CALE Roth ([id number])[facility] ([facility])[address]84 [place] [address] Calcium [Mass/Vol] 9.0 mg/dL Normal 8.6-10.6 [facility] Comment on above: Performed By: #### 2 4362-6 ####CALE Roth ([id number])[facility] ([facility])[address]01 [place] [address] Chloride [Moles/Vol] 106 mmol/L Normal 98-107 [facility] Comment on above: Performed By: #### 2 4362-6 ####CALE Roth ([id number])[facility] ([facility])[address]84 [place] [address] CO2 [Moles/Vol] 27 mmol/L Normal 21-32 [facility] Comment on above: Performed By: #### 2 4362-6 ####CALE Roth ([id number])[facility] ([facility])[address]64 [place] [address] Creatinine [Mass/Vol] 0.38 mg/dL Low 0.50-1.05 [facility] Comment on above: Performed By: #### 2 4362-6 ####CALE Roth ([id number])[facility] ([facility])[address]71 [place] [address] Glomerular filtration rate >90 Normal >60 [facility] Comment on above: Result Comment: Calc ulations of estimated GFR are performed using the 2020 CKD-EPI Study Refit equation without the race variable for the IDMS-Traceable creatinine methods.https://jasn.asnjournals.org/content/early//ASN .[id number] Performed By: #### 2 4362-6 ####CALE Roth ([id number])[facility] ([facility])[address]88 [place] [address] Glucose [Mass/Vol] 139 mg/dL High 74-99 [facility] Comment on above: Performed By: #### 2 4362-6 ####CALE Roth ([id number])[facility] ([facility])[address]65 [place] [address] Phosphate [Mass/Vol] 2.9 mg/dL Normal 2.5-4.9 [facility] Comment on above: Performed By: #### 2 4362-6 ####CALE Roth ([id number])[facility] ([facility])[address]60 [place] [address] Potassium [Moles/Vol] 3.5 mmol/L Normal 3.5-5.3 [facility] Comment on above: Performed By: #### 2 4362-6 ####CALE Roth ([id number])[facility] ([facility])[address]306 [place] [address] Sodium [Moles/Vol] 143 mmol/L Normal 136-145 [facility] Comment on above: Performed By: #### 2 4362-6 ####CALE Roth ([id number])[facility] ([facility])[address]70 [place] [address] Urea nitrogen [Mass/Vol] 16 mg/dL Normal 6-23 [facility] Comment on above: Performed By: #### 2 4362-6 ####CALE Roth ([id number])[facility] ([facility])[address]50 [place] [address] Sodiumon 03-10-2025 Sodium [Moles/Vol] 145 mmol/L Normal 136-145 [facility] Comment on above: Performed By: #### 2 951-2 ####CALE Roth ([id number])[facility] ([facility])[address] [place] [address] Sodium [Moles/Vol] 144 mmol/L Normal 136-145 [facility] Comment on above: Performed By: #### 2 951-2 ####CALE Roth ([id number])[facility] ([facility])[address]20 [place] [address] CBC W Auto Differential pane l (Bld)on 03-09-2025 Basophils (Bld) [#/Vol] 0.04 x10*3/uL Normal 0.00-0.10 [facility] Comment on above: Performed By: #### 5 7021-8 ####CALE Roth ([id number])[facility] ([facility])[address]05 [place] [address] Basophils/100 WBC (Bld) 0.6 % Normal 0.0-2.0 [facility] Comment on above: Performed By: #### 5 7021-8 ####CALE Roth ([id number])[facility] ([facility])[address]593 [place] [address] Eosinophils (Bld) [#/Vol] 0.07 x10*3/uL Normal 0.00-0.70 [facility] Comment on above: Performed By: #### 5 7021-8 ####CLAE Roth ([id number])[facility] ([facility])[address] [place] [address] Eosinophils/100 WBC (Bld) 1.1 % Normal 0.0-6.0 [facility] Comment on above: Performed By: #### 5 7021-8 ####CALE Roth ([id number])[facility] ([facility])[address] [place] [address] Erythrocyte distribution width (RBC) [Ratio] 11.4 % Low 11.5-14.5 [facility] Comment on above: Performed By: #### 5 7021-8 ####CALE Roth ([id number])[facility] ([facility])[address] [place] [address] Hematocrit (Bld) [Volume fraction] 31.0 % Low 36.0-46.0 [facility] Comment on above: Performed By: #### 5 7021-8 ####CALE Roth ([id number])[facility] ([facility])[address] [place] [address] Hemoglobin (Bld) [Mass/Vol] 10.8 g/dL Low 12.0-16.0 [facility] Comment on above: Performed By: #### 5 7021-8 ####CALE Roth ([id number])[facility] ([facility])[address] [place] [address] Immature granulocytes (Bld) [#/Vol] 0.24 x10*3/uL Normal 0.00-0.70 [facility] Comment on above: Performed By: #### 5 7021-8 ####CALE Roth ([id number])[facility] ([facility])[address] [place] [address] Immature granulocytes/100 WBC (Bld) 3.8 % High 0.0-0.9 [facility] Comment on above: Result Comment: Aleisha ture Granulocyte Count (IG) includes promyelocytes, myelocytes and metamyelocytes but does not include bands. Percent differential counts (%) should be interpreted in the context of the absolute cell counts (cells/UL). Performed By: #### 5 7021-8 ####CALE Roth ([id number])[facility] ([facility])[address]605 [place] [address] Lymphocytes (Bld) [#/Vol] 1.02 x10*3/uL Low 1.20-4.80 [facility] Comment on above: Performed By: #### 5 7021-8 ####CALE Roth ([id number])[facility] ([facility])[address]184 [place] [address] Lymphocytes/100 WBC (Bld) 16.2 % Normal 13.0-44.0 [facility] Comment on above: Performed By: #### 5 7021-8 ####CALE Roth ([id number])[facility] ([facility])32304 [place] [address] MCH (RBC) [Entitic mass] 29.8 pg Normal 26.0-34.0 [facility] Comment on above: Performed By: #### 5 7021-8 ####CALE Roth ([id number])[facility] ([facility])[address]20 [place] [address] MCHC (RBC) [Mass/Vol] 34.8 g/dL Normal 32.0-36.0 [facility] Comment on above: Performed By: #### 5 7021-8 ####CALE TOSCANOMOISAURA L ([id number])[facility] ([facility])[address]703 [place] [address] MCV (RBC) [Entitic vol] 86 fL Normal 80-100 [facility] Comment on above: Performed By: #### 5 7021-8 ####CALE Roth ([id number])[facility] ([facility])[address]6868 [place] [address] Monocytes (Bld) [#/Vol] 0.67 x10*3/uL Normal 0.10-1.00 [facility] Comment on above: Performed By: #### 5 7021-8 ####CALE CAI L ([id number])[facility] ([facility])[address]609 [place] [address] Monocytes/100 WBC (Bld) 10.7 % Normal 2.0-10.0 [facility] Comment on above: Performed By: #### 5 7021-8 ####CALE CAI L ([id number])[facility] ([facility])[address]791 [place] [address] Neutrophils (Bld) [#/Vol] 4.25 x10*3/uL Normal 1.20-7.70 [facility] Comment on above: Result Comment: Perc ent differential counts (%) should be interpreted in the context of the absolute cell counts (cells/uL). Performed By: #### 5 7021-8 ####CALE CAI L ([id number])[facility] ([facility])[address]50 [place] [address] Neutrophils/100 WBC (Bld) 67.6 % Normal 40.0-80.0 [facility] Comment on above: Performed By: #### 5 7021-8 ####CALE CAI L ([id number])[facility] ([facility])[address]200 [place] [address] Nucleated RBC/100 WBC (Bld) [Ratio] 0.0 /100 WBCs Normal 0.0-0.0 [facility] Comment on above: Performed By: #### 5 7021-8 ####CALE CAI L ([id number])[facility] ([facility])[address]38 [place] [address] Platelets (Bld) [#/Vol] 184 x10*3/uL Normal 150-450 [facility] Comment on above: Performed By: #### 5 7021-8 ####CALE Roth ([id number])[facility] ([facility])25698 [place] [address] RBC (Bld) [#/Vol] 3.62 x10*6/uL Low 4.00-5.20 [facility] Comment on above: Performed By: #### 5 7021-8 ####CALE Roth ([id number])[facility] ([facility])[address]998 [place] [address] WBC (Bld) [#/Vol] 6.3 x10*3/uL Normal 4.4-11.3 [facility] Comment on above: Performed By: #### 5 7021-8 ####CALE Roth ([id number])[facility] ([facility])[address] [place] [address] Calcium.ionizedon 03-09-2025 Calcium.ionized (Bld) [Moles/Vol] 1.19 mmol/L Normal 1.1-1.33 [facility] Comment on above: Result Comment: The performance characteristics of ionized calcium testedin heparinized plasma or serum have been validated by [facility] laboratory site where testing is performed.Testing on heparinized plasma or serum is not approved bythe FDA; however, such approval is not necessary. Performed By: #### 1 994-3 ####CALE Roth ([id number])[facility] ([facility])[address]140 [place] [address] Glucose Test strip manual (B ld) [Mass/Vol]on 03-09-2025 Glucose [Mass/Vol] 134 mg/dL High [address] [place] [address] Comment on above: Performed By: #### 2 341-6 ####CALE Roth ([id number])[facility] ([facility])[address]342 [place] [address] Glucose [Mass/Vol] 139 mg/dL [facility] [address] Comment on above: Performed By: #### 2 341-6 ####CALE Roth ([id number])[facility] ([facility])[address]378 [place] [address] Glucose [Mass/Vol] 133 mg/dL High 74-99 [facility] Comment on above: Performed By: #### 2 341-6 ####CALE Roth ([id number])[facility] ([facility])[address]33 [place] [address] Glucose [Mass/Vol] 154 mg/dL High 74-99 [facility] Comment on above: Performed By: #### 2 341-6 ####CALE Roth ([id number])[facility] ([facility])[address]302 [place] [address] Glucose [Mass/Vol] 162 mg/dL High 74-99 [facility] Comment on above: Performed By: #### 2 341-6 ####CALE Roth ([id number])[facility] ([facility])[address]777 [place] [address] Magnesiumon 03-09-2025 Magnesium [Mass/Vol] 2.01 mg/dL Normal 1.60-2.40 [facility] Comment on above: Performed By: #### 1 9123-9 ####CALE Roth ([id number])[facility] ([facility])[address]08 [place] [address] Renal function 2000 panelon 03-09-2025 Albumin BCP dye [Mass/Vol] 3.6 g/dL Normal 3.4-5.0 [facility] Comment on above: Performed By: #### 2 4362-6 ####CALE Roth ([id number])[facility] ([facility])[address]454 [place] [address] Anion gap [Moles/Vol] 12 mmol/L Normal 10-20 [facility] Comment on above: Performed By: #### 2 4362-6 ####CALE Roth ([id number])[facility] ([facility])[address]38 [place] [address] Calcium [Mass/Vol] 8.9 mg/dL Normal 8.6-10.6 [facility] Comment on above: Performed By: #### 2 4362-6 ####CALE Roth ([id number])[facility] ([facility])[address] [place] [address] Chloride [Moles/Vol] 106 mmol/L Normal 98-107 [facility] Comment on above: Performed By: #### 2 4362-6 ####CALE CAI L ([id number])[facility] ([facility])[address]01 [place] [address] CO2 [Moles/Vol] 29 mmol/L Normal 21-32 [facility] Comment on above: Performed By: #### 2 4362-6 ####CALE Roth ([id number])[facility] ([facility])[address] [place] [address] Creatinine [Mass/Vol] 0.47 mg/dL Low 0.50-1.05 [facility] Comment on above: Performed By: #### 2 4362-6 ####CALE Roth ([id number])[facility] ([facility])[address] [place] [address] Glomerular filtration rate >90 Normal >60 [facility] Comment on above: Result Comment: Calc ulations of estimated GFR are performed using the 2020 CKD-EPI Study Refit equation without the race variable for the IDMS-Traceable creatinine methods.https://jasn.asnjournals.org/content/early//ASN .[email or web address] Performed By: #### 2 4362-6 ####CALE CAI L ([id number])[facility] ([facility])[address] [place] [address] Glucose [Mass/Vol] 154 mg/dL High 74-99 [facility] Comment on above: Performed By: #### 2 4362-6 ####CALE CAI L ([id number])[facility] ([facility])[address] [place] [address] Phosphate [Mass/Vol] 2.8 mg/dL Normal 2.5-4.9 [facility] Comment on above: Performed By: #### 2 4362-6 ####CALE Roth ([id number])[facility] ([facility])[address] [place] [address] Potassium [Moles/Vol] 3.6 mmol/L Normal 3.5-5.3 [facility] Comment on above: Performed By: #### 2 4362-6 ####CALE Roth ([id number])[facility] ([facility])[address] [place] [address] Urea nitrogen [Mass/Vol] 14 mg/dL Normal 6-23 [facility] Comment on above: Performed By: #### 2 4362-6 ####CALE Roth ([id number])[facility] ([facility])[address] [place] [address] Sodiumon 03-09-2025 Sodium [Moles/Vol] 143 mmol/L Normal 136-145 [facility] Comment on above: Performed By: #### 2 951-2 ####CALE Roth ([id number])[facility] ([facility])[address] [place] [address] Sodium [Moles/Vol] 146 mmol/L High 136-145 [facility] Comment on above: Performed By: #### 2 951-2 ####CALE Roth ([id number])[facility] ([facility])[address] [place] [address] Sodium [Moles/Vol] 144 mmol/L Normal 136-145 [facility] Comment on above: Performed By: #### 2 951-2 ####CALE Roth ([id number])[facility] ([facility])[address] [place] [address] Sodium [Moles/Vol] 143 mmol/L Normal 136-145 [facility] Comment on above: Performed By: #### 2 951-2 ####CALE Roth ([id number])[facility] ([facility])[address] [place] [address] Performed By: #### 2 4362-6 ####CALE Roth ([id number])[facility] ([facility])[address] [place] [address] Vancomycinon 03-09-2025 Vancomycin [Mass/Vol] 13.6 ug/mL Normal 5.0-20.0 [facility] Comment on above: Order Comment: Vanco [...] Performed By: #### 2 0578-1 ####CALE Roth ([id number])[facility] ([facility])[address] [place], [place] [address] Adenovirus DNAon 03-08-2025 Adenovirus DNA JOSE+probe Ql (Unsp spec) Not detected Normal Not detected [facility] Comment on above: Order Comment: This [...] Performed By: #### 3 9528-5 ####CALE Roth ([id number])[facility] ([facility])[address] [place] [address] Bacteriaon 03-08-2025 Bacteria identified Respiratory culture Nom (Unsp spec) Abnormal [facility] Comment on above: Performed By: #### 3 2355-0 ####CALE TOSCANOMOTZER L ([id number])[facility] ([facility])[address] [place] [address] Bacteria identified Cx Nom (CSF) Normal [facility] Comment on above: Performed By: #### 6 06-4 ####CALE SCHMOTZER L ([id number])[facility] ([facility])[address] [place] [address] Bacteria identified Cx Nom (Bld) Normal [facility] Comment on above: Performed By: #### 6 00-7 ####CALE EVERTONMOTZER L ([id number])[facility] ([facility])[address] [place] [address] CBC W Auto Differential pane l (d)on 03-08-2025 Erythrocyte distribution width (RBC) [Ratio] 11.9 % Normal 11.5-14.5 [facility] Comment on above: Order Comment: The [...] By: #### 5 7021-8 ####CALE TOSCANOMOTZER L ([id number])[facility] ([facility])[address] [place] [address] Hematocrit (Bld) [Volume fraction] 36.7 % Normal 36.0-46.0 [facility] Comment on above: Order Comment: The [...] Performed By: #### 5 7021-8 ####CALE Roth ([id number])[facility] ([facility])[address] [place] [address] Hemoglobin (Bld) [Mass/Vol] 12.1 g/dL Normal 12.0-16.0 [facility] Comment on above: Order Comment: The [...] Performed By: #### 5 7021-8 ####CALE Roth ([id number])[facility] ([facility])[address] [place] [address] Immature granulocytes (Bld) [#/Vol] 0.19 x10*3/uL Normal 0.00-0.70 [facility] Comment on above: Order Comment: The [...] Performed By: #### 5 7021-8 ####CALE Roth ([id number])[facility] ([facility])[address] [place] [address] Immature granulocytes/100 WBC (Bld) 1.5 % High 0.0-0.9 [facility] Comment on above: Order Comment: The [...] Performed By: #### 5 7021-8 ####CALE Roth ([id number])[facility] ([facility])[address] [place] [address] MCH (RBC) [Entitic mass] 30.0 pg Normal 26.0-34.0 [facility] Comment on above: Order Comment: The [...] Performed By: #### 5 7021-8 ####CALE Roth ([id number])[facility] ([facility])[address] [place] [address] MCHC (RBC) [Mass/Vol] 33.0 g/dL Normal 32.0-36.0 [...] By: #### 5 7021-8 ####CALE TOSCANOMOTZER L ([id number])[facility] ([facility])[address] [place] [address] MCV (RBC) [Entitic vol] 91 fL Normal 80-100 [facility] Comment on above: Order Comment: The [...] By: #### 5 7021-8 ####CALE TOSCANOMOTZER L ([id number])[facility] ([facility])[address] [place] [address] Nucleated RBC/100 WBC (Bld) [Ratio] 0.0 /100 WBCs Normal 0.0-0.0 [facility] Comment on above: Order Comment: The [...] By: #### 5 7021-8 ####CALE PARKERTZER L ([id number])[facility] ([facility])[address] [place] [address] Platelets (Bld) [#/Vol] 200 x10*3/uL Normal 150-450 [facility] Comment on above: Order Comment: The [...] By: #### 5 7021-8 ####CALE TOSCANOMOTZER L ([id number])[facility] ([facility])[address] [place] [address] RBC (Bld) [#/Vol] 4.03 x10*6/uL Normal 4.00-5.20 [facility] Comment on above: Order Comment: The [...] By: #### 5 7021-8 ####CALE TOSCANOMOTZER L ([id number])[facility] ([facility])[address] [place] [address] WBC (Bld) [#/Vol] 12.6 x10*3/uL High 4.4-11.3 [facility] Comment on above: Order Comment: The [...] Performed By: #### 5 7021-8 ####CALE Roth ([id number])[facility] ([facility])[address] [place] [address] CSF CELL COUNTon 03-08-2025 Appearance (CSF) Turbid Abnormal Clear [facility] Comment on above: Order Comment: CSF c ell count reference ranges have not been established by [facility]. Based on published references. Performed By: #### C TCS4 ####CALE TOSCANOMOTZER L ([id number])[facility] ([facility])[address] [place] [address] Color (CSF) Red Abnormal Colorless [facility] Comment on above: Order Comment: CSF c ell count reference ranges have not been established by [facility]. Based on published references. Performed By: #### C TCS4 ####CALE PARKERTZER L ([id number])[facility] ([facility])[address] [place] [address] Color (Spun CSF) Xanthochromic Normal [facility] Comment on above: Order Comment: CSF c ell count reference ranges have not been established by [facility]. Based on published references. Performed By: #### C TCS4 ####CALE TOSCANOMOTZER L ([id number])[facility] ([facility])[address] [place] [address] RBC Auto (CSF) [#/Vol] 96040 /uL High 0-5 [facility] Comment on above: Order Comment: CSF c ell count reference ranges have not been established by [facility]. Based on published references. Performed By: #### C TCS4 ####CALE Roth ([id number])[facility] ([facility])[address] [place] [address] Tube number Nom (CSF) [ID] Unspecified Normal [facility] Comment on above: Order Comment: CSF c ell count reference ranges have not been established by [facility]. Based on published references. Performed By: #### C TCS4 ####CALE Roth ([id number])[facility] ([facility])[address] [place] [address] WBC Auto (CSF) [#/Vol] 5 /uL Normal 1-5 [facility] Comment on above: Order Comment: CSF c ell count reference ranges have not been established by [facility]. Based on published references. Performed By: #### Poncho TCS4 ####CALE Roth ([id number])[facility] ([facility])[address] [place] [address] CSF DIFFERENTIALon 5 Cells Counted Total (CSF) [#] 38 Normal [facility] Comment on above: Order Comment: CSF c ell differential reference ranges have not been established by [facility]. Based on published references. Performed By: #### D FCSF ####CALE Roth ([id number])[facility] ([facility])[address] [place] [address] Lymphocytes/100 WBC Manual cnt (CSF) 42 % Normal 28-96 [facility] Comment on above: Order Comment: CSF c ell differential reference ranges have not been established by [facility]. Based on published references. Performed By: #### D FCSF ####CALE Roth ([id number])[facility] ([facility])[address] [place] [address] Monocytes+Macrophage s/100 WBC Manual cnt (CSF) 16 % Normal 16-56 [facility] Comment on above: Order Comment: CSF c ell differential reference ranges have not been established by [facility]. Based on published references. Performed By: #### D FCSF ####CALE Roth ([id number])[facility] ([facility])[address] [place] [address] Segmented neutrophils/100 WBC Manual cnt (CSF) 42 % High 0-5 [facility] Comment on above: Order Comment: CSF c ell differential reference ranges have not been established by [facility]. Based on published references. Performed By: #### D FCSF ####CALE Roth ([id number])[facility] ([facility])[address] [place] [address] CT HEAD WO IV CONTRASTon CT HEAD WO IV CONTRAST Normal [facility] Calcium.ionizedon 03-08-2025 Calcium.ionized (Bld) [Moles/Vol] 1.18 mmol/L Normal 1.1-1.33 [facility] Comment on above: Result Comment: The performance characteristics of ionized calcium testedin heparinized plasma or serum have been validated [facility] where [facility].Testing on heparinized plasma or serum is not approved bythe FDA; however, such approval is not necessary. Performed By: #### 1 994-3 ####CALE Roth ([id number])[facility] ([facility])[address] [place] [address] Glucoseon 03-08-2025 Glucose (CSF) [Mass/Vol] 84 mg/dL High 40-70 [facility] Comment on above: Performed By: #### 2 342-4 ####CALE Roth ([id number])[facility] ([facility])[address] [place] [address] Glucose Test strip manual (B ld) [Mass/Vol]on 03-08-2025 Glucose [Mass/Vol] 133 mg/dL High 74-99 [facility] Comment on above: Performed By: #### 2 341-6 ####CALE Roth ([id number])[facility] ([facility])[address] [place] [address] Glucose [Mass/Vol] 119 mg/dL High 74-99 [facility] Comment on above: Performed By: #### 2 341-6 ####CALE Roth ([id number])[facility] ([facility])[address] [place] [address] Glucose [Mass/Vol] 127 mg/dL High [address] [place] [address] Comment on above: Performed By: #### 2 341-6 ####CALE Roth ([id number])[facility] ([facility])[address] [place] [address] Glucose [Mass/Vol] 124 mg/dL High [address] [place] [address] Comment on above: Performed By: #### 2 341-6 ####CALE Roth ([id number])[facility] ([facility])[address] [place] [address] Glucose [Mass/Vol] 127 mg/dL High [address] [place] [address] Comment on above: Performed By: #### 2 341-6 ####CALE Roth ([id number])[facility] ([facility])[address]47 [place] [address] Glucose [Mass/Vol] 135 mg/dL High [address] [place] [address] Comment on above: Performed By: #### 2 341-6 ####CALE Roth ([id number])[facility] ([facility])[address] [place] [address] Glucose [Mass/Vol] 124 mg/dL High [address] [place] [address] Comment on above: Performed By: #### 2 341-6 ####CALE Roth ([id number])[facility] ([facility])[address] [place] [address] Human metapneumovirus RNAon 03-08-2025 hMPV RNA JOSE+probe Ql (Unsp spec) Not detected Normal Not detected [facility] Comment on above: Order Comment: This [...] Performed By: #### 3 8917-1 ####CALE Roth ([id number])[facility] ([facility])[address] [place] [address] Influenza virus Aon 03-08-20 25 FLUAV RNA JOSE+probe Ql (Resp) Not detected Normal Not Detected [facility] Comment on above: Order Comment: This assay is an FDA-cleared, in vitro diagnostic nucleic acid amplification test for the qualitative detection and differentiation of SARS CoV-2/ Influenza A/B/ RSV from nasopharyngeal specimens collected from individuals with signs and symptoms of respiratory tract infections, and has been validated for use at [facility]. Negative results do not preclude COVID-19/ Influenza A/B/ RSV infections and should not be used as the sole basis for diagnosis, treatment, or other management decisions. Testing for SARS CoV-2 is recommended only for patients who meet current clinical and/or epidemiological criteria defined by federal, state, or local public health directives. Performed By: #### 9 5941-1 ####CALE Roth ([id number])[facility] ([facility])[address] [place], [place] [address] FLUBV RNA JOSE+probe Ql (Resp) Not detected Normal Not Detected [facility] Comment on above: Order Comment: This assay is an FDA-cleared, in vitro diagnostic nucleic acid amplification test for the qualitative detection and differentiation of SARS CoV-2/ Influenza A/B/ RSV from nasopharyngeal specimens collected from individuals with signs and symptoms of respiratory tract infections, and has been validated for use at [facility]. Negative results do not preclude COVID-19/ Influenza A/B/ RSV infections and should not be used as the sole basis for diagnosis, treatment, or other management decisions. Testing for SARS CoV-2 is recommended only for patients who meet current clinical and/or epidemiological criteria defined by federal, state, or local public health directives. Performed By: #### 9 5941-1 ####CALE Roth ([id number])[facility] ([facility])[address] [place] [address] RSV RNA JOSE+probe Ql (Resp) Not detected Normal Not Detected [facility] Comment on above: Order Comment: This assay is an FDA-cleared, in vitro diagnostic nucleic acid amplification test for the qualitative detection and differentiation of SARS CoV-2/ Influenza A/B/ RSV from nasopharyngeal specimens collected from individuals with signs and symptoms of respiratory tract infections, and has been validated for use at [facility]. Negative results do not preclude COVID-19/ Influenza A/B/ RSV infections and should not be used as the sole basis for diagnosis, treatment, or other management decisions. Testing for SARS CoV-2 is recommended only for patients who meet current clinical and/or epidemiological criteria defined by federal, state, or local public health directives. Performed By: #### 9 5941-1 ####CALE Roth ([id number])[facility] ([facility])[address] [place] [address] SARS-CoV-2 (COVID-19) RNA JOSE+probe Ql (Resp) Not detected Normal Not Detected [facility] Comment on above: Order Comment: This assay is an FDA-cleared, in vitro diagnostic nucleic acid amplification test for the qualitative detection and differentiation of SARS CoV-2/ Influenza A/B/ RSV from nasopharyngeal specimens collected from individuals with signs and symptoms of respiratory tract infections, and has been validated for use at [facility]. Negative results do not preclude COVID-19/ Influenza A/B/ RSV infections and should not be used as the sole basis for diagnosis, treatment, or other management decisions. Testing for SARS CoV-2 is recommended only for patients who meet current clinical and/or epidemiological criteria defined by federal, state, or local public health directives. Performed By: #### 9 5941-1 ####CALE Roth ([id number])[facility] ([facility])[address] [place] [address] Magnesiumon 03-08-2025 Magnesium [Mass/Vol] 2.17 mg/dL Normal 1.60-2.40 [facility] Comment on above: Performed By: #### 1 9123-9 ####CALE Roth ([id number])[facility] ([facility])[address] [place] [address] Manual differential performe d Ql (Bld)on 03-08-2025 Band form neutrophils (Bld) [#/Vol] 0.87 x10*3/uL High 0.00-0.70 [facility] Comment on above: Performed By: #### 5 57-0 ####CALE Roth ([id number])[facility] ([facility])[address] [place] [address] Band form neutrophils/100 WBC (Bld) 6.9 % Normal 0.0-5.0 [facility] Comment on above: Performed By: #### 5 57-0 ####CALE Roth ([id number])[facility] ([facility])[address] [place] [address] Basophils (Bld) [#/Vol] 0.00 x10*3/uL Normal 0.00-0.10 [facility] Comment on above: Performed By: #### 5 57-0 ####CALE Roth ([id number])[facility] ([facility])[address] [place] [address] Basophils/100 WBC (Bld) 0.0 % Normal 0.0-2.0 [facility] Comment on above: Performed By: #### 5 57-0 ####CALE Roth ([id number])[facility] ([facility])[address] [place] [address] Blasts Manual cnt (Bld) [#/Vol] 0.00 x10*3/uL Normal 0.00-0.00 [facility] Comment on above: Performed By: #### 5 57-0 ####CALE Roth ([id number])[facility] ([facility])[address] [place] [address] Blasts/100 WBC (Bld) 0.0 % Normal 0.0-0.0 [facility] Comment on above: Performed By: #### 5 57-0 ####CALE Roth ([id number])[facility] ([facility])[address] [place] [address] Cells Counted Total (Bld) [#] 116 Normal [facility] Comment on above: Performed By: #### 5 57-0 ####CALE Roth ([id number])[facility] ([facility])[address] [place] [address] Eosinophils (Bld) [#/Vol] 0.00 x10*3/uL Normal 0.00-0.70 [facility] Comment on above: Performed By: #### 5 57-0 ####CALE Roth ([id number])[facility] ([facility])[address] [place] [address] Eosinophils/100 WBC (Bld) 0.0 % Normal 0.0-6.0 [facility] Comment on above: Performed By: #### 5 57-0 ####CALE Roth ([id number])[facility] ([facility])[address] [place] [address] Lymphocytes (Bld) [#/Vol] 1.30 x10*3/uL Normal 1.20-4.80 [facility] Comment on above: Performed By: #### 5 57-0 ####CALE Roth ([id number])[facility] ([facility])[address] [place] [address] Lymphocytes/100 WBC (Bld) 10.3 % Normal 13.0-44.0 [facility] Comment on above: Performed By: #### 5 57-0 ####CALE Roth ([id number])[facility] ([facility])[address] [place] [address] Metamyelocytes (Bld) [#/Vol] 0.00 x10*3/uL Normal 0.00-0.00 [facility] Comment on above: Performed By: #### 5 57-0 ####CALE Roth ([id number])[facility] ([facility])[address] [place] [address] Metamyelocytes/100 WBC (Bld) 0.0 % Normal 0.0-0.0 [facility] Comment on above: Performed By: #### 5 57-0 ####CALE Roth ([id number])[facility] ([facility])[address]27 [place] [address] Monocytes (Bld) [#/Vol] 0.54 x10*3/uL Normal 0.10-1.00 [facility] Comment on above: Performed By: #### 5 57-0 ####CALE Roth ([id number])[facility] ([facility])[address] [place] [address] Monocytes/100 WBC (Bld) 4.3 % Normal 2.0-10.0 [facility] Comment on above: Performed By: #### 5 57-0 ####CALE Roth ([id number])[facility] ([facility])[address] [place] [address] 269[address] Myelocytes (Bld) [#/Vol] 0.00 x10*3/uL Normal 0.00-0.00 [facility] Comment on above: Performed By: #### 5 57-0 ####CALE Roth ([id number])[facility] ([facility])[address] [place] [address] Myelocytes/100 WBC (Bld) 0.0 % Normal 0.0-0.0 [facility] Comment on above: Performed By: #### 5 57-0 ####CALE Roth ([id number])[facility] [facility] [place] [address] Neutrophils (Bld) [#/Vol] 10.76 x10*3/uL High 1.20-7.70 [facility] Comment on above: Performed By: #### 5 57-0 ####CALE Roth ([id number])[facility] ([facility])[id number] [place] [address] Nucleated RBC/100 WBC (Bld) [Ratio] 0.0 % Normal 0.0-0.0 [facility] Comment on above: Performed By: #### 5 57-0 ####CALE Roth ([id number])[facility] ([facility])[address] [place] [address] Ovalocytes LM Ql (Bld) Few Normal [facility] Comment on above: Performed By: #### 5 57-0 ####CALE Roth ([id number])[facility] ([facility])[address] [place] [address] Plasma cells (Bld) [#/Vol] 0.00 x10*3/uL Normal 0.00-0.00 [facility] Comment on above: Performed By: #### 5 57-0 ####CALE Roth ([id number])[facility] ([facility])[address] [place] [address] Plasma cells/100 WBC Manual cnt (Bld) 0.0 % Normal 0.00-0.00 [facility] Comment on above: Performed By: #### 5 57-0 ####CALE Roth ([id number])[facility] ([facility])[address] [place] [address] Promyelocytes (Bld) [#/Vol] 0.00 x10*3/uL Normal 0.00-0.00 [facility] Comment on above: Performed By: #### 5 57-0 ####CALE Roth ([id number])[facility] ([facility])[address] [place] [address] Promyelocytes/100 WBC (Bld) 0.0 % Normal 0.0-0.0 [facility] Comment on above: Performed By: #### 5 57-0 ####CALE Roth ([id number])[facility] ([facility])[address] [place] [address] RBC morphology finding Nom (Bld) See Below [facility] Comment on above: Performed By: #### 5 0957-0 ####CALE Roth ([id number])[facility] ([facility])[address] [place] [address] Segmented neutrophils (Bld) [#/Vol] 9.89 x10*3/uL High 1.20-7.00 [facility] Comment on above: Performed By: #### 5 0957-0 ####CALE Roth ([id number])[facility] ([facility])[address] [place] [address] Segmented neutrophils/100 WBC (Bld) 78.5 % Normal 40.0-80.0 [facility] Comment on above: Result Comment: Perc ent differential counts (%) should be interpreted in the context of the absolute cell counts (cells/uL). Performed By: #### 5 0957-0 ####CALE Roth ([id number])[facility] ([facility])[address] [place] [address] Variant lymphocytes (Bld) [#/Vol] 0.00 x10*3/uL Normal 0.00-0.50 [facility] Comment on above: Performed By: #### 5 0957-0 ####CALE Roth ([id number])[facility] ([facility])[address] [place] [address] Variant lymphocytes/100 WBC (Bld) 0.0 % Normal 0.0-2.0 [facility] Comment on above: Performed By: #### 5 0957-0 ####CALE Roth ([id number])[facility] ([facility])[address]237 [place] [address] WBC other Manual cnt (Bld) [#/Vol] 0.00 x10*3/uL Normal [facility] Comment on above: Performed By: #### 5 0957-0 ####CALE Roth ([id number])[facility] ([facility])[address] [place] [address] WBC other/100 WBC (Bld) 0.0 % Normal [facility] Comment on above: Performed By: #### 5 0957-0 ####CALE Roth ([id number])[facility] ([facility])[address] [place] [address] Parainfluenza virus RNA JOSE+ probe Ql (Upper resp)on 03-08-2025 Parainfluenza virus 1 RNA JOSE+probe Ql (Unsp spec) Not detected Normal Not Detected, Invalid [facility] Comment on above: Order Comment: This [...] Performed By: #### 9 1798-9 ####CALE Roth ([id number])[facility] ([facility])[address]222 [place] [address] Parainfluenza virus 2 RNA JOSE+probe Ql (Unsp spec) Not detected Normal Not Detected, Invalid [facility] Comment on above: Order Comment: This [...] Performed By: #### 9 1798-9 ####CALE Roth ([id number])[facility] ([facility])[address] [place] [address] Parainfluenza virus 3 RNA JOSE+probe Ql (Unsp spec) Not detected Normal Not Detected, Invalid [facility] Comment on above: Order Comment: This [...] Performed By: #### 9 1798-9 ####CALE Roth ([id number])[facility] ([facility])[address]16 [place] [address] Parainfluenza virus 4 RNA JOSE+probe Ql (Unsp spec) Not detected Normal Not Detected, Invalid [facility] Comment on above: Order Comment: This [...] Performed By: #### 9 1798-9 ####CALE Roth ([id number])[facility] ([facility])[address] [place] [address] Procalcitoninon 03-08-2025 Procalcitonin [Mass/Vol] 0.21 ng/mL High <=0.07 [facility] Comment on above: Order Comment: Proca [...] Performed By: #### 3 3959-8 ####CALE Roth ([id number])[facility] ([facility])[address] [place] [address] Proteinon 03-08-2025 Protein (CSF) [Mass/Vol] 61 mg/dL High 15-45 [facility] Comment on above: Performed By: #### 2 880-3 ####CALE Roth ([id number])[facility] ([facility])[address]750 [place] [address] Renal function 2000 panelon 03-08-2025 Albumin BCP dye [Mass/Vol] 3.9 g/dL Normal 3.4-5.0 [facility] Comment on above: Performed By: #### 2 4362-6 ####CALE Roth ([id number])[facility] ([facility])[address] [place] [address] Anion gap [Moles/Vol] 11 mmol/L Normal 10-20 [facility] Comment on above: Performed By: #### 2 4362-6 ####CALE Roth ([id number])[facility] ([facility])[address] [place] [address] Calcium [Mass/Vol] 9.2 mg/dL Normal 8.6-10.6 [facility] Comment on above: Performed By: #### 2 4362-6 ####CALE Roth ([id number])[facility] ([facility])[address] [place] [address] Chloride [Moles/Vol] 107 mmol/L Normal 98-107 [facility] Comment on above: Performed By: #### 2 4362-6 ####CALE Roth ([id number])[facility] ([facility])[address]63 [place] [address] CO2 [Moles/Vol] 27 mmol/L Normal 21-32 [facility] Comment on above: Performed By: #### 2 4362-6 ####CALE Roth ([id number])[facility] ([facility])[address] [place] [address] Creatinine [Mass/Vol] 0.46 mg/dL Low 0.50-1.05 [facility] Comment on above: Performed By: #### 2 4362-6 ####CALE Roth ([id number])[facility] ([facility])[address]166 [place] [address] Glomerular filtration rate >90 Normal >60 [facility] Comment on above: Result Comment: Calc ulations of estimated GFR are performed using the 2020 CKD-EPI Study Refit equation without the race variable for the IDMS-Traceable creatinine methods.https://jasn.asnjournals.org/content/early//ASN .1360475793 Performed By: #### 2 4362-6 ####CALE Roth ([id number])[facility] ([facility])[address]19 [place] [address] Glucose [Mass/Vol] 151 mg/dL High 74-99 [facility] Comment on above: Performed By: #### 2 4362-6 ####CALE Roth ([id number])[facility] ([facility])[address]28 [place] [address] Phosphate [Mass/Vol] 3.0 mg/dL Normal 2.5-4.9 [facility] Comment on above: Performed By: #### 2 4362-6 ####CALE Roth (77254)[facility] ([facility])[address]227 [place] [address] Potassium [Moles/Vol] 3.7 mmol/L Normal 3.5-5.3 [facility] Comment on above: Performed By: #### 2 4362-6 ####CALE Roth ([id number])[facility] ([facility])[address] [place] [address] Urea nitrogen [Mass/Vol] 15 mg/dL Normal 6-23 [facility] Comment on above: Performed By: #### 2 4362-6 ####CALE Roth ([id number])[facility] ([facility])[address] [place] [address] Rhinovirus RNAon 03-08-2025 Rhinovirus RNA JOSE+probe Ql (Upper resp) Not detected Normal Not Detected [facility] Comment on above: Order Comment: This [...] Performed By: #### 9 1793-0 ####CALE Roth ([id number])[facility] ([facility])[address] [place] [address] Sodiumon 03-08-2025 Sodium [Moles/Vol] 143 mmol/L Normal 136-145 [facility] Comment on above: Performed By: #### 2 951-2 ####CALE Roth ([id number])[facility] ([facility])[address] [place] [address] Sodium [Moles/Vol] 141 mmol/L Normal 136-145 [facility] Comment on above: Performed By: #### 2 951-2 ####CALE Roth ([id number])[facility] ([facility])[address] [place] [address] Sodium [Moles/Vol] 141 mmol/L Normal 136-145 [facility] Comment on above: Performed By: #### 2 951-2 ####CALE Roth ([id number])[facility] ([facility])[address] [place] [address] Performed By: #### 2 4362-6 ####CALE Roth ([id number])[facility] ([facility])[address] [place] [address] Staphylococcus aureus.methic illin resistant DNAon 03-08-2025 MRSA DNA JOSE+probe Ql (Nose) Staphylococcus aureus.methicillin resistant DNA Not Detected Normal Not Detected [facility] Comment on above: Order Comment: This [...] Performed By: #### 9 0001-9 ####CALE Roth ([id number])[facility] ([facility])[address] [place] [address] Triglycerideon 03-08-2025 Triglyceride [Mass/Vol] 81 mg/dL Normal 0-114 [facility] Comment on above: Order Comment: While [...] Performed By: #### 2 571-8 ####CALE Roth ([id number])[facility] ([facility])[address] [place], [place] [id number] Urinalysis complete W Reflex Culture panel (U)on 03-08-2025 Appearance (U) Clear Normal Clear [facility] Comment on above: Performed By: #### 5 8077-9 ####CALE Roth ([id number])[facility] ([facility])[address]304 [place] [address] Bilirubin (U) [Mass/Vol] Negative Normal NEGATIVE [facility] Comment on above: Performed By: #### 5 8077-9 ####CALE Roth ([id number])[facility] ([facility])[address] [place] [address] Color (U) Light-Yellow Normal Light-Yello w, Yellow, Dark-Yellow [facility] Comment on above: Performed By: #### 5 8077-9 ####CALE Roth ([id number])[facility] ([facility])[address]89 [place] [address] Glucose Auto test strip (U) [Mass/Vol] Normal Normal Normal [facility] Comment on above: Performed By: #### 5 8077-9 ####CALE Roth ([id number])[facility] ([facility])[address]704 [place] [address] Ketones (U) [Mass/Vol] 40 (2+) Abnormal NEGATIVE [facility] Comment on above: Performed By: #### 5 8077-9 ####CALE Roth ([id number])[facility] ([facility])[address]17 [place] [address] Leukocyte esterase Auto test strip Ql (U) Negative Normal NEGATIVE [facility] Comment on above: Performed By: #### 5 8077-9 ####CALE Roth ([id number])[facility] ([facility])[address]557 [place] [address] Nitrite Auto test strip Ql (U) Negative Normal NEGATIVE [facility] Comment on above: Performed By: #### 5 8077-9 ####CALE Roth ([id number])[facility] ([facility])[address]40 [place] [address] pH (U) 7.0 [pH] Normal 5.0, 5.5, 6.0, 6.5, 7.0, 7.5, 8.0 [facility] Comment on above: Performed By: #### 5 8077-9 ####CALE Roth ([id number])[facility] ([facility])[address] [place] [address] Protein (U) [Mass/Vol] Negative Normal NEGATIVE, 10 (TRACE), 20 (TRACE) [facility] Comment on above: Performed By: #### 5 8077-9 ####CALE Roth ([id number])[facility] ([facility])[address] [place] [address] RBC (U) [#/Vol] Negative Normal NEGATIVE [facility] Comment on above: Performed By: #### 5 8077-9 ####CALE Roth ([id number])[facility] ([facility])[address] [place] [address] Specific gravity (U) [Rel density] 1.018 Normal 1.005-1.035 [facility] Comment on above: Performed By: #### 5 8077-9 ####CALE Roth ([id number])[facility] ([facility])[address] [place] [address] Urobilinogen (U) [Mass/Vol] Normal Normal Normal [facility] Comment on above: Performed By: #### 5 8077-9 ####CALE Roth ([id number])[facility] ([facility])[address] [place] [address] XR CHEST 1 VIEWon 03-08-2025 XR CHEST 1 VIEW Normal [facility] CBC W Auto Differential pane l (Bld)on 03-07-2025 Basophils (Bld) [#/Vol] 0.01 x10*3/uL Normal 0.00-0.10 [facility] Comment on above: Performed By: #### 5 7021-8 ####CALE Roth ([id number])[facility] ([facility])[address] [place] [address] Basophils/100 WBC (Bld) 0.1 % Normal 0.0-2.0 [facility] Comment on above: Performed By: #### 5 7021-8 ####CALE Roth ([id number])[facility] ([facility])[address] [place] [address] Eosinophils (Bld) [#/Vol] 0.06 x10*3/uL Normal 0.00-0.70 [facility] Comment on above: Performed By: #### 5 7021-8 ####CALE Roth ([id number])[facility] ([facility])[address] [place] [address] Eosinophils/100 WBC (Bld) 0.7 % Normal 0.0-6.0 [facility] Comment on above: Performed By: #### 5 7021-8 ####CALE Roth ([id number])[facility] ([facility])[address] [place] [address] Erythrocyte distribution width (RBC) [Ratio] 12.1 % Normal 11.5-14.5 [facility] Comment on above: Performed By: #### 5 7021-8 ####CALE Roth ([id number])[facility] ([facility])[address] [place] [address] Hematocrit (Bld) [Volume fraction] 32.0 % Low 36.0-46.0 [facility] Comment on above: Performed By: #### 5 7021-8 ####CALE Roth ([id number])[facility] ([facility])[address] [place] [address] Hemoglobin (Bld) [Mass/Vol] 10.8 g/dL Low 12.0-16.0 [facility] Comment on above: Performed By: #### 5 7021-8 ####CALE Roth ([id number])[facility] ([facility])[address] [place] [address] Immature granulocytes (Bld) [#/Vol] 0.08 x10*3/uL Normal 0.00-0.70 [facility] Comment on above: Performed By: #### 5 7021-8 ####CALE Roth ([id number])[facility] ([facility])[address]85 [place] [address] Immature granulocytes/100 WBC (Bld) 1.0 % High 0.0-0.9 [facility] Comment on above: Result Comment: Aleisha ture Granulocyte Count (IG) includes promyelocytes, myelocytes and metamyelocytes but does not include bands. Percent differential counts (%) should be interpreted in the context of the absolute cell counts (cells/UL). Performed By: #### 5 7021-8 ####CALE Roth ([id number])[facility] ([facility])[address]40 [place] [address] Lymphocytes (Bld) [#/Vol] 1.03 x10*3/uL Low 1.20-4.80 [facility] Comment on above: Performed By: #### 5 7021-8 ####CALE Roth ([id number])[facility] ([facility])[address]234 [place] [address] Lymphocytes/100 WBC (Bld) 12.5 % Normal 13.0-44.0 [facility] Comment on above: Performed By: #### 5 7021-8 ####CALE Roth ([id number])[facility] ([facility])[address]16 [place] [address] MCH (RBC) [Entitic mass] 30.2 pg Normal 26.0-34.0 [facility] Comment on above: Performed By: #### 5 7021-8 ####CALE Roth ([id number])[facility] ([facility])[address]346 [place] [address] MCHC (RBC) [Mass/Vol] 33.8 g/dL Normal 32.0-36.0 [facility] Comment on above: Performed By: #### 5 7021-8 ####CALE Roth ([id number])[facility] ([facility])[address]31 [place] [address] MCV (RBC) [Entitic vol] 89 fL Normal 80-100 [facility] Comment on above: Performed By: #### 5 7021-8 ####CALE Roth ([id number])[facility] ([facility])[address]159 [place] [address] Monocytes (Bld) [#/Vol] 0.54 x10*3/uL Normal 0.10-1.00 [facility] Comment on above: Performed By: #### 5 7021-8 ####CALE Roth ([id number])[facility] ([facility])[address]65 [place] [address] Monocytes/100 WBC (Bld) 6.6 % Normal 2.0-10.0 [facility] Comment on above: Performed By: #### 5 7021-8 ####CALE Roth ([id number])[facility] ([facility])[address]350 [place] [address] Neutrophils (Bld) [#/Vol] 6.51 x10*3/uL Normal 1.20-7.70 [facility] Comment on above: Result Comment: Perc ent differential counts (%) should be interpreted in the context of the absolute cell counts (cells/uL). Performed By: #### 5 7021-8 ####CALE Roth ([id number])[facility] ([facility])[address]22 [place] [address] Neutrophils/100 WBC (Bld) 79.1 % Normal 40.0-80.0 [facility] Comment on above: Performed By: #### 5 7021-8 ####CALE Roth ([id number])[facility] ([facility])[address] [place] [address] Nucleated RBC/100 WBC (Bld) [Ratio] 0.0 /100 WBCs Normal 0.0-0.0 [facility] Comment on above: Performed By: #### 5 7021-8 ####CALE TOSCANOMOISAURA Roth ([id number])[facility] ([facility])[address] [place] [address] Platelets (Bld) [#/Vol] 144 x10*3/uL Low 150-450 [facility] Comment on above: Performed By: #### 5 7021-8 ####CALE Roth (69030)[facility] ([facility])[address] [place] [address] RBC (Bld) [#/Vol] 3.58 x10*6/uL Low 4.00-5.20 [facility] Comment on above: Performed By: #### 5 7021-8 ####CALE Roth ([id number])[facility] ([facility])[address] [place] [address] WBC (Bld) [#/Vol] 8.2 x10*3/uL Normal 4.4-11.3 [facility] Comment on above: Performed By: #### 5 7021-8 ####CALE Roth ([id number])[facility] ([facility])[address] [place] [address] Calcium.ionizedon 03-07-2025 Calcium.ionized (Bld) [Moles/Vol] 1.21 mmol/L Normal 1.1-1.33 [facility] Comment on above: Result Comment: The performance characteristics of ionized calcium testedin heparinized plasma or serum have been validated by [facility] site where testing is performed.Testing on heparinized plasma or serum is not approved bythe FDA; however, such approval is not necessary. Performed By: #### 1 994-3 ####CALE Roth ([id number])[facility] ([facility])[address] [place] [address] Glucose Test strip manual (B ld) [Mass/Vol]on 03-07-2025 Glucose [Mass/Vol] 132 mg/dL High 74-99 [facility] Comment on above: Performed By: #### 2 341-6 ####CALE Roth ([id number])[facility] ([facility])[address] [place] [address] Glucose [Mass/Vol] 93 mg/dL Normal 74-99 [facility] Comment on above: Performed By: #### 2 341-6 ####CALE Roth ([id number])[facility] ([facility])[address]39 [place] [address] Glucose [Mass/Vol] 102 mg/dL High 74-99 [facility] Comment on above: Performed By: #### 2 341-6 ####CALE Roth ([id number])[facility] ([facility])[address] [place] [address] Glucose [Mass/Vol] 100 mg/dL High 74-99 [facility] Comment on above: Performed By: #### 2 341-6 ####CALE Roth ([id number])[facility] ([facility])[address] [place] [address] Glucose [Mass/Vol] 108 mg/dL High 74-99 [facility] Comment on above: Performed By: #### 2 341-6 ####CALE Roth ([id number])[facility] ([facility])[address] [place] [address] Magnesiumon 03-07-2025 Magnesium [Mass/Vol] 2.09 mg/dL Normal 1.60-2.40 [facility] Comment on above: Performed By: #### 1 9123-9 ####CALE Roth ([id number])[facility] ([facility])[address] [place] [address] Renal function 2000 panelon 03-07-2025 Albumin BCP dye [Mass/Vol] 3.9 g/dL Normal 3.4-5.0 [facility] Comment on above: Performed By: #### 2 4362-6 ####CALE Roth ([id number])[facility] ([facility])[address] [place] [address] Anion gap [Moles/Vol] 14 mmol/L Normal 10-20 [facility] Comment on above: Performed By: #### 2 4362-6 ####CALE Roth ([id number])[facility] ([facility])[id number] [place] [address] Calcium [Mass/Vol] 8.8 mg/dL Normal 8.6-10.6 [facility] Comment on above: Performed By: #### 2 4362-6 ####CALE Roth ([id number])[facility] ([facility])[address] [place] [address] Chloride [Moles/Vol] 109 mmol/L High 98-107 [facility] Comment on above: Performed By: #### 2 4362-6 ####CALE Roth ([id number])[facility] ([facility])[address] [place] [address] CO2 [Moles/Vol] 24 mmol/L Normal 21-32 [facility] Comment on above: Performed By: #### 2 4362-6 ####CALE Roth ([id number])[facility] ([facility])[address] [place] [address] Creatinine [Mass/Vol] 0.44 mg/dL Low 0.50-1.05 [facility] Comment on above: Performed By: #### 2 4362-6 ####CALE CAI L ([id number])[facility] ([facility])[address] [place] [address] Glomerular filtration rate >90 Normal >60 [facility] Comment on above: Result Comment: Calc ulations of estimated GFR are performed using the 2020 CKD-EPI Study Refit equation without the race variable for the IDMS-Traceable creatinine methods.https://jasn.asnjournals.org/content/early/ASN .6655316649 Performed By: #### 2 4362-6 ####CALE CAI L ([id number])[facility] ([facility])[address] [place] [address] Glucose [Mass/Vol] 115 mg/dL High 74-99 [facility] Comment on above: Performed By: #### 2 4362-6 ####CALE Roth ([id number])[facility] ([facility])[address] [facility] [place] [address] Phosphate [Mass/Vol] 2.6 mg/dL Normal 2.5-4.9 [facility] Comment on above: Performed By: #### 2 4362-6 ####CALE Roth ([id number])[facility] ([facility])[address] [place] [address] Potassium [Moles/Vol] 3.5 mmol/L Normal 3.5-5.3 [facility] Comment on above: Performed By: #### 2 4362-6 ####CALE Roth ([id number])[facility] ([facility])[address] [place] [address] Sodium [Moles/Vol] 143 mmol/L Normal 136-145 [facility] Comment on above: Performed By: #### 2 4362-6 ####CALE Roth ([id number])[facility] ([facility])[address] [place] [address] Urea nitrogen [Mass/Vol] 13 mg/dL Normal 6-23 [facility] Comment on above: Performed By: #### 2 4362-6 ####CALE Roth ([id number])[facility] ([facility])[address] [place] [address] Sodiumon 03-07-2025 Sodium [Moles/Vol] 140 mmol/L Normal 136-145 [facility] Comment on above: Performed By: #### 2 951-2 ####CALE CAI L ([id number])[facility] ([facility])[address] [place] [address] Sodium [Moles/Vol] 141 mmol/L Normal 136-145 [facility] Comment on above: Performed By: #### 2 951-2 ####CALE CAI L ([id number])[facility] ([facility])[address] [place] [address] Sodium [Moles/Vol] 141 mmol/L Normal 136-145 [facility] Comment on above: Performed By: #### 2 951-2 ####CALE Roth ([id number])[facility] ([facility])[address] [place] [address] Triglycerideon 03-07-2025 Triglyceride [Mass/Vol] 96 mg/dL Normal 0-114 [facility] Comment on above: Order Comment: While [...] Performed By: #### 2 571-8 ####CALE Roth ([id number])[facility] ([facility])[address] [place] [address] CBC W Auto Differential pane l (Bld)on 03-06-2025 Basophils (Bld) [#/Vol] 0.01 x10*3/uL Normal 0.00-0.10 [facility] Comment on above: Performed By: #### 5 7021-8 ####CALE Roth ([id number])[facility] ([facility])[address] [place] [address] Basophils/100 WBC (Bld) 0.1 % Normal 0.0-2.0 [facility] Comment on above: Performed By: #### 5 7021-8 ####CALE Roth ([id number])[facility] ([facility])[address] [place] [address] Eosinophils (Bld) [#/Vol] 0.02 x10*3/uL Normal 0.00-0.70 [facility] Comment on above: Performed By: #### 5 7021-8 ####CALE Roth ([id number])[facility] ([facility])[address] [place] [address] Eosinophils/100 WBC (Bld) 0.2 % Normal 0.0-6.0 [facility] Comment on above: Performed By: #### 5 7021-8 ####CALE Roth ([id number])[facility] ([facility])[address] [place] [address] Erythrocyte distribution width (RBC) [Ratio] 12.2 % Normal 11.5-14.5 [facility] Comment on above: Performed By: #### 5 7021-8 ####CALE Roth ([id number])[facility] ([facility])[address] [place] [address] Hematocrit (Bld) [Volume fraction] 33.2 % Low 36.0-46.0 [facility] Comment on above: Performed By: #### 5 7021-8 ####CALE Roth ([id number])[facility] ([facility])[id number] [place] [address] Hemoglobin (Bld) [Mass/Vol] 11.3 g/dL Low 12.0-16.0 [facility] Comment on above: Performed By: #### 5 7021-8 ####CALE Roth ([id number])[facility] ([facility])[address] [place] [address] Immature granulocytes (Bld) [#/Vol] 0.05 x10*3/uL Normal 0.00-0.70 [facility] Comment on above: Performed By: #### 5 7021-8 ####CALE Roth ([id number])[facility] ([facility])[address] [place] [address] Immature granulocytes/100 WBC (Bld) 0.5 % Normal 0.0-0.9 [facility] Comment on above: Result Comment: Aleisha ture Granulocyte Count (IG) includes promyelocytes, myelocytes and metamyelocytes but does not include bands. Percent differential counts (%) should be interpreted in the context of the absolute cell counts (cells/UL). Performed By: #### 5 7021-8 ####CALE Roth ([id number])[facility] ([facility])[address] [place] [address] Lymphocytes (Bld) [#/Vol] 1.18 x10*3/uL Low 1.20-4.80 [facility] Comment on above: Performed By: #### 5 7021-8 ####CALE Roth ([id number])[facility] ([facility])[address] [place] [address] Lymphocytes/100 WBC (Bld) 11.7 % Normal 13.0-44.0 [facility] Comment on above: Performed By: #### 5 7021-8 ####CALE Roth ([id number])[facility] ([facility])[address] [place] [address] MCH (RBC) [Entitic mass] 30.0 pg Normal 26.0-34.0 [facility] Comment on above: Performed By: #### 5 7021-8 ####CALE Roth ([id number])[facility] ([facility])[address] [place] [address] MCHC (RBC) [Mass/Vol] 34.0 g/dL Normal 32.0-36.0 [facility] Comment on above: Performed By: #### 5 7021-8 ####CALE TOSCANOMOISAURA L ([id number])[facility] ([facility])[address] [place] [address] MCV (RBC) [Entitic vol] 88 fL Normal 80-100 [facility] Comment on above: Performed By: #### 5 7021-8 ####CALE Roth ([id number])[facility] ([facility])[address] [place] [address] Monocytes (Bld) [#/Vol] 0.73 x10*3/uL Normal 0.10-1.00 [facility] Comment on above: Performed By: #### 5 7021-8 ####CALE Roth ([id number])[facility] ([facility])[address] [place] [address] Monocytes/100 WBC (Bld) 7.2 % Normal 2.0-10.0 [facility] Comment on above: Performed By: #### 5 7021-8 ####ACLE CAI L ([id number])[facility] ([facility])[address] [place] [address] Neutrophils (Bld) [#/Vol] 8.08 x10*3/uL High 1.20-7.70 [facility] Comment on above: Result Comment: Perc ent differential counts (%) should be interpreted in the context of the absolute cell counts (cells/uL). Performed By: #### 5 7021-8 ####CALE CAI L ([id number])[facility] ([facility])[address] [place] [address] Neutrophils/100 WBC (Bld) 80.3 % Normal 40.0-80.0 [facility] Comment on above: Performed By: #### 5 7021-8 ####CALE CAI L ([id number])[facility] ([facility])[address]74 [place] [address] Nucleated RBC/100 WBC (Bld) [Ratio] 0.0 /100 WBCs Normal 0.0-0.0 [facility] Comment on above: Performed By: #### 5 7021-8 ####CALE CAI L ([id number])[facility] ([facility])[address] [place] [address] Platelets (Bld) [#/Vol] 164 x10*3/uL Normal 150-450 [facility] Comment on above: Performed By: #### 5 7021-8 ####CALE Roth ([id number])[facility] ([facility])[address] [place] [address] RBC (Bld) [#/Vol] 3.77 x10*6/uL Low 4.00-5.20 [facility] Comment on above: Performed By: #### 5 7021-8 ####CALE Roth ([id number])[facility] ([facility])[address] [place] [address] WBC (Bld) [#/Vol] 10.1 x10*3/uL Normal 4.4-11.3 [facility] Comment on above: Performed By: #### 5 7021-8 ####CALE Roth ([id number])[facility] ([facility])[address] [place] [address] CT ANGIO CHEST FOR PULMONARY EMBOLISMon 03-06-2025 CT ANGIO CHEST FOR PULMONARY EMBOLISM Normal [facility] CT HEAD WO IV CONTRASTon CT HEAD WO IV CONTRAST Normal [facility] Calcium.ionizedon 03-06-2025 Calcium.ionized (Bld) [Moles/Vol] 1.19 mmol/L Normal 1.1-1.33 [facility] Comment on above: Result Comment: The performance characteristics of ionized calcium testedin heparinized plasma or serum have been validated by [facility] site where testing is performed.Testing on heparinized plasma or serum is not approved bythe FDA; however, such approval is not necessary. Performed By: #### 1 994-3 ####CALE Roth ([id number])[facility] ([facility])[address] [place] [address] ECG 12-LEADon 03-06-2025 ECG 12-LEAD Ventricular Rate 95 Atrial Rate 95 P-R Interval 162 QRS Duration 80 Q-T Interval 352 QTC Calculation(Bazett) 442 P [place] 81 R [place] 91 T [place] 80 QRS Count 16 Q Onset 219 P Onset 138 P Offset 190 T Offset 395 QTC Fredericia 410 Diagnosis Normal sinus rhythm Rightward axis Borderline ECG When compared with ECG of 06-MAR-2025 05:43, No significant change was found Confirmed by Erasmo Peña ([id number]) on 03/10/2025 12:34:21 PM Normal [facility] Gas and Carbon monoxide and Electrolytes panel (BldA)on 03-06-2025 Anion gap 4 (BldA) [Moles/Vol] 10 mmo/L Normal 10-25 [facility] Comment on above: Performed By: #### 9 3685-6 ####CALE Roth ([id number])[facility] ([facility])[address]206 [place] [address] Base excess Calc (Bld) [Moles/Vol] -1.8000 mmol/L Normal -2.0-3.0 [facility] Comment on above: Performed By: #### 9 3685-6 ####CALE Roth ([id number])[facility] ([facility])[address] [place] [address] Calcium.ionized (BldA) [Moles/Vol] 1.14 mmol/L Normal 1.10-1.33 [facility] Comment on above: Performed By: #### 9 3685-6 ####CALE Roth ([id number])[facility] ([facility])[address]26 [place] [address] Chloride (BldA) [Moles/Vol] 115 mmol/L High 98-107 [facility] Comment on above: Performed By: #### 9 3685-6 ####CALE Roth ([id number])[facility] ([facility])[address] [place] [address] CO2 (Bld) [Partial pressure] 39 mm Hg Normal 38-42 [facility] Comment on above: Performed By: #### 9 3685-6 ####CALE Roth ([id number])[facility] ([facility])[address]32 [place] [address] Glucose [Mass/Vol] 113 mg/dL High 74-99 [facility] Comment on above: Performed By: #### 9 3685-6 ####CALE Roth ([id number])[facility] ([facility])[address]462 [place] [address] HCO3 (Bld) [Moles/Vol] 23.1 mmol/L Normal 22.0-26.0 [facility] Comment on above: Performed By: #### 9 3685-6 ####CALE Roth ([id number])[facility] ([facility])[address]19 [place] [address] Hematocrit Est (Bld) [Volume fraction] 33.0 % Low 36.0-46.0 [facility] Comment on above: Performed By: #### 9 3685-6 ####CALE Roth ([id number])[facility] ([facility])[address] [place] [address] Hemoglobin (Bld) [Mass/Vol] 10.9 g/dL Low 12.0-16.0 [facility] Comment on above: Performed By: #### 9 3685-6 ####CALE Roth ([id number])[facility] ([facility])[address] [place] [address] Inhaled oxygen concentration 50 % Normal [facility] Comment on above: Performed By: #### 9 3685-6 ####CALE Roth ([id number])[facility] ([facility])[address] [place] [address] Lactate (BldA) [Moles/Vol] 0.5 mmol/L Normal 0.4-2.0 [facility] Comment on above: Performed By: #### 9 3685-6 ####CALE Roth ([id number])[facility] ([facility])[address]407 [place] [address] Oxygen (Bld) [Partial pressure] 119 mm Hg High 85-95 [facility] Comment on above: Performed By: #### 9 3685-6 ####CALE Roth ([id number])[facility] ([facility])[address]94 [place] [address] Oxyhemoglobin (BldA) [Mass fraction] 98.0 % Normal 94.0-98.0 [facility] Comment on above: Performed By: #### 9 3685-6 ####CALE Roth ([id number])[facility] ([facility])[address] [place] [address] pH (Bld) 7.38 [pH] Normal 7.38-7.42 [facility] Comment on above: Performed By: #### 9 3685-6 ####CALE Roth ([id number])[facility] ([facility])[address] [place] [address] Potassium (BldA) [Moles/Vol] 3.6 mmol/L Normal 3.5-5.3 [facility] Comment on above: Performed By: #### 9 7625-6 ####CALE Roth ([id number])[facility] ([facility])[address] [place] [address] Sodium (BldA) [Moles/Vol] 144 mmol/L Normal 136-145 [facility] Comment on above: Performed By: #### 9 2525-6 ####CALE Roth ([id number])[facility] ([facility])[address] [place] [address] Anion gap 4 (BldA) [Moles/Vol] 12 mmo/L Normal 10-25 [facility] Comment on above: Performed By: #### 9 3085-6 ####CALE Roth ([id number])[facility] ([facility])[address] [place] [address] Base excess Calc (Bld) [Moles/Vol] -0.9000 mmol/L Normal -2.0-3.0 [facility] Comment on above: Performed By: #### 9 3588-6 ####CALE Roth ([id number])[facility] ([facility])[address] [place] [address] Calcium.ionized (BldA) [Moles/Vol] 1.18 mmol/L Normal 1.10-1.33 [facility] Comment on above: Performed By: #### 9 3685-6 ####CALE Roth ([id number])[facility] ([facility])[address]84 [place] [address] Chloride (BldA) [Moles/Vol] 114 mmol/L High 98-107 [facility] Comment on above: Performed By: #### 9 3685-6 ####CALE CAI L ([id number])[facility] ([facility])[address]13 [place] [address] CO2 (Bld) [Partial pressure] 37 mm Hg Low 38-42 [facility] Comment on above: Performed By: #### 9 3685-6 ####CALE Roth ([id number])[facility] ([facility])[address] [place] [address] Glucose [Mass/Vol] 118 mg/dL High 74-99 [facility] Comment on above: Performed By: #### 9 8405-6 ####CALE Roth ([id number])[facility] ([facility])[address]14 [place] [address] HCO3 (Bld) [Moles/Vol] 23.5 mmol/L Normal 22.0-26.0 [facility] Comment on above: Performed By: #### 9 3685-6 ####CALE Roth ([id number])[facility] ([facility])[address] [place] [address] Hematocrit Est (Bld) [Volume fraction] 35.0 % Low 36.0-46.0 [facility] Comment on above: Performed By: #### 9 3685-6 ####CALE CAI L ([id number])[facility] ([facility])[address] [place] [address] Hemoglobin (Bld) [Mass/Vol] 11.7 g/dL Low 12.0-16.0 [facility] Comment on above: Performed By: #### 9 1855-6 ####CALE Roth ([id number])[facility] ([facility])[address]68 [place] [address] Inhaled oxygen concentration 30 % Normal [facility] Comment on above: Performed By: #### 9 3685-6 ####CALE Roth ([id number])[facility] ([facility])[address]267 [place] [address] Lactate (BldA) [Moles/Vol] 0.6 mmol/L Normal 0.4-2.0 [facility] Comment on above: Performed By: #### 9 3685-6 ####CALE Roth (26395)[facility] ([facility])[address]99 [place] [address] Oxygen (Bld) [Partial pressure] 67 mm Hg Low 85-95 [facility] Comment on above: Performed By: #### 9 3685-6 ####CALE Roth ([id number])[facility] ([facility])[address] [place] [address] Oxyhemoglobin (BldA) [Mass fraction] 93.6 % Low 94.0-98.0 [facility] Comment on above: Performed By: #### 9 7315-6 ####CALE Roth ([id number])[facility] ([facility])[address] [place] [address] pH (Bld) 7.41 [pH] Normal 7.38-7.42 [facility] Comment on above: Performed By: #### 9 2255-6 ####CALE Roth ([id number])[facility] ([facility])[address] [place] [address] Potassium (BldA) [Moles/Vol] 4.1 mmol/L Normal 3.5-5.3 [facility] Comment on above: Performed By: #### 9 2295-6 ####CALE Roth ([id number])[facility] ([facility])[address] [place] [address] Sodium (BldA) [Moles/Vol] 145 mmol/L Normal 136-145 [facility] Comment on above: Performed By: #### 9 3685-6 ####CALE Roth ([id number])[facility] ([facility])[address]48 [place] [address] Anion gap 4 (BldA) [Moles/Vol] 10 mmo/L Normal 10-25 [facility] Comment on above: Performed By: #### 9 3685-6 ####CALE CAI L ([id number])[facility] ([facility])[address]34 [place] [address] Base excess Calc (Bld) [Moles/Vol] -0.9000 mmol/L Normal -2.0-3.0 [facility] Comment on above: Performed By: #### 9 3685-6 ####CALE Roth ([id number])[facility] ([facility])[address]006 [place] [address] Calcium.ionized (BldA) [Moles/Vol] 1.16 mmol/L Normal 1.10-1.33 [facility] Comment on above: Performed By: #### 9 3685-6 ####CALE CAI L ([id number])[facility] ([facility])[address]184 [place] [address] Chloride (BldA) [Moles/Vol] 115 mmol/L High 98-107 [facility] Comment on above: Performed By: #### 9 3685-6 ####CALE CAI L ([id number])[facility] ([facility])[address] [place] [address] CO2 (Bld) [Partial pressure] 37 mm Hg Low 38-42 [facility] Comment on above: Performed By: #### 9 3685-6 ####CALE CAI L ([id number])[facility] ([facility])[address]704 [place] [address] Glucose [Mass/Vol] 117 mg/dL High 74-99 [facility] Comment on above: Performed By: #### 9 3685-6 ####CALE CAI L ([id number])[facility] ([facility])[address]40 [place] [address] HCO3 (Bld) [Moles/Vol] 23.5 mmol/L Normal 22.0-26.0 [facility] Comment on above: Performed By: #### 9 3685-6 ####CALE Roth ([id number])[facility] ([facility])[id number] [place] [address] Hematocrit Est (Bld) [Volume fraction] 35.0 % Low 36.0-46.0 [facility] Comment on above: Performed By: #### 9 3685-6 ####CALE Roth ([id number])[facility] ([facility])[address] [place] [address] Hemoglobin (Bld) [Mass/Vol] 11.8 g/dL Low 12.0-16.0 [facility] Comment on above: Performed By: #### 9 8705-6 ####CALE Roth ([id number])[facility] ([facility])[address] [place] [address] 03460 Inhaled oxygen concentration 60 % Normal [facility] Comment on above: Performed By: #### 9 4435-6 ####CALE Roth ([id number])[facility] ([facility])[id number] [place] [address] [id number] Lactate (BldA) [Moles/Vol] 0.6 mmol/L Normal 0.4-2.0 [facility] Comment on above: Performed By: #### 9 3685-6 ####CALE Roth ([id number])[facility] ([facility])[id number] [place] [address] 38521 Oxygen (Bld) [Partial pressure] 94 mm Hg Normal 85-95 [facility] Comment on above: Performed By: #### 9 3685-6 ####CALE Roth ([id number])[facility] ([facility])[id number] [place] [address] 18674 Oxyhemoglobin (BldA) [Mass fraction] 96.6 % Normal 94.0-98.0 [facility] Comment on above: Performed By: #### 9 3685-6 ####CALE Roth ([id number])[facility] ([facility])[id number] [place] [address] 44608 pH (Bld) 7.41 [pH] Normal 7.38-7.42 [facility] Comment on above: Performed By: #### 9 3685-6 ####CALE Roth ([id number])[facility] ([facility])[id number] [place] [address] 14327 Potassium (BldA) [Moles/Vol] 3.9 mmol/L Normal 3.5-5.3 [facility] Comment on above: Performed By: #### 9 3685-6 ####CALE Roth ([id number])[facility] ([facility])[address] [place] [address] 75252 Sodium (BldA) [Moles/Vol] 145 mmol/L Normal 136-145 [facility] Comment on above: Performed By: #### 9 3685-6 ####CALE Roth ([id number])[facility] ([facility])[id number] [place] [address] 10073 Anion gap 4 (BldA) [Moles/Vol] 11 mmo/L Normal 10-25 [facility] Comment on above: Performed By: #### 9 3685-6 ####CALE Roth ([id number])[facility] ([facility])[address] [place] [address] 80946 Base excess Calc (Bld) [Moles/Vol] -1.2000 mmol/L Normal -2.0-3.0 [facility] Comment on above: Performed By: #### 9 3685-6 ####CALE Roth ([id number])[facility] ([facility])[id number] [place] [address] 26326 Calcium.ionized (BldA) [Moles/Vol] 1.15 mmol/L Normal 1.10-1.33 [facility] Comment on above: Performed By: #### 9 3685-6 ####CALE Roth ([id number])[facility] ([facility])[address] [place] [address] Chloride (BldA) [Moles/Vol] 115 mmol/L High 98-107 [facility] Comment on above: Performed By: #### 9 3685-6 ####CALE CAI L ([id number])[facility] ([facility])[address] [place] [address] CO2 (Bld) [Partial pressure] 34 mm Hg Low 38-42 [facility] Comment on above: Performed By: #### 9 3685-6 ####CALE Roth ([id number])[facility] ([facility])[address] [place] [address] 25612 Glucose [Mass/Vol] 117 mg/dL High 74-99 [facility] Comment on above: Performed By: #### 9 3685-6 ####CALE CAI L ([id number])[facility] ([facility])[address] [place] [address] 94616 HCO3 (Bld) [Moles/Vol] 22.6 mmol/L Normal 22.0-26.0 [facility] Comment on above: Performed By: #### 9 3685-6 ####CALE CAI L ([id number])[facility] ([facility])[address] [place] [address] 18839 Hematocrit Est (Bld) [Volume fraction] 36.0 % Normal 36.0-46.0 [facility] Comment on above: Performed By: #### 9 3685-6 ####CALE CAI L ([id number])[facility] ([facility])[address]34 [place] [address] Hemoglobin (Bld) [Mass/Vol] 11.9 g/dL Low 12.0-16.0 [facility] Comment on above: Performed By: #### 9 3685-6 ####CALE CAI L ([id number])[facility] ([facility])[address] [place] [address] 41982 Inhaled oxygen concentration 50 % Normal [facility] Comment on above: Performed By: #### 9 3685-6 ####CALE Roth ([id number])[facility] ([facility])[address]14 [place] [address] Lactate (BldA) [Moles/Vol] 0.6 mmol/L Normal 0.4-2.0 [facility] Comment on above: Performed By: #### 9 3685-6 ####CALE Roth ([id number])[facility] ([facility])[address] [place] [address] 67100 Oxygen (Bld) [Partial pressure] 72 mm Hg Low 85-95 [facility] Comment on above: Performed By: #### 9 3685-6 ####CALE Roth ([id number])[facility] ([facility])[address] [place] [address] 31089 Oxyhemoglobin (BldA) [Mass fraction] 94.7 % Normal 94.0-98.0 [facility] Comment on above: Performed By: #### 9 3685-6 ####CALE Roth ([id number])[facility] ([facility])[address] [place] [address] 54668 pH (Bld) 7.43 [pH] High 7.38-7.42 [facility] Comment on above: Performed By: #### 9 3685-6 ####CALE Roth ([id number])[facility] ([facility])[address] [place] [address] 55040 Potassium (BldA) [Moles/Vol] 3.8 mmol/L Normal 3.5-5.3 [facility] Comment on above: Performed By: #### 9 3685-6 ####CALE Roth ([id number])[facility] ([facility])[address] [place] [address] 11411 Sodium (BldA) [Moles/Vol] 145 mmol/L Normal 136-145 [facility] Comment on above: Performed By: #### 9 8425-6 ####CALE Roth ([id number])[facility] ([facility])[address] [facility] [place] [address] Glucose Test strip manual (B ld) [Mass/Vol]on 03-06-2025 Glucose [Mass/Vol] 97 mg/dL Normal 74-99 [facility] Comment on above: Performed By: #### 2 341-6 ####CALE Roth ([id number])[facility] ([facility])[address]402 [place] [address] Glucose [Mass/Vol] 91 mg/dL Normal 74-99 [facility] Comment on above: Performed By: #### 2 341-6 ####CALE Roth ([id number])[facility] ([facility])[address]15 [place] [address] Glucose [Mass/Vol] 98 mg/dL Normal 74-99 [facility] Comment on above: Performed By: #### 2 341-6 ####CALE Roth (48037)[facility] ([facility])64791 [place] [address] Glucose [Mass/Vol] 103 mg/dL High 74-99 [facility] Comment on above: Performed By: #### 2 341-6 ####CALE Roth ([id number])[facility] ([facility])[address]056 [facility] [place] [address] Glucose [Mass/Vol] 97 mg/dL Normal 74-99 [facility] Comment on above: Performed By: #### 2 341-6 ####CALE Roth ([id number])[facility] ([facility])64494 [place] [address] Glucose [Mass/Vol] 102 mg/dL High 74-99 [facility] Comment on above: Performed By: #### 2 341-6 ####CALE Roth ([id number])[facility] ([facility])[address] [facility] [place] [address] Magnesiumon 03-06-2025 Magnesium [Mass/Vol] 2.28 mg/dL Normal 1.60-2.40 [facility] Comment on above: Performed By: #### 1 9123-9 ####CALE Roth ([id number])[facility] ([facility])[address]64 [place] [address] Natriuretic peptide B [Mass/ Vol]on 03-06-2025 Natriuretic peptide B (Bld) [Mass/Vol] 56 pg/mL Normal 0-99 [facility] Comment on above: Order Comment: <100 pg/mL - Heart failure [id number] pg/mL - Intermediate probability of acute heart [...] Performed By: #### 3 0934-4 ####CALE Roth ([id number])[facility] ([facility])[address]87 [place] [address] Renal function 2000 panelon 03-06-2025 Albumin BCP dye [Mass/Vol] 4.1 g/dL Normal 3.4-5.0 [facility] Comment on above: Performed By: #### 2 4362-6 ####CALE Roth ([id number])[facility] ([facility])[address]208 [place] [address] Anion gap [Moles/Vol] 11 mmol/L Normal 10-20 [facility] Comment on above: Performed By: #### 2 4362-6 ####CALE Roth ([id number])[facility] ([facility])[address] [place] [address] 21274 Calcium [Mass/Vol] 9.0 mg/dL Normal 8.6-10.6 [facility] Comment on above: Performed By: #### 2 4362-6 ####CALE Roth ([id number])[facility] ([facility])[address]134 [place] [address] Chloride [Moles/Vol] 114 mmol/L High 98-107 [facility] Comment on above: Performed By: #### 2 4362-6 ####CALE Roth ([id number])[facility] ([facility])[address]997 [place] [address] CO2 [Moles/Vol] 24 mmol/L Normal 21-32 [facility] Comment on above: Performed By: #### 2 4362-6 ####CALE Roth ([id number])[facility] ([facility])[address]883 [place] [address] Creatinine [Mass/Vol] 0.47 mg/dL Low 0.50-1.05 [facility] Comment on above: Performed By: #### 2 4362-6 ####CALE Roth ([id number])[facility] ([facility])[address]309 [place] [address] Glomerular filtration rate >90 Normal >60 [facility] Comment on above: Result Comment: Calc ulations of estimated GFR are performed using the 2020 CKD-EPI Study Refit equation without the race variable for the IDMS-Traceable creatinine methods.https://jasn.asnjournals.org/content//ASN .7470430402 Performed By: #### 2 4362-6 ####CALE Roth ([id number])[facility] ([facility])11035 [place] [address] Glucose [Mass/Vol] 131 mg/dL High 74-99 [facility] Comment on above: Performed By: #### 2 4362-6 ####CALE Roth ([id number])[facility] ([facility])75184 [place] [address] Phosphate [Mass/Vol] 1.8 mg/dL Low 2.5-4.9 [facility] Comment on above: Performed By: #### 2 4362-6 ####CALE Roth ([id number])[facility] ([facility])68767 [place] [address] Potassium [Moles/Vol] 3.3 mmol/L Low 3.5-5.3 [facility] Comment on above: Performed By: #### 2 4362-6 ####CALE Roth ([id number])[facility] ([facility])[address]777 [place] [address] Urea nitrogen [Mass/Vol] 11 mg/dL Normal 6-23 [facility] Comment on above: Performed By: #### 2 4362-6 ####CALE Roth ([id number])[facility] ([facility])[address]42 [place] [address] Sodiumon 03-06-2025 Sodium [Moles/Vol] 145 mmol/L Normal 136-145 [facility] Comment on above: Performed By: #### 2 951-2 ####CALE Roth ([id number])[facility] ([facility])[address]121 [place] [address] Sodium [Moles/Vol] 144 mmol/L Normal 136-145 [facility] Comment on above: Performed By: #### 2 951-2 ####CALE Roth ([id number])[facility] ([facility])[address]73 [place] [address] Sodium [Moles/Vol] 146 mmol/L High 136-145 [facility] Comment on above: Performed By: #### 2 951-2 ####CALE Roth ([id number])[facility] ([facility])[address]70 [place] [address] Performed By: #### 2 4362-6 ####CALE CAI L (33911)[facility] ([facility])[address]29 [place] [address] Triglycerideon 03-06-2025 Triglyceride [Mass/Vol] 114 mg/dL Normal 0-114 [facility] Comment on above: Order Comment: While [...] Performed By: #### 2 571-8 ####CALE Roth ([id number])[facility] ([facility])[address]326 [place] [address] Troponin I.cardiac panelon 0 03-06-2025 Tropinin I.cardiac panel High sensitivity method <3 Normal 0-34 [facility] Comment on above: Order Comment: Less [...] is performed using a differenttesting methodology at [facility] than at [facility]. Direct result comparisons should onlybe made within the same method. Performed By: #### 8 9577-1 ####CALE Roth ([id number])[facility] ([facility])[address]62 [place] [address] XR CHEST 1 VIEWon 03-06-2025 XR CHEST 1 VIEW Normal [facility] CBC W Auto Differential pane l (Bld)on 03-05-2025 Basophils (Bld) [#/Vol] 0.01 x10*3/uL Normal 0.00-0.10 [facility] Comment on above: Performed By: #### 5 7021-8 ####CALE Roth ([id number])[facility] ([facility])[address]51 [place] [address] Basophils/100 WBC (Bld) 0.1 % Normal 0.0-2.0 [facility] Comment on above: Performed By: #### 5 7021-8 ####CALE Roth ([id number])[facility] ([facility])[address] [place] [address] 27844 Eosinophils (Bld) [#/Vol] 0.00 x10*3/uL Normal 0.00-0.70 [facility] Comment on above: Performed By: #### 5 7021-8 ####CALE Roth ([id number])[facility] ([facility])87349 [place] [address] Eosinophils/100 WBC (Bld) 0.0 % Normal 0.0-6.0 [facility] Comment on above: Performed By: #### 5 7021-8 ####CALE Roth (84293)[facility] ([facility])[address]17 [place] [address] Erythrocyte distribution width (RBC) [Ratio] 11.9 % Normal 11.5-14.5 [facility] Comment on above: Performed By: #### 5 7021-8 ####CALE CAI L ([id number])[facility] ([facility])[address]20 [place] [address] Hematocrit (Bld) [Volume fraction] 36.5 % Normal 36.0-46.0 [facility] Comment on above: Performed By: #### 5 7021-8 ####CALE CAI L (47932)[facility] ([facility])[address]310 [place] [address] Hemoglobin (Bld) [Mass/Vol] 12.4 g/dL Normal 12.0-16.0 [facility] Comment on above: Performed By: #### 5 7021-8 ####CALE Roth ([id number])[facility] ([facility])[address]169 [place] [address] Immature granulocytes (Bld) [#/Vol] 0.08 x10*3/uL Normal 0.00-0.70 [facility] Comment on above: Performed By: #### 5 7021-8 ####CALE Roth ([id number])[facility] ([facility])[address]908 [place] [address] Immature granulocytes/100 WBC (Bld) 0.6 % Normal 0.0-0.9 [facility] Comment on above: Result Comment: Aleisha ture Granulocyte Count (IG) includes promyelocytes, myelocytes and metamyelocytes but does not include bands. Percent differential counts (%) should be interpreted in the context of the absolute cell counts (cells/UL). Performed By: #### 5 7021-8 ####CALE Roth ([id number])[facility] ([facility])03973 [place] [address] Lymphocytes (Bld) [#/Vol] 0.63 x10*3/uL Low 1.20-4.80 [facility] Comment on above: Performed By: #### 5 7021-8 ####CALE Roth ([id number])[facility] ([facility])[address]17 [place] [address] Lymphocytes/100 WBC (Bld) 5.1 % Normal 13.0-44.0 [facility] Comment on above: Performed By: #### 5 7021-8 ####CALE Roth ([id number])[facility] ([facility])[address]64 [place] [address] MCH (RBC) [Entitic mass] 29.9 pg Normal 26.0-34.0 [facility] Comment on above: Performed By: #### 5 7021-8 ####CALE Roth ([id number])[facility] ([facility])[address]21 [place] [address] MCHC (RBC) [Mass/Vol] 34.0 g/dL Normal 32.0-36.0 [facility] Comment on above: Performed By: #### 5 7021-8 ####CALE Roth ([id number])[facility] ([facility])[address]72 [place] [address] MCV (RBC) [Entitic vol] 88 fL Normal 80-100 [facility] Comment on above: Performed By: #### 5 7021-8 ####CALE Roth ([id number])[facility] ([facility])05751 [place] [address] Monocytes (Bld) [#/Vol] 0.99 x10*3/uL Normal 0.10-1.00 [facility] Comment on above: Performed By: #### 5 7021-8 ####CALE Roth ([id number])[facility] ([facility])[address]339 [place] [address] Monocytes/100 WBC (Bld) 8.0 % Normal 2.0-10.0 [facility] Comment on above: Performed By: #### 5 7021-8 ####CALE Roth (78251)[facility] ([facility])83153 [place] [address] Neutrophils (Bld) [#/Vol] 10.74 x10*3/uL High 1.20-7.70 [facility] Comment on above: Result Comment: Perc ent differential counts (%) should be interpreted in the context of the absolute cell counts (cells/uL). Performed By: #### 5 7021-8 ####CALE Roth ([id number])[facility] ([facility])[address]691 [place] [address] Neutrophils/100 WBC (Bld) 86.2 % Normal 40.0-80.0 [facility] Comment on above: Performed By: #### 5 7021-8 ####CALE Roth ([id number])[facility] ([facility])[address]78 [place] [address] Nucleated RBC/100 WBC (Bld) [Ratio] 0.0 /100 WBCs Normal 0.0-0.0 [facility] Comment on above: Performed By: #### 5 7021-8 ####CALE CAI L (65958)[facility] ([facility])[address] [place] [address] 10065 Platelets (Bld) [#/Vol] 173 x10*3/uL Normal 150-450 [facility] Comment on above: Performed By: #### 5 7021-8 ####CALE Roth ([id number])[facility] ([facility])[address] [place] [address] 56149 RBC (Bld) [#/Vol] 4.15 x10*6/uL Normal 4.00-5.20 [facility] Comment on above: Performed By: #### 5 7021-8 ####CALE Roth ([id number])[facility] ([facility])[address] [place] [address] 50523 WBC (Bld) [#/Vol] 12.5 x10*3/uL High 4.4-11.3 [facility] Comment on above: Performed By: #### 5 7021-8 ####CALE Roth ([id number])[facility] ([facility])[address] [place] [address] [address] HEAD WO IV CONTRASTon CT HEAD WO IV CONTRAST Normal [facility] Calcium.ionizedon 03-05-2025 Calcium.ionized (Bld) [Moles/Vol] 1.12 mmol/L Normal 1.1-1.33 [facility] Comment on above: Result Comment: The performance characteristics of ionized calcium testedin heparinized plasma or serum have been validated by [facility] laboratory site where testing is performed.Testing on heparinized plasma or serum is not approved [facility]; however, such approval is not necessary. 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 [address] [id number] 03/03/2025 Patient: KIMANI COHEN Sex: Female : [...] Prachi Kian, R.N. Scanned 1 of 2 [employer] Supervisor - KIMANI COHEN, : 2000, , Medication Ordered Medication Administration Date/Time DiphenhydrAMINE 13:51 03/03 DiphenhydrAMINE (Benadryl) IVP 25 mg given via Given (Benadryl) IVP 25 Site# 1. Medication Wastage: 25 mg wasted. - 13:54 Prachi 13:51 03/03/2025 mg (NOW x1) Michael Langston R.N. Scanned 2 of 2 Normal [facility] ED NURSES CLINICAL NOTEon ED NURSES CLINICAL NOTE Nurse Narrative - KIMANI COHEN, : 2000, , Nurse Clinical Narrative [address] [place] [address] [id number] 03/03/2025 13:11:00 Patient: KIMANI COHEN Sex: Female : 2000 Age: 24y Disposition: Transfer to [facility] Disposition Decision Time: 15:00 03/03/2025 Departure Time: 15:27 03/03/2025 TRIAGE Arrived by EMS. Historian: (patient). Primary physician (Patti Lopez). Triage time: 13:15 03/03/2025. Acuity: LEVEL 3. 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 This started just prior to arrival 30 minutes [employer]. 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 SEPSIS SCREEN: [...] 13:03/03/25 HESHAM Burciaga R.N. 13:03/03/25. Preferred Pharmacy: ([facility] in [place]). -- 13:03/03/25 HESHAM Burciaga R.N. 1 of [...] request (14:10 03/03/2025). (Spoke with Mary from [facility]. Mary is speaking with Dr. Murphy.). -- 14:11 03/03/25 EDT [facility] 14:16 03/03/25. Transfer request (14:15 03/03/2025). (Dr. Murphy is speaki (more content not included)... Normal [facility] ED ORDER SHEET (CPOE ONLY)on 03-05-2025 ED ORDER SHEET (CPOE ONLY) Order Sheet - KIMANI COHEN, : 2000, , Order Sheet [address] [place] [address] [id number] 03/03/2025 Patient: KIMANI COHEN Sex: Female : [...] K in NS. put in kride IVPB [id number] mEq at 50 mL/hr 15:54 EDT Prachi [...] (03/05/2025 07:35 EDT)] 3 of 3 Normal [facility] ED PHYSICIAN CLINICAL REPORT on 03-05-2025 ED PHYSICIAN CLINICAL REPORT Narrative - KIMANI COHEN, : 2000, , Physician Clinical Narrative [address] [address] [phone] 03/03/2025 13:11:00 Patient: KIMANI COHEN Sex: Female : 2000 Age: 24y Disposition: Transfer to [facility] Disposition Decision Time: 15:00 03/03/2025 Departure [...] 51.6 % (more content not included)... Normal [facility] ED SUPER BILLon 03-05-2025 ED SUPER BILL KIMANI Rebolledo, : 2000, , [place] [address] [place] [address] [phone] 03/03/2025 Patient: KIMANI COHEN Sex: Female : 2000 Age: 24y Facility Professional Category Item Description Code Code Quantity Fee Total Drugs Normal [facility] 714232 1 $0.00 $0.00 1000cc (780351) Nurse/E/M EMERGENCY 505451 1 $0.00 $0.00 DEPT VISIT HIGH SEVERITYFUNCJ (20706-39) Nurse/IV/IM/Infusions Hydration 632285 2 $0.00 $0.00 additional hour (30485) Nurse/IV/IM/Infusions IVP additional 268718 2 $0.00 $0.00 push (49118) Nurse/IV/IM/Infusions IVP initial (24089) 427807 1 $0.00 $0.00 Grand $0.00 Total Providers James Murphy M.D. Chief Complaint 1 of 2 KIMANI Rebolledo, : 2000, , HEADACHE and MIGRAINE HEADACHE. 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 ICD-10 Codes I60.9: Nontraumatic subarachnoid hemorrhage, unspecified 2 of 2 [facility] ED VISIT SUMMARYon ED VISIT SUMMARY Visit Overview - KIMANI MOSELEY : 2000, , Visit Overview [facility] [address] 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 [address] [id number] 03/03/2025 Patient: KIMANI COHEN Sex: Female : [...] 13:20 03/03/2025 15 2 of 2 Normal [facility] Glucose Test strip manual (B ld) [Mass/Vol]on 03-05-2025 Glucose [Mass/Vol] 120 mg/dL High [address] [place] [address] Comment on above: Performed By: #### 2 341-6 ####CALE Roth ([id number])[facility] ([facility])[id number] [place] [address] 79038 Glucose [Mass/Vol] 125 mg/dL High [address] [place] [address] Comment on above: Performed By: #### 2 341-6 ####CALE Roth ([id number])[facility] ([facility])[id number] [place] [address] 29752 Glucose [Mass/Vol] 150 mg/dL High [address] [place] [address] Comment on above: Performed By: #### 2 341-6 ####CALE Roth ([id number])[facility] ([facility])[address] [place] [address] 32832 Glucose [Mass/Vol] 148 mg/dL High [address] [place] [address] Comment on above: Performed By: #### 2 341-6 ####CALE Roth ([id number])[facility] ([facility])[address]104 [place] [address] Glucose [Mass/Vol] 136 mg/dL High 74-99 [facility] Comment on above: Performed By: #### 2 341-6 ####CALE Roth ([id number])[facility] ([facility])[address] [place] [address] Glucose [Mass/Vol] 161 mg/dL High 74-99 [facility] Comment on above: Performed By: #### 2 341-6 ####CALE Roth ([id number])[facility] ([facility])[address]195 [place] [address] Glucose [Mass/Vol] 162 mg/dL High 74-99 [facility] Comment on above: Performed By: #### 2 341-6 ####CALE Roth ([id number])[facility] ([facility])[address]69 [place] [address] Magnesiumon 03-05-2025 Magnesium [Mass/Vol] 1.86 mg/dL Normal 1.60-2.40 [facility] Comment on above: Performed By: #### 1 9123-9 ####CALE Roth ([id number])[facility] ([facility])[address]193 [place] [address] Renal function 2000 panelon 03-05-2025 Albumin BCP dye [Mass/Vol] 4.2 g/dL Normal 3.4-5.0 [facility] Comment on above: Performed By: #### 2 4362-6 ####CALE Roth ([id number])[facility] ([facility])[address]50 [place] [address] Anion gap [Moles/Vol] 12 mmol/L Normal 10-20 [facility] Comment on above: Performed By: #### 2 4362-6 ####CALE Roth ([id number])[facility] ([facility])[address]44 [place] [address] Calcium [Mass/Vol] 9.3 mg/dL Normal 8.6-10.6 [facility] Comment on above: Performed By: #### 2 4362-6 ####CALE CAI L ([id number])[facility] ([facility])[address]047 [place] [address] Chloride [Moles/Vol] 108 mmol/L High 98-107 [facility] Comment on above: Performed By: #### 2 4362-6 ####CALE CAI L ([id number])[facility] ([facility])[address]016 [place] [address] CO2 [Moles/Vol] 24 mmol/L Normal 21-32 [facility] Comment on above: Performed By: #### 2 4362-6 ####CALE Roth ([id number])[facility] ([facility])[address]60 [place] [address] Creatinine [Mass/Vol] 0.43 mg/dL Low 0.50-1.05 [facility] Comment on above: Performed By: #### 2 4362-6 ####CALE CAI L ([id number])[facility] ([facility])[address]05 [place] [address] Glomerular filtration rate >90 Normal >60 [facility] Comment on above: Result Comment: Calc ulations of estimated GFR are performed using the 2020 CKD-EPI Study Refit equation without the race variable for the IDMS-Traceable creatinine methods.https://jasn.asnjournals.org/content/early/ASN .2840822108 Performed By: #### 2 4362-6 ####CALE TOSCANOMOTZER L (28501)[facility] ([facility])[address]88 [place] [address] Glucose [Mass/Vol] 163 mg/dL High 74-99 [facility] Comment on above: Performed By: #### 2 4362-6 ####CALE PARKERTZER L ([id number])[facility] ([facility])[address]120 [place] [address] Phosphate [Mass/Vol] 3.0 mg/dL Normal 2.5-4.9 [facility] Comment on above: Performed By: #### 2 4362-6 ####CALE Roth ([id number])[facility] ([facility])87339 [place] [address] Potassium [Moles/Vol] 3.2 mmol/L Low 3.5-5.3 [facility] Comment on above: Performed By: #### 2 4362-6 ####CALE Rtoh ([id number])[facility] ([facility])[address]04 [place] [address] Sodium [Moles/Vol] 141 mmol/L Normal 136-145 [facility] Comment on above: Performed By: #### 2 4362-6 ####CALE Roth ([id number])[facility] ([facility])[address]392 [place] [address] Urea nitrogen [Mass/Vol] 8 mg/dL Normal 6-23 [facility] Comment on above: Performed By: #### 2 4362-6 ####CALE Roth ([id number])[facility] ([facility])[address]489 [place] [address] Albumin BCP dye [Mass/Vol] 4.1 g/dL Normal 3.4-5.0 [facility] Comment on above: Performed By: #### 2 4362-6 ####CALE Roth ([id number])[facility] ([facility])[address]23 [place] [address] Anion gap [Moles/Vol] 14 mmol/L Normal 10-20 [facility] Comment on above: Performed By: #### 2 4362-6 ####CALE Roth ([id number])[facility] ([facility])[address]36 [place] [address] Calcium [Mass/Vol] 8.4 mg/dL Low 8.6-10.6 [facility] Comment on above: Performed By: #### 2 4362-6 ####CALE Roth ([id number])[facility] ([facility])[address]444 [place] [address] Chloride [Moles/Vol] 109 mmol/L High 98-107 [facility] Comment on above: Performed By: #### 2 4362-6 ####CALE CAI L ([id number])[facility] ([facility])[address]19 [place] [address] CO2 [Moles/Vol] 22 mmol/L Normal 21-32 [facility] Comment on above: Performed By: #### 2 4362-6 ####CALE Roth ([id number])[facility] ([facility])[address]15 [place] [address] Creatinine [Mass/Vol] 0.52 mg/dL Normal 0.50-1.05 [facility] Comment on above: Performed By: #### 2 4362-6 ####CALE Roth ([id number])[facility] ([facility])[address]308 [place] [address] Glomerular filtration rate >90 Normal >60 [facility] Comment on above: Result Comment: Calc ulations of estimated GFR are performed using the 2020 CKD-EPI Study Refit equation without the race variable for the IDMS-Traceable creatinine methods.https://jasn.asnjournals.org/content//ASN .6273224593 Performed By: #### 2 4362-6 ####CALE Roth ([id number])[facility] ([facility])80695 [place] [address] Glucose [Mass/Vol] 201 mg/dL High 74-99 [facility] Comment on above: Performed By: #### 2 4362-6 ####CALE Roth ([id number])[facility] ([facility])35783 [place] [address] Phosphate [Mass/Vol] 3.2 mg/dL Normal 2.5-4.9 [facility] Comment on above: Performed By: #### 2 4362-6 ####CALE Roth ([id number])[facility] ([facility])12460 [place] [address] Potassium [Moles/Vol] 3.2 mmol/L Low 3.5-5.3 [facility] Comment on above: Performed By: #### 2 4362-6 ####CALE Roth ([id number])[facility] ([facility])[address] [place] [address] Urea nitrogen [Mass/Vol] 8 mg/dL Normal 6-23 [facility] Comment on above: Performed By: #### 2 4362-6 ####CALE Roth ([id number])[facility] ([facility])[address] [place] [address] 26294 Sodiumon 03-05-2025 Sodium [Moles/Vol] 148 mmol/L High 136-145 [facility] Comment on above: Performed By: #### 2 951-2 ####CALE Roth ([id number])[facility] ([facility])[address] [place] [address] 87527 Sodium [Moles/Vol] 143 mmol/L Normal 136-145 [facility] Comment on above: Performed By: #### 2 951-2 ####CALE Roth ([id number])[facility] ([facility])[address] [place] [address] 66849 Sodium [Moles/Vol] 142 mmol/L Normal 136-145 [facility] Comment on above: Performed By: #### 2 951-2 ####CALE Roth ([id number])[facility] ([facility])[address] [place] [address] 12039 Performed By: #### 2 4362-6 ####CALE Roth ([id number])[facility] ([facility])88896 [place] [address] Specific gravity Auto test s trip (U) [Rel density]on 03-05-2025 Specific gravity (U) [Rel density] 1.019 Normal 1.005-1.035 [facility] Comment on above: Performed By: #### 5 3326-5 ####CALE Roth ([id number])[facility] ([facility])[address] [place] 5324706 Triglycerideon 03-05-2025 Triglyceride [Mass/Vol] 62 mg/dL Normal 0-114 [facility] Comment on above: Order Comment: While [...] Performed By: #### 2 571-8 ####CALE Roth ([id number])[facility] ([facility])[address] [place], [place] [address] CT HEAD WO IV CONTRASTon CT HEAD WO IV CONTRAST Normal [facility] ECG 12-LEADon 03-04-2025 ECG 12-LEAD Ventricular Rate 80 Atrial Rate 80 P-R Interval 166 QRS Duration 82 Q-T Interval 390 QTC Calculation(Bazett) 449 P [place] 83 R [place] 92 T [place] 90 QRS Count 14 Q Onset 219 P Onset 136 P Offset 182 T Offset 414 QTC Fredericia 429 Diagnosis Normal sinus rhythm Rightward axis Nonspecific ST abnormality Abnormal ECG No previous ECGs available See ED provider note for full interpretation and clinical correlation Confirmed by Sharon Russell ([id number]) on 03/04/2025 1:01:43 AM Normal [facility] Gas and Carbon monoxide and Electrolytes panel (BldA)on 03-04-2025 Anion gap 4 (BldA) [Moles/Vol] 13 mmo/L Normal 10-25 [facility] Comment on above: Performed By: #### 9 3685-6 ####CALE Roth ([id number])[facility] ([facility])[address]88 [place] [address] Base excess Calc (Bld) [Moles/Vol] -3.9000 mmol/L Low -2.0-3.0 [facility] Comment on above: Performed By: #### 9 3685-6 ####CALE Roth ([id number])[facility] ([facility])49861 [place] [address] Calcium.ionized (BldA) [Moles/Vol] 1.05 mmol/L Low 1.10-1.33 [facility] Comment on above: Performed By: #### 9 3685-6 ####CALE Roth ([id number])[facility] ([facility])31443 [place] [address] Chloride (BldA) [Moles/Vol] 108 mmol/L High 98-107 [facility] Comment on above: Performed By: #### 9 3685-6 ####CALE Roth ([id number])[facility] ([facility])21691 [place] [address] CO2 (Bld) [Partial pressure] 31 mm Hg Low 38-42 [facility] Comment on above: Performed By: #### 9 3685-6 ####CALE Roth ([id number])[facility] ([facility])18915 [place] [address] Glucose [Mass/Vol] 176 mg/dL High 74-99 [facility] Comment on above: Performed By: #### 9 3685-6 ####CALE Roth ([id number])[facility] ([facility])[address]009 [place] [address] HCO3 (Bld) [Moles/Vol] 19.6 mmol/L Low 22.0-26.0 [facility] Comment on above: Performed By: #### 9 3685-6 ####CALE Roth ([id number])[facility] ([facility])[address] [place] [address] 56711 Hematocrit Est (Bld) [Volume fraction] 44.0 % Normal 36.0-46.0 [facility] Comment on above: Performed By: #### 9 3345-6 ####CALE Roth ([id number])[facility] ([facility])[address] [place] [address] 41831 Hemoglobin (Bld) [Mass/Vol] 14.5 g/dL Normal 12.0-16.0 [facility] Comment on above: Performed By: #### 9 3685-6 ####CALE Roth ([id number])[facility] ([facility])[address] [place] [address] 87046 Inhaled oxygen concentration 44 % Normal [facility] Comment on above: Performed By: #### 9 2965-6 ####CALE Roth ([id number])[facility] ([facility])[address] [place] [address] 30754 Lactate (BldA) [Moles/Vol] 2.1 mmol/L High 0.4-2.0 [facility] Comment on above: Performed By: #### 9 3685-6 ####CALE Roth ([id number])[facility] ([facility])[address] [place] [address] 73882 Oxygen (Bld) [Partial pressure] 220 mm Hg High 85-95 [facility] Comment on above: Performed By: #### 9 3685-6 ####CALE Roth ([id number])[facility] ([facility])[address] [place] [address] 27211 Oxyhemoglobin (BldA) [Mass fraction] 98.0 % Normal 94.0-98.0 [facility] Comment on above: Performed By: #### 9 8675-6 ####CALE Roth ([id number])[facility] ([facility])[address] [place] [address] 46600 pH (Bld) 7.41 [pH] Normal 7.38-7.42 [facility] Comment on above: Performed By: #### 9 3685-6 ####CALE Roth ([id number])[facility] ([facility])[address] [place] [address] 47806 Potassium (BldA) [Moles/Vol] 3.0 mmol/L Low 3.5-5.3 [facility] Comment on above: Performed By: #### 9 3685-6 ####CALE Roth ([id number])[facility] ([facility])[address] [place] [address]8539 Sodium (BldA) [Moles/Vol] 138 mmol/L Normal 136-145 [facility] Comment on above: Performed By: #### 9 3685-6 ####CALE Roth ([id number])[facility] ([facility])[address] [place] [address] 07361 Gas panel (BldA)on 5 Base excess Calc (Bld) [Moles/Vol] -5.0000 mmol/L Low -2.0-3.0 [facility] Comment on above: Performed By: #### 2 4336-0 ####CALE Roth ([id number])[facility] ([facility])[address] [place] [address] 76853 CO2 (Bld) [Partial pressure] 30 mm Hg Low 38-42 [facility] Comment on above: Performed By: #### 2 4336-0 ####CALE Roth ([id number])[facility] ([facility])[address] [place] [address] 50141 HCO3 (Bld) [Moles/Vol] 18.6 mmol/L Low 22.0-26.0 [facility] Comment on above: Performed By: #### 2 4336-0 ####CALE Roth ([id number])[facility] ([facility])[address] [place] [address] 24236 Inhaled oxygen concentration 45 % Normal [facility] Comment on above: Performed By: #### 2 4336-0 ####CALE Roth ([id number])[facility] ([facility])[address] [place] [address] 76474 Oxygen (Bld) [Partial pressure] 210 mm Hg High 85-95 [facility] Comment on above: Performed By: #### 2 4336-0 ####CALE Roth ([id number])[facility] ([facility])[address] [place] [address] 26314 Oxyhemoglobin (BldA) [Mass fraction] 97.3 % Normal 94.0-98.0 [facility] Comment on above: Performed By: #### 2 4336-0 ####CALE Roth ([id number])[facility] ([facility])[address] [place] [address] 77131 pH (Bld) 7.40 [pH] Normal 7.38-7.42 [facility] Comment on above: Performed By: #### 2 4336-0 ####CALE Roth ([id number])[facility] ([facility])[address] [place] [address] 44998 Glucose Test strip manual (B ld) [Mass/Vol]on 03-04-2025 Glucose [Mass/Vol] 162 mg/dL High [address] [place] [address] Comment on above: Performed By: #### 2 341-6 ####CALE Roth ([id number])[facility] ([facility])[address] [place] [address] 78670 Glucose [Mass/Vol] 158 mg/dL High [address] Comment on above: Performed By: #### 2 341-6 ####CALE Roth ([id number])[facility] ([facility])[address] [place] [address] 30561 Glucose [Mass/Vol] 132 mg/dL High [address] [place] [address] Comment on above: Performed By: #### 2 341-6 ####CALE Roth ([id number])[facility] ([facility])[address]89 [place] [address] IR ANGIOGRAM CEREBRAL BILATE RALon 03-04-2025 IR ANGIOGRAM CEREBRAL BILATERAL Normal [facility] IR INTERVENTION NEURO EMBOLI ZATIONon 03-04-2025 IR INTERVENTION NEURO EMBOLIZATION Normal [facility] Renal function 2000 panelon 03-04-2025 Albumin BCP dye [Mass/Vol] 4.4 g/dL Normal 3.4-5.0 [facility] Comment on above: Performed By: #### 2 4362-6 ####CALE Roth ([id number])[facility] ([facility])[address]25 [place] [address] Anion gap [Moles/Vol] 10 mmol/L Normal 10-20 [facility] Comment on above: Performed By: #### 2 4362-6 ####CALE Roth ([id number])[facility] ([facility])10786 [place] [address] Calcium [Mass/Vol] 8.7 mg/dL Normal 8.6-10.6 [facility] Comment on above: Performed By: #### 2 4362-6 ####CALE Roth ([id number])[facility] ([facility])16532 [place] [address] Chloride [Moles/Vol] 116 mmol/L High 98-107 [facility] Comment on above: Performed By: #### 2 4362-6 ####CALE Roth ([id number])[facility] ([facility])22176 [place] [address] CO2 [Moles/Vol] 23 mmol/L Normal 21-32 [facility] Comment on above: Performed By: #### 2 4362-6 ####CALE Roth ([id number])[facility] ([facility])[address] [facility] [place] [address] Creatinine [Mass/Vol] 0.49 mg/dL Low 0.50-1.05 [facility] Comment on above: Performed By: #### 2 4362-6 ####CALE Roth ([id number])[facility] ([facility])[address]18 [place] [address] Glomerular filtration rate >90 Normal >60 [facility] Comment on above: Result Comment: Calc ulations of estimated GFR are performed using the 2020 CKD-EPI Study Refit equation without the race variable for the IDMS-Traceable creatinine methods.https://jasn.asnjournals.org/content/early//ASN .2982308653 Performed By: #### 2 4362-6 ####CALE Roth ([id number])[facility] ([facility])[address]108 [place] [address] Glucose [Mass/Vol] 149 mg/dL High 74-99 [facility] Comment on above: Performed By: #### 2 4362-6 ####CALE CAI L (36603)[facility] ([facility])[address]29 [place] [address] Phosphate [Mass/Vol] 1.1 mg/dL Low 2.5-4.9 [facility] Comment on above: Performed By: #### 2 4362-6 ####CALE CAI L ([id number])[facility] ([facility])[address]225 [place] [address] Potassium [Moles/Vol] 3.0 mmol/L Low 3.5-5.3 [facility] Comment on above: Performed By: #### 2 4362-6 ####CALE CAI L ([id number])[facility] ([facility])[address]594 [place] [address] Urea nitrogen [Mass/Vol] 6 mg/dL Normal 6-23 [facility] Comment on above: Performed By: #### 2 4362-6 ####CALE CAI L (12843)[facility] ([facility])[address]95 [place] [address] Albumin BCP dye [Mass/Vol] 4.2 g/dL Normal 3.4-5.0 [facility] Comment on above: Performed By: #### 2 4362-6 ####CALE CAI L ([id number])[facility] ([facility])[address]62 [place] [address] Anion gap [Moles/Vol] 13 mmol/L Normal 10-20 [facility] Comment on above: Performed By: #### 2 4362-6 ####CALE CAI L ([id number])[facility] ([facility])[address]33 [place] [address] Calcium [Mass/Vol] 8.3 mg/dL Low 8.6-10.6 [facility] Comment on above: Performed By: #### 2 4362-6 ####CALE CAI L ([id number])[facility] ([facility])[address]75 [place] [address] Chloride [Moles/Vol] 111 mmol/L High 98-107 [facility] Comment on above: Performed By: #### 2 4362-6 ####CALE CAI L ([id number])[facility] ([facility])[address]759 [place] [address] CO2 [Moles/Vol] 21 mmol/L Normal 21-32 [facility] Comment on above: Performed By: #### 2 4362-6 ####CALE CAI L ([id number])[facility] ([facility])[address]852 [place] [address] Creatinine [Mass/Vol] 0.56 mg/dL Normal 0.50-1.05 [facility] Comment on above: Performed By: #### 2 4362-6 ####CALE CAI L ([id number])[facility] ([facility])[address] [place] [address] Glomerular filtration rate >90 Normal >60 [facility] Comment on above: Result Comment: Calc ulations of estimated GFR are performed using the 2020 CKD-EPI Study Refit equation without the race variable for the IDMS-Traceable creatinine methods.https://jasn.asnjournals.org/content//ASN .[email or web address] Performed By: #### 2 4362-6 ####CALE Roth ([id number])[facility] [facility])[address] [place] [address] Glucose [Mass/Vol] 162 mg/dL High 74-99 [facility] Comment on above: Performed By: #### 2 4362-6 ####CALE Roth ([id number])[facility] ([facility])[address] [place] [address] Phosphate [Mass/Vol] 1.2 mg/dL Low 2.5-4.9 [facility] Comment on above: Performed By: #### 2 4362-6 ####CALE Roth ([id number])[facility] ([facility])[address] [place] [address] Potassium [Moles/Vol] 3.2 mmol/L Low 3.5-5.3 [facility] Comment on above: Performed By: #### 2 4362-6 ####CALE Roth ([id number])[facility] ([facility])[address] [place] [address] Sodium [Moles/Vol] 142 mmol/L Normal 136-145 [facility] Comment on above: Performed By: #### 2 4362-6 ####CALE Roth ([id number])[facility] ([facility])[address] [place] [address] Urea nitrogen [Mass/Vol] 6 mg/dL Normal 6-23 [facility] Comment on above: Performed By: #### 2 4362-6 ####CALE Roth ([id number])[facility] ([facility])[address] [place] [address] Sodiumon 03-04-2025 Sodium [Moles/Vol] 144 mmol/L Normal 136-145 [facility] Comment on above: Performed By: #### 2 951-2 ####CALE Roth ([id number])[facility] ([facility])[address] [place] [address] Sodium [Moles/Vol] 146 mmol/L High 136-145 [facility] Comment on above: Performed By: #### 2 951-2 ####CALE Roth ([id number])[facility] ([facility])[id number] [place] [address] Performed By: #### 2 4362-6 ####CALE Roth ([id number])[facility] ([facility])[id number] [place] [address] 24318 XR ABDOMEN 1 VIEWon 03-04-20 25 XR ABDOMEN 1 VIEW Normal [facility] XR CHEST 1 VIEWon 03-04-2025 XR CHEST 1 VIEW Normal [facility] Blood type and Indirect anti body screen panel (Bld)on 03-03-2025 ABO group Nom (Bld) B Normal [facility] Comment on above: Performed By: #### 3 4532-2 ####CALE Roth ([id number])[facility] ([facility])[address] [place] [address] Blood group antibody screen Ql Negative [facility] Comment on above: Performed By: #### 3 4532-2 ####CALE Roth ([id number])[facility] ([facility])[address] [place] [address] D Ag Ql (Bld) Positive [facility] Comment on above: Performed By: #### 3 4532-2 ####CALE Roth ([id number])[facility] ([facility])[address] [place] [address] C-REACTIVE PROTEINon 025 CRP [Mass/Vol] mg/L Normal 0.00 - 0.90 [facility] Comment on above: Performed By: #### 2 91364 #### [facility],[address] [address] CBC + DIFFon 03-03-2025 ATY LYMP 0 % Normal [facility] Comment on above: Performed By: #### 2 97608 #### [facility],[address] [place] [address] BANDS 0 % Normal 0 - 5 [facility] Comment on above: Performed By: #### 2 93868 #### [facility],[address] [place] [address] Baso # 0.04 x10EE3/UL Normal 0.00 - 0.10 [facility] Comment on above: Performed By: #### 2 21292 #### [facility],[address] [place] [address] Basophils/100 WBC (Bld) 0.4 % Normal 0.0 - 2.0 [facility] Comment on above: Performed By: #### 2 97974 #### [facility],[address] [place] [address] Basophils/100 WBC (Bld) 0.0 % Normal 0.0 - 2.0 [facility] Comment on above: Performed By: #### 2 79364 #### [facility],[address] [place] [address] CBC + DIFF Normal [facility] Comment on above: Result Comment: CBC- COMPLETE BLOOD COUNT Performed By: #### 2 70894 #### [facility],[address] [place] [address] CELL COUNT 100 Normal [facility] Comment on above: Performed By: #### 2 67735 #### [facility],[address] [place] [address] EO 0.0 % Normal 0.0 - 7.0 [facility] Comment on above: Performed By: #### 2 30842 #### [facility],[address] [place] [address] EO # 0.06 x10EE3/UL Normal 0.00 - 0.50 [facility] Comment on above: Performed By: #### 2 81045 #### [facility],[address] [place] [address] 90259 Eosinophils/100 WBC (Bld) 0.7 % Normal 0.0 - 7.0 [facility] Comment on above: Performed By: #### 2 34919 #### [facility],[address] [place] [address] 37656 Erythrocyte distribution width (RBC) [Ratio] 13.1 % Normal 12.0 - 15.6 [facility] Comment on above: Performed By: #### 2 35834 #### [facility],[address] [place] [address]111 Hematocrit (Bld) [Volume fraction] 44.5 % Normal 34.0 - 46.0 [facility] Comment on above: Performed By: #### 2 12117 #### [facility],[address] [place] [address] 88168 Hemoglobin (Bld) [Mass/Vol] 15.2 g/dL Normal 12.0 - 16.0 [facility] Comment on above: Performed By: #### 2 60704 #### [facility],[address] [place] [address] 80608 Lymph # 4.41 x10EE3/UL High 0.80 - 2.80 [facility] Comment on above: Performed By: #### 2 70979 #### [facility],[address] [place] [address] 42030 Lymphocytes/100 WBC (Bld) 51.6 % High 20.0 - 45.0 [facility] Comment on above: Performed By: #### 2 12792 #### [facility],[address] [place] [address] 10321 Lymphocytes/100 WBC (Bld) 57 % High 20 - 45 [facility] Comment on above: Performed By: #### 2 11083 #### [facility],[address] [place] [address] MANUAL DIFF SEE BELOW Normal [facility] Comment on above: Performed By: #### 2 57403 #### [facility],[address] [place] [address] MCH (RBC) [Entitic mass] 29 pg Normal 27 - 33 [facility] Comment on above: Performed By: #### 2 35259 #### [facility],[address] [place] [address] MCHC 34 X10 3 Normal 32 - 36 [facility] Comment on above: Performed By: #### 2 44240 #### [facility],[address] [place] [address] MCV (RBC) [Entitic vol] 86 fL Normal 80 - 99 [facility] Comment on above: Performed By: #### 2 70362 #### [facility],[address] [place] [address] META 0 % Normal 0 - 1 [facility] Comment on above: Performed By: #### 2 81020 #### [facility],[address] [place] [address] Metamyelocytes/100 WBC (Bld) 0 % Normal [facility] Comment on above: Performed By: #### 2 38668 #### [facility],[address] [place] [address] Major # 0.60 x10EE3/UL Normal 0.20 - 1.00 [facility] Comment on above: Performed By: #### 2 32087 #### [facility],[address] [place] [address] MONOS 7 % Normal 0 - 10 [facility] Comment on above: Performed By: #### 2 43914 #### [facility],[address] [place] [address] MONOS % 7.1 % Normal 0.0 - 10.0 [facility] Comment on above: Performed By: #### 2 75576 #### [facility],[address] [place] [address] 23725 Morphology Ibrahima (Bld) [Interp] REVIEWED Normal [facility] Comment on above: Performed By: #### 2 12352 #### [facility],[address] [place] [address] 28218 Neut # 3.43 x10EE3/UL Normal 1.50 - 7.10 [facility] Comment on above: Performed By: #### 2 85737 #### [facility],[address] [place] [address] 39905 Neutrophils/100 WBC (Bld) 40.2 % Low 46.0 - 76.0 [facility] Comment on above: Performed By: #### 2 85770 #### [facility],[address] [place] [address] 25113 NRBC 0 /100 Normal [facility] Comment on above: Performed By: #### 2 43634 #### [facility],[address] [place] [address] 74065 PLATELET 255 x10EE3/UL Normal 150 - 450 [facility] Comment on above: Performed By: #### 2 54174 #### [facility],[address] [place] [address] 23889 Platelet mean volume (Bld) [Entitic vol] 8.7 fL Normal 6.6 - 10.5 [facility] Comment on above: Result Comment: AUTO MATED DIFFERENTIAL Performed By: #### 2 38742 #### [facility],[address] [place] [address] 02716 RBC 5.20 x 10EE6/UL Normal 4.10 - 5.30 [facility] Comment on above: Performed By: #### 2 01679 #### [facility],[address] [place] [address] 10594 SEGS 36 % Low 46 - 76 [facility] Comment on above: Performed By: #### 2 94510 #### [facility],[address] [place] [address] 26687 WBC 8.6 x 10EE3/UL Normal 4.5 - 10.8 [facility] Comment on above: Performed By: #### 2 78403 #### [facility],[address] [place] [address] 48993 OTHER 0 Normal [facility] Comment on above: Performed By: #### 2 33732 #### [facility],[address] [place] [address] 65075 CBC W Auto Differential pane l (Bld)on 03-03-2025 Basophils (Bld) [#/Vol] 0.01 x10*3/uL Normal 0.00-0.10 [facility] Comment on above: Performed By: #### 5 7021-8 ####CALE Roth ([id number])[facility] ([facility])[address] [place] [address] Basophils/100 WBC (Bld) 0.1 % Normal 0.0-2.0 [facility] Comment on above: Performed By: #### 5 7021-8 ####CALE Roth ([id number])[facility] ([facility])[address] [place] [address] Eosinophils (Bld) [#/Vol] 0.02 x10*3/uL Normal 0.00-0.70 [facility] Comment on above: Performed By: #### 5 7021-8 ####CALE Roth ([id number])[facility] ([facility])[address] [place] [address] Eosinophils/100 WBC (Bld) 0.2 % Normal 0.0-6.0 [facility] Comment on above: Performed By: #### 5 7021-8 ####CALE Roth ([id number])[facility] ([facility])[address] [place] [address] Erythrocyte distribution width (RBC) [Ratio] 11.5 % Normal 11.5-14.5 [facility] Comment on above: Performed By: #### 5 7021-8 ####CALE PARKERTZER L ([id number])[facility] ([facility])[address] [place] [address] 98028 Hematocrit (Bld) [Volume fraction] 39.2 % Normal 36.0-46.0 [facility] Comment on above: Performed By: #### 5 7021-8 ####CALE TOSCANOMOTZER L ([id number])[facility] ([facility])[address] [place] [address] 03377 Hemoglobin (Bld) [Mass/Vol] 13.8 g/dL Normal 12.0-16.0 [facility] Comment on above: Performed By: #### 5 7021-8 ####CALE PARKERTZGONZALEZ L ([id number])[facility] ([facility])[address] [place] [address] 92201 Immature granulocytes (Bld) [#/Vol] 0.04 x10*3/uL Normal 0.00-0.70 [facility] Comment on above: Performed By: #### 5 7021-8 ####CALE RUTLEDGEER L ([id number])[facility] ([facility])[address] [place] [address] 19155 Immature granulocytes/100 WBC (Bld) 0.4 % Normal 0.0-0.9 [facility] Comment on above: Result Comment: Aleisha ture Granulocyte Count (IG) includes promyelocytes, myelocytes and metamyelocytes but does not include bands. Percent differential counts (%) should be interpreted in the context of the absolute cell counts (cells/UL). Performed By: #### 5 7021-8 ####CALE TOSCANOMOTZER L ([id number])[facility] ([facility])[address] [place] [address] 68566 Lymphocytes (Bld) [#/Vol] 0.98 x10*3/uL Low 1.20-4.80 [facility] Comment on above: Performed By: #### 5 7021-8 ####CALE TOSCANOMOTZER L ([id number])[facility] ([facility])[address] [place] [address] Lymphocytes/100 WBC (Bld) 9.0 % Normal 13.0-44.0 [facility] Comment on above: Performed By: #### 5 7021-8 ####CALE Roth ([id number])[facility] ([facility])[address]761 [place] [address] MCH (RBC) [Entitic mass] 29.9 pg Normal 26.0-34.0 [facility] Comment on above: Performed By: #### 5 7021-8 ####CALE Roth ([id number])[facility] ([facility])[address]349 [place] [address] MCHC (RBC) [Mass/Vol] 35.2 g/dL Normal 32.0-36.0 [facility] Comment on above: Performed By: #### 5 7021-8 ####CALE Roth ([id number])[facility] ([facility])[address] [place] [address] 08285 MCV (RBC) [Entitic vol] 85 fL Normal 80-100 [facility] Comment on above: Performed By: #### 5 7021-8 ####CALE Roth ([id number])[facility] ([facility])[address] [place] [address] 78204 Monocytes (Bld) [#/Vol] 0.84 x10*3/uL Normal 0.10-1.00 [facility] Comment on above: Performed By: #### 5 7021-8 ####CALE Roth ([id number])[facility] ([facility])[address] [place] [address] 12196 Monocytes/100 WBC (Bld) 7.7 % Normal 2.0-10.0 [facility] Comment on above: Performed By: #### 5 7021-8 ####CALE Roht ([id number])[facility] ([facility])[address] [place] [address] 59091 Neutrophils (Bld) [#/Vol] 9.01 x10*3/uL High 1.20-7.70 [facility] Comment on above: Result Comment: Perc ent differential counts (%) should be interpreted in the context of the absolute cell counts (cells/uL). Performed By: #### 5 7021-8 ####CALE Roth ([id number])[facility] ([facility])[address]151 [place] [address] Neutrophils/100 WBC (Bld) 82.6 % Normal 40.0-80.0 [facility] Comment on above: Performed By: #### 5 7021-8 ####CALE Roth ([id number])[facility] ([facility])[address]343 [place] [address] Nucleated RBC/100 WBC (Bld) [Ratio] 0.0 /100 WBCs Normal 0.0-0.0 [facility] Comment on above: Performed By: #### 5 7021-8 ####CALE Roth ([id number])[facility] ([facility])[address] [place] [address] Platelets (Bld) [#/Vol] 146 x10*3/uL Low 150-450 [facility] Comment on above: Performed By: #### 5 7021-8 ####CALE Roth ([id number])[facility] ([facility])[address]141 [place] [address] RBC (Bld) [#/Vol] 4.62 x10*6/uL Normal 4.00-5.20 [facility] Comment on above: Performed By: #### 5 7021-8 ####CALE Roth ([id number])[facility] ([facility])[address]774 [place] [address] WBC (Bld) [#/Vol] 10.9 x10*3/uL Normal 4.4-11.3 [facility] Comment on above: Performed By: #### 5 7021-8 ####CALE Roth ([id number])[facility] ([facility])[address] [place] [address] CMP with eGFRon 03-03-2025 AGE 24 years Normal [facility] Comment on above: Performed By: #### 2 95663 ####[facility],[address] [place] [address] 24274 Albumin [Mass/Vol] 4.4 g/dL Normal 3.4 - 5.0 [facility] Comment on above: Performed By: #### 2 76286 ####[facility],[address] [place] [address] 57932 Albumin/Globulin [Mass ratio] 1.3 {ratio} Normal 0.9 - 1.6 [facility] Comment on above: Performed By: #### 2 47520 ####[facility],[address] [place] [address] 73780 ALK PHOS 56 U/L Normal 46 - 116 [facility] Comment on above: Performed By: #### 2 22372 ####[facility],[address] [place] [address] 01761 ALT [Catalytic activity/Vol] 24 U/L Normal 16 - 63 [facility] Comment on above: Performed By: #### 2 91471 ####[facility],[address] [place] [address] 10653 Anion gap [Moles/Vol] 14 mmol/L Normal 10 - 20 [facility] Comment on above: Performed By: #### 2 31551 ####[facility],[address] [place] [address] 38897 AST [Catalytic activity/Vol] 17 U/L Normal 13 - 39 [facility] Comment on above: Performed By: #### 2 59704 ####[facility],[address] [place] [address] 60525 B/C RATIO 16 ratio Normal 0 - 30 [facility] Comment on above: Performed By: #### 2 01449 ####[facility],[address] [place] [address] 79489 Bilirubin [Mass/Vol] 0.4 mg/dL Normal 0.2 - 1.0 [facility] Comment on above: Performed By: #### 2 20323 ####[facility],[address] [place] [address] 47189 Calcium [Mass/Vol] 9.0 mg/dL Normal 8.5 - 10.1 [facility] Comment on above: Performed By: #### 2 25790 ####[facility],[address] [place] [address] 36428 Chloride [Moles/Vol] 102 mmol/L Normal 98 - 107 [facility] Comment on above: Performed By: #### 2 14333 ####[facility],[address] [place] [address] 27271 CMP with eGFR Normal [facility] Comment on above: Result Comment: COMP REHENSIVE METABOLIC PANEL Performed By: #### 2 33757 ####[facility],[address] [place] [address] 96901 CO2 [Moles/Vol] 27.7 mmol/L Normal 21.0 - 32.0 [facility] Comment on above: Performed By: #### 2 61466 ####[facility],[address] [place] [address] 16587 Creatinine [Mass/Vol] 0.87 mg/dL Normal 0.55 - 1.02 [facility] Comment on above: Performed By: #### 2 85335 ####[facility],[address] [place] [address] 85775 GFR/1.73 sq M.predicted among non-blacks MDRD (S/P/Bld) [Vol rate/Area] mL/min/{1.73_m2} Normal 60 - 999 [facility] Comment on above: Performed By: #### 2 36670 ####[facility],[address] [place] [address] 83636 Result Comment: ACCO RDING TO THE NATIONAL KIDNEY DISEASE EDUCATION PROGRAM(NKDE), A NORMAL eGFR IS A VALUE GREATER THAN OR EQUAL TO 60 ML/MIN/1.73 SQ METERS. CHRONIC KIDNEY DISEASE: <60mL/MIN/1.73 SQ METERS KIDNEY FAILURE: <15mL/MIN/1.73 SQ METERS THIS TEST SHOULD ONLY BE USED FOR PATIENTS 18 YEARS OF AGE AND OLDER. Globulin (S) [Mass/Vol] 3.5 g/dL Normal 1.5 - 3.8 [facility] Comment on above: Performed By: #### 2 67298 ####[facility],[address] [place] [address] 46133 Glucose [Mass/Vol] 121 mg/dL High 74 - 106 [facility] Comment on above: Performed By: #### 2 30468 ####[facility],[address] [place] [address] 46752 Potassium [Moles/Vol] 2.7 mmol/L Critically low 3.5 - 5.1 [facility] Comment on above: Result Comment: { CA LLED TO FABIO YODER BY [facility] @ 1422 { READ BACK BY FABIO YODER RA 1420 Performed By: #### 2 53869 ####[facility],[address] [place] [address] 42130 Protein [Mass/Vol] 7.9 g/dL Normal 6.4 - 8.2 [facility] Comment on above: Performed By: #### 2 92401 ####[facility],[address] [place] [address] 34457 Sodium [Moles/Vol] 141 mmol/L Normal 136 - 145 [facility] Comment on above: Performed By: #### 2 40934 ####[facility],[address] [place] [address] 34675 Urea nitrogen [Mass/Vol] 14 mg/dL Normal 7 - 18 [facility] Comment on above: Performed By: #### 2 34588 ####[facility],[address] [place] [address] ANGIO HEAD AND NECK W AND WO IV CONTRASTon 03-03-2025 CT ANGIO HEAD AND NECK W AND WO IV CONTRAST Normal [facility] CT BRAIN W/O CONTRASTon 02-22 CT BRAIN W/O CONTRAST [address] [address] Patient: KIMANI COHEN Phone#: : [phone] Age: 24 Gender: F Pt. Type: ER Account: [id number] Location: 052 Ordering: DR. JAMES MURPHY Exam Date: 03/03/2025/13:58 Family Phys: Charge Code: 663653 Physician: [place] Order #: [id number] Dose#: 57.50 mGy PROCEDURE: CT BRAIN WITHOUT [...] Bentley MD on 03/03/2025 at 14:23 Normal [facility] Choriogonadotropin.beta subu niton 03-03-2025 HCG.beta subunit Qn m[IU]/mL Normal <5 [facility] Comment on above: Order Comment: Total HCG measurement is performed using the Siemens [employer] immunoassay which detects intact HCG and free beta HCG subunit. This test is not indicated for use as a tumor marker. HCG testing is performed using a different test methodology at [facility] than other [facility]. Direct result comparison should only be made within the same method. Performed By: #### 2 1198-7 ####CALE Roth ([id number])[facility] ([facility])[id number] [place], [place] [address] Comprehensive metabolic 2000 panelon 03-03-2025 Albumin BCP dye [Mass/Vol] 4.7 g/dL Normal 3.4-5.0 [facility] Comment on above: Performed By: #### 2 4323-8 ####CALE Roth ([id number])[facility] ([facility])[address] [place], [place] [address] Performed By: #### 2 4362-6 ####CALE Roth ([id number])[facility] ([facility])[address] [place] [address] 77292 ALP [Catalytic activity/Vol] 40 U/L Normal 33-110 [facility] Comment on above: Performed By: #### 2 4323-8 ####CALE Roth ([id number])[facility] ([facility])[address] [place] [address] 11619 ALT With P-5'-P [Catalytic activity/Vol] 13 U/L Normal 7-45 [facility] Comment on above: Result Comment: Rehana ents treated with Sulfasalazine may generate falsely decreased results for ALT. Performed By: #### 2 4323-8 ####CALE Roth ([id number])[facility] ([facility])[address] [place] [address] Anion gap [Moles/Vol] 16 mmol/L Normal 10-20 [facility] Comment on above: Performed By: #### 2 4323-8 ####CALE Roth ([id number])[facility] ([facility])[address] [place] [address] 23699 Performed By: #### 2 4362-6 ####CALE Roth ([id number])[facility] ([facility])[address] [facility] [place] [address] AST With P-5'-P [Catalytic activity/Vol] 20 U/L Normal 9-39 [facility] Comment on above: Performed By: #### 2 4323-8 ####CALE Roth ([id number])[facility] ([facility])[address] [place] [address] Bilirubin [Mass/Vol] 0.8 mg/dL Normal 0.0-1.2 [facility] Comment on above: Performed By: #### 2 4323-8 ####CALE Roth ([id number])[facility] ([facility])[address] [place] [address] Calcium [Mass/Vol] 9.1 mg/dL Normal 8.6-10.6 [facility] Comment on above: Performed By: #### 2 4323-8 ####CALE Roth ([id number])[facility] ([facility])[address] [facility] [place] [address] Performed By: #### 2 4362-6 ####CALE Roth ([id number])[facility] ([facility])[address] [place] [address] Chloride [Moles/Vol] 105 mmol/L Normal 98-107 [facility] Comment on above: Performed By: #### 2 4323-8 ####CALE Roth ([id number])[facility] [facility] [place] [address] Performed By: #### 2 4362-6 ####CALE Roth ([id number])[facility] ([facility])[address] [place] [address] CO2 [Moles/Vol] 22 mmol/L Normal 21-32 [facility] Comment on above: Performed By: #### 2 4323-8 ####CALE Roth ([id number])[facility] ([facility])[address] [place] [address] Performed By: #### 2 4362-6 ####CALE RUTLEDGEER L ([id number])[facility] ([facility])[address]853 [place] [address] Creatinine [Mass/Vol] 0.62 mg/dL Normal 0.50-1.05 [facility] Comment on above: Performed By: #### 2 4323-8 ####CALE RUTLEDGEER L ([id number])[facility] ([facility])[address] [place] [address] Performed By: #### 2 4362-6 ####CALE CAI L ([id number])[facility] ([facility])[address] [place] [address] Glomerular filtration rate >90 Normal >60 [facility] Comment on above: Result Comment: Calc ulations of estimated GFR are performed using the 2020 CKD-EPI Study Refit equation without the race variable for the IDMS-Traceable creatinine methods.https://jasn.asnjournals.org/content/early//ASN .6560680051 Performed By: #### 2 4323-8 ####CALE RUTLEDGEER L ([id number])[facility] ([facility])[address] [place] [address] Performed By: #### 2 4362-6 ####CALE RUTLEDGEER L ([id number])[facility] ([facility])[address] [place] [address]148 Glucose [Mass/Vol] 149 mg/dL High 74-99 [facility] Comment on above: Performed By: #### 2 4323-8 ####CALE PARKERTZER L ([id number])[facility] ([facility])[address] [place] [address] Performed By: #### 2 4362-6 ####CALE RUTLEDGEER L ([id number])[facility] ([facility])[address]690 [place] [address] Potassium [Moles/Vol] 3.6 mmol/L Normal 3.5-5.3 [facility] Comment on above: Performed By: #### 2 4323-8 ####CALE Roth ([id number])[facility] ([facility])[address] [place] [address] Performed By: #### 2 4362-6 ####CALE Roth ([id number])[facility] ([facility])[address] [place] [address] Protein [Mass/Vol] 7.1 g/dL Normal 6.4-8.2 [facility] Comment on above: Performed By: #### 2 4323-8 ####CALE Roth ([id number])[facility] ([facility])[address] [place] [address] Sodium [Moles/Vol] 139 mmol/L Normal 136-145 [facility] Comment on above: Performed By: #### 2 4323-8 ####CALE Roth ([id number])[facility] ([facility])[address] [place] [address] Performed By: #### 2 4362-6 ####CALE Roth ([id number])[facility] ([facility])[address] [place] [address] Urea nitrogen [Mass/Vol] 11 mg/dL Normal 6-23 [facility] Comment on above: Performed By: #### 2 4323-8 ####CALE Roth ([id number])[facility] ([facility])[address] [place] [address] Performed By: #### 2 4362-6 ####CALE Roth ([id number])[facility] ([facility])[address] [place] [address] 61568 Gas panel (BldV)on 5 Anion gap 4 (BldV) [Moles/Vol] 15.0 mmol/L Normal 10.0-25.0 [facility] Comment on above: Performed By: #### 2 4339-4 ####CALE Roth ([id number])[facility] ([facility])[address]28 [place] [address] Base excess Calc (BldV) [Moles/Vol] -2.3000 mmol/L Low -2.0-3.0 [facility] Comment on above: Performed By: #### 2 4339-4 ####CALE Roth ([id number])[facility] ([facility])[address]10 [place] [address] Calcium.ionized (BldV) [Moles/Vol] 1.16 mmol/L Normal 1.10-1.33 [facility] Comment on above: Performed By: #### 2 4339-4 ####CALE Roth ([id number])[facility] ([facility])[address] [place] [address]34 Chloride (BldV) [Moles/Vol] 103 mmol/L Normal 98-107 [facility] Comment on above: Performed By: #### 2 4339-4 ####CALE Roth ([id number])[facility] ([facility])[address]019 [place] [address] CO2 (BldV) [Partial pressure] 47 mm Hg Normal 41-51 [facility] Comment on above: Performed By: #### 2 4339-4 ####CALE Roth ([id number])[facility] ([facility])[address]87 [place] [address] Glucose [Mass/Vol] 155 mg/dL High 74-99 [facility] Comment on above: Performed By: #### 2 4339-4 ####CALE Roth ([id number])[facility] ([facility])[address]33 [place] [address] HCO3 (Bld) [Moles/Vol] 24.2 mmol/L Normal 22.0-26.0 [facility] Comment on above: Performed By: #### 2 4339-4 ####CALE Roth ([id number])[facility] ([facility])[address]676 [place] [address] Hematocrit Est (Bld) [Volume fraction] 42.0 % Normal 36.0-46.0 [facility] Comment on above: Performed By: #### 2 4339-4 ####CALE Rtoh ([id number])[facility] ([facility])[address]76 [place] [address] Hemoglobin (Bld) [Mass/Vol] 14.1 g/dL Normal 12.0-16.0 [facility] Comment on above: Performed By: #### 2 4339-4 ####CALE Roth ([id number])[facility] ([facility])[address] [place] [address] 22474 Lactate (BldV) [Moles/Vol] 2.4 mmol/L High 0.4-2.0 [facility] Comment on above: Performed By: #### 2 4339-4 ####CALE Roth ([id number])[facility] ([facility])[address] [place] [address] 39349 Oxygen (BldV) [Partial pressure] 42 mm Hg Normal 35-45 [facility] Comment on above: Performed By: #### 2 4339-4 ####CALE Roth ([id number])[facility] ([facility])[address] [place] [address] 89212 Oxygen saturation in Venous blood 69 % Normal 45-75 [facility] Comment on above: Performed By: #### 2 4339-4 ####CALE Roth ([id number])[facility] ([facility])[address] [place] [address] 20254 Oxyhemoglobin (BldV) [Mass fraction] 67.2 % Normal 45.0-75.0 [facility] Comment on above: Performed By: #### 2 4339-4 ####CALE Roth ([id number])[facility] ([facility])[address]44 [place] [address] pH (BldV) 7.32 [pH] Low 7.33-7.43 [facility] Comment on above: Performed By: #### 2 4339-4 ####CALE Roth ([id number])[facility] ([facility])[address]02 [place] [address] Potassium (BldV) [Moles/Vol] 3.9 mmol/L Normal 3.5-5.3 [facility] Comment on above: Performed By: #### 2 4339-4 ####CALE Roth ([id number])[facility] ([facility])[address]167 [place] [address] Sodium (BldV) [Moles/Vol] 138 mmol/L Normal 136-145 [facility] Comment on above: Performed By: #### 2 4339-4 ####CALE Roth ([id number])[facility] ([facility])[address]67 [place] [address] PROTHROMBIN TIME AND INRon 0 03-03-2025 INR Coag (PPP) [Relative time] 1.1 {INR} Normal 0.8 - 1.2 [facility] Comment on above: Result Comment: T [...] [facility] Performed By: #### 2 99493 #### [facility],[address] [place] [address] PROTHROMBIN TIME AND INR Normal [facility] Comment on above: Result Comment: PROT HROMBIN TIME AND INR Performed By: #### 2 12779 #### [address] [address] PT-COUMADIN 12.6 sec Normal 9.3 - 14.1 [facility] Comment on above: Performed By: #### 2 02962 #### [facility],[address] [place] [address] PT and aPTT panel Coag (PPP) on 03-03-2025 aPTT Coag (PPP) [Time] 20 s Low 26-36 [facility] Comment on above: Order Comment: The A PTT is no longer used for monitoring Unfractionated Heparin Therapy. For monitoring Heparin Therapy, use the Heparin Assay. Performed By: #### 3 4529-8 ####CALE Roth ([id number])[facility] ([facility])[address] [place] [address] 87165 INR Coag (PPP) [Relative time] 1.2 High 0.9-1.1 [facility] Comment on above: Order Comment: The A PTT is no longer used for monitoring Unfractionated Heparin Therapy. For monitoring Heparin Therapy, use the Heparin Assay. Performed By: #### 3 4529-8 ####CALE Roth ([id number])[facility] ([facility])[address] [place] [address]3009 PT Coag (PPP) [Time] 12.8 s High 9.8-12.4 [facility] Comment on above: Order Comment: The A PTT is no longer used for monitoring Unfractionated Heparin Therapy. For monitoring Heparin Therapy, use the Heparin Assay. Performed By: #### 3 4529-8 ####CALE Roth ([id number])[facility] ([facility])[address] [place] [address] 13293 Renal function 2000 panelon 03-03-2025 Phosphate [Mass/Vol] 2.9 mg/dL Normal 2.5-4.9 [facility] Comment on above: Performed By: #### 2 4362-6 ####CALE Roth ([id number])[facility] ([facility])[address] [place] [address] 93408 SEDRATEon 03-03-2025 SEDRATE 2 mm/hr Normal 0 - 30 [facility] Comment on above: Performed By: #### 2 43602 #### [facility],[address] [place] [address] Urinalysis complete W Reflex Culture panel (U)on 03-03-2025 Appearance (U) Clear Normal Clear [facility] Comment on above: Performed By: #### 5 8077-9 ####CALE Roth ([id number])[facility] ([facility])[address]66 [place] [address] Bilirubin (U) [Mass/Vol] Negative Normal NEGATIVE [facility] Comment on above: Performed By: #### 5 8077-9 ####CALE CAI L ([id number])[facility] ([facility])[address]209 [place] [address] Color (U) Light-Yellow Normal Light-Yello w, Yellow, Dark-Yellow [facility] Comment on above: Performed By: #### 5 8077-9 ####CALE Roth ([id number])[facility] ([facility])[address] [place] [address]222 Glucose Auto test strip (U) [Mass/Vol] 50 (TRACE) Abnormal Normal [facility] Comment on above: Performed By: #### 5 8077-9 ####CALE TOSCANOMOISAURA L ([id number])[facility] ([facility])[address]22 [place] [address] Ketones (U) [Mass/Vol] 10 (1+) Abnormal NEGATIVE [facility] Comment on above: Performed By: #### 5 8077-9 ####CALE CAI L ([id number])[facility] ([facility])[address]32 [place] [address] Leukocyte esterase Auto test strip Ql (U) Negative Normal NEGATIVE [facility] Comment on above: Performed By: #### 5 8077-9 ####CALE CAI L ([id number])[facility] ([facility])59182 [place] [address] Nitrite Auto test strip Ql (U) Negative Normal NEGATIVE [facility] Comment on above: Performed By: #### 5 8077-9 ####CALE CAI L ([id number])[facility] ([facility])[address]30 [place] [address] pH (U) 7.0 [pH] Normal 5.0, 5.5, 6.0, 6.5, 7.0, 7.5, 8.0 [facility] Comment on above: Performed By: #### 5 8077-9 ####CALE Roth ([id number])[facility] ([facility])16662 [place] [address] Protein (U) [Mass/Vol] Negative Normal NEGATIVE, 10 (TRACE), 20 (TRACE) [facility] Comment on above: Performed By: #### 5 8077-9 ####CALE RUTLEDGEER L ([id number])[facility] ([facility])[address] [place] [address] 76301 RBC (U) [#/Vol] Negative Normal NEGATIVE [facility] Comment on above: Performed By: #### 5 8077-9 ####CALE Roth ([id number])[facility] ([facility])[address] [place] [address] 92785 Specific gravity (U) [Rel density] 1.040 Normal 1.005-1.035 [facility] Comment on above: Performed By: #### 5 8077-9 ####CALE CAI L ([id number])[facility] ([facility])[address]76 [place] [address] Urobilinogen (U) [Mass/Vol] Normal Normal Normal [facility] Comment on above: Performed By: #### 5 8077-9 ####CALE CAI L ([id number])[facility] ([facility])[address]13 [place] [address] VERAB/VERIFY ABORHon 025 ABO group Nom (Bld) B Normal [facility] Comment on above: Order Comment: Thi s is for confirming/verifying history of ABORh on file for transfusion of blood products. If this is not for transfusion, please order an ABO/RH [[id number]]. If you have any questions or unsure what to order, please call the blood bank. Performed By: #### V ERAB ####CALE Roth ([id number])[facility] ([facility])[address] [place] [address] D Ag Ql (Bld) Positive Normal [facility] Comment on above: Order Comment: Thi s is for confirming/verifying history of ABORh on file for transfusion of blood products. If this is not for transfusion, please order an ABO/RH [[id number]]. If you have any questions or unsure what to order, please call the blood bank. Performed By: #### V ERAB ####CALE Roth ([id number])[facility] ([facility])[address] [place] [address] XR ABDOMEN 1 VIEWon 03-03-20 XR ABDOMEN 1 VIEW Normal [facility] XR CHEST 1 VIEWon 03-03-2025 XR CHEST 1 VIEW Normal [facility] Vital Signs Date Time Vital Sign Value Performing Clinician Facility 04-26-2025 15:48-0500 Body temperature 97.5 [degF] Luis Angel Saini MD Work Phone: [facility] 04-26-2025 15:48-0500 Diastolic blood pressure 75 mm[Hg] Luis Angel Saini MD Work Phone: [facility] 04-26-2025 15:48-0500 Heart rate 102 /min Luis Angel Saini MD Work Phone: [facility] 04-26-2025 15:48-0500 Respiratory rate 17 /min Luis Angel Saini MD Work Phone: [facility] 04-26-2025 15:48-0500 SaO2% (BldA) [Mass fraction] 97 % Luis Angel Saini MD Work Phone: [facility] 04-26-2025 15:48-0500 Systolic blood pressure 108 mm[Hg] Luis Angel Saini MD Work Phone: [facility] 04-21-2025 13:43-0400 Body height 160 cm Luis Angel Saini MD Work Phone: [facility] 04-21-2025 13:43-0400 Body mass index (BMI) [Ratio] 17.19 kg/m2 Luis Angel Saini MD Work Phone: [facility] 04-21-2025 13:43-0400 Body weight 44 kg Luis Angel Saini MD Work Phone: [facility] 04-21-2025 13:39-0400 Body temperature 37.0 Luis Angel Saini MD Work Phone: [facility] Comment on above: NOTE: Patient Results are Not Corrected for Temperature 04-21-2025 13:36-0400 Body temperature 37.0 degrees Celsius [facility] Comment on above: Result Comment: NOTE: Patient Results ar e Not Corrected for Temperature Performed By: #### 2 4339-4 ####CALE Roth ([id number])[facility] ([facility])[address] [place] [address] 03-25-2025 21:20-0400 Body temperature [facility] Comment on above: Result Comment: NOTE: Patient Results ar e Not Corrected for Temperature Performed By: #### 9 3685-6 ####CALE Roth ([id number])[facility] ([facility])[address] [place] [address] 03-25-2025 21:20-0400 SaO2% (BldA) [Mass fraction] 100 % [facility] Comment on above: Performed By: #### 52299-3 ####CALE Roth ([id number])[facility] ([facility])[address] [place] [address] 03-22-2025 14:45-0400 Body temperature 37.0 degrees Celsius [facility] Comment on above: Result Comment: NOTE: Patient Results ar e Not Corrected for Temperature Performed By: #### 9 3685-6 ####CALE CAI L ([id number])[facility] ([facility])[address] [place] [address] 12685 03-22-2025 14:45-0400 SaO2% (BldA) [Mass fraction] 100 % [facility] Comment on above: Performed By: #### 20032-7 ####CALE RUTLEDGEER L ([id number])[facility] ([facility])[address] [place], [place] [address] 03-18-2025 03:12-0400 Body temperature [facility] Comment on above: Result Comment: NOTE: Patient Results ar e Not Corrected for Temperature Performed By: #### 9 3685-6 ####CALE CAI L ([id number])[facility] ([facility])[address] [place] [address] 03-18-2025 03:12-0400 SaO2% (BldA) [Mass fraction] 100 % [facility] Comment on above: Performed By: #### 33085-5 ####CALE CAI L ([id number])[facility] ([facility])[address] [place] [address] 03-17-2025 14:13-0400 Body temperature [facility] Comment on above: Result Comment: NOTE: Patient Results ar e Not Corrected for Temperature Performed By: #### 9 3685-6 ####CALE RUTLEDGEER L ([id number])[facility] ([facility])[address] [place] [address]678 03-17-2025 14:13-0400 SaO2% (BldA) [Mass fraction] 99 % [facility] Comment on above: Performed By: #### 08645-4 ####CALE RUTLEDGEER L ([id number])[facility] ([facility])[address] [place] [address] 71110 03-15-2025 15:01-0400 Body temperature 37.0 degrees Celsius [facility] Comment on above: Performed By: #### 67996-8 ####CALE Roth ([id number])[facility] ([facility])[address] [place] [address] 03-15-2025 15:01-0400 SaO2% (BldA) [Mass fraction] 99 % [facility] Comment on above: Performed By: #### 20205-9 ####CALE Roth ([id number])[facility] ([facility])[address] [place] [address] 03-15-2025 12:54-0400 Body temperature 37.0 degrees Celsius [facility] Comment on above: Result Comment: NOTE: Patient Results ar e Not Corrected for Temperature Performed By: #### 9 3685-6 ####CALE Roth ([id number])[facility] ([facility])[address] [place] [address] 03-15-2025 12:54-0400 SaO2% (BldA) [Mass fraction] 100 % [facility] Comment on above: Performed By: #### 80565-0 ####CALE Roth ([id number])[facility] ([facility])[address] [place] [address] 03-15-2025 12:33-0400 Body temperature 37.0 degrees Celus [facility] Comment on above: Performed By: #### 90737-9 ####CALE Roth ([id number])[facility] ([facility])[address] [place] [address] 03-15-2025 12:33-0400 SaO2% (BldA) [Mass fraction] 100 % [facility] Comment on above: Performed By: #### 64698-4 ####CALE Roth ([id number])[facility] ([facility])[address] [place] [address] 03-15-2025 09:52-0400 Body temperature 37.0 degrees Celus [facility] Comment on above: Result Comment: NOTE: Patient Results ar e Not Corrected for Temperature Performed By: #### 9 3685-6 ####CALE Roth ([id number])[facility] ([facility])[address] [place], [place] [address] 03-15-2025 09:52-0400 SaO2% (BldA) [Mass fraction] 100 % [facility] Comment on above: Performed By: #### 59441-8 ####CALE Roth ([id number])[facility] ([facility])[address] [place], [place] [address] 03-15-2025 09:45-0400 Body temperature 37.0 degrees Celsius [facility] Comment on above: Result Comment: NOTE: Patient Results ar e Not Corrected for Temperature Performed By: #### 9 3685-6 ####CALE Roth ([id number])[facility] ([facility])[address] [place] [address] 03-15-2025 09:45-0400 SaO2% (BldA) [Mass fraction] 100 % [facility] Comment on above: Performed By: #### 16285-3 ####CALE Roth ([id number])[facility] ([facility])[address] [place], [place] [id number] 03-06-2025 05:08-0400 Body temperature 37.0 degrees Celsius [facility] Comment on above: Performed By: #### 54533-8 ####CALE Roth ([id number])[facility] ([facility])[address] [place], [place] [address] 03-06-2025 05:08-0400 SaO2% (BldA) [Mass fraction] 100 % [facility] Comment on above: Performed By: #### 91404-1 ####CALE Roth ([id number])[facility] ([facility])[address] [place], [place] [address] 03-06-2025 04:14-0400 Body temperature 37.0 degrees Celsius [facility] Comment on above: Performed By: #### 66901-9 ####CALE CAI L ([id number])[facility] ([facility])[address] [place], [place] [address] 03-06-2025 04:14-0400 SaO2% (BldA) [Mass fraction] 96 % [facility] Comment on above: Performed By: #### 79294-3 ####CALE CAI L ([id number])[facility] ([facility])[address] [place] [address] 03-06-2025 03:47-0400 Body temperature 37.0 degrees Celus [facility] Comment on above: Performed By: #### 19453-1 ####CALE CAI L ([id number])[facility] ([facility])[address] [place] [address] 03-06-2025 03:47-0400 SaO2% (BldA) [Mass fraction] 98 % [facility] Comment on above: Performed By: #### [id number] ####CALE CAI L ([id number])[facility] ([facility])[address] [place], [place] [id number] 03-06-2025 03:25-0400 Body temperature 37.0 degrees Celsius [facility] Comment on above: Performed By: #### [id number] ####CALE CAI L ([id number])[facility] ([facility])[address] [place], [place] [address] 03-06-2025 03:25-0400 SaO2% (BldA) [Mass fraction] 97 % [facility] Comment on above: Performed By: #### [id number] ####CALE CAI L ([id number])[facility] ([facility])[address] [place], [place] [id number] 03-04-2025 11:02-0400 Body temperature 37.0 degrees Celsius [facility] Comment on above: Performed By: #### 63531-8 ####CALE CAI L ([id number])[facility] ([facility])[address] [place] [address] 03-04-2025 11:02-0400 SaO2% (BldA) [Mass fraction] 100 % [facility] Comment on above: Performed By: #### [id number] ####CALE CAI L ([id number])[facility] ([facility])[address] [place] [address] 03-04-2025 09:28-0400 Body temperature 37.0 degrees Celus [facility] Comment on above: Performed By: #### 40598-4 ####CALE CAI L ([id number])[facility] ([facility])[address] [place] [address] 03-04-2025 09:28-0400 SaO2% (BldA) [Mass fraction] 100 % [facility] Comment on above: Performed By: #### 49778-2 ####CALE CAI L ([id number])[facility] ([facility])[address] [place] [address] 03-03-2025 22:36-0400 Body temperature 37.0 degrees Celus [facility] Comment on above: Result Comment: NOTE: Patient Results ar e Not Corrected for Temperature Performed By: #### 2 4339-4 ####CALE Roth ([id number])[facility] ([facility])[address] [place] [address] Encounters Encounter Date Encounter Type Care Provider Facility Start: 05-05-2025 Evaluation and management of inpatient ENZO Vipul HIREN [facility] Start: 05-05-2025 [facility] Start: 05-03-2025 ambulatory Benjy Chi Carlos Facility:[facility] Start: 04-26-2025 End: 05-04-2025 Evaluation and management of inpatient Benjy Chi Carlos Facility:[facility] Start: 04-21-2025 End: 04-26-2025 Evaluation and management of inpatient Luis Angel Saini MD Work Phone: [facility] [place] 4 Comment on above: Altered mental statu s, unspecified altered mental status type (Primary Dx); S/P ACCOUNTS PAYABLE ASSISTANT shunt Start: 04-20-2025 End: 04-20-2025 ambulatory Benjy Chi Carlos Facility:[facility] Start: 04-15-2025 End: 04-15-2025 Subsequent hospital visit by physician [facility] Comment on above: Arrived Start: 04-15-2025 End: 04-15-2025 ambulatory [facility] Start: 04-08-2025 End: 04-08-2025 ambulatory Yessenia Dixon Facility:[facility] Start: 04-07-2025 End: 04-21-2025 Evaluation and management of inpatient Benjy Chi Carlos Facility:[facility] Start: 04-01-2025 End: 04-07-2025 ambulatory YESSENIA LOU [facility] Start: 03-04-2025 End: 03-04-2025 Evaluation and management of inpatient [facility] Start: 03-03-2025 End: 03-31-2025 Evaluation and management of inpatient [facility] Start: 03-03-2025 End: 03-03-2025 Emergency department patient visit JAMES LOU COVERDAPOLLY [facility] Procedures Date Procedure Procedure Detail Performing [...] head/brain w/o contrast material Yesenia Shelby Parish DESIGNER WRITER-RUBBER INSULATOR Work Phone: Start: 04-23-2025 Glucose quantitative blood [...] 04-21-2025 End: 04-21-2025 Chloride bld Diandra Valdez DESIGNER WRITER-RUBBER INSULATOR Work Phone: Start: 04-15-2025 Study Interpretation of outside study Rajani Lord MD Work Phone: Start: 03-23-2025 Esophagogastroduodenoscopy NAVDEEP PALENCIA Plan of Treatment Date Care Activity Detail Author Start: 2052 Zoster Vaccines (1 o f 2) Zoster Vaccines (1 of 2) [facility] Start: 05-03-2025 End: 04-26-2026 CT Head WO contrast CT head wo IV contrast Imaging Routine S/P ACCOUNTS PAYABLE ASSISTANT shunt Expected: 05/03/2025, Expires: 04/26/2026 [facility] Work Phone: Comment on above: Expected: 05/03/2025 , Expires: 04/26/2026 Start: 04-23-2025 End: 04-23-2025 Patient encounter procedure 04/23/2025 10:00 AM EDT Office Visit [facility] [address] [place] [id number] Damien Hart, DESIGNER WRITER-RUBBER INSULATOR [address] Department [place] [address] [facility] Start: 02-22-2025 COVID-19 Vaccine ( season) COVID-19 Vaccine ( season) [facility] Start: 01-22-2025 Influenza vaccination Influenza Vacc ine (#1) [facility] Start: 2024 DTaP/Tdap/Td Vaccine s (1 - Tdap) DTaP/Tdap/Td Vaccines (1 - Tdap) [facility] Start: 2023 Screening for malign ant neoplasm of cervix [facility] Start: 2021 Hepatitis B Vaccines (1 of 3 - 19+ 3-dose series) Hepatitis B Vaccines (1 of 3 - 19+ 3-dose series) [facility] Start: 2020 Hepatitis C screening Hepatitis C Sc [facility] Start: 2018 Meningococcal B Vacc ine (1 of 2 - Standard) Meningococcal B Vaccine (1 of 2 - Standard) [facility] Start: 2017 HPV Vaccines (1 - 3-dose series) HPV Vaccines (1 - 3-dose series) [facility] Start: 2003 MMR Vaccines (1 of 1 - Standard series) MMR Vaccines (1 of 1 - Standard series) [facility] Start: 2002 HIV screening HIV Screening [facility] Start: 2002 Lipid panel Lipid Panel [facility] Start: 2002 Yearly Adult Physical Yearly Adult P hysical [facility] Electrocardiogram, 12-lead PRN ACS symptoms Electrocardiogram, 12-lead PRN ACS symptoms ECG Routine As needed until discontinued starting 04/21/2025 [facility] Work Phone: Comment on above: As needed until disc ontinued starting 04/21/2025 Glucose [Mass/volume ] in Serum or Plasma POCT Glucose Point of Care Testing - Docked Device Routine Every 6 hours (Lab) until discontinued starting 04/22/2025, 18 completed [facility] Work Phone: Comment on above: Every 6 hours (Lab) until discontinued starting 04/22/2025, 18 completed End: 04-21-2025 Incentive spirometry Instruct Incentive spirometry Instruct Respiratory Care Routine Once for 1 Occurrences starting 04/21/2025 until 04/21/2025 [facility] Work Phone: Comment on above: Once for 1 Occurrenc es starting 04/21/2025 until 04/21/2025 Payers Date Payer Category Payer Unknown 2025 Unknown 0 2025 Self-pay 2025 Unknown [id number] 2024 Managed Care (Private) 1.2.8 [id number] 2024 Unknown [id number] 2002 Unknown [id number] 2.16.8 [id number] 2002 Unknown [id number] 2.16.8 [id number] 2002 Unknown [id number] 2.16. [id number] 2002 Unknown [id number] 2.16. [id number] 2002 Unknown [id number] 2.16. [id number] 2002 Unknown [id number] 2.16. [id number] 2002 Unknown [id number] 2.16. [id number] 2002 Unknown [id number] 2.16. 840.1.372653.3.579.2.1245 2002 Unknown [id number] 2.16. [id number] Unknown [id number] Unknown [id number] 2.16.8 [id number] Unknown [id number] 2.16.8 [id number] Unknown [id number] 2.16.8 [id number] Unknown [id number] 2.16.8 [id number] Unknown [id number] 2.16.8 [id number] Social History Date Type Detail Facility Start: 03-04-2025 [facility] Start: 03-04-2025 Tobacco use and exposure Smokeless tobacco non-user [facility] Work Phone: Start: 04-01-2025 End: 04-21-2025 Alcoholic beverage intake Defer [facility] Work Phone: Start: 03-04-2025 End: 04-21-2025 History of Social function [facility] Start: 03-04-2025 End: 04-21-2025 Tobacco use panel [facility] Within the last year , have you been afraid of your partner or ex-partner? Patient unable to answer [facility] Work Phone: In the past 12 month s, was there a time when you were not able to pay the mortgage or rent on time? No [facility] Work Phone: Start: 2002 Sex assigned at Not on file [facility] Work Phone: Start: 03-03-2025 Sex Female (finding) [facility] Medical Equipment Procedure Code Equipment Code Equipment Origin al Text Equipment Identifier Dates Graft, Duramatri x On-Lay Collagen 4 X 5 - [id number] Start: 03-04-2025 Graft, Duramatri x On-Lay Collagen 4 X 5 - [id number] Start: 03-15-2025 Implant, Crainia l, Medpor Sheet Mtb 76 X 50 X 1.6mm - [id number] Start: 03-04-2025 Clip, Aneurysm, Yasargil, Mini, Straight, 5 Mm, Titanium - [id number] - [id number] Start: 03-15-2025 Valve, Certas Pl us, W/O Siphonguard - Sn/A - [id number] Start: 03-22-2025 Tasley, Rickh am, Large - Sna - [id number] Start: 03-22-2025 Catheter, Distal Peritoneal, Barium, Open End - Sna - [id number] Start: 03-22-2025 Screw, 1.5 X 4 H t Sd Xdr - Sn/A - [id number] Start: 03-04-2025 5 Mm [id number] [...] Functional Status Date Assessment Result Facility 04-21-2025 [facility] Work Phone: 04-21-2025 Total score [AUDIT-C] -1 025 10:10 PM Yue Almeida RN [facility] Work Phone: 04-21-2025 Functional status [facility] Work Phone: 04-21-2025 Functional status 1 [facility] Work Phone: 04-21-2025 [facility] Work Phone: 04-21-2025 [facility] 04-21-2025 Functional status [facility] Work Phone: [facility] Clinical Notes 04-07-2025 to 05-05-2025 Hilda Rico, DESIGNER WRITER-RUBBER INSULATOR - 04/26/2025 1:31 PM ESTDischarge InstructionsAttachIgor John, PT - 04/26/2025 11:20 AM Carmine [place], RN - 04/25/2025 12:00 PM EST Note Date & Type Note Facility 05-05-2025 Note [facility] Medical Records Department [address] [place] [address] Discharge Summary 05/05/25 0744 MR#: [id number] Acct: [id number] Name: KIMANI COHEN Rep #: [id number] : 2000 24 From: Benjy Gonzalez MD PCP: Dr. 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 Medications at Discharge Home Medications B complex-vitamin C-folic acid ER 400 mcg tablet,extended release 1 tab PO DAILY supplement 04/07/25 acetaminophen 325 mg/10.15 mL oral solution 650 mg feeding tube Q6H PRN pain (scale score 1-10) 04/07/25 amantadine HCl 50 mg/5 mL oral solution 100 mg feeding tube BID involuntary movement 04/07/25 bisacodyl 10 mg rectal suppository 10 mg MO DAILY PRN constipation 04/07/25 carboxymethylcellulose sodium 1 [...] below past med (more content not included)... [facility] 04-26-2025 Note [facility] Medical Records Department [address] [place] [address] History Physical Exam 04/26/252025 MR#: [id number] Acct: [id number] Name: KIMANI COHEN Rep #: [id number] : 2000 24 From: Benjy Gonzalez MD PCP: Dr. Yesesnia Dixon MD Status:ADM IN Location: TCU [facility]- HPI - General General Date of Admission: 04/26/25 Date of Service: 04/26/25 Chief Complaint: Here for rehabilitation. HPI Narrative KIMANI COHEN, is a 24 F who presents with following: TCU resident ruptured aneurysm, ACCOUNTS PAYABLE ASSISTANT shunt, PEG. 04/20/2025 Change in mental status, lack of progression in therapy. CT head showed slit like ventricles c/w overshunting. 04/20/2025 Admit to [facility]. 04/21/2025 Certas shunt dialed from 1 [...] strengthening, prior to discharge home with family. [facility] Medical History (Updated 04/26/25 @ 20:34 by [...] bisacodyl 10 mg rectal suppository 10 mg MO DAILY PRN constipation 04/07/25 Unknown History carboxymethylcellulose [...] nasal discharge Cardiovascul (more content not included)... [facility] 04-26-2025 Hospital course Narrative Discharge Diagnosis [...] 03/18 with severe posterior circulation spasm s/p FIRE HYDRANT MECHANIC to L FUEL CELL ENGINEER and basilar, 10 IA verapamil to L vert, mild b/l ICA spasm. Repeat MRI brain with patchy areas of restricted diffusion along the posteromedial bilateral cerebellar hemispheres and in the superior anterior left cerebellar hemisphere. Patient ultimately required RO VPS (Certas at 1) on 03/22 follow by PEG on 03/23. She was discharged to acute rehab 03/31. Patient returned to the [facility] ED 04/21 with decline in neuro [...] of diagnostic testing. documented in this encounter [facility] Work Phone: 04-26-2025 Hospital Discharge instructions KRISTINA Cruz - 04/26/2025 11:50 AM EST Wash incision DAILY with baby shampoo and water, pat dry, no scrubbing and leave open to air Apply a small amount of Bacitracin to Cranial surgical incision Obtain CT head in one week prior to follow up visit in one week -- May obtain CT head closer to [facility] facility. --Follow up with Neurosurgery in one week (you will be contacted for an appointment time). This may be a virtual visit The following attachments cannot be sent through Care Everywhere.STROKE OVERVIEW HANDOUTEnteral Feeding (Stateless)documented in this encounter [facility] Work Phone: 04-26-2025 History of Present illness Narrative Physical Therapy Therapy Communication Note Patient Name: Kimani Cohen Department: Room: [address] [place] [address] Today's Date: 04/26/2025 Discipline: Physical Therapy PT [...] for updates. Jacy [place] RN, BSN Transitional Mercerizer Kimani Cohen is a 24 y.o. female [...] angio w severe posterior circulation spasm s/p FIRE HYDRANT MECHANIC to L FUEL CELL ENGINEER and basilar, 10 IA verapamil to L [...] Name: Kimani Cohen Today's Date: 04/24/2025 Room: [address] [place] [address] Time Calculation Start Time: 1015 Stop Time: [...] Strengths: Support of extended family/friends, Support of congregational community, Premorbid level of function Barriers to Participation: Comorbidities, Ability to acquire knowledge, Insight into problems Subjective Current Problem: 1. Altered mental status, unspecified altered mental status type 2. S/P ACCOUNTS PAYABLE ASSISTANT shunt General: Reason for Referral: ACCOUNTS PAYABLE ASSISTANT shunt overdrainage Past Medical History Relevant to [...] and grocery shopping Prior Function: Level of [place]: Independent with ADLs and functional transfers, Independent [...] Exceptions to WFL, , and Outcome Measures: [facility] Daily Activity Putting on and taking off [...] 2:45 PM Mahesh Cline OT Rehab Office: [phone] Kimani Cohen is a 24 y.o. female [...] angio w severe posterior circulation spasm s/p FIRE HYDRANT MECHANIC to L FUEL CELL ENGINEER and basilar, 10 IA verapamil to L [...] Therapy Treatment Patient Name: Kimani Cohen Department: [place] [address] Room: [address] [place] [address]- Today's Date: 04/23/2025 Time Calculation Start Time: [...] bed prior to transfer attempts) Outcome Measures: [facility] Basic Mobility Turning from your back to [...] Patient in OR today. Dispo: return [facility] where she is Private Pay under [employer]. [facility] stated she can come back skilled [...] angio w severe posterior circulation spasm s/p FIRE HYDRANT MECHANIC to L FUEL CELL ENGINEER and basilar, 10 IA verapamil to L [...] Therapy Evaluation and Treatment Patient Name: Kimani Cohne Department: [place] [address] Room: [address] [place] [address] Today's Date: 04/22/2025 Time Calculation Start Time: [...] General Reason for Referral: Patient transferred from [facility] for concerns of patient ACCOUNTS PAYABLE ASSISTANT shunt and possible over drainage. at bedside [...] Prior Function Per Pt/Caregiver Report Level of Cathay: Independent with ADLs and functional transfers, Independent [...] LLE : Within Functional Limits Outcome Measures: [facility] Basic Mobility Turning from your back to [...] mental status type. Pharmacy reviewed the patient's [id number] medications and allergies for accuracy. Medications ADDED: None Medications CHANGED: Carboxymethylcellulose Ophthalmic (change in strength, directions) Lorazepam (change in dose) Medications REMOVED: None The list below reflects the updated FIRE HYDRANT MECHANIC list. Prior to Admission Medications Prescriptions Last [...] at discharge. Sources: [phone] (available under Media) [facility] Care Everywhere Chart Review Medication Dispense History Additional Comments: None to note [facility] Transitions of Care Pharmacist 04/22/25 Secure Chat preferred If no response call [phone] or [phone] [employer] Med Rec Images from the original note [...] angio w severe posterior circulation spasm s/p FIRE HYDRANT MECHANIC to L FUEL CELL ENGINEER and basilar, 10 IA verapamil to L vert, mild b/l ICA spasm, MRI brain patchy areas of restricted diffusion along the posteromedial bilateral cerebellar hemispheres and in the superior anterior left cerebellar hemisphere, 03/21 worsening exam, [facility] incr vents, EVD lowered to 0, 03/22 s/p RO VPS (Certas at 2), RF EVD removal, [facility] catheter in posn, incr vents, shunt dialed to 1, shunt series catheter distal to valve with sharp turn c/f kink, 03/23 s/p PEG, 04/21 p/w worsening exam (not FC x1d), [facility] decr vents. Patient presenting with decline in neuro status over the past few days. Imaging at OSH shows decreased ventricular caliber. Patient certas shunt currently at 1 and likely being over drained. # Hx Hydrocephalus (S/p RO ACCOUNTS PAYABLE ASSISTANT shunt insertion 03/22) - Neuro check q4hrs - Monitor VS/pulse ox O2ddglm - Monitor AM CBC/RFP -Certas dialed down to 3 - CT head this PM 04/22 # Hx of dysphagia - Continue Isosource 1.5 TF @ 45cc/hr - Consult Layout Man Prophylaxis: - DVT: SQ heparin E2mcngi, SCDs, encourage ambulation - Encourage IS x10 [...] and Dr. Clair Flores CNP Neurologic Surgery Christine Team Pager #[phone] Total face to face time spent with [...] is an 24 y.o. female presenting for ACCOUNTS PAYABLE ASSISTANT shunt concern. Imaging from the outside hospital [...] status, unspecified altered mental status type S/P ACCOUNTS PAYABLE ASSISTANT shunt Disposition As a result of their [...] note as written. documented in this encounter [facility] Work Phone: 04-25-2025 Plan of care note [...] by end of the shift Outcome: Progressing [facility] Work Phone: 04-25-2025 Miscellaneous Notes [...] 03/18 with severe posterior circulation spasm s/p FIRE HYDRANT MECHANIC to L FUEL CELL ENGINEER and basilar, 10 IA verapamil to L vert, mild b/l ICA spasm. Repeat MRI brain with patchy areas of restricted diffusion along the posteromedial bilateral cerebellar hemispheres and in the superior anterior left cerebellar hemisphere. Patient ultimately required RO VPS (Certas at 1) on 03/22 follow by PEG on 03/23. She was discharged to acute rehab 03/31. Patient returned to the [facility] ED 04/21 with decline in neuro [...] 1 to 3 documented in this encounter [facility] Work Phone: 04-25-2025 Plan of care note [...] will remian safer and free from injury. [facility] 04-24-2025 Plan of care note The clinical [...] these barriers include Follow plan of care. [facility] 04-24-2025 Procedure note Certas Shunt Dial Certas shunt was verified to be at 3 with the Codman Certas and Codman Certas Plus shunt press washer. The Shunt was dialed to 4 with the Certas Plus shunt press washer. The setting was checked with the Certas Shunt press washer and the Certas shunt press washer plus to be at 4. Patient tolerated the procedure well. Laura Colunga MD Cosigned by Alfred Self MD at 04/26/2025 12:04 PM EST [facility] Work Phone: 04-24-2025 Procedure note Certas Shunt Dial Certas shunt was verified to be at 3 with the Codman Certas and Codman Certas Plus shunt press washer. The Shunt was dialed to 4 with the Certas Plus shunt press washer. The setting was checked with the Certas Shunt press washer and the Certas shunt press washer plus to be at 4. Patient tolerated the procedure well. Laura Colunga MD Cosigned by Alfred Self MD at 04/26/2025 12:04 PM EST documented in this encounter [facility] Work Phone: 04-23-2025 Plan of care note [...] fall by end of shift Outcome: Progressing [facility] 04-22-2025 Consult note Associated Order (s): IP CONSULT TO NUTRITION SERVICES Nutrition Note Pt is a 24 y.o. year old female patient admitted on 04/21/2025 - referred to Nutrition Services for Admission nursing screening (home tube feed). Nutrition Assessment Recent Events: Pt transferred from [facility] for concerns of patient ACCOUNTS PAYABLE ASSISTANT shunt and possible over drainage. Noted pt [...] baseline Estimated Energy Needs: Total Energy Needs ~8242-5980 kCal/24 hrs Method for Estimating Needs: 35kcal/kg [...] weight and Body weight - Promote weight anabaptism Nutritional Goal Status: New goal(s) identified Follow [...] acid, 1 capsule, g-tube, Daily before breakfast [facility] 04-22-2025 Consult note Associated Order (s): IP CONSULT TO NUTRITION SERVICES Nutrition Note Pt is a 24 y.o. year old female patient admitted on 04/21/2025 - referred to Nutrition Services for Admission nursing screening (home tube feed). Nutrition Assessment Recent Events: Pt transferred from [facility] for concerns of patient ACCOUNTS PAYABLE ASSISTANT shunt and possible over drainage. Noted pt [...] baseline Estimated Energy Needs: Total Energy Needs ~5268-5689 kCal/24 hrs Method for Estimating Needs: 35kcal/kg [...] weight and Body weight - Promote weight anabaptism Nutritional Goal Status: New goal(s) identified Follow [...] angio w severe posterior circulation spasm s/p FIRE HYDRANT MECHANIC to L FUEL CELL ENGINEER and basilar, 10 IA verapamil to L vert, mild b/l ICA spasm, MRI brain patchy areas of restricted diffusion along the posteromedial bilateral cerebellar hemispheres and in the superior anterior left cerebellar hemisphere, 03/21 worsening exam, [facility] incr vents, EVD lowered to 0, 03/22 s/p RO VPS (Certas at 2), RF EVD removal, [facility] catheter in posn, incr vents, shunt dialed to 1, shunt series catheter distal to valve with sharp turn c/f kink, 03/23 s/p PEG, 04/21 p/w worsening exam (not FC x1d), [facility] decr vents Patient transferred from [place] for concerns of patient ACCOUNTS PAYABLE ASSISTANT shunt and possible over drainage. at bedside [...] g, g-tube, 2 times daily sennosides-docusate sodium (Rbitany-Colace) 8.6-50 mg tablet 2 tablets, g-tube, 2 [...] angio w severe posterior circulation spasm s/p FIRE HYDRANT MECHANIC to L FUEL CELL ENGINEER and basilar, 10 IA verapamil to L vert, mild b/l ICA spasm, MRI brain patchy areas of restricted diffusion along the posteromedial bilateral cerebellar hemispheres and in the superior anterior left cerebellar hemisphere, 03/21 worsening exam, [facility] incr vents, EVD lowered to 0, 03/22 s/p RO VPS (Certas at 2), RF EVD removal, [facility] catheter in posn, incr vents, shunt dialed to 1, shunt series catheter distal to valve with sharp turn c/f kink, 03/23 s/p PEG, 04/21 p/w worsening exam (not FC x1d), [facility] decr vents Patient presenting with decline in [...] 3 Jayden Quick MD Department of Neurosurgery [facility] Note authored by resident on neurosurgery team, with all questions [place] [phone] Plan not finalized until note signed by attending [1] No past medical history on file. [2] No past surgical history on file. Cosigned by Alfred Self MD at 04/23/2025 12:40 PM EDT documented in this encounter [facility] Work Phone: 04-22-2025 Plan of care note [...] Skin Goal: Promote skin healing Outcome: Progressing [facility] Work Phone: 04-22-2025 Hospital Note Formatting of [...] 03/18 with severe posterior circulation spasm s/p FIRE HYDRANT MECHANIC to L FUEL CELL ENGINEER and basilar, 10 IA verapamil to L vert, mild b/l ICA spasm. Repeat MRI brain with patchy areas of restricted diffusion along the posteromedial bilateral cerebellar hemispheres and in the superior anterior left cerebellar hemisphere. Patient ultimately required RO VPS (Certas at 1) on 03/22 follow by PEG on 03/23. She was discharged to acute rehab 03/31. Patient returned to the [facility] ED 04/21 with decline in neuro [...] scheduled to follow up as an outpatient. [facility] Work Phone: 04-21-2025 History and physical note [...] angio w severe posterior circulation spasm s/p FIRE HYDRANT MECHANIC to L FUEL CELL ENGINEER and basilar, 10 IA verapamil to L vert, mild b/l ICA spasm, MRI brain patchy areas of restricted diffusion along the posteromedial bilateral cerebellar hemispheres and in the superior anterior left cerebellar hemisphere, 03/21 worsening exam, CT incr vents, EVD lowered to 0, 03/22 s/p RO VPS (Certas at 2), RF EVD removal, [facility] catheter in posn, incr vents, shunt dialed to 1, shunt series catheter distal to valve with sharp turn c/f kink, 03/23 s/p PEG, 04/21 p/w worsening exam (not FC x1d), [facility] decr vents Patient transferred from [place] for concerns of patient ACCOUNTS PAYABLE ASSISTANT shunt and possible over drainage. at bedside [...] vents incr, EVD dropped to 7, 03/18 [facility] incr'd vents, EVD lowered to 5, 03/18 s/p angio w severe posterior circulation spasm s/p FIRE HYDRANT MECHANIC to L FUEL CELL ENGINEER and basilar, 10 IA verapamil to L vert, mild b/l ICA spasm, MRI brain patchy areas of restricted diffusion along the posteromedial bilateral cerebellar hemispheres and in the superior anterior left cerebellar hemisphere, 03/21 worsening exam, [facility] incr vents, EVD lowered to 0, 03/22 s/p RO VPS (Certas at 2), RF EVD removal, [facility] catheter in posn, incr vents, shunt dialed to 1, shunt series catheter distal to valve with sharp turn c/f kink, 03/23 s/p PEG, 04/21 p/w worsening exam (not FC x1d), [facility] decr vents Patient presenting with decline in [...] Self MD at 04/23/2025 12:41 PM EDT [facility] Work Phone: 04-21-2025 History and physical note [...] angio w severe posterior circulation spasm s/p FIRE HYDRANT MECHANIC to L FUEL CELL ENGINEER and basilar, 10 IA verapamil to L [...] x1d), [facility] decr vents Patient transferred from [place] for concerns of patient ACCOUNTS PAYABLE ASSISTANT shunt and possible over drainage. at bedside [...] angio w severe posterior circulation spasm s/p FIRE HYDRANT MECHANIC to L FUEL CELL ENGINEER and basilar, 10 IA verapamil to L vert, mild b/l ICA spasm, MRI brain patchy areas of restricted diffusion along the posteromedial bilateral cerebellar hemispheres and in the superior anterior left cerebellar hemisphere, 03/21 worsening exam, [facility] incr vents, EVD lowered to 0, 03/22 s/p RO VPS (Certas at 2), RF EVD removal, [facility] catheter in posn, incr vents, shunt dialed to 1, shunt series catheter distal to valve with sharp turn c/f kink, 03/23 s/p PEG, 04/21 p/w worsening exam (not FC x1d), [facility] decr vents Patient presenting with decline in [...] 12:41 PM EDT documented in this encounter [facility] Work Phone: 04-21-2025 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 Yessenia Dixon MD Status:DIS IN Location: [place] [address] Providers Date of Admission: 04/07/25 Primary Care [...] bisacodyl 10 mg rectal suppository 10 mg MO DAILY PRN constipation 04/07/25 carboxymethylcellulose sodium 1 [...] but showed overshunt (more content not included)... [facility] 04-21-2025 Consult note Associated Order (s): [...] angio w severe posterior circulation spasm s/p FIRE HYDRANT MECHANIC to L FUEL CELL ENGINEER and basilar, 10 IA verapamil to L [...] x1d), [facility] decr vents Patient transferred from [place] for concerns of patient ACCOUNTS PAYABLE ASSISTANT shunt and possible over drainage. at bedside [...] residual AVM, diffuse posterior circulation spasm, 03/16 [facility] vents incr, EVD dropped to 7, 03/18 [facility] incr'd vents, EVD lowered to 5, 03/18 s/p angio w severe posterior circulation spasm s/p FIRE HYDRANT MECHANIC to L FUEL CELL ENGINEER and basilar, 10 IA verapamil to L vert, mild b/l ICA spasm, MRI brain patchy areas of restricted diffusion along the posteromedial bilateral cerebellar hemispheres and in the superior anterior left cerebellar hemisphere, 03/21 worsening exam, [facility] incr vents, EVD lowered to 0, 03/22 s/p RO VPS (Certas at 2), RF EVD removal, [facility] catheter in posn, incr vents, shunt dialed to 1, shunt series catheter distal to valve with sharp turn c/f kink, 03/23 s/p PEG, 04/21 p/w worsening exam (not FC x1d), [facility] decr vents Patient presenting with decline in [...] 3 Jayden Quick MD Department of Neurosurgery [facility] Note authored by resident on neurosurgery team, with all questions [place] [phone] Plan not finalized until note signed by attending [1] No past medical history on file. [2] No past surgical history on file. Cosigned by Alfred Self MD at 04/23/2025 12:40 PM EDT [facility] Work Phone: 04-21-2025 Physician Emergency department Note EMERGENCY DEPARTMENT ENCOUNTER Pt Name: Kimani Cohen Birthdate 2000 Date of evaluation: 04/21/2025 Provider: KRISTINA Connell CHIEF COMPLAINT Chief Complaint Patient presents with Altered Mental Status HISTORY OF PRESENT ILLNESS Kimani Cohen is a 24 y.o. female who presents to the emergency department via EMS as a transfer from [facility] for AV shunt malfunction. Per report they [...] were reviewed. History provided by patient. No manager language used. REVIEW OF SYSTEMS ROS is otherwise [...] presenting for neurosurgery consultation for eval of ACCOUNTS PAYABLE ASSISTANT shunt concern. She is resting comfortably in the ER cart without any difficulty or dyspnea. She is placed on continuous security monitor and pulse oximetry. She is breathing [...] status, unspecified altered mental status type S/P ACCOUNTS PAYABLE ASSISTANT shunt Patient was counseled regarding labs, imaging, likely diagnosis, and plan. All questions were answered. EKG Interpretation: N/A Differential Diagnoses Considered: ACCOUNTS PAYABLE ASSISTANT shunt malfunction, acute intracranial process, seizures Chronic [...] unspecified altered mental status type 2. S/P ACCOUNTS PAYABLE ASSISTANT shunt Diandra Valdez, DESIGNER WRITER-RUBBER INSULATOR This patient was staffed with ED Attending [...] note and agree with the documented findings. [facility] Work Phone: 04-21-2025 Emergency department Note EMERGENCY DEPARTMENT ENCOUNTER Pt Name: Kimani Cohen Birthdate 2000 Date of evaluation: 04/21/2025 Provider: KRISTINA Connell CHIEF COMPLAINT Chief Complaint Patient presents with Altered Mental Status HISTORY OF PRESENT ILLNESS Kimani Cohen is a 24 y.o. female who presents to the emergency department via EMS as a transfer from [facility] for AV shunt malfunction. Per report they [...] were reviewed. History provided by patient. No manager language used. REVIEW OF SYSTEMS ROS is otherwise [...] presenting for neurosurgery consultation for eval of ACCOUNTS PAYABLE ASSISTANT shunt concern. She is resting comfortably in the ER cart without any difficulty or dyspnea. She is placed on continuous security monitor and pulse oximetry. She is breathing [...] status, unspecified altered mental status type S/P ACCOUNTS PAYABLE ASSISTANT shunt Patient was counseled regarding labs, imaging, likely diagnosis, and plan. All questions were answered. EKG Interpretation: N/A Differential Diagnoses Considered: ACCOUNTS PAYABLE ASSISTANT shunt malfunction, acute intracranial process, seizures Chronic [...] unspecified altered mental status type 2. S/P ACCOUNTS PAYABLE ASSISTANT shunt Diandra Valdez, DESIGNER WRITER-RUBBER INSULATOR This patient was staffed with ED Attending [...] Connell 04/21/25 1448 Cosigned by Luis Angel aSini MD at 04/22/2025 10:48 AM EDT Associated [...] in by [facility] as transfer from [facility] for suspected AV shunt malfunction. 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 Per at bedside, pt has declining mental function over the past 2 days, does not respond as much. documented in this encounter [facility] Work Phone: 04-21-2025 Emergency department Triage note 24 yo female brought in by [facility] as transfer from [facility] for suspected AV shunt malfunction. 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 Per at bedside, pt has declining mental function over the past 2 days, does not respond as much. [facility] Work Phone: 04-07-2025 Note [facility] Medical Records Department [address] [place] [address] History Physical Exam 04/07/252021 MR#: [id number] Acct: [id number] Name: KIMANI COHEN Rep #: [id number] : 2000 24 From: Benjy Gonzalez MD PCP: Dr. Yessenia Dixon MD Status:ADM IN Location: [facility] TCU05-1 HPI - General General Date of [...] , and on 03/04 was transferred to [facility] for Neurosurgical management. CTA head/neck completed and EVD was raised to 20. She went to [facility]io[facility] AVM w b/l PICA, AICA, R [...] angio w severe posterior circulation spasm s/p FIRE HYDRANT MECHANIC to L FUEL CELL ENGINEER and basilar, 10 IA verapamil to L vert, mild b/l ICA spasm, MRI brain patchy areas of restricted diffusion along the posteromedial bilateral cerebellar hemispheres and in the superior anterior left cerebellar hemisphere. 03/19 [facility] min decr vents. 03/21 worsening exam, [facility] incr vents, EVD lowered to 0, v[facility] decr vents. 03/22 s/p RO VPS (Certas at 2), RF EVD removal, [facility] POC catheter in posn, incr vents, shunt [...] ordered. PT/OT recommended SNF. 04/01/2025 Admit to [facility] SNF for rehabilitation. 04/07/2025 Admit to [...] bisacodyl 10 mg rectal suppository 10 mg MO DAILY PRN constipation 04/07/25 Unknown History carboxymethylcellulose [...] digestion/nausea metoprolol tartr (more content not included)... [facility] Evaluation note Diagnosis Altered mental status, unspecified altered mental status type- Primary Altered mental status, unspecified altered mental status type S/P ACCOUNTS PAYABLE ASSISTANT shunt Presence of cerebrospinal fluid drainage device documented in this encounter [facility] Work Phone: Advance Directives No Advanced Directives [...] Care Teams (unrecognized sec tion and content) Accounts Receivable Accountant Relationship Specialty Start Date End Date Generic Provider, [place] [address] PCP - General [employer] Program Coordinator 03/03/25 Accounts Receivable Accountant Relationship Specialty Start Date End Date Generic Provider, No [place] [address] PCP - General [employer] Program Coordinator 03/03/25 Reason for Visit (unrecogniz ed section and content) Reason Comments Altered Mental Status Specialty Diagnoses / Procedures Referred By Contac t Referred To Contact Diagnoses Altered mental status, unspecified altered mental status type Procedures [place] [address] [facility] Department [place] [address] Phone: tel: fax: [facility] Emergency Medicine [address] [place] [address] Phone: tel: fax: Referral ID Status Reason Start Date Expiration Date Visits Re quested Visits Authorized [id number] 1 1 Scheduled Active and Recently Administ [...] RN - Reason: Patient/family refused)[id number] ([facility] - Provider: Meseret Cross RN - Comment: [...] at [phone] (Not Given - Provider: Alnaa Hayes RN - Reason: Patient/family refused) [phone] [...] content) DATE CREATED AUTHOR 04/28/2025 [place] [facility] DATE CREATED AUTHOR AUTHOR'S ORGANIZ ATION 05/06/2025 [facility] DATE CREATED AUTHOR AUTHOR'S ORGANIZ ATION 05/06/2025 [facility] DATE CREATED AUTHOR AUTHOR'S ORGANIZ ATION 05/06/2025 [facility] FOR RECORDS PERTAINING TO PATIENTS WHO [...] BE BASED ON THE PRIMARY CLINICAL RECORDS. [employer] [facility]. provides no warranty or guarantee of the accuracy or completeness of information in this document.
--- NOTE | 2025-05-30 18:05 | CT_ITS ---
EXAM: BRAIN/HEAD WITHOUT CONTRAST CLINICAL HISTORY: 25 y/o F with PALACIOS, CHANGE IN COGNITIVE. COMPARISON: Reviewed. TECHNIQUE: Routine CT imaging of the head without IV contrast. Additional multiplanar reformats were obtained. Dose reduction techniques were used including intermediate exposure control (AEC),iterative reconstruction technique, and/or mA and/or KV dose adjustments based on patient's size. FINDINGS: There is craniotomy change in the occipital region with vascular clips and trace amount of air at the surgical site and posterior fossa. Clinical correlation is recommended. There is a shunt in the right with its tip centrally located. There is low-density throughout the midbrain and irene and in the right and left cerebellar hemispheres consistent with diffuse edema, similar to the prior. There is effacement of the basal cisterns. CT/Brain/Head without Contrast IMPRESSION: Stable pathological CT findings when compared to prior exams. No acute intracr anial hemorrhage [facility]
== END | disposition home or self-care (01) ==
LOC: CT 17:20
PROVIDERS: PCP Student in an Organized Health Care Education/Training Program; Referring Provider Family Medicine Geriatric Medicine; Visit Provider Family Medicine Geriatric Medicine
DX: R51.9 Headache, unspecified (principal); R41.89 Other symptoms and signs involving cognitive functions and awareness
CPT/HCPCS: 70450

== ENCOUNTER → 2025-06-08 | Outpatient (CLI) | payer SELFPAY ==
--- NOTE | 2025-06-08 13:25 | CT_ITS ---
PROCEDURE: BRAIN/HEAD WITHOUT CONTRAST 06/08/2025 REASON FOR EXAM: BRAIN SHUNT TECHNIQUE: Procedure Code: CTBR Modality: CT Procedure: BRAIN/HEAD WITHOUT CONTRAST Coronal and Sagittal reconstruction series were provided. One or more dose reduction techniques were used (e.g., Automated exposure control, adjustment of the mA and/or kV according to patient size, use of iterative reconstruction technique. RADIATION DOSE SUMMARY: CTDlvol: 44 mGy DLP: 762 mGycm COMPARISON: 05/30/2025. FINDINGS: Right posterior approach catheter with tip terminating in the region of the 3rd ventricle. Similar low-density within the midbrain and bilateral cerebellar hemispheres with internal postsurgical changes. Posterior craniotomy defect. No evidence of acute hemorrhage or infarction. No extra-axial blood or fluid collections. The paranasal sinuses and mastoid air cells are clear. CT/Brain/Head without Contrast IMPRESSION: No significant interval change. [facility]
== END | disposition home or self-care (01) ==
PROVIDERS: PCP Student in an Organized Health Care Education/Training Program; Referring Provider Family Medicine Geriatric Medicine; Visit Provider Family Medicine Geriatric Medicine
DX: Z98.2 Presence of cerebrospinal fluid drainage device (principal)
CPT/HCPCS: 70450